=== PATIENT | male | born 1940 | race Caucasian/White ===

== ENCOUNTER → 2016-09-18 | Outpatient (REF) | payer MEDICARE, OTHER ==
[~2016-09-18] MED LIST: ALFU10TA2 PO; CRAN125T PO; DOXE25CA PO; FINA5TAB2 PO; LOSA100T PO; METF500T4 PO; MULT1TAB10 PO
== END ==
LOC: M LABDRAWP 15:41 → M LABDRAW1 15:41
PROVIDERS: ATTEND Urology
DX: Z08 Encounter for follow-up examination after completed treatment for malignant neoplasm (principal); Z85.46 Personal history of malignant neoplasm of prostate

== ENCOUNTER → 2016-09-22 | Outpatient (CLI) | payer MEDICARE, BC, OTHER ==
[~2016-09-22] VITALS: Ht 180.3 cm; Wt 103.4 kg
[~2016-09-22] MED LIST changes: +LIDOCAINE 2% INJ 100 MG/5 ML SDV (FOR ANES.) As Ordered ONE; +NS 1,000 ML IV SCH; +PROPOFOL 500 MG/50 ML VIAL As Ordered ONE
--- NOTE | 2016-09-22 08:02 | ROOR ---
Patient Name: Braulio Son Procedure Date: 09/22/2016 7:32 AM Date of : 1940 Age: 75 Room: [facility] Gender: Male Note Status: Finalized Procedure: Colonoscopy to Cecum + Biopsy Polypectomy + APC Indications: Screening for colorectal malignant neoplasm, Last colonoscopy: 2005 Providers: Uday Lawson MD Referring MD: Sergey Braun MD Requesting Provider: Medicines: Monitored Anesthesia Care Complications: No immediate complications. Procedure: Pre-Anesthesia Assessment: - The heart rate, respiratory rate, oxygen saturations, blood pressure, adequacy of pulmonary ventilation, and response to care were monitored throughout the procedure. The Colonoscope was introduced through the anus and advanced to the cecum, identified by appendiceal orifice and ileocecal valve. The colonoscopy was performed without difficulty. The patient tolerated the procedure well. The quality of the bowel preparation was excellent. Findings: The perianal and digital rectal examinations were normal. Non-bleeding internal hemorrhoids were found during retroflexion. The hemorrhoids were small and Grade I (internal hemorrhoids that do not prolapse). Scattered small-mouthed diverticula were found in the recto-sigmoid colon, sigmoid colon and descending colon. Localized moderate inflammation characterized by adherent blood, altered vascularity, erythema and friability was found in the rectum. Coagulation for hemostasis using argon plasma at 0.8 liters/minute and 30 burk was successful. A small polyp was found in the hepatic flexure. The polyp was sessile. The polyp was removed with a jumbo cold forceps. Resection and retrieval were complete. A small polyp was found in the splenic flexure. The polyp was sessile. The polyp was removed with a jumbo cold forceps. Resection and retrieval were complete. A small polyp was found at 30 cm proximal to the anus. The polyp was sessile. The polyp was removed with a jumbo cold forceps. Resection and retrieval were complete. The exam was otherwise without abnormality on direct and retroflexion views. Impression: - Non-bleeding internal hemorrhoids. - Diverticulosis in the recto-sigmoid colon, in the sigmoid colon and in the descending colon. 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 Treated with argon plasma coagulation (APC). - One small polyp at the hepatic flexure, removed with a jumbo cold forceps. Resected and retrieved. - One small polyp at the splenic flexure, removed with a jumbo cold forceps. Resected and retrieved. - One small polyp at 30 cm proximal to the anus, removed with a jumbo cold forceps. Resected and retrieved. - The examination was otherwise normal on direct and retroflexion views. - The exam was otherwise normal to the cecum. Recommendation: - Patient has a contact number available for emergencies. The signs and symptoms of potential delayed complications were discussed with the patient. Return to normal activities tomorrow. Written discharge instructions were provided to the patient. - High fiber diet. - Discharge patient to home. - Continue present medications. - Await pathology results. - Telephone GI clinic for pathology results in 1 week. - Repeat colonoscopy for surveillance based on pathology results. - Return to referring physician. - Check Portal Online for Path Results.([email or web address]) Uday Lawson MD Uday Lawson MD 09/22/2016 8:02:21 AM This report has been signed electronically. Number of Addenda: 0 Note Initiated On: 09/22/2016 7:32 AM Estimated Blood Loss: Estimated blood loss: none.
[2016-09-22 08:15] VITALS: BP 139/72
== END ==
LOC: M OPP 06:47
PROVIDERS: ATTEND Internal Medicine Gastroenterology
DX: Z12.11 Encounter for screening for malignant neoplasm of colon (principal); D12.3 Benign neoplasm of transverse colon; K62.7 Radiation proctitis; K64.0 First degree hemorrhoids; K57.30 Diverticulosis of large intestine without perforation or abscess without bleeding; Z85.46 Personal history of malignant neoplasm of prostate; Z85.51 Personal history of malignant neoplasm of bladder; Z92.3 Personal history of irradiation; E11.9 Type 2 diabetes mellitus without complications; I10 Essential (primary) hypertension; Z79.84 Long term (current) use of oral hypoglycemic drugs; Z79.899 Other long term (current) drug therapy

== ENCOUNTER → 2016-10-07 | Outpatient (REF) | payer MEDICARE, OTHER ==
[~2016-10-07] MED LIST changes: -LIDOCAINE 2% INJ 100 MG/5 ML SDV (FOR ANES.) As Ordered ONE; -NS 1,000 ML IV SCH; -PROPOFOL 500 MG/50 ML VIAL As Ordered ONE
[2016-10-07 12:03] LABS: MEAN CORPUSCULAR HEMOGLOBIN 30.8 pg (27.0-33.0); MEAN CORPUSCULAR HGB CONC 34.1 g/dl (32.0-36.5); MEAN CORPUSCULAR VOLUME 90.2 fl (80.0-96.0); RED CELL DISTRIBUTION WIDTH 14.5 % (11.5-14.5); WHITE BLOOD COUNT 3.3 K/mm3 (4.0-10.0)
[2016-10-07 12:29] LABS: ALBUMIN 3.2 GM/DL (3.2-5.2); ALBUMIN/GLOBULIN RATIO 0.84 (1.00-1.93); ALKALINE PHOSPHATASE 74 U/L (45-117); ALT/SGPT 39 U/L (12-78); ANION GAP 9 MEQ/L (8-16); AST/SGOT 46 U/L (15-37); BILIRUBIN,TOTAL 0.7 MG/DL (0.2-1.0); BLOOD UREA NITROGEN 21 MG/DL (7-18); CALCIUM LEVEL 9.7 MG/DL (8.8-10.2); CARBON DIOXIDE LEVEL 25 MEQ/L (21-32); CHLORIDE LEVEL 107 MEQ/L (98-107); CREATININE FOR GFR 1.08 MG/DL (0.70-1.30); GLOMERULAR FILTRATION RATE > 60.0 (>42); GLUCOSE, FASTING 141 MG/DL (83-110); POTASSIUM SERUM 3.8 MEQ/L (3.5-5.1); SODIUM LEVEL 141 MEQ/L (136-145)
== END ==
LOC: M SFHCPLAZ 09:03
PROVIDERS: ATTEND Internal Medicine
DX: D69.6 Thrombocytopenia, unspecified (principal); I10 Essential (primary) hypertension; E11.29 Type 2 diabetes mellitus with other diabetic kidney complication

== ENCOUNTER → 2017-04-09 | Outpatient (REF) | payer MEDICARE, OTHER ==
[~2017-04-09] MED LIST changes: -LOSA100T PO; +LOSA100T8 PO
[2017-04-09 12:01] LABS: MEAN CORPUSCULAR HEMOGLOBIN 30.6 pg (27.0-33.0); MEAN CORPUSCULAR HGB CONC 34.1 g/dl (32.0-36.5); MEAN CORPUSCULAR VOLUME 89.6 fl (80.0-96.0); RED CELL DISTRIBUTION WIDTH 13.9 % (11.5-14.5); WHITE BLOOD COUNT 3.1 10^3/uL (4.0-10.0)
[2017-04-09 12:08] LABS: PLATELET COUNT, AUTOMATED 85 10^3/uL (150-450)
[2017-04-09 12:09] LABS: IMMATURE PLATELET FRACTION % 7.2 % (0.0-10.9)
[2017-04-09 12:30] LABS: ALBUMIN 3.4 GM/DL (3.2-5.2); ALBUMIN/GLOBULIN RATIO 0.94 (1.00-1.93); ALKALINE PHOSPHATASE 61 U/L (45-117); ALT/SGPT 36 U/L (12-78); ANION GAP 7 MEQ/L (8-16); AST/SGOT 33 U/L (7-37); BILIRUBIN,TOTAL 0.8 MG/DL (0.2-1.0); BLOOD UREA NITROGEN 20 MG/DL (7-18); CALCIUM LEVEL 10.1 MG/DL (8.8-10.2); CARBON DIOXIDE LEVEL 27 MEQ/L (21-32); CHLORIDE LEVEL 107 MEQ/L (98-107); CHOLESTEROL LEVEL 163 MG/DL (<200); CREATININE FOR GFR 1.03 MG/DL (0.70-1.30); GLOMERULAR FILTRATION RATE > 60.0 (>42); GLUCOSE, FASTING 140 MG/DL (83-110); MAGNESIUM LEVEL 1.8 MG/DL (1.8-2.4); POTASSIUM SERUM 3.9 MEQ/L (3.5-5.1); SODIUM LEVEL 141 MEQ/L (136-145); TRIGLYCERIDES LEVEL 103 MG/DL (<150)
== END ==
LOC: M SFHCPLAZ 08:55
PROVIDERS: ATTEND Internal Medicine
DX: D69.6 Thrombocytopenia, unspecified (principal); E11.29 Type 2 diabetes mellitus with other diabetic kidney complication; I10 Essential (primary) hypertension; E78.00 Pure hypercholesterolemia, unspecified

== ENCOUNTER → 2017-09-29 | Outpatient (REF) | payer MEDICARE, OTHER ==
[2017-09-29 12:43] LABS: HEMATOCRIT 34.2 % (42.0-52.0); HEMOGLOBIN 11.5 g/dl (13.5-17.5); MEAN CORPUSCULAR HEMOGLOBIN 29.8 pg (27.0-33.0); MEAN CORPUSCULAR HGB CONC 33.6 g/dl (32.0-36.5); MEAN CORPUSCULAR VOLUME 88.6 fl (80.0-96.0); RED BLOOD COUNT 3.86 10^6/uL (4.30-6.10); RED CELL DISTRIBUTION WIDTH 14.7 % (11.5-14.5); WHITE BLOOD COUNT 2.9 10^3/uL (4.0-10.0)
[2017-09-29 12:48] LABS: IMMATURE PLATELET FRACTION % 5.8 % (0.0-10.9); PLATELET COUNT, AUTOMATED 85 10^3/uL (150-450); PLATELET F 85
[2017-09-29 13:27] LABS: ALBUMIN 3.3 GM/DL (3.2-5.2); ALBUMIN/GLOBULIN RATIO 0.85 (1.00-1.93); ALKALINE PHOSPHATASE 64 U/L (45-117); ALT/SGPT 37 U/L (12-78); ANION GAP 5 MEQ/L (8-16); AST/SGOT 43 U/L (7-37); BILIRUBIN,TOTAL 0.6 MG/DL (0.2-1.0); BLOOD UREA NITROGEN 19 MG/DL (7-18); CALCIUM LEVEL 10.2 MG/DL (8.8-10.2); CARBON DIOXIDE LEVEL 27 MEQ/L (21-32); CHLORIDE LEVEL 112 MEQ/L (98-107); CREATININE FOR GFR 0.96 MG/DL (0.70-1.30); GLOMERULAR FILTRATION RATE > 60.0 (>42); GLUCOSE, FASTING 149 MG/DL (70-100); MAGNESIUM LEVEL 1.8 MG/DL (1.8-2.4); SODIUM LEVEL 144 MEQ/L (136-145); TOTAL PROTEIN 7.2 GM/DL (6.4-8.2)
[2017-09-29 13:49] LABS: MAU/CREAT RATIO 207.3 MCG/MG (0.0-30.0)
[2017-09-29 14:08] LABS: ESTIMATED AVERAGE GLUCOSE 160 MG/DL (60-110); HEMOGLOBIN A1c 7.2 %
== END ==
LOC: M SFHCPLAZ 09:10
DX: D69.6 Thrombocytopenia, unspecified (principal); I10 Essential (primary) hypertension; E11.29 Type 2 diabetes mellitus with other diabetic kidney complication
CPT/HCPCS: 83735

== ENCOUNTER → 2018-04-08 | Outpatient (REF) | payer MEDICARE, OTHER ==
[2018-04-08 14:04] LABS: APPEARANCE, URINE MANUAL HAZY (CLEAR); COLOR, URINE MANUAL YELLOW (YELLOW); PROTEIN, URINE MANUAL TRACE mg/dL (NEGATIVE)
[2018-04-08 14:05] LABS: BILIRUBIN, URINE MANUAL NEGATIVE (NEGATIVE); BLOOD URINE MANUAL POSITIVE (NEGATIVE); GLUCOSE, URINE (UA) MANUAL NEGATIVE (NEGATIVE); KETONE, URINE MANUAL NEGATIVE (NEGATIVE); LEUKOCYTE ESTERASE, URINE MAN TRACE (NEGATIVE); MICROSCOPIC INDICATED? MAN YES (NO); NITRITE, URINE MANUAL NEGATIVE (NEGATIVE); UROBILINOGEN, URINE MANUAL NORMAL (NORMAL)
[2018-04-08 14:12] LABS: ALBUMIN 3.4 GM/DL (3.2-5.2); ALBUMIN/GLOBULIN RATIO 0.89 (1.00-1.93); ALKALINE PHOSPHATASE 72 U/L (45-117); ALT/SGPT 50 U/L (12-78); ANION GAP 3 MEQ/L (8-16); AST/SGOT 59 U/L (7-37); BILIRUBIN,TOTAL 0.6 MG/DL (0.2-1.0); BLOOD UREA NITROGEN 20 MG/DL (7-18); CALCIUM LEVEL 10.1 MG/DL (8.8-10.2); CARBON DIOXIDE LEVEL 29 MEQ/L (21-32); CHLORIDE LEVEL 105 MEQ/L (98-107); CHOLESTEROL LEVEL 151 MG/DL (<200); CHOLESTEROL RISK RATIO 2.559 (<5); CREATININE FOR GFR 0.96 MG/DL (0.70-1.30); GLOMERULAR FILTRATION RATE > 60.0 (>42); GLUCOSE, FASTING 140 MG/DL (70-100); HDL CHOLESTEROL 59 MG/DL (>40); LDL CHOLESTEROL 74 MG/DL (<100); MAGNESIUM LEVEL 2.1 MG/DL (1.8-2.4); NON-HDL-C 92 MG/DL; SODIUM LEVEL 137 MEQ/L (136-145); TOTAL PROTEIN 7.2 GM/DL (6.4-8.2); TRIGLYCERIDES LEVEL 92 MG/DL (<150)
[2018-04-08 14:20] LABS: HEMOGLOBIN 11.6 g/dl (13.5-17.5); MEAN CORPUSCULAR HGB CONC 33.1 g/dl (32.0-36.5); MEAN CORPUSCULAR VOLUME 90.4 fl (80.0-96.0); RED BLOOD COUNT 3.87 10^6/uL (4.30-6.10); RED CELL DISTRIBUTION WIDTH 14.1 % (11.5-14.5); WHITE BLOOD COUNT 3.2 10^3/uL (4.0-10.0)
[2018-04-08 14:30] LABS: PLATELET COUNT, AUTOMATED 86 10^3/uL (150-450)
[2018-04-08 14:32] LABS: IMMATURE PLATELET FRACTION % 7.5 % (0.0-10.9)
[2018-04-08 14:34] LABS: RBC, URINE 40-50 /hpf (0-3); SQUAMOUS EPITHELIAL CELL URINE SMALL AMOUNT /hpf (SMALL AMT); WBC, URINE 0-1 /hpf (0-3)
[2018-04-08 14:35] LABS: MICROSCOPIC EXAM PERFORMED; TRIPLE PHOSPHATE CRYSTAL,URINE SMALL AMOUNT /hpf
[2018-04-08 17:08] LABS: MAU/CREAT RATIO 118.6 MCG/MG (0.0-30.0)
[2018-04-08 19:07] LABS: ESTIMATED AVERAGE GLUCOSE 143 MG/DL (60-110); HEMOGLOBIN A1c 6.6 %
[2018-04-08 19:35] LABS: BACTERIA, URINE NONE SEEN; HYALINE CAST, URINE NONE SEEN /lpf (0-1)
== END ==
LOC: M SFHCPLAZ 08:49
DX: D69.6 Thrombocytopenia, unspecified (principal); I10 Essential (primary) hypertension; E11.29 Type 2 diabetes mellitus with other diabetic kidney complication; E78.00 Pure hypercholesterolemia, unspecified
CPT/HCPCS: 83735

== ENCOUNTER → 2018-09-23 | Outpatient (REF) | payer MEDICARE, OTHER | LOC: M LABDRAWP 15:48 | PROVIDERS: ATTEND Urology | DX: Z85.46 Personal history of malignant neoplasm of prostate (principal) ==

== ENCOUNTER 2018-10-01 20:39 | Emergency (ER) | payer MEDICARE, BC, OTHER ==
[~2018-10-01] VITALS: Ht 180.3 cm; Wt 102.5 kg
[2018-10-01] MEDS ORDERED: CIPR500T3 (20:46)
[2018-10-01] MEDS ORDERED: LIDOCAINE 2% 5ML JELLY UROJET TOP ONE (21:00)
[2018-10-01 23:23] LABS: BASO % 0.8 % (0.0-1.0); EOS # 0.1 10^3/uL (0.0-0.50); EOS % 3.9 % (0.0-3.0); HEMATOCRIT 30.7 % (42.0-52.0); HEMOGLOBIN 10.5 g/dl (13.5-17.5); LYMPH # 0.3 10^3/uL (1.5-4.5); LYMPH % 8.6 % (24.0-44.0); MEAN CORPUSCULAR HEMOGLOBIN 30.2 pg (27.0-33.0); MEAN CORPUSCULAR HGB CONC 34.2 g/dl (32.0-36.5); MEAN CORPUSCULAR VOLUME 88.2 fl (80.0-96.0); MONO # 0.3 10^3/uL (0.0-0.8); MONO % 9.2 % (0.0-5.0); NEUTROPHILS # 2.8 10^3/uL (1.8-7.7); NEUTROPHILS % 77.2 % (36.0-66.0); RED BLOOD COUNT 3.48 10^6/uL (4.30-6.10); WHITE BLOOD COUNT 3.6 10^3/uL (4.0-10.0)
[2018-10-01 23:29] LABS: PLATELET COUNT, AUTOMATED 89 10^3/uL (150-450)
[2018-10-01 23:35] LABS: INR 1.24; PROTHROMBIN TIME 15.8 SECONDS (12.1-14.4)
[2018-10-01 23:36] LABS: PARTIAL THROMBOPLASTIN TIME 37.4 SECONDS (25.4-37.6)
[2018-10-01 23:49] LABS: BLOOD UREA NITROGEN 22 MG/DL (7-18); CALCIUM LEVEL 9.8 MG/DL (8.8-10.2); CARBON DIOXIDE LEVEL 24 MEQ/L (21-32); CHLORIDE LEVEL 107 MEQ/L (98-107); CREATININE FOR GFR 1.05 MG/DL (0.70-1.30); GLOMERULAR FILTRATION RATE > 60.0 (>42); GLUCOSE, FASTING 142 MG/DL (70-100); POTASSIUM SERUM 3.9 MEQ/L (3.5-5.1); SODIUM LEVEL 138 MEQ/L (136-145)
[2018-10-01] MEDS ORDERED: ISOVUE-370 76% 100ML VIAL (Q9967) As Ordered ONE (23:49)
--- NOTE | 2018-10-02 00:48 | REPVR ---
EXAM: CT Pelvis With Contrast EXAM DATE/TIME: 10/01/2018 9:59 PM CLINICAL HISTORY: 77 years old, male; Signs and symptoms; Bladder; Hematuria; Prior surgery; Surgery date: 6+ months; Additional info: Urinary retention, gross hematuria, HX bladder and prostate TECHNIQUE: Imaging protocol: Axial computed tomography images of the pelvis with intravenous contrast. Coronal and sagittal reformatted images were created and reviewed. Radiation optimization: All CT scans at this facility use at least one of these dose optimization techniques: automated exposure control; mA and/or kV adjustment per patient size (includes targeted exams where dose is matched to clinical indication); or iterative reconstruction. Contrast material: ISO; Contrast volume: 100 ml; Contrast route: AC; COMPARISON: No relevant prior studies available. FINDINGS: Stomach and bowel: Extensive diverticulosis of the visualized colon. No evidence of acute diverticulitis. Appendix: No evidence of appendicitis. Bladder: Urinary bladder is contracted around Garcia balloon catheter. Reproductive: Brachytherapy seeds in the prostate. Intraperitoneal space: Unremarkable. No free air. No significant fluid collection. Lymph nodes: Unremarkable. No enlarged lymph nodes. Bones/joints: Degenerative changes in the bilateral hips Degenerative changes in the bilateral sacroiliac joints. Multilevel degenerative disease of the hypertrophy of the lower lumbar spine. Soft tissues: Unremarkable. IMPRESSION: Urinary bladder is contracted around Garcia balloon catheter. Brachytherapy seeds in the prostate. Extensive diverticulosis of the visualized colon. No evidence of acute diverticulitis. Electronically signed by: Tyler Rubio On 10/02/2018 00:47:55 AM
[2018-10-02 01:43] VITALS: BP 113/56
== END 2018-10-02 01:45 | disposition home or self-care (01) ==
LOC: M ED 20:39
DX: N40.1 Benign prostatic hyperplasia with lower urinary tract symptoms (principal); R33.9 Retention of urine, unspecified; R31.0 Gross hematuria; C61 Malignant neoplasm of prostate; Z85.51 Personal history of malignant neoplasm of bladder; Z79.899 Other long term (current) drug therapy; Z79.84 Long term (current) use of oral hypoglycemic drugs; Z79.2 Long term (current) use of antibiotics
CPT/HCPCS: 51702; 72193; 80048; 81001; 85025; 85049; 85055; 85610; 85730; 99284; Q9967

== ENCOUNTER 2018-10-02 07:27 | Emergency (ER) | payer MEDICARE, BC, OTHER ==
[~2018-10-02] VITALS: Ht 180.3 cm; Wt 100.4 kg
[~2018-10-02 07:27] MED LIST changes: +CIPR500T3
[2018-10-02] MEDS ORDERED: MORPHINE 4 MG/ML 1ML VIAL/SYRINGE (J2270) IV ONE (08:00)
[2018-10-02] MEDS ORDERED: LIDOCAINE 2% 5ML JELLY UROJET TOP ONE (08:00)
[2018-10-02 08:20] LABS: EOS # 0.1 10^3/uL (0.0-0.50); EOS % 3.9 % (0.0-3.0); HEMATOCRIT 31.3 % (42.0-52.0); HEMOGLOBIN 10.6 g/dl (13.5-17.5); LYMPH # 0.3 10^3/uL (1.5-4.5); MEAN CORPUSCULAR HGB CONC 33.9 g/dl (32.0-36.5); MEAN CORPUSCULAR VOLUME 88.7 fl (80.0-96.0); MONO # 0.2 10^3/uL (0.0-0.8); MONO % 7.6 % (0.0-5.0); NEUTROPHILS # 2.4 10^3/uL (1.8-7.7); NEUTROPHILS % 77.7 % (36.0-66.0); RED BLOOD COUNT 3.53 10^6/uL (4.30-6.10)
[2018-10-02 08:40] LABS: BLOOD UREA NITROGEN 20 MG/DL (7-18); CALCIUM LEVEL 9.8 MG/DL (8.8-10.2); CARBON DIOXIDE LEVEL 24 MEQ/L (21-32); CHLORIDE LEVEL 107 MEQ/L (98-107); CREATININE FOR GFR 1.14 MG/DL (0.70-1.30); GLOMERULAR FILTRATION RATE > 60.0 (>42); GLUCOSE, FASTING 263 MG/DL (70-100); POTASSIUM SERUM 3.5 MEQ/L (3.5-5.1); SODIUM LEVEL 138 MEQ/L (136-145)
[2018-10-02 09:28] LABS: LYMPH % 9.5 % (24.0-44.0); PLATELET COUNT, AUTOMATED 81 10^3/uL (150-450)
[2018-10-02 13:06] VITALS: BP 127/60
--- NOTE | 2018-10-02 13:11 | REP ---
ULTRASOUND URINARY BLADDER: Real-time sonographic evaluation of the urinary bladder performed. Garcia balloon catheter is seen in the bladder lumen. Bladder measures 6.7 x 5.6 x 7.8 cm for a total volume of 155 mL. Soft tissue structure adjacent to the balloon measures 1.7 x 1.5 x 3.5 cm likely a clot. Prostate measures 2.9 x 2.9 x 3.9 cm for a total volume of 17.2 mL. Multiple metallic radiation seeds are seen in the prostate. Electronically Signed by North Perez MD 10/02/2018 03:54 P
== END 2018-10-02 14:04 | disposition home or self-care (01) ==
LOC: M ED 07:27
DX: T83.098A Other mechanical complication of other urinary catheter, initial encounter (principal); Y92.9 Unspecified place or not applicable; Y93.9 Activity, unspecified; R33.9 Retention of urine, unspecified; R31.0 Gross hematuria; E11.9 Type 2 diabetes mellitus without complications; I10 Essential (primary) hypertension; C61 Malignant neoplasm of prostate; Z92.3 Personal history of irradiation; Z79.84 Long term (current) use of oral hypoglycemic drugs; Z79.899 Other long term (current) drug therapy
CPT/HCPCS: 36415; 51703; 76857; 80048; 85025; 96374; 99284; J2270

== ENCOUNTER → 2018-10-08 | Outpatient (REF) | payer MEDICARE, BC, OTHER | LOC: M LAB REF 15:56 | PROVIDERS: ATTEND Urology | DX: R33.9 Retention of urine, unspecified (principal) ==

== ENCOUNTER → 2018-10-13 | Outpatient (REF) | payer MEDICARE, OTHER ==
[2018-10-13 11:08] LABS: APPEARANCE, URINE CLEAR (CLEAR); BACTERIA, URINE AUTO NEGATIVE (NEGATIVE); BILIRUBIN, URINE AUTO NEGATIVE (NEGATIVE); BLOOD, URINE BLOOD NEGATIVE (NEGATIVE); COLOR, URINE YELLOW (YELLOW); GLUCOSE, URINE (UA) AUTO NEGATIVE (NEGATIVE); KETONE, URINE AUTO NEGATIVE (NEGATIVE); LEUKOCYTE ESTERASE, URINE AUTO TRACE (NEGATIVE); MUCUS, URINE SMALL (NEGATIVE); NITRITE, URINE AUTO NEGATIVE (NEGATIVE); PROTEIN, URINE AUTO NEGATIVE (NEGATIVE); RBC, URINE AUTO 7 /HPF (0-3); SPECIFIC GRAVITY URINE AUTO 1.012 (1.002-1.035); SQUAMOUS EPITHELIAL CELL UR AU 0 /HPF (0-6); UROBILINOGEN, URINE AUTO 0.2 mg/dL (0.0-2.0); WBC, URINE AUTO 5 /HPF (0-3)
[2018-10-13 11:09] LABS: HEMATOCRIT 31.7 % (42.0-52.0); HEMOGLOBIN 10.5 g/dl (13.5-17.5); MEAN CORPUSCULAR HEMOGLOBIN 29.4 pg (27.0-33.0); MEAN CORPUSCULAR HGB CONC 33.1 g/dl (32.0-36.5); MEAN CORPUSCULAR VOLUME 88.8 fl (80.0-96.0); PLATELET COUNT, AUTOMATED 118 10^3/uL (150-450); RED BLOOD COUNT 3.57 10^6/uL (4.30-6.10); WHITE BLOOD COUNT 3.4 10^3/uL (4.0-10.0)
[2018-10-13 11:32] LABS: HEMOGLOBIN A1c 6.5 %
[2018-10-13 11:33] LABS: ALBUMIN 3.1 GM/DL (3.2-5.2); CALCIUM LEVEL 9.5 MG/DL (8.8-10.2); CREATININE FOR GFR 1.28 MG/DL (0.70-1.30); FOLATE 14.4 NG/ML; GLOMERULAR FILTRATION RATE 58.2 (>42); MAGNESIUM LEVEL 2.3 MG/DL (1.8-2.4); POTASSIUM SERUM 4.3 MEQ/L (3.5-5.1); TOTAL PROTEIN 7.2 GM/DL (6.4-8.2)
[2018-10-13 12:40] LABS: CREATININE, URINE 87.7 MG/DL; MALB URINE SIEMENS 70.3 MG/L; MAU/CREAT RATIO 80.1 MCG/MG (0.0-30.0)
== END ==
LOC: M SFHCPLAZ 08:58
PROVIDERS: ATTEND Internal Medicine
DX: D69.6 Thrombocytopenia, unspecified (principal); I10 Essential (primary) hypertension; E11.29 Type 2 diabetes mellitus with other diabetic kidney complication; R31.9 Hematuria, unspecified

== ENCOUNTER 2019-02-17 21:34 | Emergency (ER) | payer MEDICARE, BC, OTHER ==
[~2019-02-17] VITALS: Ht 180.3 cm; Wt 98.2 kg
[2019-02-17 21:34] VITALS: BP 167/73
[~2019-02-17 21:34] MED LIST changes: +METF-791 PO; -METF500T4 PO
[2019-02-17] MEDS ORDERED: LIDOCAINE 2% 5ML JELLY UROJET TOP ONE (23:00)
--- NOTE | 2019-02-18 09:33 | ER ---
DATE OF CONSULTATION: 02/18/2019 CONCLUSIONS: 1. Urinary retention with bladder outlet obstruction from presumed prior radiation therapy for prostate cancer. 2. History of adenocarcinoma of the prostate post brachytherapy and extraluminal radiation therapy. 3. History of transitional cell carcinoma of the bladder. 4. Recent gross hematuria undergoing cystoscopy on 02/17/2019 showing new development of bladder tumor. RECOMMENDATION: 1. I was able to pass a 16 [place] Garcia catheter after placing an filiform catheter of the [place] type with some difficulty in the bladder. Initial attempt to pass with 16-[place] Coud catheter in the bladder was not possible due to obstruction. 2. Followup with patient's routine urologist, he is instructed to the care of Garcia catheter, which is to remain in place until then. DISCUSSION: The patient is a 78-year-old male with a prior history of external beam radiation therapy and brachytherapy for prostate cancer approximately 10 years ago. He has an interval developed of what appears to be, transitional cell carcinoma of the bladder. These were managed with resection and intravesical therapy. He has had difficulty urinating for the last several days and has had gross hematuria. On 02/17/2019, he underwent cystoscopy in the office at his local urologist in [place]. Since then, he developed urinary retention and presented to the emergency room here. Attempts at placement of a Garcia catheter was not successful. I was asked to see the patient in the emergency room. PROCEDURE NOTE: Patient's penis was prepped with Betadine. An attempt was made to pass a 16-[place] Coud Garcia catheter in the bladder, which was not possible. A filiform catheter of the [place] type was advanced with some difficulty into the bladder and dilation was carried out to #18-[place] using the followers. An attempt to pass the 16-[place] Garcia catheter over the guidewire was not possible. The catheter was loaded over a catheter guide and this was introduced over the guidewire into the bladder. The balloon was then inflated after clear urine was obtained. The Garcia catheter was left in place after removal of the catheter guide and the guidewire.
== END 2019-02-18 02:09 | disposition home or self-care (01) ==
LOC: M ED 21:34
DX: R31.0 Gross hematuria (principal); R33.9 Retention of urine, unspecified; E11.9 Type 2 diabetes mellitus without complications; I10 Essential (primary) hypertension; Z79.899 Other long term (current) drug therapy

== ENCOUNTER → 2019-03-07 | Outpatient (REF) | payer MEDICARE, OTHER ==
[2019-03-07 12:54] LABS: HEMATOCRIT 31.4 % (42.0-52.0); HEMOGLOBIN 10.2 g/dl (13.5-17.5); MEAN CORPUSCULAR HEMOGLOBIN 29.6 pg (27.0-33.0); MEAN CORPUSCULAR HGB CONC 32.5 g/dl (32.0-36.5); PLATELET COUNT, AUTOMATED 107 10^3/uL (150-450); RED BLOOD COUNT 3.45 10^6/uL (4.30-6.10); WHITE BLOOD COUNT 3.7 10^3/uL (4.0-10.0)
[2019-03-07 13:00] LABS: BLOOD UREA NITROGEN 19 MG/DL (7-18); CALCIUM LEVEL 9.8 MG/DL (8.8-10.2); CARBON DIOXIDE LEVEL 29 MEQ/L (21-32); CHLORIDE LEVEL 105 MEQ/L (98-107); CREATININE FOR GFR 1.06 MG/DL (0.70-1.30); GLOMERULAR FILTRATION RATE > 60.0 (>42); GLUCOSE, FASTING 208 MG/DL (70-100); POTASSIUM SERUM 3.9 MEQ/L (3.5-5.1); SODIUM LEVEL 139 MEQ/L (136-145)
== END ==
LOC: M SFHCPLAZ 08:37
PROVIDERS: ATTEND Internal Medicine
DX: Z01.818 Encounter for other preprocedural examination (principal); Z85.51 Personal history of malignant neoplasm of bladder; I10 Essential (primary) hypertension
CPT/HCPCS: 36415; 80048; 85027; 93005; G0463

== ENCOUNTER → 2019-04-12 | Outpatient (REF) | payer MEDICARE, OTHER ==
[2019-04-12 12:16] LABS: BASO % 0.7 % (0.0-1.0); EOS # 0.2 10^3/uL (0.0-0.5); EOS % 3.9 % (0.0-3.0); HEMATOCRIT 32.9 % (42.0-52.0); HEMOGLOBIN 10.6 g/dl (13.5-17.5); LYMPH # 0.3 10^3/uL (1.5-5.0); LYMPH % 6.6 % (24.0-44.0); MEAN CORPUSCULAR HEMOGLOBIN 28.6 pg (27.0-33.0); MEAN CORPUSCULAR HGB CONC 32.2 g/dl (32.0-36.5); MEAN CORPUSCULAR VOLUME 88.9 fl (80.0-96.0); MONO # 0.4 10^3/uL (0.0-0.8); NEUTROPHILS # 3.7 10^3/uL (1.5-8.5); NEUTROPHILS % 79.6 % (36.0-66.0); PLATELET COUNT, AUTOMATED 144 10^3/uL (150-450); WHITE BLOOD COUNT 4.6 10^3/uL (4.0-10.0)
[2019-04-12 12:26] LABS: APPEARANCE, URINE TURBID (CLEAR); BACTERIA, URINE AUTO 3+ (NEGATIVE); BILIRUBIN, URINE AUTO NEGATIVE (NEGATIVE); BLOOD, URINE BLOOD 1+ (NEGATIVE); COLOR, URINE YELLOW (YELLOW); GLUCOSE, URINE (UA) AUTO NEGATIVE (NEGATIVE); KETONE, URINE AUTO NEGATIVE (NEGATIVE); LEUKOCYTE ESTERASE, URINE AUTO 3+ (NEGATIVE); NITRITE, URINE AUTO NEGATIVE (NEGATIVE); PROTEIN, URINE AUTO 2+ mg/dL (NEGATIVE); RBC, URINE AUTO 79 /HPF (0-3); SPECIFIC GRAVITY URINE AUTO 1.015 (1.002-1.035); SQUAMOUS EPITHELIAL CELL UR AU 0 /HPF (0-6); UROBILINOGEN, URINE AUTO 0.2 mg/dL (0.0-2.0); WBC, URINE AUTO TNTC /HPF (0-3)
[2019-04-12 12:40] LABS: ALBUMIN 3.1 GM/DL (3.2-5.2); ALT/SGPT 36 U/L (12-78); BILIRUBIN,TOTAL 0.7 MG/DL (0.2-1.0); BLOOD UREA NITROGEN 25 MG/DL (7-18); CALCIUM LEVEL 10.6 MG/DL (8.8-10.2); CARBON DIOXIDE LEVEL 28 MEQ/L (21-32); CHLORIDE LEVEL 108 MEQ/L (98-107); CHOLESTEROL LEVEL 150 MG/DL (<200); CHOLESTEROL RISK RATIO 2.307 (<5); CREATININE FOR GFR 1.01 MG/DL (0.70-1.30); GLOMERULAR FILTRATION RATE > 60.0 (>42); GLUCOSE, FASTING 142 MG/DL (70-100); HDL CHOLESTEROL 65 MG/DL (>40); LDL CHOLESTEROL 70 MG/DL (<100); MAGNESIUM LEVEL 1.8 MG/DL (1.8-2.4); NON-HDL-C 85 MG/DL; SODIUM LEVEL 142 MEQ/L (136-145); TOTAL PROTEIN 7.3 GM/DL (6.4-8.2); TRIGLYCERIDES LEVEL 73 MG/DL (<150)
[2019-04-12 13:07] LABS: HEMOGLOBIN A1c 6.9 %
[2019-04-12 13:13] LABS: MAU/CREAT RATIO 398.2 MCG/MG (0.0-30.0)
== END ==
LOC: M SFHCPLAZ 09:04
PROVIDERS: ATTEND Internal Medicine
DX: D69.6 Thrombocytopenia, unspecified (principal); I10 Essential (primary) hypertension; E11.29 Type 2 diabetes mellitus with other diabetic kidney complication; E78.00 Pure hypercholesterolemia, unspecified; Z85.51 Personal history of malignant neoplasm of bladder

== ENCOUNTER 2019-05-16 19:16 | Emergency (ER) | payer MEDICARE, BC, OTHER ==
[~2019-05-16] VITALS: Ht 180.3 cm; Wt 93.6 kg
[~2019-05-16 19:16] MED LIST changes: -ALFU10TA2 PO; +ALFU10TA3 PO; +KEFL500C17 PO
[2019-05-16] MEDS ORDERED: CEPH500C (19:23)
[2019-05-16] MEDS ORDERED: LIDOCAINE 2% 5ML JELLY UROJET TOP ONE (19:45)
[2019-05-16 21:30] VITALS: BP 148/70
== END 2019-05-16 21:32 | disposition home or self-care (01) ==
LOC: M ED 19:16
DX: R33.9 Retention of urine, unspecified (principal); R31.9 Hematuria, unspecified; N40.1 Benign prostatic hyperplasia with lower urinary tract symptoms; Z85.51 Personal history of malignant neoplasm of bladder; Z85.46 Personal history of malignant neoplasm of prostate; Z79.899 Other long term (current) drug therapy; Z79.2 Long term (current) use of antibiotics; Z79.84 Long term (current) use of oral hypoglycemic drugs

== ENCOUNTER 2019-05-22 02:48 | Emergency (ER) | payer MEDICARE, BC, OTHER ==
[~2019-05-22] VITALS: Ht 180.3 cm; Wt 95.4 kg
[~2019-05-22 02:48] MED LIST changes: +CEPH500C
[2019-05-22] MEDS ORDERED: IRON325T2 PO (03:37)
[2019-05-22 08:57] VITALS: BP 133/60
[2019-05-22] MEDS ORDERED: LOSARTAN 50 MG TAB PO ONE (09:15)
[2019-05-22] MEDS ORDERED: hydroCHLOROthiazide 12.5 MG CAPSULE PO ONE (09:15)
[2019-05-22 09:22] VITALS: BP 133/60
== END 2019-05-22 12:02 | disposition home or self-care (01) ==
LOC: M ED 02:48
DX: R31.9 Hematuria, unspecified (principal); E11.9 Type 2 diabetes mellitus without complications; I10 Essential (primary) hypertension; Z85.51 Personal history of malignant neoplasm of bladder; Z79.899 Other long term (current) drug therapy

== ENCOUNTER → 2019-06-13 | Outpatient (REF) | payer MEDICARE, OTHER ==
[~2019-06-13] MED LIST changes: +IRON325T2 PO
[2019-06-13 16:23] LABS: HEMATOCRIT 28.2 % (42.0-52.0); MEAN CORPUSCULAR HEMOGLOBIN 28.2 pg (27.0-33.0); MEAN CORPUSCULAR HGB CONC 31.9 g/dl (32.0-36.5); MEAN CORPUSCULAR VOLUME 88.4 fl (80.0-96.0); PLATELET COUNT, AUTOMATED 122 10^3/uL (150-450); RED BLOOD COUNT 3.19 10^6/uL (4.30-6.10); WHITE BLOOD COUNT 2.8 10^3/uL (4.0-10.0)
[2019-06-13 16:30] LABS: BLOOD UREA NITROGEN 20 MG/DL (7-18); CALCIUM LEVEL 9.7 MG/DL (8.8-10.2); CARBON DIOXIDE LEVEL 26 MEQ/L (21-32); CHLORIDE LEVEL 107 MEQ/L (98-107); CREATININE FOR GFR 0.96 MG/DL (0.70-1.30); GLOMERULAR FILTRATION RATE > 60.0 (>42); GLUCOSE, FASTING 181 MG/DL (70-100); POTASSIUM SERUM 3.8 MEQ/L (3.5-5.1); SODIUM LEVEL 140 MEQ/L (136-145)
[2019-06-13 16:38] LABS: APPEARANCE, URINE CLEAR (CLEAR); BACTERIA, URINE AUTO 2+ (NEGATIVE); BILIRUBIN, URINE AUTO NEGATIVE (NEGATIVE); BLOOD, URINE BLOOD 1+ (NEGATIVE); COLOR, URINE YELLOW (YELLOW); GLUCOSE, URINE (UA) AUTO NEGATIVE (NEGATIVE); KETONE, URINE AUTO NEGATIVE (NEGATIVE); LEUKOCYTE ESTERASE, URINE AUTO 3+ (NEGATIVE); MUCUS, URINE SMALL (NEGATIVE); NITRITE, URINE AUTO POSITIVE (NEGATIVE); PROTEIN, URINE AUTO NEGATIVE (NEGATIVE); RBC, URINE AUTO 15 /HPF (0-3); SPECIFIC GRAVITY URINE AUTO 1.011 (1.002-1.035); SQUAMOUS EPITHELIAL CELL UR AU 0 /HPF (0-6); UROBILINOGEN, URINE AUTO 0.2 mg/dL (0.0-2.0); WBC, URINE AUTO 43 /HPF (0-3)
== END ==
LOC: M SFHCPLAZ 13:49
PROVIDERS: ATTEND Internal Medicine
DX: Z01.818 Encounter for other preprocedural examination (principal); N40.1 Benign prostatic hyperplasia with lower urinary tract symptoms
CPT/HCPCS: 36415; 80048; 81001; 85027; 87088; 87186; 93005; G0463

== ENCOUNTER 2019-08-20 16:21 | Emergency (ER) | payer MEDICARE, BC, OTHER ==
[~2019-08-20] VITALS: Ht 180.3 cm; Wt 95.4 kg
[2019-08-20] MEDS ORDERED: TOVI4TAB PO (16:31)
[2019-08-20] MEDS ORDERED: CEPHALEXIN 500 MG CAP PO ONE (18:00)
[2019-08-20 18:05] VITALS: BP 149/71
[2019-08-20] MEDS ORDERED: MACR100C43 PO (18:05)
[2019-08-20] MEDS ORDERED: NITROFURANTOIN (MACROBID) 100 MG CAP PO ONE (18:15)
== END 2019-08-20 18:19 | disposition home or self-care (01) ==
LOC: M ED 16:21
DX: N39.0 Urinary tract infection, site not specified (principal); Z87.448 Personal history of other diseases of urinary system; Z85.46 Personal history of malignant neoplasm of prostate; Z85.51 Personal history of malignant neoplasm of bladder; E11.9 Type 2 diabetes mellitus without complications; I10 Essential (primary) hypertension; E78.5 Hyperlipidemia, unspecified; Z92.3 Personal history of irradiation; Z79.84 Long term (current) use of oral hypoglycemic drugs; Z79.899 Other long term (current) drug therapy

== ENCOUNTER → 2020-02-21 | Outpatient (CLI) | payer MEDICARE ==
[~2020-02-21] MED LIST changes: +MACR100C43 PO; -METF-791 PO; +METF-838 PO; +SULF1TAB93; +TOVI4TAB PO
[2020-02-21 13:58] LABS: HEMATOCRIT 34.9 % (42.0-52.0); HEMOGLOBIN 11.1 g/dl (13.5-17.5); MEAN CORPUSCULAR HEMOGLOBIN 28.3 pg (27.0-33.0); MEAN CORPUSCULAR HGB CONC 31.8 g/dl (32.0-36.5); PLATELET COUNT, AUTOMATED 117 10^3/uL (150-450); RED BLOOD COUNT 3.92 10^6/uL (4.30-6.10); WHITE BLOOD COUNT 3.4 10^3/uL (4.0-10.0)
[2020-02-21 14:01] LABS: APPEARANCE, URINE CLOUDY (CLEAR); BACTERIA, URINE AUTO 2+ (NEGATIVE); BILIRUBIN, URINE AUTO NEGATIVE (NEGATIVE); BLOOD, URINE BLOOD 2+ (NEGATIVE); COLOR, URINE YELLOW (YELLOW); GLUCOSE, URINE (UA) AUTO NEGATIVE (NEGATIVE); KETONE, URINE AUTO NEGATIVE (NEGATIVE); LEUKOCYTE ESTERASE, URINE AUTO 3+ (NEGATIVE); NITRITE, URINE AUTO NEGATIVE (NEGATIVE); PROTEIN, URINE AUTO 2+ mg/dL (NEGATIVE); RBC, URINE AUTO 48 /HPF (0-3); SPECIFIC GRAVITY URINE AUTO 1.015 (1.002-1.035); SQUAMOUS EPITHELIAL CELL UR AU 0 /HPF (0-6); UROBILINOGEN, URINE AUTO 0.2 mg/dL (0.0-2.0); WBC, URINE AUTO TNTC /HPF (0-3)
[2020-02-21 14:04] LABS: BLOOD UREA NITROGEN 21 MG/DL (7-18); CALCIUM LEVEL 10.3 MG/DL (8.8-10.2); CARBON DIOXIDE LEVEL 27 MEQ/L (21-32); CHLORIDE LEVEL 108 MEQ/L (98-107); CREATININE FOR GFR 1.08 MG/DL (0.70-1.30); GLOMERULAR FILTRATION RATE > 60.0 (>42); GLUCOSE, FASTING 206 MG/DL (70-100); POTASSIUM SERUM 3.8 MEQ/L (3.5-5.1); SODIUM LEVEL 138 MEQ/L (136-145)
== END ==
LOC: M PLALAB 08:45
PROVIDERS: ATTEND Internal Medicine
DX: Z79.899 Other long term (current) drug therapy (principal)

== ENCOUNTER 2020-03-03 11:01 | Emergency (ER) | payer MEDICARE, BC, OTHER ==
[~2020-03-03] VITALS: Ht 180.3 cm; Wt 95.6 kg
[~2020-03-03 11:01] MED LIST changes: -SULF1TAB93
[2020-03-03 13:40] VITALS: BP 139/67
== END 2020-03-03 13:50 | disposition home or self-care (01) ==
LOC: M ED 11:01
DX: R33.0 Drug induced retention of urine (principal); T48.295A Adverse effect of other drugs acting on muscles, initial encounter; R32 Unspecified urinary incontinence; N39.0 Urinary tract infection, site not specified; Z85.51 Personal history of malignant neoplasm of bladder; Z85.46 Personal history of malignant neoplasm of prostate; E11.9 Type 2 diabetes mellitus without complications; I10 Essential (primary) hypertension; Z92.3 Personal history of irradiation; Z79.899 Other long term (current) drug therapy; Z79.84 Long term (current) use of oral hypoglycemic drugs; Z79.2 Long term (current) use of antibiotics

== ENCOUNTER 2020-03-21 21:47 | Emergency (ER) | payer MEDICARE, BC, OTHER ==
[~2020-03-21] VITALS: Ht 180.3 cm; Wt 95.6 kg
[2020-03-21 21:50] VITALS: BP 168/76
[2020-03-21] MEDS ORDERED: SULF1TAB93 (22:00)
[2020-03-21] MEDS ORDERED: LIDOCAINE 2% 5ML JELLY UROJET TOP ONE (22:15)
== END 2020-03-21 23:27 | disposition home or self-care (01) ==
LOC: M ED 21:47
DX: R33.9 Retention of urine, unspecified (principal); R31.9 Hematuria, unspecified; I25.10 Atherosclerotic heart disease of native coronary artery without angina pectoris; I10 Essential (primary) hypertension; E11.9 Type 2 diabetes mellitus without complications; Z85.51 Personal history of malignant neoplasm of bladder; Z85.46 Personal history of malignant neoplasm of prostate; Z92.3 Personal history of irradiation; Z79.84 Long term (current) use of oral hypoglycemic drugs; Z79.899 Other long term (current) drug therapy

== ENCOUNTER → 2020-04-25 | Outpatient (REF) | payer MEDICARE, OTHER ==
[~2020-04-25] MED LIST changes: +SULF1TAB93
[2020-04-25 10:24] LABS: BASO % 0.9 % (0.0-1.0); EOS # 0.2 10^3/uL (0.0-0.5); EOS % 7.1 % (0.0-3.0); HEMATOCRIT 31.7 % (42.0-52.0); HEMOGLOBIN 10.1 g/dl (13.5-17.5); LYMPH # 0.5 10^3/uL (1.5-5.0); MEAN CORPUSCULAR HGB CONC 31.9 g/dl (32.0-36.5); MEAN CORPUSCULAR VOLUME 87.8 fl (80.0-96.0); MONO # 0.4 10^3/uL (0.0-0.8); MONO % 11.7 % (0.0-5.0); NEUTROPHILS # 2.1 10^3/uL (1.5-8.5); PLATELET COUNT, AUTOMATED 118 10^3/uL (150-450); RED BLOOD COUNT 3.61 10^6/uL (4.30-6.10); WHITE BLOOD COUNT 3.2 10^3/uL (4.0-10.0)
[2020-04-25 11:02] LABS: ALBUMIN 3.1 GM/DL (3.2-5.2); ALT/SGPT 32 U/L (12-78); BILIRUBIN,TOTAL 0.6 MG/DL (0.2-1.0); BLOOD UREA NITROGEN 22 MG/DL (7-18); CALCIUM LEVEL 10.2 MG/DL (8.8-10.2); CARBON DIOXIDE LEVEL 28 MEQ/L (21-32); CHLORIDE LEVEL 107 MEQ/L (98-107); CHOLESTEROL LEVEL 162 MG/DL (<200); CHOLESTEROL RISK RATIO 2.793 (<5); CREATININE FOR GFR 0.97 MG/DL (0.70-1.30); GLOMERULAR FILTRATION RATE > 60.0 (>42); GLUCOSE, FASTING 130 MG/DL (70-100); HDL CHOLESTEROL 58 MG/DL (>40); LDL CHOLESTEROL 85 MG/DL (<100); NON-HDL-C 104 MG/DL; POTASSIUM SERUM 4.4 MEQ/L (3.5-5.1); SODIUM LEVEL 140 MEQ/L (136-145); TOTAL PROTEIN 7.3 GM/DL (6.4-8.2); TRIGLYCERIDES LEVEL 93 MG/DL (<150)
[2020-04-25 11:20] LABS: HEMOGLOBIN A1c 6.5 %
== END ==
LOC: M PLALAB 07:55
PROVIDERS: ATTEND Internal Medicine
DX: D69.6 Thrombocytopenia, unspecified (principal); I10 Essential (primary) hypertension; E11.29 Type 2 diabetes mellitus with other diabetic kidney complication; E78.00 Pure hypercholesterolemia, unspecified

== ENCOUNTER → 2020-05-11 | Outpatient (REF) | payer MEDICARE, OTHER | LOC: M LAB REF 15:59 | PROVIDERS: ATTEND Dermatology | DX: D23.30 Other benign neoplasm of skin of unspecified part of face (principal) ==

== ENCOUNTER → 2020-09-11 | Outpatient (CLI) | payer MEDICARE, OTHER ==
--- NOTE | 2020-09-11 14:23 | REPPI ---
INDICATION: RIB PAIN. COMPARISON: None TECHNIQUE: Bilateral FINDINGS: Multiple views of the bilateral ribs show no fracture or osseous lesion. IMPRESSION: Negative bilateral rib series. <Electronically signed by Champ Rangel > 09/11/20 [id number]
== END ==
LOC: M PLAIMG 13:32
PROVIDERS: ATTEND Internal Medicine
DX: R07.81 Pleurodynia (principal)

== ENCOUNTER → 2020-11-07 | Outpatient (REF) | payer MEDICARE, OTHER ==
[~2020-11-07] MED LIST changes: +BACTDSTA; -SULF1TAB93
[2020-11-07 20:08] LABS: HEMOGLOBIN A1c 6.9 %
== END ==
LOC: M SFHCPLAZ 09:25
PROVIDERS: ATTEND Internal Medicine
DX: E11.29 Type 2 diabetes mellitus with other diabetic kidney complication (principal)
CPT/HCPCS: 36415; 83036; 93005; G0463

== ENCOUNTER → 2020-12-24 | Outpatient (CLI) | payer MEDICARE, BC, OTHER ==
[2020-12-24 10:39] LABS: BASO # 0.1 10^3/uL (0.0-0.2); BASO % 1.5 % (0.0-1.0); EOS # 0.2 10^3/uL (0.0-0.5); EOS % 7.3 % (0.0-3.0); HEMATOCRIT 25.3 % (42.0-52.0); LYMPH # 0.4 10^3/uL (1.5-5.0); LYMPH % 11.9 % (24.0-44.0); MEAN CORPUSCULAR HEMOGLOBIN 27.2 pg (27.0-33.0); MEAN CORPUSCULAR HGB CONC 31.6 g/dl (32.0-36.5); MEAN CORPUSCULAR VOLUME 86.1 fl (80.0-96.0); MONO # 0.4 10^3/uL (0.0-0.8); MONO % 11.3 % (2.0-8.0); NEUTROPHILS # 2.2 10^3/uL (1.5-8.5); PLATELET COUNT, AUTOMATED 167 10^3/uL (150-450); RED BLOOD COUNT 2.94 10^6/uL (4.30-6.10); WHITE BLOOD COUNT 3.3 10^3/uL (4.0-10.0)
[2020-12-24 11:23] LABS: ALBUMIN 2.5 GM/DL (3.2-5.2); ALT/SGPT 37 U/L (12-78); BILIRUBIN,TOTAL 0.6 MG/DL (0.2-1.0); BLOOD UREA NITROGEN 17 MG/DL (7-18); CALCIUM LEVEL 9.4 MG/DL (8.8-10.2); CARBON DIOXIDE LEVEL 24 MEQ/L (21-32); CHLORIDE LEVEL 110 MEQ/L (98-107); GLOMERULAR FILTRATION RATE > 60.0 (>42); GLUCOSE, FASTING 87 MG/DL (70-100); POTASSIUM SERUM 3.8 MEQ/L (3.5-5.1); SODIUM LEVEL 140 MEQ/L (136-145); TOTAL PROTEIN 6.5 GM/DL (6.4-8.2)
== END ==
LOC: M PLALAB 08:22
PROVIDERS: ATTEND Internal Medicine
DX: Z87.448 Personal history of other diseases of urinary system (principal); D64.9 Anemia, unspecified

== ENCOUNTER → 2021-01-11 | Outpatient (CLI) | payer MEDICARE, BC, OTHER ==
--- NOTE | 2021-01-11 08:50 | REP ---
INDICATION: FATTY LIVER, EVAL FOR ASCITES. COMPARISON: Abdomen/pelvis CT dated 05/17/2008. TECHNIQUE: Multiple ultrasonographic images of the abdominal right upper quadrant. FINDINGS: There is a large volume of ascites. There are gallbladder calculi. The gallbladder is incompletely distended. The gallbladder wall is diffusely thickened, nonspecific, secondary to incomplete gallbladder distention, secondary to ascites or combination. There is no intrahepatic or extrahepatic biliary duct dilatation. The common biliary duct measures 3.1 mm in diameter. The hepatic parenchyma is diffusely heterogeneous and the hepatic margin has a nodular appearance. These findings are compatible with cirrhosis. There is a 3.6 cm mass centrally in the hepatic right lobe. There is questionably a thrombus in the right portal vein. The pancreas is obscured by bowel gas. The right kidney is normal size measuring 11.1 x 5.6 x 4.7 cm. There is no right renal calculus, mass, solid mass or cystic mass. IMPRESSION: There is a large volume of ascites throughout the abdomen. Findings are compatible with hepatic cirrhosis. There is a 3.6 cm mass centrally in the hepatic right lobe. Questionable thrombus in the right portal vein. Cholelithiasis. No biliary duct dilatation. Gallbladder wall thickening which is likely secondary to either incomplete distention, ascites or combination. Pancreas is obscured by bowel gas. <Electronically signed by North Bennett > 01/11/21 [id number]
== END ==
LOC: M RAD 07:43
PROVIDERS: ATTEND Internal Medicine
DX: K76.0 Fatty (change of) liver, not elsewhere classified (principal); K80.20 Calculus of gallbladder without cholecystitis without obstruction; R18.8 Other ascites

== ENCOUNTER → 2021-02-07 | Outpatient (CLI) | payer MEDICARE, BC, OTHER ==
[~2021-02-07] MED LIST changes: +COLA100C5 PO; +HYDR-643 PO; +LIDOCAINE 1% MDV 20ML VIAL As Ordered ONE; +LOSA100T50 PO; +SODIUM BICARBONATE 8.4% INJ 50MEQ 50 ML VIAL As Ordered ONE; +SPIR-10 PO
[2021-02-07 09:23] LABS: INR 1.28; PROTHROMBIN TIME 16.4 SECONDS (12.7-14.5)
[2021-02-07 09:24] LABS: PARTIAL THROMBOPLASTIN TIME 38.7 SECONDS (25.9-37.0)
[2021-02-07 10:45] LABS: ASCITES FL COLOR YELLOW (COLORLESS); SOURCE, BODY FLUID ASCITES
[2021-02-07 10:46] LABS: APPEARANCE, BODY FLUID HAZY (CLEAR)
[2021-02-07 10:54] LABS: LDH, BODY FLUID 42 U/L (NOT ESTABLISHED); SOURCE, BODY FLUID GLUCOSE ASCITES; SOURCE, BODY FLUID LDH ASCITES; SOURCE, BODY FLUID TOT PROTEIN ASCITES; TOTAL PROTEIN, BODY FLUID 1.6 G/DL (NOT ESTABLISHED)
[2021-02-07 12:25] VITALS: BP 129/59
--- NOTE | 2021-02-07 14:30 | REP ---
INDICATION: LIVER MASS. COMPARISON: None. TECHNIQUE: The procedure was performed by EMPERATRIZ Ybarra, under the direct supervision of Dr. Galarza. The risks and benefits of the procedure were explained to the patient and an informed consent was obtained both verbally and written. Directly prior to the start of the procedure a formal time-out was completed in the procedure room. FINDINGS: Using ultrasound guidance the right lobe liver mass was localized. The skin was prepped and draped in a sterile fashion. Fifteen mL of buffered lidocaine was used as a local anesthetic. Using ultrasound guidance a 19/20 gauge coaxial needle biopsy system was inserted and advanced into the right lobe liver mass. Six core biopsy specimens were obtained and sent to pathology for further analysis. The patient tolerated the procedure well and there were no immediate complications. After the appropriate amount of monitored convalescence the patient was discharged from the department. IMPRESSION: 1. Ultrasound-guided right lobe liver mass biopsy. <Electronically signed by Rea Cornelius > 02/07/21 1324 <Electronically signed by North Perez > 02/07/21 [id number]
--- NOTE | 2021-02-07 14:30 | REP ---
INDICATION: ASCITES W/ LIVER MASS The patient has a history of ascites COMPARISON: None. TECHNIQUE: The procedure was performed by EMPERATRIZ Ybarra, under the direct supervision of Dr. Perez The risks and benefits of the procedure were explained to the patient and an informed consent was obtained both verbally and written. Directly prior to the start of the procedure a formal time-out was completed in the procedure room. The largest pocket of fluid was localized in the right flank using ultrasound guidance. The skin was prepped and draped in a sterile fashion. Eleven ML of buffered lidocaine was used as a local anesthetic. An 8-[place]vian multi side-hole catheter was inserted using trocar technique. FINDINGS: 3450 mL of yellow ascites was removed in total. 1300 mL was sent to the laboratory for further analysis, and the rest was discarded. The patient tolerated the procedure well and there were no immediate complications. After the appropriate amount of monitored convalescence, the patient was discharged from the department. IMPRESSION: Ultrasound-guided paracentesis with removal of 3400 mL of yellow ascites. <Electronically signed by Rea Cornleius > 02/07/21 1323 <Electronically signed by North Perez > 02/07/21 [id number]
== END ==
LOC: M IRPRO 08:36
PROVIDERS: ATTEND Internal Medicine
DX: C22.9 Malignant neoplasm of liver, not specified as primary or secondary (principal); R18.8 Other ascites; R16.0 Hepatomegaly, not elsewhere classified

== ENCOUNTER 2021-02-15 14:01 | Emergency (ER) | payer MEDICARE, BC, OTHER ==
[~2021-02-15] VITALS: Ht 180.3 cm; Wt 90.3 kg
[~2021-02-15 14:01] MED LIST changes: -HYDR-643 PO; -LIDOCAINE 1% MDV 20ML VIAL As Ordered ONE; -LOSA100T50 PO; -SODIUM BICARBONATE 8.4% INJ 50MEQ 50 ML VIAL As Ordered ONE; -SPIR-10 PO
[2021-02-15 16:44] LABS: BASO # 0.1 10^3/uL (0.0-0.2); EOS # 0.3 10^3/uL (0.0-0.5); EOS % 6.6 % (0.0-3.0); HEMATOCRIT 22.9 % (42.0-52.0); HEMOGLOBIN 7.1 g/dl (13.5-17.5); LYMPH # 0.4 10^3/uL (1.5-5.0); MEAN CORPUSCULAR HEMOGLOBIN 26.5 pg (27.0-33.0); MEAN CORPUSCULAR VOLUME 85.4 fl (80.0-96.0); MONO # 0.5 10^3/uL (0.0-0.8); MONO % 10.2 % (2.0-8.0); NEUTROPHILS # 3.6 10^3/uL (1.5-8.5); NEUTROPHILS % 72.8 % (36.0-66.0); PLATELET COUNT, AUTOMATED 191 10^3/uL (150-450); RED BLOOD COUNT 2.68 10^6/uL (4.30-6.10); WHITE BLOOD COUNT 4.9 10^3/uL (4.0-10.0)
[2021-02-15 17:04] LABS: ALBUMIN 2.3 GM/DL (3.2-5.2); ALT/SGPT 44 U/L (12-78); BILIRUBIN,DIRECT 0.3 MG/DL (0.0-0.2); BILIRUBIN,TOTAL 0.6 MG/DL (0.2-1.0); BLOOD UREA NITROGEN 20 MG/DL (7-18); CALCIUM LEVEL 9.6 MG/DL (8.8-10.2); CARBON DIOXIDE LEVEL 23 MEQ/L (21-32); CHLORIDE LEVEL 108 MEQ/L (98-107); CREATININE FOR GFR 0.95 MG/DL (0.70-1.30); GLOMERULAR FILTRATION RATE > 60.0 (>42); GLUCOSE, FASTING 167 MG/DL (70-100); LIPASE 280 U/L (73-393); SODIUM LEVEL 139 MEQ/L (136-145); TOTAL PROTEIN 6.8 GM/DL (6.4-8.2)
[2021-02-15] MEDS ORDERED: NS 1,000 ML IV ONE (17:05)
[2021-02-15] MEDS ORDERED: ISOVUE-370 76% 100ML VIAL As Ordered ONE (17:20)
[2021-02-15 17:52] LABS: HEMATOCRIT 21.2 % (42.0-52.0); HEMOGLOBIN 6.7 g/dl (13.5-17.5)
[2021-02-15 18:08] VITALS: BP 154/70
[2021-02-15 18:13] LABS: INR 1.31; PARTIAL THROMBOPLASTIN TIME 34.6 SECONDS (25.9-37.0); PROTHROMBIN TIME 16.7 SECONDS (12.7-14.5)
[2021-02-15 18:45] LABS: RSV AMPLIFICATION NEGATIVE (NEGATIVE)
[2021-02-15 21:27] VITALS: BP 158/72
[2021-03-13] MEDS ORDERED: SPIR-10 PO (13:36)
[2021-03-13] MEDS ORDERED: HYDR-643 PO (13:36)
[2021-03-13] MEDS ORDERED: LOSA100T45 PO (13:36)
[2021-04-13] MEDS ORDERED: LOSA50TA28 PO (17:58)
[2021-04-13] MEDS ORDERED: MONT10TA97 PO (17:58)
[2021-05-14] MEDS ORDERED: MIRA3350 PO (11:13)
[2021-05-14] MEDS ORDERED: TRAM50TA2 (11:13)
[2021-05-14] MEDS ORDERED: META28.32 PO (11:13)
[2021-05-14] MEDS ORDERED: PANT20TA6 (11:13)
[2021-05-14] MEDS ORDERED: FURO20TA2 (11:13)
[2021-05-14] MEDS ORDERED: MELA10CA6 PO (11:14)
== END 2021-02-15 21:37 | disposition short-term general hospital (02) ==
LOC: M ED 14:04
DX: N99.538 Other complication of continent stoma of urinary tract (principal); K70.31 Alcoholic cirrhosis of liver with ascites; R16.1 Splenomegaly, not elsewhere classified; R60.1 Generalized edema; K80.20 Calculus of gallbladder without cholecystitis without obstruction; N13.30 Unspecified hydronephrosis; K44.9 Diaphragmatic hernia without obstruction or gangrene; E11.9 Type 2 diabetes mellitus without complications; I10 Essential (primary) hypertension; E78.5 Hyperlipidemia, unspecified; Z85.51 Personal history of malignant neoplasm of bladder; Z85.46 Personal history of malignant neoplasm of prostate; D69.6 Thrombocytopenia, unspecified; I25.10 Atherosclerotic heart disease of native coronary artery without angina pectoris; Z79.899 Other long term (current) drug therapy
CPT/HCPCS: 36415; 36430; 74177; 80047; 80048; 80076; 83690; 85014; 85018; 85025; 85610; 85730; 86850; 86900; 86901; 86920; 87631; 93041; 99291; 99292; P9016; Q9967

== ENCOUNTER → 2021-02-22 | Outpatient (CLI) | payer MEDICARE, BC, OTHER ==
[2021-02-22 10:34] LABS: HEMATOCRIT 25.2 % (42.0-52.0); HEMOGLOBIN 8.1 g/dl (13.5-17.5); MEAN CORPUSCULAR HEMOGLOBIN 27.8 pg (27.0-33.0); MEAN CORPUSCULAR HGB CONC 32.1 g/dl (32.0-36.5); MEAN CORPUSCULAR VOLUME 86.6 fl (80.0-96.0); PLATELET COUNT, AUTOMATED 172 10^3/uL (150-450); RED BLOOD COUNT 2.91 10^6/uL (4.30-6.10); WHITE BLOOD COUNT 3.7 10^3/uL (4.0-10.0)
== END ==
LOC: M PLALAB 02-21 10:11
PROVIDERS: ATTEND Internal Medicine
DX: D62 Acute posthemorrhagic anemia (principal)

== ENCOUNTER → 2021-03-05 | Outpatient (CLI) | payer MEDICARE, BC, OTHER ==
[~2021-03-05] MED LIST changes: +HYDR-643 PO; +LOSA100T50 PO; +SPIR-10 PO
[2021-03-05 18:11] LABS: BASO # 0.1 10^3/uL (0.0-0.2); BASO % 1.1 % (0.0-1.0); EOS # 0.2 10^3/uL (0.0-0.5); EOS % 5.5 % (0.0-3.0); HEMATOCRIT 25.4 % (42.0-52.0); HEMOGLOBIN 8.1 g/dl (13.5-17.5); LYMPH # 0.4 10^3/uL (1.5-5.0); MEAN CORPUSCULAR HEMOGLOBIN 27.8 pg (27.0-33.0); MEAN CORPUSCULAR HGB CONC 31.9 g/dl (32.0-36.5); MEAN CORPUSCULAR VOLUME 87.3 fl (80.0-96.0); MONO # 0.6 10^3/uL (0.0-0.8); MONO % 13.8 % (2.0-8.0); NEUTROPHILS # 3.1 10^3/uL (1.5-8.5); NEUTROPHILS % 71.4 % (36.0-66.0); PLATELET COUNT, AUTOMATED 197 10^3/uL (150-450); RED BLOOD COUNT 2.91 10^6/uL (4.30-6.10); WHITE BLOOD COUNT 4.4 10^3/uL (4.0-10.0)
[2021-03-05 18:21] LABS: INR 1.13; PROTHROMBIN TIME 14.9 SECONDS (12.7-14.5)
[2021-03-05 20:11] LABS: BLOOD UREA NITROGEN 24 MG/DL (7-18); CALCIUM LEVEL 10.3 MG/DL (8.8-10.2); CARBON DIOXIDE LEVEL 26 MEQ/L (21-32); CHLORIDE LEVEL 106 MEQ/L (98-107); CREATININE FOR GFR 1.06 MG/DL (0.70-1.30); GLOMERULAR FILTRATION RATE > 60.0 (>42); GLUCOSE, FASTING 136 MG/DL (70-100); POTASSIUM SERUM 4.4 MEQ/L (3.5-5.1); SODIUM LEVEL 137 MEQ/L (136-145)
[2021-03-05 20:12] LABS: ALBUMIN 2.4 GM/DL (3.2-5.2); ALT/SGPT 62 U/L (12-78); BILIRUBIN,TOTAL 0.7 MG/DL (0.2-1.0); TOTAL PROTEIN 7.2 GM/DL (6.4-8.2)
== END ==
LOC: M PLALAB 14:35
PROVIDERS: ATTEND Internal Medicine
DX: C22.0 Liver cell carcinoma (principal)
CPT/HCPCS: 36415; 80053; 82105; 85025; 85610; G0463

== ENCOUNTER → 2021-03-19 | Outpatient (CLI) | payer MEDICARE, BC, OTHER ==
[~2021-03-19] MED LIST changes: +LIDOCAINE 1% MDV 20ML VIAL As Ordered ONE
[2021-03-19 14:35] VITALS: BP 117/57
--- NOTE | 2021-03-19 17:04 | REP ---
INDICATION: ASCITES. COMPARISON: 02/15/2021 CT exam. TECHNIQUE: The procedure was explained in detail to the patient by my colleague EMPERATRIZ Lind. Potential risks of the procedure were explained including pain, hemorrhage, bowel perforation and infection. Informed consent was obtained. FINDINGS: Under sterile conditions and after satisfactory min stray alcaraz of local anesthesia 1% lidocaine, a small skin myles was made. An 8 Indonesian paracentesis catheter was placed into the right subhepatic ascites fluid. Catheter was hooked up to suction. Approximately 1400 cc of yellow ascites fluid was withdrawn without difficulty. The catheter was removed and hemostasis obtained. There were no immediate complications. IMPRESSION: Successful ultrasound-guided paracentesis as discussed above. <Electronically signed by North Perez > 03/19/21 [id number]
== END ==
LOC: M IRPRO 13:08
PROVIDERS: ATTEND Internal Medicine
DX: R18.8 Other ascites (principal)

== ENCOUNTER → 2021-04-08 | Outpatient (CLI) | payer MEDICARE, BC, OTHER ==
[~2021-04-08] MED LIST changes: -LIDOCAINE 1% MDV 20ML VIAL As Ordered ONE
[2021-04-08 13:04] LABS: BASO # 0.1 10^3/uL (0.0-0.2); BASO % 1.8 % (0.0-1.0); EOS # 0.3 10^3/uL (0.0-0.5); EOS % 7.3 % (0.0-3.0); HEMATOCRIT 25.9 % (42.0-52.0); HEMOGLOBIN 8.3 g/dl (13.5-17.5); LYMPH # 0.4 10^3/uL (1.5-5.0); LYMPH % 10.4 % (24.0-44.0); MEAN CORPUSCULAR HEMOGLOBIN 27.6 pg (27.0-33.0); MONO # 0.6 10^3/uL (0.0-0.8); MONO % 14.1 % (2.0-8.0); NEUTROPHILS # 2.6 10^3/uL (1.5-8.5); NEUTROPHILS % 66.1 % (36.0-66.0); PLATELET COUNT, AUTOMATED 178 10^3/uL (150-450); RED BLOOD COUNT 3.01 10^6/uL (4.30-6.10)
[2021-04-08 14:02] LABS: CREATININE FOR GFR 1.72 MG/DL (0.70-1.30); MAGNESIUM LEVEL 2.4 MG/DL (1.8-2.4); POTASSIUM SERUM 5.2 MEQ/L (3.5-5.1)
== END ==
LOC: M PLALAB 11:28
PROVIDERS: ATTEND Internal Medicine
DX: I10 Essential (primary) hypertension (principal)

== ENCOUNTER 2021-04-13 14:36 | Observation (INO) | payer MEDICARE, BC, OTHER ==
[2021-04-13] VITALS (7 sets, daily range): BP systolic 118–142; BP diastolic 56–64
[~2021-04-13] VITALS: Ht 180.3 cm; Wt 78.7 kg
--- OUTSIDE RECORDS SUMMARY | 2021-04-13 14:44 | CCD ---
Author Author [facility] Organization [facility] Address Unknown Phone Unavailable Care Team Providers Care Glue Mixer Name Role Phone Sergey Braun Unavailable PROBLEMS Type Condition ICD9-CM Code OCD56-QG Code Onset Dates Condition S tatus W/U Status Risk SNOMED Code Notes Problem Radiation proctitis K62.7 Active confirmed [id number] He had a full evaluation of his radiation proctitis in the past. He had a colonoscopy in May 2006 and again in August 2016. Problem Type 2 diabetes mellitus with other diabetic kid nick complication E11.29 Active confirmed [id number] On metformin t herapy since 2011. Last HgbA1c is stable at 6.9% in October 2020, 6.5% in April 2020, 6.7% in September 2019, 6.9% in April 2019, 6.5% in September 2018, 6.6% in April 2018. Has had dietary counselling. His urine microalbumin has been elevated but he has a history of hematuria which may be causing false positive readings. He is on an ARB (he was switched from lisinopril in September 2012 because of a cough). Diabetes is adequately controlled on metformin alone; the dose was reduced to 500 mg daily after a transient hiatus in therapy during his October 2020 hospital stay when he had acute kidney failure. He has since decided to resume his prior therapy of 1000 mg daily. He will continue home glucose monitoring. Problem Insomnia, unspecified G47.00 Active confirmed [id number] Started doxepin at bedtime in 09/2013, but he no longer needs that and takes melatonin and Tylenol PM apparently. Problem Essential (primary) hypertension I10 Active conf irmed [id number] On losartan, spironolactone and Lasix also as of late November 2020 because of lower extremity edema; hydrochlorothiazide has been stopped in favor of spironolactone as of December 2020 and is spironolactone and Lasix doses were intensified in March 2021 due to ascites. (I switched him from lisinopril HCTZ in September 2012 because of a cough). As of early April 2021 his blood pressure is overcontrolled on losartan 100 mg daily and I have reduced that to 25 mg daily. Subsequent labs reveal a creatinine of 1.72 which is higher and I have reduced his Lasix to every other day. Problem Personal history of urinary calculi Z87.442 Acti ve confirmed [id number] He had right-sided hydroureter related t o a stone, on CT scan in 05/08. Sees Dr. Poon. Problem Thrombocytopenia, unspecified D69.6 Active confirm ed [id number] He has chronic anemia and a history of thrombocytopenia. 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 Denies significant bleeding. Vitamin B12 and Folate levels normal in 2008, and B12 level was normal in 11/2009, September 2018. The spleen was considered enlarged on an imaging study done by the urologist in the past, apparently. He has had issues with his CBC since 2007; his most recent hemoglobin was stable at 10.1 and his platelet count was essentially stable at 118,000 in April 2020, 117,000 in October 2020, and his platelet count range in the 120,000 range during his hospital stay in October 2020. Most recently in November 2020 his hemoglobin was 8 and his platelet count was 167,000. Problem Personal history of malignant neoplasm of prostate Z85.46 Active confirmed [id number] Prostate cancer, luis e gnosed on basis of elevated PSA in 2004, Laney score 5+5, treated with prostate seed implantation 08/03, external beam radiation therapy -11/03. He is regularly followed by the urologist. PSAs have been undetectable. He had a prostatectomy with his cystectomy in October 2020. Problem Personal history of malignant neoplasm of bladder Z85.51 Active confirmed [id number] History of bladder c ancer, resected 01/05, 09/2008, April 2011, following which he had surgery. In 11/07 he had recurrent tumors which were treated with 6 weekly cycles of BCG instillations, and he had a tumor fulgurated in July 2017. He has a urethral stricture which is attended to, if necessary, when he has his cystoscopies. He had gross hematuria in September 2018 and this has persisted. A recurrent bladder tumor was seen on cystoscopy in 01/2019 and he also developed urinary retention and had a Garcia until his urologic surgery in October 2020. He had another TURBT 03/09/2019, TURP in 06/2019, Botox in stillation in March 2020. He has had good results from his ileal conduit placement with bladder and prostate resection in October 2020, but the surgery was complicated by postoperative renal failure which has improved. Problem History of adenomatous polyp of colon Z86.010 Ac tive confirmed [id number] Per colonoscopy 08/2016. Problem Arthritis of knee M17.10 Active confirmed 37 [id number] He has good luck with lidocaine topically. This is far superior to any other therapy because of his chronic thrombocytopenia and leukopenia and anemia. He also has some neck discomfort and basilar arthritis of the hands. A change in pillows may help his neck and he continues lidocaine on his hands Problem Hypercholesterolemia E78.00 Active confirmed [id number] His lipids are optimal despite the lack of statin therapy. Because he is diabetic, we need to consider that, but his LDL is already less than 90 and was last evaluated in April 2020. Problem Hepatocellular carcinoma C22.0 Active confirmed [id number] Diagnosed by biopsy 01/2021. He has been seen by surgical oncology. He apparently had another CT on 03/11/2021. He is pending Y 90 treatments on April 09 and 10 to 14 days later. Problem Leg cramps R25.2 Active confirmed [id number] I continue to recommend magnesium and/or tonic water supplementation. These have been of benefit. 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 At this point he is well compensated and I see no reason for him to see a liver specialist. Problem Nonalcoholic steatohepatitis (WELLS) K75.81 Acti ve confirmed [id number] He has a history of mild liver function test abnormalities, primarily transaminase elevations, in the past, related to being overweight. His liver function tests had actually normalized as of April 2017 except for occasional minimal transaminase elevations (AST was 43 in September 2019, 39 in April 2020, 38 in October 2020, 55 in November 2020). Hepatitis B and C serologies were negative in September 2012. Problem Chronic anemia D64.9 Active confirmed [id number] He has a chronic low-grade anemia with a hemoglobin in the 10 range, and this has been present since at least 2010. Serologic evaluation has been negative. He dropped his hemoglobin into the 8 and 9 range with his hospitalization in October 2020 and he was placed on iron therapy fairly empirically. I think he needs to maintain that therapy at 3 times a week as of early December 2020, as his hemoglobin r emained in the 8 range. He required 2 unit transfusion in mid-01/2021 due to bleeding from his urostomy, and another 2 unit transfusion in late March 2021 because of recurrent bleeding from his ostomy. Problem Fatty liver K76.0 Active confirmed 7 He has a fatty liver but this has progressed to cirrhosis and he also has liver cancer. Problem Other ascites R18.8 Active confirmed [id number] He re required 2 paracenteses so far. I did increase his spironolatone to 25 mg twice a day and increase his Lasix to 40 mg daily as of 03/05/2021. This seems to be holding his ascites at bay. 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 ; Chronic anemia D64.9 and Type 2 diabetes mellitus with other diabetic kidney complication E11.29 IMMUNIZATIONS Vaccine Route Administration Date Status Influenza Pharmacy Given Unknown Mar 08, 2020 Adminis tered Influenza Pharmacy Given Unknown Feb 26, 2021 Adminis tered COVID-19 dose #1 given elsewhere Unspecified Unknown Jul 08, 2020 Administered COVID-19 dose #2 given elsewhere Unspecified Unknown Jul 29, 2020 Administered Influenza 6-35 months Unknown Mar 09, 2019 Administer ed Zoster 50mcg/0.5mL Shingrix Unknown December 09, 2017 Admi nistered Zoster 50mcg/0.5mL Shingrix Unknown Mar 16, 2018 Admi nistered TD PED 0.5mL Tetanus Unknown October 06, 2002 Administere d Pfizer #3 dose COVID-19 SARSCOV2 VAC 30MCG/0.3ML IM Unknown Mar 14, 2021 Administered Influenza (High Dose 65 & up) Unknown Mar 16, 2018 Ad ministered Influenza (High Dose 65 & up) Unknown Apr 01, 2017 Ad ministered Influenza (High Dose 65 & up) IM Intramuscular Apr 15, 2016 A dministered Influenza (High Dose 65 & up) IM Intramuscular Mar 21, 2015 A dministered Zoster 0.65mL Zostavax Unknown October 06, 2012 Administe red Pneumococcal Adult 0.5mL Pneumovax 23 Unknown October 06 09 Administered Pneumococcal Adult 0.5mL Pneumovax 23 Unknown October 06 04 Administered Pneumococcal 0.5mL Prevnar 13 IM Intramuscular Mar 21, 2015 A dministered SOCIAL HISTORY Tobacco Use: Social History Observation Description Date Details (start date - stop date) Never Smoker Sex Assigned At : Social History Observation Description Sex Assigned At Unknown Education: Question Answer Notes Level of Education: College Audit Question Answer Notes Total Score: 1 Interpretation: Alcohol Education Language: Question Answer Notes Languages spoken: Latvian Sikhism: Question Answer Notes Sikhism No lutheran beliefs that would impact health care. Domestic Violence: Question Answer Notes Status: Sexual Hx: Question Answer Notes Had sex in the last 12 months (vaginal, oral, or anal)? No Have you ever had an STD? No Drug and Alcohol Question Answer Notes Total Score: 0 Interpretation: No problems reported Alcohol Screening: Question Answer Notes Did you have a drink containing alcohol in the past year? Ye s Points 1 Interpretation Negative How often did you have six or more drinks on one occas ion in the past year? Never (0 points) How many drinks did you have on a typica l day when you were drinking in the past year? 1 or 2 (0 points) How often did you have a drink containing alcohol in t he past year? Monthly or less (1 point) BMI Care Goal Follow-Up Question Answer Notes Above Normal BMI Follow-Up Dietary management educatio n, guidance, and counseling Tobacco Use: Question Answer Notes Are you a: never smoker never smoker REASON FOR REFERRAL No Information VITAL SIGNS Weight 175.0 lbs Apr, Height 71 in Apr, BMI 24.40 kg/m2 Apr, Heart Rate 99 /min Apr, Respiratory Rate 18 /min Apr, Temperature 97.1 degrees Fahrenheit Apr, Oximetry 97% Apr, Blood pressure systolic 102 mm Hg Apr, Blood pressure diastolic 56 mm Hg Apr, MEDICATIONS Medication SIG (Take, Route, Frequency, Duration) Notes Start Da te End Date Status Colace 100 MG 1 cap Orally twice daily Active Spironolactone 25 MG 1 tablet Orally Twice a day for 90 days Dec, Active Flonase Allergy Relief 50 MCG/ACT 2 spray in each nost ril Nasally Once a day for 30 days Active metFORMIN HCl ER 500 MG 2 tablets with evening meal Orally Once a day for 90 days Active Lasix 40 MG 1 tablet Orally Every other day Nov, Active hydrOXYzine HCl 10 MG 1 tablet Orally every 4 hour s as needed for itching for 30 Days Dec, Active Losartan Potassium 50 MG 1/2 tablet Orally Once a day for 90 day s Dec, Active Lidocaine 5 % 1 application to affected kn ee Externally Three times a day as needed for pain for 30 days Acti ve Tylenol PM Extra Strength 500-25 MG 1 tablet at bedtime as n eeded Orally Daily Active Melatonin 10 MG 1 tab Orally once daily Active Abdominal Binder/Elastic 3XL - as directed Wrap abdome n nightly to keep urostomy drainage system in place nightly; Dx R18 for 100 days Mar, Active Ferrous Sulfate 325 (65 Fe) MG 1 tablet Orally Once a day on Mon/Wed/Fri for 90 days Active PROCEDURES No Information RESULTS Component Value Reference Range CBC with Differential Reviewed date:04/09/2021 07:13:18 Interpretation: Performing Lab:[facility], [facility] [address] [address] , ,[place] [address] WHITE BLOOD COUNT 4.0 4.0-10.0 RED BLOOD COUNT 3.01 4.30-6.10 HEMOGLOBIN 8.3 13.5-17.5 HEMATOCRIT 25.9 42.0-52.0 MEAN CORPUSCULAR VOLUME 86.0 80.0-96.0 MEAN CORPUSCULAR HEMOGLOBIN 27.6 27.0-33.0 MEAN CORPUSCULAR HGB CONC 32.0 32.0-36.5 RED CELL DISTRIBUTION WIDTH 15.9 11.5-14.5 PLATELET COUNT, AUTOMATED 178 150-450 NEUTROPHILS % 66.1 36.0-66.0 LYMPH % 10.4 24.0-44.0 MONO % 14.1 2.0-8.0 EOS % 7.3 0.0-3.0 BASO % 1.8 0.0-1.0 NEUTROPHILS # 2.6 1.5-8.5 LYMPH # 0.4 1.5-5.0 MONO # 0.6 0.0-0.8 EOS # 0.3 0.0-0.5 BASO # 0.1 0.0-0.2 Basic Metabolic Profile (BMP) Reviewed date:04/09/2021 08:17:48 Interpretation: Performing Lab:[facility] [address] [address] , ,[place] [address] GLUCOSE, FASTING 155 70-100 BLOOD UREA NITROGEN 45 7-18 CREATININE FOR GFR 1.72 0.70-1.30 GLOMERULAR FILTRATION RATE 41.0 >42 SODIUM LEVEL 135 136-145 POTASSIUM SERUM 5.2 3.5-5.1 CHLORIDE LEVEL 107 98-107 CARBON DIOXIDE LEVEL 20 21-32 CALCIUM LEVEL 11.0 8.8-10.2 MAGNESIUM LEVEL Reviewed date:04/09/2021 06:30:09 Interpretation: Performing Lab:[facility], [facility] [address] [address] , ,[place] [address] MAGNESIUM LEVEL 2.4 1.8-2.4 REASON FOR VISIT 1 month follow up MEDICAL (GENERAL) HISTORY Type Description Date Medical History Type 2 diabetes mellitus wit h other diabetic kidney complication Medical History Hypercholesterolemia Medical History Personal history of malignant neoplasm o f bladder Medical History Personal history of malignant neoplasm o f prostate Medical History Thrombocytopenia, unspecified Medical History Personal history of urinary calculi Medical History Nonalcoholic steatohepatitis (WELLS) Medical History Insomnia, unspecified Medical History Radiation proctitis Medical History History of adenomatous polyp of colon Medical History Leg cramps Medical History Arthritis of knee Medical History Essential (primary) hypertension Surgical History tonsillectomy Age 14 Surgical History Prostate Biopsy 06/2004 Surgical History colonoscopy 05/19/2006, 08/2016 Surgical History TURBT 12/2006 Surgical History right rotator cuff tear repair 8 Surgical History cystoscopy with TURBT 10/17/2008, 1 Surgical History urethral stricture dilation 11/04/2011 Surgical History Robotic right ureteral reimplantation Surgical History biopsy of mandibular bone Fall 2013 Surgical History Colonoscopy with polypectomy (adenomatou s) 08/2016 Surgical History Cystoscopy with fulgeration of bladder t umor 07/2017 Surgical History Cystoscopy with dilation of urethral str icture--no tumor 09/28/2017 Surgical History Cystoscopy Surgical History Cystoscopy 08/2018 Surgical History Cystoscopy; had recurrent tumor 01/2019 Surgical History TURBT 03/09/2019 Surgical History TURP-Dr. Poon 06/22/2019 Surgical History Prostatectomy-Dr. Fowler 11/13/2020 Surgical History Paracentesis Hospitalization History [facility]- prostatectomy surgery 11/13- 11/22/2020 Goals Section No Information Health Concerns No Information MEDICAL EQUIPMENT No Information MENTAL STATUS No Information FUNCTIONAL STATUS No Information ASSESSMENTS Encounter Date Diagnosis Assessment Notes Treatment Notes Treatm ent Clinical Notes Apr, Essential (primary) hypertension (ICD-10 - I10) On losartan, spironolactone and Lasix also as of late November 2020 because of lower extremity edema; hydrochlorothiazide has been stopped in favor of spironolactone as of December 2020 and is spironolactone and Lasix doses were intensified in March 2021 due to ascites. (I switched him from lisinopril HCTZ in September 2012 because of a cough). As of early April 2021 his blood pressure is overcontrolled on losartan 100 mg daily and I have reduced that to 25 mg daily. Subsequent labs reveal a creatinine of 1.72 which is higher and I have reduced his Lasix to every other day. Apr, Hepatocellular carcinoma (ICD-10 - C22.0 ) Diagnosed by biopsy 01/2021. He has been seen by surgical oncology. He apparently had another CT on 03/11/2021. He is pending Y 90 treatments on April 09 and 10 to 14 days later. Apr, Other ascites (ICD-10 - R18.8) He re req uired 2 paracenteses so far. I did increase his spironolatone to 25 mg twice a day and increase his Lasix to 40 mg daily as of 03/05/2021. This seems to be holding his ascites at bay. Apr, Secondary biliary cirrhosis (ICD-10 - K7 4.4) See biopsy report 12/2020. At this point he is well compensated and I see no reason for him to see a liver specialist. Apr, Chronic anemia (ICD-10 - D64.9) He has a chronic low-grade anemia with a hemoglobin in the 10 range, and this has been present since at least 2010. Serologic evaluation has been negative. He dropped his hemoglobin into the 8 and 9 range with his hospitalization in October 2020 and he was placed on iron therapy fairly empirically. I think he needs to maintain that therapy at 3 times a week as of early December 2020, as his hemoglobin remained in the 8 range. He required 2 unit transfusion in mid-01/2021 due to bleeding from his urostomy, and another 2 unit transfusion in late March 2021 because of recurrent bleeding from his ostomy. Apr, Type 2 diabetes mellitus wit h other diabetic kidney complication (ICD-10 - E11.29) On metformin therapy since 2011. Last Hg bA1c is stable at 6.9% in October 2020, 6.5% in April 2020, 6.7% in September 2019, 6.9% in April 2019, 6.5% in September 2018, 6.6% in April 2018. Has had dietary counselling. His urine microalbumin has been elevated but he has a history of hematuria which may be causing false positive readings. He is on an ARB (he was switched from lisinopril in September 2012 because of a cough). Diabetes is adequately controlled on metformin alone; the dose was reduced to 500 mg daily after a transient hiatus in therapy during his October 2020 hospital stay when he had acute kidney failure. He has since decided to resume his prior therapy of 1000 mg daily. He will continue home glucose monitoring. PLAN OF TREATMENT Medication Medication Name Sig Start Date Stop Date Losartan Potassium 50 MG 1/2 tablet Orally Once a day for 90 day s Dec, Lasix 40 MG 1 tablet Orally Every other day Nov, Future Test Test Name Order Date CBC with Differential 20210408 Basic Metabolic Profile (BMP) 20210408 MAGNESIUM LEVEL [id number] Next Appt Details Keep 05/06 appt Reason: Provider Name:Sergey Braun, 2021-05-06 04 :00:00 PM, [address] [place] [address], , [place], [address], Provider Name:Sergey Braun, 2021-07-02 03 :30:00 PM, [address] [place] [address], , [place], [address], Insurance Providers Payer Name Payer Address Payer Phone Insured Name Patient Relati onship to Insured Coverage Start Date Coverage End Date MEDICARE Part A and B [address] [facility] [address] SARINA LINARES [facility] [address] [facility] [id number] SARINA LINARES
--- OUTSIDE RECORDS SUMMARY | 2021-04-13 14:45 | CCD | Continuity of Care Document ---
Author Sarina Rosa M.D. Organization Unknown Address [address] [place] [id number] Phone [phone] Care Team Providers Care Nuclear Spectroscopist Name Role Phone Sergey Braun M.D. AUTM [phone] Problems Active Problems Provider Date Sergey hematuria Harry Oviedo MD Onset: 07/2008 Retention of urine Harry Oviedo MD Onset: 07/2008 Hydronephrosis Thierry Poon MD Onset: 09/22/2011 Glycosuria Thierry Poon MD Onset: 09/22/2011 Incomplete emptying of bladder Thierry Poon MD Onset: 03/22/2012 Urinary tract infectious disease Thierry Poon MD Onse t: 02/28/2014 Urethral stricture KRISTA Fowler MD Onset: 08/18/2011 Stricture of ureter KRISTA Fowler MD Onset: 08/18/2011 History of malignant neoplasm of bladder Thierry Poon MD Onset: 08/18/2011 Malignant tumor of prostate Estefania Graves D.O. Onset: 08/18/2011 Impotence of organic origin Thierry Poon MD Onset: History of malignant neoplasm of prostate Thierry Poon MD Onset: 05/15/2015 Other urethral bulbous stricture, male Amee Bryan Onset: 03/22/2018 Malignant neoplasm of lateral wall of urinary bladder Thierry Poon MD Onset: 02/17/2019 Nocturia Thierry Poon MD Onset: 02/17/2019 Malignant tumor of bladder neck Thierry Poon MD Onset : 03/22/2019 Mixed urinary incontinence Thierry Poon MD Onset: 10/2019 Stress incontinence (female) (male) Thierry Poon MD O nset: 08/11/2019 Overactive bladder Thierry Poon MD Onset: 03/22/2020 Bladder neck obstruction PO Ramin Fowler MD Onset: 04/20/20 Adenocarcinoma of prostate Onset: Cirrhosis of liver Onset: Acute renal failure Onset: Sepsis due to Gram negative bacteria Ons et: Anemia due to blood loss Onset: Thrombocytopenic disorder Onset: Benign essential hypertension Onset: Diabetes mellitus Onset: Alteration in tissue perfusion Onset: At risk for falls Onset: Ascites Onset: Anemia Onset: Gastrointestinal hemorrhage RKISTA Fowler MD Onset: 03/20 Primary malignant neoplasm of liver KRISTA Fowler MD Onse t: 03/20/2021 Social History Type Date Description Comments Sex Unknown Tobacco Use Reviewed: 03/20/21 Never Smoked Cigarettes Smoking Status Reviewed: 03/20/21 Never Smoked Cigarettes ETOH Use Social Alcohol Use Allergies and adverse reactions Active Allergies Criticality Reaction | Severity Comments Date Casodex Unable to assess criticality PALPITATIONS 09/01/2005 Medications Active Medications SIG Qnty Indications Ordering Provide r Date Losartan Potassium 100mg Tablets cystoprostatectomy with ileal conduit on 11/13/2020 Sergey Braun M.D. Metformin HCL ER 500mg Tablets ER 24HR cystoprostatectomy with ileal conduit on 11/13/2020 Sergey Braun M.D. Iron (Ferrous Sulfate) 325(65Fe) mg Tablets 1 by mouth once every other day Unknown Stool Softener 100mg Capsules 1 by mouth twice a day 60caps Unknown Lidocaine 5% Ointment Apply To Affected Knee Three Times A Day as Needed For Pain Unknow n Spironolactone 25mg Tablets Take One Tablet By Mouth Twice A Day Unknown Hydroxyzine HCL 10mg Tablets Take One Tablet By Mouth Every 4 Hours as Needed For Itching Unknown Furosemide 40mg Tablets Take One Tablet By Mouth Every Day Unknown History Medications Oxycodone HCL 5mg Capsules take one capsule by mouth before bed as needed for severe pain 7caps PO Ramin Fowler MD 12/07/2020 - 03/19/2021 Medications Administered in Office Medication SIG Qnty Indications Ordering Provider Date BCG, [place] Strain - new code eff. 11/29/18 50MG Injection Harry Oviedo MD 05/17/2019 BCG, [place] Strain - new code eff. 11/29/18 50MG Injection WSC2,Nursing Schedule/Proced ure Room 05/17/2019 BCG, [place] Strain - new code eff. 11/29/18 50MG Injection Charbel Yoo MD 9 BCG, [place] Strain - new code eff. 11/29/18 50MG Injection WSC2,Nursing Schedule/Proced ure Room 04/12/2019 BCG, [place] Strain DO Not Use After 9 Dos Injection Ryan Perez P.A. 09/2008 BCG, [place] Strain DO Not Use After 9 Dos Injection Ryan Perez P.A. BCG, [place] Strain DO Not Use After 9 Dos Injection Ryan Perez P.A. BCG, [place] Strain DO Not Use After 9 Dos Injection Sai Barrera.A. BCG, [place] Strain DO Not Use After 9 Dos Injection Ryan Perez P.A. 12/2008 BCG, [place] Strain DO Not Use After 9 Dos Injection Charity Mcneill R.N., M. S., N.P. 12/15/2007 BCG, [place] Strain DO Not Use After 9 Dos Injection Charity Mcneill R.N., M. S., N.P. 12/08/2007 BCG, [place] Strain DO Not Use After 9 Dos Injection Charity Mcneill R.N., M. S., N.P. 12/02/2007 BCG, [place] Strain DO Not Use After 9 Dos Injection Renée Barrera BCG, [place] Strain DO Not Use After 9 Dos Injection Renée Barrera BCG, [place] Strain DO Not Use After 9 Dos Injection Renée Barrera Immunizations Description No Information Available Vital Signs Date Vital Result Comment 03/20/2021 9:43am Height 71 inches 5'11" Weight 175.00 lb Weight 79.380 kg BMI (Body Mass Index) 24.4 kg/m2 BP Systolic 125 mmHg BP Diastolic 60 mmHg Heart Rate 97 /min 02/18/2021 6:03am Respiratory Rate 18 /min Results Test Acquired Date Facility Test Result H/L Range Note 230 Ua Routine 03/20/2021 [facility] REF TO DR ADDRESS ON ORDER FOR (315)- - Ua Glucose Negative 1 Ua Protein Negative Ua Nitrite Negative Ua Leuko Negative Ua Blood Trace-intact Ua Color Not Entered Ua Ketones Negative Ua Clarity Not Entered Ua Specific Hardy 1.010 1.003-1.030 Ua PH 7.0 5.0-7.5 Ua Bilirubin Negative Ua Urobilinogen 0.2 E.U./dL 0.0-1.0 230 Ua Routine 02/14/2021 [facility] REF TO DR ADDRESS ON ORDER FOR (315)- - Ua Glucose Negative Ua Protein 100 mg/dL Ua Nitrite Negative Ua Leuko Trace Ua Blood Large Ua Color Not Entered Ua Ketones Negative Ua Clarity Not Entered Ua Specific Hardy 1.025 1.003-1.030 Ua PH 7.0 5.0-7.5 Ua Bilirubin Negative Ua Urobilinogen 1.0 E.U./dL 0.0-1.0 Urine Cytology 12/05/2020 [facility] [address] [place], [place] [id number] [phone] Clinical History Z85.46 Normal Specimen Adequacy Ileal conduit/ne <SEE NOTE> Normal 2 BodySite Voided - Clean C <SEE NOTE> Normal 3 Gross Description Received in a sp <SEE NOTE> Normal 4 Microscopic Description Moderate numbers <SEE NOTE> Normal 5 Final Diagnosis NEGATIVE FOR HIG <SEE NOTE> Normal 6 CPTCode 42210 Normal PDF Report SEE IMAGE 230 Ua Routine 12/05/2020 [facility] REF TO DR ADDRESS ON ORDER FOR (315)- - Ua Glucose Negative Ua Protein 30 mg/dL Ua Nitrite Negative Ua Leuko Moderate Ua Blood Large Ua Color Not Entered Ua Ketones Negative Ua Clarity Not Entered Ua Specific Hardy 1.010 1.003-1.030 Ua PH 6.5 5.0-7.5 Ua Bilirubin Negative Ua Urobilinogen 0.2 E.U./dL 0.0-1.0 Laboratory test finding 11/13/2020 [facility] [address] [place] [address] [phone] Surgical Pathology [facility] <SEE NOTE> 7 Laboratory test finding 11/06/2020 [facility] [address] [facility] [address] [place] [address] [phone] Urine Culture SPECIMEN DESCRIP <SEE NOTE> 8 230 Ua Routine 11/06/2020 [facility] REF TO DR ADDRESS ON ORDER FOR (315)- - Ua Glucose Negative Ua Protein 30 mg/dL Ua Nitrite Negative Ua Leuko Large Ua Blood Moderate Ua Color Not Entered Ua Ketones Negative Ua Clarity Not Entered Ua Specific Hardy 1.015 1.003-1.030 Ua PH 7.0 5.0-7.5 Ua Bilirubin Negative Ua Urobilinogen 0.2 E.U./dL 0.0-1.0 1 ostomy bag 2 Ileal conduit/neobladder. 3 Voided - Clean Catch 4 Received in a specimen conta iner, labeled with the patients name and , is Cloudy Yellow fluid consistent with urine, measuring approximately 15 ml. 5 Moderate numbers of neutroph ils present. 6 NEGATIVE FOR HIGH-GRADE UROT HELIAL CARCINOMA. 7 [facility] [address] [place] [address] SURGICAL PATHOLOGY REPORT Patient Name:SARINA LINARES :1940 Received:11/14/2020 Specimen(s) Received: A: Bladder, prostate and appendix B: Left proximal ureter C: Right proximal ureter Clinical Diagnosis and History: Bladder neck contracture. DIAGNOSIS: A) BLADDER, PROSTATE AND APPENDIX, CYSTOPROSTATECTOMY AND APPENDECTOMY BENIGN BLADDER WITH FOCAL ULCERATION, MODERATE CHRONIC CYSTITIS, AND GRANULATION TISSUE FORMATION; PROSTATE WITH ATROPHY AND RADIATION CHANGES; NEGATIVE FOR MALIGNANCY; APPENDIX WITH FIBROUS OBLITERATION OF THE APPENDICEAL TIP. B) LEFT PROXIMAL URETER BENIGN URETER. C) RIGHT PROXIMAL URETER BENIGN URETER. GROSS DESCRIPTION: Specimen A received in formalin labeled "bladder, prostate and appendix" is a bladder with attached portion of prostate gland measuring 10.0 cm from superior to inferior, 8.7 cm from right to left, and up to 5.7 cm from anterior to posterior. The anterior surface of the bladder is opened to one surface. The appendix is loosely attached by adhesions to the left lateral aspect of the bladder. It measures 8.5 cm in length and varies in diameter from 0.7 cm proximally to 0.3 cm distally. Extending from the dome of the bladder is a flap of glistening yellow-west adipose tissue measuring 9.5 x 6.5 x 0.2 cm in greatest dimension. The anterior margin of the specimen reveals granular exposed muscle. At the base of the bladder only a small portion of prostatic tissue is present. It measures 2.4 cm from superior to inferior and up to 3.0 cm from right to left. Within the prostatic tissue multiple cylindrical silver metal rods are identified which measure up to 0.5 cm in length and up to 0.1 cm in diameter. The seminal vesicles are present prominent and are encased in fibrous tissue. Vas deferens are also identified bilaterally. The cut surface of the prostate is solid, rubbery and montero-west. The right aspect of the gland is marked with black ink and the left with blue ink. Definitive ureter is not identified on the left. The attached portion of right ureter measures 4.0 cm in length and 0.3 cm in diameter. The urethral margin obstructed. The wall of the bladder varies from 0.7 to 2.0 cm in thickness. The bladder mucosa is markedly edematous, west-pink, lobulated and glistening. With the exception of the polypoid edematous mucosa, no focal lesions are identified. On the cut surface no invasive tumor of the bladder is identified. No lymph nodes are identified in the surrounding perivesicular fat. Sections are submitted for microscopic examination as follows: sections from the appendix AP; a shave section through the apical margin of the prostate tissue and urethra U; sections from the attached right ureter RU; sections from the attached portion of the possible left ureter CARLOS; the entire prostate gland sectioned from apex to base designated 1-5 respectively and additionally designated R and L (seminal vesicles posterior); right and left trigone regions RT/LT; anterior wall of bladder A; posterior wall of bladder P; dome of bladder D; right lateral wall RL; left lateral wall LL. (21 blocks) Specimen B received in formalin labeled "left proximal ureter" is a 1.1 cm tubular segment of montero-west tissue with attached fat. A suture is present at one end of the specimen. The specimen is clamped with a plastic clamp. The clamp is removed and the specimen is serially sectioned and entirely submitted for microscopic examination. (1 block) Specimen C received in formalin labeled "right proximal ureter" is a 0.8 cm segment of tubular montero-west tissue. There is minimal attached fat. There is an attached suture and a white plastic clamp. The specimen measures up to 0.7 cm in diameter and is bisected and entirely submitted for microscopic examination. (1 block) jgl mls/sgb Reported: 11/22/2020 Electronically Signed Out By Anisa Mcmillan D.O. [facility] [place] [address] Technical component performed at [facility], [facility], Histopathology, [address] [place] [address], formerly [facility]. Reported at [facility], [address] [place] [address], [facility]. This report may include immunohistochemical or in-situ hybridization results. Testing was developed and the performance characteristics determined by [facility], as required by CLIA '88. The FDA has determined that approval for specific use is not necessary for clinical use. The quality of Hematoxylin and Eosin stains and as applicable, for all immunohistochemical and/or special stains, including positive and negative controls, were reviewed and considered appropriate. ICD codes: Z85.46 CPT4 codes: A: 47808P B: 24531J C: 88709Q 8 SPECIMEN DESCRIPTION URINE, COLLECTION METHOD NOT SPECIFIED CULTURE RESULTS MIXED UROGENITAL DEIRDRE; PLEASE SUBMIT A NEW SPEC IMEN IF CLINICALLY INDICATED. REPORT STATUS FINAL 11/08/2020 Procedures Date Code Description Status 03/20/2021 45797 Office/Outpatient Established Lo w MDM 20-29 Min Completed 02/14/2021 85322 Office/Outpatient Established Lo w MDM 20-29 Min Completed 01/22/2021 11021 Office/Outpatient Established Lo w MDM 20-29 Min Completed 11/13/2020 19124 Cystectomy, And Ileal Loop Compl eted 11/13/2020 08115 Appendectomy Completed 09/25/2020 71402 Insertion, Of Tempor lasha Indwelling Bladder Catheter Simple Garcia Completed 07/07/2019 89162540 Colonoscopy Completed Medical Devices Description No Information Available Encounters Type Date Location Provider Dx Diagnosis Office Visit 03/20/2021 9:40a [facility]/ [facility]rology KRISTA Fowler MD Z85.46 Personal history of malignant neoplasm o f prostate Z85.51 Personal history of malignan t neoplasm of bladder K92.2 Gastrointestinal hemorrhage, unspecified K74.60 Unspecified cirrhosis of [place] er C22.0 Liver cell carcinoma Office Visit 02/14/2021 10:00a [facility]/ A.M.P[facility] Urol prudence Poon MD Z85.46 Personal history of malignan t neoplasm of prostate Z85.51 Personal history of malignan t neoplasm of bladder R31.0 Gross hematuria Office Visit 01/22/2021 11:00a [facility]/ A.M.P[facility] Urol ARCADIO Jenkins R10.30 Lower abdominal pain, unspec ified Z85.46 Personal history of malignan t neoplasm of prostate Z85.51 Personal history of malignan t neoplasm of bladder Office Visit 12/05/2020 10:30a [facility]/ A[facility] Urology Tarah Mccormack PA-C Z85.46 Personal history of malignan t neoplasm of prostate Z85.51 Personal history of malignan t neoplasm of bladder N39.46 Mixed incontinence M54.5 Low back pain Assessments Date Code Description Provider 03/20/2021 Z85.46 Personal history of malignant ne oplasm of prostate KRISTA Fowler MD 03/20/2021 Z85.51 Personal history of malignant ne oplasm of bladder KRISTA Fowler MD 03/20/2021 K92.2 Gastrointestinal hemorrhage, uns pecified KRISTA Fowler MD 03/20/2021 K74.60 Unspecified cirrhosis of liver P O Ramin Fowler MD 03/20/2021 C22.0 Liver cell carcinoma KRISTA Fowler MD 03/11/2021 K92.2 Gastrointestinal hemorrhage, uns pecified ARCADIO Bowman 02/14/2021 Z85.46 Personal history of malignant ne oplasm of prostate Thierry Poon MD 02/14/2021 Z85.51 Personal history of malignant ne oplasm of bladder Thierry Poon MD 02/14/2021 R31.0 Gross hematuria Thierry smith MD 01/22/2021 R10.30 Lower abdominal pain, unspecifie d ARCADIO Juarez 01/22/2021 Z85.46 Personal history of malignant ne oplasm of prostate ARCADIO Juarez 01/22/2021 Z85.51 Personal history of malignant ne oplasm of bladder ARCADIO Juarez 12/05/2020 Z85.46 Personal history of malignant ne oplasm of prostate Ousmane Huang MD 12/05/2020 Z85.46 Personal history of malignant ne oplasm of prostate Tarah Mccormack PA-C 12/05/2020 Z85.51 Personal history of malignant ne oplasm of bladder Tarah Mccormack PA-C 12/05/2020 N39.46 Mixed incontinence Tarah son PA-C 12/05/2020 M54.5 Low back pain Tarah Mccormack PA-C 11/22/2020 N32.0 Bladder-neck obstruction ARCADIO Valentine 11/21/2020 N32.0 Bladder-neck obstruction ARCADIO Valentine 2020 C61 Malignant neoplasm of prostate ARCADIO Cassidy 11/19/2020 C61 Malignant neoplasm of prostate ARCADIO Cassidy 11/19/2020 N32.0 Bladder-neck obstruction ARCADIO Valentine 11/16/2020 C61 Malignant neoplasm of prostate ARCADIO Cassidy 11/16/2020 N32.0 Bladder-neck obstruction ARCADIO Valentine 11/15/2020 N32.0 Bladder-neck obstruction ARCADIO Valentine 11/15/2020 C61 Malignant neoplasm of prostate Hyacinth ARCADIO Calle 11/14/2020 N32.0 Bladder-neck obstruction ARCADIO Valentine 11/14/2020 C61 Malignant neoplasm of prostate ARCADIO Cassidy 11/13/2020 N32.0 Bladder-neck obstruction KRISTA Suresh am, MD 11/13/2020 C61 Malignant neoplasm of prostate P Roland Fowler MD 11/06/2020 Z85.46 Personal history of malignant ne oplasm of prostate KRISTA Fowler MD 11/06/2020 Z85.51 Personal history of malignant ne oplasm of bladder KRISTA Fowler MD 11/06/2020 Z85.46 Personal history of malignant ne oplasm of prostate Charbel Yoo MD 11/06/2020 Z85.51 Personal history of malignant ne oplasm of bladder Charbel Yoo MD 09/25/2020 R33.8 Other retention of urine Corey Poe MD 09/25/2020 R33.8 Other retention of urine WSC2,Nu rsing Schedule/Procedure Room Plan of Treatment Future Appointment(s):* 04/23/2021 2:30 pm - Thierry Poon MD at [facility]/ A[facility] Urology * 05/16/2021 2:10 pm - Thierry Poon MD at [facility]/ A[facility] Urology 03/20/2021 - KRISTA Fowler MD* Z85.46 Personal history of malignant neoplasm of prostate* Comments:* No evidence recurrence * Z85.51 Personal history of malignant neoplasm of bladder* Comments:* No evidence recurrence * K92.2 Gastrointestinal hemorrhage, unspecified* Comments:* The patient is being evaluated and plan for treatment for headaches hepatocellular cancer. I have also asked that he see a specialist for his hepatic problems and cirrhosis. Currently there is no active bleeding around his stoma. It is l ikely that his portal hypertension is contributing to his bleeding. 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 Created [address] [facility] [address] [place] [address] [phone] KRISTA Fowler M.D. Per Josefa Dobson @ [place] Patient is active with [employer] Patient has benefits for inpatient surgery-hospital Covered @ 100% CPT 49564, 54505, 71118, 03422 (69652, 54232, 25046, 65580)-no prior authorization required Ref# [id number] Per Ayad Goodson @ [place] ([facility] side-auth department) CPT 51066, 35441, 49024, 98181 (68108, 49993, 93097, 32586)-No prior authorization required Ref# [id number] [facility]Patient is active Per Medicare guidelines-Never needs prior authorization *Based on medical necessity* 10/23/20 MW Created [facility] [address] [place] [address] [phone]
--- OUTSIDE RECORDS SUMMARY | 2021-04-13 14:45 | CCD | Continuity of Care Document ---
Author Author Sarina MARIE NE Organization Unknown Address [address] [place] [address] [address] [place] [address] Phone [phone] Care Team Providers Care Air Traffic Control Supervisor Name Role Phone Sergey Braun M.D. AUTM [phone] Problems Active Problems Provider Date Sergey hematuria [...] Onset: Ascites Onset: Anemia Onset: Gastrointestinal hemorrhage KRISTA Fowler MD Onset: 03/20 Primary malignant neoplasm [...] SIG Qnty Indications Ordering Provider Date BCG, [place] Strain - new code eff. 11/29/18 50MG Injection Harry Oviedo MD 05/17/2019 [facility], [place] Strain - new code eff. 11/29/18 50MG Injection WSC2,Nursing Schedule/Proced ure Room 05/17/2019 BCG, [place] Strain - new code eff. 11/29/18 50MG Injection Charbel Yoo MD 9 BCG, [place] Strain - new code eff. 11/29/18 50MG Injection WSC2,Nursing Schedule/Proced ure Room 04/12/2019 [facility], [place] Strain DO Not Use After 9 Dos Injection Ryan Perez P.A. 09/2008 [facility], [place] Strain DO Not Use After 9 Dos Injection Ryan Perez P.A. BCG, [place] Strain DO Not Use After 9 Dos Injection Ryan Perez P.A. BCG, [place] Strain DO Not Use After 9 Dos Injection Sai Barrera.A. BCG, [place] Strain DO Not Use After 9 Dos Injection Ryan Perez P.A. 12/2008 BCG, [place] Strain DO Not Use After 9 Dos Injection Charity Mcneill R.N., M. S., N.P. 12/15/2007 BCG, [place] Strain DO Not Use After 9 Dos Injection Charity Mcneill R.N., M. S., N.P. 12/08/2007 BCG, [place] Strain DO Not Use After 9 Dos Injection Charity Mcneill R.N., M. S., N.P. 12/02/2007 BCG, [place] Strain DO Not Use After 9 Dos Injection Renée Barrera BCG, [place] Strain DO Not Use After 9 Dos Injection Renée Barrera BCG, [place] Strain DO Not Use After 9 Dos [...] Negative Ua Clarity Not Entered Ua Specific [place] 1.010 1.003-1.030 Ua PH 7.0 5.0-7.5 Ua Bilirubin Negative Ua Urobilinogen 0.2 E.U./dL 0.0-1.0 230 Ua Routine 02/14/2021 [facility] REF TO DR ADDRESS ON ORDER FOR (315)- - Ua Glucose Negative Ua Protein 100 mg/dL Ua Nitrite Negative Ua Leuko Trace Ua Blood Large Ua Color Not Entered Ua Ketones Negative Ua Clarity Not Entered Ua Specific [place] 1.025 1.003-1.030 Ua PH 7.0 5.0-7.5 Ua Bilirubin Negative Ua Urobilinogen 1.0 E.U./dL 0.0-1.0 Urine Cytology 12/05/2020 [facility] [address] [place], [place] [id number] [phone] Clinical History Z85.46 Normal Specimen Adequacy Ileal conduit/ne <SEE NOTE> Normal 2 BodySite Voided - Clean C <SEE NOTE> Normal 3 Gross Description Received in a sp <SEE NOTE> Normal 4 Microscopic Description Moderate numbers <SEE NOTE> Normal 5 Final Diagnosis NEGATIVE FOR HIG <SEE NOTE> Normal 6 CPTCode 46087 Normal PDF Report SEE IMAGE 230 Ua Routine 12/05/2020 [facility] REF TO DR ADDRESS ON ORDER FOR (315)- - Ua Glucose Negative Ua Protein 30 mg/dL Ua Nitrite Negative Ua Leuko Moderate Ua Blood Large Ua Color Not Entered Ua Ketones Negative Ua Clarity Not Entered Ua Specific [place] 1.010 1.003-1.030 Ua PH 6.5 5.0-7.5 Ua Bilirubin Negative Ua Urobilinogen 0.2 E.U./dL 0.0-1.0 Laboratory test finding 11/13/[address] [facility] [address] [place] [address] [phone] Surgical Pathology LABORATORY ALL[facility] <SEE NOTE> 7 Laboratory test finding 11/06/2020 [facility] [address] [facility] [address] [place] [address] [phone] Urine Culture SPECIMEN DESCRIP <SEE NOTE> 8 230 Ua Routine 11/06/2020 [facility] REF TO DR ADDRESS ON ORDER FOR (315)- - Ua Glucose Negative Ua Protein 30 mg/dL Ua Nitrite Negative Ua Leuko Large Ua Blood Moderate Ua Color Not Entered Ua Ketones Negative Ua Clarity Not Entered Ua Specific [place] 1.015 1.003-1.030 Ua PH 7.0 5.0-7.5 Ua [...] HIGH-GRADE UROT HELIAL CARCINOMA. 7 LABORATORY [facility] [address] [place] [address] SURGICAL PATHOLOGY REPORT Patient Name:SARINA LINARES :1940 [...] Electronically Signed Out By Anisa Mcmillan D.O. [facility] [place] [address] Technical component performed at [facility], [facility], Histopathology, [address] [place] [address], [facility]. Reported at [facility], [address] [place] [address], [facility]. This report may include immunohistochemical or in-situ hybridization results. Testing was developed and the performance characteristics determined by [email or web address], as required by CLIA '88. The FDA has determined that approval for specific use is not necessary for clinical use. The quality of Hematoxylin and Eosin stains and as applicable, for all immunohistochemical and/or special stains, including positive and negative controls, were reviewed and considered appropriate. ICD codes: Z85.46 CPT4 codes: A: 59347G B: 07542A C: 87315X 8 SPECIMEN DESCRIPTION URINE, COLLECTION METHOD NOT SPECIFIED CULTURE RESULTS MIXED UROGENITAL DEIRDRE; PLEASE SUBMIT A NEW SPEC IMEN IF CLINICALLY INDICATED. REPORT STATUS FINAL 11/08/2020 Procedures Date Code Description Status 03/20/2021 38846 Office/Outpatient Established Lo w MDM 20-29 Min Completed 03/12/2021 80866 Hospital Discharge Services; Mor e Than 30 Minutes Completed 03/11/2021 59331 Subsequent Hospital Care; Per Day, For The Evaluation And Managem Completed 02/14/2021 93692 Office/Outpatient Established Lo w MDM 20-29 Min Completed 01/22/2021 17390 Office/Outpatient Established Lo w MDM 20-29 Min Completed 11/13/2020 13937 Cystectomy, And Ileal Loop Compl eted 11/13/2020 91891 Appendectomy Completed 09/25/2020 41522 Insertion, Of Tempor lasha Indwelling Bladder Catheter Simple Garcia Completed 07/07/2019 76991377 Colonoscopy Completed Medical Devices Description No Information Available Encounters Type Date Location Provider Dx Diagnosis Office Visit 03/20/2021 9:40a [facility]/ A.M.P[facility] Urology PO Ramin Fowler MD Z85.46 Personal history of malignant neoplasm o f prostate Z85.51 Personal history of malignan t neoplasm of bladder K92.2 Gastrointestinal hemorrhage, unspecified K74.60 Unspecified cirrhosis of [place] C22.0 Liver cell carcinoma Office Visit 03/12/2021 4:58p [facility]/ A.M.P. Urol ARCADIO Leos K92.2 Gastrointestinal hemorrhage, unspecified Office Visit 03/11/2021 8:24a [facility]/ A.M.P. Urol ARCADIO Leos K92.2 Gastrointestinal hemorrhage, unspecified Office Visit 02/14/2021 10:00a [facility]/ A.M.P. Urol prudence Poon MD Z85.46 Personal history of malignan t neoplasm of prostate Z85.51 Personal history of malignan t neoplasm of bladder R31.0 Gross hematuria Office Visit 01/22/2021 11:00a [facility]/ A.M.P. Urol ARCADIO Jenkins R10.30 Lower abdominal pain, unspec ified Z85.46 Personal history of malignan t neoplasm of prostate Z85.51 Personal history of malignan t neoplasm of bladder Office Visit 12/05/2020 10:30a [facility] [address]/ A.M.P. 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 Jennife r Cynthia, PA 11/21/2020 N32.0 Bladder-neck obstruction Jennife r Cynthia, PA 2020 C61 Malignant neoplasm of prostate J ennifer Cynthia, PA 11/19/2020 C61 Malignant neoplasm of prostate J ennifer Cynthia, PA 11/19/2020 N32.0 Bladder-neck obstruction Jennife r Cynthia, PA 11/16/2020 C61 Malignant neoplasm of prostate J ennifer Cynthia, PA 11/16/2020 N32.0 Bladder-neck obstruction Jennife r Cynthia, PA 11/15/2020 N32.0 Bladder-neck obstruction Jennife r Cynthia, PA 11/15/2020 C61 Malignant neoplasm of prostate J ennifer Cynthia, PA 11/14/2020 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 Urology * 05/16/2021 2:10 pm - Thierry Poon MD at [facility]/ A.M.P. 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 Created [address] [facility] [address] [place] [address] [phone] KRISTA Fowler M.D. Per Josefa Dobson @ [place] Patient is active with [employer] Patient has benefits for inpatient surgery-hospital Covered @ 100% CPT 67986, 13547, 89966, 93355 (79479, 86603, 13748, 54027)-no prior authorization required Ref# [id number] Per Ayad Goodson @ [place] ([facility] side-auth department) CPT 46677, 05018, 38435, 71043 (17350, 13003, 60944, 95348)-No prior authorization required Ref# [id number] Per [facility] Medicare echeck-Patient is active Per Medicare guidelines-Never needs prior authorization *Based on medical necessity* 10/23/20 MW Created [facility] Urology [address] [place] [address] [phone]
--- OUTSIDE RECORDS SUMMARY | 2021-04-13 14:45 | CCD | Continuity of Care Document ---
Author Sarina Rosa M.D. Organization Unknown Address [address] [place] [address] Phone [phone] Care Team Providers Care Woodworker Helper Name Role Phone Sergey Braun M.D. AUTM [phone] Problems Active Problems Provider Date Sergey hematuria [...] Onset: 02/17/2019 Malignant tumor of bladder neck Thieryr Poon MD Onset : 03/22/2019 Mixed urinary [...] SIG Qnty Indications Ordering Provider Date BCG, [place] Strain - new code eff. 11/29/18 50MG Injection Harry Oviedo MD 05/17/2019 BCG, [place] Strain - new code eff. 11/29/18 50MG Injection WSC2,Nursing Schedule/Proced ure Room 05/17/2019 BCG, [place] Strain - new code eff. 11/29/18 50MG Injection Charbel Yoo MD 9 BCG, [place] Strain - new code eff. 11/29/18 50MG Injection WSC2,Nursing Schedule/Proced ure Room 04/12/2019 BCG, [place] Strain DO Not Use After 9 Dos Injection Ryan Perez P.A. 09/2008 BCG, [place] Strain DO Not Use After 9 Dos Injection Ryan Perez P.A. [facility], [place] Strain DO Not Use After 9 Dos Injection Ryan Perez P.A. BCG, [place] Strain DO Not Use After 9 Dos Injection Sai Barrera.A. BCG, [place] Strain DO Not Use After 9 Dos Injection Ryan Perez P.A. 12/2008 BCG, [place] Strain DO Not Use After 9 Dos [...] After 9 Dos Injection Renée Barrera BCG, [place] Strain DO Not Use After 9 Dos [...] Negative Ua Clarity Not Entered Ua Specific [place] 1.010 1.003-1.030 Ua PH 7.0 5.0-7.5 Ua Bilirubin Negative Ua Urobilinogen 0.2 E.U./dL 0.0-1.0 230 Ua Routine 02/14/2021 [facility] REF TO DR ADDRESS ON ORDER FOR (315)- - Ua Glucose Negative Ua Protein 100 mg/dL Ua Nitrite Negative Ua Leuko Trace Ua Blood Large Ua Color Not Entered Ua Ketones Negative Ua Clarity Not Entered Ua Specific [place] 1.025 1.003-1.030 Ua PH 7.0 5.0-7.5 Ua Bilirubin Negative Ua Urobilinogen 1.0 E.U./dL 0.0-1.0 Urine Cytology 12/05/2020 [facility] [address] [place], [place] [id number] [phone] Clinical History Z85.46 Normal Specimen Adequacy Ileal conduit/ne <SEE NOTE> Normal 2 BodySite Voided - Clean C <SEE NOTE> Normal 3 Gross Description Received in a sp <SEE NOTE> Normal 4 Microscopic Description Moderate numbers <SEE NOTE> Normal 5 Final Diagnosis NEGATIVE FOR HIG <SEE NOTE> Normal 6 CPTCode 24102 Normal PDF Report SEE IMAGE 230 Ua Routine 12/05/2020 [facility] REF TO DR ADDRESS ON ORDER FOR (315)- - Ua Glucose Negative Ua Protein 30 mg/dL Ua Nitrite Negative Ua Leuko Moderate Ua Blood Large Ua Color Not Entered Ua Ketones Negative Ua Clarity Not Entered Ua Specific [place] 1.010 1.003-1.030 Ua PH 6.5 5.0-7.5 Ua Bilirubin Negative Ua Urobilinogen 0.2 E.U./dL 0.0-1.0 Laboratory test finding 11/13/2020 [facility] [address] [place] [address] [phone] Surgical Pathology LABORATORY ALLIA <SEE NOTE> 7 Laboratory test finding 11/06/2020 Laboratory Allia fle - [facility] [address] [facility], [facility] [address] [place] [address] [phone] Urine Culture SPECIMEN DESCRIP <SEE NOTE> 8 230 Ua Routine 11/06/2020 [facility] REF TO DR ADDRESS ON ORDER FOR (315)- - Ua Glucose Negative Ua Protein 30 mg/dL Ua Nitrite Negative Ua Leuko Large Ua Blood Moderate Ua Color Not Entered Ua Ketones Negative Ua Clarity Not Entered Ua Specific [place] 1.015 1.003-1.030 Ua PH 7.0 5.0-7.5 Ua [...] HIGH-GRADE UROT HELIAL CARCINOMA. 7 LABORATORY [facility] [address] [place] [address] SURGICAL PATHOLOGY REPORT Patient Name:SARINA LINARES :1940 [...] Electronically Signed Out By Anisa Mcmillan D.O. [facility] [place] [address] Technical component performed at [facility], [facility], Histopathology, [address] [place] [address], [facility]. Reported at [facility], [address] [place] [address], [facility]. This report may include immunohistochemical or in-situ hybridization results. Testing was developed and the performance characteristics determined by [facility], as required by CLIA '88. The FDA has determined that approval for specific use is not necessary for clinical use. The quality of Hematoxylin and Eosin stains and as applicable, for all immunohistochemical and/or special stains, including positive and negative controls, were reviewed and considered appropriate. ICD codes: Z85.46 CPT4 codes: A: 92215O B: 33699N C: 84578H 8 SPECIMEN DESCRIPTION URINE, COLLECTION METHOD NOT SPECIFIED CULTURE RESULTS MIXED UROGENITAL DEIRDRE; PLEASE SUBMIT A NEW SPEC IMEN IF CLINICALLY INDICATED. REPORT STATUS FINAL 11/08/2020 Procedures Date Code Description Status 03/20/2021 69799 Office/Outpatient Established Lo w MDM 20-29 Min Completed 02/14/2021 78971 Office/Outpatient Established Lo w MDM 20-29 Min Completed 01/22/2021 78295 Office/Outpatient Established Lo w MDM 20-29 Min Completed 11/13/2020 41343 Cystectomy, And Ileal Loop Compl eted 11/13/2020 98398 Appendectomy Completed 09/25/2020 35337 Insertion, Of Tempor lasha Indwelling Bladder Catheter Simple Garcia Completed 07/07/2019 [id number] Colonoscopy Completed Medical Devices Description No Information Available Encounters Type Date Location Provider Dx Diagnosis Office Visit 03/20/2021 9:40a [facility]/ A.M.P. Urology KRISTA Fowler MD Z85.46 Personal history of malignant neoplasm o f prostate Z85.51 Personal history of malignan t neoplasm of bladder K92.2 Gastrointestinal hemorrhage, unspecified K74.60 Unspecified cirrhosis of [place] C22.0 Liver cell carcinoma Office Visit 02/14/2021 10:00a [facility]/ A.M.P. Urol prudence Poon MD Z85.46 Personal history of malignan t neoplasm of prostate Z85.51 Personal history of malignan t neoplasm of bladder R31.0 Gross hematuria Office Visit 01/22/2021 11:00a [facility]/ A.M.P. Urol ARCADIO Jenkins R10.30 Lower abdominal pain, unspec ified Z85.46 Personal history of malignan t neoplasm of prostate Z85.51 Personal history of malignan t neoplasm of bladder Office Visit 12/05/2020 10:30a [facility]/ A.M[facility]P. Urology Tarah Mccormack PA-C Z85.46 Personal [...] history of malignant ne oplasm of prostate ARACDIO Juarez 01/22/2021 Z85.51 Personal history of malignant [...] 2:30 pm - Thierry Poon MD at [facility]/ A.M.P. Urology * 05/16/2021 2:10 pm - Thierry Poon MD at [facility]/ A.M.P. 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 Created [address] [facility] [address] [place] [address] [phone] KRISTA Fowler M.D. Per Josefa Dobson @ [place] Patient is active with [employer] Patient has benefits for inpatient surgery-hospital Covered @ 100% CPT 36223, 90321, 28316, 69672 (87475, 86942, 19721, 71030)-no prior authorization required Ref# [id number] Per Ayad Goodson @ [place] ([facility] side-auth department) CPT 84701, 12198, 04765, 54884 (22043, 73850, 18785, 59031)-No prior authorization required Ref# [id number] Per [facility] Medicare echeck-Patient is active Per Medicare guidelines-Never needs prior authorization *Based on medical necessity* 10/23/20 MW Created [facility] [address] [place] [address] [phone]
--- OUTSIDE RECORDS SUMMARY | 2021-04-13 14:45 | CCD ---
Author Author [facility] Organization [facility] Address Unknown Phone Unavailable Care Team Providers Care Commercial Plumber Name Role Phone Sergey Branu Unavailable PROBLEMS Type Condition ICD9-CM Code HVR92-AB Code Onset Dates Condition S tatus W/U Status Risk SNOMED Code Notes Problem Radiation proctitis K62.7 Active confirmed [id number] He had a full evaluation of his radiation proctitis in the past. He had a colonoscopy in May 2006 and again in August 2016. Problem Type 2 diabetes mellitus with other diabetic kid nick complication E11.29 Active confirmed 10531036 On metformin t herapy since 2011. Last [...] monitoring. Problem Insomnia, unspecified G47.00 Active confirmed 190518522 Started doxepin at bedtime in 09/2013, but he no longer needs that and takes melatonin and Tylenol PM apparently. Problem Essential (primary) hypertension I10 Active conf irmed 47903594 On losartan hydrochlorothiazide and on Lasix also as of late November 2020 because of lower extremity edema. (I switched him from lisinopril HCTZ in September 2012 because of a cough). Blood pressure control is fairly reasonable. I stoppedhydrochlorothiazide and started him on spironolactone as of early December 2020, with further escalation of his spironolactone and Lasix in early 03/2021 due to ascites. Problem Personal history of urinary calculi Z87.442 Acti ve confirmed 655029492 He had right-sided hydroureter related t o a stone, on CT scan in 05/08. Sees Dr. Poon. Problem Thrombocytopenia, unspecified D69.6 Active confirm ed [id number] He has chronic anemia and a history [...] malignant neoplasm of prostate Z85.46 Active confirmed 527795170 Prostate cancer, luis e gnosed on basis of elevated PSA in 2004, Laney score 5+5, treated with prostate seed implantation 08/03, external beam radiation therapy -11/03. He is regularly followed by the urologist. PSAs have been undetectable. He had a prostatectomy with his cystectomy in October 2020. Problem Personal history of malignant neoplasm of bladder Z85.51 Active confirmed 685317026 History of bladder c ancer, resected 01/05, [...] polyp of colon Z86.010 Ac tive confirmed 988271796 Per colonoscopy 08/2016. 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 This is far superior to any other therapy because of his chronic thrombocytopenia and leukopenia and anemia. He also has some neck discomfort and basilar arthritis of the hands. A change in pillows may help his neck and he continues lidocaine on his hands Problem Hypercholesterolemia E78.00 Active confirmed 69935227 His lipids are optimal despite the lack of statin therapy. Because he is diabetic, we need to consider that, but his LDL is already less than 90 and was last evaluated in April 2020. Problem Hepatocellular carcinoma C22.0 Active confirmed 750219578 Diagnosed by biopsy 01/2021--referred to surgical oncology--no note available but some sort of radiation procedure is anticipated after a CT on 03/11/2021. Problem Leg cramps R25.2 Active confirmed 839393915 I continue to recommend magnesium and/or tonic water supplementation. These have been of benefit. 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 Problem Nonalcoholic steatohepatitis (WELLS) K75.81 Acti ve confirmed 555392501 He has a history of mild liver [...] 2012. Problem Chronic anemia D64.9 Active confirmed 94123 3929 He has a chronic low-grade anemia with [...] in mid-01/2021 due to bleeding from his urostomy. A repeat CBC is drawn today, 03/05/2021. Problem Fatty liver K76.0 Active confirmed 18803108 7 He has a fatty liver but this has progressed to cirrhosis and he also has liver cancer. Problem Other ascites R18.8 Active confirmed 517582 000 He requires another paracentesis. I will increase his spironolatone to 25 mg twice a day and increase his Lasix to 40 mg daily as of 03/05/2021. Problem Liver mass, right lobe R16.0 Active confirmed 042233049 ALLERGIES No Known Allergies ENCOUNTERS from 1940 to 2021-03-20 Encounter Location Date Provider Diagnosis [place] [id number] [facility] [phone] [place] [address] Mar, [facility] Vaccine Route Administration Date Status Influenza Pharmacy [...] Tetanus Unknown October 06, 2002 Administere d Influenza (High Dose 65 & up) Unknown [...] Education Language: Question Answer Notes Languages spoken: Slovak Sabianist: Question Answer Notes Sabianist No cheondoism beliefs that would impact health care. Domestic [...] REASON FOR REFERRAL No Information VITAL SIGNS No information MEDICATIONS Medication SIG (Take, Route, Frequency, Duration) Notes Start Da te End Date Status Lidocaine 5 % 1 application to affected kn ee Externally Three times a day as needed for pain for 30 days Acti ve Lasix 40 MG 1 tablet Orally Once a day for 90 days Nov, Active Losartan Potassium 100 MG 1 tablet Orally Once a day for 90 days Dec, Active metFORMIN HCl ER 500 MG 2 tablets with evening meal Orally Once a day for 90 days Active Colace 100 MG 1 cap Orally twice daily Active Abdominal Binder/Elastic 3XL - as directed Wrap abdome n nightly to keep urostomy drainage system in place nightly; Dx R18 for 100 days Mar, Active Flonase Allergy Relief 50 MCG/ACT 2 spray in each nost ril Nasally Once a day for 30 days Active Melatonin 10 MG 1 tab Orally once daily Active Tylenol PM Extra Strength 500-25 MG 1 tablet at bedtime as n eeded Orally Daily Active hydrOXYzine HCl 10 MG 1 tablet Orally every 4 hour s as needed for itching for 30 Days Dec, Active Ferrous Sulfate 325 (65 Fe) MG 1 tablet Orally Once a day on Thu/Thu/Thu for 90 days Active Spironolactone 25 MG 1 tablet Orally Twice a day for 90 days Dec, Active PROCEDURES No Information RESULTS No Results REASON FOR VISIT refill-lidocaine MEDICAL (GENERAL) HISTORY Type Description Date Medical [...] Fowler 11/13/2020 Surgical History Paracentesis Hospitalization History [place]- prostatectomy surgery 11/13- 11/22/2020 Goals Section No Information Health Concerns No Information MEDICAL EQUIPMENT No Information MENTAL STATUS No Information FUNCTIONAL STATUS No Information ASSESSMENTS No Information PLAN OF TREATMENT Medication Medication Name Sig Start Date Stop Date Lidocaine 5 % 1 application to affected kn ee Externally Three times a day as needed for pain for 30 days hydrOXYzine HCl 10 MG 1 tablet Orally every 4 hour s as needed for itching for 30 Days Dec, Abdominal Binder/Elastic 3XL - as directed Wrap abdome n nightly to keep urostomy drainage system in place nightly; Dx R18 for 100 days Mar, Ferrous Sulfate 325 (65 Fe) MG 1 tablet Orally Once a day on Thu/Thu/Thu for 90 days Lasix 40 MG 1 tablet Orally Once a day for 90 days Nov, Spironolactone 25 MG 1 tablet Orally Twice a day for 90 days Dec, Next Appt Details Provider Name:Sergey Braun, 2021-04-02 01 :00:00 PM, [address] [place] [address], , [place], [address], Provider Name:Sergey Braun 2021-05-06 04 :00:00 PM, [address] [place] [address], , [place], [address], Provider Name:Sergey Braun, 2021-07-02 03 :30:00 PM, [address] [place] [address], , [place], [address], Insurance Providers Payer Name Payer Address Payer Phone Insured Name Patient Relati onship to Insured Coverage Start Date Coverage End Date MEDICARE Part A and B [address] [facility] [id number] SARINA LINARES [facility] [address] [facility] [id number] SARINA LINARES
--- OUTSIDE RECORDS SUMMARY | 2021-04-13 14:45 | CCD | Continuity of Care Document ---
Author Sarina Rosa M.D. Organization Unknown Address [address] [place] [address] Phone [phone] Care Team Providers Care Open Winder Name Role Phone Sergey Braun M.D. AUTM [phone] Problems Active Problems Provider Date Sergey hematuria [...] SIG Qnty Indications Ordering Provider Date [facility], [place] Strain - new code eff. 11/29/18 50MG Injection Harry Oviedo MD 05/17/2019 [facility], [place] Strain - new code eff. 11/29/18 50MG Injection WSC2,Nursing Schedule/Proced ure Room 05/17/2019 [facility], [place] Strain - new code eff. 11/29/18 50MG Injection Charbel Yoo MD 9 [facility], [place] Strain - new code eff. 11/29/18 50MG Injection WSC2,Nursing Schedule/Proced ure Room 04/12/2019 [facility] [place] St[place] DO Not Use After 9 Dos Injection Ryan Perez P.A. 09/2008 [facility] [place] Strain DO Not Use After 9 Dos Injection Ryan Perez P.A. [facility] [place] St[place] DO Not Use After 9 Dos Injection Ryan Perez P.A. [facility] [place]rain DO Not Use After 9 Dos Injection Sai Barrera.A. [facility] [place] DO Not Use After 9 Dos Injection Ryan Perez P.A. 12/2008 [facility] [place] DO Not Use After 9 Dos [...] After 9 Dos Injection Renée Barrera [facility], [place] Strain DO Not Use After 9 Dos [...] Negative Ua Clarity Not Entered Ua Specific [place] 1.010 1.003-1.030 Ua PH 7.0 5.0-7.5 Ua Bilirubin Negative Ua Urobilinogen 0.2 E.U./dL 0.0-1.0 230 Ua Routine 02/14/2021 [facility] REF TO DR ADDRESS ON ORDER FOR (315)- - Ua Glucose Negative Ua Protein 100 mg/dL Ua Nitrite Negative Ua Leuko Trace Ua Blood Large Ua Color Not Entered Ua Ketones Negative Ua Clarity Not Entered Ua Specific [place] 1.025 1.003-1.030 Ua PH 7.0 5.0-7.5 Ua Bilirubin Negative Ua Urobilinogen 1.0 E.U./dL 0.0-1.0 Urine Cytology 12/05/2020 [facility] [address] [place], [place] [address] [phone] Clinical History Z85.46 Normal Specimen Adequacy Ileal conduit/ne <SEE NOTE> Normal 2 BodySite Voided - Clean C <SEE NOTE> Normal 3 Gross Description Received in a sp <SEE NOTE> Normal 4 Microscopic Description Moderate numbers <SEE NOTE> Normal 5 Final Diagnosis NEGATIVE FOR HIG <SEE NOTE> Normal 6 CPTCode 87425 Normal PDF Report SEE IMAGE 230 Ua Routine 12/05/2020 [facility] REF TO DR ADDRESS ON ORDER FOR (315)- - Ua Glucose Negative Ua Protein 30 mg/dL Ua Nitrite Negative Ua Leuko Moderate Ua Blood Large Ua Color Not Entered Ua Ketones Negative Ua Clarity Not Entered Ua Specific [place] 1.010 1.003-1.030 Ua PH 6.5 5.0-7.5 Ua Bilirubin Negative Ua Urobilinogen 0.2 E.U./dL 0.0-1.0 Laboratory test finding 11/13/2020 [facility] [address] [place] [address] [phone] Surgical Pathology LAB[facility] <SEE NOTE> 7 Laboratory test finding 11/06/2020 Laboratory Allia dee - [facility] [address] [facility] [address] [place] [address] [phone] Urine Culture SPECIMEN DESCRIP <SEE NOTE> 8 230 Ua Routine 11/06/2020 [facility] REF TO DR ADDRESS ON ORDER FOR (315)- - Ua Glucose Negative Ua Protein 30 mg/dL Ua Nitrite Negative Ua Leuko Large Ua Blood Moderate Ua Color Not Entered Ua Ketones Negative Ua Clarity Not Entered Ua Specific [place] 1.015 1.003-1.030 Ua PH 7.0 5.0-7.5 Ua [...] HIGH-GRADE UROT HELIAL CARCINOMA. 7 LAB[facility]ATORY [facility] [address] [place] [address] SURGICAL PATHOLOGY REPORT Patient Name:SARINA LINARES :1940 [...] Signed Out By Anisa Mcmillan D.O. [facility] [place] [address] Technical component performed at [facility], [facility], Histopathology, [address] [place] [address], [facility]. Reported at [facility], [address] [place] [address], [facility]. This report may include immunohistochemical or in-situ hybridization results. Testing was developed and the performance characteristics determined by [facility], as required by CLIA '88. The FDA has determined that approval for specific use is not necessary for clinical use. The quality of Hematoxylin and Eosin stains and as applicable, for all immunohistochemical and/or special stains, including positive and negative controls, were reviewed and considered appropriate. ICD codes: Z85.46 CPT4 codes: A: 20080R B: 99101O C: 52212N 8 SPECIMEN DESCRIPTION URINE, COLLECTION METHOD NOT SPECIFIED CULTURE RESULTS MIXED UROGENITAL DEIRDRE; PLEASE SUBMIT A NEW SPEC IMEN IF CLINICALLY INDICATED. REPORT STATUS FINAL 11/08/2020 Procedures Date Code Description Status 03/20/2021 05973 Office/Outpatient Established Lo w MDM 20-29 Min Completed 02/14/2021 98231 Office/Outpatient Established Lo w MDM 20-29 Min Completed 01/22/2021 36921 Office/Outpatient Established Lo w MDM 20-29 Min Completed 11/13/2020 82280 Cystectomy, And Ileal Loop Compl eted 11/13/2020 24718 Appendectomy Completed 09/25/2020 34312 Insertion, Of Tempor lasha Indwelling Bladder Catheter Simple Garcia Completed 07/07/2019 45220860 Colonoscopy Completed Medical Devices Description No Information Available Encounters Type Date Location Provider Dx Diagnosis Office Visit 03/20/2021 9:40a [facility]/ [facility] 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 Urol prudence Poon MD Z85.46 Personal history of malignan t neoplasm of prostate Z85.51 Personal history of malignan t neoplasm of bladder R31.0 Gross hematuria Office Visit 01/22/2021 11:00a [facility]/ A.M.[facility]. Urol ARCADIO Jenkins R10.30 Lower abdominal pain, unspec ified Z85.46 Personal history of malignan t neoplasm of prostate Z85.51 Personal history of malignan t neoplasm of bladder Office Visit 12/05/2020 10:30a [facility]/ [facility] Urology Tarah Mccormack PA-C Z85.46 Personal history of malignan t neoplasm of prostate Z85.51 Personal history of malignan t neoplasm of bladder N39.46 Mixed incontinence M54.5 Low back pain Assessments Date Code Description Provider 03/20/2021 Z85.46 Personal history of malignant ne oplasm of prostate KIRSTA Fowler MD 03/20/2021 Z85.51 Personal history of [...] 2:30 pm - Thierry Poon MD at [facility]/ [facility] Urology * 05/16/2021 2:10 pm - Thierry Poon MD at [facility]/ [facility] 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 Created [address] [facility] [address] [place] [address] [phone] KRISTA Fowler M.D. Per Josefa Dobson @ [place] Patient is active with [employer] [facility] Patient has benefits for inpatient surgery-hospital Covered @ 100% CPT 75538, 77719, 83852, 01598 (74202, 67272, 25597, 33243)-no prior authorization required Ref# [id number] Per Ayad Goodson @ [place] ([facility] side-auth department) CPT 09857, 73495, 45576, 68424 (78503, 75504, 79667, 58762)-No prior authorization required Ref# [id number] [facility] e[facility]-Patient is active Per Medicare guidelines-Never needs prior authorization *Based on medical necessity* 10/23/20 MW Created [facility] [address] [place] [address] [phone]
--- OUTSIDE RECORDS SUMMARY | 2021-04-13 14:45 | CCD | Continuity of Care Document ---
Author Sarina Rosa M.D. Organization Unknown Address [address] [place] [address] Phone [phone] Care Team Providers Care Hedis Nurse Name Role Phone Sergey Braun M.D. AUTM [phone] Problems Active Problems Provider Date Sergey hematuria [...] SIG Qnty Indications Ordering Provider Date [facility] [place] Strain - new code eff. 11/29/18 50MG Injection Harry Oviedo MD 05/17/2019 [facility] [place] Strain - new code eff. 11/29/18 50MG Injection WSC2,Nursing Schedule/Proced ure Room 05/17/2019 [facility] [place] Strain - new code eff. 11/29/18 50MG Injection Charbel Yoo MD 9 [facility], [place] Strain - new code eff. 11/29/18 50MG Injection WSC2,Nursing Schedule/Proced ure Room 04/12/2019 [facility] [place] Strain DO Not Use After 9 Dos Injection Ryan Perez P.A. 09/2008 [facility] [place] Strain DO Not Use After 9 Dos Injection Ryan Perez P.A. [facility] [place] Strain DO Not Use After 9 Dos Injection Ryan Perez P.A. [facility] [place] Strain DO Not Use After 9 Dos Injection Sai Barrera.A. [facility] [place] Strain DO Not Use After 9 Dos Injection Ryan Perez P.A. 12/2008 [facility] [place] Strain DO Not Use After 9 Dos [...] After 9 Dos Injection Renée Barrera [facility] [place] Strain DO Not Use After 9 Dos [...] Negative Ua Clarity Not Entered Ua Specific [place] 1.010 1.003-1.030 Ua PH 7.0 5.0-7.5 Ua Bilirubin Negative Ua Urobilinogen 0.2 E.U./dL 0.0-1.0 230 Ua Routine 02/14/2021 [facility] REF TO DR ADDRESS ON ORDER FOR (315)- - Ua Glucose Negative Ua Protein 100 mg/dL Ua Nitrite Negative Ua Leuko Trace Ua Blood Large Ua Color Not Entered Ua Ketones Negative Ua Clarity Not Entered Ua Specific [place] 1.025 1.003-1.030 Ua PH 7.0 5.0-7.5 Ua Bilirubin Negative Ua Urobilinogen 1.0 E.U./dL 0.0-1.0 Urine Cytology 12/05/2020 [facility] [address] [place], [place] [address] [phone] Clinical History Z85.46 Normal Specimen Adequacy Ileal conduit/ne <SEE NOTE> Normal 2 BodySite Voided - Clean C <SEE NOTE> Normal 3 Gross Description Received in a sp <SEE NOTE> Normal 4 Microscopic Description Moderate numbers <SEE NOTE> Normal 5 Final Diagnosis NEGATIVE FOR HIG <SEE NOTE> Normal 6 CPTCode 31691 Normal PDF Report SEE IMAGE 230 Ua Routine 12/05/2020 [facility] REF TO DR ADDRESS ON ORDER FOR (315)- - Ua Glucose Negative Ua Protein 30 mg/dL Ua Nitrite Negative Ua Leuko Moderate Ua Blood Large Ua Color Not Entered Ua Ketones Negative Ua Clarity Not Entered Ua Specific [place] 1.010 1.003-1.030 Ua PH 6.5 5.0-7.5 Ua Bilirubin Negative Ua Urobilinogen 0.2 E.U./dL 0.0-1.0 Laboratory test finding 11/13/2020 [facility] [address] [place] [address] [phone] Surgical Pathology LABORATORY [facility] <SEE NOTE> 7 Laboratory test finding 11/06/2020 Laboratory [facility]ia aze - [facility] [address] [facility] [address] [place] [address] [phone] Urine Culture SPECIMEN DESCRIP <SEE NOTE> 8 230 Ua Routine 11/06/2020 [facility] REF TO DR ADDRESS ON ORDER FOR (315)- - Ua Glucose Negative Ua Protein 30 mg/dL Ua Nitrite Negative Ua Leuko Large Ua Blood Moderate Ua Color Not Entered Ua Ketones Negative Ua Clarity Not Entered Ua Specific [place] 1.015 1.003-1.030 Ua PH 7.0 5.0-7.5 Ua [...] HIGH-GRADE UROT HELIAL CARCINOMA. 7 LAB[facility]ATORY [facility] [address] [place] [address] SURGICAL PATHOLOGY REPORT Patient Name:SARINA LINARES :1940 [...] Electronically Signed Out By Anisa Mcmillan D.O. [facility] [place] [address] Technical component performed at [facility], [facility], Histopathology, [address] [place] [address], [facility]. Reported at [facility], [address] [place] [address], [facility]. This report may include immunohistochemical or in-situ hybridization results. Testing was developed and the performance characteristics determined by [facility], as required by CLIA '88. The FDA has determined that approval for specific use is not necessary for clinical use. The quality of Hematoxylin and Eosin stains and as applicable, for all immunohistochemical and/or special stains, including positive and negative controls, were reviewed and considered appropriate. ICD codes: Z85.46 CPT4 codes: A: 59555A B: 61335J C: 21812J 8 SPECIMEN DESCRIPTION URINE, COLLECTION METHOD NOT SPECIFIED CULTURE RESULTS MIXED UROGENITAL DEIRDRE; PLEASE SUBMIT A NEW SPEC IMEN IF CLINICALLY INDICATED. REPORT STATUS FINAL 11/08/2020 Procedures Date Code Description Status 03/20/2021 35621 Office/Outpatient Established Lo w MDM 20-29 Min Completed 02/14/2021 32089 Office/Outpatient Established Lo w MDM 20-29 Min Completed 01/22/2021 13926 Office/Outpatient Established Lo w MDM 20-29 Min Completed 11/13/2020 15267 Cystectomy, And Ileal Loop Compl eted 11/13/2020 86445 Appendectomy Completed 09/25/2020 80477 Insertion, Of Tempor lasha Indwelling Bladder Catheter Simple Garcia Completed 07/07/2019 98974326 Colonoscopy Completed Medical Devices Description No Information Available Encounters Type Date Location Provider Dx Diagnosis Office Visit 03/20/2021 9:40a [facility]/ [facility] 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 Urol ARCADIO Jenkins R10.30 Lower abdominal pain, unspec ified Z85.46 Personal history of malignan t neoplasm of prostate Z85.51 Personal history of malignan t neoplasm of bladder Office Visit 12/05/2020 10:30a [facility]/ [facility] Urology Tarah Mccormack PA-C Z85.46 [...] 2:30 pm - Thierry Poon MD at [facility]/ [facility] Urology * 05/16/2021 2:10 pm - Thierry Poon MD at [facility]/ [facility] 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 Created [address] [facility] [address] [place] [address] [phone] KRISTA Fowler M.D. Per Josefa Dobson @ [place] Patient is active with [employer] Patient has benefits for inpatient surgery-hospital Covered @ 100% CPT 53088, 16729, 78617, 87363 (99791, 75916, 96754, 58198)-no prior authorization required Ref# [id number] Per Ayad Goodson @ [place] ([facility] side-auth department) CPT 94491, 08084, 32784, 74133 (89360, 78556, 59744, 27721)-No prior authorization required Ref# [id number] [facility]-Patient is active Per Medicare guidelines-Never needs prior authorization *Based on medical necessity* 10/23/20 MW Created [facility] [address] [place] [address] [phone]
--- OUTSIDE RECORDS SUMMARY | 2021-04-13 14:45 | CCD | Continuity of Care Document ---
Author Sarina Rosa M.D. Organization Unknown Address [address] [place] [address] Phone [phone] Care Team Providers Care Telegraph Printer Mechanic Name Role Phone Sergey Braun M.D. AUTM [phone] Problems Active Problems Provider Date Sergey hematuria [...] SIG Qnty Indications Ordering Provider Date BCG, [place] Strain - new code eff. 11/29/18 50MG Injection Harry Oviedo MD 05/17/2019 BCG, [place] Strain - new code eff. 11/29/18 50MG Injection WSC2,Nursing Schedule/Proced ure Room 05/17/2019 BCG, [place] Strain - new code eff. 11/29/18 50MG Injection Charbel Yoo MD 9 BCG, [place] Strain - new code eff. 11/29/18 50MG Injection WSC2,Nursing Schedule/Proced ure Room 04/12/2019 BCG, [place] Strain DO Not Use After 9 Dos Injection Ryan Perez P.A. 09/2008 BCG, [place] Strain DO Not Use After 9 Dos Injection Ryan Perez P.A. BCG, [place] Strain DO Not Use After 9 Dos Injection Ryan Perez P.A. BCG, [place] Strain DO Not Use After 9 Dos Injection Sai Barrera.A. BCG, [place] Strain DO Not Use After 9 Dos Injection Ryan Perez P.A. 12/2008 BCG, [place] Strain DO Not Use After 9 Dos [...] After 9 Dos Injection Renée Barrera BCG, [place] Strain DO Not Use After 9 Dos [...] Negative Ua Clarity Not Entered Ua Specific [place] 1.010 1.003-1.030 Ua PH 7.0 5.0-7.5 Ua Bilirubin Negative Ua Urobilinogen 0.2 E.U./dL 0.0-1.0 230 Ua Routine 02/14/2021 [facility] REF TO DR ADDRESS ON ORDER FOR (315)- - Ua Glucose Negative Ua Protein 100 mg/dL Ua Nitrite Negative Ua Leuko Trace Ua Blood Large Ua Color Not Entered Ua Ketones Negative Ua Clarity Not Entered Ua Specific [place] 1.025 1.003-1.030 Ua PH 7.0 5.0-7.5 Ua Bilirubin Negative Ua Urobilinogen 1.0 E.U./dL 0.0-1.0 Urine Cytology 12/05/2020 [facility] [address] [place], [place] [address] [phone] Clinical History Z85.46 Normal Specimen Adequacy Ileal conduit/ne <SEE NOTE> Normal 2 BodySite Voided - Clean C <SEE NOTE> Normal 3 Gross Description Received in a sp <SEE NOTE> Normal 4 Microscopic Description Moderate numbers <SEE NOTE> Normal 5 Final Diagnosis NEGATIVE FOR HIG <SEE NOTE> Normal 6 CPTCode 81811 Normal PDF Report SEE IMAGE 230 Ua Routine 12/05/2020 [facility] REF TO DR ADDRESS ON ORDER FOR (315)- - Ua Glucose Negative Ua Protein 30 mg/dL Ua Nitrite Negative Ua Leuko Moderate Ua Blood Large Ua Color Not Entered Ua Ketones Negative Ua Clarity Not Entered Ua Specific [place] 1.010 1.003-1.030 Ua PH 6.5 5.0-7.5 Ua Bilirubin Negative Ua Urobilinogen 0.2 E.U./dL 0.0-1.0 Laboratory test finding 11/13/2020 [facility] [address] [place] [address] [phone] Surgical Pathology LABORATORY ALLIA <SEE NOTE> 7 Laboratory test finding 11/06/2020 Laboratory Allia ale - [facility] [address] [facility], [facility] [address] [place] [address] [phone] Urine Culture SPECIMEN DESCRIP <SEE NOTE> 8 230 Ua Routine 11/06/2020 [facility] REF TO DR ADDRESS ON ORDER FOR (315)- - Ua Glucose Negative Ua Protein 30 mg/dL Ua Nitrite Negative Ua Leuko Large Ua Blood Moderate Ua Color Not Entered Ua Ketones Negative Ua Clarity Not Entered Ua Specific [place] 1.015 1.003-1.030 Ua PH 7.0 5.0-7.5 Ua [...] HIGH-GRADE UROT HELIAL CARCINOMA. 7 [facility]ATORY [facility] [address] [place] [address] SURGICAL PATHOLOGY REPORT Patient Name:SARINA LINARES :1940 [...] Electronically Signed Out By Anisa Mcmillan D.O. [facility] [place] [address] Technical component performed at [facility], [facility], Histopathology, [address] [place] [address], [facility]. Reported at [facility], [address] [place] [address], [facility]. This report may include immunohistochemical or in-situ hybridization results. Testing was developed and the performance characteristics determined by [facility] [employer] [facility], as required by CLIA '88. The FDA has determined that approval for specific use is not necessary for clinical use. The quality of Hematoxylin and Eosin stains and as applicable, for all immunohistochemical and/or special stains, including positive and negative controls, were reviewed and considered appropriate. ICD codes: Z85.46 CPT4 codes: A: 01272M B: 87432G C: 50137L 8 SPECIMEN DESCRIPTION URINE, COLLECTION METHOD NOT SPECIFIED CULTURE RESULTS MIXED UROGENITAL DEIRDRE; PLEASE SUBMIT A NEW SPEC IMEN IF CLINICALLY INDICATED. REPORT STATUS FINAL 11/08/2020 Procedures Date Code Description Status 03/20/2021 55443 Office/Outpatient Established Lo w MDM 20-29 Min Completed 02/14/2021 18116 Office/Outpatient Established Lo w MDM 20-29 Min Completed 01/22/2021 13229 Office/Outpatient Established Lo w MDM 20-29 Min Completed 11/13/2020 27847 Cystectomy, And Ileal Loop Compl eted 11/13/2020 07937 Appendectomy Completed 09/25/2020 51430 Insertion, Of Tempor lasha Indwelling Bladder Catheter Simple Garcia Completed 07/07/2019 [id number] Colonoscopy Completed Medical Devices Description No Information Available Encounters Type Date Location Provider Dx Diagnosis Office Visit 03/20/2021 9:40a [facility]/ A.M.P. Urology KRISTA Fowler MD Z85.46 Personal history of malignant neoplasm o f prostate Z85.51 Personal history of malignan t neoplasm of bladder K92.2 Gastrointestinal hemorrhage, unspecified K74.60 Unspecified cirrhosis of [place] er C22.0 Liver cell carcinoma Office Visit 02/14/2021 10:00a [facility]/ A.M.P. 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 Urol ARCADIO Jenkins R10.30 Lower abdominal pain, unspec ified Z85.46 Personal history of malignan t neoplasm of prostate Z85.51 Personal history of malignan t neoplasm of bladder Office Visit 12/05/2020 10:30a [facility]/ A.M.P. Urology Tarah Mccormack PA-C Z85.46 Personal [...] 2:30 pm - Thierry Poon MD at [facility]/ A.M.P. Urology * 05/16/2021 2:10 pm - Thierry Poon MD at [facility]/ A.M.P. 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 Created [address] [facility] [address] [place] [address] [phone] KRISTA Fowler M.D. Per Josefa Dobson @ [place] Patient is active with [employer] [facility] Patient has benefits for inpatient surgery-hospital Covered @ 100% CPT 18770, 97783, 92603, 47090 (14698, 25817, 43385, 54173)-no prior authorization required Ref# [id number] Per Ayad Goodson @ [place] ([facility] side-auth department) CPT 30076, 88601, 22212, 83740 (26622, 47918, 55614, 00261)-No prior authorization required Ref# [id number] [facility]-Patient is active Per Medicare guidelines-Never needs prior authorization *Based on medical necessity* 10/23/20 MW Created [facility] [address] [place] [address] [phone]
--- OUTSIDE RECORDS SUMMARY | 2021-04-13 14:45 | CCD | Continuity of Care Document ---
Author Sarina Rosa M.D. Organization Unknown Address [address] [place] [address] Phone [phone] Care Team Providers Care Senior It Security Analyst Name Role Phone Sergey Braun M.D. AUTM [phone] Problems Active Problems Provider Date Sergey hematuria [...] MD Onset: 03/22/2020 Bladder neck obstruction PO aRmin Fowler MD Onset: 04/20/20 Adenocarcinoma of prostate [...] SIG Qnty Indications Ordering Provider Date BCG, [place] Strain - new code eff. 11/29/18 50MG Injection Harry Oviedo MD 05/17/2019 BCG, [place] Strain - new code eff. 11/29/18 50MG Injection WSC2,Nursing Schedule/Proced ure Room 05/17/2019 BCG, [place] Strain - new code eff. 11/29/18 50MG Injection Charbel Yoo MD 9 BCG, [place] Strain - new code eff. 11/29/18 50MG Injection WSC2,Nursing Schedule/Proced ure Room 04/12/2019 BCG, [place] Strain DO Not Use After 9 Dos Injection Ryan Perez P.A. 09/2008 BCG, [place] Strain DO Not Use After 9 Dos Injection Ryan Perez P.A. BCG, [place] Strain DO Not Use After 9 Dos Injection Ryan Perez P.A. BCG, [place] Strain DO Not Use After 9 Dos Injection Sai Barrera.A. BCG, [place] Strain DO Not Use After 9 Dos Injection yRan Perez P.A. 12/2008 BCG, [place] Strain DO Not Use After 9 Dos Injection Charity Mcneill R.N., M. S., N.P. 12/15/2007 BCG, [place] Strain DO Not Use After 9 Dos Injection Charity Mcneill R.N., M. S., N.P. 12/08/2007 BCG, [place] Strain DO Not Use After 9 Dos Injection Charity Mcneill R.N., M. S., N.P. 12/02/2007 BCG, [place] Strain DO Not Use After 9 Dos Injection Renée Barrera BCG, [place] Strain DO Not Use After 9 Dos Injection Renée Barrera BCG, [place] Strain DO Not Use After 9 Dos [...] Negative Ua Clarity Not Entered Ua Specific [place] 1.010 1.003-1.030 Ua PH 7.0 5.0-7.5 Ua Bilirubin Negative Ua Urobilinogen 0.2 E.U./dL 0.0-1.0 230 Ua Routine 02/14/2021 [facility] REF TO DR ADDRESS ON ORDER FOR (315)- - Ua Glucose Negative Ua Protein 100 mg/dL Ua Nitrite Negative Ua Leuko Trace Ua Blood Large Ua Color Not Entered Ua Ketones Negative Ua Clarity Not Entered Ua Specific [place] 1.025 1.003-1.030 Ua PH 7.0 5.0-7.5 Ua Bilirubin Negative Ua Urobilinogen 1.0 E.U./dL 0.0-1.0 Urine Cytology 12/05/2020 [facility] [address] [place], [place] [address] [phone] Clinical History Z85.46 Normal Specimen Adequacy Ileal conduit/ne <SEE NOTE> Normal 2 BodySite Voided - Clean C <SEE NOTE> Normal 3 Gross Description Received in a sp <SEE NOTE> Normal 4 Microscopic Description Moderate numbers <SEE NOTE> Normal 5 Final Diagnosis NEGATIVE FOR HIG <SEE NOTE> Normal 6 CPTCode 31851 Normal PDF Report SEE IMAGE 230 Ua Routine 12/05/2020 [facility] REF TO DR ADDRESS ON ORDER FOR (315)- - Ua Glucose Negative Ua Protein 30 mg/dL Ua Nitrite Negative Ua Leuko Moderate Ua Blood Large Ua Color Not Entered Ua Ketones Negative Ua Clarity Not Entered Ua Specific [place] 1.010 1.003-1.030 Ua PH 6.5 5.0-7.5 Ua Bilirubin Negative Ua Urobilinogen 0.2 E.U./dL 0.0-1.0 Laboratory test finding 11/13/2020 [facility] [address] [place] [address] [phone] Surgical Pathology LABORATORY ALLIA <SEE NOTE> 7 Laboratory test finding 11/06/2020 Laboratory Allia mde - [facility] [address] [facility], [facility] [address] [place] [address] [phone] Urine Culture SPECIMEN DESCRIP <SEE NOTE> 8 230 Ua Routine 11/06/2020 [facility] REF TO DR ADDRESS ON ORDER FOR (315)- - Ua Glucose Negative Ua Protein 30 mg/dL Ua Nitrite Negative Ua Leuko Large Ua Blood Moderate Ua Color Not Entered Ua Ketones Negative Ua Clarity Not Entered Ua Specific [place] 1.015 1.003-1.030 Ua PH 7.0 5.0-7.5 Ua [...] HIGH-GRADE UROT HELIAL CARCINOMA. 7 LAB[facility]ATORY [facility] [address] [place] [address] SURGICAL PATHOLOGY REPORT Patient Name:SARINA LINARES :1940 [...] Electronically Signed Out By Anisa Mcmillan D.O. [facility] [place] [address] Technical component performed at [facility], [facility], Histopathology, [address] [place] [address], [facility]. Reported at [facility], [address] [place] [address], [facility]. This report may include immunohistochemical or in-situ hybridization results. Testing was developed and the performance characteristics determined by [facility], as required by CLIA '88. The FDA has determined that approval for specific use is not necessary for clinical use. The quality of Hematoxylin and Eosin stains and as applicable, for all immunohistochemical and/or special stains, including positive and negative controls, were reviewed and considered appropriate. ICD codes: Z85.46 CPT4 codes: A: 24946Z B: 51827V C: 89855D 8 SPECIMEN DESCRIPTION URINE, COLLECTION METHOD NOT SPECIFIED CULTURE RESULTS MIXED UROGENITAL DEIRDRE; PLEASE SUBMIT A NEW SPEC IMEN IF CLINICALLY INDICATED. REPORT STATUS FINAL 11/08/2020 Procedures Date Code Description Status 03/20/2021 09605 Office/Outpatient Established Lo w MDM 20-29 Min Completed 02/14/2021 15967 Office/Outpatient Established Lo w MDM 20-29 Min Completed 01/22/2021 15613 Office/Outpatient Established Lo w MDM 20-29 Min Completed 11/13/2020 81846 Cystectomy, And Ileal Loop Compl eted 11/13/2020 42269 Appendectomy Completed 09/25/2020 00388 Insertion, Of Tempor lasha Indwelling Bladder Catheter Simple Garcia Completed 07/07/2019 [id number] Colonoscopy Completed Medical Devices Description No Information Available Encounters Type Date Location Provider Dx Diagnosis Office Visit 03/20/2021 9:40a [facility]/ A.M.P. 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 Urol prudence Poon MD Z85.46 Personal history of malignan t neoplasm of prostate Z85.51 Personal history of malignan t neoplasm of bladder R31.0 Gross hematuria Office Visit 01/22/2021 11:00a [facility]/ A.M.P. Urol ARCADIO Jenkins R10.30 Lower abdominal pain, unspec ified Z85.46 Personal history of malignan t neoplasm of prostate Z85.51 Personal history of malignan t neoplasm of bladder Office Visit 12/05/2020 10:30a [facility]/ A.M.P. Urology Tarah Mccormack PA-C [...] 2:30 pm - Thierry Poon MD at [facility]/ A.M.P. Urology * 05/16/2021 2:10 pm - Thierry Poon MD at [facility]/ A.M.P. 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 Created [address] [facility] [address] [place] [address] [phone] KRISTA Fowler M.D. Per Josefa Dobson @ [place] Patient is active with [employer] [facility] Patient has benefits for inpatient surgery-hospital Covered @ 100% CPT 95666, 44058, 74596, 09404 (78988, 37546, 99338, 10614)-no prior authorization required Ref# [id number] Per Ayad Goodson @ [place] ([facility] side-auth department) CPT 26289, 94338, 57600, 22801 (66509, 29105, 84492, 76137)-No prior authorization required Ref# [id number] Per [facility] e[facility]-Patient is active Per Medicare guidelines-Never needs prior authorization *Based on medical necessity* 10/23/20 MW Created [facility] [address] [place] [address] [phone]
--- OUTSIDE RECORDS SUMMARY | 2021-04-13 14:45 | CCD | Continuity of Care Document ---
Author Sarina Rosa M.D. Organization Unknown Address [address] [place] [address] Phone [phone] Care Team Providers Care Food And Beverage Checker Name Role Phone Sergey Braun M.D. AUTM [phone] Problems Active Problems Provider Date Sergey hematuria [...] SIG Qnty Indications Ordering Provider Date BCG, [place] Strain - new code eff. 11/29/18 50MG Injection Harry Oviedo MD 05/17/2019 BCG, [place] Strain - new code eff. 11/29/18 50MG Injection WSC2,Nursing Schedule/Proced ure Room 05/17/2019 BCG, [place] Strain - new code eff. 11/29/18 50MG Injection Charbel Yoo MD 9 BCG, [place] Strain - new code eff. 11/29/18 50MG Injection WSC2,Nursing Schedule/Proced ure Room 04/12/2019 BCG, [place] Strain DO Not Use After 9 Dos Injection Ryan Perez P.A. 09/2008 BCG, [place] Strain DO Not Use After 9 Dos Injection Ryan ePrez P.A. BCG, [place] Strain DO Not Use After 9 Dos Injection Ryan Perez P.A. BCG, [place] Strain DO Not Use After 9 Dos Injection Sai Barrera.A. BCG, [place] Strain DO Not Use After 9 Dos Injection Ryan Perez P.A. 12/2008 BCG, [place] Strain DO Not Use After 9 Dos [...] After 9 Dos Injection Renée Barrera BCG, [place] Strain DO Not Use After 9 Dos [...] Negative Ua Clarity Not Entered Ua Specific [place] 1.010 1.003-1.030 Ua PH 7.0 5.0-7.5 Ua Bilirubin Negative Ua Urobilinogen 0.2 E.U./dL 0.0-1.0 230 Ua Routine 02/14/2021 [facility] REF TO DR ADDRESS ON ORDER FOR (315)- - Ua Glucose Negative Ua Protein 100 mg/dL Ua Nitrite Negative Ua Leuko Trace Ua Blood Large Ua Color Not Entered Ua Ketones Negative Ua Clarity Not Entered Ua Specific [place] 1.025 1.003-1.030 Ua PH 7.0 5.0-7.5 Ua Bilirubin Negative Ua Urobilinogen 1.0 E.U./dL 0.0-1.0 Urine Cytology 12/05/2020 [facility] [address] [place], [place] [id number] [phone] Clinical History Z85.46 Normal Specimen Adequacy Ileal conduit/ne <SEE NOTE> Normal 2 BodySite Voided - Clean C <SEE NOTE> Normal 3 Gross Description Received in a sp <SEE NOTE> Normal 4 Microscopic Description Moderate numbers <SEE NOTE> Normal 5 Final Diagnosis NEGATIVE FOR HIG <SEE NOTE> Normal 6 CPTCode 32451 Normal PDF Report SEE IMAGE 230 Ua Routine 12/05/2020 [facility] REF TO DR ADDRESS ON ORDER FOR (315)- - Ua Glucose Negative Ua Protein 30 mg/dL Ua Nitrite Negative Ua Leuko Moderate Ua Blood Large Ua Color Not Entered Ua Ketones Negative Ua Clarity Not Entered Ua Specific [place] 1.010 1.003-1.030 Ua PH 6.5 5.0-7.5 Ua Bilirubin Negative Ua Urobilinogen 0.2 E.U./dL 0.0-1.0 Laboratory test finding 11/13/2020 [facility] [address] [place] [address] [phone] Surgical Pathology LABORATORY ALLIA <SEE NOTE> 7 Laboratory test finding 11/06/2020 Laboratory Allia tne - [facility] [address] [facility] [address] [place] [address] [phone] Urine Culture SPECIMEN DESCRIP <SEE NOTE> 8 230 Ua Routine 11/06/2020 [facility] REF TO DR ADDRESS ON ORDER FOR (315)- - Ua Glucose Negative Ua Protein 30 mg/dL Ua Nitrite Negative Ua Leuko Large Ua Blood Moderate Ua Color Not Entered Ua Ketones Negative Ua Clarity Not Entered Ua Specific [place] 1.015 1.003-1.030 Ua PH 7.0 5.0-7.5 Ua [...] HIGH-GRADE UROT HELIAL CARCINOMA. 7 LABORATORY [facility] [address] [place] [address] SURGICAL PATHOLOGY REPORT Patient Name:SARINA LINARES :1940 [...] Electronically Signed Out By Anisa Mcmillan D.O. [facility] [place] [address] Technical component performed at [facility], [facility], Histopathology, [address] [place] [address], [facility]. Reported at [facility], [address] [place] [address], [facility]. This report may include immunohistochemical or in-situ hybridization results. Testing was developed and the performance characteristics determined by [facility], as required by CLIA '88. The FDA has determined that approval for specific use is not necessary for clinical use. The quality of Hematoxylin and Eosin stains and as applicable, for all immunohistochemical and/or special stains, including positive and negative controls, were reviewed and considered appropriate. ICD codes: Z85.46 CPT4 codes: A: 82355D B: 17700H C: 93954R 8 SPECIMEN DESCRIPTION URINE, COLLECTION METHOD NOT SPECIFIED CULTURE RESULTS MIXED UROGENITAL DEIRDRE; PLEASE SUBMIT A NEW SPEC IMEN IF CLINICALLY INDICATED. REPORT STATUS FINAL 11/08/2020 Procedures Date Code Description Status 03/20/2021 96248 Office/Outpatient Established Lo w MDM 20-29 Min Completed 02/14/2021 86782 Office/Outpatient Established Lo w MDM 20-29 Min Completed 01/22/2021 83711 Office/Outpatient Established Lo w MDM 20-29 Min Completed 11/13/2020 59719 Cystectomy, And Ileal Loop Compl eted 11/13/2020 40299 Appendectomy Completed 09/25/2020 63487 Insertion, Of Tempor lasha Indwelling Bladder Catheter Simple Garcia Completed 07/07/2019 [id number] Colonoscopy Completed Medical Devices Description No Information Available Encounters Type Date Location Provider Dx Diagnosis Office Visit 03/20/2021 9:40a [facility]/ A.M.P. Urology KRISTA Fowler MD Z85.46 Personal history of malignant neoplasm o f prostate Z85.51 Personal history of malignan t neoplasm of bladder K92.2 Gastrointestinal hemorrhage, unspecified K74.60 Unspecified cirrhosis of [place] er C22.0 Liver cell carcinoma Office Visit 02/14/2021 10:00a [facility]/ A.M.P. Urol prudence Poon MD Z85.46 Personal history of malignan t neoplasm of prostate Z85.51 Personal history of malignan t neoplasm of bladder R31.0 Gross hematuria Office Visit 01/22/2021 11:00a [facility]/ A.M.P. Urol ARCADIO Jenkins R10.30 Lower abdominal pain, unspec ified Z85.46 Personal history of malignan t neoplasm of prostate Z85.51 Personal history of malignan t neoplasm of bladder Office Visit 12/05/2020 10:30a [facility]/ A.M.P. Urology Tarah Mccormack PA-C Z85.46 [...] 2:30 pm - Thierry Poon MD at [facility]/ A.M.P. Urology * 05/16/2021 2:10 pm - Thierry Poon MD at [facility]/ A.M.P. 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 Created [address] [facility] [address] [place] [address] [phone] KRISTA Fowler M.D. Per Josefa Dobson @ [place] Patient is active with [employer] Patient has benefits for inpatient surgery-hospital Covered @ 100% CPT 46537, 34069, 26524, 39623 (49458, 91732, 33703, 05753)-no prior authorization required Ref# [id number] Per Ayad Goodson @ [place] ([facility] side-auth department) CPT 37029, 69652, 39085, 41189 (06683, 55947, 89242, 04186)-No prior authorization required Ref# [id number] Per [facility] e[facility]-Patient is active Per Medicare guidelines-Never needs prior authorization *Based on medical necessity* 10/23/20 MW Created [facility] [address] [place] [address] [phone]
--- OUTSIDE RECORDS SUMMARY | 2021-04-13 14:45 | CCD | Continuity of Care Document ---
Author Sarina Rosa M.D. Organization Unknown Address [address] [place] [address] Phone [phone] Care Team Providers Care Stabilizer Operator Name Role Phone Sergey Braun M.D. AUTM [phone] Problems Active Problems Provider Date Sergey hematuria [...] SIG Qnty Indications Ordering Provider Date BCG, [place] Strain - new code eff. 11/29/18 50MG Injection Harry Oviedo MD 05/17/2019 [facility], [place] Strain - new code eff. 11/29/18 50MG Injection WSC2,Nursing Schedule/Proced ure Room 05/17/2019 BCG, [place] Strain - new code eff. 11/29/18 50MG Injection Charbel Yoo MD 9 [facility], [place] Strain - new code eff. 11/29/18 50MG Injection WSC2,Nursing Schedule/Proced ure Room 04/12/2019 [facility], [place] Strain DO Not Use After 9 Dos Injection Ryan Perez P.A. 09/2008 [facility], [place] Strain DO Not Use After 9 Dos Injection Ryan Perez P.A. BCG, [place] Strain DO Not Use After 9 Dos Injection Ryan Perez P.A. BCG, [place] Strain DO Not Use After 9 Dos Injection Sai Barrera.A. BCG, [place] Strain DO Not Use After 9 Dos Injection Ryan Perez P.A. 12/2008 BCG, [place] Strain DO Not Use After 9 Dos [...] After 9 Dos Injection Renée Barrera BCG, [place] Strain DO Not Use After 9 Dos [...] Negative Ua Clarity Not Entered Ua Specific [place] 1.010 1.003-1.030 Ua PH 7.0 5.0-7.5 Ua Bilirubin Negative Ua Urobilinogen 0.2 E.U./dL 0.0-1.0 230 Ua Routine 02/14/2021 [facility] REF TO DR ADDRESS ON ORDER FOR (315)- - Ua Glucose Negative Ua Protein 100 mg/dL Ua Nitrite Negative Ua Leuko Trace Ua Blood Large Ua Color Not Entered Ua Ketones Negative Ua Clarity Not Entered Ua Specific [place] 1.025 1.003-1.030 Ua PH 7.0 5.0-7.5 Ua Bilirubin Negative Ua Urobilinogen 1.0 E.U./dL 0.0-1.0 Urine Cytology 12/05/2020 [facility] [address] [place], [place] [address] [phone] Clinical History Z85.46 Normal Specimen Adequacy Ileal conduit/ne <SEE NOTE> Normal 2 BodySite Voided - Clean C <SEE NOTE> Normal 3 Gross Description Received in a sp <SEE NOTE> Normal 4 Microscopic Description Moderate numbers <SEE NOTE> Normal 5 Final Diagnosis NEGATIVE FOR HIG <SEE NOTE> Normal 6 CPTCode 74046 Normal PDF Report SEE IMAGE 230 Ua Routine 12/05/2020 [facility] REF TO DR ADDRESS ON ORDER FOR (315)- - Ua Glucose Negative Ua Protein 30 mg/dL Ua Nitrite Negative Ua Leuko Moderate Ua Blood Large Ua Color Not Entered Ua Ketones Negative Ua Clarity Not Entered Ua Specific [place] 1.010 1.003-1.030 Ua PH 6.5 5.0-7.5 Ua Bilirubin Negative Ua Urobilinogen 0.2 E.U./dL 0.0-1.0 Laboratory test finding 11/13/2020 [facility] [address] [place] [address] [phone] Surgical Pathology LABORATORY [facility] <SEE NOTE> 7 Laboratory test finding 11/06/2020 [facility] [address] [facility] [address] [place] [address] [phone] Urine Culture SPECIMEN DESCRIP <SEE NOTE> 8 230 Ua Routine 11/06/2020 [facility] REF TO DR ADDRESS ON ORDER FOR (315)- - Ua Glucose Negative Ua Protein 30 mg/dL Ua Nitrite Negative Ua Leuko Large Ua Blood Moderate Ua Color Not Entered Ua Ketones Negative Ua Clarity Not Entered Ua Specific [place] 1.015 1.003-1.030 Ua PH 7.0 5.0-7.5 Ua [...] HIGH-GRADE UROT HELIAL CARCINOMA. 7 LABORATORY [facility] [address] [place] [address] SURGICAL PATHOLOGY REPORT Patient Name:SARINA LINARES :1940 [...] Electronically Signed Out By Anisa Mcmillan D.O. [facility] [place] [address] Technical component performed at [facility], [facility], Histopathology, [address] [place] [address], [facility]. Reported at [facility], [address] [place] [address], [facility]. This report may include immunohistochemical or in-situ hybridization results. Testing was developed and the performance characteristics determined by [facility], as required by CLIA '88. The FDA has determined that approval for specific use is not necessary for clinical use. The quality of Hematoxylin and Eosin stains and as applicable, for all immunohistochemical and/or special stains, including positive and negative controls, were reviewed and considered appropriate. ICD codes: Z85.46 CPT4 codes: A: 18961T B: 20636B C: 39921E 8 SPECIMEN DESCRIPTION URINE, COLLECTION METHOD NOT SPECIFIED CULTURE RESULTS MIXED UROGENITAL DEIRDRE; PLEASE SUBMIT A NEW SPEC IMEN IF CLINICALLY INDICATED. REPORT STATUS FINAL 11/08/2020 Procedures Date Code Description Status 03/20/2021 65851 Office/Outpatient Established Lo w MDM 20-29 Min Completed 02/14/2021 91855 Office/Outpatient Established Lo w MDM 20-29 Min Completed 01/22/2021 09710 Office/Outpatient Established Lo w MDM 20-29 Min Completed 11/13/2020 48355 Cystectomy, And Ileal Loop Compl eted 11/13/2020 64203 Appendectomy Completed 09/25/2020 51553 Insertion, Of Tempor lasha Indwelling Bladder Catheter Simple Garcia Completed 07/07/2019 46465045 Colonoscopy Completed Medical Devices Description No Information Available Encounters Type Date Location Provider Dx Diagnosis Office Visit 03/20/2021 9:40a [facility]/ [facility] Urology KRISTA Fowler MD Z85.46 Personal history of malignant neoplasm o f prostate Z85.51 Personal history of malignan t neoplasm of bladder K92.2 Gastrointestinal hemorrhage, unspecified K74.60 Unspecified cirrhosis of [place] C22.0 Liver cell carcinoma Office Visit 02/14/2021 10:00a [facility]/ A.M.P[facility] Urol prudence Poon MD Z85.46 Personal history of malignan t neoplasm of prostate Z85.51 Personal history of malignan t neoplasm of bladder R31.0 Gross hematuria Office Visit 01/22/2021 11:00a [facility]/ A.M.P. Urol ARCADIO Jenkins R10.30 Lower abdominal pain, unspec ified Z85.46 Personal history of malignan t neoplasm of prostate Z85.51 Personal history of malignan t neoplasm of bladder Office Visit 12/05/2020 10:30a [facility]/ [facility] Urology Tarah Mccormack PA-C Z85.46 [...] of malignant ne oplasm of bladder Tarah Mcocrmack PA-C 12/05/2020 N39.46 Mixed incontinence Tarah son PA-C 12/05/2020 M54.5 Low back pain Tarah Mccormack PA-C 11/22/2020 N32.0 Bladder-neck obstruction ARCADIO Valentine 11/21/2020 N32.0 Bladder-neck obstruction ARCADIO Valentine 2020 C61 Malignant neoplasm of prostate ARCADIO Cassidy 11/19/2020 C61 Malignant neoplasm of prostate ARCADIO Cassidy 11/19/2020 N32.0 Bladder-neck obstruction ARCADIO Valenitne 11/16/2020 C61 Malignant neoplasm of prostate ARCADIO [...] 2:30 pm - Thierry Poon MD at [facility]/ A[facility]M.P[facility] Urology * 05/16/2021 2:10 pm - Thierry Poon MD at [facility]/ A[facility] 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 Created [address] [place] [address] [phone] KRISTA Fowler M.D. Per Josefa Dobson @ [facility] Patient is active with [employer] [facility] Patient has benefits for inpatient surgery-hospital Covered @ 100% CPT 68739, 89726, 88887, 22436 (85190, 56342, 98024, 13312)-no prior authorization required Ref# [id number] Per Ayad Goodson @ [facility] ([facility] [facility] side-auth department) CPT 90317, 46419, 45945, 05581 (78440, 59059, 51037, 87835)-No prior authorization required Ref# [id number] Per [facility] Medicare echeck-Patient is active Per Medicare guidelines-Never needs prior authorization *Based on medical necessity* 10/23/20 MW Created [facility] [address] [place] [address] [phone]
--- OUTSIDE RECORDS SUMMARY | 2021-04-13 14:45 | CCD | Continuity of Care Document ---
Author Sarina Rosa M.D. Organization Unknown Address [address] [place] [address] Phone [phone] Care Team Providers Care Base Filler Name Role Phone Sergey Braun M.D. AUTM [phone] Problems Active Problems Provider Date Sergey hematuria [...] as needed for severe pain 7caps PO Raimn Fowler MD 12/07/2020 - 03/19/2021 Medications Administered in Office Medication SIG Qnty Indications Ordering Provider Date BCG, [place] Strain - new code eff. 11/29/18 50MG Injection Harry Oviedo MD 05/17/2019 [facility], [place] Strain - new code eff. 11/29/18 50MG Injection WSC2,Nursing Schedule/Proced ure Room 05/17/2019 BCG, [place] Strain - new code eff. 11/29/18 50MG Injection Charbel Yoo MD 9 [facility], [place] Strain - new code eff. 11/29/18 50MG Injection WSC2,Nursing Schedule/Proced ure Room 04/12/2019 [facility], [place] Strain DO Not Use After 9 Dos Injection Ryan Perez P.A. 09/2008 [facility], [place] Strain DO Not Use After 9 Dos Injection Ryan Perez P.A. [facility], [place] Strain DO Not Use After 9 Dos Injection Ryan Perez P.A. BCG, [place] Strain DO Not Use After 9 Dos Injection Sai Barrera.A. BCG, [place] Strain DO Not Use After 9 Dos Injection Ryan Perez P.A. 12/2008 [facility], [place] Strain DO Not Use After 9 Dos [...] After 9 Dos Injection Renée Barrera BCG, [place] Strain DO Not Use After 9 Dos [...] Negative Ua Clarity Not Entered Ua Specific [place] 1.010 1.003-1.030 Ua PH 7.0 5.0-7.5 Ua Bilirubin Negative Ua Urobilinogen 0.2 E.U./dL 0.0-1.0 230 Ua Routine 02/14/2021 [facility] REF TO DR ADDRESS ON ORDER FOR (315)- - Ua Glucose Negative Ua Protein 100 mg/dL Ua Nitrite Negative Ua Leuko Trace Ua Blood Large Ua Color Not Entered Ua Ketones Negative Ua Clarity Not Entered Ua Specific [place] 1.025 1.003-1.030 Ua PH 7.0 5.0-7.5 Ua Bilirubin Negative Ua Urobilinogen 1.0 E.U./dL 0.0-1.0 Urine Cytology 12/05/2020 [facility] [address] [place], [place] [address] [phone] Clinical History Z85.46 Normal Specimen Adequacy Ileal conduit/ne <SEE NOTE> Normal 2 BodySite Voided - Clean C <SEE NOTE> Normal 3 Gross Description Received in a sp <SEE NOTE> Normal 4 Microscopic Description Moderate numbers <SEE NOTE> Normal 5 Final Diagnosis NEGATIVE FOR HIG <SEE NOTE> Normal 6 CPTCode 75000 Normal PDF Report SEE IMAGE 230 Ua Routine 12/05/2020 [facility] REF TO DR ADDRESS ON ORDER FOR (315)- - Ua Glucose Negative Ua Protein 30 mg/dL Ua Nitrite Negative Ua Leuko Moderate Ua Blood Large Ua Color Not Entered Ua Ketones Negative Ua Clarity Not Entered Ua Specific [place] 1.010 1.003-1.030 Ua PH 6.5 5.0-7.5 Ua Bilirubin Negative Ua Urobilinogen 0.2 E.U./dL 0.0-1.0 Laboratory test finding 11/13/2020 [facility] [address] [place] [address] [phone] Surgical Pathology LABORATORY [facility] <SEE NOTE> 7 Laboratory test finding 11/06/2020 [facility] [address] [facility] [address] [place] [address] [phone] Urine Culture SPECIMEN DESCRIP <SEE NOTE> 8 230 Ua Routine 11/06/2020 [facility] REF TO DR ADDRESS ON ORDER FOR (315)- - Ua Glucose Negative Ua Protein 30 mg/dL Ua Nitrite Negative Ua Leuko Large Ua Blood Moderate Ua Color Not Entered Ua Ketones Negative Ua Clarity Not Entered Ua Specific [place] 1.015 1.003-1.030 Ua PH 7.0 5.0-7.5 Ua [...] HIGH-GRADE UROT HELIAL CARCINOMA. 7 LABORATORY [facility] [address] [place] [address] SURGICAL PATHOLOGY REPORT Patient Name:SARINA LINARES :1940 [...] Electronically Signed Out By Anisa Mcmillan D.O. [facility] [place] [address] Technical component performed at [facility], [facility], Histopathology, [address] [place] [address], [facility]. Reported at [facility], [address] [place] [address], [facility]. This report may include immunohistochemical or in-situ hybridization results. Testing was developed and the performance characteristics determined by [facility], as required by CLIA '88. The FDA has determined that approval for specific use is not necessary for clinical use. The quality of Hematoxylin and Eosin stains and as applicable, for all immunohistochemical and/or special stains, including positive and negative controls, were reviewed and considered appropriate. ICD codes: Z85.46 CPT4 codes: A: 57341K B: 60596Q C: 72405G 8 SPECIMEN DESCRIPTION URINE, COLLECTION METHOD NOT SPECIFIED CULTURE RESULTS MIXED UROGENITAL DEIRDRE; PLEASE SUBMIT A NEW SPEC IMEN IF CLINICALLY INDICATED. REPORT STATUS FINAL 11/08/2020 Procedures Date Code Description Status 03/20/2021 72971 Office/Outpatient Established Lo w MDM 20-29 Min Completed 02/14/2021 97973 Office/Outpatient Established Lo w MDM 20-29 Min Completed 01/22/2021 79643 Office/Outpatient Established Lo w MDM 20-29 Min Completed 11/13/2020 95976 Cystectomy, And Ileal Loop Compl eted 11/13/2020 26070 Appendectomy Completed 09/25/2020 37933 Insertion, Of Tempor lasha Indwelling Bladder Catheter Simple Garcia Completed 07/07/2019 91843657 Colonoscopy Completed Medical Devices Description No Information Available Encounters Type Date Location Provider Dx Diagnosis Office Visit 03/20/2021 9:40a [facility]/ [facility] Urology KRISTA Fowler MD Z85.46 Personal history of malignant neoplasm o f prostate Z85.51 Personal history of malignan t neoplasm of bladder K92.2 Gastrointestinal hemorrhage, unspecified K74.60 Unspecified cirrhosis of [place] C22.0 Liver cell carcinoma Office Visit 02/14/2021 10:00a [facility] [...] neoplasm of bladder Office Visit 12/05/2020 10:30a [facility]/ [facility] Urology Tarah Mccormack PA-C Z85.46 Personal [...] loss from ileal conduit. Created [address] [facility] [address] [place] [address] [phone] KRISTA Fowler M.D. Per Josefa Dobson @ [facility] Patient is active with [employer] [facility] Patient has benefits for inpatient surgery-hospital Covered @ 100% CPT 66791, 07110, 67908, 11782 (90468, 61517, 18673, 59885)-no prior authorization required Ref# [id number] Per Ayad Goodson @ [facility] ([facility] side-auth department) CPT 85499, 74289, 01784, 90129 (25725, 94266, 36903, 74564)-No prior authorization required Ref# [id number] [facility] e[facility]-Patient is active Per Medicare guidelines-Never needs prior authorization *Based on medical necessity* 10/23/20 MW Created [facility] [address] [place] [address] [phone]
--- OUTSIDE RECORDS SUMMARY | 2021-04-13 14:45 | CCD ---
Author Author [facility] Organization [facility] Address Unknown Phone Unavailable Care Team Providers Care Motorcycle Engine Assembler Name Role Phone Sergey Braun Unavailable PROBLEMS Type Condition ICD9-CM Code COK40-CZ Code Onset Dates Condition S tatus W/U Status Risk SNOMED Code Notes Problem Radiation proctitis K62.7 Active confirmed 382220581 He had a full evaluation of his radiation proctitis in the past. He had a colonoscopy in May 2006 and again in August 2016. Problem Type 2 diabetes mellitus with other diabetic kid nick complication E11.29 Active confirmed 34422151 On metformin t herapy since 2011. Last [...] monitoring. Problem Insomnia, unspecified G47.00 Active confirmed 557163561 Started doxepin at bedtime in 09/2013, but he no longer needs that and takes melatonin and Tylenol PM apparently. Problem Essential (primary) hypertension I10 Active conf irmed 36639656 On losartan hydrochlorothiazide and on Lasix also [...] of urinary calculi Z87.442 Acti ve confirmed 161204558 He had right-sided hydroureter related t o a stone, on CT scan in 05/08. Sees Dr. Poon. Problem Thrombocytopenia, unspecified D69.6 Active confirm ed 167509983 He has chronic anemia and a history [...] malignant neoplasm of prostate Z85.46 Active confirmed 489365481 Prostate cancer, luis e gnosed on basis of elevated PSA in 2004, Laney score 5+5, treated with prostate seed implantation 08/03, external beam radiation therapy -11/03. He is regularly followed by the urologist. PSAs have been undetectable. He had a prostatectomy with his cystectomy in October 2020. Problem Personal history of malignant neoplasm of bladder Z85.51 Active confirmed 498614257 History of bladder c ancer, resected 01/05, [...] polyp of colon Z86.010 Ac tive confirmed 126218029 Per colonoscopy 08/2016. Problem Arthritis of knee M17.10 Active confirmed 37 1218803 He has good luck with lidocaine topically. This is far superior to any other therapy because of his chronic thrombocytopenia and leukopenia and anemia. He also has some neck discomfort and basilar arthritis of the hands. A change in pillows may help his neck and he continues lidocaine on his hands Problem Hypercholesterolemia E78.00 Active confirmed 89720919 His lipids are optimal despite the lack of statin therapy. Because he is diabetic, we need to consider that, but his LDL is already less than 90 and was last evaluated in April 2020. Problem Hepatocellular carcinoma C22.0 Active confirmed 152909333 Diagnosed by biopsy 01/2021--referred to surgical oncology--no note available but some sort of radiation procedure is anticipated after a CT on 03/11/2021. Problem Leg cramps R25.2 Active confirmed 732893655 I continue to recommend magnesium and/or tonic water supplementation. These have been of benefit. 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 Problem Nonalcoholic steatohepatitis (WELLS) K75.81 Acti ve confirmed 129983350 He has a history of mild liver [...] 2012. Problem Chronic anemia D64.9 Active confirmed 18866 6992 He has a chronic low-grade anemia with [...] 03/05/2021. Problem Fatty liver K76.0 Active confirmed 34625883 7 He has a fatty liver but this has progressed to cirrhosis and he also has liver cancer. Problem Other ascites R18.8 Active confirmed 938706 000 He requires another paracentesis. I will increase his spironolatone to 25 mg twice a day and increase his Lasix to 40 mg daily as of 03/05/2021. Problem Liver mass, right lobe R16.0 Active confirmed 009656208 ALLERGIES No Known Allergies ENCOUNTERS from 1940 to 2021-03-21 Encounter Location Date Provider Diagnosis [place] [address] [facility] [phone] [place] [address] 06 Mar, 2021 [facility] Vaccine Route Administration Date Status [...] Education Language: Question Answer Notes Languages spoken: Slovenian Restoration: Question Answer Notes Restoration No shinto beliefs that would impact health care. Domestic [...] Information RESULTS No Results REASON FOR VISIT PA lidocaine 5% oint MEDICAL (GENERAL) HISTORY Type Description Date Medical [...] Fowler 11/13/2020 Surgical History Paracentesis Hospitalization History [facility]- prostatectomy surgery 11/13- 11/22/2020 Goals Section No [...] Provider Name:Sergey Braun, 2021-04-02 01 :00:00 PM, [address] [place] [address], , [place], [address], Provider Name:Sergey Braun 2021-05-06 04 :00:00 PM, [address] [place] [address], , [place], [address], Provider Name:Sergey Braun, 2021-07-02 03 :30:00 PM, [address] [place] [address], , [place], [address], Insurance Providers Payer Name Payer Address Payer Phone Insured Name Patient Relati onship to Insured Coverage Start Date Coverage End Date MEDICARE Part A and B [address] [facility] [address] SARINA LINARES [facility] [address] [facility] [id number] SARINA LINARES
--- OUTSIDE RECORDS SUMMARY | 2021-04-13 14:46 | CCD ---
Author Author [facility] Organization [facility] Address Unknown Phone Unavailable Care Team Providers Care Onsite Case Manager Name Role Phone Stephanie Oh Unavailable PROBLEMS Type Condition ICD9-CM Code OIO70-XG Code Onset Dates Condition S tatus W/U Status Risk SNOMED Code Notes Problem Radiation proctitis K62.7 Active confirmed [id number] He had a full evaluation of his radiation proctitis in the past. He had a colonoscopy in May 2006 and again in August 2016. Problem Type 2 diabetes mellitus with other diabetic kid nick complication E11.29 Active confirmed 81191351 On metformin t herapy since 2011. Last [...] monitoring. Problem Insomnia, unspecified G47.00 Active confirmed 828085809 Started doxepin at bedtime in 09/2013, but he no longer needs that and takes melatonin and Tylenol PM apparently. Problem Essential (primary) hypertension I10 Active conf irmed 35302896 On losartan hydrochlorothiazide and on Lasix also [...] of urinary calculi Z87.442 Acti ve confirmed 640105998 He had right-sided hydroureter related t o a stone, on CT scan in 05/08. Sees Dr. Poon. Problem Thrombocytopenia, unspecified D69.6 Active confirm ed 480309216 He has chronic anemia and a history [...] malignant neoplasm of prostate Z85.46 Active confirmed 306897805 Prostate cancer, luis e gnosed on basis of elevated PSA in 2004, Laney score 5+5, treated with prostate seed implantation 08/03, external beam radiation therapy -11/03. He is regularly followed by the urologist. PSAs have been undetectable. He had a prostatectomy with his cystectomy in October 2020. Problem Personal history of malignant neoplasm of bladder Z85.51 Active confirmed 341849236 History of bladder c ancer, resected 01/05, [...] polyp of colon Z86.010 Ac tive confirmed 389716313 Per colonoscopy 08/2016. Problem Arthritis of knee M17.10 Active confirmed 37 3323218 He has good luck with lidocaine topically. This is far superior to any other therapy because of his chronic thrombocytopenia and leukopenia and anemia. He also has some neck discomfort and basilar arthritis of the hands. A change in pillows may help his neck and he continues lidocaine on his hands Problem Hypercholesterolemia E78.00 Active confirmed 03508145 His lipids are optimal despite the lack of statin therapy. Because he is diabetic, we need to consider that, but his LDL is already less than 90 and was last evaluated in April 2020. Problem Hepatocellular carcinoma C22.0 Active confirmed 900299549 Diagnosed by biopsy 01/2021--referred to surgical oncology--no note available but some sort of radiation procedure is anticipated after a CT on 03/11/2021. Problem Leg cramps R25.2 Active confirmed 201306403 I continue to recommend magnesium and/or tonic water supplementation. These have been of benefit. 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 Problem Nonalcoholic steatohepatitis (WELLS) K75.81 Acti ve confirmed 458069134 He has a history of mild liver [...] 2012. Problem Chronic anemia D64.9 Active confirmed 24814 3572 He has a chronic low-grade anemia with [...] 03/05/2021. Problem Fatty liver K76.0 Active confirmed 45554204 7 He has a fatty liver but this has progressed to cirrhosis and he also has liver cancer. Problem Other ascites R18.8 Active confirmed 730701 000 He requires another paracentesis. I will increase his spironolatone to 25 mg twice a day and increase his Lasix to 40 mg daily as of 03/05/2021. Problem Liver mass, right lobe R16.0 Active confirmed 838456486 ALLERGIES No Known Allergies ENCOUNTERS from 1940 to 2021-03-06 Encounter Location Date Provider Diagnosis [place] [id number] [facility] [phone] [place] [address] Mar, Stephanie Servage Other ascites R18.8 IMMUNIZATIONS Vaccine Route Administration Date Status Influenza Pharmacy Given Unknown Mar 08, 2020 Adminis tered Influenza Pharmacy Given Unknown Feb 26, 2021 Adminis tered COVID-19 dose #1 given elsewhere Unspecified Unknown Jul 08, 2020 Administered COVID-19 dose #2 given elsewhere Unspecified Unknown Jul 29, 2020 Administered Zoster 0.65mL Zostavax Unknown October 06, 2012 Administe red Influenza (High Dose 65 & up) IM Intramuscular Mar 21, 2015 A dministered Influenza (High Dose 65 & up) IM Intramuscular Apr 15, 2016 A dministered TD PED 0.5mL Tetanus Unknown October 06, 2002 Administere d Zoster 50mcg/0.5mL Shingrix Unknown Mar 16, 2018 Admi nistered Zoster 50mcg/0.5mL Shingrix Unknown December 09, 2017 Admi nistered Influenza 6-35 months Unknown Mar 09, 2019 Administer ed Influenza (High Dose 65 & up) Unknown Mar 16, 2018 Ad ministered Influenza (High Dose 65 & up) Unknown Apr 01, 2017 Ad ministered Pneumococcal Adult 0.5mL Pneumovax 23 Unknown October [...] Education Language: Question Answer Notes Languages spoken: Eritrean Confucianist: Question Answer Notes Confucianist No mandaen beliefs that would impact health care. Domestic [...] Notes Start Da te End Date Status Melatonin 10 MG 1 tab Orally once daily Active Lasix 40 MG 1 tablet Orally Once [...] Once a day for 30 days Active Lidocaine 5 % 1 application to [...] Information RESULTS No Results REASON FOR VISIT Abdominal binder MEDICAL (GENERAL) HISTORY Type Description Date Medical [...] Notes Treatment Notes Treatm ent Clinical Notes Mar, Other ascites (ICD-10 - R18.8) PLAN OF TREATMENT Medication Medication Name Sig [...] Provider Name:Sergey Braun, 2021-04-02 01 :00:00 PM, [address] [place] [address], , [place], [address], Provider Name:Sergey Braun, 2021-05-06 04 :00:00 PM, [address] [place] [address] , [place], [address], Provider Name:Sergey Braun, 2021-07-02 03 :30:00 PM, [address] [place] [address], , [place], [address], Insurance Providers Payer Name Payer Address Payer Phone Insured Name Patient Relati onship to Insured Coverage Start Date Coverage End Date MEDICARE Part A and B [address] [facility] [phone] SARINA LINARES Formerly [facility] [address] [facility] [id number] SARINA LINARES
--- OUTSIDE RECORDS SUMMARY | 2021-04-13 14:46 | CCD | Continuity of Care Document ---
Author Organization Unknown Address Unknown Phone Unavailable Care Team Providers Care Timing Inspector Name Role Phone Sergey Braun M.D. [facility] [phone] Problems Active Problems Provider Date Sergey hematuria [...] to blood loss Onset: Thrombocytopenic disorder Onset: 000 Benign essential hypertension Onset: Diabetes mellitus Onset: Alteration in tissue perfusion Onset: At risk for falls Onset: Ascites Onset: Anemia Onset: Social History Type Date Description Comments Sex Unknown Tobacco Use Reviewed: 12/05/20 Never Smoked Cigarettes Smoking Status Reviewed: 02/14/21 Never Smoked Cigarettes ETOH Use Social Alcohol Use Allergies and adverse reactions Active Allergies Criticality Reaction | Severity Comments Date Casodex Unable to assess criticality PALPITATIONS 09/01/2005 Medications Active Medications SIG Qnty Indications Ordering Provide r Date Oxycodone HCL 5mg Capsules take one capsule by mouth before bed as needed for severe pain 7caps PO Ramin Fowler MD 12/07/2020 Hydrochlorothiazide 12.5mg Tablets Take One Tablet By Mouth Every Day Unknown Losartan Potassium 100mg Tablets cystoprostatectomy with ileal [...] Day as Needed For Pain Unknow n Ferosul 325(65Fe) mg Tablets Take One Tablet By Mouth Every Thursday/Thursday/Thursday Un known Medications Administered in Office Medication SIG Qnty Indications Ordering Provider Date [facility], [place] Strain - new code eff. 11/29/18 50MG Injection Harry Oviedo MD 05/17/2019 [facility], [place] Strain - new code eff. 11/29/18 50MG Injection WSC2,Nursing Schedule/Proced ure Room 05/17/2019 BCG, [place] Strain - new code eff. 11/29/18 50MG Injection Charbel Yoo MD 9 [facility], [place] Strain - new code eff. 11/29/18 50MG Injection WSC2,Nursing Schedule/Proced ure Room 04/12/2019 [facility], [place] Strain DO Not Use After 9 Dos Injection Ryan Perez P.A. 09/2008 [facility], [place] Strain DO Not Use After 9 Dos Injection Sai Barrera.A. [facility], [place] Strain DO Not Use After 9 Dos Injection Ryan Perez P.A. [facility], [place] Strain DO Not Use After 9 Dos Injection Ryan Perez P.A. [facility], [place] Strain DO Not Use After 9 Dos Injection Ryan Perez P.A. 12/2008 [facility], [place] Strain DO Not Use After 9 Dos Injection Charity Mcneill R.N., M. S., N.P. 12/15/2007 [facility], [place] Strain DO Not Use After 9 Dos Injection Charity Mcneill R.N., M. S., N.P. 12/08/2007 [facility], [place] Strain DO Not Use After 9 Dos Injection Charity Mcneill R.N., M. S., N.P. 12/02/2007 [facility], [place] Strain DO Not Use After 9 Dos Injection Sai Barrera.A. [facility], [place] Strain DO Not Use After 9 Dos Injection Rose Marie BarreraA. [facility], [place] Strain DO Not Use After 9 Dos Injection Renée Barrera Immunizations Description No Information Available Vital Signs Date Vital Result Comment 02/18/2021 6:03am Respiratory Rate 18 /min 02/18/2021 7:41am O2 % BldC Oximetry 95 % Results Test Acquired Date Facility Test Result H/L Range Note 230 Ua Routine 02/14/2021 [facility] REF TO DR ADDRESS ON ORDER FOR (315)- - Ua Glucose Negative Ua Protein 100 mg/dL Ua Nitrite Negative Ua Leuko Trace Ua Blood Large Ua Color Not Entered Ua Ketones Negative Ua Clarity Not Entered Ua Specific Eld[place] 1.025 1.003-1.030 Ua PH 7.0 5.0-7.5 Ua Bilirubin Negative Ua Urobilinogen 1.0 E.U./dL 0.0-1.0 Urine Cytology 12/05/2020 [facility] [address] [place] [address] [phone] Clinical History Z85.46 Normal Specimen Adequacy Ileal conduit/ne <SEE NOTE> Normal 1 BodySite Voided - Clean C <SEE NOTE> Normal 2 Gross Description Received in a sp <SEE NOTE> Normal 3 Microscopic Description Moderate numbers <SEE NOTE> Normal 4 Final Diagnosis NEGATIVE FOR HIG <SEE NOTE> Normal 5 CPTCode 03216 Normal PDF Report SEE IMAGE 230 Ua Routine 12/05/2020 [facility] REF TO DR ADDRESS ON ORDER FOR (315)- - Ua Glucose Negative Ua Protein 30 mg/dL Ua Nitrite Negative Ua Leuko Moderate Ua Blood Large Ua Color Not Entered Ua Ketones Negative Ua Clarity Not Entered Ua Specific Eldena 1.010 1.003-1.030 Ua PH 6.5 5.0-7.5 Ua Bilirubin Negative Ua Urobilinogen 0.2 E.U./dL 0.0-1.0 Laboratory test finding 11/13/2020 [facility] [address] [place], [place] [id number] [phone] Surgical Pathology [facility] <SEE NOTE> 6 Laboratory test finding 11/06/2020 [facility] [place] [address] [facility] [address] [place], [place] [address] [phone] Urine Culture SPECIMEN DESCRIP <SEE NOTE> 7 230 Ua Routine 11/06/2020 [facility] REF TO ADDRESS ON ORDER FOR (595)- - Ua Glucose Negative Ua Protein 30 mg/dL Ua Nitrite Negative Ua Leuko Large Ua Blood Moderate Ua Color Not Entered Ua Ketones Negative Ua Clarity Not Entered Ua Specific Eldena 1.015 1.003-1.030 Ua PH 7.0 5.0-7.5 Ua Bilirubin Negative Ua Urobilinogen 0.2 E.U./dL 0.0-1.0 1 Ileal conduit/neobladder. 2 Voided - Clean Catch 3 Received in a specimen conta iner, labeled with the patients name and , is Cloudy Yellow fluid consistent with urine, measuring approximately 15 ml. 4 Moderate numbers of neutroph ils present. 5 NEGATIVE FOR HIGH-GRADE UROT HELIAL CARCINOMA. 6 [facility] [place] [address] SURGICAL PATHOLOGY REPORT Patient Name:SARINA LINARES :1940 [...] Electronically Signed Out By Anisa Mcmillan [facility] [place] [address] [address] Technical component performed at [facility], Histopathology, [address] [place] [address], [address]. Reported at [facility], [address] [place] [address], [address]. This report may include immunohistochemical or in-situ hybridization results. Testing was developed and the performance characteristics [facility], as required by CLIA '88. The FDA has determined that approval for specific use is not necessary for clinical use. The quality of Hematoxylin and Eosin stains and as applicable, for all immunohistochemical and/or special stains, including positive and negative controls, were reviewed and considered appropriate. ICD codes: Z85.46 CPT4 codes: A: 80592G B: 00078Q C: 04521N 7 SPECIMEN DESCRIPTION URINE, COLLECTION METHOD NOT SPECIFIED CULTURE RESULTS MIXED UROGENITAL DEIRDRE; PLEASE SUBMIT A NEW SPEC IMEN IF CLINICALLY INDICATED. REPORT STATUS FINAL 11/08/2020 Procedures Date Code Description Status 02/14/2021 90627 Office/Outpatient Established Lo w MDM 20-29 Min Completed 01/22/2021 64192 Office/Outpatient Established Lo w MDM 20-29 Min Completed 11/13/2020 49773 Cystectomy, And Ileal Loop Compl eted 11/13/2020 85458 Appendectomy Completed 09/25/2020 93962 Insertion, Of Tempor lasha Indwelling Bladder Catheter Simple Garcia Completed 09/10/2020 23179 Office/Outpatient Established Hi gh MDM 40-54 Min Completed 07/07/2019 43522361 Colonoscopy Completed Medical Devices Description No Information Available Encounters Type Date Location Provider Dx Diagnosis Office Visit 02/14/2021 10:00a [facility]/ [facility] Urol prudence Poon MD Z85.46 Personal history of malignan t neoplasm of prostate Z85.51 Personal history of malignan t neoplasm of bladder R31.0 Gross hematuria Office Visit 01/22/2021 11:00a [facility]/ [facility] Urol ogy ARCADIO Juarez R10.30 Lower abdominal pain, unspec ified Z85.46 Personal history of malignan t neoplasm of prostate Z85.51 Personal history of malignan t neoplasm of bladder Office Visit 12/05/2020 10:30a [facility]/ A[facility] Urology Tarah Mccormack PA-C Z85.46 Personal history of malignan t neoplasm of prostate Z85.51 Personal history of malignan t neoplasm of bladder N39.46 Mixed incontinence M54.5 Low back pain Office Visit 09/10/2020 4:00p [place]/ A[facility] Urology KRISTA Fowler MD Z85.46 Personal history of malignant neoplasm of prostate Z85.51 Personal history of malignan t neoplasm of bladder N39.46 Mixed incontinence N32.0 Bladder-neck obstruction Assessments Date Code Description Provider 02/14/2021 Z85.46 Personal history of malignant ne [...] obstruction ARCADIO Valentine 11/21/2020 N32.0 Bladder-neck obstruction Katherinfe r Cynthia, PA 2020 C61 Malignant neoplasm of prostate J ennifer Cynthia, PA 11/19/2020 C61 Malignant neoplasm of prostate J ennifer Cynthia, PA 11/19/2020 N32.0 Bladder-neck obstruction Jennife r Cynthia, PA 11/16/2020 C61 Malignant neoplasm of prostate J sidneyniburak Cynthia, PA 11/16/2020 N32.0 Bladder-neck obstruction Jennife r Cynthia, PA 11/15/2020 N32.0 Bladder-neck obstruction Jennife r Cynthia, PA 11/15/2020 C61 Malignant neoplasm of prostate J sidneynifer Cynthia, PA 11/14/2020 N32.0 Bladder-neck obstruction Jennife r Cynthia, PA 11/14/2020 C61 Malignant neoplasm of prostate J sidneyniburak Cynthia, PA 11/13/2020 N32.0 Bladder-neck obstruction KRISTA [...] retention of urine WSC2,Nu rsing Schedule/Procedure Room 09/10/2020 Z85.46 Personal history of malignant ne oplasm of prostate KRISTA Fowler MD 09/10/2020 Z85.51 Personal history of malignant ne oplasm of bladder KRISTA Fowler MD 09/10/2020 N39.46 Mixed incontinence KRISTA Fowler MD 09/10/2020 N32.0 Bladder-neck obstruction KRISTA Suresh am, MD Plan of Treatment Future Appointment(s):* 03/20/2021 9:40 am - KRISTA Fowler MD at [facility]/ A[facility] Urology * 05/16/2021 2:10 pm - Thierry Poon MD at [facility]/ A[facility] Urology 02/14/2021 - Thierry Poon MD* Z85.46 Personal history of malignant neoplasm of prostate * Z85.51 Personal history of malignant neoplasm of bladder * R31.0 Gross hematuria * All * Follow up:* 3 months Functional Status Description No Information Available Mental Status Description No Information Available Referrals Refer to Reason for Referral Status Appt Date KRISTA Fowler M.D. Per Josefa Dobson @ [facility] Patient is active with [facility] Patient has benefits for inpatient surgery-hospital Covered @ 100% CPT 19175, 80269, 98053, 08018 (41401, 69554, 41528, 03505)-no prior authorization required Ref# [id number] Per Ayad Goodson @ [facility] ([facility] side-auth department) CPT 60401, 61184, 98293, 60806 (18810, 08282, 18844, 82572)-No prior authorization required Ref# [id number] Per [employer] Medicare echeck-Patient is active Per Medicare guidelines-Never needs prior authorization *Based on medical necessity* 10/23/[address] [facility] [address] [place] [address] [phone]
--- OUTSIDE RECORDS SUMMARY | 2021-04-13 14:46 | CCD | Continuity of Care Document ---
Author Author Braulio STONE MD Organization Unknown Address [address] [place] [address] Phone [phone] Care Team Providers Care Slurry Control Tender Name Role Phone KRISTA Fowler M.D. [facility] [phone] Sergey Braun MD [facility] [phone] Problems Description No Information Available Social History Type Date Description Comments Sex Unknown Allergies, Adverse Reactions, Alerts Description No Information Available Medications Description No Information Available Immunizations CPT Code Status Date Vaccine Lot # [id number] Given 07/29/2020 Pfizer Covid-19 Sars-Cov-2, mRNA, LNP-S, PF, 30 mcg/ 0.3 mL 79150 Given 07/08/2020 Pfizer Covid-19 Sars-Cov-2, mRNA, LNP-S, PF, 30 mcg/ 0.3 mL Vital Signs Description No Information Available Results Description No Information Available Procedures Date Code Description Status 02/15/2021 00404 Electrocardiogram Interpretation & Report Only Completed 11/18/2020 22685 Electrocardiogram Interpretation & Report Only Completed Medical Devices Description No Information Available Encounters Description No Information Available Assessments Date Code Description Provider 02/15/2021 D62 Acute posthemorrhagic anemia Sushant Stone MD 02/15/2021 N99.520 Hemorrhage of incontinent assistant passenger locomotive 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 al stoma of urinary tract Red Stone MD 02/15/2021 C22.8 Malignant neoplasm of liver, chaparro amber, unspecified to type Red Stone MD 02/15/2021 I10 Essential (primary) hypertension Red Stone MD 02/15/2021 E11.9 Type 2 diabetes mellitus without complications Red Stone MD 02/15/2021 R31.9 Hematuria, unspecified Red rojo MD 11/18/2020 C61 Malignant neoplasm of prostate J oscony Macias MD 11/18/2020 N17.0 Acute kidney failure with tubula r necrosis Gareth Macias MD 11/18/2020 N17.9 Acute kidney failure, unspecifie d Gareth Macias MD 11/18/2020 N13.30 Unspecified hydronephrosis Angel elías Macias MD 11/18/2020 R78.81 Bacteremia Gareth cancino MD 11/18/2020 I95.9 Hypotension, unspecified Gareth Macias MD 11/18/2020 B96.5 Pseudomonas (mallei) causing dis eases classd elswhr Gareth Macias MD Plan of Treatment No Information Available Functional Status Description No Information Available Mental Status Description No Information Available Referrals Description No Information Available
--- OUTSIDE RECORDS SUMMARY | 2021-04-13 14:46 | CCD | Continuity of Care Document ---
Author Author Braulio CARLIN MD Organization Unknown Address [address] [place] [address], [address] [place] [address] Phone [phone] Care Team Providers Care Mount Loader Name Role Phone KRISTA Fowler M.D. [facility] [phone] Sergey Braun MD [facility] [phone] Problems Description No Information Available Social History Type Date Description Comments Sex Unknown Allergies and adverse reactions Description No Information Available Medications Description No Information Available Immunizations CPT Code Status Date Vaccine Lot # [id number] Given 07/29/2020 Pfizer Covid-19 Sars-Cov-2, mRNA, LNP-S, PF, 30 mcg/ 0.3 mL 47990 Given 07/08/2020 Pfizer Covid-19 Sars-Cov-2, mRNA, LNP-S, PF, 30 mcg/ 0.3 mL Vital Signs Description No Information Available Results Description No Information Available Procedures Date Code Description Status 02/18/2021 60917 Hospital Subsequent Care Level 1 Completed 02/17/2021 69679 Hospital Subsequent Care Level 2 Completed 02/15/2021 47650 Electrocardiogram Interpretation & Report Only Completed 11/18/2020 03204 Electrocardiogram Interpretation & Report Only Completed Medical Devices Description No Information Available Encounters Type Date Location Provider Dx Diagnosis Office Visit 02/17/2021 1:59a [facility] Erick pena MD K94.11 Enterostomy hemorrhage Assessments Date Code Description Provider 02/18/2021 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.11 Enterostomy hemorrhage Erick dubose MD 02/17/2021 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.11 Enterostomy hemorrhage Erick dubose MD 02/15/2021 D62 Acute posthemorrhagic anemia Sushant Rucker MD 02/15/2021 N99.520 Hemorrhage of incontinent immigration services officer al stoma of urinary tract Red Rucker MD 02/15/2021 C22.8 Malignant neoplasm of liver, chaparro clark, unspecified to type Red Rucker MD 02/15/2021 I10 Essential (primary) hypertension Red Rucker MD 02/15/2021 E11.9 Type 2 diabetes mellitus without complications Red Rucker MD 02/15/2021 R31.9 Hematuria, unspecified Red rojo MD 11/18/2020 C61 Malignant neoplasm of prostate J osepelías Macias MD 11/18/2020 N17.0 Acute kidney failure [...]
--- OUTSIDE RECORDS SUMMARY | 2021-04-13 14:46 | CCD ---
Author Author Located Within [facility] Organization Located Within [facility] Address Unknown Phone Unavailable Care Team Providers Care Operations Supervisor Chemical Cleaning Name Role Phone Sergey Braun Unavailable PROBLEMS Type Condition ICD9-CM Code [id number] Code Onset Dates Condition S tatus W/U Status Risk SNOMED Code Notes Problem Radiation proctitis K62.7 Active confirmed [id number] He had a full evaluation of his radiation proctitis in the past. He had a colonoscopy in May 2006 and again in August 2016. Problem Type 2 diabetes mellitus with other diabetic kid nick complication E11.29 Active confirmed 50222776 On metformin t herapy since 2011. Last [...] monitoring. Problem Insomnia, unspecified G47.00 Active confirmed 876325453 Started doxepin at bedtime in 09/2013, but he no longer needs that and takes melatonin and Tylenol PM apparently. Problem Essential (primary) hypertension I10 Active conf irmed 80604929 On losartan hydrochlorothiazide and on Lasix also [...] of urinary calculi Z87.442 Acti ve confirmed 904910748 He had right-sided hydroureter related t o a stone, on CT scan in 05/08. Sees Dr. Poon. Problem Thrombocytopenia, unspecified D69.6 Active confirm ed 740008698 He has chronic anemia and a history [...] malignant neoplasm of prostate Z85.46 Active confirmed 291972469 Prostate cancer, luis e gnosed on basis of elevated PSA in 2004, Laney score 5+5, treated with prostate seed implantation 08/03, external beam radiation therapy -11/03. He is regularly followed by the urologist. PSAs have been undetectable. He had a prostatectomy with his cystectomy in October 2020. Problem Personal history of malignant neoplasm of bladder Z85.51 Active confirmed 665128367 History of bladder c ancer, resected 01/05, [...] polyp of colon Z86.010 Ac tive confirmed 953834788 Per colonoscopy 08/2016. 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 This is far superior to any other therapy because of his chronic thrombocytopenia and leukopenia and anemia. He also has some neck discomfort and basilar arthritis of the hands. A change in pillows may help his neck and he continues lidocaine on his hands Problem Hypercholesterolemia E78.00 Active confirmed 63799787 His lipids are optimal despite the lack of statin therapy. Because he is diabetic, we need to consider that, but his LDL is already less than 90 and was last evaluated in April 2020. Problem Hepatocellular carcinoma C22.0 Active confirmed 537859427 Diagnosed by biopsy 01/2021--referred to surgical oncology--no note available but some sort of radiation procedure is anticipated after a CT on 03/11/2021. Problem Leg cramps R25.2 Active confirmed 202512909 I continue to recommend magnesium and/or tonic water supplementation. These have been of benefit. 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 Problem Nonalcoholic steatohepatitis (WELLS) K75.81 Acti ve confirmed 586415553 He has a history of mild liver [...] 2012. Problem Chronic anemia D64.9 Active confirmed 06953 3282 He has a chronic low-grade anemia with [...] 03/05/2021. Problem Fatty liver K76.0 Active confirmed 05482966 7 He has a fatty liver but this has progressed to cirrhosis and he also has liver cancer. Problem Other ascites R18.8 Active confirmed 840652 000 He requires another paracentesis. I will increase his spironolatone to 25 mg twice a day and increase his Lasix to 40 mg daily as of 03/05/2021. Problem Liver mass, right lobe R16.0 Active confirmed 446118006 ALLERGIES No Known Allergies ENCOUNTERS from 1940 to 2021-03-06 Encounter Location Date Provider Diagnosis [place] [id number] [facility] [phone] [place] [address] 05 Mar, 2021 Sergey Kade Hepatocellular carcinoma C22 .0 ; Other ascites R18.8 ; Essential (primary) hypertension I10 ; Chronic anemia D64.9 ; Fatty liver K76.0 and Secondary biliary cirrhosis K74.4 IMMUNIZATIONS Vaccine Route Administration Date Status Influenza [...] Education Language: Question Answer Notes Languages spoken: Indonesian Lutheran: Question Answer Notes Lutheran No uatsdin beliefs that would impact health care. Domestic [...] FOR REFERRAL No Information VITAL SIGNS Weight 199.4 lbs Mar, Height 71 in Mar, BMI 27.81 kg/m2 Mar, Heart Rate 105 /min Mar, Respiratory Rate 18 /min Mar, Temperature 97.8 degrees Fahrenheit Mar, Oximetry 99% Mar, Blood pressure systolic 124 mm Hg Mar, Blood pressure diastolic 58 mm Hg Mar, MEDICATIONS Medication SIG (Take, Route, Frequency, Duration) [...] Information RESULTS No Results REASON FOR VISIT 2 month follow up with CBC to review MEDICAL (GENERAL) HISTORY Type Description Date Medical [...] Fowler 11/13/2020 Surgical History Paracentesis Hospitalization History Irene- prostatectomy surgery 11/13- 11/22/2020 Goals Section No Information Health Concerns No Information MEDICAL EQUIPMENT No Information MENTAL STATUS No Information FUNCTIONAL STATUS No Information ASSESSMENTS Encounter Date Diagnosis Assessment Notes Treatment Notes Treatm ent Clinical Notes Mar, Hepatocellular carcinoma (ICD-10 - C22.0 ) Diagnosed by biopsy 01/2021--referred to surgical oncology--no note available but some sort of radiation procedure is anticipated after a CT on 03/11/2021. Mar, Other ascites (ICD-10 - R18.8) He requir es another paracentesis. I will increase his spironolatone to 25 mg twice a day and increase his Lasix to 40 mg daily as of 03/05/2021. Mar, Essential (primary) hypertension (ICD-10 - I10) On losartan hydrochlorothiazide and on Lasix also as of late November 2020 because of lower extremity edema. (I switched him from lisinopril HCTZ in September 2012 because of a cough). Blood pressure control is fairly reasonable. I stoppedhydrochlorothiazide and started him on spironolactone as of early December 2020, with further escalation of his spironolactone and Lasix in early 03/2021 due to ascites. Mar, Chronic anemia (ICD-10 - D64.9) He has [...] A repeat CBC is drawn today, 03/05/2021. Mar, Fatty liver (ICD-10 - K76.0) He has a fa tty liver but this has progressed to cirrhosis and he also has liver cancer. Mar, Secondary biliary cirrhosis (ICD-10 - K7 4.4) See biopsy report 12/2020. PLAN OF TREATMENT Medication Medication Name Sig [...] Twice a day for 90 days Dec, Treatment Notes Test Name Order Date Comprehensive Metabolic Profile (CMP) 2021-03-05 CBC with Differential 2021-03-05 ALPHA FETOPROTEIN TUMOR QUANT 2021-03-05 PT-INR 2021-03-05 [facility] 2021-03-05 Next Appt Details 04/02 as scheduled Reason: Provider Name:Sergey Braun, 2021-04-02 01 :00:00 PM, [address] [place], [place] [address], [place], [address], Provider Name:Sergey Braun, 2021-05-06 04 :00:00 PM, [address] [place], [place] [id number], [place], [address], Provider Name:Sergey Braun 2021-07-02 03 :30:00 PM, [address] [place], [place] [address], [place], [address], Insurance Providers Payer Name Payer Address Payer Phone Insured Name Patient Relati onship to Insured Coverage Start Date Coverage End Date MEDICARE Part A and B [address] [facility] [address] SARINA LINARES [facility] [address] [facility] [id number] SARINA LINARES
--- OUTSIDE RECORDS SUMMARY | 2021-04-13 14:46 | CCD | Continuity of Care Document ---
Author Organization Unknown Address Unknown Phone Unavailable Care Team Providers Care Management Assistant Name Role Phone Sergey Braun M.D. [facility] [phone] Problems Active Problems Provider Date Sergey hematuria [...] Injection WSC2,Nursing Schedule/Proced ure Room 05/17/2019 BCG, [place] Strain - new code eff. 11/29/18 50MG [...] 9 Dos Injection Ryan Perez P.A. BCG, [place] Strain DO Not Use After 9 Dos Injection Ryan Perez P.A. BCG, [place] Strain DO Not Use After 9 Dos Injection Ryan Perez P.A. 12/2008 BCG, [place] Strain DO Not Use After 9 Dos Injection Charity Mcneill R.N., M. S., N.P. 12/15/2007 BCG, [place] Strain DO Not Use After 9 Dos Injection Charity Mcneill R.N., M. S., N.P. 12/08/2007 BCG, [place] Strain DO Not Use After 9 Dos Injection Charity Mcneill R.N., M. S., N.P. 12/02/2007 BCG, [place] Strain DO Not Use After 9 Dos Injection Sai Barrera.A. BCG, [place] Strain DO Not Use After 9 Dos [...] Negative Ua Clarity Not Entered Ua Specific [place] 1.025 1.003-1.030 Ua PH 7.0 5.0-7.5 Ua Bilirubin Negative Ua Urobilinogen 1.0 E.U./dL 0.0-1.0 Urine Cytology 12/05/2020 [facility] [address] [place] [address] [phone] Clinical History Z85.46 Normal Specimen Adequacy Ileal conduit/ne <SEE NOTE> Normal 1 BodySite Voided - Clean C <SEE NOTE> Normal 2 Gross Description Received in a sp <SEE NOTE> Normal 3 Microscopic Description Moderate numbers <SEE NOTE> Normal 4 Final Diagnosis NEGATIVE FOR HIG <SEE NOTE> Normal 5 CPTCode 43414 Normal PDF Report SEE IMAGE 230 Ua Routine 12/05/2020 [facility] REF TO DR ADDRESS ON ORDER FOR (315)- - Ua Glucose Negative Ua Protein 30 mg/dL Ua Nitrite Negative Ua Leuko Moderate Ua Blood Large Ua Color Not Entered Ua Ketones Negative Ua Clarity Not Entered Ua Specific [place] 1.010 1.003-1.030 Ua PH 6.5 5.0-7.5 Ua Bilirubin Negative Ua Urobilinogen 0.2 E.U./dL 0.0-1.0 Laboratory test finding 11/13/2020 [facility] [address] [place], [place] [address] [phone] Surgical Pathology [facility] <SEE NOTE> 6 Laboratory test finding 11/06/2020 [facility] n[facility] - [place] [address] [facility] [address] [place], [place] [address] [phone] Urine Culture SPECIMEN DESCRIP <SEE NOTE> 7 230 Ua Routine 11/06/2020 [facility] REF TO ADDRESS ON ORDER FOR (295)- - Ua Glucose Negative Ua Protein 30 mg/dL Ua Nitrite Negative Ua Leuko Large Ua Blood Moderate Ua Color Not Entered Ua Ketones Negative Ua Clarity Not Entered Ua Specific [place] 1.015 1.003-1.030 Ua PH 7.0 5.0-7.5 Ua [...] HIGH-GRADE UROT HELIAL CARCINOMA. 6 [place] [address] SURGICAL PATHOLOGY REPORT Patient Name:SARINA LINARES :1940 [...] Electronically Signed Out By Anisa Mcmillan D.O. [facility]. [address] [place] [address] Technical component performed at [facility], Histopathology, [address] [place] [address], [address]. Reported at [facility], [address] [place] [address], [address]. This report may include immunohistochemical or in-situ hybridization results. Testing was developed and the performance characteristics determined by [facility], as required by CLIA '88. The FDA has determined that approval for specific use is not necessary for clinical use. The quality of Hematoxylin and Eosin stains and as applicable, for all immunohistochemical and/or special stains, including positive and negative controls, were reviewed and considered appropriate. ICD codes: Z85.46 CPT4 codes: A: 97603E B: 62059Q C: 21928R 7 SPECIMEN DESCRIPTION URINE, COLLECTION METHOD NOT SPECIFIED CULTURE RESULTS MIXED UROGENITAL DEIRDRE; PLEASE SUBMIT A NEW SPEC IMEN IF CLINICALLY INDICATED. REPORT STATUS FINAL 11/08/2020 Procedures Date Code Description Status 02/14/2021 55368 Office/Outpatient Established Lo w MDM 20-29 Min Completed 01/22/2021 91850 Office/Outpatient Established Lo w MDM 20-29 Min Completed 11/13/2020 11684 Cystectomy, And Ileal Loop Compl eted 11/13/2020 24762 Appendectomy Completed 09/25/2020 89128 Insertion, Of Tempor lasha Indwelling Bladder Catheter Simple Garcia Completed 07/07/2019 18819080 Colonoscopy Completed Medical Devices Description No Information Available Encounters Type Date Location Provider Dx Diagnosis Office Visit 02/14/2021 10:00a 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 Created [address] [facility] [address] [place] [id number] [phone] KRISTA Fowler M.D. Per Joesfa Dobson @ [place] Patient is active with [facility] Patient has benefits for inpatient surgery-hospital Covered @ 100% CPT 88220, 69750, 48032, 88938 (05894, 60082, 61464, 82232)-no prior authorization required Ref# [id number] Per Ayad Goodson @ [place] ([facility] side-auth department) CPT 68597, 13718, 63159, 38708 (61301, 32386, 13464, 69077)-No prior authorization required Ref# [id number] [facility]-Patient is active Per Medicare guidelines-Never needs prior authorization *Based on medical necessity* 10/23/20 MW Created [facility] Urology [address] [place] [address] [phone]
--- OUTSIDE RECORDS SUMMARY | 2021-04-13 14:46 | CCD | Continuity of Care Document ---
Author Sarina Rosa M.D. Organization Unknown Address [address] [place] [address] Phone [phone] Care Team Providers Care Supervisor Gas Meter Repair Name Role Phone Sergey Braun M.D. AUTM [phone] Problems Active Problems Provider Date Sergey hematuria [...] SIG Qnty Indications Ordering Provider Date BCG, [place] Strain - new code eff. 11/29/18 50MG Injection Harry Oviedo MD 05/17/2019 BCG, [place] Strain - new code eff. 11/29/18 50MG Injection WSC2,Nursing Schedule/Proced ure Room 05/17/2019 BCG, [place] Strain - new code eff. 11/29/18 50MG Injection Charbel Yoo MD 9 BCG, [place] Strain - new code eff. 11/29/18 50MG Injection WSC2,Nursing Schedule/Proced ure Room 04/12/2019 BCG, [place] Strain DO Not Use After 9 Dos Injection Ryan Perez P.A. 09/2008 BCG, [place] Strain DO Not Use After 9 Dos Injection Ryan Perez P.A. BCG, [place] Strain DO Not Use After 9 Dos Injection Ryan Perez P.A. BCG, [place] Strain DO Not Use After 9 Dos Injection Sai Barrera.A. BCG, [place] Strain DO Not Use After 9 Dos Injection Ryan Perez P.A. 12/2008 BCG, [place] Strain DO Not Use After 9 Dos [...] After 9 Dos Injection Renée Barrera BCG, [place] Strain DO Not Use After 9 Dos [...] Negative Ua Clarity Not Entered Ua Specific [place] 1.010 1.003-1.030 Ua PH 7.0 5.0-7.5 Ua Bilirubin Negative Ua Urobilinogen 0.2 E.U./dL 0.0-1.0 230 Ua Routine 02/14/2021 [facility] REF TO DR ADDRESS ON ORDER FOR (315)- - Ua Glucose Negative Ua Protein 100 mg/dL Ua Nitrite Negative Ua Leuko Trace Ua Blood Large Ua Color Not Entered Ua Ketones Negative Ua Clarity Not Entered Ua Specific [place] 1.025 1.003-1.030 Ua PH 7.0 5.0-7.5 Ua Bilirubin Negative Ua Urobilinogen 1.0 E.U./dL 0.0-1.0 Urine Cytology 12/05/2020 [facility] [address] [place], [place] [address] [phone] Clinical History Z85.46 Normal Specimen Adequacy Ileal conduit/ne <SEE NOTE> Normal 2 BodySite Voided - Clean C <SEE NOTE> Normal 3 Gross Description Received in a sp <SEE NOTE> Normal 4 Microscopic Description Moderate numbers <SEE NOTE> Normal 5 Final Diagnosis NEGATIVE FOR HIG <SEE NOTE> Normal 6 CPTCode 82970 Normal PDF Report SEE IMAGE 230 Ua Routine 12/05/2020 [facility] REF TO DR ADDRESS ON ORDER FOR (315)- - Ua Glucose Negative Ua Protein 30 mg/dL Ua Nitrite Negative Ua Leuko Moderate Ua Blood Large Ua Color Not Entered Ua Ketones Negative Ua Clarity Not Entered Ua Specific [place] 1.010 1.003-1.030 Ua PH 6.5 5.0-7.5 Ua Bilirubin Negative Ua Urobilinogen 0.2 E.U./dL 0.0-1.0 Laboratory test finding 11/13/2020 [facility] [address] [place] [address] [phone] Surgical Pathology LABORATORY [facility] <SEE NOTE> 7 Laboratory test finding 11/06/2020 [facility] - [facility] [address] [facility] [address] [place] [address] [phone] Urine Culture SPECIMEN DESCRIP <SEE NOTE> 8 230 Ua Routine 11/06/2020 [facility] REF TO DR ADDRESS ON ORDER FOR (315)- - Ua Glucose Negative Ua Protein 30 mg/dL Ua Nitrite Negative Ua Leuko Large Ua Blood Moderate Ua Color Not Entered Ua Ketones Negative Ua Clarity Not Entered Ua Specific [place] 1.015 1.003-1.030 Ua PH 7.0 5.0-7.5 [...] HIGH-GRADE UROT HELIAL CARCINOMA. 7 [facility] [address] [place] [address] SURGICAL PATHOLOGY REPORT Patient Name:SARINA LINARES :1940 [...] Electronically Signed Out By Anisa Mcmillan D.O. [facility] [place] [address] Technical component performed at [facility], [facility], Histopathology, [address] [place] [address], [facility]. Reported at [facility], [address] [place] [address], [facility]. This report may include immunohistochemical or in-situ hybridization results. Testing was developed and the performance characteristics determined by [facility], as required by CLIA '88. The FDA has determined that approval for specific use is not necessary for clinical use. The quality of Hematoxylin and Eosin stains and as applicable, for all immunohistochemical and/or special stains, including positive and negative controls, were reviewed and considered appropriate. ICD codes: Z85.46 CPT4 codes: A: 15966S B: 10137F C: 45422K 8 SPECIMEN DESCRIPTION URINE, COLLECTION METHOD NOT SPECIFIED CULTURE RESULTS MIXED UROGENITAL DEIRDRE; PLEASE SUBMIT A NEW SPEC IMEN IF CLINICALLY INDICATED. REPORT STATUS FINAL 11/08/2020 Procedures Date Code Description Status 03/20/2021 53375 Office/Outpatient Established Lo w MDM 20-29 Min Completed 02/14/2021 44905 Office/Outpatient Established Lo w MDM 20-29 Min Completed 01/22/2021 77763 Office/Outpatient Established Lo w MDM 20-29 Min Completed 11/13/2020 49941 Cystectomy, And Ileal Loop Compl eted 11/13/2020 97216 Appendectomy Completed 09/25/2020 71847 Insertion, Of Tempor lasha Indwelling Bladder Catheter Simple Garcia Completed 07/07/2019 23404096 Colonoscopy Completed Medical Devices Description No Information Available Encounters Type Date Location Provider Dx Diagnosis Office Visit 03/20/2021 9:40a [facility]/ [facility] 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 Urology Tarah Mccormack PA-C Z85.46 [...] ARCADIO Cassidy 11/16/2020 N32.0 Bladder-neck obstruction ARCADIO Vaelntine 11/15/2020 N32.0 Bladder-neck obstruction ARCADIO Valentine 11/15/2020 [...] 2:30 pm - Thierry Poon MD at [facility]/ [facility] Urology * 05/16/2021 2:10 pm - Thierry Poon MD at [facility]/ [facility] 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 Created [address] [facility] [address] [place] [address] [phone] KRISTA Fowler M.D. Per Josefa Dobson @ [place] Patient is active with [employer] [facility] Patient has benefits for inpatient surgery-hospital Covered @ 100% CPT 26144, 66238, 24559, 75638 (39952, 80451, 55759, 04827)-no prior authorization required Ref# [id number] Per Ayad Goodson @ [place] ([facility] side-auth department) CPT 66760, 32245, 43364, 91033 (32977, 94842, 61599, 56675)-No prior authorization required Ref# [id number] [facility] e[facility]-Patient is active Per Medicare guidelines-Never needs prior authorization *Based on medical necessity* 10/23/20 MW Created [facility] [address] [place] [address] [phone]
--- OUTSIDE RECORDS SUMMARY | 2021-04-13 14:46 | CCD | Continuity of Care Document ---
Author Author Braulio CARLIN MD Organization Unknown Address [address] [place] [address], [address] [place] [address] Phone [phone] Care Team Providers Care Aircraft Inspection Record Clerk Name Role Phone KRISTA Fowler M.D. [facility] [phone] Sergey Braun MD [facility] [phone] Problems Description No Information Available Social History Type Date Description Comments Sex Unknown Allergies and adverse reactions Description No Information Available Medications Description No Information Available Immunizations CPT Code Status Date Vaccine Lot # [id number] Given 07/29/2020 Pfizer Covid-19 Sars-Cov-2, mRNA, LNP-S, PF, 30 mcg/ 0.3 mL 81072 Given 07/08/2020 Pfizer Covid-19 Sars-Cov-2, mRNA, LNP-S, PF, 30 mcg/ 0.3 mL Vital Signs Description No Information Available Results Description No Information Available Procedures Date Code Description Status 02/18/2021 47419 Hospital Subsequent Care Level 1 Completed 02/17/2021 79631 Hospital Subsequent Care Level 2 Completed 02/15/2021 30960 Electrocardiogram Interpretation & Report Only Completed 11/18/2020 04044 Electrocardiogram Interpretation & Report Only Completed Medical Devices Description No Information Available Encounters Type Date Location Provider Dx Diagnosis Office Visit 02/18/2021 2:13a [facility] Erick pena MD 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
--- OUTSIDE RECORDS SUMMARY | 2021-04-13 14:46 | CCD | Continuity of Care Document ---
Author Sarina Rosa M.D. Organization Unknown Address [address] [place] [address] Phone [phone] Care Team Providers Care Receiving Associate Store Name Role Phone Sergey Braun M.D. AUTM [phone] Problems Active Problems Provider Date Sergey hematuria [...] SIG Qnty Indications Ordering Provider Date [facility], [place] Strain - new code eff. 11/29/18 50MG Injection Harry Oviedo MD 05/17/2019 [facility], [place] Strain - new code eff. 11/29/18 50MG Injection WSC2,Nursing Schedule/Proced ure Room 05/17/2019 [facility], [place] St[facility] - new code eff. 11/29/18 50MG Injection Charbel Yoo MD 9 [facility], [place] Strain - new code eff. 11/29/18 50MG Injection WSC2,Nursing Schedule/Proced ure Room 04/12/2019 [facility], [place] [facility] DO Not Use After 9 Dos Injection Ryan Perez P.A. 09/2008 [facility], [place] [facility] DO Not Use After 9 Dos Injection Ryan Perez P.A. [facility], [place] St[facility] DO Not Use After 9 Dos Injection Ryan Perez P.A. [facility], [place] Strain DO Not Use After 9 Dos Injection Sai Barrera.A. [facility], [place] DO Not Use After 9 Dos Injection Ryan Perez P.A. 12/2008 [facility], [place] DO Not Use After 9 Dos [...] After 9 Dos Injection Renée Barrera [facility], [place] Strain DO Not Use After 9 Dos [...] Negative Ua Clarity Not Entered Ua Specific Badger 1.010 1.003-1.030 Ua PH 7.0 5.0-7.5 Ua Bilirubin Negative Ua Urobilinogen 0.2 E.U./dL 0.0-1.0 230 Ua Routine 02/14/2021 [facility] REF TO DR ADDRESS ON ORDER FOR (315)- - Ua Glucose Negative Ua Protein 100 mg/dL Ua Nitrite Negative Ua Leuko Trace Ua Blood Large Ua Color Not Entered Ua Ketones Negative Ua Clarity Not Entered Ua Specific Badger 1.025 1.003-1.030 Ua PH 7.0 5.0-7.5 Ua Bilirubin Negative Ua Urobilinogen 1.0 E.U./dL 0.0-1.0 Urine Cytology 12/05/2020 [facility] [address] [place], [place] [address] [phone] Clinical History Z85.46 Normal Specimen Adequacy Ileal conduit/ne <SEE NOTE> Normal 2 BodySite Voided - Clean C <SEE NOTE> Normal 3 Gross Description Received in a sp <SEE NOTE> Normal 4 Microscopic Description Moderate numbers <SEE NOTE> Normal 5 Final Diagnosis NEGATIVE FOR HIG <SEE NOTE> Normal 6 CPTCode 39606 Normal PDF Report SEE IMAGE 230 Ua Routine 12/05/2020 [facility] REF TO DR ADDRESS ON ORDER FOR (315)- - Ua Glucose Negative Ua Protein 30 mg/dL Ua Nitrite Negative Ua Leuko Moderate Ua Blood Large Ua Color Not Entered Ua Ketones Negative Ua Clarity Not Entered Ua Specific Badger 1.010 1.003-1.030 Ua PH 6.5 5.0-7.5 Ua Bilirubin Negative Ua Urobilinogen 0.2 E.U./dL 0.0-1.0 Laboratory test finding 11/13/2020 [facility] [address] [place] [address] [phone] Surgical Pathology LABORATORY ALLIA <SEE NOTE> 7 Laboratory test finding 11/06/2020 [facility] [address] [facility] [address] [place] [address] [phone] Urine Culture SPECIMEN DESCRIP <SEE NOTE> 8 230 Ua Routine 11/06/2020 [facility] REF TO DR ADDRESS ON ORDER FOR (315)- - Ua Glucose Negative Ua Protein 30 mg/dL Ua Nitrite Negative Ua Leuko Large Ua Blood Moderate Ua Color Not Entered Ua Ketones Negative Ua Clarity Not Entered Ua Specific Badger 1.015 1.003-1.030 Ua PH 7.0 5.0-7.5 Ua [...] HIGH-GRADE UROT HELIAL CARCINOMA. 7 LABORATORY [facility] [address] [place] [address] SURGICAL PATHOLOGY REPORT Patient Name:SARINA LINARES :1940 [...] Electronically Signed Out By Anisa Mcmillan D.O. [facility] [place] [address] Technical component performed at [facility], [facility], Histopathology, [address] [place] [address], Critical access hospital. Reported at [facility], [address] [place] [address], [facility]. This report may include immunohistochemical or in-situ hybridization results. Testing was developed and the performance characteristics determined by [facility] [employer] [facility], as required by CLIA '88. The FDA has determined that approval for specific use is not necessary for clinical use. The quality of Hematoxylin and Eosin stains and as applicable, for all immunohistochemical and/or special stains, including positive and negative controls, were reviewed and considered appropriate. ICD codes: Z85.46 CPT4 codes: A: 96047H B: 88787V C: 81627T 8 SPECIMEN DESCRIPTION URINE, COLLECTION METHOD NOT SPECIFIED CULTURE RESULTS MIXED UROGENITAL DEIRDRE; PLEASE SUBMIT A NEW SPEC IMEN IF CLINICALLY INDICATED. REPORT STATUS FINAL 11/08/2020 Procedures Date Code Description Status 03/20/2021 42808 Office/Outpatient Established Lo w MDM 20-29 Min Completed 02/14/2021 05422 Office/Outpatient Established Lo w MDM 20-29 Min Completed 01/22/2021 24575 Office/Outpatient Established Lo w MDM 20-29 Min Completed 11/13/2020 57288 Cystectomy, And Ileal Loop Compl eted 11/13/2020 47689 Appendectomy Completed 09/25/2020 00570 Insertion, Of Tempor lasha Indwelling Bladder Catheter Simple Garcia Completed 07/07/2019 [id number] Colonoscopy Completed Medical Devices Description No Information Available Encounters Type Date Location Provider Dx Diagnosis Office Visit 03/20/2021 9:40a [facility]/ [facility] KRISTA Fowler MD Z85.46 Personal history of malignant neoplasm o f prostate Z85.51 Personal history of malignan t neoplasm of bladder K92.2 Gastrointestinal hemorrhage, unspecified K74.60 Unspecified cirrhosis of irland[place] er C22.0 Liver cell carcinoma Office Visit 02/14/2021 10:00a [facility]/ [facility] 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 Urology Tarah Mccormack PA-C [...] 2:30 pm - Thierry Poon MD at [facility]/ [facility] Urology * 05/16/2021 2:10 pm - Thierry Poon MD at [facility]/ [facility] 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 Created [address] [facility] [address] [place] [address] [phone] KRISTA Fowler M.D. Per Josefa Dobson @ [facility] Patient is active with [employer] [facility] Patient has benefits for inpatient surgery-hospital Covered @ 100% CPT 91515, 48234, 19376, 70151 (79397, 98557, 69782, 36394)-no prior authorization required Ref# [id number] Per Ayad Goodson @ [facility] ([facility] side-auth department) CPT 79601, 59134, 69272, 95889 (86957, 93700, 58943, 09519)-No prior authorization required Ref# [id number] [facility]-Patient is active Per Medicare guidelines-Never needs prior authorization *Based on medical necessity* 10/23/20 MW Created [facility] [address] [place] [address] [phone]
--- OUTSIDE RECORDS SUMMARY | 2021-04-13 14:46 | CCD ---
Author Author [facility] Organization [facility] Address Unknown Phone Unavailable Care Team Providers Care Drier And Pulverizer Tender Name Role Phone Sergey Braun Unavailable PROBLEMS Type Condition ICD9-CM Code LQI30-YV Code Onset Dates Condition S tatus W/U Status Risk SNOMED Code Notes Problem Radiation proctitis K62.7 Active confirmed 091492015 He had a full evaluation of his radiation proctitis in the past. He had a colonoscopy in May 2006 and again in August 2016. Problem Type 2 diabetes mellitus with other diabetic kid nick complication E11.29 Active confirmed 85945204 On metformin t herapy since 2011. Last [...] monitoring. Problem Insomnia, unspecified G47.00 Active confirmed 238993114 Started doxepin at bedtime in 09/2013, but he no longer needs that and takes melatonin and Tylenol PM apparently. Problem Essential (primary) hypertension I10 Active conf irmed 30825045 On losartan hydrochlorothiazide and on Lasix also [...] of urinary calculi Z87.442 Acti ve confirmed 737057094 He had right-sided hydroureter related t o a stone, on CT scan in 05/08. Sees Dr. Poon. Problem Thrombocytopenia, unspecified D69.6 Active confirm ed 824249391 He has chronic anemia and a history [...] malignant neoplasm of prostate Z85.46 Active confirmed 196220641 Prostate cancer, luis e gnosed on basis of elevated PSA in 2004, Laney score 5+5, treated with prostate seed implantation 08/03, external beam radiation therapy -11/03. He is regularly followed by the urologist. PSAs have been undetectable. He had a prostatectomy with his cystectomy in October 2020. Problem Personal history of malignant neoplasm of bladder Z85.51 Active confirmed 030239685 History of bladder c ancer, resected 01/05, [...] polyp of colon Z86.010 Ac tive confirmed 440958321 Per colonoscopy 08/2016. Problem Arthritis of knee M17.10 Active confirmed 37 0107621 He has good luck with lidocaine topically. This is far superior to any other therapy because of his chronic thrombocytopenia and leukopenia and anemia. He also has some neck discomfort and basilar arthritis of the hands. A change in pillows may help his neck and he continues lidocaine on his hands Problem Hypercholesterolemia E78.00 Active confirmed 27440769 His lipids are optimal despite the lack of statin therapy. Because he is diabetic, we need to consider that, but his LDL is already less than 90 and was last evaluated in April 2020. Problem Hepatocellular carcinoma C22.0 Active confirmed 437855371 Diagnosed by biopsy 01/2021--referred to surgical oncology--no note available but some sort of radiation procedure is anticipated after a CT on 03/11/2021. Problem Leg cramps R25.2 Active confirmed 139466518 I continue to recommend magnesium and/or tonic water supplementation. These have been of benefit. 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 Problem Nonalcoholic steatohepatitis (WELLS) K75.81 Acti ve confirmed 745105660 He has a history of mild liver [...] 2012. Problem Chronic anemia D64.9 Active confirmed 17261 5941 He has a chronic low-grade anemia with [...] 03/05/2021. Problem Fatty liver K76.0 Active confirmed 71085042 7 He has a fatty liver but this has progressed to cirrhosis and he also has liver cancer. Problem Other ascites R18.8 Active confirmed 393799 000 He requires another paracentesis. I will increase his spironolatone to 25 mg twice a day and increase his Lasix to 40 mg daily as of 03/05/2021. Problem Liver mass, right lobe R16.0 Active confirmed 019916888 ALLERGIES No Known Allergies ENCOUNTERS from 1940 to 2021-03-05 Encounter Location Date Provider Diagnosis [place] [address] [facility] [phone] [place] [address] 17 Jan, 2021 [facility] Hepatocellular carcinoma C22 .0 IMMUNIZATIONS Vaccine Route Administration Date Status Influenza [...] Education Language: Question Answer Notes Languages spoken: Polish Yazdanism: Question Answer Notes Yazdanism No restorationist beliefs that would impact health care. Domestic [...] never smoker never smoker REASON FOR REFERRAL from 1940 to 2021-03-05 Reason Please see WILLIAM--recently di agnosed hepatocellular cancer, ??resectable. [facility] Diagnosis 1 Hepatocellular carcinoma (C2 2.0) Referral Organization [facility] Referring Provider First Name Sergey Referring Provider Last Name Kade Referring Provider Specialty Family Medicine Referred Provider Jermaine Freeman Referral Priority Urgent Referral Appointment Date 2021-02-22 General Notes Stephanie Oh ANP 021 12:47:01 PM > state patient has appointment at [facility] 02/28/2021 at 9:30 AM VITAL SIGNS No information MEDICATIONS Medication SIG [...] Information RESULTS No Results REASON FOR VISIT Referral to surgical oncology MEDICAL (GENERAL) HISTORY Type Description Date Medical [...] Fowler 11/13/2020 Surgical History Paracentesis Hospitalization History [place]- prostatectomy surgery 11/13- 11/22/2020 Goals Section No Information Health Concerns No Information MEDICAL EQUIPMENT No Information MENTAL STATUS No Information FUNCTIONAL STATUS No Information ASSESSMENTS Encounter Date Diagnosis Assessment Notes Treatment Notes Treatm ent Clinical Notes Jan, Hepatocellular carcinoma (ICD-10 - C22.0 ) Diagnosed by biopsy 01/2021--referred to surgical oncology--??resectable. PLAN OF TREATMENT Medication Medication Name Sig [...] 1 tablet Orally Once a day on Thu/Thu/Fri for 90 days Lasix 40 MG 1 tablet Orally Once a day for 90 days Nov, Spironolactone 25 MG 1 tablet Orally Twice a day for 90 days Dec, Referrals Referral Date Details 2021-02-22 2021-02-22, Please see WILLIAM- -recently diagnosed hepatocellular cancer, ??resectable. Biopsy read at [facility] Appt Details Provider Name:Sergey Braun, 2021-04-02 01 :00:00 PM, [address] [place] [address] , [place], [address], Provider Name:Sergey Braun 2021-05-06 04 :00:00 PM, [address] [place] [address] , [place], [address], Provider Name:Sergey Braun 2021-07-02 03 :30:00 PM, [address] [place] [address] , [place], [address], Insurance Providers Payer Name Payer Address Payer Phone Insured Name Patient Relati onship to Insured Coverage Start Date Coverage End Date [facility] [address] [facility] [id number] SARINA LINARES self MEDICARE Part A and B [address] [facility] [phone] SARINA LINARES self
--- OUTSIDE RECORDS SUMMARY | 2021-04-13 14:46 | CCD ---
Author Author [employer] Organization [employer] [employer] [facility] Address Unknown Phone Unavailable Care Team Providers Care Packing And Stamping Machine Operator Name Role Phone Stephanie Oh Unavailable PROBLEMS Type Condition ICD9-CM Code VLP27-IA Code Onset Dates Condition S tatus W/U Status Risk SNOMED Code Notes Problem Type 2 diabetes mellitus with other diabetic kid nick complication E11.29 Active confirmed 73720232 On metformin t herapy since 2011. Last [...] He will continue home glucose monitoring. Problem Radiation proctitis K62.7 Active confirmed 247336699 He had a full evaluation of his radiation proctitis in the past. He had a colonoscopy in May 2006 and again in August 2016. Problem Nonalcoholic steatohepatitis (WELLS) K75.81 Acti ve confirmed 701011632 He has a history of mild liver [...] serologies were negative in September 2012. Problem Insomnia, unspecified G47.00 Active confirmed 292490376 Started doxepin at bedtime in 09/2013, but he no longer needs that and takes melatonin and Tylenol PM apparently. Problem Essential (primary) hypertension I10 Active conf irmed 80209091 On losartan hydrochlorothiazide and on Lasix also as of late November 2020 because of lower extremity edema. (I switched him from lisinopril HCTZ in September 2012 because of a cough). Blood pressure control is fairly reasonable. I will stop hydrochlorothiazide and start him on spironolactone as of early December 2020, as his edema is still fairly profound. Problem Personal history of malignant neoplasm of bladder Z85.51 Active confirmed 772413073 History of bladder c hi, resected 01/05, 09/2008, April 2011, following which [...] postoperative renal failure which has improved. Problem Personal history of urinary calculi Z87.442 Acti ve confirmed 459583583 He had right-sided hydroureter related t o a stone, on CT scan in 05/08. Sees Dr. Poon. Problem Leg cramps R25.2 Active confirmed 648917743 I continue to recommend magnesium and/or tonic water supplementation. These have been of benefit. Problem History of adenomatous polyp of colon Z86.010 Ac tive confirmed 645035464 Per colonoscopy 08/2016. Problem Arthritis of knee M17.10 Active confirmed 37 8279543 He has good luck with lidocaine topically. This is far superior to any other therapy because of his chronic thrombocytopenia and leukopenia and anemia. He also has some neck discomfort and basilar arthritis of the hands. A change in pillows may help his neck and he continues lidocaine on his hands Problem Liver mass, right lobe R16.0 Active confirmed 906339843 Problem Thrombocytopenia, unspecified D69.6 Active confirm ed 122305650 He has chronic anemia and a history [...] and his platelet count was 167,000. Problem Hepatocellular carcinoma C22.0 Active confirmed 715013519 Diagnosed by biopsy 01/2021--referred to surgical oncology--??resectable. Problem Personal history of malignant neoplasm of prostate Z85.46 Active confirmed 409209909 Prostate cancer, luis e gnosed on basis of elevated PSA in 2004, Mamou score 5+5, treated with prostate seed implantation 08/03, external beam radiation therapy -11/03. He is regularly followed by the urologist. PSAs have been undetectable. He had a prostatectomy with his cystectomy in October 2020. Problem Hypercholesterolemia E78.00 Active confirmed 54570930 His lipids are optimal despite the lack of statin therapy. Because he is diabetic, we need to consider that, but his LDL is already less than 90 and was last evaluated in April 2020. Problem Chronic anemia D64.9 Active confirmed 13786 8006 He has a chronic low-grade anemia [...] of early December 2020, as his hemoglobin remains in the 8 range. Problem Fatty liver K76.0 Active confirmed 7 He has a fatty liver but there is some question of ascites on his exam in December 2020. Ultrasound is ordered. Problem Other ascites R18.8 Active confirmed 143710 000 ALLERGIES No Known Allergies ENCOUNTERS from 1940 to 2021-02-20 Encounter Location Date Provider Diagnosis [facility] [address] [facility] [phone] [place] [address] 22 Jan, 2021 Stephanie Servage Anemia due to acute blood lo ss D62 IMMUNIZATIONS Vaccine Route Administration Date Status COVID-19 dose #2 given elsewhere Unspecified Unknown Jul 29, 2020 Administered Influenza (High Dose 65 & up) IM Intramuscular Mar 21, 2015 A dministered Influenza (High Dose 65 & up) IM Intramuscular Apr 15, 2016 A dministered Zoster 50mcg/0.5mL Shingrix Unknown Mar 16, 2018 Admi nistered Influenza Pharmacy Given Unknown Mar 08, 2020 Adminis tered COVID-19 dose #1 given elsewhere Unspecified Unknown Jul 08, 2020 Administered TD Adult 0.5mL Tetanus Unknown October 06, 2002 Administe red Zoster 50mcg/0.5mL Shingrix Unknown December 09, 2017 Admi nistered Influenza 6-35 months Unknown Mar 09, 2019 Administer ed Influenza (High Dose 65 & up) Unknown Mar 16, 2018 Ad ministered Influenza (High Dose 65 & up) Unknown Apr 01, 2017 Ad ministered Zoster 0.65mL Zostavax Unknown October 06, 2012 [...] Language: Question Answer Notes Languages spoken: Slovenian Temple: Question Answer Notes Temple No mu-ism beliefs that would impact health care. Domestic [...] Active Spironolactone 25 MG 1 tablet Orally Once a day for 90 days Dec, Active Lidocaine 5 % 1 application to affected kn ee Externally Three times a day as needed for pain for 30 days Acti ve Tylenol PM Extra Strength 500-25 MG 1 tablet at bedtime as n eeded Orally Daily Active Ferrous Sulfate 325 (65 Fe) MG 1 tablet Orally Once a day on Thu/Thu/Thu for 90 days Active metFORMIN HCl ER 500 MG 2 tablets with evening meal Orally Once a day for 90 days Active Flonase Allergy Relief 50 MCG/ACT 2 spray in each nost ril Nasally Once a day for 30 days Active Losartan Potassium 100 MG 1 tablet Orally Once a day for 90 days Dec, Active hydrOXYzine HCl 10 MG 1 tablet Orally every 4 hour s as needed for itching for 30 Days Dec, Active Melatonin 10 MG 1 tab Orally once daily Active Lasix 20 MG 1 tablet Orally Once a day for 90 days Nov, Active PROCEDURES No Information RESULTS No Results REASON FOR VISIT hospital follow up questions. MEDICAL (GENERAL) HISTORY Type Description Date Medical [...] Poon 06/22/2019 Surgical History Prostatectomy-Dr. Fowler 11/13/2020 Hospitalization History [place]- prostatectomy surgery 11/13- 11/22/2020 Goals Section No Information Health Concerns No Information MEDICAL EQUIPMENT No Information MENTAL STATUS No Information FUNCTIONAL STATUS No Information ASSESSMENTS Encounter Date Diagnosis Assessment Notes Treatment Notes Treatm ent Clinical Notes Jan, Anemia due to acute blood loss (ICD-10 - D62) PLAN OF TREATMENT Medication Medication Name Sig Start Date Stop Date Losartan Potassium 100 MG 1 tablet Orally Once a day for 90 days Dec, hydrOXYzine HCl 10 MG 1 tablet Orally every 4 hour s as needed for itching for 30 Days Dec, Ferrous Sulfate 325 (65 Fe) MG 1 tablet Orally Once a day on Thu/Thu/Thu for 90 days metFORMIN HCl ER 500 MG 2 tablets with evening meal Orally Once a day for 90 days Spironolactone 25 MG 1 tablet Orally Once a day for 90 days 2020 Lasix 20 MG 1 tablet Orally Once a day for 90 days Nov, Future Test Test Name Order Date CBC - Complete Blood Count [id number] Next Appt Details Provider Name:Sergey Braun, 2021-03-05 01 :30:00 PM, [address] [facility], , [place], [address], Provider Name:Sergey Braun, 2021-04-02 01 :00:00 PM, [address] [place] [address], , [place], [address], Provider Name:Sergey Braun, 2021-05-06 04 :00:00 PM, [address] [place] [address], , [place], [address], Provider Name:Sergey Braun, 2021-07-02 03 :30:00 PM, [address] [place] [address], , [place], [address], Insurance Providers Payer Name Payer Address Payer Phone Insured Name Patient Relati onship to Insured Coverage Start Date Coverage End Date [facility] [address] [facility] [id number] SARINA LINARES self MEDICARE Part A and B [address] [facility] [address] [phone] SARINA LINARES self
--- OUTSIDE RECORDS SUMMARY | 2021-04-13 14:46 | CCD | Continuity of Care Document ---
Author Organization Unknown Address Unknown Phone Unavailable Care Team Providers Care Circuit Court Judge Name Role Phone Sergey Braun M.D. [facility] [phone] Problems Active Problems Provider Date Sergey hematuria [...] Injection WSC2,Nursing Schedule/Proced ure Room 05/17/2019 BCG, [place] Strain - new code eff. 11/29/18 50MG [...] 9 Dos Injection Ryan Perez P.A. BCG, [place] Strain DO Not Use After 9 Dos Injection Ryan Perez P.A. BCG, [place] Strain DO Not Use After 9 Dos Injection Ryan Perez P.A. 12/2008 BCG, [place] Strain DO Not Use After 9 Dos Injection Charity Mcneill R.N., M. S., N.P. 12/15/2007 BCG, [place] Strain DO Not Use After 9 Dos Injection Charity Mcneill R.N., M. S., N.P. 12/08/2007 BCG, [place] Strain DO Not Use After 9 Dos Injection Charity Mcneill R.N., M. S., N.P. 12/02/2007 BCG, [place] Strain DO Not Use After 9 Dos Injection Sai Barrera.A. BCG, [place] Strain DO Not Use After 9 Dos [...] Negative Ua Clarity Not Entered Ua Specific Nelson 1.025 1.003-1.030 Ua PH 7.0 5.0-7.5 Ua Bilirubin Negative Ua Urobilinogen 1.0 E.U./dL 0.0-1.0 Urine Cytology 12/05/2020 [facility] [address] [place] [address] [phone] Clinical History Z85.46 Normal Specimen Adequacy Ileal conduit/ne <SEE NOTE> Normal 1 BodySite Voided - Clean C <SEE NOTE> Normal 2 Gross Description Received in a sp <SEE NOTE> Normal 3 Microscopic Description Moderate numbers <SEE NOTE> Normal 4 Final Diagnosis NEGATIVE FOR HIG <SEE NOTE> Normal 5 CPTCode 39200 Normal PDF Report SEE IMAGE 230 Ua Routine 12/05/2020 [facility] REF TO DR ADDRESS ON ORDER FOR (315)- - Ua Glucose Negative Ua Protein 30 mg/dL Ua Nitrite Negative Ua Leuko Moderate Ua Blood Large Ua Color Not Entered Ua Ketones Negative Ua Clarity Not Entered Ua Specific Nelson 1.010 1.003-1.030 Ua PH 6.5 5.0-7.5 Ua Bilirubin Negative Ua Urobilinogen 0.2 E.U./dL 0.0-1.0 Laboratory test finding 11/13/2020 [facility] [address] [place], [place] [id number] [phone] Surgical Pathology [facility] <SEE NOTE> 6 Laboratory test finding 11/06/2020 [facility] [place] [address] [facility] [address] [place], [place] [address] [phone] Urine Culture SPECIMEN DESCRIP <SEE NOTE> 7 230 Ua Routine 11/06/2020 [facility] REF TO ADDRESS ON ORDER FOR (220)- - Ua Glucose Negative Ua Protein 30 mg/dL Ua Nitrite Negative Ua Leuko Large Ua Blood Moderate Ua Color Not Entered Ua Ketones Negative Ua Clarity Not Entered Ua Specific Nelson 1.015 1.003-1.030 Ua PH 7.0 5.0-7.5 Ua [...] HIGH-GRADE UROT HELIAL CARCINOMA. [address] [place] [address] SURGICAL PATHOLOGY REPORT Patient Name:SARINA LINARES :1940 [...] Electronically Signed Out By Anisa Mcmillan D.O. [facility]. [address] [place] [address] Technical component performed at [facility], Histopathology, [address] [place] [address], [address]. Reported at [facility], [address] [place] [address], [id number]. This report may include immunohistochemical or in-situ hybridization results. Testing was developed and the performance characteristics determined by [facility], as required by CLIA '88. The FDA has determined that approval for specific use is not necessary for clinical use. The quality of Hematoxylin and Eosin stains and as applicable, for all immunohistochemical and/or special stains, including positive and negative controls, were reviewed and considered appropriate. ICD codes: Z85.46 CPT4 codes: A: 22613K B: 96963S C: 50142D 7 SPECIMEN DESCRIPTION URINE, COLLECTION METHOD NOT SPECIFIED CULTURE RESULTS MIXED UROGENITAL DEIRDRE; PLEASE SUBMIT A NEW SPEC IMEN IF CLINICALLY INDICATED. REPORT STATUS FINAL 11/08/2020 Procedures Date Code Description Status 02/14/2021 45138 Office/Outpatient Established Lo w MDM 20-29 Min Completed 01/22/2021 97598 Office/Outpatient Established Lo w MDM 20-29 Min Completed 11/13/2020 04790 Cystectomy, And Ileal Loop Compl eted 11/13/2020 97849 Appendectomy Completed 09/25/2020 05586 Insertion, Of Tempor lasha Indwelling Bladder Catheter Simple Garcia Completed 07/07/2019 50560873 Colonoscopy Completed Medical Devices Description No Information Available Encounters Type Date Location Provider Dx Diagnosis Office Visit 02/14/2021 10:00a [facility] Saurabh/ [facility] prudence Poon MD Z85.46 Personal history of malignan t neoplasm of prostate Z85.51 Personal history of malignan t neoplasm of bladder R31.0 Gross hematuria Office Visit 01/22/2021 11:00a [facility]/ [facility] ARCADIO Jenkins R10.30 [...] 2:10 pm - Thierry Poon MD at [facility]/ 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 Created [address] [facility] [address] [place] [phone] KRISTA Fowler M.D. Per Josefa Dobson @ [place] Patient is active with [employer] [facility] Patient has benefits for inpatient surgery-hospital Covered @ 100% CPT 49389, 73480, 65356, 56098 (12902, 64290, 45625, 02879)-no prior authorization required Ref# [id number] Per Ayad Goodson @ [place] ([facility] side-auth department) CPT 85705, 09866, 49326, 74727 (57079, 12795, 83024, 71080)-No prior authorization required Ref# [id number] [facility] e[facility]-Patient is active Per Medicare guidelines-Never needs prior authorization *Based on medical necessity* 10/23/20 MW Created [facility] [address] [place] [phone]
--- OUTSIDE RECORDS SUMMARY | 2021-04-13 14:50 | CCD ---
Author Author [facility] Organization [facility] Address Unknown Phone Unavailable Care Team Providers Care Farm Demonstrator Name Role Phone Amee HDZ PA Unavailable Unavailable ANDREINA, M DENVER PA Unavailable Unavailable ANDREINA, M DENVER PA Unavailable Unavailable ANDREINA, M DENVER PA Unavailable Unavailable ANDREINA, M DENVER PA Unavailable Unavailable ANDREINA, M DENVER PA Unavailable Unavailable ANDREINA, M DENVER PA Unavailable Unavailable ANDREINA, M DENVER PA Unavailable Unavailable ANDREINA, M DENVER PA Unavailable Unavailable ANDREINA, M DENVER PA Unavailable Unavailable ANDREINA, M DENVER PA Unavailable Unavailable ANDREINA, M DENVER PA Unavailable Unavailable ANDREINA, M DENVER PA Unavailable Unavailable ANDREINA, M DENVER PA Unavailable Unavailable ANDREINA, M DENVER PA Unavailable Unavailable ANDREINA, M DENVER PA Unavailable Unavailable ANDREINA, M DENVER PA Unavailable Unavailable ANDREINA, M DENVER PA Unavailable Unavailable ANDREINA, M DENVER PA Unavailable Unavailable ANDREINA, M DENVER PA Unavailable Unavailable ANDREINA, M DENVER PA Unavailable Unavailable ANDREINA M DENVER PA Unavailable Unavailable ANDREINA M DENVER PA Unavailable Unavailable ANDREINA, M DENVER PA Unavailable Unavailable ISIDORO WARD Unavailable Unavailable Eulalia Muñiz MD Unavailable Unavailable Eulalia Muñiz MD Unavailable Unavailable Eulalia Muñiz MD Unavailable Unavailable Eulalia Muñiz MD Unavailable Unavailable Eulalia Muñiz MD Unavailable Unavailable Eulalia Muñiz MD Unavailable Unavailable Eulalia Muñiz MD Unavailable Unavailable Eulalia Muñiz MD Unavailable Unavailable Eulalia Muñiz MD Unavailable Unavailable Eulalia Muñiz MD Unavailable Unavailable Eulalia Muñiz MD Unavailable Unavailable Eulalia Muñiz MD Unavailable Unavailable Eulalia Muñiz MD Unavailable Unavailable Eulalia Muñiz MD Unavailable Unavailable Eulalia Muñiz MD Unavailable Unavailable Eulalia Muñiz MD Unavailable Unavailable Eulalia Muñiz MD Unavailable Unavailable Eulalia Muñiz MD Unavailable Unavailable Eulalia Muñiz MD Unavailable Unavailable Eulalia Muñiz MD Unavailable Unavailable Eulalia Muñiz MD Unavailable Unavailable Eulalia Muñiz MD Unavailable Unavailable Eulalia Muñiz MD Unavailable Unavailable Eulalia Muñiz MD Unavailable Unavailable Eulalia Muñiz MD Unavailable Unavailable LAURELKSICELIZABETH MD Unavailable Unavailable LAURELKSIC ILIJUAN A MANN Unavailable Unavailable LAURELKSICELIZABETH MD Unavailable Unavailable ALEKSIC ILIJUAN A MANN Unavailable Unavailable ALEKSICELIZABETH MD Unavailable Unavailable ALEKSIC ILIJUAN A MANN Unavailable Unavailable ALEKSIC ILIJUAN A MANN Unavailable Unavailable ALEKSIC ILIJUAN A MANN Unavailable Unavailable ALEKSIC ILIJUAN A MANN Unavailable Unavailable ALEKSIC ILIJUAN A MANN Unavailable Unavailable ALEKSIC ILIJUAN A MD Unavailable Unavailable ALEKSIC ILIJUAN A MD Unavailable Unavailable ALEKSIC ILIJUAN A MD Unavailable Unavailable ALEKSIC ILIJUAN A MD Unavailable Unavailable ALEKSIC ILIJUAN A MD Unavailable Unavailable ALEKSIC ILIJUAN A MD Unavailable Unavailable ALEKSIC ILIJUAN A MD Unavailable Unavailable ALEKSIC ILIJUAN A MD Unavailable Unavailable ALEKSIC ILIJUAN A MD Unavailable Unavailable ALEKSIC ILIJUAN A MD Unavailable Unavailable ALEKSIC ILIJUAN A MD Unavailable Unavailable ALEKSIC, ILIJA MD Unavailable Unavailable ALEKSIC ILIJUAN A MD Unavailable Unavailable ALEKSIC, ILIJUAN A MD Unavailable Unavailable ALEKSIC ILIJUAN A MD Unavailable Unavailable ALEKSIC ILIJUAN A MD Unavailable Unavailable ALEKSIC, ILIJA MD Unavailable Unavailable ALEKSIC, ILIJA MD Unavailable Unavailable ELIZABETH WATERS MD Unavailable Unavailable LAURELKSELIZABETH REDD MD Unavailable Unavailable LAURELKSELIZABETH REDD MD Unavailable Unavailable LAURELKSELIZABETH REDD MD Unavailable Unavailable LAURELKSICELIZABETH MD Unavailable Unavailable LAURELKSICELIZABETH MD Unavailable Unavailable ALEKSICELIZABETH MD Unavailable Unavailable Pete, Jermaine DO Unavailable Unavailable Pete, Jermaine DO Unavailable Unavailable Pete, Jermaine DO Unavailable Unavailable Pete, Jermaine DO Unavailable Unavailable Pete, Jermaine DO Unavailable Unavailable Pete, Jermaine DO Unavailable Unavailable Pete, Jermaine DO Unavailable Unavailable Pete, Jermaine DO Unavailable Unavailable Pete, Jermaine DO Unavailable Unavailable Pete, Jermaine DO Unavailable Unavailable Pete, Jermaine DO Unavailable Unavailable Pete, Jermaine DO Unavailable Unavailable Pete, Jermaine DO Unavailable Unavailable Pete, Jermaine DO Unavailable Unavailable Pete, Jermaine DO Unavailable Unavailable Pete, Jermaine DO Unavailable Unavailable Pete, Jermaine DO Unavailable Unavailable Pete, Jermaine DO Unavailable Unavailable Pete, Jermaine DO Unavailable Unavailable Pete, Jermaine DO Unavailable Unavailable Pete, Jermaine DO Unavailable Unavailable Pete, Jermaine DO Unavailable Unavailable Pete, Jermaine DO Unavailable Unavailable Pete, Jermaine DO Unavailable Unavailable Pete, Jermaine DO Unavailable Unavailable Pete, Jermaine DO Unavailable Unavailable Pete, Jermaine DO Unavailable Unavailable Pete, Jermaine DO Unavailable Unavailable Pete, Jermaine DO Unavailable Unavailable Pete, Jermaine DO Unavailable Unavailable Pete, Jermaine DO Unavailable Unavailable Pete, Jermaine DO Unavailable Unavailable Pete, Jermaine DO Unavailable Unavailable Pete, Jermaine DO Unavailable Unavailable Pete, Jermaine DO Unavailable Unavailable Pete, Jermaine DO Unavailable Unavailable Pete, Jermaine DO Unavailable Unavailable Pete, Jermaine DO Unavailable Unavailable Pete, Jermaine DO Unavailable Unavailable Pete, Jermaine DO Unavailable Unavailable Pete, Jermaine DO Unavailable Unavailable Pete, Jermaine DO Unavailable Unavailable Pete, Jermaine DO Unavailable Unavailable Ptee, Jermaine DO Unavailable Unavailable Pete, Jermaine DO Unavailable Unavailable Pete, Jermaine DO Unavailable Unavailable Pete, Jermaine DO Unavailable Unavailable Pete, Jermaine DO Unavailable Unavailable Pete, Jermaine DO Unavailable Unavailable Pete, Jermaine DO Unavailable Unavailable Pete, Jermaine DO Unavailable Unavailable Pete, Jermaine DO Unavailable Unavailable Pete, Jermaine DO Unavailable Unavailable Pete, Jermaine DO Unavailable Unavailable Pete, Jermaine DO Unavailable Unavailable Pete, Jermaine DO Unavailable Unavailable Pete, Jermaine DO Unavailable Unavailable Pete, Jermaine DO Unavailable Unavailable Pete, Jermaine DO Unavailable Unavailable Pete, Jermaine DO Unavailable Unavailable Pete, Jermaine DO Unavailable Unavailable Pete, Jermaine DO Unavailable Unavailable Pete, Jermaine DO Unavailable Unavailable Pete, Jermaine DO Unavailable Unavailable Pete, Jermaine DO Unavailable Unavailable Pete, Jermaine DO Unavailable Unavailable Pete, Jermaine DO Unavailable Unavailable Pete, Jermaine DO Unavailable Unavailable Pete, Jermaine DO Unavailable Unavailable Pete, Jermaine DO Unavailable Unavailable Pete, Jermaine DO Unavailable Unavailable Pete, Jermaine DO Unavailable Unavailable Pete, Jermaine DO Unavailable Unavailable Pete, Jermaine DO Unavailable Unavailable Pete, Jermaine DO Unavailable Unavailable GARETH MONTANA MD Unavailable Unavailable GARETH MONTANA MD Unavailable Unavailable GARETH MONTANA MD Unavailable Unavailable GARETH MONTANA MD Unavailable Unavailable GARETH MONTANA MD Unavailable Unavailable GARETH MONTANA MD Unavailable Unavailable GARETH MONTANA MD Unavailable Unavailable Saxena, S Kalia RPA Unavailable Unavailable Saxena, S Kalia RPA Unavailable Unavailable Saxena, S Kalia RPA Unavailable Unavailable Saxena, S Kalia RPA Unavailable Unavailable Saxena, S Kalia RPA Unavailable Unavailable Saxena, S Kalia RPA Unavailable Unavailable Saxena, S Kalia RPA Unavailable Unavailable Saxena, S Kalia RPA Unavailable Unavailable Saxena, S Kalia RPA Unavailable Unavailable Saxena, S Kalia RPA Unavailable Unavailable Saxena, S Kalia RPA Unavailable Unavailable Saxena, S Kalia RPA Unavailable Unavailable Saxena, S Kalia RPA Unavailable Unavailable Saxena, S Kalia RPA Unavailable Unavailable Saxena, S Kalia RPA Unavailable Unavailable Saxena, S Kalia RPA Unavailable Unavailable Saxena, S Kalia RPA Unavailable Unavailable Saxena, S Kalia RPA Unavailable Unavailable Saxena, S Kalia RPA Unavailable Unavailable Saxena, S Kalia RPA Unavailable Unavailable Saxena, S Kalia RPA Unavailable Unavailable Saxena, S Kalia RPA Unavailable Unavailable Saxena, S Kalia RPA Unavailable Unavailable Saxena, S Kalia RPA Unavailable Unavailable Saxena, S Kalia RPA Unavailable Unavailable Saxena, S Kalia RPA Unavailable Unavailable Saxena, S Kalia RPA Unavailable Unavailable Saxena, S Kalia RPA Unavailable Unavailable Saxena, S Kalia RPA Unavailable Unavailable Saxena, S Kalia RPA Unavailable Unavailable Saxena, S Kalia RPA Unavailable Unavailable Saxena, S Kalia RPA Unavailable Unavailable Saxena, S Kalia RPA Unavailable Unavailable Saxena, S Kalia RPA Unavailable Unavailable Saxena, S Kalia RPA Unavailable Unavailable Saxena, S Kalia RPA Unavailable Unavailable Saxena, S Kalia RPA Unavailable Unavailable Saxena, S Kalia RPA Unavailable Unavailable Saxena, S Kalia RPA Unavailable Unavailable Saxena, S Kalia RPA Unavailable Unavailable Saxena, S Kalia RPA Unavailable Unavailable Saxena, S Kalia RPA Unavailable Unavailable Saxena, S Kalia RPA Unavailable Unavailable Saxena, S Kalia RPA Unavailable Unavailable Saxena, S Kalia RPA Unavailable Unavailable Saxena, S Kalia RPA Unavailable Unavailable Saxena, S Kalia RPA Unavailable Unavailable Saxena, S Kalia RPA Unavailable Unavailable Saxena, S Kalia RPA Unavailable Unavailable Saxena, S Kalia RPA Unavailable Unavailable Saxena, S Kalia RPA Unavailable Unavailable Saxena, S Kalia RPA Unavailable Unavailable Saxena, S Kalia RPA Unavailable Unavailable Saxena, S Kalia RPA Unavailable Unavailable Saxena, S Kalia RPA Unavailable Unavailable Saxena, S Kalia RPA Unavailable Unavailable Saxena, S Kalia RPA Unavailable Unavailable Saxena, S Kalia RPA Unavailable Unavailable Saxena, S Kalia RPA Unavailable Unavailable Saxena, S Kalia RPA Unavailable Unavailable Saxena, S Kaila RPA Unavailable Unavailable Saxena, S Kalia RPA Unavailable Unavailable Saxena, S Kalia RPA Unavailable Unavailable Saxena, S Kalia RPA Unavailable Unavailable Amee CASTANEDA MD Unavailable Unavailable Amee CASTANEDA MD Unavailable Unavailable Amee CASTANEDA MD Unavailable Unavailable Amee CASTANEDA MD Unavailable Unavailable Amee CASTANEDA MD Unavailable Unavailable Amee CASTANEDA MD Unavailable Unavailable Amee CASTANEDA MD Unavailable Unavailable Amee CASTANEDA MD Unavailable Unavailable Amee CASTANEDA MD Unavailable Unavailable Amee CASTANEDA MD Unavailable Unavailable Amee CASTANEDA MD Unavailable Unavailable Amee CASTANEDA MD Unavailable Unavailable Amee CASTANEDA MD Unavailable Unavailable Amee CASTANEDA MD Unavailable Unavailable Amee CASTANEDA MD Unavailable Unavailable Amee CASTANEDA MD Unavailable Unavailable Amee CASTANEDA MD Unavailable Unavailable Amee CASTANEDA MD Unavailable Unavailable MADISSOOAmee MD Unavailable Unavailable MADISSOOAmee MD Unavailable Unavailable MADISSOOAmee MD Unavailable Unavailable MADISSOOAmee MD Unavailable Unavailable MADISSOOAmee MD Unavailable Unavailable MADISSOO, Amee MANUEL MD Unavailable Unavailable MADISSOOAmee MD Unavailable Unavailable MADISSOOAmee MD Unavailable Unavailable MADISSOOAmee MD Unavailable Unavailable MADISSOO, Amee MANUEL MD Unavailable Unavailable MADISSOO, Amee MANUEL MD Unavailable Unavailable MADISSOO, Amee MANUEL MD Unavailable Unavailable MADISSOO, Amee MANUEL MD Unavailable Unavailable MADISSOO, Amee MANUEL MD Unavailable Unavailable MADISSOO, Amee MANUEL MD Unavailable Unavailable MADISSOO, Amee MANUEL MD Unavailable Unavailable MADISSOO, Amee MANUEL MD Unavailable Unavailable MADISSOO, Amee MANUEL MD Unavailable Unavailable MADISSOO, Amee MANUEL MD Unavailable Unavailable MADISSOO, Amee MANUEL MD Unavailable Unavailable MADISSOOAmee MD Unavailable Unavailable MADISSOOAmee MD Unavailable Unavailable MADISSOOAmee MD Unavailable Unavailable MADISSOOAmee MD Unavailable Unavailable MADISSOOAmee MD Unavailable Unavailable MADISSOOAmee MD Unavailable Unavailable MADISSOOAmee MD Unavailable Unavailable MADISSOOAmee MD Unavailable Unavailable MADISSOOAmee MD Unavailable Unavailable MADISSOOAmee MD Unavailable Unavailable MADARIELAOOAmee MD Unavailable Unavailable MADARIELAOOAmee MD Unavailable Unavailable DENISEOOAmee MD Unavailable Unavailable MADARIELAOOAmee MD Unavailable Unavailable DENISEOOAmee MD Unavailable Unavailable MADARIELAOOAmee MD Unavailable Unavailable MADARIELAOOAmee MD Unavailable Unavailable MADARIELAOOAmee MD Unavailable Unavailable MADARIELAOOAmee MD Unavailable Unavailable MADARIELAOOAmee MD Unavailable Unavailable MADARIELAOOAmee MD Unavailable Unavailable MADARIELAOOAmee MD Unavailable Unavailable MADARIELAOOAmee MD Unavailable Unavailable MADARIELAOO, Amee MANUEL MD Unavailable Unavailable MADARIELAOOAmee MD Unavailable Unavailable MADARIELAOOAmee MD Unavailable Unavailable MADARIELAOOAmee MD Unavailable Unavailable MADISSOOAmee MD Unavailable Unavailable MADISSOO, Amee MANUEL MD Unavailable Unavailable MADISSOO, Amee MANUEL MD Unavailable Unavailable MADISSOO, M MAR MD Unavailable Unavailable Amee CASTANEDA MD Unavailable Unavailable Amee CASTANEDA MD Unavailable Unavailable Amee CASTANEDA MD Unavailable Unavailable Amee CASATNEDA MD Unavailable Unavailable Amee CASTANEDA MD Unavailable Unavailable Amee CASTANEDA MD Unavailable Unavailable Amee CASTANEDA MD Unavailable Unavailable Amee CASTANEDA MD Unavailable Unavailable Amee CASTANEDA MD Unavailable Unavailable Amee CASTANEDA MD Unavailable Unavailable Amee CASTANEDA MD Unavailable Unavailable Amee CASTANEDA MD Unavailable Unavailable Amee CASTANEDA MD Unavailable Unavailable Amee CASTANEDA MD Unavailable Unavailable Amee CASTANEDA MD Unavailable Unavailable Amee CASTANEDA MD Unavailable Unavailable Amee PEREZ MD Unavailable Unavailable Amee PEREZ MD Unavailable Unavailable Amee PEREZ MD Unavailable Unavailable Amee PEREZ MD Unavailable Unavailable Amee PEREZ MD Unavailable Unavailable Amee PEREZ MD Unavailable Unavailable Amee PEREZ MD Unavailable Unavailable Amee PEREZ MD Unavailable Unavailable Amee PEREZ MD Unavailable Unavailable Amee PEREZ MD Unavailable Unavailable Amee PEREZ MD Unavailable Unavailable Amee PEREZ MD Unavailable Unavailable Amee PEREZ MD Unavailable Unavailable Amee PEREZ MD Unavailable Unavailable Amee PEREZ MD Unavailable Unavailable Amee PEREZ MD Unavailable Unavailable Amee PEREZ MD Unavailable Unavailable Amee PEREZ MD Unavailable Unavailable Amee PEREZ MD Unavailable Unavailable Amee PEREZ MD Unavailable Unavailable Amee PEREZ MD Unavailable Unavailable Amee PEREZ MD Unavailable Unavailable Amee PEREZ MD Unavailable Unavailable Amee PEREZ MD Unavailable Unavailable Amee PEREZ MD Unavailable Unavailable Amee PEREZ MD Unavailable Unavailable Amee PEREZ MD Unavailable Unavailable Amee PEREZ MD Unavailable Unavailable Amee PEREZ MD Unavailable Unavailable Amee PEREZ MD Unavailable Unavailable Amee PEREZ MD Unavailable Unavailable Amee PEREZ MD Unavailable Unavailable Amee PEREZ MD Unavailable Unavailable Amee PEREZ MD Unavailable Unavailable Amee PEREZ MD Unavailable Unavailable Amee PEREZ MD Unavailable Unavailable Amee PEREZ MD Unavailable Unavailable Amee PEREZ MD Unavailable Unavailable Amee PEREZ MD Unavailable Unavailable Amee PEREZ MD Unavailable Unavailable Amee PEREZ MD Unavailable Unavailable Amee PEREZ MD Unavailable Unavailable Amee PEREZ MD Unavailable Unavailable Amee PEREZ MD Unavailable Unavailable Amee PEREZ MD Unavailable Unavailable Amee PEREZ MD Unavailable Unavailable Amee PEREZ MD Unavailable Unavailable Amee PEREZ MD Unavailable Unavailable Amee PEREZ MD Unavailable Unavailable Amee PEREZ MD Unavailable Unavailable Amee PEREZ MD Unavailable Unavailable Amee PEREZ MD Unavailable Unavailable Amee PEREZ MD Unavailable Unavailable Amee PEREZ MD Unavailable Unavailable Amee PEREZ MD Unavailable Unavailable Amee PERZE MD Unavailable Unavailable Amee PEREZ MD Unavailable Unavailable Amee PEREZ MD Unavailable Unavailable Amee PEREZ MD Unavailable Unavailable Amee PEREZ MD Unavailable Unavailable Amee PEREZ MD Unavailable Unavailable Amee PEREZ MD Unavailable Unavailable Amee PEREZ MD Unavailable Unavailable Amee PEREZ MD Unavailable Unavailable Amee PEREZ MD Unavailable Unavailable Amee PEREZ MD Unavailable Unavailable Amee PEREZ MD Unavailable Unavailable Amee PEREZ MD Unavailable Unavailable Amee PEREZ MD Unavailable Unavailable Amee PEREZ MD Unavailable Unavailable Amee PEREZ MD Unavailable Unavailable Amee PEREZ MD Unavailable Unavailable Amee PEREZ MD Unavailable Unavailable Amee PEREZ MD Unavailable Unavailable Amee PEREZ MD Unavailable Unavailable Amee PEREZ MD Unavailable Unavailable Amee PEREZ MD Unavailable Unavailable Amee PEREZ MD Unavailable Unavailable Amee PEREZ MD Unavailable Unavailable Amee PEREZ MD Unavailable Unavailable Amee PEREZ MD Unavailable Unavailable Amee PEREZ MD Unavailable Unavailable Amee PEREZ MD Unavailable Unavailable Amee PEREZ MD Unavailable Unavailable Amee PEREZ MD Unavailable Unavailable Amee PEREZ MD Unavailable Unavailable mAee PEREZ MD Unavailable Unavailable Amee PEREZ MD Unavailable Unavailable Amee PEREZ MD Unavailable Unavailable Amee PEREZ MD Unavailable Unavailable Amee PEREZ MD Unavailable Unavailable Amee PEREZ MD Unavailable Unavailable Kitchen, N Po MD Unavailable Unavailable Kitchen, N Po MD Unavailable Unavailable Kitchen, N Po MD Unavailable Unavailable Kitchen, N Po MD Unavailable Unavailable Kitchen, N Po MD Unavailable Unavailable Kitchen, N Po MD Unavailable Unavailable Kitchen, N Po MD Unavailable Unavailable Kitchen, N Po MD Unavailable Unavailable Kitchen, N Po MD Unavailable Unavailable Kitchen, N Po MD Unavailable Unavailable Kitchen, N Po MD Unavailable Unavailable Kitchen, N Po MD Unavailable Unavailable Kitchen, N Po MD Unavailable Unavailable Kitchen, N Po MD Unavailable Unavailable Kitchen, N Po MD Unavailable Unavailable Kitchen, N Po MD Unavailable Unavailable Kitchen, N Po MD Unavailable Unavailable Kitchen, N Po MD Unavailable Unavailable Kitchen, N Po MD Unavailable Unavailable Kitchen, N Po MD Unavailable Unavailable Kitchen, N Po MD Unavailable Unavailable Kitchen, N Po MD Unavailable Unavailable Kitchen, N Po MD Unavailable Unavailable Kitchen, N Po MD Unavailable Unavailable Kitchen, N Po MD Unavailable Unavailable Kitchen, N Po MD Unavailable Unavailable Kitchen, N Po MD Unavailable Unavailable Kitchen, N Po MD Unavailable Unavailable Kitchen, N Po MD Unavailable Unavailable Kitchen, N Po MD Unavailable Unavailable Kitchen, N Po MD Unavailable Unavailable Kitchen, N Po MD Unavailable Unavailable Kitchen, N Po MD Unavailable Unavailable Kitchen, N Po MD Unavailable Unavailable Kitchen, N Po MD Unavailable Unavailable Kitchen, N Po MD Unavailable Unavailable Kitchen, N Po MD Unavailable Unavailable Kitchen, N Po MD Unavailable Unavailable Kitchen, N Po MD Unavailable Unavailable Kitchen, N Po MD Unavailable Unavailable Kitchen, N Po MD Unavailable Unavailable Kitchen, N Po MD Unavailable Unavailable Kitchen, N Po MD Unavailable Unavailable Kitchen, N Po MD Unavailable Unavailable Kitchen, N Po MD Unavailable Unavailable Kitchen, N Po MD Unavailable Unavailable Kitchen, N Po MD Unavailable Unavailable Kitchen, N Po MD Unavailable Unavailable Kitchen, N Po MD Unavailable Unavailable Kitchen, N Po MD Unavailable Unavailable Kitchen, N Po MD Unavailable Unavailable Kitchen, N Po MD Unavailable Unavailable Kitchen, N Po MD Unavailable Unavailable Kitchen, N Po MD Unavailable Unavailable Kitchen, N Po MD Unavailable Unavailable Kitchen, N Po MD Unavailable Unavailable Kitchen, N Po MD Unavailable Unavailable Kitchen, N Po MD Unavailable Unavailable Kitchen, N Po MD Unavailable Unavailable Kitchen, N Po MD Unavailable Unavailable Kitchen, N Po MD Unavailable Unavailable Kitchen, N Po MD Unavailable Unavailable Kitchen, N Po MD Unavailable Unavailable Kitchen, N Po MD Unavailable Unavailable Kitchen, N Po MD Unavailable Unavailable Kitchen, N Po MD Unavailable Unavailable Kitchen, N Po MD Unavailable Unavailable Kitchen, N Po MD Unavailable Unavailable Kitchen, N Po MD Unavailable Unavailable Kitchen, N Po MD Unavailable Unavailable Kitchen, N Po MD Unavailable Unavailable Kitchen, N Po MD Unavailable Unavailable Kitchen, N Po MD Unavailable Unavailable Kitchen, N Po MD Unavailable Unavailable Kitchen, N Po MD Unavailable Unavailable Kitchen, N Po MD Unavailable Unavailable Kitchen, N Po MD Unavailable Unavailable Kitchen, N Po MD Unavailable Unavailable Kitchen, N Po MD Unavailable Unavailable Kitchen, N Po MD Unavailable Unavailable Kitchen, N Po MD Unavailable Unavailable Kitchen, N Po MD Unavailable Unavailable Kitchen, N Po MD Unavailable Unavailable Kitchen, N Po MD Unavailable Unavailable Kitchen, N Po MD Unavailable Unavailable Kitchen, N Po MD Unavailable Unavailable Kitchen, N Po MD Unavailable Unavailable Kitchen, N Po MD Unavailable Unavailable Kitchen, N Po MD Unavailable Unavailable Kitchen, N Po MD Unavailable Unavailable Kitchen, N Po MD Unavailable Unavailable Kitchen, N Po MD Unavailable Unavailable Kitchen, N Po MD Unavailable Unavailable Kitchen, N Po MD Unavailable Unavailable Kitchen, N Po MD Unavailable Unavailable Kitchen, N Po MD Unavailable Unavailable Kitchen, N Po MD Unavailable Unavailable Kitchen, N Po MD Unavailable Unavailable Kitchen, N Po MD Unavailable Unavailable Kitchen, N Po MD Unavailable Unavailable Kitchen, N Po MD Unavailable Unavailable RENATASai MORALES MD Unavailable Unavailable RENATASai MORALES MD Unavailable Unavailable RENATASai RAMIREZ MD Unavailable Unavailable RENATA, Sai CULVER MD Unavailable Unavailable RENATA, Sai CULVER MD Unavailable Unavailable RENATA, Sai CULVER MD Unavailable Unavailable RENATA, Sai CULVER MD Unavailable Unavailable RENATA, Sai CULVER MD Unavailable Unavailable RENATA, Sai CULVER MD Unavailable Unavailable RENATA, Sai CULVER MD Unavailable Unavailable RENATA, Sai CULVER MD Unavailable Unavailable RENATA, Sai CULVER MD Unavailable Unavailable RENATA, Sai CULVER MD Unavailable Unavailable RENATASai MD Unavailable Unavailable RENATA, Sai CULVER MD Unavailable Unavailable RENATA, Sai CULVER MD Unavailable Unavailable RENATA, Sai CULVER MD Unavailable Unavailable RENATA, Sai CULVER MD Unavailable Unavailable RENATA, Sai CULVER MD Unavailable Unavailable Sai YANEZ MD Unavailable Unavailable Bessie CARLIN MD Unavailable Unavailable Bessie CARLIN MD Unavailable Unavailable HARTBessie NORIEGA MD Unavailable Unavailable Bessie CARLIN MD Unavailable Unavailable Bessie CARLIN MD Unavailable Unavailable Bessie CARLIN MD Unavailable Unavailable Bessie CARLIN MD Unavailable Unavailable Bessie CARLIN MD Unavailable Unavailable Bessie CARLIN MD Unavailable Unavailable Bessie CARLIN MD Unavailable Unavailable Bessie CARLIN MD Unavailable Unavailable Bessie CARLIN MD Unavailable Unavailable Bessie CARLIN MD Unavailable Unavailable Bessie CARLIN MD Unavailable Unavailable Bessie CARLIN MD Unavailable Unavailable Bessie CARLIN MD Unavailable Unavailable HARTBessie NORIEGA MD Unavailable Unavailable Bessie CARLIN MD Unavailable Unavailable Bessie CARLIN MD Unavailable Unavailable Bessie CARLIN MD Unavailable Unavailable Bessie CARLIN MD Unavailable Unavailable Bessie CARLIN MD Unavailable Unavailable Bessie CARLIN MD Unavailable Unavailable Bessie CARLIN MD Unavailable Unavailable Bessie CARLIN MD Unavailable Unavailable Bessie CARLIN MD Unavailable Unavailable Bessie CARLIN MD Unavailable Unavailable Bessie CARLIN MD Unavailable Unavailable Bessie CARLIN MD Unavailable Unavailable Bessie CARLIN MD Unavailable Unavailable Bessie CARLIN MD Unavailable Unavailable Bessie CARLIN MD Unavailable Unavailable Bessie CARLIN MD Unavailable Unavailable Bessie CARLIN MD Unavailable Unavailable Bessie CARLIN MD Unavailable Unavailable HARTBessie NORIEGA MD Unavailable Unavailable HARTBessie NORIEGA MD Unavailable Unavailable HARTBessie NORIEGA MD Unavailable Unavailable HARTBessie NORIEGA MD Unavailable Unavailable Bessie CARLIN MD Unavailable Unavailable Bessie CARLIN MD Unavailable Unavailable Bessie CARLIN MD Unavailable Unavailable Bessie CARLIN MD Unavailable Unavailable Bessie CARLIN MD Unavailable Unavailable Bessie CARLIN MD Unavailable Unavailable Bessie CARLIN MD Unavailable Unavailable Besise CARLIN MD Unavailable Unavailable Bessie CARLIN MD Unavailable Unavailable Bessie CARLIN MD Unavailable Unavailable Bessie CARLIN MD Unavailable Unavailable Bessie CARLIN MD Unavailable Unavailable Bessie CARLIN MD Unavailable Unavailable Bessie CARLIN MD Unavailable Unavailable Bessie CARLIN MD Unavailable Unavailable Bessie CARLIN MD Unavailable Unavailable Bessie CARLIN MD Unavailable Unavailable Bessie CARLIN MD Unavailable Unavailable Bessie CARLIN MD Unavailable Unavailable Bessie CARLIN MD Unavailable Unavailable Bessie CARLIN MD Unavailable Unavailable Bessie CARLIN MD Unavailable Unavailable Bessie CARLIN MD Unavailable Unavailable Bessie CARLIN MD Unavailable Unavailable Bessie CARLIN MD Unavailable Unavailable Bessie CARLIN MD Unavailable Unavailable Bessie CARLIN MD Unavailable Unavailable ELIZABETH WATERS MD Unavailable Unavailable ELIZABETH WATERS MD Unavailable Unavailable ELIZABETH WATERS MD Unavailable Unavailable ELIZABETH WATERS MD Unavailable Unavailable ELIZABETH WATERS MD Unavailable Unavailable ELIZABETH WATERS MD Unavailable Unavailable ELIZABETH WATERS MD Unavailable Unavailable ELIZABETH WATERS MD Unavailable Unavailable ELIZABETH WATERS MD Unavailable Unavailable ELIZABETH WATERS MD Unavailable Unavailable ELIZABETH WATERS MD Unavailable Unavailable ELIZABETH WATERS MD Unavailable Unavailable ELIZABETH WATERS MD Unavailable Unavailable ELIZABETH WATERS MD Unavailable Unavailable ELIZABETH WATERS MD Unavailable Unavailable ELIZABETH WATERS MD Unavailable Unavailable ELIZABETH WATERS MD Unavailable Unavailable ELIZABETH WATERS MD Unavailable Unavailable ELIZABETH WATERS MD Unavailable Unavailable ELIZABETH WATERS MD Unavailable Unavailable ELIZABETH WATERS MD Unavailable Unavailable ELIZABETH WATERS MD Unavailable Unavailable ALEKSIC, ILIJA MD Unavailable Unavailable ALEKSIC, ILIJA MD Unavailable Unavailable ALEKSIC, ILIJA MD Unavailable Unavailable ALEKSIC, ILIJA MD Unavailable Unavailable ALEKSIC, ILIJA MD Unavailable Unavailable ALEKSIC, ILIJA MD Unavailable Unavailable ALEKSIC, ILIJA MD Unavailable Unavailable ALEKSIC, ILIJA MD Unavailable Unavailable ALEKSIC, ILIJA MD Unavailable Unavailable ALEKSIC, ILIJA MD Unavailable Unavailable ALEKSIC, ILIJA MD Unavailable Unavailable ALEKSIC, ILIJA MD Unavailable Unavailable ALEKSIC, ILIJA MD Unavailable Unavailable ED, TEST DEFAULT Unavailable Unavailable RENATA, P ABIOLA MD Unavailable Unavailable RENATA, P ABIOLA MD Unavailable Unavailable RENATA, P ABIOLA MD Unavailable Unavailable RENATA, P ABIOLA MD Unavailable Unavailable RENATA, P ABIOLA MD Unavailable Unavailable RENATA, P ABIOLA MD Unavailable Unavailable RENATA, P ABIOLA MD Unavailable Unavailable RENATA, P ABIOLA MD Unavailable Unavailable RENATA, P ABIOLA MD Unavailable Unavailable RENATA, P ABIOLA MD Unavailable Unavailable RENATA, P ABIOLA MD Unavailable Unavailable RENATA, P ABIOLA MD Unavailable Unavailable RENATA, P ABIOLA MD Unavailable Unavailable RENATA, P ABIOLA MD Unavailable Unavailable RENATA, P ABIOLA MD Unavailable Unavailable RENATA, P ABIOLA MD Unavailable Unavailable RENATA, P ABIOLA MD Unavailable Unavailable RENATA, P ABIOLA MD Unavailable Unavailable RENATA, P ABIOLA MD Unavailable Unavailable RENATA, P ABIOLA MD Unavailable Unavailable Soddy Daisy, F Tarah PA Unavailable Unavailable Easton, F Tarah PA Unavailable Unavailable Easton, F Tarah PA Unavailable Unavailable Soddy Daisy, F Tarah PA Unavailable Unavailable Easton, F Tarah PA Unavailable Unavailable Soddy Daisy, F Tarah PA Unavailable Unavailable Easton, F Tarah PA Unavailable Unavailable Soddy Daisy, F Tarah PA Unavailable Unavailable Soddy Daisy, F Tarah PA Unavailable Unavailable Easton, F Tarah PA Unavailable Unavailable Easton, F Tarah PA Unavailable Unavailable Easton, F Tarah PA Unavailable Unavailable Easton, F Tarah PA Unavailable Unavailable Easton, F Tarah PA Unavailable Unavailable Easton, F Tarah PA Unavailable Unavailable Soddy Daisy, F Tarah PA Unavailable Unavailable Soddy Daisy, F Tarah PA Unavailable Unavailable Soddy Daisy, F Tarah PA Unavailable Unavailable Soddy Daisy, F Tarah PA Unavailable Unavailable Easton, F Tarah PA Unavailable Unavailable Easton, F Tarah PA Unavailable Unavailable Soddy Daisy, F Tarah PA Unavailable Unavailable Soddy Daisy, F Tarah PA Unavailable Unavailable Soddy Daisy, F Tarah PA Unavailable Unavailable Soddy Daisy, F Tarah PA Unavailable Unavailable Soddy Daisy, F Tarah PA Unavailable Unavailable Soddy Daisy, F Tarah PA Unavailable Unavailable Soddy Daisy, F Tarah PA Unavailable Unavailable Soddy Daisy, F Tarah PA Unavailable Unavailable Easton, F Tarah PA Unavailable Unavailable Easton, F Tarah PA Unavailable Unavailable Easton, F Tarah PA Unavailable Unavailable Easton, F Tarah PA Unavailable Unavailable Easton, F Tarah PA Unavailable Unavailable Eastno, F Tarah PA Unavailable Unavailable Easton, F Tarah PA Unavailable Unavailable Easton, F Tarah PA Unavailable Unavailable Easton, F Tarah PA Unavailable Unavailable Cloonan, L Cyn PA Unavailable Unavailable Cloonan, L Cyn PA Unavailable Unavailable Cloonan, L Cyn PA Unavailable Unavailable Cloonan, L Cyn PA Unavailable Unavailable Cloonan, L Cyn PA Unavailable Unavailable Cloonan, L Cyn PA Unavailable Unavailable Cloonan, L Cyn PA Unavailable Unavailable Cloonan, L Cyn PA Unavailable Unavailable Cloonan, L Cyn PA Unavailable Unavailable Cloonan, L Cyn PA Unavailable Unavailable Cloonan, L Cyn PA Unavailable Unavailable Cloonan, L Cyn PA Unavailable Unavailable Cloonan, L Cyn PA Unavailable Unavailable Cloonan, L Cyn PA Unavailable Unavailable Cloonan, L Cyn PA Unavailable Unavailable Cloonan, L Cyn PA Unavailable Unavailable Cloonan, L Cyn PA Unavailable Unavailable Cloonan, L Cyn PA Unavailable Unavailable Cloonan, L Cyn PA Unavailable Unavailable Cloonan, L Cyn PA Unavailable Unavailable Cloonan, L Cyn PA Unavailable Unavailable Cloonan, L Cyn PA Unavailable Unavailable Cloonan, L Cyn PA Unavailable Unavailable Cloonan, L Cyn PA Unavailable Unavailable Cloonan, L Cyn PA Unavailable Unavailable Cloonan, L Cyn PA Unavailable Unavailable Cloonan, L Cyn PA Unavailable Unavailable Cloonan, L Cyn PA Unavailable Unavailable Cloonan, L Cyn PA Unavailable Unavailable Cloonan, L Cyn PA Unavailable Unavailable Cloonan, L Cyn PA Unavailable Unavailable Cloonan, L Cyn PA Unavailable Unavailable Cloonan, L Cyn PA Unavailable Unavailable Cloonan, L Cyn PA Unavailable Unavailable Cloonan, L Cyn PA Unavailable Unavailable Melyssa RANKIN MD Unavailable Unavailable Melyssa RANKIN MD Unavailable Unavailable Melyssa RANKIN MD Unavailable Unavailable Melyssa RANKIN MD Unavailable Unavailable Melyssa RANKIN MD Unavailable Unavailable Melyssa RANKIN MD Unavailable Unavailable Melyssa RANKIN MD Unavailable Unavailable Melyssa RANKIN MD Unavailable Unavailable Melyssa RANKIN MD Unavailable Unavailable Melyssa RANKIN MD Unavailable Unavailable Melyssa RANKIN MD Unavailable Unavailable Melyssa RANKIN MD Unavailable Unavailable Melyssa RANKIN MD Unavailable Unavailable Melyssa RANKIN MD Unavailable Unavailable Melyssa RANKIN MD Unavailable Unavailable Melyssa RANKIN MD Unavailable Unavailable Melyssa RANKIN MD Unavailable Unavailable Amee PEREZ MD Unavailable Unavailable Amee PEREZ MD Unavailable Unavailable Amee PEREZ MD Unavailable Unavailable Amee PEREZ MD Unavailable Unavailable Amee PEREZ MD Unavailable Unavailable Amee PEREZ MD Unavailable Unavailable Amee PEREZ MD Unavailable Unavailable Amee PEREZ MD Unavailable Unavailable Amee PEREZ MD Unavailable Unavailable Amee PEREZ MD Unavailable Unavailable Amee PEREZ MD Unavailable Unavailable Amee PEREZ MD Unavailable Unavailable Amee PEREZ MD Unavailable Unavailable Amee PEREZ MD Unavailable Unavailable Amee PEREZ MD Unavailable Unavailable Amee PEREZ MD Unavailable Unavailable Amee PERZE MD Unavailable Unavailable Amee PEREZ MD Unavailable Unavailable Amee PEREZ MD Unavailable Unavailable Amee PEREZ MD Unavailable Unavailable Amee PEREZ MD Unavailable Unavailable Amee PEREZ MD Unavailable Unavailable Amee PEREZ MD Unavailable Unavailable Amee PEREZ MD Unavailable Unavailable Amee PEREZ MD Unavailable Unavailable Amee PEREZ MD Unavailable Unavailable Amee PEREZ MD Unavailable Unavailable Amee PEREZ MD Unavailable Unavailable Amee PEREZ MD Unavailable Unavailable Amee PEREZ MD Unavailable Unavailable Amee PEREZ MD Unavailable Unavailable Amee PEREZ MD Unavailable Unavailable Amee PEREZ MD Unavailable Unavailable Amee PEREZ MD Unavailable Unavailable Amee PEREZ MD Unavailable Unavailable Amee PEREZ MD Unavailable Unavailable Amee PEREZ MD Unavailable Unavailable Amee PEREZ MD Unavailable Unavailable Amee PEREZ MD Unavailable Unavailable Amee PEREZ MD Unavailable Unavailable Amee PEREZ MD Unavailable Unavailable Amee PEREZ MD Unavailable Unavailable Amee PEREZ MD Unavailable Unavailable Amee PEREZ MD Unavailable Unavailable Amee PEREZ MD Unavailable Unavailable Amee PEREZ MD Unavailable Unavailable Amee PEREZ MD Unavailable Unavailable Amee PEREZ MD Unavailable Unavailable Amee PEREZ MD Unavailable Unavailable Amee PEREZ MD Unavailable Unavailable Amee PEREZ MD Unavailable Unavailable Amee PEREZ MD Unavailable Unavailable Amee PEREZ MD Unavailable Unavailable Amee PEREZ MD Unavailable Unavailable Amee PEREZ MD Unavailable Unavailable Amee PEREZ MD Unavailable Unavailable Amee PEREZ MD Unavailable Unavailable Amee PEREZ MD Unavailable Unavailable Amee PEREZ MD Unavailable Unavailable Amee PEREZ MD Unavailable Unavailable Amee PEREZ MD Unavailable Unavailable Amee PEREZ MD Unavailable Unavailable Amee PEREZ MD Unavailable Unavailable Amee PEREZ MD Unavailable Unavailable Amee PEREZ MD Unavailable Unavailable Amee PEREZ MD Unavailable Unavailable Amee PEREZ MD Unavailable Unavailable Amee PEREZ MD Unavailable Unavailable Amee PEREZ MD Unavailable Unavailable Amee PEREZ MD Unavailable Unavailable Amee PEREZ MD Unavailable Unavailable Amee PEREZ MD Unavailable Unavailable Amee PEREZ MD Unavailable Unavailable Amee PEREZ MD Unavailable Unavailable Amee PEREZ MD Unavailable Unavailable Amee PEREZ MD Unavailable Unavailable Amee PEREZ MD Unavailable Unavailable Amee PEREZ MD Unavailable Unavailable Amee PEREZ MD Unavailable Unavailable Amee PEREZ MD Unavailable Unavailable Amee PEREZ MD Unavailable Unavailable Amee PEREZ MD Unavailable Unavailable Amee PEREZ MD Unavailable Unavailable Amee PEREZ MD Unavailable Unavailable Amee PEREZ MD Unavailable Unavailable Amee PEREZ MD Unavailable Unavailable Amee PEREZ MD Unavailable Unavailable Amee PEREZ MD Unavailable Unavailable Amee PEREZ MD Unavailable Unavailable Amee PEREZ MD Unavailable Unavailable Amee PEREZ MD Unavailable Unavailable Amee PEREZ MD Unavailable Unavailable GARETH MONTANA MD Unavailable Unavailable GARETH MONTANA MD Unavailable Unavailable GARETH MONTANA MD Unavailable Unavailable GARETH MONTANA MD Unavailable Unavailable GARETH MONTANA MD Unavailable Unavailable GARETH MONTANA MD Unavailable Unavailable GARETH MONTANA MD Unavailable Unavailable Amee CASTANEDA MD Unavailable Unavailable Amee CASTANEDA MD Unavailable Unavailable Amee CASTANEDA MD Unavailable Unavailable Amee CASTANEDA MD Unavailable Unavailable Amee CASTANEDA MD Unavailable Unavailable Amee CASTANEDA MD Unavailable Unavailable Amee CASTANEDA MD Unavailable Unavailable Amee CASTANEDA MD Unavailable Unavailable Amee CASTANEDA MD Unavailable Unavailable Amee CASTANEDA MD Unavailable Unavailable MADISSOOAmee MD Unavailable Unavailable MADISSOOAmee MD Unavailable Unavailable MADISSOOAmee MD Unavailable Unavailable MADISSOOAmee MD Unavailable Unavailable MADISSOOAmee MD Unavailable Unavailable MADISSOO, Amee MANUEL MD Unavailable Unavailable MADISSOOAmee MD Unavailable Unavailable MADISSOOAmee MD Unavailable Unavailable MADISSOOAmee MD Unavailable Unavailable MADISSOO, Amee MANUEL MD Unavailable Unavailable MADISSOO, Amee MANUEL MD Unavailable Unavailable MADISSOO, Amee MANUEL MD Unavailable Unavailable MADISSOO, Amee MANUEL MD Unavailable Unavailable MADISSOO, Amee MANUEL MD Unavailable Unavailable MADISSOO, Amee MANUEL MD Unavailable Unavailable MADISSOO, Amee MANUEL MD Unavailable Unavailable MADISSOO, Amee MANUEL MD Unavailable Unavailable MADISSOO, Amee MANUEL MD Unavailable Unavailable MADISSOO, Amee MANUEL MD Unavailable Unavailable MADISSOO, Amee MANUEL MD Unavailable Unavailable MADISSOOAmee MD Unavailable Unavailable MADISSOOAmee MD Unavailable Unavailable MADISSOOAmee MD Unavailable Unavailable MADISSOOAmee MD Unavailable Unavailable MADISSOOAmee MD Unavailable Unavailable MADISSOOAmee MD Unavailable Unavailable MADISSOOAmee MD Unavailable Unavailable MADISSOOAmee MD Unavailable Unavailable MADISSOOAmee MD Unavailable Unavailable MADISSOOAmee MD Unavailable Unavailable MADARIELAOOAmee MD Unavailable Unavailable MADARIELAOOAmee MD Unavailable Unavailable DENISEOOAmee MD Unavailable Unavailable MADARIELAOOAmee MD Unavailable Unavailable DENISEOOAmee MD Unavailable Unavailable MADARIELAOOAmee MD Unavailable Unavailable MADARIELAOOAmee MD Unavailable Unavailable MADARIELAOOAmee MD Unavailable Unavailable MADARIELAOOAmee MD Unavailable Unavailable MADARIELAOOAmee MD Unavailable Unavailable MADARIELAOOAmee MD Unavailable Unavailable MADARIELAOOAmee MD Unavailable Unavailable MADARIELAOOAmee MD Unavailable Unavailable MADARIELAOO, Amee MANUEL MD Unavailable Unavailable MADARIELAOOAmee MD Unavailable Unavailable MADARIELAOOAmee MD Unavailable Unavailable MADARIELAOOAmee MD Unavailable Unavailable MADISSOOAmee MD Unavailable Unavailable MADISSOO, Amee MANUEL MD Unavailable Unavailable MADISSOO, Amee MANUEL MD Unavailable Unavailable MADISSOO, M MAR MD Unavailable Unavailable MADARIELAOOAmee MD Unavailable Unavailable DENISEOOAmee MD Unavailable Unavailable DENISEOOAmee MD Unavailable Unavailable DENISEOOAmee MD Unavailable Unavailable Amee CASTANEDA MD Unavailable Unavailable Amee CASTANEDA MD Unavailable Unavailable Amee CASTANEDA MD Unavailable Unavailable Amee CASTANEDA MD Unavailable Unavailable Amee CASTANEDA MD Unavailable Unavailable DENISEOOAmee MD Unavailable Unavailable DENISEOOAmee MD Unavailable Unavailable Amee CASTANEDA MD Unavailable Unavailable Amee CASTANEDA MD Unavailable Unavailable DENISEOOAmee MD Unavailable Unavailable DENISEOOAmee MD Unavailable Unavailable DENISEOOAmee MD Unavailable Unavailable Amee CASTANEDA MD Unavailable Unavailable DENISEOOAmee MD Unavailable Unavailable Amee CASTANEDA MD Unavailable Unavailable Amee CASTANEDA MD Unavailable Unavailable Amee CASTANEDA MD Unavailable Unavailable Amee CASTANEDA MD Unavailable Unavailable Amee CASTANEDA MD Unavailable Unavailable Amee CASTANEDA MD Unavailable Unavailable Clyde BURCH Unavailable Unavailable PHYSICIAN, PHYSICIAN ER Unavailable Unavailable Melyssa RANKIN MD Unavailable Unavailable Melyssa RANKIN MD Unavailable Unavailable Melyssa RANKIN MD Unavailable Unavailable Melyssa RANKIN MD Unavailable Unavailable Melyssa RANKIN MD Unavailable Unavailable Melyssa RANKIN MD Unavailable Unavailable Melyssa RANKIN MD Unavailable Unavailable Melyssa RANKIN MD Unavailable Unavailable Melyssa RANKIN MD Unavailable Unavailable Melyssa RANKIN MD Unavailable Unavailable Melyssa RANKIN MD Unavailable Unavailable Melyssa RANKIN MD Unavailable Unavailable Melyssa RANKIN MD Unavailable Unavailable Melyssa RANKIN MD Unavailable Unavailable Melyssa RANKIN MD Unavailable Unavailable Melyssa RANKIN MD Unavailable Unavailable Melyssa RANKIN MD Unavailable Unavailable Анна Braun MD Unavailable Unavailable Анна Braun MD Unavailable Unavailable Анна Braun MD Unavailable Unavailable Анна Braun MD Unavailable Unavailable Анна Braun MD Unavailable Unavailable Анна Braun MD Unavailable Unavailable Анна Braun MD Unavailable Unavailable Анна Braun MD Unavailable Unavailable Анна Braun MD Unavailable Unavailable Анна Braun MD Unavailable Unavailable Анна Braun MD Unavailable Unavailable Анна Braun MD Unavailable Unavailable Анна Braun MD Unavailable Unavailable Анна Braun MD Unavailable Unavailable Анна Braun MD Unavailable Unavailable Анна Braun MD Unavailable Unavailable Анна Braun MD Unavailable Unavailable Анна Braun MD Unavailable Unavailable Анна Braun MD Unavailable Unavailable Анна Braun MD Unavailable Unavailable Анна Braun MD Unavailable Unavailable Анна Braun MD Unavailable Unavailable Анна Braun MD Unavailable Unavailable Анна Braun MD Unavailable Unavailable Анна Braun MD Unavailable Unavailable Анна Braun MD Unavailable Unavailable Анна Braun MD Unavailable Unavailable Анна Braun MD Unavailable Unavailable Анна Braun MD Unavailable Unavailable Анна Braun MD Unavailable Unavailable Анна Braun MD Unavailable Unavailable Анна Braun MD Unavailable Unavailable Анна Braun MD Unavailable Unavailable Анна Braun MD Unavailable Unavailable Анна Braun MD Unavailable Unavailable Анна Braun MD Unavailable Unavailable Анна Braun MD Unavailable Unavailable Анна Braun MD Unavailable Unavailable Анна Braun MD Unavailable Unavailable Анна Braun MD Unavailable Unavailable Анна Braun MD Unavailable Unavailable Анна Braun MD Unavailable Unavailable Анна Braun MD Unavailable Unavailable Анна Braun MD Unavailable Unavailable Анна Braun MD Unavailable Unavailable Анна Braun MD Unavailable Unavailable Анна Braun MD Unavailable Unavailable Анна Braun MD Unavailable Unavailable Анна Braun MD Unavailable Unavailable Анна Braun MD Unavailable Unavailable Анна Braun MD Unavailable Unavailable Анна Braun MD Unavailable Unavailable Анна Braun MD Unavailable Unavailable Анна Braun MD Unavailable Unavailable Анна Braun MD Unavailable Unavailable Анна Braun MD Unavailable Unavailable Анна Braun MD Unavailable Unavailable Анна Braun MD Unavailable Unavailable Анна Braun MD Unavailable Unavailable Анна Braun MD Unavailable Unavailable Анна Braun MD Unavailable Unavailable Анна Braun MD Unavailable Unavailable Анна Braun MD Unavailable Unavailable Анна Braun MD Unavailable Unavailable Анна Braun MD Unavailable Unavailable Анна Braun MD Unavailable Unavailable Анна Braun MD Unavailable Unavailable Анна Braun MD Unavailable Unavailable Анна Braun MD Unavailable Unavailable Анна Braun MD Unavailable Unavailable Анна Braun MD Unavailable Unavailable Анна Braun MD Unavailable Unavailable Анна Braun MD Unavailable Unavailable Анна Braun MD Unavailable Unavailable Анна Braun MD Unavailable Unavailable Анна Braun MD Unavailable Unavailable Анна Braun MD Unavailable Unavailable Анна Braun MD Unavailable Unavailable Анна Braun MD Unavailable Unavailable PHYSICIAN, ER Unavailable Unavailable LORENA RITTER MD Unavailable Unavailable RITTER LORENALIVIER MANN Unavailable Unavailable RITTER LORENA MD Unavailable Unavailable RITTER, LORENA MD Unavailable Unavailable RITTER LORENALIVIER MANN Unavailable Unavailable RITTER LORENALIVIER MANN Unavailable Unavailable RITTER LORENA MD Unavailable Unavailable RITTER LORENA MD Unavailable Unavailable RITTER LORENA MD Unavailable Unavailable RITTER LORENA MD Unavailable Unavailable RITTER LORENA MD Unavailable Unavailable RITTER, LORENA MD Unavailable Unavailable RITTER LORENA MD Unavailable Unavailable RITTER, LORENA MD Unavailable Unavailable RITTER, LORENA MD Unavailable Unavailable RITETR LORENA MD Unavailable Unavailable RITTER, LORENA MD Unavailable Unavailable RITTER LORENA MD Unavailable Unavailable RITTER, LORENA MD Unavailable Unavailable RITTER, LORENA MD Unavailable Unavailable RITTER LORENALIVIER MANN Unavailable Unavailable RITTER LORENA MD Unavailable Unavailable RITTER LORENA MD Unavailable Unavailable RITTER LORENA MD Unavailable Unavailable RITTER LORENA MD Unavailable Unavailable RITTER LORENA MD Unavailable Unavailable RITTER LORENA MD Unavailable Unavailable RITTER LORENA MD Unavailable Unavailable RITTER LORENA MD Unavailable Unavailable RITTER LORENA MD Unavailable Unavailable RITTER LORENA MD Unavailable Unavailable RITTER, LORENA MD Unavailable Unavailable RITTER LORENA MD Unavailable Unavailable RITTER LORENA MD Unavailable Unavailable RITTER LORENA MD Unavailable Unavailable RITTER LORENALIVIER MANN Unavailable Unavailable RITTER LORENALIVIER MANN Unavailable Unavailable RITTER LORENALIVIER MANN Unavailable Unavailable RITTER LORENALIVIER MANN Unavailable Unavailable RITTER LORENALIVIER MANN Unavailable Unavailable RITTER LORENALIVIER MANN Unavailable Unavailable RITTER LORENALIVIER MANN Unavailable Unavailable RITTER LORENALIVIER MANN Unavailable Unavailable RITTER LORENALIVIER MANN Unavailable Unavailable RITTER LORENALIVIER MANN Unavailable Unavailable RITTER LORENALIVIER MANN Unavailable Unavailable RITTER LORENALIVIER MANN Unavailable Unavailable RITTER LORENALIVIER MANN Unavailable Unavailable RITTER LORENALIVIER MANN Unavailable Unavailable RITTER LORENALIVIER MANN Unavailable Unavailable RITTER LORENALIVIER MANN Unavailable Unavailable RITTER LORENALIVIER MANN Unavailable Unavailable RITTER LORENALIVIER MANN Unavailable Unavailable RITTER LORENALIVIER MANN Unavailable Unavailable RITTER LORENALIVIER MANN Unavailable Unavailable RITTER LORENALIVIER MANN Unavailable Unavailable RITTER LORENALIVIER MANN Unavailable Unavailable RITTER LORENALIVIER MANN Unavailable Unavailable RITTER LORENALIVIER MANN Unavailable Unavailable RITTER LORENALIVIER MANN Unavailable Unavailable RITTERLORENA MAHMOOD MD Unavailable Unavailable RITTER LORENALIVIER MANN Unavailable Unavailable RITTERLORENA MD Unavailable Unavailable Re-disclosure Warning The records that you are about to access may contain information from federally-assisted alcohol or drug abuse programs. If such information is present, then the following federally mandated warning applies: This information has been disclosed to you from records protected by federal confidentiality rules (42 CFR part 2). The federal rules prohibit you from making any further disclosure of this information unless further disclosure is expressly permitted by the written consent of the person to whom it pertains or as otherwise permitted by 42 CFR part 2. A general authorization for the release of medical or other information is NOT sufficient for this purpose. The Federal rules restrict any use of the information to criminally investigate or prosecute any alcohol or drug abuse patient.The records that you are about to access may contain highly sensitive health information, the redisclosure of which is protected by Article 27-F of the [facility] Public Health law. If you continue you may have access to information: Regarding HIV / AIDS; Provided by facilities licensed or operated by the [facility] Office of Mental Health; or Provided by the [facility] Office for People With Developmental Disabilities. If such information is present, then the following [facility] mandated warning applies: This information has been disclosed to you from confidential records which are protected by state law. State law prohibits you from making any further disclosure of this information without the specific written consent of the person to whom it pertains, or as otherwise permitted by law. Any unauthorized further disclosure in violation of state law may result in a fine or residential sentence or both. A general authorization for the release of medical or other information is NOT sufficient authorization for further disc losure. Allergies and Adverse Reactions Type Description Substance Reaction Status Data Source(s ) Propensity to adverse reactions NO KNOWN ALLERGIES NO KNOWN ALLERGIES [facility] Propensity to adverse reactions BICALUTAMIDE BICALUTAMIDE Palpitation s [facility] Casodex Casodex Casodex active [facility] ([facility]) Family History Family Member Name Family Member Gender Family Member Status Date o f Status Description Data Source(s) Unknown Unknown Problem [facility] ([facility]) Unknown Unknown Problem [facility] ([facility] [place] Encounters Encounter Providers Location Date Indications Data Source(s ) Outpatient Attender: Cyn ERVIN 06/27/2021 12:00:[address] [facility] Outpatient Attender: Jermaine Freeman DO 06/27/2021 12:00:[address] [facility] Outpatient Attender: Jermaine Freeman DO 04/23/2021 12:00:[address] [facility] Outpatient Attender: Eulalia Galvan i MDAdmitter: Eulalia Muñiz MDReferrer: Eulalia Muñiz MD [id number] 04/09/2021 12:00:00 AM EST - 04/09/2021 02:53:00 PM [facility] Liver cell carcinoma [facility] Liver cell carcinoma Patient admitted. Outpatient Referrer: Eulalia Muñiz MD 04/09/2021 12: 00:[address] [facility] Outpatient Referrer: Eulalia Muñiz MD 04/09/2021 12: 00:[address] [facility] Outpatient Attender: MARC EDAttender : PRIYA BURCHReferrer: Eulalia Muñiz MD [id number] 04/05/2021 12:00:00 AM EDT - 04/06/2021 12:00:00 AM EDT [facility] Outpatient [address] [address] 04/02/2021 12:00:00 AM EDT [facility] ([facility]) [place] ( in Healthcare facility) Attender: INNA YANEZ MDAdmitter: ABIOLA YANEZ MDConsultant: ISIDORO WARD 03/30/2021 01:33:00 AM EDT [facility] Emergency Attender: ABIOLA BLOUNT I MDAttender: GARETH MONTANA MDAttender: ER PHYSICIAN 03/29/2021 10:43:15 PM EDT [facility] Outpatient Attender: ABIOLA BLOUNT I MDAttender: GARETH MONTANA MDAttender: ER PHYSICIANAdmitter: ABIOLA YANEZ MD 09:05:00 PM EDT - 03/31/2021 02:19:00 PM EDT RECURRENT OSTOMY BLEED, HX OF BLADDER CA, LIVER CA [facility] RECURRENT OSTOMY BLEED, HX OF BLADDER CA , LIVER CA Patient discharged. Outpatient Attender: Jermaine Freeman DO [id number] 03/28/20 12:00:00 AM EDT - 03/28/2021 03:07:13 PM EDT [facility] Outpatient Referrer: Jermaine Freeman DO 03/22/2021 12:00: 00 AM EDT Liver cell carcinoma [facility] Liver cell carcinoma Outpatient Attender: Krista Meneses/ Asha.M.P. Urology 03/20 09:40:00 AM EDT [facility] ([facility] Unknown [address] [address] 03/19/2021 12:00:00 AM EDT eCW1 ([facility]) Outpatient Attender: Eulalia Muñiz MD [id number] 03/15/2021 03:57:13 PM EDT [facility] Office Visit Attender: DENVER Meneses/ A.M.P. Urol ogy 03/12/2021 04:58:00 PM EDT [facility] ([facility]) Outpatient Attender: DENVER Meneses/ A.M.P. Urol ogy 03/11/2021 08:24:00 AM EDT [facility] ([facility]) Inpatient Attender: ELIZABETH WATERS MDAttender: ER PHYSICIAN 03/10/2021 02:21:00 PM EDT [facility] Inpatient Attender: ELIZABETH WATERS MDAttender: ER PHYSICIAN 03/10/2021 01:33:49 PM EDT [facility] Inpatient Attender: ELIZABETH Andre tender: ER PHYSICIANAdmitter: ELIZABETH WATERS MD 03/10/2021 12:23:00 PM EDT - 03/12/2021 03:09:00 PM EDT BLEEDING STOMA [facility] BLEEDING STOMA Patient discharged. [place] [address] [address] 03/06/2021 12:00:00 AM EDT eCW1 ([facility]) Unknown [address] [address] 03/05/2021 12:00:00 AM EDT eCW1 ([facility]) Outpatient [address] [address] 03/05/2021 12:00:00 AM EDT eCW1 ([facility]) Outpatient Attender: Eulalia Muñiz MD [id number] 03/04/2021 12:00:00 AM EDT - 03/04/2021 12:42:30 PM EDT [facility] Outpatient 03/04/2021 12:00:00 AM EDT [facility] new pt Outpatient Attender: Jermaine Freeman DO [id number] 02/29/20 12:00:00 AM EDT - 02/28/2021 12:20:04 PM EDT [facility] Unknown [address] [address] 02/20/2021 12:00:00 AM EDT eCW1 ([facility]) Outpatient Attender: IESHA CARLIN MD [facility] [place] 02/18/2021 02:13:00 AM EDT [facility] ([facility] Outpatient Attender: IESHA CARLIN MD CMP [facility] 02/17/2021 01:59:00 AM EDT [facility] ([facility]) Outpatient Attender: ER PHYSICIAN 02/16/2021 01:10:00 AM E DT [facility] Inpatient Attender: NIRALI Stroud donis: GARETH MONTANA MDAttender: ER PHYSICIANAdmitter: GARETH MONTANA MD 02/16/2021 12:28:09 AM EDT [facility] Inpatient Attender: NIRALI Stroud donis: GARETH MONTANA MDAttender: ER PHYSICIANAdmitter: NIRALI RANKIN MD 02/15/2021 10:55:00 P M EDT - 02/18/2021 10:51:00 AM EDT ACUTE BLOOD LOSS ANEMIA [facility] ACUTE BLOOD LOSS ANEMIA Patient discharged. [place] [address] [address] 02/15/2021 12:00:00 AM EDT [facility] Outpatient Attender: MAR Meneses/ Leonardo Urol ogy 02/14/2021 10:00:00 AM EDT [facility] ([facility]) Outpatient Admitter: Анна Braun MDReferrer: Анна Braun MD 02/12/2021 12:00:00 AM EDT Liver cell carcinoma [facility] Liver cell carcinoma Unknown [address] [place] [address] 02/05/2021 12:00:00 AM EDT eCW1 ([facility]) Inpatient Attender: ER PHYSICIAN 01/31/2021 12:56:00 AM E [facility] Inpatient Attender: ARNAUD PEREZ MDAttender: ER Sai HYSIRAFA 01/31/2021 12:29:40 AM EDT [facility] Inpatient Attender: ARNAUD HAAS MDAttender: ER PHYSICIANAdmitter: ARNAUD PEREZ MD 01/30/2021 10:55:00 PM EDT - 01/31/2021 11:15:00 AM EDT HEMATURIA [facility] HEMATURIA Patient discharged. Outpatient Attender: Kalia Meneses/ Leonardo Urolo gy 01/22/2021 11:00:00 AM EDT [facility] ([facility] [place] [address] [address] 01/22/2021 12:00:00 AM EDT [facility]CW1 [facility] [place] [address] [address] 01/22/2021 12:00:00 AM EDT eCW1 ([facility]) Unknown [address] [address] 01/17/2021 12:00:00 AM EDT eCW1 ([facility]) Unknown [address] [address] 01/16/2021 12:00:00 AM EDT [facility]CW1 [facility] Unknown [address] [address] 01/09/2021 12:00:00 AM EDT eCW1 ([facility]) Unknown [address] [address] 01/08/2021 12:00:00 AM EDT eCW1 ([facility]) Outpatient [address] [address] 01/01/2021 12:00:00 AM EDT eCW1 ([facility]) Unknown [address] [address] 12/25/2020 12:00:00 AM EDT eCW1 ([facility]) Unknown [address] [address] 12/24/2020 12:00:00 AM EDT eCW1 ([facility]) Office Visit Attender: Tarah Meneses/ Leonardo sullivan 12/05/2020 10:30:00 AM EDT [facility] ([facility]) Unknown [address] [address] 11/29/2020 12:00:00 AM EDT eCW1 ([facility]) Outpatient [address] [place] [address] 11/28/2020 12:00:00 AM EDT eCW1 ([facility]) 11/24/2020 01:00:00 AM EDT - 021 11:47:23 PM EDT [facility] ([facility]) Inpatient Attender: LORENA RITTER MD 11/13/2020 12:03:14 PM EDT [facility] Inpatient Attender: Krista Kitchen MDAdmitter: Krista Kitchen MD 11/13/2020 10:43:00 AM EDT - 11/22/2020 02:37:00 PM EDT 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 ( in Healthcare facility) Attender: Krista Sesay MDAdmitter: Krista Kitchen MDConsultant: ISIDORO WARD 11/13/2020 10:43:00 AM EDT [facility] Inpatient Attender: Krista Kitchen MD 11/13/2020 10:43:00 AM EDT [facility] Unknown [address] [place] [address] 11/09/2020 12:00:00 AM EDT eCW1 ([facility]) Unknown [address] [address] 11/08/2020 12:00:00 AM EDT eCW1 ([facility]) Outpatient [address] [place] [address] 11/07/2020 12:00:00 AM EDT eCW1 ([facility]) Outpatient Attender: LORENA RITTER MD 11/06/2020 01:09:23 PM EDT [facility] Outpatient Attender: Krista Kitchen MD 11/06/2020 11:56:00 A M EDT ROBOTIC XI ASSISTED LAPAROSCOPIC CYSTOPROSTATECTOMY ILEOCOND [facility] ROBOTIC XI ASSISTED LAPAROSCOPIC CYSTOPR OSTATECTOMY ILEOCOND Unknown [address] [address] 09/11/2020 12:00:00 AM EDT eCW1 ([facility]) Outpatient Attender: Krista Meneses/ A.M.P. Urology 09/10 04:00:00 PM EDT [facility] ([facility]) Outpatient Attender: MAR Meneses/ A.M.P. Urol ogy 08/03/2020 01:30:00 PM EST [facility] ([facility]) Outpatient Attender: Kalia Saxena RPA [place]/ A.M.P. Urolo gy 07/20/2020 01:15:00 PM EST [facility] ([facility]) Outpatient Attender: Kalia Youngida/ A.M.P. Urolo gy 05/30/2020 01:00:00 PM EST [facility] ([facility] Outpatient [address] [address] 05/18/2020 12:00:00 AM EST eCW1 ([facility]) Outpatient [address] [address] 05/11/2020 12:00:00 AM EST eCW1 ([facility]) Outpatient [address] [address] 05/08/2020 12:00:00 AM EST eCW1 ([facility]) Outpatient Attender: Krista Meneses/ A.M.P. Urology 04/20 07:30:00 AM EST [facility] ([facility] [place] [address] [address] 03/27/2020 12:00:00 AM EDT eCW1 ([facility]) Outpatient Attender: MAR Meneses/ Asha.MGwenP. Urol ogy 03/22/2020 11:00:00 AM EDT [facility] ([facility]) Outpatient Attender: Kalia Saxena RPA [place]/ A.M.P. Urolo gy 03/20/2020 03:00:00 PM EDT [facility] ([facility]) Outpatient Attender: Kalia Youngida/ A.M.P. Urolo gy 03/16/2020 02:45:00 PM EDT [facility] ([facility]) Outpatient Referrer: MAR CASTANEDA MD MOB-MOB.PAT 11:08:19 AM EDT - 02/26/2020 11:08:37 [facility] CASTAN[facility]A MD Admitter: MAR CASTANEDA MDReferrer: MAR CASTANEDA MD [facility] 01/19/2020 10:10:55 AM EDT - 03/02/2020 01:04:00 PM EDT [facility] Patient discharged. Immunizations Vaccine Date Status Description Data Source(s) Pfizer #3 dose COVID-19 SARSCOV2 VAC 30MCG/0.3ML IM 03/14/20 06:15:00 AM EDT completed eCW1 ([facility]) COVID-19 VACC, MRNA(PFIZER)/PF 03/14/2021 12:00:00 AM EDT completed [facility] COVID-19 VACCINE Pfizer 03/14/2021 12:00:00 AM EDT completed [facility] Vaccine Series Complete: YESThis Data wa s Submitted to [facility] Via [employer]. IIV3. This is one of two codes replacing CVX 15, which is being retired. 02/26/2021 06:37:00 AM EDT completed eCW1 ([facility]) IIV3. This is one of two codes replacing CVX 15, which is being retired. 02/26/2021 06:37:00 AM EDT completed eCW1 ([facility]) IIV3. This is one of two codes replacing CVX 15, which is being retired. 02/26/2021 06:37:00 AM EDT completed eCW1 ([facility]) IIV3. This is one of two codes replacing CVX 15, which is being retired. 02/26/2021 06:37:00 AM EDT completed eCW1 ([facility]) IIV3. This is one of two codes replacing CVX 15, which is being retired. 02/26/2021 06:37:00 AM EDT completed eCW1 ([facility]) IIV3. This is one of two codes replacing CVX 15, which is being retired. 02/26/2021 06:37:00 AM EDT completed eCW1 ([facility]) COVID-19 dose #2 given elsewhere Unspecified 07/29/2020 06:0 7:00 AM EST completed eCW1 ([facility]) COVID-19 dose #2 given elsewhere Unspecified 07/29/2020 06:0 7:00 AM EST completed eCW1 ([facility]) COVID-19 dose #2 given elsewhere Unspecified 07/29/2020 06:0 7:00 AM EST completed eCW1 ([facility]) COVID-19 dose #2 given elsewhere Unspecified 07/29/2020 06:0 7:00 AM EST completed eCW1 ([facility]) COVID-19 dose #2 given elsewhere Unspecified 07/29/2020 06:0 7:00 AM EST completed eCW1 ([facility]) COVID-19 dose #2 given elsewhere Unspecified 07/29/2020 06:0 7:00 AM EST completed eCW1 ([facility]) COVID-19 dose #2 given elsewhere Unspecified 07/29/2020 06:0 7:00 AM EST completed eCW1 ([facility]) COVID-19 dose #2 given elsewhere Unspecified 07/29/2020 06:0 7:00 AM EST completed eCW1 ([facility]) COVID-19 dose #2 given elsewhere Unspecified 07/29/2020 06:0 7:00 AM EST completed eCW1 ([facility]) COVID-19 dose #2 given elsewhere Unspecified 07/29/2020 06:0 7:00 AM EST completed eCW1 ([facility]) COVID-19 dose #2 given elsewhere Unspecified 07/29/2020 06:0 7:00 AM EST completed eCW1 ([facility]) COVID-19 dose #2 given elsewhere Unspecified 07/29/2020 06:0 7:00 AM EST completed eCW1 ([facility]) COVID-19 dose #2 given elsewhere Unspecified 07/29/2020 06:0 7:00 AM EST completed eCW1 ([facility]) COVID-19 dose #2 given elsewhere Unspecified 07/29/2020 06:0 7:00 AM EST completed eCW1 ([facility]) COVID-19 dose #2 given elsewhere Unspecified 07/29/2020 06:0 7:00 AM EST completed eCW1 ([facility]) COVID-19 dose #2 given elsewhere Unspecified 07/29/2020 06:0 7:00 AM EST completed eCW1 ([facility]) COVID-19 dose #2 given elsewhere Unspecified 07/29/2020 06:0 7:00 AM EST completed eCW1 ([facility]) COVID-19 dose #2 given elsewhere Unspecified 07/29/2020 06:0 7:00 AM EST completed eCW1 ([facility]) COVID-19 dose #2 given elsewhere Unspecified 07/29/2020 06:0 7:00 AM EST completed eCW1 ([facility]) COVID-19 dose #2 given elsewhere Unspecified 07/29/2020 06:0 7:00 AM EST completed eCW1 ([facility]) COVID-19 dose #2 given elsewhere Unspecified 07/29/2020 06:0 7:00 AM EST completed eCW1 ([facility]) COVID-19 dose #2 given elsewhere Unspecified 07/29/2020 06:0 7:00 AM EST completed eCW1 ([facility]) COVID-19 (Pfizer), mRNA, LNP-S, PF, 30 mcg/0.3 mL dose 07/29/2020 12:00:00 AM EST completed [facility] COVID-19 VACCINE Pfizer 07/29/2020 12:00:00 AM EST completed [facility] Vaccine Series Complete: YESThis Data wa s Submitted to [facility] Via [employer]. Pfizer Covid-19 Sars-Cov-2, mRNA, LNP-S, PF, 30 mcg/ 0 .3 mL 07/28/2020 11:00:00 PM EST completed [facility] ([facility]) COVID-19 dose #1 given elsewhere Unspecified 07/08/2020 06:0 7:00 AM EST completed eCW1 ([facility]) COVID-19 dose #1 given elsewhere Unspecified 07/08/2020 06:0 7:00 AM EST completed eCW1 ([facility]) COVID-19 dose #1 given elsewhere Unspecified 07/08/2020 06:0 7:00 AM EST completed eCW1 ([facility]) COVID-19 dose #1 given elsewhere Unspecified 07/08/2020 06:0 7:00 AM EST completed eCW1 ([facility]) COVID-19 dose #1 given elsewhere Unspecified 07/08/2020 06:0 7:00 AM EST completed eCW1 ([facility]) COVID-19 dose #1 given elsewhere Unspecified 07/08/2020 06:0 7:00 AM EST completed eCW1 ([facility]) COVID-19 dose #1 given elsewhere Unspecified 07/08/2020 06:0 7:00 AM EST completed eCW1 ([facility]) COVID-19 dose #1 given elsewhere Unspecified 07/08/2020 06:0 7:00 AM EST completed eCW1 ([facility]) COVID-19 dose #1 given elsewhere Unspecified 07/08/2020 06:0 7:00 AM EST completed eCW1 ([facility]) COVID-19 dose #1 given elsewhere Unspecified 07/08/2020 06:0 7:00 AM EST completed eCW1 ([facility]) COVID-19 dose #1 given elsewhere Unspecified 07/08/2020 06:0 7:00 AM EST completed eCW1 ([facility]) COVID-19 dose #1 given elsewhere Unspecified 07/08/2020 06:0 7:00 AM EST completed eCW1 ([facility]) COVID-19 dose #1 given elsewhere Unspecified 07/08/2020 06:0 7:00 AM EST completed eCW1 ([facility]) COVID-19 dose #1 given elsewhere Unspecified 07/08/2020 06:0 7:00 AM EST completed eCW1 ([facility]) COVID-19 dose #1 given elsewhere Unspecified 07/08/2020 06:0 7:00 AM EST completed eCW1 ([facility]) COVID-19 dose #1 given elsewhere Unspecified 07/08/2020 06:0 7:00 AM EST completed eCW1 ([facility]) COVID-19 dose #1 given elsewhere Unspecified 07/08/2020 06:0 7:00 AM EST completed eCW1 ([facility]) COVID-19 dose #1 given elsewhere Unspecified 07/08/2020 06:0 7:00 AM EST completed eCW1 ([facility]) COVID-19 dose #1 given elsewhere Unspecified 07/08/2020 06:0 7:00 AM EST completed eCW1 ([facility]) COVID-19 dose #1 given elsewhere Unspecified 07/08/2020 06:0 7:00 AM EST completed eCW1 ([facility]) COVID-19 dose #1 given elsewhere Unspecified 07/08/2020 06:0 7:00 AM EST completed eCW1 ([facility]) COVID-19 dose #1 given elsewhere Unspecified 07/08/2020 06:0 7:00 AM EST completed eCW1 ([facility]) COVID-19 (Pfizer), mRNA, LNP-S, PF, 30 mcg/0.3 mL dose 07/08/2020 12:00:00 AM EST completed [facility] COVID-19 VACCINE Pfizer 07/08/2020 12:00:00 AM EST completed [facility] Vaccine Series Complete: NOThis Data was Submitted to [facility] Via [employer]. Pfizer Covid-19 Sars-Cov-2, mRNA, LNP-S, PF, 30 mcg/ 0 .3 mL 07/07/2020 11:00:00 PM EST completed [facility] ([facility]) IIV3. This is one of two codes replacing CVX 15, which is being retired. 03/08/2020 06:06:00 AM EDT completed eCW1 ([facility]) IIV3. This is one of two codes replacing CVX 15, which is being retired. 03/08/2020 06:06:00 AM EDT completed eCW1 ([facility]) IIV3. This is one of two codes replacing CVX 15, which is being retired. 03/08/2020 06:06:00 AM EDT completed eCW1 ([facility]) IIV3. This is one of two codes replacing CVX 15, which is being retired. 03/08/2020 06:06:00 AM EDT completed eCW1 ([facility]) IIV3. This is one of two codes replacing CVX 15, which is being retired. 03/08/2020 06:06:00 AM EDT completed eCW1 ([facility]) IIV3. This is one of two codes replacing CVX 15, which is being retired. 03/08/2020 06:06:00 AM EDT completed eCW1 ([facility]) IIV3. This is one of two codes replacing CVX 15, which is being retired. 03/08/2020 06:06:00 AM EDT completed eCW1 ([facility]) IIV3. This is one of two codes replacing CVX 15, which is being retired. 03/08/2020 06:06:00 AM EDT completed eCW1 ([facility]) IIV3. This is one of two codes replacing CVX 15, which is being retired. 03/08/2020 06:06:00 AM EDT completed eCW1 ([facility]) IIV3. This is one of two codes replacing CVX 15, which is being retired. 03/08/2020 06:06:00 AM EDT completed eCW1 ([facility]) IIV3. This is one of two codes replacing CVX 15, which is being retired. 03/08/2020 06:06:00 AM EDT completed eCW1 ([facility]) IIV3. This is one of two codes replacing CVX 15, which is being retired. 03/08/2020 06:06:00 AM EDT completed eCW1 ([facility]) IIV3. This is one of two codes replacing CVX 15, which is being retired. 03/08/2020 06:06:00 AM EDT completed eCW1 ([facility]) IIV3. This is one of two codes replacing CVX 15, which is being retired. 03/08/2020 06:06:00 AM EDT completed eCW1 ([facility]) IIV3. This is one of two codes replacing CVX 15, which is being retired. 03/08/2020 06:06:00 AM EDT completed eCW1 ([facility]) IIV3. This is one of two codes replacing CVX 15, which is being retired. 03/08/2020 06:06:00 AM EDT completed eCW1 ([facility]) IIV3. This is one of two codes replacing CVX 15, which is being retired. 03/08/2020 06:06:00 AM EDT completed eCW1 ([facility]) IIV3. This is one of two codes replacing CVX 15, which is being retired. 03/08/2020 06:06:00 AM EDT completed eCW1 ([facility]) IIV3. This is one of two codes replacing CVX 15, which is being retired. 03/08/2020 06:06:00 AM EDT completed eCW1 ([facility]) IIV3. This is one of two codes replacing CVX 15, which is being retired. 03/08/2020 06:06:00 AM EDT completed eCW1 ([facility]) IIV3. This is one of two codes replacing CVX 15, which is being retired. 03/08/2020 06:06:00 AM EDT completed eCW1 ([facility]) IIV3. This is one of two codes replacing CVX 15, which is being retired. 03/08/2020 06:06:00 AM EDT completed eCW1 ([facility]) INFLUENZA VIRUS VACCINE QUADRIVAL SPLIT 2019-(65 YR UP)/PF 03/08/2020 12:00:00 AM EDT completed [facility] Medication Brand Name Start Date Product Form Dose Route Admi nistrative Instructions Pharmacy Instructions Status Indications Reaction Description Data Source(s) 50 mg 04/03/2021 12:00:00 AM EDT tablet 45 TAKE 1/2 TABLET BY MOUTH ONCE A DAY TAKE 1/2 TABLET BY MOUTH ONCE A DAY SOLD: 04/07/2021 [facility] 40 mg 03/06/2021 12:00:00 AM EDT tablet 90 TAKE ONE TABLET BY MOUTH EVERY DAY TAKE ONE TABLET BY MOUTH EVERY DAY SOLD: 03/07/2021 [facility] 10 mg 03/06/2021 12:00:00 AM EDT tablet 120 TAKE ONE TABLET BY MOUTH EVERY 4 HOURS NEEDED FOR ITCHING TAKE ONE TABLET BY MOUTH EVERY 4 HOURS A S NEEDED FOR ITCHING SOLD: 04/02/2021 [facility] 10 mg 03/06/2021 12:00:00 AM EDT tablet 120 TAKE ONE TABLET BY MOUTH EVERY 4 HOURS NEEDED FOR ITCHING TAKE ONE TABLET BY MOUTH EVERY 4 HOURS A S NEEDED FOR ITCHING SOLD: 03/07/2021 [facility] 25 mg 03/06/2021 12:00:00 AM EDT tablet 180 TAKE ONE TABLET BY MOUTH TWICE A DAY TAKE ONE TABLET BY MOUTH TWICE A DAY SOLD: 03/07/2021 [facility] Abdominal Binder/Elastic 3XL - Abdominal Binder/Elastic 3XL - 03/05/2021 12:00:00 AM EDT active Abdomina l Binder/Elastic 3XL - eCW1 ([facility]) Abdominal Binder/Elastic 3XL - Abdominal Binder/Elastic 3XL - 03/05/2021 12:00:00 AM EDT active Abdomina l Binder/Elastic 3XL - eCW1 ([facility]) Abdominal Binder/Elastic 3XL - Abdominal Binder/Elastic 3XL - 03/05/2021 12:00:00 AM EDT active Abdomina l Binder/Elastic 3XL - eCW1 ([facility]) Abdominal Binder/Elastic 3XL - Abdominal Binder/Elastic 3XL - 03/05/2021 12:00:00 AM EDT active Abdomina l Binder/Elastic 3XL - eCW1 ([facility]) Abdominal Binder/Elastic 3XL - Abdominal Binder/Elastic 3XL - 03/05/2021 12:00:00 AM EDT active Abdomina l Binder/Elastic 3XL - eCW1 ([facility]) Abdominal Binder/Elastic 3XL - Abdominal Binder/Elastic 3XL - 03/05/2021 12:00:00 AM EDT active Abdomina l Binder/Elastic 3XL - eCW1 ([facility]) 4 mg 02/28/2021 12:00:00 AM EDT tablets,dose pack 21 FOLLOW PACKAGE DIRECTIONS FOLLOW PACKAGE DIRECTIONS SOLD: 02/28/2021 [facility] 240 mcg/0.7 mL 02/26/2021 12:00:00 AM EDT syringe 0 INJECT DIRECTED INJECT DIRECTED SOLD: 02/26/2021 [facility] 3 gram 01/31/2021 12:00:00 AM EDT packet 2 TAKE 1 PACKET BY MOUTH EVERY 72 HOURS TAKE 1 PACKET BY MOUTH EVERY 72 HOURS SOLD: 01/31/2021 [facility] 500 mg 01/20/2021 12:00:00 AM EDT tablet extended release 24 hr 180 TAKE TWO TABLETS BY MOUTH EVERY DAY WITH EVENING MEAL TAKE TWO TABLETS BY MOUTH EVERY DAY WITH EVENING MEAL SOLD: 01/22/2021 [facility] 10 mg 01/09/2021 12:00:00 AM EDT tablet 60 TAKE ONE TABLET BY MOUTH EVERY 4 HOURS NEEDED FOR ITCHING TAKE ONE TABLET BY MOUTH EVERY 4 HOURS A S NEEDED FOR ITCHING SOLD: 01/09/2021 [facility] 10 mg 01/09/2021 12:00:00 AM EDT tablet 60 TAKE ONE TABLET BY MOUTH EVERY 4 HOURS NEEDED FOR ITCHING TAKE ONE TABLET BY MOUTH EVERY 4 HOURS A S NEEDED FOR ITCHING SOLD: 01/29/2021 [facility] 10 mg 01/09/2021 12:00:00 AM EDT tablet 60 TAKE ONE TABLET BY MOUTH EVERY 4 HOURS NEEDED FOR ITCHING TAKE ONE TABLET BY MOUTH EVERY 4 HOURS A S NEEDED FOR ITCHING SOLD: 02/13/2021 [facility] HydrOXYzine HCl 10 MG HydrOXYzine HCl 01/08/2021 01:00:00 AM EDT completed NETSMART ([facility]) Hydroxyzine Hydrochloride 10 MG Oral Tablet hydrOXYzin e HCl 10 MG hydrOXYzine HCl 10 MG 01/08/2021 12:00:00 AM EDT 1.0 {tablet} ac tive hydrOXYzine HCl 10 MG eCW1 ([facility]) Hydroxyzine Hydrochloride 10 MG Oral Tablet hydrOXYzin e HCl 10 MG hydrOXYzine HCl 10 MG 01/08/2021 12:00:00 AM EDT 1.0 {tablet} ac tive hydrOXYzine HCl 10 MG eCW1 ([facility]) Hydroxyzine Hydrochloride 10 MG Oral Tablet hydrOXYzin e HCl 10 MG hydrOXYzine HCl 10 MG 01/08/2021 12:00:00 AM EDT 1.0 {tablet} ac tive hydrOXYzine HCl 10 MG eCW1 ([facility]) Hydroxyzine Hydrochloride 10 MG Oral Tablet hydrOXYzin e HCl 10 MG hydrOXYzine HCl 10 MG 01/08/2021 12:00:00 AM EDT 1.0 {tablet} ac tive hydrOXYzine HCl 10 MG eCW1 ([facility]) Hydroxyzine Hydrochloride 10 MG Oral Tablet hydrOXYzin e HCl 10 MG hydrOXYzine HCl 10 MG 01/08/2021 12:00:00 AM EDT 1.0 {tablet} ac tive hydrOXYzine HCl 10 MG eCW1 ([facility]) Hydroxyzine Hydrochloride 10 MG Oral Tablet hydrOXYzin e HCl 10 MG hydrOXYzine HCl 10 MG 01/08/2021 12:00:00 AM EDT 1.0 {tablet} ac tive hydrOXYzine HCl 10 MG eCW1 ([facility]) Hydroxyzine Hydrochloride 10 MG Oral Tablet hydrOXYzin e HCl 10 MG hydrOXYzine HCl 10 MG 01/08/2021 12:00:00 AM EDT 1.0 {tablet} ac tive hydrOXYzine HCl 10 MG eCW1 ([facility]) Hydroxyzine Hydrochloride 10 MG Oral Tablet hydrOXYzin e HCl 10 MG hydrOXYzine HCl 10 MG 01/08/2021 12:00:00 AM EDT 1.0 {tablet} ac tive hydrOXYzine HCl 10 MG eCW1 ([facility]) Hydroxyzine Hydrochloride 10 MG Oral Tablet hydrOXYzin e HCl 10 MG hydrOXYzine HCl 10 MG 01/08/2021 12:00:00 AM EDT 1.0 {tablet} ac tive hydrOXYzine HCl 10 MG eCW1 ([facility]) Hydroxyzine Hydrochloride 10 MG Oral Tablet hydrOXYzin e HCl 10 MG hydrOXYzine HCl 10 MG 01/08/2021 12:00:00 AM EDT 1.0 {tablet} ac tive hydrOXYzine HCl 10 MG eCW1 ([facility]) Hydroxyzine Hydrochloride 10 MG Oral Tablet hydrOXYzin e HCl 10 MG hydrOXYzine HCl 10 MG 01/08/2021 12:00:00 AM EDT 1.0 {tablet} ac tive hydrOXYzine HCl 10 MG eCW1 ([facility]) Hydroxyzine Hydrochloride 10 MG Oral Tablet hydrOXYzin e HCl 10 MG hydrOXYzine HCl 10 MG 01/08/2021 12:00:00 AM EDT 1.0 {tablet} ac tive hydrOXYzine HCl 10 MG eCW1 ([facility]) Hydroxyzine Hydrochloride 10 MG Oral Tablet hydrOXYzin e HCl 10 MG hydrOXYzine HCl 10 MG 01/08/2021 12:00:00 AM EDT 1.0 {tablet} ac tive hydrOXYzine HCl 10 MG eCW1 ([facility]) Hydroxyzine Hydrochloride 10 MG Oral Tablet hydrOXYzin e HCl 10 MG hydrOXYzine HCl 10 MG 01/08/2021 12:00:00 AM EDT 1.0 {tablet} ac tive hydrOXYzine HCl 10 MG eCW1 ([facility]) Hydroxyzine Hydrochloride 10 MG Oral Tablet hydrOXYzin e HCl 10 MG hydrOXYzine HCl 10 MG 01/08/2021 12:00:00 AM EDT 1.0 {tablet} ac tive hydrOXYzine HCl 10 MG eCW1 ([facility]) Losartan Potassium 100 MG Losartan Potassium 01/07/2021 01:00:00 AM EDT completed NETSMART ([facility]) Spironolactone 25 MG Spironolactone 01/07/2021 01:00:00 AM EDT completed NETSMART ([facility]) 20 mg 01/02/2021 12:00:00 AM EDT tablet 90 TAKE ONE TABLET BY MOUTH EVERY DAY TAKE ONE TABLET BY MOUTH EVERY DAY SOLD: 01/02/2021 [facility] 325 mg (65 mg iron) 01/02/2021 12:00:00 AM EDT tablet 40 TAKE ONE TABLET BY MOUTH EVERY THURSDAY/THURSDAY/THURSDAY TAKE ONE TABLET BY MOUTH EVERY THURSDAY/THURSDAY SOLD: 01/02/2021 [facility] 25 mg 01/02/2021 12:00:00 AM EDT tablet 90 TAKE ONE TABLET BY MOUTH EVERY DAY TAKE ONE TABLET BY MOUTH EVERY DAY SOLD: 01/02/2021 [facility] 100 mg 01/02/2021 12:00:00 AM EDT tablet 90 TAKE ONE TABLET BY MOUTH EVERY DAY TAKE ONE TABLET BY MOUTH EVERY DAY SOLD: 01/02/2021 [facility] Spironolactone 25 MG Oral Tablet Spironolactone 25 MG 2020 12:00:00 AM EDT 1.0 {tablet} active Spironolact one 25 MG eCW1 ([facility]) Spironolactone 25 MG Oral Tablet Spironolactone 25 MG 2020 12:00:00 AM EDT 1.0 {tablet} active Spironolact one 25 MG eCW1 ([facility]) Losartan Potassium 50 MG Oral Tablet Losartan Potassium 50 M G 01/01/2021 12:00:00 AM EDT active Losartan Potassium 50 MG eCW1 ([facility]) Spironolactone 25 MG Oral Tablet Spironolactone 25 MG 2020 12:00:00 AM EDT 1.0 {tablet} active Spironolact one 25 MG eCW1 ([facility]) Spironolactone 25 MG Oral Tablet Spironolactone 25 MG 2020 12:00:00 AM EDT 1.0 {tablet} active Spironolact one 25 MG eCW1 ([facility]) Losartan Potassium 100 MG Oral Tablet Losartan Potassium 100 MG 01/01/2021 12:00:00 AM EDT 1.0 {tablet} active Lo sartan Potassium 100 MG eCW1 ([facility]) Losartan Potassium 100 MG Oral Tablet Losartan Potassium 100 MG 01/01/2021 12:00:00 AM EDT 1.0 {tablet} active Lo sartan Potassium 100 MG eCW1 ([facility]) Spironolactone 25 MG Oral Tablet Spironolactone 25 MG 2020 12:00:00 AM EDT 1.0 {tablet} active Spironolact one 25 MG eCW1 ([facility]) Spironolactone 25 MG Oral Tablet Spironolactone 25 MG 2020 12:00:00 AM EDT 1.0 {tablet} active Spironolact one 25 MG eCW1 ([facility]) Spironolactone 25 MG Oral Tablet Spironolactone 25 MG 2020 12:00:00 AM EDT 1.0 {tablet} active Spironolact one 25 MG eCW1 ([facility]) Losartan Potassium 100 MG Oral Tablet Losartan Potassium 100 MG 01/01/2021 12:00:00 AM EDT 1.0 {tablet} active Lo sartan Potassium 100 MG eCW1 ([facility]) Losartan Potassium 100 MG Oral Tablet Losartan Potassium 100 MG 01/01/2021 12:00:00 AM EDT 1.0 {tablet} active Lo sartan Potassium 100 MG eCW1 ([facility]) Losartan Potassium 100 MG Oral Tablet Losartan Potassium 100 MG 01/01/2021 12:00:00 AM EDT 1.0 {tablet} active Lo sartan Potassium 100 MG eCW1 ([facility]) Losartan Potassium 100 MG Oral Tablet Losartan Potassium 100 MG 01/01/2021 12:00:00 AM EDT 1.0 {tablet} active Lo sartan Potassium 100 MG eCW1 ([facility]) Losartan Potassium 100 MG Oral Tablet Losartan Potassium 100 MG 01/01/2021 12:00:00 AM EDT 1.0 {tablet} active Lo sartan Potassium 100 MG eCW1 ([facility]) Losartan Potassium 100 MG Oral Tablet Losartan Potassium 100 MG 01/01/2021 12:00:00 AM EDT 1.0 {tablet} active Lo sartan Potassium 100 MG eCW1 ([facility]) Spironolactone 25 MG Oral Tablet Spironolactone 25 MG 2020 12:00:00 AM EDT 1.0 {tablet} active Spironolact one 25 MG eCW1 ([facility]) Losartan Potassium 100 MG Oral Tablet Losartan Potassium 100 MG 01/01/2021 12:00:00 AM EDT 1.0 {tablet} active Lo sartan Potassium 100 MG eCW1 ([facility]) Losartan Potassium 100 MG Oral Tablet Losartan Potassium 100 MG 01/01/2021 12:00:00 AM EDT 1.0 {tablet} active Lo sartan Potassium 100 MG eCW1 ([facility]) Spironolactone 25 MG Oral Tablet Spironolactone 25 MG 2020 12:00:00 AM EDT 1.0 {tablet} active Spironolact one 25 MG eCW1 ([facility]) Spironolactone 25 MG Oral Tablet Spironolactone 25 MG 2020 12:00:00 AM EDT 1.0 {tablet} active Spironolact one 25 MG eCW1 ([facility]) Losartan Potassium 100 MG Oral Tablet Losartan Potassium 100 MG 01/01/2021 12:00:00 AM EDT 1.0 {tablet} active Lo sartan Potassium 100 MG eCW1 ([facility]) Losartan Potassium 100 MG Oral Tablet Losartan Potassium 100 MG 01/01/2021 12:00:00 AM EDT 1.0 {tablet} active Lo sartan Potassium 100 MG eCW1 ([facility]) Losartan Potassium 100 MG Oral Tablet Losartan Potassium 100 MG 01/01/2021 12:00:00 AM EDT 1.0 {tablet} active Lo sartan Potassium 100 MG eCW1 ([facility]) Spironolactone 25 MG Oral Tablet Spironolactone 25 MG 2020 12:00:00 AM EDT 1.0 {tablet} active Spironolact one 25 MG eCW1 ([facility]) Losartan Potassium 100 MG Oral Tablet Losartan Potassium 100 MG 01/01/2021 12:00:00 AM EDT 1.0 {tablet} active Lo sartan Potassium 100 MG eCW1 ([facility]) Spironolactone 25 MG Oral Tablet Spironolactone 25 MG 2020 12:00:00 AM EDT 1.0 {tablet} active Spironolact one 25 MG eCW1 ([facility]) Spironolactone 25 MG Oral Tablet Spironolactone 25 MG 2020 12:00:00 AM EDT 1.0 {tablet} active Spironolact one 25 MG eCW1 ([facility]) Spironolactone 25 MG Oral Tablet Spironolactone 25 MG 2020 12:00:00 AM EDT 1.0 {tablet} active Spironolact one 25 MG eCW1 ([facility]) Spironolactone 25 MG Oral Tablet Spironolactone 25 MG 2020 12:00:00 AM EDT 1.0 {tablet} active Spironolact one 25 MG eCW1 ([facility]) Colace 100 MG Colace 12/31/2020 01:00:00 AM EDT co mpleted NETSMART ([facility]) Potassium Chloride Potassium Chloride 12/31/2020 01:00:00 AM EDT 15.0 {mEq} completed NETSMART ([facility]) 15 mEq 12/25/2020 12:00:00 AM EDT tablet,ER particles/cry stals 10 TAKE ONE TABLET BY MOUTH EVERY DAY DIRECTED TAKE ONE TABLET BY MOUTH EVERY DAY DIRECTED SOLD: 12/25/2020 [facility] Lasix 20 MG Lasix 12/24/2020 01:00:00 AM EDT compl eted NETSMART ([facility]) Furosemide 20 MG Oral Tablet [Lasix] Lasix 20 MG Lasix 20 MG 12/24/2020 12:00:00 AM EDT 1.0 {tablet} active Lasix 20 M G eCW1 ([facility]) Furosemide 40 MG Oral Tablet [Lasix] Lasix 40 MG Lasix 40 MG 12/24/2020 12:00:00 AM EDT 1.0 {tablet} active Lasix 40 M G eCW1 ([facility]) Furosemide 40 MG Oral Tablet [Lasix] Lasix 40 MG Lasix 40 MG 12/24/2020 12:00:00 AM EDT 1.0 {tablet} active Lasix 40 M G eCW1 ([facility]) Furosemide 20 MG Oral Tablet [Lasix] Lasix 20 MG Lasix 20 MG 12/24/2020 12:00:00 AM EDT 1.0 {tablet} active Lasix 20 M G eCW1 ([facility]) Furosemide 20 MG Oral Tablet [Lasix] Lasix 20 MG Lasix 20 MG 12/24/2020 12:00:00 AM EDT 1.0 {tablet} active Lasix 20 M G eCW1 ([facility]) Furosemide 20 MG Oral Tablet [Lasix] Lasix 20 MG Lasix 20 MG 12/24/2020 12:00:00 AM EDT 1.0 {tablet} active Lasix 20 M G eCW1 ([facility]) Furosemide 20 MG Oral Tablet [Lasix] Lasix 20 MG Lasix 20 MG 12/24/2020 12:00:00 AM EDT 1.0 {tablet} active Lasix 20 M G eCW1 ([facility]) Furosemide 40 MG Oral Tablet [Lasix] Lasix 40 MG Lasix 40 MG 12/24/2020 12:00:00 AM EDT 1.0 {tablet} active Lasix 40 M G eCW1 ([facility]) Furosemide 20 MG Oral Tablet [Lasix] Lasix 20 MG Lasix 20 MG 12/24/2020 12:00:00 AM EDT 1.0 {tablet} active Lasix 20 M G eCW1 ([facility]) Furosemide 20 MG Oral Tablet [Lasix] Lasix 20 MG Lasix 20 MG 12/24/2020 12:00:00 AM EDT 1.0 {tablet} active Lasix 20 M G eCW1 ([facility]) Furosemide 40 MG Oral Tablet [Lasix] Lasix 40 MG Lasix 40 MG 12/24/2020 12:00:00 AM EDT 1.0 {tablet} active Lasix 40 M G eCW1 ([facility]) Furosemide 20 MG Oral Tablet [Lasix] Lasix 20 MG Lasix 20 MG 12/24/2020 12:00:00 AM EDT 1.0 {tablet} active Lasix 20 M G eCW1 ([facility]) Potassium Chloride CR 15 MEQ UNK 12/24/2020 12:00:00 AM EDT active Potassium Chloride CR 15 MEQ eCW1 ([facility]) Furosemide 40 MG Oral Tablet [Lasix] Lasix 40 MG Lasix 40 MG 12/24/2020 12:00:00 AM EDT 1.0 {tablet} active Lasix 40 M G eCW1 ([facility]) Potassium Chloride CR 15 MEQ UNK 12/24/2020 12:00:00 AM EDT active Potassium Chloride CR 15 MEQ eCW1 ([facility]) Furosemide 20 MG Oral Tablet [Lasix] Lasix 20 MG Lasix 20 MG 12/24/2020 12:00:00 AM EDT 1.0 {tablet} active Lasix 20 M G eCW1 ([facility]) Furosemide 20 MG Oral Tablet [Lasix] Lasix 20 MG Lasix 20 MG 12/24/2020 12:00:00 AM EDT 1.0 {tablet} active Lasix 20 M G eCW1 ([facility]) Furosemide 20 MG Oral Tablet [Lasix] Lasix 20 MG Lasix 20 MG 12/24/2020 12:00:00 AM EDT 1.0 {tablet} active Lasix 20 M G eCW1 ([facility]) Furosemide 40 MG Oral Tablet [Lasix] Lasix 40 MG Lasix 40 MG 12/24/2020 12:00:00 AM EDT 1.0 {tablet} active Lasix 40 M G eCW1 ([facility]) 20 mg 12/24/2020 12:00:00 AM EDT tablet 10 TAKE ONE TABLET BY MOUTH EVERY DAY TAKE ONE TABLET BY MOUTH EVERY DAY SOLD: 12/24/2020 [facility] 5 mg 12/07/2020 12:00:00 AM EDT tablet 7 TAKE ONE TABLET BY MOUTH AT BEDTIME NEEDED FOR SEVER PAIN, MAXIMUM DAILY DOSE = 1 TAKE ONE TABLET BY MOUTH AT BEDTIME NEEDED FOR SEVER PAIN, MAXIMUM DAILY DOSE = 1 SOLD: 12/09/2020 [facility] Oxycodone Hydrochloride 5 MG Oral Capsule Oxycodone HCL 12/07/2020 12:00:00 AM EDT ORAL completed MEDENT ([facility]) Melatonin 10 MG Melatonin 11/30/2020 01:00:00 AM EDT completed NETSMART ([facility]) Ferrous Sulfate 325 (65 Fe) MG Ferrous Sulfate 11/30/2020 01:00:00 AM EDT completed NETSMART ([facility]) Lidocaine Pain Relieving 4 % Lidocaine Pain Relieving 2020 01:00:00 AM EDT completed NETSMAR T ([facility]) MetFORMIN HCl ER (MOD) 500 MG MetFORMIN HCl ER (MOD) 11/30/2020 01:00:00 AM EDT 2.0 {tablet} completed N ETSMART ([facility]) Lidocaine 0.05 MG/MG Topical Ointment LIDOCAINE 11/29/2020 12:00:00 AM EDT ointment 35 APPLY TO AFFECTED KNEE THREE TRELL ES A DAY NEEDED FOR PAIN APPLY TO AFFECTED KNEE THREE TIMES A DAY NEEDED FOR PAIN SOLD: 01/08/2021 [facility] Lidocaine 0.05 MG/MG Topical Ointment LIDOCAINE 11/29/2020 12:00:00 AM EDT ointment 35 APPLY TO AFFECTED KNEE THREE TRELL ES A DAY NEEDED FOR PAIN APPLY TO AFFECTED KNEE THREE TIMES A DAY NEEDED FOR PAIN SOLD: 11/29/2020 [facility] 50 mcg/actuation 11/29/2020 12:00:00 AM EDT spray,suspension 16 SPRAY 2 SPRAYS IN EACH NOSTRIL ONCE DAILY SPRAY 2 SPRAYS IN EACH NOSTRIL ONCE DAILY SOLD: 12/01/2020 [facility] Ciprofloxacin HCl 750 MG Ciprofloxacin HCl 11/24/2020 01:00:00 AM E DT 1.0 {tablet} completed NETSMART ([facility]) Ferrous Sulfate 324 MG Ferrous Sulfate 11/24/2020 01:00:00 AM EDT 1.0 {tablet} completed NETSMART ([facility]) FreeStyle [place] Lite w/Device FreeStyle [place] Lite 11/24 01:00:00 AM EDT completed NETSMAR T ([facility]) Lancets 28 G Lancets 28 G 11/24/2020 01:00:00 AM EDT completed NETSMART ([facility]) Losartan Potassium-HCTZ 100-12.5 MG Losartan Potassium-HCTZ 11/24/2020 01:00:00 AM EDT 1.0 {tablet} completed N ETSMART ([facility]) Colace 100 MG Colace 11/24/2020 01:00:00 AM EDT 1.0 {tablet} completed NETSMART ([facility]) MetFORMIN HCl 500 MG MetFORMIN HCl 11/24/2020 01:00:00 AM EDT 1.0 {tablet} completed NETSMART ([facility]) Tylenol Extra Strength 500 MG Tylenol Extra Strength 11/24/2020 01:00:00 AM EDT 0 {tablet} completed NET SMART ([facility]) Tylenol PM Tylenol PM 11/24/2020 01:00:00 AM EDT 1.0 {tablet} completed NETSMART ([facility]) Ciprofloxacin 750 MG Oral Tablet Ciprofloxacin HCl 750 MG Ciprofloxacin HCl 750 MG 11/22/2020 12:00:00 AM EDT 1.0 {tablet} activ e Ciprofloxacin HCl 750 MG eCW1 ([facility]) 750 mg 11/22/2020 12:00:00 AM EDT tablet 20 TAKE ONE TABLET BY MOUTH EVERY 12 HOURS TAKE ONE TABLET BY MOUTH EVERY 12 HOURS SOLD: 11/22/2020 [facility] BLOOD-GLUCOSE METER 2020 12:00:00 AM EDT kit 1 USE TO MONITOR BLOOD GLUCOSE 2 TIMES A DAY AND NEEDED USE TO MONITOR BLOOD GLUCOSE 2 TIMES A D AY AND NEEDED SOLD: 11/22/2020 [facility] BLOOD SUGAR DIAGNOSTIC 11/19/2020 12:00:00 AM EDT strip 100 USE TO CHECK FASTING BS TWO TIMES A DAY NEEDED MAXIMUM DAILY DOSE = 4 USE TO CHECK FASTING BS TWO TIMES A DAY NEEDED MAXIMUM DAILY DOSE = 4 SOLD: 2020 [facility] 28 gauge 11/19/2020 12:00:00 AM EDT misc 100 USE WITH METER TWO TIMES A DAY NEEDED USE WITH METER TWO TIMES A DAY NEEDED SOLD: 2020 [facility] WATER FOR IRRIGATION,STERILE 08/30/2020 12:00:00 AM EDT solu tion 2000 IRRIGATE CATHETER WHITH 60ML OF STERILE TWO TIMES A DAY IRRIGATE CATHETER WHITH 60ML OF STERILE TWO TIMES A DAY SOLD: 09/01/2020 [facility] WATER FOR IRRIGATION,STERILE 08/14/2020 12:00:00 AM EDT solu tion 2000 IRRIGATE CATHETER WITH 60CCS OF STERILE WATER TWICE A DAY IRRIGATE CATHETER WITH 60CCS OF STERILE WATER TWICE A DAY SOLD: 08/16/2020 [facility] WATER FOR IRRIGATION,STERILE 07/21/2020 12:00:00 AM EST lawrenceu tion 2000 IRRIGATE CATHETER WITH 60CCS OR STERILE WATER TWICE A DAY IRRIGATE CATHETER WITH 60CCS OR STERILE WATER TWICE A DAY SOLD: 07/24/2020 [facility] Water 1000 MG/ML Irrigation Solution Sterile Water Irrigatio n Plastic Bottle 07/20/2020 12:00:00 AM EST completed MEDENT ([facility]) 250 mg 06/04/2020 12:00:00 AM EST tablet 14 TAKE ONE TABLET BY MOUTH TWICE A DAY FOR 7 DAYS TAKE ONE TABLET BY MOUTH TWICE A DAY FOR 7 DAYS SOLD: 06/04/2020 [facility] Ciprofloxacin 250 MG Oral Tablet [Cipro] Cipro 06/04/2020 12:00: 00 AM EST ORAL completed MEDENT ([facility]) 24 HR Metformin hydrochloride 500 MG Extended Release Oral T ablet METFORMIN HCL 05/19/2020 12:00:00 AM EST tablet extended release 24 hr 180 TAKE 2 TABLETS BY MOUTH ONCE A DAY WITH EVENING MEAL TAKE 2 TABLETS BY MOUTH ONCE A DAY WITH EVENING MEAL SOLD: 11/16/2020 [facility] 500 mg 05/19/2020 12:00:00 AM EST tablet extended release 24 hr 180 TAKE 2 TABLETS BY MOUTH ONCE A DAY WITH EVENING MEAL TAKE 2 TABLETS BY MOUTH ONCE A DAY WITH EVENING MEAL SOLD: 05/21/2020 [facility] 500 mg 05/19/2020 12:00:00 AM EST tablet extended release 24 hr 180 TAKE 2 TABLETS BY MOUTH ONCE A DAY WITH EVENING MEAL TAKE 2 TABLETS BY MOUTH ONCE A DAY WITH EVENING MEAL SOLD: 08/19/2020 [facility] Hydrochlorothiazide 12.5 MG / Losartan Potassium 100 M G Oral Tablet 100-12.5 mg LOSARTAN/HYDROCHLOROTHIAZIDE 05/12/2020 12:00:00 AM EST tablet 90 TAKE ONE TABLET BY MOUTH EVERY DAY TAKE ONE TABLET BY MOUTH EVERY DAY SOLD: 11/16/2020 [facility] Hydrochlorothiazide 12.5 MG / Losartan Potassium 100 M G Oral Tablet 100-12.5 mg LOSARTAN POTASSIUM/HYDROCHLOROTHIAZIDE 05/12/2020 12:00:00 AM EST tablet 9 0 TAKE ONE TABLET BY MOUTH EVERY DAY TAKE ONE TABLET BY MOUTH EVERY DAY SOLD: 08/19/2020 [facility] Hydrochlorothiazide 12.5 MG / Losartan Potassium 100 M G Oral Tablet 100-12.5 mg LOSARTAN/HYDROCHLOROTHIAZIDE 05/12/2020 12:00:00 AM EST tablet 90 TAKE ONE TABLET BY MOUTH EVERY DAY TAKE ONE TABLET BY MOUTH EVERY DAY SOLD: 02/13/2021 [facility] Hydrochlorothiazide 12.5 MG / Losartan Potassium 100 M G Oral Tablet 100-12.5 mg LOSARTAN POTASSIUM/HYDROCHLOROTHIAZIDE 05/12/2020 12:00:00 AM EST tablet 9 0 TAKE ONE TABLET BY MOUTH EVERY DAY TAKE ONE TABLET BY MOUTH EVERY DAY SOLD: 05/21/2020 [facility] Sulfamethoxazole 800 MG / Trimethoprim 160 MG Oral Tab let 800-160 mg SULFAMETHOXAZOLE/TRIMETHOPRIM 03/20/2020 12:00:00 AM EDT tablet 14 TAKE ONE TABLET BY MOUTH TWICE A DAY FOR 7 DAYS TAKE ONE TABLET BY MOUTH TWICE A DAY FOR 7 DAYS SOLD: 03/20/2020 [facility] Sulfamethoxazole 800 MG / Trimethoprim 160 MG Oral Tablet [B actrim] Bactrim DS 03/20/2020 12:00:00 AM EDT ORAL completed MED[facility] ([facility]) 250 mg 02/24/2020 12:00:00 AM EDT tablet 10 TAKE ONE TABLET BY MOUTH TWICE A DAY FOR 5 DAYS START 3 DAYS PRIOR TO PROCEDURE TAKE ONE TABLET BY MOUTH TWICE A DAY FOR 5 DAYS START 3 DAYS PRIOR TO PROCEDURE SOLD: 02/26/2020 [facility] Ciprofloxacin 250 MG Oral Tablet Ciprofloxacin HCL 02/24/2020 12:00 :00 AM EDT ORAL completed [facility] ([facility]) NITROFURANTOIN, MACROCRYSTALS 25 MG / Ni trofurantoin, Monohydrate 75 MG Oral Capsule Nitrofurantoin Monohyd Macro 02/23/2020 12:00:00 AM EDT ORAL completed [facility] ([facility]) 100 mg 02/23/2020 12:00:00 AM EDT capsule 14 TAKE ONE CAPSULE BY MOUTH TWICE A DAY FOR 7 DAYS TAKE ONE CAPSULE BY MOUTH TWICE A DAY FOR 7 DAYS SOLD: 02/23/2020 [facility] 100 mg 06/24/2019 12:00:00 AM EST tablet 90 TAKE ONE TABLET BY MOUTH EVERY DAY WITH HCTZ TAKE ONE TABLET BY MOUTH EVERY DAY WITH HCTZ SOLD: 03/14/2020 [facility] 500 mg 06/24/2019 12:00:00 AM EST tablet extended release 24 hr 180 TAKE TWO TABLETS ONCE DAILY WITH EVENING MEAL TAKE TWO TABLETS ONCE DAILY WITH EVENING MEAL SOLD: 03/14/2020 [facility] Hydrochlorothiazide 12.5 MG Oral Tablet HYDROCHLOROTHIAZIDE 06/24/2019 12:00:00 AM EST tablet 90 TAKE ONE TABLET BY MOUTH STAS RY DAY TAKE ONE TABLET BY MOUTH EVERY DAY SOLD: 03/14/2020 [facility] Insurance Providers Payer name Policy type / Coverage type Policy ID Covered green party ID Covered green party's relationship to rae Policy Rae Plan Information Medicare Medicare Primary [id number] Self [id number] Medicare Medicare Primary [id number] Self [id number] Medicare Medicare Primary [id number] Self [id number] Medicare Medicare Primary [id number] Self [id number] Medicare Medicare Primary [id number] Self [id number] Medicare Medicare Primary [id number] Self MEDICARE A [id number] Self [id number] [id number] Medicare Medicare Primary [id number] Self [id number] MEDICARE [id number] Janna [id number] [id number] Medicare Medicare Primary [id number] Self [id number] Medicare Medicare Primary [id number] Self [id number] MEDICARE [id number] xxxxxxxxxxx [id number] [facility] [id number] BCBS EMPIRE ARASH DIV [id number] SP [id number] [employer] [id number] xxxxxxxxxxxx [id number] [employer] [id number] Janna YLS [id number] INSURANCE COVID-19 [id number] [id number] INSURANCE COVID-19 COVID Janna C OVID EMPIRE PLAN [facility] U [id number] Self [id number] ANSI-Commercial [id number] ANSI-Commercial [id number] ANSI-Medicare Part B [id number] [place] Plan [facility] Medigap Part B [id number] Self [id number] [facility] [place] Medigap Part B [id number] Self Medicare [place] Medicare Primary [id number] Self [place] Plan [employer] Medigap Part B [id number] Self EMPIRE BLUE CROSS BLUE SHIELD -O/P [id number] 18 [id number] MEDICARE -O/P [id number] 18 [id number] E[employer] BLUE CROSS BLUE SHIELD -O/P [id number] 18 [id number] MEDICARE -O/P [id number] 18 [id number] [facility] [id number] SP [id number] [employer]BS EMPIRE ARASH DIV [id number] SP [id number] MEDICARE [id number] SP [id number] EXCELLUS BLUE CROSS BLUE SHIELD HEA [id number] S [id number] MEDICARE MCA [id number] S [id number] GU75 MEDICARE MCA [id number] S [id number] GU75 [facility] [id number] SP [id number] BCBS [place] AR[place] DIV [id number] [place] Plan Medigap Part B [id number] [facility] [id number] ANSI-Commercial [id number] ANSI-Medicare Part B [id number] ANSI-Medicare Part B [id number] ANSI-Commercial [id number] ANSI-Commercial [id number] ANSI-Medicare Part B [id number] MEDICARE [id number] SP [id number] A ANSI-Medicare Part B [id number] ANSI-Commercial [id number] ANS-Medicare Part B [id number] Problems, Conditions, and Diagnoses Code Display Name Description Problem Type Effective Dates Data Source(s) C22.0 Liver cell carcinoma Liver cell carcinoma Diagnosis 04/09/2021 12:00:[address] [facility] new pt new pt Diagnosis 03/04/2021 12:00:00 AM ED [facility] N21.0 Calculus in bladder Calculus in bladder Diagnosis 1 08:25:00 AM EDT [facility] N32.81 Overactive bladder Overactive bladder Diagnosis 07/2019 08:25:00 AM EDT [facility] J98.8 Other specified respiratory disorders Ot her specified respiratory disorders Diagnosis 02/26/2020 11:08:19 AM EDT [facility] U07.1 COVID-19 COVID-19 Diagnosis 02/26/2020 11:08:19 AM ED T [facility] C22.0 Primary malignant neoplasm of liver Primary valeri gnant neoplasm of liver Problem 03/20/2021 12:00:00 AM EDT [facility] ([facility]) K92.2 Gastrointestinal hemorrhage Gastrointestinal hemorrhag e Problem 03/20/2021 12:00:00 AM EDT [facility] ([facility]) 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 Problem 03/05/20 12:00:00 AM EDT eCW1 ([facility]) C22.0 [id number] Hepatocellular carcinoma Problem 02/15/2021 12:00:00 AM EDT eCW1 ([facility]) R16.0 [id number] Liver mass, right lobe Problem 01/17/2021 12 :00:00 AM EDT eCW1 ([facility]) R18.8 [id number] Other ascites Problem 01/17/2021 12:00:00 AM EDT eCW1 ([facility]) K76.0 [id number] Fatty liver Problem 01/01/2021 12:00:00 AM E DT eCW1 ([facility]) D64.9 [id number] Chronic anemia Problem 11/28/2020 12:00:00 A M EDT eCW1 ([facility]) C61 Malignant neoplasm of prostate Malignant neoplasm of p rostate Problem 11/24/2020 01:00:00 AM EDT [facility] ([facility] ) 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 Malignant neoplasm of ur ethra Problem 11/24/2020 01:00:00 AM EDT [facility] ([facility] ) E11.9 Type 2 diabetes mellitus without complic ations Type 2 diabetes mellitus without complications Problem 11/24/2020 01:00:00 AM EDT [facility] ([facility]) I10 Essential (primary) hypertension Essential (primary) h ypertension Problem 11/24/2020 01:00:00 AM EDT [facility] ([facility] ) R78.81 Bacteremia Bacteremia Problem 11/24/2020 01:00:00 AM ED T [facility] ([facility]) 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 Pseudomonas (aeruginosa) (mallei) (pseud omallei) as the cause of diseases classified elsewhere Problem 11/24/2020 01:00:00 A M EDT [facility] ([facility]) K74.60 Unspecified cirrhosis of liver Unspecified cirrhosis o f liver Problem 11/24/2020 01:00:00 AM EDT [facility] ([facility] ) D69.6 Thrombocytopenia, unspecified Thrombocytopenia, unspec ified Problem 11/24/2020 01:00:00 AM EDT [facility] ([facility] ) Z46.6 Encounter for fitting and adjustment of urinary device Encounter for fitting and adjustment of urinary device Problem 11/24/2020 01:00:00 AM EDT [facility] ([facility]) Z43.6 Encounter for attention to other artific ial openings of urinary tract Encounter for attention to other artificial openings of urinary tract Problem 11/24/2020 01:00:00 AM EDT [facility] ([facility] ) Z79.84 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 Problem 11/24/2020 01:00:00 AM EDT NE TSMART ([facility]) Z90.89 Acquired absence of other organs Acquired absenc e of other organs Problem 11/24/2020 01:00:00 AM EDT [facility] ([facility]) Z90.79 Acquired absence of other genital organ( s) Acquired absence of other genital organ(s) Problem 11/24/2020 01:00:00 AM EDT [facility] ([facility]) Z90.6 Acquired absence of other parts of urina ry tract Acquired absence of other parts of urinary tract Problem 11/24/2020 01:00:00 AM EDT [facility] ([facility]) 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 Problem 11/24/2020 01:00:00 AM EDT [facility] ([facility]) 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 Prob donita 04/20/2020 12:00:00 AM EST [facility] ([facility]) N32.81 Overactive bladder Overactive bladder Problem 0 12:00:00 AM EDT [facility] ([facility]) Surgeries/Procedures Procedure Description Date Indications Data Source(s) OFFICE OUTPATIENT VISIT 15 MINUTES 03/20/2021 12:00:00 AM EDT [facility] ([facility]) HOSPITAL DISCHARGE DAY MANAGEMENT > 30 MIN 03/12/2021 12:00:00 AM EDT [facility] ([facility]) [facility] HOSPITAL CARE/DAY 35 MINUTES 03/11/2021 12:00:00 AM EDT [facility] ([facility]) [facility] HOSPITAL CARE/DAY 15 MINUTES 02/18/2021 12:00:00 AM EDT [facility] ([facility]) [facility] HOSPITAL CARE/DAY 25 MINUTES 02/17/2021 12:00:00 AM EDT [facility] ([facility]) Electrocardiogram Interpretation & Report Only 021 12:00:00 AM EDT [facility] ([facility]) OFFICE OUTPATIENT VISIT 15 MINUTES 02/14/2021 12:00:00 AM EDT [facility] ([facility]) OFFICE OUTPATIENT VISIT 15 MINUTES 01/22/2021 12:00:00 AM EDT [facility] ([facility]) Electrocardiogram Interpretation & Report Only 021 12:00:00 AM EDT [facility] ([facility]) APPENDECTOMY 11/13/2020 12:00:00 AM EDT M [facility] ([facility]) Cystectomy, And Ileal Loop 11/13/2020 12:00:00 AM EDT [facility] ([facility]) ECG ROUTINE ECG W/LEAST 12 LDS W/I&R 11/07/2020 12:00: 00 AM EDT eCW1 ([facility]) INSJ TEMP NDWELLG BLADDER CATHETER SIMPLE 09/25/2020 1 2:00:00 AM EDT [facility] ([facility]) OFFICE OUTPATIENT VISIT 40 MINUTES 09/10/2020 12:00:00 AM EDT [facility] ([facility]) INSJ TEMP NDWELLG BLADDER CATHETER SIMPLE 08/22/2020 1 2:00:00 AM EDT [facility] ([facility]) CYSTOURETHROSCOPY 08/03/2020 12:00:00 AM EST [facility] ([facility]) OFFICE OUTPATIENT VISIT 10 MINUTES 08/03/2020 12:00:00 AM EST [facility] ([facility]) Sars-Cov-2 (Covid-19) vaccine,Pfizer, LNP-S, PF, 30 mcg/ 0.3 mL 07/29/2020 12:00:00 AM EST [facility] ([facility]) OFFICE OUTPATIENT VISIT 25 MINUTES 07/20/2020 12:00:00 AM EST [facility] ([facility]) Sars-Cov-2 (Covid-19) vaccine,Pfizer, LNP-S, PF, 30 mcg/ 0.3 mL 07/08/2020 12:00:00 AM EST [facility] ([facility]) INSJ TEMP NDWELLG BLADDER CATHETER SIMPLE 06/21/2020 1 2:00:00 AM EST [facility] ([facility]) US RETROPERITONEAL REAL TIME W/IMAGE LIMITED 0 12:00:00 AM EST [facility] ([facility]) US RETROPERITONEAL REAL TIME W/IMAGE LIMITED 0 12:00:00 AM EST [facility] ([facility]) OFFICE OUTPATIENT VISIT 25 MINUTES 05/30/2020 12:00:00 AM EST [facility] ([facility]) INSJ TEMP NDWELLG BLADDER CATHETER SIMPLE 05/22/2020 1 2:00:00 AM EST [facility] ([facility]) INSJ TEMP NDWELLG BLADDER CATHETER SIMPLE 04/20/2020 1 2:00:00 AM EST [facility] ([facility]) INSJ TEMP NDWELLG BLADDER CATHETER SIMPLE 03/22/2020 1 2:00:00 AM EDT [facility] ([facility]) CARLENE POST-VOIDING RESIDUAL URINE&/BLDR CAP 03/22/2020 12:00:00 AM EDT [facility] ([facility]) CARLENE POST-VOIDING RESIDUAL URINE&/BLDR CAP 03/20/2020 12:00:00 AM EDT [facility] ([facility]) CARLENE POST-VOIDING RESIDUAL URINE&/BLDR CAP 03/16/2020 12:00:00 AM EDT [facility] ([facility]) Cystourethroscopy,/W Injects For Chemodenervation Of The Geoff dder 03/02/2020 12:00:00 AM EDT [facility] ([facility]) History & Physical 02/24/2020 12:00:00 AM EDT [facility] ([facility]) Results ID Date Data Source [id number] 04/09/2021 08:41:20 AM [facility] Name Value Range Interpretation Code Description Data Ema rce(s) Supporting Document(s) History and Physical [facility] [id number]/CXMklEVDno5GnMWlkOVh9VUhvGVAwJ0ZuTRT3eS6xLOD2CEzZQcUbCbDuJDZ3 lbm [file] ekRxP2N5J6J/track worker+W//9gd0lt4MvHPKSCwVTASljNu [file] ID Date Data Source [id number] 04/09/2021 08:22:57 AM [facility] Name Value Range Interpretation Code Description Data Ema rce(s) Supporting Document(s) Leukocytes [#/volume] in Blood by Automated count 3.9 10*3/uL 4-10 L [facility] Erythrocytes [#/volume] in Blood by Automated count 2.94 10*6/uL 4.6- 6.1 L [facility] Hemoglobin [Mass/volume] in Blood 8.3 g/dL 13.5-18 L [facility] Hematocrit [Volume Fraction] of Blood by Automated count 24.7 % 4 1-53 L [facility] Erythrocyte mean corpuscular volume [Entitic volume] by Auto mated count 84.2 fL 80-96 [facility] Erythrocyte mean corpuscular hemoglobin [Entitic mass] by Automated count 28.1 pg 27-33 [facility] Erythrocyte mean corpuscular hemoglobin concentration [Mass/volume] by Automated count 33.4 g/dL 32.0-[facility].0 [facility] distribution width [Ratio] by Automated count 16.4 % 11.5-14.5 H [facility] Platelets [#/volume] in Blood by Automated count 133 10*3/uL 150-400 L [facility] Differential cell count method - Blood [facility] Neutrophils/100 leukocytes in Blood by Automated count 75 % [facility] Lymphocytes/100 leukocytes in Blood by Automated count 7 % [facility] Monocytes/100 leukocytes in Blood by Automated count 10 % [facility] Eosinophils/100 leukocytes in Blood by Automated count 6 % [facility] Basophils/100 leukocytes in Blood by Automated count 2 % [facility] Neutrophils [#/volume] in Blood by Automated count 3.00 10*3/uL 1.8-7 .0 [facility] Lymphocytes [#/volume] in Blood by Automated count 0.26 10*3/uL 1.2-4 .0 L [facility] Monocytes [#/volume] in Blood by Automated count 0.39 10*3/uL 0-0.8 [facility] Eosinophils [#/volume] in Blood by Automated count 0.24 10*3/uL 0-0.5 [facility] Basophils [#/volume] in Blood by Automated count 0.06 10*3/uL 0-0.2 [facility] Nucleated erythrocytes/100 leukocytes [Ratio] in Blood by Automated count 0 /100{WBCs} 0-0 [facility] ID Date Data Source [id number] 04/09/2021 08:38:37 AM [facility] Name Value Range Interpretation Code Description Data Ema rce(s) Supporting Document(s) Prothrombin time (PT) 14.9 s 11.6-14.0 H [facility] INR in Platelet poor plasma by Coagulation assay 1.21 [facility] Routine intensity oral anticoagulation I NR is typically 2.0-3.0. Target INR must be clinically individualized. ID Date Data Source [id number] 04/09/2021 08:43:53 AM [facility] Name Value Range Interpretation Code Description Data Ema rce(s) Supporting Document(s) Albumin [Mass/volume] in Serum or Plasma by Bromocresol green (BCG) dye binding method 3.0 g/dL 3.5-5.2 L [facility] Bilirubin.total [Mass/volume] in Serum or Plasma 0.5 mg/dL <1.2 [facility] Calcium [Mass/volume] in Serum or Plasma 10.7 mg/dL 8.8-10.2 H [facility] Chloride [Moles/volume] in Serum or Plasma 102 mmol/L 98-107 [facility] Creatinine [Mass/volume] in Serum or Plasma 1.50 mg/dL 0.70-1.20 H [facility] Glucose [Mass/volume] in Serum or Plasma 114 mg/dL 70-140 [facility] Alkaline phosphatase [Enzymatic activity/volume] in Serum or Plasma 181 U/L 40-129 H [facility] Potassium [Moles/volume] in Serum or Plasma 4.9 mmol/L 3.4-5.1 [facility] Protein [Mass/volume] in Serum or Plasma 7.4 g/dL 6.4-8.3 [facility] Sodium [Moles/volume] in Serum or Plasma 130 mmol/L 136-145 L [facility] Aspartate aminotransferase [Enzymatic activity/volume] in Serum or Plasma 90 U/L <40 H [facility] Urea nitrogen [Mass/volume] in Serum or Plasma 55 mg/dL 8-23 H [facility] Osmolality of Serum or Plasma by calculation 286 mosm/kg 275-300 [facility] Creatinine/Urea nitrogen [Mass Ratio] in Serum or Plasma 37 [facility] Bicarbonate [Moles/volume] in Serum 15 mmol/L 22-29 L [facility] Alanine aminotransferase [Enzymatic activity/volume] in Seru m or Plasma 66 U/L <41 H [facility] Anion gap 3 in Serum or Plasma 13 mmol/L 8-15 [facility] Glomerular filtration rate/1.73 sq M pre dicted among non-blacks [Volume Rate/Area] in Serum or Plasma by Creatinine-based formula (MDRD) 43 mL/min/1.73m2 >60 L [facility] Glomerular filtration rate/1.73 sq M pre dicted among blacks [Volume Rate/Area] in Serum or Plasma by Creatinine-based formula (MDRD) 49 mL/min/1.73m2 >60 L [facility] ID Date Data Source [id number] 04/09/2021 07:41:57 AM [facility] Name Value Range Interpretation Code Description Data Ema rce(s) Supporting Document(s) Glucose [Mass/volume] in Capillary blood by Glucometer 106 mg/dL 70- 140 [facility] ID Date Data Source [id number] LEVEL 04/08/2021 12:00:00 AM EST eCW1 ([facility]) Name Value Range Interpretation Code Description Data Ema rce(s) Supporting Document(s) 2.4 1.8-2.4 MAGNESIUM LEVEL eCW1 ([facility]) ID Date Data Source Basic Metabolic Profile (BMP) 04/08/2021 12:00:00 AM EST eCW 1 ([facility]) Name Value Range Interpretation Code Description Data Ema rce(s) Supporting Document(s) 155 70-100 GLUCOSE, FASTING eCW1 ([facility]) 45 7-18 BLOOD UREA NITROGEN eCW1 ([facility]) 135 136-145 SODIUM LEVEL eCW1 ([facility]) 41.0 >42 GLOMERULAR FILTRATION RATE eCW 1 ([facility]) 1.72 0.70-1.30 CREATININE FOR GFR eCW1 ([facility]) 5.2 3.5-5.1 POTASSIUM SERUM eCW1 ([facility]) 20 21-32 CARBON DIOXIDE LEVEL eCW1 ([facility]) 11.0 8.8-10.2 CALCIUM LEVEL eCW1 ([facility]) 107 98-107 CHLORIDE LEVEL eCW1 ([facility]) ID Date Data Source CBC with Differential 04/08/2021 12:00:00 AM EST eCW1 ([facility]) Name Value Range Interpretation Code Description Data Ema rce(s) Supporting Document(s) 3.01 4.30-6.10 RED BLOOD COUNT eCW1 ([facility]) 4.0 4.0-10.0 WHITE BLOOD COUNT eCW1 ([facility]) 8.3 13.5-17.5 HEMOGLOBIN eCW1 ([facility]) 86.0 80.0-96.0 MEAN CORPUSCULAR VOLUME e CW1 ([facility]) 25.9 42.0-52.0 HEMATOCRIT eCW1 ([facility]) 178 150-450 PLATELET COUNT, AUTOMATED eCW1 ([facility]) 27.6 27.0-33.0 MEAN CORPUSCULAR HEMOGLOB IN W1 ([facility]) 15.9 11.5-14.5 RED CELL DISTRIBUTION WID TH eCW1 ([facility]) 32.0 32.0-36.5 MEAN CORPUSCULAR HGB CONC W1 ([facility]) 66.1 36.0-66.0 NEUTROPHILS % eCW1 ([facility]) 10.4 24.0-44.0 LYMPH % eCW1 ([facility]) 14.1 2.0-8.0 MONO % eCW1 ([facility]) 7.3 0.0-3.0 EOS % eCW1 ([facility]) 1.8 0.0-1.0 BASO % eCW1 ([facility]) 2.6 1.5-8.5 NEUTROPHILS # eCW1 ([facility]) 0.4 1.5-5.0 LYMPH # eCW1 ([facility]) 0.3 0.0-0.5 EOS # eCW1 ([facility]) 0.6 0.0-0.8 MONO # eCW1 ([facility]) 0.1 0.0-0.2 BASO # eCW1 ([facility]) ID Date Data Source [id number] 04/05/2021 12:51:04 PM EDT [facility] Name Value Range Interpretation Code Description Data Ema rce(s) Supporting Document(s) Progress Note [facility] ZPZPJj3xAvKRHiCb55/CXIeqMQZud4EgJJkuQEn7DHhdCWInK8DiQHO9uB9fLZB6RUlSJsDaZqInJKM4 lbm WhBlbTPfIlYYTaTcmBQbSoIMpmPopygNEcDS8RgPK1JESvM93rSIOtSVSiR8CaMGS1NLo+Sb5HASIfvK YjJJ6YGprT3RjvBepCBJ0zoe7sbAgOIwT7o2inf5xVYYmZURvcG0Ir9WhKh86m6+faJin/nheb3yYnFv jWVFUTRfBkd+lHxD7ywC8EOKKjp7D+8FsZT3F/628D d0D3JJq/apdfgdJuOr3CQeJS6XUUQMdYn6Xa/dZ2msW553jOqoyQ29BPZH9F1IfBH/3By+OmKf2JQR63 FZmtRRGeYeiEUTTQ9FNO0Midvyx1kiUQgK6YUwsRYWsOmjc3BQFVKWmtffKDUG5+fbflHbn9PLNQukUc ME40VCBUBk2gXLfGQpy//3wpet07gDQSAHv08QuBik UNUMlDb1TTh+YZrcTV4GPmrdNMiW8ReoT3WffZP77E6TosCux6UKRoA0/+IhZDu/HM8jmpCFTnEBulKa Vezh56JCtLM1m+QKsiflbjeLYSx/E0GS2i+l83lytoZ7OVgShK8eacQ93pxBvYFeI+7igtOyhDAM5mXk jSuRgG4y7FCf0JUyhe5pS5Ai6NO8Paq0MSFfQ102w/ rteVzNpKp5EeUoBNLxvrQ1h/DGvnHZ+3pMbYZew0yw3SsoIEguQst0w6Gn75GpDGNE6Be1L7nTjmWoVt u3DmveBbtV4gst143D4nOCNCXBv6HBLuZ1carKKQeZAmDB3v1diIo9VZhG7VOrnQMnsRTmCSK5Yxe/RR vmdYqxKINQmaVpL6BYDJW2vgzMnIZl36VJR8GyfYbM 93EqBWuHpDONxOW9DfMZfjR89I07V6K0DxwiIFNXNwpHmdqhSQuqRmIRjgFOpnQX0nWZJGETJEnhFLl9 LVMbgFczMaUsMof66G744609kbPn9ro9eOcAINC9X/gB9n8epXRkGafS5cXCqVBSpacT3+R/WvDDxfJF /Ef9amceIglVeBb+vHcAFBFMYyn4JLO9Od3ZY+3/HINOJOSA [file] FrPXLhSwtzJgOeWE3ENa5HVuE9ZIN2dOQgMr3NSUj0QXQCUhVgGZ4NGEa= ID Date Data Source [id number] 04/05/2021 12:51:00 PM EDT [facility] Name Value Range Interpretation Code Description Data Ema rce(s) Supporting Document(s) SARS-CoV-2 RNA 2019 nCoV Real-Time RT-PCR: NOT DETECTED [facility] This lab was ordered by [facility] and reported by [facility]. 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 [facility] Patient has symptoms related to [facility] When did you start to experience these symptoms [Date and time] [Phen X] [facility] Patient was hospitalized because of this condition [facility] patient was admitted to ICU for [facility] Patient resides in a congregate care setting [facility] status [facility] ID Date Data Source [id number] 03/31/2021 05:03:49 PM EDT [facility] Name Value Range Interpretation Code Description Data Ema rce(s) Supporting Document(s) Progress Note [facility] AULYYj6tJqMJYoXu39/DJLazZTZoy1NfZSyrUUf1UZoyJWCxZ3OiLAL4hR5dHIT9NFiBNyMsJoBtILLo lbm [file] ICAgICAgICAgICAgICAgICAgICAgICAgICAgICAgIC AgICAgICAgICAgICAgICAgICAgICAgICAgICAgICAgICAgICAgICAgICAgICAgICAgICAgDQogICAgIC AgICAgICAgICAgICAgICAgICAgICAgICAgICAgICAgICAgICAgICAgICAgICAgICAgICAgICAgICAgIC AgICAgICAgICAgICAgICAgICAgICAgICAgICAgICAg ICAgDQogICAgICAgICAgICAgICAgICAgICAgICAgICAgICAgICAgICAgICAgICAgICAgICAgICAgICAg ICAgICAgICAgICAgICAgICAgICAgICAgICAgICAgICAgICAgICAgICAgICAgDQogICAgICAgICAgICAg ICAgICAgICAgICAgICAgICAgICAgICAgICAgICAgIC AgICAgICAgICAgICAgICAgICAgICAgICAgICAgICAgICAgICAgICAgICAgICAgICAgICAgICAgDQogIC AgICAgICAgICAgICAgICAgICAgICAgICAgICAgICAgICAgICAgICAgICAgICAgICAgICAgICAgICAgIC AgICAgICAgICAgICAgICAgICAgICAgICAgICAgICAg ICAgICAgDQogICAgICAgICAgICAgICAgICAgICAgICAgICAgICAgICAgICAgICAgICAgICAgICAgICAg ICAgICAgICAgICAgICAgICAgICAgICAgICAgICAgICAgICAgICAgICAgICAgICAgDQogICAgICAgICAg ICAgICAgICAgICAgICAgICAgICAgICAgICAgICAgIC AgICAgICAgICAgICAgICAgICAgICAgICAgICAgICAgICAgICAgICAgICAgICAgICAgICAgICAgICAgDQ ogICAgICAgICAgICAgICAgICAgICAgICAgICAgICAgICAgICAgICAgICAgICAgICAgICAgICAgICAgIC AgICAgICAgICAgICAgICAgICAgICAgICAgICAgICAg ICAgICAgICAgDQogICAgICAgICAgICAgICAgICAgICAgICAgICAgICAgICAgICAgICAgICAgICAgICAg ICAgICAgICAgICAgICAgICAgICAgICAgICAgICAgICAgICAgICAgICAgICAgICAgICAgDQogICAgICAg ICAgICAgICAgICAgICAgICAgICAgICAgICAgICAgIC AgICAgICAgICAgICAgICAgICAgICAgICAgICAgICAgICAgICAgICAgICAgICAgICAgICAgICAgICAgIC SeQBb2Z9xvVBFoMIWsTS8nVAm3Ru9+DKfZDyOzUZP8iyFabI5GFX5rx2EqJEdeKGOhh5QvPKi1YW1AHH NsDYzaRS7TLSqcgn5FJPUfAUChzGAQj5tzZvRaYER6 WJPhDbytMS9SVQLrV2sdwdGwMYKyYSGAOW7CLaCnL4FrnB94ULHMAz6+MRjxpyLhUfiPRoI0ISKlk4Sx WOz9GO6LOJCvVuosu0HlMtInZWZSIYlqSD5OSUE4YMXwXGTrUy1WQDBqY220meGeKJ6AEn3YVeJoND6u ae2YOiBiDWKvTtmJHjb6KEfwJM9HoQUgRHgHlf4vzx XdojIWv9BfgvWlmDYKMSt5yTDYKMYxLJVCYySexFXmBN3gWO5cXUUjYRZiPcX5FYDAOK9PMFSvXLIpcW ByIMUtLGKJPW7TQAgoXKS9XDEbfjNfcJShDIlwSJ2QLTZmkbPdICsaKIUEHDy+Iq2GJT7ds8DbPYqpXC NsXM2apx4TNTkOGqAfQ3W2xUBaY1B1BGexJo4UAWZl HYZxOJnoTMUIQEmoTS4YJH6aokR2ZC7NdUUkAMDsVNLrnEXtDKw0A87bgTYrGJlhBX4GEQF+Earl+Pg0K KBSxJSIjSVQbYcPwHKSTYsCiJ8YrX6KAg0YnA4RlYP36iDzgsuKrIIomKL4QGY2dQAEuVDVVPO0UgZIv iB9iuxClIWRnXGERRyOlF96faNZrRHGgIMS4GLMcKq 3ZJXGeA1RyffVhxGodupQcYGNhKNXCSD1GXDmostUodEHjzQhmIJ74oFbzFP3DTk6RClQkSM7zxj5TcD XjEs5USBZwMs5JWBAtWHUnUAFiMEA7VFBrEeToHLukIFNiDETeWVX6MNErAGFuCZ9KRnTgQGEaYOefAg VwYXTxQTHyfd3OMNXnHQHsTMd7YGTaFTRiTGYpUJme CBIzHMHfYDZ0VQZlHKXvYN6OGjXyNWWjBKD1HNksJQQeGKFocu0CBMVqULXzYmT4SyTaCDLaFUMtRZev FGPjYNCkJVOaANKpEWCtDB1VHeNbASHjBENfKXkzGDJpQPJlsi2SWWUdQBVzDyW9VcAsTDPbFVHaMFpf TBQrSNM0DmX8QNKzFABgOS4ENrOdTEDsOSP6IVhbJZ GiWYUvqe3MJWMwECLnVXntOTNyTOVhMYWkINfoMCKeDYQ6PEu5RGFqEMKjJO3REqTcFRDgYJH2WBSxXR EzNLYnzm9ANKUnSKRkAvWtMWFuKKKdCVWiKLzpWZNjNUT8HGG6EBUtIRRfXN5BGqZwXMLlERwfEINbOM MfOCXnce9NDJTfLVAdVsCkILGjMSYiOKAhIXazBMIk MMG2UQV9EDZoFTHiXR6XKwDeWUYbAIt0KNhfZGPvRVTlik1HMXZwEPFdHNT4SLCfHBIfRTJjGJh2dbHk wYBnNRj0FH5LL7GgvwKjAzMIJf7Ji311IHUcUCHzFl2PW0yzJg6xODTfNVBJMx4TDAp5HBJ1KVQ3D2Fy WPQoJIKcZsQ6WYAwBXAcOLH5GqS3TNO+VUz8BFazBT z0RyBxHXYlOgLtSbPoRFU6SGE9BmyxPfayJB2zICYKVn7+JQqvfLHjgElbSVWNVwX0Mwl7XGbzVKUOSb 0K ID Date Data Source [id number] 03/31/2021 05:03:44 PM EDT [facility] Name Value Range Interpretation Code Description Data Ema rce(s) Supporting Document(s) Progress Note [facility] RFLXZx6gJwKMBdCr06/LSHlcLEUol9OnHGcdYJj5TDneXAXaF7XoJOC0oH9qWDU5CGcXJnZjBkKmGVEh lbm [file] ICAgICAgICAgICAgICAgICAgICAgICAgICAgICAgIC FnZCBhJNKmNRVqLUExUY7JNBBiWMObITVcFDUtYGUuZROeBJAwMFVkPHBiZGZbUPKeYIShVLYtLCElIZ DcKZWfMAZkAQPrEIQiBJNcUQLoWZIpWKVpKJDpIDApPFSfCJUbOPOeHNNaUBQvSDVyMQSgEDUmMQ5EBB AgICAgICAgICAgICAgICAgICAgICAgICAgICAgICAg ICAgICAgICAgICAgICAgICAgICAgICAgICAgICAgICAgICAgICAgICAgICAgICAgICAgICAgICAgICAg AHCgTIKbAG5BYXToTYMyRIXyTYViMPPyQHXhZIZnNZYsCMXqJYSrEZAhDVQeOLHqVZSlLYSpRCXeIGHs ICAgICAgICAgICAgICAgICAgICAgICAgICAgICAgIC VkCENwZYMuZORdJSUxNUPkOQ2BMGGkKJTlPSQmOGFeNOJgOJRzLDXcTTNxOGBpUITwFXMuRKLcUIKeGY AgICAgICAgICAgICAgICAgICAgICAgICAgICAgICAgICAgICAgICAgICAgICAgICAgICAgICAgICAgIA 0KICAgICAgICAgICAgICAgICAgICAgICAgICAgICAg ICAgICAgICAgICAgICAgICAgICAgICAgICAgICAgICAgICAgICAgICAgICAgICAgICAgICAgICAgICAg DLYgWYGqJCMsET2SCTZdAHHlUBKaVVSmPMQeWMSnFJYuPDPzLUPqCIVqKCQqMBUiHMBxPIJfXSEpSCKu ICAgICAgICAgICAgICAgICAgICAgICAgICAgICAgIC IzTPKtPLXeNENjYJXgXSDvXRPnQE0YOPXtYTYaQRTdAZBnWDGaPARuSJKgXFUwNAAfUODfCYHqXMSjDD AgICAgICAgICAgICAgICAgICAgICAgICAgICAgICAgICAgICAgICAgICAgICAgICAgICAgICAgICAgIC OfNZ7GOURuFFAfEFDgUEFbJFKbDHBsECLqWXDeASGv ICAgICAgICAgICAgICAgICAgICAgICAgICAgICAgICAgICAgICAgICAgICAgICAgICAgICAgICAgICAg QLMtAQElGDDwFMEiTA0UNKXhOIDjXFAnWDEjCVEsTZQvKGCeSYTiMWIfBRHbWCSgVQPiLRKpHZZwXDPk ICAgICAgICAgICAgICAgICAgICAgICAgICAgICAgIC RqCIRcSDRtTDNoVPKfJRSpVTLlQIQhTR4NAU87fKAej7E2QWDyJX0abwr/Qz0JYOyzntWveKUpJN6UOf JvMJ2hgd3QEtGzGB4aul2KUEmWTfNaD8Q0cBPeLLVxXDHRKlKeX45mMEyzSc81JPfmJLNxNrQwDKt5Ig 7ORaYtC3vfHFYvCwM9KDQvZjG8HOHqMxE8KIOxFgCz ERLuWFAqYHEeIXWPHT8JMnOwK9PtoF95UYYDDs6+WLfpzqHgQybQMtC8DZQlw8JyYDt1WG3NYPMlZkbf a7JjYktpXJTFIWizAU3ZNAI7KVR4PUQuGs5TMSUeB327mkObFM9EIb8LRuShXA7vfp1KZfqwQRDrRthE Xin0ANguAZ0TdGInZReSqk8agwPejzHOf3XrujIdwH HNhwtyeKhnYEqwEeTcq1FwTPAULRMcfSZqGK4lDL9sVITnFSMoNlH6NKYQJZ7WFRFbAEArkJDrISPwQF YJJU8WBMdbNCK3VUShhzDhjUJzHFtdHZ3QKOBvgqTlZtoiXIGKZVr+Bo8ZPT3yu9LdAVgfSWLqTZ7rhs 3CJXtMVzLiQ0D8yXCcF7S6YXelJd4DBSRyQUEoVwNp FGGMSLveTW2ABG1wmaF0DZ4DaJQaPTTaFYMmvFYyHBi6N06xpWYeEXsfGB5CZTI+Earl+Ug9NKBXqVSQp BAMkZoJfWLJGXvHkF0KjU1GKm7YhV8ObJE45gOsnooXwELcuGY6AXW1uLAImEASZAM7UzHRghG3wczPo InLhVDUUCcWlT23qjHKjFXTvBUR6LSMwGx5SVDXlE9 AyngTusNvqveYhXRYpFVOLMH2YFDcypnCpuLTagIibDI26uMtoUR0QTk5ENlXcLN6nfg5FxGOqXc4VBB JhLQ8PTAKtMKOcVTMyWYN5MOXfDxMvHFlcXDKlSHDeFNW2UQFyDKIzKE3LQfYzHWErIdJnGGSeWIElFT Yuxt1LAVIqGANcAaSxEIOmKIYgOJHjSBkpNLQyGQWi PKH6LBWyQORxYJ3TKcMvZJSfYTX6JEJgOAFwBFWqrb7BLWBjHWCkKSJ7RKKuPLWgBSGcRTzuOUWsNZE7 RvB2FUHqAHYhRM8RWxLeDULrWJs3QlHiEQZbJLTyun9NKVDfHIQfTOFjFJKyFNCwMYCxACjiYYRwMNTy QGQ9ARCnWHOeEB3GUlEyILJbTJX1PCAyCNPkAVMsmi 5RBFXqRSYkAhp1EnOqVQYaNEYkMUpaPGMcVIS1OVF9ZQFbPQVvGA9WBmSrQKYkFMQrGQYiRLTjWNYxie 0MOKZfYZPlDeStMWAnFAZgHNKhOCrjHYOyDZR0HIYiVHYkKFGjHP3OSjElXVYsETB9BKNcJLJpTVRemv 5TOVZpMDApXvK3JzQeARJhIJYgVZgfIUTaQXU1ShK3 BOBlUXDvBK8AIaOgKFPwZEu1KlMgFNRkBGRqfg2ETSJwOIDkDMQ8XhNoZTSvAOBnQKzbMSWfFYK6Urw0 QJLhTPVhUC7GIzJsJNVbPlg7MAcmCYJuZTLudc3TOYHwYHKpUYD9GsYwQLQzKSKvNIkzWBDkUOQwQvkq KGWgWHHuZQ5NVmNgCDAvZmH8JDUdXNYmLPAwqf5JQT AgBWGvDyY5ZLRhTWXrRAJlFLssABWcVOOfXbQ4QAHbMBKxDZ9QYaGbXTRvTnYsZQMoSFAaVRCzns5DeX CweCcfzn2WDPbMYe1UuXtnYJZmNKxtNe7nsUTnPQKqHEVTOv8HbuElZZCwOVOPQQnrRBOyCEZaYyQhEO J5IGDrNPMcPCBdOhmlYMT1Qso2NqYkOVGnQjU8OKUg OGL9Yyk2RfToNZObEZJqCUMnMUulOnnpHJFqZMP+MC3zNGv+Mu8Zp9WnbkF9hpYwMGylLnSdII8DXDRH T0YNCg== ID Date Data Source [id number] 03/31/2021 11:27:34 AM EDT [facility] Name Value Range Interpretation Code Description Data Ema rce(s) Supporting Document(s) POC GLUCOSE 206 mg/dL (70-99) H [facility] NOTIFIED PROVIDERNOTIFIED NURSEPERFORMED BY CLINICAL STAFF ID Date Data Source [id number] 03/31/2021 09:33:13 AM EDT [facility] Name Value Range Interpretation Code Description Data Ema rce(s) Supporting Document(s) WBC 4.7 10*3/uL (4.1-11.0) [facility] [place] RBC 3.05 10*6/uL (4.60-6.10) L [facility] HGB 8.5 g/dL (13.5-18.0) L [facility] PATIENT TRANSFUSED HCT 25.8 % (41.0-53.0) L [facility] PERFORMED AT [address] [place] [address] MCV 84.6 fL (80.0-95.0) [facility] MCH 28.0 pg (27.0-32.0) [facility] MCHC 33.0 g/dL (32.0-36.0) [facility] RDW 16.2 % (10.5-14.5) H [facility] PLT 167 10*3/uL (150-450) [facility] MPV 8.8 fL (7.1-10.7) [facility] ID Date Data Source [id number] 03/31/2021 08:41:39 AM EDT [facility] Name Value Range Interpretation Code Description Data Ema rce(s) Supporting Document(s) POC GLUCOSE 122 mg/dL (70-99) H [facility] PERFORMED BY CLINICAL STAFF ID Date Data Source [id number] 03/30/2021 04:54:35 PM EDT [facility] Name Value Range Interpretation Code Description Data Ema rce(s) Supporting Document(s) POC GLUCOSE 174 mg/dL (70-99) H [facility] PERFORMED BY CLINICAL STAFF ID Date Data Source [id number] 03/30/2021 12:43:48 PM EDT [facility] Name Value Range Interpretation Code Description Data Ema rce(s) Supporting Document(s) POC GLUCOSE 167 mg/dL (70-99) H [facility] NOTIFIED NURSEPERFORMED BY CLINICAL S TAFF ID Date Data Source [id number] 03/30/2021 12:39:34 PM EDT [facility] Name Value Range Interpretation Code Description Data Ema rce(s) Supporting Document(s) WBC 3.2 10*3/uL (4.1-11.0) L [facility] [place] RBC 2.36 10*6/uL (4.60-6.10) L [facility] HGB 6.6 g/dL (13.5-18.0) L [facility] RESULT(S) CALLED TO AND READ BACK [facility] EXTENDED STAYS ICA 4S AT 1237 [place] 03/30/[place] [address] HCT 19.9 % (41.0-53.0) L [facility] PERFORMED AT [address] [place] [id number](S) CALLED TO AND READ BACK [facility] EXTENDED STAYSICA 4S AT 1237 ON 03/30/[place] [address] MCV 84.3 fL (80.0-95.0) [facility] MCH 27.9 pg (27.0-32.0) [facility] MCHC 33.1 g/dL (32.0-36.0) [facility] RDW 16.8 % (10.5-14.5) H [facility] PLT 141 10*3/uL (150-450) L [facility] MPV 9.3 fL (7.1-10.7) [facility] ID Date Data Source [id number] 03/30/2021 08:35:32 AM EDT [facility] Name Value Range Interpretation Code Description Data Ema rce(s) Supporting Document(s) POC GLUCOSE 119 mg/dL (70-99) H [facility] NOTIFIED NURSEPERFORMED BY CLINICAL S TAFF ID Date Data Source [id number] 03/30/2021 05:31:19 AM EDT [facility] Name Value Range Interpretation Code Description Data Ema rce(s) Supporting Document(s) URINE WBC (0-5) [facility] URINE RBC (0-2) [facility] BACTERIA 2+ [HPF] [facility] ID Date Data Source [id number] 03/30/2021 05:05:22 AM EDT [facility] Name Value Range Interpretation Code Description Data Ema rce(s) Supporting Document(s) COLOR [facility] PERFORMED AT [address] [facility] [address] APPEARANCE [facility] SPEC GRAV URINE 1.011 (1.003-1.030) [facility] PH URINE 6.0 (5.0-7.5) [facility] LEUK ESTERASE (NEG) [facility] CRITERIA FOR CULTURE NOT MET.CULTURE CAN BE ADDED WITHIN 36 HOURS OFCOLLECTION. NITRITE URINE (NEG) [facility] PROTEIN URINE (NEG) [facility] GLUCOSE URINE (NEG) [facility] KETONE URINE (NEG) [facility] [place] UROBILINOGEN 0.2 mg/dL (0-1.0) [facility] [place] BILIRUBIN URINE (NEG) [facility] BLOOD/HGB URINE (NEG) A [facility] ID Date Data Source [id number] 03/31/2021 12:30:00 AM EDT [facility] [place] [id number] PATIENT NAME: EL LINARES OF : 2REPORT: ADMISSION NOTEPATIENT NUMBER: [id number] STATUS: SDMEDICAL RECORD NUMBER: [id number] OF ADMISSION: 1ROOM: 02 PRIMARY CARE PROVIDER: Анна Braun MD UROLOGIST: Dr. Walker. The patient also follows up with [facility]. CHIEF COMPLAINTS: Recurrent bleeding from the ostomy. HISTORY OF PRESENT ILLNESS: 80-year-old unfortunate male with history of prior bladder cancer requiring a radical cystoprostatectomy with ileal conduit and recently diagnosed hepatocellular carcinoma and scheduled to receive radiation therapy at [facility] presented to the ED with reports of recurrent bleeding from ostomy since Thursday morning. The patient has had multiple episodes of this and was discharged from [facility] in 03/12/2021 with the similar episode requiring application of the pressure with improvement. reports he had bright red blood in the ostomy bag with some clots that has been continuous throughout the day, tried to apply some pressure that did not help and decided to send him in for further evaluation. Upon arrival, he was noted to be slightly hypotensive, systolic blood pressure in the 80s, requiring a bolus of normal saline with improvement in blood pressure. The ostomy bag was changed and further pressure applied with resolution of bleeding and now noted with clear urine in the bag. Lab work showed slightly increased creatinine and decreased hemoglobin around 7,essentially similar to that about three weeks ago whilst here. Denies anyabdominal pains, hematemesis or any rectal bleeding. Denies any chest pains, shortness of breath, cough, fevers or chills. He was seen by Urology and will be evaluated and monitored for any recurrent bleeding. PAST MEDICAL HISTORY: 1. Hypertension.2. Diabetes.3. Bladder cancer, requiring ileal conduit.4. Hepatocellular carcinoma.5. Liver cirrhosis with portal vein thrombosis, pending radiation therapy at [facility].6. Chronic ascites, on diuretics.7. Recurrent bleeding from the ileal conduit. PAST SURGICAL HISTORY:1. Radical cystoprostatectomy with ileal conduit placement with appendectomy in 11/13/2020.2. Liver biopsy.3. TURP. ALLERGIES: Include Casodex. MEDICATIONS: Home Medicationsdocusate sodium (Stool Softener) 100 mg Capsule 1 capsule oral twice a dayPRNPRN Reason: constipationMedication Status: activeferrous sulfate (FeroSul) 325 mg (65 mg iron) Tablet 1 tablet oral everyThursday, Thursday, ThursdayMedication Status: activeLast Taken Date/Time: 03/29/21furosemide 40 mg Tablet 1 tablet oral daily every morningMedication Status: activeLast Taken Date/Time: 03/29/21hydroxyzine HCl 10 mg Tablet 1 tablet oral every four hours PRNPRN Reason: itchingMedication Status: activeibuprofen 200 mg Tablet 1 tablet oral Every 3 hours PRNPRN Reason: painExtended Instructions: stated at maximum 6 tablets/dayMedication Status: activelosartan 100 mg Tablet 1 tablet oral daily every morningMedication Status: activeLast Taken Date/Time: 03/29/21metformin 500 mg Tablet Extended Release 24hr 2 tablet oral daily everyeveningMedication Status: activeLast Taken Date/Time: 03/29/21psyllium husk (Metamucil) 0.52 gram Capsule 1 capsule oral daily everyeveningMedication Status: activeLast Taken Date/Time: 03/29/21spironolactone 25 mg Tablet 1 tablet oral twice a dayMedication Status: activeLast Taken Date/Time: 03/29/21lidocaine 5 % Ointment 1 application topical three times a day PRNPRN Reason: painMedication Status: active FAMILY HISTORY: Not relevant at this time. REVIEW OF SYSTEMS: All 14 systems were reviewed and were negative with theexception of as per HPI. PHYSICAL EXAMINATION:Vitals on Admission: Temperature of 36.3, pulse of 84, respiratory rate of18, blood pressure was 80/42, currently 100 systolic, saturating around 99percent on room air. Denies any pain.General: Elderly frail-looking male of stated age, lying in bed, slightlyjaundiced, otherwise alert and oriented x3.HEENT: Normocephalic, atraumatic. Pupils are equal, round, reactive tolight. Extraocular muscles are intact. Anicteric.Neck: Supple.Cardiovascular: Normal S1, S2. No murmurs, rubs or gallops noted.Lungs: Clear to auscultation bilaterally. No wheezing, rhonchi, orcrackles.Abdomen: Soft, slightly distended. No tenderness to palpation. Nopalpable masses noted. There is an ileal conduit noted with clean urine inplace. No bleeding currently.Extremities: No clubbing, no cyanosis. Trace edema noted bilaterally.Skin: Dry and intact. No rashes noted.Psych: Affect is normal. Cooperative with history and exam. LABORATORIES AND IMAGING: Chemistry with creatinine of 1.5, serum glucoseof 160, rest were normal. LFTs with alkaline phosphatase of 177, AST/ALTof 85/70 with normal bilirubin. Troponin is negative. PT, INR normal.WBC of 4, H and H of 7/22 with platelets of 173. ASSESSMENT AND PLAN: 80-year-old unfortunate male with history of bladder cancer requiring ileal conduit, recently diagnosed hepatocellular carcinoma with liver cirrhosis with ascites and recurrent bleeding from the ostomy, discharged from [facility] about three weeks ago and required pressure application, presented from home with the with recurrent bleeding throughout the day with some clots that required application of pressure once again in the ED with improvement with H and H slightly decreased but at baseline and slightly decreased blood pressurewith improvement with hydration. 1. Recurrent ostomy bleed. Currently resolved with application of pressure.Continue to monitor for any recurrent bleeding in that case, he will require IR for possible embolization. Continue to monitor for improvement in vitals and follow up CBC for any decreased in H and H and transfuse as needed.2. Hepatocellular carcinoma. Reports he is scheduled for radiation therapy next week and he will follow up on that.3. Liver cirrhosis with ascites. Continue diuretics.4. Hypertension. Continue Avapro as BP allows.5. Diabetes. Continue Humalog coverage.6. DVT prophylaxis will be early ambulation due to low risk for DVT. Per my assessment, the patient will likely need less than two midnights'stay. I will admit the patient to observation. DICTATED BY: Gareth Montana MD Dictated: 03/30/2021 3:44DT: 03/30/2021 3:51Job #: [id number]: Анна Braun MD NOTE: [facility] computer generated reports are not confirmed orauthenticated unless they are signed by the providerElectronically Authenticated and Edited by:GARETH MONTANA MD on 03/31/2021 12:30 AM EDT Name Value Range Interpretation Code Description Data Ema rce(s) Supporting Document(s) ID Date Data Source [id number] 03/30/2021 01:21:00 AM EDT [facility] Name Value Range Interpretation Code Description Data Ema rce(s) Supporting Document(s) SARS coronavirus 2 RNA [Presence] in Res piratory specimen by JUSTEN with probe detection NOT DETECTED [facility] This lab was reported by [facility]. ID Date Data Source [id number] 03/30/2021 09:28:37 AM EDT Lab [facility] Name Value Range Interpretation Code Description Data Ema rce(s) Supporting Document(s) SPECIMEN DESCRIPTION [facility] COVID19 RESULT (NDET) Lab [facility] THIS ASSAY AMPLIFIES AND DETECTSTHE TARG ET RNA USING REAL-TIME PCR.TESTING PERFORMED ON THE [employer] COMMENT [facility] UNDER AN EMERGENCY USE AUTHORIZATION(EUA ) FOR THE DETECTION AND/OR DIAGNOSISOF THE VIRUS THAT CAUSES COVID-19.NEGATIVE 2019_NCOV RT-PCR RESULTS DONOT PRECLUDE 2019_NCOV INFECTION ANDSHOULD NOT BE USED THE SOLE BASISFOR PATIENT MANAGEMENT DECISIONS. FIRST TEST [facility] EMPLOYED IN THC[employer] [facility] SYMPTOMATIC [facility] DATE OF SYMPT ONSET [facility] HOSPITALIZED [facility] [place] [facility] CONGREGATE CARE SET [facility] ID Date Data Source [id number] 03/29/2021 11:53:30 PM EDT [facility] SPEC EXP DATE 1PATI ENT ABO/Rh A POSITIVEANTIBODY SCREEN NEGATIVETESTING SITE PERFORMED AT [address] [place], [place] [address]OOD BANK COMMENT BLOOD TYPE CONFIRMED. Name Value Range Interpretation Code Description Data Ema rce(s) Supporting Document(s) TYPE AND SCREEN [facility] PATIENT ABO/Rh A POSITIVE ID Date Data Source [id number] 03/29/2021 11:10:22 PM EDT [facility] Name Value Range Interpretation Code Description Data Ema rce(s) Supporting Document(s) TOTAL PROTEIN 7.0 g/dL (6.4-8.2) [facility] ALBUMIN 2.2 g/dL (3.2-4.5) L [facility] GLOBULIN 4.8 g/dL (2.7-4.3) H [facility] ALB/GLOB RATIO 0.5 RATIO [facility] BILIRUBIN,TOTAL 0.4 mg/dL (0.0-1.0) [facility] PLEASE NOTE:Total bilirubin results may be falselyelevated in patients taking Eltrombopag. BILIRUBIN,CONJUGATED 0.2 mg/dL (0.0-0.3) [facility] BILIRUBIN,UNCONJ. 0.2 mg/dL (0.0-0.7) [facility] ALKALINE PHOSPHATASE 177 U/L (45-117) H [facility] AST (SGOT) 85 U/L (11-39) H [facility] ALT (SGPT) 69 U/L (12-78) [facility] ID Date Data Source [id number] 03/29/2021 11:10:22 PM EDT [facility] Name Value Range Interpretation Code Description Data Ema rce(s) Supporting Document(s) TROPONIN I <0.05 ng/mL (<0.05) [facility] [place] Less than 0.05: Myocardial injury unlike lyGreater than or equal to 0.05: Highly suggestive of myocardial injuryCorrelation with rise and/or fall ofserial troponins, clinical symptomsand ECG changes is necessary. ID Date Data Source [id number] 03/29/2021 11:10:22 PM EDT [facility] Name Value Range Interpretation Code Description Data Ema rce(s) Supporting Document(s) SODIUM 137 mmol/L (136-145) [facility] POTASSIUM 4.7 mmol/L (3.6-5.2) [facility] CHLORIDE 105 mmol/L (100-108) [facility] CO2 22 mmol/L (22-31) [facility] ANION GAP 10 mmol/L (7-16) [facility] UREA NITROGEN 39 mg/dL (7-24) H [facility] CREATININE 1.51 mg/dL (0.80-1.30) H [facility] BUN/CREAT RATIO 25.8 RATIO (10.0-20.0) H [facility] GLUCOSE 163 mg/dL (70-99) H [facility] CALCIUM 10.0 mg/dL (8.4-10.2) [facility] GFR 45 ml/min/1.73m2 (>59) L [facility] GFR ( AMER) 54 ml/min/1.73m2 (>59) L [facility] GFR INTERPRETATION [facility] --NORMAL KIDNEY FUNCTION OR MILD DISEASE - GFR >OR= 60CHRONIC KIDNEY DISEASE - GFR 15 - 59RENAL FAILURE - GFR <15 Est. GFR calculation based on the MDRDstudy equation, which assumes a steadystate for creatinine. Est. GFR should notbe used for medication dosing. ID Date Data Source [id number] 03/29/2021 10:52:36 PM EDT [facility] Name Value Range Interpretation Code Description Data Ema rce(s) Supporting Document(s) PT 11.6 s (9.2-11.9) [facility] PERFORMED AT [address] [place] [address] INR 1.11 [facility] SUGGESTED THERAPEUTIC RANGES USING INR F ORSTABILIZED ANTICOAGULATED PATIENTS:STANDARD DOSE THERAPY INR 2.0-3.0 DVT, PE, PREVENT DVT OR EMBOLISMHIGH DOSE THERAPY INR 2.5-3.5 PREVENT EMBOLISM FROM MECHANICAL HEART VALVE ID Date Data Source [id number] 03/29/2021 10:43:14 PM EDT [facility] Name Value Range Interpretation Code Description Data Ema rce(s) Supporting Document(s) WBC 3.5 10*3/uL (4.1-11.0) L [facility] [place] RBC 2.67 10*6/uL (4.60-6.10) L [facility] HGB 7.3 g/dL (13.5-18.0) L [facility] HCT 22.4 % (41.0-53.0) L [facility] MCV 83.9 fL (80.0-95.0) [facility] MCH 27.4 pg (27.0-32.0) [facility] MCHC 32.7 g/dL (32.0-36.0) [facility] RDW 16.6 % (10.5-14.5) H [facility] PLT 173 10*3/uL (150-450) [facility] MPV 9.1 fL (7.1-10.7) [facility] NEUT % 71.2 % (35.0-75.0) [facility] LYMPH % 8.1 % (16.0-52.0) L [facility] MONO % 12.1 % (0.0-8.0) H [facility] EOS % 6.5 % (0.0-5.0) H [facility] BASO % 2.1 % (0.0-4.0) [facility] NEUT # 2.5 10*3/uL (1.8-7.7) [facility] LYMPH # 0.3 10*3/uL (1.2-4.8) L [facility] MONO # 0.4 10*3/uL (0.0-0.8) [facility] Eosinophils [#/volume] in Blood by Automated count 0.2 10*3/uL (0.0-0 .5) [facility] BASO # 0.1 10*3/uL (0.0-0.2) [facility] ID Date Data Source [id number] 03/27/2021 01:51:59 PM EDT [facility] CT THORAX WITH CONTRAST [id number] RESUL TInterpreted by:Hilario Bautista, MDCT thorax.INDICATION: Hepatocellular carcinoma.TECHNIQUE: A CT of the thorax was performed. 1 mm axial images were made after the intravenous administration of 50 MLO of Omnipaque 300. There are no prior examinations for comparison. This study is technically limited by motion artifact. Automated dose reduction techniques and/or adjustment according to patient size were used.FINDINGS: Airway patency is demonstrated through the segmental level.There is an ill- defined less than 5 mm in diameter roughly nodular opacity in the left upper lobe on image #51. A small less than 5 mm pleural-based opacity is seen in the left upper lobe on image #105. There is no evidence of a left-sided pleural effusion.Scarring or subsegmental atelectasis is present in the right upper lobe. There is no evidence of a right-sided pleural effusion.There are degenerative changes in the thoracic spine.The thyroid gland is grossly unremarkable.Scattered small mediastinal lymph nodes are identified. There is no evidence of intrathoracic lymphadenopathy.The thoracic esophagus is grossly unremarkable. There is a small to moderate amount of free fluid in the upper abdomen the adrenal glands are unremarkable. Multiple small stones or sludge is present in the gallbladder. The liver appears cirrhotic. The spleen is not seen in its entirety but does appear to be enlarged.Atherosclerotic changes are identified in the thoracic aorta and branch vessels. No filling defects are identified in the opacified large central pulmonary artery segments.IMPRESSION: Ill-defined roughly nodular 5 mm in diameter opacity left upper lobe of indeterminate significance. Small less than 5 mm in diameter opacity in the left upper lobe as well also of uncertain significance. Possibility of early metastases cannot be excluded. There is no evidence of pleural effusion. There is no evidence of intrathoracic lymphadenopathy.The liver is cirrhotic. Free fluid is present in the upper abdomen. There is probable splenomegaly.This document has been electronically signed by Hilario Bautista MD on 03/27/2021 1:49 PM Name Value Range Interpretation Code Description Data Ema rce(s) Supporting Document(s) ID Date Data Source [id number] 03/20/2021 09:37:00 AM EDT [facility] ([facility] Name Value Range Interpretation Code Description Data Ema rce(s) Supporting Document(s) Glucose [Presence] in Urine Laboratory test result [facility] ([facility] [place]) ostomy bag Protein [Presence] in Urine by Test strip Laboratory test result [facility] ([facility]) ostomy bag Ua Leuko Laboratory test result [facility] ([facility]) ostomy bag Ua Nitrite Laboratory test result [facility] [place] ostomy bag Blood [Presence] in Urine by Visual Laboratory test result [facility] ([facility]) ostomy bag Ketones [Presence] in Urine by Test strip Laboratory test result [facility] ([facility]) ostomy bag Color of Urine Laboratory test result [facility] ([facility]) ostomy bag Clarity of Urine Laboratory test result [facility] ([facility] [place]) ostomy bag Ua Specific [place] 1.010 1.003-1.030 MEDE NT ([facility] [place]) ostomy bag pH of Urine by Test strip 7.0 5.0-7.5 [facility] ([facility]) ostomy bag Bilirubin.total [Presence] in Urine by Test strip Laboratory test res ult [facility] ([facility]) ostomy bag Urobilinogen [Mass/volume] in Urine by Test strip 0.2 E.U./dL 0.0-1.0 [facility] ([facility]) ostomy bag ID Date Data Source [id number] 03/15/2021 03:57:13 PM EDT [facility] Name Value Range Interpretation Code Description Data Ema rce(s) Supporting Document(s) Progress Note [facility] [id number]/YKMvnSNOel9UlPHedKOr2QDzsVYFqN4VdJNR6tE7qHOK8LStIGmHbEeHyARK9 lbm [file] AgICAgICAgICAgICAgICAgICAgICAgICAgICAgICAgICAgICAgICAgICAgICAgICAgICAgICAgDQogIC AgICAgICAgICAgICAgICAgICAgICAgICAgICAgICAg ICAgICAgICAgICAgICAgICAgICAgICAgICAgICAgICAgICAgICAgICAgICAgICAgICAgICAgICAgICAg ICAgICAgDQogICAgICAgICAgICAgICAgICAgICAgICAgICAgICAgICAgICAgICAgICAgICAgICAgICAg ICAgICAgICAgICAgICAgICAgICAgICAgICAgICAgIC AgICAgICAgICAgICAgICAgDQogICAgICAgICAgICAgICAgICAgICAgICAgICAgICAgICAgICAgICAgIC AgICAgICAgICAgICAgICAgICAgICAgICAgICAgICAgICAgICAgICAgICAgICAgICAgICAgICAgICAgDQ ogICAgICAgICAgICAgICAgICAgICAgICAgICAgICAg ICAgICAgICAgICAgICAgICAgICAgICAgICAgICAgICAgICAgICAgICAgICAgICAgICAgICAgICAgICAg ICAgICAgICAgDQogICAgICAgICAgICAgICAgICAgICAgICAgICAgICAgICAgICAgICAgICAgICAgICAg ICAgICAgICAgICAgICAgICAgICAgICAgICAgICAgIC AgICAgICAgICAgICAgICAgICAgDQogICAgICAgICAgICAgICAgICAgICAgICAgICAgICAgICAgICAgIC AgICAgICAgICAgICAgICAgICAgICAgICAgICAgICAgICAgICAgICAgICAgICAgICAgICAgICAgICAgIC AgDQogICAgICAgICAgICAgICAgICAgICAgICAgICAg ICAgICAgICAgICAgICAgICAgICAgICAgICAgICAgICAgICAgICAgICAgICAgICAgICAgICAgICAgICAg ICAgICAgICAgICAgDQogICAgICAgICAgICAgICAgICAgICAgICAgICAgICAgICAgICAgICAgICAgICAg ICAgICAgICAgICAgICAgICAgICAgICAgICAgICAgIC AgICAgICAgICAgICAgICAgICAgICAgDQogICAgICAgICAgICAgICAgICAgICAgICAgICAgICAgICAgIC AgICAgICAgICAgICAgICAgICAgICAgICAgICAgICAgICAgICAgICAgICAgICAgICAgICAgICAgICAgIC BqQGNvJZx1W9ckAZOmHGZpBZ5mOYd6Xg7+DQoNCmVu BOP7atVbxC0FGZ7sx8GuHQwmPKJni6IuLDl9OG9AIHEtGZpeMG0HRBrrtv4BDASxCATfrBLDn4mmYfBm MYX4BFRmGjoeVB3QQQFlZ7whmiOcAZAxYDFTAH2PInYuX8MrvE17OZOBFf7+ADdbikPvPmrPTdB2XKNi f7DuNHl7DQ1CCJPjDqgch5SeRxIiPUYXKTutIO4TEB C0UNHbIBRdPh3ZKWOzR147ydDsJV5EEo9QIjOpKZ1mok8NMeOzJCTeCcsNXqo8GEjqEQ3JbHIwESrRvr 2vpgOzqmYNn6AmruMikQFZRTVkjVbxce7uF69tKBxka6kcLUABYIMcnBCiMW7gCE0yQWDtHJBrNcE9HN VGOU6SGRBvDPUxdHPhQZXyXQYPYH4TVThkAUZ2IOSp khWsoECgQFeuAR9FUCIcbtIsTGgmNBNYYVm+Ky5BRV8dq6UkHJucZYTzET8rux4DCAwCCyZmD1P8vTKn G3D2MFssAh6GXDTnGMKtYLbjXRERQKdxBN4LEL3bjpI8KK1GtGRkJCUpEUYqyFNnRZj6H14jiNTgQLul MJ7OBLR+Earl+Pt0ITKXzQCMhSZCpSoOuJXTEGaVdZ4 QuX2SZv4FrZ4NiUA73yWlrxiQjIAloAT2HDQ8pDURoVPWSTU3GgSKvnD7byvOiEHOzGGTJDkWsG99hsE TeRGKnWRJ8FUDjWo6BAFGkJ3YtvsXnmRvmmmCrFVDoVLTNYS9GPFilxmYhbKOnyEsoWK41zQblZK6FFg 9KNjJxXT7hkt7CkHWcBi6JRGMzGh0LEEXrTQFmZAPz YRF5WNOaAjPmASdbNMYhEJAsAYY2EMHhMNVdAF3TExZuHHWbMAvyFVznTGEsZYUjte3UREVfIIOwDMAs UqBjXNLkUAOoKDacSYKgBGAhUJE8RCNkTKQsDI1FEbNqDBHeEHDsLVPgOIGaAWFiko4BPLOcECTpTqVm LYHqNVXjGKNpPPgtLGKuKKCvOuu8HEQnNAWyXA2VJo FaJZQhDRX7XyHsOBIdOHUitj4OTUTmLSXpLde6TdSuEAFiJLGrYSutEDPcWTU1BiPaVSYmEUGoBD9YCz YpGZZaDCS0ANJjZMFtIETspe0UEKMqMRLeHHZzIKFxQZSnUXYoSBojERGgEDJ8STI7XCWbYBPyBA5QUi MuSBXiXKM2XsIsJBFdWWKfed5BFVCzXLIzMtx3IAUj JDIfFWHwFLvmPTDhGTK3XpFqBEWwXWElXV1VQsOvHQPoHUdfJjEfKCEhAFAwsj5MRFFuSOVaRme4VuHe NDCmXULtDSzpFIOjSFR1JnH9UPRbGITtYP1VFcHfAIGzDVllPdQbQHZmDLFwgx1BQCUnQIGwCAJyRRFj VNRaYJXaBYz0jjNpxRSeHLw0TB8RY4LlpnVtWvDLPp 8Qv154JNTwUKBoZv5HF6ooJe1xZJRlXEQGRx7BRVt3JQcyTUPzAGKxIIVeP2EbKQIeY6SeMfBfWKT5QS E2NDc+ZHthXDT0ILHvSMXwEEVvHXL9IZU7DQE0GVI3IFA9HBS7Bl0vKUOXIc8+DQpzdGFydHhyZWYNCj K2Kux9QHhzQGVAAs9B ID Date Data Source [id number] 03/12/2021 12:24:23 PM EDT [facility] Name Value Range Interpretation Code Description Data Ema rce(s) Supporting Document(s) POC GLUCOSE 76 mg/dL (70-99) [facility] NOTIFIED NURSEPERFORMED BY CLINICAL S TAFF ID Date Data Source [id number] 03/12/2021 12:18:21 PM EDT [facility] Name Value Range Interpretation Code Description Data Ema rce(s) Supporting Document(s) POC GLUCOSE 76 mg/dL (70-99) [facility] PERFORMED BY CLINICAL STAFF ID Date Data Source [id number] 03/12/2021 08:29:05 AM EDT [facility] Name Value Range Interpretation Code Description Data Ema rce(s) Supporting Document(s) SODIUM 142 mmol/L (136-145) [facility] POTASSIUM 3.9 mmol/L (3.6-5.2) [facility] CHLORIDE 112 mmol/L (100-108) H [facility] CO2 24 mmol/L (22-31) [facility] ANION GAP 6 mmol/L (7-16) L [facility] UREA NITROGEN 20 mg/dL (7-24) [facility] CREATININE 1.06 mg/dL (0.80-1.30) [facility] BUN/CREAT RATIO 18.9 RATIO (10.0-20.0) [facility] GLUCOSE 74 mg/dL (70-99) [facility] CALCIUM 9.2 mg/dL (8.4-10.2) [facility] GFR >60 ml/min/1.73m2 (>59) [facility] GFR ( AMER) >60 ml/min/1.73m2 (>59) [facility] GFR INTERPRETATION [facility] --NORMAL KIDNEY FUNCTION OR MILD DISEASE - GFR >OR= 60CHRONIC KIDNEY DISEASE - GFR 15 - 59RENAL FAILURE - GFR <15 Est. GFR calculation based on the MDRDstudy equation, which assumes a steadystate for creatinine. Est. GFR should notbe used for medication dosing. ID Date Data Source [id number] 03/12/2021 07:46:51 AM EDT [facility] Name Value Range Interpretation Code Description Data Ema rce(s) Supporting Document(s) WBC 3.4 10*3/uL (4.1-11.0) L [facility] [place] RBC 2.76 10*6/uL (4.60-6.10) L [facility] HGB 7.8 g/dL (13.5-18.0) L [facility] HCT 23.4 % (41.0-53.0) L [facility] MCV 84.9 fL (80.0-95.0) [facility] MCH 28.1 pg (27.0-32.0) [facility] MCHC 33.1 g/dL (32.0-36.0) [facility] RDW 16.0 % (10.5-14.5) H [facility] PLT 152 10*3/uL (150-450) [facility] MPV 8.2 fL (7.1-10.7) [facility] NEUT % 73.0 % (35.0-75.0) [facility] LYMPH % 6.1 % (16.0-52.0) L [facility] MONO % 13.2 % (0.0-8.0) H [facility] EOS % 5.8 % (0.0-5.0) H [facility] BASO % 1.9 % (0.0-4.0) [facility] NEUT # 2.5 10*3/uL (1.8-7.7) [facility] LYMPH # 0.2 10*3/uL (1.2-4.8) L [facility] MONO # 0.4 10*3/uL (0.0-0.8) [facility] Eosinophils [#/volume] in Blood by Automated count 0.2 10*3/uL (0.0-0 .5) [facility] BASO # 0.1 10*3/uL (0.0-0.2) [facility] ID Date Data Source [id number] 03/12/2021 05:39:53 AM EDT [facility] Name Value Range Interpretation Code Description Data Ema rce(s) Supporting Document(s) POC GLUCOSE 78 mg/dL (70-99) [facility] NOTIFIED NURSEPERFORMED BY CLINICAL S TAFF ID Date Data Source [id number] 03/11/2021 11:38:09 PM EDT [facility] Name Value Range Interpretation Code Description Data Ema rce(s) Supporting Document(s) POC GLUCOSE 84 mg/dL (70-99) [facility] NOTIFIED NURSEPERFORMED BY CLINICAL S TAFF ID Date Data Source [id number] 03/12/2021 10:21:00 AM EDT [facility] DATE [facility]: [facility] WITH [facility] WITHOUT IV CONTRAST CLINICAL HISTORY: PORTAL VEIN THROMBOSIS COMPARISON: 03/10/2021 CT urogram TECHNIQUE: Multisequence, multiplanar MRI images were obtained of the abdomen with and without contrast. This examination was performed with 18 mL ProHance IV contrast from a 20 mL bottle. FINDINGS: Suboptimal evaluation due to difficulty breath holding. Lung bases: Small fluid containing hiatal hernia. Liver: Atrophic. Cirrhosis. Evaluation is limited due to motion artifact. There is ill-defined signal abnormality in the right hepatic lobe with diffuse mild T2 hyperintense and T1 hypointense signal. No definite areas of hyperenhancement, but there are areas of washout, some with a branching appearance in segment 8, consistent with thrombosed vessels. Other discrete lesions with washout include a 1.2 cm lesion in segment 8, 1 cm lesion in segment 6/7 and a 2.8 cm lesion in segment 6/6. 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 There is definitively bland thrombus in the main portal vein adjacent to the portal splenic confluence, which does not show enhancement. However, the more central and right portal vein thrombus shows enhancement, raising concern for tumor thrombus. Bile Ducts: No intrahepatic or extrahepatic bile duct dilation is noted. Gallbladder: Cholelithiasis. Nonspecific wall edema in the setting of cirrhosis and ascites. Pancreas and Pancreatic Duct: Normal. No pancreatic duct dilation. Spleen: Enlarged at 17.1 cm craniocaudal. Adrenal Glands: Normal. Kidneys: Mild bilateral hydronephrosis and ureteronephrosis, left more than right. Simple bilateral cysts measuring up to 0.8 cm. No follow-up imaging is recommended per consensus guidelines based on imaging criteria. Peritoneum/Mesentery/Omentum: There is a moderate amount of ascites.. Lymph Nodes: No abdominal lymphadenopathy is seen. Bowel: Grossly normal. Vessels: Hepatic vasculature as above. Right lower quadrant mesenteric collaterals, which extend along the ileal conduit. Bones: Unremarkable. Other Findings: Right lower quadrant ileal conduit. IMPRESSION: 1. Cirrhosis. Enhancement within the right portal vein thrombus, which raises concern for tumor thrombus. There is ill-defined signal in the right hepatic lobe with several areas of washout. Findings are concerning for hepatocellular carcinoma. Correlate with AFP. Additional bland thrombus in the main portal vein adjacent to the portal splenic confluence.2. Evidence of portal hypertension with splenomegaly, moderate ascites and right lower quadrant mesenteric collaterals which extend along the ileal conduit.3. Mild bilateral hydronephrosis, left greater than right. Professional interpretation performed at [facility] .End of diagnostic report for accession: [id number] Interpreted: Shahnaz Ramos MDTranscribed: 03/12/2021 10:01 AMSigned: 03/12/2021 10:21 AM Shahnaz Ramos MD [facility] # [id number] [facility] # [id number] Name Value Range Interpretation Code Description Data Mea rce(s) Supporting Document(s) ID Date Data Source [id number] 03/11/2021 06:13:30 PM EDT [facility] Name Value Range Interpretation Code Description Data Ema rce(s) Supporting Document(s) POC GLUCOSE 96 mg/dL (70-99) [facility] PERFORMED BY CLINICAL STAFF ID Date Data Source [id number] 03/12/2021 03:16:01 PM EDT [facility] Name Value Range Interpretation Code Description Data Ema rce(s) Supporting Document(s) AFP-TUMOR MARKER @ 31.7 ng/mL (<6.0) H [facility] ASSAY BY IMMUNOCHEMILUMINOMETRIC ASSAYON THE SIEMENS IMMULITE 2000 XPi. VALUESOBTAINED WITH DIFFERENT METHODS OR KITSCANNOT BE USED INTERCHANGEABLY FOR PATIENTMONITORING. RESULTS CANNOT BE INTERPRETEDAS ABSOLUTE EVIDENCE OF THE PRESENCE ORABSENCE OF MALIGNANCY. THE TEST IS NOTINTERPRETABLE IN . AFP CAN BE INCREASED IN A VARIETY OFBENIGN DISEASES. SPECIFICITY FOR THE DETECTION OF MALIGNANCY INCREASES WITHINCREASING LEVELS. ID Date Data Source [id number] 03/11/2021 03:39:07 PM EDT [facility] Name Value Range Interpretation Code Description Data Ema rce(s) Supporting Document(s) APTT 29.6 s (22.0-34.3) [facility] ID Date Data Source [id number] 03/11/2021 03:39:07 PM EDT [facility] Name Value Range Interpretation Code Description Data Ema rce(s) Supporting Document(s) PT 12.2 s (9.2-11.9) H [facility] INR 1.17 [facility] SUGGESTED THERAPEUTIC RANGES USING INR F ORSTABILIZED ANTICOAGULATED PATIENTS:STANDARD DOSE THERAPY INR 2.0-3.0 DVT, PE, PREVENT DVT OR EMBOLISMHIGH DOSE THERAPY INR 2.5-3.5 PREVENT EMBOLISM FROM MECHANICAL HEART VALVE ID Date Data Source [id number] 03/11/2021 03:32:09 PM EDT [facility] [place] Name Value Range Interpretation Code Description Data Ema rce(s) Supporting Document(s) WBC 4.1 10*3/uL (4.1-11.0) [facility] [place] RBC 2.98 10*6/uL (4.60-6.10) L [facility] HGB 8.4 g/dL (13.5-18.0) L [facility] HCT 25.6 % (41.0-53.0) L [facility] PATIENT TRANSFUSED MCV 85.7 fL (80.0-95.0) [facility] MCH 28.2 pg (27.0-32.0) [facility] MCHC 32.9 g/dL (32.0-36.0) [facility] RDW 15.9 % (10.5-14.5) H [facility] PLT 177 10*3/uL (150-450) [facility] MPV 8.4 fL (7.1-10.7) [facility] ID Date Data Source [id number] 03/11/2021 12:40:27 PM EDT [facility] [place] Name Value Range Interpretation Code Description Data Ema rce(s) Supporting Document(s) POC GLUCOSE 99 mg/dL (70-99) [facility] PERFORMED BY CLINICAL STAFF ID Date Data Source [id number] 03/11/2021 07:56:19 AM EDT [facility] [place] Name Value Range Interpretation Code Description Data Ema rce(s) Supporting Document(s) SODIUM 140 mmol/L (136-145) [facility] POTASSIUM 4.0 mmol/L (3.6-5.2) [facility] CHLORIDE 110 mmol/L (100-108) H [facility] CO2 25 mmol/L (22-31) [facility] ANION GAP 5 mmol/L (7-16) L [facility] UREA NITROGEN 17 mg/dL (7-24) [facility] CREATININE 0.98 mg/dL (0.80-1.30) [facility] BUN/CREAT RATIO 17.3 RATIO (10.0-20.0) [facility] GLUCOSE 80 mg/dL (70-99) [facility] CALCIUM 9.5 mg/dL (8.4-10.2) [facility] GFR >60 ml/min/1.73m2 (>59) [facility] GFR ( AMER) >60 ml/min/1.73m2 (>59) [facility] GFR INTERPRETATION [facility] --NORMAL KIDNEY FUNCTION OR MILD DISEASE - GFR >OR= 60CHRONIC KIDNEY DISEASE - GFR 15 - 59RENAL FAILURE - GFR <15 Est. GFR calculation based on the MDRDstudy equation, which assumes a steadystate for creatinine. Est. GFR should notbe used for medication dosing. ID Date Data Source [id number] 03/11/2021 07:38:12 AM EDT [facility] Name Value Range Interpretation Code Description Data Ema rce(s) Supporting Document(s) WBC 3.1 10*3/uL (4.1-11.0) L [facility] [place] RBC 2.46 10*6/uL (4.60-6.10) L [facility] HGB 6.9 g/dL (13.5-18.0) L [facility] RESULT(S) CALLED TO AND READ BACK MEGAN [place] ON 5SIR AT 0736 ON 03/11/21 [place] [id number] HCT 20.7 % (41.0-53.0) L [facility] MCV 84.4 fL (80.0-95.0) [facility] MCH 27.9 pg (27.0-32.0) [facility] [place] [facility] MCHC 33.0 g/dL (32.0-36.0) [facility] [place] [facility] RDW 16.0 % (10.5-14.5) H [facility] [place] PLT 154 10*3/uL (150-450) [facility] [place] MPV 8.6 fL (7.1-10.7) [facility] [place] ID Date Data Source [id number] 03/11/2021 05:49:03 AM EDT [facility] [place] Name Value Range Interpretation Code Description Data Ema rce(s) Supporting Document(s) POC GLUCOSE 89 mg/dL (70-99) [facility] [place] NOTIFIED NURSEPERFORMED BY CLINICAL S TAF ID Date Data Source [id number] 03/11/2021 12:23:19 AM EDT [facility] [place] Name Value Range Interpretation Code Description Data Ema rce(s) Supporting Document(s) POC GLUCOSE 105 mg/dL (70-99) H [facility] [place] NOTIFIED NURSEPERFORMED BY CLINICAL S TAFF ID Date Data Source [id number] 03/10/2021 04:00:00 PM EDT [facility] Name Value Range Interpretation Code Description Data Ema rce(s) Supporting Document(s) SARS coronavirus 2 RNA [Presence] in Res piratory specimen by JUSTEN with probe detection NOT DETECTED [facility] This lab was reported by [facility]. ID Date Data Source [id number] 03/11/2021 01:47:06 PM EDT [facility] [place] Name Value Range Interpretation Code Description Data Ema rce(s) Supporting Document(s) SPECIMEN DESCRIPTION [facility] [place] COVID 19 RESULT (NDET) [facility] [place] NEGATIVE COVID-19 RESULTS DONOT PRECLUDE COVID-2019 INFECTION ANDSHOULD NOT BE USED THE SOLE BASISFOR PATIENT MANAGEMENT DECISIONS. COMMENT [facility] THE [place] FDA HAS MADE THIS TEST AVAILABL EUNDER AN EMERGENCY USE AUTHORIZATION(EUA) FOR THE DETECTION AND/OR DIAGNOSISOF THE VIRUS THAT CAUSES COVID-19.THIS ASSAY AMPLIFIES AND DETECTS [employer] USING CREDIT COLLECTION ASSOCIATE- MEDIATEDAMPLIFICATIONTESTING PERFORMED ON [employer] FIRST TEST [facility] SYMPTOMATIC [facility] [place] DATE OF SYMPT ONSET [facility] HOSPITALIZED [facility] [place] [facility] [place] CONGREGATE CARE SET [facility] [place] [facility] [place] ID Date Data Source [id number] 03/12/2021 12:38:20 AM EDT [facility] [place] PATIENT ABO/Rh A POSITIVEANT IBODY SCREEN NEGATIVESPEC EXP DATE 03/13/2021TESTING SITE PERFORMED AT [address] [place], [place] [id number] BANK COMMENT BLOOD TYPE CONFIRMED.UNIT NUMBER [id number] COMPONENT TYPE LEUKOPOOR RED CELLSUNIT DIVISION 00STATUS OF UNIT TRANSFUSEDUNIT TAG COMMENT EMERGENCY RELEASETRANSFUSION STATUS OK TO TRANSFUSECROSSMATCH RESULT COMPATIBLEUNIT NUMBER [id number] COMPONENT TYPE LEUKOPOOR RED CELLSUNIT DIVISION 00STATUS OF UNIT TRANSFUSEDTRANSFUSION STATUS OK TO TRANSFUSECROSSMATCH RESULT COMPATIBLE Name Value Range Interpretation Code Description Data Ema rce(s) Supporting Document(s) ID Date Data Source [id number] 03/10/2021 04:51:00 PM EDT [facility] DATE OF EXAM: 03/10/2021XAM: CT ABDOMEN AND PELVIS WITHOUT AND WITH IV CONTRAST. INDICATION: BLEEDING FROM ILEAL CONDUIT COMPARISON: Outside 02/15/2021 CT (report not available). 01/31/2021 CT urogram. TECHNIQUE: Axial CT scanning of the abdomen and pelvis was performed without and with intravenous contrast in the nephrographic and delayed renal excretory phases. Coronal and sagittal reformatted images were obtained. One or more of the following dose reduction techniques were utilized in effectively lowering the radiation dose for this examination: Automated Exposure Control, Adjustment of the mA and/or kV according to patient size, or Iterative reconstruction. CONTRAST: 100 mL Omnipaque 300 FINDINGS: Lung Bases: Small hiatal hernia. Liver: Cirrhosis. 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 It is nearly occlusive in the main portal vein. The right portal vein is completely occluded and shows density gre ater than that of the more bland appearing thrombus in the main portal vein. There is also extension into the left portal vein, new from 01/31/2021. Mild heterogeneous enhancement.Bile Ducts: Normal caliber.Gallbladder: Cholelithiasis. Pancreas: Unremarkable.Spleen: Enlarged.Adrenals: Unremarkable. Kidneys: The kidneys are symmetric in size. No renal calculi. There is symmetric enhancement. No focal mass. Mild bilateral hydronephrosis. Symmetric contrast excretion. No filling defect seen within either central renal collecting system. Ureters: Status post ileal conduit. Suboptimal opacification of the ureters, particularly on the right. No filling defect seen within the well opacified portions.Bladder: Status post cystectomy with right lower quadrant ileal conduit. There is a parastomal hernia containing multiple prominent mesenteric collateral vessels, which course near the conduit wall. No significant contrast excretion on delayed phase images within the conduit. Stomach and Bowel: Colonic diverticulosis. Large colonic stool burden. Small bowel anastomosis in the right abdomen. No bowel dilation. Appendectomy. Peritoneum/Retroperitoneum: Small to moderate ascites. Reproductive Organs: Prostatectomy. Lymph Nodes: No adenopathy.Vessels: Portal vein thrombus, as above. The superior mesenteric and splenic veins are patent. Atherosclerotic changes. Mesenteric collaterals which extend into the parastomal hernia, as above. Soft Tissues: Anasarca.Bones: Degenerative changes of the spine. IMPRESSION: 1. Right lower quadrant ileal conduit. Multiple prominent mesenteric collaterals, which are likely related to portal hypertension. These extend into a peristomal hernia and course along the wall of the ileal conduit. These could potentially cause of bleeding. 2. No renal calculi. Suboptimal contrast excretion on the delayed phase images. No filling defects in the opacified portions of the renal collecting systems. Mild bilateral hydronephrosis, left greater than right. 3. Cirrhosis with evidence of portal hypertension, including splenomegaly and small to moderate ascites. 4. 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 Portions of the thrombus appear do not appear bland, raising concern for tumor thrombus. Correlate with AFP. Recommend contrast-enhanced MRI of the abdomen to exclude hepatocellular carcinoma. Professional interpretation performed at [facility] .End of diagnostic report for accession: [id number] Interpreted: Shahnaz Ramos MDTranscribed: 03/10/2021 04:36 PMSigned: 03/10/2021 04:51 PM Shahnaz Ramos MD [facility] # [id number] BILL # [id number] Name Value Range Interpretation Code Description Data Ema rce(s) Supporting Document(s) ID Date Data Source [id number] 03/10/2021 02:00:09 PM EDT [facility] Name Value Range Interpretation Code Description Data Ema rce(s) Supporting Document(s) SODIUM 137 mmol/L (136-145) [facility] POTASSIUM 4.2 mmol/L (3.6-5.2) [facility] CHLORIDE 107 mmol/L (100-108) [facility] CO2 23 mmol/L (22-31) [facility] ANION GAP 7 mmol/L (7-16) [facility] UREA NITROGEN 20 mg/dL (7-24) [facility] CREATININE 1.15 mg/dL (0.80-1.30) [facility] BUN/CREAT RATIO 17.4 RATIO (10.0-20.0) [facility] GLUCOSE 198 mg/dL (70-99) H [facility] CALCIUM 9.7 mg/dL (8.4-10.2) [facility] GFR >60 ml/min/1.73m2 (>59) [facility] GFR ( AMER) >60 ml/min/1.73m2 (>59) [facility] GFR INTERPRETATION [facility] --NORMAL KIDNEY FUNCTION OR MILD DISEASE - GFR >OR= 60CHRONIC KIDNEY DISEASE - GFR 15 - 59RENAL FAILURE - GFR <15 Est. GFR calculation based on the MDRDstudy equation, which assumes a steadystate for creatinine. Est. GFR should notbe used for medication dosing. ID Date Data Source [id number] 03/10/2021 02:00:09 PM EDT [facility] [place] Name Value Range Interpretation Code Description Data Ema rce(s) Supporting Document(s) TOTAL PROTEIN 6.4 g/dL (6.4-8.2) [facility] ALBUMIN 2.1 g/dL (3.2-4.5) L [facility] GLOBULIN 4.3 g/dL (2.7-4.3) [facility] ALB/GLOB RATIO 0.5 RATIO [facility] BILIRUBIN,TOTAL 0.6 mg/dL (0.0-1.0) [facility] PLEASE NOTE:Total bilirubin results may be falselyelevated in patients taking Eltrombopag. BILIRUBIN,CONJUGATED 0.3 mg/dL (0.0-0.3) [facility] BILIRUBIN,UNCONJ. 0.3 mg/dL (0.0-0.7) [facility] ALKALINE PHOSPHATASE 150 U/L (45-117) H [facility] AST (SGOT) 67 U/L (11-39) H [facility] ALT (SGPT) 59 U/L (12-78) [facility] ID Date Data Source [id number] 03/10/2021 01:44:30 PM EDT [facility] [place] Name Value Range Interpretation Code Description Data Ema rce(s) Supporting Document(s) PT 12.2 s (9.2-11.9) H [facility] [place] INR 1.17 [facility] [place] SUGGESTED THERAPEUTIC RANGES USING INR F ORSTABILIZED ANTICOAGULATED PATIENTS:STANDARD DOSE THERAPY INR 2.0-3.0 DVT, PE, PREVENT DVT OR EMBOLISMHIGH DOSE THERAPY INR 2.5-3.5 PREVENT EMBOLISM FROM MECHANICAL HEART VALVE ID Date Data Source [id number] 03/10/2021 01:33:49 PM EDT [facility] [place] Name Value Range Interpretation Code Description Data Ema rce(s) Supporting Document(s) WBC 4.1 10*3/uL (4.1-11.0) [facility] [place] RBC 2.70 10*6/uL (4.60-6.10) L [facility] HGB 7.3 g/dL (13.5-18.0) L [facility] HCT 23.1 % (41.0-53.0) [facility] MCV 85.4 fL (80.0-95.0) [facility] MCH 27.1 pg (27.0-32.0) [facility] MCHC 31.8 g/dL (32.0-36.0) L [facility] RDW 16.6 % (10.5-14.5) H [facility] PLT 164 10*3/uL (150-450) [facility] MPV 8.7 fL (7.1-10.7) [facility] NEUT % 73.6 % (35.0-75.0) [facility] LYMPH % 7.3 % (16.0-52.0) L [facility] MONO % 13.3 % (0.0-8.0) [facility] EOS % 4.7 % (0.0-5.0) [facility] BASO % 1.1 % (0.0-4.0) [facility] NEUT # 3.0 10*3/uL (1.8-7.7) [facility] LYMPH # 0.3 10*3/uL (1.2-4.8) L [facility] MONO # 0.5 10*3/uL (0.0-0.8) [facility] Eosinophils [#/volume] in Blood by Automated count 0.2 10*3/uL (0.0-0 .5) [facility] BASO # 0.0 10*3/uL (0.0-0.2) [facility] ID Date Data Source [id number] 03/04/2021 08:31:14 PM EDT [facility] Name Value Range Interpretation Code Description Data Ema rce(s) Supporting Document(s) Progress Note [facility] KDWQFp3nDfORVvPn61/GVLrdSWWml3FwNRsaYAl4TNdgXVThV5TtWZR5tU6lQBR0KOcFYrIdPbYcCYM4 lbm [file] ICAgICAgICAgICAgICAgICAgICAgICAgICAgICAgIC GeXRUrEFPdDGAqYALaUEQjBMRqDPPrXLWiOUHjZAVzZCPaPFYuNEWdJMMxYKJrCXCbNUFrZG2JYQUvQM AgICAgICAgICAgICAgICAgICAgICAgICAgICAgICAgICAgICAgICAgICAgICAgICAgICAgICAgICAgIC AgICAgICAgICAgICAgICAgICAgICAgICAgICAgICAg FVKbBO7IDEMqTUWiELQdCIPyXJKnFDGdQEVpQKSuPJYdHIMjIZXdNSTpXCJbRVOzDFBeJCOfCLOmCTKl HYGsNURbYFZqFVFaJKItUTKhDMUoANUyBGPnYEYrCZHdJITbERSwFOVyEBJnZI7LOOWkAHXlQLApSJWr ICAgICAgICAgICAgICAgICAgICAgICAgICAgICAgIC UrXJUxJFDqJTLcXYAcYWSyEHBoUKTkMCMkEFRdHQGrMXSoYDVxZWAkZLCxEHBcXZSiRWQyTDAmIG2DQE AgICAgICAgICAgICAgICAgICAgICAgICAgICAgICAgICAgICAgICAgICAgICAgICAgICAgICAgICAgIC AgICAgICAgICAgICAgICAgICAgICAgICAgICAgICAg DUZtBBZrAJ9KJQBfGCQpRLImRZBxUGIyHTBiWUIiRBFaJYCuEAWbELKgNNKhMAYqMEObKJYeKAQpIVGj IFIyYQBaWCRmMSJoUGSgQVLmZKBxSJIhAHKzLCOaHMQqFBOpCNEeTVUbZVXzPPTxDK7HZXKzSKQpKCUs ICAgICAgICAgICAgICAgICAgICAgICAgICAgICAgIC AgICAgICAgICAgICAgICAgICAgICAgICAgICAgICAgICAgICAgICAgICAgICAgICAgICAgICAgICAgIA 0KICAgICAgICAgICAgICAgICAgICAgICAgICAgICAgICAgICAgICAgICAgICAgICAgICAgICAgICAgIC AgICAgICAgICAgICAgICAgICAgICAgICAgICAgICAg IMFaPERtMSOmTO4LHRMqFQIwFPKyRRTsUPZzIWBlCDSgNAWoYSQjBMSiYYPgMBYcWXWwZRZqPLXgVPTh KBNeJNFnYAPpLGKaDQRqGEBnZOZvVXGnPNWjNAOuJJEpPRNyRAWcAXSbVGBgOVIvJIMlVP8ZFA65wDGt t3E6DHQvBF8cqec/Lj0FWQbajjRvuFUwDG7QYdXaNG 1jnl5FQqNcNW7qrj1TVFpZWdElI5I7gFDdDFDlZGNEPlSvU82sPKtuLs03DPdpSVBaCeYhYZl9Lq3VJf HqF6stVSOvNgV8QZNzPjPhBIohAC3Ef4XpvSPxAOw+Zy8QZN5ec0GvQKfyIDJdNA6odf1HUTgPHaWtI0 PdurW4KZPgPZTjWe0BXMAcIXNjmUJxJLSbGGKSRmQv U9SziL76UVAQXn7+GSwxirFtCxqZAhHsNCFtc7EyQLx6UF8CHSAiTOk3vXUmMSIyL6Hpw2TpTy54UQYj SifxMkLgwEhqQ3S1oSuoLQ4wLCAqBB6wSL4vAPHdFIIoCoXlDNYPLQ8UWANbTSGedCTyRYKfCBATHM1H UGxhHVO7BKJlrpJlbQAbOPkkBT3HDSEbtdAoTPcqNQ BSDQo+Hi9QQP8ft9SsOIuhPRFuAK9vpc0NXHfYLqQfR3Q1dYDoK0M1XQpyWf9PZJRvFCZcTPstPOTGEA btHR6LLZ2wktE6DP4ZeBTqJBYmSLPiqBJiYZx5F59zpYEyBMxyMF6UQVW+Earl+Gh4WZRFbWSJzUNYuXg ZhBKKQXhDyL3DxL8PSr8YkB6XbGR06dOkrsxLnYEfp ZU1PZK3aRYMbBTJAGT2LiOEwnS4fbtQmZWUvLAJBGmPwY84scIZxXYUbQSU2NHLbGy9QJJJlG0MdgwNd mNeracElNNOtDMUNXF1GEKpiscOnvVOfmJmjFI33yUmoSM3XXq6LPdCnHH1szi8RjFLhIk9GPZXuJh8S BDMqNLXhHEDiLJE0STMlKaVtQDhgBBXzBGLuSMT2GS YlVSMfFR9BCsHvJEEeBYB4UzFcIMAyMMZqft0YNBPbPDPsLDWuUZPuCNLxWECbGIwqUSHmJSEsYNY4BI OmIDPdLB3TJrLyMDCyABR4AIlcPTVnZEGlor5EWYVeKLLgCWv9IBFlPDXiKNMrJUlmRDOgYJNtIVKyZP TqTYAmMV1QQhDiDERnCGLvXRXuQFVeVSGnfn0KSHIq NBAzEgB5AaXgFBJjGWAfJJoaXIJaOZK9JxC3MRViOQWsBA1LNoKqGDFrFXM2KQUcJHIcSGMjpj1XLUPl HEEaJWCpTlJpGKFcUCRzSXrbPZGtMHE0MEl1VOZqQGRcKO6YDzAgYQNsYXDuMUZoDYElQELshn3FYAUj KCUbOcZsXgNvCQAyBPVgMCsgGZSoIZN2KiArAZDrHA NyGY3CZdWbTTEhEWT4PQwfFIIbKVLoky3UGHVdVJKmBvF8VITmDVKfJIKsDQbmLVSdLYV6NdX3BZNmWR XlNX1NArDvMARdORj4QPtgAXLtSPZqig2QGATpLFRoKVg2IiUdYDEpUFUuZHa9msIyqQVrBRh2XI8CU7 LcpoGeRoBVKf6Hu060OTUzDQNpPz1TV2yuVc0hZQWa MWYLAt4HIQs9AqOqWLY5T2G0TzSaJDMiKCXrSdIeKrVlKNNmDZSoCYT+IDwyZWUwZDQzZThiNTIwNjA5 XLJlYlPpFOQfFsFfWZK8ZC8qSJCNOs7+FXjceHYhsKvjBVMFZqH1ELa1DRtdPZISAd9M ID Date Data Source [id number] 03/04/2021 03:34:49 PM EDT [facility] Name Value Range Interpretation Code Description Data Ema rce(s) Supporting Document(s) Progress Note [facility] HKUZKm4cFgVDMyJg79/EYEihRWOip0McNIfbSEu6QTdfYXBsH3GnDUQ5nK0oJSK6NBjNJlTaEiXuEOM3 lbm [file] ICAgICAgICAgICAgICAgICAgICAgICAgICAgICAgIC AgICAgICAgICAgICAgICAgDQogICAgICAgICAgICAgICAgICAgICAgICAgICAgICAgICAgICAgICAgIC AgICAgICAgICAgICAgICAgICAgICAgICAgICAgICAgICAgICAgICAgICAgICAgICAgICAgICAgICAgDQ ogICAgICAgICAgICAgICAgICAgICAgICAgICAgICAg ICAgICAgICAgICAgICAgICAgICAgICAgICAgICAgICAgICAgICAgICAgICAgICAgICAgICAgICAgICAg ICAgICAgICAgDQogICAgICAgICAgICAgICAgICAgICAgICAgICAgICAgICAgICAgICAgICAgICAgICAg ICAgICAgICAgICAgICAgICAgICAgICAgICAgICAgIC AgICAgICAgICAgICAgICAgICAgDQogICAgICAgICAgICAgICAgICAgICAgICAgICAgICAgICAgICAgIC AgICAgICAgICAgICAgICAgICAgICAgICAgICAgICAgICAgICAgICAgICAgICAgICAgICAgICAgICAgIC AgDQogICAgICAgICAgICAgICAgICAgICAgICAgICAg ICAgICAgICAgICAgICAgICAgICAgICAgICAgICAgICAgICAgICAgICAgICAgICAgICAgICAgICAgICAg ICAgICAgICAgICAgDQogICAgICAgICAgICAgICAgICAgICAgICAgICAgICAgICAgICAgICAgICAgICAg ICAgICAgICAgICAgICAgICAgICAgICAgICAgICAgIC AgICAgICAgICAgICAgICAgICAgICAgDQogICAgICAgICAgICAgICAgICAgICAgICAgICAgICAgICAgIC AgICAgICAgICAgICAgICAgICAgICAgICAgICAgICAgICAgICAgICAgICAgICAgICAgICAgICAgICAgIC AgICAgDQogICAgICAgICAgICAgICAgICAgICAgICAg ICAgICAgICAgICAgICAgICAgICAgICAgICAgICAgICAgICAgICAgICAgICAgICAgICAgICAgICAgICAg ICAgICAgICAgICAgICAgDQogICAgICAgICAgICAgICAgICAgICAgICAgICAgICAgICAgICAgICAgICAg ICAgICAgICAgICAgICAgICAgICAgICAgICAgICAgIC JwVHZjLXQwFYDpKISpYLFjJEZlHLWzZWYhUNd2O2iyZGOqYZHkQR5vMSo0Dj2+ISoELbTdYZD5eeMpdV 7AGH6nq4EcAMmfOJSbs4IwSVi4YC2QJHKyUZntIM3CKRxlbn3UFXRuYCTnjLDAx9erRdGrPTK8SZNxOt szCU5CCTXgF5jenwBfPZZkDANHGHkiNOGWDScwAIQS DSBhBFSmOjPbDImnOO5Fv1CyaGK0AGl+Xi1OKL3rb5XdEMspXARhVO8ewl4NCJhURtCvS5EvzuD3AZC8 AOQeWf9BDRNbTXYecDPkEUTzVPGUTvNrG6RkiY05IVHCHk6+KAljwdLgYhrUZwT1JFDoq0BqBUw6HB7L TXOwNVw9fXKnXDJbT5Gyp1NlKc66ERPeHjdjY7A4n9 QqeBUgVEchMhJ9THMgrBfrVMKiZRZzBBPrPG9hLEUlPMQfBvDfYGXOOW1DLJGxJRRuzBByWPXlWVYMFR 3RIVpjSQD1ERLudfQoqFSfXAvoOH6EPXGdxxFrZkuiPPGMSYc+Bg3QKU2dm2EzIDrxBXFzBT3fex4NIE xHRfNsH4F8xWFyP2J7TIceKh0XTRRoOEPmKwJvVHQQ IZsfQB7GUT5zwwV1RM6OzODkFAHcIHEgnNBlTFz6N28cpNCvLEbnMH5HFVS+Earl+Lf6OCXYwTLIzRAQu VnYrXHEAMdIyG6JwM2SIh6MvC6WpYZ21xPlitiHyWGdaOW8CVD8kDTRbOGLUUZ9QlLLttC4mlzRdRTPy MFFLPhIbQ09qcQAcWQUsZUP4KCVnMr9LSSWuM4Ebyv XppZgkimKhUHQvVAQFVJ6RSAzohcQtsAOfgDbsCO75jVgjHO7ZBx5IOyAkMY4oqg3GiATgDz5GXHOjLM 5HJDLvVWGpJXXlZTT3IULxHcZxLFfgFGGhKJRnRVG9EUEyFEAaRD6JNvXsFFXpEixkYOmqRHCpJEEesy 5DGEVoIRJeJWnkEKQlRRBbFOQxBMdgUKInWVWoWQJ3 AVZpNPLsKL9ZXnEzFZIcXFT7VWkiHLRjMXBfvz7VLOEiWFXuGZUaTAShICAuGUZqGTdvZPEeGCF1WFC7 YGBzJHFoWL6RBjBoYHCgPMA4NpDwGVHrLVRbwd5BCKYnDCTeFXk3YKKyTWOrZGLbLSvvGEIgFQPfYBE6 DIWqBREuOV5BNxDkGATfXDM4PUOnDRAsYNPfwv1CRY OcRFFrEjwzYNTyATDqTJQwBBguGISuPUHmYyB7WKLkZQOiTF2LVoBdPNRiMIG5WeOoPLUaUVSbyu9XBT HiUAHdVVC0VJZkSGJtUUUvYYhpDBWgPAZ1WCZ8ODZsWONyJT8LMwCbGQIlRCUlAGvuFMSnXIXmoy4UHG WuGOZpANQ2PtEvLUCoMVAnDSjpEGXpRQV6QJP7OFHz FGZtTR6ZXpPnPLFsUfirHLHqACAyTZOrgp8WCKUjXETgMoS7KWUqZZQsHTFrXPpsPLZjYBT0YrSiCWLn BYLjFO6AOrGzHTKwHef9AJypSVAoLSMtnm4XBDXuTYGvMAucJBWnVYQuRQQhNPgwDEUvNRT0BHd2LDSh BGJtBT3BGfMtOCDtYeywEmxpHZChZJQayu5WQPXzZW ZyVVN0VNRhIDBcTHXbEHpgJNLvLWSvHERgRVIsQWKiYY2ALlDaOUTzMpRaRHDqDNWpEUHfut0LKKXlOV GbZEF0DaTgUMKiMSVzIGw0nqJxaLLeGRe7IH0AW2GmwrSvXiMMPp9Uo473APZhOXVbUw1FS4mxWw4hKQ TxNIXMIw4JKNc2NNPkCDViPdktRPBrZZW1QWO2UvV5 TdFnWCdqGhh7DaD+XPccXsCtOQEfY9S5TmTaGnonGPU6FkA8TmD5WAWvEcusBJ2rNWGDYt9+DQpzdGFy wFgyKQVQHbTmOPCoNRtbOBUMFh7P ID Date Data Source [id number] 02/28/2021 12:47:10 PM EDT [facility] Name Value Range Interpretation Code Description Data Ema rce(s) Supporting Document(s) Progress Note [facility] UQGCEs5qBqPTSnJf84/NMNyjHYQyp7GvFGqePHu1CIczEFAjX4ArEYZ0aR8sLZP3KDoVGcRdJwHjARKw lbm [file] CiAgICAgICAgICAgICAgICAgICAgICAgICAgICAgICAgICAgICAgICAgICAgICAgICAgICAgICAgICAg ICAgICAgICAgICAgICAgICAgICAgICAgICAgICAgIC AgICAgICAgICANCiAgICAgICAgICAgICAgICAgICAgICAgICAgICAgICAgICAgICAgICAgICAgICAgIC AgICAgICAgICAgICAgICAgICAgICAgICAgICAgICAgICAgICAgICAgICAgICAgICAgICANCiAgICAgIC AgICAgICAgICAgICAgICAgICAgICAgICAgICAgICAg ICAgICAgICAgICAgICAgICAgICAgICAgICAgICAgICAgICAgICAgICAgICAgICAgICAgICAgICAgICAg ICANCiAgICAgICAgICAgICAgICAgICAgICAgICAgICAgICAgICAgICAgICAgICAgICAgICAgICAgICAg ICAgICAgICAgICAgICAgICAgICAgICAgICAgICAgIC AgICAgICAgICAgICANCiAgICAgICAgICAgICAgICAgICAgICAgICAgICAgICAgICAgICAgICAgICAgIC AgICAgICAgICAgICAgICAgICAgICAgICAgICAgICAgICAgICAgICAgICAgICAgICAgICAgICANCiAgIC AgICAgICAgICAgICAgICAgICAgICAgICAgICAgICAg ICAgICAgICAgICAgICAgICAgICAgICAgICAgICAgICAgICAgICAgICAgICAgICAgICAgICAgICAgICAg ICAgICANCiAgICAgICAgICAgICAgICAgICAgICAgICAgICAgICAgICAgICAgICAgICAgICAgICAgICAg ICAgICAgICAgICAgICAgICAgICAgICAgICAgICAgIC AgICAgICAgICAgICAgICANCiAgICAgICAgICAgICAgICAgICAgICAgICAgICAgICAgICAgICAgICAgIC AgICAgICAgICAgICAgICAgICAgICAgICAgICAgICAgICAgICAgICAgICAgICAgICAgICAgICAgICANCi AgICAgICAgICAgICAgICAgICAgICAgICAgICAgICAg ICAgICAgICAgICAgICAgICAgICAgICAgICAgICAgICAgICAgICAgICAgICAgICAgICAgICAgICAgICAg ICAgICAgICANCiAgICAgICAgICAgICAgICAgICAgICAgICAgICAgICAgICAgICAgICAgICAgICAgICAg ICAgICAgICAgICAgICAgICAgICAgICAgICAgICAgIC AgICAgICAgICAgICAgICAgICANCjw/kHTrC9haoKOtwgI5H4plOo4SSi4UVG6ta6QwCQEzRRctvnCgWt hNVxIhIMLfNiaTGbj8QVvgUG1LeINuA5KpO8BiVKocSI5CIIZwBSIoxOYpLRPnMDYiWzL4IEDlZPmvCX 9LaWRzIFsgNSAwIFIgNyAwIFIgOSAwIFIgMTEgMCBS JNAbZMRyIoBdZMguHL0Ct7IvsBV3IGu+My7RXW2rx2QxVEkxMuPwRF0hcw6HLJqXSwQpP4KtufT4HFH3 RWDoWk5ROULlSGDprBStFEEvVONNOqXsW8KyvM62HLHINs4+UOsofiKyQxhFWxG6FKMjk6CsRWd6JT5N IFDlFKj3qEMlWPGnI5Oqm0XeWn74DJBfMdqiKkaeuQ TVYLhkADbwvlppKC3eVIMjZW6rBH7kFQFtEDPiYzJiNQNHHA5RQBMzYGWqzZTwRUUmRSNFJP7LXUnlSX Y4MGVactYucLDlBPfoVK1FZMLtbzXoQyseBGZIRQy+Bz7QQL6nc9ZvCZpaHLKjMY3pso8BHKjJOhTxB2 H3jFNrZ3U8MZfbFx9JUZEcHKXkKaZsCMIGDIraGC1Y BZ4ubvC7KS9PgVVgRRMhZKXwpDRjTHo0X95idAGgNTjkSV2GQAF+Earl+Cb3QVRFfUPQkUMNqNhQbROPX GeKlP9OtQ8HBp3EyA6FbYQ85hDyxgqKpZFyzDV6FEC6kPXYgGYUXKS5BlMQycG9rdrRyThGjHKIYMzOk Z30kkNInEQYrUPR6CFEbEa7SMXNcO8WcczZywVbgxg VzKDBnRLBPPW3XKNngjhCpfIUtlNfkJR75xTkzJV1LNr1MXoPoEV3kut9RdADyHu5FRHRlWZ3ERYAhDV NmDKSuLJH5NUXuNbWcGNilFYKePYEpVOA3XJUwHISzAJ9MBpDmYAQiYgdwCYnvZKJxMQCeym3FYPSfBI MfJEnwTrNfOCZxSKTdCVckBTEnJKLlBJE9WWZfJZCv IF8IOxKfTOBgJMT8OxYbTCKiFARvls2DBLSmMYKuRGGpAjQxJOEsXNEkQVhrBHVcCNL8HKJbICUcILIi XJ4QQlYzCYBnQCxwYrTkOIWlFHQtwp1QUSOxEWTdAAm5LnDsSTJkAIJaSQrbCTNrPBVtHOT9RGDyIJRd OX1OJlIbMPAgCSU9OfzaHJKbKAYber0EGLAeLNFkQs k4ZAVmYIWtMCGxONsuHQUlJWGgMEVfSBTmAIMsMV3KWsKkUZNwEECoRnzbZNDpDPRqpx5WEALfFPFlCC b2TcYgFZOwPFDxJKhsJTEsEDX4IFz9SYHlUZDfAS8HHaOxPUTjNIKdCdybSQObTFHsun3FVWGeLWNcJx HeKuHgRGZmFQPsQZkzDRZgTFS1LFR4ATDoMJFfJF0A GpTsWRSuMGD0VBUyJVEdTDPzxo9WMXMeXEDjKIC6ZlNlCIHqNARdMMnuBQKqSKL5HDkrGQSdPLPvCW2I XvSkLMPzIus2NAFaMKAjXQJlnm2JBMAiHKIcVVgsXOUoDVQsJTPmQByxRJWqGDP9CSz3KDLuDQXaYL9I UtCfLCBzZqp1XzawGSAoRVKeep8DASPqNNYqUKq9PI WhKAXlSQIcJFmpBTAcSHGgOVZdAIXvQSRhHR3VNeMuQMXfQpAjBmQpFYKqPDHmhb1OkWPspOgjah3RPR hTDv9CxZoyHVFtAUytCx9yuZJjCGGvFJWSEo2UibLgUOEaDPCIHSffEKOsPEAgZUW9WlRsXVS8AQB9TB f8U6F8QTZyJSL6PYt1U0DtIsB8QWQ9VOBvLENuGCy2 GYSsTfdzWpQrADW3IopnHJp5IjD+PC0lJVz+[id number]== ID Date Data Source [id number] 02/28/2021 01:25:31 PM [facility] Name Value Range Interpretation Code Description Data Ema rce(s) Supporting Document(s) Hepatitis A virus IgM Ab [Presence] in Serum or Plasma by [facility] Non Reactive [facility] No acute infection, susceptible to infec tion. Hepatitis B virus core IgM Ab [Presence] in Serum or Plasma by Immunoassay Non Reactive [facility] IgM antibodies to HBc were not detected, does not exclude the possibility of exposure to HBV. Hepatitis C virus Ab [Presence] in Serum or Plasma by Immuno assay Non Reactive [facility] No serological evidence of active infect ion. If recent exposure is suspected, test for HCV RNA. Hepatitis B virus surface Ag [Presence] in Serum or Plasma b y Immunoassay Non Reactive [facility] No active or previous infection. Suscept ible to infection. ID Date Data Source [id number] 02/28/2021 12:39:41 PM EDT [facility] Name Value Range Interpretation Code Description Data Ema rce(s) Supporting Document(s) Leukocytes [#/volume] in Blood by Automated count 4.0 10*3/uL 4-10 [facility] Erythrocytes [#/volume] in Blood by Automated count 2.97 10*6/uL 4.6- 6.1 L [facility] Hemoglobin [Mass/volume] in Blood 8.4 g/dL 13.5-18 L [facility] Hematocrit [Volume Fraction] of Blood by Automated count 25.4 % 4 1-53 L [facility] Erythrocyte mean corpuscular volume [Entitic volume] by Auto mated count 85.4 fL 80-96 [facility] Erythrocyte mean corpuscular hemoglobin [Entitic mass] by Automated count 28.3 pg 27-33 [facility] Erythrocyte mean corpuscular hemoglobin concentration [Mass/volume] by Automated count 33.1 g/dL [facility].0-[facility] distribution width [Ratio] by Automated count 16.7 % 11.5-14.5 H [facility] Platelets [#/volume] in Blood by Automated count 190 10*3/uL 150-400 [facility] Differential cell count method - Blood [facility] Neutrophils/100 leukocytes in Blood by Automated count 74 % [facility] Lymphocytes/100 leukocytes in Blood by Automated count 6 % [facility] Monocytes/100 leukocytes in Blood by Automated count 12 % [facility] Eosinophils/100 leukocytes in Blood by Automated count 6 % [facility] Basophils/100 leukocytes in Blood by Automated count 2 % [facility] Neutrophils [#/volume] in Blood by Automated count 3.00 10*3/uL 1.8-7 .0 [facility] Lymphocytes [#/volume] in Blood by Automated count 0.25 10*3/uL 1.2-4 .0 L [facility] Monocytes [#/volume] in Blood by Automated count 0.46 10*3/uL 0-0.8 [facility] Eosinophils [#/volume] in Blood by Automated count 0.26 10*3/uL 0-0.5 [facility] Basophils [#/volume] in Blood by Automated count 0.06 10*3/uL 0-0.2 [facility] Nucleated erythrocytes/100 leukocytes [Ratio] in Blood by Automated count 0 /100{WBCs} 0-0 [facility] ID Date Data Source [id number] 02/28/2021 12:59:20 PM [facility] Value Range Interpretation Code Description Data Ema rce(s) Supporting Document(s) Prothrombin time (PT) 14.6 s 11.6-14.0 H [facility] INR in Platelet poor plasma by Coagulation assay 1.18 [facility] Routine intensity oral anticoagulation I NR is typically 2.0-3.0. Target INR must be clinically individualized. ID Date Data Source [id number] 02/28/2021 12:59:20 PM [facility] Value Range Interpretation Code Description Data Ema rce(s) Supporting Document(s) aPTT in Platelet poor plasma by Coagulation assay 33.5 s 24.0-33. 0 H [facility] ID Date Data Source [id number] 02/28/2021 01:24:10 PM [facility] Value Range Interpretation Code Description Data Ema rce(s) Supporting Document(s) [id number] [Mass/volume] in Serum or Plasma 45 ng/mL <9 H [facility] ID Date Data Source [id number] 02/28/2021 01:24:10 PM [facility] Value Range Interpretation Code Description Data Ema rce(s) Supporting Document(s) Albumin [Mass/volume] in Serum or Plasma by Bromocresol green (BCG) dye binding method 3.4 g/dL 3.5-5.2 [facility] Bilirubin.total [Mass/volume] in Serum or Plasma 0.7 mg/dL <1.2 [facility] Calcium [Mass/volume] in Serum or Plasma 10.6 mg/dL 8.8-10.2 H [facility] Chloride [Moles/volume] in Serum or Plasma 97 mmol/L 98-107 L [facility] Creatinine [Mass/volume] in Serum or Plasma 0.94 mg/dL 0.70-1.20 [facility] Glucose [Mass/volume] in Serum or Plasma 138 mg/dL 70-140 [facility] Alkaline phosphatase [Enzymatic activity/volume] in Serum or Plasma 168 U/L 40-129 H [facility] Potassium [Moles/volume] in Serum or Plasma 4.1 mmol/L 3.4-5.1 [facility] Protein [Mass/volume] in Serum or Plasma 7.1 g/dL 6.4-8.3 [facility] Sodium [Moles/volume] in Serum or Plasma 130 mmol/L 136-145 L [facility] Aspartate aminotransferase [Enzymatic activity/volume] in Serum or Plasma 60 U/L <40 H [facility] Urea nitrogen [Mass/volume] in Serum or Plasma 17 mg/dL 8-23 [facility] Osmolality of Serum or Plasma by calculation 274 mosm/kg 275-300 L [facility] Creatinine/Urea nitrogen [Mass Ratio] in Serum or Plasma 18 [facility] Bicarbonate [Moles/volume] in Serum 22 mmol/L 22-29 [facility] Alanine aminotransferase [Enzymatic activity/volume] in Seru m or Plasma 36 U/L <41 [facility] Anion gap 3 in Serum or Plasma 11 mmol/L 8-15 [facility] Glomerular filtration rate/1.73 sq M pre dicted among non-blacks [Volume Rate/Area] in Serum or Plasma by Creatinine-based formula (MDRD) 77 mL/min/1.73m2 >60 [facility] Glomerular filtration rate/1.73 sq M pre dicted among blacks [Volume Rate/Area] in Serum or Plasma by Creatinine-based formula (MDRD) 90 mL/min/1.73m2 >60 [facility] ID Date Data Source [id number] 02/18/2021 08:24:57 AM EDT [facility] Name Value Range Interpretation Code Description Data Ema rce(s) Supporting Document(s) POC GLUCOSE 124 mg/dL (70-99) H [facility] PERFORMED BY CLINICAL STAFF ID Date Data Source [id number] 02/18/2021 07:04:16 AM EDT [facility] Name Value Range Interpretation Code Description Data Ema rce(s) Supporting Document(s) SODIUM 141 mmol/L (136-145) [facility] POTASSIUM 3.8 mmol/L (3.6-5.2) [facility] CHLORIDE 111 mmol/L (100-108) H [facility] CO2 25 mmol/L (22-31) [facility] ANION GAP 5 mmol/L (7-16) L [facility] UREA NITROGEN 13 mg/dL (7-24) [facility] CREATININE 0.75 mg/dL (0.80-1.30) L [facility] BUN/CREAT RATIO 17.3 RATIO (10.0-20.0) [facility] GLUCOSE 137 mg/dL (70-99) H [facility] CALCIUM 9.0 mg/dL (8.4-10.2) [facility] TOTAL PROTEIN 5.5 g/dL (6.4-8.2) L [facility] ALBUMIN 1.8 g/dL (3.2-4.5) L [facility] GLOBULIN 3.7 g/dL (2.7-4.3) [facility] ALB/GLOB RATIO 0.5 RATIO [facility] ALKALINE PHOSPHATASE 139 U/L (45-117) H [facility] BILIRUBIN,TOTAL 0.8 mg/dL (0.0-1.0) [facility] PLEASE NOTE:Total bilirubin results may be falselyelevated in patients taking Eltrombopag. AST (SGOT) 63 U/L (11-39) H [facility] ALT (SGPT) 39 U/L (12-78) [facility] GFR >60 ml/min/1.73m2 (>59) [facility] GFR ( AMER) >60 ml/min/1.73m2 (>59) [facility] GFR INTERPRETATION [facility] --NORMAL KIDNEY FUNCTION OR MILD DISEASE - GFR >OR= 60CHRONIC KIDNEY DISEASE - GFR 15 - 59RENAL FAILURE - GFR <15 Est. GFR calculation based on the MDRDstudy equation, which assumes a steadystate for creatinine. Est. GFR should notbe used for medication dosing. ID Date Data Source [id number] 02/18/2021 06:27:58 AM EDT [facility] Name Value Range Interpretation Code Description Data Ema rce(s) Supporting Document(s) WBC 3.0 10*3/uL (4.1-11.0) L [facility] [place] RBC 2.62 10*6/uL (4.60-6.10) L [facility] HGB 7.4 g/dL (13.5-18.0) L [facility] HCT 22.4 % (41.0-53.0) L [facility] MCV 85.4 fL (80.0-95.0) [facility] MCH 28.3 pg (27.0-32.0) [facility] MCHC 33.1 g/dL (32.0-36.0) [facility] RDW 16.2 % (10.5-14.5) H [facility] PLT 125 10*3/uL (150-450) L [facility] MPV 8.6 fL (7.1-10.7) [facility] ID Date Data Source [id number] 02/18/2021 02:59:19 AM EDT [facility] Name Value Range Interpretation Code Description Data Ema rce(s) Supporting Document(s) POC GLUCOSE 126 mg/dL (70-99) H [facility] NOTIFIED NURSEPERFORMED BY CLINICAL S TAFF ID Date Data Source [id number] 02/17/2021 08:44:14 PM EDT [facility] Name Value Range Interpretation Code Description Data Ema rce(s) Supporting Document(s) POC GLUCOSE 183 mg/dL (70-99) H [facility] NOTIFIED NURSEPERFORMED BY CLINICAL S TAFF ID Date Data Source [id number] 02/17/2021 08:20:47 PM EDT [facility] Name Value Range Interpretation Code Description Data Ema rce(s) Supporting Document(s) WBC 3.8 10*3/uL (4.1-11.0) L [facility] RBC 3.01 10*6/uL (4.60-6.10) L [facility] HGB 8.3 g/dL (13.5-18.0) L [facility] HCT 25.6 % (41.0-53.0) L [facility] MCV 85.3 fL (80.0-95.0) [facility] MCH 27.5 pg (27.0-32.0) [facility] MCHC 32.2 g/dL (32.0-36.0) [facility] RDW 16.4 % (10.5-14.5) H [facility] PLT 157 10*3/uL (150-450) [facility] MPV 7.9 fL (7.1-10.7) [facility] ID Date Data Source [id number] 02/17/2021 05:44:15 PM EDT [facility] Name Value Range Interpretation Code Description Data Ema rce(s) Supporting Document(s) POC GLUCOSE 141 mg/dL (70-99) H [facility] NOTIFIED NURSEPERFORMED BY CLINICAL S TAFF ID Date Data Source [id number] 02/17/2021 02:11:35 PM EDT [facility] Name Value Range Interpretation Code Description Data Ema rce(s) Supporting Document(s) WBC 3.3 10*3/uL (4.1-11.0) L [facility] RBC 2.86 10*6/uL (4.60-6.10) L [facility] HGB 7.9 g/dL (13.5-18.0) L [facility] HCT 24.5 % (41.0-53.0) L [facility] MCV 85.6 fL (80.0-95.0) [facility] MCH 27.7 pg (27.0-32.0) [facility] MCHC 32.3 g/dL (32.0-36.0) [facility] RDW 16.2 % (10.5-14.5) H [facility] PLT 136 10*3/uL (150-450) L [facility] MPV 8.9 fL (7.1-10.7) [facility] ID Date Data Source [id number] 02/17/2021 12:45:18 PM EDT [facility] Name Value Range Interpretation Code Description Data Ema rce(s) Supporting Document(s) POC GLUCOSE 151 mg/dL (70-99) H [facility] PERFORMED BY CLINICAL STAFF ID Date Data Source [id number] 02/17/2021 09:02:18 AM EDT [facility] Name Value Range Interpretation Code Description Data Ema rce(s) Supporting Document(s) POC GLUCOSE 120 mg/dL (70-99) H [facility] PERFORMED BY CLINICAL STAFF ID Date Data Source [id number] 02/17/2021 08:36:01 AM EDT [facility] Name Value Range Interpretation Code Description Data Ema rce(s) Supporting Document(s) SODIUM 143 mmol/L (136-145) [facility] POTASSIUM 3.6 mmol/L (3.6-5.2) [facility] CHLORIDE 113 mmol/L (100-108) H [facility] CO2 25 mmol/L (22-31) [facility] ANION GAP 5 mmol/L (7-16) L [facility] UREA NITROGEN 16 mg/dL (7-24) [facility] CREATININE 0.80 mg/dL (0.80-1.30) [facility] BUN/CREAT RATIO 20.0 RATIO (10.0-20.0) [facility] GLUCOSE 126 mg/dL (70-99) H [facility] CALCIUM 8.6 mg/dL (8.4-10.2) [facility] TOTAL PROTEIN 5.7 g/dL (6.4-8.2) L [facility] ALBUMIN 1.9 g/dL (3.2-4.5) L [facility] GLOBULIN 3.8 g/dL (2.7-4.3) [facility] ALB/GLOB RATIO 0.5 RATIO [facility] ALKALINE PHOSPHATASE 141 U/L (45-117) H [facility] BILIRUBIN,TOTAL 1.2 mg/dL (0.0-1.0) H [facility] PLEASE NOTE:Total bilirubin results may be falselyelevated in patients taking Eltrombopag. AST (SGOT) 56 U/L (11-39) H [facility] ALT (SGPT) 37 U/L (12-78) [facility] GFR >60 ml/min/1.73m2 (>59) [facility] GFR ( AMER) >60 ml/min/1.73m2 (>59) [facility] GFR INTERPRETATION [facility] --NORMAL KIDNEY FUNCTION OR MILD DISEASE - GFR >OR= 60CHRONIC KIDNEY DISEASE - GFR 15 - 59RENAL FAILURE - GFR <15 Est. GFR calculation based on the MDRDstudy equation, which assumes a steadystate for creatinine. Est. GFR should notbe used for medication dosing. ID Date Data Source [id number] 02/17/2021 08:02:19 AM EDT [facility] Name Value Range Interpretation Code Description Data Ema rce(s) Supporting Document(s) WBC 3.0 10*3/uL (4.1-11.0) L [facility] RBC 2.69 10*6/uL (4.60-6.10) L [facility] HGB 7.4 g/dL (13.5-18.0) L [facility] HCT 22.8 % (41.0-53.0) L [facility] [address] [facility] [facility] [id number] MCV 84.6 fL (80.0-95.0) [facility] MCH 27.6 pg (27.0-32.0) [facility] MCHC 32.6 g/dL (32.0-36.0) [facility] RDW 16.5 % (10.5-14.5) H [facility] PLT 129 10*3/uL (150-450) L [facility] MPV 8.7 fL (7.1-10.7) [facility] ID Date Data Source [id number] 02/17/2021 04:40:08 AM EDT [facility] Name Value Range Interpretation Code Description Data Ema rce(s) Supporting Document(s) POC GLUCOSE 125 mg/dL (70-99) H [facility] PERFORMED BY CLINICAL STAFF ID Date Data Source [id number] 02/16/2021 10:37:35 PM EDT [facility] Name Value Range Interpretation Code Description Data Ema rce(s) Supporting Document(s) POC GLUCOSE 169 mg/dL (70-99) H [facility] NOTIFIED NURSEPERFORMED BY CLINICAL S TAFF ID Date Data Source [id number] 02/16/2021 08:37:46 PM EDT [facility] Name Value Range Interpretation Code Description Data Ema rce(s) Supporting Document(s) WBC 4.2 10*3/uL (4.1-11.0) [facility] RBC 3.03 10*6/uL (4.60-6.10) L [facility] HGB 8.4 g/dL (13.5-18.0) L [facility] HCT 25.9 % (41.0-53.0) L Lab [facility] PER[facility] AT [address] [facility] [address] MCV 85.3 fL (80.0-95.0) [facility] MCH 27.5 pg (27.0-32.0) [facility] MCHC 32.3 g/dL (32.0-36.0) [facility] RDW 16.0 % (10.5-14.5) H [facility] PLT 147 10*3/uL (150-450) L [facility] MPV 8.5 fL (7.1-10.7) [facility] ID Date Data Source [id number] 02/16/2021 05:27:15 PM EDT [facility] Name Value Range Interpretation Code Description Data Ema rce(s) Supporting Document(s) POC GLUCOSE 159 mg/dL (70-99) H [facility] PERFORMED BY CLINICAL STAFF ID Date Data Source [id number] 02/16/2021 02:11:39 PM EDT [facility] Name Value Range Interpretation Code Description Data Ema rce(s) Supporting Document(s) SODIUM 141 mmol/L (136-145) [facility] POTASSIUM 3.7 mmol/L (3.6-5.2) [facility] CHLORIDE 111 mmol/L (100-108) H [facility] CO2 24 mmol/L (22-31) [facility] ANION GAP 6 mmol/L (7-16) L [facility] UREA NITROGEN 17 mg/dL (7-24) [facility] CREATININE 0.84 mg/dL (0.80-1.30) [facility] BUN/CREAT RATIO 20.2 RATIO (10.0-20.0) H [facility] GLUCOSE 157 mg/dL (70-99) H [facility] CALCIUM 9.5 mg/dL (8.4-10.2) [facility] GFR >60 ml/min/1.73m2 (>59) [facility] GFR ( AMER) >60 ml/min/1.73m2 (>59) [facility] GFR INTERPRETATION [facility] --NORMAL KIDNEY FUNCTION OR MILD DISEASE - GFR >OR= 60CHRONIC KIDNEY DISEASE - GFR 15 - 59RENAL FAILURE - GFR <15 Est. GFR calculation based on the MDRDstudy equation, which assumes a steadystate for creatinine. Est. GFR should notbe used for medication dosing. ID Date Data Source [id number] 02/16/2021 01:45:41 PM EDT [facility] Name Value Range Interpretation Code Description Data Ema rce(s) Supporting Document(s) WBC 3.5 10*3/uL (4.1-11.0) L [facility] [place] RBC 2.55 10*6/uL (4.60-6.10) L [facility] HGB 7.0 g/dL (13.5-18.0) L [facility] HCT 21.6 % (41.0-53.0) L [facility] PER[facility] AT [address] [place] [address] MCV 84.4 fL (80.0-95.0) [facility] MCH 27.4 pg (27.0-32.0) [facility] MCHC 32.5 g/dL (32.0-36.0) [facility] RDW 16.4 % (10.5-14.5) H [facility] PLT 147 10*3/uL (150-450) L [facility] MPV 8.8 fL (7.1-10.7) [facility] ID Date Data Source [id number] 02/16/2021 12:12:49 PM EDT [facility] Name Value Range Interpretation Code Description Data Ema rce(s) Supporting Document(s) POC GLUCOSE 182 mg/dL (70-99) H [facility] NOTIFIED NURSEPERFORMED BY CLINICAL S TAFF ID Date Data Source [id number] 02/16/2021 08:47:28 AM EDT [facility] Name Value Range Interpretation Code Description Data Ema rce(s) Supporting Document(s) POC GLUCOSE 141 mg/dL (70-99) H [facility] PERFORMED BY CLINICAL STAFF ID Date Data Source [id number] 02/16/2021 03:13:38 AM EDT [facility] Name Value Range Interpretation Code Description Data Ema rce(s) Supporting Document(s) POC GLUCOSE 126 mg/dL (70-99) H [facility] PERFORMED BY CLINICAL STAFF ID Date Data Source [id number] 02/16/2021 07:25:00 AM EDT [facility] DATE OF EXAM: 02/16/2021HEST, SINGLE PO RTABLE VIEW. INDICATION: Chest pain COMPARISON: 11/18/2020 TECHNIQUE: A portable radiograph of the chest was obtained. FINDINGS: No focal consolidation, pleural effusions or pulmonary edema is seen. The cardiomediastinal silhouette is mildly prominent. Visualized osseous structures are within normal limits. IMPRESSION: No acute abnormality is seen. Professional interpretation performed at [facility] .End of diagnostic report for accession: [id number] Interpreted: David Bueno MDTranscribed: 02/16/2021 07:25 AMSigned: 0 02/16/2021 07:25 AM David Bueno MD [facility] # [id number] BILL # [id number] Name Value Range Interpretation Code Description Data Ema rce(s) Supporting Document(s) ID Date Data Source [id number] 02/17/2021 12:48:06 AM EDT [facility] SPEC EXP DATE 02/19/2021ATI ENT ABO/Rh A POSITIVEANTIBODY SCREEN NEGATIVETESTING SITE PERFORMED AT [address] [place], [place] [address]BLOOD BANK COMMENT BLOOD TYPE CONFIRMED.UNIT NUMBER [id number] COMPONENT TYPE LEUKOPOOR RED CELLSUNIT DIVISION 00STATUS OF UNIT TRANSFUSEDTRANSFUSION STATUS OK TO TRANSFUSECROSSMATCH RESULT COMPATIBLE Name Value Range Interpretation Code Description Data Ema rce(s) Supporting Document(s) TYPE AND SCREEN [facility] PATIENT ABO/Rh A POSITIVE ID Date Data Source [id number] 02/16/2021 12:54:29 AM EDT [facility] Name Value Range Interpretation Code Description Data Ema rce(s) Supporting Document(s) PT 12.1 s (9.2-11.9) H [facility] PERFORMED AT [address] [place] [address] INR 1.16 [facility] SUGGESTED THERAPEUTIC RANGES USING INR F ORSTABILIZED ANTICOAGULATED PATIENTS:STANDARD DOSE THERAPY INR 2.0-3.0 DVT, PE, PREVENT DVT OR EMBOLISMHIGH DOSE THERAPY INR 2.5-3.5 PREVENT EMBOLISM FROM MECHANICAL HEART VALVE ID Date Data Source [id number] 02/16/2021 12:44:12 AM EDT [facility] Name Value Range Interpretation Code Description Data Ema rce(s) Supporting Document(s) TOTAL PROTEIN 6.7 g/dL (6.4-8.2) [facility] ALBUMIN 2.2 g/dL (3.2-4.5) L [facility] GLOBULIN 4.5 g/dL (2.7-4.3) H [facility] ALB/GLOB RATIO 0.5 RATIO [facility] BILIRUBIN,TOTAL 1.3 mg/dL (0.0-1.0) H [facility] PLEASE NOTE:Total bilirubin results may be falselyelevated in patients taking Eltrombopag. BILIRUBIN,CONJUGATED 0.4 mg/dL (0.0-0.3) H [facility] BILIRUBIN,UNCONJ. 0.9 mg/dL (0.0-0.7) H [facility] ALKALINE PHOSPHATASE 155 U/L (45-117) H [facility] AST (SGOT) 63 U/L (11-39) H [facility] ALT (SGPT) 44 U/L (12-78) [facility] ID Date Data Source [id number] 02/16/2021 12:44:12 AM EDT [facility] Name Value Range Interpretation Code Description Data Ema rce(s) Supporting Document(s) TROPONIN I <0.05 ng/mL (<0.05) [facility] [place] Less than 0.05: Myocardial injury unlike lyGreater than or equal to 0.05: Highly suggestive of myocardial injuryCorrelation with rise and/or fall ofserial troponins, clinical symptomsand ECG changes is necessary. ID Date Data Source [id number] 02/16/2021 12:44:12 AM EDT [facility] Name Value Range Interpretation Code Description Data Ema rce(s) Supporting Document(s) SODIUM 140 mmol/L (136-145) [facility] POTASSIUM 4.0 mmol/L (3.6-5.2) [facility] CHLORIDE 112 mmol/L (100-108) H [facility] CO2 22 mmol/L (22-31) [facility] ANION GAP 6 mmol/L (7-16) L [facility] UREA NITROGEN 18 mg/dL (7-24) [facility] CREATININE 0.83 mg/dL (0.80-1.30) [facility] BUN/CREAT RATIO 21.7 RATIO (10.0-20.0) H [facility] GLUCOSE 131 mg/dL (70-99) H [facility] CALCIUM 9.7 mg/dL (8.4-10.2) [facility] GFR >60 ml/min/1.73m2 (>59) [facility] GFR ( AMER) >60 ml/min/1.73m2 (>59) [facility] GFR INTERPRETATION [facility] --NORMAL KIDNEY FUNCTION OR MILD DISEASE - GFR >OR= 60CHRONIC KIDNEY DISEASE - GFR 15 - 59RENAL FAILURE - GFR <15 Est. GFR calculation based on the MDRDstudy equation, which assumes a steadystate for creatinine. Est. GFR should notbe used for medication dosing. ID Date Data Source [id number] 02/16/2021 12:28:08 AM EDT [facility] Name Value Range Interpretation Code Description Data Ema rce(s) Supporting Document(s) WBC 4.4 10*3/uL (4.1-11.0) [facility] [place] RBC 3.03 10*6/uL (4.60-6.10) L [facility] HGB 8.2 g/dL (13.5-18.0) L [facility] HCT 25.3 % (41.0-53.0) L [facility] MCV 83.7 fL (80.0-95.0) [facility] MCH 27.0 pg (27.0-32.0) [facility] MCHC 32.2 g/dL (32.0-36.0) [facility] RDW 16.2 % (10.5-14.5) H [facility] PLT 164 10*3/uL (150-450) [facility] MPV 9.2 fL (7.1-10.7) [facility] NEUT % 72.8 % (35.0-75.0) [facility] LYMPH % 8.6 % (16.0-52.0) L [facility] MONO % 10.8 % (0.0-8.0) H [facility] EOS % 7.3 % (0.0-5.0) H [facility] BASO % 0.5 % (0.0-4.0) [facility] NEUT # 3.2 10*3/uL (1.8-7.7) [facility] LYMPH # 0.4 10*3/uL (1.2-4.8) L [facility] MONO # 0.5 10*3/uL (0.0-0.8) [facility] Eosinophils [#/volume] in Blood by Automated count 0.3 10*3/uL (0.0-0 .5) [facility] BASO # 0.0 10*3/uL (0.0-0.2) [facility] ID Date Data Source [id number] 02/17/2021 07:11:40 AM EDT [facility] SPECIMEN DESCRIPTION URINE, COLLE CTION METHOD NOT SPECIFIEDCULTURE RESULTS NO GROWTHREPORT STATUS FINAL 02/17/2021 Name Value Range Interpretation Code Description Data Ema rce(s) Supporting Document(s) ID Date Data Source [id number] 02/16/2021 01:00:13 AM EDT [facility] Name Value Range Interpretation Code Description Data Ema rce(s) Supporting Document(s) URINE WBC (0-5) [facility] URINE RBC (0-2) [facility] BACTERIA 1+ [HPF] [facility] MUCUS 1+ [HPF] [facility] ID Date Data Source [id number] 02/16/2021 12:42:47 AM EDT [facility] Name Value Range Interpretation Code Description Data Ema rce(s) Supporting Document(s) COLOR [facility] PERFORMED AT [address] [facility] [address] APPEARANCE [facility] SPEC GRAV URINE 1.031 (1.003-1.030) H [facility] PH URINE 6.5 (5.0-7.5) [facility] LEUK ESTERASE (NEG) A [facility] NITRITE URINE (NEG) [facility] PROTEIN URINE (NEG) [facility] GLUCOSE URINE (NEG) [facility] KETONE URINE (NEG) [facility] [place] UROBILINOGEN 0.2 mg/dL (0-1.0) [facility] [place] BILIRUBIN URINE (NEG) [facility] BLOOD/HGB URINE 2+ (NEG) A [facility] ID Date Data Source [id number] 02/15/2021 05:36:00 PM EDT [facility] Name Value Range Interpretation Code Description Data Ema rce(s) Supporting Document(s) SARS coronavirus 2 RNA [Presence] in Res piratory specimen by JUSTEN with probe detection NEGATIVE [facility] This lab was ordered by [facility] a nd reported by [facility]. ID Date Data Source [id number] 02/14/2021 10:27:00 AM EDT [facility] [place] Name Value Range Interpretation Code Description Data Ema rce(s) Supporting Document(s) Glucose [Presence] in Urine Laboratory test result [facility] ([facility]) Protein [Presence] in Urine by Test strip 100 mg/dL [facility] ([facility]) Ua Nitrite Laboratory test result [facility] ([facility]) Blood [Presence] in Urine by Visual Laboratory test result [facility] ([facility] Ua Leuko Laboratory test result [facility] ([facility]) Color of Urine Laboratory test result [facility] ([facility]) Ketones [Presence] in Urine by Test strip Laboratory test result [facility] ([facility]) Clarity of Urine Laboratory test result [facility] ([facility]) Ua Specific [place] 1.025 1.003-1.030 [facility] NT ([facility]) pH of Urine by Test strip 7.0 5.0-7.5 [facility] ([facility]) Bilirubin.total [Presence] in Urine by Test strip Laboratory test res ult [facility] ([facility]) Urobilinogen [Mass/volume] in Urine by Test strip 1.0 E.U./dL 0.0-1.0 [facility] ([facility]) ID Date Data Source [id number] 02/13/2021 05:53:00 PM [facility] Surgical Pathology ReportName: Clyde LINARES OBERTMRN: [id number] Number: [id number] Date: 02/12/2021 00:00Received Date: 02/12/2021 14:16Physician(s): АННА BRAUN MD ADJAPONG, OPOKU, MDSpecimen(s) ReceivedA: Material received for consultation, [facility], [id number] HistoryLiver bx ([id number]). Right lobe liver mass. Confirm HCC. Consultation.DiagnosisLIVER, NEEDLE BIOPSY ([id number], 02/07/21): HEPATOCELLULAR CARCINOMA,MODERATELY DIFFERENTIATED. CIRRHOSIS. (See microscopic description).Electronically Signed By Donnie West M.D., Attending Pathologist02/13/2021 17:53:35 Gross DescriptionReceived from [facility] in [place], [place], is 1 H and Estained slide and 6 specially stained slides, 1 paraffin block, [id number], with the corresponding pathology report. Microscopic DescriptionI completely agree with your diagnosis of moderately differentiatedhepatocellular carcinoma. Sections show multiple cores of hepaticparenchyma with marked fibrosis and focal clusters and sheets of carcinomawith a trabecular growth pattern, lining by endothelial cells andmorphological features resembling hepatocytes. The nonneoplasticparenchyma shows marked fibrosis associated with nodular regenerationconsistent with cirrhosis and this is highlighted by your trichrome stain.Your mucicarmine stain is negative. Your CK7 and CK20 stains are negative.Arginine-1 and HepPar1 stains performed in our laboratory are bothstrongly and diffusely positive and this further supports the diagnosis ofhepatocellular carcinoma. Thank you for letting me see this case inconsultation.This report may include one or more immunohistochemical stain results thatuse analyte specific reagents. All positive and negative controls havebeen reviewed by the attending pathologist and are satisfactory. The testswere developed and their performance characteristics determined by [facility]. They have not been cleared or approved by the USFood and Drug Administration. The FDA has determined that such clearanceor approval is not necessary. Name Value Range Interpretation Code Description Data Ema rce(s) Supporting Document(s) ID Date Data Source [id number] 01/31/2021 06:21:13 AM EDT [facility] Name Value Range Interpretation Code Description [facility] Supporting Document(s) SODIUM 139 mmol/L (136-145) [facility] POTASSIUM 3.7 mmol/L (3.6-5.2) [facility] CHLORIDE 106 mmol/L (100-108) [facility] CO2 24 mmol/L (22-31) [facility] ANION GAP 9 mmol/L (7-16) [facility] UREA NITROGEN 17 mg/dL (7-24) [facility] CREATININE 0.95 mg/dL (0.80-1.30) [facility] BUN/CREAT RATIO 17.9 RATIO (10.0-20.0) [facility] GLUCOSE 119 mg/dL (70-99) H [facility] CALCIUM 9.4 mg/dL (8.4-10.2) [facility] GFR >60 ml/min/1.73m2 (>59) [facility] GFR ( AMER) >60 ml/min/1.73m2 (>59) [facility] GFR INTERPRETATION [facility] --NORMAL KIDNEY FUNCTION OR MILD DISEASE - GFR >OR= 60CHRONIC KIDNEY DISEASE - GFR 15 - 59RENAL FAILURE - GFR <15 Est. GFR calculation based on the MDRDstudy equation, which assumes a steadystate for creatinine. Est. GFR should notbe used for medication dosing. ID Date Data Source [id number] 01/31/2021 05:49:23 AM EDT [facility] Name Value Range Interpretation Code Description Data Ema rce(s) Supporting Document(s) WBC 3.6 10*3/uL (4.1-11.0) L [facility] [place] RBC 2.70 10*6/uL (4.60-6.10) L [facility] HGB 7.3 g/dL (13.5-18.0) L [facility] HCT 22.2 % (41.0-53.0) L [facility] MCV 82.2 fL (80.0-95.0) [facility] MCH 27.2 pg (27.0-32.0) [facility] MCHC 33.1 g/dL (32.0-36.0) [facility] RDW 16.2 % (10.5-14.5) H [facility] PLT 178 10*3/uL (150-450) [facility] MPV 8.2 fL (7.1-10.7) [facility] ID Date Data Source [id number] 01/31/2021 02:58:00 AM EDT [facility] Name Value Range Interpretation Code Description Data Ema rce(s) Supporting Document(s) SARS coronavirus 2 RNA [Presence] in Res piratory specimen by JUSTEN with probe detection NOT DETECTED [facility] This lab was reported by [facility]. ID Date Data Source [id number] 01/31/2021 03:56:47 AM EDT [facility] Name Value Range Interpretation Code Description Data Ema rce(s) Supporting Document(s) SPECIMEN DESCRIPTION [facility] INFLUENZA A (NEG) [facility] INFLUENZA B (NEG) [facility] RSV (NEG) [facility] COMMENT [facility] [place] FDA HAS MADE THIS TEST AVAILABL EUNDER AN EMERGENCY USE AUTHORIZATION(EUA) FOR THE DETECTION AND/OR DIAGNOSISOF THE VIRUS THAT CAUSES COVID-19.PERFORMED AT [address] [facility] [address] COVID19 RESULT (NDET) [facility] [place] THIS ASSAY AMPLIFIES AND DETECTSTHE TARG ET RNA USING REAL-TIME PCR.TESTING PERFORMED ON [employer] GENEXPERTNEGATIVE 2019_NCOV RT-PCR RESULTS DONOT PRECLUDE 2019_NCOV INFECTION ANDSHOULD NOT BE USED THE SOLE BASISFOR PATIENT MANAGEMENT DECISIONS. FIRST TEST [facility] [place] [facility] SYMPTOMATIC [facility] [place] DATE OF SYMPT ONSET [facility]OSPITALIZED [facility] [place] [facility] CONGREGATE CARE SET [facility] [place] ID Date Data Source [id number] 01/31/2021 08:36:00 AM EDT [facility] DATE OF EXAM: 01/31/2021XAM: CT ABDOMEN AND PELVIS WITHOUT AND WITH IV CONTRAST. INDICATION: АННА BLOOD IN ILEOCONDUIT COMPARISON: 11/16/2020. TECHNIQUE: Axial CT scanning of the abdomen and pelvis was performed without and with intravenous contrast in the nephrographic and delayed renal excretory phases. Coronal and sagittal reformatted images were obtained. One or more of the following dose reduction techniques were utilized in effectively lowering the radiation dose for this examination: Automated Exposure Control, Adjustment of the mA and/or kV according to patient size, or Iterative reconstruction. CONTRAST: 100 mL Omnipaque 300 FINDINGS: Lung Bases: Small hiatal hernia. Liver: Cirrhosis. Indeterminate 1.1 cm hypoenhancing lesion in segment 8 and one subcentimeter lesion in segment 6. Vague area of hypoenhancement in segment 5.Bile Ducts: Normal caliber.Gallbladder: Stones present, no inflammatory changes. Pancreas: Unremarkable.Spleen: Enlarged at 16.7 cm craniocaudal.Adrenals: Unremarkable. Kidneys: The kidneys are symmetric in size. No renal calculi. There is symmetric enhancement. Several bilateral subcentimeter hypoattenuating lesions, which are too small to characterize, but likely benign. Mild left hydronephrosis. Symmetric contrast excretion, but with only partial filling of the collecting systems on delayed phase images. This limits evaluation for urothelial lesions. No filling defect seen within the well opacified portions.Ureters: No ureteral stone. Circumferential diffuse urothelial thickening of both distal ureters, right more than left. 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 The conduit has an unremarkable appearance. A catheter is present within. Stomach and Bowel: Colonic diverticulosis. No dilation. Appendectomy. Peritoneum/Retroperitoneum: Moderate ascites. Reproductive Organs: Prostatectomy. Lymph Nodes: No adenopathy.Vessels: Mild atherosclerotic change. 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 Nonocclusive thrombus extends into the main portal vein. The main and left portal veins remain patent. Esophageal varices. Small recanalized paraumbilical vein. Soft Tissues: Anasarca.Bones: Degenerative changes of the lumbar spine. IMPRESSION: 1. 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 No definitive cause for hematuria is identified noting that there is only partial filling of the renal collecting systems on delayed phase images. There is mild left hydronephrosis. Circumferential thickening of both distal ureters, right greater than left, nonspecific, but possibly infectious or inflammatory. Correlate with urinalysis. 2. Cirrhosis with two indeterminate liver lesions m easuring up to 1.1 cm. Recommend contrast-enhanced MRI of the abdomen for definitive characterization and to exclude hepatocellular carcinoma. 3. Portal vein thrombus including complete occlusion of the right portal vein. Nonocclusive thrombus extends into the main portal vein, which remains patent. 4. Evidence of portal hypertension with moderate ascites, splenomegaly and portosystemic collaterals. 5. Cholelithiasis. 6. Remainder findings as above. A contemporaneous report was provided by [facility] at the time of this examination, reporting similar findings. Professional interpretation performed at [facility] .End of diagnostic report for accession: [id number] Interpreted: Shahnaz Ramos MDTranscribed: 01/31/2021 08:23 AMSigned: 01/31/2021 08:36 AM Shahnaz Ramos MD [facility] # [id number] BILL # [id number] Name Value Range Interpretation Code Description Data Ema rce(s) Supporting Document(s) ID Date Data Source [id number] 02/01/2021 09:19:09 AM EDT [facility] SPECIMEN DESCRIPTION URINE, COLLE CTION METHOD NOT SPECIFIEDCULTURE RESULTS MIXED UROGENITAL DEIRDRE; PLEASE SUBMIT A NEW SPEC IMEN IF CLINICALLY INDICATED.REPORT STATUS FINAL 02/01/2021 Name Value Range Interpretation Code Description Data Ema rce(s) Supporting Document(s) ID Date Data Source [id number] 01/31/2021 12:50:39 AM EDT [facility] Name Value Range Interpretation Code Description Data Ema rce(s) Supporting Document(s) URINE WBC (0-5) [facility] URINE RBC (0-2) [facility] ID Date Data Source [id number] 01/31/2021 12:39:03 AM EDT [facility] Name Value Range Interpretation Code Description Data Ema rce(s) Supporting Document(s) COLOR [facility] TESTING PERFORMED ON CENTRIFUGED SAMPLE APPEARANCE [facility] SPEC GRAV URINE 1.012 (1.003-1.030) [facility] PH URINE 6.5 (5.0-7.5) [facility] LEUK ESTERASE 2+ (NEG) A [facility] NITRITE URINE (NEG) [facility] PROTEIN URINE 2+ (NEG) A [facility] GLUCOSE URINE (NEG) [facility] KETONE URINE (NEG) [facility] [place] UROBILINOGEN 0.2 mg/dL (0-1.0) [facility] [place] BILIRUBIN URINE (NEG) [facility] BLOOD/HGB URINE 3+ (NEG) A [facility] ID Date Data Source [id number] 01/31/2021 12:42:08 AM EDT [facility] Name Value Range Interpretation Code Description Data Ema rce(s) Supporting Document(s) SODIUM 137 mmol/L (136-145) [facility] POTASSIUM 3.7 mmol/L (3.6-5.2) [facility] CHLORIDE 105 mmol/L (100-108) [facility] CO2 23 mmol/L (22-31) [facility] ANION GAP 9 mmol/L (7-16) [facility] UREA NITROGEN 17 mg/dL (7-24) [facility] CREATININE 1.02 mg/dL (0.80-1.30) [facility] BUN/CREAT RATIO 16.7 RATIO (10.0-20.0) [facility] GLUCOSE 147 mg/dL (70-99) H [facility] CALCIUM 9.6 mg/dL (8.4-10.2) [facility] GFR >60 ml/min/1.73m2 (>59) [facility] GFR ( AMER) >60 ml/min/1.73m2 (>59) [facility] GFR INTERPRETATION [facility] --NORMAL KIDNEY FUNCTION OR MILD DISEASE - GFR >OR= 60CHRONIC KIDNEY DISEASE - GFR 15 - 59RENAL FAILURE - GFR <15 Est. GFR calculation based on the MDRDstudy equation, which assumes a steadystate for creatinine. Est. GFR should notbe used for medication dosing. ID Date Data Source [id number] 01/31/2021 12:29:39 AM EDT [facility] Name Value Range Interpretation Code Description Data Ema rce(s) Supporting Document(s) WBC 4.0 10*3/uL (4.1-11.0) L [facility] [place] RBC 2.83 10*6/uL (4.60-6.10) L [facility] HGB 7.6 g/dL (13.5-18.0) L [facility] HCT 23.2 % (41.0-53.0) L [facility] MCV 82.1 fL (80.0-95.0) [facility] MCH 26.9 pg (27.0-32.0) L [facility] MCHC 32.8 g/dL (32.0-36.0) [facility] RDW 16.3 % (10.5-14.5) [facility] PLT 187 10*3/uL (150-450) [facility] MPV 8.3 fL (7.1-10.7) [facility] NEUT % 78.0 % (35.0-75.0) [facility] LYMPH % 6.7 % (16.0-52.0) [facility] MONO % 9.3 % (0.0-8.0) [facility] EOS % 4.4 % (0.0-5.0) Lab [facility] BASO % 1.6 % (0.0-4.0) [facility] NEUT # 3.2 10*3/uL (1.8-7.7) [facility] LYMPH # 0.3 10*3/uL (1.2-4.8) L [facility] MONO # 0.4 10*3/uL (0.0-0.8) [facility] Eosinophils [#/volume] in Blood by Automated count 0.2 10*3/uL (0.0-0 .5) [facility] BASO # 0.1 10*3/uL (0.0-0.2) [facility] ID Date Data Source PLZ LIVER 01/11/2021 12:00:00 AM EDT [email or web address] ([facility]) Name Value Range Interpretation Code Description Data Ema rce(s) Supporting Document(s) PLZ LIVER [facility] ([facility]) ID Date Data Source [id number] 12/05/2020 12:19:00 PM EDT [facility] ([facility] Name Value Range Interpretation Code Description Data Ema rce(s) Supporting Document(s) Specimen Adequacy Laboratory test result [facility] ([facility]) Ileal conduit/neobladder. Clinical History Laboratory test result [facility] ([facility]) BodySite Laboratory test result [facility] ([facility]) Voided - Clean Catch Gross Description Laboratory test result [facility] ([facility]) Received in a specimen container, labele d with the patients name and , is Cloudy Yellow fluid consistent with urine, measuring approximately 15 ml. Microscopic Description Laboratory test result [facility] ([facility]) Moderate numbers of neutrophils present. CPTCode 63027 [facility] ([facility]) Final Diagnosis Laboratory test result [facility] ([facility]) NEGATIVE FOR HIGH-GRADE UROTHELIAL CARCI NOMA. PDF Report Laboratory test result [facility] ([facility]) ID Date Data Source [id number] 12/05/2020 12:19:00 PM EDT [facility] ([facility]) Name Value Range Interpretation Code Description Data Ema rce(s) Supporting Document(s) Cytology report of Urine Cyto stain Laboratory test result [facility] ([facility]) ID Date Data Source [id number] 12/05/2020 11:34:00 AM EDT [facility] ([facility]) Name Value Range Interpretation Code Description Data Ema rce(s) Supporting Document(s) Glucose [Presence] in Urine Laboratory test result [facility] ([facility]) Protein [Presence] in Urine by Test strip 30 mg/dL [facility] ([facility]) Ua Nitrite Laboratory test result [facility] ([facility]) Blood [Presence] in Urine by Visual Laboratory test result [facility] ([facility]) Ua Leuko Laboratory test result [facility] ([facility]) Color of Urine Laboratory test result [facility] ([facility]) Ketones [Presence] in Urine by Test strip Laboratory test result [facility] ([facility]) Clarity of Urine Laboratory test result [facility] ([facility]) Ua Specific [place] 1.010 1.003-1.030 MEDE NT ([facility]) Bilirubin.total [Presence] in Urine by Test strip Laboratory test res ult [facility] ([facility]) pH of Urine by Test strip 6.5 5.0-7.5 [facility] ([facility]) Urobilinogen [Mass/volume] in Urine by Test strip 0.2 E.U./dL 0.0-1.0 [facility] ([facility]) ID Date Data Source [id number] 11/22/2020 12:44:37 PM EDT [facility] Name Value Range Interpretation Code Description Data Ema rce(s) Supporting Document(s) POC GLUCOSE 184 mg/dL (70-99) H [facility] NOTIFIED NURSEPERFORMED BY CLINICAL S TAFF ID Date Data Source [id number] 11/22/2020 07:40:49 AM EDT [facility] Name Value Range Interpretation Code Description Data Ema rce(s) Supporting Document(s) POC GLUCOSE 124 mg/dL (70-99) H [facility] NOTIFIED NURSEPERFORMED BY CLINICAL S TAFF ID Date Data Source [id number] 11/22/2020 07:35:48 AM EDT [facility] Name Value Range Interpretation Code Description Data Ema rce(s) Supporting Document(s) SODIUM 139 mmol/L (136-145) [facility] POTASSIUM 4.2 mmol/L (3.6-5.2) [facility] CHLORIDE 113 mmol/L (100-108) H [facility] CO2 18 mmol/L (22-31) L [facility] ANION GAP 8 mmol/L (7-16) [facility] UREA NITROGEN 27 mg/dL (7-24) H [facility] CREATININE 0.95 mg/dL (0.80-1.30) [facility] BUN/CREAT RATIO 28.4 RATIO (10.0-20.0) H [facility] GLUCOSE 115 mg/dL (70-99) H [facility] CALCIUM 8.2 mg/dL (8.4-10.2) L [facility] GFR >60 ml/min/1.73m2 (>59) [facility] GFR ( AMER) >60 ml/min/1.73m2 (>59) [facility] GFR INTERPRETATION [facility] --NORMAL KIDNEY FUNCTION OR MILD DISEASE - GFR >OR= 60CHRONIC KIDNEY DISEASE - GFR 15 - 59RENAL FAILURE - GFR <15 Est. GFR calculation based on the MDRDstudy equation, which assumes a steadystate for creatinine. Est. GFR should notbe used for medication dosing. ID Date Data Source [id number] 11/22/2020 06:58:27 AM EDT [facility] Name Value Range Interpretation Code Description Data Ema rce(s) Supporting Document(s) WBC 5.1 10*3/uL (4.1-11.0) [facility] RBC 2.90 10*6/uL (4.60-6.10) L [facility] HGB 8.1 g/dL (13.5-18.0) L [facility] HCT 24.4 % (41.0-53.0) L [facility] MCV 84.1 fL (80.0-95.0) [facility] MCH 27.9 pg (27.0-32.0) [facility] MCHC 33.2 g/dL (32.0-36.0) [facility] RDW 16.5 % (10.5-14.5) H [facility] PLT 125 10*3/uL (150-450) L [facility] MPV 9.3 fL (7.1-10.7) [facility] NEUT % 63.0 % (35.0-75.0) [facility] LYMPH % 11.0 % (16.0-52.0) L [facility] MONO % 15.8 % (0.0-8.0) H [facility] EOS % 8.3 % (0.0-5.0) H [facility] BASO % 1.9 % (0.0-4.0) [facility] NEUT # 3.2 10*3/uL (1.8-7.7) [facility] LYMPH # 0.6 10*3/uL (1.2-4.8) L [facility] MONO # 0.8 10*3/uL (0.0-0.8) [facility] Eosinophils [#/volume] in Blood by Automated count 0.4 10*3/uL (0.0-0 .5) [facility] BASO # 0.1 10*3/uL (0.0-0.2) [facility] ID Date Data Source [id number] 11/21/2020 09:42:27 PM EDT [facility] Name Value Range Interpretation Code Description Data Ema rce(s) Supporting Document(s) POC GLUCOSE 183 mg/dL (70-99) H [facility] NOTIFIED NURSEPERFORMED BY CLINICAL S TAFF ID Date Data Source [id number] 11/21/2020 06:01:55 PM EDT [facility] Name Value Range Interpretation Code Description Data Ema rce(s) Supporting Document(s) POC GLUCOSE 156 mg/dL (70-99) H [facility] NOTIFIED NURSEPERFORMED BY CLINICAL S TAFF ID Date Data Source [id number] 11/21/2020 01:53:27 PM EDT [facility] Name Value Range Interpretation Code Description Data Ema rce(s) Supporting Document(s) POC GLUCOSE 137 mg/dL (70-99) H [facility] NOTIFIED NURSEPERFORMED BY CLINICAL S TAFF ID Date Data Source [id number] 11/21/2020 08:51:25 AM EDT [facility] Name Value Range Interpretation Code Description Data Ema rce(s) Supporting Document(s) POC GLUCOSE 106 mg/dL (70-99) H [facility] PERFORMED BY CLINICAL STAFF ID Date Data Source [id number] 11/21/2020 08:20:09 AM EDT [facility] Name Value Range Interpretation Code Description Data Ema rce(s) Supporting Document(s) POC GLUCOSE 107 mg/dL (70-99) H [facility] NOTIFIED NURSEPERFORMED BY CLINICAL S TAFF ID Date Data Source [id number] 11/21/2020 08:40:54 AM EDT [facility] Name Value Range Interpretation Code Description Data Ema rce(s) Supporting Document(s) SODIUM 138 mmol/L (136-145) [facility] POTASSIUM 4.1 mmol/L (3.6-5.2) [facility] CHLORIDE 111 mmol/L (100-108) H [facility] CO2 18 mmol/L (22-31) L [facility] ANION GAP 9 mmol/L (7-16) [facility] UREA NITROGEN 39 mg/dL (7-24) H [facility] CREATININE 1.87 mg/dL (0.80-1.30) H [facility] BUN/CREAT RATIO 20.9 RATIO (10.0-20.0) H [facility] GLUCOSE 104 mg/dL (70-99) H [facility] CALCIUM 8.4 mg/dL (8.4-10.2) [facility] GFR 35 ml/min/1.73m2 (>59) L [facility] GFR ( AMER) 42 ml/min/1.73m2 (>59) L [facility] GFR INTERPRETATION [facility] --NORMAL KIDNEY FUNCTION OR MILD DISEASE - GFR >OR= 60CHRONIC KIDNEY DISEASE - GFR 15 - 59RENAL FAILURE - GFR <15 Est. GFR calculation based on the MDRDstudy equation, which assumes a steadystate for creatinine. Est. GFR should notbe used for medication dosing. ID Date Data Source [id number] 11/21/2020 08:19:58 AM EDT [facility] Name Value Range Interpretation Code Description Data Ema rce(s) Supporting Document(s) WBC 5.9 10*3/uL (4.1-11.0) [facility] RBC 2.94 10*6/uL (4.60-6.10) L [facility] HGB 8.3 g/dL (13.5-18.0) L [facility] HCT 24.9 % (41.0-53.0) L [facility] MCV 84.6 fL (80.0-95.0) [facility] MCH 28.1 pg (27.0-32.0) [facility] MCHC 33.2 g/dL (32.0-36.0) [facility] RDW 16.5 % (10.5-14.5) H [facility] PLT 123 10*3/uL (150-450) L [facility] MPV 9.1 fL (7.1-10.7) [facility] NEUT % 70.3 % (35.0-75.0) [facility] LYMPH % 6.6 % (16.0-52.0) L [facility] MONO % 14.9 % (0.0-8.0) H [facility] EOS % 7.2 % (0.0-5.0) H [facility] BASO % 1.0 % (0.0-4.0) [facility] NEUT # 4.2 10*3/uL (1.8-7.7) [facility] LYMPH # 0.4 10*3/uL (1.2-4.8) L [facility] MONO # 0.9 10*3/uL (0.0-0.8) H [facility] Eosinophils [#/volume] in Blood by Automated count 0.4 10*3/uL (0.0-0 .5) [facility] BASO # 0.1 10*3/uL (0.0-0.2) [facility] ID Date Data Source [id number] 2020 09:31:54 PM EDT [facility] Name Value Range Interpretation Code Description Data Ema rce(s) Supporting Document(s) POC GLUCOSE 146 mg/dL (70-99) H [facility] NOTIFIED NURSEPERFORMED BY CLINICAL S TAFF ID Date Data Source [id number] 2020 05:20:16 PM EDT [facility] Name Value Range Interpretation Code Description Data Ema rce(s) Supporting Document(s) POC GLUCOSE 131 mg/dL (70-99) H [facility] NOTIFIED NURSEPERFORMED BY CLINICAL S TAFF ID Date Data Source [id number] 2020 11:56:19 AM EDT [facility] Name Value Range Interpretation Code Description Data Ema rce(s) Supporting Document(s) POC GLUCOSE 194 mg/dL (70-99) H [facility] NOTIFIED NURSEPERFORMED BY CLINICAL S TAFF ID Date Data Source [id number] 2020 09:15:41 AM EDT [facility] Name Value Range Interpretation Code Description Data Ema rce(s) Supporting Document(s) POC GLUCOSE 107 mg/dL (70-99) H [facility] PERFORMED BY CLINICAL STAFF ID Date Data Source [id number] 2020 03:33:54 PM EDT [facility] Name Value Range Interpretation Code Description Data Ema rce(s) Supporting Document(s) IRON,TOTAL @ 15 ug/dL (35-150) L [facility] UIBC @ 184 ug/dL (130-375) [facility] TIBC @ 199 ug/dL (250-450) L [facility] % SATURATION 8 % (12-50) L [facility] ID Date Data Source [id number] 2020 03:33:54 PM EDT [facility] Name Value Range Interpretation Code Description Data Ema rce(s) Supporting Document(s) FERRITIN @ 66 ng/mL (26-388) [facility] ID Date Data Source [id number] 2020 09:16:02 AM EDT [facility] Name Value Range Interpretation Code Description Data Ema rce(s) Supporting Document(s) MAGNESIUM 2.3 mg/dL (1.7-2.4) [facility] ID Date Data Source [id number] 2020 09:16:02 AM EDT [facility] Name Value Range Interpretation Code Description Data Ema rce(s) Supporting Document(s) SODIUM 138 mmol/L (136-145) [facility] POTASSIUM 3.9 mmol/L (3.6-5.2) [facility] CHLORIDE 109 mmol/L (100-108) H [facility] CO2 21 mmol/L (22-31) L [facility] ANION GAP 8 mmol/L (7-16) [facility] UREA NITROGEN 47 mg/dL (7-24) H [facility] CREATININE 2.38 mg/dL (0.80-1.30) H [facility] BUN/CREAT RATIO 19.7 RATIO (10.0-20.0) [facility] GLUCOSE 97 mg/dL (70-99) [facility] CALCIUM 8.3 mg/dL (8.4-10.2) L [facility] GFR 27 ml/min/1.73m2 (>59) L [facility] GFR ( AMER) 32 ml/min/1.73m2 (>59) L [facility] GFR INTERPRETATION [facility] --NORMAL KIDNEY FUNCTION OR MILD DISEASE - GFR >OR= 60CHRONIC KIDNEY DISEASE - GFR 15 - 59RENAL FAILURE - GFR <15 Est. GFR calculation based on the MDRDstudy equation, which assumes a steadystate for creatinine. Est. GFR should notbe used for medication dosing. ID Date Data Source [id number] 2020 08:35:06 AM EDT [facility] Name Value Range Interpretation Code Description Data Ema rce(s) Supporting Document(s) WBC 7.3 10*3/uL (4.1-11.0) [facility] RBC 3.01 10*6/uL (4.60-6.10) L [facility] HGB 8.5 g/dL (13.5-18.0) L [facility] HCT 25.3 % (41.0-53.0) L [facility] MCV 84.2 fL (80.0-95.0) [facility] MCH 28.3 pg (27.0-32.0) [facility] MCHC 33.6 g/dL (32.0-36.0) [facility] RDW 16.0 % (10.5-14.5) H [facility] PLT 119 10*3/uL (150-450) L [facility] MPV 9.5 fL (7.1-10.7) [facility] NEUT % 76.4 % (35.0-75.0) H [facility] LYMPH % 5.5 % (16.0-52.0) L [facility] MONO % 11.3 % (0.0-8.0) H [facility] EOS % 6.0 % (0.0-5.0) H [facility] BASO % 0.8 % (0.0-4.0) [facility] NEUT # 5.6 10*3/uL (1.8-7.7) [facility] LYMPH # 0.4 10*3/uL (1.2-4.8) L [facility] MONO # 0.8 10*3/uL (0.0-0.8) [facility] Eosinophils [#/volume] in Blood by Automated count 0.4 10*3/uL (0.0-0 .5) [facility] BASO # 0.1 10*3/uL (0.0-0.2) [facility] ID Date Data Source [id number] 2020 06:43:31 AM EDT [facility] Name Value Range Interpretation Code Description Data Ema rce(s) Supporting Document(s) POC GLUCOSE 96 mg/dL (70-99) [facility] PERFORMED BY CLINICAL STAFF ID Date Data Source [id number] 2020 12:23:25 AM EDT [facility] Name Value Range Interpretation Code Description Data Ema rce(s) Supporting Document(s) POC GLUCOSE 108 mg/dL (70-99) H [facility] PERFORMED BY CLINICAL STAFF ID Date Data Source [id number] 11/19/2020 06:15:18 PM EDT [facility] Name Value Range Interpretation Code Description Data Ema rce(s) Supporting Document(s) POC GLUCOSE 153 mg/dL (70-99) H [facility] NOTIFIED NURSEPERFORMED BY CLINICAL S TAFF ID Date Data Source [id number] 2020 07:14:05 AM EDT [facility] Name Value Range Interpretation Code Description Data Ema rce(s) Supporting Document(s) POC GLUCOSE 120 mg/dL (70-99) H [facility] NOTIFIED NURSEPERFORMED BY CLINICAL S TAFF ID Date Data Source [id number] 11/19/2020 02:25:25 PM EDT [facility] Name Value Range Interpretation Code Description Data Ema rce(s) Supporting Document(s) TOTAL PROTEIN 5.1 g/dL (6.4-8.2) L [facility] ALBUMIN 1.9 g/dL (3.2-4.5) L [facility] GLOBULIN 3.2 g/dL (2.7-4.3) [facility] ALB/GLOB RATIO 0.6 RATIO [facility] BILIRUBIN,TOTAL 0.7 mg/dL (0.0-1.0) [facility] PLEASE NOTE:Total bilirubin results may be falselyelevated in patients taking Eltrombopag. BILIRUBIN,CONJUGATED 0.3 mg/dL (0.0-0.3) [facility] BILIRUBIN,UNCONJ. 0.4 mg/dL (0.0-0.7) [facility] ALKALINE PHOSPHATASE 63 U/L (45-117) [facility] AST (SGOT) 43 U/L (11-39) H [facility] ALT (SGPT) 21 U/L (12-78) [facility] ID Date Data Source [id number] 11/19/2020 08:23:57 AM EDT [facility] Name Value Range Interpretation Code Description Data Ema rce(s) Supporting Document(s) VANCOMYCIN RANDOM 13.1 ug/mL [facility] THERAPEUTIC RANGE IS ONLY AVAILABLE FOR PEAK AND TROUGH SPECIMENS. RANDOM LEVEL RESULTS MUST BE INTERPRETED BY THE PHYSICIAN. ID Date Data Source [id number] 11/19/2020 08:23:57 AM EDT [facility] Name Value Range Interpretation Code Description Data Ema rce(s) Supporting Document(s) SODIUM 136 mmol/L (136-145) [facility] POTASSIUM 3.7 mmol/L (3.6-5.2) [facility] CHLORIDE 105 mmol/L (100-108) [facility] CO2 19 mmol/L (22-31) L [facility] ANION GAP 12 mmol/L (7-16) [facility] UREA NITROGEN 50 mg/dL (7-24) H [facility] CREATININE 2.59 mg/dL (0.80-1.30) H [facility] BUN/CREAT RATIO 19.3 RATIO (10.0-20.0) [facility] GLUCOSE 89 mg/dL (70-99) [facility] CALCIUM 8.2 mg/dL (8.4-10.2) L [facility] GFR 24 ml/min/1.73m2 (>59) L [facility] GFR ( AMER) 29 ml/min/1.73m2 (>59) L [facility] GFR INTERPRETATION [facility] --NORMAL KIDNEY FUNCTION OR MILD DISEASE - GFR >OR= 60CHRONIC KIDNEY DISEASE - GFR 15 - 59RENAL FAILURE - GFR <15 Est. GFR calculation based on the MDRDstudy equation, which assumes a steadystate for creatinine. Est. GFR should notbe used for medication dosing. ID Date Data Source [id number] 11/19/2020 08:02:08 AM EDT [facility] Name Value Range Interpretation Code Description Data Ema rce(s) Supporting Document(s) WBC 10.1 10*3/uL (4.1-11.0) [facility] RBC 2.79 10*6/uL (4.60-6.10) L [facility] HGB 7.9 g/dL (13.5-18.0) L [facility] HCT 23.6 % (41.0-53.0) L [facility] MCV 84.5 fL (80.0-95.0) [facility] MCH 28.2 pg (27.0-32.0) [facility] MCHC 33.4 g/dL (32.0-36.0) [facility] RDW 16.1 % (10.5-14.5) H [facility] PLT 104 10*3/uL (150-450) L [facility] MPV 9.2 fL (7.1-10.7) [facility] ID Date Data Source [id number] 11/19/2020 06:17:02 AM EDT [facility] Name Value Range Interpretation Code Description Data Ema rce(s) Supporting Document(s) POC GLUCOSE 108 mg/dL (70-99) H [facility] PERFORMED BY CLINICAL STAFF ID Date Data Source [id number] 11/19/2020 12:16:43 AM EDT [facility] Name Value Range Interpretation Code Description Data Ema rce(s) Supporting Document(s) POC GLUCOSE 148 mg/dL (70-99) H [facility] PERFORMED BY CLINICAL STAFF ID Date Data Source [id number] 2020 07:20:38 AM EDT [facility] SPECIMEN DESCRIPTION URINE, COLLE CTION METHOD NOT SPECIFIEDCULTURE RESULTS NO GROWTHREPORT STATUS FINAL 2020 Name Value Range Interpretation Code Description Data Ema rce(s) Supporting Document(s) ID Date Data Source [id number] 11/18/2020 05:46:48 PM EDT [facility] Name Value Range Interpretation Code Description Data Ema rce(s) Supporting Document(s) POC GLUCOSE 180 mg/dL (70-99) H [facility] NOTIFIED NURSEPERFORMED BY CLINICAL S TAFF ID Date Data Source [id number] 11/18/2020 01:55:22 PM EDT [facility] Name Value Range Interpretation Code Description Data Ema rce(s) Supporting Document(s) POC GLUCOSE 156 mg/dL (70-99) H [facility] PERFORMED BY CLINICAL STAFF ID Date Data Source [id number] 11/18/2020 01:26:32 PM EDT [facility] Name Value Range Interpretation Code Description Data Ema rce(s) Supporting Document(s) URINE WBC (0-5) [facility] URINE RBC (0-2) [facility] EPITHELIAL CELLS 1+ [HPF] [facility] BACTERIA 1+ [HPF] [facility] WBC CLUMPING 1+ [facility] [place] ID Date Data Source [id number] 11/18/2020 01:14:40 PM EDT [facility] Name Value Range Interpretation Code Description Data Ema rce(s) Supporting Document(s) COLOR [facility] APPEARANCE [facility] SPEC GRAV URINE 1.016 (1.003-1.030) [facility] PH URINE 5.5 (5.0-7.5) [facility] LEUK ESTERASE 3+ (NEG) A [facility] NITRITE URINE (NEG) [facility] PROTEIN URINE 1+ (NEG) A [facility] GLUCOSE URINE (NEG) [facility] KETONE URINE (NEG) [facility] UROBILINOGEN 0.2 mg/dL (0-1.0) [facility] BILIRUBIN URINE (NEG) [facility] BLOOD/HGB URINE 3+ (NEG) A [facility] ID Date Data Source [id number] 11/21/2020 10:04:31 AM EDT [facility] SPECIMEN DESCRIPTION PERIPHERALSP ECIAL REQUESTS NONEGRAM STAIN GRAM NEGATIVE RODSALERTED CRITICAL RESULT TO DOREEN LIPSCOMB 5SIR @ 0940 11/19/2020 [place] [id number] CULTURE RESULTS PSEUDOMONAS AERUGINOSA PSEUDOMONAS AERUGINOSA BY MOLECULAR METHOD. BLAIR NUMBERS CAN NOT BE DIRECTLY COMPARED ACROSS DIFFERENT ANTIBIOTICS. BLAIR VALUES ARE OCCASIONALLY USEFUL. SUSCEPTIBLE OR RESISTANT INTERPRETATIONS ALONE ARE SUFFICIENT FOR ANTIBIOTIC SELECTION IN THE GREAT MAJORITY OF INFECTIONS.MOLECULAR TESTING IS BEING PERFORMED WITH POSSIBLE PRELIMINARYIDENTIFICATION TO FOLLOWALL MOLECULAR TEST RESULTS WILL BE CONFIRMED USING CONVENTIONALLABORATORY METHODS.THIS MOLECULAR TEST SCREENS FOR THE FOLLOWING GRAM NEGATIVE BACTERIA:ACINETOBACTER SPP, CITROBACTER SPP, ENTEROBACTE R SPP, PROTEUS SPP,ESCHERICHIA COLI, KLEBSIELLA PNEUMONIAE, KLEBSIELLA OXYTOCA,PSEUDOMONAS AERUGINOSA. THIS MOLECULAR TEST SCREENS FOR THE FOLLOWINGRESISTANCE GENES: EXTENDED SPECTRUM BETA LACTAMASE (ESBL) ANDCARBAPENEMASE (CRE). REPORT STATUS FINAL 06/23/2021ORGANISM PSEUDOMONAS AERUGINOSAMETHOD MICAMIKACIN <=2 SUSCEPTIBLECEFTAZIDIME <=1 SUSCEPTIBLECIPROFLOXACIN <=0.25 SUSCEPTIBLEGENTAMICIN <=1 SUSCEPTIBLELEVOFLOXACIN 0.5 SUSCEPTIB LEMEROPENEM <=0.25 SUSCEPTIBLEPIPERACILLIN/TAZOBACTAM <=4 SUSCEPTIBLETOBRAMYCIN <=1 SUSCEPTIBLE Name Value Range Interpretation Code Description Data Ema rce(s) Supporting Document(s) ID Date Data Source [id number] 11/23/2020 11:15:10 AM EDT [facility] SPECIMEN DESCRIPTION PERIPHERALSP ECIAL REQUESTS NONECULTURE RESULTS NO GROWTH 5 DAYSREPORT STATUS FINAL 11/23/2020 Name Value Range Interpretation Code Description Data Ema rce(s) Supporting Document(s) ID Date Data Source [id number] 11/18/2020 09:33:00 AM EDT [facility] DATE OF EXAM: 11/18/2020XAM: Ultrasound vascular: Bilateral lower extremity venous. CLINICAL HISTORY: SOB S/P SURGERY TECHNIQUE: Duplex imaging with color-flow Doppler and spectral analysis was used to study the deep venous system from the common femoral to the calf. A combination of compressibility and flow augmentation was utilized to assess patency. Flow is identified in the common femoral, femoral, popliteal, posterior tibial, anterior tibial and peroneal veins. There is no evidence of deep venous thrombosis. A fluid collection is seen in the left popliteal fossa measuring 2.3 x 1.8 x 1.2 cm which is likely a Stevens's cyst. IMPRESSION: No evidence of deep venous thrombosis. 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 Professional interpretation performed at [facility] .End of diagnostic report for accession: [id number] Interpreted: Charbel Vizcaino MDTranscribed: 11/18/2020 09:32 AMSigned: 11/18/2020 09:33 AM Charbel Vizcaino MD [facility] # [id number] BILL # [id number] Name Value Range Interpretation Code Description Data Ema rce(s) Supporting Document(s) ID Date Data Source [id number] 11/18/2020 07:03:40 AM EDT [facility] Name Value Range Interpretation Code Description Data Ema rce(s) Supporting Document(s) POC GLUCOSE 117 mg/dL (70-99) H [facility] PERFORMED BY CLINICAL STAFF ID Date Data Source [id number] 11/18/2020 07:24:24 AM EDT [facility] Name Value Range Interpretation Code Description Data Ema rce(s) Supporting Document(s) MAGNESIUM 2.2 mg/dL (1.7-2.4) [facility] ID Date Data Source [id number] 11/18/2020 07:24:24 AM EDT [facility] Name Value Range Interpretation Code Description Data Ema rce(s) Supporting Document(s) NT PRO BNP 223 pg/mL (0-450) [facility] ID Date Data Source [id number] 11/18/2020 07:24:24 AM EDT [facility] Name Value Range Interpretation Code Description Data Ema rce(s) Supporting Document(s) TROPONIN I <0.05 ng/mL (<0.05) [facility] Less than 0.05: Myocardial injury unlike lyGreater than or equal to 0.05: Highly suggestive of myocardial injuryCorrelation with rise and/or fall ofserial troponins, clinical symptomsand ECG changes is necessary. ID Date Data Source [id number] 11/18/2020 07:24:24 AM EDT [facility] Name Value Range Interpretation Code Description Data Ema rce(s) Supporting Document(s) SODIUM 137 mmol/L (136-145) [facility] POTASSIUM 4.1 mmol/L (3.6-5.2) [facility] CHLORIDE 105 mmol/L (100-108) [facility] CO2 25 mmol/L (22-31) [facility] ANION GAP 7 mmol/L (7-16) [facility] UREA NITROGEN 50 mg/dL (7-24) H [facility] CREATININE 2.22 mg/dL (0.80-1.30) H [facility] BUN/CREAT RATIO 22.5 RATIO (10.0-20.0) H [facility] GLUCOSE 127 mg/dL (70-99) H [facility] CALCIUM 9.3 mg/dL (8.4-10.2) [facility] GFR 29 ml/min/1.73m2 (>59) L [facility] GFR ( AMER) 35 ml/min/1.73m2 (>59) L [facility] GFR INTERPRETATION [facility] --NORMAL KIDNEY FUNCTION OR MILD DISEASE - GFR >OR= 60CHRONIC KIDNEY DISEASE - GFR 15 - 59RENAL FAILURE - GFR <15 Est. GFR calculation based on the MDRDstudy equation, which assumes a steadystate for creatinine. Est. GFR should notbe used for medication dosing. ID Date Data Source [id number] 11/18/2020 06:53:47 AM EDT [facility] Name Value Range Interpretation Code Description Data Ema rce(s) Supporting Document(s) WBC 3.7 10*3/uL (4.1-11.0) L [facility] RBC 3.44 10*6/uL (4.60-6.10) L [facility] HGB 9.6 g/dL (13.5-18.0) L [facility] HCT 29.1 % (41.0-53.0) L [facility] MCV 84.5 fL (80.0-95.0) [facility] MCH 27.9 pg (27.0-32.0) [facility] MCHC 33.1 g/dL (32.0-36.0) [facility] RDW 16.2 % (10.5-14.5) H [facility] PLT 116 10*3/uL (150-450) L [facility] MPV 8.9 fL (7.1-10.7) [facility] NEUT % 92.1 % (35.0-75.0) H [facility] LYMPH % 3.1 % (16.0-52.0) L [facility] MONO % 2.5 % (0.0-8.0) [facility] EOS % 2.1 % (0.0-5.0) [facility] BASO % 0.2 % (0.0-4.0) [facility] NEUT # 3.4 10*3/uL (1.8-7.7) [facility] LYMPH # 0.1 10*3/uL (1.2-4.8) L [facility] MONO # 0.1 10*3/uL (0.0-0.8) [facility] Eosinophils [#/volume] in Blood by Automated count 0.1 10*3/uL (0.0-0 .5) [facility] BASO # 0.0 10*3/uL (0.0-0.2) [facility] ID Date Data Source [id number] 11/18/2020 07:02:00 AM EDT [facility] Name Value Range Interpretation Code Description Data Ema rce(s) Supporting Document(s) LACTIC ACID 1.9 mmol/L (0.4-2.0) [facility] ID Date Data Source [id number] 11/18/2020 08:13:00 AM EDT [facility] DATE OF EXAM: 11/18/2020XAM: Portable c hest INDICATION: DYSPNEA COMPARISON: 02/18/2011 TECHNIQUE: AP upright. There is a limited degree of inspiration with mild accentuation of the pulmonary vascular markings. No focal area of pneumonia or atelectasis is seen. The mediastinum, heart, and pulmonary vascularity are within normal limits. IMPRESSION: No acute disease. Professional interpretation performed at [facility] .End of diagnostic report for accession: [id number] Interpreted: Charbel Vizcaino MDTranscribed: 11/18/2020 08:12 AMSigned: 11/18/2020 08:13 AM Charbel Vizcaino MD [facility] # [id number] [facility] # [id number] Name Value Range Interpretation Code Description Data Ema rce(s) Supporting Document(s) ID Date Data Source [id number] 11/18/2020 12:01:07 AM EDT [facility] Name Value Range Interpretation Code Description Data Ema rce(s) Supporting Document(s) POC GLUCOSE 156 mg/dL (70-99) H [facility] PERFORMED BY CLINICAL STAFF ID Date Data Source [id number] 11/17/2020 05:55:37 PM EDT [facility] Name Value Range Interpretation Code Description Data Ema rce(s) Supporting Document(s) POC GLUCOSE 137 mg/dL (70-99) H [facility] NOTIFIED NURSEPERFORMED BY CLINICAL S TAFF ID Date Data Source [id number] 11/17/2020 12:25:31 PM EDT [facility] Name Value Range Interpretation Code Description Data Ema rce(s) Supporting Document(s) POC GLUCOSE 131 mg/dL (70-99) H [facility] NOTIFIED NURSEPERFORMED BY CLINICAL S TAFF ID Date Data Source [id number] 11/17/2020 08:55:54 AM EDT [facility] Name Value Range Interpretation Code Description Data Ema rce(s) Supporting Document(s) SODIUM 141 mmol/L (136-145) [facility] POTASSIUM 4.1 mmol/L (3.6-5.2) [facility] CHLORIDE 109 mmol/L (100-108) H [facility] CO2 23 mmol/L (22-31) [facility] ANION GAP 9 mmol/L (7-16) [facility] UREA NITROGEN 51 mg/dL (7-24) H [facility] CREATININE 2.05 mg/dL (0.80-1.30) H [facility] BUN/CREAT RATIO 24.9 RATIO (10.0-20.0) H [facility] GLUCOSE 107 mg/dL (70-99) H [facility] CALCIUM 9.2 mg/dL (8.4-10.2) [facility] GFR 32 ml/min/1.73m2 (>59) L [facility] GFR ( AMER) 38 ml/min/1.73m2 (>59) L [facility] GFR INTERPRETATION [facility] --NORMAL KIDNEY FUNCTION OR MILD DISEASE - GFR >OR= 60CHRONIC KIDNEY DISEASE - GFR 15 - 59RENAL FAILURE - GFR <15 Est. GFR calculation based on the MDRDstudy equation, which assumes a steadystate for creatinine. Est. GFR should notbe used for medication dosing. ID Date Data Source [id number] 11/17/2020 08:35:35 AM EDT [facility] Name Value Range Interpretation Code Description Data Ema rce(s) Supporting Document(s) WBC 4.5 10*3/uL (4.1-11.0) [facility] [place] RBC 3.11 10*6/uL (4.60-6.10) L [facility] HGB 8.5 g/dL (13.5-18.0) L [facility] HCT 26.5 % (41.0-53.0) L [facility] MCV 85.3 fL (80.0-95.0) [facility] MCH 27.4 pg (27.0-32.0) [facility] MCHC 32.1 g/dL (32.0-36.0) [facility] RDW 16.2 % (10.5-14.5) H [facility] PLT 102 10*3/uL (150-450) L [facility] MPV 9.4 fL (7.1-10.7) [facility] NEUT % 77.2 % (35.0-75.0) H [facility] LYMPH % 7.2 % (16.0-52.0) L [facility] MONO % 10.8 % (0.0-8.0) H [facility] EOS % 4.3 % (0.0-5.0) [facility] BASO % 0.5 % (0.0-4.0) [facility] NEUT # 3.5 10*3/uL (1.8-7.7) [facility] LYMPH # 0.3 10*3/uL (1.2-4.8) L [facility] MONO # 0.5 10*3/uL (0.0-0.8) [facility] Eosinophils [#/volume] in Blood by Automated count 0.2 10*3/uL (0.0-0 .5) [facility] BASO # 0.0 10*3/uL (0.0-0.2) [facility] ID Date Data Source [id number] 11/17/2020 05:32:32 AM EDT [facility] Name Value Range Interpretation Code Description Data Ema rce(s) Supporting Document(s) POC GLUCOSE 112 mg/dL (70-99) H [facility] NOTIFIED NURSEPERFORMED BY CLINICAL S TAFF ID Date Data Source [id number] 11/17/2020 03:04:02 AM EDT [facility] Name Value Range Interpretation Code Description Data Ema rce(s) Supporting Document(s) STOOL OCCULT BLOOD (NEG) [facility] ID Date Data Source [id number] 11/17/2020 12:19:03 AM EDT [facility] Name Value Range Interpretation Code Description Data Ema rce(s) Supporting Document(s) POC GLUCOSE 134 mg/dL (70-99) H [facility] NOTIFIED NURSEPERFORMED BY CLINICAL S TAFF ID Date Data Source [id number] 11/16/2020 06:51:12 PM EDT [facility] Name Value Range Interpretation Code Description Data Ema rce(s) Supporting Document(s) POC GLUCOSE 120 mg/dL (70-99) H [facility] PERFORMED BY CLINICAL STAFF ID Date Data Source [id number] 11/16/2020 06:47:00 PM EDT [facility] Naranjo al DATE OF EXAM: 1CT ABDOMEN AND P SHAWN WITHOUT IV CONTRAST INDICATION:WORSENING KIDNEY FUNCTION TECHNIQUE: Unenhanced study. One or more of the following dose reduction techniques were utilized in effectively lowering the radiation dose for this examination: Automated Exposure Control, Adjustment of the mA and/or kV according to patient size, or Iterative Reconstruction. COMPARISON:Preoperative 04/20/2018 FINDINGS: Bilateral double-J stents are noted in place. Patient has bladder resection and ileal conduit. Mild bilateral hydronephrosis is seen. No renal calculi bilaterally. No renal parenchymal mass visualized. A brachytherapy seeds overlie the prostate bed. Surgical drain is seen in the pelvis. Proximal aspect of the right stent is seen in the right upper pole calyx. The proximal aspect of the left ureteral stent is in the renal pelvis. Perinephric stranding noted bilaterally, nonspecific. Asymmetric left-sided retroperitoneal edema is seen, possibly related to cirrhosis and ascites. Pulmonary: No pleural or pericardial effusion. No pulmonary consolidation. Hepatobiliary: Hepatic morphology compatible with cirrhosis. The spleen is enlarged. Perihepatic and perisplenic trace ascites noted. Multiple small layering gallstones seen in the gallbladder lumen. Endocrine: Normal pancreas and adrenal glands. Lymphatic:No periaortic, iliac, or inguinal adenopathy. Gastrointestinal: Normal stomach and duodenum. Normal small bowel and terminal ileum. Normal appendix No colitis or obstructing masses. Peritoneum: No ascites, mesenteric mass, or adenopathy. No free air. C ardiovascular: Normal caliber aorta. Musculoskeletal: No focal lytic or blastic lesion of bone. IMPRESSION:Mild bilateral hydronephrosis extending to the ileal conduit. Double-J ureteral stents appear in appropriate position. X7End of diagnostic report for accession: [id number] Interpreted: Charbel Kilpatrick MDTranscribed: 11/16/2020 06:41 PMSigned: 11/16/2020 06:47 PM Charbel Kilpatrick MD ------- [facility] # [id number] [facility] # [id number] Name Value Range Interpretation Code Description Data Ema rce(s) Supporting Document(s) ID Date Data Source [id number] 11/16/2020 01:15:02 PM EDT [facility] Name Value Range Interpretation Code Description Data Ema rce(s) Supporting Document(s) FLUID CREATININE 1.75 mg/dL [facility] ID Date Data Source [id number] 11/16/2020 12:52:45 PM EDT [facility] Name Value Range Interpretation Code Description Data Ema rce(s) Supporting Document(s) FLUID SOURCE [facility] [place] ID Date Data Source [id number] 11/16/2020 12:25:11 PM EDT [facility] Name Value Range Interpretation Code Description Data Ema rce(s) Supporting Document(s) POC GLUCOSE 149 mg/dL (70-99) H [facility] PERFORMED BY CLINICAL STAFF ID Date Data Source [id number] 11/16/2020 01:18:38 PM EDT [facility] Name Value Range Interpretation Code Description Data Ema rce(s) Supporting Document(s) SODIUM 142 mmol/L (136-145) [facility] POTASSIUM 3.9 mmol/L (3.6-5.2) [facility] CHLORIDE 109 mmol/L (100-108) H [facility] CO2 27 mmol/L (22-31) [facility] ANION GAP 6 mmol/L (7-16) L [facility] UREA NITROGEN 48 mg/dL (7-24) H [facility] CREATININE 1.97 mg/dL (0.80-1.30) H [facility] BUN/CREAT RATIO 24.4 RATIO (10.0-20.0) H [facility] GLUCOSE 149 mg/dL (70-99) H [facility] CALCIUM 9.4 mg/dL (8.4-10.2) [facility] TOTAL PROTEIN 6.5 g/dL (6.4-8.2) [facility] ALBUMIN 2.5 g/dL (3.2-4.5) L [facility] GLOBULIN 4.0 g/dL (2.7-4.3) [facility] ALB/GLOB RATIO 0.6 RATIO [facility] ALKALINE PHOSPHATASE 72 U/L (45-117) [facility] BILIRUBIN,TOTAL 0.7 mg/dL (0.0-1.0) [facility] PLEASE NOTE:Total bilirubin results may be falselyelevated in patients taking Eltrombopag. AST (SGOT) 33 U/L (11-39) [facility] ALT (SGPT) 13 U/L (12-78) [facility] GFR 33 ml/min/1.73m2 (>59) L [facility] GFR ( AMER) 40 ml/min/1.73m2 (>59) L [facility] GFR INTERPRETATION [facility] --NORMAL KIDNEY FUNCTION OR MILD DISEASE - GFR >OR= 60CHRONIC KIDNEY DISEASE - GFR 15 - 59RENAL FAILURE - GFR <15 Est. GFR calculation based on the MDRDstudy equation, which assumes a steadystate for creatinine. Est. GFR should notbe used for medication dosing. ID Date Data Source [id number] 11/16/2020 12:50:19 PM EDT [facility] Name Value Range Interpretation Code Description Data Ema rce(s) Supporting Document(s) WBC 6.5 10*3/uL (4.1-11.0) [facility] [place] RBC 3.22 10*6/uL (4.60-6.10) L [facility] HGB 8.9 g/dL (13.5-18.0) L [facility] HCT 27.3 % (41.0-53.0) L [facility] MCV 84.7 fL (80.0-95.0) [facility] MCH 27.6 pg (27.0-32.0) [facility] MCHC 32.6 g/dL (32.0-36.0) [facility] RDW 16.3 % (10.5-14.5) H [facility] PLT 102 10*3/uL (150-450) L [facility] MPV 8.9 fL (7.1-10.7) [facility] NEUT % 84.9 % (35.0-75.0) H [facility] LYMPH % 3.8 % (16.0-52.0) L [facility] MONO % 9.5 % (0.0-8.0) H [facility] EOS % 1.7 % (0.0-5.0) [facility] BASO % 0.1 % (0.0-4.0) [facility] NEUT # 5.5 10*3/uL (1.8-7.7) [facility] LYMPH # 0.2 10*3/uL (1.2-4.8) L [facility] MONO # 0.6 10*3/uL (0.0-0.8) [facility] Eosinophils [#/volume] in Blood by Automated count 0.1 10*3/uL (0.0-0 .5) [facility] BASO # 0.0 10*3/uL (0.0-0.2) [facility] ID Date Data Source [id number] 11/16/2020 07:25:10 AM EDT [facility] Name Value Range Interpretation Code Description Data Ema rce(s) Supporting Document(s) SODIUM 142 mmol/L (136-145) [facility] POTASSIUM 4.4 mmol/L (3.6-5.2) [facility] CHLORIDE 111 mmol/L (100-108) H [facility] CO2 25 mmol/L (22-31) [facility] ANION GAP 6 mmol/L (7-16) L [facility] UREA NITROGEN 48 mg/dL (7-24) H [facility] CREATININE 1.86 mg/dL (0.80-1.30) H [facility] BUN/CREAT RATIO 25.8 RATIO (10.0-20.0) H [facility] GLUCOSE 142 mg/dL (70-99) H [facility] CALCIUM 9.5 mg/dL (8.4-10.2) [facility] GFR 35 ml/min/1.73m2 (>59) L [facility] GFR ( AMER) 43 ml/min/1.73m2 (>59) L [facility] GFR INTERPRETATION [facility] --NORMAL KIDNEY FUNCTION OR MILD DISEASE - GFR >OR= 60CHRONIC KIDNEY DISEASE - GFR 15 - 59RENAL FAILURE - GFR <15 Est. GFR calculation based on the MDRDstudy equation, which assumes a steadystate for creatinine. Est. GFR should notbe used for medication dosing. ID Date Data Source [id number] 11/16/2020 06:44:48 AM EDT [facility] Name Value Range Interpretation Code Description Data Ema rce(s) Supporting Document(s) WBC 6.0 10*3/uL (4.1-11.0) [facility] [place] RBC 3.20 10*6/uL (4.60-6.10) L [facility] HGB 9.2 g/dL (13.5-18.0) L [facility] HCT 27.4 % (41.0-53.0) L [facility] MCV 85.5 fL (80.0-95.0) [facility] MCH 28.6 pg (27.0-32.0) [facility] MCHC 33.4 g/dL (32.0-36.0) [facility] RDW 16.3 % (10.5-14.5) H [facility] PLT 92 10*3/uL (150-450) L [facility] MPV 9.2 fL (7.1-10.7) [facility] NEUT % 82.5 % (35.0-75.0) H [facility] LYMPH % 3.8 % (16.0-52.0) L [facility] MONO % 11.3 % (0.0-8.0) H [facility] EOS % 2.2 % (0.0-5.0) [facility] BASO % 0.2 % (0.0-4.0) [facility] NEUT # 5.0 10*3/uL (1.8-7.7) [facility] LYMPH # 0.2 10*3/uL (1.2-4.8) L [facility] MONO # 0.7 10*3/uL (0.0-0.8) [facility] Eosinophils [#/volume] in Blood by Automated count 0.1 10*3/uL (0.0-0 .5) [facility] BASO # 0.0 10*3/uL (0.0-0.2) [facility] ID Date Data Source [id number] 11/16/2020 06:06:03 AM EDT [facility] Name Value Range Interpretation Code Description Data Ema rce(s) Supporting Document(s) POC GLUCOSE 141 mg/dL (70-99) H [facility] NOTIFIED NURSEPERFORMED BY CLINICAL S TAFF ID Date Data Source [id number] 11/16/2020 12:07:42 AM EDT [facility] Name Value Range Interpretation Code Description Data Ema rce(s) Supporting Document(s) POC GLUCOSE 134 mg/dL (70-99) H [facility] NOTIFIED NURSEPERFORMED BY CLINICAL S TAFF ID Date Data Source [id number] 11/15/2020 06:20:11 PM EDT [facility] Name Value Range Interpretation Code Description Data Ema rce(s) Supporting Document(s) POC GLUCOSE 155 mg/dL (70-99) H [facility] NOTIFIED NURSEPERFORMED BY CLINICAL S TAFF ID Date Data Source [id number] 11/15/2020 12:38:28 PM EDT [facility] Name Value Range Interpretation Code Description Data Ema rce(s) Supporting Document(s) POC GLUCOSE 160 mg/dL (70-99) H [facility] NOTIFIED NURSEPERFORMED BY CLINICAL S TAFF ID Date Data Source [id number] 11/15/2020 12:50:54 PM EDT [facility] Name Value Range Interpretation Code Description Data Ema rce(s) Supporting Document(s) SODIUM 141 mmol/L (136-145) [facility] POTASSIUM 4.1 mmol/L (3.6-5.2) [facility] CHLORIDE 108 mmol/L (100-108) [facility] CO2 26 mmol/L (22-31) [facility] ANION GAP 7 mmol/L (7-16) [facility] UREA NITROGEN 36 mg/dL (7-24) H [facility] CREATININE 1.68 mg/dL (0.80-1.30) H [facility] BUN/CREAT RATIO 21.4 RATIO (10.0-20.0) H [facility] GLUCOSE 152 mg/dL (70-99) H [facility] CALCIUM 9.7 mg/dL (8.4-10.2) [facility] TOTAL PROTEIN 6.5 g/dL (6.4-8.2) [facility] ALBUMIN 2.7 g/dL (3.2-4.5) L [facility] GLOBULIN 3.8 g/dL (2.7-4.3) [facility] ALB/GLOB RATIO 0.7 RATIO [facility] ALKALINE PHOSPHATASE 72 U/L (45-117) [facility] BILIRUBIN,TOTAL 0.7 mg/dL (0.0-1.0) [facility] PLEASE NOTE:Total bilirubin results may be falselyelevated in patients taking Eltrombopag. AST (SGOT) 31 U/L (11-39) [facility] ALT (SGPT) 18 U/L (12-78) [facility] GFR 40 ml/min/1.73m2 (>59) L [facility] GFR ( AMER) 48 ml/min/1.73m2 (>59) L [facility] GFR INTERPRETATION [facility] --NORMAL KIDNEY FUNCTION OR MILD DISEASE - GFR >OR= 60CHRONIC KIDNEY DISEASE - GFR 15 - 59RENAL FAILURE - GFR <15 Est. GFR calculation based on the MDRDstudy equation, which assumes a steadystate for creatinine. Est. GFR should notbe used for medication dosing. ID Date Data Source [id number] 11/15/2020 12:11:25 PM EDT [facility] Name Value Range Interpretation Code Description Data Ema rce(s) Supporting Document(s) WBC 7.9 10*3/uL (4.1-11.0) [facility] [place] RBC 3.22 10*6/uL (4.60-6.10) L [facility] HGB 9.0 g/dL (13.5-18.0) L [facility] HCT 27.3 % (41.0-53.0) L [facility] MCV 84.8 fL (80.0-95.0) [facility] MCH 28.1 pg (27.0-32.0) [facility] MCHC 33.1 g/dL (32.0-36.0) [facility] RDW 16.1 % (10.5-14.5) H [facility] PLT 112 10*3/uL (150-450) L [facility] MPV 9.3 fL (7.1-10.7) [facility] ID Date Data Source [id number] 11/15/2020 05:46:43 AM EDT [facility] [place] Name Value Range Interpretation Code Description Data Ema rce(s) Supporting Document(s) POC GLUCOSE 156 mg/dL (70-99) H [facility] [facility] NOTIFIED NURSEPERFORMED BY CLINICAL S TAFF ID Date Data Source [id number] 11/15/2020 12:06:03 AM EDT [facility] Name Value Range Interpretation Code Description Data Ema rce(s) Supporting Document(s) POC GLUCOSE 153 mg/dL (70-99) H [facility] NOTIFIED NURSEPERFORMED BY CLINICAL S TAFF ID Date Data Source [id number] 11/14/2020 08:19:00 PM EDT [facility] DATE OF EXAM: 11/14/2020XAM: ABDOMINAL X-RAY. HISTORY: STENT TECHNIQUE: Single supine view the abdomen is obtained. Portions of the upper abdomen are excluded from the image [id number]. COMPARISON: Abdominal x-ray dated 02/18/2011. CT abdomen and pelvis dated 04/20/2018. FINDINGS/IMPRESSION: Bilateral ureteral stents are present with the proximal portions projecting over the renal shadows and the distal portions projecting over the ileoconduit in the left lower quadrant. There is surgical drain projecting over the pelvis. Fiducials project over the region of the prostate. Bowel gas pattern is nonobstructive. Mild bilateral hip osteoarthritis. Professional interpretation performed at [facility] .End of diagnostic report for accession: [id number] Interpreted: Marielena Simmons MDTranscribed: 11/14/2020 08:17 PMSigned: 11/14/2020 08:19 PM Marielena Simmons MD [facility] # [id number] BILL # [id number] Name Value Range Interpretation Code Description Data Ema rce(s) Supporting Document(s) ID Date Data Source [id number] 11/14/2020 06:01:30 PM EDT [facility] Name Value Range Interpretation Code Description Data Ema rce(s) Supporting Document(s) POC GLUCOSE 147 mg/dL (70-99) H [facility] PERFORMED BY CLINICAL STAFF ID Date Data Source [id number] 11/14/2020 11:20:05 AM EDT [facility] Name Value Range Interpretation Code Description Data Ema rce(s) Supporting Document(s) POC GLUCOSE 182 mg/dL (70-99) H [facility] NOTIFIED NURSEPERFORMED BY CLINICAL S TAFF ID Date Data Source [id number] 11/14/2020 08:29:58 AM EDT [facility] Name Value Range Interpretation Code Description Data Ema rce(s) Supporting Document(s) SODIUM 143 mmol/L (136-145) [facility] POTASSIUM 4.7 mmol/L (3.6-5.2) [facility] CHLORIDE 112 mmol/L (100-108) H [facility] CO2 24 mmol/L (22-31) [facility] ANION GAP 7 mmol/L (7-16) [facility] UREA NITROGEN 22 mg/dL (7-24) [facility] CREATININE 1.09 mg/dL (0.80-1.30) [facility] BUN/CREAT RATIO 20.2 RATIO (10.0-20.0) H [facility] GLUCOSE 201 mg/dL (70-99) H [facility] CALCIUM 9.9 mg/dL (8.4-10.2) [facility] GFR >60 ml/min/1.73m2 (>59) [facility] GFR ( AMER) >60 ml/min/1.73m2 (>59) [facility] GFR INTERPRETATION [facility] --NORMAL KIDNEY FUNCTION OR MILD DISEASE - GFR >OR= 60CHRONIC KIDNEY DISEASE - GFR 15 - 59RENAL FAILURE - GFR <15 Est. GFR calculation based on the MDRDstudy equation, which assumes a steadystate for creatinine. Est. GFR should notbe used for medication dosing. ID Date Data Source [id number] 11/14/2020 08:10:07 AM EDT [facility] Name Value Range Interpretation Code Description Data Ema rce(s) Supporting Document(s) WBC 7.7 10*3/uL (4.1-11.0) [facility] RBC 3.25 10*6/uL (4.60-6.10) L [facility] HGB 9.3 g/dL (13.5-18.0) L [facility] HCT 28.2 % (41.0-53.0) L [facility] MCV 86.7 fL (80.0-95.0) [facility] MCH 28.5 pg (27.0-32.0) [facility] MCHC 32.9 g/dL (32.0-36.0) [facility] RDW 16.6 % (10.5-14.5) H [facility] PLT 113 10*3/uL (150-450) L [facility] MPV 9.4 fL (7.1-10.7) [facility] ID Date Data Source [id number] 11/14/2020 06:02:40 AM EDT [facility] Name Value Range Interpretation Code Description Data Ema rce(s) Supporting Document(s) POC GLUCOSE 199 mg/dL (70-99) H [facility] PERFORMED BY CLINICAL STAFF ID Date Data Source [id number] 11/13/2020 09:40:55 PM EDT [facility] Name Value Range Interpretation Code Description Data Ema rce(s) Supporting Document(s) POC GLUCOSE 171 mg/dL (70-99) H [facility] PERFORMED BY CLINICAL STAFF ID Date Data Source [id number] 11/13/2020 08:27:01 PM EDT [facility] Name Value Range Interpretation Code Description Data Ema rce(s) Supporting Document(s) HEMOGLOBIN A1C @ 6.6 % (4.0-6.0) H [facility] Performed using [employer] y.Care must be taken when interpreting KeV1tcdnsfgt in patients with a hemoglobin variantor decreased erythrocyte lifespan. Values 5.7 - 6.4% suggest prediabetes.Values >=6.5% are diagnostic for diabetes.REFERENCE: DIABETES CARE 2018: 41(S13-S27).PERFORMED AT [address] [facility] [place] [address] [place] GLUCOSE 143 mg/dL [facility] [place] ID Date Data Source [id number] 11/13/2020 07:05:42 PM EDT [facility] [place] Name Value Range Interpretation Code Description Data Ema rce(s) Supporting Document(s) POC GLUCOSE 193 mg/dL (70-99) H [facility] PERFORMED BY CLINICAL STAFF ID Date Data Source [id number] 2020 11:32:00 AM EDT [facility] CENTERD[place], [place] [address]GPHSMUX NAME: SARINA LINARESDATE OF : 1940EPORT: OPERATIONPATIENT NUMBER: [id number] STATUS: IPMEDICAL RECORD NUMBER: [id number] OF ADMISSION: 11/13/2020ATE OF DISCHARGE:ROOM: 04DATE OF PROCEDURE: 11/13/2020ATIENT OF: LEVI BhaktaREOPERATIVE DIAGNOSES: Bladder neck contracture, prostate cancer withneurogenic bladder, urinary incontinence, and urothelial cell carcinoma ofthe bladder.POSTOPERATIVE DIAGNOSES: Bladder neck contracture, prostate cancer withneurogenic bladder, urinary incontinence, and urothelial cell carcinoma ofthe bladder.SURGEON: Krista Kitchen MDANESTHESIA: General anesthesia.ESTIMATED BLOOD LOSS: Approximately 300 cc.IV FLUIDS: Approximately 2000 cc of crystalloid.COMPLICATIONS: None.DRAINS: A 10-mm GEOFF drain and 7-Beninese single J stent bilaterally.SPECIMENS: Bladder, prostate, and lymph nodes as well as the appendix.PROCEDURES: Robotic radical cystoprostatectomy with formation ofileoconduit and robotic appendectomy.INDICATIONS FOR PROCEDURE: Mr. Linares is a 79-year-old gentleman who has ahistory of prostate cancer status post combination therapy with externalbeam radiation and brachytherapy who has developed bladder neck contracturewith urinary incontinence, neurogenic bladder with infection, and necroticbladder neck. In addition, the patient has a history of urothelial cellcarcinoma. He has been counseled on treatment option and opted forsurgical intervention with radical cystoprostatectomy with an ileoconduitas a urinary diversion.OPERATIVE REPORT: The patient was identified. Informed consent wasobtained. He was taken to the OR suite, placed in the supine position,underwent general anesthesia. After adequate anesthesia, he was thenrepositioned in dorsal lithotomy. His arms were then tucked to his side. He was adequately padded, secured to the bed, after which his abdomen andpelvis were shaved and then prepped and draped in a sterile surgicalmanner. Initially a 1 cm incision was made supraumbilically at the midlinethrough which a Veress needle was introduced and pneumoperitoneum was thenobtained at 15 mmHg of CO2. This to be noted that the Garcia was left inplace due to the fact the patient has a difficult catheterization, a Foleycatheter was then attached to the Garcia bag for drainage.Once we obtained pneumoperitoneum, I switched out the Veress needle for an8 mm robotic trocar, then under direct visualization additional trocarswere placed with three 8 mm robotic trocars and one 12 mm trocar.The patient was then repositioned in steep Trendelenburg. The robotsurgical cart system was undocked. The appropriate robotic instrumentswere then placed.Initial incision was made in the posterior peritoneum, but prior to doingthat there were large amount of adhesions of the sigmoid colon to thebladder, this was likely due to previous radiation, thus lysis of adhesionwas performed for approximately 30 minutes lysing and freeing up thesigmoid colon off of the bladder and surrounding tissue around the pelvis.Once this was performed, we were able to make an incision in the posteriorperitoneum on the left side entering through the retroperitoneal spaceallowing us to identify the ureter on the left, the ureter was thenmobilized as distal possibly and as cephalad as possible.At the distal portion of the ureter, I then clipped with 10 mm Xor-j-aiqDqfv clip and then transected and I continued going down to thevesicorectal recess where the posterior peritoneum to the side and therectum was then freed off the prostate as much as possible. There was alarge amount of reactive tissue due to previous radiation.We then mobilized the sigmoid off of the bladder on the right side andthere was some reactive tissue seen that was very close to the distalportion of the ureter on the right side. The ureter was carefullymobilized as cephalad as possible and distally as it *------* to thebladder and then clipped with 10 mm Hem-o-urban Weck clip and thentransected. Following the hypogastric vessels on the lateral aspect of thebladder, the perivesical fat as well as lymph nodes were carefullydissected off the hypogastric vessels allowing us to get down to theendopelvic fascia where there was a large amount of reactive tissue fromthe previous surgery as well as some necrotic tissue especially around theprostate urethra.Once this was all dissected out carefully all the way down to the posterioraspect of the dissection which was the obturator fossa where the obturatornerve was seen bilaterally left uninjured and preserved bilaterally.At this point, we can see the pedicle of the bladder and the prostate as wedissected down and starting at the obliterated umbilical artery, we used a60-mm vascular stapler on the right side to staple and transect the tissueand the pedicle of the bladder and then using a second 60 mm vascularstaple and the staple was closed to the pedicle of the prostate, however,because of the reactive tissue this had to be performed in a sharpdissection as well as using monopolar cautery and Hem-o-urban Weck clips. After this, we then focused our attention on the left side carefullydissecting off the emerald packages and the perivesical fat around the pelvison the left side and allowing us to have visualization of the pedicle ofthe vesicle with radical pedicles of the prostatic pedicle. This tissuewas then stapled and transected using 60 mm vascular stapler x2 and thenusing sharp dissection as well as monopolar cautery, we were able todissect all the way down to the pedicle and neurovascular bundles of theprostate clipping it as well as cauterizing it with monopolar cautery andbipolar cautery.After which, we made an incision lateral to medial umbilical ligament onthe right side extended to the left side entering the space of Retzius anddropping the bladder. There was a large amount of reactive tissue aroundthe pelvis and the bony pelvis and sharp dissection and also monopolarcautery was then used to free up the prostate from the pelvic wall and thepelvic bone. There can be seen radioactive seeds that were depositedaround the apex of the prostate and the urethra. Once we transectedthrough the dorsal venous complex, there was a large pocket of purulenceand necrotic tissue from previous bladder neck procedures as well as mostlikely radiation effect. Efforts were then made to carefully dissect t hisout and cut it out and remove it and careful dissection was then performedjust posterior to the urethra as to not injure the rectum. The prostaticurethra was carefully dissected off of the rectum. Once it was dissectedoff, we attempted to make sure there was no rectal injuries and no activebleeding.The urethral stump was closed using a 2-0 V-Loc suture as best as we can.Pedicles of the prostate were identified, had been cauterized andtransected and a non nerve-sparing procedure had been performed.We then focused our attention to the ureters. The both ureters were thenidentified and marked with a 2-0 and 3-0 Vicryl on the left and right siderespectively. The cecum and the appendix was seen. The mesoappendix andthe appendix was then stapled and transected using a 45-mm vascular staple.The appendix was attached to the bladder to make sure that it does not getlost and needs to be removed at the same time with the specimen.Measuring approximately 15 cm away from the cecum, at this portion theterminal ileum was then marked off with a 3-0 silk suture to be designatedas the distal portion on the ileoconduit and another 10 to 15 cm away wasmarked with a 3-0 silk roughly a shorter length to designate this to be theproximal portion of the ileoconduit.Robot instruments were then carefully removed, the robot surgical cartsystem was undocked. The midline incision was extended periumbilically. An Neftali retractor was then placed. Specimen was delivered through thisarea and final inspection of the pelvis showed no active bleeding.A 10-mm GEOFF drain was placed in the pelvis and brought through the mostlateral left trocar incision and secured to the skin using 2-0 nylonsuture.The portion of the ileum to be used for the ileoconduit was then deliveredthrough the incision and measurements were confirmed. The two ureters werealso mobilized and identified and made sure there was adequate length forspatulation and reanastomosis.The patient was then taken as steep Trendelenburg.The ileoconduit was well formed using two 60 mm vascular stapler to stapleoff the portion of the ileum to be used for the ileoconduit. The mesenteryof which was then stapled and transected using a 45 mm vascular staple.The two portions of the ileum were then reanastomosed on the antimesentericside using two 60 mm vascular staple. The staple lines were then closedand buried using 3-0 silk interrupted sutures. The mesentery defect wasthen closed using 3-0 silk interrupted sutures to prevent internalherniation.The distal portion of the ileoconduit was then opened and irrigated andproximal portion of the ileoconduit was then identified and then thespatulation of the left ureter was then performed and anastomosed to theanterior portion of the ileoconduit on the proximal side using two 4- 0Monocryl running sutures, prior to closing the anastomosis a 7-Frenchsingle J stent was advanced up into the left ureter and brought through theileoconduit, secured to the ileoconduit using 3-0 chromic interruptedsuture. Anastomosis was then completed and using a 4-0 Monocryl runningsutures one on each side and the anastomotic site was tested by puttingapproximately 50 to 60 cc in the bulb tip syringe to fill up theileoconduit which demonstrated no anosmatic leak.A second incision was made in the proximal portion of the ileoconduit andspatulation of the right ureter was then performed. Two 4-0 Monocrylrunning sutures were then used to perform the anastomosis of the ureter tothe ileoconduit. Prior to closing the anastomosis, a 7-Beninese single Jstent was advanced up from the right ureter, brought through theileoconduit, secured to the conduit using a 3-0 chromic interrupted suture.Anastomosis was completed and a second testing of the anastomotic site wasperformed using a bulb-tip syringe with normal saline which demonstrated noanastomotic leak.An Neftali retractor was removed. The marking for the stoma had beenidentified earlier by the stoma nurse prior to surgery, this was located inthe right mid quadrant just below the rib cages.Circumferential incision was then made around this marking about a quartersize and carried down to the subcutaneous tissue removing the fat down andexposing the fascia. Fascia was cruciated and each of the corners of thiscruciate was then marked with a 0 Vicryl suture. A muscle-sparingprocedure was then performed which we made an incision in the fascia aswell as the peritoneum allowing adequate space for the ileoconduit to bepulled through and delivered and anchored to the 4-0 Vicryl interruptedsutures.Maturation of the stoma was then performed using 3-0 Vicryl interruptedsutures.The midline incision fascia was then closed using number 1 Vicryl runningsuture. Once this was closed, subcutaneous tissue was then reapproximatedusing 3-0 Vicryl subcutaneous buried interrupted suture. Marcaine wasinstilled in each of the incision for local anesthesia and the subcutaneoustissue was then reapproximated using 3-0 Vicryl interrupted sutures. Skinwas then closed using Dermabond. Mastisol was placed around the applianceof the stoma and the appliance was then placed. The patient was thenawakened from anesthesia, tolerated the procedure well, sent to recoveryroom in good condition extubated.DICTATED BY: Krista Kitchen, MDDictated: 11/13/2020 17:08DT: 11/13/2020 17:16Job #: [id number]: [facility] computer generated reports are not confirmed orauthenticated unless they are signed by the providerElectronically Authenticated by:KRISTA KITCHEN MD On 2020 11:32 AM EDT Name Value Range Interpretation Code Description Data Ema rce(s) Supporting Document(s) ID Date Data Source [id number] 11/13/2020 04:57:08 PM EDT [facility] Name Value Range Interpretation Code Description Data Ema rce(s) Supporting Document(s) POC GLUCOSE 166 mg/dL (70-99) H [facility] NOTIFIED PROVIDERNOTIFIED NURSEPERFORMED BY CLINICAL STAFF ID Date Data Source [id number] 11/13/2020 12:03:13 PM EDT [facility] Name Value Range Interpretation Code Description Data Ema rce(s) Supporting Document(s) POC GLUCOSE 134 mg/dL (70-99) H [facility] PERFORMED BY CLINICAL STAFF ID Date Data Source [id number] 11/13/2020 08:24:00 AM EDT [facility] ([facility] Name Value Range Interpretation Code Description Data Ema rce(s) Supporting Document(s) Surgical pathology study Laboratory test result [facility] ([facility]) LAB[facility]ATORY [facility] [address] [place] [address] SURGICAL PATHOLOGY REPORT Patient Name:SARINA LINARES :1940 [...] Electronically Signed Out By Anisa Mcmillan D.O. [facility], PGwenC. [address] [place] [id number] Technical component performed at [facility], [facility], Histopathology, [address] [place] [address], [id number]. Reported at [facility], [address] [place] [address], [id number]. This report may include immunohistochemical or in-situ hybridization results. Testing was developed and the performance characteristics determined by [facility], [facility], as required by CLIA '88. The FDA has determined that approval for specific use is not necessary for clinical use. The quality of Hematoxylin and Eosin stains and as applicable, for all immunohistochemical and/or special stains, including positive and negative controls, were reviewed and considered appropriate. ICD codes: Z85.46 CPT4 codes: A: 51891R B: 61264R C: 37407R ID Date Data Source [id number] 11/22/2020 12:14:35 AM EDT Lab [facility] LABORATORY [address] [address]Ejd# SURGICAL PATHOLOGY REPORTPatient Name:SARINA LINARES:2Received:11/14/2020ccession #:[id number](s) Received: A: Bladder, prostate and appendixB: Left proximal ureterC: Right proximal ureterClinical Diagnosis and History: Bladder neck contracture. DIAGNOSIS:A) BLADDER, PROSTATE AND APPENDIX, CYSTOPROSTATECTOMY AND APPENDECTOMY BENIGN BLADDER WITH FOCAL ULCERATION, MODERATE CHRONIC CYSTITIS, AND GRANULATION TISSUE FORMATION; PROSTATE WITH ATROPHY AND RADIATION CHANGES; NEGATIVE FOR MALIGNANCY; APPENDIX WITH FIBROUS OBLITERATION OF THE APPENDICEAL TIP. B) LEFT PROXIMAL URETER BENIGN URETER.C) RIGHT PROXIMAL URETER BENIGN URETER. GROSS DESCRIPTION: Specimen A received in formalin labeled "bladder, prostate and appendix"is a bladder with attached portion of prostate gland measuring 10.0 cmfrom superior to inferior, 8.7 cm from right to left, and up to 5.7 cmfrom anterior to posterior. The anterior surface of the bladder is openedto one surface. The appendix is loosely attached by adhesions to the leftlateral aspect of the bladder. It measures 8.5 cm in length and varies indiameter from 0.7 cm proximally to 0.3 cm distally. Extending from thedome of the bladder is a flap of glistening yellow-west adipose tissuemeasuring 9.5 x 6.5 x 0.2 cm in greatest dimension. The anterior marginof the specimen reveals granular exposed muscle. At the base of thebladder only a small portion of prostatic tissue is present. It measures2.4 cm from superior to inferior and up to 3.0 cm from right to left. Within the prostatic tissue multiple cylindrical silver metal rods areidentified which measure up to 0.5 cm in length and up to 0.1 cm indiameter. The seminal vesicles are present prominent and are encased infibrous tissue. Vas deferens are also identified bilaterally. The cutsurface of the prostate is solid, rubbery and montero-west. The right aspectof the gland is marked with black ink and the left with blue ink. Definitive ureter is not identified on the left. The attached portion ofright ureter measures 4.0 cm in length and 0.3 cm in diameter. Theurethral margin obstructed. The wall of the bladder varies from 0.7 to2.0 cm in thickness. The bladder mucosa is markedly edematous, west- pink,lobulated and glistening. With the exception of the polypoid edematousmucosa, no focal lesions are identified. On the cut surface no invasivetumor of the bladder is identified. No lymph nodes are identified in thesurrounding perivesicular fat. Sections are submitted for microscopicexamination as follows: sections from the appendix AP; a shave sectionthrough the apical margin of the prostate tissue and urethra U; sections from the attached right ureter RU; sections from the attached portion ofthe possible left ureter CARLOS; the entire prostate gland sectioned fromapex to base designated 1-5 respectively and additionally designated R andL (seminal vesicles posterior); right and left trigone regions RT/LT;anterior wall of bladder A; posterior wall of bladder P; dome of bladder D; right lateral wall RL; left lateral wall LL. (21 blocks) Specimen B received in formalin labeled "left proximal ureter" is a 1.1 cmtubular segment of montero-west tissue with attached fat. A suture is presentat one end of the specimen. The specimen is clamped with a plastic clamp. The clamp is removed and the specimen is serially sectioned and entirelysubmitted for microscopic examination. (1 block) Specimen C received in formalin labeled "right proximal ureter" is a 0.8cm segment of tubular montero-west tissue. There is minimal attached fat. There is an attached suture and a white plastic clamp. The specimenmeasures up to 0.7 cm in diameter and is bisected and entirely submittedfor microscopic examination. (1 block) [id number]: 11/22/2020Electronically Signed Out By Anisa Mcmillan D.O. vlcPath[facility] of AuroraRose MarieGwen[address] [place] [id number] component performed at [facility]visor[facility], [facility], [address] [place] [address], [id number].Reported at [facility], [address] [place] [address], [id number].This report may include immunohistochemical or in-situ hybridizationresults. Testing was developed and the performance characteristicsdetermined by [facility], as required byCLIA '88. The FDA has determined that approval for specific use is notnecessary for clinical use. The quality of Hematoxylin and Eosin stainsand as applicable, for all immunohistochemical and/or special stains,including positive and negative controls, were reviewed and consideredappropriate.ICD codes: Z85.46CPT4 codes: A: 34552RX: 00835EN: 53106L Name Value Range Interpretation Code Description Data Ema rce(s) Supporting Document(s) ID Date Data Source [id number] 11/06/2020 02:53:00 PM EDT [facility] ([facility] Name Value Range Interpretation Code Description Data Ema rce(s) Supporting Document(s) Protein [Presence] in Urine by Test strip 30 mg/dL [facility] ([facility]) Glucose [Presence] in Urine Laboratory test result [facility] ([facility]) Ua Nitrite Laboratory test result [facility] ([facility]) Blood [Presence] in Urine by Visual Laboratory test result [facility] ([facility]) Ua Leuko Laboratory test result [facility] ([facility]) Ketones [Presence] in Urine by Test strip Laboratory test result [facility] ([facility]) Color of Urine Laboratory test result [facility] ([facility]) Ua Specific [place] 1.015 1.003-1.030 [facility] NT ([facility]) Clarity of Urine Laboratory test result [facility] ([facility]) pH of Urine by Test strip 7.0 5.0-7.5 [facility] ([facility]) Bilirubin.total [Presence] in Urine by Test strip Laboratory test res ult [facility] ([facility]) Urobilinogen [Mass/volume] in Urine by Test strip 0.2 E.U./dL 0.0-1.0 [facility] ([facility]) ID Date Data Source [id number] 11/06/2020 02:51:00 PM EDT [facility] ([facility]) Name Value Range Interpretation Code Description Data Ema rce(s) Supporting Document(s) Bacteria identified in Urine by Culture Laboratory test result [facility] ([facility]) SPECIMEN DESCRIPTION URINE, COLLE CTION METHOD NOT SPECIFIED CULTURE RESULTS MIXED UROGENITAL DEIRDRE; PLEASE SUBMIT A NEW SPEC IMEN IF CLINICALLY INDICATED. REPORT STATUS FINAL 11/08/2020 ID Date Data Source [id number] 11/08/2020 07:41:09 AM EDT [facility] - CORE SPECIMEN DESCRIPTION URINE, COLLE CTION METHOD NOT SPECIFIEDCULTURE RESULTS MIXED UROGENITAL DEIRDRE; PLEASE SUBMIT A NEW SPEC IMEN IF CLINICALLY INDICATED.REPORT STATUS FINAL 11/08/2020 Name Value Range Interpretation Code Description Data Ema rce(s) Supporting Document(s) ID Date Data Source [id number] 11/06/2020 02:00:50 PM EDT [facility] SPEC EXP DATE 1PATI ENT ABO/Rh A POSITIVEANTIBODY SCREEN NEGATIVETESTING SITE PERFORMED AT [address] [place] [address] BANK COMMENT BLOOD TYPE CONFIRMED. Name Value Range Interpretation Code Description Data Ema rce(s) Supporting Document(s) ID Date Data Source [id number] 11/06/2020 01:36:41 PM EDT [facility] Name Value Range Interpretation Code Description Data Ema rce(s) Supporting Document(s) SODIUM 140 mmol/L (136-145) [facility] POTASSIUM 3.9 mmol/L (3.6-5.2) [facility] CHLORIDE 110 mmol/L (100-108) H [facility] CO2 27 mmol/L (22-31) [facility] ANION GAP 3 mmol/L (7-16) L [facility] UREA NITROGEN 16 mg/dL (7-24) [facility] CREATININE 0.77 mg/dL (0.80-1.30) L [facility] BUN/CREAT RATIO 20.8 RATIO (10.0-20.0) H [facility] GLUCOSE 116 mg/dL (70-99) H [facility] CALCIUM 10.1 mg/dL (8.4-10.2) [facility] TOTAL PROTEIN 7.1 g/dL (6.4-8.2) [facility] ALBUMIN 3.1 g/dL (3.2-4.5) L [facility] GLOBULIN 4.0 g/dL (2.7-4.3) [facility] ALB/GLOB RATIO 0.8 RATIO [facility] ALKALINE PHOSPHATASE 94 U/L (45-117) [facility] BILIRUBIN,TOTAL 0.6 mg/dL (0.0-1.0) [facility] PLEASE NOTE:Total bilirubin results may be falselyelevated in patients taking Eltrombopag. AST (SGOT) 38 U/L (11-39) [facility] ALT (SGPT) 31 U/L (12-78) [facility] GFR >60 ml/min/1.73m2 (>59) [facility] GFR ( AMER) >60 ml/min/1.73m2 (>59) [facility] GFR INTERPRETATION [facility] --NORMAL KIDNEY FUNCTION OR MILD DISEASE - GFR >OR= 60CHRONIC KIDNEY DISEASE - GFR 15 - 59RENAL FAILURE - GFR <15 Est. GFR calculation based on the MDRDstudy equation, which assumes a steadystate for creatinine. Est. GFR should notbe used for medication dosing. ID Date Data Source [id number] 11/06/2020 01:25:50 PM EDT [facility] Name Value Range Interpretation Code Description Data Ema rce(s) Supporting Document(s) HEMOGLOBIN A1C @ 6.7 % (4.0-6.0) H [facility] Performed using Siemens [place] immunoassa y.Care must be taken when interpreting [id number] in patients with a hemoglobin variantor decreased erythrocyte lifespan. Values 5.7 - 6.4% suggest prediabetes.Values >=6.5% are diagnostic for diabetes.REFERENCE: DIABETES CARE 2018: 41(S13-S27).PERFORMED AT [address] [place] [address] EST AVERAGE GLUCOSE 146 mg/dL [facility] ID Date Data Source [id number] 11/06/2020 01:09:23 PM EDT [facility] Name Value Range Interpretation Code Description Data Ema rce(s) Supporting Document(s) WBC 3.2 10*3/uL (4.1-11.0) L [facility] [place] RBC 3.44 10*6/uL (4.60-6.10) L [facility] HGB 9.6 g/dL (13.5-18.0) L [facility] HCT 28.9 % (41.0-53.0) L [facility] PERFORMED AT [address] [place] [address] MCV 84.2 fL (80.0-95.0) [facility] MCH 27.9 pg (27.0-32.0) [facility] MCHC 33.2 g/dL (32.0-36.0) [facility] RDW 15.8 % (10.5-14.5) H [facility] PLT 117 10*3/uL (150-450) L [facility] MPV 8.8 fL (7.1-10.7) [facility] NEUT % 69.0 % (35.0-75.0) [facility] LYMPH % 10.3 % (16.0-52.0) L [facility] MONO % 11.9 % (0.0-8.0) H [facility] EOS % 6.5 % (0.0-5.0) H [facility] BASO % 2.3 % (0.0-4.0) [facility] NEUT # 2.2 10*3/uL (1.8-7.7) [facility] LYMPH # 0.3 10*3/uL (1.2-4.8) L [facility] MONO # 0.4 10*3/uL (0.0-0.8) [facility] Eosinophils [#/volume] in Blood by Automated count 0.2 10*3/uL (0.0-0 .5) [facility] BASO # 0.1 10*3/uL (0.0-0.2) [facility] ID Date Data Source [id number] 07/20/2020 03:20:00 PM EST [facility] ([facility]) Name Value Range Interpretation Code Description Data Ema rce(s) Supporting Document(s) Bacteria identified in Urine by Culture Laboratory test result [facility] ([facility]) SPECIMEN DESCRIPTION CATHETER,IND WELLING CULTURE RESULTS MIXED UROGENITAL DEIRDRE; PLEASE SUBMIT A NEW SPEC IMEN IF CLINICALLY INDICATED. REPORT STATUS FINAL 07/22/2020 ID Date Data Source [id number] 07/22/2020 09:37:50 AM EST [facility] - CORE SPECIMEN DESCRIPTION CATHETER,IND WELLINGCULTURE RESULTS MIXED UROGENITAL DEIRDRE; PLEASE SUBMIT A NEW SPEC IMEN IF CLINICALLY INDICATED.REPORT STATUS FINAL 07/22/2020 Name Value Range Interpretation Code Description Data Ema rce(s) Supporting Document(s) ID Date Data Source [id number] 07/20/2020 01:20:00 PM EST [facility] ([facility]) Name Value Range Interpretation Code Description Data Ema rce(s) Supporting Document(s) Glucose [Presence] in Urine Laboratory test result [facility] ([facility]) Protein [Presence] in Urine by Test strip 30 mg/dL [facility] ([facility]) Ua Nitrite Laboratory test result [facility] ([facility]) Ua Leuko Laboratory test result [facility] ([facility]) Color of Urine Laboratory test result [facility] ([facility]) Blood [Presence] in Urine by Visual Laboratory test result [facility] ([facility]) Ketones [Presence] in Urine by Test strip Laboratory test result [facility] ([facility]) Clarity of Urine Laboratory test result [facility] ([facility]) Ua Specific [place] 1.015 1.003-1.030 [facility] NT ([facility]) pH of Urine by Test strip 7.0 5.0-7.5 [facility] ([facility]) Bilirubin.total [Presence] in Urine by Test strip Laboratory test res ult [facility] ([facility]) Urobilinogen [Mass/volume] in Urine by Test strip 0.2 E.U./dL 0.0-1.0 [facility] ([facility]) ID Date Data Source [id number] 05/30/2020 02:17:00 PM EST [facility] ([facility]) Name Value Range Interpretation Code Description Data Ema rce(s) Supporting Document(s) Bacteria identified in Urine by Culture Laboratory test result [facility] ([facility]) <content>SPECIMEN DESCRIPTION CATHETER,INDWELLING</content>
<content>CULTURE RESULTS >100,000 CFU/ML PSEUDOMONAS ALCALIGENES</content>
<content> >100,000 CFU/ML STAPHYLOCOCCUS AUREUS</content>
<content>REPORT STATUS FINAL 06/03/2020</content>
<content>ORGANISM PSEUDOMONAS ALCALIGENES</content>
<content>METHOD BLAIR</content>
<content>AMIKACIN <=2 SUSCEPTIBLE</content>
<content>CEFEPIME 4 SUSCEPTIBLE</content>
<content>CEFTAZIDIME 16 INTERMEDIATE</content>
<content>CIPROFLOXACIN 1 SUSCEPTIBLE</content>
<content>GENTAMICIN <=1 SUSCEPTIBLE</content>
<content>PIPERACILLIN/TAZOBACTAM 32 INTERMEDIATE</content>
<content>TOBRAMYCIN <=1 SUSCEPTIBLE</content>
<content>ORGANISM STAPHYLOCOCCUS AUREUS</content>
<content>METHOD BLAIR</content>
<content>NITROFURANTOIN <=16 SUSCEPTIBLE</content>
<content>LEVOFLOXACIN <=0.12 SUSCEPTIBLE</content>
<content>LINEZOLID 2 SUSCEPTIBLE</content>
<content>OXACILLIN <=0.25 SUSCEPTIBLE</content>
<content> OXACILLIN PREDICTS RESULTS FOR</content>
<content> PENICILLINASE RESISTANT PENICILLINS,</content>
<content> BETA LACTAM/BETALACTAMASE INHIBITOR</content>
<content> COMBINATIONS,CEPHALOSPORINS (WITH THE</content>
<content> EXCEPTION OF CEPHALOSPORINS WITH</content>
<content> ANTI MRSA ACTIVITY), AND</content>
<content> CARBAPENEMS PER CLSI STANDARDS.</content>
<content>TETRACYCLINE <=1 SUSCEPTIB LE</content>
<content> ISOLATES SUSCEPTIBLE TO TETRACYCLINE ARE</content>
<content> ALSO SUSCEPTIBLE TO DOXYCYCLINE AND</content>
<content> MINOCYCLINE.</content>
<content>VANCOMYCIN 1 SUSCEPTIBLE</content>
<content>TRIMETH/SULFA <=.5/9.5 SUSCEPTIBLE</content>
<content>CIPROFLOXACIN <=0.5 SUSCEPTIBLE</content>
<content>DAPTOMYCIN 0.5 SUSCEPTIBLE</content>
<content>CEFTAROLINE 0.25 SUSCEPTIBLE</content> ID Date Data Source [id number] 06/03/2020 07:48:59 AM EST [facility] - CORE SPECIMEN DESCRIPTION CATHETER,IND WELLINGCULTURE RESULTS >100,000 CFU/ML PSEUDOMONAS ALCALIGENES >100,000 CFU/ML STAPHYLOCOCCUS AUREUSREPORT STATUS FINAL 06/03/2020ORGANISM PSEUDOMONAS ALCALIGENESMETHOD MICAMIKACIN <=2 SUSCEPTIBLECEFEPIME 4 SUSCEPTIBLECEFTAZIDIME 16 INTERMEDIATECIPROFLOXACIN 1 SUSCEPTIBLEGENTAMICIN <=1 SUSCEPTIBLEPIPERACILLIN/TAZOBACTAM 32 INTERMEDIATETOBRAMYCIN <=1 SUSCEPTIBLEORGANISM STAPHYLOCOCCUS AUREUSMETHOD MICNITROFURANTOIN <=16 SUSCEPTIBLELEVOFLOXACIN <=0.12 SUSCEPTIBLELINEZOLID 2 SUSCEPTIBLEOXACILLIN <=0.25 SUSCEPTIBLE OXACILLIN PREDICTS RESULTS FOR PENICILLINASE RESISTANT PENICILLINS, BETA LACTAM/BETALACTAMASE INHIBITOR COMBINATIONS,CEPHALOSPORINS (WITH THE EXCEPTION OF CEPHALOSPORINS WITH ANTI MRSA ACTIVITY), AND CARBAPENEMS PER CLSI STANDARDS.TETRACYCLINE <=1 SUSCEPTIBLE ISOLATES SUSCEPTIBLE TO TETRACYCLINE ARE ALSO SUSCEPTIBLE TO DOXYCYCLINE AND MINOCYCLINE.VANCOMYCIN 1 SUSCEPTIBLETRIMETH/SULFA <=.5/9.5 SUSCEPTIBLECIPROFLOXACIN <=0.5 SUSCEPTIBLEDAPTOMYCIN 0.5 SUSCEPTIBLECEFTAROLINE 0.25 SUSCEPTIBLE Name Value Range Interpretation Code Description Data Ema rce(s) Supporting Document(s) ID Date Data Source [id number] 05/30/2020 02:11:00 PM EST [facility] ([facility]) Name Value Range Interpretation Code Description Data Ema rce(s) Supporting Document(s) Glucose [Presence] in Urine Laboratory test result [facility] ([facility]) Ua Nitrite Laboratory test result [facility] ([facility]) Protein [Presence] in Urine by Test strip 100 mg/dL [facility] ([facility]) Blood [Presence] in Urine by Visual Laboratory test result [facility] ([facility]) Ua Leuko Laboratory test result [facility] ([facility]) Color of Urine Laboratory test result [facility] ([facility]) Clarity of Urine Laboratory test result [facility] ([facility]) Ketones [Presence] in Urine by Test strip Laboratory test result [facility] ([facility]) Bilirubin.total [Presence] in Urine by Test strip Laboratory test res ult [facility] ([facility]) Ua Specific [place] 1.020 1.003-1.030 [facility] ([facility]) pH of Urine by Test strip 6.0 5.0-7.5 [facility] ([facility]) Urobilinogen [Mass/volume] in Urine by Test strip 1.0 E.U./dL 0.0-1.0 [facility] ([facility]) ID Date Data Source [id number] 03/22/2020 11:21:00 AM EDT [facility] ([facility]) Name Value Range Interpretation Code Description Data Ema rce(s) Supporting Document(s) Glucose [Presence] in Urine Laboratory test result [facility] ([facility]) Protein [Presence] in Urine by Test strip Laboratory test result [facility] ([facility]) Ua Nitrite Laboratory test result [facility] ([facility] [place]) Ua Leuko Laboratory test result [facility] ([facility]) Blood [Presence] in Urine by Visual Laboratory test result [facility] ([facility]) Color of Urine Laboratory test result [facility] ([facility]) Clarity of Urine Laboratory test result [facility]) Ketones [Presence] in Urine by Test strip Laboratory test result [facility] ([facility]) Ua Specific [place] Laboratory test result 1.003-1.030 [facility] ([facility]) Bilirubin.total [Presence] in Urine by Test strip Laboratory test res ult [facility] ([facility]) pH of Urine by Test strip 5.5 5.0-7.5 [facility] ([facility]) Urobilinogen [Mass/volume] in Urine by Test strip 0.2 E.U./dL 0.0-1.0 [facility] ([facility]) ID Date Data Source [id number] 03/20/2020 03:15:00 PM EDT [facility] ([facility]) Name Value Range Interpretation Code Description Data Ema rce(s) Supporting Document(s) Bacteria identified in Urine by Culture Laboratory test result [facility] ([facility]) SPECIMEN DESCRIPTION URINE, COLLE CTION METHOD NOT SPECIFIED CULTURE RESULTS >100,000 CFU/ML AEROCOCCUS URINAE NOTE: THERE ARE NO CLSI APPROVED CRITERIA FOR TESTING THE SUSCEPTIBILITY OF THIS ORGANISM TO ANTIBIOTICS. CONSULTATION WITH AN INFECTIOUS DISEASE PHYSICIAN OR PHARMACIST MAY BE WARRANTED IF THIS ORGANISM IS CLINICALLY SIGNIFICANT. REPORT STATUS FINAL 03/22/2020 ID Date Data Source [id number] 03/22/2020 09:29:42 AM EDT [facility] - CORE SPECIMEN DESCRIPTION URINE, COLLE CTION METHOD NOT SPECIFIEDCULTURE RESULTS >100,000 CFU/ML AEROCOCCUS URINAENOTE: THERE ARE NO CLSI APPROVED CRITERIA FOR TESTING THESUSCEPTIBILITY OF THIS ORGANISM TO ANTIBIOTICS. CONSULTATION WITH ANINFECTIOUS DISEASE PHYSICIAN OR PHARMACIST MAY BE WARRANTED IF THISORGANISM IS CLINICALLY SIGNIFICANT. REPORT STATUS FINAL 03/22/2020 Name Value Range Interpretation Code Description Data Ema rce(s) Supporting Document(s) ID Date Data Source [id number] 03/20/2020 02:44:00 PM EDT [facility] ([facility]) Name Value Range Interpretation Code Description Data Ema rce(s) Supporting Document(s) Glucose [Presence] in Urine 100 mg/dL [facility] ([facility]) Ua Leuko Laboratory test result [facility] ([facility]) Protein [Presence] in Urine by Test strip Laboratory test result [facility] ([facility]) Ua Nitrite Laboratory test result [facility] ([facility]) Color of Urine Laboratory test result [facility] ([facility]) Blood [Presence] in Urine by Visual Laboratory test result [facility] ([facility]) Ketones [Presence] in Urine by Test strip Laboratory test result [facility] ([facility]) Clarity of Urine Laboratory test result [facility] ([facility]) Ua Specific [place] 1.015 1.003-1.030 [facility] ([facility]) pH of Urine by Test strip 7.0 5.0-7.5 [facility] ([facility]) Bilirubin.total [Presence] in Urine by Test strip Laboratory test res ult [facility] ([facility]) Urobilinogen [Mass/volume] in Urine by Test strip 1.0 E.U./dL 0.0-1.0 [facility] ([facility]) ID Date Data Source [id number] 03/16/2020 02:59:00 PM EDT [facility] ([facility]) Name Value Range Interpretation Code Description Data Ema rce(s) Supporting Document(s) Bacteria identified in Urine by Culture Laboratory test result [facility] ([facility]) <content>SPECIMEN DESCRIPTION URI NE, COLLECTION METHOD NOT SPECIFIED</content>
<content>CULTURE RESULTS <10,000 CFU/ML REPRESENTING URETHRAL DEIRDRE</content>
<content>REPORT STATUS FINAL 03/18/2020</content> ID Date Data Source [id number] 03/18/2020 07:58:46 AM EDT [facility] - CORE SPECIMEN DESCRIPTION URINE, COLLE CTION METHOD NOT SPECIFIEDCULTURE RESULTS <10,000 CFU/ML REPRESENTING URETHRAL [place] STATUS FINAL 03/18/2020 Name Value Range Interpretation Code Description Data Ema rce(s) Supporting Document(s) ID Date Data Source [id number] 03/16/2020 02:50:00 PM EDT [facility] ([facility]) Name Value Range Interpretation Code Description Data Ema rce(s) Supporting Document(s) Glucose [Presence] in Urine Laboratory test result [facility] ([facility]) Protein [Presence] in Urine by Test strip Laboratory test result [facility] ([facility]) Ua Nitrite Laboratory test result [facility] ([facility]) Ua Leuko Laboratory test result [facility] ([facility]) Ketones [Presence] in Urine by Test strip Laboratory test result [facility] ([facility]) Blood [Presence] in Urine by Visual Laboratory test result [facility] ([facility]) Color of Urine Laboratory test result [facility] ([facility]) Clarity of Urine Laboratory test result [facility] ([facility]) Ua Specific [place] 1.015 1.003-1.030 [facility] ([facility]) Bilirubin.total [Presence] in Urine by Test strip Laboratory test res ult [facility] ([facility]) pH of Urine by Test strip 7.0 5.0-7.5 [facility] ([facility]) Urobilinogen [Mass/volume] in Urine by Test strip 0.2 E.U./dL 0.0-1.0 [facility] ([facility]) ID Date Data Source [id number] 03/14/2020 10:54:17 [address] [facility]PAT[facility] NT INFORMATIONPatient MRN Name Date of Age Gend*PT [id number] Sarina Linares 1940 79 years M SDCPT Location Admission Date/Time Visit ID Attending ProviderASNE AMBULATO* 03/02/20 0825 --- --- EPI ID CSN Admitting Provider [id number] Mar Castaneda MD([id number]) [place] [address] OPERATIVE REPORT OPNAME: SARINA LINARES#: [id number] #: [id number] ADMISSION DATE: 03/02/2020DOB: 1940 SEX: M PT TYPE: H SURACCT #: [id number] CARE PHYSICIAN:REFERRING PHYSICIAN: MAR ALICEAATE OF OPERATION: 03/02/2020PREOPERATIVE DIAGNOSIS:Overactive bladder.POSTOPERATIVE DIAGNOSES:1. Overactive bladder.2. A 1 cm bladder calculus .PROCEDURE:Cystoscopy with extraction of bladder calculus and intravesical injectionof Botox 100 units.SURGEON:Mar Castaneda MD.ANESTHESIA:MAC.ESTIMATED BLOOD LOSS:Minimal.IV FLUIDS:200 mL of crystal loid.DRAINS:None.COMPLICATIONS:None.SPECIMENS:Bladder calculus for chemical analysis.BRIEF HISTORY:The patient is a 79-year-old white male with a history of multiple urologicissues with history of overactive bladder symptomatology, not improved onmedical therapies. We reviewed various options and planned now forcystoscopy and intravesical injection of Botox 100 units. I fully reviewedthe risks including but not limited to bleeding, infection, injury to thebladder or surrounding tissues, recurrence of disease, need for furthertherapy, risk of general anesthesia, PE, CVA, RI, systemic effect of them edication and paralysis of the bladder. All questions were answered.Informed consent was obtained.DESCRIPTION OF PROCEDURE:The patient was prepped and draped in normal sterile fashion with the areaof interest being the genitalia exposed in the dorsal lithotomy positionafter induction of adequate MAC anesthetic. The patient did receivepreoperative IV antibiotics as well as pneumatic compression stockingsprior to induction of anesthesia.A 19-Beninese rigid cystoscope was advanced through the urethra whichappeared normal. There was a tight bladder neck from prior radiationtherapy, although we were able to pass the scope without difficulty. Oncein the bladder, there was no evidence of any bladder tumors, diverticula orsignificant trabeculation. He had a patulous right ureteral orifice thatwas apparent and did have what appeared to be a 1 cm free- floating stone inthe dependent portion of the bladder. The scope was able to break up a fewcorners of the stone, and then, we were able to irrigate the rest of itout. Sampling of the stone was sent for chemical analysis. Laborieinjection needle was advanced into the cystoscope and adjusted to 3 mmdepth. A total of 100 units of Botox was sequentially injected above thetrigone without any difficulties with a total of 0.5 mL per injection sitewith 10 mL injected. Final inspection revealed no active bleeding orinjury to the bladder. Bladder was drained of a small amount of clearefflux. The patient was awoken from anesthetic having tolerated theprocedure well.PLAN:To be discharged home later today. He already has antibiotics at home.Recommendation for [id number] pain medications for any discomfort.He should remain well hydrated.RECOMMENDATIONS:No heavy lifting, straining, exercise. No driving on pain medication. Hewill follow up in the office in 2 weeks as scheduled. Findings werereviewed with the patient's over the phone postoperatively.TIMOTEO DAVIDSON/ARCADIO Job #: [id number] DOC #: [id number] Name Value Range Interpretation Code Description Data Ema rce(s) Supporting Document(s) ID Date Data Source [id number] 03/02/2020 11:53:00 AM EDT [facility] ([facility]) Name Value Range Interpretation Code Description Data Ema rce(s) Supporting Document(s) Composition in Stone Laboratory test result [facility] ([facility]) Calculi composed primarily of: 50% magnesium ammonium phosphate (struvi te), and 50% calcium phosphate (hydroxy- and carb telma- apatite). INTERPRETIVE INFORMATION: Calculi (Stone) analysis Calculi are the products of physiological processes that yield crystalline compounds in a matrix of biological compounds and blood. Matrix components are not reported. The clinically significant crystalline components identified in calculi specimens are reported. Gross description may not be consistent with composition determined by FTIR analysis. Performed By: [employer] [address] [place] [id number] Shopper: Flor Rosales MD Weight of Unspecified specimen 76 mg [facility] ([facility]) Number of Stones 2 [facility] ([facility]) Size [Entitic volume] of Stone Laboratory test result [facility] ([facility]) Unit: mm Appearance of Stone Laboratory test result [facility] ([facility]) Specimen consists of two, various sized (1 mm to 9 mm), montero, irregular calculi fragments. ID Date Data Source [id number] 03/07/2020 07:23:28 PM EDT [facility] Name Value Range Interpretation Code Description Data Ema rce(s) Supporting Document(s) COMPOSITION [facility] See Note Calculi composed primarily of: 50% magnesium ammonium phosphate (struvite), and 50% calcium phosphate (hydroxy- and carbonate- apatite). INTERPRETIVE INFORMATION: Calculi (Stone) analysis Calculi are the products of physiological processes that yield crystalline compounds in a matrix of biological compounds and blood. Matrix components are not reported. The clinically significant crystalline components identified in calculi specimens are reported. Gross description may not be consistent with composition determined by FTIR analysis. Performed By: [employer] [address] [place] [id number] Shopper: Flor Rosales MD MASS 76 mg [facility] CALCULI NUMBER 2 [facility] CALCULI SIZE [facility] VariousUnit: mm CALCULI DESCRIPTION [facility] See Note Specimen consists of two, vario us sized (1 mm to 9 mm), montero, irregular calculi fragments. ID Date Data Source [id number] 03/02/2020 10:50:03 AM EDT [facility] CenterPATIE NT INFORMATIONPatient MRN Name Date of Age Gend*PT [id number] Sarina Linares 1940 79 years M SDCPT Location Admission Date/Time Visit ID Attending ProviderASNE AMBULATO* 03/02/20 0825 --- Mar Castaneda MD([id number]) EPI ID CSN Admitting Provider [id number] Mar Castaneda MD([id number])H&P reviewed. The patient was examined and there are no changes to the H&P.The H&P that is being updated is available for review and was brought in Nba Castaneda MD10:50 AM Name Value Range Interpretation Code Description Data Ema rce(s) Supporting Document(s) ID Date Data Source [id number] 02/26/2020 09:30:00 AM EDT [facility] Name Value Range Interpretation Code Description Data Ema rce(s) Supporting Document(s) SARS coronavirus 2 RNA [facility] This lab was ordered by [facility] and reported by [facility]. ID Date Data Source [id number] 02/27/2020 12:07:19 PM EDT [facility] Name Value Range Interpretation Code Description Data Ema rce(s) Supporting Document(s) SARS-COV-2 JUSTEN [facility] Paulette Not DetectedReference range: Not Detecte d This nucleic acid amplification test was developed and its performance characteristics determined by [employer]. Nucleic acid amplification tests include PCR and TMA. This test has not been FDA cleared or approved. This test has been authorized by FDA under an Emergency Use Authorization (EUA). This test is only authorized for the duration of time the declaration that circumstances exist justifying the authorization of the emergency use of in vitro diagnostic tests for detection of SARS-CoV-2 virus and/or diagnosis of COVID-19 infection under section 564(b)(1) of the Act, 21 U.S.C. 360bbb-3(b) (1), unless the authorization is terminated or revoked sooner. When diagnostic testing is negative, the possibility of a false negative result should be considered in the context of a patient's recent exposures and the presence of clinical signs and symptoms consistent with COVID- 19. An individual without symptoms of COVID- 19 and who is not shedding SARS -CoV-2 virus would expect to have a negative (not detected) result in this assay. Performed At: [address] [id number] Osvaldo Dobson MD Ph:[phone] ID Date Data Source [id number] 02/24/2020 03:03:00 PM EDT [facility] ([facility] Name Value Range Interpretation Code Description Data Ema rce(s) Supporting Document(s) Bacteria identified in Urine by Culture Laboratory test result [facility] ([facility]) <content>SPECIMEN DESCRIPTION URI NE, COLLECTION METHOD NOT SPECIFIED</content>
<content>CULTURE RESULTS >10,000 TO <100,000 CFU/ML AEROCOCCUS URINAE</content>
<content>NOTE: THERE ARE NO CLSI APPROVED CRITERIA FOR TESTING THE</content>
<content>SUSCEPTIBILITY OF THIS ORGANISM TO ANTIBIOTICS. CONSULTATION WITH AN</content>
<content>INFECTIOUS DISEASE PHYSICIAN OR PHARMACIST MAY BE WARRANTED IF THIS</content>
<content>ORGANISM IS CLINICALLY SIGNIFICANT.</content>
<content> </content>
<content>REPORT STATUS FINAL 02/26/2020</content> ID Date Data Source [id number] 02/26/2020 12:44:43 PM EDT [facility] [place] [facility] - CORE SPECIMEN DESCRIPTION URINE, COLLE CTION METHOD NOT SPECIFIEDCULTURE RESULTS >10,000 TO <100,000 CFU/ML AEROCOCCUS URINAENOTE: THERE ARE NO CLSI APPROVED CRITERIA FOR TESTING THESUSCEPTIBILITY OF THIS ORGANISM TO ANTIBIOTICS. CONSULTATION WITH ANINFECTIOUS DISEASE PHYSICIAN OR PHARMACIST MAY BE WARRANTED IF THISORGANISM IS CLINICALLY SIGNIFICANT. REPORT STATUS FINAL 02/26/2020 Name Value Range Interpretation Code Description Data Eam rce(s) Supporting Document(s) ID Date Data Source [id number] 02/24/2020 02:48:00 PM EDT [facility] ([facility]) Name Value Range Interpretation Code Description Data Ema rce(s) Supporting Document(s) Protein [Presence] in Urine by Test strip Laboratory test result [facility] ([facility] [place]) Glucose [Presence] in Urine 100 mg/dL [facility] ([facility]) Ua Nitrite Laboratory test result ME DENT ([facility]) Ua Leuko Laboratory test result ME DENT ([facility]) Color of Urine Laboratory test result [facility] ([facility]) Blood [Presence] in Urine by Visual Laboratory test result [facility] ([facility]) Ua Specific [place] 1.020 1.003-1.030 MEDE NT ([facility]) Ketones [Presence] in Urine by Test strip Laboratory test result [facility] ([facility]) Clarity of Urine Laboratory test result [facility] ([facility]) Bilirubin.total [Presence] in Urine by Test strip Laboratory test res ult [facility]ENT ([facility]) pH of Urine by Test strip 6.0 5.0-7.5 [facility] ([facility]) Urobilinogen [Mass/volume] in Urine by Test strip 0.2 E.U./dL 0.0-1.0 [facility] ([facility]) ID Date Data Source [id number] 02/21/2020 10:48:00 AM EDT [facility] ([facility]) Name Value Range Interpretation Code Description Data Ema rce(s) Supporting Document(s) Bacteria identified in Urine by Culture Laboratory test result DAMI ([facility]) Procedure Social History Code Duration Value Status Description Data Source(s ) Smoking 04/02/2021 12:00:00 AM EDT Never Smoker completed Never S moker eCW1 ([facility]) Smoking 03/20/2021 12:00:00 AM EDT Never Smoked Cigarettes com pleted Never Smoked Cigarettes [facility] ([facility]) Smoking 03/05/2021 12:00:00 AM EDT Never Smoker completed Never S moker eCW1 ([facility]) Smoking 03/05/2021 12:00:00 AM EDT Never Smoker completed Never S moker eCW1 ([facility]) Smoking 03/05/2021 12:00:00 AM EDT Never Smoker completed Never S moker eCW1 ([facility]) Smoking 03/05/2021 12:00:00 AM EDT Never Smoker completed Never S moker eCW1 ([facility]) Smoking 03/05/2021 12:00:00 AM EDT Never Smoker completed Never S moker eCW1 ([facility]) Smoking 02/20/2021 12:00:00 AM EDT Never Smoker completed Never S moker eCW1 ([facility]) Smoking 01/31/2021 12:58:00 AM EDT Denies Ever Smoked complete d Denies Ever Smoked [facility] Smoking 01/01/2021 12:00:00 AM EDT Never Smoker completed Never S moker eCW1 ([facility]) Smoking 01/01/2021 12:00:00 AM EDT Never Smoker completed Never S moker eCW1 ([facility]) Smoking 01/01/2021 12:00:00 AM EDT Never Smoker completed Never S moker eCW1 ([facility]) Smoking 01/01/2021 12:00:00 AM EDT Never Smoker completed Never S moker eCW1 ([facility]) Smoking 01/01/2021 12:00:00 AM EDT Never Smoker completed Never S moker eCW1 ([facility]) Smoking 01/01/2021 12:00:00 AM EDT Never Smoker completed Never S moker eCW1 ([facility]) Smoking 01/01/2021 12:00:00 AM EDT Never Smoker completed Never S moker eCW1 ([facility]) Smoking 01/01/2021 12:00:00 AM EDT Never Smoker completed Never S moker eCW1 ([facility]) Smoking 11/28/2020 12:00:00 AM EDT Never Smoker completed Never S moker eCW1 ([facility]) Smoking 11/28/2020 12:00:00 AM EDT Never Smoker completed Never S moker eCW1 ([facility]) Smoking 11/28/2020 12:00:00 AM EDT Never Smoker completed Never S moker eCW1 ([facility]) Smoking 11/28/2020 12:00:00 AM EDT Never Smoker completed Never S moker eCW1 ([facility]) Smoking 11/21/2020 04:02:00 PM EDT Denies Ever Smoked complete d Denies Ever Smoked [facility] Smoking 11/11/2020 12:00:00 AM EDT Never Smoker completed Never S moker eCW1 ([facility]) Smoking 11/11/2020 12:00:00 AM EDT Never Smoker completed Never S moker eCW1 ([facility]) Smoking 11/07/2020 12:00:00 AM EDT Never Smoker completed Never S moker eCW1 ([facility]) Smoking 05/11/2020 12:00:00 AM EST Never Smoker completed Never S moker eCW1 ([facility]) Smoking 05/11/2020 12:00:00 AM EST Never Smoker completed Never S moker eCW1 ([facility]) Smoking 05/11/2020 12:00:00 AM EST Never Smoker completed Never S moker eCW1 ([facility]) Smoking 05/11/2020 12:00:00 AM EST Never Smoker completed Never S moker eCW1 ([facility]) Vital Signs ID Date Data Source UNK Name Value Range Interpretation Code Description Data Source(s) Diastolic blood pressure 56 mm[Hg] 56 mm[Hg] eCW1 ([facility]) Body weight 175.0 [lb_av] 175.0 [lb_av] eCW1 [facility] Body height 71 [in_i] 71 [in_i] eCW1 ([facility]) Body mass index (BMI) [Ratio] 24.40 kg/m2 24.40 kg/m2 eCW1 ([facility]) Heart rate 99 /min 99 /min eCW1 ([facility]) Respiratory rate 18 /min 18 /min eCW1 ([facility]) Body temperature 97.1 [degF] 97.1 [degF] eCW1 ( [facility]) Systolic blood pressure 102 mm[Hg] 102 mm[Hg] e CW1 ([facility]) Body weight 79.380 kg 79.380 kg [facility] ([facility]) Body mass index (BMI) [Ratio] 24.4 kg/m2 24.4 k g/m2 [facility] ([facility]) Systolic blood pressure 125 mm[Hg] 125 mm[Hg] M EDENT ([facility]) Diastolic blood pressure 60 mm[Hg] 60 mm[Hg] [facility] ([facility]) Heart rate 97 /min 97 /min [facility] ([facility] [place] Body height 71 [in_i] 71 [in_i] [facility] ([facility]) 5'11" Body weight 175.00 [lb_av] 175.00 [lb_av] MEDEN T ([facility]) Body mass index (BMI) [Ratio] 27.48 kg/m2 No rmal (applies to non-numeric results) 27.48 kg/m2 [facility] Body height 179.2224 cm Normal (applies to non-numeric res ults) 179.2224 cm [facility] Body weight Measured 89.358 kg Normal (applies to n on-numeric results) 89.358 kg [facility] Diastolic blood pressure 54 mm[Hg] Normal (applies to non-numeric results) 54 mm[Hg] [facility] Systolic blood pressure 117 mm[Hg] Normal (applies t o non-numeric results) 117 mm[Hg] [facility] Body temperature 36.5 ifeanyi Normal (applies to non-numeric results) 36.5 ifeanyi [facility] Deprecated Oxygen saturation in Capillary blood by Oximetry 96 % Normal (applies to non-numeric results) 96 % [facility] Heart rate 83 min Normal (applies to non-numeric resul ts) 83 min [facility] Respiratory rate 18 min Normal (applies to non-numeric results) 18 min [facility] Body weight 199.4 [lb_av] 199.4 [lb_av] eCW1 ([facility]) Body temperature 97.8 [degF] 97.8 [degF] eCW1 ( [facility]) Systolic blood pressure 124 mm[Hg] 124 mm[Hg] e CW1 ([facility]) Diastolic blood pressure 58 mm[Hg] 58 mm[Hg] eCW1 ([facility]) Body height 71 [in_i] 71 [in_i] eCW1 ([facility]) Body mass index (BMI) [Ratio] 27.81 kg/m2 27.81 kg/m2 eCW1 ([facility]) Heart rate 105 /min 105 /min eCW1 ([facility]) Respiratory rate 18 /min 18 /min eCW1 ([facility]) Oxygen saturation in Arterial blood by Pulse oximetry 95 % 95 % [facility] ([facility]) Respiratory rate 18 /min 18 /min [facility] ( [facility]) Body height 71 [in_i] 71 [in_i] [facility] ([facility] [place] 5'11" Body weight 198.00 [lb_av] 198.00 [lb_av] MEDEN T ([facility]) Body weight 89.813 kg 89.813 kg [facility] ([facility]) Body mass index (BMI) [Ratio] 27.6 kg/m2 27.6 k g/m2 [facility] ([facility]) Systolic blood pressure 142 mm[Hg] 142 mm[Hg] M EDENT ([facility]) Diastolic blood pressure 66 mm[Hg] 66 mm[Hg] [facility] ([facility]) Heart rate 105 /min 105 /min [facility] ([facility] [place] Body temperature 97.7 [degF] 97.7 [degF] [facility] ([facility]) Systolic blood pressure 136 mm[Hg] Normal (applies t o non-numeric results) 136 mm[Hg] [facility] Diastolic blood pressure 70 mm[Hg] Normal (applies to non-numeric results) 70 mm[Hg] [facility] Heart rate 90 min Normal (applies to non-numeric resul ts) 90 min [facility] Deprecated Oxygen saturation in Capillary blood by Oximetry 98 % Normal (applies to non-numeric results) 98 % [facility] Respiratory rate 16 min Normal (applies to non-numeric results) 16 min [facility] Systolic blood pressure 136 mm[Hg] 136 mm[Hg] M EDENT ([facility]) Diastolic blood pressure 70 mm[Hg] 70 mm[Hg] [facility] ([facility] [place]) Heart rate 90 /min 90 /min [facility] ([facility]) Respiratory rate 16 /min 16 /min [facility] ( [facility] [place]) Oxygen saturation in Arterial blood by Pulse oximetry 98 % 98 % [facility] ([facility]) Body mass index (BMI) [Ratio] 28.0 kg/m2 No rmal (applies to non-numeric results) 28.0 kg/m2 [facility] Body height 179.2224 cm Normal (applies to non-numeric res ults) 179.2224 cm [facility] Body temperature 36.4 ifeanyi Normal (applies to non-numeric results) 36.4 ifeanyi [facility] Body weight Measured 201 [lb_av] Normal (applies to n on-numeric results) 201 [lb_av] [facility] Body height 71 [in_i] 71 [in_i] [facility] ([facility] [place] 5'11" Body mass index (BMI) [Ratio] 29.3 kg/m2 29.3 k g/m2 [facility] ([facility]) Systolic blood pressure 128 mm[Hg] 128 mm[Hg] M EDENT ([facility]) Diastolic blood pressure 70 mm[Hg] 70 mm[Hg] [facility] ([facility]) Heart rate 109 /min 109 /min [facility] ([facility]) Body weight 95.256 kg 95.256 kg [facility] ([facility] [place] Body weight 210.00 [lb_av] 210.00 [lb_av] MEDEN T ([facility]) Body weight 223.2 [lb_av] 223.2 [lb_av] eCW1 ([facility] Body height 71 [in_i] 71 [in_i] eCW1 ([facility]) Body mass index (BMI) [Ratio] 31.13 kg/m2 31.13 kg/m2 eCW1 ([facility]) Heart rate 116 /min 116 /min eCW1 ([facility]) Respiratory rate 18 /min 18 /min eCW1 ([facility]) Body temperature 97.8 [degF] 97.8 [degF] eCW1 ( [facility]) Systolic blood pressure 104 mm[Hg] 104 mm[Hg] e CW1 ([facility]) Diastolic blood pressure 54 mm[Hg] 54 mm[Hg] eCW1 ([facility]) Body height 71 [in_i] 71 [in_i] [facility] ([facility] 5'11" Heart rate 110 /min 110 /min [facility] ([facility] [place] Body weight 216.00 [lb_av] 216.00 [lb_av] MEDEN T ([facility]) Body weight 97.978 kg 97.978 kg [facility] ([facility]) Body mass index (BMI) [Ratio] 30.1 kg/m2 30.1 k g/m2 [facility] ([facility]) Systolic blood pressure 133 mm[Hg] 133 mm[Hg] M EDENT ([facility]) Diastolic blood pressure 64 mm[Hg] 64 mm[Hg] [facility] ([facility]) Body weight 216.0 [lb_av] 216.0 [lb_av] eCW1 ([facility]) Body height 71 [in_i] 71 [in_i] eCW1 ([facility]) Body mass index (BMI) [Ratio] 30.12 kg/m2 30.12 kg/m2 eCW1 ([facility]) Heart rate 97 /min 97 /min eCW1 ([facility]) Respiratory rate 18 /min 18 /min eCW1 ([facility]) Body temperature 97.4 [degF] 97.4 [degF] eCW1 ( [facility]) Systolic blood pressure 104 mm[Hg] 104 mm[Hg] e CW1 ([facility]) Diastolic blood pressure 52 mm[Hg] 52 mm[Hg] eCW1 ([facility]) Respiratory rate 18 min Normal (applies to non-numeric results) 18 min [facility] Systolic blood pressure 160 mm[Hg] Normal (applies t o non-numeric results) 160 mm[Hg] [facility] Diastolic blood pressure 69 mm[Hg] Normal (applies to non-numeric results) 69 mm[Hg] [facility] Heart rate 83 min Normal (applies to non-numeric resul ts) 83 min [facility] Body temperature 36.5 ifeanyi Normal (applies to non-numeric results) 36.5 ifeanyi [facility] Systolic blood pressure 160 mm[Hg] 160 mm[Hg] M EDENT ([facility]) Diastolic blood pressure 69 mm[Hg] 69 mm[Hg] [facility] ([facility]) Heart rate 83 /min 83 /min [facility] ([facility] [place] Respiratory rate 18 /min 18 /min [facility] ( [facility]) Body temperature 36.5 [degF] 36.5 [degF] [facility] ([facility]) Deprecated Oxygen saturation in Capillary blood by Oximetry 99 % Normal (applies to non-numeric results) 99 % [facility] Oxygen saturation in Arterial blood by Pulse oximetry 99 % 99 % [facility] ([facility]) Body height 179.2224 cm Normal (applies to non-numeric res ults) 179.2224 cm [facility] Body weight Measured 89.9 kg Normal (applies to non-num gayatri results) 89.9 kg [facility] Body mass index (BMI) [Ratio] 27.64 kg/m2 No rmal (applies to non-numeric results) 27.64 kg/m2 [facility] Body weight 209.2 [lb_av] 209.2 [lb_av] eCW1 ([facility]) Body height 71 [in_i] 71 [in_i] eCW1 ([facility]) Body mass index (BMI) [Ratio] 29.17 kg/m2 29.17 kg/m2 eCW1 ([facility]) Heart rate 94 /min 94 /min eCW1 ([facility]) Respiratory rate 18 /min 18 /min eCW1 ([facility]) Body temperature 97.7 [degF] 97.7 [degF] eCW1 ( [facility]) Systolic blood pressure 124 mm[Hg] 124 mm[Hg] e CW1 ([facility]) Diastolic blood pressure 64 mm[Hg] 64 mm[Hg] eCW1 ([facility]) Body weight 92.081 kg 92.081 kg [facility] ([facility] [place] Body mass index (BMI) [Ratio] 28.3 kg/m2 28.3 k g/m2 [facility] ([facility]) Systolic blood pressure 149 mm[Hg] 149 mm[Hg] M EDENT ([facility]) Diastolic blood pressure 75 mm[Hg] 75 mm[Hg] [facility] ([facility]) Heart rate 86 /min 86 /min [facility] ([facility] [place] Body height 71 [in_i] 71 [in_i] [facility] ([facility] [place] 5'11" Body weight 203.00 [lb_av] 203.00 [lb_av] MEDEN T ([facility]) Body weight 240.00 [lb_av] 240.00 [lb_av] MEDEN T ([facility]) Body height 71 [in_i] 71 [in_i] [facility] ([facility] [place] 5'11" Body weight 108.864 kg 108.864 kg [facility] ([facility] [place] Body mass index (BMI) [Ratio] 33.5 kg/m2 33.5 k g/m2 [facility] ([facility]) Body temperature 97.6 [degF] 97.6 [degF] [facility] ([facility] [place]) Body weight 211 [lb_av] 211 [lb_av] eCW1 ([facility]) Body height 71 [in_i] 71 [in_i] eCW1 ([facility]) Body mass index (BMI) [Ratio] 29.43 kg/m2 29.43 kg/m2 eCW1 ([facility]) Systolic blood pressure 146 mm[Hg] 146 mm[Hg] e CW1 ([facility]) Diastolic blood pressure 82 mm[Hg] 82 mm[Hg] eCW1 ([facility]) Body height 71 [in_i] 71 [in_i] eCW1 ([facility]) Body mass index (BMI) [Ratio] 29.43 kg/m2 29.43 kg/m2 eCW1 ([facility]) Heart rate 92 /min 92 /min eCW1 ([facility]) Respiratory rate 18 /min 18 /min eCW1 ([facility]) Body temperature 97.3 [degF] 97.3 [degF] eCW1 ( [facility]) Systolic blood pressure 142 mm[Hg] 142 mm[Hg] e CW1 ([facility]) Diastolic blood pressure 78 mm[Hg] 78 mm[Hg] eCW1 ([facility]) Body weight 211 [lb_av] 211 [lb_av] eCW1 ([facility]) Body weight 240.00 [lb_av] 240.00 [lb_av] JULIETA T ([facility]) Body height 71 [in_i] 71 [in_i] [facility] ([facility] [place] 5'11" Body weight 108.864 kg 108.864 kg [facility] ([facility] [place] Body mass index (BMI) [Ratio] 33.5 kg/m2 33.5 k g/m2 [facility] ([facility]) Systolic blood pressure 155 mm[Hg] 155 mm[Hg] M EDENT ([facility]) Diastolic blood pressure 67 mm[Hg] 67 mm[Hg] [facility] ([facility]) Heart rate 101 /min 101 /min [facility] ([facility] [place] Heart rate 90 /min 90 /min [facility] ([facility] [place] Body height 71 [in_i] 71 [in_i] [facility] ([facility] [place] 5'11" Body weight 240.00 [lb_av] 240.00 [lb_av] MEDEN T ([facility]) Body weight 108.864 kg 108.864 kg [facility] ([facility]) Body mass index (BMI) [Ratio] 33.5 kg/m2 33.5 k g/m2 [facility] ([facility] [place]) Systolic blood pressure 159 mm[Hg] 159 mm[Hg] M EDENT ([facility]) Diastolic blood pressure 70 mm[Hg] 70 mm[Hg] [facility] ([facility] [place]) Body temperature 97.9 [degF] 97.9 [degF] [facility] ([facility] [place]) Body weight 108.864 kg 108.864 kg [facility] ([facility]) Body mass index (BMI) [Ratio] 33.5 kg/m2 33.5 k g/m2 [facility] ([facility]) Heart rate 100 /min 100 /min [facility] ([facility] [place] Systolic blood pressure 146 mm[Hg] 146 mm[Hg] M EDENT ([facility]) Diastolic blood pressure 72 mm[Hg] 72 mm[Hg] [facility] ([facility]) Body height 71 [in_i] 71 [in_i] [facility] ([facility]) 5'11" Body weight 240.00 [lb_av] 240.00 [lb_av] MEDEN T ([facility]) ID Date Data Source [id number] 04/09/2021 08:44:03 AM [facility] Name Value Range Interpretation Code Description Data Source(s) WEIGHT RECORDED 175 lb 175 lb [facility] Patient Treatment Plan of Care Planned Activity Planned Date Details Description Data Source (s) Abdominal Binder/Elastic 3XL - 03/05/2021 12:00:00 AM EDT eCW1 ([facility]) Abdominal Binder/Elastic 3XL - 03/05/2021 12:00:00 AM EDT eCW1 ([facility]) Abdominal Binder/Elastic 3XL - 03/05/2021 12:00:00 AM EDT eCW1 ([facility]) Abdominal Binder/Elastic 3XL - 03/05/2021 12:00:00 AM EDT eCW1 ([facility]) Abdominal Binder/Elastic 3XL - 03/05/2021 12:00:00 AM EDT eCW1 ([facility]) HydrOXYzine HCl 10 MG 01/08/2021 01:00:00 AM EDT NETSMART ([facility]) Hydroxyzine Hydrochloride 10 MG Oral Tablet 01/08/2021 12:00:00 AM EDT eCW1 ([facility]) Hydroxyzine Hydrochloride 10 MG Oral Tablet 01/08/2021 12:00:00 AM EDT eCW1 ([facility]) Hydroxyzine Hydrochloride 10 MG Oral Tablet 01/08/2021 12:00:00 AM EDT eCW1 ([facility]) Hydroxyzine Hydrochloride 10 MG Oral Tablet 01/08/2021 12:00:00 AM EDT eCW1 ([facility]) Hydroxyzine Hydrochloride 10 MG Oral Tablet 01/08/2021 12:00:00 AM EDT eCW1 ([facility]) Hydroxyzine Hydrochloride 10 MG Oral Tablet 01/08/2021 12:00:00 AM EDT eCW1 ([facility]) Hydroxyzine Hydrochloride 10 MG Oral Tablet 01/08/2021 12:00:00 AM EDT eCW1 ([facility]) Hydroxyzine Hydrochloride 10 MG Oral Tablet 01/08/2021 12:00:00 AM EDT eCW1 ([facility]) Hydroxyzine Hydrochloride 10 MG Oral Tablet 01/08/2021 12:00:00 AM EDT eCW1 ([facility]) Hydroxyzine Hydrochloride 10 MG Oral Tablet 01/08/2021 12:00:00 AM EDT eCW1 ([facility]) Hydroxyzine Hydrochloride 10 MG Oral Tablet 01/08/2021 12:00:00 AM EDT eCW1 ([facility]) Hydroxyzine Hydrochloride 10 MG Oral Tablet 01/08/2021 12:00:00 AM EDT eCW1 ([facility]) Hydroxyzine Hydrochloride 10 MG Oral Tablet 01/08/2021 12:00:00 AM EDT eCW1 ([facility]) Hydroxyzine Hydrochloride 10 MG Oral Tablet 01/08/2021 12:00:00 AM EDT eCW1 ([facility]) Losartan Potassium 100 MG 01/07/2021 01:00:00 AM EDT NETSMART ([facility]) Spironolactone 25 MG 01/07/2021 01:00:00 [facility] Losartan Potassium 50 MG Oral Tablet 01/01/2021 12:00:00 AM EDT eCW1 ([facility]) Spironolactone 25 MG Oral Tablet 01/01/2021 12:00:00 AM EDT eCW1 ([facility]) Spironolactone 25 MG Oral Tablet 01/01/2021 12:00:00 AM EDT eCW1 ([facility]) Spironolactone 25 MG Oral Tablet 01/01/2021 12:00:00 AM EDT eCW1 ([facility]) Spironolactone 25 MG Oral Tablet 01/01/2021 12:00:00 AM EDT eCW1 ([facility]) Losartan Potassium 100 MG Oral Tablet 01/01/2021 12:00:00 AM EDT eCW1 ([facility]) Spironolactone 25 MG Oral Tablet 01/01/2021 12:00:00 AM EDT eCW1 ([facility]) Losartan Potassium 100 MG Oral Tablet 01/01/2021 12:00:00 AM EDT eCW1 ([facility]) Spironolactone 25 MG Oral Tablet 01/01/2021 12:00:00 AM EDT eCW1 ([facility]) Losartan Potassium 100 MG Oral Tablet 01/01/2021 12:00:00 AM EDT eCW1 ([facility]) Spironolactone 25 MG Oral Tablet 01/01/2021 12:00:00 AM EDT eCW1 ([facility]) Spironolactone 25 MG Oral Tablet 01/01/2021 12:00:00 AM EDT eCW1 ([facility]) Losartan Potassium 100 MG Oral Tablet 01/01/2021 12:00:00 AM EDT eCW1 ([facility]) Spironolactone 25 MG Oral Tablet 01/01/2021 12:00:00 AM EDT eCW1 ([facility]) Losartan Potassium 100 MG Oral Tablet 01/01/2021 12:00:00 AM EDT eCW1 ([facility]) Spironolactone 25 MG Oral Tablet 01/01/2021 12:00:00 AM EDT eCW1 ([facility]) Losartan Potassium 100 MG Oral Tablet 01/01/2021 12:00:00 AM EDT eCW1 ([facility]) Spironolactone 25 MG Oral Tablet 01/01/2021 12:00:00 AM EDT eCW1 ([facility]) Losartan Potassium 100 MG Oral Tablet 01/01/2021 12:00:00 AM EDT eCW1 ([facility]) Spironolactone 25 MG Oral Tablet 01/01/2021 12:00:00 AM EDT eCW1 [facility] [facility]) Losartan Potassium 100 MG Oral Tablet 01/01/2021 12:00:00 AM EDT eCW1 ([facility]) Spironolactone 25 MG Oral Tablet 01/01/2021 12:00:00 AM EDT eCW1 ([facility]) Spironolactone 25 MG Oral Tablet 01/01/2021 12:00:00 AM EDT eCW1 ([facility]) Losartan Potassium 100 MG Oral Tablet 01/01/2021 12:00:00 AM EDT eCW1 ([facility]) Potassium Chloride 12/31/2020 01:00:00 AM EDT NETSMART ([facility]) Colace 100 MG 12/31/2020 01:00:00 AM EDT NETSMART ([facility]) Lasix 20 MG 12/24/2020 01:00:00 AM EDT N ETSM[facility] ([facility]) Furosemide 40 MG Oral Tablet [Lasix] 12/24/2020 12:00:00 AM EDT eCW1 ([facility]) Furosemide 40 MG Oral Tablet [Lasix] 12/24/2020 12:00:00 AM EDT eCW1 ([facility]) Furosemide 40 MG Oral Tablet [Lasix] 12/24/2020 12:00:00 AM EDT eCW1 ([facility]) Furosemide 40 MG Oral Tablet [Lasix] 12/24/2020 12:00:00 AM EDT eCW1 ([facility]) Furosemide 40 MG Oral Tablet [Lasix] 12/24/2020 12:00:00 AM EDT eCW1 ([facility]) Furosemide 20 MG Oral Tablet [Lasix] 12/24/2020 12:00:00 AM EDT eCW1 ([facility]) Furosemide 20 MG Oral Tablet [Lasix] 12/24/2020 12:00:00 AM EDT eCW1 ([facility]) Furosemide 20 MG Oral Tablet [Lasix] 12/24/2020 12:00:00 AM EDT eCW1 ([facility]) Furosemide 20 MG Oral Tablet [Lasix] 12/24/2020 12:00:00 AM EDT eCW1 ([facility]) Furosemide 40 MG Oral Tablet [Lasix] 12/24/2020 12:00:00 AM EDT eCW1 ([facility]) Furosemide 20 MG Oral Tablet [Lasix] 12/24/2020 12:00:00 AM EDT eCW1 ([facility]) Furosemide 20 MG Oral Tablet [Lasix] 12/24/2020 12:00:00 AM EDT eCW1 ([facility]) Furosemide 20 MG Oral Tablet [Lasix] 12/24/2020 12:00:00 AM EDT eCW1 ([facility]) Furosemide 20 MG Oral Tablet [Lasix] 12/24/2020 12:00:00 AM EDT eCW1 ([facility]) Furosemide 20 MG Oral Tablet [Lasix] 12/24/2020 12:00:00 AM EDT eCW1 ([facility]) Furosemide 20 MG Oral Tablet [Lasix] 12/24/2020 12:00:00 AM EDT eCW1 ([facility]) Potassium Chloride CR 15 MEQ 12/24/2020 12:00:00 AM EDT eCW1 ([facility]) Furosemide 20 MG Oral Tablet [Lasix] 12/24/2020 12:00:00 AM EDT eCW1 ([facility]) Potassium Chloride CR 15 MEQ 12/24/2020 12:00:00 AM EDT eCW1 ([facility]) Ferrous Sulfate 325 (65 Fe) MG 11/30/2020 01:00:00 AM EDT NETSMART ([facility]) Melatonin 10 MG 11/30/2020 01:00:00 AM EDT NETSMART ([facility]) MetFORMIN HCl ER (MOD) 500 MG 11/30/2020 01:00:00 AM EDT NETSMART ([facility]) Lidocaine Pain Relieving 4 % 11/30/2020 01:00:00 AM EDT NETSMART ([facility]) Losartan Potassium-HCTZ 100-12.5 MG 11/24/2020 01:00:00 AM EDT NETSMART ([facility]) MetFORMIN HCl 500 MG 11/24/2020 01:00:00 AM EDT NETSMART ([facility]) Colace 100 MG 11/24/2020 01:00:00 AM EDT NETSMART ([facility]) Ferrous Sulfate 324 MG 11/24/2020 01:00:00 AM EDT NETSMART ([facility]) Ciprofloxacin HCl 750 MG 11/24/2020 01:00:00 AM EDT NETSMART ([facility]) Lancets 28 G 11/24/2020 01:00:00 AM EDT N [facility] ([facility]) FreeStyle [place] Lite w/Device 11/24/2020 01:00:00 AM EDT NETSMART ([facility]) Tylenol Extra Strength 500 MG 11/24/2020 01:00:00 AM EDT [place] ([facility]) Tylenol PM 11/24/2020 01:00:00 AM EDT [place] ([facility])
[2021-04-13 16:01] LABS: BASO # 0.1 10^3/uL (0.0-0.2); BASO % 1.5 % (0.0-1.0); EOS # 0.4 10^3/uL (0.0-0.5); EOS % 9.6 % (0.0-3.0); HEMOGLOBIN 7.2 g/dl (13.5-17.5); LYMPH # 0.2 10^3/uL (1.5-5.0); LYMPH % 6.1 % (24.0-44.0); MEAN CORPUSCULAR HEMOGLOBIN 27.8 pg (27.0-33.0); MEAN CORPUSCULAR HGB CONC 32.7 g/dl (32.0-36.5); MEAN CORPUSCULAR VOLUME 84.9 fl (80.0-96.0); MONO # 0.4 10^3/uL (0.0-0.8); MONO % 10.9 % (2.0-8.0); NEUTROPHILS # 2.8 10^3/uL (1.5-8.5); NEUTROPHILS % 71.6 % (36.0-66.0); PLATELET COUNT, AUTOMATED 154 10^3/uL (150-450); RED BLOOD COUNT 2.59 10^6/uL (4.30-6.10)
[2021-04-13 16:11] LABS: INR 1.07; PROTHROMBIN TIME 14.3 SECONDS (12.7-14.5)
[2021-04-13 16:12] LABS: PARTIAL THROMBOPLASTIN TIME 34.2 SECONDS (25.9-37.0)
--- OUTSIDE RECORDS SUMMARY | 2021-04-13 16:18 | CCD ---
Author Author [facility] Organization [facility] Address Unknown Phone Unavailable Care Team Providers Care Windows Security Analyst Name Role Phone Amee HDZ PA Unavailable [...] Unavailable ANDREINA, M DENVER PA Unavailable Unavailable ANRDEINA, M DENVER PA Unavailable Unavailable ANDREINA, M [...] Unavailable RENATA, P ABIOLA MD Unavailable Unavailable Morris, F Tarah PA Unavailable Unavailable Easton, F Tarah PA Unavailable Unavailable Easton, F Tarah PA Unavailable Unavailable Morris, F Tarah PA Unavailable Unavailable Easton, F Tarah PA Unavailable Unavailable Morris, F Tarah PA Unavailable Unavailable Easton, F Tarah PA Unavailable Unavailable Morris, F Tarah PA Unavailable Unavailable Morris, F Tarah PA Unavailable Unavailable Easton, F Tarah PA Unavailable Unavailable Easton, F Tarah PA Unavailable Unavailable Easton, F Tarah PA Unavailable Unavailable Easton, F Tarah PA Unavailable Unavailable Easton, F Tarah PA Unavailable Unavailable Easton, F Tarah PA Unavailable Unavailable Morris, F Tarah PA Unavailable Unavailable Morris, F Tarah PA Unavailable Unavailable Morris, F Tarah PA Unavailable Unavailable Morris, F Tarah PA Unavailable Unavailable Easton, F Tarah PA Unavailable Unavailable Easton, F Tarah PA Unavailable Unavailable Morris, F Tarah PA Unavailable Unavailable Morris, F Tarah PA Unavailable Unavailable Morris, F Tarah PA Unavailable Unavailable Morris, F Tarah PA Unavailable Unavailable Morris, F Tarah PA Unavailable Unavailable Morris, F Tarah PA Unavailable Unavailable Morris, F Tarah PA Unavailable Unavailable Morris, F Tarah PA Unavailable Unavailable Easton, F [...] Unavailable Amee PEREZ MD Unavailable Unavailable Amee EPREZ MD Unavailable Unavailable Amee PEREZ MD Unavailable [...] Unavailable Melyssa RANKIN MD Unavailable Unavailable Melyssa RANIKN MD Unavailable Unavailable Melyssa RANKIN MD Unavailable [...] Unavailable Анна Braun MD Unavailable Unavailable Анна Bruan MD Unavailable Unavailable Анна Braun MD Unavailable [...] Unavailable Unavailable RITTER LORENA MD Unavailable Unavailable IRTTER LORENA MD Unavailable Unavailable RITTER LORENA MD [...] is protected by Article 27-F of the [facility] Public Health law. If you continue you may have access to information: Regarding HIV / AIDS; Provided by facilities licensed or operated by the [facility] Office of Mental Health; or Provided by the [facility] Office for People With Developmental Disabilities. If such information is present, then the following [facility] mandated warning applies: This information has [...] law may result in a fine or chcf sentence or both. A general authorization for the release of medical or other information is NOT sufficient authorization for further disc losure. Allergies and Adverse Reactions Type Description Substance Reaction Status Data Source(s ) Propensity to adverse reactions NO KNOWN ALLERGIES NO KNOWN ALLERGIES [facility] Propensity to adverse reactions BICALUTAMIDE BICALUTAMIDE Palpitation s [facility] Casodex Casodex Casodex active NETSMART ([facility]) Family History Family Member Name Family Member Gender Family Member Status Date o f Status Description Data Source(s) Unknown Unknown Problem [facility]ENT ([facility]) Unknown Unknown Problem [facility] ([facility] Encounters Encounter Providers Location Date Indications Data Source(s ) Outpatient Attender: Cyn ERVIN 06/27/2021 12:00:0 0 AM [facility] Outpatient Attender: Jermaine Freeman DO 06/27/2021 12:00:00 AM [facility] Outpatient Attender: Jermaine Freeman DO 04/23/2021 12:00:00 AM [facility] Outpatient Attender: Eulalia Galvan i MDAdmitter: Eulalia Muñiz MDReferrer: Eulalia Muñiz MD [id number] 04/09/2021 12:00:00 AM EST - 04/09/2021 02:53:00 PM [facility] Liver cell carcinoma [facility] Liver cell carcinoma Patient admitted. Outpatient Referrer: Eulalia Muñiz MD 04/09/2021 12: 00:00 AM [facility] Outpatient Referrer: Eulalia Muñiz MD 04/09/2021 12: 00:00 AM [facility] Outpatient Attender: MARC EDAttender : PRIYA BURCHReferrer: Eulalia Muñiz MD [id number] 04/05/2021 12:00:00 AM EDT - 04/06/2021 12:00:00 AM EDT [facility] Outpatient [address] [address] 04/02/2021 12:00:00 AM EDT [facility] ([facility]) [place] ( in Healthcare facility) Attender: INNA YANEZ MDAdmitter: ABIOLA YANEZ MDConsultant: ISIDORO WARD 03/30/2021 01:33:00 AM EDT [facility] Emergency Attender: ABIOLA BLOUNT I MDAttender: GARETH MONTANA MDAttender: ER PHYSICIAN 03/29/2021 10:43:15 PM EDT [facility] Outpatient Attender: ABIOLA BLOUNT I MDAttender: GARETH MONTANA MDAttender: ER PHYSICIANAdmitter: ABIOLA YANEZ MD 09:05:00 PM EDT - 03/31/2021 02:19:00 PM EDT RECURRENT OSTOMY BLEED, HX OF BLADDER CA, LIVER CA [facility] RECURRENT OSTOMY BLEED, HX OF BLADDER CA , LIVER CA Patient discharged. Outpatient Attender: Jermaine Freeman DO [id number] 03/28/20 12:00:00 AM EDT - 03/28/2021 03:07:13 PM EDT [facility] Outpatient Referrer: Jermaine Freeman DO 03/22/2021 12:00: 00 AM EDT Liver cell carcinoma [facility] Liver cell carcinoma Outpatient Attender: Krista Meneses/ Asha.M.P. Urology 03/20 09:40:00 AM EDT [facility] ([facility] [place] [address] [address] 03/19/2021 12:00:00 AM EDT eCW1 ([facility]) Outpatient Attender: Eulalia Muñiz MD [id number] 03/15/2021 03:57:13 PM EDT [facility] Office Visit Attender: DENVER Meneses/ A.M.P. Urol ogy 03/12/2021 04:58:00 PM EDT MED[facility] ([facility]) Outpatient Attender: DENVER Meneses/ A.M.P. Urol ogy 03/11/2021 08:24:00 AM EDT [facility] ([facility]) Inpatient Attender: ELIZABETH WATERS MDAttender: ER PHYSICIAN 03/10/2021 02:21:00 PM EDT [facility] Inpatient Attender: ELIZABETH WATERS MDAttender: ER PHYSICIAN 03/10/2021 01:33:49 PM EDT [facility] [place] Inpatient Attender: ELIZABETH Andre tender: ER PHYSICIANAdmitter: ELIZABETH WATERS MD 03/10/2021 12:23:00 PM EDT - 03/12/2021 03:09:00 PM EDT BLEEDING STOMA [facility] BLEEDING STOMA Patient discharged. [place] [address] [address] 03/06/2021 12:00:00 AM EDT eCW1 ([facility]) [place] [address] [address] 03/05/2021 12:00:00 AM EDT eCW1 ([facility]) [place]patient [address] [address] 03/05/2021 12:00:00 AM EDT eCW1 ([facility]) Outpatient Attender: Eulalia Muñiz MD [id number] 03/04/2021 12:00:00 AM EDT - 03/04/2021 12:42:30 PM EDT [facility] Outpatient 03/04/2021 12:00:00 AM EDT [facility] new pt Outpatient Attender: Jermaine Freeman DO [id number] 02/29/20 12:00:00 AM EDT - 02/28/2021 12:20:04 PM EDT [facility] Unknown [address] [address] 02/20/2021 12:00:00 AM EDT eCW1 ([facility]) Outpatient Attender: IESHA CARLIN MD [facility] 02/18/2021 02:13:00 AM EDT [facility] ([facility]) Outpatient Attender: IESHA CARLIN MD [facility] 02/17/2021 01:59:00 AM EDT [facility] ([facility]) Outpatient Attender: ER PHYSICIAN 02/16/2021 01:10:00 AM E DT [facility] Inpatient Attender: NIRALI Stroud donis: GARETH MONTANA MDAttender: ER PHYSICIANAdmitter: GARETH MONTANA MD 02/16/2021 12:28:09 AM EDT [facility] Inpatient Attender: NIRALI Stroud donis: GARETH MONTANA MDAttender: ER PHYSICIANAdmitter: NIRALI RANKIN MD 02/15/2021 10:55:00 P M EDT - 02/18/2021 10:51:00 AM EDT ACUTE BLOOD LOSS ANEMIA [facility] ACUTE BLOOD LOSS ANEMIA Patient discharged. [place] [address] [address] 02/15/2021 12:00:00 AM EDT [facility] Outpatient Attender: MAR Meneses/ Leonardo Urol ogy 02/14/2021 10:00:00 AM EDT [facility] ([facility]) Outpatient Admitter: Анна Braun MDReferrer: Анна Braun MD 02/12/2021 12:00:00 AM EDT Liver cell carcinoma [facility] Liver cell carcinoma Unknown [address] [address] 02/05/2021 12:00:00 AM EDT eCW1 ([facility]) Inpatient Attender: ER PHYSICIAN 01/31/2021 12:56:00 AM E [facility] Inpatient Attender: ARNAUD PEREZ MDAttender: ER Sai HYSIRAFA 01/31/2021 12:29:40 AM EDT [facility] Inpatient Attender: ARNAUD HAAS MDAttender: ER PHYSICIANAdmitter: ARNAUD PEREZ MD 01/30/2021 10:55:00 PM EDT - 01/31/2021 11:15:00 AM EDT HEMATURIA [facility] HEMATURIA Patient discharged. Outpatient Attender: Kalia Meneses/ Leonardo Urolo gy 01/22/2021 11:00:00 AM EDT [facility] ([facility] [place] [address] [address] 01/22/2021 12:00:00 AM EDT eCW1 [facility]) [place] [address] [address] 01/22/2021 12:00:00 AM EDT eCW1 ([facility]) [place] [address] [address] 01/17/2021 12:00:00 AM EDT eCW1 ([facility]) [place] [address] [address] 01/16/2021 12:00:00 AM EDT [facility]CW[facility]) [place] [address] [address] 01/09/2021 12:00:00 AM EDT eCW1 ([facility]) [place] [address] [address] 01/08/2021 12:00:00 AM EDT eCW1 ([facility]) Outpatient [address] [address] 01/01/2021 12:00:00 AM EDT eCW1 ([facility]) [place] [address] [address] 12/25/2020 12:00:00 AM EDT eCW1 ([facility]) [place] [address] [address] 12/24/2020 12:00:00 AM EDT eCW1 ([facility]) Office Visit Attender: Tarah Meneses/ Leonardo sullivan 12/05/2020 10:30:00 AM EDT [facility] ([facility]) Unknown [address] [address] 11/29/2020 12:00:00 AM EDT eCW1 ([facility]) Outpatient [address] [address] 11/28/2020 12:00:00 AM EDT eCW1 ([facility]) 11/24/2020 01:00:00 AM EDT - 021 11:47:23 PM EDT NETSMART ([facility]) Inpatient Attender: LORENA RITTER MD 11/13/2020 12:03:14 PM EDT [facility] Inpatient Attender: Krista Kitchen MDAdmitter: Krista Kitchen MD 11/13/2020 10:43:00 AM EDT - 11/22/2020 02:37:00 PM EDT 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 ( in Healthcare facility) Attender: Krista Sesay MDAdmitter: Krista Kitchen MDConsultant: ISDIORO WARD 11/13/2020 10:43:00 AM EDT [facility] Inpatient Attender: Krista Kitchen MD 11/13/2020 10:43:00 AM EDT [facility] Unknown [address] [address] 11/09/2020 12:00:00 AM EDT eCW1 ([facility]) Unknown [address] [address] 11/08/2020 12:00:00 AM EDT eCW1 ([facility]) Outpatient [address] [address] 11/07/2020 12:00:00 AM EDT eCW1 ([facility]) Outpatient Attender: LORENA RITTER MD 11/06/2020 01:09:23 PM EDT [facility] Outpatient Attender: Krista Kitchen MD 11/06/2020 11:56:00 A M EDT ROBOTIC XI ASSISTED LAPAROSCOPIC CYSTOPROSTATECTOMY ILEOCOND [facility] ROBOTIC XI ASSISTED LAPAROSCOPIC CYSTOPR OSTATECTOMY ILEOCOND Unknown [address] [address] 09/11/2020 12:00:00 AM EDT eCW1 ([facility]) Outpatient Attender: Krista Meneses/ A.M.P. Urology 09/10 04:00:00 PM EDT [facility] ([facility] Outpatient Attender: MAR Meneses/ A.M.P. Urol ogy 08/03/2020 01:30:00 PM EST [facility] ([facility]) Outpatient Attender: Kalia Saxena RPA [place]/ A.M.P. Urolo gy 07/20/2020 01:15:00 PM EST [facility] ([facility] Outpatient Attender: Kalia Youngida/ A.M.P. Urolo gy 05/30/2020 01:00:00 PM EST [facility] ([facility] [place] [address] [address] 05/18/2020 12:00:00 AM EST eCW1 ([facility]) [place] [address] [address] 05/11/2020 12:00:00 AM EST eCW1 ([facility]) [place] [address] [address] 05/08/2020 12:00:00 AM EST eCW1 ([facility]) Outpatient Attender: Krista Meneses/ A.M.P. Urology 04/20 07:30:00 AM EST [facility] ([facility] [place] [address] [address] 03/27/2020 12:00:00 AM EDT eCW1 ([facility]) Outpatient Attender: MAR Meneses/ Asha.MGwenP. Urol ogy 03/22/2020 11:00:00 AM EDT [facility] ([facility] Outpatient Attender: Kalia Saxena RPA [place]/ A.M.P. Urolo gy 03/20/2020 03:00:00 PM EDT [facility] ([facility]) Outpatient Attender: Kalia Youngida/ A.M.P. Urolo gy 03/16/2020 02:45:00 PM EDT MED[facility] ([facility]) Outpatient Referrer: MAR CASTANEDA MD MOB-MOB.PAT 11:08:19 AM EDT - 02/26/2020 11:08:37 AM [facility]T [facility]: MAR CASTANEDA MD Admitter: MAR CASTANEDA MDReferrer: MAR CASTANEDA MD [facility] 01/19/2020 10:10:55 AM EDT - 03/02/2020 01:04:00 PM EDT [facility] Patient discharged. Immunizations Vaccine Date Status Description Data Source(s) Pfizer #3 dose COVID-19 SARSCOV2 VAC 30MCG/0.3ML IM 03/14/20 06:15:00 AM EDT completed eCW1 ([facility]) COVID-19 VACC, MRNA(PFIZER)/PF 03/14/2021 12:00:00 AM EDT completed [facility] COVID-19 VACCINE Pfizer 03/14/2021 12:00:00 AM EDT completed [facility] Vaccine Series Complete: YESThis Data wa s Submitted to [facility] Via [employer]Caliber. IIV3. This is one of two codes replacing CVX 15, which is being retired. 02/26/2021 06:37:00 AM EDT completed eCW1 ([facility]) IIV3. This is one of two codes replacing CVX 15, which is being retired. 02/26/2021 06:37:00 AM EDT completed eCW1 ([facility]) IIV3. This is one of two codes replacing CVX 15, which is being retired. 02/26/2021 06:37:00 AM EDT completed eCW1 ([facility]) IIV3. This is one of two codes replacing CVX 15, which is being retired. 02/26/2021 06:37:00 AM EDT completed eCW1 ([facility]) IIV3. This is one of two codes replacing CVX 15, which is being retired. 02/26/2021 06:37:00 AM EDT completed eCW1 ([facility]) IIV3. This is one of two codes replacing CVX 15, which is being retired. 02/26/2021 06:37:00 AM EDT completed eCW1 ([facility]) COVID-19 dose #2 given elsewhere Unspecified 07/29/2020 [...] mL dose 07/29/2020 12:00:00 AM EST completed [facility] COVID-19 VACCINE Pfizer 07/29/2020 12:00:00 AM EST completed [facility] Vaccine Series Complete: YESThis Data wa s Submitted to [facility] Via [employer]. Pfizer Covid-19 Sars-Cov-2, mRNA, [...] mL dose 07/08/2020 12:00:00 AM EST completed [facility] COVID-19 VACCINE Pfizer 07/08/2020 12:00:00 AM EST completed [facility] Vaccine Series Complete: NOThis Data was Submitted to [facility] Via [employer]. Pfizer Covid-19 Sars-Cov-2, mRNA, LNP-S, PF, 30 mcg/ 0 .3 mL 07/07/2020 11:00:00 PM EST completed [facility] ([facility]) IIV3. This is one of two codes replacing CVX 15, which is being retired. 03/08/2020 06:06:00 AM EDT completed eCW1 ([facility]) IIV3. This is one of two codes replacing CVX 15, which is being retired. 03/08/2020 06:06:00 AM EDT completed eCW1 ([facility]) IIV3. This is one of two codes replacing CVX 15, which is being retired. 03/08/2020 06:06:00 AM EDT completed eCW1 ([facility]) IIV3. This is one of two codes replacing CVX 15, which is being retired. 03/08/2020 06:06:00 AM EDT completed eCW1 ([facility]) IIV3. This is one of two codes replacing CVX 15, which is being retired. 03/08/2020 06:06:00 AM EDT completed eCW1 ([facility]) IIV3. This is one of two codes replacing CVX 15, which is being retired. 03/08/2020 06:06:00 AM EDT completed eCW1 ([facility]) IIV3. This is one of two codes replacing CVX 15, which is being retired. 03/08/2020 06:06:00 AM EDT completed eCW1 ([facility]) IIV3. This is one of two codes replacing CVX 15, which is being retired. 03/08/2020 06:06:00 AM EDT completed eCW1 ([facility]) IIV3. This is one of two codes replacing CVX 15, which is being retired. 03/08/2020 06:06:00 AM EDT completed eCW1 ([facility]) IIV3. This is one of two codes replacing CVX 15, which is being retired. 03/08/2020 06:06:00 AM EDT completed eCW1 ([facility]) IIV3. This is one of two codes replacing CVX 15, which is being retired. 03/08/2020 06:06:00 AM EDT completed eCW1 ([facility]) IIV3. This is one of two codes replacing CVX 15, which is being retired. 03/08/2020 06:06:00 AM EDT completed eCW1 ([facility]) IIV3. This is one of two codes replacing CVX 15, which is being retired. 03/08/2020 06:06:00 AM EDT completed eCW1 ([facility]) IIV3. This is one of two codes replacing CVX 15, which is being retired. 03/08/2020 06:06:00 AM EDT completed eCW1 ([facility]) IIV3. This is one of two codes replacing CVX 15, which is being retired. 03/08/2020 06:06:00 AM EDT completed eCW1 ([facility]) IIV3. This is one of two codes replacing CVX 15, which is being retired. 03/08/2020 06:06:00 AM EDT completed eCW1 ([facility]) IIV3. This is one of two codes replacing CVX 15, which is being retired. 03/08/2020 06:06:00 AM EDT completed eCW1 ([facility]) IIV3. This is one of two codes replacing CVX 15, which is being retired. 03/08/2020 06:06:00 AM EDT completed eCW1 ([facility]) IIV3. This is one of two codes replacing CVX 15, which is being retired. 03/08/2020 06:06:00 AM EDT completed eCW1 ([facility]) IIV3. This is one of two codes replacing CVX 15, which is being retired. 03/08/2020 06:06:00 AM EDT completed eCW1 ([facility]) IIV3. This is one of two codes replacing CVX 15, which is being retired. 03/08/2020 06:06:00 AM EDT completed eCW1 ([facility]) IIV3. This is one of two codes replacing CVX 15, which is being retired. 03/08/2020 06:06:00 AM EDT completed eCW1 ([facility]) INFLUENZA VIRUS VACCINE QUADRIVAL SPLIT 2019-(65 YR [...] active Abdomina l Binder/Elastic 3XL - eCW1 ([facility]) Abdominal Binder/Elastic 3XL - Abdominal Binder/Elastic 3XL - 03/05/2021 12:00:00 AM EDT active Abdomina l Binder/Elastic 3XL - eCW1 ([facility]) Abdominal Binder/Elastic 3XL - Abdominal Binder/Elastic 3XL - 03/05/2021 12:00:00 AM EDT active Abdomina l Binder/Elastic 3XL - eCW1 ([facility]) Abdominal Binder/Elastic 3XL - Abdominal Binder/Elastic 3XL - 03/05/2021 12:00:00 AM EDT active Abdomina l Binder/Elastic 3XL - eCW1 ([facility]) Abdominal Binder/Elastic 3XL - Abdominal Binder/Elastic 3XL - 03/05/2021 12:00:00 AM EDT active Abdomina l Binder/Elastic 3XL - eCW1 ([facility]) Abdominal Binder/Elastic 3XL - Abdominal Binder/Elastic 3XL - 03/05/2021 12:00:00 AM EDT active Abdomina l Binder/Elastic 3XL - eCW1 ([facility]) 4 mg 02/28/2021 12:00:00 AM EDT tablets,dose [...] HCl 01/08/2021 01:00:00 AM EDT completed NETSMART ([facility]) Hydroxyzine Hydrochloride 10 MG Oral Tablet hydrOXYzin e HCl 10 MG hydrOXYzine HCl 10 MG 01/08/2021 12:00:00 AM EDT 1.0 {tablet} ac tive hydrOXYzine HCl 10 MG eCW1 ([facility]) Hydroxyzine Hydrochloride 10 MG Oral Tablet hydrOXYzin e HCl 10 MG hydrOXYzine HCl 10 MG 01/08/2021 12:00:00 AM EDT 1.0 {tablet} ac tive hydrOXYzine HCl 10 MG eCW1 ([facility]) Hydroxyzine Hydrochloride 10 MG Oral Tablet hydrOXYzin e HCl 10 MG hydrOXYzine HCl 10 MG 01/08/2021 12:00:00 AM EDT 1.0 {tablet} ac tive hydrOXYzine HCl 10 MG eCW1 ([facility]) Hydroxyzine Hydrochloride 10 MG Oral Tablet hydrOXYzin e HCl 10 MG hydrOXYzine HCl 10 MG 01/08/2021 12:00:00 AM EDT 1.0 {tablet} ac tive hydrOXYzine HCl 10 MG eCW1 ([facility]) Hydroxyzine Hydrochloride 10 MG Oral Tablet hydrOXYzin e HCl 10 MG hydrOXYzine HCl 10 MG 01/08/2021 12:00:00 AM EDT 1.0 {tablet} ac tive hydrOXYzine HCl 10 MG eCW1 ([facility]) Hydroxyzine Hydrochloride 10 MG Oral Tablet hydrOXYzin e HCl 10 MG hydrOXYzine HCl 10 MG 01/08/2021 12:00:00 AM EDT 1.0 {tablet} ac tive hydrOXYzine HCl 10 MG eCW1 ([facility]) Hydroxyzine Hydrochloride 10 MG Oral Tablet hydrOXYzin e HCl 10 MG hydrOXYzine HCl 10 MG 01/08/2021 12:00:00 AM EDT 1.0 {tablet} ac tive hydrOXYzine HCl 10 MG eCW1 ([facility]) Hydroxyzine Hydrochloride 10 MG Oral Tablet hydrOXYzin e HCl 10 MG hydrOXYzine HCl 10 MG 01/08/2021 12:00:00 AM EDT 1.0 {tablet} ac tive hydrOXYzine HCl 10 MG eCW1 ([facility]) Hydroxyzine Hydrochloride 10 MG Oral Tablet hydrOXYzin e HCl 10 MG hydrOXYzine HCl 10 MG 01/08/2021 12:00:00 AM EDT 1.0 {tablet} ac tive hydrOXYzine HCl 10 MG eCW1 ([facility]) Hydroxyzine Hydrochloride 10 MG Oral Tablet hydrOXYzin e HCl 10 MG hydrOXYzine HCl 10 MG 01/08/2021 12:00:00 AM EDT 1.0 {tablet} ac tive hydrOXYzine HCl 10 MG eCW1 ([facility]) Hydroxyzine Hydrochloride 10 MG Oral Tablet hydrOXYzin e HCl 10 MG hydrOXYzine HCl 10 MG 01/08/2021 12:00:00 AM EDT 1.0 {tablet} ac tive hydrOXYzine HCl 10 MG eCW1 ([facility]) Hydroxyzine Hydrochloride 10 MG Oral Tablet hydrOXYzin e HCl 10 MG hydrOXYzine HCl 10 MG 01/08/2021 12:00:00 AM EDT 1.0 {tablet} ac tive hydrOXYzine HCl 10 MG eCW1 ([facility]) Hydroxyzine Hydrochloride 10 MG Oral Tablet hydrOXYzin e HCl 10 MG hydrOXYzine HCl 10 MG 01/08/2021 12:00:00 AM EDT 1.0 {tablet} ac tive hydrOXYzine HCl 10 MG eCW1 ([facility]) Hydroxyzine Hydrochloride 10 MG Oral Tablet hydrOXYzin e HCl 10 MG hydrOXYzine HCl 10 MG 01/08/2021 12:00:00 AM EDT 1.0 {tablet} ac tive hydrOXYzine HCl 10 MG eCW1 ([facility]) Hydroxyzine Hydrochloride 10 MG Oral Tablet hydrOXYzin e HCl 10 MG hydrOXYzine HCl 10 MG 01/08/2021 12:00:00 AM EDT 1.0 {tablet} ac tive hydrOXYzine HCl 10 MG eCW1 ([facility]) Losartan Potassium 100 MG Losartan Potassium 01/07/2021 01:00:00 AM EDT completed NETSMART ([facility]) Spironolactone 25 MG Spironolactone 01/07/2021 01:00:00 AM EDT completed NETSMART ([facility]) 20 mg 01/02/2021 12:00:00 AM EDT tablet [...] {tablet} active Spironolact one 25 MG eCW1 ([facility]) Spironolactone 25 MG Oral Tablet Spironolactone 25 MG 2020 12:00:00 AM EDT 1.0 {tablet} active Spironolact one 25 MG eCW1 ([facility]) Losartan Potassium 50 MG Oral Tablet Losartan Potassium 50 M G 01/01/2021 12:00:00 AM EDT active Losartan Potassium 50 MG eCW1 ([facility]) Spironolactone 25 MG Oral Tablet Spironolactone 25 MG 2020 12:00:00 AM EDT 1.0 {tablet} active Spironolact one 25 MG eCW1 ([facility]) Spironolactone 25 MG Oral Tablet Spironolactone 25 MG 2020 12:00:00 AM EDT 1.0 {tablet} active Spironolact one 25 MG eCW1 ([facility]) Losartan Potassium 100 MG Oral Tablet Losartan Potassium 100 MG 01/01/2021 12:00:00 AM EDT 1.0 {tablet} active Lo sartan Potassium 100 MG eCW1 ([facility]) Losartan Potassium 100 MG Oral Tablet Losartan Potassium 100 MG 01/01/2021 12:00:00 AM EDT 1.0 {tablet} active Lo sartan Potassium 100 MG eCW1 ([facility]) Spironolactone 25 MG Oral Tablet Spironolactone 25 MG 2020 12:00:00 AM EDT 1.0 {tablet} active Spironolact one 25 MG eCW1 ([facility]) Spironolactone 25 MG Oral Tablet Spironolactone 25 MG 2020 12:00:00 AM EDT 1.0 {tablet} active Spironolact one 25 MG eCW1 ([facility]) Spironolactone 25 MG Oral Tablet Spironolactone 25 MG 2020 12:00:00 AM EDT 1.0 {tablet} active Spironolact one 25 MG eCW1 ([facility]) Losartan Potassium 100 MG Oral Tablet Losartan Potassium 100 MG 01/01/2021 12:00:00 AM EDT 1.0 {tablet} active Lo sartan Potassium 100 MG eCW1 ([facility]) Losartan Potassium 100 MG Oral Tablet Losartan Potassium 100 MG 01/01/2021 12:00:00 AM EDT 1.0 {tablet} active Lo sartan Potassium 100 MG eCW1 ([facility]) Losartan Potassium 100 MG Oral Tablet Losartan Potassium 100 MG 01/01/2021 12:00:00 AM EDT 1.0 {tablet} active Lo sartan Potassium 100 MG eCW1 ([facility]) Losartan Potassium 100 MG Oral Tablet Losartan Potassium 100 MG 01/01/2021 12:00:00 AM EDT 1.0 {tablet} active Lo sartan Potassium 100 MG eCW1 ([facility]) Losartan Potassium 100 MG Oral Tablet Losartan Potassium 100 MG 01/01/2021 12:00:00 AM EDT 1.0 {tablet} active Lo sartan Potassium 100 MG eCW1 ([facility]) Losartan Potassium 100 MG Oral Tablet Losartan Potassium 100 MG 01/01/2021 12:00:00 AM EDT 1.0 {tablet} active Lo sartan Potassium 100 MG eCW1 ([facility]) Spironolactone 25 MG Oral Tablet Spironolactone 25 MG 2020 12:00:00 AM EDT 1.0 {tablet} active Spironolact one 25 MG eCW1 ([facility]) Losartan Potassium 100 MG Oral Tablet Losartan Potassium 100 MG 01/01/2021 12:00:00 AM EDT 1.0 {tablet} active Lo sartan Potassium 100 MG eCW1 ([facility]) Losartan Potassium 100 MG Oral Tablet Losartan Potassium 100 MG 01/01/2021 12:00:00 AM EDT 1.0 {tablet} active Lo sartan Potassium 100 MG eCW1 ([facility]) Spironolactone 25 MG Oral Tablet Spironolactone 25 MG 2020 12:00:00 AM EDT 1.0 {tablet} active Spironolact one 25 MG eCW1 ([facility]) Spironolactone 25 MG Oral Tablet Spironolactone 25 MG 2020 12:00:00 AM EDT 1.0 {tablet} active Spironolact one 25 MG eCW1 ([facility]) Losartan Potassium 100 MG Oral Tablet Losartan Potassium 100 MG 01/01/2021 12:00:00 AM EDT 1.0 {tablet} active Lo sartan Potassium 100 MG eCW1 ([facility]) Losartan Potassium 100 MG Oral Tablet Losartan Potassium 100 MG 01/01/2021 12:00:00 AM EDT 1.0 {tablet} active Lo sartan Potassium 100 MG eCW1 ([facility]) Losartan Potassium 100 MG Oral Tablet Losartan Potassium 100 MG 01/01/2021 12:00:00 AM EDT 1.0 {tablet} active Lo sartan Potassium 100 MG eCW1 ([facility]) Spironolactone 25 MG Oral Tablet Spironolactone 25 MG 2020 12:00:00 AM EDT 1.0 {tablet} active Spironolact one 25 MG eCW1 ([facility]) Losartan Potassium 100 MG Oral Tablet Losartan Potassium 100 MG 01/01/2021 12:00:00 AM EDT 1.0 {tablet} active Lo sartan Potassium 100 MG eCW1 ([facility]) Spironolactone 25 MG Oral Tablet Spironolactone 25 MG 2020 12:00:00 AM EDT 1.0 {tablet} active Spironolact one 25 MG eCW1 ([facility]) Spironolactone 25 MG Oral Tablet Spironolactone 25 MG 2020 12:00:00 AM EDT 1.0 {tablet} active Spironolact one 25 MG eCW1 ([facility]) Spironolactone 25 MG Oral Tablet Spironolactone 25 MG 2020 12:00:00 AM EDT 1.0 {tablet} active Spironolact one 25 MG eCW1 ([facility]) Spironolactone 25 MG Oral Tablet Spironolactone 25 MG 2020 12:00:00 AM EDT 1.0 {tablet} active Spironolact one 25 MG eCW1 ([facility]) Colace 100 MG Colace 12/31/2020 01:00:00 AM EDT co mpleted NETSMART ([facility]) Potassium Chloride Potassium Chloride 12/31/2020 01:00:00 AM EDT 15.0 {mEq} completed NETSMART ([facility]) 15 mEq 12/25/2020 12:00:00 AM EDT tablet,ER particles/cry stals 10 TAKE ONE TABLET BY MOUTH EVERY DAY DIRECTED TAKE ONE TABLET BY MOUTH EVERY DAY DIRECTED SOLD: 12/25/2020 [facility] Lasix 20 MG Lasix 12/24/2020 01:00:00 AM EDT compl eted NETSMART ([facility]) Furosemide 20 MG Oral Tablet [Lasix] Lasix 20 MG Lasix 20 MG 12/24/2020 12:00:00 AM EDT 1.0 {tablet} active Lasix 20 M G eCW1 ([facility]) Furosemide 40 MG Oral Tablet [Lasix] Lasix 40 MG Lasix 40 MG 12/24/2020 12:00:00 AM EDT 1.0 {tablet} active Lasix 40 M G eCW1 ([facility]) Furosemide 40 MG Oral Tablet [Lasix] Lasix 40 MG Lasix 40 MG 12/24/2020 12:00:00 AM EDT 1.0 {tablet} active Lasix 40 M G eCW1 ([facility]) Furosemide 20 MG Oral Tablet [Lasix] Lasix 20 MG Lasix 20 MG 12/24/2020 12:00:00 AM EDT 1.0 {tablet} active Lasix 20 M G eCW1 ([facility]) Furosemide 20 MG Oral Tablet [Lasix] Lasix 20 MG Lasix 20 MG 12/24/2020 12:00:00 AM EDT 1.0 {tablet} active Lasix 20 M G eCW1 ([facility]) Furosemide 20 MG Oral Tablet [Lasix] Lasix 20 MG Lasix 20 MG 12/24/2020 12:00:00 AM EDT 1.0 {tablet} active Lasix 20 M G eCW1 ([facility]) Furosemide 20 MG Oral Tablet [Lasix] Lasix 20 MG Lasix 20 MG 12/24/2020 12:00:00 AM EDT 1.0 {tablet} active Lasix 20 M G eCW1 ([facility]) Furosemide 40 MG Oral Tablet [Lasix] Lasix 40 MG Lasix 40 MG 12/24/2020 12:00:00 AM EDT 1.0 {tablet} active Lasix 40 M G eCW1 ([facility]) Furosemide 20 MG Oral Tablet [Lasix] Lasix 20 MG Lasix 20 MG 12/24/2020 12:00:00 AM EDT 1.0 {tablet} active Lasix 20 M G eCW1 ([facility]) Furosemide 20 MG Oral Tablet [Lasix] Lasix 20 MG Lasix 20 MG 12/24/2020 12:00:00 AM EDT 1.0 {tablet} active Lasix 20 M G eCW1 ([facility]) Furosemide 40 MG Oral Tablet [Lasix] Lasix 40 MG Lasix 40 MG 12/24/2020 12:00:00 AM EDT 1.0 {tablet} active Lasix 40 M G eCW1 ([facility]) Furosemide 20 MG Oral Tablet [Lasix] Lasix 20 MG Lasix 20 MG 12/24/2020 12:00:00 AM EDT 1.0 {tablet} active Lasix 20 M G eCW1 ([facility]) Potassium Chloride CR 15 MEQ UNK 12/24/2020 12:00:00 AM EDT active Potassium Chloride CR 15 MEQ eCW1 ([facility]) Furosemide 40 MG Oral Tablet [Lasix] Lasix 40 MG Lasix 40 MG 12/24/2020 12:00:00 AM EDT 1.0 {tablet} active Lasix 40 M G eCW1 ([facility]) Potassium Chloride CR 15 MEQ UNK 12/24/2020 12:00:00 AM EDT active Potassium Chloride CR 15 MEQ eCW1 ([facility]) Furosemide 20 MG Oral Tablet [Lasix] Lasix 20 MG Lasix 20 MG 12/24/2020 12:00:00 AM EDT 1.0 {tablet} active Lasix 20 M G eCW1 ([facility]) Furosemide 20 MG Oral Tablet [Lasix] Lasix 20 MG Lasix 20 MG 12/24/2020 12:00:00 AM EDT 1.0 {tablet} active Lasix 20 M G eCW1 ([facility]) Furosemide 20 MG Oral Tablet [Lasix] Lasix 20 MG Lasix 20 MG 12/24/2020 12:00:00 AM EDT 1.0 {tablet} active Lasix 20 M G eCW1 ([facility]) Furosemide 40 MG Oral Tablet [Lasix] Lasix 40 MG Lasix 40 MG 12/24/2020 12:00:00 AM EDT 1.0 {tablet} active Lasix 40 M G eCW1 ([facility]) 20 mg 12/24/2020 12:00:00 AM EDT tablet [...] 12:00:00 AM EDT ORAL completed MEDENT ([facility]) Melatonin 10 MG Melatonin 11/30/2020 01:00:00 AM EDT completed NETSMART ([facility]) Ferrous Sulfate 325 (65 Fe) MG Ferrous Sulfate 11/30/2020 01:00:00 AM EDT completed NETSMART ([facility]) Lidocaine Pain Relieving 4 % Lidocaine Pain Relieving 2020 01:00:00 AM EDT completed NETSMAR T ([facility]) MetFORMIN HCl ER (MOD) 500 MG MetFORMIN HCl ER (MOD) 11/30/2020 01:00:00 AM EDT 2.0 {tablet} completed N ETSMART ([facility]) Lidocaine 0.05 MG/MG Topical Ointment LIDOCAINE [...] AM E DT 1.0 {tablet} completed NETSMART ([facility]) Ferrous Sulfate 324 MG Ferrous Sulfate 11/24/2020 01:00:00 AM EDT 1.0 {tablet} completed NETSMART ([facility]) FreeStyle Weld Lite w/Device FreeStyle Weld Lite 11/24 01:00:00 AM EDT completed NETSMAR T ([facility]) Lancets 28 G Lancets 28 G 11/24/2020 01:00:00 AM EDT completed NETSMART ([facility]) Losartan Potassium-HCTZ 100-12.5 MG Losartan Potassium-HCTZ 11/24/2020 01:00:00 AM EDT 1.0 {tablet} completed N ETSMART ([facility]) Colace 100 MG Colace 11/24/2020 01:00:00 AM EDT 1.0 {tablet} completed NETSMART ([facility]) MetFORMIN HCl 500 MG MetFORMIN HCl 11/24/2020 01:00:00 AM EDT 1.0 {tablet} completed NETSMART ([facility]) Tylenol Extra Strength 500 MG Tylenol Extra Strength 11/24/2020 01:00:00 AM EDT 0 {tablet} completed NET SMART ([facility]) Tylenol PM Tylenol PM 11/24/2020 01:00:00 AM EDT 1.0 {tablet} completed NETSMART ([facility]) Ciprofloxacin 750 MG Oral Tablet Ciprofloxacin HCl 750 MG Ciprofloxacin HCl 750 MG 11/22/2020 12:00:00 AM EDT 1.0 {tablet} activ e Ciprofloxacin HCl 750 MG eCW1 ([facility]) 750 mg 11/22/2020 12:00:00 AM EDT tablet 20 TAKE ONE TABLET BY MOUTH EVERY 12 HOURS TAKE ONE TABLET BY MOUTH EVERY 12 HOURS SOLD: 11/22/2020 [facility] BLOOD-GLUCOSE METER 2020 12:00:00 AM EDT kit [...] 07/20/2020 12:00:00 AM EST completed [facility] ([facility]) 250 mg 06/04/2020 12:00:00 AM EST tablet 14 TAKE ONE TABLET BY MOUTH TWICE A DAY FOR 7 DAYS TAKE ONE TABLET BY MOUTH TWICE A DAY FOR 7 DAYS SOLD: 06/04/2020 [facility] Ciprofloxacin 250 MG Oral Tablet [Cipro] Cipro 06/04/2020 12:00: 00 AM EST ORAL completed [facility] ([facility]) 24 HR Metformin hydrochloride 500 MG Extended [...] 12:00:00 AM EDT ORAL completed [facility] ([facility]) 250 mg 02/24/2020 12:00:00 AM EDT tablet 10 TAKE ONE TABLET BY MOUTH TWICE A DAY FOR 5 DAYS START 3 DAYS PRIOR TO PROCEDURE TAKE ONE TABLET BY MOUTH TWICE A DAY FOR 5 DAYS START 3 DAYS PRIOR TO PROCEDURE SOLD: 02/26/2020 [facility] Ciprofloxacin 250 MG Oral Tablet Ciprofloxacin HCL 02/24/2020 12:00 :00 AM EDT ORAL completed [facility] ([facility]) NITROFURANTOIN, MACROCRYSTALS 25 MG / Ni trofurantoin, Monohydrate 75 MG Oral Capsule Nitrofurantoin Monohyd Macro 02/23/2020 12:00:00 AM EDT ORAL completed [facility] ([facility]) 100 mg 02/23/2020 12:00:00 [...] Policy Rae Plan Information Medicare Medicare Primary [id number] Self [id number] Medicare Medicare Primary [id number] Self [id number] Medicare Medicare Primary [id number] Self [id number] Medicare Medicare Primary [id number] Self [id number] Medicare Medicare Primary [id number] Self [id number] Medicare Medicare Primary [id number] Self MEDICARE A [id number] Self [id number] Medicare Medicare Primary [id number] Self [id number] MEDICARE [id number] Janna [id number] U75 Medicare Medicare Primary [id number] Self [id number] A Medicare Medicare Primary [id number] Self [id number] MEDICARE [id number] xxxxxxxxxxx [id number] [facility] [id number] 89 [id number] BCBS EMPIRE ARASH DIV [id number] SP [id number] EXCELLUS BCBS [id number] xxxxxxxxxxxx [id number] EXCELLUS BCBS [id number] Janna YLS [id number] INSURANCE COVID-19 [id number] [id number] INSURANCE COVID-19 COVID Janna C OVID EMPIRE PLAN [facility] U [id number] Self [id number] ANSI-Commercial [id number] ANSI-Commercial [id number] ANSI-Medicare Part B [id number] [place] Plan [facility] Medigap Part B [id number] Self [id number] [facility] [place] Medigap Part B [id number] Self Medicare [place] Primary [id number] Self [place] Plan [employer] Medigap Part B [id number] Self EMPIRE BLUE CROSS BLUE SHIELD -O/P [id number] 18 [id number] MEDICARE -O/P [id number] 18 [id number] EMPIRE BLUE CROSS BLUE SHIELD -O/P [id number] 18 [id number] MEDICARE -O/P [id number] 18 [id number] [facility] [id number] SP [id number] BCBS EMPIRE ARASH DIV [id number] SP [id number] MEDICARE [id number] SP [id number] EXCELLUS BLUE CROSS BLUE SHIELD HEA [id number] S [id number] MEDICARE MCA [id number] S [id number] MEDICARE MCA [id number] S [id number] [id number] [facility] [id number] SP [id number] BCBS EMPIRE ARASH DIV [id number] [place] Plan Medigap Part B [id number] [facility] [id number] ANSI-Commercial [id number] ANSI-Medicare Part B [id number] ANSI-Medicare Part B [id number] ANSI-Commercial [id number] ANSI-Commercial [id number] ANSI-Medicare Part B [id number] MEDICARE [id number] SP [id number] A ANSI-Medicare Part B [id number] ANSI-Commercial [id number] ANS-Medicare Part B [id number] Problems, Conditions, and Diagnoses Code Display Name Description Problem Type Effective Dates Data Source(s) C22.0 Liver cell carcinoma Liver cell carcinoma Diagnosis 04/09/2021 12:00:00 AM [facility] new pt new pt Diagnosis 03/04/2021 12:00:00 AM ED [facility] N21.0 Calculus in bladder Calculus in bladder Diagnosis 1 08:25:00 AM EDT [facility] N32.81 Overactive bladder Overactive bladder Diagnosis 07/2019 08:25:00 AM EDT [facility] J98.8 Other specified respiratory disorders Ot her specified respiratory disorders Diagnosis 02/26/2020 11:08:19 AM EDT [facility] U07.1 COVID-19 COVID-19 Diagnosis 02/26/2020 11:08:19 AM ED T [facility] C22.0 Primary malignant neoplasm of liver Primary valeri gnant neoplasm of liver Problem 03/20/2021 12:00:00 AM EDT [facility] ([facility]) K92.2 Gastrointestinal hemorrhage Gastrointestinal hemorrhag e Problem 03/20/2021 12:00:00 AM EDT [facility] ([facility]) 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 Problem 03/05/20 12:00:00 AM EDT eCW1 ([facility]) C22.0 [id number] Hepatocellular carcinoma Problem 02/15/2021 12:00:00 AM EDT eCW1 ([facility]) R16.0 [id number] Liver mass, right lobe Problem 01/17/2021 12 :00:00 AM EDT eCW1 ([facility]) R18.8 [id number] Other ascites Problem 01/17/2021 12:00:00 AM EDT eCW1 ([facility]) K76.0 [id number] Fatty liver Problem 01/01/2021 12:00:00 AM E DT eCW1 ([facility]) D64.9 [id number] Chronic anemia Problem 11/28/2020 12:00:00 A M EDT eCW1 ([facility]) C61 Malignant neoplasm of prostate Malignant neoplasm of p rostate Problem 11/24/2020 01:00:00 AM EDT NETSMART ([facility] ) 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 Malignant neoplasm of ur ethra Problem 11/24/2020 01:00:00 AM EDT NETSMART ([facility] ) E11.9 Type 2 diabetes mellitus without complic ations Type 2 diabetes mellitus without complications Problem 11/24/2020 01:00:00 AM EDT NETSMART ([facility]) I10 Essential (primary) hypertension Essential (primary) h ypertension Problem 11/24/2020 01:00:00 AM EDT NETSMART ([facility] ) R78.81 Bacteremia Bacteremia Problem 11/24/2020 01:00:00 AM ED T NETSMART ([facility]) 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 Pseudomonas (aeruginosa) (mallei) (pseud omallei) as the cause of diseases classified elsewhere Problem 11/24/2020 01:00:00 A M EDT NETSMART ([facility]) K74.60 Unspecified cirrhosis of liver Unspecified cirrhosis o f liver Problem 11/24/2020 01:00:00 AM EDT NETSMART ([facility] ) D69.6 Thrombocytopenia, unspecified Thrombocytopenia, unspec ified Problem 11/24/2020 01:00:00 AM EDT NETSMART ([facility] ) Z46.6 Encounter for fitting and adjustment of urinary device Encounter for fitting and adjustment of urinary device Problem 11/24/2020 01:00:00 AM EDT NETSMART ([facility]) Z43.6 Encounter for attention to other artific ial openings of urinary tract Encounter for attention to other artificial openings of urinary tract Problem 11/24/2020 01:00:00 AM EDT NETSMART ([facility] ) 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 Problem 11/24/2020 01:00:00 AM EDT NE TSMART ([facility]) Z90.89 Acquired absence of other organs Acquired absenc e of other organs Problem 11/24/2020 01:00:00 AM EDT NETSMART ([facility]) Z90.79 Acquired absence of other genital organ( s) Acquired absence of other genital organ(s) Problem 11/24/2020 01:00:00 AM EDT NETSMART ([facility]) Z90.6 Acquired absence of other parts of urina ry tract Acquired absence of other parts of urinary tract Problem 11/24/2020 01:00:00 AM EDT NETSMART ([facility]) 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 Problem 11/24/2020 01:00:00 AM EDT NETSMART ([facility]) 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 Prob donita 04/20/2020 12:00:00 AM EST [facility] ([facility]) N32.81 Overactive bladder Overactive bladder Problem 0 12:00:00 AM EDT [facility] ([facility]) Surgeries/Procedures Procedure Description Date Indications Data Source(s) OFFICE OUTPATIENT VISIT 15 MINUTES 03/20/2021 12:00:00 AM EDT [facility] ([facility]) HOSPITAL DISCHARGE DAY MANAGEMENT > 30 MIN 03/12/2021 12:00:00 AM EDT [facility] ([facility]) [facility] CARE/DAY 35 MINUTES 03/11/2021 12:00:00 AM EDT [facility] ([facility]) [facility] CARE/DAY 15 MINUTES 02/18/2021 12:00:00 AM EDT [facility] ([facility]) [facility] C[facility]/DAY 25 MINUTES 02/17/2021 12:00:00 AM EDT MED[facility] ([facility]) Electrocardiogram Interpretation & Report Only 021 12:00:00 AM EDT [facility] ([facility]) OFFICE OUTPATIENT VISIT 15 MINUTES 02/14/2021 12:00:00 AM EDT [facility] ([facility]) OFFICE OUTPATIENT VISIT 15 MINUTES 01/22/2021 12:00:00 AM EDT [facility] ([facility]) Electrocardiogram Interpretation & Report Only 021 12:00:00 AM EDT [facility] ([facility]) APPENDECTOMY 11/13/2020 12:00:00 AM EDT M EDENT ([facility]) Cystectomy, And Ileal Loop 11/13/2020 12:00:00 AM EDT [facility] ([facility]) ECG ROUTINE ECG W/LEAST 12 LDS W/I&R 11/07/2020 12:00: 00 AM EDT eCW1 ([facility]) INSJ TEMP NDWELLG BLADDER CATHETER SIMPLE 09/25/2020 1 2:00:00 AM EDT [facility] ([facility]) OFFICE OUTPATIENT VISIT 40 MINUTES 09/10/2020 12:00:00 AM EDT [facility] ([facility]) INSJ TEMP NDWELLG BLADDER CATHETER SIMPLE 08/22/2020 1 2:00:00 AM EDT [facility] ([facility]) CYSTOURETHROSCOPY 08/03/2020 12:00:00 AM EST [facility] ([facility]) OFFICE OUTPATIENT VISIT 10 MINUTES 08/03/2020 12:00:00 AM EST [facility] ([facility]) Sars-Cov-2 (Covid-19) vaccine,Pfizer, LNP-S, PF, 30 mcg/ 0.3 mL 07/29/2020 12:00:00 AM EST [facility] ([facility]) OFFICE OUTPATIENT VISIT 25 MINUTES 07/20/2020 12:00:00 AM EST [facility] ([facility]) Sars-Cov-2 (Covid-19) vaccine,Pfizer, LNP-S, PF, 30 mcg/ 0.3 mL 07/08/2020 12:00:00 AM EST [facility] ([facility]) INSJ TEMP NDWELLG BLADDER CATHETER SIMPLE 06/21/2020 1 2:00:00 AM EST [facility] ([facility]) US RETROPERITONEAL REAL TIME W/IMAGE LIMITED 0 12:00:00 AM EST [facility] ([facility]) US RETROPERITONEAL REAL TIME W/IMAGE LIMITED 0 12:00:00 AM EST [facility] ([facility]) OFFICE OUTPATIENT VISIT 25 MINUTES 05/30/2020 12:00:00 AM EST [facility] ([facility]) INSJ TEMP NDWELLG BLADDER CATHETER SIMPLE 05/22/2020 1 2:00:00 AM EST [facility] ([facility]) INSJ TEMP NDWELLG BLADDER CATHETER SIMPLE 04/20/2020 1 2:00:00 AM EST [facility] ([facility]) INSJ TEMP NDWELLG BLADDER CATHETER SIMPLE 03/22/2020 1 2:00:00 AM EDT [facility] ([facility]) CARLENE POST-VOIDING RESIDUAL URINE&/BLDR CAP 03/22/2020 12:00:00 AM EDT [facility] ([facility]) CARLENE POST-VOIDING RESIDUAL URINE&/BLDR CAP 03/20/2020 12:00:00 AM EDT [facility] ([facility]) CARLENE POST-VOIDING RESIDUAL URINE&/BLDR CAP 03/16/2020 12:00:00 AM EDT [facility] ([facility]) Cystourethroscopy,/W Injects For [place] Of The Geoff dder 03/02/2020 12:00:00 AM EDT [facility] ([facility]) History & Physical 02/24/2020 12:00:00 AM EDT [facility] ([facility]) Results ID Date Data Source [id number] 04/09/2021 08:41:20 AM [facility] Name Value Range Interpretation Code Description Data Ema rce(s) Supporting Document(s) History and Physical [facility] [id number] [id number] [file] [id number]/photographic colorist+[id number] [file] ID Date Data Source [id number] 04/09/2021 08:22:57 AM [facility] Name Value Range Interpretation Code Description Data Ema rce(s) Supporting Document(s) Leukocytes [#/volume] in Blood by Automated count 3.9 10*3/uL 4-10 L [facility] Erythrocytes [#/volume] in Blood by Automated count 2.94 10*6/uL 4.6- 6.1 L [facility] Hemoglobin [Mass/volume] in Blood 8.3 g/dL 13.5-18 L [facility] Hematocrit [Volume Fraction] of Blood by Automated count 24.7 % 4 1-53 L [facility] Erythrocyte mean corpuscular volume [Entitic volume] by Auto mated count 84.2 fL 80-96 [facility] Erythrocyte mean corpuscular hemoglobin [Entitic mass] by Automated count 28.1 pg 27-33 [facility] Erythrocyte mean corpuscular hemoglobin concentration [Mass/volume] by Automated count 33.4 g/dL 32.0-[facility] distribution width [Ratio] by Automated count 16.4 % 11.5-14.5 H [facility] Platelets [#/volume] in Blood by Automated count 133 10*3/uL 150-400 L [facility] Differential cell count method - Blood [facility] Neutrophils/100 leukocytes in Blood by Automated count 75 % [facility] Lymphocytes/100 leukocytes in Blood by Automated count 7 % [facility] Monocytes/100 leukocytes in Blood by Automated count 10 % [facility] Eosinophils/100 leukocytes in Blood by Automated count 6 % [facility] Basophils/100 leukocytes in Blood by Automated count 2 % [facility] Neutrophils [#/volume] in Blood by Automated count 3.00 10*3/uL 1.8-7 .0 [facility] Lymphocytes [#/volume] in Blood by Automated count 0.26 10*3/uL 1.2-4 .0 L [facility] Monocytes [#/volume] in Blood by Automated count 0.39 10*3/uL 0-0.8 [facility] Eosinophils [#/volume] in Blood by Automated count 0.24 10*3/uL 0-0.5 [facility] Basophils [#/volume] in Blood by Automated count 0.06 10*3/uL 0-0.2 [facility] Nucleated erythrocytes/100 leukocytes [Ratio] in Blood by Automated count 0 /100{WBCs} 0-0 [facility] ID Date Data Source [id number] 04/09/2021 08:38:37 AM [facility] Name Value Range Interpretation Code Description Data Ema rce(s) Supporting Document(s) Prothrombin time (PT) 14.9 s 11.6-14.0 H [facility] INR in Platelet poor plasma by Coagulation assay 1.21 [facility] Routine intensity oral anticoagulation I NR is typically 2.0-3.0. Target INR must be clinically individualized. ID Date Data Source [id number] 04/09/2021 08:43:53 AM [facility] Name Value Range Interpretation Code Description Data Ema rce(s) Supporting Document(s) Albumin [Mass/volume] in Serum or Plasma by Bromocresol green (BCG) dye binding method 3.0 g/dL 3.5-5.2 [facility] Bilirubin.total [Mass/volume] in Serum or Plasma 0.5 mg/dL <1.2 [facility] Calcium [Mass/volume] in Serum or Plasma 10.7 mg/dL 8.8-10.2 H [facility] Chloride [Moles/volume] in Serum or Plasma 102 mmol/L 98-107 [facility] Creatinine [Mass/volume] in Serum or Plasma 1.50 mg/dL 0.70-1.20 H [facility] Glucose [Mass/volume] in Serum or Plasma 114 mg/dL 70-140 [facility] Alkaline phosphatase [Enzymatic activity/volume] in Serum or Plasma 181 U/L 40-129 H [facility] Potassium [Moles/volume] in Serum or Plasma 4.9 mmol/L 3.4-5.1 [facility] Protein [Mass/volume] in Serum or Plasma 7.4 g/dL 6.4-8.3 [facility] Sodium [Moles/volume] in Serum or Plasma 130 mmol/L 136-145 L [facility] Aspartate aminotransferase [Enzymatic activity/volume] in Serum or Plasma 90 U/L <40 H [facility] Urea nitrogen [Mass/volume] in Serum or Plasma 55 mg/dL 8-23 H [facility] Osmolality of Serum or Plasma by calculation 286 mosm/kg 275-300 [facility] Creatinine/Urea nitrogen [Mass Ratio] in Serum or Plasma 37 [facility] Bicarbonate [Moles/volume] in Serum 15 mmol/L 22-29 L [facility] Alanine aminotransferase [Enzymatic activity/volume] in Seru m or Plasma 66 U/L <41 H [facility] Anion gap 3 in Serum or Plasma 13 mmol/L 8-15 [facility] Glomerular filtration rate/1.73 sq M pre dicted among non-blacks [Volume Rate/Area] in Serum or Plasma by Creatinine-based formula (MDRD) 43 mL/min/1.73m2 >60 L [facility] Glomerular filtration rate/1.73 sq M pre dicted among blacks [Volume Rate/Area] in Serum or Plasma by Creatinine-based formula (MDRD) 49 mL/min/1.73m2 >60 L [facility] ID Date Data Source [id number] 04/09/2021 07:41:57 AM [facility] Name Value Range Interpretation Code Description Data Ema rce(s) Supporting Document(s) Glucose [Mass/volume] in Capillary blood by Glucometer 106 mg/dL 70- 140 [facility] ID Date Data Source MAGNESIUM LEVEL 04/08/2021 12:00:00 AM EST eCW1 ([facility]) Name Value Range Interpretation Code Description Data Ema rce(s) Supporting Document(s) 2.4 1.8-2.4 MAGNESIUM LEVEL eCW1 (Counts include 234 beds at the [facility]) ID Date Data Source Basic Metabolic Profile (BMP) 04/08/2021 12:00:00 AM EST eCW 1 ([facility]) Name Value Range Interpretation Code Description Data Ema rce(s) Supporting Document(s) 155 70-100 GLUCOSE, FASTING eCW1 ([facility]) 45 7-18 BLOOD UREA NITROGEN eCW1 ([facility]) 135 136-145 SODIUM LEVEL eCW1 ([facility]) 41.0 >42 GLOMERULAR FILTRATION RATE eCW 1 ([facility]) 1.72 0.70-1.30 CREATININE FOR GFR eCW1 ([facility]) 5.2 3.5-5.1 POTASSIUM SERUM eCW1 (Counts include 234 beds at the [facility]) 20 21-32 CARBON DIOXIDE LEVEL eCW1 ([facility]) 11.0 8.8-10.2 CALCIUM LEVEL eCW1 ([facility]) 107 98-107 CHLORIDE LEVEL eCW1 ([facility]) ID Date Data Source CBC with Differential 04/08/2021 12:00:00 AM EST eCW1 ([facility]) Name Value Range Interpretation Code Description Data Ema rce(s) Supporting Document(s) 3.01 4.30-6.10 RED BLOOD COUNT eCW1 (Counts include 234 beds at the [facility]) 4.0 4.0-10.0 WHITE BLOOD COUNT eCW1 ([facility]) 8.3 13.5-17.5 HEMOGLOBIN eCW1 ([facility]) 86.0 80.0-96.0 MEAN CORPUSCULAR VOLUME e CW1 ([facility]) 25.9 42.0-52.0 HEMATOCRIT eCW1 ([facility]) 178 150-450 PLATELET COUNT, AUTOMATED eCW1 ([facility]) 27.6 27.0-33.0 MEAN CORPUSCULAR HEMOGLOB IN W1 ([facility]) 15.9 11.5-14.5 RED CELL DISTRIBUTION WID TH eCW1 ([facility]) 32.0 32.0-36.5 MEAN CORPUSCULAR HGB CONC W1 ([facility]) 66.1 36.0-66.0 NEUTROPHILS % eCW1 ([facility]) 10.4 24.0-44.0 LYMPH % eCW1 ([facility]) 14.1 2.0-8.0 MONO % eCW1 ([facility]) 7.3 0.0-3.0 EOS % eCW1 ([facility]) 1.8 0.0-1.0 BASO % eCW1 ([facility]) 2.6 1.5-8.5 NEUTROPHILS # eCW1 ([facility]) 0.4 1.5-5.0 LYMPH # eCW1 ([facility]) 0.3 0.0-0.5 EOS # eCW1 ([facility]) 0.6 0.0-0.8 MONO # eCW1 ([facility]) 0.1 0.0-0.2 BASO # eCW1 ([facility]) ID Date Data Source [id number] 04/05/2021 12:51:04 PM EDT [facility] Name Value Range Interpretation Code Description Data Ema rce(s) Supporting Document(s) Progress Note [facility] MTYKGv2vMlHLMzGo15/DXGqqIPAph8MgYKhdRQb0RSrvEXUfH6ScTFE6nN5sVJO3IHaPPlCjDpXhHND5 lbm NbEebGDjNaNJExRxvFIbDlTBqpNzrjzXZuNC9NxIS7JFPfA13eOMLkWNKmE9RoSGC0NDr+Tq7LAWOmeQ AiUS6FSduS9QncUtpUCI7eck9igZbXBsW1e7qtc6iQXQzXZHqeN5Eh6YvHc48f1+faJin/cjgp8xFzSz jWVFUTRfBkd+mOsY0zlA8FLZBer2E+2PqOG0W/628D z1V4MLh/ihgmjlQxRf9EBsST7BSZLAnGp3Sm/jH6wxJ699sRtkzB63WJVQ5A3EqXN/3By+FuBd4PGH30 INolUAIxRilEFJWM2PBV4Tiifwq0sfUSiK8DWofEFEyTqjj4BBLNANjnnwTEBZ0+xarlIvq3TEYGxkPh PC73NPATIk4jGNnXZeg//1evtc51hBTTJDt66MyKrn PRTZqLn2VRj+AVuwOE0SOrfhFLwR4RtbI5IydFZ83H6AbbMqh3DMAsE7/+IhZDu/OT3yzxHOUvNTtxPd Otms44VEgPQ3t+QKsiflbjeLYSx/E0GS2i+y09fvuqR9DFwWmK1iayE75ebRrSZlV+7efjLjcVJX0fRk cVzQjK3l2ZDt9GIfuy9gE2Ef8YG8Cvc1WEUsH028r/ eytWwZyDn1QlLbDLHsnnU2r/DGvnHZ+0wYlICiz9ik4UhfYJodUeu5c1Mj86SnXZFA1My7Z1wDlhUtNh x2KaryBpbE2llh155P1lIKRTDWc3LBObJ9iehILYjBRlIK2d3lzXo6QCkW8UMcjQMliJUuZGA3Ork/RR klmDhcPDTHbhLmM0TSJYB4tieLgQBk14YZG1JrhEmW 72JvQOkFgSZQiVE0TiKYebK69Y31G4K8XcuyIIRLRfpAzqnlAOwaWdYHivANvkDW3xPWHGINPPbpWNs2 BVFarIchQpDcAnf29J819809cdSn9eq3zJwYCRY2S/gX2p2gcPVpUqpM5vFImBVXksbZ1+R/WvDDxfJF /Jp4bdtaFstArQo+kSyMIEGXEsd5ASC6Ny3GY+3/HINOJOSA [file] LeKKMjYoulYyVoGH8ZFh2QAfW9UEM5jBLpEc3VIKa4NYPYJwPqIR2ZHMx= ID Date Data Source [id number] 04/05/2021 12:51:00 PM EDT [facility] Name Value Range Interpretation Code Description Data Ema rce(s) Supporting Document(s) SARS-CoV-2 RNA 2019 nCoV Real-Time RT-PCR: NOT DETECTED [facility] This lab was ordered by [facility] and reported by [facility]. 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 [facility] Patient has symptoms related to [facility] When did you start to experience these symptoms [Date and time] [Phen X] [facility] Patient was hospitalized because of this condition [facility] patient was admitted to ICU for [facility] Patient resides in a congregate care setting [facility] status [facility] ID Date Data Source [id number] 03/31/2021 05:03:49 PM EDT [facility] Name Value Range Interpretation Code Description Data Ema rce(s) Supporting Document(s) Progress Note [facility] WQEAIw4lJqIMWyEh03/ERThwPGZsn6HxBIzwKRh6GQseDGCbK5EcWLB4oD5qVPV5HJiFUaEuOnNeACXv lbm [file] ICAgICAgICAgICAgICAgICAgICAgICAgICAgICAgIC AgICAgICAgICAgICAgICAgICAgICAgICAgICAgICAgICAgICAgICAgICAgICAgICAgICAgDQogICAgIC AgICAgICAgICAgICAgICAgICAgICAgICAgICAgICAgICAgICAgICAgICAgICAgICAgICAgICAgICAgIC AgICAgICAgICAgICAgICAgICAgICAgICAgICAgICAg ICAgDQogICAgICAgICAgICAgICAgICAgICAgICAgICAgICAgICAgICAgICAgICAgICAgICAgICAgICAg ICAgICAgICAgICAgICAgICAgICAgICAgICAgICAgICAgICAgICAgICAgICAgDQogICAgICAgICAgICAg ICAgICAgICAgICAgICAgICAgICAgICAgICAgICAgIC AgICAgICAgICAgICAgICAgICAgICAgICAgICAgICAgICAgICAgICAgICAgICAgICAgICAgICAgDQogIC AgICAgICAgICAgICAgICAgICAgICAgICAgICAgICAgICAgICAgICAgICAgICAgICAgICAgICAgICAgIC AgICAgICAgICAgICAgICAgICAgICAgICAgICAgICAg ICAgICAgDQogICAgICAgICAgICAgICAgICAgICAgICAgICAgICAgICAgICAgICAgICAgICAgICAgICAg ICAgICAgICAgICAgICAgICAgICAgICAgICAgICAgICAgICAgICAgICAgICAgICAgDQogICAgICAgICAg ICAgICAgICAgICAgICAgICAgICAgICAgICAgICAgIC AgICAgICAgICAgICAgICAgICAgICAgICAgICAgICAgICAgICAgICAgICAgICAgICAgICAgICAgICAgDQ ogICAgICAgICAgICAgICAgICAgICAgICAgICAgICAgICAgICAgICAgICAgICAgICAgICAgICAgICAgIC AgICAgICAgICAgICAgICAgICAgICAgICAgICAgICAg ICAgICAgICAgDQogICAgICAgICAgICAgICAgICAgICAgICAgICAgICAgICAgICAgICAgICAgICAgICAg ICAgICAgICAgICAgICAgICAgICAgICAgICAgICAgICAgICAgICAgICAgICAgICAgICAgDQogICAgICAg ICAgICAgICAgICAgICAgICAgICAgICAgICAgICAgIC AgICAgICAgICAgICAgICAgICAgICAgICAgICAgICAgICAgICAgICAgICAgICAgICAgICAgICAgICAgIC HsITa0J2atAUBaLBPbVN9dFDg0Qi9+OLgPCaNxLNJ5yfYylS0RGQ9vl1AsBPubZCShf1ExIMu0HN8LHN RsEPknCU4INTpncd5LROCpAEZvpMFCn1rhVkWoWCA1 VLGcSmcfRE1MYIKhR3nvgxDnXRDxSTYPHJ4TRmFhZ0RyqR77MPIGLl9+RGcetzJoXxyCKlN4MSPau3Pk KOo3DE5LVJReJnipb7UlMlApGDRCGNtjMS4AKXJ6XKMaISTvKp6HOSTeG077kdEoCP2EXj1QKdUrFP5a xe4KTzDvVPSaUutCLhp7QZolXN0UdCJhNOtYuu1apt XvbeNWg8AborHaeUOXMOw7xTCOLNEzEDYXOdZvmWYnJM2aLR6lPEQbUTQqIhT1ZMZMAH8XLUUiMQTolW GlUDXaKXZCIQ3DPPolHCI6CRVmcsVbpUNtMWlcOB8OWZZxhgGtIRwjVNDJYSv+Xr9ALS3pu1FhVMlhYS AzBV8txx4PAKgZRbJoT6I2rFPoW6K5QXcuPz4KMEKr DDBeRNotRWWXCAnaIS5ONL9jerU7HT5ZpWMtAWKuZDRkwYXkBYt6F65exYLpODwfHF1DUVY+Earl+Pg0K YKVcHYOaTKHqVdFmKAAVPaKtZ2RoA2RRl8DfI8AxRL79uOygpdNuFPdgZT7EIB0pQPQaWPPCRX3DfOSx eK0gogQdGKCgIUNPUqKrF88ccOLcUPRxYIC0JLIwJq 4SKEIrH3CxpkWzxPlkxoTqYUQjHRNQNO3DJMlutyDlkWQqiFvmSU73vVhyYU2SEk2EVaZqDX3kwv0KgH TpVp2AWGQtOe6BPFCqAIEjGEIyKOI2SNKwTePdBRqlDNWuQJGhJFV1CTOkUSDdMP7CNtVyVPTjONsjBl RcOORoRKFclh5DHORkRSBwCNw4WJJmYHHzQTYnGUoc KHAqEBQhGRS9YLCbYGVuNW0RVnOoAZQoSPW3KGlaTGEtKYPyvo7KLRDbDEFzGtL8ZoCrQTAbCBQiFJxn CORfNNHcIVBnWZMjFMUxBE0DKjGlTYBhPGLfRCiiVGGsZTTyzi1HKJRwKQMhHqL5UyRxOTAyOOChYXlh AGNdYHZ6SsJ0UFQtCYSpPR5PAmRpDXCiANZ4GBxbBA XrLYGkvw7NBWKxPKUrOWcmNRNpFDEmUABbSEmzELTfIFY6PAp8RQBxCXBqHL2JEbPqFMXwQPL6TWOxBH HzQUDhhq9FPBLtJJSrEnDjDCAkKPTyQUJtLVeoBGCrYLO4ZXB0FXNwSYGxEV5TGnXoPIJtKRcaBZWlWB WxGKSihi7SREKqRXBjAcFbDIGyAARqUWRzPBsgODGc BBS1RNT9YBZhAUGtQD6ZQlEnAJQhYOc2NXioODEpNOMjaq1UUVAuVBXgNED1SCBsPIJcQXExEUm7cdIm oBBxMBi1ZM0FL2PrwnQyWxKMEa7Mf599OIJyQHSnZr8KN4ygEw2fSRWtNCUCAr7XQUm1LFC4ZMR2Q2Xx IHYvCSIrVwD7DQDlVEGoEHA4AdJ8ABG+PMi4WLtnTV z5XoDqPQObMgEiNuUdFYE4QIO4YwwbGbyyJO5bKYAENd2+YZynlAYcvWorFDLHRrE6Nqz9WUmqRKROAt 0K ID Date Data Source [id number] 03/31/2021 05:03:44 PM EDT [facility] Name Value Range Interpretation Code Description Data Ema rce(s) Supporting Document(s) Progress Note [facility] YWOPWw1qNuZVOhYe30/ZJKmhOICez0FeTPvnPGa1UQdbENMiW5XzLPY6lW1gDTF8YMuPVzUoKiCeIMSw lbm [file] ICAgICAgICAgICAgICAgICAgICAgICAgICAgICAgIC RiAEFyKQRuUMQfITHxLZ7CLOCyGKGqTDFdNAYkGWKiFGNuPKKpJZDnMZQbCQHvQQYyJBBiGNKqODDzCK DzNMZmQPUdTJGbPBSqUBRoSXZsWOLtUGBgCZXzCQIaHKVqDYTwAUHaPJPoVQOqEIFfVZCiXFKeGE9HTP AgICAgICAgICAgICAgICAgICAgICAgICAgICAgICAg ICAgICAgICAgICAgICAgICAgICAgICAgICAgICAgICAgICAgICAgICAgICAgICAgICAgICAgICAgICAg FRNhFKIgHL8XFGVmZDTyOXOrTMRfHABxMMNyHIKkRZXuGNDePMTqGUVqCBSfOXNmSVCcAZBuSGUzMWHl ICAgICAgICAgICAgICAgICAgICAgICAgICAgICAgIC HjXFPaVAAhNTMwYESaUTHlXK5JEKRfMFUxCZSyHEEbFLOzHRRcCTOdYMNwQWOpXAKgXAFyADAtYDVeQZ AgICAgICAgICAgICAgICAgICAgICAgICAgICAgICAgICAgICAgICAgICAgICAgICAgICAgICAgICAgIA 0KICAgICAgICAgICAgICAgICAgICAgICAgICAgICAg ICAgICAgICAgICAgICAgICAgICAgICAgICAgICAgICAgICAgICAgICAgICAgICAgICAgICAgICAgICAg ZMGfNOMqMOMwEU7YBKEgFBTeVEJwJJWkPHGgAOQyBBKcQJByKNVoJHKoCLIoOGLeWEEqPUMyYTOpYADg ICAgICAgICAgICAgICAgICAgICAgICAgICAgICAgIC LmTREuBUHlEGCtNSDpTWOdCAVxOE1KUXIwEXFcVRJmZWTyOZZsXHYzTRUfGEFgIMLqHDMfPOWwROAkRU AgICAgICAgICAgICAgICAgICAgICAgICAgICAgICAgICAgICAgICAgICAgICAgICAgICAgICAgICAgIC QmRM8FFJJtATRmUZCbGWKyPIWvEDSxHJMmRJYjMZDx ICAgICAgICAgICAgICAgICAgICAgICAgICAgICAgICAgICAgICAgICAgICAgICAgICAgICAgICAgICAg IBNmHNZmUDKrAQEfJL3LMCQhBGBaGTOpGLPnEJGiDLXzRAAwXVTrCAWjKRYtPBBgERVpEZOaRYDmZGQo ICAgICAgICAgICAgICAgICAgICAgICAgICAgICAgIC FgPDSkTGXrFLKaFQPjFPSbEQTaXQGnJU3GPJ52pAOeo3W6TXOsUJ2ypfi/Wv3OJDxsrfVstGKpKF6YAg BbXW3eah4FBjJyWL1evm5DFYfUGnMfH4K3hOEgLEZhBUPLRtQgZ35kTQwyKj04XUgpQKAhPfMyKLt8Nj 8OWqRqS2wcOHAgIlE7TNSyMxH5XCSiGnW8LTSgGeEf KEVnCGHtWYNoPIHJBN9COcWjQ8DptR21KEIIGz7+VOanivUjRudFHxC8MDTmm0DvUCk5OL1YHCYyIooa z8PwXgjcFSNMCVaqFK0VFPA3VYT5JDBbZz1IKEZnK381lmKsLN7GFg9OFsZzLE2nmo7JZqybCGEmQekU Xmh8AJbdFT3HvDBxUOdNug2lxrDubaGFw5NvzmRfmE OPipzrdCvnSHgfJsHtu6CwKONVMEExtLKbJP4yZY8jMKWhZVXpCtZ7DXIHUD1AECAiXNYdbZCoZIBfOD ZSKI8QMVkxIMN2YYXchiWdnERwEFfxFO3TUCQyigTxRuhzWALKDQs+Yd6UOZ2dt5DlLIngMSQjTW5ind 7LYIcKXaZjL4S1eAXyK3Q7ZEysYg6KANMdBMTdPlJu EIOCVKmxFM8ZLG8kfuJ2QP2UqEDyDAElADTqwGZwSZt9L63ieYPhMHduII4FAQK+Earl+Wr6SEDBxGNYs CJCtRzGlHYMSYpJyO3MdL4KXw4KvL4LlMG57kLvvmbPxRYuwXW5EWP6gTBWqTHNCHA3IbIMyaX9cmrWh JhUuSSMVBuPiP11scLAkKYWcKCO5CJUoGo9CKANgA4 EmnhYovAtygpWuACUwLPHTIL7RYWamguTvxGFkeUagJJ13mZalXM6XEd9TXzBfVC1bvs6YcDMnSr6XXY XoDK8RMORbMAYuUDSaQGA0KLGpFmRuKQfoAVTjNEXgHNV1TNWsGYDlEM9PXyOnFNSbBhLpWDGfKQSlUJ Frhi0LDUJvPNVaXlQzUDLjARGoKBMcYIoeVJJyLBVv ARI8OUKbKCWaLB6UZhLwGMVaTJU1LMJsFLWsIRZmcl3TDPYpTIQzBBK3BIWzTRGnXZDwPAbnHZXpXIK7 TnQ6PSTdHXHlVN6HNkCxCUChQDo7SfOjHJXvNMSqzs2FNOYaZHQvSSEfIWPmRQHfMDIfNOpeDBVlZHYb HSL8FPInLVUuZE2GHmMdTOCzOSE6ETFsLOXdECRpli 1LYTTvXFJmLkh8CsVlIUZuWHGlQBqqNKChQKE2ZPQ9IFMwYCJeBW7DNrJmBADvXLDvNERdAICgATZgez 3VXJZlCTZvRiWcLNGiVPOxKHMyUObuLVIqTPS6EKVkADHwMHXrCO4SVeCpSYNuVWC5XUBiRBYjPSDxse 3UCYGdEOAkSrG4XvFyXULwDPDkYSykJZWvSSN9JwK9 CLGrLTRaBR8SFvXnZOWbQYu0HgRdTOOyKPWexv3UMSFuOGNlCEK2DyIeVXYdKBRxYHzrTWJvCTN8Wkt2 FBErPZSbXI3FPvVzDLNxNdf5MEwuXQJiKCPdjn1FREVkIPNoRHB5UhPxUVZqRVKaSQytWBTlISDbFwdx HUVxWVJpGD9EZuSyVLKzChW2TTHuSUKdIHTthk3ERQ ErSWCnKpL0KXWyVUPzWDOtSBzvPOEiMZAySjP7ATWvABBaIR6LXbBbMIGqScHeGEDpYWWtIFLrfk9QlQ CmwAtbga6CSJbCBg8IyWvqLUZvKWrfXg3ehZZaRFHyZXNFId1UqnJyUDDiCAQPXRfwFIRwHFQpUsPtJS P2PQIhFMDdKKAnNmcdFBN4Khz1RhKlTMBlVpZ7SNMe WOZ9Hpi0CoNjVFPiBCOpZZUuGFnfAzieCLOsCUU+LO2oFJn+Ui6Fu4JjsqZ3smFzTVggEjAcRE6FYQGB T0YNCg== ID Date Data Source [id number] 03/31/2021 11:27:34 AM EDT [facility] Name Value Range Interpretation Code Description Data Ema rce(s) Supporting Document(s) POC GLUCOSE 206 mg/dL (70-99) H [facility] NOTIFIED PROVIDERNOTIFIED NURSEPERFORMED BY CLINICAL STAFF ID Date Data Source [id number] 03/31/2021 09:33:13 AM EDT [facility] Name Value Range Interpretation Code Description Data Ema rce(s) Supporting Document(s) WBC 4.7 10*3/uL (4.1-11.0) [facility] [place] RBC 3.05 10*6/uL (4.60-6.10) L [facility] HGB 8.5 g/dL (13.5-18.0) L [facility] PATIENT TRANSFUSED HCT 25.8 % (41.0-53.0) L [facility] PERFORMED AT [address] [place] [address] MCV 84.6 fL (80.0-95.0) [facility] MCH 28.0 pg (27.0-32.0) [facility] MCHC 33.0 g/dL (32.0-36.0) [facility] RDW 16.2 % (10.5-14.5) H [facility] PLT 167 10*3/uL (150-450) [facility] MPV 8.8 fL (7.1-10.7) [facility] ID Date Data Source [id number] 03/31/2021 08:41:39 AM EDT [facility] Name Value Range Interpretation Code Description Data Ema rce(s) Supporting Document(s) POC GLUCOSE 122 mg/dL (70-99) H [facility] PERFORMED BY CLINICAL STAFF ID Date Data Source [id number] 03/30/2021 04:54:35 PM EDT [facility] Name Value Range Interpretation Code Description Data Ema rce(s) Supporting Document(s) POC GLUCOSE 174 mg/dL (70-99) H [facility] PERFORMED BY CLINICAL STAFF ID Date Data Source [id number] 03/30/2021 12:43:48 PM EDT [facility] Name Value Range Interpretation Code Description Data Ema rce(s) Supporting Document(s) POC GLUCOSE 167 mg/dL (70-99) H [facility] NOTIFIED NURSEPERFORMED BY CLINICAL S TAFF ID Date Data Source [id number] 03/30/2021 12:39:34 PM EDT [facility] Name Value Range Interpretation Code Description Data Ema rce(s) Supporting Document(s) WBC 3.2 10*3/uL (4.1-11.0) L [facility] [place] RBC 2.36 10*6/uL (4.60-6.10) L [facility] HGB 6.6 g/dL (13.5-18.0) L [facility] RESULT(S) CALLED TO AND READ BACK BYInhale Digital ICA 4S AT 1237 ON 03/30/21 [place] [id number] HCT 19.9 % (41.0-53.0) L [facility] PERFORMED AT [address] [place] [address]BOCQJD(S) CALLED TO AND READ BACK BYInhale DigitalICA 4S AT 1237 ON 03/30/[place] [id number] MCV 84.3 fL (80.0-95.0) [facility] MCH 27.9 pg (27.0-32.0) [facility] MCHC 33.1 g/dL (32.0-36.0) [facility] RDW 16.8 % (10.5-14.5) H [facility] PLT 141 10*3/uL (150-450) L [facility] MPV 9.3 fL (7.1-10.7) [facility] ID Date Data Source [id number] 03/30/2021 08:35:32 AM EDT [facility] Name Value Range Interpretation Code Description Data Ema rce(s) Supporting Document(s) POC GLUCOSE 119 mg/dL (70-99) H [facility] NOTIFIED NURSEPERFORMED BY CLINICAL S TAFF ID Date Data Source [id number] 03/30/2021 05:31:19 AM EDT [facility] Name Value Range Interpretation Code Description Data Ema rce(s) Supporting Document(s) URINE WBC (0-5) [facility] URINE RBC (0-2) [facility] BACTERIA 2+ [HPF] [facility] ID Date Data Source [id number] 03/30/2021 05:05:22 AM EDT [facility] Name Value Range Interpretation Code Description Data Ema rce(s) Supporting Document(s) COLOR [facility] PERFORMED AT [address] [facility] [address] APPEARANCE [facility] SPEC GRAV URINE 1.011 (1.003-1.030) [facility] PH URINE 6.0 (5.0-7.5) [facility] LEUK ESTERASE (NEG) [facility] CRITERIA FOR CULTURE NOT MET.CULTURE CAN BE ADDED WITHIN 36 HOURS OFCOLLECTION. NITRITE URINE (NEG) [facility] PROTEIN URINE (NEG) [facility] GLUCOSE URINE (NEG) [facility] KETONE URINE (NEG) [facility] UROBILINOGEN 0.2 mg/dL (0-1.0) [facility] BILIRUBIN URINE (NEG) [facility] BLOOD/HGB URINE (NEG) A [facility] ID Date Data Source [id number] 03/31/2021 12:30:00 AM EDT [facility] [place] [id number] PATIENT NAME: EL LINARES OF : 2REPORT: ADMISSION NOTEPATIENT NUMBER: [id number] STATUS: SDMEDICAL RECORD NUMBER: [id number] OF ADMISSION: 1ROOM: 02 PRIMARY CARE PROVIDER: Анна Braun MD UROLOGIST: Dr. Walker. The patient also follows up with [facility]. CHIEF COMPLAINTS: Recurrent bleeding from the ostomy. HISTORY OF PRESENT ILLNESS: 80-year-old unfortunate male with history of prior bladder cancer requiring a radical cystoprostatectomy with ileal conduit and recently diagnosed hepatocellular carcinoma and scheduled to receive radiation therapy at [facility] presented to the ED with reports of recurrent bleeding from ostomy since Thursday morning. The patient has had multiple episodes of this and was discharged from [facility] in 03/12/2021 with the similar episode requiring [...] portal vein thrombosis, pending radiation therapy at [facility].6. Chronic ascites, on diuretics.7. Recurrent bleeding from [...] recurrent bleeding from the ostomy, discharged from [facility] about three weeks ago and required pressure [...] MD Dictated: 03/30/2021 3:44DT: 03/30/2021 3:51Job #: [id number]: Анна Braun MD NOTE: [facility] computer generated reports are not confirmed orauthenticated unless they are signed by the providerElectronically Authenticated and Edited by:GARETH MONTANA MD on 03/31/2021 12:30 AM EDT Name Value Range Interpretation Code Description Data Ema rce(s) Supporting Document(s) ID Date Data Source [id number] 03/30/2021 01:21:00 AM EDT [facility] Name Value Range Interpretation Code Description Data Ema rce(s) Supporting Document(s) SARS coronavirus 2 RNA [Presence] in Res piratory specimen by JUSTEN with probe detection NOT DETECTED [facility] This lab was reported by [facility]. ID Date Data Source [id number] 03/30/2021 09:28:37 AM EDT [facility] Name Value Range Interpretation Code Description Data Ema rce(s) Supporting Document(s) SPECIMEN DESCRIPTION [facility] COVID19 RESULT (NDET) [facility] THIS ASSAY AMPLIFIES AND DETECTSTHE TARG ET RNA USING REAL-TIME PCR.TESTING PERFORMED ON THE D[place] COMMENT [facility] UNDER AN EMERGENCY USE AUTHORIZATION(EUA ) FOR THE DETECTION AND/OR DIAGNOSISOF THE VIRUS THAT CAUSES COVID-19.NEGATIVE 2019_NCOV RT-PCR RESULTS DONOT PRECLUDE 2019_NCOV INFECTION ANDSHOULD NOT BE USED THE SOLE BASISFOR PATIENT MANAGEMENT DECISIONS. FIRST TEST [facility] EMPLOYED IN THCARE [facility] SYMPTOMATIC [facility] DATE OF SYMPT ONSET [facility] H[facility]ED [facility] [place] [facility] CONGREGATE CARE SET [facility] ID Date Data Source [id number] 03/29/2021 11:53:30 PM EDT [facility] [place] SPEC EXP DATE 1PATI ENT ABO/Rh A POSITIVEANTIBODY SCREEN NEGATIVETESTING SITE PERFORMED AT [address] [place], [place] [address]OOD BANK COMMENT BLOOD TYPE CONFIRMED. Name Value Range Interpretation Code Description Data Ema rce(s) Supporting Document(s) TYPE AND SCREEN [facility] PATIENT ABO/Rh A POSITIVE ID Date Data Source [id number] 03/29/2021 11:10:22 PM EDT [facility] Name Value Range Interpretation Code Description Data Ema rce(s) Supporting Document(s) TOTAL PROTEIN 7.0 g/dL (6.4-8.2) [facility] ALBUMIN 2.2 g/dL (3.2-4.5) L [facility] GLOBULIN 4.8 g/dL (2.7-4.3) H [facility] ALB/GLOB RATIO 0.5 RATIO [facility] BILIRUBIN,TOTAL 0.4 mg/dL (0.0-1.0) [facility] PLEASE NOTE:Total bilirubin results may be falselyelevated in patients taking Eltrombopag. BILIRUBIN,CONJUGATED 0.2 mg/dL (0.0-0.3) [facility] BILIRUBIN,UNCONJ. 0.2 mg/dL (0.0-0.7) [facility] ALKALINE PHOSPHATASE 177 U/L (45-117) H [facility] AST (SGOT) 85 U/L (11-39) H [facility] ALT (SGPT) 69 U/L (12-78) [facility] ID Date Data Source [id number] 03/29/2021 11:10:22 PM EDT [facility] Name Value Range Interpretation Code Description Data Ema rce(s) Supporting Document(s) TROPONIN I <0.05 ng/mL (<0.05) [facility] Less than 0.05: Myocardial injury unlike lyGreater than or equal to 0.05: Highly suggestive of myocardial injuryCorrelation with rise and/or fall ofserial troponins, clinical symptomsand ECG changes is necessary. ID Date Data Source [id number] 03/29/2021 11:10:22 PM EDT [facility] Name Value Range Interpretation Code Description Data Ema rce(s) Supporting Document(s) SODIUM 137 mmol/L (136-145) [facility] POTASSIUM 4.7 mmol/L (3.6-5.2) [facility] CHLORIDE 105 mmol/L (100-108) [facility] CO2 22 mmol/L (22-31) [facility] ANION GAP 10 mmol/L (7-16) [facility] UREA NITROGEN 39 mg/dL (7-24) H [facility] CREATININE 1.51 mg/dL (0.80-1.30) H [facility] BUN/CREAT RATIO 25.8 RATIO (10.0-20.0) H [facility] GLUCOSE 163 mg/dL (70-99) H [facility] CALCIUM 10.0 mg/dL (8.4-10.2) [facility] GFR 45 ml/min/1.73m2 (>59) L [facility] GFR ( AMER) 54 ml/min/1.73m2 (>59) L [facility] GFR INTERPRETATION [facility] --NORMAL KIDNEY FUNCTION OR MILD DISEASE - GFR >OR= 60CHRONIC KIDNEY DISEASE - GFR 15 - 59RENAL FAILURE - GFR <15 Est. GFR calculation based on the MDRDstudy equation, which assumes a steadystate for creatinine. Est. GFR should notbe used for medication dosing. ID Date Data Source [id number] 03/29/2021 10:52:36 PM EDT [facility] Name Value Range Interpretation Code Description Data Ema rce(s) Supporting Document(s) PT 11.6 s (9.2-11.9) [facility] PERFORMED AT [address] [place] [address] INR 1.11 [facility] SUGGESTED THERAPEUTIC RANGES USING INR F ORSTABILIZED ANTICOAGULATED PATIENTS:STANDARD DOSE THERAPY INR 2.0-3.0 DVT, PE, PREVENT DVT OR EMBOLISMHIGH DOSE THERAPY INR 2.5-3.5 PREVENT EMBOLISM FROM MECHANICAL HEART VALVE ID Date Data Source [id number] 03/29/2021 10:43:14 PM EDT [facility] Name Value Range Interpretation Code Description Data Ema rce(s) Supporting Document(s) WBC 3.5 10*3/uL (4.1-11.0) L [facility] [place] RBC 2.67 10*6/uL (4.60-6.10) L [facility] HGB 7.3 g/dL (13.5-18.0) L [facility] HCT 22.4 % (41.0-53.0) L [facility] MCV 83.9 fL (80.0-95.0) [facility] MCH 27.4 pg (27.0-32.0) [facility] MCHC 32.7 g/dL (32.0-36.0) [facility] RDW 16.6 % (10.5-14.5) H [facility] PLT 173 10*3/uL (150-450) [facility] MPV 9.1 fL (7.1-10.7) [facility] NEUT % 71.2 % (35.0-75.0) [facility] LYMPH % 8.1 % (16.0-52.0) L [facility] MONO % 12.1 % (0.0-8.0) H [facility] EOS % 6.5 % (0.0-5.0) H [facility] BASO % 2.1 % (0.0-4.0) [facility] NEUT # 2.5 10*3/uL (1.8-7.7) [facility] LYMPH # 0.3 10*3/uL (1.2-4.8) L [facility] MONO # 0.4 10*3/uL (0.0-0.8) [facility] Eosinophils [#/volume] in Blood by Automated count 0.2 10*3/uL (0.0-0 .5) [facility] BASO # 0.1 10*3/uL (0.0-0.2) [facility] ID Date Data Source [id number] 03/27/2021 01:51:59 PM EDT [facility] CT THORAX WITH CONTRAST [id number] RESUL TInterpreted by:Hilario Bautista, MDCT thorax.INDICATION: Hepatocellular [...] rce(s) Supporting Document(s) ID Date Data Source [id number] 03/20/2021 09:37:00 AM EDT [facility] ([facility]) Name Value Range Interpretation Code Description Data Ema rce(s) Supporting Document(s) Glucose [Presence] in Urine Laboratory test result [facility] ([facility]) ostomy bag Protein [Presence] in Urine by Test strip Laboratory test result [facility] ([facility]) ostomy bag Ua Leuko Laboratory test result [facility] ([facility]) ostomy bag Ua Nitrite Laboratory test result [facility] ([facility] ostomy bag Blood [Presence] in Urine by Visual Laboratory test result [facility] ([facility]) ostomy bag Ketones [Presence] in Urine by Test strip Laboratory test result [facility] ([facility]) ostomy bag Color of Urine Laboratory test result [facility] ([facility]) ostomy bag Clarity of Urine Laboratory test result [facility] ([facility]) ostomy bag Ua Specific [place] 1.010 1.003-1.030 [facility] NT ([facility]) ostomy bag pH of Urine by Test strip 7.0 5.0-7.5 [facility] ([facility]) ostomy bag Bilirubin.total [Presence] in Urine by Test strip Laboratory test res ult [facility] ([facility]) ostomy bag Urobilinogen [Mass/volume] in Urine by Test strip 0.2 E.U./dL 0.0-1.0 [facility] ([facility]) ostomy bag ID Date Data Source [id number] 03/15/2021 03:57:13 PM EDT [facility] Name Value Range Interpretation Code Description Data Ema rce(s) Supporting Document(s) Progress Note [facility] ZGARBb2wVeWGEiVp25/OOSodOYPvv8SaJQawQMx5WGglDKUcK9FkQRL2lI6tZCR9XSdQQeTuUlCaPWK3 lbm [file] AgICAgICAgICAgICAgICAgICAgICAgICAgICAgICAgICAgICAgICAgICAgICAgICAgICAgICAgDQogIC AgICAgICAgICAgICAgICAgICAgICAgICAgICAgICAg ICAgICAgICAgICAgICAgICAgICAgICAgICAgICAgICAgICAgICAgICAgICAgICAgICAgICAgICAgICAg ICAgICAgDQogICAgICAgICAgICAgICAgICAgICAgICAgICAgICAgICAgICAgICAgICAgICAgICAgICAg ICAgICAgICAgICAgICAgICAgICAgICAgICAgICAgIC AgICAgICAgICAgICAgICAgDQogICAgICAgICAgICAgICAgICAgICAgICAgICAgICAgICAgICAgICAgIC AgICAgICAgICAgICAgICAgICAgICAgICAgICAgICAgICAgICAgICAgICAgICAgICAgICAgICAgICAgDQ ogICAgICAgICAgICAgICAgICAgICAgICAgICAgICAg ICAgICAgICAgICAgICAgICAgICAgICAgICAgICAgICAgICAgICAgICAgICAgICAgICAgICAgICAgICAg ICAgICAgICAgDQogICAgICAgICAgICAgICAgICAgICAgICAgICAgICAgICAgICAgICAgICAgICAgICAg ICAgICAgICAgICAgICAgICAgICAgICAgICAgICAgIC AgICAgICAgICAgICAgICAgICAgDQogICAgICAgICAgICAgICAgICAgICAgICAgICAgICAgICAgICAgIC AgICAgICAgICAgICAgICAgICAgICAgICAgICAgICAgICAgICAgICAgICAgICAgICAgICAgICAgICAgIC AgDQogICAgICAgICAgICAgICAgICAgICAgICAgICAg ICAgICAgICAgICAgICAgICAgICAgICAgICAgICAgICAgICAgICAgICAgICAgICAgICAgICAgICAgICAg ICAgICAgICAgICAgDQogICAgICAgICAgICAgICAgICAgICAgICAgICAgICAgICAgICAgICAgICAgICAg ICAgICAgICAgICAgICAgICAgICAgICAgICAgICAgIC AgICAgICAgICAgICAgICAgICAgICAgDQogICAgICAgICAgICAgICAgICAgICAgICAgICAgICAgICAgIC AgICAgICAgICAgICAgICAgICAgICAgICAgICAgICAgICAgICAgICAgICAgICAgICAgICAgICAgICAgIC AzRJFnUCh5L4msOGGuNRYuHJ9pXXe5Eq0+DQoNCmVu SPI9ftQecZ7LCA1ni1DhBMwsXVOuk6MzYPz0BZ7WONKhCLvnVD7JUHpsbu1HDIKbCAShyNFBz4tsApYp HDM0UNHjKqgpOD3SHWMyH8clsrSyXJHnYDUHBC7WZfGrQ3SoqR92YBESUm0+RQyhdoTyKfdWShO0QXWx e3ZpBKn2QD9EBTRhNgnqp1EtKgYqEQKVWZqnUC5QAA J1RYSnNVFzQc5RSHLgR466rgEiOV6VCk8RMfVtKE2hqp4QKyMrYDWfSwoQOby9BGagBG0ZmYMiKQnJxk 9uveBkctQGi5MvwyJdjZJSTLFakMsznb7tA24dWFjgz2kkBBDHOXIrlKMsTK5wPW7eMDWiRGLqIgI0DG WCMA1TLBYzNGDdwIUoNRUkNDPPBB1ITWkhWII9WIAh nuMhaUZpZUywZY0QGYXpzyGfKLvsXVURWGe+Jd3BSC9cc7TeMOlqJGAvFQ8gwu5GVPvFKrFcV0D2mFLj K9Y5THwkBt9JLNXeDTOuOCqsXMUPSVnqHO4IST7ywxV3OE9PwLPnDVKuBUXwlGLnKHc2Z51ulKJpWLit VM8SKTH+Earl+Am6HJHZhZUWqNTVpTiPlRPFIFdJhV7 QcR4AHl3VzE0XeXH87uPsmvfDyIHjpJL7RNH1hDZXzIAMHGZ5UmWCwjR4kcnVnABFuFOSMYzNzU41hpC AdTUSwEJM5DLSlWn4MGTRjI0TtcrRafWjbznTdFOHfWXWSWD9ENHpkeoNrpTGusQgpXS42dWdfSA2BSy 0FZaTaKD2uvg4FxKRgNx2RIQGyUj8PEFVbNAVeNQTw TSH2XQIiCoJbHCmmPDXaSCPjEHU4CLQzOEEeXF1XWbXkKNEqKSnrYEugXSJjLKFrfq4UTQEpBZOkMMVb BrIfWSHkEKAcOFfjMGBmHKEyMDY3LAGtANLgRT5VRrTkCWJmXAKuZUEkGFXnTRBlca9MWWRcFKKpIjXv KOIiEFWnBBWwMIkvMIBdTZBrBvr8TNHpUDBxJD8YJd UhSLIqOQK8KaKePMPvUOUcqw4ZHEPjODOvXhk5HyQyHXAgEGJuPDsiANVfDVP2MxRvKJMrONSuJV8DCm PbYHJjOLO3QYCqQIYiIFItjw0AMPFfLFPpTNLgMQAaEXRdNFVvYKxwVAJjPHA4YVL9UENtKHYfIW5XNi RsKGTiUNU0CoWvBHWdVEKtgg1UGZEyEFZiHxk3LBPa EJRdAHWyBFmtFXIbSUP5RsWcLRLwGDYaQV0OGuPhSSEfAZeoSuNgRQCyRTJnhd2DNADyWKEnTxf6IbDs USEcBQPqEPdaXCNbOYU2CvQ8OYFmQKSdDB8LLzTqNQNoIUfyBsCeHYZwTYUchc2JOVXpBHCkTXAdNQJt DMAqYROxCOj6khSqwOTxJHp7OL8LK0ZulxXiKuKJGp 5Kn465QUBbSCTjCi3LR1cbRr8kSOTtYCOGJh1AGAu8UOwjKSIjEJFoHOVjG5CwTCBkW0XaElAbYPR9RB E2NDc+TXblZWC6WIHzCADjKNUgQLS0YAU5WRU5CYT4VHC8ESF0Sb3rXNSTZg5+DQpzdGFydHhyZWYNCj G4Tzf1DOheCCVJVi6C ID Date Data Source [id number] 03/12/2021 12:24:23 PM EDT [facility] Name Value Range Interpretation Code Description Data Ema rce(s) Supporting Document(s) POC GLUCOSE 76 mg/dL (70-99) [facility] NOTIFIED NURSEPERFORMED BY CLINICAL S TAFF ID Date Data Source [id number] 03/12/2021 12:18:21 PM EDT [facility] Name Value Range Interpretation Code Description Data Ema rce(s) Supporting Document(s) POC GLUCOSE 76 mg/dL (70-99) [facility] PERFORMED BY CLINICAL STAFF ID Date Data Source [id number] 03/12/2021 08:29:05 AM EDT [facility] Name Value Range Interpretation Code Description Data Ema rce(s) Supporting Document(s) SODIUM 142 mmol/L (136-145) [facility] POTASSIUM 3.9 mmol/L (3.6-5.2) [facility] CHLORIDE 112 mmol/L (100-108) H [facility] CO2 24 mmol/L (22-31) [facility] ANION GAP 6 mmol/L (7-16) L [facility] UREA NITROGEN 20 mg/dL (7-24) [facility] CREATININE 1.06 mg/dL (0.80-1.30) [facility] BUN/CREAT RATIO 18.9 RATIO (10.0-20.0) [facility] GLUCOSE 74 mg/dL (70-99) [facility] CALCIUM 9.2 mg/dL (8.4-10.2) [facility] GFR >60 ml/min/1.73m2 (>59) [facility] GFR ( AMER) >60 ml/min/1.73m2 (>59) [facility] GFR INTERPRETATION [facility] --NORMAL KIDNEY FUNCTION OR MILD DISEASE - GFR >OR= 60CHRONIC KIDNEY DISEASE - GFR 15 - 59RENAL FAILURE - GFR <15 Est. GFR calculation based on the MDRDstudy equation, which assumes a steadystate for creatinine. Est. GFR should notbe used for medication dosing. ID Date Data Source [id number] 03/12/2021 07:46:51 AM EDT [facility] Name Value Range Interpretation Code Description Data Ema rce(s) Supporting Document(s) WBC 3.4 10*3/uL (4.1-11.0) L [facility] [place] RBC 2.76 10*6/uL (4.60-6.10) L [facility] HGB 7.8 g/dL (13.5-18.0) L [facility] HCT 23.4 % (41.0-53.0) L [facility] MCV 84.9 fL (80.0-95.0) [facility] MCH 28.1 pg (27.0-32.0) [facility] MCHC 33.1 g/dL (32.0-36.0) [facility] RDW 16.0 % (10.5-14.5) H [facility] PLT 152 10*3/uL (150-450) [facility] MPV 8.2 fL (7.1-10.7) [facility] NEUT % 73.0 % (35.0-75.0) [facility] LYMPH % 6.1 % (16.0-52.0) L [facility] MONO % 13.2 % (0.0-8.0) H [facility] EOS % 5.8 % (0.0-5.0) H [facility] BASO % 1.9 % (0.0-4.0) [facility] NEUT # 2.5 10*3/uL (1.8-7.7) [facility] LYMPH # 0.2 10*3/uL (1.2-4.8) L [facility] MONO # 0.4 10*3/uL (0.0-0.8) [facility] Eosinophils [#/volume] in Blood by Automated count 0.2 10*3/uL (0.0-0 .5) [facility] BASO # 0.1 10*3/uL (0.0-0.2) [facility] ID Date Data Source [id number] 03/12/2021 05:39:53 AM EDT [facility] Name Value Range Interpretation Code Description Data Ema rce(s) Supporting Document(s) POC GLUCOSE 78 mg/dL (70-99) [facility] NOTIFIED NURSEPERFORMED BY CLINICAL S TAFF ID Date Data Source [id number] 03/11/2021 11:38:09 PM EDT [facility] Name Value Range Interpretation Code Description Data Ema rce(s) Supporting Document(s) POC GLUCOSE 84 mg/dL (70-99) [facility] NOTIFIED NURSEPERFORMED BY CLINICAL S TAFF ID Date Data Source [id number] 03/12/2021 10:21:00 AM EDT [facility] DATE OF EXAM: 03/11/2021[facility] MRI ABDOMEN WITH AND WITHOUT IV CONTRAST [...] greater than right. Professional interpretation performed at [facility] .End of diagnostic report for accession: [id number] Interpreted: Shahnaz Ramos MDTranscribed: 03/12/2021 10:01 AMSigned: 03/12/2021 10:21 AM Shahnaz Ramos MD [facility] # [id number] [facility] # [id number] Name Value Range Interpretation Code Description Data Ema rce(s) Supporting Document(s) ID Date Data Source [id number] 03/11/2021 06:13:30 PM EDT [facility] Name Value Range Interpretation Code Description Data Ema rce(s) Supporting Document(s) POC GLUCOSE 96 mg/dL (70-99) [facility] PERFORMED BY CLINICAL STAFF ID Date Data Source [id number] 03/12/2021 03:16:01 PM EDT [facility] Name Value Range Interpretation Code [...] INCREASES WITHINCREASING LEVELS. ID Date Data Source [id number] 03/11/2021 03:39:07 PM EDT [facility] Name Value Range Interpretation Code Description Data Ema rce(s) Supporting Document(s) APTT 29.6 s (22.0-34.3) [facility] ID Date Data Source [id number] 03/11/2021 03:39:07 PM EDT [facility] Name Value Range Interpretation Code Description Data Ema rce(s) Supporting Document(s) PT 12.2 s (9.2-11.9) H [facility] INR 1.17 [facility] SUGGESTED THERAPEUTIC RANGES USING INR F ORSTABILIZED ANTICOAGULATED PATIENTS:STANDARD DOSE THERAPY INR 2.0-3.0 DVT, PE, PREVENT DVT OR EMBOLISMHIGH DOSE THERAPY INR 2.5-3.5 PREVENT EMBOLISM FROM MECHANICAL HEART VALVE ID Date Data Source [id number] 03/11/2021 03:32:09 PM EDT [facility] [place] Name Value Range Interpretation Code Description Data Ema rce(s) Supporting Document(s) WBC 4.1 10*3/uL (4.1-11.0) [facility] [place] RBC 2.98 10*6/uL (4.60-6.10) L [facility] HGB 8.4 g/dL (13.5-18.0) L [facility] HCT 25.6 % (41.0-53.0) L [facility] PATIENT TRANSFUSED MCV 85.7 fL (80.0-95.0) [facility] MCH 28.2 pg (27.0-32.0) [facility] MCHC 32.9 g/dL (32.0-36.0) [facility] RDW 15.9 % (10.5-14.5) H [facility] PLT 177 10*3/uL (150-450) [facility] MPV 8.4 fL (7.1-10.7) [facility] ID Date Data Source [id number] 03/11/2021 12:40:27 PM EDT [facility] [place] Name Value Range Interpretation Code Description Data Ema rce(s) Supporting Document(s) POC GLUCOSE 99 mg/dL (70-99) [facility] PERFORMED BY CLINICAL STAFF ID Date Data Source [id number] 03/11/2021 07:56:19 AM EDT [facility] Name Value Range Interpretation Code Description Data Ema rce(s) Supporting Document(s) SODIUM 140 mmol/L (136-145) [facility] POTASSIUM 4.0 mmol/L (3.6-5.2) [facility] CHLORIDE 110 mmol/L (100-108) H [facility] CO2 25 mmol/L (22-31) [facility] ANION GAP 5 mmol/L (7-16) L [facility] UREA NITROGEN 17 mg/dL (7-24) [facility] CREATININE 0.98 mg/dL (0.80-1.30) [facility] BUN/CREAT RATIO 17.3 RATIO (10.0-20.0) [facility] GLUCOSE 80 mg/dL (70-99) [facility] CALCIUM 9.5 mg/dL (8.4-10.2) [facility] GFR >60 ml/min/1.73m2 (>59) [facility] GFR ( AMER) >60 ml/min/1.73m2 (>59) [facility] GFR INTERPRETATION [facility] --NORMAL KIDNEY FUNCTION OR MILD DISEASE - GFR >OR= 60CHRONIC KIDNEY DISEASE - GFR 15 - 59RENAL FAILURE - GFR <15 Est. GFR calculation based on the MDRDstudy equation, which assumes a steadystate for creatinine. Est. GFR should notbe used for medication dosing. ID Date Data Source [id number] 03/11/2021 07:38:12 AM EDT [facility] Name Value Range Interpretation Code Description Data Ema rce(s) Supporting Document(s) WBC 3.1 10*3/uL (4.1-11.0) L [facility] [place] RBC 2.46 10*6/uL (4.60-6.10) L [facility] HGB 6.9 g/dL (13.5-18.0) L [facility] RESULT(S) CALLED TO AND READ BACK MEGAN [place] ON 5SIR AT 0736 ON 03/11/21 BY [id number] HCT 20.7 % (41.0-53.0) L [facility] MCV 84.4 fL (80.0-95.0) [facility] MCH 27.9 pg (27.0-32.0) [facility] [place] [facility] MCHC 33.0 g/dL (32.0-36.0) [facility] [place] [facility] RDW 16.0 % (10.5-14.5) H [facility] [place] PLT 154 10*3/uL (150-450) [facility] [place] MPV 8.6 fL (7.1-10.7) [facility] ID Date Data Source [id number] 03/11/2021 05:49:03 AM EDT [facility] Name Value Range Interpretation Code Description Data Ema rce(s) Supporting Document(s) POC GLUCOSE 89 mg/dL (70-99) [facility] [place] NOTIFIED NURSEPERFORMED BY CLINICAL S TAF ID Date Data Source [id number] 03/11/2021 12:23:19 AM EDT [facility] [place] Name Value Range Interpretation Code Description Data Ema rce(s) Supporting Document(s) POC GLUCOSE 105 mg/dL (70-99) H [facility] [place] NOTIFIED NURSEPERFORMED BY CLINICAL S TAFF ID Date Data Source [id number] 03/10/2021 04:00:00 PM [facility]T [facility] Name Value Range Interpretation Code Description Data Ema rce(s) Supporting Document(s) SARS coronavirus 2 RNA [Presence] in Res piratory specimen by JUSTEN with probe detection NOT DETECTED [facility] This lab was reported by [facility]. ID Date Data Source [id number] 03/11/2021 01:47:06 PM EDT [facility] [place] Name Value Range Interpretation Code Description Data Ema rce(s) Supporting Document(s) SPECIMEN DESCRIPTION [facility] COVID 19 RESULT (NDET) [facility] [place] NEGATIVE COVID-19 RESULTS DONOT PRECLUDE COVID-2019 INFECTION ANDSHOULD NOT BE USED THE SOLE BASISFOR PATIENT MANAGEMENT DECISIONS. COMMENT [facility] [place] THE [place] FDA HAS MADE THIS TEST AVAILABL EUNDER AN EMERGENCY USE AUTHORIZATION(EUA) FOR THE DETECTION AND/OR DIAGNOSISOF THE VIRUS THAT CAUSES COVID-19.THIS ASSAY AMPLIFIES AND DETECTS [employer] USING LENS MAKER- MEDIATEDAMPLIFICATIONTESTING PERFORMED ON [employer] FIRST TEST [facility] SYMPTOMATIC [facility] [place] DATE OF SYMPT ONSET [facility] HOSPITALIZED [facility] [place] ICU [facility] CONGREGATE CARE SET [facility] ID Date Data Source [id number] 03/12/2021 12:38:20 AM EDT [facility] PATIENT ABO/Rh A POSITIVEANT IBODY SCREEN NEGATIVESPEC EXP DATE 03/13/2021TESTING SITE PERFORMED AT [address] [place], [place] [address]BLOOD BANK COMMENT BLOOD TYPE CONFIRMED.UNIT NUMBER [id number] COMPONENT TYPE LEUKOPOOR RED CELLSUNIT DIVISION 00STATUS OF UNIT TRANSFUSEDUNIT TAG COMMENT EMERGENCY RELEASETRANSFUSION STATUS OK TO TRANSFUSECROSSMATCH RESULT COMPATIBLEUNIT NUMBER [id number] COMPONENT TYPE LEUKOPOOR RED CELLSUNIT DIVISION 00STATUS OF UNIT TRANSFUSEDTRANSFUSION STATUS OK TO TRANSFUSECROSSMATCH RESULT COMPATIBLE Name Value Range Interpretation Code Description Data Ema rce(s) Supporting Document(s) ID Date Data Source [id number] 03/10/2021 04:51:00 PM EDT [facility] [...] exclude hepatocellular carcinoma. Professional interpretation performed at [facility] .End of diagnostic report for accession: [id number] Interpreted: Shahnaz Ramos MDTranscribed: 03/10/2021 04:36 PMSigned: 03/10/2021 04:51 PM Shahnaz Ramos MD [facility] # [id number] BILL # [id number] Name Value Range Interpretation Code Description Data Ema rce(s) Supporting Document(s) ID Date Data Source [id number] 03/10/2021 02:00:09 PM EDT [facility] Name Value Range Interpretation Code Description Data Ema rce(s) Supporting Document(s) SODIUM 137 mmol/L (136-145) [facility] POTASSIUM 4.2 mmol/L (3.6-5.2) [facility] CHLORIDE 107 mmol/L (100-108) [facility] CO2 23 mmol/L (22-31) [facility] ANION GAP 7 mmol/L (7-16) [facility] UREA NITROGEN 20 mg/dL (7-24) [facility] CREATININE 1.15 mg/dL (0.80-1.30) [facility] BUN/CREAT RATIO 17.4 RATIO (10.0-20.0) [facility] GLUCOSE 198 mg/dL (70-99) H [facility] CALCIUM 9.7 mg/dL (8.4-10.2) [facility] GFR >60 ml/min/1.73m2 (>59) [facility] GFR ( AMER) >60 ml/min/1.73m2 (>59) [facility] GFR INTERPRETATION [facility] --NORMAL KIDNEY FUNCTION OR MILD DISEASE - GFR >OR= 60CHRONIC KIDNEY DISEASE - GFR 15 - 59RENAL FAILURE - GFR <15 Est. GFR calculation based on the MDRDstudy equation, which assumes a steadystate for creatinine. Est. GFR should notbe used for medication dosing. ID Date Data Source [id number] 03/10/2021 02:00:09 PM EDT [facility] Name Value Range Interpretation Code Description Data Ema rce(s) Supporting Document(s) TOTAL PROTEIN 6.4 g/dL (6.4-8.2) [facility] ALBUMIN 2.1 g/dL (3.2-4.5) L [facility] GLOBULIN 4.3 g/dL (2.7-4.3) [facility] ALB/GLOB RATIO 0.5 RATIO [facility] BILIRUBIN,TOTAL 0.6 mg/dL (0.0-1.0) [facility] PLEASE NOTE:Total bilirubin results may be falselyelevated in patients taking Eltrombopag. BILIRUBIN,CONJUGATED 0.3 mg/dL (0.0-0.3) [facility] BILIRUBIN,UNCONJ. 0.3 mg/dL (0.0-0.7) [facility] ALKALINE PHOSPHATASE 150 U/L (45-117) H [facility] AST (SGOT) 67 U/L (11-39) H [facility] ALT (SGPT) 59 U/L (12-78) [facility] ID Date Data Source [id number] 03/10/2021 01:44:30 PM EDT [facility] Name Value Range Interpretation Code Description Data Ema rce(s) Supporting Document(s) PT 12.2 s (9.2-11.9) H [facility] [place] INR 1.17 [facility] [place] SUGGESTED THERAPEUTIC RANGES USING INR F ORSTABILIZED ANTICOAGULATED PATIENTS:STANDARD DOSE THERAPY INR 2.0-3.0 DVT, PE, PREVENT DVT OR EMBOLISMHIGH DOSE THERAPY INR 2.5-3.5 PREVENT EMBOLISM FROM MECHANICAL HEART VALVE ID Date Data Source [id number] 03/10/2021 01:33:49 PM EDT [facility] Name Value Range Interpretation Code Description Data Ema rce(s) Supporting Document(s) WBC 4.1 10*3/uL (4.1-11.0) [facility] RBC 2.70 10*6/uL (4.60-6.10) L [facility] HGB 7.3 g/dL (13.5-18.0) L [facility] HCT 23.1 % (41.0-53.0) L [facility] MCV 85.4 fL (80.0-95.0) [facility] MCH 27.1 pg (27.0-32.0) [facility] MCHC 31.8 g/dL (32.0-36.0) L [facility] RDW 16.6 % (10.5-14.5) [facility] PLT 164 10*3/uL (150-450) [facility] MPV 8.7 fL (7.1-10.7) [facility] NEUT % 73.6 % (35.0-75.0) [facility] LYMPH % 7.3 % (16.0-52.0) L [facility] MONO % 13.3 % (0.0-8.0) [facility] EOS % 4.7 % (0.0-5.0) [facility] BASO % 1.1 % (0.0-4.0) [facility] NEUT # 3.0 10*3/uL (1.8-7.7) [facility] LYMPH # 0.3 10*3/uL (1.2-4.8) L [facility] MONO # 0.5 10*3/uL (0.0-0.8) [facility] Eosinophils [#/volume] in Blood by Automated count 0.2 10*3/uL (0.0-0 .5) [facility] BASO # 0.0 10*3/uL (0.0-0.2) [facility] ID Date Data Source [id number] 03/04/2021 08:31:14 PM EDT [facility] Name Value Range Interpretation Code Description Data Ema rce(s) Supporting Document(s) Progress Note [facility] OTVFDq6cWgVDYjUp73/NNDluBMYil7AkSLpbQZc4HBcfRNMlO4LlMRB1bB2gIPF3NKeNYcWxIeVwYOS1 lbm [file] ICAgICAgICAgICAgICAgICAgICAgICAgICAgICAgIC LtBKZlANMmYTChMKRsPJSaYFLuTBOzPUEsDQKmVRWuTHGuMYVmMMKeYEXrATElMBEcJWQsMU3BPNQxPU AgICAgICAgICAgICAgICAgICAgICAgICAgICAgICAgICAgICAgICAgICAgICAgICAgICAgICAgICAgIC AgICAgICAgICAgICAgICAgICAgICAgICAgICAgICAg ZGVjZY1YFIVyTSCcOFJtVPCmEEBwIJPpLGDmPXRuIQFoMIWtNLVnVMSbQPAkQUEoXGQkZNMoVYTtIDIk AOSwKOXkUJBmOGQiEPReONPoPDSiIASlBKCaFPFvIVSrWFBoUOJmQZJvSPYdSC5GNCSsNZXhAIRtTTRe ICAgICAgICAgICAgICAgICAgICAgICAgICAgICAgIC ApDXEcYTBiDFFtIJObVFZwGXAjLOZzPCJjZXKbHIGrYSQuJZGfRIHcGFEkKCOmGTItBFIbCYPrSX2BTS AgICAgICAgICAgICAgICAgICAgICAgICAgICAgICAgICAgICAgICAgICAgICAgICAgICAgICAgICAgIC AgICAgICAgICAgICAgICAgICAgICAgICAgICAgICAg FDUoLPEhNA9QHRHeSHWaVQSdCBKlXTXjMITqSMSvMZMlMIEzPRDuSYMjHHVrNBLwZAMaVLZtKKEtRFXz GHHqVEGjVUWcTRQbULCcQTUeFGHjJEJeXGNwXMAoKWFpKAXhSJTtKAOaECGhKUFcLY3YXWPpQJWzVXFs ICAgICAgICAgICAgICAgICAgICAgICAgICAgICAgIC AgICAgICAgICAgICAgICAgICAgICAgICAgICAgICAgICAgICAgICAgICAgICAgICAgICAgICAgICAgIA 0KICAgICAgICAgICAgICAgICAgICAgICAgICAgICAgICAgICAgICAgICAgICAgICAgICAgICAgICAgIC AgICAgICAgICAgICAgICAgICAgICAgICAgICAgICAg SCOnWTYnRMQlBF2GFAXkRXQiNWSmZAOeGSSgMPCnXOFnBLOiJFRgATDpVWInBYYdBSRjHYRvWSNyFUJf XWKnVPRlJCZrRHHmKSAnGHPuADHkHPGwARWgQSZcTREjSKKgWNWkEFIrTOJfSZIwWBGlFG4TLF88fONq i6H7DPOoUI9yxbm/Fh4VXRubuzEmsOEdPC4QObPfXJ 1etc8ROxBrGN9jcn4YOFbEGjPqE9J1jHKoPHBkNOXMExRlG17eQZmrEt63TLsiKOFbEgTkZWk7Cu7JJk EkO3hlSGKeBcU3DMBiGjKdYUzdBO8Hq2GjaFIfBKd+Pw7PLR2cn0RpDCphTTSgHS9yfl3XCCmQGzKxF7 YevbA9FEOvDXDzTk5VLGWdAKRcqQSjUGKxVCXGTaTy T0AflW51FQOCLx3+AUqsmeIkBppXKcLsNTRpq4VfTXr6RZ3PIRBoHKu5dTGrYPQzP5Rpj0UaQb80URCl OwxuEaLynPhaA8N8eXmmGQ0kDWFyRV3yRL5nRACdLDHgOjIpRMZQIX8CIECsAGAizEHuHKToJDZYQE2E NAqoQZQ8LDApzoLymGUfRPygRU2VDNYsquYcEGkhYB BSDQo+Ws3OMW8mw5QgRZeiEYLcVL2abd8DXGnTHzDxT4P1sMWxU8B6FYhhAm2GGGUkXRCkKTduEPKAOV dlDG3NOL8hviC1NX0YvQXrGTYhHRVapBRoZZy2L28uwMJpTNbkEQ7LHBN+Earl+Hu5OZWTwNEWuNGZgHp EhBOKNWgBeW0FaO9SLc3PhP0SdKM58oZhifwSuPAfl WD9BIP2jGHVzWFUSDD7NaLKzjZ0xjjAeIAEqRZYMDyVwE87tdTYjIMOuKRG8MREsNz6AVSAiO8DkfrZq wDxwahShVYPwXEKCIF1EBXxovuUtqJEepUhsQF55fTimAU3XNz0ETuBnGO4psm3PrYOkIr2WCXCbGp4O BDHuFHEoNUEcEAQ0CNHjTqKrJCxpYIWrIRInODZ3XJ YiZNMhBE5FDqEePCGpXPQ0JlShMPUtCFAexi0MUJNyUPQtWLBlWFIlYJDbBLPpDPlnIONhSAJtVXW0SD TzRKHxEK7BYnBeVTYqHIQ0FFhnNZTuGUSwai4FRFRkHKRbQTr9EGHnITSrKURzHWzcGGKbDRHoLXJyJB FiQIIhBF6ODaDsOKLkMZAhLDEeFNMtELFsnc1DRRSj PMRiGoA6BvCqZITwWTUjPGjwJCAeBDB6VqU0YGWhZTYaJE2RFsIvPGBlXZT5WLEqKTLvGDSpcc0GRWHo XLQqXVEhYmTmJGYaMJOjJCnjLUAcHBO6CWh8XEAnGHCuMB8GZnWrAXNiJTPvECLjFRPvQGTnka4XAFIu XMWsTnYfVgSbHOTlTCGsTXasNMNcGOK9TgCuSPApJC WvBX9JCpZhZNYzLKQ5QKwjUMTxFXRalk5OCOLmSOXbLeT7WPNeTISjQLAcDYupNSRyCKI8BeW9JPNyBE UhDG4AUgSlKDBbUAk2XDalNHXhIICxcy3IPSOvJAPwOJj4SzPmEEQcUAVdQQx2umIriSZqYId9RL3UN8 XdnmCjJeDKUl6Ns627IRKdLDIqEl0BI8gqJo8kFTVh TGRSBn9ACQl4QdChFRE4A8O9LgLsRZDfIGRuMzFqWnTtEYAmIEItZGZ+IDwyZWUwZDQzZThiNTIwNjA5 BIQtIyVuLSBiCuCeVBV8HL7pTIWSPu3+FZfkiELfuApqDEYLCkP2QCo0QCysVTQJKm3W ID Date Data Source [id number] 03/04/2021 03:34:49 PM EDT [facility] Name Value Range Interpretation Code Description Data Ema rce(s) Supporting Document(s) Progress Note [facility] BNPLFh4tEhOHQdHs34/FGKmxAIItv8LuHHpfBHa1CBkdTFDxX3NhLOE5iD9bWJH1ZTpJXuIsMpEfZTA4 lbm [file] ICAgICAgICAgICAgICAgICAgICAgICAgICAgICAgIC AgICAgICAgICAgICAgICAgDQogICAgICAgICAgICAgICAgICAgICAgICAgICAgICAgICAgICAgICAgIC AgICAgICAgICAgICAgICAgICAgICAgICAgICAgICAgICAgICAgICAgICAgICAgICAgICAgICAgICAgDQ ogICAgICAgICAgICAgICAgICAgICAgICAgICAgICAg ICAgICAgICAgICAgICAgICAgICAgICAgICAgICAgICAgICAgICAgICAgICAgICAgICAgICAgICAgICAg ICAgICAgICAgDQogICAgICAgICAgICAgICAgICAgICAgICAgICAgICAgICAgICAgICAgICAgICAgICAg ICAgICAgICAgICAgICAgICAgICAgICAgICAgICAgIC AgICAgICAgICAgICAgICAgICAgDQogICAgICAgICAgICAgICAgICAgICAgICAgICAgICAgICAgICAgIC AgICAgICAgICAgICAgICAgICAgICAgICAgICAgICAgICAgICAgICAgICAgICAgICAgICAgICAgICAgIC AgDQogICAgICAgICAgICAgICAgICAgICAgICAgICAg ICAgICAgICAgICAgICAgICAgICAgICAgICAgICAgICAgICAgICAgICAgICAgICAgICAgICAgICAgICAg ICAgICAgICAgICAgDQogICAgICAgICAgICAgICAgICAgICAgICAgICAgICAgICAgICAgICAgICAgICAg ICAgICAgICAgICAgICAgICAgICAgICAgICAgICAgIC AgICAgICAgICAgICAgICAgICAgICAgDQogICAgICAgICAgICAgICAgICAgICAgICAgICAgICAgICAgIC AgICAgICAgICAgICAgICAgICAgICAgICAgICAgICAgICAgICAgICAgICAgICAgICAgICAgICAgICAgIC AgICAgDQogICAgICAgICAgICAgICAgICAgICAgICAg ICAgICAgICAgICAgICAgICAgICAgICAgICAgICAgICAgICAgICAgICAgICAgICAgICAgICAgICAgICAg ICAgICAgICAgICAgICAgDQogICAgICAgICAgICAgICAgICAgICAgICAgICAgICAgICAgICAgICAgICAg ICAgICAgICAgICAgICAgICAgICAgICAgICAgICAgIC LaBGXvMLMtJMTiTUMjXJBhTQKhZVXgMLGqNTw9C9ntLAMxRRTmUB4tDQm2As9+IGmYWbGfZMI0dsNvfC 8BFP5dj5SvHBdnIJWjr3IdZTk5ZN5GCVNeOSpqLY0ZUTkcrx5XYJYmBYYlnQVMj2poAzKjLLB9ITHkRv yoCE9JDXDyS9lpnnUsUTXhLUWKHQbwWZXHUEntEEZF OLGnXMNdYpVdZIixOR7Jz2ZalCH1MAs+Ry8YHX9qn8JnSImiTIWfBV7qhw4MOYvWRcHlO4VeocQ5AQY5 AMSwZs0WAZOnUADpcPCmKHKbXPKUAbAxI1OxsO74TOTPXv4+DErxufQfNoqLRkR8LKSdc8UmMKl1RJ5V OIYdEYo0uBEwAZHtU6Qmi6AbJg99UZBmYlnhA5Y2x7 HaxDIaVFbmXvB8JZLmqBlbRZBzAPTlSVKtSK5xONStNOJxKgHeSLOLMQ6GMCWkIWYcqQOrOOMbONEXXK 8ZFFmjYAG0LCQprpStpTEcJRguQD9CNPHghgMgRcexBYONYOh+Ox9WXA3ob2PwGQeqARCwBZ4ndu2UDG zDEcKiJ7D4kMRtT7V7SWjnVa0HNDAqUQLnDnZdBKCQ CBwkLE6JKD4tcxI2VO1RtRPyDDYlRREogOKhXGy6Q82hcJYyPRvyCX7ADRD+Earl+Kz5JFPDcIYWbDQIh AvHrSMJCEnWbK4GcN9OQz8SgY3VuXW01fIkivbHeXDauGS1SNH2iYKEnOTXMXP0KrFGrjE3gamAxGGCi EWODHzWzW24gyGDxVBNpREZ3KECxAd2BTKBiY0Mvuz PkiQeqbxOaYMRkPCAFML6NFEnbfjOfwGVitIgmYP42oNvdUW7VCw7MSxLyNH1ltz0RfVKpKq2WAPIiME 1EHWAtHRXcPPWpJFE9OLRkVjUuYBcaLCHuDSRhNBF8RZGiVKIuPU1DFiNdSGKvAxgnCQzsOGGyAKXqvo 0JXOFtBYQbINbmQLYzHPErITHdGXadNEUmNHVbNAX3 JSXdNWYiJX4EAiNoDEEmGLA4VDzeMEYoBZUfdn8KAZSfSXOjGUHyZMPhYXRtAPVcAAneOCBiICG2SJT5 IMPxRUTlEM5YEaHhJRSlRFX2WdIiEDNzYDCqve1AJKChFDRpCKz1NXXcIBFaXWRoKXblUDEuPZOoATO1 FSXoBIJbQM6QAxDrMBAdDOI1HVGzSSWcOQMkxs3OGO KgMAVqCawaMXBdVZHiZZOrCFrjZTSgHWEaTxY9BXHaZZTaVG1TOnJuTLSnAHI0IxVjCQUzKKHpxl1DQI XlCMZaAOD7TGKwZWPdJGIkBHaiIPOgWJB2RJV8FZVtYJZvGP0QKtKpMYInYOCbZTktYAGvHHIzjd9FSQ FzBDInKNV8VnTbTQHrYAGzDZgvDFOdTSW6FHS4DLCi LJZpPR6HMkZtVSFtUgqzBYRrOOAlEDPkfi4IIXYtOTXjWzZ5MVGvLXQzAZQiFExcUUXkHJN1KiIhDUNd YSEwPR6HFjQmHYFlZsh1GMbzXADeZIAuqg8TGTCiPHVuBImuGFWoZDNzXDDwUJawHBJpKMO7HCu3EZRl BYOjTM3DKpQsZDPyOhypTfdoFXZzGAPvty4UJPLbYI LaBHJ6JHLaMONxZVQgDOneLQQkCJFxLYVfTTMjJTKqBC1YGyYtUSVbDtLpSOMfOJQoCDXnpe9WROAyDU SkWRQ7SlWcWVQpFZReYNa4zjYipUMeTZn4RX9SZ2BzmuWzIyVIPj7Up250KPTcZIWpOs5FI8mqAz5mJF BwJNQYVz6OMGa3DQVuMQOwYlcqGFHjHVF0OVQ0EyH8 NaOiBCrjSpm3ExV+RIksRfJlCXIwS4R2LgNgItijFDW2DdO7BgF2FYDzRsbpGP7jLJUVXj0+DQpzdGFy sGyiZDDINaAmVKFwKPdbBBGKOc9T ID Date Data Source [id number] 02/28/2021 12:47:10 PM EDT [facility] Name Value Range Interpretation Code Description Data Ema rce(s) Supporting Document(s) Progress Note [facility] FGKQRz9qLhNCByQs44/ZHBlkKUUpa9QyUEmeGUe1BBgoBNSaG5VqDYT9aV4zHTC5LTiLJfIwJiQeWZEl lbm [file] CiAgICAgICAgICAgICAgICAgICAgICAgICAgICAgICAgICAgICAgICAgICAgICAgICAgICAgICAgICAg ICAgICAgICAgICAgICAgICAgICAgICAgICAgICAgIC AgICAgICAgICANCiAgICAgICAgICAgICAgICAgICAgICAgICAgICAgICAgICAgICAgICAgICAgICAgIC AgICAgICAgICAgICAgICAgICAgICAgICAgICAgICAgICAgICAgICAgICAgICAgICAgICANCiAgICAgIC AgICAgICAgICAgICAgICAgICAgICAgICAgICAgICAg ICAgICAgICAgICAgICAgICAgICAgICAgICAgICAgICAgICAgICAgICAgICAgICAgICAgICAgICAgICAg ICANCiAgICAgICAgICAgICAgICAgICAgICAgICAgICAgICAgICAgICAgICAgICAgICAgICAgICAgICAg ICAgICAgICAgICAgICAgICAgICAgICAgICAgICAgIC AgICAgICAgICAgICANCiAgICAgICAgICAgICAgICAgICAgICAgICAgICAgICAgICAgICAgICAgICAgIC AgICAgICAgICAgICAgICAgICAgICAgICAgICAgICAgICAgICAgICAgICAgICAgICAgICAgICANCiAgIC AgICAgICAgICAgICAgICAgICAgICAgICAgICAgICAg ICAgICAgICAgICAgICAgICAgICAgICAgICAgICAgICAgICAgICAgICAgICAgICAgICAgICAgICAgICAg ICAgICANCiAgICAgICAgICAgICAgICAgICAgICAgICAgICAgICAgICAgICAgICAgICAgICAgICAgICAg ICAgICAgICAgICAgICAgICAgICAgICAgICAgICAgIC AgICAgICAgICAgICAgICANCiAgICAgICAgICAgICAgICAgICAgICAgICAgICAgICAgICAgICAgICAgIC AgICAgICAgICAgICAgICAgICAgICAgICAgICAgICAgICAgICAgICAgICAgICAgICAgICAgICAgICANCi AgICAgICAgICAgICAgICAgICAgICAgICAgICAgICAg ICAgICAgICAgICAgICAgICAgICAgICAgICAgICAgICAgICAgICAgICAgICAgICAgICAgICAgICAgICAg ICAgICAgICANCiAgICAgICAgICAgICAgICAgICAgICAgICAgICAgICAgICAgICAgICAgICAgICAgICAg ICAgICAgICAgICAgICAgICAgICAgICAgICAgICAgIC AgICAgICAgICAgICAgICAgICANCjw/tBLcX4fqgFByzvT5K9hqEh8HQv9EVB7la1HeHRIxNOkjmeRaDt sTUbVkCVVfIyyBYfg4CJpwXT3UmBYwV7LsG6PcYSkwVX6KIUCvFUZprVZiRNDaXQRpEmH4HAGqMYckLC 9LaWRzIFsgNSAwIFIgNyAwIFIgOSAwIFIgMTEgMCBS RADhENAfQxWxPMuvMZ6Ve9GxdJG2HIe+Rw9VLU4rt7GtVHuvZdAzEC8oez1UQTrWSqVsR4YbpnH4GFK6 QGMzFj8MQMVtASNzyDPrVVKxKLVQMdCaW2EraI27AFXUZu9+QVvrknBoJxgXFoP8XVUoo0CwNDr1ZZ0E YJZfFJs0hYIkXQGbC5Dtc0CfDw73NMUaExrpQbefvN ZWPLccWHxeukusWS1oCVTvJR0zJJ3bDHFbRJKoXqOhNQFOWQ4BKCCsOIConUHoNSFdQMBIER0MUIqjRL X4FIYeweBlkHTzWKubGL3FIUUochXbKeqoLHPSSYk+Ps3MGB4iw3TxEHhfFPPnKJ6ljv2QJBrRXfLeC1 U9cKYqA3B5EXyqHr1FDBUwHYCaLpWuQVJQSGxfNU1J DI2ahjU4HY5FtVGpWUXnBYOrmUCcSJg2D82vgRSiNRncVY1QYEN+Earl+Mu9TQDDqYHFxOZWrOaWeOQHS XwJkA1ZyE8YLo1QfS1YzPX15xVubbtVuHKbiLH1CXC2vNVFzGBVOQB7YfPIjrI7toxSdGmRpHVYJRqSz O59tbEMgCQFbELR8VJVsNv3VGXOpQ9CcuzSafIpgbl EcKIMfWQNMWG9PVZqaslSvnBYbuOpfEE99tFclER9JKj4TBeDnTY8lgo2HeWQbPi0MXMZnJO0TVLXtPK JiJUFiKCN3TDUxYxYmWJwcZWNmOMCfOKF8LBBrWAKgQW4KLdAtHJIuVnjiUXufKEZrHJJgwm5DHNXhSA ZlURboAuOtEXTwEKEfXYnySFSmKFRwLGI5LNOsFMHc LQ7ESuQjHYXcSHT7KpBcZQWxRIQtrz9FVDTpGBJsVQJbCsBoKGMtHWFbYWscPGWoGIQ6POFqKXHuLOZo TS4TKqFdLHNuNLitTsLzGIRkUWHfkj6JFNImBBDdGXt2IuByUDMtNOIzODaeZBKfTLTbAEJ7DGVoGJHw PL1HHfZvKNTxIQB8KibkWYPqYNSpgf5DRABkAULoJb s3MKQlCULpNDYsPLiaCGQmFPOeAGBaDUOgHAWjYF6XXzGcIYVzHCEzOcyrENShBYFeuc9IUVWzZKIaXW b9MpMbVPOgCPQoJMuhTCMvAAB6UPu1GWKhQVAqON5NPsGqATAyYUMjCdhwJTLoMGGhmr6XYMIyGIPvOd LzCiMkQDWxSDSmDIojIJQiOSO0WTJ8FFBzWVMpPD6C UgFoPUTsZAC7GUAjVGTyXQHgmt4ITQJpEDYmGXD8UwNhPBTmJSYkJRmmCKMdPLK9AQqlUQLwEUGrRN2O YmEwWVFwAbt4QNZnUPFpCVWdkv6EUYTjXCUlFBojYJQqWRNaUQTjMAoeRBQxVJL8ZUp5LACcLDBkIL1Q MkRcPVQjOsi2VjpaMWJnIQUewd2RWENnRBEvLCt9DU HjKCJxQRLpLIsrXRJzJKLpZQNfDDXgQHBbXP9THqViWYCmFeYtDaGjCHLzYDRseh4BbSJzfSetft8VFH vEUw4XkJkrXESdIQtnTq3zwLZlFUFvKTZJCf2JdjVdKNFpLZPPLOxaBKBsHLTvQAR7KsXoSHH5MTJ9GJ a7Z0U7QGTkRLM9MKn1X5GkXmV9OMN8ZGDgBRImNGk5 BWUsOjjfFqYwETL2NegfJWo3BoV+EN8bKMc+Xe7Bn1FyedS9krHsWXmiASLeOO5MEXFUL6UMMt== ID Date Data Source [id number] 02/28/2021 01:25:31 PM [facility] Name Value Range Interpretation Code Description Data Ema rce(s) Supporting Document(s) Hepatitis A virus IgM Ab [Presence[facility] No acute infection, susceptible to infec tion. Hepatitis B virus core IgM Ab [Presence] in Serum or Plasma by Immunoassay Non Reactive [facility] IgM antibodies to HBc were not detected, does not exclude the possibility of exposure to HBV. Hepatitis C virus Ab [Presence] in Serum or Plasma by Immuno assay Non Reactive [facility] No serological evidence of active infect ion. If recent exposure is suspected, test for HCV RNA. Hepatitis B virus surface Ag [Presence] in Serum or Plasma b y Immunoassay Non Reactive [facility] No active or previous infection. Suscept ible to infection. ID Date Data Source [id number] 02/28/2021 12:39:41 PM EDT [facility] Name Value Range Interpretation Code Description Data Ema rce(s) Supporting Document(s) Leukocytes [#/volume] in Blood by Automated count 4.0 10*3/uL 4-10 [facility] Erythrocytes [#/volume] in Blood by Automated count 2.97 10*6/uL 4.6- 6.1 L [facility] Hemoglobin [Mass/volume] in Blood 8.4 g/dL 13.5-18 L [facility] Hematocrit [Volume Fraction] of Blood by Automated count 25.4 % 4 1-53 L [facility] Erythrocyte mean corpuscular volume [Entitic volume] by Auto mated count 85.4 fL 80-96 [facility] Erythrocyte mean corpuscular hemoglobin [Entitic mass] by Automated count 28.3 pg 27-33 [facility] Erythrocyte mean corpuscular hemoglobin concentration [Mass/volume] by Automated count 33.1 g/dL 32.0-36.0 [facility] distribution width [Ratio] by Automated count 16.7 % 11.5-14.5 H [facility] Platelets [#/volume] in Blood by Automated count 190 10*3/uL 150-400 [facility] Differential cell count method - Blood [facility] Neutrophils/100 leukocytes in Blood by Automated count 74 % [facility] Lymphocytes/100 leukocytes in Blood by Automated count 6 % [facility] Monocytes/100 leukocytes in Blood by Automated count 12 % [facility] Eosinophils/100 leukocytes in Blood by Automated count 6 % [facility] Basophils/100 leukocytes in Blood by Automated count 2 % [facility] Neutrophils [#/volume] in Blood by Automated count 3.00 10*3/uL 1.8-7 .0 [facility] Lymphocytes [#/volume] in Blood by Automated count 0.25 10*3/uL 1.2-4 .0 L [facility] Monocytes [#/volume] in Blood by Automated count 0.46 10*3/uL 0-0.8 [facility] Eosinophils [#/volume] in Blood by Automated count 0.26 10*3/uL 0-0.5 [facility] Basophils [#/volume] in Blood by Automated count 0.06 10*3/uL 0-0.2 [facility] Nucleated erythrocytes/100 leukocytes [Ratio] in Blood by Automated count 0 /100{WBCs} 0-0 [facility] ID Date Data Source [id number] 02/28/2021 12:59:20 PM [facility] Value Range Interpretation Code Description Data Ema rce(s) Supporting Document(s) Prothrombin time (PT) 14.6 s 11.6-14.0 H [facility] INR in Platelet poor plasma by Coagulation assay 1.18 [facility] Routine intensity oral anticoagulation I NR is typically 2.0-3.0. Target INR must be clinically individualized. ID Date Data Source [id number] 02/28/2021 12:59:20 PM [facility] Value Range Interpretation Code Description Data Ema rce(s) Supporting Document(s) aPTT in Platelet poor plasma by Coagulation assay 33.5 s 24.0-33. 0 H [facility] ID Date Data Source [id number] 02/28/2021 01:24:10 PM [facility] Value Range Interpretation Code Description Data Ema rce(s) Supporting Document(s) Nwyib-1-Icxwvxttotm [Mass/volume] in Serum or Plasma 45 ng/mL <9 H [facility] ID Date Data Source [id number] 02/28/2021 01:24:10 PM [facility] Value Range Interpretation Code Description Data Ema rce(s) Supporting Document(s) Albumin [Mass/volume] in Serum or Plasma by Bromocresol green (BCG) dye binding method 3.4 g/dL 3.5-5.2 [facility] Bilirubin.total [Mass/volume] in Serum or Plasma 0.7 mg/dL <1.2 [facility] Calcium [Mass/volume] in Serum or Plasma 10.6 mg/dL 8.8-10.2 H [facility] Chloride [Moles/volume] in Serum or Plasma 97 mmol/L 98-107 L [facility] Creatinine [Mass/volume] in Serum or Plasma 0.94 mg/dL 0.70-1.20 [facility] Glucose [Mass/volume] in Serum or Plasma 138 mg/dL 70-140 [facility] Alkaline phosphatase [Enzymatic activity/volume] in Serum or Plasma 168 U/L 40-129 H [facility] Potassium [Moles/volume] in Serum or Plasma 4.1 mmol/L 3.4-5.1 [facility] Protein [Mass/volume] in Serum or Plasma 7.1 g/dL 6.4-8.3 [facility] Sodium [Moles/volume] in Serum or Plasma 130 mmol/L 136-145 L [facility] Aspartate aminotransferase [Enzymatic activity/volume] in Serum or Plasma 60 U/L <40 H [facility] Urea nitrogen [Mass/volume] in Serum or Plasma 17 mg/dL 8-23 [facility] Osmolality of Serum or Plasma by calculation 274 mosm/kg 275-300 L [facility] Creatinine/Urea nitrogen [Mass Ratio] in Serum or Plasma 18 [facility] Bicarbonate [Moles/volume] in Serum 22 mmol/L 22-29 [facility] Alanine aminotransferase [Enzymatic activity/volume] in Seru m or Plasma 36 U/L <41 [facility] Anion gap 3 in Serum or Plasma 11 mmol/L 8-15 [facility] Glomerular filtration rate/1.73 sq M pre dicted among non-blacks [Volume Rate/Area] in Serum or Plasma by Creatinine-based formula (MDRD) 77 mL/min/1.73m2 >60 [facility] Glomerular filtration rate/1.73 sq M pre dicted among blacks [Volume Rate/Area] in Serum or Plasma by Creatinine-based formula (MDRD) 90 mL/min/1.73m2 >60 [facility] ID Date Data Source [id number] 02/18/2021 08:24:57 AM EDT [facility] Name Value Range Interpretation Code Description Data Ema rce(s) Supporting Document(s) POC GLUCOSE 124 mg/dL (70-99) H [facility] PERFORMED BY CLINICAL STAFF ID Date Data Source [id number] 02/18/2021 07:04:16 AM EDT [facility] Name Value Range Interpretation Code Description Data Ema rce(s) Supporting Document(s) SODIUM 141 mmol/L (136-145) [facility] POTASSIUM 3.8 mmol/L (3.6-5.2) [facility] CHLORIDE 111 mmol/L (100-108) H [facility] CO2 25 mmol/L (22-31) [facility] ANION GAP 5 mmol/L (7-16) L [facility] UREA NITROGEN 13 mg/dL (7-24) [facility] CREATININE 0.75 mg/dL (0.80-1.30) L [facility] BUN/CREAT RATIO 17.3 RATIO (10.0-20.0) [facility] GLUCOSE 137 mg/dL (70-99) H [facility] CALCIUM 9.0 mg/dL (8.4-10.2) [facility] TOTAL PROTEIN 5.5 g/dL (6.4-8.2) L [facility] ALBUMIN 1.8 g/dL (3.2-4.5) L [facility] GLOBULIN 3.7 g/dL (2.7-4.3) [facility] ALB/GLOB RATIO 0.5 RATIO [facility] ALKALINE PHOSPHATASE 139 U/L (45-117) H [facility] BILIRUBIN,TOTAL 0.8 mg/dL (0.0-1.0) [facility] PLEASE NOTE:Total bilirubin results may be falselyelevated in patients taking Eltrombopag. AST (SGOT) 63 U/L (11-39) H [facility] ALT (SGPT) 39 U/L (12-78) [facility] GFR >60 ml/min/1.73m2 (>59) [facility] GFR ( AMER) >60 ml/min/1.73m2 (>59) [facility] GFR INTERPRETATION [facility] --NORMAL KIDNEY FUNCTION OR MILD DISEASE - GFR >OR= 60CHRONIC KIDNEY DISEASE - GFR 15 - 59RENAL FAILURE - GFR <15 Est. GFR calculation based on the MDRDstudy equation, which assumes a steadystate for creatinine. Est. GFR should notbe used for medication dosing. ID Date Data Source [id number] 02/18/2021 06:27:58 AM EDT [facility] Name Value Range Interpretation Code Description Data Ema rce(s) Supporting Document(s) WBC 3.0 10*3/uL (4.1-11.0) L [facility] RBC 2.62 10*6/uL (4.60-6.10) L [facility] HGB 7.4 g/dL (13.5-18.0) L [facility] HCT 22.4 % (41.0-53.0) L [facility] MCV 85.4 fL (80.0-95.0) [facility] MCH 28.3 pg (27.0-32.0) [facility] MCHC 33.1 g/dL (32.0-36.0) [facility] RDW 16.2 % (10.5-14.5) H [facility] PLT 125 10*3/uL (150-450) L [facility] MPV 8.6 fL (7.1-10.7) [facility] ID Date Data Source [id number] 02/18/2021 02:59:19 AM EDT [facility] Name Value Range Interpretation Code Description Data Ema rce(s) Supporting Document(s) POC GLUCOSE 126 mg/dL (70-99) H [facility] NOTIFIED NURSEPERFORMED BY CLINICAL S TAFF ID Date Data Source [id number] 02/17/2021 08:44:14 PM EDT [facility] Name Value Range Interpretation Code Description Data Ema rce(s) Supporting Document(s) POC GLUCOSE 183 mg/dL (70-99) H [facility] NOTIFIED NURSEPERFORMED BY CLINICAL S TAFF ID Date Data Source [id number] 02/17/2021 08:20:47 PM EDT [facility] Name Value Range Interpretation Code Description Data Ema rce(s) Supporting Document(s) WBC 3.8 10*3/uL (4.1-11.0) L [facility] RBC 3.01 10*6/uL (4.60-6.10) L [facility] HGB 8.3 g/dL (13.5-18.0) L [facility] HCT 25.6 % (41.0-53.0) L [facility] MCV 85.3 fL (80.0-95.0) [facility] MCH 27.5 pg (27.0-32.0) [facility] MCHC 32.2 g/dL (32.0-36.0) [facility] RDW 16.4 % (10.5-14.5) [facility] PLT 157 10*3/uL (150-450) [facility] MPV 7.9 fL (7.1-10.7) [facility] ID Date Data Source [id number] 02/17/2021 05:44:15 PM EDT [facility] Name Value Range Interpretation Code Description Data Ema rce(s) Supporting Document(s) POC GLUCOSE 141 mg/dL (70-99) [facility] NOTIFIED NURSEPERFORMED BY CLINICAL S TAFF ID Date Data Source [id number] 02/17/2021 02:11:35 PM EDT [facility] Name Value Range Interpretation Code Description Data Ema rce(s) Supporting Document(s) WBC 3.3 10*3/uL (4.1-11.0) [facility] [place] RBC 2.86 10*6/uL (4.60-6.10) [facility] HGB 7.9 g/dL (13.5-18.0) [facility] HCT 24.5 % (41.0-53.0) [facility] MCV 85.6 fL (80.0-95.0) [facility] MCH 27.7 pg (27.0-32.0) [facility] MCHC 32.3 g/dL (32.0-36.0) [facility] RDW 16.2 % (10.5-14.5) [facility] PLT 136 10*3/uL (150-450) [facility] MPV 8.9 fL (7.1-10.7) [facility] ID Date Data Source [id number] 02/17/2021 12:45:18 PM EDT [facility] Name Value Range Interpretation Code Description Data Ema rce(s) Supporting Document(s) POC GLUCOSE 151 mg/dL (70-99) [facility] PERFORMED BY CLINICAL STAFF ID Date Data Source [id number] 02/17/2021 09:02:18 AM EDT [facility] Name Value Range Interpretation Code Description Data Ema rce(s) Supporting Document(s) POC GLUCOSE 120 mg/dL (70-99) [facility] PERFORMED BY CLINICAL STAFF ID Date Data Source [id number] 02/17/2021 08:36:01 AM EDT [facility] Name Value Range Interpretation Code Description Data Ema rce(s) Supporting Document(s) SODIUM 143 mmol/L (136-145) [facility] POTASSIUM 3.6 mmol/L (3.6-5.2) [facility] CHLORIDE 113 mmol/L (100-108) [facility] CO2 25 mmol/L (22-31) [facility] ANION GAP 5 mmol/L (7-16) [facility] UREA NITROGEN 16 mg/dL (7-24) [facility] CREATININE 0.80 mg/dL (0.80-1.30) [facility] BUN/CREAT RATIO 20.0 RATIO (10.0-20.0) [facility] GLUCOSE 126 mg/dL (70-99) [facility] CALCIUM 8.6 mg/dL (8.4-10.2) [facility] TOTAL PROTEIN 5.7 g/dL (6.4-8.2) [facility] ALBUMIN 1.9 g/dL (3.2-4.5) [facility] GLOBULIN 3.8 g/dL (2.7-4.3) [facility] ALB/GLOB RATIO 0.5 RATIO [facility] ALKALINE PHOSPHATASE 141 U/L (45-117) [facility] BILIRUBIN,TOTAL 1.2 mg/dL (0.0-1.0) [facility] PLEASE NOTE:Total bilirubin results may be falselyelevated in patients taking Eltrombopag. AST (SGOT) 56 U/L (11-39) [facility] ALT (SGPT) 37 U/L (12-78) [facility] GFR >60 ml/min/1.73m2 (>59) [facility] GFR ( AMER) >60 ml/min/1.73m2 (>59) [facility] GFR INTERPRETATION [facility] --NORMAL KIDNEY FUNCTION OR MILD DISEASE - GFR >OR= 60CHRONIC KIDNEY DISEASE - GFR 15 - 59RENAL FAILURE - GFR <15 Est. GFR calculation based on the MDRDstudy equation, which assumes a steadystate for creatinine. Est. GFR should notbe used for medication dosing. ID Date Data Source [id number] 02/17/2021 08:02:19 AM EDT [facility] [place] Name Value Range Interpretation Code Description Data Ema rce(s) Supporting Document(s) WBC 3.0 10*3/uL (4.1-11.0) [facility] [place] RBC 2.69 10*6/uL (4.60-6.10) [facility] HGB 7.4 g/dL (13.5-18.0) [facility] HCT 22.8 % (41.0-53.0) [facility] [address] [facility] [id number] MCV 84.6 fL (80.0-95.0) [facility] MCH 27.6 pg (27.0-32.0) [facility] MCHC 32.6 g/dL (32.0-36.0) [facility] RDW 16.5 % (10.5-14.5) [facility] PLT 129 10*3/uL (150-450) [facility] MPV 8.7 fL (7.1-10.7) [facility] ID Date Data Source [id number] 02/17/2021 04:40:08 AM EDT [facility] Name Value Range Interpretation Code Description Data Ema rce(s) Supporting Document(s) POC GLUCOSE 125 mg/dL (70-99) [facility] PERFORMED BY CLINICAL STAFF ID Date Data Source [id number] 02/16/2021 10:37:35 PM EDT [facility] Name Value Range Interpretation Code Description Data Ema rce(s) Supporting Document(s) POC GLUCOSE 169 mg/dL (70-99) [facility] NOTIFIED NURSEPERFORMED BY CLINICAL S TAFF ID Date Data Source [id number] 02/16/2021 08:37:46 PM EDT [facility] Name Value Range Interpretation Code Description Data Ema rce(s) Supporting Document(s) WBC 4.2 10*3/uL (4.1-11.0) [facility] [place] RBC 3.03 10*6/uL (4.60-6.10) [facility] HGB 8.4 g/dL (13.5-18.0) [facility] HCT 25.9 % (41.0-53.0) [facility] PER[facility] AT [address] [facility] [id number] MCV 85.3 fL (80.0-95.0) [facility] MCH 27.5 pg (27.0-32.0) [facility] MCHC 32.3 g/dL (32.0-36.0) [facility] RDW 16.0 % (10.5-14.5) [facility] PLT 147 10*3/uL (150-450) [facility] MPV 8.5 fL (7.1-10.7) [facility] ID Date Data Source [id number] 02/16/2021 05:27:15 PM EDT [facility] Name Value Range Interpretation Code Description Data Ema rce(s) Supporting Document(s) POC GLUCOSE 159 mg/dL (70-99) [facility] PERFORMED BY CLINICAL STAFF ID Date Data Source [id number] 02/16/2021 02:11:39 PM EDT [facility] Name Value Range Interpretation Code Description Data Ema rce(s) Supporting Document(s) SODIUM 141 mmol/L (136-145) [facility] POTASSIUM 3.7 mmol/L (3.6-5.2) [facility] CHLORIDE 111 mmol/L (100-108) H [facility] CO2 24 mmol/L (22-31) [facility] ANION GAP 6 mmol/L (7-16) L [facility] UREA NITROGEN 17 mg/dL (7-24) [facility] CREATININE 0.84 mg/dL (0.80-1.30) [facility] BUN/CREAT RATIO 20.2 RATIO (10.0-20.0) H [facility] GLUCOSE 157 mg/dL (70-99) H [facility] CALCIUM 9.5 mg/dL (8.4-10.2) [facility] GFR >60 ml/min/1.73m2 (>59) [facility] GFR ( AMER) >60 ml/min/1.73m2 (>59) [facility] GFR INTERPRETATION [facility] --NORMAL KIDNEY FUNCTION OR MILD DISEASE - GFR >OR= 60CHRONIC KIDNEY DISEASE - GFR 15 - 59RENAL FAILURE - GFR <15 Est. GFR calculation based on the MDRDstudy equation, which assumes a steadystate for creatinine. Est. GFR should notbe used for medication dosing. ID Date Data Source [id number] 02/16/2021 01:45:41 PM EDT [facility] Name Value Range Interpretation Code Description Data Ema rce(s) Supporting Document(s) WBC 3.5 10*3/uL (4.1-11.0) L [facility] [place] RBC 2.55 10*6/uL (4.60-6.10) L [facility] HGB 7.0 g/dL (13.5-18.0) L [facility] HCT 21.6 % (41.0-53.0) L [facility] PERFORMED AT [address] [place] [address] MCV 84.4 fL (80.0-95.0) [facility] MCH 27.4 pg (27.0-32.0) [facility] MCHC 32.5 g/dL (32.0-36.0) [facility] RDW 16.4 % (10.5-14.5) H [facility] PLT 147 10*3/uL (150-450) L [facility] MPV 8.8 fL (7.1-10.7) [facility] ID Date Data Source [id number] 02/16/2021 12:12:49 PM EDT [facility] Name Value Range Interpretation Code Description Data Ema rce(s) Supporting Document(s) POC GLUCOSE 182 mg/dL (70-99) H [facility] NOTIFIED NURSEPERFORMED BY CLINICAL S TAFF ID Date Data Source [id number] 02/16/2021 08:47:28 AM EDT [facility] Name Value Range Interpretation Code Description Data Ema rce(s) Supporting Document(s) POC GLUCOSE 141 mg/dL (70-99) H [facility] PERFORMED BY CLINICAL STAFF ID Date Data Source [id number] 02/16/2021 03:13:38 AM EDT [facility] Name Value Range Interpretation Code Description Data Ema rce(s) Supporting Document(s) POC GLUCOSE 126 mg/dL (70-99) H [facility] PERFORMED BY CLINICAL STAFF ID Date Data Source [id number] 02/16/2021 07:25:00 AM EDT [facility] DATE OF EXAM: 02/16/2021HEST, SINGLE PO RTABLE VIEW. INDICATION: Chest pain COMPARISON: 11/18/2020 TECHNIQUE: A portable radiograph of the chest was obtained. FINDINGS: No focal consolidation, pleural effusions or pulmonary edema is seen. The cardiomediastinal silhouette is mildly prominent. Visualized osseous structures are within normal limits. IMPRESSION: No acute abnormality is seen. Professional interpretation performed at [facility] .End of diagnostic report for accession: [id number] Interpreted: David Bueno MDTranscribed: 02/16/2021 07:25 AMSigned: 0 02/16/2021 07:25 AM David Bueno MD [facility] # [id number] BILL # [id number] Name Value Range Interpretation Code Description Data Ema rce(s) Supporting Document(s) ID Date Data Source [id number] 02/17/2021 12:48:06 AM EDT [facility] SPEC EXP DATE 02/19/2021ATI ENT ABO/Rh A POSITIVEANTIBODY SCREEN NEGATIVETESTING SITE PERFORMED AT [address] [place], [place] [address]BLOOD BANK COMMENT BLOOD TYPE CONFIRMED.UNIT NUMBER [id number] COMPONENT TYPE LEUKOPOOR RED CELLSUNIT DIVISION 00STATUS OF UNIT TRANSFUSEDTRANSFUSION STATUS OK TO TRANSFUSECROSSMATCH RESULT COMPATIBLE Name Value Range Interpretation Code Description Data Ema rce(s) Supporting Document(s) TYPE AND SCREEN [facility] [place] PATIENT ABO/Rh A POSITIVE ID Date Data Source [id number] 02/16/2021 12:54:29 AM EDT [facility] Name Value Range Interpretation Code Description Data Ema rce(s) Supporting Document(s) PT 12.1 s (9.2-11.9) H [facility] PERFORMED AT [address] [place] [address] INR 1.16 [facility] SUGGESTED THERAPEUTIC RANGES USING INR F ORSTABILIZED ANTICOAGULATED PATIENTS:STANDARD DOSE THERAPY INR 2.0-3.0 DVT, PE, PREVENT DVT OR EMBOLISMHIGH DOSE THERAPY INR 2.5-3.5 PREVENT EMBOLISM FROM MECHANICAL HEART VALVE ID Date Data Source [id number] 02/16/2021 12:44:12 AM EDT [facility] Name Value Range Interpretation Code Description Data Ema rce(s) Supporting Document(s) TOTAL PROTEIN 6.7 g/dL (6.4-8.2) [facility] ALBUMIN 2.2 g/dL (3.2-4.5) L [facility] GLOBULIN 4.5 g/dL (2.7-4.3) H [facility] ALB/GLOB RATIO 0.5 RATIO [facility] BILIRUBIN,TOTAL 1.3 mg/dL (0.0-1.0) H [facility] PLEASE NOTE:Total bilirubin results may be falselyelevated in patients taking Eltrombopag. BILIRUBIN,CONJUGATED 0.4 mg/dL (0.0-0.3) H [facility] BILIRUBIN,UNCONJ. 0.9 mg/dL (0.0-0.7) H [facility] ALKALINE PHOSPHATASE 155 U/L (45-117) H [facility] AST (SGOT) 63 U/L (11-39) H [facility] ALT (SGPT) 44 U/L (12-78) [facility] ID Date Data Source [id number] 02/16/2021 12:44:12 AM EDT [facility] Name Value Range Interpretation Code Description Data Ema rce(s) Supporting Document(s) TROPONIN I <0.05 ng/mL (<0.05) [facility] [place] Less than 0.05: Myocardial injury unlike lyGreater than or equal to 0.05: Highly suggestive of myocardial injuryCorrelation with rise and/or fall ofserial troponins, clinical symptomsand ECG changes is necessary. ID Date Data Source [id number] 02/16/2021 12:44:12 AM EDT [facility] Name Value Range Interpretation Code Description Data Ema rce(s) Supporting Document(s) SODIUM 140 mmol/L (136-145) [facility] [place] POTASSIUM 4.0 mmol/L (3.6-5.2) [facility] CHLORIDE 112 mmol/L (100-108) H [facility] CO2 22 mmol/L (22-31) [facility] ANION GAP 6 mmol/L (7-16) L [facility] UREA NITROGEN 18 mg/dL (7-24) [facility] CREATININE 0.83 mg/dL (0.80-1.30) [facility] BUN/CREAT RATIO 21.7 RATIO (10.0-20.0) H [facility] GLUCOSE 131 mg/dL (70-99) H [facility] CALCIUM 9.7 mg/dL (8.4-10.2) [facility] GFR >60 ml/min/1.73m2 (>59) [facility] GFR ( AMER) >60 ml/min/1.73m2 (>59) [facility] GFR INTERPRETATION [facility] --NORMAL KIDNEY FUNCTION OR MILD DISEASE - GFR >OR= 60CHRONIC KIDNEY DISEASE - GFR 15 - 59RENAL FAILURE - GFR <15 Est. GFR calculation based on the MDRDstudy equation, which assumes a steadystate for creatinine. Est. GFR should notbe used for medication dosing. ID Date Data Source [id number] 02/16/2021 12:28:08 AM EDT [facility] Name Value Range Interpretation Code Description Data Ema rce(s) Supporting Document(s) WBC 4.4 10*3/uL (4.1-11.0) [facility] [place] RBC 3.03 10*6/uL (4.60-6.10) L [facility] HGB 8.2 g/dL (13.5-18.0) L [facility] HCT 25.3 % (41.0-53.0) L [facility] MCV 83.7 fL (80.0-95.0) [facility] MCH 27.0 pg (27.0-32.0) [facility] MCHC 32.2 g/dL (32.0-36.0) [facility] RDW 16.2 % (10.5-14.5) H [facility] PLT 164 10*3/uL (150-450) [facility] MPV 9.2 fL (7.1-10.7) [facility] NEUT % 72.8 % (35.0-75.0) [facility] LYMPH % 8.6 % (16.0-52.0) L [facility] MONO % 10.8 % (0.0-8.0) H [facility] EOS % 7.3 % (0.0-5.0) H [facility] BASO % 0.5 % (0.0-4.0) [facility] NEUT # 3.2 10*3/uL (1.8-7.7) [facility] LYMPH # 0.4 10*3/uL (1.2-4.8) L [facility] MONO # 0.5 10*3/uL (0.0-0.8) [facility] Eosinophils [#/volume] in Blood by Automated count 0.3 10*3/uL (0.0-0 .5) [facility] BASO # 0.0 10*3/uL (0.0-0.2) [facility] ID Date Data Source [id number] 02/17/2021 07:11:40 AM EDT [facility] SPECIMEN DESCRIPTION URINE, COLLE CTION METHOD NOT SPECIFIEDCULTURE RESULTS NO GROWTHREPORT STATUS FINAL 02/17/2021 Name Value Range Interpretation Code Description Data Ema rce(s) Supporting Document(s) ID Date Data Source [id number] 02/16/2021 01:00:13 AM EDT [facility] Name Value Range Interpretation Code Description Data Ema rce(s) Supporting Document(s) URINE WBC (0-5) [facility] URINE RBC (0-2) [facility] BACTERIA 1+ [HPF] [facility] MUCUS 1+ [HPF] [facility] ID Date Data Source [id number] 02/16/2021 12:42:47 AM EDT [facility] Name Value Range Interpretation Code Description Data Ema rce(s) Supporting Document(s) COLOR [facility] PERFORMED AT [address] [facility] [address] APPEARANCE [facility] SPEC GRAV URINE 1.031 (1.003-1.030) H [facility] PH URINE 6.5 (5.0-7.5) [facility] LEUK ESTERASE (NEG) A [facility] NITRITE URINE (NEG) [facility] PROTEIN URINE (NEG) [facility] GLUCOSE URINE (NEG) [facility] KETONE URINE (NEG) [facility] [place] UROBILINOGEN 0.2 mg/dL (0-1.0) [facility] [place] BILIRUBIN URINE (NEG) [facility] BLOOD/HGB URINE 2+ (NEG) A [facility] ID Date Data Source [id number] 02/15/2021 05:36:00 PM [facility] Name Value Range Interpretation Code Description Data Ema rce(s) Supporting Document(s) SARS coronavirus 2 RNA [Presence] in Res piratory specimen by JUSTEN with probe detection NEGATIVE [facility] This lab was ordered by [facility] a nd reported by [facility]. ID Date Data Source [id number] 02/14/2021 10:27:00 AM EDT [facility] Name Value Range Interpretation Code Description Data Ema rce(s) Supporting Document(s) Glucose [Presence] in Urine Laboratory test result [facility] ([facility]) Protein [Presence] in Urine by Test strip 100 mg/dL [facility] ([facility]) Ua Nitrite Laboratory test result [facility] ([facility]) Blood [Presence] in Urine by Visual Laboratory test result [facility] ([facility]) Ua Leuko Laboratory test result [facility] ([facility]) Color of Urine Laboratory test result [facility] ([facility]) Ketones [Presence] in Urine by Test strip Laboratory test result [facility] ([facility]) Clarity of Urine Laboratory test result [facility] ([facility]) Ua Specific [place] 1.025 1.003-1.030 [facility] NT ([facility]) pH of Urine by Test strip 7.0 5.0-7.5 [facility] ([facility]) Bilirubin.total [Presence] in Urine by Test strip Laboratory test res ult [facility] ([facility]) Urobilinogen [Mass/volume] in Urine by Test strip 1.0 E.U./dL 0.0-1.0 [facility] ([facility]) ID Date Data Source [id number] 02/13/2021 05:53:00 PM [facility] Surgical Pathology ReportName: Clyde LINARES OBERTMRN: [id number] Number: [id number] Date: 02/12/2021 00:00Received Date: 02/12/2021 14:16Physician(s): АННА BRAUN MD ADJAPONG, OPOKU, MDSpecimen(s) ReceivedA: Material received for consultation, [facility], [id number] HistoryLiver bx ([id number]). Right lobe liver mass. Confirm HCC. Consultation.DiagnosisLIVER, NEEDLE BIOPSY ([id number], 02/07/21): HEPATOCELLULAR CARCINOMA,MODERATELY DIFFERENTIATED. CIRRHOSIS. (See microscopic description).Electronically Signed By Donnie West M.D., Attending Pathologist02/13/2021 17:53:35 Gross DescriptionReceived from [facility] in [place], [place], is 1 H and Estained slide and 6 specially stained slides, 1 paraffin block, [id number], with the corresponding pathology report. Microscopic [...] developed and their performance characteristics determined by [facility] Pathology department. They have not been cleared or approved by the USFood and Drug Administration. The FDA has determined that such clearanceor approval is not necessary. Name Value Range Interpretation Code Description Data Ema rce(s) Supporting Document(s) ID Date Data Source [id number] 01/31/2021 06:21:13 AM EDT [facility] Name Value Range Interpretation Code Description [facility] Supporting Document(s) SODIUM 139 mmol/L (136-145) [facility] POTASSIUM 3.7 mmol/L (3.6-5.2) [facility] CHLORIDE 106 mmol/L (100-108) [facility] CO2 24 mmol/L (22-31) [facility] ANION GAP 9 mmol/L (7-16) [facility] UREA NITROGEN 17 mg/dL (7-24) [facility] CREATININE 0.95 mg/dL (0.80-1.30) [facility] BUN/CREAT RATIO 17.9 RATIO (10.0-20.0) [facility] GLUCOSE 119 mg/dL (70-99) H [facility] CALCIUM 9.4 mg/dL (8.4-10.2) [facility] GFR >60 ml/min/1.73m2 (>59) [facility] GFR ( AMER) >60 ml/min/1.73m2 (>59) [facility] GFR INTERPRETATION [facility] --NORMAL KIDNEY FUNCTION OR MILD DISEASE - GFR >OR= 60CHRONIC KIDNEY DISEASE - GFR 15 - 59RENAL FAILURE - GFR <15 Est. GFR calculation based on the MDRDstudy equation, which assumes a steadystate for creatinine. Est. GFR should notbe used for medication dosing. ID Date Data Source [id number] 01/31/2021 05:49:23 AM EDT [facility] Name Value Range Interpretation Code Description Data Ema rce(s) Supporting Document(s) WBC 3.6 10*3/uL (4.1-11.0) L [facility] [place] RBC 2.70 10*6/uL (4.60-6.10) L [facility] HGB 7.3 g/dL (13.5-18.0) L [facility] HCT 22.2 % (41.0-53.0) L [facility] MCV 82.2 fL (80.0-95.0) [facility] MCH 27.2 pg (27.0-32.0) [facility] MCHC 33.1 g/dL (32.0-36.0) [facility] RDW 16.2 % (10.5-14.5) H [facility] PLT 178 10*3/uL (150-450) [facility] MPV 8.2 fL (7.1-10.7) [facility] [place] ID Date Data Source [id number] 01/31/2021 02:58:00 AM EDT [facility] Name Value Range Interpretation Code Description Data Ema rce(s) Supporting Document(s) SARS coronavirus 2 RNA [Presence] in Res piratory specimen by JUSTEN with probe detection NOT DETECTED [facility] This lab was [facility] by [facility]. ID Date Data Source [id number] 01/31/2021 03:56:47 AM EDT [facility] Name Value Range Interpretation Code Description Data Ema rce(s) Supporting Document(s) SPECIMEN DESCRIPTION [facility] INFLUENZA A (NEG) [facility] INFLUENZA B (NEG) [facility] RSV (NEG) [facility] COMMENT [facility] THE [place] FDA HAS MADE THIS TEST AVAILABL EUNDER AN EMERGENCY USE AUTHORIZATION(EUA) FOR THE DETECTION AND/OR DIAGNOSISOF THE VIRUS THAT CAUSES COVID-19.PERFORMED AT [address] [facility] [address] COVID19 RESULT (NDET) [facility] [facility] [place] THIS ASSAY AMPLIFIES AND DETECTSTHE TARG ET RNA USING REAL-TIME PCR.TESTING PERFORMED ON [facility] GENEXPERTNEGATIVE 2019_NCOV RT-PCR RESULTS DONOT PRECLUDE 2019_NCOV INFECTION ANDSHOULD NOT BE USED THE SOLE BASISFOR PATIENT MANAGEMENT DECISIONS. FIRST TEST [facility] [place] [employer]ED IN [facility] SYMPTOMATIC [facility] [place] DATE OF SYMPT ONSET [facility] [place] [facility] CON[facility]REGATE CARE SET [facility] [place] ID Date Data Source [id number] 01/31/2021 08:36:00 AM EDT [facility] DATE OF EXAM: 01/31/2021XAM: CT [...] above. A contemporaneous report was provided by [facility] at the time of this examination, reporting similar findings. Professional interpretation performed at [facility] .End of diagnostic report for accession: [id number] Interpreted: Shahnaz Ramos MDTranscribed: 01/31/2021 08:23 AMSigned: 01/31/2021 08:36 AM Shahnaz Ramos MD [facility] # [id number] BILL # [id number] Name Value Range Interpretation Code Description Data Ema rce(s) Supporting Document(s) ID Date Data Source [id number] 02/01/2021 09:19:09 AM EDT [facility] SPECIMEN DESCRIPTION URINE, COLLE CTION METHOD NOT SPECIFIEDCULTURE RESULTS MIXED UROGENITAL DEIRDRE; PLEASE SUBMIT A NEW SPEC IMEN IF CLINICALLY INDICATED.REPORT STATUS FINAL 02/01/2021 Name Value Range Interpretation Code Description Data Ema rce(s) Supporting Document(s) ID Date Data Source [id number] 01/31/2021 12:50:39 AM EDT [facility] Name Value Range Interpretation Code Description Data Ema rce(s) Supporting Document(s) URINE WBC (0-5) [facility] URINE RBC (0-2) [facility] ID Date Data Source [id number] 01/31/2021 12:39:03 AM EDT [facility] Name Value Range Interpretation Code Description Data Ema rce(s) Supporting Document(s) COLOR [facility] TESTING PERFORMED ON CENTRIFUGED SAMPLE APPEARANCE [facility] SPEC GRAV URINE 1.012 (1.003-1.030) [facility] PH URINE 6.5 (5.0-7.5) [facility] LEUK ESTERASE 2+ (NEG) A [facility] NITRITE URINE (NEG) [facility] PROTEIN URINE 2+ (NEG) A [facility] GLUCOSE URINE (NEG) [facility] KETONE URINE (NEG) [facility] [place] UROBILINOGEN 0.2 mg/dL (0-1.0) [facility] [place] BILIRUBIN URINE (NEG) [facility] BLOOD/HGB URINE 3+ (NEG) A [facility] ID Date Data Source [id number] 01/31/2021 12:42:08 AM EDT [facility] Name Value Range Interpretation Code Description Data Ema rce(s) Supporting Document(s) SODIUM 137 mmol/L (136-145) [facility] POTASSIUM 3.7 mmol/L (3.6-5.2) [facility] CHLORIDE 105 mmol/L (100-108) [facility] CO2 23 mmol/L (22-31) [facility] ANION GAP 9 mmol/L (7-16) [facility] UREA NITROGEN 17 mg/dL (7-24) [facility] CREATININE 1.02 mg/dL (0.80-1.30) [facility] BUN/CREAT RATIO 16.7 RATIO (10.0-20.0) [facility] GLUCOSE 147 mg/dL (70-99) H [facility] CALCIUM 9.6 mg/dL (8.4-10.2) [facility] GFR >60 ml/min/1.73m2 (>59) [facility] GFR ( AMER) >60 ml/min/1.73m2 (>59) [facility] GFR INTERPRETATION [facility] --NORMAL KIDNEY FUNCTION OR MILD DISEASE - GFR >OR= 60CHRONIC KIDNEY DISEASE - GFR 15 - 59RENAL FAILURE - GFR <15 Est. GFR calculation based on the MDRDstudy equation, which assumes a steadystate for creatinine. Est. GFR should notbe used for medication dosing. ID Date Data Source [id number] 01/31/2021 12:29:39 AM EDT [facility] Name Value Range Interpretation Code Description Data Ema rce(s) Supporting Document(s) WBC 4.0 10*3/uL (4.1-11.0) L [facility] [place] RBC 2.83 10*6/uL (4.60-6.10) L [facility] HGB 7.6 g/dL (13.5-18.0) L [facility] HCT 23.2 % (41.0-53.0) L [facility] MCV 82.1 fL (80.0-95.0) [facility] MCH 26.9 pg (27.0-32.0) L [facility] MCHC 32.8 g/dL (32.0-36.0) [facility] RDW 16.3 % (10.5-14.5) H [facility] PLT 187 10*3/uL (150-450) [facility] MPV 8.3 fL (7.1-10.7) [facility] NEUT % 78.0 % (35.0-75.0) H [facility] LYMPH % 6.7 % (16.0-52.0) L [facility] MONO % 9.3 % (0.0-8.0) H [facility] EOS % 4.4 % (0.0-5.0) [facility] BASO % 1.6 % (0.0-4.0) [facility] NEUT # 3.2 10*3/uL (1.8-7.7) [facility] LYMPH # 0.3 10*3/uL (1.2-4.8) L [facility] MONO # 0.4 10*3/uL (0.0-0.8) [facility] Eosinophils [#/volume] in Blood by Automated count 0.2 10*3/uL (0.0-0 .5) [facility] BASO # 0.1 10*3/uL (0.0-0.2) [facility] ID Date Data Source [id number] [id number] 01/11/2021 12:00:00 AM EDT [facility] ([facility]) Name Value Range Interpretation Code Description Data Ema rce(s) Supporting Document(s) PLZ LIVER [facility] ([facility]) ID Date Data Source [id number] 12/05/2020 12:19:00 PM EDT [facility] Name Value Range Interpretation Code Description Data Ema rce(s) Supporting Document(s) Specimen Adequacy Laboratory test result [facility] ([facility]) Ileal conduit/neobladder. Clinical History Laboratory test result [facility] ([facility]) BodySite Laboratory test result [facility] ([facility]) Voided - Clean Catch Gross Description Laboratory test result [facility] ([facility]) Received in a specimen container, labele d with the patients name and , is Cloudy Yellow fluid consistent with urine, measuring approximately 15 ml. Microscopic Description Laboratory test result [facility] ([facility]) Moderate numbers of neutrophils present. CPTCode 99221 [facility] Final Diagnosis Laboratory test result [facility] ([facility]) NEGATIVE FOR HIGH-GRADE UROTHELIAL CARCI NOMA. PDF Report Laboratory test result [facility] ([facility]) ID Date Data Source [id number] 12/05/2020 12:19:00 PM EDT [facility] Name Value Range Interpretation Code Description Data Mea rce(s) Supporting Document(s) Cytology report of Urine Cyto stain Laboratory test result [facility] ([facility]) ID Date Data Source [id number] 12/05/2020 11:34:00 AM EDT [facility] Name Value Range Interpretation Code Description Data Ema rce(s) Supporting Document(s) Glucose [Presence] in Urine Laboratory test result [facility] ([facility]) Protein [Presence] in Urine by Test strip 30 mg/dL [facility] ([facility]) Ua Nitrite Laboratory test result [facility] ([facility]) Blood [Presence] in Urine by Visual Laboratory test result [facility] ([facility]) Ua Leuko Laboratory test result [facility] ([facility]) Color of Urine Laboratory test result [facility] ([facility]) Ketones [Presence] in Urine by Test strip Laboratory test result [facility] ([facility]) Clarity of Urine Laboratory test result [facility] ([facility]) Ua Specific [place] 1.010 1.003-1.030 [facility] NT ([facility]) Bilirubin.total [Presence] in Urine by Test strip Laboratory test res ult [facility] ([facility]) pH of Urine by Test strip 6.5 5.0-7.5 [facility] ([facility]) Urobilinogen [Mass/volume] in Urine by Test strip 0.2 E.U./dL 0.0-1.0 [facility] ([facility]) ID Date Data Source [id number] 11/22/2020 12:44:37 PM EDT [facility] Name Value Range Interpretation Code Description Data Ema rce(s) Supporting Document(s) POC GLUCOSE 184 mg/dL (70-99) H [facility] NOTIFIED NURSEPERFORMED BY CLINICAL S TAFF ID Date Data Source [id number] 11/22/2020 07:40:49 AM EDT [facility] Name Value Range Interpretation Code Description Data Ema rce(s) Supporting Document(s) POC GLUCOSE 124 mg/dL (70-99) H [facility] NOTIFIED NURSEPERFORMED BY CLINICAL S TAFF ID Date Data Source [id number] 11/22/2020 07:35:48 AM EDT [facility] Name Value Range Interpretation Code Description Data Ema rce(s) Supporting Document(s) SODIUM 139 mmol/L (136-145) [facility] POTASSIUM 4.2 mmol/L (3.6-5.2) [facility] CHLORIDE 113 mmol/L (100-108) H [facility] CO2 18 mmol/L (22-31) L [facility] ANION GAP 8 mmol/L (7-16) [facility] UREA NITROGEN 27 mg/dL (7-24) [facility] CREATININE 0.95 mg/dL (0.80-1.30) [facility] BUN/CREAT RATIO 28.4 RATIO (10.0-20.0) [facility] GLUCOSE 115 mg/dL (70-99) [facility] CALCIUM 8.2 mg/dL (8.4-10.2) [facility] GFR >60 ml/min/1.73m2 (>59) [facility] GFR ( AMER) >60 ml/min/1.73m2 (>59) [facility] GFR INTERPRETATION [facility] --NORMAL KIDNEY FUNCTION OR MILD DISEASE - GFR >OR= 60CHRONIC KIDNEY DISEASE - GFR 15 - 59RENAL FAILURE - GFR <15 Est. GFR calculation based on the MDRDstudy equation, which assumes a steadystate for creatinine. Est. GFR should notbe used for medication dosing. ID Date Data Source [id number] 11/22/2020 06:58:27 AM EDT [facility] Name Value Range Interpretation Code Description Data Ema rce(s) Supporting Document(s) WBC 5.1 10*3/uL (4.1-11.0) [facility] [place] RBC 2.90 10*6/uL (4.60-6.10) L [facility] HGB 8.1 g/dL (13.5-18.0) L [facility] HCT 24.4 % (41.0-53.0) L [facility] MCV 84.1 fL (80.0-95.0) [facility] MCH 27.9 pg (27.0-32.0) [facility] MCHC 33.2 g/dL (32.0-36.0) [facility] RDW 16.5 % (10.5-14.5) H [facility] PLT 125 10*3/uL (150-450) L [facility] MPV 9.3 fL (7.1-10.7) [facility] NEUT % 63.0 % (35.0-75.0) [facility] LYMPH % 11.0 % (16.0-52.0) L [facility] MONO % 15.8 % (0.0-8.0) H [facility] EOS % 8.3 % (0.0-5.0) H [facility] BASO % 1.9 % (0.0-4.0) [facility] NEUT # 3.2 10*3/uL (1.8-7.7) [facility] LYMPH # 0.6 10*3/uL (1.2-4.8) L [facility] MONO # 0.8 10*3/uL (0.0-0.8) [facility] Eosinophils [#/volume] in Blood by Automated count 0.4 10*3/uL (0.0-0 .5) [facility] BASO # 0.1 10*3/uL (0.0-0.2) [facility] ID Date Data Source [id number] 11/21/2020 09:42:27 PM EDT [facility] Name Value Range Interpretation Code Description Data Ema rce(s) Supporting Document(s) POC GLUCOSE 183 mg/dL (70-99) H [facility] NOTIFIED NURSEPERFORMED BY CLINICAL S TAFF ID Date Data Source [id number] 11/21/2020 06:01:55 PM EDT [facility] Name Value Range Interpretation Code Description Data Ema rce(s) Supporting Document(s) POC GLUCOSE 156 mg/dL (70-99) H [facility] NOTIFIED NURSEPERFORMED BY CLINICAL S TAFF ID Date Data Source [id number] 11/21/2020 01:53:27 PM EDT [facility] Name Value Range Interpretation Code Description Data Ema rce(s) Supporting Document(s) POC GLUCOSE 137 mg/dL (70-99) H [facility] NOTIFIED NURSEPERFORMED BY CLINICAL S TAFF ID Date Data Source [id number] 11/21/2020 08:51:25 AM EDT [facility] Name Value Range Interpretation Code Description Data Ema rce(s) Supporting Document(s) POC GLUCOSE 106 mg/dL (70-99) H [facility] PERFORMED BY CLINICAL STAFF ID Date Data Source [id number] 11/21/2020 08:20:09 AM EDT [facility] Name Value Range Interpretation Code Description Data Ema rce(s) Supporting Document(s) POC GLUCOSE 107 mg/dL (70-99) H [facility] NOTIFIED NURSEPERFORMED BY CLINICAL S TAFF ID Date Data Source [id number] 11/21/2020 08:40:54 AM EDT [facility] Name Value Range Interpretation Code Description Data Ema rce(s) Supporting Document(s) SODIUM 138 mmol/L (136-145) [facility] POTASSIUM 4.1 mmol/L (3.6-5.2) [facility] CHLORIDE 111 mmol/L (100-108) H [facility] CO2 18 mmol/L (22-31) L [facility] ANION GAP 9 mmol/L (7-16) [facility] UREA NITROGEN 39 mg/dL (7-24) H [facility] CREATININE 1.87 mg/dL (0.80-1.30) H [facility] BUN/CREAT RATIO 20.9 RATIO (10.0-20.0) H [facility] GLUCOSE 104 mg/dL (70-99) H [facility] CALCIUM 8.4 mg/dL (8.4-10.2) [facility] GFR 35 ml/min/1.73m2 (>59) L [facility] GFR ( AMER) 42 ml/min/1.73m2 (>59) L [facility] GFR INTERPRETATION [facility] --NORMAL KIDNEY FUNCTION OR MILD DISEASE - GFR >OR= 60CHRONIC KIDNEY DISEASE - GFR 15 - 59RENAL FAILURE - GFR <15 Est. GFR calculation based on the MDRDstudy equation, which assumes a steadystate for creatinine. Est. GFR should notbe used for medication dosing. ID Date Data Source [id number] 11/21/2020 08:19:58 AM EDT [facility] Name Value Range Interpretation Code Description Data Ema rce(s) Supporting Document(s) WBC 5.9 10*3/uL (4.1-11.0) [facility] [place] RBC 2.94 10*6/uL (4.60-6.10) L [facility] HGB 8.3 g/dL (13.5-18.0) L [facility] HCT 24.9 % (41.0-53.0) L [facility] MCV 84.6 fL (80.0-95.0) [facility] MCH 28.1 pg (27.0-32.0) [facility] MCHC 33.2 g/dL (32.0-36.0) [facility] RDW 16.5 % (10.5-14.5) H [facility] PLT 123 10*3/uL (150-450) L [facility] MPV 9.1 fL (7.1-10.7) [facility] NEUT % 70.3 % (35.0-75.0) [facility] LYMPH % 6.6 % (16.0-52.0) L [facility] MONO % 14.9 % (0.0-8.0) H [facility] EOS % 7.2 % (0.0-5.0) H [facility] BASO % 1.0 % (0.0-4.0) [facility] NEUT # 4.2 10*3/uL (1.8-7.7) [facility] LYMPH # 0.4 10*3/uL (1.2-4.8) L [facility] MONO # 0.9 10*3/uL (0.0-0.8) H [facility] Eosinophils [#/volume] in Blood by Automated count 0.4 10*3/uL (0.0-0 .5) [facility] BASO # 0.1 10*3/uL (0.0-0.2) [facility] ID Date Data Source [id number] 2020 09:31:54 PM EDT [facility] Name Value Range Interpretation Code Description Data Ema rce(s) Supporting Document(s) POC GLUCOSE 146 mg/dL (70-99) H [facility] NOTIFIED NURSEPERFORMED BY CLINICAL S TAFF ID Date Data Source [id number] 2020 05:20:16 PM EDT [facility] Name Value Range Interpretation Code Description Data Ema rce(s) Supporting Document(s) POC GLUCOSE 131 mg/dL (70-99) H [facility] NOTIFIED NURSEPERFORMED BY CLINICAL S TAFF ID Date Data Source [id number] 2020 11:56:19 AM EDT [facility] Name Value Range Interpretation Code Description Data Ema rce(s) Supporting Document(s) POC GLUCOSE 194 mg/dL (70-99) H [facility] NOTIFIED NURSEPERFORMED BY CLINICAL S TAFF ID Date Data Source [id number] 2020 09:15:41 AM EDT [facility] Name Value Range Interpretation Code Description Data Ema rce(s) Supporting Document(s) POC GLUCOSE 107 mg/dL (70-99) H [facility] PERFORMED BY CLINICAL STAFF ID Date Data Source [id number] 2020 03:33:54 PM EDT [facility] Name Value Range Interpretation Code Description Data Ema rce(s) Supporting Document(s) IRON,TOTAL @ 15 ug/dL (35-150) L [facility] UIBC @ 184 ug/dL (130-375) [facility] TIBC @ 199 ug/dL (250-450) L [facility] % SATURATION 8 % (12-50) L [facility] ID Date Data Source [id number] 2020 03:33:54 PM EDT [facility] Name Value Range Interpretation Code Description Data Ema rce(s) Supporting Document(s) FERRITIN @ 66 ng/mL (26-388) [facility] ID Date Data Source [id number] 2020 09:16:02 AM EDT [facility] Name Value Range Interpretation Code Description Data Ema rce(s) Supporting Document(s) MAGNESIUM 2.3 mg/dL (1.7-2.4) [facility] ID Date Data Source [id number] 2020 09:16:02 AM EDT [facility] Name Value Range Interpretation Code Description Data Ema rce(s) Supporting Document(s) SODIUM 138 mmol/L (136-145) [facility] POTASSIUM 3.9 mmol/L (3.6-5.2) [facility] CHLORIDE 109 mmol/L (100-108) H [facility] CO2 21 mmol/L (22-31) L [facility] ANION GAP 8 mmol/L (7-16) [facility] UREA NITROGEN 47 mg/dL (7-24) H [facility] CREATININE 2.38 mg/dL (0.80-1.30) H [facility] BUN/CREAT RATIO 19.7 RATIO (10.0-20.0) [facility] GLUCOSE 97 mg/dL (70-99) [facility] CALCIUM 8.3 mg/dL (8.4-10.2) L [facility] GFR 27 ml/min/1.73m2 (>59) L [facility] GFR ( AMER) 32 ml/min/1.73m2 (>59) L [facility] GFR INTERPRETATION [facility] --NORMAL KIDNEY FUNCTION OR MILD DISEASE - GFR >OR= 60CHRONIC KIDNEY DISEASE - GFR 15 - 59RENAL FAILURE - GFR <15 Est. GFR calculation based on the MDRDstudy equation, which assumes a steadystate for creatinine. Est. GFR should notbe used for medication dosing. ID Date Data Source [id number] 2020 08:35:06 AM EDT [facility] Name Value Range Interpretation Code Description Data Ema rce(s) Supporting Document(s) WBC 7.3 10*3/uL (4.1-11.0) [facility] [place] RBC 3.01 10*6/uL (4.60-6.10) L [facility] HGB 8.5 g/dL (13.5-18.0) L [facility] HCT 25.3 % (41.0-53.0) L [facility] MCV 84.2 fL (80.0-95.0) [facility] MCH 28.3 pg (27.0-32.0) [facility] MCHC 33.6 g/dL (32.0-36.0) [facility] RDW 16.0 % (10.5-14.5) H [facility] PLT 119 10*3/uL (150-450) L [facility] MPV 9.5 fL (7.1-10.7) [facility] NEUT % 76.4 % (35.0-75.0) H [facility] LYMPH % 5.5 % (16.0-52.0) L [facility] MONO % 11.3 % (0.0-8.0) H [facility] EOS % 6.0 % (0.0-5.0) H [facility] BASO % 0.8 % (0.0-4.0) [facility] NEUT # 5.6 10*3/uL (1.8-7.7) [facility] LYMPH # 0.4 10*3/uL (1.2-4.8) L [facility] MONO # 0.8 10*3/uL (0.0-0.8) [facility] Eosinophils [#/volume] in Blood by Automated count 0.4 10*3/uL (0.0-0 .5) [facility] BASO # 0.1 10*3/uL (0.0-0.2) [facility] ID Date Data Source [id number] 2020 06:43:31 AM EDT [facility] Name Value Range Interpretation Code Description Data Ema rce(s) Supporting Document(s) POC GLUCOSE 96 mg/dL (70-99) [facility] PERFORMED BY CLINICAL STAFF ID Date Data Source [id number] 2020 12:23:25 AM EDT [facility] Name Value Range Interpretation Code Description Data Ema rce(s) Supporting Document(s) POC GLUCOSE 108 mg/dL (70-99) H [facility] PERFORMED BY CLINICAL STAFF ID Date Data Source [id number] 11/19/2020 06:15:18 PM EDT [facility] Name Value Range Interpretation Code Description Data Ema rce(s) Supporting Document(s) POC GLUCOSE 153 mg/dL (70-99) H [facility] NOTIFIED NURSEPERFORMED BY CLINICAL S TAFF ID Date Data Source [id number] 2020 07:14:05 AM EDT [facility] Name Value Range Interpretation Code Description Data Ema rce(s) Supporting Document(s) POC GLUCOSE 120 mg/dL (70-99) H [facility] NOTIFIED NURSEPERFORMED BY CLINICAL S TAFF ID Date Data Source [id number] 11/19/2020 02:25:25 PM EDT [facility] Name Value Range Interpretation Code Description Data Ema rce(s) Supporting Document(s) TOTAL PROTEIN 5.1 g/dL (6.4-8.2) L [facility] ALBUMIN 1.9 g/dL (3.2-4.5) L [facility] GLOBULIN 3.2 g/dL (2.7-4.3) [facility] ALB/GLOB RATIO 0.6 RATIO [facility] BILIRUBIN,TOTAL 0.7 mg/dL (0.0-1.0) [facility] PLEASE NOTE:Total bilirubin results may be falselyelevated in patients taking Eltrombopag. BILIRUBIN,CONJUGATED 0.3 mg/dL (0.0-0.3) [facility] BILIRUBIN,UNCONJ. 0.4 mg/dL (0.0-0.7) [facility] ALKALINE PHOSPHATASE 63 U/L (45-117) [facility] AST (SGOT) 43 U/L (11-39) H [facility] ALT (SGPT) 21 U/L (12-78) [facility] ID Date Data Source [id number] 11/19/2020 08:23:57 AM EDT [facility] Name Value Range Interpretation Code Description Data Ema rce(s) Supporting Document(s) VANCOMYCIN RANDOM 13.1 ug/mL [facility] THERAPEUTIC RANGE IS ONLY AVAILABLE FOR PEAK AND TROUGH SPECIMENS. RANDOM LEVEL RESULTS MUST BE INTERPRETED BY THE PHYSICIAN. ID Date Data Source [id number] 11/19/2020 08:23:57 AM EDT [facility] Name Value Range Interpretation Code Description Data Ema rce(s) Supporting Document(s) SODIUM 136 mmol/L (136-145) [facility] POTASSIUM 3.7 mmol/L (3.6-5.2) [facility] CHLORIDE 105 mmol/L (100-108) [facility] CO2 19 mmol/L (22-31) L [facility] ANION GAP 12 mmol/L (7-16) [facility] UREA NITROGEN 50 mg/dL (7-24) H [facility] CREATININE 2.59 mg/dL (0.80-1.30) H [facility] BUN/CREAT RATIO 19.3 RATIO (10.0-20.0) [facility] GLUCOSE 89 mg/dL (70-99) [facility] CALCIUM 8.2 mg/dL (8.4-10.2) L [facility] GFR 24 ml/min/1.73m2 (>59) L [facility] GFR ( AMER) 29 ml/min/1.73m2 (>59) L [facility] GFR INTERPRETATION [facility] --NORMAL KIDNEY FUNCTION OR MILD DISEASE - GFR >OR= 60CHRONIC KIDNEY DISEASE - GFR 15 - 59RENAL FAILURE - GFR <15 Est. GFR calculation based on the MDRDstudy equation, which assumes a steadystate for creatinine. Est. GFR should notbe used for medication dosing. ID Date Data Source [id number] 11/19/2020 08:02:08 AM EDT [facility] Name Value Range Interpretation Code Description Data Ema rce(s) Supporting Document(s) WBC 10.1 10*3/uL (4.1-11.0) [facility] RBC 2.79 10*6/uL (4.60-6.10) L [facility] HGB 7.9 g/dL (13.5-18.0) L [facility] HCT 23.6 % (41.0-53.0) L [facility] MCV 84.5 fL (80.0-95.0) [facility] MCH 28.2 pg (27.0-32.0) [facility] MCHC 33.4 g/dL (32.0-36.0) [facility] RDW 16.1 % (10.5-14.5) H [facility] PLT 104 10*3/uL (150-450) L [facility] MPV 9.2 fL (7.1-10.7) [facility] ID Date Data Source [id number] 11/19/2020 06:17:02 AM EDT [facility] Name Value Range Interpretation Code Description Data Ema rce(s) Supporting Document(s) POC GLUCOSE 108 mg/dL (70-99) H [facility] PERFORMED BY CLINICAL STAFF ID Date Data Source [id number] 11/19/2020 12:16:43 AM EDT [facility] Name Value Range Interpretation Code Description Data Ema rce(s) Supporting Document(s) POC GLUCOSE 148 mg/dL (70-99) H [facility] PERFORMED BY CLINICAL STAFF ID Date Data Source [id number] 2020 07:20:38 AM EDT [facility] SPECIMEN DESCRIPTION URINE, COLLE CTION METHOD NOT SPECIFIEDCULTURE RESULTS NO GROWTHREPORT STATUS FINAL 2020 Name Value Range Interpretation Code Description Data Ema rce(s) Supporting Document(s) ID Date Data Source [id number] 11/18/2020 05:46:48 PM EDT [facility] Name Value Range Interpretation Code Description Data Ema rce(s) Supporting Document(s) POC GLUCOSE 180 mg/dL (70-99) H [facility] NOTIFIED NURSEPERFORMED BY CLINICAL S TAFF ID Date Data Source [id number] 11/18/2020 01:55:22 PM EDT [facility] Name Value Range Interpretation Code Description Data Ema rce(s) Supporting Document(s) POC GLUCOSE 156 mg/dL (70-99) H [facility] PERFORMED BY CLINICAL STAFF ID Date Data Source [id number] 11/18/2020 01:26:32 PM EDT [facility] Name Value Range Interpretation Code Description Data Ema rce(s) Supporting Document(s) URINE WBC (0-5) [facility] URINE RBC (0-2) [facility] EPITHELIAL CELLS 1+ [HPF] [facility] BACTERIA 1+ [HPF] [facility] WBC CLUMPING 1+ [facility] [place] ID Date Data Source [id number] 11/18/2020 01:14:40 PM EDT [facility] Name Value Range Interpretation Code Description Data Ema rce(s) Supporting Document(s) COLOR [facility] APPEARANCE [facility] SPEC GRAV URINE 1.016 (1.003-1.030) [facility] PH URINE 5.5 (5.0-7.5) [facility] LEUK ESTERASE 3+ (NEG) A [facility] NITRITE URINE (NEG) [facility] PROTEIN URINE 1+ (NEG) A [facility] GLUCOSE URINE (NEG) [facility] KETONE URINE (NEG) [facility] UROBILINOGEN 0.2 mg/dL (0-1.0) [facility] BILIRUBIN URINE (NEG) [facility] BLOOD/HGB URINE 3+ (NEG) A [facility] ID Date Data Source [id number] 11/21/2020 10:04:31 AM EDT [facility] [place] SPECIMEN DESCRIPTION PERIPHERALSP ECIAL REQUESTS NONEGRAM STAIN GRAM NEGATIVE RODSALERTED CRITICAL RESULT TO DOREEN LIPSCOMB 5SIR @ 0940 11/19/2020 BY [id number] CULTURE RESULTS PSEUDOMONAS AERUGINOSA PSEUDOMONAS AERUGINOSA BY [...] rce(s) Supporting Document(s) ID Date Data Source [id number] 11/23/2020 11:15:10 AM EDT [facility] SPECIMEN DESCRIPTION PERIPHERALSP ECIAL REQUESTS NONECULTURE RESULTS NO GROWTH 5 DAYSREPORT STATUS FINAL 11/23/2020 Name Value Range Interpretation Code Description Data Ema rce(s) Supporting Document(s) ID Date Data Source [id number] 11/18/2020 09:33:00 AM EDT [facility] DATE OF EXAM: 11/18/2020XAM: Ultrasound vascular: [...] left Stevens's cyst. Professional interpretation performed at [facility] .End of diagnostic report for accession: [id number] Interpreted: Charbel Vizcaino MDTranscribed: 11/18/2020 09:32 AMSigned: 11/18/2020 09:33 AM Charbel Vizcaino MD [facility] # [id number] BILL # [id number] Name Value Range Interpretation Code Description Data Ema rce(s) Supporting Document(s) ID Date Data Source [id number] 11/18/2020 07:03:40 AM EDT [facility] Name Value Range Interpretation Code Description Data Ema rce(s) Supporting Document(s) POC GLUCOSE 117 mg/dL (70-99) H [facility] PERFORMED BY CLINICAL STAFF ID Date Data Source [id number] 11/18/2020 07:24:24 AM EDT [facility] Name Value Range Interpretation Code Description Data Ema rce(s) Supporting Document(s) MAGNESIUM 2.2 mg/dL (1.7-2.4) [facility] ID Date Data Source [id number] 11/18/2020 07:24:24 AM EDT [facility] Name Value Range Interpretation Code Description Data Ema rce(s) Supporting Document(s) NT PRO BNP 223 pg/mL (0-450) [facility] ID Date Data Source [id number] 11/18/2020 07:24:24 AM EDT [facility] Name Value Range Interpretation Code Description Data Ema rce(s) Supporting Document(s) TROPONIN I <0.05 ng/mL (<0.05) [facility] [place] Less than 0.05: Myocardial injury unlike lyGreater than or equal to 0.05: Highly suggestive of myocardial injuryCorrelation with rise and/or fall ofserial troponins, clinical symptomsand ECG changes is necessary. ID Date Data Source [id number] 11/18/2020 07:24:24 AM EDT [facility] Name Value Range Interpretation Code Description Data Ema rce(s) Supporting Document(s) SODIUM 137 mmol/L (136-145) [facility] POTASSIUM 4.1 mmol/L (3.6-5.2) [facility] CHLORIDE 105 mmol/L (100-108) [facility] CO2 25 mmol/L (22-31) [facility] ANION GAP 7 mmol/L (7-16) [facility] UREA NITROGEN 50 mg/dL (7-24) H [facility] CREATININE 2.22 mg/dL (0.80-1.30) H [facility] BUN/CREAT RATIO 22.5 RATIO (10.0-20.0) H [facility] GLUCOSE 127 mg/dL (70-99) H [facility] CALCIUM 9.3 mg/dL (8.4-10.2) [facility] GFR 29 ml/min/1.73m2 (>59) L [facility] GFR ( AMER) 35 ml/min/1.73m2 (>59) L [facility] GFR INTERPRETATION [facility] --NORMAL KIDNEY FUNCTION OR MILD DISEASE - GFR >OR= 60CHRONIC KIDNEY DISEASE - GFR 15 - 59RENAL FAILURE - GFR <15 Est. GFR calculation based on the MDRDstudy equation, which assumes a steadystate for creatinine. Est. GFR should notbe used for medication dosing. ID Date Data Source [id number] 11/18/2020 06:53:47 AM EDT [facility] Name Value Range Interpretation Code Description Data Ema rce(s) Supporting Document(s) WBC 3.7 10*3/uL (4.1-11.0) L [facility] [place] RBC 3.44 10*6/uL (4.60-6.10) L [facility] HGB 9.6 g/dL (13.5-18.0) L [facility] HCT 29.1 % (41.0-53.0) L [facility] MCV 84.5 fL (80.0-95.0) [facility] MCH 27.9 pg (27.0-32.0) [facility] MCHC 33.1 g/dL (32.0-36.0) [facility] RDW 16.2 % (10.5-14.5) H [facility] PLT 116 10*3/uL (150-450) L [facility] MPV 8.9 fL (7.1-10.7) [facility] NEUT % 92.1 % (35.0-75.0) H [facility] LYMPH % 3.1 % (16.0-52.0) L [facility] MONO % 2.5 % (0.0-8.0) [facility] EOS % 2.1 % (0.0-5.0) [facility] BASO % 0.2 % (0.0-4.0) [facility] NEUT # 3.4 10*3/uL (1.8-7.7) [facility] LYMPH # 0.1 10*3/uL (1.2-4.8) L [facility] MONO # 0.1 10*3/uL (0.0-0.8) [facility] Eosinophils [#/volume] in Blood by Automated count 0.1 10*3/uL (0.0-0 .5) [facility] BASO # 0.0 10*3/uL (0.0-0.2) [facility] ID Date Data Source [id number] 11/18/2020 07:02:00 AM EDT [facility] Name Value Range Interpretation Code Description Data Ema rce(s) Supporting Document(s) LACTIC ACID 1.9 mmol/L (0.4-2.0) [facility] [place] ID Date Data Source [id number] 11/18/2020 08:13:00 AM EDT [facility] DATE OF EXAM: 11/18/2020XAM: Portable c hest INDICATION: DYSPNEA COMPARISON: 02/18/2011 TECHNIQUE: AP upright. There is a limited degree of inspiration with mild accentuation of the pulmonary vascular markings. No focal area of pneumonia or atelectasis is seen. The mediastinum, heart, and pulmonary vascularity are within normal limits. IMPRESSION: No acute disease. Professional interpretation performed at [facility] .End of diagnostic report for accession: [id number] Interpreted: Charbel Vizcaino MDTranscribed: 11/18/2020 08:12 AMSigned: 11/18/2020 08:13 AM Charbel Vizcaino MD [facility] # [id number] [facility] # [id number] Name Value Range Interpretation Code Description Data Ema rce(s) Supporting Document(s) ID Date Data Source [id number] 11/18/2020 12:01:07 AM EDT [facility] Name Value Range Interpretation Code Description Data Ema rce(s) Supporting Document(s) POC GLUCOSE 156 mg/dL (70-99) H [facility] PERFORMED BY CLINICAL STAFF ID Date Data Source [id number] 11/17/2020 05:55:37 PM EDT [facility] Name Value Range Interpretation Code Description Data Ema rce(s) Supporting Document(s) POC GLUCOSE 137 mg/dL (70-99) H [facility] NOTIFIED NURSEPERFORMED BY CLINICAL S TAFF ID Date Data Source [id number] 11/17/2020 12:25:31 PM EDT [facility] Name Value Range Interpretation Code Description Data Ema rce(s) Supporting Document(s) POC GLUCOSE 131 mg/dL (70-99) H [facility] NOTIFIED NURSEPERFORMED BY CLINICAL S TAFF ID Date Data Source [id number] 11/17/2020 08:55:54 AM EDT [facility] Name Value Range Interpretation Code Description Data Ema rce(s) Supporting Document(s) SODIUM 141 mmol/L (136-145) [facility] POTASSIUM 4.1 mmol/L (3.6-5.2) [facility] CHLORIDE 109 mmol/L (100-108) [facility] CO2 23 mmol/L (22-31) [facility] ANION GAP 9 mmol/L (7-16) [facility] UREA NITROGEN 51 mg/dL (7-24) [facility] CREATININE 2.05 mg/dL (0.80-1.30) [facility] BUN/CREAT RATIO 24.9 RATIO (10.0-20.0) [facility] GLUCOSE 107 mg/dL (70-99) [facility] CALCIUM 9.2 mg/dL (8.4-10.2) [facility] GFR 32 ml/min/1.73m2 (>59) [facility] GFR ( AMER) 38 ml/min/1.73m2 (>59) [facility] GFR INTERPRETATION [facility] --NORMAL KIDNEY FUNCTION OR MILD DISEASE - GFR >OR= 60CHRONIC KIDNEY DISEASE - GFR 15 - 59RENAL FAILURE - GFR <15 Est. GFR calculation based on the MDRDstudy equation, which assumes a steadystate for creatinine. Est. GFR should notbe used for medication dosing. ID Date Data Source [id number] 11/17/2020 08:35:35 AM EDT [facility] Name Value Range Interpretation Code Description Data Ema rce(s) Supporting Document(s) WBC 4.5 10*3/uL (4.1-11.0) [facility] RBC 3.11 10*6/uL (4.60-6.10) [facility] HGB 8.5 g/dL (13.5-18.0) [facility] HCT 26.5 % (41.0-53.0) [facility] MCV 85.3 fL (80.0-95.0) [facility] MCH 27.4 pg (27.0-32.0) [facility] MCHC 32.1 g/dL (32.0-36.0) [facility] RDW 16.2 % (10.5-14.5) [facility] PLT 102 10*3/uL (150-450) [facility] MPV 9.4 fL (7.1-10.7) [facility] NEUT % 77.2 % (35.0-75.0) [facility] LYMPH % 7.2 % (16.0-52.0) [facility] MONO % 10.8 % (0.0-8.0) [facility] EOS % 4.3 % (0.0-5.0) [facility] BASO % 0.5 % (0.0-4.0) [facility] NEUT # 3.5 10*3/uL (1.8-7.7) [facility] LYMPH # 0.3 10*3/uL (1.2-4.8) L [facility] MONO # 0.5 10*3/uL (0.0-0.8) [facility] Eosinophils [#/volume] in Blood by Automated count 0.2 10*3/uL (0.0-0 .5) [facility] BASO # 0.0 10*3/uL (0.0-0.2) [facility] ID Date Data Source [id number] 11/17/2020 05:32:32 AM EDT [facility] Name Value Range Interpretation Code Description Data Ema rce(s) Supporting Document(s) POC GLUCOSE 112 mg/dL (70-99) H [facility] NOTIFIED NURSEPERFORMED BY CLINICAL S TAFF ID Date Data Source [id number] 11/17/2020 03:04:02 AM EDT [facility] Name Value Range Interpretation Code Description Data Ema rce(s) Supporting Document(s) STOOL OCCULT BLOOD (NEG) [facility] ID Date Data Source [id number] 11/17/2020 12:19:03 AM EDT [facility] Name Value Range Interpretation Code Description Data Ema rce(s) Supporting Document(s) POC GLUCOSE 134 mg/dL (70-99) [facility] NOTIFIED NURSEPERFORMED BY CLINICAL S TAFF ID Date Data Source [id number] 11/16/2020 06:51:12 PM EDT [facility] Name Value Range Interpretation Code Description Data Ema rce(s) Supporting Document(s) POC GLUCOSE 120 mg/dL (70-99) [facility] PERFORMED BY CLINICAL STAFF ID Date Data Source [id number] 11/16/2020 06:47:00 PM EDT Israel Naranjo al [...] position. X7End of diagnostic report for accession: [id number] Interpreted: Charbel Kilpatrick MDTranscribed: 11/16/2020 06:41 PMSigned: 11/16/2020 06:47 PM Charbel Kilpatrick MD ------- [facility] # [id number] [facility] # [id number] Name Value Range Interpretation Code Description Data Ema rce(s) Supporting Document(s) ID Date Data Source [id number] 11/16/2020 01:15:02 PM EDT [facility] Name Value Range Interpretation Code Description Data Ema rce(s) Supporting Document(s) FLUID CREATININE 1.75 mg/dL [facility] ID Date Data Source [id number] 11/16/2020 12:52:45 PM EDT [facility] Name Value Range Interpretation Code Description Data Ema rce(s) Supporting Document(s) FLUID SOURCE [facility] [place] ID Date Data Source [id number] 11/16/2020 12:25:11 PM EDT [facility] Name Value Range Interpretation Code Description Data Ema rce(s) Supporting Document(s) POC GLUCOSE 149 mg/dL (70-99) H [facility] PERFORMED BY CLINICAL STAFF ID Date Data Source [id number] 11/16/2020 01:18:38 PM EDT [facility] Name Value Range Interpretation Code Description Data Ema rce(s) Supporting Document(s) SODIUM 142 mmol/L (136-145) [facility] POTASSIUM 3.9 mmol/L (3.6-5.2) [facility] CHLORIDE 109 mmol/L (100-108) H [facility] CO2 27 mmol/L (22-31) [facility] ANION GAP 6 mmol/L (7-16) L [facility] UREA NITROGEN 48 mg/dL (7-24) [facility] CREATININE 1.97 mg/dL (0.80-1.30) H [facility] BUN/CREAT RATIO 24.4 RATIO (10.0-20.0) [facility] GLUCOSE 149 mg/dL (70-99) H [facility] CALCIUM 9.4 mg/dL (8.4-10.2) [facility] TOTAL PROTEIN 6.5 g/dL (6.4-8.2) [facility] ALBUMIN 2.5 g/dL (3.2-4.5) L [facility] GLOBULIN 4.0 g/dL (2.7-4.3) [facility] ALB/GLOB RATIO 0.6 RATIO [facility] ALKALINE PHOSPHATASE 72 U/L (45-117) [facility] BILIRUBIN,TOTAL 0.7 mg/dL (0.0-1.0) [facility] PLEASE NOTE:Total bilirubin results may be falselyelevated in patients taking Eltrombopag. AST (SGOT) 33 U/L (11-39) [facility] ALT (SGPT) 13 U/L (12-78) [facility] GFR 33 ml/min/1.73m2 (>59) L [facility] GFR ( AMER) 40 ml/min/1.73m2 (>59) L [facility] GFR INTERPRETATION [facility] --NORMAL KIDNEY FUNCTION OR MILD DISEASE - GFR >OR= 60CHRONIC KIDNEY DISEASE - GFR 15 - 59RENAL FAILURE - GFR <15 Est. GFR calculation based on the MDRDstudy equation, which assumes a steadystate for creatinine. Est. GFR should notbe used for medication dosing. ID Date Data Source [id number] 11/16/2020 12:50:19 PM EDT [facility] Name Value Range Interpretation Code Description Data Ema rce(s) Supporting Document(s) WBC 6.5 10*3/uL (4.1-11.0) [facility] [place] RBC 3.22 10*6/uL (4.60-6.10) L [facility] HGB 8.9 g/dL (13.5-18.0) L [facility] HCT 27.3 % (41.0-53.0) [facility] MCV 84.7 fL (80.0-95.0) [facility] MCH 27.6 pg (27.0-32.0) [facility] MCHC 32.6 g/dL (32.0-36.0) [facility] RDW 16.3 % (10.5-14.5) [facility] PLT 102 10*3/uL (150-450) [facility] MPV 8.9 fL (7.1-10.7) [facility] NEUT % 84.9 % (35.0-75.0) [facility] LYMPH % 3.8 % (16.0-52.0) [facility] MONO % 9.5 % (0.0-8.0) [facility] EOS % 1.7 % (0.0-5.0) [facility] BASO % 0.1 % (0.0-4.0) [facility] NEUT # 5.5 10*3/uL (1.8-7.7) [facility] LYMPH # 0.2 10*3/uL (1.2-4.8) L [facility] MONO # 0.6 10*3/uL (0.0-0.8) [facility] Eosinophils [#/volume] in Blood by Automated count 0.1 10*3/uL (0.0-0 .5) [facility] BASO # 0.0 10*3/uL (0.0-0.2) [facility] ID Date Data Source [id number] 11/16/2020 07:25:10 AM EDT [facility] Name Value Range Interpretation Code Description Data Ema rce(s) Supporting Document(s) SODIUM 142 mmol/L (136-145) [facility] POTASSIUM 4.4 mmol/L (3.6-5.2) [facility] CHLORIDE 111 mmol/L (100-108) H [facility] CO2 25 mmol/L (22-31) [facility] ANION GAP 6 mmol/L (7-16) L [facility] UREA NITROGEN 48 mg/dL (7-24) H [facility] CREATININE 1.86 mg/dL (0.80-1.30) H [facility] BUN/CREAT RATIO 25.8 RATIO (10.0-20.0) H [facility] GLUCOSE 142 mg/dL (70-99) H [facility] CALCIUM 9.5 mg/dL (8.4-10.2) [facility] GFR 35 ml/min/1.73m2 (>59) L [facility] GFR ( AMER) 43 ml/min/1.73m2 (>59) L [facility] GFR INTERPRETATION [facility] --NORMAL KIDNEY FUNCTION OR MILD DISEASE - GFR >OR= 60CHRONIC KIDNEY DISEASE - GFR 15 - 59RENAL FAILURE - GFR <15 Est. GFR calculation based on the MDRDstudy equation, which assumes a steadystate for creatinine. Est. GFR should notbe used for medication dosing. ID Date Data Source [id number] 11/16/2020 06:44:48 AM EDT [facility] Name Value Range Interpretation Code Description Data Ema rce(s) Supporting Document(s) WBC 6.0 10*3/uL (4.1-11.0) [facility] [place] RBC 3.20 10*6/uL (4.60-6.10) L [facility] HGB 9.2 g/dL (13.5-18.0) L [facility] HCT 27.4 % (41.0-53.0) [facility] MCV 85.5 fL (80.0-95.0) [facility] MCH 28.6 pg (27.0-32.0) [facility] MCHC 33.4 g/dL (32.0-36.0) [facility] RDW 16.3 % (10.5-14.5) [facility] PLT 92 10*3/uL (150-450) L [facility] MPV 9.2 fL (7.1-10.7) [facility] NEUT % 82.5 % (35.0-75.0) [facility] LYMPH % 3.8 % (16.0-52.0) [facility] MONO % 11.3 % (0.0-8.0) [facility] EOS % 2.2 % (0.0-5.0) [facility] BASO % 0.2 % (0.0-4.0) [facility] NEUT # 5.0 10*3/uL (1.8-7.7) [facility] LYMPH # 0.2 10*3/uL (1.2-4.8) L [facility] MONO # 0.7 10*3/uL (0.0-0.8) [facility] Eosinophils [#/volume] in Blood by Automated count 0.1 10*3/uL (0.0-0 .5) [facility] BASO # 0.0 10*3/uL (0.0-0.2) [facility] ID Date Data Source [id number] 11/16/2020 06:06:03 AM EDT [facility] Name Value Range Interpretation Code Description Data Ema rce(s) Supporting Document(s) POC GLUCOSE 141 mg/dL (70-99) H [facility] NOTIFIED NURSEPERFORMED BY CLINICAL S TAFF ID Date Data Source [id number] 11/16/2020 12:07:42 AM EDT [facility] Name Value Range Interpretation Code Description Data Ema rce(s) Supporting Document(s) POC GLUCOSE 134 mg/dL (70-99) [facility] NOTIFIED NURSEPERFORMED BY CLINICAL S TAFF ID Date Data Source [id number] 11/15/2020 06:20:11 PM EDT [facility] Name Value Range Interpretation Code Description Data Ema rce(s) Supporting Document(s) POC GLUCOSE 155 mg/dL (70-99) H [facility] NOTIFIED NURSEPERFORMED BY CLINICAL S TAFF ID Date Data Source [id number] 11/15/2020 12:38:28 PM EDT [facility] Name Value Range Interpretation Code Description Data Ema rce(s) Supporting Document(s) POC GLUCOSE 160 mg/dL (70-99) H [facility] NOTIFIED NURSEPERFORMED BY CLINICAL S TAFF ID Date Data Source [id number] 11/15/2020 12:50:54 PM EDT [facility] Name Value Range Interpretation Code Description Data Ema rce(s) Supporting Document(s) SODIUM 141 mmol/L (136-145) [facility] POTASSIUM 4.1 mmol/L (3.6-5.2) [facility] CHLORIDE 108 mmol/L (100-108) [facility] CO2 26 mmol/L (22-31) [facility] ANION GAP 7 mmol/L (7-16) [facility] UREA NITROGEN 36 mg/dL (7-24) H [facility] CREATININE 1.68 mg/dL (0.80-1.30) H [facility] BUN/CREAT RATIO 21.4 RATIO (10.0-20.0) [facility] GLUCOSE 152 mg/dL (70-99) H [facility] CALCIUM 9.7 mg/dL (8.4-10.2) [facility] TOTAL PROTEIN 6.5 g/dL (6.4-8.2) [facility] ALBUMIN 2.7 g/dL (3.2-4.5) L [facility] GLOBULIN 3.8 g/dL (2.7-4.3) [facility] ALB/GLOB RATIO 0.7 RATIO [facility] ALKALINE PHOSPHATASE 72 U/L (45-117) [facility] BILIRUBIN,TOTAL 0.7 mg/dL (0.0-1.0) [facility] PLEASE NOTE:Total bilirubin results may be falselyelevated in patients taking Eltrombopag. AST (SGOT) 31 U/L (11-39) [facility] ALT (SGPT) 18 U/L (12-78) [facility] GFR 40 ml/min/1.73m2 (>59) L [facility] GFR ( AMER) 48 ml/min/1.73m2 (>59) L [facility] GFR INTERPRETATION [facility] --NORMAL KIDNEY FUNCTION OR MILD DISEASE - GFR >OR= 60CHRONIC KIDNEY DISEASE - GFR 15 - 59RENAL FAILURE - GFR <15 Est. GFR calculation based on the MDRDstudy equation, which assumes a steadystate for creatinine. Est. GFR should notbe used for medication dosing. ID Date Data Source [id number] 11/15/2020 12:11:25 PM EDT [facility] Name Value Range Interpretation Code Description Data Ema rce(s) Supporting Document(s) WBC 7.9 10*3/uL (4.1-11.0) [facility] [place] RBC 3.22 10*6/uL (4.60-6.10) L [facility] HGB 9.0 g/dL (13.5-18.0) L [facility] HCT 27.3 % (41.0-53.0) L [facility] MCV 84.8 fL (80.0-95.0) [facility] MCH 28.1 pg (27.0-32.0) [facility] MCHC 33.1 g/dL (32.0-36.0) [facility] RDW 16.1 % (10.5-14.5) [facility] PLT 112 10*3/uL (150-450) L [facility] MPV 9.3 fL (7.1-10.7) [facility] ID Date Data Source [id number] 11/15/2020 05:46:43 AM EDT [facility] Name Value Range Interpretation Code Description Data Ema rce(s) Supporting Document(s) POC GLUCOSE 156 mg/dL (70-99) [facility] NOTIFIED NURSEPERFORMED BY CLINICAL S TAFF ID Date Data Source [id number] 11/15/2020 12:06:03 AM EDT [facility] Name Value Range Interpretation Code Description Data Ema rce(s) Supporting Document(s) POC GLUCOSE 153 mg/dL (70-99) H [facility] NOTIFIED NURSEPERFORMED BY CLINICAL S TAFF ID Date Data Source [id number] 11/14/2020 08:19:00 PM EDT [facility] DATE OF EXAM: 11/14/2020XAM: ABDOMINAL X-RAY. HISTORY: STENT TECHNIQUE: Single supine view the abdomen is obtained. Portions of the upper abdomen are excluded from the image [id number]. COMPARISON: Abdominal x-ray dated 02/18/2011. CT abdomen [...] bilateral hip osteoarthritis. Professional interpretation performed at [facility] .End of diagnostic report for accession: [id number] Interpreted: Marielena Simmons MDTranscribed: 11/14/2020 08:17 PMSigned: 11/14/2020 08:19 PM Marielena Simmons MD [facility] # [id number] BILL # [id number] Name Value Range Interpretation Code Description Data Ema rce(s) Supporting Document(s) ID Date Data Source [id number] 11/14/2020 06:01:30 PM EDT [facility] Name Value Range Interpretation Code Description Data Ema rce(s) Supporting Document(s) POC GLUCOSE 147 mg/dL (70-99) H [facility] PERFORMED BY CLINICAL STAFF ID Date Data Source [id number] 11/14/2020 11:20:05 AM EDT [facility] Name Value Range Interpretation Code Description Data Ema rce(s) Supporting Document(s) POC GLUCOSE 182 mg/dL (70-99) H [facility] NOTIFIED NURSEPERFORMED BY CLINICAL S TAFF ID Date Data Source [id number] 11/14/2020 08:29:58 AM EDT [facility] Name Value Range Interpretation Code Description Data Ema rce(s) Supporting Document(s) SODIUM 143 mmol/L (136-145) [facility] POTASSIUM 4.7 mmol/L (3.6-5.2) [facility] CHLORIDE 112 mmol/L (100-108) H [facility] CO2 24 mmol/L (22-31) [facility] ANION GAP 7 mmol/L (7-16) [facility] UREA NITROGEN 22 mg/dL (7-24) [facility] CREATININE 1.09 mg/dL (0.80-1.30) [facility] BUN/CREAT RATIO 20.2 RATIO (10.0-20.0) [facility] GLUCOSE 201 mg/dL (70-99) H [facility] CALCIUM 9.9 mg/dL (8.4-10.2) [facility] GFR >60 ml/min/1.73m2 (>59) [facility] GFR ( AMER) >60 ml/min/1.73m2 (>59) [facility] GFR INTERPRETATION [facility] --NORMAL KIDNEY FUNCTION OR MILD DISEASE - GFR >OR= 60CHRONIC KIDNEY DISEASE - GFR 15 - 59RENAL FAILURE - GFR <15 Est. GFR calculation based on the MDRDstudy equation, which assumes a steadystate for creatinine. Est. GFR should notbe used for medication dosing. ID Date Data Source [id number] 11/14/2020 08:10:07 AM EDT [facility] Name Value Range Interpretation Code Description Data Ema rce(s) Supporting Document(s) WBC 7.7 10*3/uL (4.1-11.0) [facility] [place] RBC 3.25 10*6/uL (4.60-6.10) L [facility] HGB 9.3 g/dL (13.5-18.0) L [facility] HCT 28.2 % (41.0-53.0) [facility] MCV 86.7 fL (80.0-95.0) [facility] MCH 28.5 pg (27.0-32.0) [facility] MCHC 32.9 g/dL (32.0-36.0) [facility] RDW 16.6 % (10.5-14.5) H [facility] PLT 113 10*3/uL (150-450) L [facility] MPV 9.4 fL (7.1-10.7) [facility] ID Date Data Source [id number] 11/14/2020 06:02:40 AM EDT [facility] Name Value Range Interpretation Code Description Data Ema rce(s) Supporting Document(s) POC GLUCOSE 199 mg/dL (70-99) H [facility] PERFORMED BY CLINICAL STAFF ID Date Data Source [id number] 11/13/2020 09:40:55 PM EDT [facility] Name Value Range Interpretation Code Description Data Ema rce(s) Supporting Document(s) POC GLUCOSE 171 mg/dL (70-99) H [facility] PERFORMED BY CLINICAL STAFF ID Date Data Source [id number] 11/13/2020 08:27:01 PM EDT [facility] Name Value Range Interpretation Code Description Data Ema rce(s) Supporting Document(s) HEMOGLOBIN A1C @ 6.6 % (4.0-6.0) H [facility] Performed using [employer] immunoassa y.Care must be taken when interpreting QkP2curipknp in patients with a hemoglobin variantor decreased erythrocyte lifespan. Values 5.7 - 6.4% suggest prediabetes.Values >=6.5% are diagnostic for diabetes.REFERENCE: DIABETES CARE 2018: 41(S13-S27).PERFORMED AT [address] [facility] [place] [address] [place] GLUCOSE 143 mg/dL [facility] [place] ID Date Data Source [id number] 11/13/2020 07:05:42 PM EDT [facility] [place] Name Value Range Interpretation Code Description Data Ema rce(s) Supporting Document(s) POC GLUCOSE 193 mg/dL (70-99) H [facility] PERFORMED BY CLINICAL STAFF ID Date Data Source [id number] 2020 11:32:00 AM EDT [facility] [facility], [place] [address]CVPWAAY NAME: SARINA LINARESDATE OF : 1940EPORT: OPERATIONPATIENT NUMBER: [id number] STATUS: IPMEDICAL RECORD NUMBER: [id number] OF ADMISSION: 11/13/2020ATE OF DISCHARGE:ROOM: 04DATE OF [...] crystalloid.COMPLICATIONS: None.DRAINS: A 10-mm GEOFF drain and 7-Micronesian single J stent bilaterally.SPECIMENS: Bladder, prostate, and [...] ureter, I then clipped with 10 mm [id number] clip and then transected and I continued [...] ileoconduit. Prior to closing the anastomosis, a 7-Micronesian single Jstent was advanced up from the [...] Kitchen, MDDictated: 11/13/2020 17:08DT: 11/13/2020 17:16Job #: [id number]: [facility] computer generated reports are not confirmed orauthenticated unless they are signed by the providerElectronically Authenticated by:KRISTA KITCHEN MD On 2020 11:32 AM EDT Name Value Range Interpretation Code Description Data Ema rce(s) Supporting Document(s) ID Date Data Source [id number] 11/13/2020 04:57:08 PM EDT [facility] Name Value Range Interpretation Code Description Data Ema rce(s) Supporting Document(s) POC GLUCOSE 166 mg/dL (70-99) H [facility] NOTIFIED PROVIDERNOTIFIED NURSEPERFORMED BY CLINICAL STAFF ID Date Data Source [id number] 11/13/2020 12:03:13 PM EDT [facility] Name Value Range Interpretation Code Description Data Ema rce(s) Supporting Document(s) POC GLUCOSE 134 mg/dL (70-99) H [facility] PERFORMED BY CLINICAL STAFF ID Date Data Source [id number] 11/13/2020 08:24:00 AM EDT [facility] Name Value Range Interpretation Code Description Data Ema rce(s) Supporting Document(s) Surgical pathology study Laboratory test result [facility]) LABORATORY [facility] [address] [place] [address] SURGICAL PATHOLOGY REPORT Patient Name:SARINA LINARES :1940 [...] Electronically Signed Out By Anisa Mcmillan D.O. [facility], PGwenC. [address] [place] [id number] Technical component performed at [facility], [facility], Histopathology, [address] [place] [address], [phone]. Reported at [facility], [address] [place] [address], [id number]. This report may include immunohistochemical or in-situ hybridization results. Testing was developed and the performance characteristics determined by [facility], [facility], as required by CLIA '88. The FDA has determined that approval for specific use is not necessary for clinical use. The quality of Hematoxylin and Eosin stains and as applicable, for all immunohistochemical and/or special stains, including positive and negative controls, were reviewed and considered appropriate. ICD codes: Z85.46 CPT4 codes: A: 34661J B: 80378H C: 12693Z ID Date Data Source [id number] 11/22/2020 12:14:35 AM EDT [facility] LABORATORY [address] [address]Idf# SURGICAL PATHOLOGY REPORTPatient Name:SARINA LINARES:2Received:11/14/2020ccession #:[id number](s) [...] By Anisa Mcmillan D.O. vlcPathology Associates of MeridianRose MarieGwen[address] [place] [id number] component performed [facility], [facility], [address] [place] [address], [phone].Reported at [facility], [address] [place] [address], [phone].This report may include immunohistochemical or in-situ hybridizationresults. Testing was developed and the performance characteristicsdetermined by [facility], as required byCLIA '88. The FDA has determined that approval for specific use is notnecessary for clinical use. The quality of Hematoxylin and Eosin stainsand as applicable, for all immunohistochemical and/or special stains,including positive and negative controls, were reviewed and consideredappropriate.ICD codes: Z85.46CPT4 codes: A: 66696QV: 81367JF: 24541R Name Value Range Interpretation Code Description Data Ema rce(s) Supporting Document(s) ID Date Data Source [id number] 11/06/2020 02:53:00 PM EDT [facility] Name Value Range Interpretation Code Description Data Ema rce(s) Supporting Document(s) Protein [Presence] in Urine by Test strip 30 mg/dL [facility] ([facility]) Glucose [Presence] in Urine Laboratory test result [facility] ([facility]) Ua Nitrite Laboratory test result [facility] ([facility]) Blood [Presence] in Urine by Visual Laboratory test result [facility] ([facility]) Ua Leuko Laboratory test result [facility] ([facility]) Ketones [Presence] in Urine by Test strip Laboratory test result [facility] ([facility]) Color of Urine Laboratory test result [facility] ([facility]) Ua Specific [place] 1.015 1.003-1.030 [facility] NT ([facility]) Clarity of Urine Laboratory test result [facility] ([facility]) pH of Urine by Test strip 7.0 5.0-7.5 [facility] ([facility]) Bilirubin.total [Presence] in Urine by Test strip Laboratory test res ult [facility] ([facility]) Urobilinogen [Mass/volume] in Urine by Test strip 0.2 E.U./dL 0.0-1.0 [facility] ([facility]) ID Date Data Source [id number] 11/06/2020 02:51:00 PM EDT [facility]) Name Value Range Interpretation Code Description Data Ema rce(s) Supporting Document(s) Bacteria identified in Urine by Culture Laboratory test result [facility] ([facility]) SPECIMEN DESCRIPTION URINE, COLLE CTION METHOD NOT SPECIFIED CULTURE RESULTS MIXED UROGENITAL DEIRDRE; PLEASE SUBMIT A NEW SPEC IMEN IF CLINICALLY INDICATED. REPORT STATUS FINAL 11/08/2020 ID Date Data Source [id number] 11/08/2020 07:41:09 AM EDT [facility] - CORE SPECIMEN DESCRIPTION URINE, COLLE CTION METHOD NOT SPECIFIEDCULTURE RESULTS MIXED UROGENITAL DEIRDRE; PLEASE SUBMIT A NEW SPEC IMEN IF CLINICALLY INDICATED.REPORT STATUS FINAL 11/08/2020 Name Value Range Interpretation Code Description Data Ema rce(s) Supporting Document(s) ID Date Data Source [id number] 11/06/2020 02:00:50 PM EDT [facility] SPEC EXP DATE 1PATI ENT ABO/Rh A POSITIVEANTIBODY SCREEN NEGATIVETESTING SITE PERFORMED AT [address] [place] [address] BANK COMMENT BLOOD TYPE CONFIRMED. Name Value Range Interpretation Code Description Data Ema rce(s) Supporting Document(s) ID Date Data Source [id number] 11/06/2020 01:36:41 PM EDT [facility] Name Value Range Interpretation Code Description Data Ema rce(s) Supporting Document(s) SODIUM 140 mmol/L (136-145) [facility] POTASSIUM 3.9 mmol/L (3.6-5.2) [facility] CHLORIDE 110 mmol/L (100-108) H [facility] CO2 27 mmol/L (22-31) [facility] ANION GAP 3 mmol/L (7-16) L [facility] UREA NITROGEN 16 mg/dL (7-24) [facility] CREATININE 0.77 mg/dL (0.80-1.30) L [facility] BUN/CREAT RATIO 20.8 RATIO (10.0-20.0) H [facility] GLUCOSE 116 mg/dL (70-99) H [facility] CALCIUM 10.1 mg/dL (8.4-10.2) [facility] TOTAL PROTEIN 7.1 g/dL (6.4-8.2) [facility] ALBUMIN 3.1 g/dL (3.2-4.5) L [facility] GLOBULIN 4.0 g/dL (2.7-4.3) [facility] ALB/GLOB RATIO 0.8 RATIO [facility] ALKALINE PHOSPHATASE 94 U/L (45-117) [facility] BILIRUBIN,TOTAL 0.6 mg/dL (0.0-1.0) [facility] PLEASE NOTE:Total bilirubin results may be falselyelevated in patients taking Eltrombopag. AST (SGOT) 38 U/L (11-39) [facility] ALT (SGPT) 31 U/L (12-78) [facility] GFR >60 ml/min/1.73m2 (>59) [facility] GFR ( AMER) >60 ml/min/1.73m2 (>59) [facility] GFR INTERPRETATION [facility] --NORMAL KIDNEY FUNCTION OR MILD DISEASE - GFR >OR= 60CHRONIC KIDNEY DISEASE - GFR 15 - 59RENAL FAILURE - GFR <15 Est. GFR calculation based on the MDRDstudy equation, which assumes a steadystate for creatinine. Est. GFR should notbe used for medication dosing. ID Date Data Source [id number] 11/06/2020 01:25:50 PM EDT [facility] Name Value Range Interpretation Code Description Data Ema rce(s) Supporting Document(s) HEMOGLOBIN A1C @ 6.7 % (4.0-6.0) H [facility] Performed using Siemens [place] immunoassa y.Care must be taken when interpreting [id number] in patients with a hemoglobin variantor decreased erythrocyte lifespan. Values 5.7 - 6.4% suggest prediabetes.Values >=6.5% are diagnostic for diabetes.REFERENCE: DIABETES CARE 2018: 41(S13-S27).PERFORMED AT [address] [place] [address] EST AVERAGE GLUCOSE 146 mg/dL [facility] ID Date Data Source [id number] 11/06/2020 01:09:23 PM EDT [facility] Name Value Range Interpretation Code Description Data Ema rce(s) Supporting Document(s) WBC 3.2 10*3/uL (4.1-11.0) L [facility] [place] RBC 3.44 10*6/uL (4.60-6.10) L [facility] HGB 9.6 g/dL (13.5-18.0) L [facility] HCT 28.9 % (41.0-53.0) L [facility] PERFORMED AT [address] [place] [address] MCV 84.2 fL (80.0-95.0) [facility] MCH 27.9 pg (27.0-32.0) [facility] MCHC 33.2 g/dL (32.0-36.0) [facility] RDW 15.8 % (10.5-14.5) H [facility] PLT 117 10*3/uL (150-450) L [facility] MPV 8.8 fL (7.1-10.7) [facility] NEUT % 69.0 % (35.0-75.0) [facility] LYMPH % 10.3 % (16.0-52.0) L [facility] MONO % 11.9 % (0.0-8.0) H [facility] EOS % 6.5 % (0.0-5.0) H [facility] BASO % 2.3 % (0.0-4.0) [facility] NEUT # 2.2 10*3/uL (1.8-7.7) [facility] LYMPH # 0.3 10*3/uL (1.2-4.8) L [facility] MONO # 0.4 10*3/uL (0.0-0.8) [facility] Eosinophils [#/volume] in Blood by Automated count 0.2 10*3/uL (0.0-0 .5) [facility] BASO # 0.1 10*3/uL (0.0-0.2) [facility] ID Date Data Source [id number] 07/20/2020 03:20:00 PM EST [facility] ([facility]) Name Value Range Interpretation Code Description Data Ema rce(s) Supporting Document(s) Bacteria identified in Urine by Culture Laboratory test result [facility] ([facility]) SPECIMEN DESCRIPTION CATHETER,IND WELLING CULTURE RESULTS MIXED UROGENITAL DEIRDRE; PLEASE SUBMIT A NEW SPEC IMEN IF CLINICALLY INDICATED. REPORT STATUS FINAL 07/22/2020 ID Date Data Source [id number] 07/22/2020 09:37:50 AM EST [facility] - CORE SPECIMEN DESCRIPTION CATHETER,IND WELLINGCULTURE RESULTS MIXED UROGENITAL DEIRDRE; PLEASE SUBMIT A NEW SPEC IMEN IF CLINICALLY INDICATED.REPORT STATUS FINAL 07/22/2020 Name Value Range Interpretation Code Description Data Ema rce(s) Supporting Document(s) ID Date Data Source [id number] 07/20/2020 01:20:00 PM EST [facility] ([facility]) Name Value Range Interpretation Code Description Data Ema rce(s) Supporting Document(s) Glucose [Presence] in Urine Laboratory test result [facility] ([facility]) Protein [Presence] in Urine by Test strip 30 mg/dL [facility] ([facility]) Ua Nitrite Laboratory test result [facility] ([facility]) Ua Leuko Laboratory test result [facility] ([facility]) Color of Urine Laboratory test result [facility] ([facility]) Blood [Presence] in Urine by Visual Laboratory test result [facility] ([facility]) Ketones [Presence] in Urine by Test strip Laboratory test result [facility] ([facility]) Clarity of Urine Laboratory test result [facility] ([facility]) Ua Specific [place] 1.015 1.003-1.030 [facility] NT ([facility]) pH of Urine by Test strip 7.0 5.0-7.5 [facility] ([facility]) Bilirubin.total [Presence] in Urine by Test strip Laboratory test res ult [facility] ([facility]) Urobilinogen [Mass/volume] in Urine by Test strip 0.2 E.U./dL 0.0-1.0 [facility] ([facility]) ID Date Data Source [id number] 05/30/2020 02:17:00 PM EST [facility] ([facility]) Name Value Range Interpretation Code Description Data Ema rce(s) Supporting Document(s) Bacteria identified in Urine by Culture Laboratory test result [facility] ([facility]) <content>SPECIMEN DESCRIPTION CATHETER,INDWELLING</content>
<content>CULTURE [...]
<content>CEFTAROLINE 0.25 SUSCEPTIBLE</content> ID Date Data Source [id number] 06/03/2020 07:48:59 AM EST Laboratory [facility] [...] rce(s) Supporting Document(s) ID Date Data Source [id number] 05/30/2020 02:11:00 PM EST [facility]) Name Value Range Interpretation Code Description Data Ema rce(s) Supporting Document(s) Glucose [Presence] in Urine Laboratory test result [facility] ([facility]) Ua Nitrite Laboratory test result [facility] ([facility]) Protein [Presence] in Urine by Test strip 100 mg/dL [facility] ([facility]) Blood [Presence] in Urine by Visual Laboratory test result [facility] ([facility]) Ua Leuko Laboratory test result [facility] ([facility]) Color of Urine Laboratory test result [facility] ([facility]) Clarity of Urine Laboratory test result [facility] ([facility]) Ketones [Presence] in Urine by Test strip Laboratory test result [facility] ([facility]) Bilirubin.total [Presence] in Urine by Test strip Laboratory test res ult [facility] ([facility]) Ua Specific [place] 1.020 1.003-1.030 [facility] NT ([facility]) pH of Urine by Test strip 6.0 5.0-7.5 [facility] ([facility]) Urobilinogen [Mass/volume] in Urine by Test strip 1.0 E.U./dL 0.0-1.0 [facility] ([facility]) ID Date Data Source [id number] 03/22/2020 11:21:00 AM EDT [facility] ([facility]) Name Value Range Interpretation Code Description Data Ema rce(s) Supporting Document(s) Glucose [Presence] in Urine Laboratory test result [facility] ([facility]) Protein [Presence] in Urine by Test strip Laboratory test result [facility] ([facility]) Ua Nitrite Laboratory test result [facility] ([facility]) Ua Leuko Laboratory test result [facility] ([facility]) Blood [Presence] in Urine by Visual Laboratory test result [facility] ([facility]) Color of Urine Laboratory test result [facility] ([facility]) Clarity of Urine Laboratory test result [facility] ([facility]) Ketones [Presence] in Urine by Test strip Laboratory test result [facility] ([facility]) Ua Specific [place] Laboratory test result 1.003-1.030 [facility] ([facility]) Bilirubin.total [Presence] in Urine by Test strip Laboratory test res ult [facility] ([facility]) pH of Urine by Test strip 5.5 5.0-7.5 [facility] ([facility]) Urobilinogen [Mass/volume] in Urine by Test strip 0.2 E.U./dL 0.0-1.0 [facility] ([facility]) ID Date Data Source [id number] 03/20/2020 03:15:00 PM EDT [facility] ([facility]) Name Value Range Interpretation Code Description Data Ema rce(s) Supporting Document(s) Bacteria identified in Urine by Culture Laboratory test result [facility] ([facility]) SPECIMEN DESCRIPTION URINE, COLLE CTION METHOD NOT SPECIFIED CULTURE RESULTS >100,000 CFU/ML AEROCOCCUS URINAE NOTE: THERE ARE NO CLSI APPROVED CRITERIA FOR TESTING THE SUSCEPTIBILITY OF THIS ORGANISM TO ANTIBIOTICS. CONSULTATION WITH AN INFECTIOUS DISEASE PHYSICIAN OR PHARMACIST MAY BE WARRANTED IF THIS ORGANISM IS CLINICALLY SIGNIFICANT. REPORT STATUS FINAL 03/22/2020 ID Date Data Source [id number] 03/22/2020 09:29:42 AM EDT [facility] - CORE SPECIMEN DESCRIPTION URINE, COLLE [...] rce(s) Supporting Document(s) ID Date Data Source [id number] 03/20/2020 02:44:00 PM EDT [facility] ([facility]) Name Value Range Interpretation Code Description Data Ema rce(s) Supporting Document(s) Glucose [Presence] in Urine 100 mg/dL [facility] ([facility]) Ua Leuko Laboratory test result [facility] ([facility]) Protein [Presence] in Urine by Test strip Laboratory test result [facility] ([facility]) Ua Nitrite Laboratory test result [facility] ([facility]) Color of Urine Laboratory test result [facility] ([facility]) Blood [Presence] in Urine by Visual Laboratory test result [facility] ([facility]) Ketones [Presence] in Urine by Test strip Laboratory test result [facility] ([facility]) Clarity of Urine Laboratory test result [facility] ([facility]) Ua Specific [place] 1.015 1.003-1.030 [facility] NT ([facility]) pH of Urine by Test strip 7.0 5.0-7.5 [facility] ([facility]) Bilirubin.total [Presence] in Urine by Test strip Laboratory test res ult [facility] ([facility]) Urobilinogen [Mass/volume] in Urine by Test strip 1.0 E.U./dL 0.0-1.0 [facility] ([facility]) ID Date Data Source [id number] 03/16/2020 02:59:00 PM EDT [facility] ([facility]) Name Value Range Interpretation Code Description Data Ema rce(s) Supporting Document(s) Bacteria identified in Urine by Culture Laboratory test result [facility] ([facility]) <content>SPECIMEN DESCRIPTION URI NE, COLLECTION METHOD NOT SPECIFIED</content>
<content>CULTURE RESULTS <10,000 CFU/ML REPRESENTING URETHRAL DEIRDRE</content>
<content>REPORT STATUS FINAL 03/18/2020</content> ID Date Data Source [id number] 03/18/2020 07:58:46 AM EDT [facility] - CORE SPECIMEN DESCRIPTION URINE, COLLE CTION METHOD NOT SPECIFIEDCULTURE RESULTS <10,000 CFU/ML REPRESENTING URETHRAL [place] STATUS FINAL 03/18/2020 Name Value Range Interpretation Code Description Data Ema rce(s) Supporting Document(s) ID Date Data Source [id number] 03/16/2020 02:50:00 PM EDT [facility] ([facility]) Name Value Range Interpretation Code Description Data Ema rce(s) Supporting Document(s) Glucose [Presence] in Urine Laboratory test result [facility] ([facility]) Protein [Presence] in Urine by Test strip Laboratory test result [facility] ([facility]) Ua Nitrite Laboratory test result [facility] ([facility]) Ua Leuko Laboratory test result [facility] ([facility]) Ketones [Presence] in Urine by Test strip Laboratory test result [facility] ([facility]) Blood [Presence] in Urine by Visual Laboratory test result [facility] ([facility]) Color of Urine Laboratory test result [facility] ([facility]) Clarity of Urine Laboratory test result [facility] ([facility]) Ua Specific [place] 1.015 1.003-1.030 [facility] NT ([facility]) Bilirubin.total [Presence] in Urine by Test strip Laboratory test res ult [facility] ([facility]) pH of Urine by Test strip 7.0 5.0-7.5 [facility] ([facility]) Urobilinogen [Mass/volume] in Urine by Test strip 0.2 E.U./dL 0.0-1.0 [facility] ([facility]) ID Date Data Source [id number] 03/14/2020 10:54:17 AM EDT [facility]FORMATION[facility] Name Date of Age Gend*PT [id number] Sarina Linares 1940 79 years M SDCPT Location Admission Date/Time Visit ID Attending ProviderASNE AMBULATO* 03/02/20 0825 --- --- EPI ID CSN Admitting Provider [id number] Mar Castaneda MD([id number]) [place] [address] OPERATIVE REPORT OPNAME: SARINA LINARES#: [id number] #: [id number] ADMISSION DATE: 03/02/2020DOB: 1940 SEX: M PT TYPE: H SURACCT #: [id number] CARE PHYSICIAN:REFERRING PHYSICIAN: MAR ALICEAATE OF OPERATION: [...] furthertherapy, risk of general anesthesia, PE, CVA, AL, systemic effect of them edication and paralysis of the bladder. All questions were answered.Informed consent was obtained.DESCRIPTION OF PROCEDURE:The patient was prepped and draped in normal sterile fashion with the areaof interest being the genitalia exposed in the dorsal lithotomy positionafter induction of adequate MAC anesthetic. The patient did receivepreoperative IV antibiotics as well as pneumatic compression stockingsprior to induction of anesthesia.A 19-Micronesian rigid cystoscope was advanced through the urethra [...] He already has antibiotics at home.Recommendation for [id number] pain medications for any discomfort.He should remain well hydrated.RECOMMENDATIONS:No heavy lifting, straining, exercise. No driving on pain medication. Hewill follow up in the office in 2 weeks as scheduled. Findings werereviewed with the patient's over the phone postoperatively.TIMOTEO DAVIDSON/ARCADIO Job #: [id number] DOC #: [id number] Name Value Range Interpretation Code Description Data Ema rce(s) Supporting Document(s) ID Date Data Source [id number] 03/02/2020 11:53:00 AM EDT [facility] ([facility]) Name Value Range Interpretation Code Description Data Ema rce(s) Supporting Document(s) Composition in Stone Laboratory test result [facility] ([facility]) Calculi composed primarily of: [...] composition determined by FTIR analysis. Performed By: [facility] [address] [place] [id number] Carbonation Tester: Flor Rosales MD Weight of Unspecified specimen 76 mg [facility] ([facility]) Number of Stones 2 [facility] ([facility]) Size [Entitic volume] of Stone Laboratory test result [facility] ([facility]) Unit: mm Appearance of Stone Laboratory test result [facility] ([facility]) Specimen consists of two, various sized (1 mm to 9 mm), montero, irregular calculi fragments. ID Date Data Source [id number] 03/07/2020 07:23:28 PM EDT [facility] Name Value Range Interpretation Code Description Data Ema rce(s) Supporting Document(s) COMPOSITION [facility] See Note Calculi composed primarily of: [...] composition determined by FTIR analysis. Performed By: [facility] [address] [place] [id number] Carbonation Tester: Flor Rosales MD MASS 76 mg [facility] CALCULI NUMBER 2 [facility] CALCULI SIZE [facility] VariousUnit: mm CALCULI DESCRIPTION [facility] See Note Specimen consists of two, vario us sized (1 mm to 9 mm), montero, irregular calculi fragments. ID Date Data Source [id number] 03/02/2020 10:50:03 AM EDT [facility] INFORMATIONPatient MRN Name Date of Age Gend*PT [id number] Sarina Linares 1940 79 years M SDCPT Location Admission Date/Time Visit ID Attending ProviderASNE AMBULATO* 03/02/20 0825 --- Mar Castaneda MD([id number]) EPI ID CSN Admitting Provider [id number] Mar Castaneda MD([id number])H&P reviewed. The patient was examined and there are no changes to the H&P.The H&P that is being updated is available for review and was brought in Nba Castaneda MD10:50 AM Name Value Range Interpretation Code Description Data Ema rce(s) Supporting Document(s) ID Date Data Source [id number] 02/26/2020 09:30:00 AM EDT [facility] Name Value Range Interpretation Code Description Data Ema rce(s) Supporting Document(s) SARS coronavirus 2 RNA [facility] This lab was ordered by [facility] and reported by [facility]. ID Date Data Source [id number] 02/27/2020 12:07:19 PM EDT [facility] [place] Name Value Range Interpretation Code Description Data Ema rce(s) Supporting Document(s) SARS-COV-2 [facility] Paulette Not DetectedReference range: Not Detecte d This nucleic acid amplification test was developed and its performance characteristics determined by [employer]. Nucleic acid amplification tests include PCR and [...] detected) result in this assay. Performed At: [address] [id number] Osvaldo Dobson MD Ph:[phone] ID Date Data Source [id number] 02/24/2020 03:03:00 PM EDT [facility] ([facility] Name Value Range Interpretation Code Description Data Ema rce(s) Supporting Document(s) Bacteria identified in Urine by Culture Laboratory test result [facility] ([facility]) <content>SPECIMEN DESCRIPTION URI NE, COLLECTION METHOD NOT SPECIFIED</content>
<content>CULTURE RESULTS >10,000 TO <100,000 CFU/ML AEROCOCCUS URINAE</content>
<content>NOTE: THERE ARE NO CLSI APPROVED CRITERIA FOR TESTING THE</content>
<content>SUSCEPTIBILITY OF THIS ORGANISM TO ANTIBIOTICS. CONSULTATION WITH AN</content>
<content>INFECTIOUS DISEASE PHYSICIAN OR PHARMACIST MAY BE WARRANTED IF THIS</content>
<content>ORGANISM IS CLINICALLY SIGNIFICANT.</content>
<content> </content>
<content>REPORT STATUS FINAL 02/26/2020</content> ID Date Data Source [id number] 02/26/2020 12:44:43 PM EDT [facility] - CORE SPECIMEN DESCRIPTION URINE, COLLE [...] rce(s) Supporting Document(s) ID Date Data Source [id number] 02/24/2020 02:48:00 PM EDT [facility] ([facility]) Name Value Range Interpretation Code Description Data Ema rce(s) Supporting Document(s) Protein [Presence] in Urine by Test strip Laboratory test result [facility] ([facility]) Glucose [Presence] in Urine 100 mg/dL [facility] ([facility]) Ua Nitrite Laboratory test result [facility] ([facility]) Ua Leuko Laboratory test result [facility] ([facility]) Color of Urine Laboratory test result [facility] ([facility]) Blood [Presence] in Urine by Visual Laboratory test result [facility] ([facility]) Ua Specific [place] 1.020 1.003-1.030 [facility] NT ([facility]) Ketones [Presence] in Urine by Test strip Laboratory test result [facility] ([facility]) Clarity of Urine Laboratory test result [facility] ([facility]) Bilirubin.total [Presence] in Urine by Test strip Laboratory test res ult [facility] ([facility]) pH of Urine by Test strip 6.0 5.0-7.5 [facility] ([facility]) Urobilinogen [Mass/volume] in Urine by Test strip 0.2 E.U./dL 0.0-1.0 [facility] ([facility]) ID Date Data Source [id number] 02/21/2020 10:48:00 AM EDT [facility] ([facility]) Name Value Range Interpretation Code Description Data Ema rce(s) Supporting Document(s) Bacteria identified in Urine by Culture Laboratory test result [facility] ([facility]) Procedure Social History Code Duration Value Status Description Data Source(s ) Smoking 04/02/2021 12:00:00 AM EDT Never Smoker completed Never S moker eCW1 ([facility]) Smoking 03/20/2021 12:00:00 AM EDT Never Smoked Cigarettes com pleted Never Smoked Cigarettes [facility] ([facility]) Smoking 03/05/2021 12:00:00 AM EDT Never Smoker completed Never S moker eCW1 ([facility]) Smoking 03/05/2021 12:00:00 AM EDT Never Smoker completed Never S moker eCW1 ([facility]) Smoking 03/05/2021 12:00:00 AM EDT Never Smoker completed Never S moker eCW1 ([facility]) Smoking 03/05/2021 12:00:00 AM EDT Never Smoker completed Never S moker eCW1 ([facility]) Smoking 03/05/2021 12:00:00 AM EDT Never Smoker completed Never S moker eCW1 ([facility]) Smoking 02/20/2021 12:00:00 AM EDT Never Smoker completed Never S moker eCW1 ([facility]) Smoking 01/31/2021 12:58:00 AM EDT Denies Ever Smoked complete d Denies Ever Smoked [facility] Smoking 01/01/2021 12:00:00 AM EDT Never Smoker completed Never S moker eCW1 ([facility]) Smoking 01/01/2021 12:00:00 AM EDT Never Smoker completed Never S moker eCW1 ([facility]) Smoking 01/01/2021 12:00:00 AM EDT Never Smoker completed Never S moker eCW1 ([facility]) Smoking 01/01/2021 12:00:00 AM EDT Never Smoker completed Never S moker eCW1 ([facility]) Smoking 01/01/2021 12:00:00 AM EDT Never Smoker completed Never S moker eCW1 ([facility]) Smoking 01/01/2021 12:00:00 AM EDT Never Smoker completed Never S moker eCW1 ([facility]) Smoking 01/01/2021 12:00:00 AM EDT Never Smoker completed Never S moker eCW1 ([facility]) Smoking 01/01/2021 12:00:00 AM EDT Never Smoker completed Never S moker eCW1 ([facility]) Smoking 11/28/2020 12:00:00 AM EDT Never Smoker completed Never S moker eCW1 ([facility]) Smoking 11/28/2020 12:00:00 AM EDT Never Smoker completed Never S moker eCW1 ([facility]) Smoking 11/28/2020 12:00:00 AM EDT Never Smoker completed Never S moker eCW1 ([facility]) Smoking 11/28/2020 12:00:00 AM EDT Never Smoker completed Never S moker eCW1 ([facility]) Smoking 11/21/2020 04:02:00 PM EDT Denies Ever Smoked complete d Denies Ever Smoked [facility] Smoking 11/11/2020 12:00:00 AM EDT Never Smoker completed Never S moker eCW1 ([facility]) Smoking 11/11/2020 12:00:00 AM EDT Never Smoker completed Never S moker eCW1 ([facility]) Smoking 11/07/2020 12:00:00 AM EDT Never Smoker completed Never S moker eCW1 ([facility]) Smoking 05/11/2020 12:00:00 AM EST Never Smoker completed Never S moker eCW1 ([facility]) Smoking 05/11/2020 12:00:00 AM EST Never Smoker completed Never S moker eCW1 ([facility]) Smoking 05/11/2020 12:00:00 AM EST Never Smoker completed Never S moker eCW1 ([facility]) Smoking 05/11/2020 12:00:00 AM EST Never Smoker completed Never S moker eCW1 ([facility]) Vital Signs ID Date Data Source UNK Name Value Range Interpretation Code Description Data Source(s) Body weight 175.0 [lb_av] 175.0 [lb_av] eCW1 ([facility]) Diastolic blood pressure 56 mm[Hg] 56 mm[Hg] eCW1 ([facility]) Body height 71 [in_i] 71 [in_i] eCW1 ([facility]) Body mass index (BMI) [Ratio] 24.40 kg/m2 24.40 kg/m2 eCW1 ([facility]) Heart rate 99 /min 99 /min eCW1 (Counts include 234 beds at the [facility]) Respiratory rate 18 /min 18 /min eCW1 ([facility]) Body temperature 97.1 [degF] 97.1 [degF] eCW1 ( [facility]) Systolic blood pressure 102 mm[Hg] 102 mm[Hg] e CW1 ([facility]) Body weight 79.380 kg 79.380 kg [facility] ([facility] Body mass index (BMI) [Ratio] 24.4 kg/m2 24.4 k g/m2 [facility] ([facility]) Systolic blood pressure 125 mm[Hg] 125 mm[Hg] M EDENT ([facility]) Diastolic blood pressure 60 mm[Hg] 60 mm[Hg] [facility] ([facility]) Heart rate 97 /min 97 /min [facility] ([facility] Body height 71 [in_i] 71 [in_i] [facility] ([facility]) 5'11" Body weight 175.00 [lb_av] 175.00 [lb_av] MEDEN T ([facility]) Body mass index (BMI) [Ratio] 27.48 kg/m2 No rmal (applies to non-numeric results) 27.48 kg/m2 [facility] Body height 179.2224 cm Normal (applies to non-numeric res ults) 179.2224 cm [facility] Body weight Measured 89.358 kg Normal (applies to n on-numeric results) 89.358 kg [facility] Systolic blood pressure 117 mm[Hg] Normal (applies t o non-numeric results) 117 mm[Hg] [facility] Body temperature 36.5 ifeanyi Normal (applies to non-numeric results) 36.5 ifeanyi [facility] Diastolic blood pressure 54 mm[Hg] Normal (applies to non-numeric results) 54 mm[Hg] [facility] Deprecated Oxygen saturation in Capillary blood by Oximetry 96 % Normal (applies to non-numeric results) 96 % [facility] Heart rate 83 min Normal (applies to non-numeric resul ts) 83 min [facility] Respiratory rate 18 min Normal (applies to non-numeric results) 18 min [facility] Body weight 199.4 [lb_av] 199.4 [lb_av] eCW1 ([facility]) Body height 71 [in_i] 71 [in_i] eCW1 ([facility]) Body mass index (BMI) [Ratio] 27.81 kg/m2 27.81 kg/m2 W1 ([facility]) Heart rate 105 /min 105 /min eCW1 (Counts include 234 beds at the [facility]) Respiratory rate 18 /min 18 /min eCW1 ([facility]) Body temperature 97.8 [degF] 97.8 [degF] eCW1 ( [facility]) Systolic blood pressure 124 mm[Hg] 124 mm[Hg] e CW1 ([facility]) Diastolic blood pressure 58 mm[Hg] 58 mm[Hg] eCW1 ([facility]) Oxygen saturation in Arterial blood by Pulse oximetry 95 % 95 % [facility] ([facility]) Respiratory rate 18 /min 18 /min [facility] ( [facility]) Body height 71 [in_i] 71 [in_i] [facility] ([facility] 5'11" Body weight 198.00 [lb_av] 198.00 [lb_av] MEDEN T ([facility]) Body weight 89.813 kg 89.813 kg [facility] ([facility] Body mass index (BMI) [Ratio] 27.6 kg/m2 27.6 k g/m2 [facility] ([facility]) Systolic blood pressure 142 mm[Hg] 142 mm[Hg] M EDENT ([facility]) Diastolic blood pressure 66 mm[Hg] 66 mm[Hg] [facility] ([facility]) Heart rate 105 /min 105 /min [facility] ([facility] Body temperature 97.7 [degF] 97.7 [degF] [facility] ([facility]) Systolic blood pressure 136 mm[Hg] Normal (applies t o non-numeric results) 136 mm[Hg] [facility] Diastolic blood pressure 70 mm[Hg] Normal (applies to non-numeric results) 70 mm[Hg] [facility] Heart rate 90 min Normal (applies to non-numeric resul ts) 90 min [facility] Deprecated Oxygen saturation in Capillary blood by Oximetry 98 % Normal (applies to non-numeric results) 98 % [facility] Respiratory rate 16 min Normal (applies to non-numeric results) 16 min [facility] Systolic blood pressure 136 mm[Hg] 136 mm[Hg] M EDENT ([facility]) Diastolic blood pressure 70 mm[Hg] 70 mm[Hg] [facility] ([facility]) Heart rate 90 /min 90 /min [facility] ([facility]) Respiratory rate 16 /min 16 /min [facility] ( [facility]) Oxygen saturation in Arterial blood by Pulse oximetry 98 % 98 % [facility] ([facility]) Body mass index (BMI) [Ratio] 28.0 kg/m2 No rmal (applies to non-numeric results) 28.0 kg/m2 [facility] Body height 179.2224 cm Normal (applies to non-numeric res ults) 179.2224 cm [facility] Body temperature 36.4 ifeanyi Normal (applies to non-numeric results) 36.4 ifeanyi [facility] Body weight Measured 201 [lb_av] Normal (applies to n on-numeric results) 201 [lb_av] [facility] Body height 71 [in_i] 71 [in_i] [facility] ([facility] 5'11" Body weight 95.256 kg 95.256 kg [facility] ([facility] Body weight 210.00 [lb_av] 210.00 [lb_av] MEDEN T ([facility]) Body mass index (BMI) [Ratio] 29.3 kg/m2 29.3 k g/m2 [facility] ([facility]) Systolic blood pressure 128 mm[Hg] 128 mm[Hg] M EDENT ([facility]) Heart rate 109 /min 109 /min [facility] ([facility] Diastolic blood pressure 70 mm[Hg] 70 mm[Hg] [facility] ([facility]) Body weight 223.2 [lb_av] 223.2 [lb_av] eCW1 ([facility]) Body height 71 [in_i] 71 [in_i] eCW1 ([facility]) Body mass index (BMI) [Ratio] 31.13 kg/m2 31.13 kg/m2 eCW1 ([facility]) Heart rate 116 /min 116 /min eCW1 (Counts include 234 beds at the [facility]) Respiratory rate 18 /min 18 /min eCW1 ([facility]) Body temperature 97.8 [degF] 97.8 [degF] eCW1 ( [facility]) Systolic blood pressure 104 mm[Hg] 104 mm[Hg] e CW1 ([facility]) Diastolic blood pressure 54 mm[Hg] 54 mm[Hg] eCW1 ([facility]) Body height 71 [in_i] 71 [in_i] [facility] ([facility] 5'11" Heart rate 110 /min 110 /min [facility] ([facility] Body weight 216.00 [lb_av] 216.00 [lb_av] MEDEN T ([facility]) Body weight 97.978 kg 97.978 kg [facility] ([facility] Body mass index (BMI) [Ratio] 30.1 kg/m2 30.1 k g/m2 [facility] ([facility]) Systolic blood pressure 133 mm[Hg] 133 mm[Hg] M EDENT ([facility]) Diastolic blood pressure 64 mm[Hg] 64 mm[Hg] [facility] ([facility]) Body weight 216.0 [lb_av] 216.0 [lb_av] eCW1 ([facility]) Body height 71 [in_i] 71 [in_i] eCW1 ([facility]) Body mass index (BMI) [Ratio] 30.12 kg/m2 30.12 kg/m2 eCW1 ([facility]) Heart rate 97 /min 97 /min eCW1 (Counts include 234 beds at the [facility]) Respiratory rate 18 /min 18 /min eCW1 ([facility]) Body temperature 97.4 [degF] 97.4 [degF] eCW1 ( [facility]) Systolic blood pressure 104 mm[Hg] 104 mm[Hg] e CW1 ([facility]) Diastolic blood pressure 52 mm[Hg] 52 mm[Hg] eCW1 ([facility]) Systolic blood pressure 160 mm[Hg] Normal (applies t o non-numeric results) 160 mm[Hg] [facility] Diastolic blood pressure 69 mm[Hg] Normal (applies to non-numeric results) 69 mm[Hg] [facility] Heart rate 83 min Normal (applies to non-numeric resul ts) 83 min [facility] Respiratory rate 18 min Normal (applies to non-numeric results) 18 min [facility] Body temperature 36.5 ifeanyi Normal (applies to non-numeric results) 36.5 ifeanyi [facility] Systolic blood pressure 160 mm[Hg] 160 mm[Hg] M EDENT ([facility]) Diastolic blood pressure 69 mm[Hg] 69 mm[Hg] [facility] ([facility]) Heart rate 83 /min 83 /min [facility] ([facility] Respiratory rate 18 /min 18 /min [facility] ( [facility]) Body temperature 36.5 [degF] 36.5 [degF] [facility] ([facility]) Deprecated Oxygen saturation in Capillary blood by Oximetry 99 % Normal (applies to non-numeric results) 99 % [facility] Oxygen saturation in Arterial blood by Pulse oximetry 99 % 99 % [facility] ([facility]) Body height 179.2224 cm Normal (applies to non-numeric res ults) 179.2224 cm [facility] Body weight Measured 89.9 kg Normal (applies to non-num gayatri results) 89.9 kg [facility] Body mass index (BMI) [Ratio] 27.64 kg/m2 No rmal (applies to non-numeric results) 27.64 kg/m2 [facility] Body weight 209.2 [lb_av] 209.2 [lb_av] eCW1 ([facility]) Body height 71 [in_i] 71 [in_i] eCW1 ([facility]) Body mass index (BMI) [Ratio] 29.17 kg/m2 29.17 kg/m2 eCW1 ([facility]) Heart rate 94 /min 94 /min eCW1 (Counts include 234 beds at the [facility]) Respiratory rate 18 /min 18 /min eCW1 ([facility]) Body temperature 97.7 [degF] 97.7 [degF] eCW1 ( [facility]) Systolic blood pressure 124 mm[Hg] 124 mm[Hg] e CW1 ([facility]) Diastolic blood pressure 64 mm[Hg] 64 mm[Hg] eCW1 ([facility]) Body weight 92.081 kg 92.081 kg [facility] ([facility] Body mass index (BMI) [Ratio] 28.3 kg/m2 28.3 k g/m2 [facility] ([facility]) Systolic blood pressure 149 mm[Hg] 149 mm[Hg] M EDENT ([facility]) Diastolic blood pressure 75 mm[Hg] 75 mm[Hg] [facility] ([facility]) Heart rate 86 /min 86 /min [facility] ([facility] Body height 71 [in_i] 71 [in_i] [facility] ([facility] 5'11" Body weight 203.00 [lb_av] 203.00 [lb_av] MEDEN T ([facility]) Body height 71 [in_i] 71 [in_i] [facility] ([facility] 5'11" Body weight 240.00 [lb_av] 240.00 [lb_av] MED[facility] T ([facility]) Body weight 108.864 kg 108.864 kg [facility] ([facility] Body mass index (BMI) [Ratio] 33.5 kg/m2 33.5 k g/m2 [facility] ([facility]) Body temperature 97.6 [degF] 97.6 [degF] [facility] ([facility]) Body weight 211 [lb_av] 211 [lb_av] eCW1 ([facility]) Body height 71 [in_i] 71 [in_i] eCW1 ([facility]) Body mass index (BMI) [Ratio] 29.43 kg/m2 29.43 kg/m2 eCW1 ([facility]) Systolic blood pressure 146 mm[Hg] 146 mm[Hg] e CW1 ([facility]) Diastolic blood pressure 82 mm[Hg] 82 mm[Hg] eCW1 ([facility]) Body weight 211 [lb_av] 211 [lb_av] eCW1 ([facility]) Body mass index (BMI) [Ratio] 29.43 kg/m2 29.43 kg/m2 eCW1 ([facility]) Heart rate 92 /min 92 /min eCW1 (Counts include 234 beds at the [facility]) Respiratory rate 18 /min 18 /min eCW1 ([facility]) Body temperature 97.3 [degF] 97.3 [degF] eCW1 ( [facility]) Body height 71 [in_i] 71 [in_i] eCW1 ([facility]) Diastolic blood pressure 78 mm[Hg] 78 mm[Hg] eCW1 ([facility]) Systolic blood pressure 142 mm[Hg] 142 mm[Hg] e CW1 ([facility]) Body height 71 [in_i] 71 [in_i] [facility] ([facility] 5'11" Body weight 240.00 [lb_av] 240.00 [lb_av] MEDEN T ([facility]) Body weight 108.864 kg 108.864 kg [facility] ([facility]) Body mass index (BMI) [Ratio] 33.5 kg/m2 33.5 k g/m2 [facility] ([facility]) Systolic blood pressure 155 mm[Hg] 155 mm[Hg] M EDENT ([facility]) Diastolic blood pressure 67 mm[Hg] 67 mm[Hg] [facility] ([facility]) Heart rate 101 /min 101 /min [facility] ([facility] Heart rate 90 /min 90 /min [facility] ([facility] Body height 71 [in_i] 71 [in_i] [facility] ([facility] 5'11" Body weight 240.00 [lb_av] 240.00 [lb_av] MEDEN T ([facility]) Body weight 108.864 kg 108.864 kg [facility] ([facility]) Body mass index (BMI) [Ratio] 33.5 kg/m2 33.5 k g/m2 [facility] ([facility]) Systolic blood pressure 159 mm[Hg] 159 mm[Hg] M EDENT ([facility]) Diastolic blood pressure 70 mm[Hg] 70 mm[Hg] [facility] ([facility]) Body weight 108.864 kg 108.864 kg [facility] ([facility]) Body mass index (BMI) [Ratio] 33.5 kg/m2 33.5 k g/m2 [facility] ([facility]) Body temperature 97.9 [degF] 97.9 [degF] [facility] ([facility]) Heart rate 100 /min 100 /min [facility] ([facility]) Systolic blood pressure 146 mm[Hg] 146 mm[Hg] M EDENT ([facility]) Diastolic blood pressure 72 mm[Hg] 72 mm[Hg] [facility] ([facility]) Body height 71 [in_i] 71 [in_i] [facility] ([facility] [employer]) 5'11" Body weight 240.00 [lb_av] 240.00 [lb_av] MED[facility] T ([facility]) ID Date Data Source [id number] 04/09/2021 08:44:03 AM [facility] Name Value Range Interpretation Code Description Data Source(s) WEIGHT RECORDED [address] [facility] Body height Measured 71 [facility] 71 [facility] Patient Treatment Plan of Care Planned Activity Planned Date Details Description Data Source (s) Abdominal Binder/Elastic 3XL - 03/05/2021 12:00:00 AM EDT eCW1 ([facility]) Abdominal Binder/Elastic 3XL - 03/05/2021 12:00:00 AM EDT eCW1 ([facility]) Abdominal Binder/Elastic 3XL - 03/05/2021 12:00:00 AM EDT eCW1 ([facility]) Abdominal Binder/Elastic 3XL - 03/05/2021 12:00:00 AM EDT eCW1 ([facility]) Abdominal Binder/Elastic 3XL - 03/05/2021 12:00:00 AM EDT eCW1 ([facility]) HydrOXYzine HCl 10 MG 01/08/2021 01:00:00 AM EDT NETSMART ([facility]) Hydroxyzine Hydrochloride 10 MG Oral Tablet 01/08/2021 12:00:00 AM EDT eCW1 ([facility]) Hydroxyzine Hydrochloride 10 MG Oral Tablet 01/08/2021 12:00:00 AM EDT eCW1 ([facility]) Hydroxyzine Hydrochloride 10 MG Oral Tablet 01/08/2021 12:00:00 AM EDT eCW1 ([facility]) Hydroxyzine Hydrochloride 10 MG Oral Tablet 01/08/2021 12:00:00 AM EDT eCW1 ([facility]) Hydroxyzine Hydrochloride 10 MG Oral Tablet 01/08/2021 12:00:00 AM EDT eCW1 ([facility]) Hydroxyzine Hydrochloride 10 MG Oral Tablet 01/08/2021 12:00:00 AM EDT eCW1 ([facility]) Hydroxyzine Hydrochloride 10 MG Oral Tablet 01/08/2021 12:00:00 AM EDT eCW1 ([facility]) Hydroxyzine Hydrochloride 10 MG Oral Tablet 01/08/2021 12:00:00 AM EDT eCW1 ([facility]) Hydroxyzine Hydrochloride 10 MG Oral Tablet 01/08/2021 12:00:00 AM EDT eCW1 ([facility]) Hydroxyzine Hydrochloride 10 MG Oral Tablet 01/08/2021 12:00:00 AM EDT eCW1 ([facility]) Hydroxyzine Hydrochloride 10 MG Oral Tablet 01/08/2021 12:00:00 AM EDT eCW1 ([facility]) Hydroxyzine Hydrochloride 10 MG Oral Tablet 01/08/2021 12:00:00 AM EDT eCW1 ([facility]) Hydroxyzine Hydrochloride 10 MG Oral Tablet 01/08/2021 12:00:00 AM EDT eCW1 ([facility]) Hydroxyzine Hydrochloride 10 MG Oral Tablet 01/08/2021 12:00:00 AM EDT eCW1 ([facility]) Losartan Potassium 100 MG 01/07/2021 01:00:00 AM EDT NETSMART ([facility]) Spironolactone 25 MG 01/07/2021 01:00:00 [facility] Losartan Potassium 50 MG Oral Tablet 01/01/2021 12:00:00 AM EDT eCW1 ([facility]) Spironolactone 25 MG Oral Tablet 01/01/2021 12:00:00 AM EDT eCW1 ([facility]) Spironolactone 25 MG Oral Tablet 01/01/2021 12:00:00 AM EDT eCW1 ([facility]) Spironolactone 25 MG Oral Tablet 01/01/2021 12:00:00 AM EDT eCW1 ([facility]) Spironolactone 25 MG Oral Tablet 01/01/2021 12:00:00 AM EDT eCW1 ([facility]) Losartan Potassium 100 MG Oral Tablet 01/01/2021 12:00:00 AM EDT eCW1 ([facility]) Spironolactone 25 MG Oral Tablet 01/01/2021 12:00:00 AM EDT eCW1 ([facility]) Losartan Potassium 100 MG Oral Tablet 01/01/2021 12:00:00 AM EDT eCW1 ([facility]) Spironolactone 25 MG Oral Tablet 01/01/2021 12:00:00 AM EDT eCW1 ([facility]) Losartan Potassium 100 MG Oral Tablet 01/01/2021 12:00:00 AM EDT eCW1 ([facility]) Spironolactone 25 MG Oral Tablet 01/01/2021 12:00:00 AM EDT eCW1 ([facility]) Spironolactone 25 MG Oral Tablet 01/01/2021 12:00:00 AM EDT eCW1 ([facility]) Losartan Potassium 100 MG Oral Tablet 01/01/2021 12:00:00 AM EDT eCW1 ([facility]) Spironolactone 25 MG Oral Tablet 01/01/2021 12:00:00 AM EDT eCW1 ([facility]) Losartan Potassium 100 MG Oral Tablet 01/01/2021 12:00:00 AM EDT eCW1 ([facility]) Spironolactone 25 MG Oral Tablet 01/01/2021 12:00:00 AM EDT eCW1 ([facility]) Losartan Potassium 100 MG Oral Tablet 01/01/2021 12:00:00 AM EDT eCW1 ([facility]) Spironolactone 25 MG Oral Tablet 01/01/2021 12:00:00 AM EDT eCW1 ([facility]) Losartan Potassium 100 MG Oral Tablet 01/01/2021 12:00:00 AM EDT eCW1 ([facility]) Spironolactone 25 MG Oral Tablet 01/01/2021 12:00:00 AM EDT eCW1 ([facility]) Losartan Potassium 100 MG Oral Tablet 01/01/2021 12:00:00 AM EDT eCW1 ([facility]) Spironolactone 25 MG Oral Tablet 01/01/2021 12:00:00 AM EDT eCW1 ([facility]) Spironolactone 25 MG Oral Tablet 01/01/2021 12:00:00 AM EDT eCW1 ([facility]) Losartan Potassium 100 MG Oral Tablet 01/01/2021 12:00:00 AM EDT eCW1 ([facility]) Potassium Chloride 12/31/2020 01:00:00 AM EDT NETSMART ([facility]) Colace 100 MG 12/31/2020 01:00:00 AM EDT NETSMART ([facility]) Lasix 20 MG 12/24/2020 01:00:00 AM EDT N ETSMART ([facility]) Furosemide 40 MG Oral Tablet [Lasix] 12/24/2020 12:00:00 AM EDT eCW1 ([facility]) Furosemide 40 MG Oral Tablet [Lasix] 12/24/2020 12:00:00 AM EDT eCW1 ([facility]) Furosemide 40 MG Oral Tablet [Lasix] 12/24/2020 12:00:00 AM EDT eCW1 ([facility]) Furosemide 40 MG Oral Tablet [Lasix] 12/24/2020 12:00:00 AM EDT eCW1 ([facility]) Furosemide 40 MG Oral Tablet [Lasix] 12/24/2020 12:00:00 AM EDT eCW1 ([facility]) Furosemide 20 MG Oral Tablet [Lasix] 12/24/2020 12:00:00 AM EDT eCW1 ([facility]) Furosemide 20 MG Oral Tablet [Lasix] 12/24/2020 12:00:00 AM EDT eCW1 ([facility]) Furosemide 20 MG Oral Tablet [Lasix] 12/24/2020 12:00:00 AM EDT eCW1 ([facility]) Furosemide 20 MG Oral Tablet [Lasix] 12/24/2020 12:00:00 AM EDT eCW1 ([facility]) Furosemide 40 MG Oral Tablet [Lasix] 12/24/2020 12:00:00 AM EDT eCW1 ([facility]) Furosemide 20 MG Oral Tablet [Lasix] 12/24/2020 12:00:00 AM EDT eCW1 ([facility]) Furosemide 20 MG Oral Tablet [Lasix] 12/24/2020 12:00:00 AM EDT eCW1 ([facility]) Furosemide 20 MG Oral Tablet [Lasix] 12/24/2020 12:00:00 AM EDT eCW1 ([facility]) Furosemide 20 MG Oral Tablet [Lasix] 12/24/2020 12:00:00 AM EDT eCW1 ([facility]) Furosemide 20 MG Oral Tablet [Lasix] 12/24/2020 12:00:00 AM EDT eCW1 ([facility]) Furosemide 20 MG Oral Tablet [Lasix] 12/24/2020 12:00:00 AM EDT eCW1 ([facility]) Potassium Chloride CR 15 MEQ 12/24/2020 12:00:00 AM EDT eCW1 ([facility]) Furosemide 20 MG Oral Tablet [Lasix] 12/24/2020 12:00:00 AM EDT eCW1 ([facility]) Potassium Chloride CR 15 MEQ 12/24/2020 12:00:00 AM EDT eCW1 ([facility]) Ferrous Sulfate 325 (65 Fe) MG 11/30/2020 01:00:00 AM EDT NETSMART ([facility]) Melatonin 10 MG 11/30/2020 01:00:00 AM EDT NETSMART ([facility]) MetFORMIN HCl ER (MOD) 500 MG 11/30/2020 01:00:00 AM EDT NETSMART ([facility]) Lidocaine Pain Relieving 4 % 11/30/2020 01:00:00 AM EDT NETSMART ([facility]) Losartan Potassium-HCTZ 100-12.5 MG 11/24/2020 01:00:00 AM EDT NETSMART ([facility]) MetFORMIN HCl 500 MG 11/24/2020 01:00:00 AM EDT NETSMART ([facility]) Colace 100 MG 11/24/2020 01:00:00 AM EDT NETSMART ([facility]) Ferrous Sulfate 324 MG 11/24/2020 01:00:00 AM EDT NETSMART ([facility]) Ciprofloxacin HCl 750 MG 11/24/2020 01:00:00 AM EDT NETSMART ([facility]) Lancets 28 G 11/24/2020 01:00:00 AM EDT N ETSMART ([facility]) FreeStyle Weld Lite w/Device 11/24/2020 01:00:00 AM EDT NETSMART ([facility]) Tylenol Extra Strength 500 MG 11/24/2020 01:00:00 AM EDT HANNA ([facility]) Tylenol PM 11/24/2020 01:00:00 AM EDT [place] ([facility])
[2021-04-13 16:27] LABS: ALBUMIN 2.3 GM/DL (3.2-5.2); ALT/SGPT 87 U/L (12-78); BILIRUBIN,DIRECT 0.2 MG/DL (0.0-0.2); BILIRUBIN,TOTAL 0.4 MG/DL (0.2-1.0); CK-MB VALUE MASS 1.4 NG/ML (<3.6); CPK CREATINE PHOSPHOKINASE 36 U/L (39-308); LIPASE 648 U/L (73-393); MB/CK RELATIVE INDEX 3.89 (< OR =4); TOTAL PROTEIN 7.1 GM/DL (6.4-8.2); TROPONIN I < 0.02 NG/ML (< 0.10)
[2021-04-13 16:36] LABS: RSV AMPLIFICATION NEGATIVE (NEGATIVE)
--- NOTE | 2021-04-13 17:16 | REP ---
INDICATION: weakness. COMPARISON: March 27, 2011. TECHNIQUE: Sitting portable AP chest radiograph. FINDINGS: EKG monitoring electrodes are seen. The lungs are symmetrically aerated and no infiltrate is seen. Pleural angles are sharp. Heart size is normal. No acute bony abnormality. IMPRESSION: No active disease. <Electronically signed by Francisco Javier Galarza > 04/13/21 [id number]
[2021-04-13] MEDS ORDERED: LOSA50TA88 PO (17:58)
[2021-04-13] MEDS ORDERED: FURO40TA2 PO (17:58)
[2021-04-13] MEDS ORDERED: MONT10TA10 PO (17:58)
[2021-04-13] MEDS ORDERED: ACETAMINOPHEN TAB 650MG DOSE (2X325MG) PO PRN (18:05)
[2021-04-13] MEDS ORDERED: POLY1POW38 PO (18:09)
[2021-04-13] MEDS ORDERED: GLUCOSE 4GM CHEW TABLET PO PRN (18:10)
[2021-04-13] MEDS ORDERED: HOME MED LIST COMPLETE! XX SCH (18:10)
[2021-04-13] MEDS ORDERED: GLUCAGON INJ 1MG VIAL SC PRN (18:10)
[2021-04-13] MEDS ORDERED: DEXTROSE 50% 50 ML SYRINGE IV PRN (18:10)
--- NOTE | 2021-04-13 18:20 | HPEPDOC ---
General Date of Admission 04/13/21 Date of Service: Apr 13, 2021 Chief Complaint The patient is a 80-year-old male admitted with a reason for visit of Blood Around Stoma. Source: Patient History of Present Illness Patient is 80 years old male with past medical history of bladder cancer, liver cancer, cirrhosis, prostate cancer, type 2 diabetes presented to hospital with generalized weakness and shortness of breath. Patient stated that he noticed bleeding from his ileocecal stoma. Patient stated that after removal of bladder cancer ileocecal stoma was placed and patient has been having intermittent bleeding. Of note, patient has recently diagnosed with liver cancer and last week he had mapping procedure in [facility]. In ER patient was found to have no leukocytosis, hemoglobin 7.2, AST92, ALT 87. Lipase of 648. Chest x-ray negative for acute pulmonary disease Home Medications Scheduled Ferrous Sulfate (Iron) 325 Mg Tablet, 325 MG PO 3XW, (Reported) MON, WED, FRI Furosemide (Furosemide) 40 Mg Tablet, 40 MG PO DAILY, (Reported) Losartan Potassium (Losartan Potassium) 50 Mg Tablet, 25 MG PO DAILY, (Reported) Metformin HCl (Metformin HCl ER) 500 Mg Tab, 1,000 MG PO QPM, (Reported) Montelukast Sodium (Montelukast Sodium) 10 Mg Tablet, 10 MG PO QHS, (Reported) Polyethylene Glycol 3350 (Polyethylene Glycol 3350) 17 Gm Powd.pack, 17 GM PO DAILY, (Reported) @NOON Spironolactone (Spironolactone) 25 Mg Tablet, 25 MG PO BID, (Reported) Scheduled PRN Docusate Sodium (Colace) 100 Mg Capsule, 100 MG PO BID PRN for CONSTIPATION, (Reported) Hydroxyzine HCl (Hydroxyzine HCl) 10 Mg Tablet, 10 MG PO Q4H PRN for ITCHING, (Reported) Allergies Coded Allergies: No Known Allergies (Unverified , 08/20/19) Past Medical History Medical History TYPE 2 DIABETES MELLITUS WITH OTHER DIABETIC KIDNEY COMPLICATION HYPERCHOLESTEROLEMIA PERSONAL HISTORY OF MALIGNANT NEOPLASM OF BLADDER PERSONAL HISTORY OF MALIGNANT NEOPLASM OF PROSTATE THROMBOCYTOPENIA, UNSPECIFIED PERSONAL HISTORY OF URINARY CALCULI NONALCOHOLIC STEATOHEPATITIS (WELLS) INSOMNIA, UNSPECIFIED 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 ARTHRITIS OF KNEE ESSENTIAL (PRIMARY) HYPERTENSION Surgical History TONSILLECTOMY AGE 14 PROSTATE BIOPSY 06/2004 COLONOSCOPY 05/19/2006, 08/2016 TURBT 12/2006 RIGHT ROTATOR CUFF TEAR REPAIR 05/23/2008 CYSTOSCOPY WITH TURBT 10/17/2008, 10/2010 URETHRAL STRICTURE DILATION 11/04/2011 ROBOTIC RIGHT URETERAL REIMPLANTATION 02/28/2011 BIOPSY OF MANDIBULAR BONE FALL 2013 COLONOSCOPY WITH POLYPECTOMY (ADENOMATOUS) 08/2016 CYSTOSCOPY WITH FULGERATION OF BLADDER TUMOR 07/2017 CYSTOSCOPY WITH DILATION OF URETHRAL STRICTURE--NO TUMOR 09/28/2017 CYSTOSCOPY CYSTOSCOPY 08/2018 CYSTOSCOPY; HAD RECURRENT TUMOR 01/2019 TURBT 03/09/2019 TURP-DR. CASTANEDA 06/22/2019 PROSTATECTOMY-DR. KITCHEN 11/13/2020 Family History I personally reviewed family history and found not pertinent Social History * Smoker: Denies Alcohol: Denies Drugs: denies A-FIB/CHADSVASC A-FIB History Current/History of A-Fib/PAF?: No Current PO Anticoag Therapy: No Review of Systems Constitutional: Reports: Weakness; Denies: Chills Eyes: Denies: Pain ENT: Denies: Head Aches Skin: Denies: Rash Pulmonary: Reports: Dyspnea Cardiovascular: Denies: Chest Pain Gastrointestinal: Denies: Nausea Genitourinary: Reports: Hematuria Hematologic: Denies: Bruising Endocrine: Denies: Polydipsia Musculoskeletal: Denies: Neck Pain Neurological: Denies: Weakness Psych: Reports: Mood Normal Physical Examination General Exam: Positive: Alert, Cooperative Eye Exam: Positive: PERRLA ENT Exam: Positive: Atraumatic Neck Exam: Positive: Supple; Negative: JVD Chest Exam: Positive: Clear to auscultation Heart Exam: Positive: Tachycardic; Negative: Rate Normal Telemetry: Positive: Sinus; Negative: No significant arrhythmia Abdomen Exam: Positive: Normal bowel sounds Extremity Exam: Negative: Clubbing Skin Exam: Negative: Pruritus Neuro Exam: Positive: Cranial Nerves 3-12 NL Psych Exam: Positive: Oriented x 3 Vital Signs Vital Signs Date Time Temp Pulse Resp B/P (MAP) Pulse Ox O2 Delivery O2 Flow Rate FiO2 04/13/21 18:03 97.2 96 18 122/59 97 Room Air Laboratory Data Labs 24H Laboratory Tests 2 04/13/21 15:33: Immature Granulocyte % (Auto) 0.3, Neutrophils (%) (Auto) 71.6H, Lymphocytes (%) (Auto) 6.1L, Monocytes (%) (Auto) 10.9H, Eosinophils (%) (Auto) 9.6H, Basophils (%) (Auto) 1.5H, Neutrophils # (Auto) 2.8, Lymphocytes # (Auto) 0.2L, Monocytes # (Auto) 0.4, Eosinophils # (Auto) 0.4, Basophils # (Auto) 0.1, Nucleated Red Blood Cells % (auto) 0.0, Prothrombin Time 14.3H, Prothromb Time International Ratio 1.07, Activated Partial Thromboplast Time 34.2, Total Bilirubin 0.4, Direct Bilirubin 0.2, Aspartate Amino Transf (AST/SGOT) 92H, Alanine Aminotransferase (ALT/SGPT) 87H, Alkaline Phosphatase 185H, Total Creatine Kinase 36L, Creatine Kinase MB 1.4, Creatine Kinase MB Relative Index 3.89, Troponin I < 0.02, Total Protein 7.1, Albumin 2.3L, Albumin/Globulin Ratio 0.5, Lipase 648H, Coronavirus (COVID-19)(PCR) NEGATIVE, Influenza Type A (RT-PCR) NEGATIVE, Influenza Type B (RT-PCR) NEGATIVE, Respiratory Syncytial Virus (PCR) NEGATIVE 04/13/21 15:52: POC Glucose (Misc Panel) 210H, POC Sodium (Misc Panel) 135L, POC Potassium (Misc Panel) 4.8, POC Chloride (Misc Panel) 105, POC Total CO2 (Misc Panel) 19.0L, POC Blood Urea Nitrogen (Misc Panel 33H, POC Ionized Calcium (Misc Panel) 5.8H, POC Creatinine (Misc Panel) 1.2, POC Hematocrit (Misc Panel) 22.0L CBC/BMP Laboratory Tests 04/13/21 15:33 Assessment/Plan Patient is 80 years old male with past medical history of bladder cancer, liver cancer, cirrhosis, prostate cancer, type 2 diabetes presented to hospital with generalized weakness and shortness of breath. Patient stated that he noticed bleeding from his ileocecal stoma. Patient stated that after removal of bladder cancer ileocecal stoma was placed and patient has been having intermittent bleeding. Of note, patient has recently diagnosed with liver cancer and last week he had mapping procedure in [facility]. In ER patient was found to have no leukocytosis, hemoglobin 7.2, AST92, ALT 87. Lipase of 648. Chest x-ray negative for acute pulmonary disease Problems (1) Acute on chronic blood loss anemia Status: Acute Problem Text: Secondary to stop bleeding H&H every 6 hours Appreciate/agree with surgical consult We will give 2 units of blood (2) Cirrhosis Status: Chronic Problem Text: Follow-up with GI team (3) Bladder tumor Status: Chronic Problem Text: Follow-up with oncologist/GI team (4) Stoma bleed Status: Chronic Problem Text: Appreciate/agree with surgical consult (5) Diabetes mellitus Status: Chronic Problem Text: Insulin sliding scale Diabetes diet Plan / VTE VTE Prophylaxis Ordered?: No VTE Exclusion Pharmacological: Active Bleeding LUCILA GARCIA DO Apr 13, 2021 18:20
[2021-04-13] MEDS ORDERED: DOCUSATE SODIUM 100MG CAPSULE PO PRN (18:30)
--- NOTE | 2021-04-13 18:40 | ECGEPIP ---
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
--- OUTSIDE RECORDS SUMMARY | 2021-04-13 18:41 | CCD ---
Author Author [facility] Organization [facility] Address Unknown Phone Unavailable Care Team Providers Care Product Mgmt Dev Manager Name Role Phone Amee HDZ PA Unavailable [...] Unavailable Kitchen, N Po MD Unavailable Unavailable Kitcehn, N Po MD Unavailable Unavailable Kitchen, N [...] Unavailable RENATA, Sai CULVER MD Unavailable Unavailable REANTA, Sai CULVER MD Unavailable Unavailable RENATA, Sai CULVER MD Unavailable Unavailable RENATA, Sai CULVER MD Unavailable Unavailable RENATA, Sai CULVER MD Unavailable Unavailable RENATA, Sai CULVER MD Unavailable Unavailable RENATA, Sai CULVER MD Unavailable Unavailable RENATA, Sai CULVER MD Unavailable Unavailable RENATASia MD Unavailable Unavailable RENATA, Sai CULVER MD [...] Unavailable HARTBessie NORIEGA MD Unavailable Unavailable Bessie CARLNI MD Unavailable Unavailable Bessie CARLIN MD Unavailable [...] Unavailable RENATA, P ABIOLA MD Unavailable Unavailable Bivins, F Tarah PA Unavailable Unavailable Easton, F Tarah PA Unavailable Unavailable Easton, F Tarah PA Unavailable Unavailable Bivins, F Tarah PA Unavailable Unavailable Easton, F Tarah PA Unavailable Unavailable Bivins, F Tarah PA Unavailable Unavailable Easton, F Tarah PA Unavailable Unavailable Bivins, F Tarah PA Unavailable Unavailable Bivins, F Tarah PA Unavailable Unavailable Easton, F Tarah PA Unavailable Unavailable Easton, F Tarah PA Unavailable Unavailable Easton, F Tarah PA Unavailable Unavailable Easton, F Tarah PA Unavailable Unavailable Easton, F Tarah PA Unavailable Unavailable Easton, F Tarah PA Unavailable Unavailable Bivins, F Tarah PA Unavailable Unavailable Bivins, F Tarah PA Unavailable Unavailable Bivins, F Tarah PA Unavailable Unavailable Bivins, F Tarah PA Unavailable Unavailable Easton, F Tarah PA Unavailable Unavailable Easton, F Tarah PA Unavailable Unavailable Bivins, F Tarah PA Unavailable Unavailable Bivins, F Tarah PA Unavailable Unavailable Bivins, F Tarah PA Unavailable Unavailable Bivins, F Tarah PA Unavailable Unavailable Bivins, F Tarah PA Unavailable Unavailable Bivins, F Tarah PA Unavailable Unavailable Bivins, F Tarah PA Unavailable Unavailable Bivins, F Tarah PA Unavailable Unavailable Easton, F [...] Unavailable Melyssa RANKIN MD Unavailable Unavailable Melyssa RAKNIN MD Unavailable Unavailable Melyssa RANKIN MD Unavailable [...] MD Unavailable Unavailable DENISEOOAmee MD Unavailable Unavailable EDNISEOOAmee MD Unavailable Unavailable Amee CASTANEDA MD Unavailable [...] Unavailable Melyssa RANKIN MD Unavailable Unavailable Melyssa ARNKIN MD Unavailable Unavailable Melyssa RANKIN MD Unavailable [...] is protected by Article 27-F of the [facility] Public Health law. If you continue you may have access to information: Regarding HIV / AIDS; Provided by facilities licensed or operated by the [facility] Office of Mental Health; or Provided by the [facility] Office for People With Developmental Disabilities. If such information is present, then the following [facility] mandated warning applies: This information has [...] law may result in a fine or intermediate sentence or both. A general authorization for the release of medical or other information is NOT sufficient authorization for further disc losure. Allergies and Adverse Reactions Type Description Substance Reaction Status Data Source(s ) Propensity to adverse reactions NO KNOWN ALLERGIES NO KNOWN ALLERGIES [facility] Propensity to adverse reactions BICALUTAMIDE BICALUTAMIDE Palpitation s [facility] Casodex Casodex Casodex active NETSMART ([facility]) Family History Family Member Name Family Member Gender Family Member Status Date o f Status Description Data Source(s) Unknown Unknown Problem [facility] ([facility]) Unknown Unknown Problem [facility] ([facility] [place]) Encounters Encounter Providers Location Date Indications Data Source(s ) Outpatient Attender: Cyn ERVIN 06/27/2021 12:00:0 0 AM [facility] Outpatient Attender: Jermaine Freeman DO 06/27/2021 12:00:00 AM [facility] Outpatient Attender: Jermaine Freeman DO 04/23/2021 12:00:00 AM [facility] Outpatient Attender: Eulalia Galvan i MDAdmitter: Eulalia Muñiz MDReferrer: Eulalia Muñiz MD [id number] 04/09/2021 12:00:00 AM EST - 04/09/2021 02:53:00 PM [facility] Liver cell carcinoma [facility] Liver cell carcinoma Patient admitted. Outpatient Referrer: Eulalia Muñiz MD 04/09/2021 12: 00:00 AM [facility] Outpatient Referrer: Eulalia Muñiz MD 04/09/2021 12: 00:00 AM [facility] Outpatient Attender: MARC EDAttender : PRIYA BURCHReferrer: Eulalia Muñiz MD [id number] 04/05/2021 12:00:00 AM EDT - 04/06/2021 12:00:00 AM EDT [facility] Outpatient [address] [address] 04/02/2021 12:00:00 AM EDT [facility] ([facility]) [place] ( in Healthcare facility) Attender: INNA YANEZ MDAdmitter: ABIOLA YANEZ MDConsultant: ISIDORO WARD 03/30/2021 01:33:00 AM EDT [facility] Emergency Attender: ABIOLA BLOUNT I MDAttender: GARETH MONTANA MDAttender: ER PHYSICIAN 03/29/2021 10:43:15 PM EDT [facility] Outpatient Attender: ABIOLA BLOUNT I MDAttender: GARETH MONTANA MDAttender: ER PHYSICIANAdmitter: ABIOLA YANEZ MD 09:05:00 PM EDT - 03/31/2021 02:19:00 PM EDT RECURRENT OSTOMY BLEED, HX OF BLADDER CA, LIVER CA [facility] RECURRENT OSTOMY BLEED, HX OF BLADDER CA , LIVER CA Patient discharged. Outpatient Attender: Jermaine Freeman DO [id number] 03/28/20 12:00:00 AM EDT - 03/28/2021 03:07:13 PM EDT [facility] Outpatient Referrer: Jermaine Freeman DO 03/22/2021 12:00: 00 AM EDT Liver cell carcinoma [facility] Liver cell carcinoma Outpatient Attender: Krista Meneses/ Asha.M.P. Urology 03/20 09:40:00 AM EDT [facility] ([facility] [place] [address] [address] 03/19/2021 12:00:00 AM EDT eCW1 ([facility]) Outpatient Attender: Eulalia Muñiz MD [id number] 03/15/2021 03:57:13 PM EDT [facility] Office Visit Attender: DENVER Meneses/ A.M.P. Urol ogy 03/12/2021 04:58:00 PM EDT [facility] ([facility]) Outpatient Attender: DENVER Meneses/ A.M.P. Urol ogy 03/11/2021 08:24:00 AM EDT [facility] ([facility]) Inpatient Attender: ELIZABETH WATERS MDAttender: ER PHYSICIAN 03/10/2021 02:21:00 PM EDT [facility] Inpatient Attender: ELIZABETH WATERS MDAttender: ER PHYSICIAN 03/10/2021 01:33:49 PM EDT [facility] [place] [facility] Inpatient Attender: ELIZABETH Andre tender: ER PHYSICIANAdmitter: ELIZABETH WATERS MD 03/10/2021 12:23:00 PM EDT - 03/12/2021 03:09:00 PM EDT BLEEDING STOMA [facility] BLEEDING STOMA Patient discharged. [place] [address] [address] 03/06/2021 12:00:00 AM EDT eCW1 ([facility]) [place] [address] [address] 03/05/2021 12:00:00 AM EDT eCW1 ([facility]) [place] [address] [address] 03/05/2021 12:00:00 AM EDT eCW1 ([facility]) Outpatient Attender: Eulalia Muñiz MD [id number] 03/04/2021 12:00:00 AM EDT - 03/04/2021 12:42:30 PM EDT [facility] Outpatient 03/04/2021 12:00:00 AM EDT [facility] new pt Outpatient Attender: Jermaine Freeman DO [id number] 02/29/20 12:00:00 AM EDT - 02/28/2021 12:20:04 PM EDT [facility] Unknown [address] [address] 02/20/2021 12:00:00 AM EDT eCW1 ([facility]) Outpatient Attender: IESHA CARLIN MD CMP Internal Med a t [place] 02/18/2021 02:13:00 AM EDT [facility]) Outpatient Attender: IESHA CARLIN MD CMP Internal Med a t [place] 02/17/2021 01:59:00 AM EDT [facility] ([facility]) Outpatient Attender: ER PHYSICIAN 02/16/2021 01:10:00 AM E DT [facility] Inpatient Attender: NIRALI Stroud donis: GARETH MONTANA MDAttender: ER PHYSICIANAdmitter: GARETH MONTANA MD 02/16/2021 12:28:09 AM EDT [facility] Inpatient Attender: NIRALI Stroud donis: GARETH MONTANA MDAttender: ER PHYSICIANAdmitter: NIRALI RANKIN MD 02/15/2021 10:55:00 P M EDT - 02/18/2021 10:51:00 AM EDT ACUTE BLOOD LOSS ANEMIA [facility] ACUTE BLOOD LOSS ANEMIA Patient discharged. [place] [address] [address] 02/15/2021 12:00:00 AM EDT [facility]CW1 [facility] Outpatient Attender: MAR Meneses/ Leonardo Urol ogy 02/14/2021 10:00:00 AM EDT [facility] ([facility]) Outpatient Admitter: Анна Braun MDReferrer: Анна Braun MD 02/12/2021 12:00:00 AM EDT Liver cell carcinoma [facility] Liver cell carcinoma Unknown [address] [address] 02/05/2021 12:00:00 AM EDT eCW1 ([facility]) Inpatient Attender: ER PHYSICIAN 01/31/2021 12:56:00 AM E [facility] Inpatient Attender: ARNAUD PEREZ MDAttender: ER Sai HYSIRAFA 01/31/2021 12:29:40 AM EDT [facility] [place] [facility] Inpatient Attender: ARNAUD HAAS MDAttender: ER PHYSICIANAdmitter: ARNAUD PEREZ MD 01/30/2021 10:55:00 PM EDT - 01/31/2021 11:15:00 AM EDT HEMATURIA [facility] HEMATURIA Patient discharged. Outpatient Attender: Kalia Meneses/ Leonardo Urolo gy 01/22/2021 11:00:00 AM EDT [facility] [place] [address] [address] 01/22/2021 12:00:00 AM EDT eCW1 [facility] [place] [address] [address] 01/22/2021 12:00:00 AM EDT eCW1 ([facility]) [place] [address] [address] 01/17/2021 12:00:00 AM EDT eCW1 ([facility]) Unknown [address] [address] 01/16/2021 12:00:00 AM EDT eCW1 [facility] [place] [address] [address] 01/09/2021 12:00:00 AM EDT eCW1 ([facility]) [place] [address] [address] 01/08/2021 12:00:00 AM EDT eCW1 ([facility]) Outpatient [address] [address] 01/01/2021 12:00:00 AM EDT eCW1 ([facility]) [place] [address] [address] 12/25/2020 12:00:00 AM EDT eCW1 ([facility]) [place] [address] [address] 12/24/2020 12:00:00 AM EDT eCW1 ([facility]) Office Visit Attender: Tarah Meneses/ Leonardo sullivan 12/05/2020 10:30:00 AM EDT [facility] ([facility]) Unknown [address] [address] 11/29/2020 12:00:00 AM EDT eCW1 ([facility]) Outpatient [address] [address] 11/28/2020 12:00:00 AM EDT eCW1 ([facility]) 11/24/2020 01:00:00 AM EDT - 021 11:47:23 PM EDT NETSMART ([facility]) Inpatient Attender: LORENA RITTER MD 11/13/2020 12:03:14 PM EDT [facility] [place] [facility] Inpatient Attender: Krista Kitchen MDAdmitter: Krista Kitchen MD 11/13/2020 10:43:00 AM EDT - 11/22/2020 02:37:00 PM EDT 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 ( in Healthcare facility) Attender: Krista Sesay MDAdmitter: Krista Kitchen MDConsultant: ISIDORO WARD 11/13/2020 10:43:00 AM EDT [facility] Inpatient Attender: Krista Kitchen MD 11/13/2020 10:43:00 AM EDT [facility] Unknown [address] [address] 11/09/2020 12:00:00 AM EDT eCW1 ([facility]) [place] [address] [address] 11/08/2020 12:00:00 AM EDT eCW1 ([facility]) Outpatient [address] [address] 11/07/2020 12:00:00 AM EDT eCW1 ([facility]) Outpatient Attender: LORENA RITTER MD 11/06/2020 01:09:23 PM EDT [facility] [place] [facility] Outpatient Attender: Krista Kitchen MD 11/06/2020 11:56:00 A M EDT ROBOTIC XI ASSISTED LAPAROSCOPIC CYSTOPROSTATECTOMY ILEOCOND [facility] ROBOTIC XI ASSISTED LAPAROSCOPIC CYSTOPR OSTATECTOMY ILEOCOND [place] [address] [address] 09/11/2020 12:00:00 AM EDT eCW1 ([facility]) Outpatient Attender: Krista Meneses/ A.M.P. Urology 09/10 04:00:00 PM EDT [facility] ([facility] [place]) Outpatient Attender: MAR Meneses/ A.M.P. Urol ogy 08/03/2020 01:30:00 PM EST [facility] ([facility]) Outpatient Attender: Kalia Saxena RPA [place]/ A.M.P. Urolo gy 07/20/2020 01:15:00 PM EST [facility] ([facility]) Outpatient Attender: Kalia Youngida/ A.M.P. Urolo gy 05/30/2020 01:00:00 PM EST [facility] ([facility] Out[place] [address] [address] 05/18/2020 12:00:00 AM EST eCW1 ([facility]) Out[place] [address] [address] 05/11/2020 12:00:00 AM EST eCW1 ([facility]) Out[place] [address] [address] 05/08/2020 12:00:00 AM EST eCW1 ([facility]) Outpatient Attender: Krista Meneses/ A.M.P. Urology 04/20 07:30:00 AM EST [facility] ([facility] [place] [address] [address] 03/27/2020 12:00:00 AM EDT eCW1 ([facility]) Outpatient Attender: MAR Meneses/ Asha.MGwenP. Urol ogy 03/22/2020 11:00:00 AM EDT [facility] ([facility]) Outpatient Attender: Kalia Saxena RPA [place]/ A.M.P. Urolo gy 03/20/2020 03:00:00 PM EDT [facility] ([facility]) Outpatient Attender: Kalia Youngida/ A.M.P. Urolo gy 03/16/2020 02:45:00 PM EDT [facility] ([facility]) Outpatient Referrer: MAR CASTANEDA MD MOB-MOB.PAT 11:08:19 AM EDT - 02/26/2020 11:08:37 AM [facility]: MAR CASTANEDA MD Admitter: MAR CASTANEDA MDReferrer: MAR CASTANEDA MD [facility] 01/19/2020 10:10:55 AM EDT - 03/02/2020 01:04:00 PM EDT [facility] Patient discharged. Immunizations Vaccine Date Status Description Data Source(s) Pfizer #3 dose COVID-19 SARSCOV2 VAC 30MCG/0.3ML IM 03/14/20 06:15:00 AM EDT completed eCW1 ([facility]) COVID-19 VACC, MRNA(PFIZER)/PF 03/14/2021 12:00:00 AM EDT completed [facility] COVID-19 VACCINE Pfizer 03/14/2021 12:00:00 AM EDT completed [facility] Vaccine Series Complete: YESThis Data wa s Submitted to [facility] [employer]. IIV3. This is one of two codes replacing CVX 15, which is being retired. 02/26/2021 06:37:00 AM EDT completed eCW1 ([facility]) IIV3. This is one of two codes replacing CVX 15, which is being retired. 02/26/2021 06:37:00 AM EDT completed eCW1 ([facility]) IIV3. This is one of two codes replacing CVX 15, which is being retired. 02/26/2021 06:37:00 AM EDT completed eCW1 ([facility]) IIV3. This is one of two codes replacing CVX 15, which is being retired. 02/26/2021 06:37:00 AM EDT completed eCW1 ([facility]) IIV3. This is one of two codes replacing CVX 15, which is being retired. 02/26/2021 06:37:00 AM EDT completed eCW1 ([facility]) IIV3. This is one of two codes replacing CVX 15, which is being retired. 02/26/2021 06:37:00 AM EDT completed eCW1 ([facility]) COVID-19 dose #2 given elsewhere Unspecified 07/29/2020 06:0 7:00 AM EST completed eCW1 ([facility]) COVID-19 dose #2 given elsewhere Unspecified 07/29/2020 06:0 7:00 AM EST completed eCW1 ([facility]) COVID-19 dose #2 given elsewhere Unspecified 07/29/2020 06:0 7:00 AM EST completed eCW1 ([facility]) COVID-19 dose #2 given elsewhere Unspecified 07/29/2020 06:0 7:00 AM EST completed eCW1 ([facility]) COVID-19 dose #2 given elsewhere Unspecified 07/29/2020 06:0 7:00 AM EST completed eCW1 ([facility]) COVID-19 dose #2 given elsewhere Unspecified 07/29/2020 06:0 7:00 AM EST completed eCW1 ([facility]) COVID-19 dose #2 given elsewhere Unspecified 07/29/2020 06:0 7:00 AM EST completed eCW1 ([facility]) COVID-19 dose #2 given elsewhere Unspecified 07/29/2020 06:0 7:00 AM EST completed eCW1 ([facility]) COVID-19 dose #2 given elsewhere Unspecified 07/29/2020 06:0 7:00 AM EST completed eCW1 ([facility]) COVID-19 dose #2 given elsewhere Unspecified 07/29/2020 06:0 7:00 AM EST completed eCW1 ([facility]) COVID-19 dose #2 given elsewhere Unspecified 07/29/2020 06:0 7:00 AM EST completed eCW1 ([facility]) COVID-19 dose #2 given elsewhere Unspecified 07/29/2020 06:0 7:00 AM EST completed eCW1 ([facility]) COVID-19 dose #2 given elsewhere Unspecified 07/29/2020 06:0 7:00 AM EST completed eCW1 ([facility]) COVID-19 dose #2 given elsewhere Unspecified 07/29/2020 06:0 7:00 AM EST completed eCW1 ([facility]) COVID-19 dose #2 given elsewhere Unspecified 07/29/2020 06:0 7:00 AM EST completed eCW1 ([facility]) COVID-19 dose #2 given elsewhere Unspecified 07/29/2020 06:0 7:00 AM EST completed eCW1 ([facility]) COVID-19 dose #2 given elsewhere Unspecified 07/29/2020 06:0 7:00 AM EST completed eCW1 ([facility]) COVID-19 dose #2 given elsewhere Unspecified 07/29/2020 06:0 7:00 AM EST completed eCW1 ([facility]) COVID-19 dose #2 given elsewhere Unspecified 07/29/2020 06:0 7:00 AM EST completed eCW1 ([facility]) COVID-19 dose #2 given elsewhere Unspecified 07/29/2020 06:0 7:00 AM EST completed eCW1 ([facility]) COVID-19 dose #2 given elsewhere Unspecified 07/29/2020 06:0 7:00 AM EST completed eCW1 ([facility]) COVID-19 dose #2 given elsewhere Unspecified 07/29/2020 06:0 7:00 AM EST completed eCW1 ([facility]) COVID-19 (Pfizer), mRNA, LNP-S, PF, 30 mcg/0.3 mL dose 07/29/2020 12:00:00 AM EST completed [facility] COVID-19 VACCINE Pfizer 07/29/2020 12:00:00 AM EST completed [facility] Vaccine Series Complete: YESThis Data wa s Submitted to [facility] [employer]. Pfizer Covid-19 Sars-Cov-2, mRNA, LNP-S, PF, 30 mcg/ 0 .3 mL 07/28/2020 11:00:00 PM EST completed [facility] ([facility]) COVID-19 dose #1 given elsewhere Unspecified 07/08/2020 06:0 7:00 AM EST completed eCW1 ([facility]) COVID-19 dose #1 given elsewhere Unspecified 07/08/2020 06:0 7:00 AM EST completed eCW1 ([facility]) COVID-19 dose #1 given elsewhere Unspecified 07/08/2020 06:0 7:00 AM EST completed eCW1 ([facility]) COVID-19 dose #1 given elsewhere Unspecified 07/08/2020 06:0 7:00 AM EST completed eCW1 ([facility]) COVID-19 dose #1 given elsewhere Unspecified 07/08/2020 06:0 7:00 AM EST completed eCW1 ([facility]) COVID-19 dose #1 given elsewhere Unspecified 07/08/2020 06:0 7:00 AM EST completed eCW1 ([facility]) COVID-19 dose #1 given elsewhere Unspecified 07/08/2020 06:0 7:00 AM EST completed eCW1 ([facility]) COVID-19 dose #1 given elsewhere Unspecified 07/08/2020 06:0 7:00 AM EST completed eCW1 ([facility]) COVID-19 dose #1 given elsewhere Unspecified 07/08/2020 06:0 7:00 AM EST completed eCW1 ([facility]) COVID-19 dose #1 given elsewhere Unspecified 07/08/2020 06:0 7:00 AM EST completed eCW1 ([facility]) COVID-19 dose #1 given elsewhere Unspecified 07/08/2020 06:0 7:00 AM EST completed eCW1 ([facility]) COVID-19 dose #1 given elsewhere Unspecified 07/08/2020 06:0 7:00 AM EST completed eCW1 ([facility]) COVID-19 dose #1 given elsewhere Unspecified 07/08/2020 06:0 7:00 AM EST completed eCW1 ([facility]) COVID-19 dose #1 given elsewhere Unspecified 07/08/2020 06:0 7:00 AM EST completed eCW1 ([facility]) COVID-19 dose #1 given elsewhere Unspecified 07/08/2020 06:0 7:00 AM EST completed eCW1 ([facility]) COVID-19 dose #1 given elsewhere Unspecified 07/08/2020 06:0 7:00 AM EST completed eCW1 ([facility]) COVID-19 dose #1 given elsewhere Unspecified 07/08/2020 06:0 7:00 AM EST completed eCW1 ([facility]) COVID-19 dose #1 given elsewhere Unspecified 07/08/2020 06:0 7:00 AM EST completed eCW1 ([facility]) COVID-19 dose #1 given elsewhere Unspecified 07/08/2020 06:0 7:00 AM EST completed eCW1 ([facility]) COVID-19 dose #1 given elsewhere Unspecified 07/08/2020 06:0 7:00 AM EST completed eCW1 ([facility]) COVID-19 dose #1 given elsewhere Unspecified 07/08/2020 06:0 7:00 AM EST completed eCW1 ([facility]) COVID-19 dose #1 given elsewhere Unspecified 07/08/2020 06:0 7:00 AM EST completed eCW1 ([facility]) COVID-19 (Pfizer), mRNA, LNP-S, PF, 30 mcg/0.3 mL dose 07/08/2020 12:00:00 AM EST completed [facility] COVID-19 VACCINE Pfizer 07/08/2020 12:00:00 AM EST completed [facility] Vaccine Series Complete: NOThis Data was Submitted to [facility] Via [employer]. Pfizer Covid-19 Sars-Cov-2, mRNA, LNP-S, PF, 30 mcg/ 0 .3 mL 07/07/2020 11:00:00 PM EST completed [facility] ([facility]) IIV3. This is one of two codes replacing CVX 15, which is being retired. 03/08/2020 06:06:00 AM EDT completed eCW1 ([facility]) IIV3. This is one of two codes replacing CVX 15, which is being retired. 03/08/2020 06:06:00 AM EDT completed eCW1 ([facility]) IIV3. This is one of two codes replacing CVX 15, which is being retired. 03/08/2020 06:06:00 AM EDT completed eCW1 ([facility]) IIV3. This is one of two codes replacing CVX 15, which is being retired. 03/08/2020 06:06:00 AM EDT completed eCW1 ([facility]) IIV3. This is one of two codes replacing CVX 15, which is being retired. 03/08/2020 06:06:00 AM EDT completed eCW1 ([facility]) IIV3. This is one of two codes replacing CVX 15, which is being retired. 03/08/2020 06:06:00 AM EDT completed eCW1 ([facility]) IIV3. This is one of two codes replacing CVX 15, which is being retired. 03/08/2020 06:06:00 AM EDT completed eCW1 ([facility]) IIV3. This is one of two codes replacing CVX 15, which is being retired. 03/08/2020 06:06:00 AM EDT completed eCW1 ([facility]) IIV3. This is one of two codes replacing CVX 15, which is being retired. 03/08/2020 06:06:00 AM EDT completed eCW1 ([facility]) IIV3. This is one of two codes replacing CVX 15, which is being retired. 03/08/2020 06:06:00 AM EDT completed eCW1 ([facility]) IIV3. This is one of two codes replacing CVX 15, which is being retired. 03/08/2020 06:06:00 AM EDT completed eCW1 ([facility]) IIV3. This is one of two codes replacing CVX 15, which is being retired. 03/08/2020 06:06:00 AM EDT completed eCW1 (Formerly [facility]) IIV3. This is one of two codes replacing CVX 15, which is being retired. 03/08/2020 06:06:00 AM EDT completed eCW1 (Formerly [facility]) IIV3. This is one of two codes replacing CVX 15, which is being retired. 03/08/2020 06:06:00 AM EDT completed eCW1 (Formerly [facility]) IIV3. This is one of two codes replacing CVX 15, which is being retired. 03/08/2020 06:06:00 AM EDT completed eCW1 ([facility]ly [facility]) IIV3. This is one of two codes replacing CVX 15, which is being retired. 03/08/2020 06:06:00 AM EDT completed eCW1 ([facility]) IIV3. This is one of two codes replacing CVX 15, which is being retired. 03/08/2020 06:06:00 AM EDT completed eCW1 ([facility]) IIV3. This is one of two codes replacing CVX 15, which is being retired. 03/08/2020 06:06:00 AM EDT completed eCW1 ([facility]) IIV3. This is one of two codes replacing CVX 15, which is being retired. 03/08/2020 06:06:00 AM EDT completed eCW1 ([facility]) IIV3. This is one of two codes replacing CVX 15, which is being retired. 03/08/2020 06:06:00 AM EDT completed eCW1 ([facility]) IIV3. This is one of two codes replacing CVX 15, which is being retired. 03/08/2020 06:06:00 AM EDT completed eCW1 ([facility]) IIV3. This is one of two codes replacing CVX 15, which is being retired. 03/08/2020 06:06:00 AM EDT completed eCW1 (Formerly [facility]) INFLUENZA VIRUS VACCINE QUADRIVAL SPLIT 2019-(66 [...] active Abdomina l Binder/Elastic 3XL - eCW1 ([facility]) Abdominal Binder/Elastic 3XL - Abdominal Binder/Elastic 3XL - 03/05/2021 12:00:00 AM EDT active Abdomina l Binder/Elastic 3XL - eCW1 ([facility]) Abdominal Binder/Elastic 3XL - Abdominal Binder/Elastic 3XL - 03/05/2021 12:00:00 AM EDT active Abdomina l Binder/Elastic 3XL - eCW1 ([facility]) Abdominal Binder/Elastic 3XL - Abdominal Binder/Elastic 3XL - 03/05/2021 12:00:00 AM EDT active Abdomina l Binder/Elastic 3XL - eCW1 ([facility]) Abdominal Binder/Elastic 3XL - Abdominal Binder/Elastic 3XL - 03/05/2021 12:00:00 AM EDT active Abdomina l Binder/Elastic 3XL - eCW1 ([facility]) Abdominal Binder/Elastic 3XL - Abdominal Binder/Elastic 3XL - 03/05/2021 12:00:00 AM EDT active Abdomina l Binder/Elastic 3XL - eCW1 ([facility]) 4 mg 02/28/2021 12:00:00 AM EDT tablets,dose [...] HCl 01/08/2021 01:00:00 AM EDT completed NETSMART ([facility]) Hydroxyzine Hydrochloride 10 MG Oral Tablet hydrOXYzin e HCl 10 MG hydrOXYzine HCl 10 MG 01/08/2021 12:00:00 AM EDT 1.0 {tablet} ac tive hydrOXYzine HCl 10 MG eCW1 ([facility]) Hydroxyzine Hydrochloride 10 MG Oral Tablet hydrOXYzin e HCl 10 MG hydrOXYzine HCl 10 MG 01/08/2021 12:00:00 AM EDT 1.0 {tablet} ac tive hydrOXYzine HCl 10 MG eCW1 ([facility]) Hydroxyzine Hydrochloride 10 MG Oral Tablet hydrOXYzin e HCl 10 MG hydrOXYzine HCl 10 MG 01/08/2021 12:00:00 AM EDT 1.0 {tablet} ac tive hydrOXYzine HCl 10 MG eCW1 ([facility]) Hydroxyzine Hydrochloride 10 MG Oral Tablet hydrOXYzin e HCl 10 MG hydrOXYzine HCl 10 MG 01/08/2021 12:00:00 AM EDT 1.0 {tablet} ac tive hydrOXYzine HCl 10 MG eCW1 ([facility]) Hydroxyzine Hydrochloride 10 MG Oral Tablet hydrOXYzin e HCl 10 MG hydrOXYzine HCl 10 MG 01/08/2021 12:00:00 AM EDT 1.0 {tablet} ac tive hydrOXYzine HCl 10 MG eCW1 ([facility]) Hydroxyzine Hydrochloride 10 MG Oral Tablet hydrOXYzin e HCl 10 MG hydrOXYzine HCl 10 MG 01/08/2021 12:00:00 AM EDT 1.0 {tablet} ac tive hydrOXYzine HCl 10 MG eCW1 ([facility]) Hydroxyzine Hydrochloride 10 MG Oral Tablet hydrOXYzin e HCl 10 MG hydrOXYzine HCl 10 MG 01/08/2021 12:00:00 AM EDT 1.0 {tablet} ac tive hydrOXYzine HCl 10 MG eCW1 ([facility]) Hydroxyzine Hydrochloride 10 MG Oral Tablet hydrOXYzin e HCl 10 MG hydrOXYzine HCl 10 MG 01/08/2021 12:00:00 AM EDT 1.0 {tablet} ac tive hydrOXYzine HCl 10 MG eCW1 ([facility]) Hydroxyzine Hydrochloride 10 MG Oral Tablet hydrOXYzin e HCl 10 MG hydrOXYzine HCl 10 MG 01/08/2021 12:00:00 AM EDT 1.0 {tablet} ac tive hydrOXYzine HCl 10 MG eCW1 ([facility]) Hydroxyzine Hydrochloride 10 MG Oral Tablet hydrOXYzin e HCl 10 MG hydrOXYzine HCl 10 MG 01/08/2021 12:00:00 AM EDT 1.0 {tablet} ac tive hydrOXYzine HCl 10 MG eCW1 ([facility]) Hydroxyzine Hydrochloride 10 MG Oral Tablet hydrOXYzin e HCl 10 MG hydrOXYzine HCl 10 MG 01/08/2021 12:00:00 AM EDT 1.0 {tablet} ac tive hydrOXYzine HCl 10 MG eCW1 ([facility]) Hydroxyzine Hydrochloride 10 MG Oral Tablet hydrOXYzin e HCl 10 MG hydrOXYzine HCl 10 MG 01/08/2021 12:00:00 AM EDT 1.0 {tablet} ac tive hydrOXYzine HCl 10 MG eCW1 ([facility]) Hydroxyzine Hydrochloride 10 MG Oral Tablet hydrOXYzin e HCl 10 MG hydrOXYzine HCl 10 MG 01/08/2021 12:00:00 AM EDT 1.0 {tablet} ac tive hydrOXYzine HCl 10 MG eCW1 ([facility]) Hydroxyzine Hydrochloride 10 MG Oral Tablet hydrOXYzin e HCl 10 MG hydrOXYzine HCl 10 MG 01/08/2021 12:00:00 AM EDT 1.0 {tablet} ac tive hydrOXYzine HCl 10 MG eCW1 ([facility]) Hydroxyzine Hydrochloride 10 MG Oral Tablet hydrOXYzin e HCl 10 MG hydrOXYzine HCl 10 MG 01/08/2021 12:00:00 AM EDT 1.0 {tablet} ac tive hydrOXYzine HCl 10 MG eCW1 ([facility]) Losartan Potassium 100 MG Losartan Potassium 01/07/2021 01:00:00 AM EDT completed NETSMART ([facility]) Spironolactone 25 MG Spironolactone 01/07/2021 01:00:00 AM EDT completed NETSMART ([facility]) 20 mg 01/02/2021 12:00:00 AM EDT tablet [...] {tablet} active Spironolact one 25 MG eCW1 ([facility]) Spironolactone 25 MG Oral Tablet Spironolactone 25 MG 2020 12:00:00 AM EDT 1.0 {tablet} active Spironolact one 25 MG eCW1 ([facility]) Losartan Potassium 50 MG Oral Tablet Losartan Potassium 50 M G 01/01/2021 12:00:00 AM EDT active Losartan Potassium 50 MG eCW1 ([facility]) Spironolactone 25 MG Oral Tablet Spironolactone 25 MG 2020 12:00:00 AM EDT 1.0 {tablet} active Spironolact one 25 MG eCW1 ([facility]) Spironolactone 25 MG Oral Tablet Spironolactone 25 MG 2020 12:00:00 AM EDT 1.0 {tablet} active Spironolact one 25 MG eCW1 ([facility]) Losartan Potassium 100 MG Oral Tablet Losartan Potassium 100 MG 01/01/2021 12:00:00 AM EDT 1.0 {tablet} active Lo sartan Potassium 100 MG eCW1 ([facility]) Losartan Potassium 100 MG Oral Tablet Losartan Potassium 100 MG 01/01/2021 12:00:00 AM EDT 1.0 {tablet} active Lo sartan Potassium 100 MG eCW1 ([facility]) Spironolactone 25 MG Oral Tablet Spironolactone 25 MG 2020 12:00:00 AM EDT 1.0 {tablet} active Spironolact one 25 MG eCW1 ([facility]) Spironolactone 25 MG Oral Tablet Spironolactone 25 MG 2020 12:00:00 AM EDT 1.0 {tablet} active Spironolact one 25 MG eCW1 ([facility]) Spironolactone 25 MG Oral Tablet Spironolactone 25 MG 2020 12:00:00 AM EDT 1.0 {tablet} active Spironolact one 25 MG eCW1 ([facility]) Losartan Potassium 100 MG Oral Tablet Losartan Potassium 100 MG 01/01/2021 12:00:00 AM EDT 1.0 {tablet} active Lo sartan Potassium 100 MG eCW1 ([facility]) Losartan Potassium 100 MG Oral Tablet Losartan Potassium 100 MG 01/01/2021 12:00:00 AM EDT 1.0 {tablet} active Lo sartan Potassium 100 MG eCW1 ([facility]) Losartan Potassium 100 MG Oral Tablet Losartan Potassium 100 MG 01/01/2021 12:00:00 AM EDT 1.0 {tablet} active Lo sartan Potassium 100 MG eCW1 ([facility]) Losartan Potassium 100 MG Oral Tablet Losartan Potassium 100 MG 01/01/2021 12:00:00 AM EDT 1.0 {tablet} active Lo sartan Potassium 100 MG eCW1 ([facility]) Losartan Potassium 100 MG Oral Tablet Losartan Potassium 100 MG 01/01/2021 12:00:00 AM EDT 1.0 {tablet} active Lo sartan Potassium 100 MG eCW1 ([facility]) Losartan Potassium 100 MG Oral Tablet Losartan Potassium 100 MG 01/01/2021 12:00:00 AM EDT 1.0 {tablet} active Lo sartan Potassium 100 MG eCW1 ([facility]) Spironolactone 25 MG Oral Tablet Spironolactone 25 MG 2020 12:00:00 AM EDT 1.0 {tablet} active Spironolact one 25 MG eCW1 ([facility]) Losartan Potassium 100 MG Oral Tablet Losartan Potassium 100 MG 01/01/2021 12:00:00 AM EDT 1.0 {tablet} active Lo sartan Potassium 100 MG eCW1 ([facility]) Losartan Potassium 100 MG Oral Tablet Losartan Potassium 100 MG 01/01/2021 12:00:00 AM EDT 1.0 {tablet} active Lo sartan Potassium 100 MG eCW1 ([facility]) Spironolactone 25 MG Oral Tablet Spironolactone 25 MG 2020 12:00:00 AM EDT 1.0 {tablet} active Spironolact one 25 MG eCW1 ([facility]) Spironolactone 25 MG Oral Tablet Spironolactone 25 MG 2020 12:00:00 AM EDT 1.0 {tablet} active Spironolact one 25 MG eCW1 ([facility]) Losartan Potassium 100 MG Oral Tablet Losartan Potassium 100 MG 01/01/2021 12:00:00 AM EDT 1.0 {tablet} active Lo sartan Potassium 100 MG eCW1 ([facility]) Losartan Potassium 100 MG Oral Tablet Losartan Potassium 100 MG 01/01/2021 12:00:00 AM EDT 1.0 {tablet} active Lo sartan Potassium 100 MG eCW1 ([facility]) Losartan Potassium 100 MG Oral Tablet Losartan Potassium 100 MG 01/01/2021 12:00:00 AM EDT 1.0 {tablet} active Lo sartan Potassium 100 MG eCW1 ([facility]) Spironolactone 25 MG Oral Tablet Spironolactone 25 MG 2020 12:00:00 AM EDT 1.0 {tablet} active Spironolact one 25 MG eCW1 ([facility]) Losartan Potassium 100 MG Oral Tablet Losartan Potassium 100 MG 01/01/2021 12:00:00 AM EDT 1.0 {tablet} active Lo sartan Potassium 100 MG eCW1 ([facility]) Spironolactone 25 MG Oral Tablet Spironolactone 25 MG 2020 12:00:00 AM EDT 1.0 {tablet} active Spironolact one 25 MG eCW1 ([facility]) Spironolactone 25 MG Oral Tablet Spironolactone 25 MG 2020 12:00:00 AM EDT 1.0 {tablet} active Spironolact one 25 MG eCW1 ([facility]) Spironolactone 25 MG Oral Tablet Spironolactone 25 MG 2020 12:00:00 AM EDT 1.0 {tablet} active Spironolact one 25 MG eCW1 ([facility]) Spironolactone 25 MG Oral Tablet Spironolactone 25 MG 2020 12:00:00 AM EDT 1.0 {tablet} active Spironolact one 25 MG eCW1 ([facility]) Colace 100 MG Colace 12/31/2020 01:00:00 AM EDT co mpleted NETSMART ([facility]) Potassium Chloride Potassium Chloride 12/31/2020 01:00:00 AM EDT 15.0 {mEq} completed NETSMART ([facility]) 15 mEq 12/25/2020 12:00:00 AM EDT tablet,ER particles/cry stals 10 TAKE ONE TABLET BY MOUTH EVERY DAY DIRECTED TAKE ONE TABLET BY MOUTH EVERY DAY DIRECTED SOLD: 12/25/2020 [facility] Lasix 20 MG Lasix 12/24/2020 01:00:00 AM EDT compl eted NETSMART ([facility]) Furosemide 20 MG Oral Tablet [Lasix] Lasix 20 MG Lasix 20 MG 12/24/2020 12:00:00 AM EDT 1.0 {tablet} active Lasix 20 M G eCW1 ([facility]) Furosemide 40 MG Oral Tablet [Lasix] Lasix 40 MG Lasix 40 MG 12/24/2020 12:00:00 AM EDT 1.0 {tablet} active Lasix 40 M G eCW1 ([facility]) Furosemide 40 MG Oral Tablet [Lasix] Lasix 40 MG Lasix 40 MG 12/24/2020 12:00:00 AM EDT 1.0 {tablet} active Lasix 40 M G eCW1 ([facility]) Furosemide 20 MG Oral Tablet [Lasix] Lasix 20 MG Lasix 20 MG 12/24/2020 12:00:00 AM EDT 1.0 {tablet} active Lasix 20 M G eCW1 ([facility]) Furosemide 20 MG Oral Tablet [Lasix] Lasix 20 MG Lasix 20 MG 12/24/2020 12:00:00 AM EDT 1.0 {tablet} active Lasix 20 M G eCW1 ([facility]) Furosemide 20 MG Oral Tablet [Lasix] Lasix 20 MG Lasix 20 MG 12/24/2020 12:00:00 AM EDT 1.0 {tablet} active Lasix 20 M G eCW1 ([facility]) Furosemide 20 MG Oral Tablet [Lasix] Lasix 20 MG Lasix 20 MG 12/24/2020 12:00:00 AM EDT 1.0 {tablet} active Lasix 20 M G eCW1 ([facility]) Furosemide 40 MG Oral Tablet [Lasix] Lasix 40 MG Lasix 40 MG 12/24/2020 12:00:00 AM EDT 1.0 {tablet} active Lasix 40 M G eCW1 ([facility]) Furosemide 20 MG Oral Tablet [Lasix] Lasix 20 MG Lasix 20 MG 12/24/2020 12:00:00 AM EDT 1.0 {tablet} active Lasix 20 M G eCW1 ([facility]) Furosemide 20 MG Oral Tablet [Lasix] Lasix 20 MG Lasix 20 MG 12/24/2020 12:00:00 AM EDT 1.0 {tablet} active Lasix 20 M G eCW1 ([facility]) Furosemide 40 MG Oral Tablet [Lasix] Lasix 40 MG Lasix 40 MG 12/24/2020 12:00:00 AM EDT 1.0 {tablet} active Lasix 40 M G eCW1 ([facility]) Furosemide 20 MG Oral Tablet [Lasix] Lasix 20 MG Lasix 20 MG 12/24/2020 12:00:00 AM EDT 1.0 {tablet} active Lasix 20 M G eCW1 ([facility]) Potassium Chloride CR 15 MEQ UNK 12/24/2020 12:00:00 AM EDT active Potassium Chloride CR 15 MEQ eCW1 ([facility]) Furosemide 40 MG Oral Tablet [Lasix] Lasix 40 MG Lasix 40 MG 12/24/2020 12:00:00 AM EDT 1.0 {tablet} active Lasix 40 M G eCW1 ([facility]) Potassium Chloride CR 15 MEQ UNK 12/24/2020 12:00:00 AM EDT active Potassium Chloride CR 15 MEQ eCW1 ([facility]) Furosemide 20 MG Oral Tablet [Lasix] Lasix 20 MG Lasix 20 MG 12/24/2020 12:00:00 AM EDT 1.0 {tablet} active Lasix 20 M G eCW1 ([facility]) Furosemide 20 MG Oral Tablet [Lasix] Lasix 20 MG Lasix 20 MG 12/24/2020 12:00:00 AM EDT 1.0 {tablet} active Lasix 20 M G eCW1 ([facility]) Furosemide 20 MG Oral Tablet [Lasix] Lasix 20 MG Lasix 20 MG 12/24/2020 12:00:00 AM EDT 1.0 {tablet} active Lasix 20 M G eCW1 ([facility]) Furosemide 40 MG Oral Tablet [Lasix] Lasix 40 MG Lasix 40 MG 12/24/2020 12:00:00 AM EDT 1.0 {tablet} active Lasix 40 M G eCW1 ([facility]) 20 mg 12/24/2020 12:00:00 AM EDT tablet [...] 12:00:00 AM EDT ORAL completed MEDENT ([facility]) Melatonin 10 MG Melatonin 11/30/2020 01:00:00 AM EDT completed NETSMART ([facility]) Ferrous Sulfate 325 (65 Fe) MG Ferrous Sulfate 11/30/2020 01:00:00 AM EDT completed NETSMART ([facility]) Lidocaine Pain Relieving 4 % Lidocaine Pain Relieving 2020 01:00:00 AM EDT completed NETSMAR T ([facility]) MetFORMIN HCl ER (MOD) 500 MG MetFORMIN HCl ER (MOD) 11/30/2020 01:00:00 AM EDT 2.0 {tablet} completed N ETSMART ([facility]) Lidocaine 0.05 MG/MG Topical Ointment LIDOCAINE [...] AM E DT 1.0 {tablet} completed NETSMART ([facility]) Ferrous Sulfate 324 MG Ferrous Sulfate 11/24/2020 01:00:00 AM EDT 1.0 {tablet} completed NETSMART ([facility]) FreeStyle [place] Lite w/Device FreeStyle [place] Lite 11/24 01:00:00 AM EDT completed NETSMAR T ([facility]) Lancets 28 G Lancets 28 G 11/24/2020 01:00:00 AM EDT completed NETSMART ([facility]) Losartan Potassium-HCTZ 100-12.5 MG Losartan Potassium-HCTZ 11/24/2020 01:00:00 AM EDT 1.0 {tablet} completed N ETSMART ([facility]) Colace 100 MG Colace 11/24/2020 01:00:00 AM EDT 1.0 {tablet} completed NETSMART ([facility]) MetFORMIN HCl 500 MG MetFORMIN HCl 11/24/2020 01:00:00 AM EDT 1.0 {tablet} completed NETSMART ([facility]) Tylenol Extra Strength 500 MG Tylenol Extra Strength 11/24/2020 01:00:00 AM EDT 0 {tablet} completed NET SMART ([facility]) Tylenol PM Tylenol PM 11/24/2020 01:00:00 AM EDT 1.0 {tablet} completed NETSMART ([facility]) Ciprofloxacin 750 MG Oral Tablet Ciprofloxacin HCl 750 MG Ciprofloxacin HCl 750 MG 11/22/2020 12:00:00 AM EDT 1.0 {tablet} activ e Ciprofloxacin HCl 750 MG eCW1 ([facility]) 750 mg 11/22/2020 12:00:00 AM EDT tablet 20 TAKE ONE TABLET BY MOUTH EVERY 12 HOURS TAKE ONE TABLET BY MOUTH EVERY 12 HOURS SOLD: 11/22/2020 [employer] BLOOD-GLUCOSE METER 2020 12:00:00 AM EDT kit [...] 07/20/2020 12:00:00 AM EST completed MEDENT ([facility]) 250 mg 06/04/2020 12:00:00 AM EST tablet 14 TAKE ONE TABLET BY MOUTH TWICE A DAY FOR 7 DAYS TAKE ONE TABLET BY MOUTH TWICE A DAY FOR 7 DAYS SOLD: 06/04/2020 [facility] Ciprofloxacin 250 MG Oral Tablet [Cipro] Cipro 06/04/2020 12:00: 00 AM EST ORAL completed MEDENT ([facility] 24 HR Metformin hydrochloride 500 MG Extended [...] 12:00:00 AM EDT ORAL completed MEDENT ([facility]) 250 mg 02/24/2020 12:00:00 AM EDT tablet 10 TAKE ONE TABLET BY MOUTH TWICE A DAY FOR 5 DAYS START 3 DAYS PRIOR TO PROCEDURE TAKE ONE TABLET BY MOUTH TWICE A DAY FOR 5 DAYS START 3 DAYS PRIOR TO PROCEDURE SOLD: 02/26/2020 [facility] Ciprofloxacin 250 MG Oral Tablet Ciprofloxacin HCL 02/24/2020 12:00 :00 AM EDT ORAL completed MEDENT ([facility]) NITROFURANTOIN, MACROCRYSTALS 25 MG / Ni trofurantoin, Monohydrate 75 MG Oral Capsule Nitrofurantoin Monohyd Macro 02/23/2020 12:00:00 AM EDT ORAL completed MEDENT ([facility]) 100 mg 02/23/2020 12:00:00 AM EDT [...] type / Coverage type Policy ID Covered constitution party ID Covered constitution party's relationship to rae Policy Rae Plan Information Medicare Medicare Primary [id number] Self [id number] Medicare Medicare Primary [id number] Self [id number] Medicare Medicare Primary [id number] Self [id number] Medicare Medicare Primary [id number] Self [id number] Medicare Medicare Primary [id number] Self [id number] Medicare Medicare Primary [id number] Self MEDICARE A [id number] Self [id number] Medicare Medicare Primary [id number] Self [id number] MEDICARE [id number] Janna [id number] Medicare Medicare Primary [id number] Self [id number] A Medicare Medicare Primary [id number] Self [id number] MEDICARE [id number] xxxxxxxxxxx [id number] [facility] [id number] 89 [id number] BCBS EMPIRE ARASH DIV [id number] SP [id number] EXCELLUS BCBS [id number] xxxxxxxxxxxx [id number] EXCELLUS BCBS [id number] Janna YLS [id number] INSURANCE COVID-19 [id number] [id number] INSURANCE COVID-19 COVID Janna C OVID EMPIRE PLAN [facility] U [id number] Self [id number] ANSI-Commercial [id number] ANSI-Commercial [id number] ANSI-Medicare Part B [id number] [place] Plan [facility] Medigap Part B [id number] Self [id number] [facility] [place] Medigap Part B [id number] Self Medicare [place] Medicare Primary [id number] Self [place] Plan [employer] Medigap Part B [id number] Self EMPIRE BLUE CROSS BLUE SHIELD -O/P [id number] 18 [id number] MEDICARE -O/P [id number] 18 [id number] EMPIRE BLUE CROSS BLUE SHIELD -O/P [id number] 18 [id number] MEDICARE -O/P [id number] 18 [id number] [facility] [id number] SP [id number] BCBS EMPIRE ARASH DIV [id number] SP [id number] MEDICARE [id number] SP [id number] EXCELLUS BLUE CROSS BLUE SHIELD HEA [id number] S [id number] MEDICARE MCA [id number] S [id number] MEDICARE MCA [id number] S [id number] [facility] [id number] SP [id number] BCBS EMPIRE ARASH DIV [id number] [place] Plan Medigap Part B [id number] [facility] [id number] ANSI-Commercial [id number] ANSI-Medicare Part B [id number] ANSI-Medicare Part B [id number] ANSI-Commercial [id number] ANSI-Commercial [id number] ANSI-Medicare Part B [id number] MEDICARE [id number] SP [id number] A ANSI-Medicare Part B [id number] ANSI-Commercial [id number] ANS-Medicare Part B [id number] Problems, Conditions, and Diagnoses Code Display Name Description Problem Type Effective Dates Data Source(s) C22.0 Liver cell carcinoma Liver cell carcinoma Diagnosis 04/09/2021 12:00:00 AM [facility] new pt new pt Diagnosis 03/04/2021 12:00:00 AM ED [facility] N21.0 Calculus in bladder Calculus in bladder Diagnosis 1 08:25:00 AM EDT [facility] N32.81 Overactive bladder Overactive bladder Diagnosis 07/2019 08:25:00 AM EDT [facility] J98.8 Other specified respiratory disorders Ot her specified respiratory disorders Diagnosis 02/26/2020 11:08:19 AM EDT [facility] U07.1 COVID-19 COVID-19 Diagnosis 02/26/2020 11:08:19 AM ED T [facility] C22.0 Primary malignant neoplasm of liver Primary valeri gnant neoplasm of liver Problem 03/20/2021 12:00:00 AM EDT [facility] ([facility]) K92.2 Gastrointestinal hemorrhage Gastrointestinal hemorrhag e Problem 03/20/2021 12:00:00 AM EDT [facility] ([facility]) 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 Problem 03/05/20 12:00:00 AM EDT eCW1 ([facility]) C22.0 [id number] Hepatocellular carcinoma Problem 02/15/2021 12:00:00 AM EDT eCW1 ([facility]) R16.0 [id number] Liver mass, right lobe Problem 01/17/2021 12 :00:00 AM EDT eCW1 ([facility]) R18.8 [id number] Other ascites Problem 01/17/2021 12:00:00 AM EDT eCW1 ([facility]) K76.0 [id number] Fatty liver Problem 01/01/2021 12:00:00 AM E DT eCW1 ([facility]) D64.9 [id number] Chronic anemia Problem 11/28/2020 12:00:00 A M EDT eCW1 ([facility]) C61 Malignant neoplasm of prostate Malignant neoplasm of p rostate Problem 11/24/2020 01:00:00 AM EDT NETSMART ([facility] ) 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 Malignant neoplasm of ur ethra Problem 11/24/2020 01:00:00 AM EDT NETSMART ([facility] ) E11.9 Type 2 diabetes mellitus without complic ations Type 2 diabetes mellitus without complications Problem 11/24/2020 01:00:00 AM EDT NETSMART ([facility]) I10 Essential (primary) hypertension Essential (primary) h ypertension Problem 11/24/2020 01:00:00 AM EDT NETSMART ([facility] ) R78.81 Bacteremia Bacteremia Problem 11/24/2020 01:00:00 AM ED T NETSMART ([facility]) 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 Pseudomonas (aeruginosa) (mallei) (pseud omallei) as the cause of diseases classified elsewhere Problem 11/24/2020 01:00:00 A M EDT NETSMART ([facility]) K74.60 Unspecified cirrhosis of liver Unspecified cirrhosis o f liver Problem 11/24/2020 01:00:00 AM EDT NETSMART ([facility] ) D69.6 Thrombocytopenia, unspecified Thrombocytopenia, unspec ified Problem 11/24/2020 01:00:00 AM EDT NETSMART ([facility] ) Z46.6 Encounter for fitting and adjustment of urinary device Encounter for fitting and adjustment of urinary device Problem 11/24/2020 01:00:00 AM EDT NETSMART ([facility]) Z43.6 Encounter for attention to other artific ial openings of urinary tract Encounter for attention to other artificial openings of urinary tract Problem 11/24/2020 01:00:00 AM EDT NETSMART ([facility] ) Z79.84 group home (current) use of oral hypoglyc emic drugs [employer] (current) use of oral hypoglycemic drugs Problem 11/24/2020 01:00:00 AM EDT NE TSMART ([facility]) Z90.89 Acquired absence of other organs Acquired absenc e of other organs Problem 11/24/2020 01:00:00 AM EDT NETSMART ([facility]) Z90.79 Acquired absence of other genital organ( s) Acquired absence of other genital organ(s) Problem 11/24/2020 01:00:00 AM EDT NETSMART ([facility]) Z90.6 Acquired absence of other parts of urina ry tract Acquired absence of other parts of urinary tract Problem 11/24/2020 01:00:00 AM EDT NETSMART ([facility]) 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 Problem 11/24/2020 01:00:00 AM EDT [facility]SMART ([facility]) 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/DAY 35 MINUTES 03/11/2021 12:00:00 AM EDT [facility] ([facility]/DAY 15 MINUTES 02/18/2021 12:00:00 AM EDT [facility] ([facility]) [facility]/DAY 25 MINUTES 02/17/2021 12:00:00 AM EDT MED[facility] ([facility]) Electrocardiogram Interpretation & Report Only 021 12:00:00 AM EDT MEDENT ([facility]) OFFICE OUTPATIENT VISIT 15 MINUTES 02/14/2021 12:00:00 AM EDT [facility] ([facility]) OFFICE OUTPATIENT VISIT 15 MINUTES 01/22/2021 12:00:00 AM EDT [facility] ([facility]) Electrocardiogram Interpretation & Report Only 021 12:00:00 AM EDT MED[facility] ([facility]) APPENDECTOMY 11/13/2020 12:00:00 AM EDT M EDENT ([facility]) Cystectomy, And Ileal Loop 11/13/2020 12:00:00 AM EDT [facility] ([facility]) ECG ROUTINE ECG W/LEAST 12 LDS W/I&R 11/07/2020 12:00: 00 AM EDT eCW1 ([facility]) INSJ TEMP NDWELLG BLADDER CATHETER SIMPLE 09/25/2020 1 2:00:00 AM EDT [facility] ([facility]) OFFICE OUTPATIENT VISIT 40 MINUTES 09/10/2020 12:00:00 AM EDT [facility] ([facility]) INSJ TEMP NDWELLG BLADDER CATHETER SIMPLE 08/22/2020 1 2:00:00 AM EDT [facility] ([facility]) CYSTOURETHROSCOPY 08/03/2020 12:00:00 AM EST [facility] ([facility]) OFFICE OUTPATIENT VISIT 10 MINUTES 08/03/2020 12:00:00 AM EST [facility] ([facility]) Sars-Cov-2 (Covid-19) vaccine,Pfizer, LNP-S, PF, 30 mcg/ 0.3 mL 07/29/2020 12:00:00 AM EST [facility] ([facility]) OFFICE OUTPATIENT VISIT 25 MINUTES 07/20/2020 12:00:00 AM EST [facility] ([facility]) Sars-Cov-2 (Covid-19) vaccine,Pfizer, LNP-S, PF, 30 mcg/ 0.3 mL 07/08/2020 12:00:00 AM EST [facility] ([facility]) INSJ TEMP NDWELLG BLADDER CATHETER SIMPLE 06/21/2020 1 2:00:00 AM EST [facility] ([facility]) US RETROPERITONEAL REAL TIME W/IMAGE LIMITED 0 12:00:00 AM EST [facility] ([facility]) US RETROPERITONEAL REAL TIME W/IMAGE LIMITED 0 12:00:00 AM EST [facility] ([facility]) OFFICE OUTPATIENT VISIT 25 MINUTES 05/30/2020 12:00:00 AM EST [facility] ([facility]) INSJ TEMP NDWELLG BLADDER CATHETER SIMPLE 05/22/2020 1 2:00:00 AM EST [facility] ([facility]) INSJ TEMP NDWELLG BLADDER CATHETER SIMPLE 04/20/2020 1 2:00:00 AM EST [facility] ([facility]) INSJ TEMP NDWELLG BLADDER CATHETER SIMPLE 03/22/2020 1 2:00:00 AM EDT [facility] ([facility]) CARLENE POST-VOIDING RESIDUAL URINE&/BLDR CAP 03/22/2020 12:00:00 AM EDT [facility] ([facility]) CARLENE POST-VOIDING RESIDUAL URINE&/BLDR CAP 03/20/2020 12:00:00 AM EDT [facility] ([facility]) CARLENE POST-VOIDING RESIDUAL URINE&/BLDR CAP 03/16/2020 12:00:00 AM EDT [facility] ([facility]) Cystourethroscopy,/W Injects For Chemodenervation Of The Geoff dder 03/02/2020 12:00:00 AM EDT [facility] ([facility]) History & Physical 02/24/2020 12:00:00 AM EDT [facility] ([facility]) Results ID Date Data Source [id number] 04/09/2021 08:41:[address] [facility] Name Value Range Interpretation Code Description Data Ema rce(s) Supporting Document(s) History and Physical [facility] SZRJAl9dRzUVVmDr28/PEYvwHMRgn3FxTOwpKLx5JDzwSAAmU9SlVMJ8mE3rMNL0SGwKWxSoHvRaQGG3 lbm [file] [id number]/customer operations associate+W//[id number] [file] ID Date Data Source [id number] 04/09/2021 08:22:[address] [facility] Name Value Range Interpretation Code Description Data Ema rce(s) Supporting Document(s) Leukocytes [#/volume] in Blood by Automated count 3.9 10*3/uL 4-10 [facility] Erythrocytes [#/volume] in Blood by Automated count 2.94 10*6/uL 4.6- 6.1 [facility] Hemoglobin [Mass/volume] in Blood 8.3 g/dL 13.5-18 L [facility] Hematocrit [Volume Fraction] of Blood by Automated count 24.7 % 4 1-53 [facility] Erythrocyte mean corpuscular volume [Entitic volume] by Auto mated count 84.2 fL 80-96 [facility] Erythrocyte mean corpuscular hemoglobin [Entitic mass] by Automated count 28.1 pg 27-33 [facility] Erythrocyte mean corpuscular hemoglobin concentration [Mass/volume] by [facility] 33.4 g/[facility].0[facility] width [Ratio] by Automated count 16.4 % 11.5-14.5 [facility] Platelets [#/volume] in Blood by Automated count 133 10*3/uL 150-400 [facility] Differential cell count method - Blood [facility] Neutrophils/100 leukocytes in Blood by Automated count 75 % [facility] Lymphocytes/100 leukocytes in Blood by Automated count 7 % [facility] Monocytes/100 leukocytes in Blood by Automated count 10 % [facility] Eosinophils/100 leukocytes in Blood by Automated count 6 % [facility] Basophils/100 leukocytes in Blood by Automated count 2 % [facility] Neutrophils [#/volume] in Blood by Automated count 3.00 10*3/uL 1.8-7 .0 [facility] Lymphocytes [#/volume] in Blood by Automated count 0.26 10*3/uL 1.2-4 .0 L [facility] Monocytes [#/volume] in Blood by Automated count 0.39 10*3/uL 0-0.8 [facility] Eosinophils [#/volume] in Blood by Automated count 0.24 10*3/uL 0-0.5 [facility] Basophils [#/volume] in Blood by Automated count 0.06 10*3/uL 0-0.2 [facility] Nucleated erythrocytes/100 leukocytes [Ratio] in Blood by Automated count 0 /100{WBCs} 0-0 [facility] ID Date Data Source [id number] 04/09/2021 08:38:[address] [facility] Name Value Range Interpretation Code Description Data Ema rce(s) Supporting Document(s) Prothrombin time (PT) 14.9 s 11.6-14.0 [facility] INR in Platelet poor plasma by Coagulation assay 1.21 [facility] Routine intensity oral anticoagulation I NR is typically 2.0-3.0. Target INR must be clinically individualized. ID Date Data Source [id number] 04/09/2021 08:43:[address] [facility] Name Value Range Interpretation Code Description Data Ema rce(s) Supporting Document(s) Albumin [Mass/volume] in Serum or Plasma by Bromocresol green (BCG) dye binding method 3.0 g/dL 3.5-5.2 [facility] Bilirubin.total [Mass/volume] in Serum or Plasma 0.5 mg/dL <1.2 [facility] Calcium [Mass/volume] in Serum or Plasma 10.7 mg/dL 8.8-10.2 [facility] Chloride [Moles/volume] in Serum or Plasma 102 mmol/L 98-107 [facility] Creatinine [Mass/volume] in Serum or Plasma 1.50 mg/dL 0.70-1.20 [facility] Glucose [Mass/volume] in Serum or Plasma 114 mg/dL 70-140 [facility] Alkaline phosphatase [Enzymatic activity/volume] in Serum or Plasma 181 U/L 40-129 [facility] Potassium [Moles/volume] in Serum or Plasma 4.9 mmol/L 3.4-5.1 [facility] Protein [Mass/volume] in Serum or Plasma 7.4 g/dL 6.4-8.3 [facility] Sodium [Moles/volume] in Serum or Plasma 130 mmol/L 136-145 [facility] Aspartate aminotransferase [Enzymatic activity/volume] in Serum or Plasma 90 U/L <40 [facility] Urea nitrogen [Mass/volume] in Serum or Plasma 55 mg/dL 8-23 [facility] Osmolality of Serum or Plasma by calculation 286 mosm/kg 275-300 [facility] Creatinine/Urea nitrogen [Mass Ratio] in Serum or Plasma 37 [facility] Bicarbonate [Moles/volume] in Serum 15 mmol/L 22-29 [facility] Alanine aminotransferase [Enzymatic activity/volume] in Seru m or Plasma 66 U/L <41 [facility] Anion gap 3 in Serum or Plasma 13 mmol/L 8-15 [facility] Glomerular filtration rate/1.73 sq M pre dicted among non-blacks [Volume Rate/Area] in Serum or Plasma by Creatinine-based formula (MDRD) 43 mL/min/1.73m2 >60 [facility] Glomerular filtration rate/1.73 sq M pre dicted among blacks [Volume Rate/Area] in Serum or Plasma by Creatinine-based formula (MDRD) 49 mL/min/1.73m2 >60 [facility] ID Date Data Source [id number] 04/09/2021 07:41:[address] [facility] Name Value Range Interpretation Code Description Data Ema rce(s) Supporting Document(s) Glucose [Mass/volume] in Capillary blood by Glucometer 106 mg/dL 70- 140 [facility] ID Date Data Source MAGNESIUM LEVEL 04/08/2021 12:00:00 AM EST eCW1 ([facility]) Name Value Range Interpretation Code Description Data Ema rce(s) Supporting Document(s) 2.4 1.8-2.4 MAGNESIUM LEVEL eCW1 ([facility]) ID Date Data Source Basic Metabolic Profile (BMP) 04/08/2021 12:00:00 AM EST eCW 1 ([facility]) Name Value Range Interpretation Code Description Data Ema rce(s) Supporting Document(s) 155 70-100 GLUCOSE, FASTING eCW1 ([facility]) 45 7-18 BLOOD UREA NITROGEN eCW1 ([facility]) 135 136-145 SODIUM LEVEL eCW1 ([facility]) 41.0 >42 GLOMERULAR FILTRATION RATE eCW 1 ([facility]) 1.72 0.70-1.30 CREATININE FOR GFR eCW1 ([facility]) 5.2 3.5-5.1 POTASSIUM SERUM eCW1 ([facility]) 20 21-32 CARBON DIOXIDE LEVEL eCW1 ([facility]) 11.0 8.8-10.2 CALCIUM LEVEL eCW1 ([facility]) 107 98-107 CHLORIDE LEVEL eCW1 ([facility]) ID Date Data Source CBC with Differential 04/08/2021 12:00:00 AM EST eCW1 ([facility]) Name Value Range Interpretation Code Description Data Ema rce(s) Supporting Document(s) 3.01 4.30-6.10 RED BLOOD COUNT eCW1 ([facility]) 4.0 4.0-10.0 WHITE BLOOD COUNT eCW1 ([facility]) 8.3 13.5-17.5 HEMOGLOBIN eCW1 ([facility]) 86.0 80.0-96.0 MEAN CORPUSCULAR VOLUME e CW1 ([facility]) 25.9 42.0-52.0 HEMATOCRIT eCW1 ([facility]) 178 150-450 PLATELET COUNT, AUTOMATED eCW1 ([facility]) 27.6 27.0-33.0 MEAN CORPUSCULAR HEMOGLOB IN W1 ([facility]) 15.9 11.5-14.5 RED CELL DISTRIBUTION WID TH eCW1 ([facility]) 32.0 32.0-36.5 MEAN CORPUSCULAR HGB CONC W1 ([facility]) 66.1 36.0-66.0 NEUTROPHILS % eCW1 ([facility]) 10.4 24.0-44.0 LYMPH % eCW1 ([facility]) 14.1 2.0-8.0 MONO % eCW1 ([facility]) 7.3 0.0-3.0 EOS % eCW1 ([facility]) 1.8 0.0-1.0 BASO % eCW1 ([facility]) 2.6 1.5-8.5 NEUTROPHILS # eCW1 ([facility]) 0.4 1.5-5.0 LYMPH # eCW1 ([facility]) 0.3 0.0-0.5 EOS # eCW1 ([facility]) 0.6 0.0-0.8 MONO # eCW1 ([facility]) 0.1 0.0-0.2 BASO # eCW1 ([facility]) ID Date Data Source [id number] 04/05/2021 12:51:04 PM EDT [facility] Name Value Range Interpretation Code Description Data Ema rce(s) Supporting Document(s) Progress Note [facility] MIWXEc0cGgUBVjFx88/VYOobDABzy2CsVEohZRc5CFuxIEPuA3EdLLO7cH0qAOR0WErTNlPwYgEnRIG7 lbm YsZmrNTuErFNFzNqfRWxPlIXnoSuuwtLQmXA8AbYZ1KAKdT91bXQGnEUIuB1TaXEH1LSa+Zr7ZNURwkR XbDQ8ZXfjJ8WeiJwfVKE9ofl8svJqPEhL1h4vji3dRMIrRZBvuA5Fd8WfQx48y8+faJin/toic3aUaDo jWVFUTRfBkd+dQcS4tlA1YMRWww6T+1DyIZ8W/628D u3X4XGs/asbogyTeVy6CZiDD2ZZHZMuQz6Jd/mH9ruK033pPcizA01XFBC2M5YzJV/3By+SbRf0QIP72 KIswYGYbBexHPROR1HEB1Cimgje7ynSRpE2QKtdGVDhBbrv3VHIKSVpioaTTDL3+gymyOnx1LRPVylWk PF79CQDMRl5aALbGDgl//1qpca98hWFHUOo61WkXlk ELQSzYu0ZIc+DRpyYO3ELrduJEuR9HvrG2SalUY02E6LxsFrd4DIEnG0/+IhZDu/OW5cvnJDQsDWlwWj Bslt79CRpQM9o+QKsiflbjeLYSx/E0GS2i+k63fpydZ9TIiPnN3btyE69fbBpBZlQ+4cugMutINS5bVq lCpGsR8l3TEv4KPszn7dC0Rw1NI9Afb4PJBfO394d/ jnnJuNzJj0LyHjKBBsspL9i/DGvnHZ+0wHjGEhf1pc5LswHJeoAgj3m5Kv58XdQCQU8So1Z0uDzqQuHg u9AahuGxoD7dyn666U4bHUMOWWn8ZSVoV1oanTYQhZHhVV7b4htJz6GSpM2IOblFEliNHfIOS5Zjf/RR rmwEtxXMHUgjHsU3YBNJM2gyuVeSLf66JHN4NuwTvC 25AkWJxMbFGZcEL8PmXFceP39R39K0L3NbdrULUARyhHdxuwVFfiPfVPkzCZgeAU6aBSJZTAVDkfEGe2 QSIldQlbMtGzInh17D982732ubZv4wy5wYuBKSM0B/uN7x6upPFdXstY1kUSoQVSquzY9+R/WvDDxfJF /Kg4uapnAajBcCq+pPgSIQXEExe9SGG3Ou6AI+3/HINOJOSA [file] TgOHDuCekaHvTwXI2JKs7PTeI6ICC3hFMiHh1CCTm0HXHGMpDkYG2UXLh= ID Date Data Source [id number] 04/05/2021 12:51:00 PM EDT [facility] Name Value Range Interpretation Code Description Data Ema rce(s) Supporting Document(s) SARS-CoV-2 RNA 2019 nCoV Real-Time RT-PCR: NOT DETECTED [facility] This lab was ordered by [facility] and reported by [facility]. 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 [facility] Patient has symptoms related to [facility] When did you start to experience these symptoms [Date and time] [Phen X] [facility] Patient was hospitalized because of this condition [facility] patient was admitted to ICU for [facility] Patient resides in a congregate care setting [facility] status [facility] ID Date Data Source [id number] 03/31/2021 05:03:49 PM EDT [facility] Name Value Range Interpretation Code Description Data Ema rce(s) Supporting Document(s) Progress Note [facility] KNRQGt2iErRBSeFf92/SCMvxUJCnm8PwADdpCCb4BUmxGFIbK6KvLQS6rC8qGLT6ISzLJiNyQpXwRRBh lbm [file] ICAgICAgICAgICAgICAgICAgICAgICAgICAgICAgIC AgICAgICAgICAgICAgICAgICAgICAgICAgICAgICAgICAgICAgICAgICAgICAgICAgICAgDQogICAgIC AgICAgICAgICAgICAgICAgICAgICAgICAgICAgICAgICAgICAgICAgICAgICAgICAgICAgICAgICAgIC AgICAgICAgICAgICAgICAgICAgICAgICAgICAgICAg ICAgDQogICAgICAgICAgICAgICAgICAgICAgICAgICAgICAgICAgICAgICAgICAgICAgICAgICAgICAg ICAgICAgICAgICAgICAgICAgICAgICAgICAgICAgICAgICAgICAgICAgICAgDQogICAgICAgICAgICAg ICAgICAgICAgICAgICAgICAgICAgICAgICAgICAgIC AgICAgICAgICAgICAgICAgICAgICAgICAgICAgICAgICAgICAgICAgICAgICAgICAgICAgICAgDQogIC AgICAgICAgICAgICAgICAgICAgICAgICAgICAgICAgICAgICAgICAgICAgICAgICAgICAgICAgICAgIC AgICAgICAgICAgICAgICAgICAgICAgICAgICAgICAg ICAgICAgDQogICAgICAgICAgICAgICAgICAgICAgICAgICAgICAgICAgICAgICAgICAgICAgICAgICAg ICAgICAgICAgICAgICAgICAgICAgICAgICAgICAgICAgICAgICAgICAgICAgICAgDQogICAgICAgICAg ICAgICAgICAgICAgICAgICAgICAgICAgICAgICAgIC AgICAgICAgICAgICAgICAgICAgICAgICAgICAgICAgICAgICAgICAgICAgICAgICAgICAgICAgICAgDQ ogICAgICAgICAgICAgICAgICAgICAgICAgICAgICAgICAgICAgICAgICAgICAgICAgICAgICAgICAgIC AgICAgICAgICAgICAgICAgICAgICAgICAgICAgICAg ICAgICAgICAgDQogICAgICAgICAgICAgICAgICAgICAgICAgICAgICAgICAgICAgICAgICAgICAgICAg ICAgICAgICAgICAgICAgICAgICAgICAgICAgICAgICAgICAgICAgICAgICAgICAgICAgDQogICAgICAg ICAgICAgICAgICAgICAgICAgICAgICAgICAgICAgIC AgICAgICAgICAgICAgICAgICAgICAgICAgICAgICAgICAgICAgICAgICAgICAgICAgICAgICAgICAgIC DdXGv3G3jeGRAuBYQqRR8oYPd5Dm5+ZLtDOyDjYWS4oeQttR2DHQ3ek0UeZJtxIZAug3KeUXi7TD7CUI ZaMMjuSA8PFFkytu8IRYIvATFuqFNBv6pwLdUcDEB1 SKSfSzgnLT9BHDNsD0jopsYwANBpHOMMEG5NBcMyQ7MisT66PXKDIt2+ZRmtodPjJcmMRgG7UIZqm5To TLz7GG4QOFNmOzljr5ZdLkJdLYXOWZbdTF0CBNT7LTGzUWFePm8DUGUjF523ldXyBS5RPf6MWgBuUI3w ku8IFpMaXEFmHixGWlv1YFbsGU9EkFSkIZgXfi2wqw OslfKDe8DsqjBjsULOQEo2cKIRVPWwQUYLZxVolOPsDC5oBA2yDFEwCMVgGbS9GJFQCN4JJKDmEPRhlN UxJYLrILAOLG6SLWfyNAR0FVVzadDeqZVsYEfsAI1DZYIkalNkJPjlDFLSNNl+Sj7EVF9gt3TpTNayAX AtPZ8czy5WMYqUFnXrC3V6sOTwH2U1MOmiCd2UXNIt JQEmYJufPJPTAQtjKF1QZM6ibcN2FQ1LrAAlEYKaQNSbnNZbQIv8Q46pmRDaOLlvLK0NMMD+Earl+Pg0K TFRgHRVkQTJlSnReYIOPTpWcE8QlV5QXa7KgE1RiVJ54jYtnfiDjQAcrOK6RKN2kCYBlTJPCTZ3WbYHq xR9spoXiWWFsLXDMSoJqK49svOAnFAMcYHP4SNVzHq 1XQJXzM4SoylOtpNojxySnSITaGEIBQB0OEIckxxHdtFQzvFdfRJ36cQpoAA1RLw6XDfMtKK4hag7JmH PoHf8XYYLnAr5DHVYlMIRoBHRsLAE3DLEmEoFyYCniBVBnLRArXCM4COVoXJVmNZ7QEyBiLUJiGItmRg JsBIPzSPOhzn0YKGUnSLAcUBc6WDViKWBxTXHiNWpr RUTcKBSfWSZ4ZSMrYPUcVE3YErZvPWGmQAQ2IIqhEEVaVQKner9WBLFzDBUqDyB3WgFuTMPhPQCoHCno OJWlRIWdQTVnZEZkAMBmGU7MIoUrNITcNHGlFLceTTTyBNJicb2RORJnVEYwGqJ1TfFjKDDjIBObEWku OUWzVFL9JrF7NAGdCGXbBC9TZzErZCKcQFI2FRyeTU WsUFDbmt3VYDNiKRInJUbsFEWdUQNdDOUhHZwvYBZpYHK5KWf9CRMlIIRmYJ8EQhPeKIUjLPA6AYLsKM QiKJDjnb0OWLXnIJPjTcPvRUClCFBvFNQvOKgwQEXxGEO2BMM4PXWbGAFzYY1TRpBaVLVeGQarYOYuBO BzSBHwjf9FZWOiDNCcLcRhESVsEXHfSHAxAMhjCETg VYL6ANU2ZFXhCFSyYV3XWrFoEBUpMJa5RGjwWYAcWTPdwd5BWFYtUCLiWFR5FALdOASzYOQeFMs0jlHf dWMjGPu2MK4ET1ZcefLaDuTTVj9Ls653NBYhNXSrRm6DY5rjNv6sFBEoZDWUTm4FMYo9EIR6NFT9J6Th XGLeAVBzGtL6DNMaEBFmIEE5OqU7MFK+ONx7PQkfYO p9JhVyCCXwRrBiVqAvPOG5SZV0QlsvHrmrDN1nTLTLYv8+FCupoSAexBkmBYDMJsJ4Jhs8PLdtAZIDQn 0K ID Date Data Source [id number] 03/31/2021 05:03:44 PM EDT [facility] Name Value Range Interpretation Code Description Data Ema rce(s) Supporting Document(s) Progress Note [facility] IJVCTe4oNiDSFdMw98/MQMylUISxj9NnXMqkCNv0JLdcLBVpH9VuXMH1xT3gJEF6KPhNFvPuZeUyXSZc lbm [file] ICAgICAgICAgICAgICAgICAgICAgICAgICAgICAgIC VyDRPpEMTtNWQhKIUjIB7FXRCjWTEtVKTmZNMqREWbPPEvYHYeQEYeXPFnLBNpOWOoMLMnJLQnYYNySG HwWTDgJIZbGODfLQYaEXPkVSLlLFNqVDDgWYErDJJlCYHyNQXqIYKbEOEsFQWmIFXwRICjRUSwKX1WZS AgICAgICAgICAgICAgICAgICAgICAgICAgICAgICAg ICAgICAgICAgICAgICAgICAgICAgICAgICAgICAgICAgICAgICAgICAgICAgICAgICAgICAgICAgICAg QJJuTHEgYA9BROMrRSQhGZFdIMPmBDNfFUQvWMFlFZZoHMLbUWEnCINqUGWzTJZbQHYlUUThHSBmRIMe ICAgICAgICAgICAgICAgICAgICAgICAgICAgICAgIC ExMENsHGRyXVPqHYWsJHXiHD7EAHNiABGsNEDeXXOtADUlLYOkKYGfVYThSDSmOXNxOQLcVDNyIADaXG AgICAgICAgICAgICAgICAgICAgICAgICAgICAgICAgICAgICAgICAgICAgICAgICAgICAgICAgICAgIA 0KICAgICAgICAgICAgICAgICAgICAgICAgICAgICAg ICAgICAgICAgICAgICAgICAgICAgICAgICAgICAgICAgICAgICAgICAgICAgICAgICAgICAgICAgICAg MRWaHAFsOCDkSF1FMTFgLWWhVYMhXZDqIUTpAIAtLMKzXGNfLSOpMEBlBSNdHFLxLWYfKEJqIFOkRCXl ICAgICAgICAgICAgICAgICAgICAgICAgICAgICAgIC WcOCQbUETrOWDjWVCeACRlWERjWL7KJGAhRDOyZWSuZIDsKRLqDPLnBLFyWANuRZHqVMOvGGNwTOTfGT AgICAgICAgICAgICAgICAgICAgICAgICAgICAgICAgICAgICAgICAgICAgICAgICAgICAgICAgICAgIC HkEV3OZKPfBOPcLRPrBLDlERAxCAUuLMAqVNRaWQWh ICAgICAgICAgICAgICAgICAgICAgICAgICAgICAgICAgICAgICAgICAgICAgICAgICAgICAgICAgICAg ZDDxZMEuYXCcLVIzKG3FBJFlKQPcEELlPMDxRVGgWIVhCWEyAHFgVUIfKNXzYYTuFTRaVORkHHCuKBQg ICAgICAgICAgICAgICAgICAgICAgICAgICAgICAgIC KhIJYcQOElWWRcQMTsWCQkQSWmWXRvLK7MLN69kDPme3L2TWRcQI2esea/Tc7KRUwfnwPmoLJgJQ9ISc InPX2zcm4REmJdLL3zfp9GDGlYNdRvB6T6rQGuUUGiQALNTbQpH24sZSwvZk04PGfnDHWqLdAzHKm9Cf 0OStHnP7oyIHOsZaB0UDPbOmS0BWCmEoO7VDYlLrCe CDMqZPGlYNJrMWRLYF9WJbBrK1UmdU14RGNUGl0+LZofcyNaSvpJHhX2BLBdd3QuIDq5UQ8NRVFoZwyz q8RtFtryRARFVGdhRB0THWK7MZL4SUEcVb7ZHMRoO876rnMtGS2PBj1ZPpYfEZ3psj0FYqdyFYVpMhwV Afy6NQvyPZ4UrIZpAWgThm1nzfQdhvDYk6EpxzSkcF KOedxziKpnMDivWmFql3NhILPJFUZbmXNuJK0dTU4cQNEgJXJoInN6XYLDAZ3YNLStMQPdyZZjCNObMP GMRZ4BXNncMRJ5LTHubmVgmCEjWGrmBJ5UOOGaabQeAjuaDTUDPXs+Jy9HHI3lv4QoAYtuBYQcDO9hhe 6LIGoNZyVaF6R4rYByW2G4DQsoJz6HXIOuFEPoOsLd PNKOPLmlVS0ADQ8sisD5MK9VfXXiTRLaADLawUGsUXo4G72bsBVyLRtjYR5ENZR+Earl+Wa6UXMXdQUBr WPCuIrMyZRCQCiCkU3ZzC6FJt8HiC9DwTC92hEmvoqIbJOsxYT2ADS5kVKLdIWBCLJ3PrJYgmG4kmhKv AsQrJHIWOmSzU58baTAkAQWxNZY9CYUqMu5QIFBzY0 PrcvFlvPvezsHoLJGgNPTWRL7UCNokcyNdtVExpCtwTN19fTkaZY8YCa4XJdSlMJ9mht8RlTAvBn2LDC NnIL0NHEKqRRNsHUEaKRB6OZCzNvSbFUifPDXtYFEoNST1TFRtDCSaYK6IOnUzKFQrGdDgQQQgLDYsUV Zxxu0TJLIfTZLcNeCcFSYnXEKdVLRlNHfqLCXqTEZk VMG0JCLiNYQxPL1GEhSuMQDfVOW0IYIsJTEdSPOdrb6PQOScECOxSED3WWDcBHOhJYFzVUumLFYkWFO8 AkJ1JLIdXOMxWV3RUkOpBNXgFUy9HrKqWLBsMCSrfj0VCRUlFBTeJDJqFXUxWZDrONLzYPwxTJWlGFPs BUG9SJImIJPdOD2BCnBlHXJzWDH0FFBeCVRhRTRgec 5YAUSuIKJlLjc1DwWvYTAxRZHtKPvnROCyZZP0DWK2URVwYPUfKX6KBfGwITWgIUKgUWFcAGNxRKMfri 9QBOVwHTAnAyRwFSHbLKSyIOHaLUncAOUyLYT1RSLoMVEyKNDlSM9POzUqFHLyBJY4NINtXYApDHAwwo 6SYBIvIKYrHpC2HvNzFPZhTMDuLNbwZRTbKWC4UqE3 PKAtXVZdGC1UIpUfNMSgAOx9OgFtSZYwKSDvoe5HCMZnONLiQFB6RxVeUFUhOWWkSHgtDVFiAFS3Emc1 ZJZeKKPoYI6DJfMoSWZxJox3TGdgXGOkKZJryj8VOVJnBVGoVCY8CwSdLLBmCLSgVVktDAHiIUFpMapj LBNlLZMeXS2WQbNhJYXuWwT4FBEiHPCeAXRijv2NCZ EkZSIwLmI9WRBuSZYwSVIuXQpqIDKhCCDlBnX6OPYmMNHdQI2SOoPiDTYnMzUnJTRgSZPyFLNmjf2TwT WzyIalun1XUCyCYg1NhVfvFPHrAHhpHs9sqKNzVWMkLOAPWq2IwwRoPQPfXFCQZAjxQGMqYYUtMaUiLD P8JOCgFOHtMSTkPyeuYWH0Zly6VeYcHXCnZeB1NQYe ACV5Ycd0FnVkDXTuKMGyFVWiILvfCmmgHQFwLQZ+AZ8xEMe+Ti1Es6UcerS9otEdYOqlXuKfFC4VVFYS T0YNCg== ID Date Data Source [id number] 03/31/2021 11:27:34 AM EDT [facility] Name Value Range Interpretation Code Description Data Ema rce(s) Supporting Document(s) POC GLUCOSE 206 mg/dL (70-99) H [facility] [place] NOTIFIED PROVIDERNOTIFIED NURSEPERFORMED BY CLINICAL STAFF ID Date Data Source [id number] 03/31/2021 09:33:13 AM EDT [facility] Name Value Range Interpretation Code Description Data Ema rce(s) Supporting Document(s) WBC 4.7 10*3/uL (4.1-11.0) [facility] [place] [place] RBC 3.05 10*6/uL (4.60-6.10) L [facility] HGB 8.5 g/dL (13.5-18.0) L [facility] [place] PATIENT TRANSFUSED HCT 25.8 % (41.0-53.0) L [facility] PERFOR[facility] AT [address] [place] [address] MCV 84.6 fL (80.0-95.0) [facility] MCH 28.0 pg (27.0-32.0) [facility] MCHC 33.0 g/dL (32.0-36.0) [facility] RDW 16.2 % (10.5-14.5) [facility] PLT 167 10*3/uL (150-450) [facility] MPV 8.8 fL (7.1-10.7) [facility] ID Date Data Source [id number] 03/31/2021 08:41:39 AM EDT [facility] Name Value Range Interpretation Code Description Data Ema rce(s) Supporting Document(s) POC GLUCOSE 122 mg/dL (70-99) H [facility] PERFORMED BY CLINICAL STAFF ID Date Data Source [id number] 03/30/2021 04:54:35 PM EDT [facility] Name Value Range Interpretation Code Description Data Ema rce(s) Supporting Document(s) POC GLUCOSE 174 mg/dL (70-99) H [facility] PERFORMED BY CLINICAL STAFF ID Date Data Source [id number] 03/30/2021 12:43:48 PM EDT [facility] Name Value Range Interpretation Code Description Data Ema rce(s) Supporting Document(s) POC GLUCOSE 167 mg/dL (70-99) H [facility] NOTIFIED NURSEPERFORMED BY CLINICAL S TAFF ID Date Data Source [id number] 03/30/2021 12:39:34 PM EDT [facility] Name Value Range Interpretation Code Description Data Ema rce(s) Supporting Document(s) WBC 3.2 10*3/uL (4.1-11.0) L [facility] [place] [facility] [place] RBC 2.36 10*6/uL (4.60-6.10) L [facility] HGB 6.6 g/dL (13.5-18.0) L [facility] RESULT(S) CALLED TO AND READ BACK BYGreats ICA 4S AT 1237 ON 03/30/21 [place] [id number] HCT 19.9 % (41.0-53.0) L [facility] [place] [facility] PERFORMED AT [address] [place] [address]YQRORJ(S) CALLED TO AND READ BACK BYGreatsICA 4S AT 1237 [place] 03/30/[place] [id number] MCV 84.3 fL (80.0-95.0) [facility] MCH 27.9 pg (27.0-32.0) [facility] MCHC 33.1 g/dL (32.0-36.0) [facility] RDW 16.8 % (10.5-14.5) H [facility] PLT 141 10*3/uL (150-450) L [facility] MPV 9.3 fL (7.1-10.7) [facility] ID Date Data Source [id number] 03/30/2021 08:35:32 AM EDT [facility] Name Value Range Interpretation Code Description Data Ema rce(s) Supporting Document(s) POC GLUCOSE 119 mg/dL (70-99) H [facility] NOTIFIED NURSEPERFORMED BY CLINICAL S TAFF ID Date Data Source [id number] 03/30/2021 05:31:19 AM EDT [facility] Name Value Range Interpretation Code Description Data Ema rce(s) Supporting Document(s) URINE WBC (0-5) [facility] URINE RBC (0-2) [facility] BACTERIA 2+ [HPF] [facility] ID Date Data Source [id number] 03/30/2021 05:05:22 AM EDT [facility] Name Value Range Interpretation Code Description Data Ema rce(s) Supporting Document(s) COLOR [facility] PERFORMED AT [address] [facility] [address] APPEARANCE [facility] SPEC GRAV URINE 1.011 (1.003-1.030) [facility] PH URINE 6.0 (5.0-7.5) [facility] LEUK ESTERASE (NEG) [facility] CRITERIA FOR CULTURE NOT MET.CULTURE CAN BE ADDED WITHIN 36 HOURS OFCOLLECTION. NITRITE URINE (NEG) [facility] PROTEIN URINE (NEG) [facility] GLUCOSE URINE (NEG) [facility] KETONE URINE (NEG) [facility] [place] [facility] [place] UROBILINOGEN 0.2 mg/dL (0-1.0) [facility] [place] [facility] [place] BILIRUBIN URINE (NEG) [facility] [place] [facility] BLOOD/HGB URINE (NEG) A [facility] [place] [facility] ID Date Data Source [id number] 03/31/2021 12:30:00 AM EDT [facility] [place] [id number] PATIENT NAME: EL LINARES OF : 2REPORT: ADMISSION NOTEPATIENT NUMBER: [id number] STATUS: SDMEDICAL RECORD NUMBER: [id number] OF ADMISSION: 1ROOM: 02 PRIMARY CARE PROVIDER: Анна Braun MD UROLOGIST: Dr. Walker. The patient also follows up with [facility]. CHIEF COMPLAINTS: Recurrent bleeding from the ostomy. HISTORY OF PRESENT ILLNESS: 80-year-old unfortunate male with history of prior bladder cancer requiring a radical cystoprostatectomy with ileal conduit and recently diagnosed hepatocellular carcinoma and scheduled to receive radiation therapy at [facility] presented to the ED with reports of recurrent bleeding from ostomy since Thursday morning. The patient has had multiple episodes of this and was discharged from [facility] in 03/12/2021 with the similar episode requiring [...] portal vein thrombosis, pending radiation therapy at [facility].6. Chronic ascites, on diuretics.7. Recurrent bleeding from [...] recurrent bleeding from the ostomy, discharged from [facility] about three weeks ago and required pressure [...] MD Dictated: 03/30/2021 3:44DT: 03/30/2021 3:51Job #: [id number]: Анна Braun MD NOTE: [facility] computer generated reports are not confirmed orauthenticated unless they are signed by the providerElectronically Authenticated and Edited by:GARETH MONTANA MD on 03/31/2021 12:30 AM EDT Name Value Range Interpretation Code Description Data Ema rce(s) Supporting Document(s) ID Date Data Source [id number] 03/30/2021 01:21:00 AM EDT [facility] Name Value Range Interpretation Code Description Data Ema rce(s) Supporting Document(s) SARS coronavirus 2 RNA [Presence] in Res piratory specimen by JUSTEN with probe detection NOT DETECTED [facility] This lab was reported by [facility] [place] [facility]. ID Date Data Source [id number] 03/30/2021 09:28:37 AM EDT [facility] Name Value Range Interpretation Code Description Data Ema rce(s) Supporting Document(s) SPECIMEN DESCRIPTION [facility] COVID19 RESULT (NDET) [facility] THIS ASSAY AMPLIFIES AND DETECTSTHE TARG ET RNA USING REAL-TIME PCR.TESTING PERFORMED ON THE LookFlow COMMENT [facility] [place] [facility] UNDER AN EMERGENCY USE AUTHORIZATION(EUA ) FOR THE DETECTION AND/OR DIAGNOSISOF THE VIRUS THAT CAUSES COVID-19.NEGATIVE 2019_NCOV RT-PCR RESULTS DONOT PRECLUDE 2019_NCOV INFECTION ANDSHOULD NOT BE USED THE SOLE BASISFOR PATIENT MANAGEMENT DECISIONS. FIRST TEST [facility] [place] [facility] EMPLOYED IN THCARE [facility] SY[facility]TOMATIC [facility] [place] [facility] DATE OF SYMPT ONSET [facility] HOSPITALIZED [facility] [place] [facility] [place] [facility] [place] [facility] CONGREGATE CARE SET [facility] [place] [facility] ID Date Data Source [id number] 03/29/2021 11:53:30 PM EDT [facility] [place] [facility] [place] SPEC EXP DATE 1PATI ENT ABO/Rh A POSITIVEANTIBODY SCREEN NEGATIVETESTING SITE PERFORMED AT [address] [place], [place] [address]OOD BANK COMMENT BLOOD TYPE CONFIRMED. Name Value Range Interpretation Code Description Data Ema rce(s) Supporting Document(s) TYPE AND SCREEN [facility] [place] [facility] PATIENT ABO/Rh A POSITIVE ID Date Data Source [id number] 03/29/2021 11:10:22 PM EDT [facility] [place] [facility] [place] Name Value Range Interpretation Code Description Data Ema rce(s) Supporting Document(s) TOTAL PROTEIN 7.0 g/dL (6.4-8.2) [facility] [place] [facility] ALBUMIN 2.2 g/dL (3.2-4.5) L [facility] [place] [facility] GLOBULIN 4.8 g/dL (2.7-4.3) H [facility] [place] [facility] ALB/GLOB RATIO 0.5 RATIO [facility] [place] [facility] BILIRUBIN,TOTAL 0.4 mg/dL (0.0-1.0) [facility] [place] [facility] PLEASE NOTE:Total bilirubin results may be falselyelevated in patients taking Eltrombopag. BILIRUBIN,CONJUGATED 0.2 mg/dL (0.0-0.3) [facility] BILIRUBIN,UNCONJ. 0.2 mg/dL (0.0-0.7) [facility] [place] [facility] ALKALINE PHOSPHATASE 177 U/L (45-117) H [facility] AST (SGOT) 85 U/L (11-39) H [facility] [place] [facility] ALT (SGPT) 69 U/L (12-78) [facility] [facility] ID Date Data Source [id number] 03/29/2021 11:10:22 PM EDT [facility] [facility] Name Value Range Interpretation Code Description Data Ema rce(s) Supporting Document(s) TROPONIN I <0.05 ng/mL (<0.05) [facility] [place] [facility] [place] Less than 0.05: Myocardial injury unlike lyGreater than or equal to 0.05: Highly suggestive of myocardial injuryCorrelation with rise and/or fall ofserial troponins, clinical symptomsand ECG changes is necessary. ID Date Data Source [id number] 03/29/2021 11:10:22 PM EDT [facility] [place] [facility] Name Value Range Interpretation Code Description Data Ema rce(s) Supporting Document(s) SODIUM 137 mmol/L (136-145) [facility] [place] [facility] POTASSIUM 4.7 mmol/L (3.6-5.2) [facility] [place] [facility] CHLORIDE 105 mmol/L (100-108) [facility] [place] [facility] CO2 22 mmol/L (22-31) [facility] [place] [facility] ANION GAP 10 mmol/L (7-16) [facility] [place] [facility] UREA NITROGEN 39 mg/dL (7-24) H [facility] [place] [facility] CREATININE 1.51 mg/dL (0.80-1.30) H [facility] [place] [facility] BUN/CREAT RATIO 25.8 RATIO (10.0-20.0) H [facility] GLUCOSE 163 mg/dL (70-99) H [facility] [place] [facility] CALCIUM 10.0 mg/dL (8.4-10.2) [facility] [place] [facility] GFR 45 ml/min/1.73m2 (>59) L [facility] [place] [facility] GFR ( AMER) 54 ml/min/1.73m2 (>59) L [facility] [place] [facility] GFR INTERPRETATION [facility] --NORMAL KIDNEY FUNCTION OR MILD DISEASE - GFR >OR= 60CHRONIC KIDNEY DISEASE - GFR 15 - 59RENAL FAILURE - GFR <15 Est. GFR calculation based on the MDRDstudy equation, which assumes a steadystate for creatinine. Est. GFR should notbe used for medication dosing. ID Date Data Source [id number] 03/29/2021 10:52:36 PM EDT [facility] [place] [facility] Name Value Range Interpretation Code Description Data Ema rce(s) Supporting Document(s) PT 11.6 s (9.2-11.9) [facility] [place] [facility] PERFORMED AT [address] [place] [address] INR 1.11 [facility] [place] [facility] SUGGESTED THERAPEUTIC RANGES USING INR F ORSTABILIZED ANTICOAGULATED PATIENTS:STANDARD DOSE THERAPY INR 2.0-3.0 DVT, PE, PREVENT DVT OR EMBOLISMHIGH DOSE THERAPY INR 2.5-3.5 PREVENT EMBOLISM FROM MECHANICAL HEART VALVE ID Date Data Source [id number] 03/29/2021 10:43:14 PM EDT [facility] [place] [facility] Name Value Range Interpretation Code Description Data Ema rce(s) Supporting Document(s) WBC 3.5 10*3/uL (4.1-11.0) L [facility] [place] [facility] [place] RBC 2.67 10*6/uL (4.60-6.10) L [facility] [place] [facility] HGB 7.3 g/dL (13.5-18.0) L [facility] [place] [facility] HCT 22.4 % (41.0-53.0) L [facility] [place] [facility] MCV 83.9 fL (80.0-95.0) [facility] [place] [facility] MCH 27.4 pg (27.0-32.0) [facility] [place] [facility] MCHC 32.7 g/dL (32.0-36.0) [facility] [place] [facility] RDW 16.6 % (10.5-14.5) H [facility] [place] [facility] PLT 173 10*3/uL (150-450) [facility] [place] [facility] MPV 9.1 fL (7.1-10.7) [facility] [place] [facility] NEUT % 71.2 % (35.0-75.0) [facility] [place] [facility] LYMPH % 8.1 % (16.0-52.0) L [facility] [place] [facility] MONO % 12.1 % (0.0-8.0) H [facility] [place] [facility] EOS % 6.5 % (0.0-5.0) H [facility] [place] [facility] BASO % 2.1 % (0.0-4.0) [facility] [place] [facility] NEUT # 2.5 10*3/uL (1.8-7.7) [facility] [place] [facility] LYMPH # 0.3 10*3/uL (1.2-4.8) L [facility] [place] [facility] MONO # 0.4 10*3/uL (0.0-0.8) [facility] [place] [facility] Eosinophils [#/volume] in Blood by Automated count 0.2 10*3/uL (0.0-0 .5) [facility] [place] [facility] BASO # 0.1 10*3/uL (0.0-0.2) [facility] [place] [facility] ID Date Data Source [id number] 03/27/2021 01:51:59 PM EDT [facility] CT THORAX WITH CONTRAST [id number] RESUL TInterpreted by:Hilario Bautista, MDCT thorax.INDICATION: Hepatocellular [...] rce(s) Supporting Document(s) ID Date Data Source [id number] 03/20/2021 09:37:00 AM EDT [facility]) Name Value Range Interpretation Code Description Data Ema rce(s) Supporting Document(s) Glucose [Presence] in Urine Laboratory test result [facility] ([facility] [place]) ostomy bag Protein [Presence] in Urine by Test strip Laboratory test result [facility] ([facility]) ostomy bag Ua Leuko Laboratory test result [facility] ([facility]) ostomy bag Ua Nitrite Laboratory test result [facility] [place] ostomy bag Blood [Presence] in Urine by Visual Laboratory test result [facility] ([facility]) ostomy bag Ketones [Presence] in Urine by Test strip Laboratory test result [facility] ([facility]) ostomy bag Color of Urine Laboratory test result [facility] ([facility]) ostomy bag Clarity of Urine Laboratory test result [facility] ([facility] [place]) ostomy bag Ua Specific [place] 1.010 1.003-1.030 [facility] NT ([facility] [place]) ostomy bag pH of Urine by Test strip 7.0 5.0-7.5 [facility] ([facility]) ostomy bag Bilirubin.total [Presence] in Urine by Test strip Laboratory test res ult [facility] ([facility]) ostomy bag Urobilinogen [Mass/volume] in Urine by Test strip 0.2 E.U./dL 0.0-1.0 [facility] ([facility]) ostomy bag ID Date Data Source [id number] 03/15/2021 03:57:13 PM EDT [facility] Name Value Range Interpretation Code Description Data Ema rce(s) Supporting Document(s) Progress Note [facility] MXNDVw9eSsPJAqYa67/ONNayOEQen7RdOInyZVf8YQxuFAKpP8TxIMG1iH6bQJI6WErVEkYhKvNuYMY5 lbm [file] AgICAgICAgICAgICAgICAgICAgICAgICAgICAgICAgICAgICAgICAgICAgICAgICAgICAgICAgDQogIC AgICAgICAgICAgICAgICAgICAgICAgICAgICAgICAg ICAgICAgICAgICAgICAgICAgICAgICAgICAgICAgICAgICAgICAgICAgICAgICAgICAgICAgICAgICAg ICAgICAgDQogICAgICAgICAgICAgICAgICAgICAgICAgICAgICAgICAgICAgICAgICAgICAgICAgICAg ICAgICAgICAgICAgICAgICAgICAgICAgICAgICAgIC AgICAgICAgICAgICAgICAgDQogICAgICAgICAgICAgICAgICAgICAgICAgICAgICAgICAgICAgICAgIC AgICAgICAgICAgICAgICAgICAgICAgICAgICAgICAgICAgICAgICAgICAgICAgICAgICAgICAgICAgDQ ogICAgICAgICAgICAgICAgICAgICAgICAgICAgICAg ICAgICAgICAgICAgICAgICAgICAgICAgICAgICAgICAgICAgICAgICAgICAgICAgICAgICAgICAgICAg ICAgICAgICAgDQogICAgICAgICAgICAgICAgICAgICAgICAgICAgICAgICAgICAgICAgICAgICAgICAg ICAgICAgICAgICAgICAgICAgICAgICAgICAgICAgIC AgICAgICAgICAgICAgICAgICAgDQogICAgICAgICAgICAgICAgICAgICAgICAgICAgICAgICAgICAgIC AgICAgICAgICAgICAgICAgICAgICAgICAgICAgICAgICAgICAgICAgICAgICAgICAgICAgICAgICAgIC AgDQogICAgICAgICAgICAgICAgICAgICAgICAgICAg ICAgICAgICAgICAgICAgICAgICAgICAgICAgICAgICAgICAgICAgICAgICAgICAgICAgICAgICAgICAg ICAgICAgICAgICAgDQogICAgICAgICAgICAgICAgICAgICAgICAgICAgICAgICAgICAgICAgICAgICAg ICAgICAgICAgICAgICAgICAgICAgICAgICAgICAgIC AgICAgICAgICAgICAgICAgICAgICAgDQogICAgICAgICAgICAgICAgICAgICAgICAgICAgICAgICAgIC AgICAgICAgICAgICAgICAgICAgICAgICAgICAgICAgICAgICAgICAgICAgICAgICAgICAgICAgICAgIC TbLXJoLFt5H2nvOISaZQZtSQ9kCZp3Nk8+DQoNCmVu UKR9tdClpQ1WRS8ej6SzZLpyACDdu7YmCTf0JU3WNMUzPFdmOX8WVItczf2JSLVeIAJccPKYg7awOmPj HEP9PEUwXjxyGM3RQXUhG3yjbcRyFJVyCBPSGW3QRtVvF9XtnM98MUUNRb6+QAftdqKeBblTEwQ2DRVf m3QyAWw4ME0KKTSvXugkf8ElNrTdOBATSSpmNN6CWQ H1CIRgGZMxVe7ZERIuI438kyIaWO9VOl8BRgNsGC4nkt2CPkWaHJHoFkxAAzq0ZGjhMC4NtQObSYoEts 2sodEvjuVCo3PdyqPzeWOWXVOrwQwjxh9iQ23tEFlan6svIPSCUHLnyBJaBS6xZY7sLNTnNZEmTnI6XH TBYK3HEOTcLKVotMThCNRySWLQLP2ZKYsaLZQ5UJNh gdGjpLTjDFwmCO1XOJGnasJmSJjyJZGDXZv+Uf4DGB4jd8NcHJcoKPAzTC4iof9QFHdNGePrR8R2vMNw I5P6IOxlHq6IQMUoRBBhWJzpVKKVGFvsGP7SGA6vnfG2ET6IpVYpOMZlRELvcUOvHUo3N79woSKkMLgs PF2GPQJ+Earl+Tf3HMGXyCHFvXIZxFtQgRTYAUoDjY8 VvD2CFt9SiW3TnEF87aEtovzExFKglBJ1NFN7rYRGdUPMXOF2HzIUvmJ7yoiBwTLFaSGBJYaLuB25njS DrQNOgGDU6BPDxYx7SIFEmX9MysdToeFqhegTiGIQuIAKGRL9YSAototBhxPWccXegII15cSknXO0RZb 8ZCuVdNH1msh5HbDQjGv7BLYAmTb3FATCzHKBjAZKz CUA4YNHpWaEoMFhdIOTmQLXxWLF2HHHvCBXtCL5YViMnSVPeVYnrFNgiEZNaRNWdte0WLKVmDWMsIIPa EbTkPELvPKEgGBykDYRpMLVwMSY3MWBfJXCkBN9WLaAgZLNeXHKyCSDmHLGcLAEvne1MEYDiFPQmGxPz HFAzSYEcHZNuFMraPBVyGAFaTpn2FHCrVDNkFK8SKu TgHUJwNEU1BoXaIMEnOVDkum7WEYImBGNqNkl7JiQjHSTsHGTqOPzcDQGgAKM0WnXgXIFsEAMuNO2KWp InFDDdCTK3PSDpBKDvFQEaou0QZCPiBSArPDBkYYZzUZKhJUPlDPpyBHKtUJY5OHY7CJMoUMGqCI6XFj IeRQTkQWU4VnIbNMGjRMUrjt9MVPXlCBEcBoa8AFAp XGXwXVBfUNdtGRPsVRC7WfJzUZZgROVpVT7KEbHhNYWgHDcoBgDcFBHwZNGqdn4YQUGpCAJpYrm6WzOg QUFaXKQhXLlwZFLyRCT2IfO6OGWfTPMiUQ4KRxExVGArFQgpAnYoBVHiPBRacz2IZTIdGZGgITJlCJJd FDFbYQFvLEg2waEnqHYiMYl2RY0JF5HbwjUlQxOSPd 1Vy287AELsLENkAf7ZC4rqUh8zVHSlBOBHCq3NGHc1YNmwLCQrSVRaQBOtY9JeKATlM1QzWvOaVAE0ID E2NDc+TWilBVJ5FSTaTICqBADnCIQ5AIT0EAD9CIC4EPT5VSB6Ka6oHFXLLj3+DQpzdGFydHhyZWYNCj J4Ros9JDdoFUQLFy5L ID Date Data Source [id number] 03/12/2021 12:24:23 PM EDT [facility] [place] [facility] Name Value Range Interpretation Code Description Data Ema rce(s) Supporting Document(s) POC GLUCOSE 76 mg/dL (70-99) [facility] [place] [facility] NOTIFIED NURSEPERFORMED BY CLINICAL S TAFF ID Date Data Source [id number] 03/12/2021 12:18:21 PM EDT [facility] [place] [facility] Name Value Range Interpretation Code Description Data Ema rce(s) Supporting Document(s) POC GLUCOSE 76 mg/dL (70-99) [facility] [place] [facility] PERFORMED BY CLINICAL STAFF ID Date Data Source [id number] 03/12/2021 08:29:05 AM EDT [facility] [place] [facility] Name Value Range Interpretation Code Description Data Ema rce(s) Supporting Document(s) SODIUM 142 mmol/L (136-145) [facility] [place] [facility] POTASSIUM 3.9 mmol/L (3.6-5.2) [facility] [place] [facility] CHLORIDE 112 mmol/L (100-108) H [facility] [place] [facility] CO2 24 mmol/L (22-31) [facility] [place] [facility] ANION GAP 6 mmol/L (7-16) L [facility] [place] [facility] UREA NITROGEN 20 mg/dL (7-24) [facility] [place] [facility] CREATININE 1.06 mg/dL (0.80-1.30) [facility] [place] [facility] BUN/CREAT RATIO 18.9 RATIO (10.0-20.0) [facility] GLUCOSE 74 mg/dL (70-99) [facility] [place] [facility] CALCIUM 9.2 mg/dL (8.4-10.2) [facility] [place] [facility] GFR >60 ml/min/1.73m2 (>59) [facility] [place] [facility] GFR ( AMER) >60 ml/min/1.73m2 (>59) [facility] [place] [facility] GFR INTERPRETATION [facility] --NORMAL KIDNEY FUNCTION OR MILD DISEASE - GFR >OR= 60CHRONIC KIDNEY DISEASE - GFR 15 - 59RENAL FAILURE - GFR <15 Est. GFR calculation based on the MDRDstudy equation, which assumes a steadystate for creatinine. Est. GFR should notbe used for medication dosing. ID Date Data Source [id number] 03/12/2021 07:46:51 AM EDT [facility] [place] [facility] Name Value Range Interpretation Code Description Data Ema rce(s) Supporting Document(s) WBC 3.4 10*3/uL (4.1-11.0) L [facility] [place] [facility] [place] RBC 2.76 10*6/uL (4.60-6.10) L [facility] [place] [facility] HGB 7.8 g/dL (13.5-18.0) L [facility] [place] [facility] HCT 23.4 % (41.0-53.0) L [facility] [place] [facility] MCV 84.9 fL (80.0-95.0) [facility] [place] [facility] MCH 28.1 pg (27.0-32.0) [facility] [place] [facility] MCHC 33.1 g/dL (32.0-36.0) [facility] [place] [facility] RDW 16.0 % (10.5-14.5) H [facility] [place] [facility] PLT 152 10*3/uL (150-450) [facility] [place] [facility] MPV 8.2 fL (7.1-10.7) [facility] [place] [facility] NEUT % 73.0 % (35.0-75.0) [facility] [place] [facility] LYMPH % 6.1 % (16.0-52.0) L [facility] [place] [facility] MONO % 13.2 % (0.0-8.0) H [facility] [place] [facility] EOS % 5.8 % (0.0-5.0) H [facility] [place] [facility] BASO % 1.9 % (0.0-4.0) [facility] [place] [facility] NEUT # 2.5 10*3/uL (1.8-7.7) [facility] [place] [facility] LYMPH # 0.2 10*3/uL (1.2-4.8) L [facility] [place] [facility] MONO # 0.4 10*3/uL (0.0-0.8) [facility] [place] [facility] Eosinophils [#/volume] in Blood by Automated count 0.2 10*3/uL (0.0-0 .5) [facility] [place] [facility] BASO # 0.1 10*3/uL (0.0-0.2) [facility] [place] [facility] ID Date Data Source [id number] 03/12/2021 05:39:53 AM EDT [facility] [place] [facility] Name Value Range Interpretation Code Description Data Ema rce(s) Supporting Document(s) POC GLUCOSE 78 mg/dL (70-99) [facility] [place] [facility] NOTIFIED NURSEPERFORMED BY CLINICAL S TAFF ID Date Data Source [id number] 03/11/2021 11:38:09 PM EDT [facility] [place] [facility] Name Value Range Interpretation Code Description Data Ema rce(s) Supporting Document(s) POC GLUCOSE 84 mg/dL (70-99) [facility] [place] [facility] NOTIFIED NURSEPERFORMED BY CLINICAL S TAFF ID Date Data Source [id number] 03/12/2021 10:21:00 AM EDT [facility] DATE OF EXAM: 03/11/[facility]21[facility] ABDOMEN WITH AND WITHOUT IV [...] greater than right. Professional interpretation performed at [facility] .End of diagnostic report for accession: [id number] Interpreted: Shahnaz Ramos MDTranscribed: 03/12/2021 10:01 AMSigned: 03/12/2021 10:21 AM Shahnaz Ramos MD [facility] # [id number] [facility] # [id number] Name Value Range Interpretation Code Description Data Ema rce(s) Supporting Document(s) ID Date Data Source [id number] 03/11/2021 06:13:30 PM EDT [facility] [place] [facility] Name Value Range Interpretation Code Description Data Ema rce(s) Supporting Document(s) POC GLUCOSE 96 mg/dL (70-99) [facility] [place] [facility] PERFORMED BY CLINICAL STAFF ID Date Data Source [id number] 03/12/2021 03:16:01 PM EDT [facility] [place] [facility] Name Value Range Interpretation Code [...] INCREASES WITHINCREASING LEVELS. ID Date Data Source [id number] 03/11/2021 03:39:07 PM EDT [facility] [place] [facility] Name Value Range Interpretation Code Description Data Ema rce(s) Supporting Document(s) APTT 29.6 s (22.0-34.3) [facility] [place] [facility] ID Date Data Source [id number] 03/11/2021 03:39:07 PM EDT [facility] [place] [facility] Name Value Range Interpretation Code Description Data Ema rce(s) Supporting Document(s) PT 12.2 s (9.2-11.9) H [facility] [place] [facility] INR 1.17 [facility] [place] [facility] SUGGESTED THERAPEUTIC RANGES USING INR F ORSTABILIZED ANTICOAGULATED PATIENTS:STANDARD DOSE THERAPY INR 2.0-3.0 DVT, PE, PREVENT DVT OR EMBOLISMHIGH DOSE THERAPY INR 2.5-3.5 PREVENT EMBOLISM FROM MECHANICAL HEART VALVE ID Date Data Source [id number] 03/11/2021 03:32:09 PM EDT [facility] [place] [facility] [place] Name Value Range Interpretation Code Description Data Ema rce(s) Supporting Document(s) WBC 4.1 10*3/uL (4.1-11.0) [facility] [place] [facility] [place] RBC 2.98 10*6/uL (4.60-6.10) L [facility] [place] [facility] HGB 8.4 g/dL (13.5-18.0) L [facility] [place] [facility] HCT 25.6 % (41.0-53.0) L [facility] [place] [facility] PATIENT TRANSFUSED MCV 85.7 fL (80.0-95.0) [facility] [place] [facility] MCH 28.2 pg (27.0-32.0) [facility] [place] [facility] MCHC 32.9 g/dL (32.0-36.0) [facility] [place] [facility] RDW 15.9 % (10.5-14.5) H [facility] [place] [facility] PLT 177 10*3/uL (150-450) [facility] [place] [facility] MPV 8.4 fL (7.1-10.7) [facility] [place] [facility] ID Date Data Source [id number] 03/11/2021 12:40:27 PM EDT [facility] [place] [facility] [place] Name Value Range Interpretation Code Description Data Ema rce(s) Supporting Document(s) POC GLUCOSE 99 mg/dL (70-99) [facility] [place] [facility] PERFORMED BY CLINICAL STAFF ID Date Data Source [id number] 03/11/2021 07:56:19 AM EDT [facility] [place] [facility] [place] Name Value Range Interpretation Code Description Data Ema rce(s) Supporting Document(s) SODIUM 140 mmol/L (136-145) [facility] [place] [facility] POTASSIUM 4.0 mmol/L (3.6-5.2) [facility] [place] [facility] CHLORIDE 110 mmol/L (100-108) H [facility] [place] [facility] CO2 25 mmol/L (22-31) [facility] [place] [facility] ANION GAP 5 mmol/L (7-16) L [facility] [place] [facility] UREA NITROGEN 17 mg/dL (7-24) [facility] [place] [facility] CREATININE 0.98 mg/dL (0.80-1.30) [facility] [place] [facility] BUN/CREAT RATIO 17.3 RATIO (10.0-20.0) [facility] GLUCOSE 80 mg/dL (70-99) [facility] CALCIUM 9.5 mg/dL (8.4-10.2) [facility] GFR >60 ml/min/1.73m2 (>59) [facility] GFR ( AMER) >60 ml/min/1.73m2 (>59) [facility] [place] GFR INTERPRETATION [facility] [place] --NORMAL KIDNEY FUNCTION OR MILD DISEASE - GFR >OR= 60CHRONIC KIDNEY DISEASE - GFR 15 - 59RENAL FAILURE - GFR <15 Est. GFR calculation based on the MDRDstudy equation, which assumes a steadystate for creatinine. Est. GFR should notbe used for medication dosing. ID Date Data Source [id number] 03/11/2021 07:38:12 AM EDT [facility] Name Value Range Interpretation Code Description Data Ema rce(s) Supporting Document(s) WBC 3.1 10*3/uL (4.1-11.0) L [facility] [place] [facility] [place] RBC 2.46 10*6/uL (4.60-6.10) L [facility] [place] HGB 6.9 g/dL (13.5-18.0) L [facility] [place] [facility] RESULT(S) CALLED TO AND READ BACK MEGAN [place] ON 5SIR AT 0736 ON 03/11/21 BY [id number] HCT 20.7 % (41.0-53.0) L [facility] [place] [facility] MCV 84.4 fL (80.0-95.0) [facility] [place] [facility] MCH 27.9 pg (27.0-32.0) [facility] [place] [facility] [place] MCHC 33.0 g/dL (32.0-36.0) [facility] [place] [facility] [place] RDW 16.0 % (10.5-14.5) H [facility] [place] [facility] [place] PLT 154 10*3/uL (150-450) [facility] [place] [facility] [place] MPV 8.6 fL (7.1-10.7) [facility] [place] [facility] [place] ID Date Data Source [id number] 03/11/2021 05:49:03 AM EDT [facility] [place] [facility] [place] Name Value Range Interpretation Code Description Data Ema rce(s) Supporting Document(s) POC GLUCOSE 89 mg/dL (70-99) [facility] [place] [facility] [place] NOTIFIED NURSEPERFORMED BY CLINICAL S TAF ID Date Data Source [id number] 03/11/2021 12:23:19 AM EDT [facility] [place] [facility] [place] Name Value Range Interpretation Code Description Data Ema rce(s) Supporting Document(s) POC GLUCOSE 105 mg/dL (70-99) H [facility] [place] [facility] [place] NOTIFIED NURSEPERFORMED BY CLINICAL S TAFF ID Date Data Source [id number] 03/10/2021 04:00:00 PM EDT [facility] Name Value Range Interpretation Code Description Data Ema rce(s) Supporting Document(s) SARS coronavirus 2 RNA [Presence] in Res piratory specimen by JUSTEN with probe detection NOT DETECTED [facility] This lab was reported by [facility] [place]. ID Date Data Source [id number] 03/11/2021 01:47:06 PM EDT [facility] [place] [facility] [place] Name Value Range Interpretation Code Description Data Ema rce(s) Supporting Document(s) SPECIMEN DESCRIPTION [facility] [place] COVID 19 RESULT (NDET) [facility] [place] [facility] [place] NEGATIVE COVID-19 RESULTS DONOT PRECLUDE COVID-2019 INFECTION ANDSHOULD NOT BE USED THE SOLE BASISFOR PATIENT MANAGEMENT DECISIONS. COMMENT [facility] [place] [facility] [place] FDA HAS MADE THIS TEST AVAILABL EUNDER AN EMERGENCY USE AUTHORIZATION(EUA) FOR THE DETECTION AND/OR DIAGNOSISOF THE VIRUS THAT CAUSES COVID-19.THIS ASSAY AMPLIFIES AND DETECTS [employer] USING WEB SITE ADMINISTRATOR- MEDIATEDAMPLIFICATIONTESTING PERFORMED ON [employer] FIRST TEST [facility] [place] [facility] [facility] SY[facility]TOMATIC [facility] [place] [facility] [place] DATE OF SYMPT ONSET [facility] HOSPITALIZED [facility] [place] [facility] [place] [facility] [place] [facility] [place] CONGREGATE CARE SET [facility] [place] [place] [facility] [place] ID Date Data Source [id number] 03/12/2021 12:38:20 AM EDT [facility] [place] [facility] [place] PATIENT ABO/Rh A POSITIVEANT IBODY SCREEN NEGATIVESPEC EXP DATE 03/13/2021TESTING SITE PERFORMED AT [address] [place], [place] [address]BLOOD BANK COMMENT BLOOD TYPE CONFIRMED.UNIT NUMBER [id number] COMPONENT TYPE LEUKOPOOR RED CELLSUNIT DIVISION 00STATUS OF UNIT TRANSFUSEDUNIT TAG COMMENT EMERGENCY RELEASETRANSFUSION STATUS OK TO TRANSFUSECROSSMATCH RESULT COMPATIBLEUNIT NUMBER [id number] COMPONENT TYPE LEUKOPOOR RED CELLSUNIT DIVISION 00STATUS OF UNIT TRANSFUSEDTRANSFUSION STATUS OK TO TRANSFUSECROSSMATCH RESULT COMPATIBLE Name Value Range Interpretation Code Description Data Ema rce(s) Supporting Document(s) ID Date Data Source [id number] 03/10/2021 04:51:00 PM EDT [facility] exclude hepatocellular carcinoma. Professional interpretation performed at [facility] .End of diagnostic report for accession: [id number] Interpreted: Shahnaz Ramos MDTranscribed: 03/10/2021 04:36 PMSigned: 03/10/2021 04:51 PM Shahnaz Ramos MD [facility] # [id number] BILL # [id number] Name Value Range Interpretation Code Description Data Ema rce(s) Supporting Document(s) ID Date Data Source [id number] 03/10/2021 02:00:09 PM EDT [facility] [place] [facility] [place] Name Value Range Interpretation Code Description Data Ema rce(s) Supporting Document(s) SODIUM 137 mmol/L (136-145) [facility] [place] [facility] POTASSIUM 4.2 mmol/L (3.6-5.2) [facility] [place] [facility] CHLORIDE 107 mmol/L (100-108) [facility] [place] [facility] CO2 23 mmol/L (22-31) [facility] [place] [facility] ANION GAP 7 mmol/L (7-16) [facility] [place] [facility] UREA NITROGEN 20 mg/dL (7-24) [facility] [place] [facility] CREATININE 1.15 mg/dL (0.80-1.30) [facility] [place] [facility] BUN/CREAT RATIO 17.4 RATIO (10.0-20.0) [facility] GLUCOSE 198 mg/dL (70-99) H [facility] [place] [facility] [place] CALCIUM 9.7 mg/dL (8.4-10.2) [facility] [place] [facility] GFR >60 ml/min/1.73m2 (>59) [facility] [place] [facility] GFR ( AMER) >60 ml/min/1.73m2 (>59) [facility] [place] [facility] GFR INTERPRETATION [facility] --NORMAL KIDNEY FUNCTION OR MILD DISEASE - GFR >OR= 60CHRONIC KIDNEY DISEASE - GFR 15 - 59RENAL FAILURE - GFR <15 Est. GFR calculation based on the MDRDstudy equation, which assumes a steadystate for creatinine. Est. GFR should notbe used for medication dosing. ID Date Data Source [id number] 03/10/2021 02:00:09 PM EDT [facility] [place] [facility] [place] Name Value Range Interpretation Code Description Data Ema rce(s) Supporting Document(s) TOTAL PROTEIN 6.4 g/dL (6.4-8.2) [facility] [place] [facility] ALBUMIN 2.1 g/dL (3.2-4.5) L [facility] [place] [facility] GLOBULIN 4.3 g/dL (2.7-4.3) [facility] [place] [facility] ALB/GLOB RATIO 0.5 RATIO [facility] [place] [facility] BILIRUBIN,TOTAL 0.6 mg/dL (0.0-1.0) [facility] [place] [facility] [place] PLEASE NOTE:Total bilirubin results may be falselyelevated in patients taking Eltrombopag. BILIRUBIN,CONJUGATED 0.3 mg/dL (0.0-0.3) [facility] BILIRUBIN,UNCONJ. 0.3 mg/dL (0.0-0.7) [facility] [place] [facility] ALKALINE PHOSPHATASE 150 U/L (45-117) H [facility] AST (SGOT) 67 U/L (11-39) H [facility] [place] [facility] ALT (SGPT) 59 U/L (12-78) [facility] [place] [facility] ID Date Data Source [id number] 03/10/2021 01:44:30 PM EDT [facility] [place] [facility] [place] Name Value Range Interpretation Code Description Data Ema rce(s) Supporting Document(s) PT 12.2 s (9.2-11.9) H [facility] [place] [facility] [place] INR 1.17 [facility] [place] [facility] [place] SUGGESTED THERAPEUTIC RANGES USING INR F ORSTABILIZED ANTICOAGULATED PATIENTS:STANDARD DOSE THERAPY INR 2.0-3.0 DVT, PE, PREVENT DVT OR EMBOLISMHIGH DOSE THERAPY INR 2.5-3.5 PREVENT EMBOLISM FROM MECHANICAL HEART VALVE ID Date Data Source [id number] 03/10/2021 01:33:49 PM EDT [facility] [place] [facility] [place] Name Value Range Interpretation Code Description Data Ema rce(s) Supporting Document(s) WBC 4.1 10*3/uL (4.1-11.0) [facility] [place] [facility] [place] RBC 2.70 10*6/uL (4.60-6.10) L [facility] [place] [facility] HGB 7.3 g/dL (13.5-18.0) L [facility] [place] [facility] [place] HCT 23.1 % (41.0-53.0) L [facility] [place] [facility] [place] MCV 85.4 fL (80.0-95.0) [facility] [place] [facility] MCH 27.1 pg (27.0-32.0) [facility] [place] [facility] [place] MCHC 31.8 g/dL (32.0-36.0) L [facility] [place] [facility] [place] RDW 16.6 % (10.5-14.5) H [facility] [place] [facility] [place] PLT 164 10*3/uL (150-450) [facility] [place] [facility] MPV 8.7 fL (7.1-10.7) [facility] [place] [facility] NEUT % 73.6 % (35.0-75.0) [facility] [place] [facility] [place] LYMPH % 7.3 % (16.0-52.0) L [facility] [place] [facility] [place] MONO % 13.3 % (0.0-8.0) H [facility] [place] [facility] [place] EOS % 4.7 % (0.0-5.0) [facility] [place] [facility] BASO % 1.1 % (0.0-4.0) [facility] [place] [facility] NEUT # 3.0 10*3/uL (1.8-7.7) [facility] [place] [facility] [place] LYMPH # 0.3 10*3/uL (1.2-4.8) L [facility] [place] [facility] [place] MONO # 0.5 10*3/uL (0.0-0.8) [facility] [place] [facility] [place] Eosinophils [#/volume] in Blood by Automated count 0.2 10*3/uL (0.0-0 .5) [facility] [place] [facility] BASO # 0.0 10*3/uL (0.0-0.2) [facility] [place] [facility] [place] ID Date Data Source [id number] 03/04/2021 08:31:14 PM EDT [facility] Name Value Range Interpretation Code Description Data Ema rce(s) Supporting Document(s) Progress Note [facility] HSDJBo3qSzQSBhZp71/TFPdhKCFms7IoSZneTZn4BLzfQOIgV2GlDMC6dO9xTKT9TBgHFsVaDqHuHTD7 lbm [file] ICAgICAgICAgICAgICAgICAgICAgICAgICAgICAgIC IgGWTrVWRyFBUjQSUnOWVnRQJhGWKhXQRzWIMnHQQfIPEoGTGsSBZiFYUtFWAkUWZwCMMoPE9BHHBsMX AgICAgICAgICAgICAgICAgICAgICAgICAgICAgICAgICAgICAgICAgICAgICAgICAgICAgICAgICAgIC AgICAgICAgICAgICAgICAgICAgICAgICAgICAgICAg PCLuNC0MVALjKHGnYSUfWBMnWFYxODLkDCDiGUAiBAKpRLCjVSSqPWUdHGHtYVJyKAExLOJbGVTfKGAb EHQmQAXbXGExVBJdGMDgIZAkQFOlJNRvGDSzEKYwHQAsHKYoSLNzUGXyKVBlWS3OMMQhWPVaYBSqGPDv ICAgICAgICAgICAgICAgICAgICAgICAgICAgICAgIC DzBWFdSFUnVCCbSJQrJDGjWHYfUJHgBQUgJNZqYSAkCJJkOUEhUUVnSEXxHOUcOKFhRQDfEVNbNS9VTU AgICAgICAgICAgICAgICAgICAgICAgICAgICAgICAgICAgICAgICAgICAgICAgICAgICAgICAgICAgIC AgICAgICAgICAgICAgICAgICAgICAgICAgICAgICAg MIQfNGHoFR4XXWWwYYEqXOUiEFWmFYXwJNYyFKYyBMYpJAQjDBRcVVBeUMQeTTRqHIQeWPPaVZUmBPHf KKJyWRKmRPIdGGDrRLPpOOAkQKUfFVHzBMCxPYNuQTOuFVLiYYLkEKBuZPPrISRzNX3HGJLnMJGxHSLx ICAgICAgICAgICAgICAgICAgICAgICAgICAgICAgIC AgICAgICAgICAgICAgICAgICAgICAgICAgICAgICAgICAgICAgICAgICAgICAgICAgICAgICAgICAgIA 0KICAgICAgICAgICAgICAgICAgICAgICAgICAgICAgICAgICAgICAgICAgICAgICAgICAgICAgICAgIC AgICAgICAgICAgICAgICAgICAgICAgICAgICAgICAg GXQiMKCaTWDmWO0QGAExWFOkSWKiFOAkTXWiDTAtJNKdQLWsZYWtEDSqKHKcFFItPIWdSTPtHYEjALIy GZXwLGYbMTUpXGDeLQHcNFHtXROhCXByZHCmTUTgITNySRGxCEXmTYYlJWIyELElXUNxWN6UPW43pEKy z7A3HWDjPM0jisx/Ng8KOSufxoQroXCzID0OLyDfPQ 0hmj9NVvDwTR5qfu4DPQtHDpAoI9V2gTXiZNTzJFOWYwKwE08tCEqkZy42HJkwSYMwElGoJQo1Xd8GJk QbE8htCMYkXsH3LJSoHrRnYSesHC9Rg3CvzTAyMDl+Hv6YXK7zq9XdALjpQZTnVK4lmx8UNHoPCoWcI7 DbakM5WEZlGGYcDm8THFXwWNQgdQGzULTtADIDUmQe B0EzhE15DWENGl6+OMwrypCtVwlXOaReGKFng3TlLSr9MZ5UXSMaHXu8fLAfJBPwN5Zem4MkNy01NWNk RbfiIvMtfWqhU0Z7pHovFG9vFMGjOJ9dMJ3hCHUpPBBuTeHyGXSNPE5RILFvIPDwvVJlISYwCAANDL7B GLxxEEO8JFOyiuHvwCOxMWxnFZ8SCEOftgPwSJlxYT BSDQo+Go5WMJ7wb3OkXAdjPDNtXI6qvb6LTNoKSzAlG6Y6pOUxK8J8VNfmEi6UMETcAPNwMBatDJHYBL afIT1BZQ0jbsC6JJ3ZnKKvEXUkYPEusNWcONb1B75okPAjISqvMY1ZUHW+Earl+Gv8OZXNlOZIqUFZrHa VhZOWQGqApN4XjK4RRo2JuO4AcXC02fNppurQtBDzt NC4RRG6eDQNkFBOWCF4LcRDxwM9uusKfQAVmHDBWCrXgJ74rvOXyXFFnKKV8KZJzOb1ZBWEsV5CoebVq kCacbwRcNNPiGPTATX0HFXyjkqZzrBMvdPiwHY28wEufPH4UEf8JUgXfDC8fqq6WlZKzQl3UDJBcJj8D RQIfJEXwQMWrJFU4IELlVnUhZVdcCJEsJZTeBEI6IM MqCHGfWV0SVsLvXGMyXNU1ZaFzLPGaDUEcir1EXCPxXSVwPNScNDGoBMAoTUZwUVrpKAVaMCVfTUC4IZ TlTEUzLB2JXoQgIEXmYIO7XHfxTPLnMXXjkm1SSOTcUFWbYBu6NPAaSESyVNPlUNhjQODkDNEhMEEiTI CkNZKyNH5WLhMuAIAuVRBaKCJtYUYyVGKnbu5SFXJu KHTyTdQ7BfZaUZRfJECfSUtxPMZxLIB9GpV9UEHtHQAyEU3YUaDbGUUaHYK5KJZnRQHdFXDpqy6KGKIk CJRiZXIhNjVoYLXoZVArYBbzCMLgVME4ELy1LUVbQSCyXH5NGxOzJYQkKJLyWTRbPEMlCOSobg0TATHs GDCnIbMeMrBbOJHcDISeOXzdMVGvWTH8SuRyTEDkPF JeEC9NMvMpKWHdNER9QXkoMCJwKHEtkh1JRFHnDMWkXuR5GMSrLQUwMTEiRUvnGQQsJPY1OlH7SQNlPJ AvEJ7ZKeVzJNRcQSf0BPfcRZVsFYOafs2ATIAvBZGbOYq3UoTiUJNrPLKnDTg1ciOeuKGyZXi7UF0CW2 DoljNnKyRYYy0Zw634ENFuXQXvPz3UF2bxLv3hSRGt GEUBWd2QZLk1TzFmRXJ3R2B9JmZrBETdIFJcIxKiKlFpYEUkTRXdDEQ+IDwyZWUwZDQzZThiNTIwNjA5 CPQxKvVxRAToDyQpBEA6ET7gDWPLVd1+GNmuoEHxtImbAMFWIpF6BHv4XMkxAYJNDv1P ID Date Data Source [id number] 03/04/2021 03:34:49 PM EDT [facility] Name Value Range Interpretation Code Description Data Ema rce(s) Supporting Document(s) Progress Note [facility] FVMXDb5dYtAFXrJt75/SCOzoWUXbb2EpLWzhPKh2NXqyMVOhT6JiXZB2dT0oOQP8BGyYAvJwDnTiFFV2 lbm [file] ICAgICAgICAgICAgICAgICAgICAgICAgICAgICAgIC AgICAgICAgICAgICAgICAgDQogICAgICAgICAgICAgICAgICAgICAgICAgICAgICAgICAgICAgICAgIC AgICAgICAgICAgICAgICAgICAgICAgICAgICAgICAgICAgICAgICAgICAgICAgICAgICAgICAgICAgDQ ogICAgICAgICAgICAgICAgICAgICAgICAgICAgICAg ICAgICAgICAgICAgICAgICAgICAgICAgICAgICAgICAgICAgICAgICAgICAgICAgICAgICAgICAgICAg ICAgICAgICAgDQogICAgICAgICAgICAgICAgICAgICAgICAgICAgICAgICAgICAgICAgICAgICAgICAg ICAgICAgICAgICAgICAgICAgICAgICAgICAgICAgIC AgICAgICAgICAgICAgICAgICAgDQogICAgICAgICAgICAgICAgICAgICAgICAgICAgICAgICAgICAgIC AgICAgICAgICAgICAgICAgICAgICAgICAgICAgICAgICAgICAgICAgICAgICAgICAgICAgICAgICAgIC AgDQogICAgICAgICAgICAgICAgICAgICAgICAgICAg ICAgICAgICAgICAgICAgICAgICAgICAgICAgICAgICAgICAgICAgICAgICAgICAgICAgICAgICAgICAg ICAgICAgICAgICAgDQogICAgICAgICAgICAgICAgICAgICAgICAgICAgICAgICAgICAgICAgICAgICAg ICAgICAgICAgICAgICAgICAgICAgICAgICAgICAgIC AgICAgICAgICAgICAgICAgICAgICAgDQogICAgICAgICAgICAgICAgICAgICAgICAgICAgICAgICAgIC AgICAgICAgICAgICAgICAgICAgICAgICAgICAgICAgICAgICAgICAgICAgICAgICAgICAgICAgICAgIC AgICAgDQogICAgICAgICAgICAgICAgICAgICAgICAg ICAgICAgICAgICAgICAgICAgICAgICAgICAgICAgICAgICAgICAgICAgICAgICAgICAgICAgICAgICAg ICAgICAgICAgICAgICAgDQogICAgICAgICAgICAgICAgICAgICAgICAgICAgICAgICAgICAgICAgICAg ICAgICAgICAgICAgICAgICAgICAgICAgICAgICAgIC GxEFFePAJfAAEjEBVrXMOmUCMqCXHgGHFoSEj2V6qpDAUgZHRdWE4jSNp0Th8+PQhJVmRrDMM6ndZejW 9LCF0nu6LuVRhyLYHyx0PiDSa3BG5HCNOhQQgbVW3XAAklui3VIIBeRCIanSGBy8ypBbKcNWT7HMXwDd mqAV4OCBMhY2sappKxEYFdZUTAJRejFAESADmxRCGP BJNpZAMePjLuMDycHD7Eo2EtcOK1YVr+Vn6NGJ5rd3MgCSglFRGmEA7cgr3ABSdXEyZqC4FgjoF1SCX4 AIFiKt0DDFDbDYRhwRVoKHLgHHUOYqFjQ7HoaX35ALSJXd7+WOxfkiHeTbePTuU4ISShr0NfZFm9YJ6R VNOwREs0rSToTFRyP4Gpk8DkWd82WPVlPxyeG9C7g1 YxqQNsHSooApD3NITcbGzmMGKxPSHrFDQeMJ6bXQTjXPIsNpPaQWKDZD0MKHWaVOKzxZJpXRDeOEBTDZ 8PFXqvVNU1NTIzllJnzDBqSLwdKQ3TBQDnxtCxFlzuQKWBVMu+Qb2NFG2gj1ZeDLwbZLUcRT6xrz3GGB sKWeKpN1R6nSQcK5Q2OVhyIy0ASHSwBHVnFeRiUYVN XGvyZX8RXF6pdjF9JO4DfBKtAITvTUHlvSGaIDo0U24dqDJgZVpoIA4KLVY+Earl+Pf6GCSOeYXIvREUb HgVrYLHLNuNoB4StM7KKw2PcS8HaZN24gMkbdaBgCUgqOB8XND0dVCSeWYTDQO4KlDExzP8masYvVPXa INHKRbOoA33yxICxLYOwJWV4HVDhDj6SRBXsW1Gzea LuhBsbcnQzNZOqAMZPPF6OGNbfutRctVMzpRqmAI63vWehLO4LNs0XEgBuDY0fiz7McHOlCd6YMNLiFE 9DZWPgWSEuMWGjDGT0YRFoJbMxPQbjIMMpPDYhDWT0FNDcVIAoUD1TAmJqKZAjNeohZLphKPTtTRIovi 6XYAVxHMRqRThdDEYgZWKfZUSbGWvjRASrFWZbIWD2 LCVlZFYmZO9IErOgIMGjMPT1TKukPVHlZJYenr7ZJXEuRMYgEXXzGMCkUXXgKHEsIOgbSPXvMBI2XNR6 ETFtPEYtNS0TMyRgEJNkTHF3TxPpANMgPTChaj0JRKYuUZXjOKd0NFLkHEXsYFZiIWohCKZwHBRoMME7 ILQqPNJuXQ8HBrSdDVXcUVE7UUGfFAZzVXKrrb6ZPS EoDYVrVpitHXKjCNOnKNUkPBxtDXYlOVApQqD2ABGeKZGfPM3FBfArMOZqURZ6StKjHFFnMZWeqj5GLT VkYYGqDTB3IWKyZXZmMLZiMOusCEEbNLE7BCM7DCLzQNZdNB2XDcTeXNDgOBPlKEghCYCcZTYdgz4XGW CaEEMlMKB4ToRxRCVrZUEfUEyuEMNkRYZ9BVW8VUMf JDNvCK0WOuQtFUIrFfeeHHGuHIKqQYDvms4GXAAwROJeGoA4QAZyJZJpFUSvXPfzWRBvADW9GyQkFQNq FJMyMN6TUqNdZLRkZmt4QRhsNDXqZEAtow8OSCQcJAZvGTeuFOHaSJVcJMWjXJlyXOXjARU7DBc4FHQn KWQzYU1RHmViYHGqXoslSlxpRJVkFOOzrq7BGJWoFE BcOWT9LSFgYOEwLTViYLecHMZiCUViWOBuQBJxHXUxKA0NVlIdQQLvCtJkHMLcUKEfLCQlkb5JURPvBU RvADG5OzTfWKUcPIUxXKh0inSkyUMvBEg7GX3CQ9UmpbYtHlZWSm6Mn140JFHyLHErKq2EJ3xqUn3pNA OrYYOHWz9RUOv4IURuADDtKqqdDHGvHDY2HYB5OuE7 VvQsAVqdOsr8ZmE+GRciDpFpCHUuP4Y5BuKmSgbyCTY0IlK4NiS1DDNhZxaoRT5sYEOPGq3+DQpzdGFy xFhaODKQQrGiJTQmKAsqCJUENa1D ID Date Data Source [id number] 02/28/2021 12:47:10 PM EDT [facility] Name Value Range Interpretation Code Description Data Ema rce(s) Supporting Document(s) Progress Note [facility] AMNVQf1rXxUEGdEk55/BQWszQQBfi2AaKPkcJWi5QRkgEHXsW2DpKLF8lF2pLVQ3QRuOOePiDbRfWWPr lbm [file] CiAgICAgICAgICAgICAgICAgICAgICAgICAgICAgICAgICAgICAgICAgICAgICAgICAgICAgICAgICAg ICAgICAgICAgICAgICAgICAgICAgICAgICAgICAgIC AgICAgICAgICANCiAgICAgICAgICAgICAgICAgICAgICAgICAgICAgICAgICAgICAgICAgICAgICAgIC AgICAgICAgICAgICAgICAgICAgICAgICAgICAgICAgICAgICAgICAgICAgICAgICAgICANCiAgICAgIC AgICAgICAgICAgICAgICAgICAgICAgICAgICAgICAg ICAgICAgICAgICAgICAgICAgICAgICAgICAgICAgICAgICAgICAgICAgICAgICAgICAgICAgICAgICAg ICANCiAgICAgICAgICAgICAgICAgICAgICAgICAgICAgICAgICAgICAgICAgICAgICAgICAgICAgICAg ICAgICAgICAgICAgICAgICAgICAgICAgICAgICAgIC AgICAgICAgICAgICANCiAgICAgICAgICAgICAgICAgICAgICAgICAgICAgICAgICAgICAgICAgICAgIC AgICAgICAgICAgICAgICAgICAgICAgICAgICAgICAgICAgICAgICAgICAgICAgICAgICAgICANCiAgIC AgICAgICAgICAgICAgICAgICAgICAgICAgICAgICAg ICAgICAgICAgICAgICAgICAgICAgICAgICAgICAgICAgICAgICAgICAgICAgICAgICAgICAgICAgICAg ICAgICANCiAgICAgICAgICAgICAgICAgICAgICAgICAgICAgICAgICAgICAgICAgICAgICAgICAgICAg ICAgICAgICAgICAgICAgICAgICAgICAgICAgICAgIC AgICAgICAgICAgICAgICANCiAgICAgICAgICAgICAgICAgICAgICAgICAgICAgICAgICAgICAgICAgIC AgICAgICAgICAgICAgICAgICAgICAgICAgICAgICAgICAgICAgICAgICAgICAgICAgICAgICAgICANCi AgICAgICAgICAgICAgICAgICAgICAgICAgICAgICAg ICAgICAgICAgICAgICAgICAgICAgICAgICAgICAgICAgICAgICAgICAgICAgICAgICAgICAgICAgICAg ICAgICAgICANCiAgICAgICAgICAgICAgICAgICAgICAgICAgICAgICAgICAgICAgICAgICAgICAgICAg ICAgICAgICAgICAgICAgICAgICAgICAgICAgICAgIC AgICAgICAgICAgICAgICAgICANCjw/aHBxZ8inmMTqvfE8M2mnIh0WOx8XTX0ns7BoTMKcOAtydzIsDg qFMzJiXJBvMhbJJjy1VPevPU5FaPFjB1SxW8OlLOgxSS1NYRDtOEMntVIePZMiAQXqMaO8DOMaWUnbED 9LaWRzIFsgNSAwIFIgNyAwIFIgOSAwIFIgMTEgMCBS CIGaJNIaNgGvNFptFT6Sy0JyaNC4RFx+Pi8WII3nv8HhCQytBwGkIO1jeg1WHLkBCdDaN0QqpaV6RKN4 WELaLm1RLLNxLFOcpBJvBPUjEIEXOmRmB9UauO26HYTMMi3+ZDhvwjBtXpmLXyB2VBPyz5GrIJc2WM8O HOXxKSx8sGTaTDWrO0Ywl2CsRo45YHQvHmzyLigrqY XKJIxhBLtysbedYZ7dVLYaEC9fEZ7oXPEjHUYqVcAtHVPQWV6VSUVwXVPalKQkBNCaNHLQYW6UAVdpYT B0ZIYkfwAocFAdZDviTK5DBUUdntQxGiojVYNZSWc+My0LXL9yr3NkMWmeCQQbVT2mov5YRLhKIuFrF9 K6oHMfF2T5TRjeWv9WDNHpDRJlYcQsKKQFULhnHV4E MI1rjeY4WE7LpUTdQRCbOKCngNJkMGn9P03mmYXhCKncRQ7ZZAU+Earl+Tn0KZLPvXYPhRTHyMvCyCOBC DxRzT6LbQ2GTm8YpF5IbAE50rZljeoDzPQvtUQ6ZZW5xOADhUFCCMQ6GnHQanC6jrnNpVcGoQHIIXdNl D54fsTRrQZBuCUU4BKEqYp0WXTHcP6BiupEbsNbneb YeLYYkRTFZRM8MIQgzatWosSHazZsnMU77gLphZS7NZg4DMyJhEH3txb9UbLNdHs2FHAPmAJ3RVIIpYQ ZoCAHlFWD6WRClZhJiGLmyMRAiAHOsTNS1TRPsMRChIN9OYoLuRDCxIrbmZUizYRHwKCXmen6YLEHsQJ QlIRthSnUdNRNlMRCuJBtoSYYcUUUdXRX4OOUyFOJo OE7XCeNoOZAeXNF7WkJvLACdZAFlam4CCWCuWDFfKHEiOwRdJKCkTLHzTMpoVCZrMKY4CWWaJJKtCNQi WR3QQfJhHVSgFPgaHbVxRECyJHXvss1JZYBwNVJcYNx8CvDfNYUbHDSvARipRGNlRPRjQWL7RJWiGNLs LM7DHuZoEQNkCFQ8NwhgFJOtXCSqwp6QCNHpBJAvAj e3UNOfTAXzVASyKUoxCIApZSCdDNVoFGGwIRXmBD8WXnKnASZkVSKiZymaFRMuHTYglk1TVLOePLNbAU j1NjSlIHCnJEJpQTytTBZpIXG2PJl1SAVqDGFgKE6HJmJoKZLkRPGfIopvJWQeHGDinn3XKDCoTOVtLo DrEhBgRJQwCRVbZYzjHLLxIRG3UGR0NKVnLNLvDI7R VaOhMVBoXEK0MVQnCDYmGDEjqk0HVVQjCRAzTYN9DeGxANYvYHNhUTkqFWHjPCE7WOgjSWNqUJHbJX7N LzExPNBeQev7LRIgQODwOEBbbq5INJMhZEGqDWjcMFXiNATmJXLyUIseCVNtUMW7FTb1VEEeBLLxEV9H GwTdUPVpDij1XybgYKMhEKSojm6DFWHxBYWhPKv0VB WrMGVwGVGhXVqwJJBbHPRsTMDqYVPzXAQtXU1OIhMuEIGpPtWbXdYfUNFvLDGbpu7IyPEurKxnfx4UFV bJNh4YkJbhMXCyZMfxTe3vxBHxTXAnMCSGSw6AzsYwFZQlMAVRQXqeZEAuALZaOSL9EzKfQYG8NWN4QC g6T4S0CLFaCDS2UDa0K7WyQiX5FNF4BAZoCLZjNIl4 XZEwCumqFfQlBSU8SqrlKPa0VpY+WI6gPRw+Ys9Ga9FwzqB9efNrYEpjIQFmWD0WYJACM0RSAi== ID Date Data Source [id number] 02/28/2021 01:25:31 PM [facility] Name Value Range Interpretation Code Description Data Ema rce(s) Supporting Document(s) Hepatitis A virus IgM Ab [Presence] in [facility] or [facility] No acute infection, susceptible to infec tion. Hepatitis B virus core IgM Ab [Presence] in Serum or Plasma by Immunoassay Non Reactive [facility] IgM antibodies to HBc were not detected, does not exclude the possibility of exposure to HBV. Hepatitis C virus Ab [Presence] in Serum or Plasma by Immuno assay Non Reactive [facility] No serological evidence of active infect ion. If recent exposure is suspected, test for HCV RNA. Hepatitis B virus surface Ag [Presence] in Serum or Plasma b y Immunoassay Non Reactive [facility] No active or previous infection. Suscept ible to infection. ID Date Data Source [id number] 02/28/2021 12:39:41 PM EDT [facility] Name Value Range Interpretation Code Description Data Ema rce(s) Supporting Document(s) Leukocytes [#/volume] in Blood by Automated count 4.0 10*3/uL 4-10 [facility] Erythrocytes [#/volume] in Blood by Automated count 2.97 10*6/uL 4.6- 6.1 L [facility] Hemoglobin [Mass/volume] in Blood 8.4 g/dL 13.5-18 L [facility] Hematocrit [Volume Fraction] of Blood by Automated count 25.4 % 4 1-53 L [facility] Erythrocyte mean corpuscular volume [Entitic volume] by Auto mated count 85.4 fL 80-96 [facility] Erythrocyte mean corpuscular hemoglobin [Entitic mass] by Automated count 28.3 pg 27-33 [facility] Erythrocyte mean corpuscular hemoglobin concentration [Mass/volume] by Autom[facility] 33.1 g/dL [facility].0[facility] distribution width [Ratio] by Automated count 16.7 % 11.5-14.5 H [facility] Platelets [#/volume] in Blood by Automated count 190 10*3/uL 150-400 [facility] Differential cell count method - Blood [facility] Neutrophils/100 leukocytes in Blood by Automated count 74 % [facility] Lymphocytes/100 leukocytes in Blood by Automated count 6 % [facility] Monocytes/100 leukocytes in Blood by Automated count 12 % [facility] Eosinophils/100 leukocytes in Blood by Automated count 6 % [facility] Basophils/100 leukocytes in Blood by Automated count 2 % [facility] Neutrophils [#/volume] in Blood by Automated count 3.00 10*3/uL 1.8-7 .0 [facility] Lymphocytes [#/volume] in Blood by Automated count 0.25 10*3/uL 1.2-4 .0 L [facility] Monocytes [#/volume] in Blood by Automated count 0.46 10*3/uL 0-0.8 [facility] Eosinophils [#/volume] in Blood by Automated count 0.26 10*3/uL 0-0.5 [facility] Basophils [#/volume] in Blood by Automated count 0.06 10*3/uL 0-0.2 [facility] Nucleated erythrocytes/100 leukocytes [Ratio] in Blood by Automated count 0 /100{WBCs} 0-0 [facility] ID Date Data Source [id number] 02/28/2021 12:59:20 PM [facility] Value Range Interpretation Code Description Data Ema rce(s) Supporting Document(s) Prothrombin time (PT) 14.6 s 11.6-14.0 H [facility] INR in Platelet poor plasma by Coagulation assay 1.18 [facility] Routine intensity oral anticoagulation I NR is typically 2.0-3.0. Target INR must be clinically individualized. ID Date Data Source [id number] 02/28/2021 12:59:20 PM [facility] Value Range Interpretation Code Description Data Ema rce(s) Supporting Document(s) aPTT in Platelet poor plasma by Coagulation assay 33.5 s 24.0-33. 0 [facility] ID Date Data Source [id number] 02/28/2021 01:24:10 PM [facility] Value Range Interpretation Code Description Data Ema rce(s) Supporting Document(s) [id number] [Mass/volume] in Serum or Plasma 45 ng/mL <9 H [facility] ID Date Data Source [id number] 02/28/2021 01:24:10 PM [facility] Value Range Interpretation Code Description Data Ema rce(s) Supporting Document(s) Albumin [Mass/volume] in Serum or Plasma by Bromocresol green (BCG) dye binding method 3.4 g/dL 3.5-5.2 [facility] Bilirubin.total [Mass/volume] in Serum or Plasma 0.7 mg/dL <1.2 [facility] Calcium [Mass/volume] in Serum or Plasma 10.6 mg/dL 8.8-10.2 [facility] Chloride [Moles/volume] in Serum or Plasma 97 mmol/L 98-107 L [facility] Creatinine [Mass/volume] in Serum or Plasma 0.94 mg/dL 0.70-1.20 [facility] Glucose [Mass/volume] in Serum or Plasma 138 mg/dL 70-140 [facility] Alkaline phosphatase [Enzymatic activity/volume] in Serum or Plasma 168 U/L 40-129 [facility] Potassium [Moles/volume] in Serum or Plasma 4.1 mmol/L 3.4-5.1 [facility] Protein [Mass/volume] in Serum or Plasma 7.1 g/dL 6.4-8.3 [facility] Sodium [Moles/volume] in Serum or Plasma 130 mmol/L 136-145 L [facility] Aspartate aminotransferase [Enzymatic activity/volume] in Serum or Plasma 60 U/L <40 [facility] Urea nitrogen [Mass/volume] in Serum or Plasma 17 mg/dL 8-23 [facility] Osmolality of Serum or Plasma by calculation 274 mosm/kg 275-300 L [facility] Creatinine/Urea nitrogen [Mass Ratio] in Serum or Plasma 18 [facility] Bicarbonate [Moles/volume] in Serum 22 mmol/L 22-29 [facility] Alanine aminotransferase [Enzymatic activity/volume] in Seru m or Plasma 36 U/L <41 [facility] Anion gap 3 in Serum or Plasma 11 mmol/L 8-15 [facility] Glomerular filtration rate/1.73 sq M pre dicted among non-blacks [Volume Rate/Area] in Serum or Plasma by Creatinine-based formula (MDRD) 77 mL/min/1.73m2 >60 [facility] Glomerular filtration rate/1.73 sq M pre dicted among blacks [Volume Rate/Area] in Serum or Plasma by Creatinine-based formula (MDRD) 90 mL/min/1.73m2 >60 [facility] ID Date Data Source [id number] 02/18/2021 08:24:57 AM EDT [facility] Name Value Range Interpretation Code Description Data Ema rce(s) Supporting Document(s) POC GLUCOSE 124 mg/dL (70-99) H [facility] PERFORMED BY CLINICAL STAFF ID Date Data Source [id number] 02/18/2021 07:04:16 AM EDT [facility] Name Value Range Interpretation Code Description Data Ema rce(s) Supporting Document(s) SODIUM 141 mmol/L (136-145) [facility] POTASSIUM 3.8 mmol/L (3.6-5.2) [facility] CHLORIDE 111 mmol/L (100-108) H [facility] CO2 25 mmol/L (22-31) [facility] ANION GAP 5 mmol/L (7-16) L [facility] UREA NITROGEN 13 mg/dL (7-24) [facility] CREATININE 0.75 mg/dL (0.80-1.30) L [facility] BUN/CREAT RATIO 17.3 RATIO (10.0-20.0) [facility] GLUCOSE 137 mg/dL (70-99) H [facility] CALCIUM 9.0 mg/dL (8.4-10.2) [facility] TOTAL PROTEIN 5.5 g/dL (6.4-8.2) L [facility] ALBUMIN 1.8 g/dL (3.2-4.5) L [facility] GLOBULIN 3.7 g/dL (2.7-4.3) [facility] ALB/GLOB RATIO 0.5 RATIO [facility] ALKALINE PHOSPHATASE 139 U/L (45-117) H [facility] BILIRUBIN,TOTAL 0.8 mg/dL (0.0-1.0) [facility] [facility] PLEASE NOTE:Total bilirubin results may be falselyelevated in patients taking Eltrombopag. AST (SGOT) 63 U/L (11-39) H [facility] ALT (SGPT) 39 U/L (12-78) [facility] GFR >60 ml/min/1.73m2 (>59) [facility] GFR ( AMER) >60 ml/min/1.73m2 (>59) [facility] GFR INTERPRETATION [facility] --NORMAL KIDNEY FUNCTION OR MILD DISEASE - GFR >OR= 60CHRONIC KIDNEY DISEASE - GFR 15 - 59RENAL FAILURE - GFR <15 Est. GFR calculation based on the MDRDstudy equation, which assumes a steadystate for creatinine. Est. GFR should notbe used for medication dosing. ID Date Data Source [id number] 02/18/2021 06:27:58 AM EDT [facility] Name Value Range Interpretation Code Description Data Ema rce(s) Supporting Document(s) WBC 3.0 10*3/uL (4.1-11.0) L [facility] [place] [facility] [place] RBC 2.62 10*6/uL (4.60-6.10) L [facility] HGB 7.4 g/dL (13.5-18.0) L [facility] HCT 22.4 % (41.0-53.0) L [facility] MCV 85.4 fL (80.0-95.0) [facility] MCH 28.3 pg (27.0-32.0) [facility] MCHC 33.1 g/dL (32.0-36.0) [facility] [facility] RDW 16.2 % (10.5-14.5) [facility] [place] [facility] PLT 125 10*3/uL (150-450) [facility] [place] [facility] MPV 8.6 fL (7.1-10.7) [facility] [place] [facility] ID Date Data Source [id number] 02/18/2021 02:59:19 AM EDT [facility] [place] [facility] Name Value Range Interpretation Code Description Data Ema rce(s) Supporting Document(s) POC GLUCOSE 126 mg/dL (70-99) [facility] [place] [facility] NOTIFIED NURSEPERFORMED BY CLINICAL S TAFF ID Date Data Source [id number] 02/17/2021 08:44:14 PM EDT [facility] [place] [facility] Name Value Range Interpretation Code Description Data Ema rce(s) Supporting Document(s) POC GLUCOSE 183 mg/dL (70-99) [facility] [place] [facility] NOTIFIED NURSEPERFORMED BY CLINICAL S TAFF ID Date Data Source [id number] 02/17/2021 08:20:47 PM EDT [facility] [place] [facility] Name Value Range Interpretation Code Description Data Ema rce(s) Supporting Document(s) WBC 3.8 10*3/uL (4.1-11.0) [facility] [place] [facility] [place] RBC 3.01 10*6/uL (4.60-6.10) L [facility] [place] [facility] HGB 8.3 g/dL (13.5-18.0) L [facility] [place] [facility] HCT 25.6 % (41.0-53.0) [facility] [place] [facility] MCV 85.3 fL (80.0-95.0) [facility] [place] [facility] MCH 27.5 pg (27.0-32.0) [facility] [place] [facility] MCHC 32.2 g/dL (32.0-36.0) [facility] [place] [facility] RDW 16.4 % (10.5-14.5) [facility] [place] [facility] PLT 157 10*3/uL (150-450) [facility] [place] [facility] MPV 7.9 fL (7.1-10.7) [facility] [place] [facility] ID Date Data Source [id number] 02/17/2021 05:44:15 PM EDT [facility] [place] [facility] Name Value Range Interpretation Code Description Data Ema rce(s) Supporting Document(s) POC GLUCOSE 141 mg/dL (70-99) [facility] [place] [facility] NOTIFIED NURSEPERFORMED BY CLINICAL S TAFF ID Date Data Source [id number] 02/17/2021 02:11:35 PM EDT [facility] [place] [facility] Name Value Range Interpretation Code Description Data Ema rce(s) Supporting Document(s) WBC 3.3 10*3/uL (4.1-11.0) [facility] [place] [facility] [place] RBC 2.86 10*6/uL (4.60-6.10) L [facility] [place] [facility] HGB 7.9 g/dL (13.5-18.0) L [facility] [place] [facility] HCT 24.5 % (41.0-53.0) L [facility] [place] [facility] MCV 85.6 fL (80.0-95.0) [facility] [place] [facility] MCH 27.7 pg (27.0-32.0) [facility] [place] [facility] MCHC 32.3 g/dL (32.0-36.0) [facility] [place] [facility] RDW 16.2 % (10.5-14.5) [facility] [place] [facility] PLT 136 10*3/uL (150-450) L [facility] [place] [facility] MPV 8.9 fL (7.1-10.7) [facility] [place] [facility] ID Date Data Source [id number] 02/17/2021 12:45:18 PM EDT [facility] [place] [facility] Name Value Range Interpretation Code Description Data Ema rce(s) Supporting Document(s) POC GLUCOSE 151 mg/dL (70-99) H [facility] [place] [facility] PERFORMED BY CLINICAL STAFF ID Date Data Source [id number] 02/17/2021 09:02:18 AM EDT [facility] [place] [facility] Name Value Range Interpretation Code Description Data Ema rce(s) Supporting Document(s) POC GLUCOSE 120 mg/dL (70-99) [facility] [place] [facility] PERFORMED BY CLINICAL STAFF ID Date Data Source [id number] 02/17/2021 08:36:01 AM EDT [facility] [place] [facility] Name Value Range Interpretation Code Description Data Ema rce(s) Supporting Document(s) SODIUM 143 mmol/L (136-145) [facility] [place] [facility] POTASSIUM 3.6 mmol/L (3.6-5.2) [facility] [place] [facility] CHLORIDE 113 mmol/L (100-108) [facility] [place] [facility] CO2 25 mmol/L (22-31) [facility] [place] [facility] ANION GAP 5 mmol/L (7-16) L [facility] [place] [facility] UREA NITROGEN 16 mg/dL (7-24) [facility] [place] [facility] CREATININE 0.80 mg/dL (0.80-1.30) [facility] [place] [facility] BUN/CREAT RATIO 20.0 RATIO (10.0-20.0) [facility] GLUCOSE 126 mg/dL (70-99) H [facility] [place] [facility] CALCIUM 8.6 mg/dL (8.4-10.2) [facility] [place] [facility] TOTAL PROTEIN 5.7 g/dL (6.4-8.2) L [facility] [place] [facility] ALBUMIN 1.9 g/dL (3.2-4.5) L [facility] [place] [facility] GLOBULIN 3.8 g/dL (2.7-4.3) [facility] [place] [facility] ALB/GLOB RATIO 0.5 RATIO [facility] [place] [facility] ALKALINE PHOSPHATASE 141 U/L (45-117) [facility] BILIRUBIN,TOTAL 1.2 mg/dL (0.0-1.0) H [facility] [place] [facility] PLEASE NOTE:Total bilirubin results may be falselyelevated in patients taking Eltrombopag. AST (SGOT) 56 U/L (11-39) [facility] [place] [facility] ALT (SGPT) 37 U/L (12-78) [facility] [place] [facility] GFR >60 ml/min/1.73m2 (>59) [facility] [place] [facility] GFR ( AMER) >60 ml/min/1.73m2 (>59) [facility] [place] [facility] GFR INTERPRETATION [facility] --NORMAL KIDNEY FUNCTION OR MILD DISEASE - GFR >OR= 60CHRONIC KIDNEY DISEASE - GFR 15 - 59RENAL FAILURE - GFR <15 Est. GFR calculation based on the MDRDstudy equation, which assumes a steadystate for creatinine. Est. GFR should notbe used for medication dosing. ID Date Data Source [id number] 02/17/2021 08:02:19 AM EDT [facility] [place] [facility] [place] Name Value Range Interpretation Code Description Data Ema rce(s) Supporting Document(s) WBC 3.0 10*3/uL (4.1-11.0) [facility] [place] [facility] [place] RBC 2.69 10*6/uL (4.60-6.10) L [facility] [place] [facility] HGB 7.4 g/dL (13.5-18.0) L [facility] [place] [facility] HCT 22.8 % (41.0-53.0) L [facility] [place] [facility] [address] [facility] [address] MCV 84.6 fL (80.0-95.0) [facility] [place] [facility] MCH 27.6 pg (27.0-32.0) [facility] [place] [facility] MCHC 32.6 g/dL (32.0-36.0) [facility] [place] [facility] RDW 16.5 % (10.5-14.5) [facility] [place] [facility] PLT 129 10*3/uL (150-450) L [facility] [place] [facility] MPV 8.7 fL (7.1-10.7) [facility] [place] [facility] ID Date Data Source [id number] 02/17/2021 04:40:08 AM EDT [facility] [place] [facility] Name Value Range Interpretation Code Description Data Ema rce(s) Supporting Document(s) POC GLUCOSE 125 mg/dL (70-99) H [facility] [place] [facility] PERFORMED BY CLINICAL STAFF ID Date Data Source [id number] 02/16/2021 10:37:35 PM EDT [facility] [place] [facility] Name Value Range Interpretation Code Description Data Ema rce(s) Supporting Document(s) POC GLUCOSE 169 mg/dL (70-99) H [facility] [place] [facility] NOTIFIED NURSEPERFORMED BY CLINICAL S TAFF ID Date Data Source [id number] 02/16/2021 08:37:46 PM EDT [facility] [place] [facility] Name Value Range Interpretation Code Description Data Ema rce(s) Supporting Document(s) WBC 4.2 10*3/uL (4.1-11.0) [facility] [place] [facility] [place] RBC 3.03 10*6/uL (4.60-6.10) L [facility] [place] [facility] HGB 8.4 g/dL (13.5-18.0) L [facility] [place] [facility] HCT 25.9 % (41.0-53.0) L [facility] [place] [facility] PERFORMED AT [address] [facility] [address] MCV 85.3 fL (80.0-95.0) [facility] [place] [facility] MCH 27.5 pg (27.0-32.0) [facility] [place] [facility] MCHC 32.3 g/dL (32.0-36.0) [facility] [place] [facility] RDW 16.0 % (10.5-14.5) H [facility] [place] [facility] PLT 147 10*3/uL (150-450) L [facility] [place] [facility] MPV 8.5 fL (7.1-10.7) [facility] [place] [facility] ID Date Data Source [id number] 02/16/2021 05:27:15 PM EDT [facility] [place] [facility] Name Value Range Interpretation Code Description Data Ema rce(s) Supporting Document(s) POC GLUCOSE 159 mg/dL (70-99) H [facility] [place] [facility] PERFORMED BY CLINICAL STAFF ID Date Data Source [id number] 02/16/2021 02:11:39 PM EDT [facility] [place] [facility] Name Value Range Interpretation Code Description Data Ema rce(s) Supporting Document(s) SODIUM 141 mmol/L (136-145) [facility] [place] [facility] POTASSIUM 3.7 mmol/L (3.6-5.2) [facility] [place] [facility] CHLORIDE 111 mmol/L (100-108) H [facility] [place] [facility] CO2 24 mmol/L (22-31) [facility] [place] [facility] ANION GAP 6 mmol/L (7-16) L [facility] [place] [facility] UREA NITROGEN 17 mg/dL (7-24) [facility] [place] [facility] CREATININE 0.84 mg/dL (0.80-1.30) [facility] [place] [facility] BUN/CREAT RATIO 20.2 RATIO (10.0-20.0) [facility] GLUCOSE 157 mg/dL (70-99) H [facility] [place] [facility] CALCIUM 9.5 mg/dL (8.4-10.2) [facility] [place] [facility] GFR >60 ml/min/1.73m2 (>59) [facility] [place] [facility] GFR ( AMER) >60 ml/min/1.73m2 (>59) [facility] [place] [facility] GFR INTERPRETATION [facility] --NORMAL KIDNEY FUNCTION OR MILD DISEASE - GFR >OR= 60CHRONIC KIDNEY DISEASE - GFR 15 - 59RENAL FAILURE - GFR <15 Est. GFR calculation based on the MDRDstudy equation, which assumes a steadystate for creatinine. Est. GFR should notbe used for medication dosing. ID Date Data Source [id number] 02/16/2021 01:45:41 PM EDT [facility] [place] [facility] Name Value Range Interpretation Code Description Data Ema rce(s) Supporting Document(s) WBC 3.5 10*3/uL (4.1-11.0) L [facility] [place] [facility] [place] RBC 2.55 10*6/uL (4.60-6.10) L [facility] [place] [facility] HGB 7.0 g/dL (13.5-18.0) L [facility] [place] [facility] HCT 21.6 % (41.0-53.0) L [facility] [place] [facility] [address] [facility] [place] [address] MCV 84.4 fL (80.0-95.0) [facility] [place] [facility] MCH 27.4 pg (27.0-32.0) [facility] [place] [facility] MCHC 32.5 g/dL (32.0-36.0) [facility] [place] [facility] RDW 16.4 % (10.5-14.5) H [facility] [place] [facility] PLT 147 10*3/uL (150-450) L [facility] [place] [facility] MPV 8.8 fL (7.1-10.7) [facility] [place] [facility] ID Date Data Source [id number] 02/16/2021 12:12:49 PM EDT [facility] [place] [facility] Name Value Range Interpretation Code Description Data Ema rce(s) Supporting Document(s) POC GLUCOSE 182 mg/dL (70-99) H [facility] [place] [facility] NOTIFIED NURSEPERFORMED BY CLINICAL S TAFF ID Date Data Source [id number] 02/16/2021 08:47:28 AM EDT [facility] [place] [facility] Name Value Range Interpretation Code Description Data Ema rce(s) Supporting Document(s) POC GLUCOSE 141 mg/dL (70-99) H [facility] [place] [facility] PERFORMED BY CLINICAL STAFF ID Date Data Source [id number] 02/16/2021 03:13:38 AM EDT [facility] [place] [facility] Name Value Range Interpretation Code Description Data Ema rce(s) Supporting Document(s) POC GLUCOSE 126 mg/dL (70-99) H [facility] [place] [facility] PERFORMED BY CLINICAL STAFF ID Date Data Source [id number] 02/16/2021 07:25:00 AM EDT [facility] DATE OF EXAM: 02/16/2021HEST, SINGLE PO RTABLE VIEW. INDICATION: Chest pain COMPARISON: 11/18/2020 TECHNIQUE: A portable radiograph of the chest was obtained. FINDINGS: No focal consolidation, pleural effusions or pulmonary edema is seen. The cardiomediastinal silhouette is mildly prominent. Visualized osseous structures are within normal limits. IMPRESSION: No acute abnormality is seen. Professional interpretation performed at [facility] .End of diagnostic report for accession: [id number] Interpreted: David Bueno MDTranscribed: 02/16/2021 07:25 AMSigned: 0 02/16/2021 07:25 AM David Bueno MD [facility] # [id number] BILL # [id number] Name Value Range Interpretation Code Description Data Ema rce(s) Supporting Document(s) ID Date Data Source [id number] 02/17/2021 12:48:06 AM EDT [facility] [place] [facility] [place] SPEC EXP DATE 02/19/2021ATI ENT ABO/Rh A POSITIVEANTIBODY SCREEN NEGATIVETESTING SITE PERFORMED AT [address] [place], [place] [address]BLOOD BANK COMMENT BLOOD TYPE CONFIRMED.UNIT NUMBER [id number] COMPONENT TYPE LEUKOPOOR RED CELLSUNIT DIVISION 00STATUS OF UNIT TRANSFUSEDTRANSFUSION STATUS OK TO TRANSFUSECROSSMATCH RESULT COMPATIBLE Name Value Range Interpretation Code Description Data Ema rce(s) Supporting Document(s) TYPE AND SCREEN [facility] [place] [facility] [place] PATIENT ABO/Rh A POSITIVE ID Date Data Source [id number] 02/16/2021 12:54:29 AM EDT [facility] [place] [facility] [place] Name Value Range Interpretation Code Description Data Ema rce(s) Supporting Document(s) PT 12.1 s (9.2-11.9) H [facility] [place] [facility] [place] PERFORMED AT [address] [place] [address] INR 1.16 [facility] [place] [facility] [place] SUGGESTED THERAPEUTIC RANGES USING INR F ORSTABILIZED ANTICOAGULATED PATIENTS:STANDARD DOSE THERAPY INR 2.0-3.0 DVT, PE, PREVENT DVT OR EMBOLISMHIGH DOSE THERAPY INR 2.5-3.5 PREVENT EMBOLISM FROM MECHANICAL HEART VALVE ID Date Data Source [id number] 02/16/2021 12:44:12 AM EDT [facility] [place] [facility] [place] Name Value Range Interpretation Code Description Data Ema rce(s) Supporting Document(s) TOTAL PROTEIN 6.7 g/dL (6.4-8.2) [facility] [place] [facility] ALBUMIN 2.2 g/dL (3.2-4.5) L [facility] [place] [facility] GLOBULIN 4.5 g/dL (2.7-4.3) H [facility] [place] [facility] ALB/GLOB RATIO 0.5 RATIO [facility] [place] [facility] BILIRUBIN,TOTAL 1.3 mg/dL (0.0-1.0) H [facility] [place] [facility] PLEASE NOTE:Total bilirubin results may be falselyelevated in patients taking Eltrombopag. BILIRUBIN,CONJUGATED 0.4 mg/dL (0.0-0.3) H [facility] BILIRUBIN,UNCONJ. 0.9 mg/dL (0.0-0.7) H [facility] [place] [facility] ALKALINE PHOSPHATASE 155 U/L (45-117) [facility] AST (SGOT) 63 U/L (11-39) H [facility] [place] [facility] ALT (SGPT) 44 U/L (12-78) [facility] [place] [facility] ID Date Data Source [id number] 02/16/2021 12:44:12 AM EDT [facility] [place] [facility] [place] Name Value Range Interpretation Code Description Data Ema rce(s) Supporting Document(s) TROPONIN I <0.05 ng/mL (<0.05) [facility] [place] [facility] [place] Less than 0.05: Myocardial injury unlike lyGreater than or equal to 0.05: Highly suggestive of myocardial injuryCorrelation with rise and/or fall ofserial troponins, clinical symptomsand ECG changes is necessary. ID Date Data Source [id number] 02/16/2021 12:44:12 AM EDT [facility] [place] [facility] [place] Name Value Range Interpretation Code Description Data Ema rce(s) Supporting Document(s) SODIUM 140 mmol/L (136-145) [facility] [place] [facility] [place] POTASSIUM 4.0 mmol/L (3.6-5.2) [facility] [place] [facility] CHLORIDE 112 mmol/L (100-108) H [facility] [place] [facility] CO2 22 mmol/L (22-31) [facility] [place] [facility] ANION GAP 6 mmol/L (7-16) L [facility] [place] [facility] UREA NITROGEN 18 mg/dL (7-24) [facility] [place] [facility] CREATININE 0.83 mg/dL (0.80-1.30) [facility] [place] [facility] BUN/CREAT RATIO 21.7 RATIO (10.0-20.0) H [facility] GLUCOSE 131 mg/dL (70-99) H [facility] [place] [facility] CALCIUM 9.7 mg/dL (8.4-10.2) [facility] [place] [facility] GFR >60 ml/min/1.73m2 (>59) [facility] [place] [facility] GFR ( AMER) >60 ml/min/1.73m2 (>59) [facility] [place] [facility] GFR INTERPRETATION [facility] --NORMAL KIDNEY FUNCTION OR MILD DISEASE - GFR >OR= 60CHRONIC KIDNEY DISEASE - GFR 15 - 59RENAL FAILURE - GFR <15 Est. GFR calculation based on the MDRDstudy equation, which assumes a steadystate for creatinine. Est. GFR should notbe used for medication dosing. ID Date Data Source [id number] 02/16/2021 12:28:08 AM EDT [facility] [place] [facility] Name Value Range Interpretation Code Description Data Ema rce(s) Supporting Document(s) WBC 4.4 10*3/uL (4.1-11.0) [facility] [place] [facility] [place] RBC 3.03 10*6/uL (4.60-6.10) L [facility] [place] [facility] HGB 8.2 g/dL (13.5-18.0) L [facility] [place] [facility] HCT 25.3 % (41.0-53.0) L [facility] [place] [facility] MCV 83.7 fL (80.0-95.0) [facility] [place] [facility] MCH 27.0 pg (27.0-32.0) [facility] [place] [facility] MCHC 32.2 g/dL (32.0-36.0) [facility] [place] [facility] RDW 16.2 % (10.5-14.5) H [facility] [place] [facility] PLT 164 10*3/uL (150-450) [facility] [place] [facility] MPV 9.2 fL (7.1-10.7) [facility] [place] [facility] NEUT % 72.8 % (35.0-75.0) [facility] [place] [facility] LYMPH % 8.6 % (16.0-52.0) L [facility] [place] [facility] MONO % 10.8 % (0.0-8.0) H [facility] [place] [facility] [place] EOS % 7.3 % (0.0-5.0) H [facility] [place] [facility] BASO % 0.5 % (0.0-4.0) [facility] [place] [facility] NEUT # 3.2 10*3/uL (1.8-7.7) [facility] [place] [facility] LYMPH # 0.4 10*3/uL (1.2-4.8) L [facility] [place] [facility] [place] MONO # 0.5 10*3/uL (0.0-0.8) [facility] [place] [facility] Eosinophils [#/volume] in Blood by Automated count 0.3 10*3/uL (0.0-0 .5) [facility] [place] [facility] BASO # 0.0 10*3/uL (0.0-0.2) [facility] [place] [facility] ID Date Data Source [id number] 02/17/2021 07:11:40 AM EDT [facility] [place] [facility] SPECIMEN DESCRIPTION URINE, COLLE CTION METHOD NOT SPECIFIEDCULTURE RESULTS NO GROWTHREPORT STATUS FINAL 02/17/2021 Name Value Range Interpretation Code Description Data Ema rce(s) Supporting Document(s) ID Date Data Source [id number] 02/16/2021 01:00:13 AM EDT [facility] [place] [facility] Name Value Range Interpretation Code Description Data Ema rce(s) Supporting Document(s) URINE WBC (0-5) [facility] [place] [facility] URINE RBC (0-2) [facility] [place] [facility] BACTERIA 1+ [HPF] [facility] [place] [facility] MUCUS 1+ [HPF] [facility] [place] [facility] ID Date Data Source [id number] 02/16/2021 12:42:47 AM EDT [facility] [place] [facility] Name Value Range Interpretation Code Description Data Ema rce(s) Supporting Document(s) COLOR [facility] [place] [facility] PERFORMED AT [address] [facility] [address] APPEARANCE [facility] [place] [facility] SPEC GRAV URINE 1.031 (1.003-1.030) H [facility] PH URINE 6.5 (5.0-7.5) [facility] [place] [facility] LEUK ESTERASE (NEG) A [facility] [place] [facility] NITRITE URINE (NEG) [facility] [place] [facility] PROTEIN URINE (NEG) [facility] [place] [facility] GLUCOSE URINE (NEG) [facility] [place] [facility] KETONE URINE (NEG) [facility] [place] [facility] [place] UROBILINOGEN 0.2 mg/dL (0-1.0) [facility] [place] [facility] [place] BILIRUBIN URINE (NEG) [facility] [place] [facility] BLOOD/HGB URINE 2+ (NEG) A [facility] [place] [facility] ID Date Data Source [id number] 02/15/2021 05:36:00 PM EDT [facility] Name Value Range Interpretation Code Description Data Ema rce(s) Supporting Document(s) SARS coronavirus 2 RNA [Presence] in Res piratory specimen by JUSTEN with probe detection NEGATIVE [facility] This lab was ordered by [facility] a nd reported by [facility]. ID Date Data Source [id number] 02/14/2021 10:27:00 AM EDT [facility] [place] Name Value Range Interpretation Code Description Data Ema rce(s) Supporting Document(s) Glucose [Presence] in Urine Laboratory test result [facility] ([facility]) Protein [Presence] in Urine by Test strip 100 mg/dL [facility] ([facility]) Ua Nitrite Laboratory test result [facility] ([facility]) Blood [Presence] in Urine by Visual Laboratory test result [facility] ([facility]) Ua Leuko Laboratory test result [facility] ([facility]) Color of Urine Laboratory test result [facility] ([facility]) Ketones [Presence] in Urine by Test strip Laboratory test result [facility] ([facility]) Clarity of Urine Laboratory test result [facility] ([facility]) Ua Specific [place] 1.025 1.003-1.030 [facility] NT ([facility]) pH of Urine by Test strip 7.0 5.0-7.5 [facility] ([facility]) Bilirubin.total [Presence] in Urine by Test strip Laboratory test res ult [facility] ([facility]) Urobilinogen [Mass/volume] in Urine by Test strip 1.0 E.U./dL 0.0-1.0 [facility] ([facility]) ID Date Data Source [id number] 02/13/2021 05:53:00 PM [facility] ReportName: Clyde LINARES OBERTMRN: [id number] Number: [id number] Date: 02/12/2021 00:00Received Date: 02/12/2021 14:16Physician(s): АННА BRAUN MD ADJAPONG, OPOKU, MDSpecimen(s) ReceivedA: Material received for consultation, [facility], [id number] HistoryLiver bx ([id number]). Right lobe liver mass. Confirm HCC. Consultation.DiagnosisLIVER, NEEDLE BIOPSY ([id number], 02/07/21): HEPATOCELLULAR CARCINOMA,MODERATELY DIFFERENTIATED. CIRRHOSIS. (See microscopic description).Electronically Signed By Donnie West M.D., Attending Pathologist02/13/2021 17:53:35 Gross DescriptionReceived from [facility] in [place], [place], is 1 H and Estained slide and 6 specially stained slides, 1 paraffin block, [id number], with the corresponding pathology report. Microscopic [...] developed and their performance characteristics determined by [facility] Pathology department. They have not been cleared or approved by the USFood and Drug Administration. The FDA has determined that such clearanceor approval is not necessary. Name Value Range Interpretation Code Description Data Ema rce(s) Supporting Document(s) ID Date Data Source [id number] 01/31/2021 06:21:13 AM EDT [facility] [place] [facility] Name Value Range Interpretation Code Description [facility] Supporting Document(s) SODIUM 139 mmol/L (136-145) [facility] [place] [facility] POTASSIUM 3.7 mmol/L (3.6-5.2) [facility] [place] [facility] CHLORIDE 106 mmol/L (100-108) [facility] [place] [facility] CO2 24 mmol/L (22-31) [facility] [place] [facility] ANION GAP 9 mmol/L (7-16) [facility] [place] [facility] UREA NITROGEN 17 mg/dL (7-24) [facility] [place] [facility] CREATININE 0.95 mg/dL (0.80-1.30) [facility] [place] [facility] BUN/CREAT RATIO 17.9 RATIO (10.0-20.0) [facility] GLUCOSE 119 mg/dL (70-99) H [facility] [place] [facility] CALCIUM 9.4 mg/dL (8.4-10.2) [facility] [place] [facility] GFR >60 ml/min/1.73m2 (>59) [facility] [place] [facility] GFR ( AMER) >60 ml/min/1.73m2 (>59) [facility] [place] [facility] GFR INTERPRETATION [facility] --NORMAL KIDNEY FUNCTION OR MILD DISEASE - GFR >OR= 60CHRONIC KIDNEY DISEASE - GFR 15 - 59RENAL FAILURE - GFR <15 Est. GFR calculation based on the MDRDstudy equation, which assumes a steadystate for creatinine. Est. GFR should notbe used for medication dosing. ID Date Data Source [id number] 01/31/2021 05:49:23 AM EDT [facility] [place] [facility] [place] Name Value Range Interpretation Code Description Data Ema rce(s) Supporting Document(s) WBC 3.6 10*3/uL (4.1-11.0) L [facility] [place] [facility] [place] RBC 2.70 10*6/uL (4.60-6.10) L [facility] [place] [facility] HGB 7.3 g/dL (13.5-18.0) L [facility] [place] [facility] HCT 22.2 % (41.0-53.0) L [facility] [place] [facility] MCV 82.2 fL (80.0-95.0) [facility] [place] [facility] MCH 27.2 pg (27.0-32.0) [facility] [place] [facility] MCHC 33.1 g/dL (32.0-36.0) [facility] [place] [facility] RDW 16.2 % (10.5-14.5) H [facility] [place] [facility] PLT 178 10*3/uL (150-450) [facility] [place] [facility] MPV 8.2 fL (7.1-10.7) [facility] [place] [facility] [place] ID Date Data Source [id number] 01/31/2021 02:58:00 AM EDT [facility] Name Value Range Interpretation Code Description Data Ema rce(s) Supporting Document(s) SARS coronavirus 2 RNA [Presence] in Res piratory specimen by JUSTEN with probe detection NOT DETECTED [facility] This lab was reported by [facility] [place] [facility]. ID Date Data Source [id number] 01/31/2021 03:56:47 AM EDT [facility] [place] [facility] [place] Name Value Range Interpretation Code Description Data Ema rce(s) Supporting Document(s) SPECIMEN DESCRIPTION [facility] INFLUENZA A (NEG) [facility] [place] [facility] INFLUENZA B (NEG) [facility] [place] [facility] RSV (NEG) [facility] [place] [facility] COMMENT [facility] [place] [facility] THE [place] FDA HAS MADE THIS TEST AVAILABL EUNDER AN EMERGENCY USE AUTHORIZATION(EUA) FOR THE DETECTION AND/OR DIAGNOSISOF THE VIRUS THAT CAUSES COVID-19.[facility]FORMED [facility] [address] [facility] [id number] COVID19 RESULT (NDET) [facility] [place] [facility] [place] THIS ASSAY AMPLIFIES AND DETECTSTHE TARG ET RNA USING REAL-TIME PCR.TESTING PERFORMED ON RV ID GENEXPERTNEGATIVE 2019_NCOV RT-PCR RESULTS DONOT PRECLUDE 2019_NCOV INFECTION ANDSHOULD NOT BE USED THE SOLE BASISFOR PATIENT MANAGEMENT DECISIONS. FIRST TEST [facility] [place] [facility] SYMPTOMATIC [facility] [place] [facility] [place] DATE OF SYMPT ONSET [facility] [place] [facility] [place] [facility] [place] [facility] [place] CONGREGATE CARE SET [facility] [place] [facility] [place] ID Date Data Source [id number] 01/31/2021 08:36:00 AM EDT [facility] DATE OF EXAM: 01/31/2021XAM: CT [...] above. A contemporaneous report was provided by [facility] at the time of this examination, reporting similar findings. Professional interpretation performed at [facility] .End of diagnostic report for accession: [id number] Interpreted: Shahnaz Ramos MDTranscribed: 01/31/2021 08:23 AMSigned: 01/31/2021 08:36 AM Shahnaz Ramos MD [facility] # [id number] BILL # [id number] Name Value Range Interpretation Code Description Data Ema rce(s) Supporting Document(s) ID Date Data Source [id number] 02/01/2021 09:19:09 AM EDT [facility] [place] [facility] SPECIMEN DESCRIPTION URINE, COLLE CTION METHOD NOT SPECIFIEDCULTURE RESULTS MIXED UROGENITAL DEIRDRE; PLEASE SUBMIT A NEW SPEC IMEN IF CLINICALLY INDICATED.REPORT STATUS FINAL 02/01/2021 Name Value Range Interpretation Code Description Data Ema rce(s) Supporting Document(s) ID Date Data Source [id number] 01/31/2021 12:50:39 AM EDT [facility] [place] [facility] Name Value Range Interpretation Code Description Data Ema rce(s) Supporting Document(s) URINE WBC (0-5) [facility] [place] [facility] URINE RBC (0-2) [facility] [place] [facility] ID Date Data Source [id number] 01/31/2021 12:39:03 AM EDT [facility] [place] [facility] Name Value Range Interpretation Code Description Data Ema rce(s) Supporting Document(s) COLOR [facility] [place] [facility] TESTING PERFORMED ON CENTRIFUGED SAMPLE APPEARANCE [facility] [place] [facility] SPEC GRAV URINE 1.012 (1.003-1.030) [facility] PH URINE 6.5 (5.0-7.5) [facility] [place] [facility] LEUK ESTERASE 2+ (NEG) A [facility] [place] [facility] NITRITE URINE (NEG) [facility] [place] [facility] PROTEIN URINE 2+ (NEG) [facility] GLUCOSE URINE (NEG) [facility] KETONE URINE (NEG) [facility] UROBILINOGEN 0.2 mg/dL (0-1.0) [facility] BILIRUBIN URINE (NEG) [facility] BLOOD/HGB URINE 3+ (NEG) [facility] ID Date Data Source [id number] 01/31/2021 12:42:08 AM EDT [facility] Name Value Range Interpretation Code Description Data Ema rce(s) Supporting Document(s) SODIUM 137 mmol/L (136-145) [facility] POTASSIUM 3.7 mmol/L (3.6-5.2) [facility] CHLORIDE 105 mmol/L (100-108) [facility] CO2 23 mmol/L (22-31) [facility] ANION GAP 9 mmol/L (7-16) [facility] UREA NITROGEN 17 mg/dL (7-24) [facility] CREATININE 1.02 mg/dL (0.80-1.30) [facility] BUN/CREAT RATIO 16.7 RATIO (10.0-20.0) [facility] GLUCOSE 147 mg/dL (70-99) H [facility] CALCIUM 9.6 mg/dL (8.4-10.2) [facility] GFR >60 ml/min/1.73m2 (>59) [facility] GFR ( AMER) >60 ml/min/1.73m2 (>59) [facility] GFR INTERPRETATION [facility] --NORMAL KIDNEY FUNCTION OR MILD DISEASE - GFR >OR= 60CHRONIC KIDNEY DISEASE - GFR 15 - 59RENAL FAILURE - GFR <15 Est. GFR calculation based on the MDRDstudy equation, which assumes a steadystate for creatinine. Est. GFR should notbe used for medication dosing. ID Date Data Source [id number] 01/31/2021 12:29:39 AM EDT [facility] Name Value Range Interpretation Code Description Data Ema rce(s) Supporting Document(s) WBC 4.0 10*3/uL (4.1-11.0) [facility] RBC 2.83 10*6/uL (4.60-6.10) [facility] HGB 7.6 g/dL (13.5-18.0) [facility] HCT 23.2 % (41.0-53.0) [facility] MCV 82.1 fL (80.0-95.0) [facility] MCH 26.9 pg (27.0-32.0) [facility] MCHC 32.8 g/dL (32.0-36.0) [facility] RDW 16.3 % (10.5-14.5) [facility] PLT 187 10*3/uL (150-450) [facility] MPV 8.3 fL (7.1-10.7) [facility] NEUT % 78.0 % (35.0-75.0) [facility] LYMPH % 6.7 % (16.0-52.0) [facility] MONO % 9.3 % (0.0-8.0) [facility] EOS % 4.4 % (0.0-5.0) [facility] BASO % 1.6 % (0.0-4.0) [facility] NEUT # 3.2 10*3/uL (1.8-7.7) [facility] LYMPH # 0.3 10*3/uL (1.2-4.8) [facility] MONO # 0.4 10*3/uL (0.0-0.8) [facility] Eosinophils [#/volume] in Blood by Automated count 0.2 10*3/uL (0.0-0 .5) [facility] BASO # 0.1 10*3/uL (0.0-0.2) [facility] ID Date Data Source [id number] [id number] 01/11/2021 12:00:00 AM EDT [email or web address] (Formerly [facility]) Name Value Range Interpretation Code Description Data Ema rce(s) Supporting Document(s) PLZ LIVER [facility] ([facility]) ID Date Data Source [id number] 12/05/2020 12:19:00 PM EDT [facility] ([facility] Name Value Range Interpretation Code Description Data Ema rce(s) Supporting Document(s) Specimen Adequacy Laboratory test result [facility] ([facility]) Ileal conduit/neobladder. Clinical History Laboratory test result [facility] ([facility]) BodySite Laboratory test result [facility] ([facility]) Voided - Clean Catch Gross Description Laboratory test result [facility] ([facility]) Received in a specimen container, labele d with the patients name and , is Cloudy Yellow fluid consistent with urine, measuring approximately 15 ml. Microscopic Description Laboratory test result [facility] ([facility]) Moderate numbers of neutrophils present. CPTCode 47827 [facility] ([facility]) Final Diagnosis Laboratory test result [facility] ([facility]) NEGATIVE FOR HIGH-GRADE UROTHELIAL CARCI NOMA. PDF Report Laboratory test result [facility] ([facility]) ID Date Data Source [id number] 12/05/2020 12:19:00 PM EDT [facility] ([facility]) Name Value Range Interpretation Code Description Data Ema rce(s) Supporting Document(s) Cytology report of Urine Cyto stain Laboratory test result [facility] ([facility]) ID Date Data Source [id number] 12/05/2020 11:34:00 AM EDT [facility] ([facility] Name Value Range Interpretation Code Description Data Ema rce(s) Supporting Document(s) Glucose [Presence] in Urine Laboratory test result [facility] ([facility]) Protein [Presence] in Urine by Test strip 30 mg/dL [facility] ([facility]) Ua Nitrite Laboratory test result [facility] ([facility]) Blood [Presence] in Urine by Visual Laboratory test result [facility] ([facility]) Ua Leuko Laboratory test result [facility] ([facility]) Color of Urine Laboratory test result [facility] ([facility]) Ketones [Presence] in Urine by Test strip Laboratory test result [facility] ([facility]) Clarity of Urine Laboratory test result [facility] ([facility]) Ua Specific [place] 1.010 1.003-1.030 [facility] NT ([facility]) Bilirubin.total [Presence] in Urine by Test strip Laboratory test res ult [facility] ([facility]) pH of Urine by Test strip 6.5 5.0-7.5 [facility] ([facility]) Urobilinogen [Mass/volume] in Urine by Test strip 0.2 E.U./dL 0.0-1.0 [facility] ([facility]) ID Date Data Source [id number] 11/22/2020 12:44:37 PM EDT [facility] Name Value Range Interpretation Code Description Data Ema rce(s) Supporting Document(s) POC GLUCOSE 184 mg/dL (70-99) [facility] NOTIFIED NURSEPERFORMED BY CLINICAL S TAFF ID Date Data Source [id number] 11/22/2020 07:40:49 AM EDT [facility] Name Value Range Interpretation Code Description Data Ema rce(s) Supporting Document(s) POC GLUCOSE 124 mg/dL (70-99) [facility] NOTIFIED NURSEPERFORMED BY CLINICAL S TAFF ID Date Data Source [id number] 11/22/2020 07:35:48 AM EDT [facility] Name Value Range Interpretation Code Description Data Ema rce(s) Supporting Document(s) SODIUM 139 mmol/L (136-145) [facility] POTASSIUM 4.2 mmol/L (3.6-5.2) [facility] CHLORIDE 113 mmol/L (100-108) [facility] CO2 18 mmol/L (22-31) L [facility] ANION GAP 8 mmol/L (7-16) [facility] UREA NITROGEN 27 mg/dL (7-24) [facility] CREATININE 0.95 mg/dL (0.80-1.30) [facility] BUN/CREAT RATIO 28.4 RATIO (10.0-20.0) [facility] GLUCOSE 115 mg/dL (70-99) [facility] CALCIUM 8.2 mg/dL (8.4-10.2) [facility] GFR >60 ml/min/1.73m2 (>59) [facility] GFR ( AMER) >60 ml/min/1.73m2 (>59) [facility] GFR INTERPRETATION [facility] --NORMAL KIDNEY FUNCTION OR MILD DISEASE - GFR >OR= 60CHRONIC KIDNEY DISEASE - GFR 15 - 59RENAL FAILURE - GFR <15 Est. GFR calculation based on the MDRDstudy equation, which assumes a steadystate for creatinine. Est. GFR should notbe used for medication dosing. ID Date Data Source [id number] 11/22/2020 06:58:27 AM EDT [facility] Name Value Range Interpretation Code Description Data Ema rce(s) Supporting Document(s) WBC 5.1 10*3/uL (4.1-11.0) [facility] RBC 2.90 10*6/uL (4.60-6.10) L [facility] HGB 8.1 g/dL (13.5-18.0) [facility] HCT 24.4 % (41.0-53.0) [facility] MCV 84.1 fL (80.0-95.0) [facility] MCH 27.9 pg (27.0-32.0) [facility] MCHC 33.2 g/dL (32.0-36.0) [facility] RDW 16.5 % (10.5-14.5) [facility] PLT 125 10*3/uL (150-450) [facility] MPV 9.3 fL (7.1-10.7) [facility] NEUT % 63.0 % (35.0-75.0) [facility] LYMPH % 11.0 % (16.0-52.0) [facility] MONO % 15.8 % (0.0-8.0) [facility] EOS % 8.3 % (0.0-5.0) [facility] BASO % 1.9 % (0.0-4.0) [facility] NEUT # 3.2 10*3/uL (1.8-7.7) [facility] LYMPH # 0.6 10*3/uL (1.2-4.8) [facility] MONO # 0.8 10*3/uL (0.0-0.8) [facility] Eosinophils [#/volume] in Blood by Automated count 0.4 10*3/uL (0.0-0 .5) [facility] BASO # 0.1 10*3/uL (0.0-0.2) [facility] ID Date Data Source [id number] 11/21/2020 09:42:27 PM EDT [facility] Name Value Range Interpretation Code Description Data Ema rce(s) Supporting Document(s) POC GLUCOSE 183 mg/dL (70-99) [facility] NOTIFIED NURSEPERFORMED BY CLINICAL S TAFF ID Date Data Source [id number] 11/21/2020 06:01:55 PM EDT [facility] Name Value Range Interpretation Code Description Data Ema rce(s) Supporting Document(s) POC GLUCOSE 156 mg/dL (70-99) [facility] NOTIFIED NURSEPERFORMED BY CLINICAL S TAFF ID Date Data Source [id number] 11/21/2020 01:53:27 PM EDT [facility] Name Value Range Interpretation Code Description Data Ema rce(s) Supporting Document(s) POC GLUCOSE 137 mg/dL (70-99) [facility] NOTIFIED NURSEPERFORMED BY CLINICAL S TAFF ID Date Data Source [id number] 11/21/2020 08:51:25 AM EDT [facility] Name Value Range Interpretation Code Description Data Ema rce(s) Supporting Document(s) POC GLUCOSE 106 mg/dL (70-99) [facility] PERFORMED BY CLINICAL STAFF ID Date Data Source [id number] 11/21/2020 08:20:09 AM EDT [facility] Name Value Range Interpretation Code Description Data Ema rce(s) Supporting Document(s) POC GLUCOSE 107 mg/dL (70-99) [facility] NOTIFIED NURSEPERFORMED BY CLINICAL S TAFF ID Date Data Source [id number] 11/21/2020 08:40:54 AM EDT [facility] Name Value Range Interpretation Code Description Data Ema rce(s) Supporting Document(s) SODIUM 138 mmol/L (136-145) [facility] POTASSIUM 4.1 mmol/L (3.6-5.2) [facility] CHLORIDE 111 mmol/L (100-108) [facility] CO2 18 mmol/L (22-31) L [facility] ANION GAP 9 mmol/L (7-16) [facility] UREA NITROGEN 39 mg/dL (7-24) [facility] CREATININE 1.87 mg/dL (0.80-1.30) H [facility] BUN/CREAT RATIO 20.9 RATIO (10.0-20.0) [facility] GLUCOSE 104 mg/dL (70-99) H [facility] CALCIUM 8.4 mg/dL (8.4-10.2) [facility] GFR 35 ml/min/1.73m2 (>59) L [facility] GFR ( AMER) 42 ml/min/1.73m2 (>59) L [facility] GFR INTERPRETATION [facility] --NORMAL KIDNEY FUNCTION OR MILD DISEASE - GFR >OR= 60CHRONIC KIDNEY DISEASE - GFR 15 - 59RENAL FAILURE - GFR <15 Est. GFR calculation based on the MDRDstudy equation, which assumes a steadystate for creatinine. Est. GFR should notbe used for medication dosing. ID Date Data Source [id number] 11/21/2020 08:19:58 AM EDT [facility] Name Value Range Interpretation Code Description Data Ema rce(s) Supporting Document(s) WBC 5.9 10*3/uL (4.1-11.0) [facility] RBC 2.94 10*6/uL (4.60-6.10) L [facility] HGB 8.3 g/dL (13.5-18.0) L [facility] HCT 24.9 % (41.0-53.0) [facility] MCV 84.6 fL (80.0-95.0) [facility] MCH 28.1 pg (27.0-32.0) [facility] MCHC 33.2 g/dL (32.0-36.0) [facility] RDW 16.5 % (10.5-14.5) [facility] PLT 123 10*3/uL (150-450) L [facility] MPV 9.1 fL (7.1-10.7) [facility] NEUT % 70.3 % (35.0-75.0) [facility] LYMPH % 6.6 % (16.0-52.0) [facility] MONO % 14.9 % (0.0-8.0) [facility] EOS % 7.2 % (0.0-5.0) [facility] BASO % 1.0 % (0.0-4.0) [facility] NEUT # 4.2 10*3/uL (1.8-7.7) [facility] LYMPH # 0.4 10*3/uL (1.2-4.8) L [facility] MONO # 0.9 10*3/uL (0.0-0.8) [facility] Eosinophils [#/volume] in Blood by Automated count 0.4 10*3/uL (0.0-0 .5) [facility] BASO # 0.1 10*3/uL (0.0-0.2) [facility] ID Date Data Source [id number] 2020 09:31:54 PM EDT [facility] Name Value Range Interpretation Code Description Data Ema rce(s) Supporting Document(s) POC GLUCOSE 146 mg/dL (70-99) H [facility] NOTIFIED NURSEPERFORMED BY CLINICAL S TAFF ID Date Data Source [id number] 2020 05:20:16 PM EDT [facility] Name Value Range Interpretation Code Description Data Ema rce(s) Supporting Document(s) POC GLUCOSE 131 mg/dL (70-99) [facility] NOTIFIED NURSEPERFORMED BY CLINICAL S TAFF ID Date Data Source [id number] 2020 11:56:19 AM EDT [facility] Name Value Range Interpretation Code Description Data Ema rce(s) Supporting Document(s) POC GLUCOSE 194 mg/dL (70-99) H [facility] NOTIFIED NURSEPERFORMED BY CLINICAL S TAFF ID Date Data Source [id number] 2020 09:15:41 AM EDT [facility] Name Value Range Interpretation Code Description Data Ema rce(s) Supporting Document(s) POC GLUCOSE 107 mg/dL (70-99) [facility] PERFORMED BY CLINICAL STAFF ID Date Data Source [id number] 2020 03:33:54 PM EDT [facility] Name Value Range Interpretation Code Description Data Ema rce(s) Supporting Document(s) IRON,TOTAL @ 15 ug/dL (35-150) [facility] UIBC @ 184 ug/dL (130-375) [facility] TIBC @ 199 ug/dL (250-450) L [facility] % SATURATION 8 % (12-50) [facility] ID Date Data Source [id number] 2020 03:33:54 PM EDT [facility] Name Value Range Interpretation Code Description Data Ema rce(s) Supporting Document(s) FERRITIN @ 66 ng/mL (26-388) [facility] ID Date Data Source [id number] 2020 09:16:02 AM EDT [facility] Name Value Range Interpretation Code Description Data Ema rce(s) Supporting Document(s) MAGNESIUM 2.3 mg/dL (1.7-2.4) [facility] ID Date Data Source [id number] 2020 09:16:02 AM EDT [facility] Name Value Range Interpretation Code Description Data Ema rce(s) Supporting Document(s) SODIUM 138 mmol/L (136-145) [facility] POTASSIUM 3.9 mmol/L (3.6-5.2) [facility] CHLORIDE 109 mmol/L (100-108) [facility] CO2 21 mmol/L (22-31) [facility] ANION GAP 8 mmol/L (7-16) [facility] UREA NITROGEN 47 mg/dL (7-24) [facility] CREATININE 2.38 mg/dL (0.80-1.30) H [facility] BUN/CREAT RATIO 19.7 RATIO (10.0-20.0) [facility] GLUCOSE 97 mg/dL (70-99) [facility] CALCIUM 8.3 mg/dL (8.4-10.2) L [facility] GFR 27 ml/min/1.73m2 (>59) L [facility] GFR ( AMER) 32 ml/min/1.73m2 (>59) L [facility] GFR INTERPRETATION [facility] --NORMAL KIDNEY FUNCTION OR MILD DISEASE - GFR >OR= 60CHRONIC KIDNEY DISEASE - GFR 15 - 59RENAL FAILURE - GFR <15 Est. GFR calculation based on the MDRDstudy equation, which assumes a steadystate for creatinine. Est. GFR should notbe used for medication dosing. ID Date Data Source [id number] 2020 08:35:06 AM EDT [facility] Name Value Range Interpretation Code Description Data Ema rce(s) Supporting Document(s) WBC 7.3 10*3/uL (4.1-11.0) [facility] RBC 3.01 10*6/uL (4.60-6.10) L [facility] HGB 8.5 g/dL (13.5-18.0) [facility] HCT 25.3 % (41.0-53.0) [facility] MCV 84.2 fL (80.0-95.0) [facility] MCH 28.3 pg (27.0-32.0) [facility] MCHC 33.6 g/dL (32.0-36.0) [facility] RDW 16.0 % (10.5-14.5) [facility] PLT 119 10*3/uL (150-450) [facility] MPV 9.5 fL (7.1-10.7) [facility] NEUT % 76.4 % (35.0-75.0) [facility] LYMPH % 5.5 % (16.0-52.0) [facility] MONO % 11.3 % (0.0-8.0) [facility] EOS % 6.0 % (0.0-5.0) [facility] BASO % 0.8 % (0.0-4.0) [facility] NEUT # 5.6 10*3/uL (1.8-7.7) [facility] LYMPH # 0.4 10*3/uL (1.2-4.8) [facility] MONO # 0.8 10*3/uL (0.0-0.8) [facility] Eosinophils [#/volume] in Blood by Automated count 0.4 10*3/uL (0.0-0 .5) [facility] BASO # 0.1 10*3/uL (0.0-0.2) [facility] ID Date Data Source [id number] 2020 06:43:31 AM EDT [facility] Name Value Range Interpretation Code Description Data Ema rce(s) Supporting Document(s) POC GLUCOSE 96 mg/dL (70-99) [facility] PERFORMED BY CLINICAL STAFF ID Date Data Source [id number] 2020 12:23:25 AM EDT [facility] Name Value Range Interpretation Code Description Data Ema rce(s) Supporting Document(s) POC GLUCOSE 108 mg/dL (70-99) H [facility] PERFORMED BY CLINICAL STAFF ID Date Data Source [id number] 11/19/2020 06:15:18 PM EDT [facility] Name Value Range Interpretation Code Description Data Ema rce(s) Supporting Document(s) POC GLUCOSE 153 mg/dL (70-99) [facility] NOTIFIED NURSEPERFORMED BY CLINICAL S TAFF ID Date Data Source [id number] 2020 07:14:05 AM EDT [facility] Name Value Range Interpretation Code Description Data Ema rce(s) Supporting Document(s) POC GLUCOSE 120 mg/dL (70-99) [facility] NOTIFIED NURSEPERFORMED BY CLINICAL S TAFF ID Date Data Source [id number] 11/19/2020 02:25:25 PM EDT [facility] Name Value Range Interpretation Code Description Data Ema rce(s) Supporting Document(s) TOTAL PROTEIN 5.1 g/dL (6.4-8.2) L [facility] ALBUMIN 1.9 g/dL (3.2-4.5) L [facility] GLOBULIN 3.2 g/dL (2.7-4.3) [facility] ALB/GLOB RATIO 0.6 RATIO [facility] BILIRUBIN,TOTAL 0.7 mg/dL (0.0-1.0) [facility] PLEASE NOTE:Total bilirubin results may be falselyelevated in patients taking Eltrombopag. BILIRUBIN,CONJUGATED 0.3 mg/dL (0.0-0.3) [facility] BILIRUBIN,UNCONJ. 0.4 mg/dL (0.0-0.7) [facility] ALKALINE PHOSPHATASE 63 U/L (45-117) [facility] AST (SGOT) 43 U/L (11-39) [facility] ALT (SGPT) 21 U/L (12-78) [facility] ID Date Data Source [id number] 11/19/2020 08:23:57 AM EDT [facility] Name Value Range Interpretation Code Description Data Ema rce(s) Supporting Document(s) VANCOMYCIN RANDOM 13.1 ug/mL [facility] THERAPEUTIC RANGE IS ONLY AVAILABLE FOR PEAK AND TROUGH SPECIMENS. RANDOM LEVEL RESULTS MUST BE INTERPRETED BY THE PHYSICIAN. ID Date Data Source [id number] 11/19/2020 08:23:57 AM EDT [facility] Name Value Range Interpretation Code Description Data Ema rce(s) Supporting Document(s) SODIUM 136 mmol/L (136-145) [facility] POTASSIUM 3.7 mmol/L (3.6-5.2) [facility] CHLORIDE 105 mmol/L (100-108) [facility] CO2 19 mmol/L (22-31) L [facility] ANION GAP 12 mmol/L (7-16) [facility] UREA NITROGEN 50 mg/dL (7-24) H [facility] CREATININE 2.59 mg/dL (0.80-1.30) [facility] BUN/CREAT RATIO 19.3 RATIO (10.0-20.0) [facility] GLUCOSE 89 mg/dL (70-99) [facility] CALCIUM 8.2 mg/dL (8.4-10.2) L [facility] GFR 24 ml/min/1.73m2 (>59) L [facility] GFR ( AMER) 29 ml/min/1.73m2 (>59) L [facility] GFR INTERPRETATION [facility] --NORMAL KIDNEY FUNCTION OR MILD DISEASE - GFR >OR= 60CHRONIC KIDNEY DISEASE - GFR 15 - 59RENAL FAILURE - GFR <15 Est. GFR calculation based on the MDRDstudy equation, which assumes a steadystate for creatinine. Est. GFR should notbe used for medication dosing. ID Date Data Source [id number] 11/19/2020 08:02:08 AM EDT [facility] Name Value Range Interpretation Code Description Data Ema rce(s) Supporting Document(s) WBC 10.1 10*3/uL (4.1-11.0) [facility] RBC 2.79 10*6/uL (4.60-6.10) L [facility] HGB 7.9 g/dL (13.5-18.0) [facility] HCT 23.6 % (41.0-53.0) [facility] MCV 84.5 fL (80.0-95.0) [facility] MCH 28.2 pg (27.0-32.0) [facility] MCHC 33.4 g/dL (32.0-36.0) [facility] RDW 16.1 % (10.5-14.5) [facility] PLT 104 10*3/uL (150-450) L [facility] MPV 9.2 fL (7.1-10.7) [facility] ID Date Data Source [id number] 11/19/2020 06:17:02 AM EDT [facility] Name Value Range Interpretation Code Description Data Ema rce(s) Supporting Document(s) POC GLUCOSE 108 mg/dL (70-99) [facility] PERFORMED BY CLINICAL STAFF ID Date Data Source [id number] 11/19/2020 12:16:43 AM EDT [facility] Name Value Range Interpretation Code Description Data Ema rce(s) Supporting Document(s) POC GLUCOSE 148 mg/dL (70-99) [facility] PERFORMED BY CLINICAL STAFF ID Date Data Source [id number] 2020 07:20:38 AM EDT [facility] SPECIMEN DESCRIPTION URINE, COLLE CTION METHOD NOT SPECIFIEDCULTURE RESULTS NO GROWTHREPORT STATUS FINAL 2020 Name Value Range Interpretation Code Description Data Ema rce(s) Supporting Document(s) ID Date Data Source [id number] 11/18/2020 05:46:48 PM EDT [facility] Name Value Range Interpretation Code Description Data Ema rce(s) Supporting Document(s) POC GLUCOSE 180 mg/dL (70-99) [facility] NOTIFIED NURSEPERFORMED BY CLINICAL S TAFF ID Date Data Source [id number] 11/18/2020 01:55:22 PM EDT [facility] Name Value Range Interpretation Code Description Data Ema rce(s) Supporting Document(s) POC GLUCOSE 156 mg/dL (70-99) [facility] PERFORMED BY CLINICAL STAFF ID Date Data Source [id number] 11/18/2020 01:26:32 PM EDT [facility] Name Value Range Interpretation Code Description Data Ema rce(s) Supporting Document(s) URINE WBC (0-5) [facility] URINE RBC (0-2) [facility] EPITHELIAL CELLS 1+ [HPF] [facility] BACTERIA 1+ [HPF] [facility] WBC CLUMPING 1+ [facility] ID Date Data Source [id number] 11/18/2020 01:14:40 PM EDT [facility] Name Value Range Interpretation Code Description Data Ema rce(s) Supporting Document(s) COLOR [facility] APPEARANCE [facility] SPEC GRAV URINE 1.016 (1.003-1.030) [facility] PH URINE 5.5 (5.0-7.5) [facility] LEUK ESTERASE 3+ (NEG) [facility] NITRITE URINE (NEG) [facility] PROTEIN URINE 1+ (NEG) [facility] GLUCOSE URINE (NEG) [facility] KETONE URINE (NEG) [facility] UROBILINOGEN 0.2 mg/dL (0-1.0) [facility] BILIRUBIN URINE (NEG) [facility] BLOOD/HGB URINE 3+ (NEG) [facility] [place] [facility] ID Date Data Source [id number] 11/21/2020 10:04:31 AM EDT [facility] [place] SPECIMEN DESCRIPTION PERIPHERALSP ECIAL REQUESTS NONEGRAM STAIN GRAM NEGATIVE RODSALERTED CRITICAL RESULT TO DOREEN LIPSCOMB 5SIR @ 0940 11/19/2020 [place] [id number] CULTURE RESULTS PSEUDOMONAS AERUGINOSA PSEUDOMONAS AERUGINOSA BY [...] rce(s) Supporting Document(s) ID Date Data Source [id number] 11/23/2020 11:15:10 AM EDT [facility] [place] [facility] SPECIMEN DESCRIPTION PERIPHERALSP ECIAL REQUESTS NONECULTURE RESULTS NO GROWTH 5 DAYSREPORT STATUS FINAL 11/23/2020 Name Value Range Interpretation Code Description Data Ema rce(s) Supporting Document(s) ID Date Data Source [id number] 11/18/2020 09:33:00 AM EDT [facility] DATE OF EXAM: 11/18/2020XAM: Ultrasound vascular: Bilateral [...] left Stevens's cyst. Professional interpretation performed at [facility] .End of diagnostic report for accession: [id number] Interpreted: Charbel Vizcaino MDTranscribed: 11/18/2020 09:32 AMSigned: 11/18/2020 09:33 AM Charbel Vizcaino MD [facility] # [id number] BILL # [id number] Name Value Range Interpretation Code Description Data Ema rce(s) Supporting Document(s) ID Date Data Source [id number] 11/18/2020 07:03:40 AM EDT [facility] [facility] Name Value Range Interpretation Code Description Data Ema rce(s) Supporting Document(s) POC GLUCOSE 117 mg/dL (70-99) [facility] [place] [facility] PERFORMED BY CLINICAL STAFF ID Date Data Source [id number] 11/18/2020 07:24:24 AM EDT [facility] Name Value Range Interpretation Code Description Data Ema rce(s) Supporting Document(s) MAGNESIUM 2.2 mg/dL (1.7-2.4) [facility] ID Date Data Source [id number] 11/18/2020 07:24:24 AM EDT [facility] Name Value Range Interpretation Code Description Data Ema rce(s) Supporting Document(s) NT PRO BNP 223 pg/mL (0-450) [facility] ID Date Data Source [id number] 11/18/2020 07:24:24 AM EDT [facility] Name Value Range Interpretation Code Description Data Ema rce(s) Supporting Document(s) TROPONIN I <0.05 ng/mL (<0.05) [facility] [place] Less than 0.05: Myocardial injury unlike lyGreater than or equal to 0.05: Highly suggestive of myocardial injuryCorrelation with rise and/or fall ofserial troponins, clinical symptomsand ECG changes is necessary. ID Date Data Source [id number] 11/18/2020 07:24:24 AM EDT [facility] Name Value Range Interpretation Code Description Data Ema rce(s) Supporting Document(s) SODIUM 137 mmol/L (136-145) [facility] POTASSIUM 4.1 mmol/L (3.6-5.2) [facility] CHLORIDE 105 mmol/L (100-108) [facility] CO2 25 mmol/L (22-31) [facility] ANION GAP 7 mmol/L (7-16) [facility] UREA NITROGEN 50 mg/dL (7-24) H [facility] CREATININE 2.22 mg/dL (0.80-1.30) H [facility] BUN/CREAT RATIO 22.5 RATIO (10.0-20.0) H [facility] GLUCOSE 127 mg/dL (70-99) H [facility] CALCIUM 9.3 mg/dL (8.4-10.2) [facility] GFR 29 ml/min/1.73m2 (>59) L [facility] GFR ( AMER) 35 ml/min/1.73m2 (>59) L [facility] GFR INTERPRETATION [facility] --NORMAL KIDNEY FUNCTION OR MILD DISEASE - GFR >OR= 60CHRONIC KIDNEY DISEASE - GFR 15 - 59RENAL FAILURE - GFR <15 Est. GFR calculation based on the MDRDstudy equation, which assumes a steadystate for creatinine. Est. GFR should notbe used for medication dosing. ID Date Data Source [id number] 11/18/2020 06:53:47 AM EDT [facility] Name Value Range Interpretation Code Description Data Ema rce(s) Supporting Document(s) WBC 3.7 10*3/uL (4.1-11.0) L [facility] [place] RBC 3.44 10*6/uL (4.60-6.10) L [facility] HGB 9.6 g/dL (13.5-18.0) L [facility] HCT 29.1 % (41.0-53.0) L [facility] MCV 84.5 fL (80.0-95.0) [facility] MCH 27.9 pg (27.0-32.0) [facility] MCHC 33.1 g/dL (32.0-36.0) [facility] RDW 16.2 % (10.5-14.5) H [facility] PLT 116 10*3/uL (150-450) L [facility] MPV 8.9 fL (7.1-10.7) [facility] NEUT % 92.1 % (35.0-75.0) H [facility] LYMPH % 3.1 % (16.0-52.0) L [facility] MONO % 2.5 % (0.0-8.0) [facility] EOS % 2.1 % (0.0-5.0) [facility] BASO % 0.2 % (0.0-4.0) [facility] NEUT # 3.4 10*3/uL (1.8-7.7) [facility] LYMPH # 0.1 10*3/uL (1.2-4.8) L [facility] MONO # 0.1 10*3/uL (0.0-0.8) [facility] Eosinophils [#/volume] in Blood by Automated count 0.1 10*3/uL (0.0-0 .5) [facility] BASO # 0.0 10*3/uL (0.0-0.2) [facility] ID Date Data Source [id number] 11/18/2020 07:02:00 AM EDT [facility] Name Value Range Interpretation Code Description Data Ema rce(s) Supporting Document(s) LACTIC ACID 1.9 mmol/L (0.4-2.0) [facility] [place] ID Date Data Source [id number] 11/18/2020 08:13:00 AM EDT [facility] DATE OF EXAM: 11/18/2020XAM: Portable c hest INDICATION: DYSPNEA COMPARISON: 02/18/2011 TECHNIQUE: AP upright. There is a limited degree of inspiration with mild accentuation of the pulmonary vascular markings. No focal area of pneumonia or atelectasis is seen. The mediastinum, heart, and pulmonary vascularity are within normal limits. IMPRESSION: No acute disease. Professional interpretation performed at [facility] .End of diagnostic report for accession: [id number] Interpreted: Charbel Vizcaino MDTranscribed: 11/18/2020 08:12 AMSigned: 11/18/2020 08:13 AM Charbel Vizcaino MD [facility] # [id number] [facility] # [id number] Name Value Range Interpretation Code Description Data Ema rce(s) Supporting Document(s) ID Date Data Source [id number] 11/18/2020 12:01:07 AM EDT [facility] Name Value Range Interpretation Code Description Data Ema rce(s) Supporting Document(s) POC GLUCOSE 156 mg/dL (70-99) H [facility] PERFORMED BY CLINICAL STAFF ID Date Data Source [id number] 11/17/2020 05:55:37 PM EDT [facility] Name Value Range Interpretation Code Description Data Ema rce(s) Supporting Document(s) POC GLUCOSE 137 mg/dL (70-99) H [facility] NOTIFIED NURSEPERFORMED BY CLINICAL S TAFF ID Date Data Source [id number] 11/17/2020 12:25:31 PM EDT [facility] Name Value Range Interpretation Code Description Data Ema rce(s) Supporting Document(s) POC GLUCOSE 131 mg/dL (70-99) H [facility] NOTIFIED NURSEPERFORMED BY CLINICAL S TAFF ID Date Data Source [id number] 11/17/2020 08:55:54 AM EDT [facility] Name Value Range Interpretation Code Description Data Ema rce(s) Supporting Document(s) SODIUM 141 mmol/L (136-145) [facility] POTASSIUM 4.1 mmol/L (3.6-5.2) [facility] CHLORIDE 109 mmol/L (100-108) H [facility] CO2 23 mmol/L (22-31) [facility] ANION GAP 9 mmol/L (7-16) [facility] UREA NITROGEN 51 mg/dL (7-24) H [facility] CREATININE 2.05 mg/dL (0.80-1.30) H [facility] BUN/CREAT RATIO 24.9 RATIO (10.0-20.0) H [facility] GLUCOSE 107 mg/dL (70-99) H [facility] CALCIUM 9.2 mg/dL (8.4-10.2) [facility] GFR 32 ml/min/1.73m2 (>59) L [facility] GFR ( AMER) 38 ml/min/1.73m2 (>59) L [facility] GFR INTERPRETATION [facility] --NORMAL KIDNEY FUNCTION OR MILD DISEASE - GFR >OR= 60CHRONIC KIDNEY DISEASE - GFR 15 - 59RENAL FAILURE - GFR <15 Est. GFR calculation based on the MDRDstudy equation, which assumes a steadystate for creatinine. Est. GFR should notbe used for medication dosing. ID Date Data Source [id number] 11/17/2020 08:35:35 AM EDT [facility] Name Value Range Interpretation Code Description Data Ema rce(s) Supporting Document(s) WBC 4.5 10*3/uL (4.1-11.0) [facility] [place] RBC 3.11 10*6/uL (4.60-6.10) L [facility] HGB 8.5 g/dL (13.5-18.0) L [facility] HCT 26.5 % (41.0-53.0) L [facility] MCV 85.3 fL (80.0-95.0) [facility] MCH 27.4 pg (27.0-32.0) [facility] MCHC 32.1 g/dL (32.0-36.0) [facility] RDW 16.2 % (10.5-14.5) H [facility] PLT 102 10*3/uL (150-450) L [facility] MPV 9.4 fL (7.1-10.7) [facility] NEUT % 77.2 % (35.0-75.0) H [facility] LYMPH % 7.2 % (16.0-52.0) L [facility] MONO % 10.8 % (0.0-8.0) H [facility] EOS % 4.3 % (0.0-5.0) [facility] BASO % 0.5 % (0.0-4.0) [facility] NEUT # 3.5 10*3/uL (1.8-7.7) [facility] LYMPH # 0.3 10*3/uL (1.2-4.8) L [facility] MONO # 0.5 10*3/uL (0.0-0.8) [facility] Eosinophils [#/volume] in Blood by Automated count 0.2 10*3/uL (0.0-0 .5) [facility] BASO # 0.0 10*3/uL (0.0-0.2) [facility] ID Date Data Source [id number] 11/17/2020 05:32:32 AM EDT [facility] Name Value Range Interpretation Code Description Data Ema rce(s) Supporting Document(s) POC GLUCOSE 112 mg/dL (70-99) H [facility] NOTIFIED NURSEPERFORMED BY CLINICAL S TAFF ID Date Data Source [id number] 11/17/2020 03:04:02 AM EDT [facility] Name Value Range Interpretation Code Description Data Ema rce(s) Supporting Document(s) STOOL OCCULT BLOOD (NEG) [facility] ID Date Data Source [id number] 11/17/2020 12:19:03 AM EDT [facility] Name Value Range Interpretation Code Description Data Ema rce(s) Supporting Document(s) POC GLUCOSE 134 mg/dL (70-99) H [facility] NOTIFIED NURSEPERFORMED BY CLINICAL S TAFF ID Date Data Source [id number] 11/16/2020 06:51:12 PM EDT [facility] Name Value Range Interpretation Code Description Data Ema rce(s) Supporting Document(s) POC GLUCOSE 120 mg/dL (70-99) H [facility] PERFORMED BY CLINICAL STAFF ID Date Data Source [id number] 11/16/2020 06:47:00 PM EDT Israel Naranjo al [...] position. X7End of diagnostic report for accession: [id number] Interpreted: Charbel Kilpatrick MDTranscribed: 11/16/2020 06:41 PMSigned: 11/16/2020 06:47 PM Charbel Kilpatrick MD ------- [facility] # [id number] [facility] # [id number] Name Value Range Interpretation Code Description Data Ema rce(s) Supporting Document(s) ID Date Data Source [id number] 11/16/2020 01:15:02 PM EDT [facility] Name Value Range Interpretation Code Description Data Ema rce(s) Supporting Document(s) FLUID CREATININE 1.75 mg/dL [facility] ID Date Data Source [id number] 11/16/2020 12:52:45 PM EDT [facility] Name Value Range Interpretation Code Description Data Ema rce(s) Supporting Document(s) FLUID SOURCE [facility] [place] ID Date Data Source [id number] 11/16/2020 12:25:11 PM EDT [facility] Name Value Range Interpretation Code Description Data Ema rce(s) Supporting Document(s) POC GLUCOSE 149 mg/dL (70-99) H [facility] PERFORMED BY CLINICAL STAFF ID Date Data Source [id number] 11/16/2020 01:18:38 PM EDT [facility] Name Value Range Interpretation Code Description Data Ema rce(s) Supporting Document(s) SODIUM 142 mmol/L (136-145) [facility] POTASSIUM 3.9 mmol/L (3.6-5.2) [facility] CHLORIDE 109 mmol/L (100-108) H [facility] CO2 27 mmol/L (22-31) [facility] ANION GAP 6 mmol/L (7-16) L [facility] UREA NITROGEN 48 mg/dL (7-24) H [facility] CREATININE 1.97 mg/dL (0.80-1.30) H [facility] BUN/CREAT RATIO 24.4 RATIO (10.0-20.0) H [facility] GLUCOSE 149 mg/dL (70-99) H [facility] CALCIUM 9.4 mg/dL (8.4-10.2) [facility] TOTAL PROTEIN 6.5 g/dL (6.4-8.2) [facility] ALBUMIN 2.5 g/dL (3.2-4.5) L [facility] GLOBULIN 4.0 g/dL (2.7-4.3) [facility] ALB/GLOB RATIO 0.6 RATIO [facility] ALKALINE PHOSPHATASE 72 U/L (45-117) [facility] BILIRUBIN,TOTAL 0.7 mg/dL (0.0-1.0) [facility] PLEASE NOTE:Total bilirubin results may be falselyelevated in patients taking Eltrombopag. AST (SGOT) 33 U/L (11-39) [facility] ALT (SGPT) 13 U/L (12-78) [facility] GFR 33 ml/min/1.73m2 (>59) L [facility] GFR ( AMER) 40 ml/min/1.73m2 (>59) L [facility] GFR INTERPRETATION [facility] --NORMAL KIDNEY FUNCTION OR MILD DISEASE - GFR >OR= 60CHRONIC KIDNEY DISEASE - GFR 15 - 59RENAL FAILURE - GFR <15 Est. GFR calculation based on the MDRDstudy equation, which assumes a steadystate for creatinine. Est. GFR should notbe used for medication dosing. ID Date Data Source [id number] 11/16/2020 12:50:19 PM EDT [facility] Name Value Range Interpretation Code Description Data Ema rce(s) Supporting Document(s) WBC 6.5 10*3/uL (4.1-11.0) [facility] [place] RBC 3.22 10*6/uL (4.60-6.10) L [facility] HGB 8.9 g/dL (13.5-18.0) L [facility] HCT 27.3 % (41.0-53.0) L [facility] MCV 84.7 fL (80.0-95.0) [facility] MCH 27.6 pg (27.0-32.0) [facility] MCHC 32.6 g/dL (32.0-36.0) [facility] RDW 16.3 % (10.5-14.5) H [facility] PLT 102 10*3/uL (150-450) L [facility] MPV 8.9 fL (7.1-10.7) [facility] NEUT % 84.9 % (35.0-75.0) H [facility] LYMPH % 3.8 % (16.0-52.0) L [facility] MONO % 9.5 % (0.0-8.0) H [facility] EOS % 1.7 % (0.0-5.0) [facility] BASO % 0.1 % (0.0-4.0) [facility] NEUT # 5.5 10*3/uL (1.8-7.7) [facility] LYMPH # 0.2 10*3/uL (1.2-4.8) L [facility] MONO # 0.6 10*3/uL (0.0-0.8) [facility] Eosinophils [#/volume] in Blood by Automated count 0.1 10*3/uL (0.0-0 .5) [facility] BASO # 0.0 10*3/uL (0.0-0.2) [facility] ID Date Data Source [id number] 11/16/2020 07:25:10 AM EDT [facility] Name Value Range Interpretation Code Description Data Ema rce(s) Supporting Document(s) SODIUM 142 mmol/L (136-145) [facility] POTASSIUM 4.4 mmol/L (3.6-5.2) [facility] CHLORIDE 111 mmol/L (100-108) H [facility] CO2 25 mmol/L (22-31) [facility] ANION GAP 6 mmol/L (7-16) L [facility] UREA NITROGEN 48 mg/dL (7-24) H [facility] CREATININE 1.86 mg/dL (0.80-1.30) H [facility] BUN/CREAT RATIO 25.8 RATIO (10.0-20.0) H [facility] GLUCOSE 142 mg/dL (70-99) H [facility] CALCIUM 9.5 mg/dL (8.4-10.2) [facility] GFR 35 ml/min/1.73m2 (>59) L [facility] GFR ( AMER) 43 ml/min/1.73m2 (>59) L [facility] GFR INTERPRETATION [facility] --NORMAL KIDNEY FUNCTION OR MILD DISEASE - GFR >OR= 60CHRONIC KIDNEY DISEASE - GFR 15 - 59RENAL FAILURE - GFR <15 Est. GFR calculation based on the MDRDstudy equation, which assumes a steadystate for creatinine. Est. GFR should notbe used for medication dosing. ID Date Data Source [id number] 11/16/2020 06:44:48 AM EDT [facility] [place] Name Value Range Interpretation Code Description Data Ema rce(s) Supporting Document(s) WBC 6.0 10*3/uL (4.1-11.0) [facility] [place] RBC 3.20 10*6/uL (4.60-6.10) L [facility] HGB 9.2 g/dL (13.5-18.0) L [facility] HCT 27.4 % (41.0-53.0) L [facility] MCV 85.5 fL (80.0-95.0) [facility] MCH 28.6 pg (27.0-32.0) [facility] MCHC 33.4 g/dL (32.0-36.0) [facility] RDW 16.3 % (10.5-14.5) H [facility] PLT 92 10*3/uL (150-450) L [facility] MPV 9.2 fL (7.1-10.7) [facility] NEUT % 82.5 % (35.0-75.0) H [facility] LYMPH % 3.8 % (16.0-52.0) L [facility] MONO % 11.3 % (0.0-8.0) H [facility] EOS % 2.2 % (0.0-5.0) [facility] BASO % 0.2 % (0.0-4.0) [facility] NEUT # 5.0 10*3/uL (1.8-7.7) [facility] LYMPH # 0.2 10*3/uL (1.2-4.8) L [facility] MONO # 0.7 10*3/uL (0.0-0.8) [facility] Eosinophils [#/volume] in Blood by Automated count 0.1 10*3/uL (0.0-0 .5) [facility] BASO # 0.0 10*3/uL (0.0-0.2) [facility] ID Date Data Source [id number] 11/16/2020 06:06:03 AM EDT [facility] Name Value Range Interpretation Code Description Data Ema rce(s) Supporting Document(s) POC GLUCOSE 141 mg/dL (70-99) H [facility] NOTIFIED NURSEPERFORMED BY CLINICAL S TAFF ID Date Data Source [id number] 11/16/2020 12:07:42 AM EDT [facility] Name Value Range Interpretation Code Description Data Ema rce(s) Supporting Document(s) POC GLUCOSE 134 mg/dL (70-99) H [facility] NOTIFIED NURSEPERFORMED BY CLINICAL S TAFF ID Date Data Source [id number] 11/15/2020 06:20:11 PM EDT [facility] Name Value Range Interpretation Code Description Data Ema rce(s) Supporting Document(s) POC GLUCOSE 155 mg/dL (70-99) H [facility] NOTIFIED NURSEPERFORMED BY CLINICAL S TAFF ID Date Data Source [id number] 11/15/2020 12:38:28 PM EDT [facility] Name Value Range Interpretation Code Description Data Ema rce(s) Supporting Document(s) POC GLUCOSE 160 mg/dL (70-99) H [facility] NOTIFIED NURSEPERFORMED BY CLINICAL S TAFF ID Date Data Source [id number] 11/15/2020 12:50:54 PM EDT [facility] Name Value Range Interpretation Code Description Data Ema rce(s) Supporting Document(s) SODIUM 141 mmol/L (136-145) [facility] POTASSIUM 4.1 mmol/L (3.6-5.2) [facility] CHLORIDE 108 mmol/L (100-108) [facility] CO2 26 mmol/L (22-31) [facility] ANION GAP 7 mmol/L (7-16) [facility] UREA NITROGEN 36 mg/dL (7-24) H [facility] CREATININE 1.68 mg/dL (0.80-1.30) H [facility] BUN/CREAT RATIO 21.4 RATIO (10.0-20.0) H [facility] GLUCOSE 152 mg/dL (70-99) H [facility] CALCIUM 9.7 mg/dL (8.4-10.2) [facility] TOTAL PROTEIN 6.5 g/dL (6.4-8.2) [facility] ALBUMIN 2.7 g/dL (3.2-4.5) L [facility] GLOBULIN 3.8 g/dL (2.7-4.3) [facility] ALB/GLOB RATIO 0.7 RATIO [facility] ALKALINE PHOSPHATASE 72 U/L (45-117) [facility] BILIRUBIN,TOTAL 0.7 mg/dL (0.0-1.0) [facility] [facility] PLEASE NOTE:Total bilirubin results may be falselyelevated in patients taking Eltrombopag. AST (SGOT) 31 U/L (11-39) [facility] ALT (SGPT) 18 U/L (12-78) [facility] GFR 40 ml/min/1.73m2 (>59) L [facility] GFR ( AMER) 48 ml/min/1.73m2 (>59) L [facility] GFR INTERPRETATION [facility] --NORMAL KIDNEY FUNCTION OR MILD DISEASE - GFR >OR= 60CHRONIC KIDNEY DISEASE - GFR 15 - 59RENAL FAILURE - GFR <15 Est. GFR calculation based on the MDRDstudy equation, which assumes a steadystate for creatinine. Est. GFR should notbe used for medication dosing. ID Date Data Source [id number] 11/15/2020 12:11:25 PM EDT [facility] Name Value Range Interpretation Code Description Data Ema rce(s) Supporting Document(s) WBC 7.9 10*3/uL (4.1-11.0) [facility] [facility] [place] RBC 3.22 10*6/uL (4.60-6.10) L [facility] HGB 9.0 g/dL (13.5-18.0) L [facility] HCT 27.3 % (41.0-53.0) L [facility] MCV 84.8 fL (80.0-95.0) [facility] MCH 28.1 pg (27.0-32.0) [facility] MCHC 33.1 g/dL (32.0-36.0) [facility] RDW 16.1 % (10.5-14.5) H [facility] PLT 112 10*3/uL (150-450) L [facility] MPV 9.3 fL (7.1-10.7) [facility] ID Date Data Source [id number] 11/15/2020 05:46:43 AM EDT [facility] [place] Name Value Range Interpretation Code Description Data Ema rce(s) Supporting Document(s) POC GLUCOSE 156 mg/dL (70-99) H [facility] [place] [facility] [place] [facility] NOTIFIED NURSEPERFORMED BY CLINICAL S TAFF ID Date Data Source [id number] 11/15/2020 12:06:03 AM EDT [facility] Name Value Range Interpretation Code Description Data Ema rce(s) Supporting Document(s) POC GLUCOSE 153 mg/dL (70-99) H [facility] NOTIFIED NURSEPERFORMED BY CLINICAL S TAFF ID Date Data Source [id number] 11/14/2020 08:19:00 PM EDT [facility] DATE OF EXAM: 11/14/2020XAM: ABDOMINAL X-RAY. HISTORY: STENT TECHNIQUE: Single supine view the abdomen is obtained. Portions of the upper abdomen are excluded from the image [id number]. COMPARISON: Abdominal x-ray dated 02/18/2011. CT abdomen [...] bilateral hip osteoarthritis. Professional interpretation performed at [facility] .End of diagnostic report for accession: [id number] Interpreted: Marielena Simmons MDTranscribed: 11/14/2020 08:17 PMSigned: 11/14/2020 08:19 PM Marielena Simmons MD [facility] # [id number] BILL # [id number] Name Value Range Interpretation Code Description Data Ema rce(s) Supporting Document(s) ID Date Data Source [id number] 11/14/2020 06:01:30 PM EDT [facility] Name Value Range Interpretation Code Description Data Ema rce(s) Supporting Document(s) POC GLUCOSE 147 mg/dL (70-99) H [facility] [place] [facility] PERFORMED BY CLINICAL STAFF ID Date Data Source [id number] 11/14/2020 11:20:05 AM EDT [facility] Name Value Range Interpretation Code Description Data Ema rce(s) Supporting Document(s) POC GLUCOSE 182 mg/dL (70-99) H [facility] [facility] NOTIFIED NURSEPERFORMED BY CLINICAL S TAFF ID Date Data Source [id number] 11/14/2020 08:29:58 AM EDT [facility] Name Value Range Interpretation Code Description Data Ema rce(s) Supporting Document(s) SODIUM 143 mmol/L (136-145) [facility] POTASSIUM 4.7 mmol/L (3.6-5.2) [facility] CHLORIDE 112 mmol/L (100-108) H [facility] CO2 24 mmol/L (22-31) [facility] ANION GAP 7 mmol/L (7-16) [facility] UREA NITROGEN 22 mg/dL (7-24) [facility] CREATININE 1.09 mg/dL (0.80-1.30) [facility] BUN/CREAT RATIO 20.2 RATIO (10.0-20.0) H [facility] GLUCOSE 201 mg/dL (70-99) H [facility] CALCIUM 9.9 mg/dL (8.4-10.2) [facility] GFR >60 ml/min/1.73m2 (>59) [facility] GFR ( AMER) >60 ml/min/1.73m2 (>59) [facility] GFR INTERPRETATION [facility] --NORMAL KIDNEY FUNCTION OR MILD DISEASE - GFR >OR= 60CHRONIC KIDNEY DISEASE - GFR 15 - 59RENAL FAILURE - GFR <15 Est. GFR calculation based on the MDRDstudy equation, which assumes a steadystate for creatinine. Est. GFR should notbe used for medication dosing. ID Date Data Source [id number] 11/14/2020 08:10:07 AM EDT [facility] [place] Name Value Range Interpretation Code Description Data Ema rce(s) Supporting Document(s) WBC 7.7 10*3/uL (4.1-11.0) [facility] [place] RBC 3.25 10*6/uL (4.60-6.10) L [facility] HGB 9.3 g/dL (13.5-18.0) L [facility] HCT 28.2 % (41.0-53.0) L [facility] MCV 86.7 fL (80.0-95.0) [facility] MCH 28.5 pg (27.0-32.0) [facility] [place] [facility] MCHC 32.9 g/dL (32.0-36.0) [facility] [place] [facility] RDW 16.6 % (10.5-14.5) [facility] [place] [facility] PLT 113 10*3/uL (150-450) L [facility] [place] [facility] MPV 9.4 fL (7.1-10.7) [facility] [place] [facility] ID Date Data Source [id number] 11/14/2020 06:02:40 AM EDT [facility] [place] [facility] Name Value Range Interpretation Code Description Data Ema rce(s) Supporting Document(s) POC GLUCOSE 199 mg/dL (70-99) H [facility] [place] [facility] PERFORMED BY CLINICAL STAFF ID Date Data Source [id number] 11/13/2020 09:40:55 PM EDT [facility] [place] [facility] Name Value Range Interpretation Code Description Data Ema rce(s) Supporting Document(s) POC GLUCOSE 171 mg/dL (70-99) H [facility] [place] [facility] PERFORMED BY CLINICAL STAFF ID Date Data Source [id number] 11/13/2020 08:27:01 PM EDT [facility] [place] [facility] Name Value Range Interpretation Code Description Data Ema rce(s) Supporting Document(s) HEMOGLOBIN A1C @ 6.6 % (4.0-6.0) H [facility] [place] [facility] [place] Performed using [employer] immuno[facility] y.Care must be taken when interpreting [id number] in patients with a hemoglobin variantor decreased erythrocyte lifespan. Values 5.7 - 6.4% suggest prediabetes.Values >=6.5% are diagnostic for diabetes.REFERENCE: DIABETES CARE 2018: 41(S13-S27).PERFORMED AT [address] [facility] [place] [address] EST [place] GLUCOSE 143 mg/dL [facility] [place] ID Date Data Source [id number] 11/13/2020 07:05:42 PM EDT [facility] [place] [facility] [place] Name Value Range Interpretation Code Description Data Ema rce(s) Supporting Document(s) POC GLUCOSE 193 mg/dL (70-99) H [facility] PERFORMED BY CLINICAL STAFF ID Date Data Source [id number] 2020 11:32:00 AM EDT [facility] [facility], [place] [address]RNTYPUR NAME: SARINA LINARESDATE OF : 1940EPORT: OPERATIONPATIENT NUMBER: [id number] STATUS: IPMEDICAL RECORD NUMBER: [id number] OF ADMISSION: 11/13/2020ATE OF DISCHARGE:ROOM: 04DATE OF [...] crystalloid.COMPLICATIONS: None.DRAINS: A 10-mm GEOFF drain and 7-Swiss single J stent bilaterally.SPECIMENS: Bladder, prostate, and [...] ureter, I then clipped with 10 mm Hrk-w-[id number] clip and then transected and I continued [...] ileoconduit. Prior to closing the anastomosis, a 7-Swiss single Jstent was advanced up from the [...] Kitchen, MDDictated: 11/13/2020 17:08DT: 11/13/2020 17:16Job #: [id number]: [facility] computer generated reports are not confirmed orauthenticated unless they are signed by the providerElectronically Authenticated by:KRISTA KITCHEN MD On 2020 11:32 AM EDT Name Value Range Interpretation Code Description Data Ema rce(s) Supporting Document(s) ID Date Data Source [id number] 11/13/2020 04:57:08 PM EDT [facility] [place] [facility] Name Value Range Interpretation Code Description Data Ema rce(s) Supporting Document(s) POC GLUCOSE 166 mg/dL (70-99) H [facility] [place] [facility] [place] NOTIFIED PROVIDERNOTIFIED NURSEPERFORMED BY CLINICAL STAFF ID Date Data Source [id number] 11/13/2020 12:03:13 PM EDT [facility] [place] [facility] Name Value Range Interpretation Code Description Data Ema rce(s) Supporting Document(s) POC GLUCOSE 134 mg/dL (70-99) H [facility] [place] [facility] [place] [facility] PERFORMED BY CLINICAL STAFF ID Date Data Source [id number] 11/13/2020 08:24:00 AM EDT [facility] ([facility]) Name Value Range Interpretation Code Description Data Ema rce(s) Supporting Document(s) Surgical pathology study Laboratory test result [facility] ([facility]) [facility] [address] [place] [address] SURGICAL PATHOLOGY REPORT Patient Name:SARINA LINARES :1940 [...] Electronically Signed Out By Anisa Mcmillan D.O. [facility] [place], PGwenC. [address] [place] [id number] Technical component performed at [facility], [facility], Histopathology, [address] [place] [address], [phone]. Reported at [facility], [address] [place] [address], [phone]. This report may include immunohistochemical or in-situ hybridization results. Testing was developed and the performance characteristics determined by [facility] [place] [facility], [facility], as required by CLIA '88. The FDA has determined that approval for specific use is not necessary for clinical use. The quality of Hematoxylin and Eosin stains and as applicable, for all immunohistochemical and/or special stains, including positive and negative controls, were reviewed and considered appropriate. ICD codes: Z85.46 CPT4 codes: A: 49018N B: 29128G C: 81896L ID Date Data Source [id number] 11/22/2020 12:14:35 AM EDT Lab [facility] LABORATORY [address] [address]Axv# SURGICAL PATHOLOGY REPORTPatient Name:SARINA LINARES:2Received:11/14/2020ccession #:[id number](s) [...] By Anisa Mcmillan D.O. vlcPath[facility] [place] CityRose MarieGwen[address] [place] [id number] component performed at [facility], [facility], [address] [place] [address], [phone].Reported at [facility], [address] [place] [address], [phone].This report may include immunohistochemical or in-situ hybridizationresults. Testing was developed and the performance characteristicsdetermined by [facility], as required byCLIA '88. The FDA has determined that approval for specific use is notnecessary for clinical use. The quality of Hematoxylin and Eosin stainsand as applicable, for all immunohistochemical and/or special stains,including positive and negative controls, were reviewed and consideredappropriate.ICD codes: Z85.46CPT4 codes: A: 74137VI: 52753JD: 75733D Name Value Range Interpretation Code Description Data Ema rce(s) Supporting Document(s) ID Date Data Source [id number] 11/06/2020 02:53:00 PM EDT [facility] ([facility]) Name Value Range Interpretation Code Description Data Ema rce(s) Supporting Document(s) Protein [Presence] in Urine by Test strip 30 mg/dL [facility] ([facility]) Glucose [Presence] in Urine Laboratory test result [facility] ([facility]) Ua Nitrite Laboratory test result ME DENT ([facility]) Blood [Presence] in Urine by Visual Laboratory test result [facility] ([facility]) Ua Leuko Laboratory test result ME D[facility] ([facility]) Ketones [Presence] in Urine by Test strip Laboratory test result [facility] ([facility]) Color of Urine Laboratory test result [facility] ([facility]) Ua Specific Sondheimer 1.015 1.003-1.030 MEDE NT ([facility]) Clarity of Urine Laboratory test result [facility] ([facility]) pH of Urine by Test strip 7.0 5.0-7.5 [facility] ([facility]) Bilirubin.total [Presence] in Urine by Test strip Laboratory test res ult [facility] ([facility]) Urobilinogen [Mass/volume] in Urine by Test strip 0.2 E.U./dL 0.0-1.0 [facility] ([facility]) ID Date Data Source [id number] 11/06/2020 02:51:00 PM EDT [facility] ([facility]) Name Value Range Interpretation Code Description Data Ema rce(s) Supporting Document(s) Bacteria identified in Urine by Culture Laboratory test result [facility] ([facility]) SPECIMEN DESCRIPTION URINE, COLLE CTION METHOD NOT SPECIFIED CULTURE RESULTS MIXED UROGENITAL DEIRDRE; PLEASE SUBMIT A NEW SPEC IMEN IF CLINICALLY INDICATED. REPORT STATUS FINAL 11/08/2020 ID Date Data Source [id number] 11/08/2020 07:41:09 AM EDT [facility] - CORE SPECIMEN DESCRIPTION URINE, COLLE CTION METHOD NOT SPECIFIEDCULTURE RESULTS MIXED UROGENITAL DEIRDRE; PLEASE SUBMIT A NEW SPEC IMEN IF CLINICALLY INDICATED.REPORT STATUS FINAL 11/08/2020 Name Value Range Interpretation Code Description Data Ema rce(s) Supporting Document(s) ID Date Data Source [id number] 11/06/2020 02:00:50 PM EDT [facility] [place] [facility] SPEC EXP DATE 1PATI ENT ABO/Rh A POSITIVEANTIBODY SCREEN NEGATIVETESTING SITE PERFORMED AT [address] [place] [address] BANK COMMENT BLOOD TYPE CONFIRMED. Name Value Range Interpretation Code Description Data Ema rce(s) Supporting Document(s) ID Date Data Source [id number] 11/06/2020 01:36:41 PM EDT [facility] [place] [facility] Name Value Range Interpretation Code Description Data Ema rce(s) Supporting Document(s) SODIUM 140 mmol/L (136-145) [facility] [place] [facility] POTASSIUM 3.9 mmol/L (3.6-5.2) [facility] [place] [facility] CHLORIDE 110 mmol/L (100-108) H [facility] [place] [facility] CO2 27 mmol/L (22-31) [facility] [place] [facility] ANION GAP 3 mmol/L (7-16) L [facility] [place] [facility] UREA NITROGEN 16 mg/dL (7-24) [facility] [place] [facility] CREATININE 0.77 mg/dL (0.80-1.30) L [facility] [place] [facility] BUN/CREAT RATIO 20.8 RATIO (10.0-20.0) [facility] GLUCOSE 116 mg/dL (70-99) [facility] [place] [facility] CALCIUM 10.1 mg/dL (8.4-10.2) [facility] [place] [facility] TOTAL PROTEIN 7.1 g/dL (6.4-8.2) [facility] [place] [facility] ALBUMIN 3.1 g/dL (3.2-4.5) L [facility] [place] [facility] GLOBULIN 4.0 g/dL (2.7-4.3) [facility] [place] [facility] ALB/GLOB RATIO 0.8 RATIO [facility] [place] [facility] ALKALINE PHOSPHATASE 94 U/L (45-117) [facility] BILIRUBIN,TOTAL 0.6 mg/dL (0.0-1.0) [facility] [place] [facility] PLEASE NOTE:Total bilirubin results may be falselyelevated in patients taking Eltrombopag. AST (SGOT) 38 U/L (11-39) [facility] [place] [facility] ALT (SGPT) 31 U/L (12-78) [facility] [place] [facility] GFR >60 ml/min/1.73m2 (>59) [facility] [place] [facility] GFR ( AMER) >60 ml/min/1.73m2 (>59) [facility] [place] [facility] GFR INTERPRETATION [facility] --NORMAL KIDNEY FUNCTION OR MILD DISEASE - GFR >OR= 60CHRONIC KIDNEY DISEASE - GFR 15 - 59RENAL FAILURE - GFR <15 Est. GFR calculation based on the MDRDstudy equation, which assumes a steadystate for creatinine. Est. GFR should notbe used for medication dosing. ID Date Data Source [id number] 11/06/2020 01:25:50 PM EDT [facility] [place] [facility] [place] Name Value Range Interpretation Code Description Data Ema rce(s) Supporting Document(s) HEMOGLOBIN A1C @ 6.7 % (4.0-6.0) H [facility] [place] [facility] Performed using Siemens [place] immunoassa y.Care must be taken when interpreting [id number] in patients with a hemoglobin variantor decreased erythrocyte lifespan. Values 5.7 - 6.4% suggest prediabetes.Values >=6.5% are diagnostic for diabetes.REFERENCE: DIABETES CARE 2018: 41(S13-S27).PERFORMED AT [address] [place] [address] EST AVERAGE GLUCOSE 146 mg/dL [facility] ID Date Data Source [id number] 11/06/2020 01:09:23 PM EDT [facility] [place] [facility] Name Value Range Interpretation Code Description Data Ema rce(s) Supporting Document(s) WBC 3.2 10*3/uL (4.1-11.0) L [facility] [place] [facility] [place] RBC 3.44 10*6/uL (4.60-6.10) L [facility] [place] [facility] HGB 9.6 g/dL (13.5-18.0) [facility] [place] [facility] HCT 28.9 % (41.0-53.0) L [facility] [place] [facility] PERFORMED AT [address] [place] [address] MCV 84.2 fL (80.0-95.0) [facility] [place] [facility] MCH 27.9 pg (27.0-32.0) [facility] [place] [facility] MCHC 33.2 g/dL (32.0-36.0) [facility] [place] [facility] RDW 15.8 % (10.5-14.5) [facility] [place] [facility] PLT 117 10*3/uL (150-450) L [facility] [place] [facility] MPV 8.8 fL (7.1-10.7) [facility] [place] [facility] NEUT % 69.0 % (35.0-75.0) [facility] [place] [facility] LYMPH % 10.3 % (16.0-52.0) L [facility] [place] [facility] [place] [facility] MONO % 11.9 % (0.0-8.0) H [facility] [place] [facility] EOS % 6.5 % (0.0-5.0) H [facility] [place] [facility] BASO % 2.3 % (0.0-4.0) [facility] [place] [facility] NEUT # 2.2 10*3/uL (1.8-7.7) [facility] [place] [facility] LYMPH # 0.3 10*3/uL (1.2-4.8) L [facility] [place] [facility] [place] MONO # 0.4 10*3/uL (0.0-0.8) [facility] [place] [facility] Eosinophils [#/volume] in Blood by Automated count 0.2 10*3/uL (0.0-0 .5) [facility] [place] [facility] BASO # 0.1 10*3/uL (0.0-0.2) [facility] [place] [facility] ID Date Data Source [id number] 07/20/2020 03:20:00 PM EST [facility] ([facility]) Name Value Range Interpretation Code Description Data Ema rce(s) Supporting Document(s) Bacteria identified in Urine by Culture Laboratory test result [facility] ([facility]) SPECIMEN DESCRIPTION CATHETER,IND WELLING CULTURE RESULTS MIXED UROGENITAL DEIRDRE; PLEASE SUBMIT A NEW SPEC IMEN IF CLINICALLY INDICATED. REPORT STATUS FINAL 07/22/2020 ID Date Data Source [id number] 07/22/2020 09:37:50 AM EST [facility] - CORE SPECIMEN DESCRIPTION CATHETER,IND WELLINGCULTURE RESULTS MIXED UROGENITAL DEIRDRE; PLEASE SUBMIT A NEW SPEC IMEN IF CLINICALLY INDICATED.REPORT STATUS FINAL 07/22/2020 Name Value Range Interpretation Code Description Data Ema rce(s) Supporting Document(s) ID Date Data Source [id number] 07/20/2020 01:20:00 PM EST [facility] ([facility]) Name Value Range Interpretation Code Description Data Ema rce(s) Supporting Document(s) Glucose [Presence] in Urine Laboratory test result [facility] ([facility]) Protein [Presence] in Urine by Test strip 30 mg/dL [facility] ([facility]) Ua Nitrite Laboratory test result [facility] ([facility]) Ua Leuko Laboratory test result [facility] ([facility]) Color of Urine Laboratory test result [facility] ([facility]) Blood [Presence] in Urine by Visual Laboratory test result [facility] ([facility]) Ketones [Presence] in Urine by Test strip Laboratory test result [facility] ([facility]) Clarity of Urine Laboratory test result [facility] ([facility]) Ua Specific Sondheimer 1.015 1.003-1.030 MEDE NT ([facility]) pH of Urine by Test strip 7.0 5.0-7.5 [facility] ([facility]) Bilirubin.total [Presence] in Urine by Test strip Laboratory test res ult [facility] ([facility]) Urobilinogen [Mass/volume] in Urine by Test strip 0.2 E.U./dL 0.0-1.0 [facility] ([facility]) ID Date Data Source [id number] 05/30/2020 02:17:00 PM EST [facility] ([facility]) Name Value Range Interpretation Code Description Data Ema rce(s) Supporting Document(s) Bacteria identified in Urine by Culture Laboratory test result [facility] ([facility]) <content>SPECIMEN DESCRIPTION CATHETER,INDWELLING</content>
<content>CULTURE RESULTS >100,000 [...]
<content>CEFTAROLINE 0.25 SUSCEPTIBLE</content> ID Date Data Source [id number] 06/03/2020 07:48:59 AM EST Laboratory [facility] [...] rce(s) Supporting Document(s) ID Date Data Source [id number] 05/30/2020 02:11:00 PM EST [facility] ([facility]) Name Value Range Interpretation Code Description Data Ema rce(s) Supporting Document(s) Glucose [Presence] in Urine Laboratory test result [facility] ([facility]) Ua Nitrite Laboratory test result [facility] ([facility]) Protein [Presence] in Urine by Test strip 100 mg/dL [facility] ([facility]) Blood [Presence] in Urine by Visual Laboratory test result [facility] ([facility]) Ua Leuko Laboratory test result [facility] ([facility]) Color of Urine Laboratory test result [facility] ([facility]) Clarity of Urine Laboratory test result [facility] ([facility]) Ketones [Presence] in Urine by Test strip Laboratory test result [facility] ([facility]) Bilirubin.total [Presence] in Urine by Test strip Laboratory test res ult [facility] ([facility]) Ua Specific Sondheimer 1.020 1.003-1.030 MEDE NT ([facility]) pH of Urine by Test strip 6.0 5.0-7.5 [facility] ([facility]) Urobilinogen [Mass/volume] in Urine by Test strip 1.0 E.U./dL 0.0-1.0 [facility] ([facility]) ID Date Data Source [id number] 03/22/2020 11:21:00 AM EDT [facility] ([facility]) Name Value Range Interpretation Code Description Data Ema rce(s) Supporting Document(s) Glucose [Presence] in Urine Laboratory test result [facility] ([facility]) Protein [Presence] in Urine by Test strip Laboratory test result [facility] ([facility]) Ua Nitrite Laboratory test result [facility] ([facility]) Ua Leuko Laboratory test result [facility] ([facility]) Blood [Presence] in Urine by Visual Laboratory test result [facility] ([facility]) Color of Urine Laboratory test result [facility] ([facility]) Clarity of Urine Laboratory test result [facility] ([facility]) Ketones [Presence] in Urine by Test strip Laboratory test result [facility] ([facility]) Ua Specific Sondheimer Laboratory test result 1.003-1.030 [facility] ([facility]) Bilirubin.total [Presence] in Urine by Test strip Laboratory test res ult [facility] ([facility]) pH of Urine by Test strip 5.5 5.0-7.5 [facility] ([facility]) Urobilinogen [Mass/volume] in Urine by Test strip 0.2 E.U./dL 0.0-1.0 [facility] ([facility]) ID Date Data Source [id number] 03/20/2020 03:15:00 PM EDT [facility] ([facility]) Name Value Range Interpretation Code Description Data Ema rce(s) Supporting Document(s) Bacteria identified in Urine by Culture Laboratory test result [facility] ([facility]) SPECIMEN DESCRIPTION URINE, COLLE CTION METHOD NOT SPECIFIED CULTURE RESULTS >100,000 CFU/ML AEROCOCCUS URINAE NOTE: THERE ARE NO CLSI APPROVED CRITERIA FOR TESTING THE SUSCEPTIBILITY OF THIS ORGANISM TO ANTIBIOTICS. CONSULTATION WITH AN INFECTIOUS DISEASE PHYSICIAN OR PHARMACIST MAY BE WARRANTED IF THIS ORGANISM IS CLINICALLY SIGNIFICANT. REPORT STATUS FINAL 03/22/2020 ID Date Data Source [id number] 03/22/2020 09:29:42 AM EDT [facility] - CORE SPECIMEN DESCRIPTION URINE, COLLE CTION METHOD NOT SPECIFIEDCULTURE RESULTS >100,000 CFU/ML AEROCOCCUS URINAENOTE: THERE ARE NO CLSI APPROVED CRITERIA FOR TESTING THESUSCEPTIBILITY OF THIS ORGANISM TO ANTIBIOTICS. CONSULTATION WITH ANINFECTIOUS DISEASE PHYSICIAN OR PHARMACIST MAY BE WARRANTED IF THISORGANISM IS CLINICALLY SIGNIFICANT. REPORT STATUS FINAL 03/22/2020 Name Value Range Interpretation Code Description Data Ema rce(s) Supporting Document(s) ID Date Data Source [id number] 03/20/2020 02:44:00 PM EDT [facility] ([facility]) Name Value Range Interpretation Code Description Data Ema rce(s) Supporting Document(s) Glucose [Presence] in Urine 100 mg/dL [facility] ([facility]) Ua Leuko Laboratory test result [facility] ([facility]) Protein [Presence] in Urine by Test strip Laboratory test result [facility] ([facility]) Ua Nitrite Laboratory test result [facility] ([facility]) Color of Urine Laboratory test result [facility] ([facility]) Blood [Presence] in Urine by Visual Laboratory test result [facility] ([facility]) Ketones [Presence] in Urine by Test strip Laboratory test result [facility] ([facility]) Clarity of Urine Laboratory test result [facility] ([facility]) Ua Specific Sondheimer 1.015 1.003-1.030 MEDE NT ([facility]) pH of Urine by Test strip 7.0 5.0-7.5 [facility] ([facility]) Bilirubin.total [Presence] in Urine by Test strip Laboratory test res ult [facility] ([facility]) Urobilinogen [Mass/volume] in Urine by Test strip 1.0 E.U./dL 0.0-1.0 [facility] ([facility]) ID Date Data Source [id number] 03/16/2020 02:59:00 PM EDT [facility] ([facility]) Name Value Range Interpretation Code Description Data Ema rce(s) Supporting Document(s) Bacteria identified in Urine by Culture Laboratory test result [facility] ([facility]) <content>SPECIMEN DESCRIPTION URI NE, COLLECTION METHOD NOT SPECIFIED</content>
<content>CULTURE RESULTS <10,000 CFU/ML REPRESENTING URETHRAL DEIRDRE</content>
<content>REPORT STATUS FINAL 03/18/2020</content> ID Date Data Source [id number] 03/18/2020 07:58:46 AM EDT [facility] - CORE SPECIMEN DESCRIPTION URINE, COLLE CTION METHOD NOT SPECIFIEDCULTURE RESULTS <10,000 CFU/ML REPRESENTING URETHRAL [place] STATUS FINAL 03/18/2020 Name Value Range Interpretation Code Description Data Ema rce(s) Supporting Document(s) ID Date Data Source [id number] 03/16/2020 02:50:00 PM EDT [facility] ([facility]) Name Value Range Interpretation Code Description Data Ema rce(s) Supporting Document(s) Glucose [Presence] in Urine Laboratory test result [facility] ([facility]) Protein [Presence] in Urine by Test strip Laboratory test result [facility] ([facility]) Ua Nitrite Laboratory test result [facility] ([facility]) Ua Leuko Laboratory test result [facility] ([facility]) Ketones [Presence] in Urine by Test strip Laboratory test result [facility] ([facility]) Blood [Presence] in Urine by Visual Laboratory test result [facility] ([facility]) Color of Urine Laboratory test result [facility] ([facility]) Clarity of Urine Laboratory test result [facility] ([facility] [place]) Ua Specific Sondheimer 1.015 1.003-1.030 MEDE NT ([facility]) Bilirubin.total [Presence] in Urine by Test strip Laboratory test res ult [facility] ([facility]) pH of Urine by Test strip 7.0 5.0-7.5 [facility] ([facility]) Urobilinogen [Mass/volume] in Urine by Test strip 0.2 E.U./dL 0.0-1.0 [facility] ([facility]) ID Date Data Source [id number] 03/14/2020 10:54:17 AM EDT [facility] INFORMATIONPatient MRN Name Date of Age Gend*PT [id number] Sarina Linares 1940 79 years M SDCPT Location Admission Date/Time Visit ID Attending ProviderASNE AMBULATO* 03/02/20 0825 --- --- EPI ID CSN Admitting Provider [id number] Mar Castaneda MD([id number]) [place] [address] OPERATIVE REPORT OPNAME: SARINA LINARES#: [id number] #: NESURL ADMISSION DATE: 03/02/2020DOB: 1940 SEX: M PT TYPE: H SURACCT #: [id number] CARE PHYSICIAN:REFERRING PHYSICIAN: MAR ALICEAATE OF OPERATION: [...] furthertherapy, risk of general anesthesia, PE, CVA, AR, systemic effect of them edication and paralysis of the bladder. All questions were answered.Informed consent was obtained.DESCRIPTION OF PROCEDURE:The patient was prepped and draped in normal sterile fashion with the areaof interest being the genitalia exposed in the dorsal lithotomy positionafter induction of adequate MAC anesthetic. The patient did receivepreoperative IV antibiotics as well as pneumatic compression stockingsprior to induction of anesthesia.A 19-Swiss rigid cystoscope was advanced through the urethra [...] He already has antibiotics at home.Recommendation for zuar-[id number]-meoqoyq pain medications for any discomfort.He should remain well hydrated.RECOMMENDATIONS:No heavy lifting, straining, exercise. No driving on pain medication. Hewill follow up in the office in 2 weeks as scheduled. Findings werereviewed with the patient's over the phone postoperatively.TIMOTEO DAVIDSON/ARCADIO Job #: [id number] DOC #: [id number] Name Value Range Interpretation Code Description Data Ema rce(s) Supporting Document(s) ID Date Data Source [id number] 03/02/2020 11:53:00 AM EDT [facility] ([facility]) Name Value Range Interpretation Code Description Data Ema rce(s) Supporting Document(s) Composition in Stone Laboratory test result [facility] ([facility]) Calculi composed primarily of: 50% magnesium [...] composition determined by FTIR analysis. Performed By: [employer] [address] [place] [id number] [place] Man: Flor Rosales MD Weight of Unspecified specimen 76 mg [facility] ([facility]) Number of Stones 2 [facility] ([facility]) Size [Entitic volume] of Stone Laboratory test result [facility] ([facility]) Unit: mm Appearance of Stone Laboratory test result [facility] ([facility] Technician [facility]) Specimen consists of two, various sized (1 mm to 9 mm), montero, irregular calculi fragments. ID Date Data Source [id number] 03/07/2020 07:23:28 PM EDT [facility] [place] [facility] Name Value Range Interpretation Code Description Data Ema rce(s) Supporting Document(s) COMPOSITION [facility] [place] [facility] See Note Calculi composed primarily of: [...] composition determined by FTIR analysis. Performed By: [employer] [address] [place] [id number] [place] Man: Flor Rosales MD MASS 76 mg [facility] [place] [facility] CALCULI NUMBER 2 [facility] [place] [facility] CALCULI SIZE [facility] [place] [facility] VariousUnit: mm CALCULI DESCRIPTION Lab [facility] See Note Specimen consists of two, vario us sized (1 mm to 9 mm), montero, irregular calculi fragments. ID Date Data Source [id number] 03/02/2020 10:50:03 AM [facility] INFORMATIONPatient MRN Name Date of Age Gend*PT [id number] Sarina Linares 1940 79 years M SDCPT Location Admission Date/Time Visit ID Attending ProviderASNE AMBULATO* 03/02/20 0825 --- Mar Castaneda MD([id number]) EPI ID CSN Admitting Provider [id number] Mar Castaneda MD([id number])H&P reviewed. The patient was examined and there are no changes to the H&P.The H&P that is being updated is available for review and was brought in Nba Castaneda MD10:50 AM Name Value Range Interpretation Code Description Data Ema rce(s) Supporting Document(s) ID Date Data Source [id number] 02/26/2020 09:30:00 AM EDT [facility] Name Value Range Interpretation Code Description Data Ema rce(s) Supporting Document(s) SARS coronavirus 2 RNA [facility] This lab was ordered by [facility] [place] [facility] and reported by [facility]. ID Date Data Source [id number] 02/27/2020 12:07:19 PM EDT [facility] [place] [facility] Name Value Range Interpretation Code Description Data Ema rce(s) Supporting Document(s) SARS-COV-2 JUST[facility] Paulette Not DetectedReference range: Not Detecte d This nucleic acid amplification test was developed and its performance characteristics determined by [employer]. Nucleic acid amplification tests include PCR and [...] detected) result in this assay. Performed At: [address] [id number] Osvaldo Dobson MD Ph:[phone] ID Date Data Source [id number] 02/24/2020 03:03:00 PM EDT [facility] ([facility] Name Value Range Interpretation Code Description Data Ema rce(s) Supporting Document(s) Bacteria identified in Urine by Culture Laboratory test result [facility] ([facility]) <content>SPECIMEN DESCRIPTION URI NE, COLLECTION METHOD NOT SPECIFIED</content>
<content>CULTURE RESULTS >10,000 TO <100,000 CFU/ML AEROCOCCUS URINAE</content>
<content>NOTE: THERE ARE NO CLSI APPROVED CRITERIA FOR TESTING THE</content>
<content>SUSCEPTIBILITY OF THIS ORGANISM TO ANTIBIOTICS. CONSULTATION WITH AN</content>
<content>INFECTIOUS DISEASE PHYSICIAN OR PHARMACIST MAY BE WARRANTED IF THIS</content>
<content>ORGANISM IS CLINICALLY SIGNIFICANT.</content>
<content> </content>
<content>REPORT STATUS FINAL 02/26/2020</content> ID Date Data Source [id number] 02/26/2020 12:44:43 PM EDT [facility] [place] [facility] [facility] - CORE SPECIMEN DESCRIPTION URINE, COLLE CTION [...] rce(s) Supporting Document(s) ID Date Data Source [id number] 02/24/2020 02:48:00 PM EDT [facility] ([facility]) Name Value Range Interpretation Code Description Data Ema rce(s) Supporting Document(s) Protein [Presence] in Urine by Test strip Laboratory test result [facility] ([facility]) Glucose [Presence] in Urine 100 mg/dL [facility] ([facility]) Ua Nitrite Laboratory test result ME DENT ([facility]) Ua Leuko Laboratory test result [facility] ([facility]) Color of Urine Laboratory test result [facility] ([facility]) Blood [Presence] in Urine by Visual Laboratory test result [facility] ([facility]) Ua Specific [place]heimer 1.020 1.003-1.030 MEDE NT ([facility]) Ketones [Presence] in Urine by Test strip Laboratory test result [facility] ([facility]) Clarity of Urine Laboratory test result [facility] ([facility]) Bilirubin.total [Presence] in Urine by Test strip Laboratory test res ult [facility] ([facility]) pH of Urine by Test strip 6.0 5.0-7.5 [facility] ([facility]) Urobilinogen [Mass/volume] in Urine by Test strip 0.2 E.U./dL 0.0-1.0 [facility] ([facility]) ID Date Data Source [id number] 02/21/2020 10:48:00 AM EDT [facility] ([facility]) Name Value Range Interpretation Code Description Data Ema rce(s) Supporting Document(s) Bacteria identified in Urine by Culture Laboratory test result [facility] ([facility]) Procedure Social History Code Duration Value Status Description Data Source(s ) Smoking 04/02/2021 12:00:00 AM EDT Never Smoker completed Never S moker eCW1 ([facility]) Smoking 03/20/2021 12:00:00 AM EDT Never Smoked Cigarettes com pleted Never Smoked Cigarettes [facility] ([facility]) Smoking 03/05/2021 12:00:00 AM EDT Never Smoker completed Never S moker eCW1 ([facility]) Smoking 03/05/2021 12:00:00 AM EDT Never Smoker completed Never S moker eCW1 ([facility]) Smoking 03/05/2021 12:00:00 AM EDT Never Smoker completed Never S moker eCW1 ([facility]) Smoking 03/05/2021 12:00:00 AM EDT Never Smoker completed Never S moker eCW1 ([facility]) Smoking 03/05/2021 12:00:00 AM EDT Never Smoker completed Never S moker eCW1 ([facility]) Smoking 02/20/2021 12:00:00 AM EDT Never Smoker completed Never S moker eCW1 ([facility]) Smoking 01/31/2021 12:58:00 AM EDT Denies Ever Smoked complete d Denies Ever Smoked [facility] Smoking 01/01/2021 12:00:00 AM EDT Never Smoker completed Never S moker eCW1 ([facility]) Smoking 01/01/2021 12:00:00 AM EDT Never Smoker completed Never S moker eCW1 ([facility]) Smoking 01/01/2021 12:00:00 AM EDT Never Smoker completed Never S moker eCW1 ([facility]) Smoking 01/01/2021 12:00:00 AM EDT Never Smoker completed Never S moker eCW1 ([facility]) Smoking 01/01/2021 12:00:00 AM EDT Never Smoker completed Never S moker eCW1 ([facility]) Smoking 01/01/2021 12:00:00 AM EDT Never Smoker completed Never S moker eCW1 ([facility]) Smoking 01/01/2021 12:00:00 AM EDT Never Smoker completed Never S moker eCW1 ([facility]) Smoking 01/01/2021 12:00:00 AM EDT Never Smoker completed Never S moker eCW1 ([facility]) Smoking 11/28/2020 12:00:00 AM EDT Never Smoker completed Never S moker eCW1 ([facility]) Smoking 11/28/2020 12:00:00 AM EDT Never Smoker completed Never S moker eCW1 ([facility]) Smoking 11/28/2020 12:00:00 AM EDT Never Smoker completed Never S moker eCW1 ([facility]) Smoking 11/28/2020 12:00:00 AM EDT Never Smoker completed Never S moker eCW1 ([facility]) Smoking 11/21/2020 04:02:00 PM EDT Denies Ever Smoked complete d Denies Ever Smoked [facility] Smoking 11/11/2020 12:00:00 AM EDT Never Smoker completed Never S moker eCW1 ([facility]) Smoking 11/11/2020 12:00:00 AM EDT Never Smoker completed Never S moker eCW1 ([facility]) Smoking 11/07/2020 12:00:00 AM EDT Never Smoker completed Never S moker eCW1 ([facility]) Smoking 05/11/2020 12:00:00 AM EST Never Smoker completed Never S moker eCW1 ([facility]) Smoking 05/11/2020 12:00:00 AM EST Never Smoker completed Never S moker eCW1 ([facility]) Smoking 05/11/2020 12:00:00 AM EST Never Smoker completed Never S moker eCW1 ([facility]) Smoking 05/11/2020 12:00:00 AM EST Never Smoker completed Never S moker eCW1 ([facility]) Vital Signs ID Date Data Source UNK Name Value Range Interpretation Code Description Data Source(s) Body weight 175.0 [lb_av] 175.0 [lb_av] eCW1 ([facility]) Diastolic blood pressure 56 mm[Hg] 56 mm[Hg] eCW1 ([facility]) Body height 71 [in_i] 71 [in_i] eCW1 ([facility]) Body mass index (BMI) [Ratio] 24.40 kg/m2 24.40 kg/m2 eCW1 ([facility]) Heart rate 99 /min 99 /min eCW1 ([facility]) Respiratory rate 18 /min 18 /min eCW1 ([facility]) Body temperature 97.1 [degF] 97.1 [degF] eCW1 ( [facility]) Systolic blood pressure 102 mm[Hg] 102 mm[Hg] e CW1 ([facility]) Body weight 79.380 kg 79.380 kg [facility] ([facility] Body mass index (BMI) [Ratio] 24.4 kg/m2 24.4 k g/m2 [facility] ([facility]) Systolic blood pressure 125 mm[Hg] 125 mm[Hg] M [facility]ENT ([facility]) Diastolic blood pressure 60 mm[Hg] 60 mm[Hg] [facility] ([facility]) Heart rate 97 /min 97 /min [facility] ([facility] Body height 71 [in_i] 71 [in_i] [facility] ([facility]) 5'11" Body weight 175.00 [lb_av] 175.00 [lb_av] [facility] T ([facility]) Body mass index (BMI) [Ratio] 27.48 kg/m2 No rmal (applies to non-numeric results) 27.48 kg/m2 [facility] Body height 179.2224 cm Normal (applies to non-numeric res ults) 179.2224 cm [facility] Body weight Measured 89.358 kg Normal (applies to n on-numeric results) 89.358 kg [facility] Body temperature 36.5 ifeanyi Normal (applies to non-numeric results) 36.5 ifeanyi [facility] Diastolic blood pressure 54 mm[Hg] Normal (applies to non-numeric results) 54 mm[Hg] [facility] Systolic blood pressure 117 mm[Hg] Normal (applies t o non-numeric results) 117 mm[Hg] [facility] Deprecated Oxygen saturation in Capillary blood by Oximetry 96 % Normal (applies to non-numeric results) 96 % [facility] Heart rate 83 min Normal (applies to non-numeric resul ts) 83 min [facility] Respiratory rate 18 min Normal (applies to non-numeric results) 18 min [facility] Body temperature 97.8 [degF] 97.8 [degF] eCW1 ( [facility]) Body weight 199.4 [lb_av] 199.4 [lb_av] eCW1 ([facility]) Body height 71 [in_i] 71 [in_i] eCW1 ([facility]) Body mass index (BMI) [Ratio] 27.81 kg/m2 27.81 kg/m2 eCW1 ([facility]) Heart rate 105 /min 105 /min eCW1 ([facility]) Respiratory rate 18 /min 18 /min eCW1 ([facility]) Systolic blood pressure 124 mm[Hg] 124 mm[Hg] e CW1 ([facility]) Diastolic blood pressure 58 mm[Hg] 58 mm[Hg] eCW1 ([facility]) Oxygen saturation in Arterial blood by Pulse oximetry 95 % 95 % [facility] ([facility] Respiratory rate 18 /min 18 /min [facility] ( [facility]) Body height 71 [in_i] 71 [in_i] [facility] ([facility] 5'11" Body weight 198.00 [lb_av] 198.00 [lb_av] [facility] T ([facility]) Body weight 89.813 kg 89.813 kg [facility] ([facility]) Body mass index (BMI) [Ratio] 27.6 kg/m2 27.6 k g/m2 [facility] ([facility]) Systolic blood pressure 142 mm[Hg] 142 mm[Hg] [facility] ([facility]) Diastolic blood pressure 66 mm[Hg] 66 mm[Hg] [facility] ([facility]) Heart rate 105 /min 105 /min [facility] ([facility]) Body temperature 97.7 [degF] 97.7 [degF] [facility] ([facility]) Systolic blood pressure 136 mm[Hg] Normal (applies t o non-numeric results) 136 mm[Hg] [facility] Diastolic blood pressure 70 mm[Hg] Normal (applies to non-numeric results) 70 mm[Hg] [facility] Heart rate 90 min Normal (applies to non-numeric resul ts) 90 min [facility] Deprecated Oxygen saturation in Capillary blood by Oximetry 98 % Normal (applies to non-numeric results) 98 % [facility] Respiratory rate 16 min Normal (applies to non-numeric results) 16 min [facility] Systolic blood pressure 136 mm[Hg] 136 mm[Hg] [facility] ([facility]) Diastolic blood pressure 70 mm[Hg] 70 mm[Hg] [facility] ([facility]) Heart rate 90 /min 90 /min [facility] ([facility]) Respiratory rate 16 /min 16 /min [facility] ( [facility]) Oxygen saturation in Arterial blood by Pulse oximetry 98 % 98 % [facility] ([facility]) Body mass index (BMI) [Ratio] 28.0 kg/m2 No rmal (applies to non-numeric results) 28.0 kg/m2 [facility] Body height 179.2224 cm Normal (applies to non-numeric res ults) 179.2224 cm [facility] Body temperature 36.4 ifeanyi Normal (applies to non-numeric results) 36.4 ifeanyi [facility] Body weight Measured 201 [lb_av] Normal (applies to n on-numeric results) 201 [lb_av] [facility] Body height 71 [in_i] 71 [in_i] [facility] ([facility]) 5'11" Body weight 210.00 [lb_av] 210.00 [lb_av] [facility] T ([facility]) Body mass index (BMI) [Ratio] 29.3 kg/m2 29.3 k g/m2 [facility] ([facility]) Body weight 95.256 kg 95.256 kg [facility] ([facility]) Heart rate 109 /min 109 /min [facility] ([facility] Systolic blood pressure 128 mm[Hg] 128 mm[Hg] M [facility] ([facility]) Diastolic blood pressure 70 mm[Hg] 70 mm[Hg] [facility] ([facility]) Body weight 223.2 [lb_av] 223.2 [lb_av] eCW1 ([facility]) Body height 71 [in_i] 71 [in_i] eCW1 ([facility]) Body mass index (BMI) [Ratio] 31.13 kg/m2 31.13 kg/m2 eCW1 ([facility]) Heart rate 116 /min 116 /min eCW1 ([facility]) Respiratory rate 18 /min 18 /min eCW1 ([facility]) Body temperature 97.8 [degF] 97.8 [degF] eCW1 ( [facility]) Systolic blood pressure 104 mm[Hg] 104 mm[Hg] e CW1 ([facility]) Diastolic blood pressure 54 mm[Hg] 54 mm[Hg] eCW1 ([facility]) Body height 71 [in_i] 71 [in_i] [facility] 5'11" Heart rate 110 /min 110 /min [facility] ([facility] Body weight 216.00 [lb_av] 216.00 [lb_av] [facility] T ([facility]) Body weight 97.978 kg 97.978 kg [facility] ([facility] Body mass index (BMI) [Ratio] 30.1 kg/m2 30.1 k g/m2 [facility] ([facility]) Systolic blood pressure 133 mm[Hg] 133 mm[Hg] M [facility] ([facility]) Diastolic blood pressure 64 mm[Hg] 64 mm[Hg] [facility] ([facility]) Body weight 216.0 [lb_av] 216.0 [lb_av] eCW1 ([facility]) Body height 71 [in_i] 71 [in_i] eCW1 ([facility]) Body mass index (BMI) [Ratio] 30.12 kg/m2 30.12 kg/m2 eCW1 ([facility]) Heart rate 97 /min 97 /min eCW1 ([facility]) Respiratory rate 18 /min 18 /min eCW1 ([facility]) Body temperature 97.4 [degF] 97.4 [degF] eCW1 ( [facility]) Systolic blood pressure 104 mm[Hg] 104 mm[Hg] e CW1 ([facility]) Diastolic blood pressure 52 mm[Hg] 52 mm[Hg] eCW1 ([facility]) Systolic blood pressure 160 mm[Hg] Normal (applies t o non-numeric results) 160 mm[Hg] [facility] Respiratory rate 18 min Normal (applies to non-numeric results) 18 min [facility] Body temperature 36.5 ifeanyi Normal (applies to non-numeric results) 36.5 ifeanyi [facility] Diastolic blood pressure 69 mm[Hg] Normal (applies to non-numeric results) 69 mm[Hg] [facility] Heart rate 83 min Normal (applies to non-numeric resul ts) 83 min [facility] Systolic blood pressure 160 mm[Hg] 160 mm[Hg] [facility] ([facility]) Diastolic blood pressure 69 mm[Hg] 69 mm[Hg] [facility] ([facility]) Heart rate 83 /min 83 /min [facility] ([facility] Respiratory rate 18 /min 18 /min [facility] ( [facility]) Body temperature 36.5 [degF] 36.5 [degF] [facility] ([facility]) Deprecated Oxygen saturation in Capillary blood by Oximetry 99 % Normal (applies to non-numeric results) 99 % [facility] Oxygen saturation in Arterial blood by Pulse oximetry 99 % 99 % [facility] ([facility] Body height 179.2224 cm Normal (applies to non-numeric res ults) 179.2224 cm [facility] Body weight Measured 89.9 kg Normal (applies to non-num gayatri results) 89.9 kg [facility] Body mass index (BMI) [Ratio] 27.64 kg/m2 No rmal (applies to non-numeric results) 27.64 kg/m2 [facility] Body weight 209.2 [lb_av] 209.2 [lb_av] eCW1 ([facility]) Body height 71 [in_i] 71 [in_i] eCW1 ([facility]) Body mass index (BMI) [Ratio] 29.17 kg/m2 29.17 kg/m2 eCW1 ([facility]) Heart rate 94 /min 94 /min eCW1 ([facility]) Respiratory rate 18 /min 18 /min eCW1 ([facility]) Body temperature 97.7 [degF] 97.7 [degF] eCW1 ( [facility]) Systolic blood pressure 124 mm[Hg] 124 mm[Hg] e CW1 ([facility]) Diastolic blood pressure 64 mm[Hg] 64 mm[Hg] eCW1 ([facility]) Body weight 92.081 kg 92.081 kg [facility] ([facility] Body mass index (BMI) [Ratio] 28.3 kg/m2 28.3 k g/m2 [facility] ([facility]) Systolic blood pressure 149 mm[Hg] 149 mm[Hg] M [facility] ([facility]) Diastolic blood pressure 75 mm[Hg] 75 mm[Hg] [facility] ([facility]) Heart rate 86 /min 86 /min [facility] ([facility] Body height 71 [in_i] 71 [in_i] [facility] ([facility] 5'11" Body weight 203.00 [lb_av] 203.00 [lb_av] [facility] T ([facility] Body height 71 [in_i] 71 [in_i] [facility] ([facility] 5'11" Body weight 240.00 [lb_av] 240.00 [lb_av] [facility] T ([facility] Body weight 108.864 kg 108.864 kg [facility] ([facility] Body mass index (BMI) [Ratio] 33.5 kg/m2 33.5 k g/m2 [facility] ([facility]) Body temperature 97.6 [degF] 97.6 [degF] [facility] ([facility] Body weight 211 [lb_av] 211 [lb_av] eCW1 ([facility]) Body height 71 [in_i] 71 [in_i] eCW1 ([facility]) Body mass index (BMI) [Ratio] 29.43 kg/m2 29.43 kg/m2 eCW1 ([facility]) Systolic blood pressure 146 mm[Hg] 146 mm[Hg] e CW1 ([facility]) Diastolic blood pressure 82 mm[Hg] 82 mm[Hg] eCW1 ([facility]) Body weight 211 [lb_av] 211 [lb_av] eCW1 ([facility]) Body height 71 [in_i] 71 [in_i] eCW1 ([facility]) Heart rate 92 /min 92 /min eCW1 ([facility]) Body mass index (BMI) [Ratio] 29.43 kg/m2 29.43 kg/m2 eCW1 ([facility]) Body temperature 97.3 [degF] 97.3 [degF] eCW1 ( [facility]) Systolic blood pressure 142 mm[Hg] 142 mm[Hg] e CW1 ([facility]) Diastolic blood pressure 78 mm[Hg] 78 mm[Hg] eCW1 ([facility]) Respiratory rate 18 /min 18 /min eCW1 ([facility]) Body height 71 [in_i] 71 [in_i] [facility] 5'11" Body weight 240.00 [lb_av] 240.00 [lb_av] [facility] T ([facility] Body weight 108.864 kg 108.864 kg [facility] ([facility] Body mass index (BMI) [Ratio] 33.5 kg/m2 33.5 k g/m2 [facility] ([facility]) Systolic blood pressure 155 mm[Hg] 155 mm[Hg] M [facility] ([facility]) Diastolic blood pressure 67 mm[Hg] 67 mm[Hg] [facility] ([facility] Heart rate 101 /min 101 /min [facility] ([facility]) Heart rate 90 /min 90 /min [facility] ([facility] Body height 71 [in_i] 71 [in_i] [facility] ([facility] 5'11" Body weight 240.00 [lb_av] 240.00 [lb_av] [facility] T ([facility] Body weight 108.864 kg 108.864 kg [facility] ([facility]) Body mass index (BMI) [Ratio] 33.5 kg/m2 33.5 k g/m2 [facility] ([facility] Systolic blood pressure 159 mm[Hg] 159 mm[Hg] [facility] ([facility]) Diastolic blood pressure 70 mm[Hg] 70 mm[Hg] [facility] ([facility] Body weight 108.864 kg 108.864 kg [facility] ([facility]) Body mass index (BMI) [Ratio] 33.5 kg/m2 33.5 k g/m2 [facility] ([facility] Body temperature 97.9 [degF] 97.9 [degF] [facility] ([facility]) Heart rate 100 /min 100 /min [facility] ([facility] Systolic blood pressure 146 mm[Hg] 146 mm[Hg] M [facility] ([facility]) Diastolic blood pressure 72 mm[Hg] 72 mm[Hg] [facility] ([facility] Body height 71 [in_i] 71 [in_i] [facility] ([facility]) 5'11" Body weight 240.00 [lb_av] 240.00 [lb_av] [facility] T ([facility] ID Date Data Source [id number] 04/09/2021 08:44:[address] [facility] Name Value Range Interpretation Code Description Data Source(s) WEIGHT RECORDED 175 lb 175 lb [facility] Body height Measured 71 in 71 in [facility] Patient Treatment Plan of Care Planned Activity Planned Date Details Description Data Source (s) Abdominal Binder/Elastic 3XL - 03/05/2021 12:00:00 AM EDT eCW1 ([facility]) Abdominal Binder/Elastic 3XL - 03/05/2021 12:00:00 AM EDT eCW1 ([facility]) Abdominal Binder/Elastic 3XL - 03/05/2021 12:00:00 AM EDT eCW1 ([facility]) Abdominal Binder/Elastic 3XL - 03/05/2021 12:00:00 AM EDT eCW1 ([facility]) Abdominal Binder/Elastic 3XL - 03/05/2021 12:00:00 AM EDT eCW1 ([facility]) HydrOXYzine HCl 10 MG 01/08/2021 01:00:00 AM EDT NETSMART ([facility]) Hydroxyzine Hydrochloride 10 MG Oral Tablet 01/08/2021 12:00:00 AM EDT eCW1 ([facility]) Hydroxyzine Hydrochloride 10 MG Oral Tablet 01/08/2021 12:00:00 AM EDT eCW1 ([facility]) Hydroxyzine Hydrochloride 10 MG Oral Tablet 01/08/2021 12:00:00 AM EDT eCW1 ([facility]) Hydroxyzine Hydrochloride 10 MG Oral Tablet 01/08/2021 12:00:00 AM EDT eCW1 ([facility]) Hydroxyzine Hydrochloride 10 MG Oral Tablet 01/08/2021 12:00:00 AM EDT eCW1 ([facility]) Hydroxyzine Hydrochloride 10 MG Oral Tablet 01/08/2021 12:00:00 AM EDT eCW1 ([facility]) Hydroxyzine Hydrochloride 10 MG Oral Tablet 01/08/2021 12:00:00 AM EDT eCW1 ([facility]) Hydroxyzine Hydrochloride 10 MG Oral Tablet 01/08/2021 12:00:00 AM EDT eCW1 ([facility]) Hydroxyzine Hydrochloride 10 MG Oral Tablet 01/08/2021 12:00:00 AM EDT eCW1 ([facility]) Hydroxyzine Hydrochloride 10 MG Oral Tablet 01/08/2021 12:00:00 AM EDT eCW1 ([facility]) Hydroxyzine Hydrochloride 10 MG Oral Tablet 01/08/2021 12:00:00 AM EDT eCW1 ([facility]) Hydroxyzine Hydrochloride 10 MG Oral Tablet 01/08/2021 12:00:00 AM EDT eCW1 ([facility]) Hydroxyzine Hydrochloride 10 MG Oral Tablet 01/08/2021 12:00:00 AM EDT eCW1 ([facility]) Hydroxyzine Hydrochloride 10 MG Oral Tablet 01/08/2021 12:00:00 AM EDT eCW1 ([facility]) Losartan Potassium 100 MG 01/07/2021 01:00:00 AM EDT NETSMART ([facility]) Spironolactone 25 MG 01/07/2021 01:00:00 [facility] Losartan Potassium 50 MG Oral Tablet 01/01/2021 12:00:00 AM EDT eCW1 ([facility]) Spironolactone 25 MG Oral Tablet 01/01/2021 12:00:00 AM EDT eCW1 ([facility]) Spironolactone 25 MG Oral Tablet 01/01/2021 12:00:00 AM EDT eCW1 ([facility]) Spironolactone 25 MG Oral Tablet 01/01/2021 12:00:00 AM EDT eCW1 ([facility]) Spironolactone 25 MG Oral Tablet 01/01/2021 12:00:00 AM EDT eCW1 ([facility]) Losartan Potassium 100 MG Oral Tablet 01/01/2021 12:00:00 AM EDT eCW1 ([facility]) Spironolactone 25 MG Oral Tablet 01/01/2021 12:00:00 AM EDT eCW1 ([facility]) Losartan Potassium 100 MG Oral Tablet 01/01/2021 12:00:00 AM EDT eCW1 ([facility]) Spironolactone 25 MG Oral Tablet 01/01/2021 12:00:00 AM EDT eCW1 ([facility]) Losartan Potassium 100 MG Oral Tablet 01/01/2021 12:00:00 AM EDT eCW1 ([facility]) Spironolactone 25 MG Oral Tablet 01/01/2021 12:00:00 AM EDT eCW1 ([facility]) Spironolactone 25 MG Oral Tablet 01/01/2021 12:00:00 AM EDT eCW1 ([facility]) Losartan Potassium 100 MG Oral Tablet 01/01/2021 12:00:00 AM EDT eCW1 ([facility]) Spironolactone 25 MG Oral Tablet 01/01/2021 12:00:00 AM EDT eCW1 ([facility]) Losartan Potassium 100 MG Oral Tablet 01/01/2021 12:00:00 AM EDT eCW1 ([facility]) Spironolactone 25 MG Oral Tablet 01/01/2021 12:00:00 AM EDT eCW1 ([facility]) Losartan Potassium 100 MG Oral Tablet 01/01/2021 12:00:00 AM EDT eCW1 ([facility]) Spironolactone 25 MG Oral Tablet 01/01/2021 12:00:00 AM EDT eCW1 ([facility]) Losartan Potassium 100 MG Oral Tablet 01/01/2021 12:00:00 AM EDT eCW1 ([facility]) Spironolactone 25 MG Oral Tablet 01/01/2021 12:00:00 AM EDT eCW1 ([facility]) Losartan Potassium 100 MG Oral Tablet 01/01/2021 12:00:00 AM EDT eCW1 ([facility]) Spironolactone 25 MG Oral Tablet 01/01/2021 12:00:00 AM EDT eCW1 ([facility]) Spironolactone 25 MG Oral Tablet 01/01/2021 12:00:00 AM EDT eCW1 ([facility]) Losartan Potassium 100 MG Oral Tablet 01/01/2021 12:00:00 AM EDT eCW1 ([facility]) Potassium Chloride 12/31/2020 01:00:00 AM EDT NETSMART ([facility]) Colace 100 MG 12/31/2020 01:00:00 AM EDT NETSMART ([facility]) Lasix 20 MG 12/24/2020 01:00:00 AM EDT N ETSMART ([facility]) Furosemide 40 MG Oral Tablet [Lasix] 12/24/2020 12:00:00 AM EDT eCW1 ([facility]) Furosemide 40 MG Oral Tablet [Lasix] 12/24/2020 12:00:00 AM EDT eCW1 ([facility]) Furosemide 40 MG Oral Tablet [Lasix] 12/24/2020 12:00:00 AM EDT eCW1 ([facility]) Furosemide 40 MG Oral Tablet [Lasix] 12/24/2020 12:00:00 AM EDT eCW1 ([facility]) Furosemide 40 MG Oral Tablet [Lasix] 12/24/2020 12:00:00 AM EDT eCW1 ([facility]) Furosemide 20 MG Oral Tablet [Lasix] 12/24/2020 12:00:00 AM EDT eCW1 ([facility]) Furosemide 20 MG Oral Tablet [Lasix] 12/24/2020 12:00:00 AM EDT eCW1 ([facility]) Furosemide 20 MG Oral Tablet [Lasix] 12/24/2020 12:00:00 AM EDT eCW1 ([facility]) Furosemide 20 MG Oral Tablet [Lasix] 12/24/2020 12:00:00 AM EDT eCW1 ([facility]) Furosemide 40 MG Oral Tablet [Lasix] 12/24/2020 12:00:00 AM EDT eCW1 ([facility]) Furosemide 20 MG Oral Tablet [Lasix] 12/24/2020 12:00:00 AM EDT eCW1 ([facility]) Furosemide 20 MG Oral Tablet [Lasix] 12/24/2020 12:00:00 AM EDT eCW1 ([facility]) Furosemide 20 MG Oral Tablet [Lasix] 12/24/2020 12:00:00 AM EDT eCW1 ([facility]) Furosemide 20 MG Oral Tablet [Lasix] 12/24/2020 12:00:00 AM EDT eCW1 ([facility]) Furosemide 20 MG Oral Tablet [Lasix] 12/24/2020 12:00:00 AM EDT eCW1 ([facility]) Furosemide 20 MG Oral Tablet [Lasix] 12/24/2020 12:00:00 AM EDT eCW1 ([facility]) Potassium Chloride CR 15 MEQ 12/24/2020 12:00:00 AM EDT eCW1 ([facility]) Furosemide 20 MG Oral Tablet [Lasix] 12/24/2020 12:00:00 AM EDT eCW1 ([facility]) Potassium Chloride CR 15 MEQ 12/24/2020 12:00:00 AM EDT eCW1 ([facility]) Ferrous Sulfate 325 (65 Fe) MG 11/30/2020 01:00:00 AM EDT NETSMART ([facility]) Melatonin 10 MG 11/30/2020 01:00:00 AM EDT NETSMART ([facility]) MetFORMIN HCl ER (MOD) 500 MG 11/30/2020 01:00:00 AM EDT NETSMART ([facility]) Lidocaine Pain Relieving 4 % 11/30/2020 01:00:00 AM EDT NETSMART ([facility]) Losartan Potassium-HCTZ 100-12.5 MG 11/24/2020 01:00:00 AM EDT NETSMART ([facility]) MetFORMIN HCl 500 MG 11/24/2020 01:00:00 AM EDT NETSMART ([facility]) Colace 100 MG 11/24/2020 01:00:00 AM EDT NETSMART ([facility]) Ferrous Sulfate 324 MG 11/24/2020 01:00:00 AM EDT NETSMART ([facility]) Ciprofloxacin HCl 750 MG 11/24/2020 01:00:00 AM EDT NETSMART ([facility]) Lancets 28 G 11/24/2020 01:00:00 AM EDT N ETSMART ([facility]) FreeStyle [place] Lite w/Device 11/24/2020 01:00:00 AM EDT NETSMART ([facility]) Tylenol Extra Strength 500 MG 11/24/2020 01:00:00 AM EDT [place] ([facility]) Tylenol PM 11/24/2020 01:00:00 AM EDT [place] ([facility])
[2021-04-13] MEDS: SPIRONOLACTONE 25 MG TAB PO SCH (20:49)
[2021-04-13] MEDS ORDERED: MONTELUKAST 10 MG TAB PO SCH (21:00)
[2021-04-13] MEDS ORDERED: HumaLOG INSULIN (NovoLOG) PER UNIT SC SCH (21:00)
[2021-04-13] MEDS: hydrOXYzine 10 MG TAB PO PRN (21:11)
[2021-04-14 00:26] VITALS: BP 130/63
[2021-04-14 01:16] VITALS: BP 133/63
[2021-04-14] MEDS: hydrOXYzine 10 MG TAB PO PRN ×2 (01:23→06:21)
[2021-04-14 02:18] VITALS: BP 125/60
[2021-04-14 06:00] VITALS: BP 115/58
[2021-04-14 06:21] LABS: HEMATOCRIT 24.8 % (42.0-52.0); HEMOGLOBIN 8.3 g/dl (13.5-17.5); MEAN CORPUSCULAR HEMOGLOBIN 27.6 pg (27.0-33.0); MEAN CORPUSCULAR HGB CONC 33.5 g/dl (32.0-36.5); MEAN CORPUSCULAR VOLUME 82.4 fl (80.0-96.0); PLATELET COUNT, AUTOMATED 149 10^3/uL (150-450); RED BLOOD COUNT 3.01 10^6/uL (4.30-6.10); WHITE BLOOD COUNT 5.3 10^3/uL (4.0-10.0)
[2021-04-14 06:40] LABS: ALBUMIN 2.1 GM/DL (3.2-5.2); ALT/SGPT 82 U/L (12-78); BILIRUBIN,TOTAL 0.8 MG/DL (0.2-1.0); BLOOD UREA NITROGEN 28 MG/DL (7-18); CALCIUM LEVEL 9.5 MG/DL (8.8-10.2); CARBON DIOXIDE LEVEL 21 MEQ/L (21-32); CHLORIDE LEVEL 110 MEQ/L (98-107); CREATININE FOR GFR 1.11 MG/DL (0.70-1.30); GLOMERULAR FILTRATION RATE > 60.0 (>42); GLUCOSE, FASTING 126 MG/DL (70-100); POTASSIUM SERUM 4.8 MEQ/L (3.5-5.1); SODIUM LEVEL 136 MEQ/L (136-145); TOTAL PROTEIN 6.4 GM/DL (6.4-8.2)
[2021-04-14] MEDS: HumaLOG INSULIN (NovoLOG) PER UNIT SC SCH ×2 (07:30→10:29)
--- NOTE | 2021-04-14 07:49 | CR ---
CONSULTATION DATE: 04/13/2021 REASON FOR CONSULTATION: Bleeding urostomy stoma. HISTORY OF PRESENT ILLNESS: The patient is a pleasant, 80-year-old man with multiple medical issues. 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 He has cirrhosis with some ascites and has recently been diagnosed with hepatocellular carcinoma. He has had several episodes of significant bleeding from his stoma. A CT scan from January of this year showed large vessels at the stoma with clearcut evidence for a portosystemic shunt through vessels leading to the stoma. He has on prior occasions had several sutures placed in the stoma or had cautery with silver nitrate. He presented today to the emergency department with significant bleeding into his stoma bag. In the emergency department, he was found to have a hemoglobin and hematocrit of 7 and 22. He was therefore admitted by Dr. Hernandes for transfusion and I was asked to see him regarding his bleeding. ALLERGIES: None. MEDICATIONS: Noted in the medical record. PAST MEDICAL HISTORY: Significant for his history of cirrhosis and hepatocellular carcinoma. He has had bladder and prostate cancer, type 2 diabetes. PAST SURGICAL HISTORY: Tonsils, prostate biopsy, several colonoscopies, various cystoscopies, and ultimately what sounds like a cystoprostatectomy with creation of an ileal conduit. REVIEW OF SYSTEMS: As noted by the hospitalist's physical exam reveals a somewhat pale appearing elderly gentleman lying quietly in the hospital bed. He is alert and oriented. Abdomen is soft. There is a urostomy in the right lower quadrant with appliance in place. The patient reports that the nurse had just emptied some blood and currently just has some very lightly pink urine within the bag. However, I observed that as he coughed, there was some bleeding noted from the superior edge approximately of the stoma. IMPRESSION: Bleeding from his urostomy stoma associated with known abnormal portosystemic vessels. PLAN: Patient was counseled for inspection and possible suture of abnormal vessels at the edge of the stoma. He consented for this procedure. His stoma appliance was removed. He was asked to cough and there was immediate blood expressed from the edge along the top of the stoma at about the 10:30 or 11 o'clock position. Some 1% Xylocaine was infiltrated in the skin around the top edge of the stoma. Inspection suggested the presence of some abnormal vessels in the skin and subcutaneous tissues. I placed three [id number] sutures of 3-0 Vicryl along the edge of the stoma catching the edge of the mucosa and the skin at the area of the previously noted bleeding and where the abnormal prominence of the vessels appeared greatest. These covered the area from approximately 10 o'clock to 1 o'clock to 2 o'clock along the top edge of the stoma. There was no further bleeding noted. The patient was asked to cough and again there was no significant bleeding resulting. He continued to put out urine from the stoma. A new appliance was placed. The patient tolerated the procedure well. Hopefully this will control the bleeding for some time though given the large vessels noted on his CT scan, I think this is likely to recur in the future.
[2021-04-14 08:00] VITALS: BP 123/58
[2021-04-14] MEDS: SPIRONOLACTONE 25 MG TAB PO SCH (08:17)
[2021-04-14] MEDS ORDERED: LOSARTAN 25 MG TAB PO SCH (09:00)
[2021-04-14] MEDS ORDERED: FUROSEMIDE 40 MG TAB PO SCH (09:00)
[2021-04-14] MEDS ORDERED: MIRALAX *UNIT DOSE* 17GM PACKET PO SCH (12:00)
[2021-04-14 12:48] LABS: HEMATOCRIT 26.2 % (42.0-52.0); HEMOGLOBIN 8.6 g/dl (13.5-17.5)
[2021-04-14 14:00] VITALS: BP 131/61
--- NOTE | 2021-04-14 15:53 | IPN ---
PROGRESS NOTE DATE: 04/14/2021 HISTORY: Patient was admitted by the hospitalist yesterday with bleeding from his urostomy stoma. He has been noted previously to have abnormal blood vessels associated with an abnormal portosystemic shunt at the site of his stoma. I placed several Vicryl sutures in the area of bleeding last evening. Today, the patient has some very lightly pink urine in his bag and, according to nursing, has not had any significant blood since the sutures were placed. He did receive 2 units of packed cells yesterday. Vital signs show that he has been afebrile over the past 24 hours, with a pulse in the 80s to 100 and a good blood pressure. Room air oxygenation is good. Intake and output show that yesterday he had 860 recorded in with a good urine output. He has had excellent urine output today as well. PHYSICAL EXAMINATION: GENERAL: Shows that the patient is alert and oriented. He denies any lightheadedness or abdominal pain. Examination shows that his stoma appears healthy. It is making good urine and he has some very lightly pink-tinged urine that is clear in his bag. LABORATORY STUDIES: This morning showed a hemoglobin of 8, hematocrit 25 with a platelet count of 149,000. This is slightly improved from 7 and 22 yesterday, prior to his transfusions. His chemistries today show sodium 136, potassium 4.8, chloride 119, CO2 of 21, BUN of 28, creatinine 1.1 and a glucose of 126. IMPRESSION: Patient appears to be doing well, with cessation of any bleeding from his stoma. He tolerated his blood transfusion and his hemoglobin and hematocrit both increased slightly. RECOMMENDATIONS: I believe the patient can be discharged whenever the hospitalist feels that he is adequately transfused. His Vicryl sutures will break down over the next few weeks to a month and we will then see if he has any evidence for recurrence of bleeding. Unfortunately, I think he is likely to have a recurrence of bleeding, given the abnormal vessels in this area.
--- NOTE | 2021-04-14 16:10 | DS.PDOC ---
Discharge Summary General Date of Admission Apr 13, 2021 at 14:37 Date of Discharge 04/14/21 Discharge Summary PROCEDURES PERFORMED DURING STAY: [None]. ADMITTING DIAGNOSES: Acute on chronic blood loss anemia Cirrhosis Bladder tumor Stoma bleed Diabetes mellitus DISCHARGE DIAGNOSES: Acute on chronic blood loss anemia Cirrhosis Bladder tumor Stoma bleed Diabetes mellitus COMPLICATIONS/CHIEF COMPLAINT: Acute On Chronic Blood Loss Anemia. HISTORY OF PRESENT ILLNESS: Patient is 80 years old male with past medical history of bladder cancer, liver cancer, cirrhosis, prostate cancer, type 2 diabetes presented to hospital with generalized weakness and shortness of breath. Patient stated that he noticed bleeding from his ileocecal stoma. Blair clark stated that after removal of bladder cancer ileocecal stoma was placed and patient has been having intermittent bleeding. Of note, patient has recently diagnosed with liver cancer and last week he had mapping procedure in [facility]. In ER patient was found to have no leukocytosis, hemoglobin 7.2, AST92, ALT 87. Lipase of 648. Chest x-ray negative for acute pulmonary disease HOSPITAL COURSE: During the hospital stay the following issue addressed (1) Acute on chronic blood loss anemia Secondary to acute bleeding from stoma. Dr. Carpenter evaluated patient and he placed stitches. Bleeding was stopped. Patient received 2 units of blood. Hemoglobin stable (2) Cirrhosis Follow-up with GI team (3) Bladder tumor Follow-up with oncologist/GI team (4) Stoma bleed Appreciate/agree with surgical consult (5) Diabetes mellitus Insulin sliding scale Diabetes diet DISCHARGE MEDICATIONS: Please see below. ALLERGIES: Please see below. PHYSICAL EXAMINATION ON DISCHARGE: Objective: GENERAL APPEARANCE: NAD HEENT: no scleral icterus, no JVD, EOMI CARDIOVASCULAR: S1S2 LUNGS: Diminished lung sounds bilaterally ABDOMEN: soft & not tender w palpation, urostomy in place MUSCULOSKELETAL: no cyanosis, no swelling INTEGUMENT: no generalized pallor NEUROLOGICAL: cranial nerve function from 2-12 intact, follows commands, speech not dysarthric LABORATORY DATA: Please see below. PROGNOSIS: Fair ACTIVITY: [As tolerated]. DIET: Cardiac DISCHARGE PLAN: Home ITEMS TO FOLLOWUP ON ON OUTPATIENT: Follow-up with GI team, oncologist and PCP DISCHARGE CONDITION: [Stable]. TIME SPENT ON DISCHARGE: 40minutes. Vital Signs/I&Os Vital Signs Date Time Temp Pulse Resp B/P (MAP) Pulse Ox O2 Delivery O2 Flow Rate FiO2 11/14/21 14:00 97.7 86 20 131/61 (84) 97 Room Air I&O- Last 24 Hours up to 6 AM 04/14/21 06:00 Intake Total 2021 ml Output Total 1325 ml Balance 696 ml Laboratory Data Labs 24H Laboratory Tests 2 04/13/21 20:12: Bedside Glucose (Misc Panel) 200H 04/14/21 05:33: Nucleated Red Blood Cells % (auto) 0.0, Anion Gap 5L, Glomerular Filtration Rate > 60.0, Calcium Level 9.5, Magnesium Level 2.0, Total Bilirubin 0.8#, Aspartate Amino Transf (AST/SGOT) 88H, Alanine Aminotransferase (ALT/SGPT) 82H, Alkaline Phosphatase 164H, Total Protein 6.4, Albumin 2.1L, Albumin/Globulin Ratio 0.5 CBC/BMP Laboratory Tests 04/14/21 05:33 04/14/21 12:35 FSBS Laboratory Tests Test 04/13/21 20:12 Range/Units Bedside Glucose (Misc Panel) 200 83-110 MG/DL Discharge Medications Scheduled Ferrous Sulfate (Iron) 325 Mg Tablet, 325 MG PO 3XW, (Reported) MON, WED, FRI Furosemide (Furosemide) 40 Mg Tablet, 40 MG PO DAILY, (Reported) Losartan Potassium (Losartan Potassium) 50 Mg Tablet, 25 MG PO DAILY, (Reported) Metformin HCl (Metformin HCl ER) 500 Mg Tab, 1,000 MG PO QPM, (Reported) Montelukast Sodium (Montelukast Sodium) 10 Mg Tablet, 10 MG PO QHS, (Reported) Polyethylene Glycol 3350 (Polyethylene Glycol 3350) 17 Gm Powd.pack, 17 GM PO DAILY, (Reported) @NOON Spironolactone (Spironolactone) 25 Mg Tablet, 25 MG PO BID, (Reported) Scheduled PRN Docusate Sodium (Colace) 100 Mg Capsule, 100 MG PO BID PRN for CONSTIPATION, (Reported) Hydroxyzine HCl (Hydroxyzine HCl) 10 Mg Tablet, 10 MG PO Q4H PRN for ITCHING, (Reported) Allergies Coded Allergies: No Known Allergies (Unverified , 08/20/19) LUCILA GARCIA DO Apr 14, 2021 16:10
[2021-04-15] MEDS ORDERED: FERROUS SULFATE 325MG TAB PO SCH (09:00)
== END 2021-04-14 16:30 | disposition home or self-care (01) ==
LOC: M ED 14:36 → M ED INP 14:37 → M MSPAV 20:00
PROVIDERS: ADMIT Internal Medicine; ATTEND Internal Medicine
DX: D62 Acute posthemorrhagic anemia (principal); D50.0 Iron deficiency anemia secondary to blood loss (chronic); N99.530 Hemorrhage of continent stoma of urinary tract; K74.60 Unspecified cirrhosis of liver; D41.4 Neoplasm of uncertain behavior of bladder; E11.9 Type 2 diabetes mellitus without complications; D69.6 Thrombocytopenia, unspecified; G47.00 Insomnia, unspecified; M17.10 Unilateral primary osteoarthritis, unspecified knee; I10 Essential (primary) hypertension; K75.81 Nonalcoholic steatohepatitis (NASH); K62.7 Radiation proctitis; Z85.05 Personal history of malignant neoplasm of liver; Z85.46 Personal history of malignant neoplasm of prostate; R53.1 Weakness; R06.02 Shortness of breath; Z79.899 Other long term (current) drug therapy; Z79.84 Long term (current) use of oral hypoglycemic drugs
CPT/HCPCS: 12001; 36415; 36430; 71045; 80047; 80053; 80076; 82550; 82553; 83690; 83735; 84484; 85014; 85018; 85025; 85027; 85610; 85730; 86850; 86900; 86901; 86920; 87631; 93005; 93041; 97116; 97161; 99285; G0378; P9016

== ENCOUNTER 2021-04-19 14:51 | Observation (INO) | payer MEDICARE, BC, OTHER ==
[2021-04-19] VITALS (8 sets, daily range): BP systolic 120–156; BP diastolic 58–67
[~2021-04-19] VITALS: Ht 180.3 cm; Wt 78.5 kg
[~2021-04-19 14:51] MED LIST changes: +FURO40TA2 PO; +LOSA50TA88 PO; +MONT10TA10 PO; +POLY1POW38 PO
[2021-04-19] MEDS ORDERED: NS 1,000 ML IV ONE (15:20)
[2021-04-19 15:45] LABS: BASO # 0.1 10^3/uL (0.0-0.2); BASO % 1.8 % (0.0-1.0); EOS # 0.5 10^3/uL (0.0-0.5); EOS % 10.5 % (0.0-3.0); HEMATOCRIT 23.6 % (42.0-52.0); HEMOGLOBIN 7.6 g/dl (13.5-17.5); LYMPH # 0.3 10^3/uL (1.5-5.0); LYMPH % 6.4 % (24.0-44.0); MEAN CORPUSCULAR HEMOGLOBIN 27.2 pg (27.0-33.0); MEAN CORPUSCULAR HGB CONC 32.2 g/dl (32.0-36.5); MEAN CORPUSCULAR VOLUME 84.6 fl (80.0-96.0); MONO # 0.6 10^3/uL (0.0-0.8); MONO % 11.9 % (2.0-8.0); NEUTROPHILS # 3.5 10^3/uL (1.5-8.5); PLATELET COUNT, AUTOMATED 188 10^3/uL (150-450); RED BLOOD COUNT 2.79 10^6/uL (4.30-6.10)
[2021-04-19 16:06] LABS: CALCIUM LEVEL 10.2 MG/DL (8.8-10.2); CREATININE FOR GFR 1.58 MG/DL (0.70-1.30); GLOMERULAR FILTRATION RATE 45.3 (>42); POTASSIUM SERUM 5.1 MEQ/L (3.5-5.1)
[2021-04-19 16:17] LABS: INR 1.14
[2021-04-19 16:18] LABS: PARTIAL THROMBOPLASTIN TIME 37.4 SECONDS (25.9-37.0)
--- OUTSIDE RECORDS SUMMARY | 2021-04-19 16:25 | CCD ---
Author Author [facility] Organization [facility] Address Unknown Phone Unavailable Care Team Providers Care Director Sanitation Bureau Name Role Phone Bhutta, Damion Unavailable Bhutta, Damion Unavailable Bhutta, Damion Unavailable Bhutta, Damion Unavailable Bhutta, Damion Unavailable Bhutta, Damion Unavailable Bhutta, Damion Unavailable Bhutta, Damion Unavailable Amee PEREZ MD Unavailable Unavailable Amee [...] Unavailable Unavailable Amee PEREZ MD Unavailable Unavailable Bessie VARGAS Unavailable Unavailable Amee HDZ Unavailable Unavailable Amee HDZ Unavailable Unavailable Amee HDZ Unavailable Unavailable Amee HDZ Unavailable Unavailable ANDREINA, M DENVER PA Unavailable [...] Unavailable ANDREINA, M DENVER PA Unavailable Unavailable KADE WARD Unavailable Unavailable Eulalia Muñiz MD Unavailable [...] Unavailable Unavailable Eulalia Muñiz MD Unavailable Unavailable ALEKSIC, ILIJA MD Unavailable [...] Unavailable Unavailable ALEKSIC, ILIJA MD Unavailable Unavailable Pete, Jermaine DO Unavailable [...] Unavailable Pete, Jermaine DO Unavailable Unavailable Pete, Jermiane DO Unavailable Unavailable Pete, Jermaine DO Unavailable [...] Unavailable Unavailable Pete, Jermaine DO Unavailable Unavailable Peet, Jermaine DO Unavailable Unavailable Pete, Jermaine DO [...] Unavailable Unavailable Amee CASTANEDA MD Unavailable Unavailable TABATHAISSOOAmee MD Unavailable Unavailable TABATHAISSOOAmee MD Unavailable Unavailable MADISSOOAmee MD Unavailable Unavailable DENISEOOAmee MD Unavailable Unavailable DENISEOOAmee MD Unavailable Unavailable TABATHAISSOOAmee MD Unavailable Unavailable MADISSOOAmee MD Unavailable Unavailable DENISEOOAmee MD Unavailable Unavailable DENISEOOAmee MD Unavailable Unavailable Amee CASTANEDA MD Unavailable Unavailable Amee CASTANEDA MD Unavailable Unavailable TABATHAISSAmee SOSA MD Unavailable Unavailable TABATHAISSOOAmee MD Unavailable Unavailable TABATHAISSAmee SOSA MD Unavailable Unavailable Amee CASTANEDA MD Unavailable [...] Unavailable Amee CASTANEDA MD Unavailable Unavailable Amee CASTNAEDA MD Unavailable Unavailable Amee CASTANEDA MD Unavailable Unavailable Amee CASTANEDA MD Unavailable Unavailable Amee CASTANEDA MD Unavailable Unavailable DENISEOOAmee MD Unavailable Unavailable MADISSAmee SOSA MD Unavailable Unavailable Amee CASTANEDA MD Unavailable Unavailable MADISSOOAmee MD Unavailable Unavailable MADARIELAOOAmee MD Unavailable Unavailable MADISSOOAmee MD Unavailable Unavailable MADARIELAOOAmee MD Unavailable Unavailable MADARIELAOOAmee MD Unavailable Unavailable MADARIELAOOAmee MD Unavailable Unavailable DENISEOOAmee MD Unavailable Unavailable MADARIELAOOAmee MD Unavailable Unavailable DENISEOOAmee MD Unavailable Unavailable MADISSOOAmee MD Unavailable Unavailable MADISSOOAmee MD Unavailable Unavailable MADISSOOAmee MD Unavailable Unavailable MADARIELAOOAmee MD Unavailable Unavailable MADISSOOAmee MD Unavailable Unavailable MADISSOOAmee MD Unavailable Unavailable MADISSOOAmee MD Unavailable Unavailable MADISSOOAmee MD Unavailable Unavailable MADARIELAOOAmee MD Unavailable Unavailable MADARIELAOOAmee MD Unavailable Unavailable DENISEOOAmee MD Unavailable Unavailable TABATHAISSOOAmee MD Unavailable Unavailable MADISSOOAmee MD Unavailable Unavailable MADISSOOAmee MD Unavailable Unavailable DENISEOOAmee MD Unavailable Unavailable [...] Unavailable Kitchen, N Po MD Unavailable Unavailable Ktichen, N Po MD Unavailable Unavailable Kitchen, N [...] Unavailable Kitchen, N Po MD Unavailable Unavailable Sai YANEZ MD Unavailable Unavailable Sai YANEZ MD Unavailable Unavailable Sai YANEZ MD Unavailable Unavailable Sai YANEZ MD Unavailable Unavailable Sai YANEZ MD Unavailable Unavailable Sai YANEZ MD Unavailable Unavailable Sai YANEZ MD Unavailable Unavailable Sai YANEZ MD Unavailable Unavailable Sai YANEZ MD Unavailable Unavailable Sai YANEZ MD Unavailable Unavailable Sai YANEZ MD Unavailable Unavailable Sai YANEZ MD Unavailable Unavailable Sai YANEZ MD Unavailable Unavailable Sai YANEZ MD Unavailable Unavailable Sai YANEZ MD Unavailable Unavailable Sai YANEZ MD Unavailable Unavailable Sai YANEZ MD Unavailable Unavailable Sai YANEZ MD Unavailable Unavailable Sai YANEZ MD Unavailable Unavailable Sai YANEZ MD Unavailable Unavailable Bessie CARLIN MD Unavailable Unavailable Bessie CARLIN MD Unavailable Unavailable Bessie CARLIN MD Unavailable Unavailable Bessie CARLIN MD Unavailable Unavailable Bessie CARLIN MD Unavailable Unavailable Bessie CARLIN MD Unavailable Unavailable HARTZHEIM, Bessie JULIAN MD Unavailable Unavailable HARTZHEIM, Bessie JULIAN MD Unavailable Unavailable HARTZHEIM, Bessie JULIAN MD Unavailable Unavailable HARTZHEIM, Bessie JULIAN MD Unavailable Unavailable HARTZHEIM, Bessie JULIAN MD Unavailable Unavailable HARTZHEIM, Bessie JULIAN MD Unavailable Unavailable HARTZHEIM, Bessie JULIAN MD Unavailable Unavailable HARTZHEIM, Bessie JULIAN MD Unavailable Unavailable HARTZHEIM, Bessie JULIAN MD Unavailable Unavailable HARTZHEIM, Bessie JULIAN MD Unavailable Unavailable HARTZHEIM, Bessie JULIAN MD Unavailable Unavailable HARTZHEIM, Bessie JULIAN MD Unavailable Unavailable HARTZHEIM, Bessie JULIAN MD Unavailable Unavailable HARTZHEIM, Bessie JULIAN MD Unavailable Unavailable HARTZHEIM, Bessie JULIAN MD Unavailable Unavailable HARTZHEIM, Bessie JULIAN MD Unavailable Unavailable HARTZHEIM, Bessie JULIAN MD Unavailable Unavailable HARTZHEIM, Bessie JULIAN MD Unavailable Unavailable HARTZHEIM, Bessie JULIAN MD Unavailable Unavailable HARTZHEIM, Bessie JULIAN MD Unavailable Unavailable HARTZHEIM, Bessie JULIAN MD Unavailable Unavailable HARTZFORTINO, Bessie JULIAN MD Unavailable Unavailable HARTZHEIM, Bessie JULIAN MD Unavailable Unavailable HARTZHEIM, Bessie JULIAN MD Unavailable Unavailable HARTZHEIM, Bessie JULIAN MD Unavailable Unavailable HARTZHEIM, Bessie JULIAN MD Unavailable Unavailable HARTZHEIM, Bessie JULIAN MD Unavailable Unavailable HARTZHEIM, Bessie JULIAN MD Unavailable Unavailable HARTZFORTINO, Bessie JULIAN MD Unavailable Unavailable HARTZFORTINO, Bessie JULIAN MD Unavailable Unavailable HARTZHEIM, Bessie JULIAN MD Unavailable Unavailable HARTZHEIM, Bessie JULIAN MD Unavailable Unavailable HARTZHEIM, Bessie JULIAN MD Unavailable Unavailable HARTZHEIM, Bessie JULIAN MD Unavailable Unavailable HARTZHEIM, Bessie JULIAN MD Unavailable Unavailable HARTZFORTINO, Bessie JULIAN MD Unavailable Unavailable HARTZHEIM, Bessie JULIAN MD Unavailable Unavailable HARTZHEIM, Bessie JULIAN MD Unavailable Unavailable HARTZHEIM, Bessie JULIAN MD Unavailable Unavailable HARTZHEIM, Bessie JULIAN MD Unavailable Unavailable HARTZHEIM, Bessie JULIAN MD Unavailable Unavailable HARTZHEIM, Bessie JULIAN MD Unavailable Unavailable HARTZHEIM, Bessie JULIAN MD Unavailable Unavailable HARTZHEIM, Bessie JULIAN MD Unavailable Unavailable HARTZHEIM, Bessie JULIAN MD Unavailable Unavailable HARTZHEIM, Bessie JULIAN MD Unavailable Unavailable HARTZHEIM, Bessie JULIAN MD Unavailable Unavailable HARTZHEIM, Bessie JULIAN MD Unavailable Unavailable HARTZHEIMBessie MD Unavailable Unavailable HARTZHEIMBessie MD Unavailable Unavailable HARTZBessie FREITAS MD Unavailable Unavailable HARTZBessie FREITAS MD Unavailable Unavailable HARTZHEIMBessie MD Unavailable Unavailable HARTZHEIM, Bessie JULIAN MD Unavailable Unavailable HARTZHEIM, Bessie JULIAN MD Unavailable Unavailable HARTZFORTINO, Bessie JULIAN MD Unavailable Unavailable Bessie CARLIN MD Unavailable Unavailable Bessie CARLIN MD Unavailable Unavailable Bessie CARLIN MD Unavailable Unavailable Bessie CARLIN MD Unavailable Unavailable SIVAUTDAMION BOYD Unavailable Unavailable ALEKSIC ILIJUAN A MD Unavailable [...] Unavailable ALEKSIC, ILIJA MD Unavailable Unavailable ALEKSIC ILIJA MD Unavailable Unavailable ALEKSIC, ILIJA MD Unavailable Unavailable ALEKSIC, ILIJA MD Unavailable Unavailable ED, TEST DEFAULT Unavailable Unavailable Sai YANEZ MD Unavailable Unavailable Sai YANEZ MD Unavailable Unavailable Sai YANEZ MD Unavailable Unavailable Sai YANEZ MD Unavailable Unavailable Sai YANEZ MD Unavailable Unavailable Sai YANEZ MD Unavailable Unavailable Sai YANEZ MD Unavailable Unavailable Sai YANEZ MD Unavailable Unavailable Sai YANEZ MD Unavailable Unavailable Sai YANEZ MD Unavailable Unavailable Sai YANEZ MD Unavailable Unavailable Sai YANEZ MD Unavailable Unavailable RENATA, P ABIOLA MANN Unavailable Unavailable RENATA, P ABIOLA MANN Unavailable Unavailable RENATA, P ABIOLA MANN Unavailable Unavailable RENATA, P ABIOLA MANN Unavailable Unavailable RENATA, P ABIOLA MANN Unavailable Unavailable RENATA, P ABIOLA MANN Unavailable Unavailable RENATA, P ABIOLA MANN Unavailable Unavailable RENATA, P ABIOLA MANN Unavailable Unavailable [place], F Tarah PA Unavailable Unavailable [place], F Tarah PA Unavailable Unavailable [place], F Tarah PA Unavailable Unavailable [place], F Tarah PA Unavailable Unavailable [place], F Tarah PA Unavailable Unavailable [place], F Tarah PA Unavailable Unavailable [place], F Tarah PA Unavailable Unavailable [place], F Tarah PA Unavailable Unavailable [place], F Tarah PA Unavailable Unavailable [place], F Tarah PA Unavailable Unavailable [place], F Tarah PA Unavailable Unavailable [place], F Tarah PA Unavailable Unavailable [place], F Tarah PA Unavailable Unavailable [place], F Tarah PA Unavailable Unavailable [place], F Tarah PA Unavailable Unavailable [place], F Tarah PA Unavailable Unavailable [place], F Tarah PA Unavailable Unavailable [place], F Tarah PA Unavailable Unavailable [place], F Tarah PA Unavailable Unavailable [place], F Tarah PA Unavailable Unavailable [place], F Tarah PA Unavailable Unavailable [place], F Tarah PA Unavailable Unavailable [place], F Tarah PA Unavailable Unavailable [place], F Tarah PA Unavailable Unavailable [place], F Tarah PA Unavailable Unavailable [place], F Tarah PA Unavailable Unavailable [place], F Tarah PA Unavailable Unavailable [place], F Tarah PA Unavailable Unavailable [place], F Tarah PA Unavailable Unavailable [place], F Tarah PA Unavailable Unavailable [place], F Tarah PA Unavailable Unavailable [place], F Tarah PA Unavailable Unavailable [place], F Tarah PA Unavailable Unavailable [place], F Tarah PA Unavailable Unavailable [place], F Tarah PA Unavailable Unavailable [place], F Tarah PA Unavailable Unavailable [place], F Tarah PA Unavailable Unavailable [place], F Tarah PA Unavailable Unavailable [place], L [...] Unavailable Unavailable Melyssa RANKIN MD Unavailable Unavailable Moni Florez Unavailable Badrinath, Moni Unavailable Badrinath, Moni Unavailable BADRINATH, MONI . Unavailable Unavailable GARETH MONTANA MD Unavailable Unavailable GARETH MONTANA MD Unavailable Unavailable GARETH MONTANA MD Unavailable Unavailable GARETH MONTANA MD Unavailable Unavailable GARETH MONTANA MD Unavailable Unavailable GARETH MONTANA MD Unavailable Unavailable GARETH MONTANA MD Unavailable Unavailable MADISSOOAmee MD Unavailable Unavailable MADISSOOAmee MD Unavailable Unavailable MADISSOOAmee MD Unavailable Unavailable MADISSOOAmee MD Unavailable Unavailable MADISSOOAmee MD Unavailable Unavailable MADISSOOAmee MD Unavailable Unavailable MADISSOOAmee MD Unavailable Unavailable MADARIELAOOAmee MD Unavailable Unavailable DENISEOOAmee MD Unavailable Unavailable MADISSOOAmee MD Unavailable Unavailable MADISSOOAmee MD Unavailable Unavailable MADISSOOAmee MD Unavailable Unavailable MADISSOOAmee MD Unavailable Unavailable MADARIELAOOAmee MD Unavailable Unavailable Amee CASTANEDA MD Unavailable Unavailable Amee CASTANEDA MD Unavailable Unavailable DENISEOOAmee MD Unavailable Unavailable MADISSOOAmee MD Unavailable Unavailable MADARIELAOOAmee MD Unavailable Unavailable Amee CASTANEDA MD Unavailable [...] MD Unavailable Unavailable MADARIELAOOAmee MD Unavailable Unavailable Amee CASTANEDA MD Unavailable Unavailable Amee CASTANEDA MD Unavailable Unavailable Amee CASTANEDA MD Unavailable Unavailable Amee CASTANEDA MD Unavailable Unavailable MADARIELAOOAmee MD Unavailable Unavailable [...] MD Unavailable Unavailable MADISSOOAmee MD Unavailable Unavailable DENISEOOAmee MD Unavailable Unavailable DENISEOOAmee MD Unavailable Unavailable TABATHAISSOOAmee MD Unavailable Unavailable MADISSOOAmee MD Unavailable Unavailable MADISSOOAmee MD Unavailable Unavailable DENISEOOAmee MD Unavailable Unavailable [...] MD Unavailable Unavailable DENISEOOAmee MD Unavailable Unavailable Clyde BURCH Unavailable Unavailable PHYSICIAN, PHYSICIAN ER Unavailable Unavailable Melyssa RANKIN MD Unavailable Unavailable Melyssa RANKIN MD Unavailable Unavailable Melysas RANKIN MD Unavailable Unavailable Melyssa RANKIN MD [...] Unavailable Unavailable Анна Braun MD Unavailable Unavailable KadeАнна napoles MD Unavailable Unavailable KadeАнна napoles MD Unavailable Unavailable KadeАнна napoles MD Unavailable Unavailable KadeАнна napoles MD Unavailable Unavailable KadeАнна napoles MD Unavailable Unavailable KadeАнна napoles MD Unavailable Unavailable KadeАнна napoles MD Unavailable Unavailable KadeАнна napoles MD Unavailable Unavailable KadeАнна napoles MD Unavailable Unavailable KadeАнна napoles MD Unavailable Unavailable KadeАнна MD Unavailable Unavailable KadeАнна MD Unavailable Unavailable KadeАнна napoles MD Unavailable Unavailable KadeАнна napoles MD Unavailable Unavailable KadeАнна napoles MD Unavailable Unavailable KadeАнна napoles MD Unavailable Unavailable Анна Braun MD Unavailable Unavailable KadeАнна napoles MD Unavailable Unavailable Анна Braun MD Unavailable Unavailable Анна Braun MD Unavailable Unavailable Анна Braun MD Unavailable Unavailable Анна Braun MD Unavailable Unavailable Анна Braun MD Unavailable Unavailable Анна Braun MD Unavailable Unavailable Анна Braun MD Unavailable Unavailable Анна Braun MD Unavailable Unavailable Анна Braun MD Unavailable Unavailable Анна Braun MD Unavailable Unavailable PHYSICIAN, ER Unavailable Unavailable LORENA RITTER MD Unavailable Unavailable LORENA RITTER MD Unavailable Unavailable LORENA RITTER MD Unavailable Unavailable LORENA RITTER MD Unavailable Unavailable LORENA RITTER MD Unavailable Unavailable LORENA RITTER MD Unavailable Unavailable LORENA RITTER MD Unavailable Unavailable LORENA RITTER MD Unavailable Unavailable LORENA RITTER MD Unavailable Unavailable LORENA RITTER MD Unavailable Unavailable LORENA RITTER MD Unavailable Unavailable LORENA RITTER MD Unavailable Unavailable LORENA RITTER MD Unavailable Unavailable LORENA RITTER MD Unavailable Unavailable LORENA RITTER MD Unavailable Unavailable LORENA RITTER MD Unavailable Unavailable LORENA RITTER MD Unavailable Unavailable LORENA RITTER MD Unavailable Unavailable LORENA RITTER MD Unavailable Unavailable LORENA RITTER MD Unavailable Unavailable LORENA RITTER MD Unavailable Unavailable LORENA RITTER MD Unavailable Unavailable LORENA RITTER MD Unavailable Unavailable LORENA RITTER MD Unavailable Unavailable LORENA RITTER MD Unavailable Unavailable LROENA RITTER MD Unavailable Unavailable LORENA RITTER MD Unavailable Unavailable LORENA RITTER MD Unavailable Unavailable LORENA RITTER MD Unavailable Unavailable LORENA RITTER MD Unavailable Unavailable LORENA RITTER MD Unavailable Unavailable LORENA RITTER MD Unavailable Unavailable LORENA RITTER MD Unavailable Unavailable LORENA RITTER MD Unavailable Unavailable LORENA RITTER MD Unavailable Unavailable LORENA RITTER MD Unavailable Unavailable RITTER, LORENA MD Unavailable [...] Unavailable Unavailable RITTER, LORENA MD Unavailable Unavailable Re-disclosure Warning The records [...] is protected by Article 27-F of the [facility] Public Health law. If you continue you may have access to information: Regarding HIV / AIDS; Provided by facilities licensed or operated by the [facility] Office of Mental Health; or Provided by the [facility] Office for People With Developmental Disabilities. If such information is present, then the following [facility] mandated warning applies: This information has [...] reactions NO KNOWN ALLERGIES NO KNOWN ALLERGIES [facility] Propensity to adverse reactions BICALUTAMIDE BICALUTAMIDE Palpitation s [facility] Casodex Cas[employer]x [employer] active [facility] ([facility]) Family History Family Member Name Family Member Gender Family Member Status Date o f Status Description Data Source(s) Unknown Unknown Problem [facility] Unknown Unknown Problem [facility] ([facility] [place] Encounters Encounter Providers Location Date Indications Data Source(s ) Outpatient Attender: Cyn ERVIN 06/27/2021 12:00:0 0 AM [facility] Outpatient Attender: Jermaine Freeman DO 06/27/2021 12:00:00 AM [facility] Outpatient Attender: DAMION CASHAttender: Damion Cash 05/15/2021 12:00:00 AM [facility] Outpatient Attender: Jermaine Freeman DO 05/09/2021 12:00:00 AM [facility] Outpatient Attender: Moni FlorezAttender: MONI SINCLAIR . 04/24/2021 12:00:00 AM [facility] Outpatient Referrer: Eulalia Muñiz MD 04/23/2021 12: 00:00 AM [facility] Outpatient Attender: Jermaine Freeman DO 04/23/2021 12:00:00 AM [facility] Outpatient Attender: Jermaine Freeman DO 04/18/2021 12:00:00 AM [facility] Outpatient 04/18/2021 12:00:00 AM [facility] Outpatient Attender: ELIO VARGAS [id number] 04/12/2021 12:02:55 PM [facility] Outpatient Attender: Eulalia Galvan i MDAdmitter: Eulalia Muñiz MDReferrer: Elualia Muñiz MD [id number] 04/09/2021 12:00:00 AM EST - 04/09/2021 02:53:00 PM EST Liver cell carcinoma [facility] Liver cell carcinoma Patient admitted. Outpatient Referrer: Eulalia Muñiz MD 04/09/2021 12: 00:00 AM [facility] Outpatient Referrer: Eulalia Muñiz MD 04/09/2021 12: 00:00 AM [facility] Outpatient Attender: DEFAULT EDAttender : JENNIFER BURCHReferrer: Eulalia [id number]-[id number] 04/05/2021 12:00:00 AM EDT - 04/06/2021 12:00:00 AM EDT [facility] Outpatient [address] [facility] [address] 04/02/2021 12:00:00 AM EDT [facility] ([facility]) ( in Healthcare facility) Attender: INNA YANEZ MDAdmitter: ABIOLA YANEZ MDConsultant: KADE WARD 03/30/2021 01:33:00 AM EDT [facility] Emergency Attender: ABIOLA BLOUNT I MDAttender: GARETH MONTANA MDAttender: ER PHYSICIAN 03/29/2021 10:43:15 PM EDT [facility] Outpatient Attender: ABIOLA BLOUNT I MDAttender: GARETH MONTANA MDAttender: ER PHYSICIANAdmitter: ABIOLA YANEZ MD 09:05:00 PM EDT - 03/31/2021 02:19:00 PM EDT RECURRENT OSTOMY BLEED, HX OF BLADDER CA, LIVER CA [facility] RECURRENT OSTOMY BLEED, HX OF BLADDER CA , LIVER CA Patient discharged. Outpatient Attender: Jermaine Freeman DO [id number] 03/28/20 12:00:00 AM EDT - 03/28/2021 03:07:13 PM EDT [facility] Outpatient Referrer: Jermaine Freeman DO 03/22/2021 12:00: 00 AM EDT Liver cell carcinoma [facility] Liver cell carcinoma Outpatient Attender: Krista Meneses/ Asha.M.P. Urology 03/20 09:40:00 AM EDT [facility] ([facility] Unknown [address] [facility] [address] 03/19/2021 12:00:00 AM EDT eCW1 ([facility]) Outpatient Attender: Eulalia Muñiz MD [id number] 03/15/2021 03:57:13 PM EDT [facility] Office Visit Attender: DENVER Meneses/ A.M.P. Urol ogy 03/12/2021 04:58:00 PM EDT [facility] Outpatient Attender: DENVER Meneses/ A.M.P. Urol ogy 03/11/2021 08:24:00 AM EDT [facility] ([facility]) Inpatient Attender: ELIZABETH WATERS MDAttender: ER PHYSICIAN 03/10/2021 02:21:00 PM EDT [facility] Inpatient Attender: ELIZABETH WATERS MDAttender: ER PHYSICIAN 03/10/2021 01:33:49 PM EDT [facility] Inpatient Attender: ELIZABETH Andre tender: ER PHYSICIANAdmitter: ELIZABETH WATERS MD 03/10/2021 12:23:00 PM EDT - 03/12/2021 03:09:00 PM EDT BLEEDING STOMA [facility] BLEEDING STOMA Patient discharged. [place] [address] [address] 03/06/2021 12:00:00 AM EDT eCW1 ([facility]) Unknown [address] [address] 03/05/2021 12:00:00 AM EDT eCW1 ([facility]) Outpatient [address] [facility] [address] 03/05/2021 12:00:00 AM EDT eCW1 ([facility]) Outpatient Attender: Eulalia Muñiz MD [id number] 03/04/2021 12:00:00 AM EDT - 03/04/2021 12:42:30 PM EDT [facility] 03/04/2021 12:00:00 AM EDT new pt [facility] new pt Outpatient Attender: Jermaine Freeman DO [id number] 02/29/20 12:00:00 AM EDT - 02/28/2021 12:20:04 PM EDT [facility] [place] [address] [facility] [address] 02/20/2021 12:00:00 AM EDT eCW1 ([facility]) Outpatient Attender: IESHA CARLIN MD [facility] [place] 02/18/2021 02:13:00 AM EDT [facility] Outpatient Attender: IESHA CARLIN MD [facility] Internal Med a t [place] 02/17/2021 01:59:00 AM EDT [facility] Outpatient Attender: ER PHYSICIAN 02/16/2021 01:10:00 AM E DT [facility] Inpatient Attender: NIRALI Stroud donis: GARETH MONTANA MDAttender: ER PHYSICIANAdmitter: GARETH MONTANA MD 02/16/2021 12:28:09 AM EDT [facility] [place] [facility] Inpatient Attender: NIRALI Stroud donis: GARETH MONTANA MDAttender: ER PHYSICIANAdmitter: NIRALI RANKIN MD 02/15/2021 10:55:00 P M EDT - 02/18/2021 10:51:00 AM EDT ACUTE BLOOD LOSS ANEMIA [facility] ACUTE BLOOD LOSS ANEMIA Patient discharged. [place] [address] [facility] [address] 02/15/2021 12:00:00 AM EDT eCW1 ([facility]) Outpatient Attender: MAR CASTANEDA MD [place]/ A.M.P. Urol ogy 02/14/2021 10:00:00 AM EDT [facility] ([facility]) Outpatient Admitter: Анна CHRISTIANSONeferrer: Анна Braun MD 02/12/2021 12:00:00 AM EDT Liver cell carcinoma [facility] Liver cell carcinoma Unknown [address] [facility] [address] 02/05/2021 12:00:00 AM EDT [facility] Inpatient Attender: ER PHYSICIAN 01/31/2021 12:56:00 AM E DT [facility] Inpatient Attender: ARNAUD PEREZ MDAttender: ER P HYSICIAN 01/31/2021 12:29:40 AM EDT [facility] [place] [facility] Inpatient Attender: ARNAUD HAAS MDAttender: ER PHYSICIANAdmitter: ARNAUD PEREZ MD 01/30/2021 10:55:00 PM EDT - 01/31/2021 11:15:00 AM EDT HEMATURIA [facility] HEMATURIA Patient discharged. Outpatient Attender: Kalia Saxena RPA Zaira/ A.MEnrique Patiñolo laurie 01/22/2021 11:00:00 AM EDT [facility] [place] [place] [address] [facility] [address] 01/22/2021 12:00:00 AM EDT [facility] [place] [address] [facility] [address] 01/22/2021 12:00:00 AM EDT [facility]CW1 [facility] Unknown [address] [facility] [place] [address] 01/17/2021 12:00:00 AM EDT [facility]CW[facility] Unknown [address] [facility] [address] 01/16/2021 12:00:00 AM EDT [facility]CW1 [facility] Unknown [address] [facility] [place] [address] 01/09/2021 12:00:00 AM EDT [facility]CW[facility] Unknown [address] [facility] [place] [address] 01/08/2021 12:00:00 AM EDT [facility]CW1 [facility] Outpatient [address] [facility] [facility] [address] 01/01/2021 12:00:00 AM EDT [facility]CW1 [facility] [facility] Unknown [address] [facility] [address] [address] 12/25/2020 12:00:00 AM EDT [facility] Unknown [address] [facility] [address] 12/24/2020 12:00:00 AM EDT [facility] Office Visit Attender: Tarah Meneses/ Leonardo sullivan 12/05/2020 10:30:00 AM EDT MEDENT [facility] [place] [address] [facility] [address] [address] 11/29/2020 12:00:00 AM EDT eCW1 ([facility]) Outpatient [address] [address] 11/28/2020 12:00:00 AM EDT eCW1 ([facility]) 11/24/2020 01:00:00 AM EDT - 021 11:47:23 PM EDT NETSMART ([facility]) Inpatient Attender: LORENA RITTER MD 11/13/2020 12:03:14 PM EDT [facility] [place] [facility] Inpatient Attender: Krista Kitchen MDAdmitter: Krista Kitchen MD 11/13/2020 10:43:00 AM EDT - 11/22/2020 02:37:00 PM EDT 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 ( in Healthcare facility) Attender: Krista Sesay MDAdmitter: Krista Kitchen MDConsultant: KADE WARD 11/13/2020 10:43:00 AM EDT [facility] Inpatient Attender: Krista Kitchen MD 11/13/2020 10:43:00 AM EDT [facility] Unknown [address] [facility] [address] [address] 11/09/2020 12:00:00 AM EDT eCW1 ([facility]) Unknown [address] [address] [address] 11/08/2020 12:00:00 AM EDT eCW1 ([facility]) Outpatient [address] [address] 11/07/2020 12:00:00 AM EDT eCW1 ([facility]) Outpatient Attender: LORENA RITTER MD 11/06/2020 01:09:23 PM EDT [facility] [place] [facility] Outpatient Attender: Krista Kitchen MD 11/06/2020 11:56:00 A M EDT ROBOTIC XI ASSISTED LAPAROSCOPIC CYSTOPROSTATECTOMY ILEOCOND [facility] ROBOTIC XI ASSISTED LAPAROSCOPIC CYSTOPR OSTATECTOMY ILEOCOND Unknown [address] [facility] [facility] [address] 09/11/2020 12:00:00 AM EDT eCW1 ([facility]) Outpatient Attender: Krista Meneses/ A.M.P. Urology 09/10 04:00:00 PM EDT MEDENT ([facility] Outpatient Attender: MAR Meneses/ A.M.P. Urol ogy 08/03/2020 01:30:00 PM EST MEDENT [facility]) Outpatient Attender: Kalia Youngida/ A.M.P. Urolo gy 07/20/2020 01:15:00 PM EST MEDENT [facility]) Outpatient Attender: Kalia Youngida/ A.M.P. Urolo gy 05/30/2020 01:00:00 PM EST MEDENT [facility]) Outpatient [address] [facility] [facility] [address] [address] 05/18/2020 12:00:00 AM EST eCW1 ([facility]) Outpatient [address] [address] 05/11/2020 12:00:00 AM EST eCW1 ([facility]) Outpatient [address] [address] [address] 05/08/2020 12:00:00 AM EST eCW1 ([facility]) Outpatient Attender: Krista Meneses/ A.M.P. Urology 04/20 07:30:00 AM EST [facility] ([facility] [place] [address] [facility] [address] 03/27/2020 12:00:00 AM EDT eCW1 ([facility]) Outpatient Attender: MAR Meneses/ A.M.P. Urol ogy 03/22/2020 11:00:00 AM EDT MEDENT ([facility]) Outpatient Attender: Kalia Saxena RPA [place]/ A.M.P. Urolo gy 03/20/2020 03:00:00 PM EDT MEDENT [facility]) Outpatient Attender: Kalia Saxena RPA [place]/ A.M.P. Urolo gy 03/16/2020 02:45:00 PM EDT MEDENT [facility]) Outpatient Referrer: MAR CASTANEDA MD [email or web address].PAT 11:08:19 AM EDT - 02/26/2020 11:08:37 AM EDT [facility] SDC Attender: MAR CASTANEDA MD Admitter: MAR CASTANEDA MDReferrer: MAR CASTANEDA MD [facility] 01/19/2020 10:10:55 AM EDT - 03/02/2020 01:04:00 PM EDT [facility] Patient discharged. Immunizations Vaccine Date Status Description Data Source(s) Pfizer #3 dose COVID-19 SARSCOV2 VAC 30MCG/0.3ML IM 03/14/20 06:15:00 AM EDT completed eCW1 ([facility]) COVID-19 VACC, MRNA(PFIZER)/PF 03/14/2021 12:00:00 AM EDT completed [facility] COVID-19 VACCINE Pfizer 03/14/2021 12:00:00 AM EDT completed [employer] Vaccine Series Complete: YESThis Data wa s Submitted to [facility] Via [employer]. IIV3. This is one of two codes replacing CVX 15, which is being retired. 02/26/2021 06:37:00 AM EDT completed eCW1 ([facility]) IIV3. This is one of two codes replacing CVX 15, which is being retired. 02/26/2021 06:37:00 AM EDT completed eCW1 ([facility]) IIV3. This is one of two codes replacing CVX 15, which is being retired. 02/26/2021 06:37:00 AM EDT completed eCW1 ([facility]) IIV3. This is one of two codes replacing CVX 15, which is being retired. 02/26/2021 06:37:00 AM EDT completed eCW1 ([facility]) IIV3. This is one of two codes replacing CVX 15, which is being retired. 02/26/2021 06:37:00 AM EDT completed eCW1 ([facility]) IIV3. This is one of two codes replacing CVX 15, which is being retired. 02/26/2021 06:37:00 AM EDT completed eCW1 ([facility]) COVID-19 dose #2 given elsewhere Unspecified 07/29/2020 06:0 7:00 AM EST completed eCW1 ([facility]) COVID-19 dose #2 given elsewhere Unspecified 07/29/2020 06:0 7:00 AM EST completed eCW1 ([facility]) COVID-19 dose #2 given elsewhere Unspecified 07/29/2020 06:0 7:00 AM EST completed eCW1 ([facility]) COVID-19 dose #2 given elsewhere Unspecified 07/29/2020 06:0 7:00 AM EST completed eCW1 ([facility]) COVID-19 dose #2 given elsewhere Unspecified 07/29/2020 06:0 7:00 AM EST completed eCW1 ([facility]) COVID-19 dose #2 given elsewhere Unspecified 07/29/2020 06:0 7:00 AM EST completed eCW1 ([facility]) COVID-19 dose #2 given elsewhere Unspecified 07/29/2020 06:0 7:00 AM EST completed eCW1 ([facility]) COVID-19 dose #2 given elsewhere Unspecified 07/29/2020 06:0 7:00 AM EST completed eCW1 ([facility]) COVID-19 dose #2 given elsewhere Unspecified 07/29/2020 06:0 7:00 AM EST completed eCW1 ([facility]) COVID-19 dose #2 given elsewhere Unspecified 07/29/2020 06:0 7:00 AM EST completed eCW1 ([facility]) COVID-19 dose #2 given elsewhere Unspecified 07/29/2020 06:0 7:00 AM EST completed eCW1 ([facility]) COVID-19 dose #2 given elsewhere Unspecified 07/29/2020 06:0 7:00 AM EST completed eCW1 ([facility]) COVID-19 dose #2 given elsewhere Unspecified 07/29/2020 06:0 7:00 AM EST completed eCW1 ([facility]) COVID-19 dose #2 given elsewhere Unspecified 07/29/2020 06:0 7:00 AM EST completed eCW1 ([facility]) COVID-19 dose #2 given elsewhere Unspecified 07/29/2020 06:0 7:00 AM EST completed eCW1 ([facility]) COVID-19 dose #2 given elsewhere Unspecified 07/29/2020 06:0 7:00 AM EST completed eCW1 ([facility]) COVID-19 dose #2 given elsewhere Unspecified 07/29/2020 06:0 7:00 AM EST completed eCW1 ([facility]) COVID-19 dose #2 given elsewhere Unspecified 07/29/2020 06:0 7:00 AM EST completed eCW1 ([facility]) COVID-19 dose #2 given elsewhere Unspecified 07/29/2020 06:0 7:00 AM EST completed eCW1 ([facility]) COVID-19 dose #2 given elsewhere Unspecified 07/29/2020 06:0 7:00 AM EST completed eCW1 ([facility]) COVID-19 dose #2 given elsewhere Unspecified 07/29/2020 06:0 7:00 AM EST completed eCW1 ([facility]) COVID-19 dose #2 given elsewhere Unspecified 07/29/2020 06:0 7:00 AM EST completed eCW1 ([facility]) COVID-19 (Pfizer), mRNA, LNP-S, PF, 30 mcg/0.3 mL dose 07/29/2020 12:00:00 AM EST completed [facility] COVID-19 VACCINE Pfizer 07/29/2020 12:00:00 AM EST completed [employer] Vaccine Series Complete: YESThis Data wa s Submitted to [facility] Via [employer]. Pfizer Covid-19 Sars-Cov-2, mRNA, LNP-S, PF, 30 mcg/ 0 .3 mL 07/28/2020 11:00:00 PM EST completed MEDENT ([facility]) COVID-19 dose #1 given elsewhere Unspecified 07/08/2020 06:0 7:00 AM EST completed eCW1 ([facility]) COVID-19 dose #1 given elsewhere Unspecified 07/08/2020 06:0 7:00 AM EST completed eCW1 ([facility]) COVID-19 dose #1 given elsewhere Unspecified 07/08/2020 06:0 7:00 AM EST completed eCW1 ([facility]) COVID-19 dose #1 given elsewhere Unspecified 07/08/2020 06:0 7:00 AM EST completed eCW1 ([facility]) COVID-19 dose #1 given elsewhere Unspecified 07/08/2020 06:0 7:00 AM EST completed eCW1 ([facility]) COVID-19 dose #1 given elsewhere Unspecified 07/08/2020 06:0 7:00 AM EST completed eCW1 ([facility]) COVID-19 dose #1 given elsewhere Unspecified 07/08/2020 06:0 7:00 AM EST completed eCW1 ([facility]) COVID-19 dose #1 given elsewhere Unspecified 07/08/2020 06:0 7:00 AM EST completed eCW1 ([facility]) COVID-19 dose #1 given elsewhere Unspecified 07/08/2020 06:0 7:00 AM EST completed eCW1 ([facility]) COVID-19 dose #1 given elsewhere Unspecified 07/08/2020 06:0 7:00 AM EST completed eCW1 ([facility]) COVID-19 dose #1 given elsewhere Unspecified 07/08/2020 06:0 7:00 AM EST completed eCW1 ([facility]) COVID-19 dose #1 given elsewhere Unspecified 07/08/2020 06:0 7:00 AM EST completed eCW1 ([facility]) COVID-19 dose #1 given elsewhere Unspecified 07/08/2020 06:0 7:00 AM EST completed eCW1 ([facility]) COVID-19 dose #1 given elsewhere Unspecified 07/08/2020 06:0 7:00 AM EST completed eCW1 ([facility]) COVID-19 dose #1 given elsewhere Unspecified 07/08/2020 06:0 7:00 AM EST completed eCW1 ([facility]) COVID-19 dose #1 given elsewhere Unspecified 07/08/2020 06:0 7:00 AM EST completed eCW1 ([facility]) COVID-19 dose #1 given elsewhere Unspecified 07/08/2020 06:0 7:00 AM EST completed eCW1 ([facility]) COVID-19 dose #1 given elsewhere Unspecified 07/08/2020 06:0 7:00 AM EST completed eCW1 ([facility]) COVID-19 dose #1 given elsewhere Unspecified 07/08/2020 06:0 7:00 AM EST completed eCW1 ([facility]) COVID-19 dose #1 given elsewhere Unspecified 07/08/2020 06:0 7:00 AM EST completed eCW1 ([facility]) COVID-19 dose #1 given elsewhere Unspecified 07/08/2020 06:0 7:00 AM EST completed eCW1 ([facility]) COVID-19 dose #1 given elsewhere Unspecified 07/08/2020 06:0 7:00 AM EST completed eCW1 ([facility]) COVID-19 (Pfizer), mRNA, LNP-S, PF, 30 mcg/0.3 mL dose 07/08/2020 12:00:00 AM EST completed [facility] COVID-19 VACCINE Pfizer 07/08/2020 12:00:00 AM EST completed [facility] Vaccine Series Complete: NOThis Data was Submitted to [facility] Via [employer]. Pfizer Covid-19 Sars-Cov-2, mRNA, LNP-S, PF, 30 mcg/ 0 .3 mL 07/07/2020 11:00:00 PM EST completed MEDENT ([facility]) IIV3. This is one of two codes replacing CVX 15, which is being retired. 03/08/2020 06:06:00 AM EDT completed eCW1 ([facility]) IIV3. This is one of two codes replacing CVX 15, which is being retired. 03/08/2020 06:06:00 AM EDT completed eCW1 ([facility]) IIV3. This is one of two codes replacing CVX 15, which is being retired. 03/08/2020 06:06:00 AM EDT completed eCW1 ([facility]) IIV3. This is one of two codes replacing CVX 15, which is being retired. 03/08/2020 06:06:00 AM EDT completed eCW1 ([facility]) IIV3. This is one of two codes replacing CVX 15, which is being retired. 03/08/2020 06:06:00 AM EDT completed eCW1 ([facility]) IIV3. This is one of two codes replacing CVX 15, which is being retired. 03/08/2020 06:06:00 AM EDT completed eCW1 ([facility]) IIV3. This is one of two codes replacing CVX 15, which is being retired. 03/08/2020 06:06:00 AM EDT completed eCW1 ([facility]) IIV3. This is one of two codes replacing CVX 15, which is being retired. 03/08/2020 06:06:00 AM EDT completed eCW1 ([facility]) IIV3. This is one of two codes replacing CVX 15, which is being retired. 03/08/2020 06:06:00 AM EDT completed eCW1 ([facility]) IIV3. This is one of two codes replacing CVX 15, which is being retired. 03/08/2020 06:06:00 AM EDT completed eCW1 ([facility]) IIV3. This is one of two codes replacing CVX 15, which is being retired. 03/08/2020 06:06:00 AM EDT completed eCW1 ([facility]) IIV3. This is one of two codes replacing CVX 15, which is being retired. 03/08/2020 06:06:00 AM EDT completed eCW1 ([facility]) IIV3. This is one of two codes replacing CVX 15, which is being retired. 03/08/2020 06:06:00 AM EDT completed eCW1 ([facility]) IIV3. This is one of two codes replacing CVX 15, which is being retired. 03/08/2020 06:06:00 AM EDT completed eCW1 ([facility]) IIV3. This is one of two codes replacing CVX 15, which is being retired. 03/08/2020 06:06:00 AM EDT completed eCW1 ([facility]) IIV3. This is one of two codes replacing CVX 15, which is being retired. 03/08/2020 06:06:00 AM EDT completed eCW1 ([facility]) IIV3. This is one of two codes replacing CVX 15, which is being retired. 03/08/2020 06:06:00 AM EDT completed eCW1 ([facility]) IIV3. This is one of two codes replacing CVX 15, which is being retired. 03/08/2020 06:06:00 AM EDT completed eCW1 ([facility]) IIV3. This is one of two codes replacing CVX 15, which is being retired. 03/08/2020 06:06:00 AM EDT completed eCW1 ([facility]) IIV3. This is one of two codes replacing CVX 15, which is being retired. 03/08/2020 06:06:00 AM EDT completed eCW1 ([facility]) IIV3. This is one of two codes replacing CVX 15, which is being retired. 03/08/2020 06:06:00 AM EDT completed eCW1 ([facility]) IIV3. This is one of two codes replacing CVX 15, which is being retired. 03/08/2020 06:06:00 AM EDT completed eCW1 ([facility]) INFLUENZA VIRUS VACCINE QUADRIVAL SPLIT 2020-21(65 YR UP)/PF 03/08/2020 12:00:00 AM EDT completed [facility] Medication Brand Name Start Date Product Form Dose Route Admi nistrative Instructions Pharmacy Instructions Status Indications Reaction Description Data Source(s) montelukast 10 MG Oral Tablet MONTELUKAST SODIUM 04/12/2021 12:0 0:00 AM EST tablet 30 TAKE ONE TABLET BY MOUTH EVERY E VENING TAKE ONE TABLET BY MOUTH EVERY EVENING SOLD: 04/12/2021 [facility] 50 mg 04/03/2021 12:00:00 AM EDT tablet [...] active Abdomina l Binder/Elastic 3XL - eCW1 ([facility]) Abdominal Binder/Elastic 3XL - Abdominal Binder/Elastic 3XL - 03/05/2021 12:00:00 AM EDT active Abdomina l Binder/Elastic 3XL - eCW1 ([facility]) Abdominal Binder/Elastic 3XL - Abdominal Binder/Elastic 3XL - 03/05/2021 12:00:00 AM EDT active Abdomina l Binder/Elastic 3XL - eCW1 ([facility]) Abdominal Binder/Elastic 3XL - Abdominal Binder/Elastic 3XL - 03/05/2021 12:00:00 AM EDT active Abdomina l Binder/Elastic 3XL - eCW1 ([facility]) Abdominal Binder/Elastic 3XL - Abdominal Binder/Elastic 3XL - 03/05/2021 12:00:00 AM EDT active Abdomina l Binder/Elastic 3XL - eCW1 ([facility]) Abdominal Binder/Elastic 3XL - Abdominal Binder/Elastic 3XL - 03/05/2021 12:00:00 AM EDT active Abdomina l Binder/Elastic 3XL - eCW1 ([facility]) 4 mg 02/28/2021 12:00:00 AM EDT tablets,dose pack 21 FOLLOW PACKAGE DIRECTIONS FOLLOW PACKAGE DIRECTIONS SOLD: 02/28/2021 [facility] 240 mcg/0.7 mL 02/26/2021 12:00:00 AM EDT syringe 0 INJECT DIRECTED INJECT DIRECTED SOLD: 02/26/2021 [facility] 3 gram 01/31/2021 12:00:00 AM [...] HCl 01/08/2021 01:00:00 AM EDT completed NETSMART ([facility]) Hydroxyzine Hydrochloride 10 MG Oral Tablet hydrOXYzin e HCl 10 MG hydrOXYzine HCl 10 MG 01/08/2021 12:00:00 AM EDT 1.0 {tablet} ac tive hydrOXYzine HCl 10 MG eCW1 ([facility]) Hydroxyzine Hydrochloride 10 MG Oral Tablet hydrOXYzin e HCl 10 MG hydrOXYzine HCl 10 MG 01/08/2021 12:00:00 AM EDT 1.0 {tablet} ac tive hydrOXYzine HCl 10 MG eCW1 ([facility]) Hydroxyzine Hydrochloride 10 MG Oral Tablet hydrOXYzin e HCl 10 MG hydrOXYzine HCl 10 MG 01/08/2021 12:00:00 AM EDT 1.0 {tablet} ac tive hydrOXYzine HCl 10 MG eCW1 ([facility]) Hydroxyzine Hydrochloride 10 MG Oral Tablet hydrOXYzin e HCl 10 MG hydrOXYzine HCl 10 MG 01/08/2021 12:00:00 AM EDT 1.0 {tablet} ac tive hydrOXYzine HCl 10 MG eCW1 ([facility]) Hydroxyzine Hydrochloride 10 MG Oral Tablet hydrOXYzin e HCl 10 MG hydrOXYzine HCl 10 MG 01/08/2021 12:00:00 AM EDT 1.0 {tablet} ac tive hydrOXYzine HCl 10 MG eCW1 ([facility]) Hydroxyzine Hydrochloride 10 MG Oral Tablet hydrOXYzin e HCl 10 MG hydrOXYzine HCl 10 MG 01/08/2021 12:00:00 AM EDT 1.0 {tablet} ac tive hydrOXYzine HCl 10 MG eCW1 ([facility]) Hydroxyzine Hydrochloride 10 MG Oral Tablet hydrOXYzin e HCl 10 MG hydrOXYzine HCl 10 MG 01/08/2021 12:00:00 AM EDT 1.0 {tablet} ac tive hydrOXYzine HCl 10 MG eCW1 ([facility]) Hydroxyzine Hydrochloride 10 MG Oral Tablet hydrOXYzin e HCl 10 MG hydrOXYzine HCl 10 MG 01/08/2021 12:00:00 AM EDT 1.0 {tablet} ac tive hydrOXYzine HCl 10 MG eCW1 ([facility]) Hydroxyzine Hydrochloride 10 MG Oral Tablet hydrOXYzin e HCl 10 MG hydrOXYzine HCl 10 MG 01/08/2021 12:00:00 AM EDT 1.0 {tablet} ac tive hydrOXYzine HCl 10 MG eCW1 ([facility]) Hydroxyzine Hydrochloride 10 MG Oral Tablet hydrOXYzin e HCl 10 MG hydrOXYzine HCl 10 MG 01/08/2021 12:00:00 AM EDT 1.0 {tablet} ac tive hydrOXYzine HCl 10 MG eCW1 ([facility]) Hydroxyzine Hydrochloride 10 MG Oral Tablet hydrOXYzin e HCl 10 MG hydrOXYzine HCl 10 MG 01/08/2021 12:00:00 AM EDT 1.0 {tablet} ac tive hydrOXYzine HCl 10 MG eCW1 ([facility]) Hydroxyzine Hydrochloride 10 MG Oral Tablet hydrOXYzin e HCl 10 MG hydrOXYzine HCl 10 MG 01/08/2021 12:00:00 AM EDT 1.0 {tablet} ac tive hydrOXYzine HCl 10 MG eCW1 ([facility]) Hydroxyzine Hydrochloride 10 MG Oral Tablet hydrOXYzin e HCl 10 MG hydrOXYzine HCl 10 MG 01/08/2021 12:00:00 AM EDT 1.0 {tablet} ac tive hydrOXYzine HCl 10 MG eCW1 ([facility]) Hydroxyzine Hydrochloride 10 MG Oral Tablet hydrOXYzin e HCl 10 MG hydrOXYzine HCl 10 MG 01/08/2021 12:00:00 AM EDT 1.0 {tablet} ac tive hydrOXYzine HCl 10 MG eCW1 ([facility]) Hydroxyzine Hydrochloride 10 MG Oral Tablet hydrOXYzin e HCl 10 MG hydrOXYzine HCl 10 MG 01/08/2021 12:00:00 AM EDT 1.0 {tablet} ac tive hydrOXYzine HCl 10 MG eCW1 ([facility]) Losartan Potassium 100 MG Losartan Potassium 01/07/2021 01:00:00 AM EDT completed NETSMART ([facility]) Spironolactone 25 MG Spironolactone 01/07/2021 01:00:00 AM EDT completed NETSMART ([facility]) 20 mg 01/02/2021 12:00:00 AM EDT tablet 90 TAKE ONE TABLET BY MOUTH EVERY DAY TAKE ONE TABLET BY MOUTH EVERY DAY SOLD: 01/02/2021 [facility] 325 mg (65 mg iron) 01/02/2021 12:00:00 AM EDT tablet 40 TAKE ONE TABLET BY MOUTH EVERY THURSDAY/THURSDAY/THURSDAY TAKE ONE TABLET BY MOUTH EVERY THURSDAY/THURSDAY/THURSDAY SOLD: 01/02/2021 [facility] 25 mg 01/02/2021 [...] {tablet} active Spironolact one 25 MG eCW1 ([facility]) Spironolactone 25 MG Oral Tablet Spironolactone 25 MG 2020 12:00:00 AM EDT 1.0 {tablet} active Spironolact one 25 MG eCW1 ([facility]) Losartan Potassium 50 MG Oral Tablet Losartan Potassium 50 M G 01/01/2021 12:00:00 AM EDT active Losartan Potassium 50 MG eCW1 ([facility]) Spironolactone 25 MG Oral Tablet Spironolactone 25 MG 2020 12:00:00 AM EDT 1.0 {tablet} active Spironolact one 25 MG eCW1 ([facility]) Spironolactone 25 MG Oral Tablet Spironolactone 25 MG 2020 12:00:00 AM EDT 1.0 {tablet} active Spironolact one 25 MG eCW1 ([facility]) Losartan Potassium 100 MG Oral Tablet Losartan Potassium 100 MG 01/01/2021 12:00:00 AM EDT 1.0 {tablet} active Lo sartan Potassium 100 MG eCW1 ([facility]) Losartan Potassium 100 MG Oral Tablet Losartan Potassium 100 MG 01/01/2021 12:00:00 AM EDT 1.0 {tablet} active Lo sartan Potassium 100 MG eCW1 ([facility]) Spironolactone 25 MG Oral Tablet Spironolactone 25 MG 2020 12:00:00 AM EDT 1.0 {tablet} active Spironolact one 25 MG eCW1 ([facility]) Spironolactone 25 MG Oral Tablet Spironolactone 25 MG 2020 12:00:00 AM EDT 1.0 {tablet} active Spironolact one 25 MG eCW1 ([facility]) Spironolactone 25 MG Oral Tablet Spironolactone 25 MG 2020 12:00:00 AM EDT 1.0 {tablet} active Spironolact one 25 MG eCW1 ([facility]) Losartan Potassium 100 MG Oral Tablet Losartan Potassium 100 MG 01/01/2021 12:00:00 AM EDT 1.0 {tablet} active Lo sartan Potassium 100 MG eCW1 ([facility]) Losartan Potassium 100 MG Oral Tablet Losartan Potassium 100 MG 01/01/2021 12:00:00 AM EDT 1.0 {tablet} active Lo sartan Potassium 100 MG eCW1 ([facility]) Losartan Potassium 100 MG Oral Tablet Losartan Potassium 100 MG 01/01/2021 12:00:00 AM EDT 1.0 {tablet} active Lo sartan Potassium 100 MG eCW1 ([facility]) Losartan Potassium 100 MG Oral Tablet Losartan Potassium 100 MG 01/01/2021 12:00:00 AM EDT 1.0 {tablet} active Lo sartan Potassium 100 MG eCW1 ([facility]) Losartan Potassium 100 MG Oral Tablet Losartan Potassium 100 MG 01/01/2021 12:00:00 AM EDT 1.0 {tablet} active Lo sartan Potassium 100 MG eCW1 ([facility]) Losartan Potassium 100 MG Oral Tablet Losartan Potassium 100 MG 01/01/2021 12:00:00 AM EDT 1.0 {tablet} active Lo sartan Potassium 100 MG eCW1 ([facility]) Spironolactone 25 MG Oral Tablet Spironolactone 25 MG 2020 12:00:00 AM EDT 1.0 {tablet} active Spironolact one 25 MG eCW1 ([facility]) Losartan Potassium 100 MG Oral Tablet Losartan Potassium 100 MG 01/01/2021 12:00:00 AM EDT 1.0 {tablet} active Lo sartan Potassium 100 MG eCW1 ([facility]) Losartan Potassium 100 MG Oral Tablet Losartan Potassium 100 MG 01/01/2021 12:00:00 AM EDT 1.0 {tablet} active Lo sartan Potassium 100 MG eCW1 ([facility]) Spironolactone 25 MG Oral Tablet Spironolactone 25 MG 2020 12:00:00 AM EDT 1.0 {tablet} active Spironolact one 25 MG eCW1 ([facility]) Spironolactone 25 MG Oral Tablet Spironolactone 25 MG 2020 12:00:00 AM EDT 1.0 {tablet} active Spironolact one 25 MG eCW1 ([facility]) Losartan Potassium 100 MG Oral Tablet Losartan Potassium 100 MG 01/01/2021 12:00:00 AM EDT 1.0 {tablet} active Lo sartan Potassium 100 MG eCW1 ([facility]) Losartan Potassium 100 MG Oral Tablet Losartan Potassium 100 MG 01/01/2021 12:00:00 AM EDT 1.0 {tablet} active Lo sartan Potassium 100 MG eCW1 ([facility]) Losartan Potassium 100 MG Oral Tablet Losartan Potassium 100 MG 01/01/2021 12:00:00 AM EDT 1.0 {tablet} active Lo sartan Potassium 100 MG eCW1 ([facility]) Spironolactone 25 MG Oral Tablet Spironolactone 25 MG 2020 12:00:00 AM EDT 1.0 {tablet} active Spironolact one 25 MG eCW1 ([facility]) Losartan Potassium 100 MG Oral Tablet Losartan Potassium 100 MG 01/01/2021 12:00:00 AM EDT 1.0 {tablet} active Lo sartan Potassium 100 MG eCW1 ([facility]) Spironolactone 25 MG Oral Tablet Spironolactone 25 MG 2020 12:00:00 AM EDT 1.0 {tablet} active Spironolact one 25 MG eCW1 ([facility]) Spironolactone 25 MG Oral Tablet Spironolactone 25 MG 2020 12:00:00 AM EDT 1.0 {tablet} active Spironolact one 25 MG eCW1 ([facility]) Spironolactone 25 MG Oral Tablet Spironolactone 25 MG 2020 12:00:00 AM EDT 1.0 {tablet} active Spironolact one 25 MG eCW1 ([facility]) Spironolactone 25 MG Oral Tablet Spironolactone 25 MG 2020 12:00:00 AM EDT 1.0 {tablet} active Spironolact one 25 MG eCW1 ([facility]) Colace 100 MG Colace 12/31/2020 01:00:00 AM EDT co mpleted NETSMART ([facility]) Potassium Chloride Potassium Chloride 12/31/2020 01:00:00 AM EDT 15.0 {mEq} completed NETSMART ([facility]) 15 mEq 12/25/2020 12:00:00 AM EDT tablet,ER particles/cry stals 10 TAKE ONE TABLET BY MOUTH EVERY DAY DIRECTED TAKE ONE TABLET BY MOUTH EVERY DAY DIRECTED SOLD: 12/25/2020 [facility] Lasix 20 MG Lasix 12/24/2020 01:00:00 AM EDT compl eted NETSMART ([facility]) Furosemide 20 MG Oral Tablet [Lasix] Lasix 20 MG Lasix 20 MG 12/24/2020 12:00:00 AM EDT 1.0 {tablet} active Lasix 20 M G eCW1 ([facility]) Furosemide 40 MG Oral Tablet [Lasix] Lasix 40 MG Lasix 40 MG 12/24/2020 12:00:00 AM EDT 1.0 {tablet} active Lasix 40 M G eCW1 ([facility]) Furosemide 40 MG Oral Tablet [Lasix] Lasix 40 MG Lasix 40 MG 12/24/2020 12:00:00 AM EDT 1.0 {tablet} active Lasix 40 M G eCW1 ([facility]) Furosemide 20 MG Oral Tablet [Lasix] Lasix 20 MG Lasix 20 MG 12/24/2020 12:00:00 AM EDT 1.0 {tablet} active Lasix 20 M G eCW1 ([facility]) Furosemide 20 MG Oral Tablet [Lasix] Lasix 20 MG Lasix 20 MG 12/24/2020 12:00:00 AM EDT 1.0 {tablet} active Lasix 20 M G eCW1 ([facility]) Furosemide 20 MG Oral Tablet [Lasix] Lasix 20 MG Lasix 20 MG 12/24/2020 12:00:00 AM EDT 1.0 {tablet} active Lasix 20 M G eCW1 ([facility]) Furosemide 20 MG Oral Tablet [Lasix] Lasix 20 MG Lasix 20 MG 12/24/2020 12:00:00 AM EDT 1.0 {tablet} active Lasix 20 M G eCW1 ([facility]) Furosemide 40 MG Oral Tablet [Lasix] Lasix 40 MG Lasix 40 MG 12/24/2020 12:00:00 AM EDT 1.0 {tablet} active Lasix 40 M G eCW1 ([facility]) Furosemide 20 MG Oral Tablet [Lasix] Lasix 20 MG Lasix 20 MG 12/24/2020 12:00:00 AM EDT 1.0 {tablet} active Lasix 20 M G eCW1 ([facility]) Furosemide 20 MG Oral Tablet [Lasix] Lasix 20 MG Lasix 20 MG 12/24/2020 12:00:00 AM EDT 1.0 {tablet} active Lasix 20 M G eCW1 ([facility]) Furosemide 40 MG Oral Tablet [Lasix] Lasix 40 MG Lasix 40 MG 12/24/2020 12:00:00 AM EDT 1.0 {tablet} active Lasix 40 M G eCW1 ([facility]) Furosemide 20 MG Oral Tablet [Lasix] Lasix 20 MG Lasix 20 MG 12/24/2020 12:00:00 AM EDT 1.0 {tablet} active Lasix 20 M G eCW1 ([facility]) Potassium Chloride CR 15 MEQ UNK 12/24/2020 12:00:00 AM EDT active Potassium Chloride CR 15 MEQ eCW1 ([facility]) Furosemide 40 MG Oral Tablet [Lasix] Lasix 40 MG Lasix 40 MG 12/24/2020 12:00:00 AM EDT 1.0 {tablet} active Lasix 40 M G eCW1 ([facility]) Potassium Chloride CR 15 MEQ UNK 12/24/2020 12:00:00 AM EDT active Potassium Chloride CR 15 MEQ eCW1 ([facility]) Furosemide 20 MG Oral Tablet [Lasix] Lasix 20 MG Lasix 20 MG 12/24/2020 12:00:00 AM EDT 1.0 {tablet} active Lasix 20 M G eCW1 ([facility]) Furosemide 20 MG Oral Tablet [Lasix] Lasix 20 MG Lasix 20 MG 12/24/2020 12:00:00 AM EDT 1.0 {tablet} active Lasix 20 M G eCW1 ([facility]) Furosemide 20 MG Oral Tablet [Lasix] Lasix 20 MG Lasix 20 MG 12/24/2020 12:00:00 AM EDT 1.0 {tablet} active Lasix 20 M G eCW1 ([facility]) Furosemide 40 MG Oral Tablet [Lasix] Lasix 40 MG Lasix 40 MG 12/24/2020 12:00:00 AM EDT 1.0 {tablet} active Lasix 40 M G eCW1 ([facility]) 20 mg 12/24/2020 12:00:00 AM [...] 12:00:00 AM EDT ORAL completed [facility] ([facility]) Melatonin 10 MG Melatonin 11/30/2020 01:00:00 AM EDT completed NETSMART ([facility]) Ferrous Sulfate 325 (65 Fe) MG Ferrous Sulfate 11/30/2020 01:00:00 AM EDT completed NETSMART ([facility]) Lidocaine Pain Relieving 4 % Lidocaine Pain Relieving 2020 01:00:00 AM EDT completed NETSMAR T ([facility]) MetFORMIN HCl ER (MOD) 500 MG MetFORMIN HCl ER (MOD) 11/30/2020 01:00:00 AM EDT 2.0 {tablet} completed N ETSMART ([facility]) Lidocaine 0.05 MG/MG Topical Ointment LIDOCAINE 11/29/2020 [...] EDT 1.0 {tablet} completed NETSMART ([facility]) FreeStyle Hendrix Lite w/Device FreeStyle Hendrix Lite 11/24 01:00:00 AM EDT completed NETSMAR T ([facility]) Lancets 28 G Lancets 28 G 11/24/2020 01:00:00 AM EDT completed NETSMART ([facility]) Losartan Potassium-HCTZ 100-12.5 MG Losartan Potassium-HCTZ 11/24/2020 01:00:00 AM EDT 1.0 {tablet} completed N BARBARAMART ([facility]) Colace 100 MG Colace 11/24/2020 01:00:00 AM EDT 1.0 {tablet} completed NETSMART ([facility]) MetFORMIN HCl 500 MG MetFORMIN HCl 11/24/2020 01:00:00 AM EDT 1.0 {tablet} completed NETSMART ([facility]) Tylenol Extra Strength 500 MG Tylenol Extra Strength 11/24/2020 01:00:00 AM EDT 0 {tablet} completed NET SMART ([facility]) Tylenol PM Tylenol PM 11/24/2020 01:00:00 AM EDT 1.0 {tablet} completed NETSMART ([facility]) Ciprofloxacin 750 MG Oral Tablet Ciprofloxacin HCl 750 MG Ciprofloxacin HCl 750 MG 11/22/2020 12:00:00 AM EDT 1.0 {tablet} activ e Ciprofloxacin HCl 750 MG eCW1 ([facility]) 750 mg 11/22/2020 12:00:00 AM EDT tablet 20 TAKE ONE TABLET BY MOUTH EVERY 12 HOURS TAKE ONE TABLET BY MOUTH EVERY 12 HOURS SOLD: 11/22/2020 [facility] BLOOD-GLUCOSE METER 2020 12:00:00 AM EDT kit [...] MAXIMUM DAILY DOSE = 4 SOLD: 2020 [facility] 28 gauge 11/19/2020 12:00:00 AM EDT misc 100 USE WITH METER TWO TIMES A DAY NEEDED USE WITH METER TWO TIMES A DAY NEEDED SOLD: 2020 [facility] WATER FOR IRRIGATION,STERILE 08/30/2020 12:00:00 AM [...] STERILE WATER TWICE A DAY SOLD: 08/16/2020 [facility] WATER FOR IRRIGATION,STERILE 07/21/2020 12:00:00 AM EST solu tion 2000 IRRIGATE CATHETER WITH 60CCS OR STERILE WATER TWICE A DAY IRRIGATE CATHETER WITH 60CCS OR STERILE WATER TWICE A DAY SOLD: 07/24/2020 [facility] Water 1000 MG/ML Irrigation Solution Sterile Water Irrigatio n Plastic Bottle 07/20/2020 12:00:00 AM EST completed [facility] ([facility]) 250 mg 06/04/2020 12:00:00 AM EST tablet 14 TAKE ONE TABLET BY MOUTH TWICE A DAY FOR 7 DAYS TAKE ONE TABLET BY MOUTH TWICE A DAY FOR 7 DAYS SOLD: 06/04/2020 [facility] Ciprofloxacin 250 MG Oral Tablet [Cipro] Cipro 06/04/2020 12:00: 00 AM EST ORAL completed [facility] ([facility] 24 HR Metformin hydrochloride 500 MG Extended Release Oral T ablet METFORMIN HCL 05/19/2020 12:00:00 AM EST tablet extended release 24 hr 180 TAKE 2 TABLETS BY MOUTH ONCE A DAY WITH EVENING MEAL TAKE 2 TABLETS BY MOUTH ONCE A DAY WITH EVENING MEAL SOLD: 11/16/2020 [facility] 500 mg 05/19/2020 12:00:00 AM [...] 12:00:00 AM EDT ORAL completed [facility] ([facility]) 250 mg 02/24/2020 12:00:00 AM EDT tablet 10 TAKE ONE TABLET BY MOUTH TWICE A DAY FOR 5 DAYS START 3 DAYS PRIOR TO PROCEDURE TAKE ONE TABLET BY MOUTH TWICE A DAY FOR 5 DAYS START 3 DAYS PRIOR TO PROCEDURE SOLD: 02/26/2020 [facility] Ciprofloxacin 250 MG Oral Tablet Ciprofloxacin HCL 02/24/2020 12:00 :00 AM EDT ORAL completed [facility] ([facility] NITROFURANTOIN, MACROCRYSTALS 25 MG / Ni trofurantoin, Monohydrate 75 MG Oral Capsule Nitrofurantoin Monohyd Macro 02/23/2020 12:00:00 AM EDT ORAL completed [facility] ([facility] 100 mg 02/23/2020 12:00:00 AM EDT capsule [...] 90 TAKE ONE TABLET BY MOUTH STAS DAY TAKE ONE TABLET BY MOUTH EVERY DAY SOLD: 03/14/2020 [facility] Insurance Providers Payer name Policy type / Coverage type Policy ID Covered alliance party ID Covered alliance party's relationship to chand Policy Chand Plan Information Medicare Medicare Primary [id number] Self [id number] Medicare Medicare Primary [id number] Self [id number] Medicare Medicare Primary [id number] Self [id number] Medicare Medicare Primary [id number] Self [id number] Medicare Medicare Primary [id number] [facility] MEDICARE [id number] xxxxxxxxxxx [id number] Medicare Medicare Primary [id number] Self [id number] MEDICARE A [id number] Self [id number] Medicare Medicare Primary [id number] Self [id number] MEDICARE [id number] Janna [id number] U75 [id number] Medicare Medicare Primary [id number] Self [id number] Medicare Medicare Primary [id number] Self [id number] BCBS [facility] [id number] SP [id number] [facility] [id number] SP [id number] [facility] BCBS [id number] Janna YLS [id number] EXCELLUS BCBS [id number] xxxxxxxxxxxx [phone] INSURANCE COVID-19 COVID Janna C OVID INSURANCE COVID-19 [id number] [id number] EMPIRE PLAN [facility] [id number] Self [id number] ANSI-Commercial [id number] ANSI-Medicare Part B [id number] [place] [facility] [id number] Self [id number] [facility] [place] Medigap Part B [id number] Self Medicare [place] Primary [id number] Self [place] Plan [facility] Medigap Part B [id number] Self EMPIRE BLUE CROSS BLUE SHIELD -O/P [id number] 18 [id number] MEDICARE -O/P [id number] 18 [id number] EMPIRE BLUE CROSS BLUE SHIELD -O/P [id number] 18 [id number] MEDICARE -O/P [id number] 18 [id number] [facility] [id number] SP [id number] BCBS EMPIRE ARASH DIV [id number] SP [id number] MEDICARE [id number] SP [id number] EXCELLUS BLUE CROSS BLUE SHIELD HEA [id number] S [id number] MEDICARE MCA [id number] S [id number] MEDICARE MCA [id number] S [id number] [facility] [id number] SP [id number] [facility] EMPIRE ARASH DIV [id number] [place] Plan [facility] Part B [id number] [facility] [id number] ANSI-Commercial [id number] ANSI-Medicare Part B [id number] ANSI-Medicare Part B [id number] ANSI-Commercial [id number] ANSI-Commercial [id number] ANSI-Medicare Part B [id number] MEDICARE [id number] ANSI-Medicare Part B [id number] ANSI-Commercial [id number] ANSI-Medicare Part B [id number] ANSI-Commercial [id number] Problems, Conditions, and Diagnoses Code Display Name Description Problem Type Effective Dates Data Source(s) fol fol Diagnosis 04/18/2021 12:15:[address] [facility] C22.0 Liver cell carcinoma Liver cell carcinoma Diagnosis 04/09/2021 12:00:00 AM [facility] new pt new pt Diagnosis 03/04/2021 12:00:00 AM [facility] N21.0 Calculus in bladder Calculus in bladder Diagnosis 1 08:25:00 AM EDT [facility] N32.81 Overactive bladder Overactive bladder Diagnosis 07/2019 08:25:00 AM EDT [facility] J98.8 Other specified respiratory disorders Ot her specified respiratory disorders Diagnosis 02/26/2020 11:08:19 AM EDT [facility] U07.1 COVID-19 COVID-19 Diagnosis 02/26/2020 11:08:19 AM ED [facility] C22.0 Primary malignant neoplasm of liver Primary valeri gnant neoplasm of liver Problem 03/20/2021 12:00:00 AM EDT [facility] ([facility]) K92.2 Gastrointestinal hemorrhage Gastrointestinal hemorrhag e Problem 03/20/2021 12:00:00 AM EDT [facility] ([facility]) 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 Problem 03/05/20 12:00:00 AM EDT eCW1 ([facility]) C22.0 [id number] Hepatocellular carcinoma Problem 02/15/2021 12:00:00 AM EDT eCW1 ([facility]) R16.0 [id number] Liver mass, right lobe Problem 01/17/2021 12 :00:00 AM EDT eCW1 ([facility]) R18.8 [id number] Other ascites Problem 01/17/2021 12:00:00 AM EDT eCW1 ([facility]) K76.0 [id number] Fatty liver Problem 01/01/2021 12:00:00 AM E DT eCW1 ([facility]) D64.9 [id number] Chronic anemia Problem 11/28/2020 12:00:00 A M EDT eCW1 ([facility]) C61 Malignant neoplasm of prostate Malignant neoplasm of p rostate Problem 11/24/2020 01:00:00 AM EDT NETSMART ([facility] ) 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 Malignant neoplasm of ur ethra Problem 11/24/2020 01:00:00 AM EDT NETSMART ([facility] ) E11.9 Type 2 diabetes mellitus without complic ations Type 2 diabetes mellitus without complications Problem 11/24/2020 01:00:00 AM EDT NETSMART ([facility]) I10 Essential (primary) hypertension Essential (primary) h ypertension Problem 11/24/2020 01:00:00 AM EDT NETSMART ([facility] ) R78.81 Bacteremia Bacteremia Problem 11/24/2020 01:00:00 AM ED T NETSMART ([facility]) 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 Pseudomonas (aeruginosa) (mallei) (pseud omallei) as the cause of diseases classified elsewhere Problem 11/24/2020 01:00:00 A M EDT NETSMART ([facility]) K74.60 Unspecified cirrhosis of liver Unspecified cirrhosis o f liver Problem 11/24/2020 01:00:00 AM EDT NETSMART ([facility] ) D69.6 Thrombocytopenia, unspecified Thrombocytopenia, unspec ified Problem 11/24/2020 01:00:00 AM EDT NETSMART ([facility] ) Z46.6 Encounter for fitting and adjustment of urinary device Encounter for fitting and adjustment of urinary device Problem 11/24/2020 01:00:00 AM EDT NETSMART ([facility]) Z43.6 Encounter for attention to other artific ial openings of urinary tract Encounter for attention to other artificial openings of urinary tract Problem 11/24/2020 01:00:00 AM EDT NETSMART ([facility] ) Z79.84 nursing home (current) use of oral hypoglyc emic drugs 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 (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) use of oral hypoglycemic drugs Problem 11/24/2020 01:00:00 AM EDT NE TSMART ([facility]) Z90.89 Acquired absence of other organs Acquired absenc e of other organs Problem 11/24/2020 01:00:00 AM EDT NETSMART ([facility]) Z90.79 Acquired absence of other genital organ( s) Acquired absence of other genital organ(s) Problem 11/24/2020 01:00:00 AM EDT NETSMART ([facility]) Z90.6 Acquired absence of other parts of urina ry tract Acquired absence of other parts of urinary tract Problem 11/24/2020 01:00:00 AM EDT NETSMART ([facility]) 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 Problem 11/24/2020 01:00:00 AM EDT NETSMART ([facility]) 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 Prob donita 04/20/2020 12:00:00 AM EST [facility] ([facility]) N32.81 Overactive bladder Overactive bladder Problem 0 12:00:00 AM EDT [facility] ([facility]) Surgeries/Procedures Procedure Description Date Indications Data Source(s) OFFICE OUTPATIENT VISIT 15 MINUTES 03/20/2021 12:00:00 AM EDT [facility] ([facility]) HOSPITAL DISCHARGE DAY MANAGEMENT > 30 MIN 03/12/2021 12:00:00 AM EDT [facility] ([facility]) [facility] HOSPITAL CARE/DAY 35 MINUTES 03/11/2021 12:00:00 AM EDT [facility] ([facility]) [facility] HOSPITAL CARE/DAY 15 MINUTES 02/18/2021 12:00:00 AM EDT [facility] ([facility]) [facility] HOSPITAL CARE/DAY 25 MINUTES 02/17/2021 12:00:00 AM EDT [facility] ([facility]) Electrocardiogram Interpretation & Report Only 021 12:00:00 AM EDT MED[facility] ([facility]) OFFICE OUTPATIENT VISIT 15 MINUTES 02/14/2021 12:00:00 AM EDT [facility] ([facility]) OFFICE OUTPATIENT VISIT 15 MINUTES 01/22/2021 12:00:00 AM EDT [facility] ([facility]) Electrocardiogram Interpretation & Report Only 021 12:00:00 AM EDT [facility] ([facility]) APPENDECTOMY 11/13/2020 12:00:00 AM EDT M [facility]ENT ([facility]) Cystectomy, And Ileal Loop 11/13/2020 12:00:00 AM EDT [facility] ([facility]) ECG ROUTINE ECG W/LEAST 12 LDS W/I&R 11/07/2020 12:00: 00 AM EDT eCW1 ([facility]) INSJ TEMP NDWELLG BLADDER CATHETER SIMPLE 09/25/2020 1 2:00:00 AM EDT [facility] ([facility]) OFFICE OUTPATIENT VISIT 40 MINUTES 09/10/2020 12:00:00 AM EDT [facility] ([facility]) INSJ TEMP NDWELLG BLADDER CATHETER SIMPLE 08/22/2020 1 2:00:00 AM EDT [facility] ([facility]) CYSTOURETHROSCOPY 08/03/2020 12:00:00 AM EST [facility] ([facility]) OFFICE OUTPATIENT VISIT 10 MINUTES 08/03/2020 12:00:00 AM EST [facility] ([facility]) Sars-Cov-2 (Covid-19) vaccine,Pfizer, LNP-S, PF, 30 mcg/ 0.3 mL 07/29/2020 12:00:00 AM EST [facility] OFFICE OUTPATIENT VISIT 25 MINUTES 07/20/2020 12:00:00 AM EST [facility] ([facility]) Sars-Cov-2 (Covid-19) vaccine,Pfizer, LNP-S, PF, 30 mcg/ 0.3 mL 07/08/2020 12:00:00 AM EST [facility]) INSJ TEMP NDWELLG BLADDER CATHETER SIMPLE 06/21/2020 1 2:00:00 AM EST [facility] ([facility]) US RETROPERITONEAL REAL TIME W/IMAGE LIMITED 0 12:00:00 AM EST [facility] ([facility]) US RETROPERITONEAL REAL TIME W/IMAGE LIMITED 0 12:00:00 AM EST [facility] ([facility]) OFFICE OUTPATIENT VISIT 25 MINUTES 05/30/2020 12:00:00 AM EST [facility] ([facility]) INSJ TEMP NDWELLG BLADDER CATHETER SIMPLE 05/22/2020 1 2:00:00 AM EST [facility] ([facility]) INSJ TEMP NDWELLG BLADDER CATHETER SIMPLE 04/20/2020 1 2:00:00 AM EST [facility] ([facility]) INSJ TEMP NDWELLG BLADDER CATHETER SIMPLE 03/22/2020 1 2:00:00 AM EDT [facility] ([facility]) CARLENE POST-VOIDING RESIDUAL URINE&/BLDR CAP 03/22/2020 12:00:00 AM EDT [facility] ([facility]) CARLENE POST-VOIDING RESIDUAL URINE&/BLDR CAP 03/20/2020 12:00:00 AM EDT [facility] ([facility]) CARLENE POST-VOIDING RESIDUAL URINE&/BLDR CAP 03/16/2020 12:00:00 AM EDT [facility] ([facility]) Cystourethroscopy,/W Injects For [place] Of The Geoff dder 03/02/2020 12:00:00 AM EDT [facility] ([facility]) History & Physical 02/24/2020 12:00:00 AM EDT [facility] ([facility]) Results ID Date Data Source [id number] 04/18/2021 12:14:32 PM EST [facility] Name Value Range Interpretation Code Description Data Ema rce(s) Supporting Document(s) Leukocytes [#/volume] in Blood by Automated count 4.4 10*3/uL 4-10 [facility] Erythrocytes [#/volume] in Blood by Automated count 3.04 10*6/uL 4.6- 6.1 L [facility] Hemoglobin [Mass/volume] in Blood 8.3 g/dL 13.5-18 L [facility] Hematocrit [Volume Fraction] of Blood by Automated count 25.4 % 4 1-53 L [facility] Erythrocyte mean corpuscular volume [Entitic volume] by Auto mated count 83.6 fL 80-96 [facility] Erythrocyte mean corpuscular hemoglobin [Entitic mass] by Automated count 27.3 pg 27-33 [facility] Erythrocyte mean corpuscular hemoglobin concentration [Mass/volume] by Automated count 32.6 g/dL 32.0-36.0 [facility] Erythrocyte distribution width [Ratio] by Automated count 16.4 % 11.5-14.5 H [facility] Platelets [#/volume] in Blood by Automated count 192 10*3/uL 150-400 [facility] Differential cell count method - Blood [facility] Neutrophils/100 leukocytes in Blood by Automated count 71 % [facility] Lymphocytes/100 leukocytes in Blood by Automated count 7 % [facility] Monocytes/100 leukocytes in Blood by Automated count 11 % [facility] Eosinophils/100 leukocytes in Blood by Automated count 9 % [facility] Basophils/100 leukocytes in Blood by Automated count 2 % [facility] Neutrophils [#/volume] in Blood by Automated count 3.16 10*3/uL 1.8-7 .0 [facility] Lymphocytes [#/volume] in Blood by Automated count 0.30 10*3/uL 1.2-4 .0 L [facility] Monocytes [#/volume] in Blood by Automated count 0.47 10*3/uL 0-0.8 [facility] Eosinophils [#/volume] in Blood by Automated count 0.39 10*3/uL 0-0.5 [facility] Basophils [#/volume] in Blood by Automated count 0.06 10*3/uL 0-0.2 [facility] Nucleated erythrocytes/100 leukocytes [Ratio] in Blood by Automated count 0 /100{WBCs} 0-0 [facility] ID Date Data Source [id number] 04/18/2021 12:24:00 PM [facility] Name Value Range Interpretation Code Description Data Ema rce(s) Supporting Document(s) Prothrombin time (PT) 13.8 s 11.6-14.0 [facility] INR in Platelet poor plasma by Coagulation assay 1.11 [facility] Routine intensity oral anticoagulation I NR is typically 2.0-3.0. Target INR must be clinically individualized. ID Date Data Source [id number] 04/18/2021 12:24:00 PM [facility] Name Value Range Interpretation Code Description Data Ema rce(s) Supporting Document(s) aPTT in Platelet poor plasma by Coagulation assay 31.0 s 24.0-33. 0 [facility] ID Date Data Source [id number] 04/18/2021 12:52:55 PM [facility] Name Value Range Interpretation Code Description Data Ema rce(s) Supporting Document(s) Albumin [Mass/volume] in Serum or Plasma by Bromocresol green (BCG) dye binding method 3.2 g/dL 3.5-5.2 [facility] Bil[facility].total [Mass/volume] in Serum or Plasma 0.5 mg/dL <1.2 [facility] Calcium [Mass/volume] in Serum or Plasma 10.7 mg/dL 8.8-10.2 H [facility] Chloride [Moles/volume] in Serum or Plasma 101 mmol/L 98-107 [facility] Creatinine [Mass/volume] in Serum or Plasma 1.47 mg/dL 0.70-1.20 H [facility] Glucose [Mass/volume] in Serum or Plasma 175 mg/dL 70-140 H [facility] Alkaline phosphatase [Enzymatic activity/volume] in Serum or Plasma 182 U/L 40-129 H [facility] Potassium [Moles/volume] in Serum or Plasma 4.9 mmol/L 3.4-5.1 [facility] Protein [Mass/volume] in Serum or Plasma 6.9 g/dL 6.4-8.3 [facility] Sodium [Moles/volume] in Serum or Plasma 131 mmol/L 136-145 L [facility] Aspartate aminotransferase [Enzymatic activity/volume] in Serum or Plasma 92 U/L <40 H [facility] Urea nitrogen [Mass/volume] in Serum or Plasma 37 mg/dL 8-23 H [facility] Osmolality of Serum or Plasma by calculation 285 mosm/kg 275-300 [facility] Creatinine/Urea nitrogen [Mass Ratio] in Serum or Plasma 25 [facility] Bicarbonate [Moles/volume] in Serum 20 mmol/L 22-29 L [facility] Alanine aminotransferase [Enzymatic activity/volume] in Seru m or Plasma 83 U/L <41 H [facility] Anion gap 3 in Serum or Plasma 10 mmol/L 8-15 [facility] Glomerular filtration rate/1.73 sq M pre dicted among non-blacks [Volume Rate/Area] in Serum or Plasma by Creatinine-based formula (MDRD) 44 mL/min/1.73m2 >60 L [facility] Glomerular filtration rate/1.73 sq M pre dicted among blacks [Volume Rate/Area] in Serum or Plasma by Creatinine-based formula (MDRD) 51 mL/min/1.73m2 >60 L [facility] ID Date Data Source [id number] 04/18/2021 12:52:55 PM [facility] Name Value Range Interpretation Code Description Data Ema rce(s) Supporting Document(s) Elhdm-3-Scblotyynof [Mass/volume] in Serum or Plasma 52 ng/mL <9 H [facility] ID Date Data Source [id number] 04/18/2021 02:25:11 PM [facility] Name Value Range Interpretation Code Description Data Ema rce(s) Supporting Document(s) Lactate dehydrogenase [Enzymatic activit y/volume] in Serum or Plasma by Lactate to pyruvate reaction 230 U/L 122-225 H [facility] ID Date Data Source [id number] 04/14/2021 08:37:38 AM [facility] IR VISCERAL ARTERIOGRAMFINAL RESULTInter preted by:Eulalia Muñiz MDEXAMINATION: VISCERAL ANGIOGRAPHY FOR Y 90 MAPPING AND TRANS-SPLENIC PORTOGRAPHY, 1CLINICAL INDICATIONS: 80-year-old male with 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 Of note, the patient was complaining of bleeding from the ileal conduit stoma for the past two months.Radiation Dosimetry: Fluoroscopy time: 29.7 minutes, Fluoroscopy Dose: 750 mGy.Consent: Following discussion of the risks, benefits and alternatives of the procedure, and written informed consent was obtained. Mod erate Sedation: I performed Moderate Sedation with intravenous 2 mg of Versed and 100 mcg of fentanyl for 180 minutesOperators:IR attending: Eulalia Muñiz MDFellow: Marcos Kaye, MDResident: Riana Alexander M.D. and Adela DanielsTIME OUT: Prior to the procedure a time out was performed in the presence of the patient and all personnel involved in this case. The patient identity, procedure type, procedure side/site, and allergies were verified.TECHNIQUE: Procedures performed:1. Left radial access under direct ultrasound guidance.2. Abdominal Aortogram3. Selective DSA arteriogram of the superior mesentericartery.4. Selective DSA arteriogram of the celiac artery5.Selective DSA angiogram of the splenic artery6 Subselective DSA arteriogram of the common hepatic artery.6. Splenic vein access under ultrasound guidance7. DSA splenic venography8. DSA superior mesenteric venography8. Left radial access hemostasis with a TR band. Position: The patient was transferred to the angiography suite and was positioned supine on the procedural table. The left wrist was prepped and draped using maximum sterile barrier technique. This consisted of cap, mask, hand hygiene, sterile gown and gloves, 2% Chlorhexidine solution for cutaneous antisepsis and occlusive sterile draping of the field.Procedure: The left wrist was evaluated for radial arterial access prior to the procedure. Ultrasound demonstrated a patent left radial artery that measured 28 mm and an ultrasound image of this was saved. A Barbeau test was performed. The patient showed type A waveform. The left wrist was prepped and d raped using standard sterile technique. 2% lidocaine was used for local anesthesia. Direct ultrasound guidance was used to perform single wall left radial artery puncture and an image of this was saved into PACS. A 0.018 wire was placed through the wire to secure access. After removing the needle a 5 Fr slim hydrophilic radial access vascular sheath was placed over the wire. At this point, 200 mcg of nitroglycerin and 25 mg of hydralazine were intravenously infused. A total of 3000 units of heparin was intravenously administered. Then a 0.035 Bentson wire was advanced through the left radial artery sheath. Over a 0.035 Bentson wire, a 5 Fr Jennifer catheter was advanced into the abdominal aorta and an abdominal aortogram was obtained (20 cc/sec for 30 cm). This demonstrated origins of the visceral arteries. Then the catheter was advanced to select the superior mesenteric artery artery and an angiogram was performed (5cc/sec for 25 cc). This demonstrated patent and standard superior mesenteric artery anatomy. No portal vein was visualized, suggestive of hepatofugal flow.Following this, a 5 Fr Jennifer catheter was retracted within the abdominal aorta to select the celiac artery and a selective angiogram was performed (5cc/sec for 15 cc). This demonstrated patent and standard hepatic arterial anatomy. Opacification of the portal venous system is noted, suggestive of arterial portal shunting. To visu anum the main portal vein, the catheter was advanced into the splenic artery and a splenic arteriogram obtained (5 cc/s for 15 cc). No portal vein could be visualized, suggestive of hepatofugal flow. The catheter was then introduced into the common hepatic artery and angiogram obtained (4cc/sec for 12 cc). This demonstrated faint opacification of the right portal system, suggestive of a tumor thrombus. The left portal vein was clearly visualized. Of note, a large filling defect was seen within the main portal vein, suggestive of a thrombus (tumor vs bland). Since arterial portal shunting was quite significant, a decision was made not to infuse technetium 99m MAA.To further investigate the extent of portal vein occlusion and possible stoma varices, consent for direct portography via a trans-splenic approach was obtained from the patient's family. Under ultrasound guidance access to the intraparenchymal splenic vein was obtained with a micropuncture set. An AccuStick system was used to upsize the tract. Through the AccuStick sheath, a 4 Iranian Kumpe catheter was introduced into the splenic vein and splenic venogram obtained (hand run). 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 The catheter was further advanced into the superior mesenteric vein and venogram (hand run) obtained. This demonstrated shunt varices revascularization of multiple superficial veins. Since all the inflammation the study was obtained. A decision was made to terminate the procedure.The left radial artery sheath was removed. Hemostasis was achieved utilizing a TR band insufflated to 14 cc of air and which was deflated later as per protocol. IMPRESSION:1. Visceral arteriogram demonstrated significant arterial portal shunting with visualization of the left portal vein and a large filling defect within the main portal vein (bland thrombus versus tumor thrombus). For this reason, a decision was made not to infuse technetium 99m MAA. 2. 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 Stoma varices visualized on superior mesenteric venographyThis document has been electronically signed by Eulalia Muñiz MD on 04/14/2021 8:35 AM Name Value Range Interpretation Code Description Data Ema rce(s) Supporting Document(s) ID Date Data Source [id number] 04/12/2021 12:02:55 PM [facility] Name Value Range Interpretation Code Description Data Ema rce(s) Supporting Document(s) Progress Note [facility] HNNSYe9cNxDJAlFu14/MMGopGSLtg4XtSFmyRRv2UJyvRCSpJ6OxAQH1hC9gOFB7TTdGYuLcJxDuHFHp lbm [file] [id number] ID Date Data Source [id number] 04/09/2021 08:41:20 AM [facility] Name Value Range Interpretation Code Description Data Ema e(s) Supporting Document(s) History and Physical [facility] TALFCl2oVuJPLiIz33/HQKapSIEwy7MvVYpdHMt9EFrnDVSkZ9WiZGZ2cN6jQNZ6HPnDWqVsEdEgFBH0 lbm [file] [id number]/restaurant crew+W//[id number] [file] ID Date Data Source [id number] 04/09/2021 08:22:57 AM [facility] Name Value Range Interpretation Code Description Data Ema rce(s) Supporting Document(s) Leukocytes [#/volume] in Blood by Automated count 3.9 10*3/uL 4-10 L [facility] Erythrocytes [#/volume] in Blood by Automated count 2.94 10*6/uL 4.6- 6.1 L [facility] Hemoglobin [Mass/volume] in Blood 8.3 g/dL 13.5-18 L [facility] Hematocrit [Volume Fraction] of Blood by Automated count 24.7 % 4 1-53 L [facility] Erythrocyte mean corpuscular volume [Entitic volume] by Auto mated count 84.2 fL 80-96 [facility] Erythrocyte mean corpuscular hemoglobin [Entitic mass] by Automated count 28.1 pg 27-33 [facility] Erythrocyte mean corpuscular hemoglobin concentration [Mass/volume] by Automated count 33.4 g/dL 32.0-36.0 [facility] width [Ratio] by Automated count 16.4 % 11.5-14.5 H [facility] Platelets [#/volume] in Blood by Automated count 133 10*3/uL 150-400 L [facility] Differential cell count method - Blood [facility] Neutrophils/100 leukocytes in Blood by Automated count 75 % [facility] Lymphocytes/100 leukocytes in Blood by Automated count 7 % [facility] Monocytes/100 leukocytes in Blood by Automated count 10 % [facility] Eosinophils/100 leukocytes in Blood by Automated count 6 % [facility] Basophils/100 leukocytes in Blood by Automated count 2 % [facility] Neutrophils [#/volume] in Blood by Automated count 3.00 10*3/uL 1.8-7 .0 [facility] Lymphocytes [#/volume] in Blood by Automated count 0.26 10*3/uL 1.2-4 .0 L [facility] Monocytes [#/volume] in Blood by Automated count 0.39 10*3/uL 0-0.8 [facility] Eosinophils [#/volume] in Blood by Automated count 0.24 10*3/uL 0-0.5 [facility] Basophils [#/volume] in Blood by Automated count 0.06 10*3/uL 0-0.2 [facility] Nucleated erythrocytes/100 leukocytes [Ratio] in Blood by Automated count 0 /100{WBCs} 0-0 [facility] ID Date Data Source [id number] 04/09/2021 08:38:37 AM EST [facility] Name Value Range Interpretation Code Description Data Ema rce(s) Supporting Document(s) Prothrombin time (PT) 14.9 s 11.6-14.0 H [facility] INR in Platelet poor plasma by Coagulation assay 1.21 [facility] Routine intensity oral anticoagulation I NR is typically 2.0-3.0. Target INR must be clinically individualized. ID Date Data Source [id number] 04/09/2021 08:43:53 AM [facility] Hospital Name Value Range Interpretation Code Description Data Ema rce(s) Supporting Document(s) Albumin [Mass/volume] in Serum or Plasma by Bromocresol green (BCG) dye binding method 3.0 g/dL 3.5-5.2 [facility] Bilirubin.total [Mass/volume] in Serum or Plasma 0.5 mg/dL <1.2 [facility] Calcium [Mass/volume] in Serum or Plasma 10.7 mg/dL 8.8-10.2 H [facility] Chloride [Moles/volume] in Serum or Plasma 102 mmol/L 98-107 [facility] Creatinine [Mass/volume] in Serum or Plasma 1.50 mg/dL 0.70-1.20 H [facility] Glucose [Mass/volume] in Serum or Plasma 114 mg/dL 70-140 [facility] Alkaline phosphatase [Enzymatic activity/volume] in Serum or Plasma 181 U/L 40-129 H [facility] Potassium [Moles/volume] in Serum or Plasma 4.9 mmol/L 3.4-5.1 [facility] Protein [Mass/volume] in Serum or Plasma 7.4 g/dL 6.4-8.3 [facility] Sodium [Moles/volume] in Serum or Plasma 130 mmol/L 136-145 L [facility] Aspartate aminotransferase [Enzymatic activity/volume] in Serum or Plasma 90 U/L <40 H [facility] Urea nitrogen [Mass/volume] in Serum or Plasma 55 mg/dL 8-23 H [facility] Osmolality of Serum or Plasma by calculation 286 mosm/kg 275-300 [facility] Creatinine/Urea nitrogen [Mass Ratio] in Serum or Plasma 37 [facility] Bicarbonate [Moles/volume] in Serum 15 mmol/L 22-29 L [facility] Alanine aminotransferase [Enzymatic activity/volume] in Seru m or Plasma 66 U/L <41 H [facility] Anion gap 3 in Serum or Plasma 13 mmol/L 8-15 [facility] Glomerular filtration rate/1.73 sq M pre dicted among non-blacks [Volume Rate/Area] in Serum or Plasma by Creatinine-based formula (MDRD) 43 mL/min/1.73m2 >60 L [facility] Glomerular filtration rate/1.73 sq M pre dicted among blacks [Volume Rate/Area] in Serum or Plasma by Creatinine-based formula (MDRD) 49 mL/min/1.73m2 >60 L [facility] ID Date Data Source [id number] 04/09/2021 07:41:57 AM EST [facility] Name Value Range Interpretation Code Description Data Ema rce(s) Supporting Document(s) Glucose [Mass/volume] in Capillary blood by Glucometer 106 mg/dL 70- 140 [facility] ID Date Data Source [id number] 04/08/2021 12:00:00 AM EST eCW1 ([facility]) Name Value Range Interpretation Code Description Data Ema rce(s) Supporting Document(s) 2.4 1.8-2.4 MAGNESIUM LEVEL eCW1 ([facility]) ID Date Data Source Basic Metabolic Profile (BMP) 04/08/2021 12:00:00 AM EST eCW 1 ([facility]) Name Value Range Interpretation Code Description Data Ema rce(s) Supporting Document(s) 155 70-100 GLUCOSE, FASTING eCW1 ([facility]) 45 7-18 BLOOD UREA NITROGEN eCW1 ([facility]) 135 136-145 SODIUM LEVEL eCW1 ([facility]) 41.0 >42 GLOMERULAR FILTRATION RATE eCW 1 ([facility]) 1.72 0.70-1.30 CREATININE FOR GFR eCW1 ([facility]) 5.2 3.5-5.1 POTASSIUM SERUM eCW1 ([facility]) 20 21-32 CARBON DIOXIDE LEVEL eCW1 ([facility]) 11.0 8.8-10.2 CALCIUM LEVEL eCW1 ([facility]) 107 98-107 CHLORIDE LEVEL eCW1 ([facility]) ID Date Data Source CBC with Differential 04/08/2021 12:00:00 AM EST eCW1 ([facility]) Name Value Range Interpretation Code Description Data Ema rce(s) Supporting Document(s) 3.01 4.30-6.10 RED BLOOD COUNT eCW1 ([facility]) 4.0 4.0-10.0 WHITE BLOOD COUNT eCW1 ([facility]) 8.3 13.5-17.5 HEMOGLOBIN eCW1 ([facility]) 86.0 80.0-96.0 MEAN CORPUSCULAR VOLUME e CW1 ([facility]) 25.9 42.0-52.0 HEMATOCRIT eCW1 ([facility]) 178 150-450 PLATELET COUNT, AUTOMATED eCW1 ([facility]) 27.6 27.0-33.0 MEAN CORPUSCULAR HEMOGLOB IN eCW1 ([facility]) 15.9 11.5-14.5 RED CELL DISTRIBUTION WID TH eCW1 ([facility]) 32.0 32.0-36.5 MEAN CORPUSCULAR HGB CONC eCW1 ([facility]) 66.1 36.0-66.0 NEUTROPHILS % eCW1 ([facility]) 10.4 24.0-44.0 LYMPH % eCW1 ([facility]) 14.1 2.0-8.0 MONO % eCW1 ([facility]) 7.3 0.0-3.0 EOS % eCW1 ([facility]) 1.8 0.0-1.0 BASO % eCW1 ([facility]) 2.6 1.5-8.5 NEUTROPHILS # eCW1 ([facility]) 0.4 1.5-5.0 LYMPH # eCW1 ([facility]) 0.3 0.0-0.5 EOS # eCW1 ([facility]) 0.6 0.0-0.8 MONO # eCW1 ([facility]) 0.1 0.0-0.2 BASO # eCW1 ([facility]) ID Date Data Source [id number] 04/05/2021 12:51:04 PM EDT [facility] Name Value Range Interpretation Code Description Data Ema rce(s) Supporting Document(s) Progress Note [facility] UIHYCa4mFaOCAiYh02/KMTijMGWzm3FrNSxlUOh3LJdeRPVrP2MxGPX8qV7rDEO8CItSNnFnCxGuCYD2 lbm HuQqhJMrQlDMIzXsqSAhLxDThkTqugzWJaJJ7JnDY1SFLfK02dYUDxEZCvW6CyVHW7OAc+Yn5RZVOjkC IwSO8VAlnG3ObcTaqHGT9zbh0ntEkCMfB8x4pgw0bLNFqRWHcvB8Iq1InTq26z9+faJin/rtru8eBiCx jWVFUTRfBkd+vLeR6tqH3GWIUyd2G+9BrAI7H/628D t3F8FWy/hsbczxQpFr7MTgII2ZDUFTrBv1Vi/dY2mbO175lOrcsH55CESQ8J4UnBY/3By+ZzTo9QNI45 DMgyUGLhPvyZOMFD0DEQ5Lnmctz4mbLKzK8YXngZPJzDswu5XCGLAKyhivXMNR1+kaytKcv2IZFMeiHx DD39GDCSSd4fOTdUTon//4drju30gXUNLDq74HkNdl HXLRfHd3JGd+MVdqLQ9SEkjtUQeO8LmcW6ZefOG97B4PbdDxs5IIHsU8/+IhZDu/NJ5oyqKYMlUVfaOx Dlsh45JHzUY0b+QKsiflbjeLYSx/E0GS2i+f09vkpeU3YUkBhD8yezZ57xkToTNkU+7hfoSxpXFV7kNl wQzRoU5o3KOv2SAhvd9fD5Jl5UM0Jhj2LGGgI602w/ okcCjQmSx0WvJaIAOmfyH8s/DGvnHZ+4jBrGRsv1tl1GaiAFxlHzg3y9As40NhBOIK3Dq0X3dKadRfBd f6PagvHuwL3bwv155Z4pGEHMVXa7AXMsV9eqaWJSzYSnFX7d9jxQj3QYgB2WLqcMXmxCEcXTN5Zfw/RR owsYskJYYYxeRgL9BNPKR8fheIbLCl73XWN7NhjSsG 18PaRXeViCJAqZU0OiISrmQ06N53M7D5TkfgPPLROvgGafwzLLfpHxQRvxUNmnXF8wHEYCDEQJpcREv4 MRVdbHsjQbJdSve70Z684618kbUf7yz0vRrWVYG5N/tE4a5bnVPdZghN8sLOeZPQprzM0+R/WvDDxfJF /Mb9zppvMjtBrGb+lEtAUCJNJrf7XUR5Pt3KF+3/HINOJOSA [file] CrMEYrNxzfOsAsIR1NDg1AEbJ4MHK6lLJgJl6MJUf0DESLRxFqVH7TMKy= ID Date Data Source [id number] 04/05/2021 12:51:00 PM EDT [facility] Name Value Range Interpretation Code Description Data Ema rce(s) Supporting Document(s) SARS-CoV-2 RNA 2019 nCoV Real-Time RT-PCR: NOT DETECTED [facility] lab was ordered by [facility] and reported by [facility]. 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 [facility] Patient has symptoms related to [facility] When did you start to experience these symptoms [Date and time] [Phen X] [facility] Patient was hospitalized because of this condition [facility] patient was admitted to ICU for condition [facility] Patient resides in a congregate care setting [facility] status [facility] ID Date Data Source [id number] 03/31/2021 05:03:49 PM EDT [facility] Name Value Range Interpretation Code Description Data Ema rce(s) Supporting Document(s) Progress Note [facility] UQVTGl2tNqADQyPb29/ENPtrGWMvu8WxHZysUYj9REayRBJfR7JkVVW0hD2lDXJ8TJvCOqBcHbPiJEWk lbm [file] ICAgICAgICAgICAgICAgICAgICAgICAgICAgICAgIC AgICAgICAgICAgICAgICAgICAgICAgICAgICAgICAgICAgICAgICAgICAgICAgICAgICAgDQogICAgIC AgICAgICAgICAgICAgICAgICAgICAgICAgICAgICAgICAgICAgICAgICAgICAgICAgICAgICAgICAgIC AgICAgICAgICAgICAgICAgICAgICAgICAgICAgICAg ICAgDQogICAgICAgICAgICAgICAgICAgICAgICAgICAgICAgICAgICAgICAgICAgICAgICAgICAgICAg ICAgICAgICAgICAgICAgICAgICAgICAgICAgICAgICAgICAgICAgICAgICAgDQogICAgICAgICAgICAg ICAgICAgICAgICAgICAgICAgICAgICAgICAgICAgIC AgICAgICAgICAgICAgICAgICAgICAgICAgICAgICAgICAgICAgICAgICAgICAgICAgICAgICAgDQogIC AgICAgICAgICAgICAgICAgICAgICAgICAgICAgICAgICAgICAgICAgICAgICAgICAgICAgICAgICAgIC AgICAgICAgICAgICAgICAgICAgICAgICAgICAgICAg ICAgICAgDQogICAgICAgICAgICAgICAgICAgICAgICAgICAgICAgICAgICAgICAgICAgICAgICAgICAg ICAgICAgICAgICAgICAgICAgICAgICAgICAgICAgICAgICAgICAgICAgICAgICAgDQogICAgICAgICAg ICAgICAgICAgICAgICAgICAgICAgICAgICAgICAgIC AgICAgICAgICAgICAgICAgICAgICAgICAgICAgICAgICAgICAgICAgICAgICAgICAgICAgICAgICAgDQ ogICAgICAgICAgICAgICAgICAgICAgICAgICAgICAgICAgICAgICAgICAgICAgICAgICAgICAgICAgIC AgICAgICAgICAgICAgICAgICAgICAgICAgICAgICAg ICAgICAgICAgDQogICAgICAgICAgICAgICAgICAgICAgICAgICAgICAgICAgICAgICAgICAgICAgICAg ICAgICAgICAgICAgICAgICAgICAgICAgICAgICAgICAgICAgICAgICAgICAgICAgICAgDQogICAgICAg ICAgICAgICAgICAgICAgICAgICAgICAgICAgICAgIC AgICAgICAgICAgICAgICAgICAgICAgICAgICAgICAgICAgICAgICAgICAgICAgICAgICAgICAgICAgIC HfDOr1E8qcSCPiFKHePL1uLGj4Lg6+UVeVGtOcCRD7vgMyzE9IHO4hk4ViXFyjMKSve5KeYHt0HQ5XKE BdWOcfZI1MURborc1LLYTwWUOkcDKRu8yyPiZrLWR1 YBYiWgrtXF1VFJYbL3muojAiKNAgZZMWOT0JMnApO2HurD49FVBTVd4+BHibfzHkYqpRLsE6WMMux0Pm FMc2MM2CLRNwVjcxa8RaOtTsDVGAWAinMV7WEJW2ZCFrYDHwIb8POZKqP069pnRgAF2CLe6XNmDaPD2q eh1AIsBnYWDlAygJFvd2DJkxJK1JfGYjJWjFcf1wkv LeudPTi4JecnEoxVCLMMy7cFLHMURtTQCDAlOopZMlHX4eYR5lNVXsEQGhAuL2VPNNKY3JSGNePMJwqN RkNYOdDHEEIW8TDOshJNR3ILReukDzkZJcWPheOT2YYCUngkInGUwrPAIEQVd+Kt8ODC7db5HqTRtqES GyFF6qch2QASjRKaRaM3L7rVUnA4R2DTokNy0YEJLt IOTgIKkrIBJVJKghEL4RCC2pouD1BU6IuXGrFMDsSOSnmPXiKGg9G85ygTVkPNvgUG4UIQC+Earl+Pg0K JYCeCBBnWDBwGoAaLZIAMsOuB3IsA9AYh2NrS6WeUF11yXyqbtBpAIeaRV1VVY8cNDBpQWLSJI5WfBOq gU0wojJeNWZyNUTGZxZoG00yjMJnPEToCFL5VISvJo 8MTNXeG1SyziGqjEyarjNqEQJsDRVRQA6CSBiigxZnmMLnrUlqSD88jVzyTG0HCs5BZrTvJL7yko9IzL GzGq0WLNEyXg0SNNNpBUZoSOJsWNB1XTFzTrFbVLcsCSQmIDDoTVU3ARKnGPWeYG5BMxQzHQSaZEjjKg TiKILmBTDyjy9EVBIjMFMhYEs7CEKvVZMoUYKnVXdd VIUdVTChYMN9NNGeMRYtTI0PHuIgHCXzRWP5YYidDXJlGCZqbd7ZCWDjQXWeSfL6TiYmJQQiWCVuNCod LVCaDWTdCSJhZDUcQNDbZO3XEkZwIAYoMEOeZDvuGTQyHZRyxa7WONSrKAXtNtS2FkTjRFFrGRQqBDqu NFTgBFQ2OfR8IMWsQTYvTW1KYtImHLHzWHF8GJntQG NwVEDbls1LQDHfRAIzJCbbZKUxVFXaECTcYLesBLSvKZV0HKn8XMRcHBEaEC2AInXmRPGmOBT1LAHsWR YaBCLfhq4MOBXtGQZfDcEjKNMoIMAeUUIsISesEHQkNRN6GLB5ITGlKPZwZH2ZGfPqYPSvQZhvCPYvAQ JoLNMqsu4NSBYsLWUsJuPpNTHuLMVzJHItENrfHDWv UDA5KRB9PVLdVCYeDK8NDdEfVAYeVBw0WVqcMKShHDNeio0TDPPbJESeKMU6CPQxULThKNPmJCl7riQq eRYtSLq9SZ8WZ7AikyJbFcZZIs7Ag546RUZiLOXmKz4QI7onSr8qEVKpFGQZDx6YTTt5YEE9CND7G0Fx RKPoMJWuUbS9LWLiJELvZHB3RtZ2RTQ+PZo0ERzfXW g4LjCoWWAnWiNeBcCaAUW9IGL2TaleYspcHZ1zKAQFDp8+ARpcqGXoePdbATNTZtW6Kvo2GCtmWRGYFz 0K ID Date Data Source [id number] 03/31/2021 05:03:44 PM EDT [facility] Name Value Range Interpretation Code Description Data Ema rce(s) Supporting Document(s) Progress Note [facility] KREFRd9bWwRGJdIj10/JPSpkXYOtp6LpPIgmOJw3LVtiDYUvS2NbRSU7cR3mEUF0FCbWQyCeUhNfKOYh lbm [file] ICAgICAgICAgICAgICAgICAgICAgICAgICAgICAgIC XdEHZvFBPeJUUnAHHhOR6UKMErGRVpDOSlDQVnRKFsWQHsVEPxPJXaRVAfDVEyTDRqKXLuACJwOOUmCG SjAWHtJJXvASXuVVHrWTOsCLQuDFBkBZFuAWMeKCEtHEKiRMUwQAJuYAYtDFSfGTUaWELfLQZcNV2OTY AgICAgICAgICAgICAgICAgICAgICAgICAgICAgICAg ICAgICAgICAgICAgICAgICAgICAgICAgICAgICAgICAgICAgICAgICAgICAgICAgICAgICAgICAgICAg LMGrRGCgOO9AYPCeTDMbEZZpPOXwURKgZWHmLSYjEIGlPESbDHTwGFEkONJmOCDfKFDiCWRrKELqNEMi ICAgICAgICAgICAgICAgICAgICAgICAgICAgICAgIC EbWDYuMFCnOEFaZLAoFHZpSR6WJADqLYRfTIJfDOIjOTCqWTApPMJeBUPdWULmEQAjIFDjDDAaDQUcQP AgICAgICAgICAgICAgICAgICAgICAgICAgICAgICAgICAgICAgICAgICAgICAgICAgICAgICAgICAgIA 0KICAgICAgICAgICAgICAgICAgICAgICAgICAgICAg ICAgICAgICAgICAgICAgICAgICAgICAgICAgICAgICAgICAgICAgICAgICAgICAgICAgICAgICAgICAg RPHtMUOgWSSjXJ2WRFGwDMKrOGVpCYBgRRQjUBWaYNKmVVNlESUzLSGlCGQbCIDtVLLgVPTjTTSqPMPb ICAgICAgICAgICAgICAgICAgICAgICAgICAgICAgIC NxWXEyYFLyMQSjKDSuLVAnTWMbMB2ACAQcNFWnVVHkDFVmQIEpSKAuXUOpIQLuUAYjAAMkEATlMRSoZV AgICAgICAgICAgICAgICAgICAgICAgICAgICAgICAgICAgICAgICAgICAgICAgICAgICAgICAgICAgIC QqJY0TGAMoQHXbXPSaLVYnQQEeILRqNMAnQRPmBPYd ICAgICAgICAgICAgICAgICAgICAgICAgICAgICAgICAgICAgICAgICAgICAgICAgICAgICAgICAgICAg YDMjEKQoKTFrGURfKU9TVAKyLNVgMEMmTLCxYBHjSBXhDNOlXDPvWVOrLBZcTMUlQLFbYPNjRIHuGDHf ICAgICAgICAgICAgICAgICAgICAgICAgICAgICAgIC TlRNDsNLAqRKQlSKGuSKTeJHNaOQMmZQ8LUZ85hNHxl9H3QUXdZZ2hgzf/Pl1MJUlnfeAatNQiTU0PRi HvGL7xxr6FBaWeIS0btw4REIgSHpCxY6X3rDPgYODzNTAPTuRjL56iWUnfTb82OJyxEYFfCdPaIJy3Es 8TJeMbV3qnZYCpCeE4IXIoKdX2SUJaWnM7UZYbXzWs GTSlEDFqBHXlYCJSUA6XOyRsT8HzgZ13XLBDDb0+EGhzowApRjcTIaX4ETNvj3BoTPf9HS5YVUGaVvig p8YfRobaQRLVKVwqJI8OATB7ILL9ZQGxAv4OTYQjQ864foCfZH4SZc0VBxUjAX0bra2SNyaaOVHaWflA Fqg0XDzjVD3BnPIaZZfByd8fhuWojoEUp1EzjdKgvZ GMrclwmVzlSMvvZlLor8IyFKHRCBMemNNaIU6oNS1iNBLbPKSjXhZ0AKUXMB5XGCRrANFjcOZgKURzKP PFPR3OJWxvMMM8IQUfxtQwdJBkJQzcSY4HZIKfvoUsKgehFEEKCCk+Pr0KZU8eu3DiPHywTHIiDJ6cvk 0KYNmRGiXvC5V9qFXiX3C3VXthVv0QBWByBSFyLpRq XGOIMBlrPN9ZZI0qyrH9JX5FgGIcYHHrGHGlwKDtZAh4U84tiSWvBTdiBG9THGH+Earl+Dp1WPGDeYSYs NPOtTqCkPMNWMyAjV4BxY9FSw5HrC7VyRC20iRwrqpXsYGdsUK1FUC0mNQTfVOUITB6BdRPqoM0oasGc CnBpCSGUKlDiG98vrIXaCFQcXXD2RMZlIq1DQBYqG0 VvkxWpaLwxeeOsNJVxVHVBTZ5OBKjeknCoaYNodRccOV51rZzeTE8DQm5VIqYkUD6ocl2ZgKDsAk5LAW OjPW8VBZUpIDSzHTTjLZC7IKTzZqYqKIxnWDIsTJTxJTL8WJXqVJWsZT5NCfRjFFLwQcJpHAPgARXpDG Wsoh9WLHZkOOQtSdVtQDDvFBOmAKFpMKuxORMyDYWd CJA4RZHlOIPyTH7BRgSbCTAfWBU9BSXxRNZtFJVhgf9UJAGhCKFnHPU8QIBgAXVbSFZbVVzcKOWqBNS2 SwY5YBYjFGTvBC7BHxXtWFPgSIv0DuGjLYXgBUMtds7QKATxWKRcSQPdDEIgLBBnCGSbVHimRALlSAQc FGN6WBPoNGXhIO5WLzPiKGWyWSM2BGRlGIMfXMCbpe 2TYVTqALTmZzu4TdUxSQEmOGHcOSgdQJZgBMQ2XPY9LYIxVIGoDO8IJuMeOKFaJJWnOJHgVRBcEUTvex 5RJREmNXKmYaLyDZEuWNGuBNTsIRzaMXUfHYO2TTKpWIJdHCDuFK7IGfEfCCLcRET7TJDlYGGhCGUcgl 7MRRYkISTfXoW4JpDrGIPwGFKuNBauYNPbDKI8MnV7 JIBwGIQxAM7GEmPmJYTcGFo5AsReVDBcCRIyly5SJENpGETuJZL1YtTbFPPfSIFhBTyzZTYuNIZ3Wuw8 MXFkZFEuJT6KKaUjKESoCwr5DOinIAZxIFVkky4UTEDjPJQmCOQ8GrJmFAVtGFVxDZsxXSLcHPPgHasn JLRqVVDiVA1BOcXjCDRrOgX5EUEiXWFuCYRlvr1QOT HbUSJoHeU4LSHrEVObSRAmEUgdEVAyKDKgUiU4WPMiANRxOP3RHoSjYIOmSrRgHWWzJONkJGRaax5KsH OilJhuen2SZYdWJr3KgObqFHWiDOvyHs1kqGNeMFZwMKADHg8BcpApNTIeKPWOCJgfRNIuQPPzAbQcXI L2AAQmIYXoPXKvHofxXCN3Xov8TmZhVCIuPmZ3GOTc EDD3Gnq7CeEvBQDpBSHnLABwRVmiNzpdYFEqTYM+ZK4kYYh+Qc5Xb8NpnxB4bjZrUAqzLeNpUI5GOZKQ T0YNCg== ID Date Data Source [id number] 03/31/2021 11:27:34 AM EDT [facility] Name Value Range Interpretation Code Description Data Ema rce(s) Supporting Document(s) POC GLUCOSE 206 mg/dL (70-99) H [facility] NOTIFIED PROVIDERNOTIFIED NURSEPERFORMED BY CLINICAL STAFF ID Date Data Source [id number] 03/31/2021 09:33:13 AM EDT [facility] Name Value Range Interpretation Code Description Data Ema rce(s) Supporting Document(s) WBC 4.7 10*3/uL (4.1-11.0) [facility] [place] RBC 3.05 10*6/uL (4.60-6.10) L [facility] HGB 8.5 g/dL (13.5-18.0) L [facility] PATIENT TRANSFUSED HCT 25.8 % (41.0-53.0) L [facility] PERFORMED AT [address] [facility] [address] MCV 84.6 fL (80.0-95.0) [facility] MCH 28.0 pg (27.0-32.0) [facility] MCHC 33.0 g/dL (32.0-36.0) [facility] RDW 16.2 % (10.5-14.5) H [facility] PLT 167 10*3/uL (150-450) [facility] MPV 8.8 fL (7.1-10.7) [facility] ID Date Data Source [id number] 03/31/2021 08:41:39 AM EDT [facility] Name Value Range Interpretation Code Description Data Ema rce(s) Supporting Document(s) POC GLUCOSE 122 mg/dL (70-99) H [facility] PERFORMED BY CLINICAL STAFF ID Date Data Source [id number] 03/30/2021 04:54:35 PM EDT [facility] Name Value Range Interpretation Code Description Data Ema rce(s) Supporting Document(s) POC GLUCOSE 174 mg/dL (70-99) H [facility] PERFORMED BY CLINICAL STAFF ID Date Data Source [id number] 03/30/2021 12:43:48 PM EDT [facility] Name Value Range Interpretation Code Description Data Ema rce(s) Supporting Document(s) POC GLUCOSE 167 mg/dL (70-99) H [facility] NOTIFIED NURSEPERFORMED BY CLINICAL S TAFF ID Date Data Source [id number] 03/30/2021 12:39:34 PM EDT [facility] Name Value Range Interpretation Code Description Data Ema rce(s) Supporting Document(s) WBC 3.2 10*3/uL (4.1-11.0) L [facility] [place] RBC 2.36 10*6/uL (4.60-6.10) L [facility] HGB 6.6 g/dL (13.5-18.0) L [facility] RESULT(S) CALLED TO AND READ BACK BYCarlson WirelessSS ICA 4S AT 1237 ON 03/30/[place] [address] HCT 19.9 % (41.0-53.0) L [facility] [address] [facility] [place] [id number](S) CALLED TO AND READ BACK BYJESSICA 4S AT 1237 ON 03/30/[place] [address] MCV 84.3 fL (80.0-95.0) [facility] MCH 27.9 pg (27.0-32.0) [facility] MCHC 33.1 g/dL (32.0-36.0) [facility] RDW 16.8 % (10.5-14.5) H [facility] PLT 141 10*3/uL (150-450) L [facility] MPV 9.3 fL (7.1-10.7) [facility] ID Date Data Source [id number] 03/30/2021 08:35:32 AM EDT [facility] Name Value Range Interpretation Code Description Data Ema rce(s) Supporting Document(s) POC GLUCOSE 119 mg/dL (70-99) H [facility] NOTIFIED NURSEPERFORMED BY CLINICAL S TAFF ID Date Data Source [id number] 03/30/2021 05:31:19 AM EDT [facility] Name Value Range Interpretation Code Description Data Ema rce(s) Supporting Document(s) URINE WBC (0-5) [facility] URINE RBC (0-2) [facility] BACTERIA 2+ [HPF] [facility] ID Date Data Source [id number] 03/30/2021 05:05:22 AM EDT [facility] Name Value Range Interpretation Code Description Data Ema rce(s) Supporting Document(s) COLOR [facility] PERFORMED AT [address] [facility] [address] APPEARANCE [facility] SPEC GRAV URINE 1.011 (1.003-1.030) [facility] PH URINE 6.0 (5.0-7.5) [facility] LEUK ESTERASE (NEG) [facility] CRITERIA FOR CULTURE NOT MET.CULTURE CAN BE ADDED WITHIN 36 HOURS OFCOLLECTION. NITRITE URINE (NEG) [facility] PROTEIN URINE (NEG) [facility] GLUCOSE URINE (NEG) [facility] KETONE URINE (NEG) [facility] [place] UROBILINOGEN 0.2 mg/dL (0-1.0) [facility] [place] BILIRUBIN URINE (NEG) [facility] BLOOD/HGB URINE (NEG) A [facility] ID Date Data Source [id number] 03/31/2021 12:30:00 AM EDT [facility] [place] [address] PATIENT NAME: EL LINARES OF : 2REPORT: ADMISSION NOTEPATIENT NUMBER: [id number] STATUS: SDMEDICAL RECORD NUMBER: [id number] OF ADMISSION: 03/29/2021OOM: 02 PRIMARY CARE PROVIDER: Анна Braun MD UROLOGIST: Dr. Walker. The patient also follows up with [facility]. CHIEF COMPLAINTS: Recurrent bleeding from the ostomy. HISTORY OF PRESENT ILLNESS: 80-year-old unfortunate male with history of prior bladder cancer requiring a radical cystoprostatectomy with ileal conduit and recently diagnosed hepatocellular carcinoma and scheduled to receive radiation therapy at [facility] presented to the ED with reports of recurrent bleeding from ostomy since Thursday morning. The patient has had multiple episodes of this and was discharged [facility] 03/12/[facility]21 with the similar episode requiring [...] portal vein thrombosis, pending radiation therapy at [facility].6. Chronic ascites, on diuretics.7. Recurrent bleeding [...] normal.WBC of 4, H and H of 12/20 with platelets of 173. ASSESSMENT AND PLAN: 80-year-old unfortunate male with history of bladder cancer requiring ileal conduit, recently diagnosed hepatocellular carcinoma with liver cirrhosis with ascites and recurrent bleeding from the ostomy, discharged from [facility] about three weeks ago and required pressure [...] MD Dictated: 03/30/2021 3:44DT: 03/30/2021 3:51Job #: [id number]: Анна Braun MD NOTE: [facility] computer generated reports are not confirmed orauthenticated unless they are signed by the providerElectronically Authenticated and Edited by:GARETH MONTANA MD on 03/31/2021 12:30 AM EDT Name Value Range Interpretation Code Description Data Ema rce(s) Supporting Document(s) ID Date Data Source [id number] 03/30/2021 01:21:00 AM EDT [facility] Name Value Range Interpretation Code Description Data Ema rce(s) Supporting Document(s) SARS coronavirus 2 RNA [Presence] in Res piratory specimen by JUSTEN with probe detection NOT DETECTED [facility] This lab was reported by [facility]. ID Date Data Source [id number] 03/30/2021 09:28:37 AM EDT [facility] Name Value Range Interpretation Code Description Data Ema rce(s) Supporting Document(s) SPECIMEN DESCRIPTION [facility] [place] COVID19 RESULT (NDET) [facility] [place] THIS ASSAY AMPLIFIES AND DETECTSTHE TARG ET RNA USING REAL-TIME PCR.TESTING PERFORMED ON THE [employer]ube[employer] COMMENT [facility] [place] UNDER AN EMERGENCY USE AUTHORIZATION(EUA ) FOR THE DETECTION AND/OR DIAGNOSISOF THE VIRUS THAT CAUSES COVID-19.NEGATIVE 2019_NCOV RT-PCR RESULTS DONOT PRECLUDE 2019_NCOV INFECTION ANDSHOULD NOT BE USED THE SOLE BASISFOR PATIENT MANAGEMENT DECISIONS. FIRST TEST [facility] [place] [facility] [place] SYMPTOMATIC [facility] [place] DATE OF SYMPT ONSET [facility] HOSPITALIZED [facility] [place] [facility] CONGREGATE CARE SET [facility] ID Date Data Source [id number] 03/29/2021 11:53:30 PM EDT [facility] SPEC EXP DATE 1PATI ENT ABO/Rh A POSITIVEANTIBODY SCREEN NEGATIVETESTING SITE PERFORMED AT [address] [place] [address] BANK COMMENT BLOOD TYPE CONFIRMED. Name Value Range Interpretation Code Description Data Ema rce(s) Supporting Document(s) TYPE AND SCREEN [facility] [place] PATIENT ABO/Rh A POSITIVE ID Date Data Source [id number] 03/29/2021 11:10:22 PM EDT [facility] [place] Name Value Range Interpretation Code Description Data Ema rce(s) Supporting Document(s) TOTAL PROTEIN 7.0 g/dL (6.4-8.2) [facility] ALBUMIN 2.2 g/dL (3.2-4.5) L [facility] GLOBULIN 4.8 g/dL (2.7-4.3) H [facility] ALB/GLOB RATIO 0.5 RATIO [facility] BILIRUBIN,TOTAL 0.4 mg/dL (0.0-1.0) [facility] [place] PLEASE NOTE:Total bilirubin results may be falselyelevated in patients taking Eltrombopag. BILIRUBIN,CONJUGATED 0.2 mg/dL (0.0-0.3) [facility] BILIRUBIN,UNCONJ. 0.2 mg/dL (0.0-0.7) [facility] ALKALINE PHOSPHATASE 177 U/L (45-117) H [facility] AST (SGOT) 85 U/L (11-39) H [facility] ALT (SGPT) 69 U/L (12-78) [facility] ID Date Data Source [id number] 03/29/2021 11:10:22 PM EDT [facility] Name Value Range Interpretation Code Description Data Ema rce(s) Supporting Document(s) TROPONIN I <0.05 ng/mL (<0.05) [facility] [place] Less than 0.05: Myocardial injury unlike lyGreater than or equal to 0.05: Highly suggestive of myocardial injuryCorrelation with rise and/or fall ofserial troponins, clinical symptomsand ECG changes is necessary. ID Date Data Source [id number] 03/29/2021 11:10:22 PM EDT [facility] Name Value Range Interpretation Code Description Data Ema rce(s) Supporting Document(s) SODIUM 137 mmol/L (136-145) [facility] POTASSIUM 4.7 mmol/L (3.6-5.2) [facility] CHLORIDE 105 mmol/L (100-108) [facility] CO2 22 mmol/L (22-31) [facility] ANION GAP 10 mmol/L (7-16) [facility] UREA NITROGEN 39 mg/dL (7-24) H [facility] CREATININE 1.51 mg/dL (0.80-1.30) H [facility] BUN/CREAT RATIO 25.8 RATIO (10.0-20.0) H [facility] GLUCOSE 163 mg/dL (70-99) H [facility] CALCIUM 10.0 mg/dL (8.4-10.2) [facility] GFR 45 ml/min/1.73m2 (>59) L [facility] GFR ( AMER) 54 ml/min/1.73m2 (>59) L [facility] GFR INTERPRETATION [facility] --NORMAL KIDNEY FUNCTION OR MILD DISEASE - GFR >OR= 60CHRONIC KIDNEY DISEASE - GFR 15 - 59RENAL FAILURE - GFR <15 Est. GFR calculation based on the MDRDstudy equation, which assumes a steadystate for creatinine. Est. GFR should notbe used for medication dosing. ID Date Data Source [id number] 03/29/2021 10:52:36 PM EDT [facility] Name Value Range Interpretation Code Description Data Ema rce(s) Supporting Document(s) PT 11.6 s (9.2-11.9) [facility] PERFORMED AT [address] [facility] [address] INR 1.11 [facility] SUGGESTED THERAPEUTIC RANGES USING INR F ORSTABILIZED ANTICOAGULATED PATIENTS:STANDARD DOSE THERAPY INR 2.0-3.0 DVT, PE, PREVENT DVT OR EMBOLISMHIGH DOSE THERAPY INR 2.5-3.5 PREVENT EMBOLISM FROM MECHANICAL HEART VALVE ID Date Data Source [id number] 03/29/2021 10:43:14 PM EDT [facility] Name Value Range Interpretation Code Description Data Ema rce(s) Supporting Document(s) WBC 3.5 10*3/uL (4.1-11.0) L [facility] [place] RBC 2.67 10*6/uL (4.60-6.10) L [facility] HGB 7.3 g/dL (13.5-18.0) L [facility] HCT 22.4 % (41.0-53.0) L [facility] MCV 83.9 fL (80.0-95.0) [facility] MCH 27.4 pg (27.0-32.0) [facility] MCHC 32.7 g/dL (32.0-36.0) [facility] RDW 16.6 % (10.5-14.5) H [facility] PLT 173 10*3/uL (150-450) [facility] MPV 9.1 fL (7.1-10.7) [facility] NEUT % 71.2 % (35.0-75.0) [facility] LYMPH % 8.1 % (16.0-52.0) L [facility] MONO % 12.1 % (0.0-8.0) H [facility] EOS % 6.5 % (0.0-5.0) H [facility] BASO % 2.1 % (0.0-4.0) [facility] NEUT # 2.5 10*3/uL (1.8-7.7) [facility] LYMPH # 0.3 10*3/uL (1.2-4.8) L [facility] MONO # 0.4 10*3/uL (0.0-0.8) [facility] Eosinophils [#/volume] in Blood by Automated count 0.2 10*3/uL (0.0-0 .5) [facility] BASO # 0.1 10*3/uL (0.0-0.2) [facility] ID Date Data Source [id number] 03/27/2021 01:51:59 PM EDT [facility] CT THORAX WITH CONTRAST [id number] RESUL TInterpreted by:Hilario Bautista, MDCT thorax.INDICATION: Hepatocellular [...] rce(s) Supporting Document(s) ID Date Data Source [id number] 03/20/2021 09:37:00 AM EDT [facility]) Name Value Range Interpretation Code Description Data Ema rce(s) Supporting Document(s) Glucose [Presence] in Urine Laboratory test result [facility] ([facility] [place]) ostomy bag Protein [Presence] in Urine by Test strip Laboratory test result [facility] ([facility]) ostomy bag Ua Leuko Laboratory test result ME DENT ([facility]) ostomy bag Ua Nitrite Laboratory test result [facility] ([facility]) ostomy bag Blood [Presence] in Urine by Visual Laboratory test result [facility] ([facility]) ostomy bag Ketones [Presence] in Urine by Test strip Laboratory test result [facility] ([facility]) ostomy bag Color of Urine Laboratory test result [facility] ([facility]) ostomy bag Clarity of Urine Laboratory test result [facility] ([facility]) ostomy bag Ua Specific [place] 1.010 1.003-1.030 [facility]E NT ([facility]) ostomy bag pH of Urine by Test strip 7.0 5.0-7.5 [facility] ([facility]) ostomy bag Bilirubin.total [Presence] in Urine by Test strip Laboratory test res ult [facility] ([facility] [place]) ostomy bag Urobilinogen [Mass/volume] in Urine by Test strip 0.2 E.U./dL 0.0-1.0 [facility] ([facility] [place]) ostomy bag ID Date Data Source [id number] 03/15/2021 03:57:13 PM EDT [facility] Name Value Range Interpretation Code Description Data Ema rce(s) Supporting Document(s) Progress Note [facility] FUOQBz6lGhAGYdEj41/IHGvdLEMhx9DiIKpxGSm8YCuwNIJjE3HoKVO3rB5eXML1AEuUUyOdBiDiMPF5 lbm [file] AgICAgICAgICAgICAgICAgICAgICAgICAgICAgICAgICAgICAgICAgICAgICAgICAgICAgICAgDQogIC AgICAgICAgICAgICAgICAgICAgICAgICAgICAgICAg ICAgICAgICAgICAgICAgICAgICAgICAgICAgICAgICAgICAgICAgICAgICAgICAgICAgICAgICAgICAg ICAgICAgDQogICAgICAgICAgICAgICAgICAgICAgICAgICAgICAgICAgICAgICAgICAgICAgICAgICAg ICAgICAgICAgICAgICAgICAgICAgICAgICAgICAgIC AgICAgICAgICAgICAgICAgDQogICAgICAgICAgICAgICAgICAgICAgICAgICAgICAgICAgICAgICAgIC AgICAgICAgICAgICAgICAgICAgICAgICAgICAgICAgICAgICAgICAgICAgICAgICAgICAgICAgICAgDQ ogICAgICAgICAgICAgICAgICAgICAgICAgICAgICAg ICAgICAgICAgICAgICAgICAgICAgICAgICAgICAgICAgICAgICAgICAgICAgICAgICAgICAgICAgICAg ICAgICAgICAgDQogICAgICAgICAgICAgICAgICAgICAgICAgICAgICAgICAgICAgICAgICAgICAgICAg ICAgICAgICAgICAgICAgICAgICAgICAgICAgICAgIC AgICAgICAgICAgICAgICAgICAgDQogICAgICAgICAgICAgICAgICAgICAgICAgICAgICAgICAgICAgIC AgICAgICAgICAgICAgICAgICAgICAgICAgICAgICAgICAgICAgICAgICAgICAgICAgICAgICAgICAgIC AgDQogICAgICAgICAgICAgICAgICAgICAgICAgICAg ICAgICAgICAgICAgICAgICAgICAgICAgICAgICAgICAgICAgICAgICAgICAgICAgICAgICAgICAgICAg ICAgICAgICAgICAgDQogICAgICAgICAgICAgICAgICAgICAgICAgICAgICAgICAgICAgICAgICAgICAg ICAgICAgICAgICAgICAgICAgICAgICAgICAgICAgIC AgICAgICAgICAgICAgICAgICAgICAgDQogICAgICAgICAgICAgICAgICAgICAgICAgICAgICAgICAgIC AgICAgICAgICAgICAgICAgICAgICAgICAgICAgICAgICAgICAgICAgICAgICAgICAgICAgICAgICAgIC ZsYAKtFRz6C3deSQBgQVZvJQ7xFCy9Gv5+DQoNCmVu UAT9foJhjZ8KYG6bf6UkODgbRSLqn5MuALi0QG9BMHBhKWhcEK5CSImgdo2JORDvXFZyhLYZk7tyLbYr JKU4LNEzKwbzMY2TMOCqH0sbjjQkITWuNJNLQI8VQkYkN0PjxD38NZJZCd4+KVnddrTcAiwEYhP4ROFf b9RlBMs4UL5GWWXiWwdbl1CjAcRgSCASDPgsRP2TCJ R8FBZvHDGjRd6DQMIcM408wrPwFY2GUe8YSnEqHK8cow2GPtBtPIFsZxlMJeq1VDgvJA6WxMFbNPmTve 1worHjhlVAw6BukeGdxDXRLBLzrDrtjv1iY32sNJnmn0qcVFEGXYHkqKMpWU7gOC4uLHXkYSXfNeJ9IH AKNJ1JJSZlGNQihRFnBWUkGDWKKU8LBKmyADF9GCAh mpWotTGsSFxmFN5HBLNjwzGiLFvrQRJSPWm+Qh0BED6nw2DwNMkdHMFkPB1hoe9XPXcKXcTfS3D4tVXe E6J6YYeyEe9XRAZbWRTmZNzwBYUVGLgoBQ9GQX7rudU2BX9PuFDwUZFkQGStpRPxWXq9L97nxHAmDNkn MM6IBCZ+Earl+Ow5KACJiKYDkFULhNkVzLNBABpKgM9 ZiT9MYc7KbC4BkBT16yCerpfZvNCtyJU1GPJ9yBWYlIQGVGY9UeACnuW0imoTrDURsPHZRIiHpC10vsF GhSCOmGUE9MLQnGy4IJJTgB4GzstPvcRhhamDvPPQiQZLNPP7EBOovwxZurDCmjFjvMW20eMekYZ6SSb 6KUvWfGX4oml5ToTXtZb2HNZUqDp6LDJRwFEKtIDDb TEP2EAKeExTkRYydRRRzZHReOAK5GWToHQGdZP4IQoFvTMZpASftNLvaVYBvZYEzrf7HHZGeHDCoTMLu EhNqXUAyPQRgGLxpVPClLESvWUB8TRCiKRExRV6XHjAeESUyZWIdDNGrIEFcLVKynt8ECNMpIPQxVwTi AWDmYFQdELLiAZkvEADwVLLnDlb4IGIfPLFfID9UKe IwBPBoUEY2RwIqJTUnAEYryg3DJYGuIUIkZrz5RoJyKODeQMTjLHucSYGrCMT7BwWiKIPtKHHxAW9VRj XmRWMzWSG4TBFpGUOiLNRbtl5ESTMcFTSbSNYiFPOtJCJuHVQbIRxbHWCbIYQ1QBF7PJUmAWUbCM7OKw NjLOKtJTA9ZbOrWMFoOVXgvk2VCXBkILAfUef9GGVv OTOeVMHjAGdlZMQiMSG3VoLbSSOeBGGhHK8OYaBmGMKdTUkbGmWtZFGnJBRxmb0IAMRnASNoMxa3LgCb YUCgTRLkYMoyXJNpBHL1QpI2NBDlZVSfIA2HHfGgHIInTHaxHcNxADQoFGMayi1AQULcCPAhMYCyUDKs FDUkPRZoXCx1rxJyoPZpJLm4GH7RZ0TvdvSrAlEGGt 8Sl861TPGzXQEvVz6LS9xqEg3lXMMjSCEROw0BLMb1UKpqVOHhWRBqREOsW9ZbIDPdG2NyKvCwYDY0LX E2NDc+LJsqWWC3UNTnVHQbOUHqEPR1GNV8XLB8OXR6YSP4ERJ1Uq5mYEAMKd9+DQpzdGFydHhyZWYNCj W6Whd9IBdsFLHJMx6C ID Date Data Source [id number] 03/12/2021 12:24:23 PM EDT [facility] Name Value Range Interpretation Code Description Data Ema rce(s) Supporting Document(s) POC GLUCOSE 76 mg/dL (70-99) [facility] NOTIFIED NURSEPERFORMED BY CLINICAL S TAFF ID Date Data Source [id number] 03/12/2021 12:18:21 PM EDT [facility] Name Value Range Interpretation Code Description Data Ema rce(s) Supporting Document(s) POC GLUCOSE 76 mg/dL (70-99) [facility] PERFORMED BY CLINICAL STAFF ID Date Data Source [id number] 03/12/2021 08:29:05 AM EDT [facility] Name Value Range Interpretation Code Description Data Ema rce(s) Supporting Document(s) SODIUM 142 mmol/L (136-145) [facility] POTASSIUM 3.9 mmol/L (3.6-5.2) [facility] CHLORIDE 112 mmol/L (100-108) H [facility] CO2 24 mmol/L (22-31) [facility] ANION GAP 6 mmol/L (7-16) L [facility] UREA NITROGEN 20 mg/dL (7-24) [facility] CREATININE 1.06 mg/dL (0.80-1.30) [facility] BUN/CREAT RATIO 18.9 RATIO (10.0-20.0) [facility] GLUCOSE 74 mg/dL (70-99) [facility] CALCIUM 9.2 mg/dL (8.4-10.2) [facility] GFR >60 ml/min/1.73m2 (>59) [facility] GFR ([facility]) >60 ml/min/1.73m2 (>59) [facility] GFR INTERPRETATION [facility] --NORMAL KIDNEY FUNCTION OR MILD DISEASE - GFR >OR= 60CHRONIC KIDNEY DISEASE - GFR 15 - 59RENAL FAILURE - GFR <15 Est. GFR calculation based on the MDRDstudy equation, which assumes a steadystate for creatinine. Est. GFR should notbe used for medication dosing. ID Date Data Source [id number] 03/12/2021 07:46:51 AM EDT [facility] Name Value Range Interpretation Code Description Data Ema rce(s) Supporting Document(s) WBC 3.4 10*3/uL (4.1-11.0) L [facility] RBC 2.76 10*6/uL (4.60-6.10) L [facility] HGB 7.8 g/dL (13.5-18.0) L [facility] HCT 23.4 % (41.0-53.0) L [facility] MCV 84.9 fL (80.0-95.0) [facility] MCH 28.1 pg (27.0-32.0) [facility] MCHC 33.1 g/dL (32.0-36.0) [facility] RDW 16.0 % (10.5-14.5) H [facility] PLT 152 10*3/uL (150-450) [facility] MPV 8.2 fL (7.1-10.7) [facility] NEUT % 73.0 % (35.0-75.0) [facility] LYMPH % 6.1 % (16.0-52.0) L [facility] MONO % 13.2 % (0.0-8.0) H [facility] EOS % 5.8 % (0.0-5.0) H [facility] BASO % 1.9 % (0.0-4.0) [facility] NEUT # 2.5 10*3/uL (1.8-7.7) [facility] LYMPH # 0.2 10*3/uL (1.2-4.8) L [facility] MONO # 0.4 10*3/uL (0.0-0.8) [facility] Eosinophils [#/volume] in Blood by Automated count 0.2 10*3/uL (0.0-0 .5) [facility] BASO # 0.1 10*3/uL (0.0-0.2) [facility] ID Date Data Source [id number] 03/12/2021 05:39:53 AM EDT [facility] Name Value Range Interpretation Code Description Data Ema rce(s) Supporting Document(s) POC GLUCOSE 78 mg/dL (70-99) [facility] NOTIFIED NURSEPERFORMED BY CLINICAL S TAFF ID Date Data Source [id number] 03/11/2021 11:38:09 PM EDT [facility] Name Value Range Interpretation Code Description Data Ema rce(s) Supporting Document(s) POC GLUCOSE 84 mg/dL (70-99) [facility] NOTIFIED NURSEPERFORMED BY CLINICAL S TAFF ID Date Data Source [id number] 03/12/2021 10:21:00 AM EDT [facility] DATE OF EXAM: 03/11/2021[facility] MRI ABDOMEN WITH AND WITHOUT IV [...] greater than right. Professional interpretation performed at [facility] .End of diagnostic report for accession: [id number] Interpreted: Shahnaz Ramos MDTranscribed: 03/12/2021 10:01 AMSigned: 03/12/2021 10:21 AM Shahnaz Ramos MD [facility] # [id number] BILL # [id number] Name Value Range Interpretation Code Description Data Ema rce(s) Supporting Document(s) ID Date Data Source [id number] 03/11/2021 06:13:30 PM EDT [facility] Name Value Range Interpretation Code Description Data Ema rce(s) Supporting Document(s) POC GLUCOSE 96 mg/dL (70-99) [facility] PERFORMED BY CLINICAL STAFF ID Date Data Source [id number] 03/12/2021 03:16:01 PM EDT [facility] Name Value Range [...] INCREASES WITHINCREASING LEVELS. ID Date Data Source [id number] 03/11/2021 03:39:07 PM EDT [facility] Name Value Range Interpretation Code Description Data Ema rce(s) Supporting Document(s) APTT 29.6 s (22.0-34.3) [facility] ID Date Data Source [id number] 03/11/2021 03:39:07 PM EDT [facility] [place] Name Value Range Interpretation Code Description Data Ema rce(s) Supporting Document(s) PT 12.2 s (9.2-11.9) H [facility] INR 1.17 [facility] SUGGESTED THERAPEUTIC RANGES USING INR F ORSTABILIZED ANTICOAGULATED PATIENTS:STANDARD DOSE THERAPY INR 2.0-3.0 DVT, PE, PREVENT DVT OR EMBOLISMHIGH DOSE THERAPY INR 2.5-3.5 PREVENT EMBOLISM FROM MECHANICAL HEART VALVE ID Date Data Source [id number] 03/11/2021 03:32:09 PM EDT [facility] Name Value Range Interpretation Code Description Data Ema rce(s) Supporting Document(s) WBC 4.1 10*3/uL (4.1-11.0) [facility] [place] RBC 2.98 10*6/uL (4.60-6.10) L [facility] HGB 8.4 g/dL (13.5-18.0) L [facility] HCT 25.6 % (41.0-53.0) L [facility] PATIENT TRANSFUSED MCV 85.7 fL (80.0-95.0) [facility] MCH 28.2 pg (27.0-32.0) [facility] MCHC 32.9 g/dL (32.0-36.0) [facility] RDW 15.9 % (10.5-14.5) H [facility] PLT 177 10*3/uL (150-450) [facility] MPV 8.4 fL (7.1-10.7) [facility] ID Date Data Source [id number] 03/11/2021 12:40:27 PM EDT [facility] Name Value Range Interpretation Code Description Data Ema rce(s) Supporting Document(s) POC GLUCOSE 99 mg/dL (70-99) [facility] PERFORMED BY CLINICAL STAFF ID Date Data Source [id number] 03/11/2021 07:56:19 AM EDT [facility] Name Value Range Interpretation Code Description Data Ema rce(s) Supporting Document(s) SODIUM 140 mmol/L (136-145) [facility] POTASSIUM 4.0 mmol/L (3.6-5.2) [facility] CHLORIDE 110 mmol/L (100-108) H [facility] CO2 25 mmol/L (22-31) [facility] ANION GAP 5 mmol/L (7-16) L [facility] UREA NITROGEN 17 mg/dL (7-24) [facility] CREATININE 0.98 mg/dL (0.80-1.30) [facility] BUN/CREAT RATIO 17.3 RATIO (10.0-20.0) [facility] GLUCOSE 80 mg/dL (70-99) [facility] CALCIUM 9.5 mg/dL (8.4-10.2) [facility] GFR >60 ml/min/1.73m2 (>59) [facility] GFR ( AMER) >60 ml/min/1.73m2 (>59) [facility] GFR INTERPRETATION [facility] --NORMAL KIDNEY FUNCTION OR MILD DISEASE - GFR >OR= 60CHRONIC KIDNEY DISEASE - GFR 15 - 59RENAL FAILURE - GFR <15 Est. GFR calculation based on the MDRDstudy equation, which assumes a steadystate for creatinine. Est. GFR should notbe used for medication dosing. ID Date Data Source [id number] 03/11/2021 07:38:12 AM EDT [facility] Name Value Range Interpretation Code Description Data Ema rce(s) Supporting Document(s) WBC 3.1 10*3/uL (4.1-11.0) L [facility] [place] RBC 2.46 10*6/uL (4.60-6.10) L [facility] HGB 6.9 g/dL (13.5-18.0) L [facility] RESULT(S) CALLED TO AND READ BACK BYREAGAN Napoles ON 5SIR AT 0736 ON 03/11/21 [place] [address] HCT 20.7 % (41.0-53.0) L [facility] MCV 84.4 fL (80.0-95.0) [facility] MCH 27.9 pg (27.0-32.0) [facility] MCHC 33.0 g/dL (32.0-36.0) [facility] RDW 16.0 % (10.5-14.5) H [facility] PLT 154 10*3/uL (150-450) [facility] MPV 8.6 fL (7.1-10.7) [facility] ID Date Data Source [id number] 03/11/2021 05:49:03 AM EDT [facility] [place] Name Value Range Interpretation Code Description Data Ema rce(s) Supporting Document(s) POC GLUCOSE 89 mg/dL (70-99) [facility] NOTIFIED NURSEPERFORMED BY CLINICAL S TAFF ID Date Data Source [id number] 03/11/2021 12:23:19 AM EDT [facility] Name Value Range Interpretation Code Description Data Ema rce(s) Supporting Document(s) POC GLUCOSE 105 mg/dL (70-99) H [facility] NOTIFIED NURSEPERFORMED BY CLINICAL S TAFF ID Date Data Source [id number] 03/10/2021 04:00:00 PM EDT [facility] Name Value Range Interpretation Code Description Data Ema rce(s) Supporting Document(s) SARS coronavirus 2 RNA [Presence] in Res piratory specimen by JUSTEN with probe detection NOT DETECTED [facility] This lab was reported by [facility]. ID Date Data Source [id number] 03/11/2021 01:47:06 PM EDT [facility] [place] Name Value Range Interpretation Code Description Data Ema rce(s) Supporting Document(s) SPECIMEN DESCRIPTION [facility] COVID 19 RESULT (NDET) [facility] [place] NEGATIVE COVID-19 RESULTS DONOT PRECLUDE COVID-2019 INFECTION ANDSHOULD NOT BE USED THE SOLE BASISFOR PATIENT MANAGEMENT DECISIONS. COMMENT [facility] THE [place] FDA HAS MADE THIS TEST AVAILABL EUNDER AN EMERGENCY USE AUTHORIZATION(EUA) FOR THE DETECTION AND/OR DIAGNOSISOF THE VIRUS THAT CAUSES COVID-19.THIS ASSAY AMPLIFIES AND DETECTS TARGETDNA USING MILLER HEAD ASSISTANT WET PROCESS- MEDIATEDAMPLIFICATIONTESTING PERFORMED ON Split FIRST TEST [facility] [place] SYMPTOMATIC [facility] [place] DATE OF SYMPT ONSET [facility] H[facility]ED [facility] [place] [facility] CONGREGATE CARE SET [facility] ID Date Data Source [id number] 03/12/2021 12:38:20 AM EDT [facility] PATIENT ABO/Rh A POSITIVEANT IBODY SCREEN NEGATIVESPEC EXP DATE 03/13/2021TESTING SITE PERFORMED AT [address] [place] [address] BANK COMMENT BLOOD TYPE CONFIRMED.UNIT NUMBER [id number] COMPONENT TYPE LEUKOPOOR RED CELLSUNIT DIVISION 00STATUS OF UNIT TRANSFUSEDUNIT TAG COMMENT EMERGENCY RELEASETRANSFUSION STATUS OK TO TRANSFUSECROSSMATCH RESULT COMPATIBLEUNIT NUMBER [id number] COMPONENT TYPE LEUKOPOOR RED CELLSUNIT DIVISION 00STATUS OF UNIT TRANSFUSEDTRANSFUSION STATUS OK TO TRANSFUSECROSSMATCH RESULT COMPATIBLE Name Value Range Interpretation Code Description Data Ema rce(s) Supporting Document(s) ID Date Data Source [id number] 03/10/2021 04:51:00 PM EDT [facility] [...] exclude hepatocellular carcinoma. Professional interpretation performed at [facility] .End of diagnostic report for accession: [id number] Interpreted: Shahnaz Ramos MDTranscribed: 03/10/2021 04:36 PMSigned: 03/10/2021 04:51 PM Shahnaz Ramos MD [facility] ACC # [id number] BILL # [id number] Name Value Range Interpretation Code Description Data Ema rce(s) Supporting Document(s) ID Date Data Source [id number] 03/10/2021 02:00:09 PM EDT [facility] Name Value Range Interpretation Code Description Data Ema rce(s) Supporting Document(s) SODIUM 137 mmol/L (136-145) [facility] POTASSIUM 4.2 mmol/L (3.6-5.2) [facility] CHLORIDE 107 mmol/L (100-108) [facility] CO2 23 mmol/L (22-31) [facility] ANION GAP 7 mmol/L (7-16) [facility] UREA NITROGEN 20 mg/dL (7-24) [facility] CREATININE 1.15 mg/dL (0.80-1.30) [facility] BUN/CREAT RATIO 17.4 RATIO (10.0-20.0) [facility] GLUCOSE 198 mg/dL (70-99) H [facility] CALCIUM 9.7 mg/dL (8.4-10.2) [facility] GFR >60 ml/min/1.73m2 (>59) [facility] GFR ( AMER) >60 ml/min/1.73m2 (>59) [facility] GFR INTERPRETATION [facility] --NORMAL KIDNEY FUNCTION OR MILD DISEASE - GFR >OR= 60CHRONIC KIDNEY DISEASE - GFR 15 - 59RENAL FAILURE - GFR <15 Est. GFR calculation based on the MDRDstudy equation, which assumes a steadystate for creatinine. Est. GFR should notbe used for medication dosing. ID Date Data Source [id number] 03/10/2021 02:00:09 PM EDT [facility] Name Value Range Interpretation Code Description Data Ema rce(s) Supporting Document(s) TOTAL PROTEIN 6.4 g/dL (6.4-8.2) [facility] ALBUMIN 2.1 g/dL (3.2-4.5) L [facility] GLOBULIN 4.3 g/dL (2.7-4.3) [facility] ALB/GLOB RATIO 0.5 RATIO [facility] BILIRUBIN,TOTAL 0.6 mg/dL (0.0-1.0) [facility] PLEASE NOTE:Total bilirubin results may be falselyelevated in patients taking Eltrombopag. BILIRUBIN,CONJUGATED 0.3 mg/dL (0.0-0.3) [facility] BILIRUBIN,UNCONJ. 0.3 mg/dL (0.0-0.7) [facility] ALKALINE PHOSPHATASE 150 U/L (45-117) H [facility] AST (SGOT) 67 U/L (11-39) H [facility] ALT (SGPT) 59 U/L (12-78) [facility] ID Date Data Source [id number] 03/10/2021 01:44:30 PM EDT [facility] Name Value Range Interpretation Code Description Data Ema rce(s) Supporting Document(s) PT 12.2 s (9.2-11.9) H [facility] INR 1.17 [facility] SUGGESTED THERAPEUTIC RANGES USING INR F ORSTABILIZED ANTICOAGULATED PATIENTS:STANDARD DOSE THERAPY INR 2.0-3.0 DVT, PE, PREVENT DVT OR EMBOLISMHIGH DOSE THERAPY INR 2.5-3.5 PREVENT EMBOLISM FROM MECHANICAL HEART VALVE ID Date Data Source [id number] 03/10/2021 01:33:49 PM EDT [facility] Name Value Range Interpretation Code Description Data Ema rce(s) Supporting Document(s) WBC 4.1 10*3/uL (4.1-11.0) [facility] [place] RBC 2.70 10*6/uL (4.60-6.10) L [facility] HGB 7.3 g/dL (13.5-18.0) L [facility] HCT 23.1 % (41.0-53.0) L [facility] MCV 85.4 fL (80.0-95.0) [facility] MCH 27.1 pg (27.0-32.0) [facility] MCHC 31.8 g/dL (32.0-36.0) L [facility] RDW 16.6 % (10.5-14.5) H [facility] PLT 164 10*3/uL (150-450) [facility] MPV 8.7 fL (7.1-10.7) [facility] NEUT % 73.6 % (35.0-75.0) [facility] LYMPH % 7.3 % (16.0-52.0) L [facility] MONO % 13.3 % (0.0-8.0) H [facility] EOS % 4.7 % (0.0-5.0) [facility] BASO % 1.1 % (0.0-4.0) [facility] NEUT # 3.0 10*3/uL (1.8-7.7) [facility] LYMPH # 0.3 10*3/uL (1.2-4.8) L [facility] MONO # 0.5 10*3/uL (0.0-0.8) [facility] Eosinophils [#/volume] in Blood by Automated count 0.2 10*3/uL (0.0-0 .5) [facility] BASO # 0.0 10*3/uL (0.0-0.2) [facility] ID Date Data Source [id number] 03/04/2021 08:31:14 PM EDT [facility] Name Value Range Interpretation Code Description Data Ema rce(s) Supporting Document(s) Progress Note [facility] XLQEXy5yTyLLRtJr41/YJSjwVNThf1ReZVkwANr3ZMklLXRbB1ThVGB7sB6lZIZ3NTlVJnHpAwKsYFI8 lbm [file] ICAgICAgICAgICAgICAgICAgICAgICAgICAgICAgIC JbLTCnZGDoITMtULSmHEYbYJIiJYSwOZZgFCGkQOZdVCExRCKhAQTiVCVqTXAvXJOpJTUmNR4ELGLlUD AgICAgICAgICAgICAgICAgICAgICAgICAgICAgICAgICAgICAgICAgICAgICAgICAgICAgICAgICAgIC AgICAgICAgICAgICAgICAgICAgICAgICAgICAgICAg YUYvCY5AMFAcMKKnLBPhEXJuWIGqVQAvEGJjCKQxSPZiRZUcJUOyIMFeVTWjJDQpXFZnVICoYJYsNANy MISjLPMiJAZzUKLnLQVfTIXnZCSmGVNfSUOwOPOgUXBjYJYbQSRjBWPrLSAvNF7BDPGmAFYxDNTjCEDz ICAgICAgICAgICAgICAgICAgICAgICAgICAgICAgIC SjDSZmPQAdKVDvLBTgZUKvQKEzEQZlWKObBXFkGKEoPOJnUNTsCXOrFOOwSLAmDZVcQCGbUXVhDD9IQW AgICAgICAgICAgICAgICAgICAgICAgICAgICAgICAgICAgICAgICAgICAgICAgICAgICAgICAgICAgIC AgICAgICAgICAgICAgICAgICAgICAgICAgICAgICAg JVKxFDXiXU4BMSRoAXEgXNDdKMGfQJDxOLGfTMBjRBPuSWHxBHCbWCZdPTMpRNDfGCWjTSCdQUEhQBVi DPCbSUEoGGNhQGKbFOJwRDRuYXEpHDOnLQZtJGUhACGcRPZxAHJcEHXjFUSqWXNsWG5VCGYzSOJwXIVu ICAgICAgICAgICAgICAgICAgICAgICAgICAgICAgIC AgICAgICAgICAgICAgICAgICAgICAgICAgICAgICAgICAgICAgICAgICAgICAgICAgICAgICAgICAgIA 0KICAgICAgICAgICAgICAgICAgICAgICAgICAgICAgICAgICAgICAgICAgICAgICAgICAgICAgICAgIC AgICAgICAgICAgICAgICAgICAgICAgICAgICAgICAg XMCxBUZcODMwHN4IGXWtVYWePGTaCDItLNHjAZXdKPFjBFCzDIPnKUIoTHRhZUDcFHArKKQxQXJrHJBr JSYwRTLuZGLxNTPfNVCuCMDcHVGqKVPeERLdTJIsJZQvEJIiAMGxGSIcUTCpLCHnAXTuWU8BQH72hRDr x5P6VKMjMM1yqxo/Pr7PSOibayVnfDGvRN0KWoSsSV 1pgk5BEqMbML2xbt3GXLcXEdHpV5V3nMPaNKBkBVWOFnMyE66oPKpnKg01XXniPSMgMkWuQFn9Uu3UOa TvT2xkKDKgFpK2JTOlCqUxBXziVE7Qk7NhwWAeJSj+Ji5CMP0wi0MrGUjgJHLcHC1dps4RKFyCBcRvU6 YathL4RRAzEWEkPf6JHYPlKUFnnEUpYXElUBVZVlBk R7ToaJ31CEVSIg2+BYseqhGdDpfJPqVmAFBbe7MdHQw7WZ3HQDPaOTv6aSXdNJVpE8Hax2SuKl76PKDa FzwwYbTpuCceW4R6rLlrSH6jFTCgOB2lRJ2sWGYiXDBvNsYlXGZMMG1XZLQsRHRdiAPkANEfRLKMSQ0B XCnyOSA2JJNnfgTvvZZkBWtjNO6YWOWyazTkEAyvVE BSDQo+Dt9XKR8ms5QeOZbpLAUlIJ3huv7MNXjZSfFpI0Q2jPYkW2Y3JLneDl7YJHIlJNExHZvtULIHXA amMJ1JPA1fsmK9TF4VpYEaCGSwXQVheJQdOVw5R63baOIcTUmbMN1TNDC+Earl+Ap8KOXGaHXBzRQWkHx DzIYAKRbJuM9KrT8AMg4BuX4VeSI98xKfzlxChFLjv NT1EDD3oVOOsSBUQQF1WiXZryH9nepMzTJEnJCHQGmYuI78ufUZuMNKmJOF1XBTyPu2MWSApZ5HpgsIp iWetkmQnTGJmCJTBXU1TMVatkrLmlJHslEjbOC50sRziYK4RQk7IXpKuJS5hpz4VwVBsBj8WVTWcPb6U ZJGvRQBjQOEjAAJ3NOVsWaIxJCcsMWZfRVGeCTS0OG IlCSLoZP5CChQyFNVcRRT3ZnKsJNZsFWCetf5AUISbUFGlPMBaJESqOABmMJBrEOdbHFQcQNXcRJZ2RZ ZpUBBtJT0TDtAaSKPuDUW4OChrHHXnSHUdkv7PMLBxPLTjFYk1ZFEjOCVcKXMhEWsdXNKgGZRvUCDjQF ErEYIpBA8NQoWlSNFcVPLdZKRsJMDhLGXgbc5UOYAo SCWsSdE4LmLwKKSiZKHsLOvdSKTeNTG1GvU7WEEvLPFgZX1DEfZkAOUcVAS6AOSdABRqZAIuwi6QGFRl ERIbVONvTqCdMLUbZLBtKQtoDFPhFDP4BFl8IGZkJAVuOS4JTjWtGOQrOEQiEVGnFUEqCFOuqm4QULZf XOBcJwPbSbRlAZAqLRGaUYqiUILwPHP4FvSsGXJkZN JzDZ3LSqQlEFGgBLU1HOpmRIBvLHSfox7ASHWoBYMoOeJ3ELVvBFSnIZVdJSdrVWDyUWW0CcH7KZFeFX VvRR7UHpCyTVXnNMk9PHriAFAfAYKarz6DQEJlCECtTLm8NqGxNZFvPXOkNOt1ccCmaVYhPLw0UR3OV1 VmxiJzBvHSOz5Mx451HWJyGROgRi9VE7yyAq2fSEMz ZQNHAs2NLYe3DoNlYFV3P5V3QdXtCQHsSIYuGwVhStThYHCqIKTsCOC+IDwyZWUwZDQzZThiNTIwNjA5 DVEzYoWoLCOcHkCzQMN1XT7tANELLl9+AOadpQRjvTiiREIGFoJ0QFy6HKabVREXIs5B ID Date Data Source [id number] 03/04/2021 03:34:49 PM EDT [facility] Name Value Range Interpretation Code Description Data Ema rce(s) Supporting Document(s) Progress Note [facility] BQJKKl2oWdCRVbKa49/THGvzXBIpk6XjYUihRHb1MGvjRZVjC4ArHVP9dW1lTVB1YSmOXoJbWsPuCEI9 lbm [file] ICAgICAgICAgICAgICAgICAgICAgICAgICAgICAgIC AgICAgICAgICAgICAgICAgDQogICAgICAgICAgICAgICAgICAgICAgICAgICAgICAgICAgICAgICAgIC AgICAgICAgICAgICAgICAgICAgICAgICAgICAgICAgICAgICAgICAgICAgICAgICAgICAgICAgICAgDQ ogICAgICAgICAgICAgICAgICAgICAgICAgICAgICAg ICAgICAgICAgICAgICAgICAgICAgICAgICAgICAgICAgICAgICAgICAgICAgICAgICAgICAgICAgICAg ICAgICAgICAgDQogICAgICAgICAgICAgICAgICAgICAgICAgICAgICAgICAgICAgICAgICAgICAgICAg ICAgICAgICAgICAgICAgICAgICAgICAgICAgICAgIC AgICAgICAgICAgICAgICAgICAgDQogICAgICAgICAgICAgICAgICAgICAgICAgICAgICAgICAgICAgIC AgICAgICAgICAgICAgICAgICAgICAgICAgICAgICAgICAgICAgICAgICAgICAgICAgICAgICAgICAgIC AgDQogICAgICAgICAgICAgICAgICAgICAgICAgICAg ICAgICAgICAgICAgICAgICAgICAgICAgICAgICAgICAgICAgICAgICAgICAgICAgICAgICAgICAgICAg ICAgICAgICAgICAgDQogICAgICAgICAgICAgICAgICAgICAgICAgICAgICAgICAgICAgICAgICAgICAg ICAgICAgICAgICAgICAgICAgICAgICAgICAgICAgIC AgICAgICAgICAgICAgICAgICAgICAgDQogICAgICAgICAgICAgICAgICAgICAgICAgICAgICAgICAgIC AgICAgICAgICAgICAgICAgICAgICAgICAgICAgICAgICAgICAgICAgICAgICAgICAgICAgICAgICAgIC AgICAgDQogICAgICAgICAgICAgICAgICAgICAgICAg ICAgICAgICAgICAgICAgICAgICAgICAgICAgICAgICAgICAgICAgICAgICAgICAgICAgICAgICAgICAg ICAgICAgICAgICAgICAgDQogICAgICAgICAgICAgICAgICAgICAgICAgICAgICAgICAgICAgICAgICAg ICAgICAgICAgICAgICAgICAgICAgICAgICAgICAgIC YuNGPnGGPcSAZpLAOfOLYhTFDrTGHfSPKqBJo2H5toNVAqJTBpBC5qQVe9Mv9+ZMjJTqOdVPK0qjQyfK 7MVU2zl0VpBWahSARhu7EyEJv7JO5PECRiAOxaAV6LMSweme4BOEWkOPKteFWCx4obKjDgXMC2IBJwNv wgGS9SWDUqA9pqlyEoWTJoBIFYZHzzKPRLNQqfEMMT BKSqESUxCaVyMHbiRH3Aj4DouME2IGh+Az5LIJ9xh1RpRDsvUXEmDO7kui8JLHeTRcFnB5ZipdD5THW8 MPXtZa5LYQReLYBdyDZdTXWzFWGRCjHbF0HufA65LZKTJy8+DGmjrxGgZleJScY2ORVna3EtAVo3DC2G AKRnSRk4gYQjHELsG2Qzs4RmHy28RMJtGghkR3C7o9 WyrYGdMPghSeH2HPZsmSyqMEAbTIHqJQDdLH2lZJImIDTvBbZnATGXWK1BOGVvFGPnrEClPZGjDTYJKT 8JLZlsMDY9EOVbnwAmsPMjTTemYY6VKXPbqkHgIfuqOJHLZVo+Zc8HPA6fk6KaIOcoZLCyHN6ncb3JAW iLLvGfQ5K2xZUcT8Q7BUcmZp3PSPEeXFVkPeCkCMAS ZJxrUF7UTI5dbnC6NA9YhTLjBUNeVOFseJEiBEi9V97gzPGsRAouIN7IWTI+Earl+Al7NFZZxHEZeKBIe LiHzAPUTOcKhW9IvH0MDm1VpI3GpBO53nTwcmbMyKMqnCX8FHZ7rMWFqBNWIMU3YiKDmyE4htkQpXKPa QDPHMgJiI42qbGUdQEJiFNT6ZFRpZz6XUMVtV7Fhnu ZcqChixzDtZMMqAPZQCD3EPPxeauWpaUDaeKfvZJ46vXzaDA5KCn6HVvAbYR7lgy1IdUShUt2JYODzAU 2IYEIrUNHzPMReFFQ6URKbZhYoLHqaCZHjTQJhADI5AYJbJXZzWI2RIqZgUNImCzxeETakLHLuRHCilf 8WNHBgNFSoIVuoFQCrYZDmOIRpDPliGFCePUJeJHR5 LBJqZBCyLF8KYeCiOGYbYGM8FSyyNAZsAWSxgx5TRTHyFAWrDZWjCQQhDWPhWBGwEVitYGVhBUR7XUY3 SIZlXHNdYU0XRqDaKGUyBZX1LxPhXPJmOGTcip3RYVPaFYNcPNc7JOVfDCHsXMPjOMdrVHTuDVRyDTC5 WYWfTFSjCJ4NSuTaPALuXBF0LTWnSLRuKLZqsa9RWB JdQUJuUzreQHFaDRVuOEQaFPqnYSBsCVKgZlZ1EIXiPIQfFL7ZKcXvXOYjEUI0ApIgANMqHBVxqz3SIX MzONHwUMC5CGHyDYOeQXLfRNhhPNEsLPK5SSK8HNNxHNVdHE6ZEpOpOIMeFBUjSDooORQnMPOtje2WGA AfAAUxHED6FrZhNKZvSUPvILewTNMoTPU8IZT9FFIt OCAuCE2JZqRuPHMrQplyXWHjBHUlBNFfda2KFFFcVZHnYlI2PWCcUQZnXMWhURjkCURgODA4YdLgBNRb DPXcTP0URbPePFRmJvi3YQzaYROjBROhfd4MRRUqLJPlHLthKDZiNLZpXICmWSssSHUrJSQ8DFj5TYJh INIgWN7IByCqFZNkUclpSusyWMQqOQKaqe7EGEHzNW CjQKP5ZBWqWYUiYPXkSBreAFEqJHAbBERuQYPnMGQxTC0DYgJkJKYmDgAvTQItRECpRVLeyu0IGGIwBI LnOEY5JgUnZBUtWYApJMr8qlIbcVKkGVk9LC6OV5NphmEyCjUZUw0Es803SDKhFVUwIx2LF5lfUj7uNN TcJILFKp1HFZz0ZOZrAKIeDowcIRZrHYJ7IPB5BcK4 WuQnKSheFgj5IaJ+DImgXpWqITToP3Z1PrLlEiqsCOE2ZfS0WoU8NEBqHfqdNL5tRCIEXn8+DQpzdGFy fBrdUXOREdDcIMVkAEmrUIRYPj7I ID Date Data Source [id number] 02/28/2021 12:47:10 PM EDT [facility] Name Value Range Interpretation Code Description Data Ema rce(s) Supporting Document(s) Progress Note [facility] JMMXGz9wEmASJtFn88/YLMjuWECbe8MaDDejNNe5TEwtLZQpK7VwRDM9dD7rTRW6NEvVGeNgNzFpIADg lbm [file] CiAgICAgICAgICAgICAgICAgICAgICAgICAgICAgICAgICAgICAgICAgICAgICAgICAgICAgICAgICAg ICAgICAgICAgICAgICAgICAgICAgICAgICAgICAgIC AgICAgICAgICANCiAgICAgICAgICAgICAgICAgICAgICAgICAgICAgICAgICAgICAgICAgICAgICAgIC AgICAgICAgICAgICAgICAgICAgICAgICAgICAgICAgICAgICAgICAgICAgICAgICAgICANCiAgICAgIC AgICAgICAgICAgICAgICAgICAgICAgICAgICAgICAg ICAgICAgICAgICAgICAgICAgICAgICAgICAgICAgICAgICAgICAgICAgICAgICAgICAgICAgICAgICAg ICANCiAgICAgICAgICAgICAgICAgICAgICAgICAgICAgICAgICAgICAgICAgICAgICAgICAgICAgICAg ICAgICAgICAgICAgICAgICAgICAgICAgICAgICAgIC AgICAgICAgICAgICANCiAgICAgICAgICAgICAgICAgICAgICAgICAgICAgICAgICAgICAgICAgICAgIC AgICAgICAgICAgICAgICAgICAgICAgICAgICAgICAgICAgICAgICAgICAgICAgICAgICAgICANCiAgIC AgICAgICAgICAgICAgICAgICAgICAgICAgICAgICAg ICAgICAgICAgICAgICAgICAgICAgICAgICAgICAgICAgICAgICAgICAgICAgICAgICAgICAgICAgICAg ICAgICANCiAgICAgICAgICAgICAgICAgICAgICAgICAgICAgICAgICAgICAgICAgICAgICAgICAgICAg ICAgICAgICAgICAgICAgICAgICAgICAgICAgICAgIC AgICAgICAgICAgICAgICANCiAgICAgICAgICAgICAgICAgICAgICAgICAgICAgICAgICAgICAgICAgIC AgICAgICAgICAgICAgICAgICAgICAgICAgICAgICAgICAgICAgICAgICAgICAgICAgICAgICAgICANCi AgICAgICAgICAgICAgICAgICAgICAgICAgICAgICAg ICAgICAgICAgICAgICAgICAgICAgICAgICAgICAgICAgICAgICAgICAgICAgICAgICAgICAgICAgICAg ICAgICAgICANCiAgICAgICAgICAgICAgICAgICAgICAgICAgICAgICAgICAgICAgICAgICAgICAgICAg ICAgICAgICAgICAgICAgICAgICAgICAgICAgICAgIC AgICAgICAgICAgICAgICAgICANCjw/cKEhN7hbbKVhotI6U6coKw4KNd2TGB0dg9ReRSIiHBzxbfDxAr gTOgQsWAQpFqnIIak7QZdyIS0SpFGlI5CvU3NnMWpkUQ5ZFTSfIEJfqDRpHJAsKONkJwL8PUIvDQxqNB 9LaWRzIFsgNSAwIFIgNyAwIFIgOSAwIFIgMTEgMCBS STAkXGRsOrKfVEtqGK6Qs4SreHJ4ZUs+Qa5QJD4ps1PtZIpjKyUcHJ9cfj7UYEhXMzViJ8XplfY2QKS4 XELpQm1IIODuCPNtfCPuPNYnPTHMZkOdV3JrmC68EAXJYq8+PMsvffWeUxuLUuX4VBMnn1IwGFs8CD8H TRLyDFt7yODmGCWwM8Xqj9QqLg15PLHcBlgmQprcvL XTJCsfIWbmhhduAM5qUWHoMO0yAD2nCXHgXFDlPwEsXLKWZJ1CFHReBQGdlMAkBIPsSUKNFH0YSVraKT B9AXUhfvZnvNApBLlhXN3IRRKbooDmOissSCYWZMd+Dr1SXU7fj0HlWMwrNLKzTN0kqc6PLYgSDnAdN0 D5wIDpU8I4DGtlTc7WKSXoCHReHcXbWHTSQJidGM3H RR0nlcA1ST1OjKXdJTCtWVEhiGGoQHm3F36kdIToBZxyFY2JDQF+Earl+Dw3GYHAmSOGbULMdUpIxQVYU PoCwG4BkZ9DYp4IqN1PuTI00yWernvMtEDkkSC3HKY9dPUZsWNJIJB1RlWFtrZ6wnnZuIrYhFYTVMmSb R54dqAPbQOVcDOH0FBKfSm9OIWItR7YfypIzuAbxdm DlQKIdKMTCIV6BMHnbhyJzfIKbxUveBR77tGjpJJ9BQi7SLjXeMH8vcs2JjUYrRb4GWDVgDY0HPOVuOI HoJGUoEHR2KNAdIkKwBIbxJHLtBVDtPOK2KRJxLUYhHN2DJiIeFRRmVmjdLYqmDGEeXFLfqv2YVPAyGK IpDZmhIoHkWYGbDBOvSJczLZSdXHOoNJG6IYYpVMIs GU8XToUkINUpUAW1GpVoHWMjCHMuvy5UPJClBEWnDIRbAsWyTHGiZVDhBAimWTQzIEZ3TGObXUOhGCXx LK7RTvJbYCOzUNqzSrJrZXNsYCFbww4KYNTcDFCeIPt3HlPqYZKyXYQsAXbrKRGeZXLiNTF5WWIoTXDp IE4SLrDmBDRjCLJ6TqqgGJYxPIJzkk3BCCCiTBXzBz z0XFFlQIItKKXcVExdIFJtQNYyAGRnTIHoFWZnPK3QArCaUWNmMYFoHicrRYCiGHPvze6BGABxNKUgQZ k2ZwGkCRGkNCHmEOxgBAPiNMO8HGl7QRGiTPVhWZ8FFlPvCYByYVLnZwixXZZjQUFllb6COMHwOLAhAk LpUiGsFKRqBJZcXAiwYWSuAFM5PIB4LFYmQCZgFR9Q AmBuFOXtQTV5PXJrFYRoMCNmhc6VSHHcGGHnJWL9LuVnLKJhDYTcZPsrOCIfUJW8DVwwFYJaMNNoJB1K NfXzRAOjWkz9BRDcASOcBMZyhs3LNHBnKGYkIPlcAUAwZAXgUMUhCFspJJWeMWX7YFp4ODCsNGVaOF8J ThTmZFSaHab4PtybCRGeHBItlp8CQVIxYMWkLEv1GU WrUYBaQJGvHHzuGCUoORLqOKHmPYRfKFQgZA0MAsWbQFKpRgSoVtNuKFQzMKYesy9SqTIuaDwbbd5MBU bZBp0YcTelDCYpSZuhJm2zsJTjCKVvYCTTUn3OviMpRJMkFVVMZHgoKONhHJFrSLT6HtAyPCE0LPV2SR k0M8C6PQHlMPQ5EOq5I5ZmAwJ4GML0NSAmFYLiVAv7 IUBoCjkkSuIhDTE1IblwMLk7GwY+VT7lWNt+Xp9Tp1EtjqG1hlHkRVvjFLGkOO2OBLBAC2ZYJy== ID Date Data Source [id number] 02/28/2021 01:25:[address] [facility] Name Value Range Interpretation Code Description Data Ema rce(s) Supporting Document(s) Hepatitis A virus IgM Ab [Presence] in Serum or Plasma by Im munoassay Non Reactive [facility] No acute infection, susceptible to infec tion. Hepatitis B virus core IgM Ab [Presence] in Serum or Plasma by Immunoassay [facility] Reactive [facility] IgM antibodies to HBc were not detected, does not exclude the possibility of exposure to HBV. Hepatitis C virus Ab [Presence] in Serum or Plasma by Immuno assay Non Reactive [facility] No serological evidence of active infect ion. If recent exposure is suspected, test for HCV RNA. Hepatitis B virus surface Ag [Presence] in Serum or Plasma b y Immunoassay Non Reactive [facility] No active or previous infection. Suscept ible to infection. ID Date Data Source [id number] 02/28/2021 12:39:[address] [facility] Name Value Range Interpretation Code Description Data Ema rce(s) Supporting Document(s) Leukocytes [#/volume] in Blood by Automated count 4.0 10*3/uL 4-10 [facility] Erythrocytes [#/volume] in Blood by Automated count 2.97 10*6/uL 4.6- 6.1 L [facility] Hemoglobin [Mass/volume] in Blood 8.4 g/dL 13.5-18 L [facility] Hematocrit [Volume Fraction] of Blood by Automated count 25.4 % 4 1-53 L [facility] Erythrocyte mean corpuscular volume [Entitic volume] by Auto mated count 85.4 fL 80-96 [facility] Erythrocyte mean corpuscular hemoglobin [Entitic mass] by Automated count 28.3 pg 27-33 [facility] Erythrocyte mean corpuscular hemoglobin concentration [Mass/volume] by Automated count 33.1 g/[facility] width [Ratio] by Automated count 16.7 % 11.5-14.5 H [facility] Platelets [#/volume] in Blood by Automated count 190 10*3/uL 150-400 [facility] Differential cell count method - Blood [facility] Neutrophils/100 leukocytes in Blood by Automated count 74 % [facility] Lymphocytes/100 leukocytes in Blood by Automated count 6 % [facility] Monocytes/100 leukocytes in Blood by Automated count 12 % [facility] Eosinophils/100 leukocytes in Blood by Automated count 6 % [facility] Basophils/100 leukocytes in Blood by Automated count 2 % [facility] Neutrophils [#/volume] in Blood by Automated count 3.00 10*3/uL 1.8-7 .0 [facility] Lymphocytes [#/volume] in Blood by Automated count 0.25 10*3/uL 1.2-4 .0 L [facility] Monocytes [#/volume] in Blood by Automated count 0.46 10*3/uL 0-0.8 [facility] Eosinophils [#/volume] in Blood by Automated count 0.26 10*3/uL 0-0.5 [facility] Basophils [#/volume] in Blood by Automated count 0.06 10*3/uL 0-0.2 [facility] Nucleated erythrocytes/100 leukocytes [Ratio] in Blood by Automated count 0 /100{WBCs} 0-0 [facility] ID Date Data Source [id number] 02/28/2021 12:59:20 PM [facility] Value Range Interpretation Code Description Data Ema rce(s) Supporting Document(s) Prothrombin time (PT) 14.6 s 11.6-14.0 H [facility] INR in Platelet poor plasma by Coagulation assay 1.18 [facility] Routine intensity oral anticoagulation I NR is typically 2.0-3.0. Target INR must be clinically individualized. ID Date Data Source [id number] 02/28/2021 12:59:20 PM [facility] Value Range Interpretation Code Description Data Ema rce(s) Supporting Document(s) aPTT in Platelet poor plasma by Coagulation assay 33.5 s 24.0-33. 0 H [facility] ID Date Data Source [id number] 02/28/2021 01:24:10 PM [facility] Value Range Interpretation Code Description Data Ema rce(s) Supporting Document(s) [id number] [Mass/volume] in Serum or Plasma 45 ng/mL <9 H [facility] ID Date Data Source [id number] 02/28/2021 01:24:10 PM [facility] Name Value Range Interpretation Code Description Data Ema rce(s) Supporting Document(s) Albumin [Mass/volume] in Serum or Plasma by Bromocresol green (BCG) dye binding method 3.4 g/dL 3.5-5.2 [facility] Bil[facility].total [Mass/volume] in Serum or Plasma 0.7 mg/dL <1.2 [facility] Calcium [Mass/volume] in Serum or Plasma 10.6 mg/dL 8.8-10.2 H [facility] Chloride [Moles/volume] in Serum or Plasma 97 mmol/L 98-107 L [facility] Creatinine [Mass/volume] in Serum or Plasma 0.94 mg/dL 0.70-1.20 [facility] Glucose [Mass/volume] in Serum or Plasma 138 mg/dL 70-140 [facility] Alkaline phosphatase [Enzymatic activity/volume] in Serum or Plasma 168 U/L 40-129 H [facility] Potassium [Moles/volume] in Serum or Plasma 4.1 mmol/L 3.4-5.1 [facility] Protein [Mass/volume] in Serum or Plasma 7.1 g/dL 6.4-8.3 [facility] Sodium [Moles/volume] in Serum or Plasma 130 mmol/L 136-145 L [facility] Aspartate aminotransferase [Enzymatic activity/volume] in Serum or Plasma 60 U/L <40 H [facility] Urea nitrogen [Mass/volume] in Serum or Plasma 17 mg/dL 8-23 [facility] Osmolality of Serum or Plasma by calculation 274 mosm/kg 275-300 L [facility] Creatinine/Urea nitrogen [Mass Ratio] in Serum or Plasma 18 [facility] Bicarbonate [Moles/volume] in Serum 22 mmol/L 22-29 [facility] Alanine aminotransferase [Enzymatic activity/volume] in Seru m or Plasma 36 U/L <41 [facility] Anion gap 3 in Serum or Plasma 11 mmol/L 8-15 [facility] Glomerular filtration rate/1.73 sq M pre dicted among non-blacks [Volume Rate/Area] in Serum or Plasma by Creatinine-based formula (MDRD) 77 mL/min/1.73m2 >60 [facility] Glomerular filtration rate/1.73 sq M pre dicted among blacks [Volume Rate/Area] in Serum or Plasma by Creatinine-based formula (MDRD) 90 mL/min/1.73m2 >60 [facility] ID Date Data Source [id number] 02/18/2021 08:24:57 AM EDT [facility] Name Value Range Interpretation Code Description Data Ema rce(s) Supporting Document(s) POC GLUCOSE 124 mg/dL (70-99) H [facility] PERFORMED BY CLINICAL STAFF ID Date Data Source [id number] 02/18/2021 07:04:16 AM EDT [facility] Name Value Range Interpretation Code Description Data Ema rce(s) Supporting Document(s) SODIUM 141 mmol/L (136-145) [facility] POTASSIUM 3.8 mmol/L (3.6-5.2) [facility] CHLORIDE 111 mmol/L (100-108) H [facility] CO2 25 mmol/L (22-31) [facility] ANION GAP 5 mmol/L (7-16) L [facility] UREA NITROGEN 13 mg/dL (7-24) [facility] CREATININE 0.75 mg/dL (0.80-1.30) L [facility] BUN/CREAT RATIO 17.3 RATIO (10.0-20.0) [facility] GLUCOSE 137 mg/dL (70-99) H [facility] CALCIUM 9.0 mg/dL (8.4-10.2) [facility] TOTAL PROTEIN 5.5 g/dL (6.4-8.2) L [facility] ALBUMIN 1.8 g/dL (3.2-4.5) L [facility] GLOBULIN 3.7 g/dL (2.7-4.3) [facility] ALB/GLOB RATIO 0.5 RATIO [facility] ALKALINE PHOSPHATASE 139 U/L (45-117) H [facility] BILIRUBIN,TOTAL 0.8 mg/dL (0.0-1.0) [facility] PLEASE NOTE:Total bilirubin results may be falselyelevated in patients taking Eltrombopag. AST (SGOT) 63 U/L (11-39) H [facility] ALT (SGPT) 39 U/L (12-78) [facility] GFR >60 ml/min/1.73m2 (>59) [facility] GFR ( AMER) >60 ml/min/1.73m2 (>59) [facility] GFR INTERPRETATION [facility] --NORMAL KIDNEY FUNCTION OR MILD DISEASE - GFR >OR= 60CHRONIC KIDNEY DISEASE - GFR 15 - 59RENAL FAILURE - GFR <15 Est. GFR calculation based on the MDRDstudy equation, which assumes a steadystate for creatinine. Est. GFR should notbe used for medication dosing. ID Date Data Source [id number] 02/18/2021 06:27:58 AM EDT [facility] Name Value Range Interpretation Code Description Data Ema rce(s) Supporting Document(s) WBC 3.0 10*3/uL (4.1-11.0) L [facility] RBC 2.62 10*6/uL (4.60-6.10) L [facility] HGB 7.4 g/dL (13.5-18.0) L [facility] HCT 22.4 % (41.0-53.0) L [facility] MCV 85.4 fL (80.0-95.0) [facility] MCH 28.3 pg (27.0-32.0) [facility] MCHC 33.1 g/dL (32.0-36.0) [facility] RDW 16.2 % (10.5-14.5) H [facility] PLT 125 10*3/uL (150-450) L [facility] MPV 8.6 fL (7.1-10.7) [facility] ID Date Data Source [id number] 02/18/2021 02:59:19 AM EDT [facility] Name Value Range Interpretation Code Description Data Ema rce(s) Supporting Document(s) POC GLUCOSE 126 mg/dL (70-99) H [facility] NOTIFIED NURSEPERFORMED BY CLINICAL S TAFF ID Date Data Source [id number] 02/17/2021 08:44:14 PM EDT [facility] Name Value Range Interpretation Code Description Data Ema rce(s) Supporting Document(s) POC GLUCOSE 183 mg/dL (70-99) H [facility] NOTIFIED NURSEPERFORMED BY CLINICAL S TAFF ID Date Data Source [id number] 02/17/2021 08:20:47 PM EDT [facility] Name Value Range Interpretation Code Description Data Ema rce(s) Supporting Document(s) WBC 3.8 10*3/uL (4.1-11.0) L [facility] [place] RBC 3.01 10*6/uL (4.60-6.10) L [facility] HGB 8.3 g/dL (13.5-18.0) L [facility] HCT 25.6 % (41.0-53.0) L [facility] MCV 85.3 fL (80.0-95.0) [facility] MCH 27.5 pg (27.0-32.0) [facility] MCHC 32.2 g/dL (32.0-36.0) [facility] RDW 16.4 % (10.5-14.5) H [facility] PLT 157 10*3/uL (150-450) [facility] MPV 7.9 fL (7.1-10.7) [facility] ID Date Data Source [id number] 02/17/2021 05:44:15 PM EDT [facility] Name Value Range Interpretation Code Description Data Ema rce(s) Supporting Document(s) POC GLUCOSE 141 mg/dL (70-99) H [facility] NOTIFIED NURSEPERFORMED BY CLINICAL S TAFF ID Date Data Source [id number] 02/17/2021 02:11:35 PM EDT [facility] Name Value Range Interpretation Code Description Data Ema rce(s) Supporting Document(s) WBC 3.3 10*3/uL (4.1-11.0) L [facility] [place] RBC 2.86 10*6/uL (4.60-6.10) L [facility] HGB 7.9 g/dL (13.5-18.0) L [facility] HCT 24.5 % (41.0-53.0) L [facility] MCV 85.6 fL (80.0-95.0) [facility] MCH 27.7 pg (27.0-32.0) [facility] MCHC 32.3 g/dL (32.0-36.0) [facility] RDW 16.2 % (10.5-14.5) H [facility] PLT 136 10*3/uL (150-450) L [facility] MPV 8.9 fL (7.1-10.7) [facility] ID Date Data Source [id number] 02/17/2021 12:45:18 PM EDT [facility] Name Value Range Interpretation Code Description Data Ema rce(s) Supporting Document(s) POC GLUCOSE 151 mg/dL (70-99) H [facility] PERFORMED BY CLINICAL STAFF ID Date Data Source [id number] 02/17/2021 09:02:18 AM EDT [facility] Name Value Range Interpretation Code Description Data Ema rce(s) Supporting Document(s) POC GLUCOSE 120 mg/dL (70-99) H [facility] PERFORMED BY CLINICAL STAFF ID Date Data Source [id number] 02/17/2021 08:36:01 AM EDT [facility] Name Value Range Interpretation Code Description Data Ema rce(s) Supporting Document(s) SODIUM 143 mmol/L (136-145) [facility] POTASSIUM 3.6 mmol/L (3.6-5.2) [facility] CHLORIDE 113 mmol/L (100-108) H [facility] CO2 25 mmol/L (22-31) [facility] ANION GAP 5 mmol/L (7-16) L [facility] UREA NITROGEN 16 mg/dL (7-24) [facility] CREATININE 0.80 mg/dL (0.80-1.30) [facility] BUN/CREAT RATIO 20.0 RATIO (10.0-20.0) [facility] GLUCOSE 126 mg/dL (70-99) H [facility] CALCIUM 8.6 mg/dL (8.4-10.2) [facility] TOTAL PROTEIN 5.7 g/dL (6.4-8.2) L [facility] ALBUMIN 1.9 g/dL (3.2-4.5) L [facility] GLOBULIN 3.8 g/dL (2.7-4.3) [facility] ALB/GLOB RATIO 0.5 RATIO [facility] ALKALINE PHOSPHATASE 141 U/L (45-117) H [facility] BILIRUBIN,TOTAL 1.2 mg/dL (0.0-1.0) H [facility] PLEASE NOTE:Total bilirubin results may be falselyelevated in patients taking Eltrombopag. AST (SGOT) 56 U/L (11-39) H [facility] ALT (SGPT) 37 U/L (12-78) [facility] GFR >60 ml/min/1.73m2 (>59) [facility] GFR ( AMER) >60 ml/min/1.73m2 (>59) [facility] GFR INTERPRETATION [facility] --NORMAL KIDNEY FUNCTION OR MILD DISEASE - GFR >OR= 60CHRONIC KIDNEY DISEASE - GFR 15 - 59RENAL FAILURE - GFR <15 Est. GFR calculation based on the MDRDstudy equation, which assumes a steadystate for creatinine. Est. GFR should notbe used for medication dosing. ID Date Data Source [id number] 02/17/2021 08:02:19 AM EDT [facility] Name Value Range Interpretation Code Description Data Ema rce(s) Supporting Document(s) WBC 3.0 10*3/uL (4.1-11.0) L [facility] [place] RBC 2.69 10*6/uL (4.60-6.10) L [facility] HGB 7.4 g/dL (13.5-18.0) L [facility] HCT 22.8 % (41.0-53.0) L [facility] PERFORMED AT [address] [facility] [place] [address] MCV 84.6 fL (80.0-95.0) [facility] MCH 27.6 pg (27.0-32.0) [facility] MCHC 32.6 g/dL (32.0-36.0) [facility] RDW 16.5 % (10.5-14.5) H [facility] PLT 129 10*3/uL (150-450) L [facility] MPV 8.7 fL (7.1-10.7) [facility] ID Date Data Source [id number] 02/17/2021 04:40:08 AM EDT [facility] Name Value Range Interpretation Code Description Data Ema rce(s) Supporting Document(s) POC GLUCOSE 125 mg/dL (70-99) H [facility] PERFORMED BY CLINICAL STAFF ID Date Data Source [id number] 02/16/2021 10:37:35 PM EDT [facility] Name Value Range Interpretation Code Description Data Ema rce(s) Supporting Document(s) POC GLUCOSE 169 mg/dL (70-99) H [facility] NOTIFIED NURSEPERFORMED BY CLINICAL S TAFF ID Date Data Source [id number] 02/16/2021 08:37:46 PM EDT [facility] Name Value Range Interpretation Code Description Data Ema rce(s) Supporting Document(s) WBC 4.2 10*3/uL (4.1-11.0) [facility] [place] RBC 3.03 10*6/uL (4.60-6.10) L [facility] HGB 8.4 g/dL (13.5-18.0) L [facility] HCT 25.9 % (41.0-53.0) L [facility] PERFORMED AT [address] [place] [address] MCV 85.3 fL (80.0-95.0) [facility] MCH 27.5 pg (27.0-32.0) [facility] MCHC 32.3 g/dL (32.0-36.0) [facility] RDW 16.0 % (10.5-14.5) H [facility] PLT 147 10*3/uL (150-450) L [facility] MPV 8.5 fL (7.1-10.7) [facility] ID Date Data Source [id number] 02/16/2021 05:27:15 PM EDT [facility] Name Value Range Interpretation Code Description Data Ema rce(s) Supporting Document(s) POC GLUCOSE 159 mg/dL (70-99) H [facility] PERFORMED BY CLINICAL STAFF ID Date Data Source [id number] 02/16/2021 02:11:39 PM EDT [facility] Name Value Range Interpretation Code Description Data Ema rce(s) Supporting Document(s) SODIUM 141 mmol/L (136-145) [facility] POTASSIUM 3.7 mmol/L (3.6-5.2) [facility] CHLORIDE 111 mmol/L (100-108) H [facility] CO2 24 mmol/L (22-31) [facility] ANION GAP 6 mmol/L (7-16) L [facility] UREA NITROGEN 17 mg/dL (7-24) [facility] CREATININE 0.84 mg/dL (0.80-1.30) [facility] BUN/CREAT RATIO 20.2 RATIO (10.0-20.0) H [facility] GLUCOSE 157 mg/dL (70-99) H [facility] CALCIUM 9.5 mg/dL (8.4-10.2) [facility] GFR >60 ml/min/1.73m2 (>59) [facility] GFR ( AMER) >60 ml/min/1.73m2 (>59) [facility] GFR INTERPRETATION [facility] --NORMAL KIDNEY FUNCTION OR MILD DISEASE - GFR >OR= 60CHRONIC KIDNEY DISEASE - GFR 15 - 59RENAL FAILURE - GFR <15 Est. GFR calculation based on the MDRDstudy equation, which assumes a steadystate for creatinine. Est. GFR should notbe used for medication dosing. ID Date Data Source [id number] 02/16/2021 01:45:41 PM EDT [facility] Name Value Range Interpretation Code Description Data Ema rce(s) Supporting Document(s) WBC 3.5 10*3/uL (4.1-11.0) L [facility] [place] RBC 2.55 10*6/uL (4.60-6.10) L [facility] HGB 7.0 g/dL (13.5-18.0) L [facility] HCT 21.6 % (41.0-53.0) L [facility] PERFORMED AT [address] [facility] [place] [place] [address] MCV 84.4 fL (80.0-95.0) [facility] MCH 27.4 pg (27.0-32.0) [facility] MCHC 32.5 g/dL (32.0-36.0) [facility] RDW 16.4 % (10.5-14.5) H [facility] PLT 147 10*3/uL (150-450) L [facility] MPV 8.8 fL (7.1-10.7) [facility] ID Date Data Source [id number] 02/16/2021 12:12:49 PM EDT [facility] Name Value Range Interpretation Code Description Data Ema rce(s) Supporting Document(s) POC GLUCOSE 182 mg/dL (70-99) H [facility] NOTIFIED NURSEPERFORMED BY CLINICAL S TAFF ID Date Data Source [id number] 02/16/2021 08:47:28 AM EDT [facility] Name Value Range Interpretation Code Description Data Ema rce(s) Supporting Document(s) POC GLUCOSE 141 mg/dL (70-99) H [facility] PERFORMED BY CLINICAL STAFF ID Date Data Source [id number] 02/16/2021 03:13:38 AM EDT [facility] Name Value Range Interpretation Code Description Data Ema rce(s) Supporting Document(s) POC GLUCOSE 126 mg/dL (70-99) H [facility] PERFORMED BY CLINICAL STAFF ID Date Data Source [id number] 02/16/2021 07:25:00 AM EDT [facility] DATE OF EXAM: 02/16/2021HEST, SINGLE PO RTABLE VIEW. INDICATION: Chest pain COMPARISON: 11/18/2020 TECHNIQUE: A portable radiograph of the chest was obtained. FINDINGS: No focal consolidation, pleural effusions or pulmonary edema is seen. The cardiomediastinal silhouette is mildly prominent. Visualized osseous structures are within normal limits. IMPRESSION: No acute abnormality is seen. Professional interpretation performed at [facility] .End of diagnostic report for accession: [id number] Interpreted: David Bueno MDTranscribed: 02/16/2021 07:25 AMSigned: 0 02/16/2021 07:25 AM David Bueno MD [facility] # [id number] BILL # [id number] Name Value Range Interpretation Code Description Data Ema rce(s) Supporting Document(s) ID Date Data Source [id number] 02/17/2021 12:48:06 AM EDT [facility] EXP DATE 1PATI ENT ABO/Rh A POSITIVEANTIBODY SCREEN NEGATIVETESTING SITE PERFORMED AT [address] [place] [address] BANK COMMENT BLOOD TYPE CONFIRMED.UNIT NUMBER [id number] COMPONENT TYPE LEUKOPOOR RED CELLSUNIT DIVISION 00STATUS OF UNIT TRANSFUSEDTRANSFUSION STATUS OK TO TRANSFUSECROSSMATCH RESULT COMPATIBLE Name Value Range Interpretation Code Description Data Ema rce(s) Supporting Document(s) TYPE AND SCREEN [facility] PATIENT ABO/Rh A POSITIVE ID Date Data Source [id number] 02/16/2021 12:54:29 AM EDT [facility] Name Value Range Interpretation Code Description Data Ema rce(s) Supporting Document(s) PT 12.1 s (9.2-11.9) H [facility] PERFORMED AT [address] [facility] [address] INR 1.16 [facility] SUGGESTED THERAPEUTIC RANGES USING INR F ORSTABILIZED ANTICOAGULATED PATIENTS:STANDARD DOSE THERAPY INR 2.0-3.0 DVT, PE, PREVENT DVT OR EMBOLISMHIGH DOSE THERAPY INR 2.5-3.5 PREVENT EMBOLISM FROM MECHANICAL HEART VALVE ID Date Data Source [id number] 02/16/2021 12:44:12 AM EDT [facility] Name Value Range Interpretation Code Description Data Ema rce(s) Supporting Document(s) TOTAL PROTEIN 6.7 g/dL (6.4-8.2) [facility] ALBUMIN 2.2 g/dL (3.2-4.5) L [facility] GLOBULIN 4.5 g/dL (2.7-4.3) H [facility] ALB/GLOB RATIO 0.5 RATIO [facility] BILIRUBIN,TOTAL 1.3 mg/dL (0.0-1.0) H [facility] PLEASE NOTE:Total bilirubin results may be falselyelevated in patients taking Eltrombopag. BILIRUBIN,CONJUGATED 0.4 mg/dL (0.0-0.3) H [facility] BILIRUBIN,UNCONJ. 0.9 mg/dL (0.0-0.7) H [facility] ALKALINE PHOSPHATASE 155 U/L (45-117) H [facility] AST (SGOT) 63 U/L (11-39) H [facility] ALT (SGPT) 44 U/L (12-78) [facility] ID Date Data Source [id number] 02/16/2021 12:44:12 AM EDT [facility] Name Value Range Interpretation Code Description Data Ema rce(s) Supporting Document(s) TROPONIN I <0.05 ng/mL (<0.05) [facility] Less than 0.05: Myocardial injury unlike lyGreater than or equal to 0.05: Highly suggestive of myocardial injuryCorrelation with rise and/or fall ofserial troponins, clinical symptomsand ECG changes is necessary. ID Date Data Source [id number] 02/16/2021 12:44:12 AM EDT [facility] Name Value Range Interpretation Code Description Data Ema rce(s) Supporting Document(s) SODIUM 140 mmol/L (136-145) [facility] POTASSIUM 4.0 mmol/L (3.6-5.2) [facility] CHLORIDE 112 mmol/L (100-108) H [facility] CO2 22 mmol/L (22-31) [facility] ANION GAP 6 mmol/L (7-16) L [facility] UREA NITROGEN 18 mg/dL (7-24) [facility] CREATININE 0.83 mg/dL (0.80-1.30) [facility] BUN/CREAT RATIO 21.7 RATIO (10.0-20.0) H [facility] GLUCOSE 131 mg/dL (70-99) H [facility] CALCIUM 9.7 mg/dL (8.4-10.2) [facility] GFR >60 ml/min/1.73m2 (>59) [facility] GFR ( AMER) >60 ml/min/1.73m2 (>59) [facility] GFR INTERPRETATION [facility] --NORMAL KIDNEY FUNCTION OR MILD DISEASE - GFR >OR= 60CHRONIC KIDNEY DISEASE - GFR 15 - 59RENAL FAILURE - GFR <15 Est. GFR calculation based on the MDRDstudy equation, which assumes a steadystate for creatinine. Est. GFR should notbe used for medication dosing. ID Date Data Source [id number] 02/16/2021 12:28:08 AM EDT [facility] Name Value Range Interpretation Code Description Data Ema rce(s) Supporting Document(s) WBC 4.4 10*3/uL (4.1-11.0) [facility] [place] RBC 3.03 10*6/uL (4.60-6.10) L [facility] HGB 8.2 g/dL (13.5-18.0) L [facility] HCT 25.3 % (41.0-53.0) L [facility] MCV 83.7 fL (80.0-95.0) [facility] MCH 27.0 pg (27.0-32.0) [facility] MCHC 32.2 g/dL (32.0-36.0) [facility] RDW 16.2 % (10.5-14.5) H [facility] PLT 164 10*3/uL (150-450) [facility] MPV 9.2 fL (7.1-10.7) [facility] NEUT % 72.8 % (35.0-75.0) [facility] LYMPH % 8.6 % (16.0-52.0) L [facility] MONO % 10.8 % (0.0-8.0) H [facility] EOS % 7.3 % (0.0-5.0) H [facility] BASO % 0.5 % (0.0-4.0) [facility] NEUT # 3.2 10*3/uL (1.8-7.7) [facility] LYMPH # 0.4 10*3/uL (1.2-4.8) L [facility] MONO # 0.5 10*3/uL (0.0-0.8) [facility] Eosinophils [#/volume] in Blood by Automated count 0.3 10*3/uL (0.0-0 .5) [facility] BASO # 0.0 10*3/uL (0.0-0.2) [facility] ID Date Data Source [id number] 02/17/2021 07:11:40 AM EDT [facility] SPECIMEN DESCRIPTION URINE, COLLE CTION METHOD NOT SPECIFIEDCULTURE RESULTS NO GROWTHREPORT STATUS FINAL 02/17/2021 Name Value Range Interpretation Code Description Data Ema rce(s) Supporting Document(s) ID Date Data Source [id number] 02/16/2021 01:00:13 AM EDT [facility] Name Value Range Interpretation Code Description Data Ema rce(s) Supporting Document(s) URINE WBC (0-5) [facility] URINE RBC (0-2) [facility] BACTERIA 1+ [HPF] [facility] MUCUS 1+ [HPF] [facility] ID Date Data Source [id number] 02/16/2021 12:42:47 AM EDT [facility] Name Value Range Interpretation Code Description Data Ema rce(s) Supporting Document(s) COLOR [facility] PERFORMED AT [address] [place] [address] APPEARANCE [facility] SPEC GRAV URINE 1.031 (1.003-1.030) H [facility] PH URINE 6.5 (5.0-7.5) [facility] LEUK ESTERASE (NEG) A [facility] NITRITE URINE (NEG) [facility] PROTEIN URINE (NEG) [facility] GLUCOSE URINE (NEG) [facility] KETONE URINE (NEG) [facility] UROBILINOGEN 0.2 mg/dL (0-1.0) [facility] BILIRUBIN URINE (NEG) [facility] BLOOD/HGB URINE 2+ (NEG) A [facility] ID Date Data Source [id number] 02/15/2021 05:36:00 PM EDT [facility] Name Value Range Interpretation Code Description Data Ema rce(s) Supporting Document(s) SARS coronavirus 2 RNA [Presence] in Res piratory specimen by JUSTEN with probe detection NEGATIVE [facility] This lab was ordered by [facility] a nd reported by [facility]. ID Date Data Source [id number] 02/14/2021 10:27:00 AM EDT [facility] ([facility]) Name Value Range Interpretation Code Description Data Ema rce(s) Supporting Document(s) Glucose [Presence] in Urine Laboratory test result [facility] ([facility]) Protein [Presence] in Urine by Test strip 100 mg/dL [facility] ([facility]) Ua Nitrite Laboratory test result [facility] ([facility]) Blood [Presence] in Urine by Visual Laboratory test result [facility] ([facility]) Ua Leuko Laboratory test result [facility] ([facility]) Color of Urine Laboratory test result [facility] ([facility]) Ketones [Presence] in Urine by Test strip Laboratory test result [facility] ([facility]) Clarity of Urine Laboratory test result [facility] ([facility]) Ua Specific [place] 1.025 1.003-1.030 [facility] NT ([facility]) pH of Urine by Test strip 7.0 5.0-7.5 [facility] ([facility]) Bilirubin.total [Presence] in Urine by Test strip Laboratory test res ult [facility] ([facility]) Urobilinogen [Mass/volume] in Urine by Test strip 1.0 E.U./dL 0.0-1.0 [facility] ([facility]) ID Date Data Source [id number] 02/13/2021 05:53:00 PM T [facility] Surgical Pathology ReportName: Clyde LINARES MAARLERTMRN: [id number] Number: [id number] Date: 02/12/2021 00:00Received Date: 02/12/2021 14:16Physician(s): АННА BRAUN MD ADJAPONG, OPOKU, MDSpecimen(s) ReceivedA: Material received for consultation, [facility], [id number] HistoryLiver bx ([id number]). Right lobe liver mass. Confirm HCC. Consultation.DiagnosisLIVER, NEEDLE BIOPSY ([id number], 02/07/21): HEPATOCELLULAR CARCINOMA,MODERATELY DIFFERENTIATED. CIRRHOSIS. (See microscopic description).Electronically Signed By Donnie West M.D., Attending Pathologist02/13/2021 17:53:35 [facility] [place], [place], is 1 H and Estained slide and 6 specially stained slides, 1 paraffin block, [id number], with the corresponding pathology report. Microscopic [...] developed and their performance characteristics determined by [facility] Pathology department. They have not been cleared or approved by the USFood and Drug Administration. The FDA has determined that such clearanceor approval is not necessary. Name Value Range Interpretation Code Description Data Ema rce(s) Supporting Document(s) ID Date Data Source [id number] 01/31/2021 06:21:13 AM EDT [facility] [place] Name Value Range Interpretation Code Description Data Ema rce(s) Supporting Document(s) SODIUM 139 mmol/L (136-145) [facility] POTASSIUM 3.7 mmol/L (3.6-5.2) [facility] CHLORIDE 106 mmol/L (100-108) [facility] CO2 24 mmol/L (22-31) [facility] ANION GAP 9 mmol/L (7-16) [facility] UREA NITROGEN 17 mg/dL (7-24) [facility] CREATININE 0.95 mg/dL (0.80-1.30) [facility] BUN/CREAT RATIO 17.9 RATIO (10.0-20.0) [facility] GLUCOSE 119 mg/dL (70-99) H [facility] CALCIUM 9.4 mg/dL (8.4-10.2) [facility] GFR >60 ml/min/1.73m2 (>59) [facility] GFR ( AMER) >60 ml/min/1.73m2 (>59) [facility] GFR INTERPRETATION [facility] --NORMAL KIDNEY FUNCTION OR MILD DISEASE - GFR >OR= 60CHRONIC KIDNEY DISEASE - GFR 15 - 59RENAL FAILURE - GFR <15 Est. GFR calculation based on the MDRDstudy equation, which assumes a steadystate for creatinine. Est. GFR should notbe used for medication dosing. ID Date Data Source [id number] 01/31/2021 05:49:23 AM EDT [facility] [place] Name Value Range Interpretation Code Description Data Ema rce(s) Supporting Document(s) WBC 3.6 10*3/uL (4.1-11.0) L [facility] [place] RBC 2.70 10*6/uL (4.60-6.10) L [facility] HGB 7.3 g/dL (13.5-18.0) L [facility] HCT 22.2 % (41.0-53.0) L [facility] MCV 82.2 fL (80.0-95.0) [facility] MCH 27.2 pg (27.0-32.0) [facility] MCHC 33.1 g/dL (32.0-36.0) [facility] RDW 16.2 % (10.5-14.5) H [facility] PLT 178 10*3/uL (150-450) [facility] MPV 8.2 fL (7.1-10.7) [facility] ID Date Data Source [id number] 01/31/2021 02:58:00 AM EDT [facility] Name Value Range Interpretation Code Description Data Ema rce(s) Supporting Document(s) SARS coronavirus 2 RNA [Presence] in Res piratory specimen by JUSTEN with probe detection NOT DETECTED [facility] This lab was reported by [facility]. ID Date Data Source [id number] 01/31/2021 03:56:47 AM EDT [facility] Name Value Range Interpretation Code Description Data Ema rce(s) Supporting Document(s) SPECIMEN DESCRIPTION [facility] INFLUENZA A (NEG) [facility] INFLUENZA B (NEG) [facility] RSV (NEG) [facility] COMMENT [facility] THE U.[place]. FDA HAS MADE THIS TEST AVAILABL EUNDER AN EMERGENCY USE AUTHORIZATION(EUA) FOR THE DETECTION AND/OR DIAGNOSISOF THE VIRUS THAT CAUSES COVID-19.PERFORMED AT [address] [facility] [id number] COVID19 RESULT (NDET) [facility] THIS ASSAY AMPLIFIES AND DETECTSTHE TARG ET RNA USING REAL-TIME PCR.TESTING PERFORMED ON [employer] GENEXPERTNEGATIVE 2019_NCOV RT-PCR RESULTS DONOT PRECLUDE 2019_NCOV INFECTION ANDSHOULD NOT BE USED THE SOLE BASISFOR PATIENT MANAGEMENT DECISIONS. FIRST TEST [facility] EMPLOYED IN HLTHCARE [facility] SYMPTOMATIC [facility] DATE OF SYMPT ONSET [facility] HOSPITALIZED [facility] CONGREGATE CARE SET [facility] ID Date Data Source [id number] 01/31/2021 08:36:00 AM EDT [facility] DATE OF EXAM: 1EXAM: CT ABDOMEN AND PELVIS WITHOUT AND WITH [...] above. A contemporaneous report was provided by [facility] at the time of this examination, reporting similar findings. Professional interpretation performed at [facility] .End of diagnostic report for accession: [id number] Interpreted: Shahnaz Ramos MDTranscribed: 01/31/2021 08:23 AMSigned: 01/31/2021 08:36 AM Shahnaz Ramos MD [facility] # [id number] BILL # [id number] Name Value Range Interpretation Code Description Data Ema rce(s) Supporting Document(s) ID Date Data Source [id number] 02/01/2021 09:19:09 AM EDT [facility] SPECIMEN DESCRIPTION URINE, COLLE CTION METHOD NOT SPECIFIEDCULTURE RESULTS MIXED UROGENITAL DEIRDRE; PLEASE SUBMIT A NEW SPEC IMEN IF CLINICALLY INDICATED.REPORT STATUS FINAL 02/01/2021 Name Value Range Interpretation Code Description Data Ema rce(s) Supporting Document(s) ID Date Data Source [id number] 01/31/2021 12:50:39 AM EDT [facility] Name Value Range Interpretation Code Description Data Ema rce(s) Supporting Document(s) URINE WBC (0-5) [facility] URINE RBC (0-2) [facility] ID Date Data Source [id number] 01/31/2021 12:39:03 AM EDT [facility] Name Value Range Interpretation Code Description Data Ema rce(s) Supporting Document(s) COLOR [facility] TESTING PERFORMED ON CENTRIFUGED SAMPLE APPEARANCE [facility] SPEC GRAV URINE 1.012 (1.003-1.030) [facility] PH URINE 6.5 (5.0-7.5) [facility] LEUK ESTERASE 2+ (NEG) A [facility] NITRITE URINE (NEG) [facility] PROTEIN URINE 2+ (NEG) A [facility] GLUCOSE URINE (NEG) [facility] KETONE URINE (NEG) [facility] [place] UROBILINOGEN 0.2 mg/dL (0-1.0) [facility] [place] BILIRUBIN URINE (NEG) [facility] BLOOD/HGB URINE 3+ (NEG) A [facility] ID Date Data Source [id number] 01/31/2021 12:42:08 AM EDT [facility] Name Value Range Interpretation Code Description Data Ema rce(s) Supporting Document(s) SODIUM 137 mmol/L (136-145) [facility] POTASSIUM 3.7 mmol/L (3.6-5.2) [facility] CHLORIDE 105 mmol/L (100-108) [facility] CO2 23 mmol/L (22-31) [facility] ANION GAP 9 mmol/L (7-16) [facility] UREA NITROGEN 17 mg/dL (7-24) [facility] CREATININE 1.02 mg/dL (0.80-1.30) [facility] BUN/CREAT RATIO 16.7 RATIO (10.0-20.0) [facility] GLUCOSE 147 mg/dL (70-99) H [facility] CALCIUM 9.6 mg/dL (8.4-10.2) [facility] GFR >60 ml/min/1.73m2 (>59) [facility] GFR ( AMER) >60 ml/min/1.73m2 (>59) [facility] GFR INTERPRETATION [facility] --NORMAL KIDNEY FUNCTION OR MILD DISEASE - GFR >OR= 60CHRONIC KIDNEY DISEASE - GFR 15 - 59RENAL FAILURE - GFR <15 Est. GFR calculation based on the MDRDstudy equation, which assumes a steadystate for creatinine. Est. GFR should notbe used for medication dosing. ID Date Data Source [id number] 01/31/2021 12:29:39 AM EDT [facility] Name Value Range Interpretation Code Description Data Ema rce(s) Supporting Document(s) WBC 4.0 10*3/uL (4.1-11.0) L [facility] [place] RBC 2.83 10*6/uL (4.60-6.10) L [facility] HGB 7.6 g/dL (13.5-18.0) L [facility] HCT 23.2 % (41.0-53.0) L [facility] MCV 82.1 fL (80.0-95.0) [facility] MCH 26.9 pg (27.0-32.0) L [facility] MCHC 32.8 g/dL (32.0-36.0) [facility] RDW 16.3 % (10.5-14.5) H [facility] PLT 187 10*3/uL (150-450) [facility] MPV 8.3 fL (7.1-10.7) [facility] NEUT % 78.0 % (35.0-75.0) H [facility] LYMPH % 6.7 % (16.0-52.0) L [facility] MONO % 9.3 % (0.0-8.0) H [facility] EOS % 4.4 % (0.0-5.0) [facility] BASO % 1.6 % (0.0-4.0) [facility] NEUT # 3.2 10*3/uL (1.8-7.7) [facility] LYMPH # 0.3 10*3/uL (1.2-4.8) L [facility] MONO # 0.4 10*3/uL (0.0-0.8) [facility] Eosinophils [#/volume] in Blood by Automated count 0.2 10*3/uL (0.0-0 .5) [facility] BASO # 0.1 10*3/uL (0.0-0.2) [facility] ID Date Data Source PLZ LIVER US 01/11/2021 12:00:00 AM EDT eCW1 ([facility]) Name Value Range Interpretation Code Description Data Ema rce(s) Supporting Document(s) PLZ LIVER US eCW1 ([facility]) ID Date Data Source [id number] 12/05/2020 12:19:00 PM EDT [facility] ([facility] Name Value Range Interpretation Code Description Data Ema rce(s) Supporting Document(s) Specimen Adequacy Laboratory test result [facility] ([facility]) Ileal conduit/neobladder. Clinical History Laboratory test result [facility] ([facility]) BodySite Laboratory test result [facility] ([facility]) Voided - Clean Catch Gross Description Laboratory test result [facility] ([facility]) Received in a specimen container, labele d with the patients name and , is Cloudy Yellow fluid consistent with urine, measuring approximately 15 ml. Microscopic Description Laboratory test result [facility] ([facility]) Moderate numbers of neutrophils present. CPTCode 88590 [facility] ([facility] [place]) Final Diagnosis Laboratory test result [facility] ([facility]) NEGATIVE FOR HIGH-GRADE UROTHELIAL CARCI NOMA. PDF Report Laboratory test result [facility] ([facility]) ID Date Data Source [id number] 12/05/2020 12:19:00 PM EDT [facility] ([facility]) Name Value Range Interpretation Code Description Data Ema rce(s) Supporting Document(s) Cytology report of Urine Cyto stain Laboratory test result [facility] ([facility]) ID Date Data Source [id number] 12/05/2020 11:34:00 AM EDT [facility] ([facility]) Name Value Range Interpretation Code Description Data Ema rce(s) Supporting Document(s) Glucose [Presence] in Urine Laboratory test result [facility] ([facility]) Protein [Presence] in Urine by Test strip 30 mg/dL [facility] ([facility]) Ua Nitrite Laboratory test result [facility] ([facility]) Blood [Presence] in Urine by Visual Laboratory test result [facility] ([facility]) Ua Leuko Laboratory test result [facility] ([facility]) Color of Urine Laboratory test result [facility] ([facility]) Ketones [Presence] in Urine by Test strip Laboratory test result [facility] ([facility]) Clarity of Urine Laboratory test result [facility] ([facility]) Ua Specific [place] 1.010 1.003-1.030 [facility] NT ([facility]) Bilirubin.total [Presence] in Urine by Test strip Laboratory test res ult [facility] ([facility]) pH of Urine by Test strip 6.5 5.0-7.5 [facility] ([facility]) Urobilinogen [Mass/volume] in Urine by Test strip 0.2 E.U./dL 0.0-1.0 [facility] ([facility]) ID Date Data Source [id number] 11/22/2020 12:44:37 PM EDT [facility] Name Value Range Interpretation Code Description Data Ema rce(s) Supporting Document(s) POC GLUCOSE 184 mg/dL (70-99) H [facility] NOTIFIED NURSEPERFORMED BY CLINICAL S TAFF ID Date Data Source [id number] 11/22/2020 07:40:49 AM EDT [facility] Name Value Range Interpretation Code Description Data Ema rce(s) Supporting Document(s) POC GLUCOSE 124 mg/dL (70-99) H [facility] NOTIFIED NURSEPERFORMED BY CLINICAL S TAFF ID Date Data Source [id number] 11/22/2020 07:35:48 AM EDT [facility] Name Value Range Interpretation Code Description Data Ema rce(s) Supporting Document(s) SODIUM 139 mmol/L (136-145) [facility] POTASSIUM 4.2 mmol/L (3.6-5.2) [facility] CHLORIDE 113 mmol/L (100-108) H [facility] CO2 18 mmol/L (22-31) L [facility] ANION GAP 8 mmol/L (7-16) [facility] UREA NITROGEN 27 mg/dL (7-24) H [facility] CREATININE 0.95 mg/dL (0.80-1.30) [facility] BUN/CREAT RATIO 28.4 RATIO (10.0-20.0) H [facility] GLUCOSE 115 mg/dL (70-99) H [facility] CALCIUM 8.2 mg/dL (8.4-10.2) L [facility] GFR >60 ml/min/1.73m2 (>59) [facility] GFR ( AMER) >60 ml/min/1.73m2 (>59) [facility] GFR INTERPRETATION [facility] --NORMAL KIDNEY FUNCTION OR MILD DISEASE - GFR >OR= 60CHRONIC KIDNEY DISEASE - GFR 15 - 59RENAL FAILURE - GFR <15 Est. GFR calculation based on the MDRDstudy equation, which assumes a steadystate for creatinine. Est. GFR should notbe used for medication dosing. ID Date Data Source [id number] 11/22/2020 06:58:27 AM EDT [facility] Name Value Range Interpretation Code Description Data Ema rce(s) Supporting Document(s) WBC 5.1 10*3/uL (4.1-11.0) [facility] [place] RBC 2.90 10*6/uL (4.60-6.10) L [facility] HGB 8.1 g/dL (13.5-18.0) L [facility] HCT 24.4 % (41.0-53.0) L [facility] MCV 84.1 fL (80.0-95.0) [facility] MCH 27.9 pg (27.0-32.0) [facility] MCHC 33.2 g/dL (32.0-36.0) [facility] RDW 16.5 % (10.5-14.5) H [facility] PLT 125 10*3/uL (150-450) L [facility] MPV 9.3 fL (7.1-10.7) [facility] NEUT % 63.0 % (35.0-75.0) [facility] LYMPH % 11.0 % (16.0-52.0) L [facility] MONO % 15.8 % (0.0-8.0) H [facility] EOS % 8.3 % (0.0-5.0) H [facility] BASO % 1.9 % (0.0-4.0) [facility] NEUT # 3.2 10*3/uL (1.8-7.7) [facility] LYMPH # 0.6 10*3/uL (1.2-4.8) L [facility] MONO # 0.8 10*3/uL (0.0-0.8) [facility] Eosinophils [#/volume] in Blood by Automated count 0.4 10*3/uL (0.0-0 .5) [facility] BASO # 0.1 10*3/uL (0.0-0.2) [facility] ID Date Data Source [id number] 11/21/2020 09:42:27 PM EDT [facility] Name Value Range Interpretation Code Description Data Ema rce(s) Supporting Document(s) POC GLUCOSE 183 mg/dL (70-99) H [facility] NOTIFIED NURSEPERFORMED BY CLINICAL S TAFF ID Date Data Source [id number] 11/21/2020 06:01:55 PM EDT [facility] Name Value Range Interpretation Code Description Data Ema rce(s) Supporting Document(s) POC GLUCOSE 156 mg/dL (70-99) H [facility] NOTIFIED NURSEPERFORMED BY CLINICAL S TAFF ID Date Data Source [id number] 11/21/2020 01:53:27 PM EDT [facility] Name Value Range Interpretation Code Description Data Ema rce(s) Supporting Document(s) POC GLUCOSE 137 mg/dL (70-99) H [facility] NOTIFIED NURSEPERFORMED BY CLINICAL S TAFF ID Date Data Source [id number] 11/21/2020 08:51:25 AM EDT [facility] Name Value Range Interpretation Code Description Data Ema rce(s) Supporting Document(s) POC GLUCOSE 106 mg/dL (70-99) H [facility] PERFORMED BY CLINICAL STAFF ID Date Data Source [id number] 11/21/2020 08:20:09 AM EDT [facility] Name Value Range Interpretation Code Description Data Ema rce(s) Supporting Document(s) POC GLUCOSE 107 mg/dL (70-99) H [facility] NOTIFIED NURSEPERFORMED BY CLINICAL S TAFF ID Date Data Source [id number] 11/21/2020 08:40:54 AM EDT [facility] Name Value Range Interpretation Code Description Data Ema rce(s) Supporting Document(s) SODIUM 138 mmol/L (136-145) [facility] POTASSIUM 4.1 mmol/L (3.6-5.2) [facility] CHLORIDE 111 mmol/L (100-108) H [facility] CO2 18 mmol/L (22-31) L [facility] ANION GAP 9 mmol/L (7-16) [facility] UREA NITROGEN 39 mg/dL (7-24) H [facility] CREATININE 1.87 mg/dL (0.80-1.30) H [facility] BUN/CREAT RATIO 20.9 RATIO (10.0-20.0) H [facility] GLUCOSE 104 mg/dL (70-99) H [facility] CALCIUM 8.4 mg/dL (8.4-10.2) [facility] GFR 35 ml/min/1.73m2 (>59) L [facility] GFR ( AMER) 42 ml/min/1.73m2 (>59) L [facility] GFR INTERPRETATION [facility] --NORMAL KIDNEY FUNCTION OR MILD DISEASE - GFR >OR= 60CHRONIC KIDNEY DISEASE - GFR 15 - 59RENAL FAILURE - GFR <15 Est. GFR calculation based on the MDRDstudy equation, which assumes a steadystate for creatinine. Est. GFR should notbe used for medication dosing. ID Date Data Source [id number] 11/21/2020 08:19:58 AM EDT [facility] Name Value Range Interpretation Code Description Data Ema rce(s) Supporting Document(s) WBC 5.9 10*3/uL (4.1-11.0) [facility] [place] RBC 2.94 10*6/uL (4.60-6.10) L [facility] HGB 8.3 g/dL (13.5-18.0) L [facility] HCT 24.9 % (41.0-53.0) L [facility] MCV 84.6 fL (80.0-95.0) [facility] MCH 28.1 pg (27.0-32.0) [facility] MCHC 33.2 g/dL (32.0-36.0) [facility] RDW 16.5 % (10.5-14.5) H [facility] PLT 123 10*3/uL (150-450) L [facility] MPV 9.1 fL (7.1-10.7) [facility] NEUT % 70.3 % (35.0-75.0) [facility] LYMPH % 6.6 % (16.0-52.0) L [facility] MONO % 14.9 % (0.0-8.0) H [facility] EOS % 7.2 % (0.0-5.0) H [facility] BASO % 1.0 % (0.0-4.0) [facility] NEUT # 4.2 10*3/uL (1.8-7.7) [facility] LYMPH # 0.4 10*3/uL (1.2-4.8) L [facility] MONO # 0.9 10*3/uL (0.0-0.8) H [facility] Eosinophils [#/volume] in Blood by Automated count 0.4 10*3/uL (0.0-0 .5) [facility] BASO # 0.1 10*3/uL (0.0-0.2) [facility] ID Date Data Source [id number] 2020 09:31:54 PM EDT [facility] Name Value Range Interpretation Code Description Data Ema rce(s) Supporting Document(s) POC GLUCOSE 146 mg/dL (70-99) H [facility] NOTIFIED NURSEPERFORMED BY CLINICAL S TAFF ID Date Data Source [id number] 2020 05:20:16 PM EDT [facility] Name Value Range Interpretation Code Description Data Ema rce(s) Supporting Document(s) POC GLUCOSE 131 mg/dL (70-99) H [facility] NOTIFIED NURSEPERFORMED BY CLINICAL S TAFF ID Date Data Source [id number] 2020 11:56:19 AM EDT [facility] Name Value Range Interpretation Code Description Data Ema rce(s) Supporting Document(s) POC GLUCOSE 194 mg/dL (70-99) H [facility] NOTIFIED NURSEPERFORMED BY CLINICAL S TAFF ID Date Data Source [id number] 2020 09:15:41 AM EDT [facility] Name Value Range Interpretation Code Description Data Ema rce(s) Supporting Document(s) POC GLUCOSE 107 mg/dL (70-99) H [facility] PERFORMED BY CLINICAL STAFF ID Date Data Source [id number] 2020 03:33:54 PM EDT [facility] Name Value Range Interpretation Code Description Data Ema rce(s) Supporting Document(s) IRON,TOTAL @ 15 ug/dL (35-150) L [facility] [place] UIBC @ 184 ug/dL (130-375) [facility] TIBC @ 199 ug/dL (250-450) L [facility] % SATURATION 8 % (12-50) L [facility] [place] ID Date Data Source [id number] 2020 03:33:54 PM EDT [facility] Name Value Range Interpretation Code Description Data Ema rce(s) Supporting Document(s) FERRITIN @ 66 ng/mL (26-388) [facility] ID Date Data Source [id number] 2020 09:16:02 AM EDT [facility] Name Value Range Interpretation Code Description Data Ema rce(s) Supporting Document(s) MAGNESIUM 2.3 mg/dL (1.7-2.4) [facility] ID Date Data Source [id number] 2020 09:16:02 AM EDT [facility] Name Value Range Interpretation Code Description Data Ema rce(s) Supporting Document(s) SODIUM 138 mmol/L (136-145) [facility] POTASSIUM 3.9 mmol/L (3.6-5.2) [facility] CHLORIDE 109 mmol/L (100-108) H [facility] CO2 21 mmol/L (22-31) L [facility] ANION GAP 8 mmol/L (7-16) [facility] UREA NITROGEN 47 mg/dL (7-24) H [facility] CREATININE 2.38 mg/dL (0.80-1.30) H [facility] BUN/CREAT RATIO 19.7 RATIO (10.0-20.0) [facility] GLUCOSE 97 mg/dL (70-99) [facility] CALCIUM 8.3 mg/dL (8.4-10.2) L [facility] GFR 27 ml/min/1.73m2 (>59) L [facility] GFR ( AMER) 32 ml/min/1.73m2 (>59) L [facility] GFR INTERPRETATION [facility] --NORMAL KIDNEY FUNCTION OR MILD DISEASE - GFR >OR= 60CHRONIC KIDNEY DISEASE - GFR 15 - 59RENAL FAILURE - GFR <15 Est. GFR calculation based on the MDRDstudy equation, which assumes a steadystate for creatinine. Est. GFR should notbe used for medication dosing. ID Date Data Source [id number] 2020 08:35:06 AM EDT [facility] Name Value Range Interpretation Code Description Data Ema rce(s) Supporting Document(s) WBC 7.3 10*3/uL (4.1-11.0) [facility] [place] RBC 3.01 10*6/uL (4.60-6.10) L [facility] HGB 8.5 g/dL (13.5-18.0) L [facility] HCT 25.3 % (41.0-53.0) L [facility] MCV 84.2 fL (80.0-95.0) [facility] MCH 28.3 pg (27.0-32.0) [facility] MCHC 33.6 g/dL (32.0-36.0) [facility] RDW 16.0 % (10.5-14.5) H [facility] PLT 119 10*3/uL (150-450) L [facility] MPV 9.5 fL (7.1-10.7) [facility] NEUT % 76.4 % (35.0-75.0) H [facility] LYMPH % 5.5 % (16.0-52.0) L [facility] MONO % 11.3 % (0.0-8.0) H [facility] EOS % 6.0 % (0.0-5.0) H [facility] BASO % 0.8 % (0.0-4.0) [facility] NEUT # 5.6 10*3/uL (1.8-7.7) [facility] LYMPH # 0.4 10*3/uL (1.2-4.8) L [facility] MONO # 0.8 10*3/uL (0.0-0.8) [facility] Eosinophils [#/volume] in Blood by Automated count 0.4 10*3/uL (0.0-0 .5) [facility] BASO # 0.1 10*3/uL (0.0-0.2) [facility] ID Date Data Source [id number] 2020 06:43:31 AM EDT [facility] Name Value Range Interpretation Code Description Data Ema rce(s) Supporting Document(s) POC GLUCOSE 96 mg/dL (70-99) [facility] PERFORMED BY CLINICAL STAFF ID Date Data Source [id number] 2020 12:23:25 AM EDT [facility] Name Value Range Interpretation Code Description Data Ema rce(s) Supporting Document(s) POC GLUCOSE 108 mg/dL (70-99) H [facility] PERFORMED BY CLINICAL STAFF ID Date Data Source [id number] 11/19/2020 06:15:18 PM EDT [facility] Name Value Range Interpretation Code Description Data Ema rce(s) Supporting Document(s) POC GLUCOSE 153 mg/dL (70-99) H [facility] NOTIFIED NURSEPERFORMED BY CLINICAL S TAFF ID Date Data Source [id number] 2020 07:14:05 AM EDT [facility] Name Value Range Interpretation Code Description Data Ema rce(s) Supporting Document(s) POC GLUCOSE 120 mg/dL (70-99) H [facility] NOTIFIED NURSEPERFORMED BY CLINICAL S TAFF ID Date Data Source [id number] 11/19/2020 02:25:25 PM EDT [facility] Name Value Range Interpretation Code Description Data Ema rce(s) Supporting Document(s) TOTAL PROTEIN 5.1 g/dL (6.4-8.2) L [facility] ALBUMIN 1.9 g/dL (3.2-4.5) L [facility] GLOBULIN 3.2 g/dL (2.7-4.3) [facility] ALB/GLOB RATIO 0.6 RATIO [facility] BILIRUBIN,TOTAL 0.7 mg/dL (0.0-1.0) [facility] PLEASE NOTE:Total bilirubin results may be falselyelevated in patients taking Eltrombopag. BILIRUBIN,CONJUGATED 0.3 mg/dL (0.0-0.3) [facility] BILIRUBIN,UNCONJ. 0.4 mg/dL (0.0-0.7) [facility] ALKALINE PHOSPHATASE 63 U/L (45-117) [facility] AST (SGOT) 43 U/L (11-39) H [facility] ALT (SGPT) 21 U/L (12-78) [facility] ID Date Data Source [id number] 11/19/2020 08:23:57 AM EDT [facility] Name Value Range Interpretation Code Description Data Ema rce(s) Supporting Document(s) VANCOMYCIN RANDOM 13.1 ug/mL [facility] THERAPEUTIC RANGE IS ONLY AVAILABLE FOR PEAK AND TROUGH SPECIMENS. RANDOM LEVEL RESULTS MUST BE INTERPRETED BY THE PHYSICIAN. ID Date Data Source [id number] 11/19/2020 08:23:57 AM EDT [facility] Name Value Range Interpretation Code Description Data Ema rce(s) Supporting Document(s) SODIUM 136 mmol/L (136-145) [facility] POTASSIUM 3.7 mmol/L (3.6-5.2) [facility] CHLORIDE 105 mmol/L (100-108) [facility] CO2 19 mmol/L (22-31) L [facility] ANION GAP 12 mmol/L (7-16) [facility] UREA NITROGEN 50 mg/dL (7-24) H [facility] CREATININE 2.59 mg/dL (0.80-1.30) H [facility] BUN/CREAT RATIO 19.3 RATIO (10.0-20.0) [facility] GLUCOSE 89 mg/dL (70-99) [facility] CALCIUM 8.2 mg/dL (8.4-10.2) L [facility] GFR 24 ml/min/1.73m2 (>59) L [facility] GFR ( AMER) 29 ml/min/1.73m2 (>59) L [facility] GFR INTERPRETATION [facility] --NORMAL KIDNEY FUNCTION OR MILD DISEASE - GFR >OR= 60CHRONIC KIDNEY DISEASE - GFR 15 - 59RENAL FAILURE - GFR <15 Est. GFR calculation based on the MDRDstudy equation, which assumes a steadystate for creatinine. Est. GFR should notbe used for medication dosing. ID Date Data Source [id number] 11/19/2020 08:02:08 AM EDT [facility] Name Value Range Interpretation Code Description Data Ema rce(s) Supporting Document(s) WBC 10.1 10*3/uL (4.1-11.0) [facility] RBC 2.79 10*6/uL (4.60-6.10) L [facility] HGB 7.9 g/dL (13.5-18.0) L [facility] HCT 23.6 % (41.0-53.0) L [facility] MCV 84.5 fL (80.0-95.0) [facility] MCH 28.2 pg (27.0-32.0) [facility] MCHC 33.4 g/dL (32.0-36.0) [facility] RDW 16.1 % (10.5-14.5) H [facility] PLT 104 10*3/uL (150-450) L [facility] MPV 9.2 fL (7.1-10.7) [facility] ID Date Data Source [id number] 11/19/2020 06:17:02 AM EDT [facility] Name Value Range Interpretation Code Description Data Ema rce(s) Supporting Document(s) POC GLUCOSE 108 mg/dL (70-99) H [facility] PERFORMED BY CLINICAL STAFF ID Date Data Source [id number] 11/19/2020 12:16:43 AM EDT [facility] Name Value Range Interpretation Code Description Data Ema rce(s) Supporting Document(s) POC GLUCOSE 148 mg/dL (70-99) H [facility] PERFORMED BY CLINICAL STAFF ID Date Data Source [id number] 2020 07:20:38 AM EDT [facility] SPECIMEN DESCRIPTION URINE, COLLE CTION METHOD NOT SPECIFIEDCULTURE RESULTS NO GROWTHREPORT STATUS FINAL 2020 Name Value Range Interpretation Code Description Data Ema rce(s) Supporting Document(s) ID Date Data Source [id number] 11/18/2020 05:46:48 PM EDT [facility] Name Value Range Interpretation Code Description Data Ema rce(s) Supporting Document(s) POC GLUCOSE 180 mg/dL (70-99) H [facility] NOTIFIED NURSEPERFORMED BY CLINICAL S TAFF ID Date Data Source [id number] 11/18/2020 01:55:22 PM EDT [facility] Name Value Range Interpretation Code Description Data Ema rce(s) Supporting Document(s) POC GLUCOSE 156 mg/dL (70-99) H [facility] PERFORMED BY CLINICAL STAFF ID Date Data Source [id number] 11/18/2020 01:26:32 PM EDT [facility] Name Value Range Interpretation Code Description Data Ema rce(s) Supporting Document(s) URINE WBC (0-5) [facility] URINE RBC (0-2) [facility] EPITHELIAL CELLS 1+ [HPF] [facility] BACTERIA 1+ [HPF] [facility] WBC CLUMPING 1+ [facility] [place] ID Date Data Source [id number] 11/18/2020 01:14:40 PM EDT [facility] Name Value Range Interpretation Code Description Data Ema rce(s) Supporting Document(s) COLOR [facility] APPEARANCE [facility] SPEC GRAV URINE 1.016 (1.003-1.030) [facility] PH URINE 5.5 (5.0-7.5) [facility] LEUK ESTERASE 3+ (NEG) A [facility] NITRITE URINE (NEG) [facility] PROTEIN URINE 1+ (NEG) A [facility] GLUCOSE URINE (NEG) [facility] KETONE URINE (NEG) [facility] UROBILINOGEN 0.2 mg/dL (0-1.0) [facility] BILIRUBIN URINE (NEG) [facility] BLOOD/HGB URINE 3+ (NEG) A [facility] ID Date Data Source [id number] 11/21/2020 10:04:31 AM EDT [facility] SPECIMEN DESCRIPTION PERIPHERALSP ECIAL REQUESTS NONEGRAM STAIN GRAM NEGATIVE RODSALERTED CRITICAL RESULT TO DOREEN LIPSCOMB 5SIR @ 0940 11/19/2020 [place] [id number] CULTURE RESULTS PSEUDOMONAS AERUGINOSA PSEUDOMONAS AERUGINOSA BY [...] LACTAMASE (ESBL) ANDCARBAPENEMASE (CRE). REPORT STATUS FINAL 11/21/2020ORGANISM PSEUDOMONAS AERUGINOSAMETHOD MICAMIKACIN <=2 SUSCEPTIBLECEFTAZIDIME <=1 SUSCEPTIBLECIPROFLOXACIN <=0.25 SUSCEPTIBLEGENTAMICIN <=1 SUSCEPTIBLELEVOFLOXACIN 0.5 SUSCEPTIB LEMEROPENEM <=0.25 SUSCEPTIBLEPIPERACILLIN/TAZOBACTAM <=4 SUSCEPTIBLETOBRAMYCIN <=1 SUSCEPTIBLE Name Value Range Interpretation Code Description Data Ema rce(s) Supporting Document(s) ID Date Data Source [id number] 11/23/2020 11:15:10 AM EDT [facility] SPECIMEN DESCRIPTION PERIPHERALSP ECIAL REQUESTS NONECULTURE RESULTS NO GROWTH 5 DAYSREPORT STATUS FINAL 11/23/2020 Name Value Range Interpretation Code Description Data Ema rce(s) Supporting Document(s) ID Date Data Source [id number] 11/18/2020 09:33:00 AM EDT [facility] DATE OF EXAM: 1EXAM: Ultrasound vascular: Bilateral lower extremity venous. CLINICAL [...] left Stevens's cyst. Professional interpretation performed at [facility] .End of diagnostic report for accession: [id number] Interpreted: Charbel Vizcaino MDTranscribed: 11/18/2020 09:32 AMSigned: 11/18/2020 09:33 AM Charbel Vizcaino MD [facility] # [id number] BILL # [id number] Name Value Range Interpretation Code Description Data Ema rce(s) Supporting Document(s) ID Date Data Source [id number] 11/18/2020 07:03:40 AM EDT [facility] Name Value Range Interpretation Code Description Data Ema rce(s) Supporting Document(s) POC GLUCOSE 117 mg/dL (70-99) H [facility] PERFORMED BY CLINICAL STAFF ID Date Data Source [id number] 11/18/2020 07:24:24 AM EDT [facility] Name Value Range Interpretation Code Description Data Ema rce(s) Supporting Document(s) MAGNESIUM 2.2 mg/dL (1.7-2.4) [facility] ID Date Data Source [id number] 11/18/2020 07:24:24 AM EDT [facility] Name Value Range Interpretation Code Description Data Ema rce(s) Supporting Document(s) NT PRO BNP 223 pg/mL (0-450) [facility] ID Date Data Source [id number] 11/18/2020 07:24:24 AM EDT [facility] Name Value Range Interpretation Code Description Data Ema rce(s) Supporting Document(s) TROPONIN I <0.05 ng/mL (<0.05) [facility] [place] Less than 0.05: Myocardial injury unlike lyGreater than or equal to 0.05: Highly suggestive of myocardial injuryCorrelation with rise and/or fall ofserial troponins, clinical symptomsand ECG changes is necessary. ID Date Data Source [id number] 11/18/2020 07:24:24 AM EDT [facility] [place] Name Value Range Interpretation Code Description Data Ema rce(s) Supporting Document(s) SODIUM 137 mmol/L (136-145) [facility] POTASSIUM 4.1 mmol/L (3.6-5.2) [facility] CHLORIDE 105 mmol/L (100-108) [facility] CO2 25 mmol/L (22-31) [facility] ANION GAP 7 mmol/L (7-16) [facility] UREA NITROGEN 50 mg/dL (7-24) H [facility] CREATININE 2.22 mg/dL (0.80-1.30) H [facility] BUN/CREAT RATIO 22.5 RATIO (10.0-20.0) H [facility] GLUCOSE 127 mg/dL (70-99) H [facility] CALCIUM 9.3 mg/dL (8.4-10.2) [facility] GFR 29 ml/min/1.73m2 (>59) L [facility] GFR ( AMER) 35 ml/min/1.73m2 (>59) L [facility] GFR INTERPRETATION [facility] --NORMAL KIDNEY FUNCTION OR MILD DISEASE - GFR >OR= 60CHRONIC KIDNEY DISEASE - GFR 15 - 59RENAL FAILURE - GFR <15 Est. GFR calculation based on the MDRDstudy equation, which assumes a steadystate for creatinine. Est. GFR should notbe used for medication dosing. ID Date Data Source [id number] 11/18/2020 06:53:47 AM EDT [facility] [place] Name Value Range Interpretation Code Description Data Ema rce(s) Supporting Document(s) WBC 3.7 10*3/uL (4.1-11.0) L [facility] [place] RBC 3.44 10*6/uL (4.60-6.10) L [facility] HGB 9.6 g/dL (13.5-18.0) L [facility] HCT 29.1 % (41.0-53.0) L [facility] MCV 84.5 fL (80.0-95.0) [facility] MCH 27.9 pg (27.0-32.0) [facility] MCHC 33.1 g/dL (32.0-36.0) [facility] RDW 16.2 % (10.5-14.5) H [facility] PLT 116 10*3/uL (150-450) L [facility] MPV 8.9 fL (7.1-10.7) [facility] NEUT % 92.1 % (35.0-75.0) H [facility] LYMPH % 3.1 % (16.0-52.0) L [facility] MONO % 2.5 % (0.0-8.0) [facility] EOS % 2.1 % (0.0-5.0) [facility] BASO % 0.2 % (0.0-4.0) [facility] NEUT # 3.4 10*3/uL (1.8-7.7) [facility] LYMPH # 0.1 10*3/uL (1.2-4.8) L [facility] MONO # 0.1 10*3/uL (0.0-0.8) [facility] Eosinophils [#/volume] in Blood by Automated count 0.1 10*3/uL (0.0-0 .5) [facility] BASO # 0.0 10*3/uL (0.0-0.2) [facility] ID Date Data Source [id number] 11/18/2020 07:02:00 AM EDT [facility] Name Value Range Interpretation Code Description Data Ema rce(s) Supporting Document(s) LACTIC ACID 1.9 mmol/L (0.4-2.0) [facility] [place] ID Date Data Source [id number] 11/18/2020 08:13:00 AM EDT [facility] DATE OF EXAM: 11/18/2020XAM: Portable c hest INDICATION: DYSPNEA COMPARISON: 02/18/2011 TECHNIQUE: AP upright. There is a limited degree of inspiration with mild accentuation of the pulmonary vascular markings. No focal area of pneumonia or atelectasis is seen. The mediastinum, heart, and pulmonary vascularity are within normal limits. IMPRESSION: No acute disease. Professional interpretation performed at [facility] .End of diagnostic report for accession: [id number] Interpreted: Charbel Vizcaino MDTranscribed: 11/18/2020 08:12 AMSigned: 11/18/2020 08:13 AM Charbel Vizcaino MD [facility] # [id number] BILL # [id number] Name Value Range Interpretation Code Description Data Ema rce(s) Supporting Document(s) ID Date Data Source [id number] 11/18/2020 12:01:07 AM EDT [facility] [place] Name Value Range Interpretation Code Description Data Ema rce(s) Supporting Document(s) POC GLUCOSE 156 mg/dL (70-99) H [facility] [place] PERFORMED BY CLINICAL STAFF ID Date Data Source [id number] 11/17/2020 05:55:37 PM EDT [facility] Name Value Range Interpretation Code Description Data Ema rce(s) Supporting Document(s) POC GLUCOSE 137 mg/dL (70-99) H [facility] [place] NOTIFIED NURSEPERFORMED BY CLINICAL S TAFF ID Date Data Source [id number] 11/17/2020 12:25:31 PM EDT [facility] Name Value Range Interpretation Code Description Data Ema rce(s) Supporting Document(s) POC GLUCOSE 131 mg/dL (70-99) H [facility] [place] [facility] NOTIFIED NURSEPERFORMED BY CLINICAL S KIRK ID Date Data Source [id number] 11/17/2020 08:55:54 AM EDT [facility] Name Value Range Interpretation Code Description Data Ema rce(s) Supporting Document(s) SODIUM 141 mmol/L (136-145) [facility] POTASSIUM 4.1 mmol/L (3.6-5.2) [facility] CHLORIDE 109 mmol/L (100-108) H [facility] CO2 23 mmol/L (22-31) [facility] ANION GAP 9 mmol/L (7-16) [facility] UREA NITROGEN 51 mg/dL (7-24) H [facility] CREATININE 2.05 mg/dL (0.80-1.30) H [facility] BUN/CREAT RATIO 24.9 RATIO (10.0-20.0) H [facility] GLUCOSE 107 mg/dL (70-99) H [facility] CALCIUM 9.2 mg/dL (8.4-10.2) [facility] GFR 32 ml/min/1.73m2 (>59) L [facility] GFR ( AMER) 38 ml/min/1.73m2 (>59) L [facility] GFR INTERPRETATION [facility] --NORMAL KIDNEY FUNCTION OR MILD DISEASE - GFR >OR= 60CHRONIC KIDNEY DISEASE - GFR 15 - 59RENAL FAILURE - GFR <15 Est. GFR calculation based on the MDRDstudy equation, which assumes a steadystate for creatinine. Est. GFR should notbe used for medication dosing. ID Date Data Source [id number] 11/17/2020 08:35:35 AM EDT [facility] Name Value Range Interpretation Code Description Data Ema rce(s) Supporting Document(s) WBC 4.5 10*3/uL (4.1-11.0) [facility] [place] RBC 3.11 10*6/uL (4.60-6.10) L [facility] HGB 8.5 g/dL (13.5-18.0) L [facility] HCT 26.5 % (41.0-53.0) L [facility] MCV 85.3 fL (80.0-95.0) [facility] MCH 27.4 pg (27.0-32.0) [facility] MCHC 32.1 g/dL (32.0-36.0) [facility] RDW 16.2 % (10.5-14.5) H [facility] PLT 102 10*3/uL (150-450) L [facility] MPV 9.4 fL (7.1-10.7) [facility] NEUT % 77.2 % (35.0-75.0) H [facility] LYMPH % 7.2 % (16.0-52.0) L [facility] MONO % 10.8 % (0.0-8.0) H [facility] EOS % 4.3 % (0.0-5.0) [facility] BASO % 0.5 % (0.0-4.0) [facility] NEUT # 3.5 10*3/uL (1.8-7.7) [facility] LYMPH # 0.3 10*3/uL (1.2-4.8) L [facility] MONO # 0.5 10*3/uL (0.0-0.8) [facility] Eosinophils [#/volume] in Blood by Automated count 0.2 10*3/uL (0.0-0 .5) [facility] BASO # 0.0 10*3/uL (0.0-0.2) [facility] ID Date Data Source [id number] 11/17/2020 05:32:32 AM EDT [facility] Name Value Range Interpretation Code Description Data Ema rce(s) Supporting Document(s) POC GLUCOSE 112 mg/dL (70-99) H [facility] NOTIFIED NURSEPERFORMED BY CLINICAL S TAFF ID Date Data Source [id number] 11/17/2020 03:04:02 AM EDT [facility] Name Value Range Interpretation Code Description Data Ema rce(s) Supporting Document(s) STOOL OCCULT BLOOD (NEG) [facility] ID Date Data Source [id number] 11/17/2020 12:19:03 AM EDT [facility] Name Value Range Interpretation Code Description Data Ema rce(s) Supporting Document(s) POC GLUCOSE 134 mg/dL (70-99) H [facility] NOTIFIED NURSEPERFORMED BY CLINICAL S TAFF ID Date Data Source [id number] 11/16/2020 06:51:12 PM EDT [facility] Name Value Range Interpretation Code Description Data Ema rce(s) Supporting Document(s) POC GLUCOSE 120 mg/dL (70-99) H [facility] PERFORMED BY CLINICAL STAFF ID Date Data Source [id number] 11/16/2020 06:47:00 PM EDT [facility] DATE OF EXAM: 11/16/2020T ABDOMEN AND P SHAWN WITHOUT IV CONTRAST [...] position. X7End of diagnostic report for accession: [id number] Interpreted: Charbel Kilpatrick MDTranscribed: 11/16/2020 06:41 PMSigned: 11/16/2020 06:47 PM Charbel Kilpatrick MD ------- [facility] # [id number] [facility] # [id number] Name Value Range Interpretation Code Description Data Ema rce(s) Supporting Document(s) ID Date Data Source [id number] 11/16/2020 01:15:02 PM EDT [facility] Name Value Range Interpretation Code Description Data Ema rce(s) Supporting Document(s) FLUID CREATININE 1.75 mg/dL [facility] ID Date Data Source [id number] 11/16/2020 12:52:45 PM EDT [facility] Name Value Range Interpretation Code Description Data Ema rce(s) Supporting Document(s) FLUID SOURCE [facility] [place] ID Date Data Source [id number] 11/16/2020 12:25:11 PM EDT [facility] Name Value Range Interpretation Code Description Data Ema rce(s) Supporting Document(s) POC GLUCOSE 149 mg/dL (70-99) H [facility] PERFORMED BY CLINICAL STAFF ID Date Data Source [id number] 11/16/2020 01:18:38 PM EDT [facility] Name Value Range Interpretation Code Description Data Ema rce(s) Supporting Document(s) SODIUM 142 mmol/L (136-145) [facility] POTASSIUM 3.9 mmol/L (3.6-5.2) [facility] CHLORIDE 109 mmol/L (100-108) H [facility] CO2 27 mmol/L (22-31) [facility] ANION GAP 6 mmol/L (7-16) L [facility] UREA NITROGEN 48 mg/dL (7-24) H [facility] CREATININE 1.97 mg/dL (0.80-1.30) H [facility] BUN/CREAT RATIO 24.4 RATIO (10.0-20.0) H [facility] GLUCOSE 149 mg/dL (70-99) H [facility] CALCIUM 9.4 mg/dL (8.4-10.2) [facility] TOTAL PROTEIN 6.5 g/dL (6.4-8.2) [facility] ALBUMIN 2.5 g/dL (3.2-4.5) L [facility] GLOBULIN 4.0 g/dL (2.7-4.3) [facility] ALB/GLOB RATIO 0.6 RATIO [facility] ALKALINE PHOSPHATASE 72 U/L (45-117) [facility] BILIRUBIN,TOTAL 0.7 mg/dL (0.0-1.0) [facility] PLEASE NOTE:Total bilirubin results may be falselyelevated in patients taking Eltrombopag. AST (SGOT) 33 U/L (11-39) [facility] ALT (SGPT) 13 U/L (12-78) [facility] GFR 33 ml/min/1.73m2 (>59) L [facility] GFR ( AMER) 40 ml/min/1.73m2 (>59) L [facility] GFR INTERPRETATION [facility] --NORMAL KIDNEY FUNCTION OR MILD DISEASE - GFR >OR= 60CHRONIC KIDNEY DISEASE - GFR 15 - 59RENAL FAILURE - GFR <15 Est. GFR calculation based on the MDRDstudy equation, which assumes a steadystate for creatinine. Est. GFR should notbe used for medication dosing. ID Date Data Source [id number] 11/16/2020 12:50:19 PM EDT [facility] Name Value Range Interpretation Code Description Data Ema rce(s) Supporting Document(s) WBC 6.5 10*3/uL (4.1-11.0) [facility] [place] RBC 3.22 10*6/uL (4.60-6.10) L [facility] HGB 8.9 g/dL (13.5-18.0) L [facility] HCT 27.3 % (41.0-53.0) L [facility] MCV 84.7 fL (80.0-95.0) [facility] MCH 27.6 pg (27.0-32.0) [facility] MCHC 32.6 g/dL (32.0-36.0) [facility] RDW 16.3 % (10.5-14.5) H [facility] PLT 102 10*3/uL (150-450) L [facility] MPV 8.9 fL (7.1-10.7) [facility] NEUT % 84.9 % (35.0-75.0) H [facility] LYMPH % 3.8 % (16.0-52.0) L [facility] MONO % 9.5 % (0.0-8.0) H [facility] EOS % 1.7 % (0.0-5.0) [facility] BASO % 0.1 % (0.0-4.0) [facility] NEUT # 5.5 10*3/uL (1.8-7.7) [facility] LYMPH # 0.2 10*3/uL (1.2-4.8) L [facility] MONO # 0.6 10*3/uL (0.0-0.8) [facility] Eosinophils [#/volume] in Blood by Automated count 0.1 10*3/uL (0.0-0 .5) [facility] BASO # 0.0 10*3/uL (0.0-0.2) [facility] ID Date Data Source [id number] 11/16/2020 07:25:10 AM EDT [facility] Name Value Range Interpretation Code Description Data Ema rce(s) Supporting Document(s) SODIUM 142 mmol/L (136-145) [facility] POTASSIUM 4.4 mmol/L (3.6-5.2) [facility] CHLORIDE 111 mmol/L (100-108) H [facility] CO2 25 mmol/L (22-31) [facility] ANION GAP 6 mmol/L (7-16) L [facility] UREA NITROGEN 48 mg/dL (7-24) H [facility] CREATININE 1.86 mg/dL (0.80-1.30) H [facility] BUN/CREAT RATIO 25.8 RATIO (10.0-20.0) H [facility] GLUCOSE 142 mg/dL (70-99) H [facility] CALCIUM 9.5 mg/dL (8.4-10.2) [facility] GFR 35 ml/min/1.73m2 (>59) L [facility] GFR ( AMER) 43 ml/min/1.73m2 (>59) L [facility] GFR INTERPRETATION [facility] --NORMAL KIDNEY FUNCTION OR MILD DISEASE - GFR >OR= 60CHRONIC KIDNEY DISEASE - GFR 15 - 59RENAL FAILURE - GFR <15 Est. GFR calculation based on the MDRDstudy equation, which assumes a steadystate for creatinine. Est. GFR should notbe used for medication dosing. ID Date Data Source [id number] 11/16/2020 06:44:48 AM EDT [facility] Name Value Range Interpretation Code Description Data Ema rce(s) Supporting Document(s) WBC 6.0 10*3/uL (4.1-11.0) [facility] [place] RBC 3.20 10*6/uL (4.60-6.10) L [facility] HGB 9.2 g/dL (13.5-18.0) L [facility] HCT 27.4 % (41.0-53.0) L [facility] MCV 85.5 fL (80.0-95.0) [facility] MCH 28.6 pg (27.0-32.0) [facility] MCHC 33.4 g/dL (32.0-36.0) [facility] RDW 16.3 % (10.5-14.5) H [facility] PLT 92 10*3/uL (150-450) L [facility] MPV 9.2 fL (7.1-10.7) [facility] NEUT % 82.5 % (35.0-75.0) H [facility] LYMPH % 3.8 % (16.0-52.0) L [facility] MONO % 11.3 % (0.0-8.0) H [facility] EOS % 2.2 % (0.0-5.0) [facility] BASO % 0.2 % (0.0-4.0) [facility] NEUT # 5.0 10*3/uL (1.8-7.7) [facility] LYMPH # 0.2 10*3/uL (1.2-4.8) L [facility] MONO # 0.7 10*3/uL (0.0-0.8) [facility] Eosinophils [#/volume] in Blood by Automated count 0.1 10*3/uL (0.0-0 .5) [facility] BASO # 0.0 10*3/uL (0.0-0.2) [facility] ID Date Data Source [id number] 11/16/2020 06:06:03 AM EDT [facility] Name Value Range Interpretation Code Description Data Ema rce(s) Supporting Document(s) POC GLUCOSE 141 mg/dL (70-99) H [facility] NOTIFIED NURSEPERFORMED BY CLINICAL S TAFF ID Date Data Source [id number] 11/16/2020 12:07:42 AM EDT [facility] Name Value Range Interpretation Code Description Data Ema rce(s) Supporting Document(s) POC GLUCOSE 134 mg/dL (70-99) [facility] NOTIFIED NURSEPERFORMED BY CLINICAL S TAFF ID Date Data Source [id number] 11/15/2020 06:20:11 PM EDT [facility] Name Value Range Interpretation Code Description Data Ema rce(s) Supporting Document(s) POC GLUCOSE 155 mg/dL (70-99) H [facility] NOTIFIED NURSEPERFORMED BY CLINICAL S TAFF ID Date Data Source [id number] 11/15/2020 12:38:28 PM EDT [facility] Name Value Range Interpretation Code Description Data Ema rce(s) Supporting Document(s) POC GLUCOSE 160 mg/dL (70-99) H [facility] NOTIFIED NURSEPERFORMED BY CLINICAL S TAFF ID Date Data Source [id number] 11/15/2020 12:50:54 PM EDT [facility] Name Value Range Interpretation Code Description Data Ema rce(s) Supporting Document(s) SODIUM 141 mmol/L (136-145) [facility] POTASSIUM 4.1 mmol/L (3.6-5.2) [facility] CHLORIDE 108 mmol/L (100-108) [facility] CO2 26 mmol/L (22-31) [facility] ANION GAP 7 mmol/L (7-16) [facility] UREA NITROGEN 36 mg/dL (7-24) [facility] CREATININE 1.68 mg/dL (0.80-1.30) [facility] BUN/CREAT RATIO 21.4 RATIO (10.0-20.0) [facility] GLUCOSE 152 mg/dL (70-99) [facility] CALCIUM 9.7 mg/dL (8.4-10.2) [facility] TOTAL PROTEIN 6.5 g/dL (6.4-8.2) [facility] ALBUMIN 2.7 g/dL (3.2-4.5) L [facility] GLOBULIN 3.8 g/dL (2.7-4.3) [facility] ALB/GLOB RATIO 0.7 RATIO [facility] ALKALINE PHOSPHATASE 72 U/L (45-117) [facility] BILIRUBIN,TOTAL 0.7 mg/dL (0.0-1.0) [facility] PLEASE NOTE:Total bilirubin results may be falselyelevated in patients taking Eltrombopag. AST (SGOT) 31 U/L (11-39) [facility] ALT (SGPT) 18 U/L (12-78) [facility] GFR 40 ml/min/1.73m2 (>59) L [facility] GFR ( AMER) 48 ml/min/1.73m2 (>59) [facility] GFR INTERPRETATION [facility] --NORMAL KIDNEY FUNCTION OR MILD DISEASE - GFR >OR= 60CHRONIC KIDNEY DISEASE - GFR 15 - 59RENAL FAILURE - GFR <15 Est. GFR calculation based on the MDRDstudy equation, which assumes a steadystate for creatinine. Est. GFR should notbe used for medication dosing. ID Date Data Source [id number] 11/15/2020 12:11:25 PM EDT [facility] Name Value Range Interpretation Code Description Data Ema rce(s) Supporting Document(s) WBC 7.9 10*3/uL (4.1-11.0) [facility] RBC 3.22 10*6/uL (4.60-6.10) [facility] HGB 9.0 g/dL (13.5-18.0) [facility] HCT 27.3 % (41.0-53.0) [facility] MCV 84.8 fL (80.0-95.0) [facility] MCH 28.1 pg (27.0-32.0) [facility] MCHC 33.1 g/dL (32.0-36.0) [facility] RDW 16.1 % (10.5-14.5) H [facility] PLT 112 10*3/uL (150-450) L [facility] MPV 9.3 fL (7.1-10.7) [facility] ID Date Data Source [id number] 11/15/2020 05:46:43 AM EDT [facility] Name Value Range Interpretation Code Description Data Ema rce(s) Supporting Document(s) POC GLUCOSE 156 mg/dL (70-99) H [facility] NOTIFIED NURSEPERFORMED BY CLINICAL S TAFF ID Date Data Source [id number] 11/15/2020 12:06:03 AM EDT [facility] Name Value Range Interpretation Code Description Data Ema rce(s) Supporting Document(s) POC GLUCOSE 153 mg/dL (70-99) H [facility] NOTIFIED NURSEPERFORMED BY CLINICAL S TAFF ID Date Data Source [id number] 11/14/2020 08:19:00 PM EDT [facility] DATE OF EXAM: 11/14/2020XAM: ABDOMINAL X-RAY. HISTORY: STENT TECHNIQUE: Single supine view the abdomen is obtained. Portions of the upper abdomen are excluded from the image [id number]. COMPARISON: Abdominal x-ray dated 02/18/2011. CT abdomen [...] bilateral hip osteoarthritis. Professional interpretation performed at [facility] .End of diagnostic report for accession: [id number] Interpreted: Marielena Simmons MDTranscribed: 11/14/2020 08:17 PMSigned: 11/14/2020 08:19 PM Marielena Simmons MD [facility] # [id number] BILL # [id number] Name Value Range Interpretation Code Description Data Ema rce(s) Supporting Document(s) ID Date Data Source [id number] 11/14/2020 06:01:30 PM EDT [facility] Name Value Range Interpretation Code Description Data Ema rce(s) Supporting Document(s) POC GLUCOSE 147 mg/dL (70-99) H [facility] PERFORMED BY CLINICAL STAFF ID Date Data Source [id number] 11/14/2020 11:20:05 AM EDT [facility] Name Value Range Interpretation Code Description Data Ema rce(s) Supporting Document(s) POC GLUCOSE 182 mg/dL (70-99) H [facility] NOTIFIED NURSEPERFORMED BY CLINICAL S TAFF ID Date Data Source [id number] 11/14/2020 08:29:58 AM EDT [facility] Name Value Range Interpretation Code Description Data Ema rce(s) Supporting Document(s) SODIUM 143 mmol/L (136-145) [facility] POTASSIUM 4.7 mmol/L (3.6-5.2) [facility] CHLORIDE 112 mmol/L (100-108) H [facility] CO2 24 mmol/L (22-31) [facility] ANION GAP 7 mmol/L (7-16) [facility] UREA NITROGEN 22 mg/dL (7-24) [facility] CREATININE 1.09 mg/dL (0.80-1.30) [facility] BUN/CREAT RATIO 20.2 RATIO (10.0-20.0) H [facility] GLUCOSE 201 mg/dL (70-99) H [facility] CALCIUM 9.9 mg/dL (8.4-10.2) [facility] GFR >60 ml/min/1.73m2 (>59) [facility] GFR ([facility]) >60 ml/min/1.73m2 (>59) [facility] GFR INTERPRETATION [facility] --NORMAL KIDNEY FUNCTION OR MILD DISEASE - GFR >OR= 60CHRONIC KIDNEY DISEASE - GFR 15 - 59RENAL FAILURE - GFR <15 Est. GFR calculation based on the MDRDstudy equation, which assumes a steadystate for creatinine. Est. GFR should notbe used for medication dosing. ID Date Data Source [id number] 11/14/2020 08:10:07 AM EDT [facility] Name Value Range Interpretation Code Description Data Ema rce(s) Supporting Document(s) WBC 7.7 10*3/uL (4.1-11.0) [facility] RBC 3.25 10*6/uL (4.60-6.10) L [facility] HGB 9.3 g/dL (13.5-18.0) L [facility] HCT 28.2 % (41.0-53.0) L [facility] MCV 86.7 fL (80.0-95.0) [facility] MCH 28.5 pg (27.0-32.0) [facility] MCHC 32.9 g/dL (32.0-36.0) [facility] RDW 16.6 % (10.5-14.5) H [facility] PLT 113 10*3/uL (150-450) L [facility] MPV 9.4 fL (7.1-10.7) [facility] ID Date Data Source [id number] 11/14/2020 06:02:40 AM EDT [facility] Name Value Range Interpretation Code Description Data Ema rce(s) Supporting Document(s) POC GLUCOSE 199 mg/dL (70-99) H [facility] PERFORMED BY CLINICAL STAFF ID Date Data Source [id number] 11/13/2020 09:40:55 PM EDT [facility] Name Value Range Interpretation Code Description Data Ema rce(s) Supporting Document(s) POC GLUCOSE 171 mg/dL (70-99) H [facility] PERFORMED BY CLINICAL STAFF ID Date Data Source [id number] 11/13/2020 08:27:01 PM EDT [facility] Name Value Range Interpretation Code Description Data Ema rce(s) Supporting Document(s) HEMOGLOBIN A1C @ 6.6 % (4.0-6.0) H [facility] Performed using Siemens Hayden immunoassa y.Care must be taken when interpreting [id number] in patients with a hemoglobin variantor decreased erythrocyte lifespan. Values 5.7 - 6.4% suggest prediabetes.Values >=6.5% are diagnostic for diabetes.REFERENCE: DIABETES CARE 2018: 41(S13-S27).PERFORMED AT [address] [id number] EST [place] GLUCOSE 143 mg/dL [facility] ID Date Data Source [id number] 11/13/2020 07:05:42 PM EDT [facility] Name Value Range Interpretation Code Description Data Ema rce(s) Supporting Document(s) POC GLUCOSE 193 mg/dL (70-99) H [facility] PERFORMED BY CLINICAL STAFF ID Date Data Source [id number] 2020 11:32:00 AM EDT [facility] [place], [place] [address]ILTTADF NAME: SARINA LINARESDANIKOLE OF : 2REPORT: OPERATIONPATIENT NUMBER: [id number] STATUS: IPMEDICAL RECORD NUMBER: [id number] [id number] ADMISSION: 1DATE OF DISCHARGE:ROOM: 04DATE OF PROCEDURE: 1PATIENT OF: LEVI BhaktaREOPERATIVE DIAGNOSES: Bladder neck contracture, prostate cancer withneurogenic bladder, urinary incontinence, and urothelial cell carcinoma ofthe bladder.POSTOPERATIVE DIAGNOSES: Bladder neck contracture, prostate cancer withneurogenic bladder, urinary incontinence, and urothelial cell carcinoma ofthe bladder.SURGEON: Krista Kitchen MDANESTHESIA: General anesthesia.ESTIMATED BLOOD LOSS: Approximately 300 cc.IV FLUIDS: Approximately 2000 cc of crystalloid.COMPLICATIONS: None.DRAINS: A 10-mm GEOFF drain and 7-Iranian single J stent bilaterally.SPECIMENS: Bladder, prostate, and [...] ureter, I then clipped with 10 mm [id number] clip and then transected and I continued [...] ileoconduit. Prior to closing the anastomosis, a 7-Iranian single Jstent was advanced up from the [...] Kitchen, MDDictated: 11/13/2020 17:08DT: 11/13/2020 17:16Job #: [id number]: [facility] computer generated reports are not confirmed orauthenticated unless they are signed by the providerElectronically Authenticated by:KRISTA KITCHEN MD On 2020 11:32 AM EDT Name Value Range Interpretation Code Description Data Ema rce(s) Supporting Document(s) ID Date Data Source [id number] 11/13/2020 04:57:08 PM EDT [facility] Name Value Range Interpretation Code Description Data Ema rce(s) Supporting Document(s) POC GLUCOSE 166 mg/dL (70-99) H [facility] NOTIFIED PROVIDERNOTIFIED NURSEPERFORMED BY CLINICAL STAFF ID Date Data Source [id number] 11/13/2020 12:03:13 PM EDT [facility] Name Value Range Interpretation Code Description Data Ema rce(s) Supporting Document(s) POC GLUCOSE 134 mg/dL (70-99) H [facility] PERFORMED BY CLINICAL STAFF ID Date Data Source [id number] 11/13/2020 08:24:00 AM EDT [facility] Name Value Range Interpretation Code Description Data Ema rce(s) Supporting Document(s) Surgical pathology study Laboratory test result [facility] ([facility] [place]) [place] [address] SURGICAL PATHOLOGY REPORT Patient Name:SARINA LINARES :1940 [...] Electronically Signed Out By Anisa Mcmillan D.O. [facility] [place] [address] Technical component performed at [facility], [facility], Histopathology, [address] [place] [address], [address]. Reported at [facility], [address] [place] [address], [facility]. This report may include immunohistochemical or in-situ hybridization results. Testing was developed and the performance characteristics determined by [facility], as required by CLIA '88. The FDA has determined that approval for specific use is not necessary for clinical use. The quality of Hematoxylin and Eosin stains and as applicable, for all immunohistochemical and/or special stains, including positive and negative controls, were reviewed and considered appropriate. ICD codes: Z85.46 CPT4 codes: A: 93600X B: 86155X C: 59179Y ID Date Data Source [id number] 11/22/2020 12:14:35 AM EDT [place], [place] [address]Tel# SURGICAL PATHOLOGY REPORTPatient Name:SARINA LINARESGwen:2Received:11/14/2020ccession #:[id number](s) Received: A: Bladder, prostate and [...] Out By Anisa Mcmillan D.O. vlcPathology Associates [place], [place] [address]Technical component performed at [facility], Histopathology, [address] [place] [address], [facility].Reported at [facility], [address] [place] [address], [facility].This report may include immunohistochemical or in-situ hybridizationresults. Testing was developed and the performance characteristicsdetermined by [facility], as required byCLIA '88. The FDA has determined that approval for specific use is notnecessary for clinical use. The quality of Hematoxylin and Eosin stainsand as applicable, for all immunohistochemical and/or special stains,including positive and negative controls, were reviewed and consideredappropriate.ICD codes: Z85.46CPT4 codes: A: 41051PE: 29396VR: 76949V Name Value Range Interpretation Code Description Data Ema rce(s) Supporting Document(s) ID Date Data Source [id number] 11/06/2020 02:53:00 PM EDT [facility] Name Value Range Interpretation Code Description Data Ema rce(s) Supporting Document(s) Protein [Presence] in Urine by Test strip 30 mg/dL [facility] ([facility]) Glucose [Presence] in Urine Laboratory test result [facility] ([facility]) Ua Nitrite Laboratory test result [facility] ([facility]) Blood [Presence] in Urine by Visual Laboratory test result [facility] ([facility]) Ua Leuko Laboratory test result [facility] ([facility]) Ketones [Presence] in Urine by Test strip Laboratory test result [facility] ([facility]) Color of Urine Laboratory test result [facility] ([facility]) Ua Specific [place] 1.015 1.003-1.030 [facility] ([facility]) Clarity of Urine Laboratory test result [facility] ([facility]) pH of Urine by Test strip 7.0 5.0-7.5 [facility] ([facility]) Bilirubin.total [Presence] in Urine by Test strip Laboratory test res ult [facility] ([facility]) Urobilinogen [Mass/volume] in Urine by Test strip 0.2 E.U./dL 0.0-1.0 [facility] ([facility]) ID Date Data Source [id number] 11/06/2020 02:51:00 PM EDT [facility]) Name Value Range Interpretation Code Description Data Ema rce(s) Supporting Document(s) Bacteria identified in Urine by Culture Laboratory test result [facility] ([facility]) SPECIMEN DESCRIPTION URINE, COLLE CTION METHOD NOT SPECIFIED CULTURE RESULTS MIXED UROGENITAL DEIRDRE; PLEASE SUBMIT A NEW SPEC IMEN IF CLINICALLY INDICATED. REPORT STATUS FINAL 11/08/2020 ID Date Data Source [id number] 11/08/2020 07:41:09 AM EDT [facility] - CORE SPECIMEN DESCRIPTION URINE, COLLE CTION METHOD NOT SPECIFIEDCULTURE RESULTS MIXED UROGENITAL DEIRDRE; PLEASE SUBMIT A NEW SPEC IMEN IF CLINICALLY INDICATED.REPORT STATUS FINAL 11/08/2020 Name Value Range Interpretation Code Description Data Ema rce(s) Supporting Document(s) ID Date Data Source [id number] 11/06/2020 02:00:50 PM EDT [facility] SPEC EXP DATE 11/16/2020ATI ENT ABO/Rh A POSITIVEANTIBODY SCREEN NEGATIVETESTING SITE PERFORMED AT [address] [place], [place] [id number] BANK COMMENT BLOOD TYPE CONFIRMED. Name Value Range Interpretation Code Description Data Ema rce(s) Supporting Document(s) ID Date Data Source [id number] 11/06/2020 01:36:41 PM EDT [facility] Name Value Range Interpretation Code Description Data Ema rce(s) Supporting Document(s) SODIUM 140 mmol/L (136-145) [facility] POTASSIUM 3.9 mmol/L (3.6-5.2) [facility] CHLORIDE 110 mmol/L (100-108) H [facility] CO2 27 mmol/L (22-31) [facility] ANION GAP 3 mmol/L (7-16) L [facility] UREA NITROGEN 16 mg/dL (7-24) [facility] CREATININE 0.77 mg/dL (0.80-1.30) L [facility] BUN/CREAT RATIO 20.8 RATIO (10.0-20.0) H [facility] GLUCOSE 116 mg/dL (70-99) H [facility] CALCIUM 10.1 mg/dL (8.4-10.2) [facility] TOTAL PROTEIN 7.1 g/dL (6.4-8.2) [facility] ALBUMIN 3.1 g/dL (3.2-4.5) L [facility] GLOBULIN 4.0 g/dL (2.7-4.3) [facility] ALB/GLOB RATIO 0.8 RATIO [facility] ALKALINE PHOSPHATASE 94 U/L (45-117) [facility] BILIRUBIN,TOTAL 0.6 mg/dL (0.0-1.0) [facility] PLEASE NOTE:Total bilirubin results may be falselyelevated in patients taking Eltrombopag. AST (SGOT) 38 U/L (11-39) [facility] ALT (SGPT) 31 U/L (12-78) [facility] GFR >60 ml/min/1.73m2 (>59) [facility] GFR ( [facility]) >60 ml/min/1.73m2 (>59) [facility] GFR INTERPRETATION [facility] --NORMAL KIDNEY FUNCTION OR MILD DISEASE - GFR >OR= 60CHRONIC KIDNEY DISEASE - GFR 15 - 59RENAL FAILURE - GFR <15 Est. GFR calculation based on the MDRDstudy equation, which assumes a steadystate for creatinine. Est. GFR should notbe used for medication dosing. ID Date Data Source [id number] 11/06/2020 01:25:50 PM EDT [facility] Name Value Range Interpretation Code Description Data Ema rce(s) Supporting Document(s) HEMOGLOBIN A1C @ 6.7 % (4.0-6.0) H [facility] Performed using CostPrize immunoassa y.Care must be taken when interpreting [id number] in patients with a hemoglobin variantor decreased erythrocyte lifespan. Values 5.7 - 6.4% suggest prediabetes.Values >=6.5% are diagnostic for diabetes.REFERENCE: DIABETES CARE 2018: 41(S13-S27).PERFORMED AT [address] [place] [address] [place] GLUCOSE 146 mg/dL [facility] ID Date Data Source [id number] 11/06/2020 01:09:23 PM EDT [facility] Name Value Range Interpretation Code Description Data Ema rce(s) Supporting Document(s) WBC 3.2 10*3/uL (4.1-11.0) L [facility] [place] RBC 3.44 10*6/uL (4.60-6.10) L [facility] HGB 9.6 g/dL (13.5-18.0) L [facility] HCT 28.9 % (41.0-53.0) L [facility] PERFORMED AT [address] [place] [address] MCV 84.2 fL (80.0-95.0) [facility] MCH 27.9 pg (27.0-32.0) [facility] MCHC 33.2 g/dL (32.0-36.0) [facility] RDW 15.8 % (10.5-14.5) H [facility] PLT 117 10*3/uL (150-450) L [facility] MPV 8.8 fL (7.1-10.7) [facility] NEUT % 69.0 % (35.0-75.0) [facility] LYMPH % 10.3 % (16.0-52.0) L [facility] MONO % 11.9 % (0.0-8.0) H [facility] EOS % 6.5 % (0.0-5.0) H [facility] BASO % 2.3 % (0.0-4.0) [facility] NEUT # 2.2 10*3/uL (1.8-7.7) [facility] LYMPH # 0.3 10*3/uL (1.2-4.8) L [facility] MONO # 0.4 10*3/uL (0.0-0.8) [facility] Eosinophils [#/volume] in Blood by Automated count 0.2 10*3/uL (0.0-0 .5) [facility] BASO # 0.1 10*3/uL (0.0-0.2) [facility] ID Date Data Source [id number] 07/20/2020 03:20:00 PM EST [facility] ([facility]) Name Value Range Interpretation Code Description Data Ema rce(s) Supporting Document(s) Bacteria identified in Urine by Culture Laboratory test result [facility] ([facility]) SPECIMEN DESCRIPTION CATHETER,IND WELLING CULTURE RESULTS MIXED UROGENITAL DEIRDRE; PLEASE SUBMIT A NEW SPEC IMEN IF CLINICALLY INDICATED. REPORT STATUS FINAL 07/22/2020 ID Date Data Source [id number] 07/22/2020 09:37:50 AM EST [facility] - CORE SPECIMEN DESCRIPTION CATHETER,IND WELLINGCULTURE RESULTS MIXED UROGENITAL DEIRDRE; PLEASE SUBMIT A NEW SPEC IMEN IF CLINICALLY INDICATED.REPORT STATUS FINAL 07/22/2020 Name Value Range Interpretation Code Description Data Ema rce(s) Supporting Document(s) ID Date Data Source [id number] 07/20/2020 01:20:00 PM EST [facility] ([facility]) Name Value Range Interpretation Code Description Data Ema rce(s) Supporting Document(s) Glucose [Presence] in Urine Laboratory test result [facility] ([facility]) Protein [Presence] in Urine by Test strip 30 mg/dL [facility] ([facility]) Ua Nitrite Laboratory test result [facility] ([facility]) Ua Leuko Laboratory test result [facility] ([facility]) Color of Urine Laboratory test result [facility] ([facility]) Blood [Presence] in Urine by Visual Laboratory test result [facility] ([facility]) Ketones [Presence] in Urine by Test strip Laboratory test result [facility] ([facility]) Clarity of Urine Laboratory test result [facility] ([facility]) Ua Specific [place] 1.015 1.003-1.030 [facility] NT ([facility]) pH of Urine by Test strip 7.0 5.0-7.5 [facility] ([facility]) Bilirubin.total [Presence] in Urine by Test strip Laboratory test res ult [facility] ([facility]) Urobilinogen [Mass/volume] in Urine by Test strip 0.2 E.U./dL 0.0-1.0 [facility] ([facility]) ID Date Data Source [id number] 05/30/2020 02:17:00 PM EST [facility] ([facility]) Name Value Range Interpretation Code Description Data Ema rce(s) Supporting Document(s) Bacteria identified in Urine by Culture Laboratory test result [facility] ([facility]) <content>SPECIMEN DESCRIPTION CATHETER,INDWELLING</content>
<content>CULTURE RESULTS >100,000 CFU/ML [...]
<content>CEFTAROLINE 0.25 SUSCEPTIBLE</content> ID Date Data Source [id number] 06/03/2020 07:48:59 AM EST [facility] [...] rce(s) Supporting Document(s) ID Date Data Source [id number] 05/30/2020 02:11:00 PM EST [facility] ([facility]) Name Value Range Interpretation Code Description Data Ema rce(s) Supporting Document(s) Glucose [Presence] in Urine Laboratory test result [facility] ([facility]) Ua Nitrite Laboratory test result [facility] ([facility]) Protein [Presence] in Urine by Test strip 100 mg/dL [facility] ([facility]) Blood [Presence] in Urine by Visual Laboratory test result [facility] ([facility] Ua Leuko Laboratory test result [facility] ([facility]) Color of Urine Laboratory test result [facility] ([facility]) Clarity of Urine Laboratory test result [facility] ([facility]) Ketones [Presence] in Urine by Test strip Laboratory test result [facility] ([facility]) Bilirubin.total [Presence] in Urine by Test strip Laboratory test res ult [facility] ([facility] [place]) Ua Specific [place] 1.020 1.003-1.030 [facility] ([facility]) pH of Urine by Test strip 6.0 5.0-7.5 [facility] ([facility]) Urobilinogen [Mass/volume] in Urine by Test strip 1.0 E.U./dL 0.0-1.0 [facility] ([facility]) ID Date Data Source [id number] 03/22/2020 11:21:00 AM EDT [facility] ([facility]) Name Value Range Interpretation Code Description Data Ema rce(s) Supporting Document(s) Glucose [Presence] in Urine Laboratory test result [facility] ([facility]) Protein [Presence] in Urine by Test strip Laboratory test result [facility] ([facility]) Ua Nitrite Laboratory test result [facility] ([facility]) Ua Leuko Laboratory test result [facility] ([facility]) Blood [Presence] in Urine by Visual Laboratory test result [facility] ([facility]) Color of Urine Laboratory test result [facility] ([facility]) Clarity of Urine Laboratory test result [facility] ([facility]) Ketones [Presence] in Urine by Test strip Laboratory test result [facility] ([facility]) Ua Specific [place] Laboratory test result 1.003-1.030 [facility] ([facility]) Bilirubin.total [Presence] in Urine by Test strip Laboratory test res ult [facility] ([facility]) pH of Urine by Test strip 5.5 5.0-7.5 [facility] ([facility]) Urobilinogen [Mass/volume] in Urine by Test strip 0.2 E.U./dL 0.0-1.0 [facility] ([facility]) ID Date Data Source [id number] 03/20/2020 03:15:00 PM EDT [facility] ([facility]) Name Value Range Interpretation Code Description Data Ema rce(s) Supporting Document(s) Bacteria identified in Urine by Culture Laboratory test result [facility] ([facility]) SPECIMEN DESCRIPTION URINE, COLLE CTION METHOD NOT SPECIFIED CULTURE RESULTS >100,000 CFU/ML AEROCOCCUS URINAE NOTE: THERE ARE NO [facility]SI APPROVED CRITERIA FOR TESTING THE SUSCEPTIBILITY OF THIS ORGANISM TO ANTIBIOTICS. CONSULTATION WITH AN INFECTIOUS DISEASE PHYSICIAN OR PHARMACIST MAY BE WARRANTED IF THIS ORGANISM IS CLINICALLY SIGNIFICANT. REPORT STATUS FINAL 03/22/2020 ID Date Data Source [id number] 03/22/2020 09:29:42 AM EDT [facility] - CORE SPECIMEN DESCRIPTION URINE, COLLE [...] rce(s) Supporting Document(s) ID Date Data Source [id number] 03/20/2020 02:44:00 PM EDT [facility] ([facility]) Name Value Range Interpretation Code Description Data Ema rce(s) Supporting Document(s) Glucose [Presence] in Urine 100 mg/dL MEDENT ([facility]) Ua Leuko Laboratory test result ME DENT ([facility]) Protein [Presence] in Urine by Test strip Laboratory test result MEDENT ([facility]) Ua Nitrite Laboratory test result ME DENT ([facility]) Color of Urine Laboratory test result MEDENT ([facility]) Blood [Presence] in Urine by Visual Laboratory test result MEDENT ([facility]) Ketones [Presence] in Urine by Test strip Laboratory test result MEDENT ([facility]) Clarity of Urine Laboratory test result MEDENT ([facility]) Ua Specific [place] 1.015 1.003-1.030 MEDE NT ([facility]) pH of Urine by Test strip 7.0 5.0-7.5 MEDENT ([facility]) Bilirubin.total [Presence] in Urine by Test strip Laboratory test res ult MEDENT ([facility]) Urobilinogen [Mass/volume] in Urine by Test strip 1.0 E.U./dL 0.0-1.0 MEDENT ([facility]) ID Date Data Source [id number] 03/16/2020 02:59:00 PM EDT [facility] ([facility]) Name Value Range Interpretation Code Description Data Ema rce(s) Supporting Document(s) Bacteria identified in Urine by Culture Laboratory test result [facility]ENT ([facility] [place]) <content>SPECIMEN DESCRIPTION URI NE, COLLECTION METHOD NOT SPECIFIED</content>
<content>CULTURE RESULTS <10,000 CFU/ML REPRESENTING URETHRAL DEIRDRE</content>
<content>REPORT STATUS FINAL 03/18/2020</content> ID Date Data Source [id number] 03/18/2020 07:58:46 AM EDT [facility] - CORE SPECIMEN DESCRIPTION URINE, COLLE CTION METHOD NOT SPECIFIEDCULTURE RESULTS <10,000 CFU/ML REPRESENTING URETHRAL [place] STATUS FINAL 03/18/2020 Name Value Range Interpretation Code Description Data Ema rce(s) Supporting Document(s) ID Date Data Source [id number] 03/16/2020 02:50:00 PM EDT [facility] ([facility] [place]) Name Value Range Interpretation Code Description Data Ema rce(s) Supporting Document(s) Glucose [Presence] in Urine Laboratory test result MEDENT ([facility]) Protein [Presence] in Urine by Test strip Laboratory test result MEDENT ([facility]) Ua Nitrite Laboratory test result ME DENT ([facility]) Ua Leuko Laboratory test result ME DENT ([facility] [place]) Ketones [Presence] in Urine by Test strip Laboratory test result [facility]ENT ([facility] [place]) Blood [Presence] in Urine by Visual Laboratory test result MEDENT ([facility] [place]) Color of Urine Laboratory test result MEDENT ([facility] [place] Clarity of Urine Laboratory test result MEDENT ([facility] [place]) Ua Specific [place] 1.015 1.003-1.030 MEDE NT ([facility]) Bilirubin.total [Presence] in Urine by Test strip Laboratory test res ult MEDENT ([facility]) pH of Urine by Test strip 7.0 5.0-7.5 MEDENT ([facility]) Urobilinogen [Mass/volume] in Urine by Test strip 0.2 E.U./dL 0.0-1.0 MEDENT ([facility]) ID Date Data Source [id number] 03/14/2020 10:54:17 AM EDT [facility]FORMATION[facility] MRN Name Date of Age Gend*PT [id number] Sarina Linares 1940 79 years M SDCPT Location Admission Date/Time Visit ID Attending ProviderASNE AMBULATO* 03/02/20 0825 --- --- EPI ID CSN Admitting Provider [id number] Mar Castaneda MD([id number]) [place] [address] OPERATIVE REPORT OPNAME: SARINA LINARES Hamzah Velasco#: [id number] #: [id number] ADMISSION DATE: 03/02/2020DOB: 1940 SEX: M PT TYPE: H SURACCT #: [id number] CARE PHYSICIAN:REFERRING PHYSICIAN: MAR ALICEAATE OF OPERATION: [...] furthertherapy, risk of general anesthesia, PE, CVA, ND, systemic effect of them edication and paralysis of the bladder. All questions were answered.Informed consent was obtained.DESCRIPTION OF PROCEDURE:The patient was prepped and draped in normal sterile fashion with the areaof interest being the genitalia exposed in the dorsal lithotomy positionafter induction of adequate MAC anesthetic. The patient did receivepreoperative IV antibiotics as well as pneumatic compression stockingsprior to induction of anesthesia.A 19-Iranian rigid cystoscope was advanced through the urethra [...] He already has antibiotics at home.Recommendation for evyt-oxi-vwnladw pain medications for any discomfort.He should remain well hydrated.RECOMMENDATIONS:No heavy lifting, straining, exercise. No driving on pain medication. Hewill follow up in the office in 2 weeks as scheduled. Findings werereviewed with the patient's over the phone postoperatively.TIMOTEO DAVIDSON/ARCADIO Job #: [id number] DOC #: [id number] Name Value Range Interpretation Code Description Data [facility](s) Supporting Document(s) ID Date Data Source [id number] 03/02/2020 11:53:00 AM EDT [facility] ([facility] [place]) Name Value Range Interpretation Code Description [facility] Document[facility]s) Composition in Stone Laboratory test result MEDENT ([facility] [place]) Calculi composed primarily of: 50% magnesium ammonium [...] composition determined by FTIR analysis. Performed By: [facility] [address] [place] [address] Banker Mason: Flor Rosales MD Weight of Unspecified specimen 76 mg [facility] ([facility] [place]) Number of Stones 2 [facility] ([facility] [place]) Size [Entitic volume] of Stone Laboratory test result [facility]ENT ([facility] [place]) Unit: mm Appearance of Stone Laboratory test result [facility] ([facility] [place]) Specimen consists of two, various sized (1 mm to 9 mm), montero, irregular calculi fragments. ID Date Data Source [id number] 03/07/2020 07:23:28 PM EDT [facility] [place] Name Value Range Interpretation Code Description Data Ema rce(s) Supporting Document(s) COMPOSITION [facility] See Note Calculi composed primarily of: 50% [...] composition determined by FTIR analysis. Performed By: [facility] [address] [place] [address] Banker Mason: Flor Rosales MD MASS 76 mg [facility] [place] CALCULI NUMBER 2 [facility] CALCULI SIZE [facility] VariousUnit: mm CALCULI DESCRIPTION [facility] See Note Specimen consists of two, vario us sized (1 mm to 9 mm), montero, irregular calculi fragments. ID Date Data Source [id number] 03/02/2020 10:50:03 AM EDT [facility] INFORMATIONPatient MRN Name Date of Age Gend*PT [id number] Sarina Linares 1940 79 years M SDCPT Location Admission Date/Time Visit ID Attending ProviderASNE AMBULATO* 03/02/20 0825 --- Mar Castaneda MD([id number]) EPI ID CSN Admitting Provider [id number] Mar Castaneda MD([id number])H&P reviewed. The patient was examined and there are no changes to the H&P.The H&P that is being updated is available for review and was brought in Nba Castaneda MD10:50 AM Name Value Range Interpretation Code Description Data Ema rce(s) Supporting Document(s) ID Date Data Source [id number] 02/26/2020 09:30:00 AM EDT [facility] Name Value Range Interpretation Code Description Data Ema rce(s) Supporting Document(s) SARS coronavirus 2 RNA [facility] This lab was ordered by [facility] and reported by [email or web address]. ID Date Data Source [id number] 02/27/2020 12:07:19 PM EDT [facility] Name Value Range Interpretation Code Description Data Ema rce(s) Supporting Document(s) SARS-COV-2 JUSTEN [facility] Not DetectedReference range: Not Detecte d This nucleic acid amplification test was developed and its performance characteristics determined by [facility]. Nucleic acid amplification tests include PCR and [...] detected) result in this assay. Performed At: [facility] [id number] Osvaldo Dobson MD Ph:[phone] ID Date Data Source [id number] 02/24/2020 03:03:00 PM EDT [facility] ([facility]) Name Value Range Interpretation Code Description Data Ema rce(s) Supporting Document(s) Bacteria identified in Urine by Culture Laboratory test result [facility] ([facility] [place]) <content>SPECIMEN DESCRIPTION URI NE, COLLECTION METHOD NOT SPECIFIED</content>
<content>CULTURE RESULTS >10,000 TO <100,000 CFU/ML AEROCOCCUS URINAE</content>
<content>NOTE: THERE ARE NO CLSI APPROVED CRITERIA FOR TESTING THE</content>
<content>SUSCEPTIBILITY OF THIS ORGANISM TO ANTIBIOTICS. CONSULTATION WITH AN</content>
<content>INFECTIOUS DISEASE PHYSICIAN OR PHARMACIST MAY BE WARRANTED IF THIS</content>
<content>ORGANISM IS CLINICALLY SIGNIFICANT.</content>
<content> </content>
<content>REPORT STATUS FINAL 02/26/2020</content> ID Date Data Source [id number] 02/26/2020 12:44:43 PM EDT [facility] - [...] rce(s) Supporting Document(s) ID Date Data Source [id number] 02/24/2020 02:48:00 PM EDT [facility] ([facility]) Name Value Range Interpretation Code Description Data Ema rce(s) Supporting Document(s) Protein [Presence] in Urine by Test strip Laboratory test result [facility] ([facility] [place]) Glucose [Presence] in Urine 100 mg/dL [facility] ([facility]) Ua Nitrite Laboratory test result ME DENT ([facility] [place]) Ua Leuko Laboratory test result ME DENT ([facility] [place]) Color of Urine Laboratory test result [facility] ([facility] [place]) Blood [Presence] in Urine by Visual Laboratory test result [facility] ([facility] [place]) Ua Specific [place] 1.020 1.003-1.030 MEDE NT ([facility] [place]) Ketones [Presence] in Urine by Test strip Laboratory test result [facility] ([facility] [place]) Clarity of Urine Laboratory test result [facility] ([facility] [place]) Bilirubin.total [Presence] in Urine by Test strip Laboratory test res ult [facility] ([facility] [place]) pH of Urine by Test strip 6.0 5.0-7.5 [facility] ([facility] [place]) Urobilinogen [Mass/volume] in Urine by Test strip 0.2 E.U./dL 0.0-1.0 [facility] ([facility] [place]) ID Date Data Source [id number] 02/21/2020 10:48:00 AM EDT [facility] ([facility]) Name Value Range Interpretation Code Description Data Ema rce(s) Supporting Document(s) Bacteria identified in Urine by Culture Laboratory test result [facility]ENT ([facility]) Procedure Social History Code Duration Value Status Description Data Source(s ) Smoking 04/02/2021 12:00:00 AM EDT Never Smoker completed Never S moker eCW1 ([facility]) Smoking 03/20/2021 12:00:00 AM EDT Never Smoked Cigarettes com pleted Never Smoked Cigarettes [facility] ([facility] [place]) Smoking 03/05/2021 12:00:00 AM EDT Never Smoker completed Never S moker eCW1 ([facility]) Smoking 03/05/2021 12:00:00 AM EDT Never Smoker completed Never S moker eCW1 ([facility]) Smoking 03/05/2021 12:00:00 AM EDT Never Smoker completed Never S moker eCW1 ([facility]) Smoking 03/05/2021 12:00:00 AM EDT Never Smoker completed Never S moker eCW1 ([facility]) Smoking 03/05/2021 12:00:00 AM EDT Never Smoker completed Never S moker eCW1 ([facility]) Smoking 02/20/2021 12:00:00 AM EDT Never Smoker completed Never S moker eCW1 ([facility]) Smoking 01/31/2021 12:58:00 AM EDT Denies Ever Smoked complete d Denies Ever Smoked [facility] Smoking 01/01/2021 12:00:00 AM EDT Never Smoker completed Never S moker eCW1 ([facility]) Smoking 01/01/2021 12:00:00 AM EDT Never Smoker completed Never S moker eCW1 ([facility]) Smoking 01/01/2021 12:00:00 AM EDT Never Smoker completed Never S moker eCW1 ([facility]) Smoking 01/01/2021 12:00:00 AM EDT Never Smoker completed Never S moker eCW1 ([facility]) Smoking 01/01/2021 12:00:00 AM EDT Never Smoker completed Never S moker eCW1 ([facility]) Smoking 01/01/2021 12:00:00 AM EDT Never Smoker completed Never S moker eCW1 ([facility]) Smoking 01/01/2021 12:00:00 AM EDT Never Smoker completed Never S moker eCW1 ([facility]) Smoking 01/01/2021 12:00:00 AM EDT Never Smoker completed Never S moker eCW1 ([facility]) Smoking 11/28/2020 12:00:00 AM EDT Never Smoker completed Never S moker eCW1 ([facility]) Smoking 11/28/2020 12:00:00 AM EDT Never Smoker completed Never S moker eCW1 ([facility]) Smoking 11/28/2020 12:00:00 AM EDT Never Smoker completed Never S moker eCW1 ([facility]) Smoking 11/28/2020 12:00:00 AM EDT Never Smoker completed Never S moker eCW1 ([facility]) Smoking 11/21/2020 04:02:00 PM EDT Denies Ever Smoked complete d Denies Ever Smoked [facility] Smoking 11/11/2020 12:00:00 AM EDT Never Smoker completed Never S moker eCW1 ([facility]) Smoking 11/11/2020 12:00:00 AM EDT Never Smoker completed Never S moker eCW1 ([facility]) Smoking 11/07/2020 12:00:00 AM EDT Never Smoker completed Never S moker eCW1 ([facility]) Smoking 05/11/2020 12:00:00 AM EST Never Smoker completed Never S moker eCW1 ([facility]) Smoking 05/11/2020 12:00:00 AM EST Never Smoker completed Never S moker eCW1 ([facility]) Smoking 05/11/2020 12:00:00 AM EST Never Smoker completed Never S moker eCW1 ([facility]) Smoking 05/11/2020 12:00:00 AM EST Never Smoker completed Never S moker eCW1 ([facility]) Vital Signs ID Date Data Source UNK Name Value Range Interpretation Code Description Data Source(s) Body weight 175.0 [lb_av] 175.0 [lb_av] eCW1 ([facility]) Body height 71 [in_i] 71 [in_i] eCW1 ([facility]) Body mass index (BMI) [Ratio] 24.40 kg/m2 24.40 kg/m2 eCW1 ([facility]) Heart rate 99 /min 99 /min eCW1 ([facility]) Respiratory rate 18 /min 18 /min eCW1 ([facility]) Body temperature 97.1 [degF] 97.1 [degF] eCW1 ( [facility]) Systolic blood pressure 102 mm[Hg] 102 mm[Hg] e CW1 ([facility]) Diastolic blood pressure 56 mm[Hg] 56 mm[Hg] eCW1 ([facility]) Body weight 79.380 kg 79.380 kg MED[facility] ([facility] [place]) Body mass index (BMI) [Ratio] 24.4 kg/m2 24.4 k g/m2 MED[facility] ([facility] [place]) Systolic blood pressure 125 mm[Hg] 125 mm[Hg] M EDENT ([facility] [place]) Diastolic blood pressure 60 mm[Hg] 60 mm[Hg] [facility] ([facility] [place]) Heart rate 97 /min 97 /min [facility] ([facility] [place] Body height 71 [in_i] 71 [in_i] [facility] ([facility] [place]) 5'11" Body weight 175.00 [lb_av] 175.00 [lb_av] MEDEN T ([facility] [place]) Body mass index (BMI) [Ratio] 27.48 kg/m2 No rmal (applies to non-numeric results) 27.48 kg/m2 [facility] Body height 179.2224 cm Normal (applies to non-numeric res ults) 179.2224 cm [facility] Body weight Measured 89.358 kg Normal (applies to n on-numeric results) 89.358 kg [facility] Systolic blood pressure 117 mm[Hg] Normal (applies t o non-numeric results) 117 mm[Hg] [facility] Diastolic blood pressure 54 mm[Hg] Normal (applies to non-numeric results) 54 mm[Hg] [facility] Body temperature 36.5 ifeanyi Normal (applies to non-numeric results) 36.5 ifeanyi [facility] Deprecated Oxygen saturation in Capillary blood by Oximetry 96 % Normal (applies to non-numeric results) 96 % [facility] Heart rate 83 min Normal (applies to non-numeric resul ts) 83 min [facility] Respiratory rate 18 min Normal (applies to non-numeric results) 18 min [facility] Body weight 199.4 [lb_av] 199.4 [lb_av] eCW1 ([facility]) Body height 71 [in_i] 71 [in_i] eCW1 ([facility]) Body mass index (BMI) [Ratio] 27.81 kg/m2 27.81 kg/m2 eCW1 ([facility]) Heart rate 105 /min 105 /min eCW1 ([facility]) Respiratory rate 18 /min 18 /min eCW1 ([facility]) Body temperature 97.8 [degF] 97.8 [degF] eCW1 ( [facility]) Systolic blood pressure 124 mm[Hg] 124 mm[Hg] e CW1 ([facility]) Diastolic blood pressure 58 mm[Hg] 58 mm[Hg] eCW1 ([facility]) Oxygen saturation in Arterial blood by Pulse oximetry 95 % 95 % [facility] ([facility] [place]) Respiratory rate 18 /min 18 /min [facility] ( [facility] [place]) Body height 71 [in_i] 71 [in_i] [facility] ([facility] [place] 5'11" Body weight 198.00 [lb_av] 198.00 [lb_av] MEDEN T ([facility] [place]) Body weight 89.813 kg 89.813 kg [facility] ([facility] [place]) Body mass index (BMI) [Ratio] 27.6 kg/m2 27.6 k g/m2 [facility] ([facility] [place]) Systolic blood pressure 142 mm[Hg] 142 mm[Hg] M EDENT ([facility]) Diastolic blood pressure 66 mm[Hg] 66 mm[Hg] [facility] ([facility] [place]) Heart rate 105 /min 105 /min MED[facility] ([facility]) Body temperature 97.7 [degF] 97.7 [degF] [facility] ([facility] [place]) Systolic blood pressure 136 mm[Hg] Normal (applies t o non-numeric results) 136 mm[Hg] [facility] Diastolic blood pressure 70 mm[Hg] Normal (applies to non-numeric results) 70 mm[Hg] [facility] Heart rate 90 min Normal (applies to non-numeric resul ts) 90 min [facility] Deprecated Oxygen saturation in Capillary blood by Oximetry 98 % Normal (applies to non-numeric results) 98 % [facility] Respiratory rate 16 min Normal (applies to non-numeric results) 16 min [facility] Systolic blood pressure 136 mm[Hg] 136 mm[Hg] M EDENT ([facility]) Diastolic blood pressure 70 mm[Hg] 70 mm[Hg] [facility] ([facility] [place]) Heart rate 90 /min 90 /min MEDENT ([facility]) Respiratory rate 16 /min 16 /min MED[facility] ( [facility] [place]) Oxygen saturation in Arterial blood by Pulse oximetry 98 % 98 % [facility] ([facility] [place]) Body mass index (BMI) [Ratio] 28.0 kg/m2 No rmal (applies to non-numeric results) 28.0 kg/m2 [facility] Body height 179.2224 cm Normal (applies to non-numeric res ults) 179.2224 cm [facility] Body temperature 36.4 ifeanyi Normal (applies to non-numeric results) 36.4 ifeanyi [facility] Body weight Measured 201 [lb_av] Normal (applies to n on-numeric results) 201 [lb_av] [facility] Body height 71 [in_i] 71 [in_i] [facility] ([facility] [place] 5'11" Body weight 210.00 [lb_av] 210.00 [lb_av] MEDEN T ([facility] [place]) Body weight 95.256 kg 95.256 kg [facility] ([facility] [place]) Body mass index (BMI) [Ratio] 29.3 kg/m2 29.3 k g/m2 [facility] ([facility] [place]) Systolic blood pressure 128 mm[Hg] 128 mm[Hg] M EDENT ([facility] [place]) Diastolic blood pressure 70 mm[Hg] 70 mm[Hg] [facility] ([facility] [place]) Heart rate 109 /min 109 /min [facility] ([facility] [place] Body weight 223.2 [lb_av] 223.2 [lb_av] eCW1 ([facility]) Body height 71 [in_i] 71 [in_i] eCW1 ([facility]) Body mass index (BMI) [Ratio] 31.13 kg/m2 31.13 kg/m2 W1 ([facility]) Heart rate 116 /min 116 /min eCW1 ([facility]) Respiratory rate 18 /min 18 /min eCW1 ([facility]) Body temperature 97.8 [degF] 97.8 [degF] eCW1 ( [facility]) Systolic blood pressure 104 mm[Hg] 104 mm[Hg] e CW1 ([facility]) Diastolic blood pressure 54 mm[Hg] 54 mm[Hg] eCW1 ([facility]) Body height 71 [in_i] 71 [in_i] [facility] ([facility] [place] 5'11" Heart rate 110 /min 110 /min [facility] ([facility]) Body weight 216.00 [lb_av] 216.00 [lb_av] MEDEN T ([facility] [place]) Body weight 97.978 kg 97.978 kg [facility] ([facility] [place] Body mass index (BMI) [Ratio] 30.1 kg/m2 30.1 k g/m2 [facility] ([facility] [place]) Systolic blood pressure 133 mm[Hg] 133 mm[Hg] M EDENT ([facility] [place]) Diastolic blood pressure 64 mm[Hg] 64 mm[Hg] [facility] ([facility] [place]) Body weight 216.0 [lb_av] 216.0 [lb_av] eCW1 ([facility]) Body height 71 [in_i] 71 [in_i] eCW1 ([facility]) Body mass index (BMI) [Ratio] 30.12 kg/m2 30.12 kg/m2 W1 ([facility]) Heart rate 97 /min 97 /min eCW1 ([facility]) Respiratory rate 18 /min 18 /min eCW1 ([facility]) Body temperature 97.4 [degF] 97.4 [degF] eCW1 ( [facility]) Systolic blood pressure 104 mm[Hg] 104 mm[Hg] e CW1 ([facility]) Diastolic blood pressure 52 mm[Hg] 52 mm[Hg] eCW1 ([facility]) Systolic blood pressure 160 mm[Hg] Normal (applies t o non-numeric results) 160 mm[Hg] [facility] Diastolic blood pressure 69 mm[Hg] Normal (applies to non-numeric results) 69 mm[Hg] [facility] Heart rate 83 min Normal (applies to non-numeric resul ts) 83 min [facility] Respiratory rate 18 min Normal (applies to non-numeric results) 18 min [facility] Body temperature 36.5 ifeanyi Normal (applies to non-numeric results) [facility].5 [facility] Systolic blood pressure 160 mm[Hg] 160 mm[Hg] M EDENT ([facility]) Diastolic blood pressure 69 mm[Hg] 69 mm[Hg] [facility] ([facility]) Heart rate 83 /min 83 /min [facility] ([facility] Respiratory rate 18 /min 18 /min [facility] ( [facility]) Body temperature 36.5 [degF] 36.5 [degF] [facility] ([facility]) Deprecated Oxygen saturation in Capillary blood by Oximetry 99 % Normal (applies to non-numeric results) 99 % [facility] Oxygen saturation in Arterial blood by Pulse oximetry 99 % 99 % [facility] ([facility]) Body height 179.2224 cm Normal (applies to non-numeric res ults) 179.2224 cm [facility] Body weight Measured 89.9 kg Normal (applies to non-num gayatri results) 89.9 kg [facility] Body mass index (BMI) [Ratio] 27.64 kg/m2 No rmal (applies to non-numeric results) 27.64 kg/m2 [facility] Body weight 209.2 [lb_av] 209.2 [lb_av] eCW1 ([facility]) Body height 71 [in_i] 71 [in_i] eCW1 ([facility]) Body mass index (BMI) [Ratio] 29.17 kg/m2 29.17 kg/m2 eCW1 ([facility]) Heart rate 94 /min 94 /min eCW1 ([facility]) Respiratory rate 18 /min 18 /min eCW1 ([facility]) Body temperature 97.7 [degF] 97.7 [degF] eCW1 ( [facility]) Systolic blood pressure 124 mm[Hg] 124 mm[Hg] e CW1 ([facility]) Diastolic blood pressure 64 mm[Hg] 64 mm[Hg] eCW1 ([facility]) Body weight 92.081 kg 92.081 kg [facility] ([facility] Body mass index (BMI) [Ratio] 28.3 kg/m2 28.3 k g/m2 [facility] ([facility]) Systolic blood pressure 149 mm[Hg] 149 mm[Hg] M EDENT ([facility]) Diastolic blood pressure 75 mm[Hg] 75 mm[Hg] [facility] ([facility]) Heart rate 86 /min 86 /min [facility] ([facility] Body height 71 [in_i] 71 [in_i] [facility] ([facility] 5'11" Body weight 203.00 [lb_av] 203.00 [lb_av] MEDEN T ([facility]) Body height 71 [in_i] 71 [in_i] [facility] ([facility] 5'11" Body weight 240.00 [lb_av] 240.00 [lb_av] MEDEN T ([facility]) Body weight 108.864 kg 108.864 kg [facility] ([facility] Body mass index (BMI) [Ratio] 33.5 kg/m2 33.5 k g/m2 [facility] ([facility]) Body temperature 97.6 [degF] 97.6 [degF] [facility] ([facility]) Body weight 211 [lb_av] 211 [lb_av] eCW1 ([facility]) Body height 71 [in_i] 71 [in_i] eCW1 ([facility]) Body mass index (BMI) [Ratio] 29.43 kg/m2 29.43 kg/m2 eCW1 ([facility]) Systolic blood pressure 146 mm[Hg] 146 mm[Hg] e CW1 ([facility]) Diastolic blood pressure 82 mm[Hg] 82 mm[Hg] eCW1 ([facility]) Body weight 211 [lb_av] 211 [lb_av] eCW1 ([facility]) Body height 71 [in_i] 71 [in_i] eCW1 ([facility]) Body mass index (BMI) [Ratio] 29.43 kg/m2 29.43 kg/m2 eCW1 ([facility]) Heart rate 92 /min 92 /min eCW1 ([facility]) Respiratory rate 18 /min 18 /min eCW1 ([facility]) Body temperature 97.3 [degF] 97.3 [degF] eCW1 ( [facility]) Systolic blood pressure 142 mm[Hg] 142 mm[Hg] e CW1 ([facility]) Diastolic blood pressure 78 mm[Hg] 78 mm[Hg] eCW1 ([facility]) Body height 71 [in_i] 71 [in_i] [facility] ([facility] 5'11" Body weight 240.00 [lb_av] 240.00 [lb_av] MEDEN T ([facility]) Body weight 108.864 kg 108.864 kg [facility] ([facility] Body mass index (BMI) [Ratio] 33.5 kg/m2 33.5 k g/m2 [facility] ([facility]) Systolic blood pressure 155 mm[Hg] 155 mm[Hg] M EDENT ([facility]) Diastolic blood pressure 67 mm[Hg] 67 mm[Hg] [facility] ([facility]) Heart rate 101 /min 101 /min [facility] ([facility] Heart rate 90 /min 90 /min [facility] ([facility] Body height 71 [in_i] 71 [in_i] [facility] ([facility] 5'11" Body weight 240.00 [lb_av] 240.00 [lb_av] MEDEN T ([facility]) Body weight 108.864 kg 108.864 kg [facility] ([facility] Body mass index (BMI) [Ratio] 33.5 kg/m2 33.5 k g/m2 [facility] ([facility]) Systolic blood pressure 159 mm[Hg] 159 mm[Hg] M EDENT ([facility]) Diastolic blood pressure 70 mm[Hg] 70 mm[Hg] [facility] ([facility]) Body weight 108.864 kg 108.864 kg [facility] ([facility] Body mass index (BMI) [Ratio] 33.5 kg/m2 33.5 k g/m2 [facility] ([facility]) Body temperature 97.9 [degF] 97.9 [degF] [facility] ([facility]) Heart rate 100 /min 100 /min [facility] ([facility] Systolic blood pressure 146 mm[Hg] 146 mm[Hg] M EDENT ([facility]) Diastolic blood pressure 72 mm[Hg] 72 mm[Hg] [facility] ([facility]) Body height 71 [in_i] 71 [in_i] DAMI ([facility] 5'11" Body weight 240.00 [lb_av] 240.00 [lb_av] JULIETA Crawley ([facility]) ID Date Data Source [id number] 04/15/2021 08:59:01 AM [facility] Name Value Range Interpretation Code Description Data Source(s) WEIGHT RECORDED 175 lb 175 lb [facility] Body height Measured 71 in 71 in [facility] Patient Treatment Plan of Care Planned Activity Planned Date Details Description Data Source (s) Abdominal Binder/Elastic 3XL - 03/05/2021 12:00:00 AM EDT eCW1 ([facility]) Abdominal Binder/Elastic 3XL - 03/05/2021 12:00:00 AM EDT eCW1 ([facility]) Abdominal Binder/Elastic 3XL - 03/05/2021 12:00:00 AM EDT eCW1 ([facility]) Abdominal Binder/Elastic 3XL - 03/05/2021 12:00:00 AM EDT eCW1 ([facility]) Abdominal Binder/Elastic 3XL - 03/05/2021 12:00:00 AM EDT eCW1 ([facility]) HydrOXYzine HCl 10 MG 01/08/2021 01:00:00 AM EDT NETSMART ([facility]) Hydroxyzine Hydrochloride 10 MG Oral Tablet 01/08/2021 12:00:00 AM EDT eCW1 ([facility]) Hydroxyzine Hydrochloride 10 MG Oral Tablet 01/08/2021 12:00:00 AM EDT eCW1 ([facility]) Hydroxyzine Hydrochloride 10 MG Oral Tablet 01/08/2021 12:00:00 AM EDT eCW1 ([facility]) Hydroxyzine Hydrochloride 10 MG Oral Tablet 01/08/2021 12:00:00 AM EDT eCW1 ([facility]) Hydroxyzine Hydrochloride 10 MG Oral Tablet 01/08/2021 12:00:00 AM EDT eCW1 ([facility]) Hydroxyzine Hydrochloride 10 MG Oral Tablet 01/08/2021 12:00:00 AM EDT eCW1 ([facility]) Hydroxyzine Hydrochloride 10 MG Oral Tablet 01/08/2021 12:00:00 AM EDT eCW1 ([facility]) Hydroxyzine Hydrochloride 10 MG Oral Tablet 01/08/2021 12:00:00 AM EDT eCW1 ([facility]) Hydroxyzine Hydrochloride 10 MG Oral Tablet 01/08/2021 12:00:00 AM EDT eCW1 ([facility]) Hydroxyzine Hydrochloride 10 MG Oral Tablet 01/08/2021 12:00:00 AM EDT eCW1 ([facility]) Hydroxyzine Hydrochloride 10 MG Oral Tablet 01/08/2021 12:00:00 AM EDT eCW1 ([facility]) Hydroxyzine Hydrochloride 10 MG Oral Tablet 01/08/2021 12:00:00 AM EDT eCW1 ([facility]) Hydroxyzine Hydrochloride 10 MG Oral Tablet 01/08/2021 12:00:00 AM EDT eCW1 ([facility]) Hydroxyzine Hydrochloride 10 MG Oral Tablet 01/08/2021 12:00:00 AM EDT eCW1 ([facility]) Losartan Potassium 100 MG 01/07/2021 01:00:00 AM [place]) Spironolactone 25 MG 01/07/2021 01:00:00 AM EDT [facility] ([facility]) Losartan Potassium 50 MG Oral Tablet 01/01/2021 12:00:00 AM EDT eCW1 ([facility]) Spironolactone 25 MG Oral Tablet 01/01/2021 12:00:00 AM EDT eCW1 ([facility]) Spironolactone 25 MG Oral Tablet 01/01/2021 12:00:00 AM EDT eCW1 ([facility]) Spironolactone 25 MG Oral Tablet 01/01/2021 12:00:00 AM EDT eCW1 ([facility]) Spironolactone 25 MG Oral Tablet 01/01/2021 12:00:00 AM EDT eCW1 ([facility]) Losartan Potassium 100 MG Oral Tablet 01/01/2021 12:00:00 AM EDT eCW1 ([facility]) Spironolactone 25 MG Oral Tablet 01/01/2021 12:00:00 AM EDT eCW1 ([facility]) Losartan Potassium 100 MG Oral Tablet 01/01/2021 12:00:00 AM EDT eCW1 ([facility]) Spironolactone 25 MG Oral Tablet 01/01/2021 12:00:00 AM EDT eCW1 ([facility]) Losartan Potassium 100 MG Oral Tablet 01/01/2021 12:00:00 AM EDT eCW1 ([facility]) Spironolactone 25 MG Oral Tablet 01/01/2021 12:00:00 AM EDT eCW1 ([facility]) Spironolactone 25 MG Oral Tablet 01/01/2021 12:00:00 AM EDT eCW1 ([facility]) Losartan Potassium 100 MG Oral Tablet 01/01/2021 12:00:00 AM EDT eCW1 ([facility]) Spironolactone 25 MG Oral Tablet 01/01/2021 12:00:00 AM EDT eCW1 ([facility]) Losartan Potassium 100 MG Oral Tablet 01/01/2021 12:00:00 AM EDT eCW1 ([facility]) Spironolactone 25 MG Oral Tablet 01/01/2021 12:00:00 AM EDT eCW1 ([facility]) Losartan Potassium 100 MG Oral Tablet 01/01/2021 12:00:00 AM EDT eCW1 ([facility]) Spironolactone 25 MG Oral Tablet 01/01/2021 12:00:00 AM EDT eCW1 ([facility]) Losartan Potassium 100 MG Oral Tablet 01/01/2021 12:00:00 AM EDT eCW1 ([facility]) Spironolactone 25 MG Oral Tablet 01/01/2021 12:00:00 AM EDT eCW1 ([facility]) Losartan Potassium 100 MG Oral Tablet 01/01/2021 12:00:00 AM EDT eCW1 ([facility]) Spironolactone 25 MG Oral Tablet 01/01/2021 12:00:00 AM EDT eCW1 ([facility]) Spironolactone 25 MG Oral Tablet 01/01/2021 12:00:00 AM EDT eCW1 ([facility]) Losartan Potassium 100 MG Oral Tablet 01/01/2021 12:00:00 AM EDT eCW1 ([facility]) Potassium Chloride 12/31/2020 01:00:00 AM EDT NETSMART ([facility]) Colace 100 MG 12/31/2020 01:00:00 [facility] Lasix 20 MG 12/24/2020 01:00:00 AM EDT [place] [facility] ([facility]) Furosemide 40 MG Oral Tablet [Lasix] 12/24/2020 12:00:00 AM EDT eCW1 ([facility]) Furosemide 40 MG Oral Tablet [Lasix] 12/24/2020 12:00:00 AM EDT eCW1 ([facility]) Furosemide 40 MG Oral Tablet [Lasix] 12/24/2020 12:00:00 AM EDT eCW1 ([facility]) Furosemide 40 MG Oral Tablet [Lasix] 12/24/2020 12:00:00 AM EDT eCW1 ([facility]) Furosemide 40 MG Oral Tablet [Lasix] 12/24/2020 12:00:00 AM EDT eCW1 ([facility]) Furosemide 20 MG Oral Tablet [Lasix] 12/24/2020 12:00:00 AM EDT eCW1 ([facility]) Furosemide 20 MG Oral Tablet [Lasix] 12/24/2020 12:00:00 AM EDT eCW1 ([facility]) Furosemide 20 MG Oral Tablet [Lasix] 12/24/2020 12:00:00 AM EDT eCW1 ([facility]) Furosemide 20 MG Oral Tablet [Lasix] 12/24/2020 12:00:00 AM EDT eCW1 ([facility]) Furosemide 40 MG Oral Tablet [Lasix] 12/24/2020 12:00:00 AM EDT eCW1 ([facility]) Furosemide 20 MG Oral Tablet [Lasix] 12/24/2020 12:00:00 AM EDT eCW1 ([facility]) Furosemide 20 MG Oral Tablet [Lasix] 12/24/2020 12:00:00 AM EDT eCW1 ([facility]) Furosemide 20 MG Oral Tablet [Lasix] 12/24/2020 12:00:00 AM EDT eCW1 ([facility]) Furosemide 20 MG Oral Tablet [Lasix] 12/24/2020 12:00:00 AM EDT eCW1 ([facility]) Furosemide 20 MG Oral Tablet [Lasix] 12/24/2020 12:00:00 AM EDT eCW1 ([facility]) Furosemide 20 MG Oral Tablet [Lasix] 12/24/2020 12:00:00 AM EDT eCW1 ([facility]) Potassium Chloride CR 15 MEQ 12/24/2020 12:00:00 AM EDT eCW1 ([facility]) Furosemide 20 MG Oral Tablet [Lasix] 12/24/2020 12:00:00 AM EDT eCW1 ([facility]) Potassium Chloride CR 15 MEQ 12/24/2020 12:00:00 AM EDT eCW1 ([facility]) Ferrous Sulfate 325 (65 Fe) MG 11/30/2020 01:[facility] Melatonin 10 MG 11/30/2020 01:00:00 AM [facility] MetFORMIN HCl ER (MOD) 500 MG 11/30/2020 01:00:00 AM EDT [facility] ([facility]) Lidocaine Pain Relieving 4 % 11/30/2020 01:00:00 AM [facility] Losartan Potassium-HCTZ 100-12.5 MG 11/24/2020 01:00:00 AM EDT [facility] ([facility]) MetFORMIN HCl 500 MG 11/24/2020 01:00:00 AM EDT [facility] ([facility]) Colace 100 MG 11/24/2020 01:00:00 AM EDT [facility] ([facility]) Ferrous Sulfate 324 MG 11/24/2020 01:00:00 AM EDT [facility] ([facility]) Ciprofloxacin HCl 750 MG 11/24/2020 01:00:00 AM EDT [facility] ([facility]) Lancets 28 G 11/24/2020 01:00:00 AM EDT [facility] ([facility]) FreeStyle Hendrix Lite w/Device 11/24/2020 01:00:00 AM EDT [facility] ([facility]) Tylenol Extra Strength 500 MG 11/24/2020 01:00:00 AM EDT [facility] ([facility]) Tylenol PM 11/24/2020 01:00:00 AM EDT N [facility] ([facility])
[2021-04-19 17:30] LABS: RSV AMPLIFICATION NEGATIVE (NEGATIVE)
[2021-04-19] MEDS: HumaLOG INSULIN (NovoLOG) PER UNIT SC SCH (21:00)
[2021-04-19] MEDS ORDERED: IBUP200C33 PO (23:50)
[2021-04-19] MEDS ORDERED: BENA25CA4 PO (23:53)
[2021-04-19] MEDS ORDERED: HOME MED LIST COMPLETE! XX SCH (23:55)
[2021-04-20] VITALS (13 sets, daily range): BP systolic 111–137; BP diastolic 47–62
--- NOTE | 2021-04-20 00:40 | HPEPDOC ---
[facility] Medical History & Physical Date of Admission Apr 20, 2021 Date of Service: Apr 20, 2021 Primary Care Physician: Sergey Braun Attending Physician: SUSHILA RODRIGUEZ MD History and Physical CHIEF COMPLAINT: Blood in urine, dizziness HISTORY OF PRESENT ILLNESS: Patient is a 80-year-old male with a history of noninsulin-dependent diabetes, HCC, and history of bladder cancer status post resection and ileal conduit formation who presents today with dizziness and hematuria from ileal conduit stoma. The patient reports that he has had blood in his ileal conduit stoma since his last hospitalization approximately 6 days ago on the . Patient reports that today he had worsened dizziness and felt very weak and therefore presented to the ER today. Patient is seen by Dr. Fowler in [place], of the [facility] urology group. The urology group was contacted by the ED physician, and Dr. Freeman, part of the urology group, reported that the patient did not need to be transferred to [place] as the wait time would be greater than [address] Sanford was then contacted who stated that he would see the patient in the a.m. In the ED, the patient was transfused with 2 units of leukocyte reduced packed red blood cells, due to presenting hemoglobin being 7.6, and ongoing active hematuria output from the ileal conduit bag. I saw the patient after the transfusion was already done. The patient reported that he was no longer feeling weak and did not feel dizzy. He reported that he was able to stand on up on his own and walk to the commode. Patient reported that he did not have diarrhea pr ior to admission, but did have 4 bowel movements in the past 3 hours, all soft stools. Patient denied any runny stools, constipation, nausea, vomiting. Patient reported generalized pruritus which has been going on for the past 2-1/2 weeks. Patient reported that he was supposed to be seen by a GI specialist in 4 days for an embolization therapy procedure which he is unsure what it was related to. He reports that he was also supposed to be started on a medication at that time for the jaundice and pruritus. The patient was last admitted 6 days ago for symptomatic anemia and was transfused with 2 units of leukocyte reduced packed red blood cells due to hemoglobin being 7.2 and there was intermittent bleeding from the ileocecal stoma. The patient was discharged on April 16, 2021. PAST MEDICAL HISTORY: Type 2 diabetes mellitus Hypercholesterolemia History of malignant neoplasm of the bladder History of malignant neoplasm of the prostate Radiation proctitis Thrombocytopenia History of urinary calculi Nonalcoholic steatohepatitis Insomnia History of adenomatous polyp of the colon Leg cramps Knee arthritis Essential hypertension PAST SURGICAL HISTORY: Tonsillectomy Prostate biopsy Cystoscopy with TURBT, 2008 and 2010 Urethral stricture dilation, 2011 Robotic right ureteral reimplantation, 2010 Multiple cystoscopies, last in 2018 TURP, 2019 Prostatectomy, October 2020 Colonoscopy Right rotator cuff tear repair Biopsy of mandibular bone, 2013 Colonoscopy with polypectomy, 2016 SOCIAL HISTORY: Marital status: , patient's healthcare proxy is his , Brandie: [phone]. (Patient also reported that the phone number could be [phone], patient stated that he was confused between his own cell phone number and his 's.) Tobacco use: Denies ETOH: Denies Illicit drug use: Denies FAMILY HISTORY: No pertinent family history ALLERGIES: Please see below. REVIEW OF SYSTEMS: General: Patient denies fevers HEENT: Patient denies headaches Cardiovascular: Patient denies chest pain Respiratory: Patient denies shortness of breath, cough GI: Patient denies abdominal pain, nausea, vomiting, diarrhea : Patient reports bloody output from his ileal conduit bag Extremities: Patient denies swelling or pain in extremities Neurological: Patient denies numbness or tingling in legs. Skin: Patient denies any new rashes or lesions. Reports generalized pruritus for the past 2-1/2 weeks. Hematologic: Patient denies any easy bruising or bleeding. Lymphatic: Patient denies any lumps or bumps in neck, axilla, or groin HOME MEDICATIONS: Please see below. PHYSICAL EXAMINATION: Vital Signs Date Time Temp Pulse Resp B/P (MAP) Pulse Ox O2 Delivery O2 Flow Rate FiO2 04/19/21 14:51 97.3 97 18 80/30 (47) 95 Room Air GENERAL APPEARANCE: Patient is in no acute distress and is sitting up in his gurney. Patient does appear jaundiced. HEENT: Normocephalic atraumatic, EOMI, no rhinorrhea, mucous membranes moist. CARDIOVASCULAR: Systolic ejection murmur plus 2 out of 6 best heard at the left intercostal space, no rubs or gallops. LUNGS: Bibasilar crackles appreciated. ABDOMEN: Soft, nondistended, ileal conduit bag present with clot around the rim of the stoma and hematuria in the bag, mild tenderness of the right lower quadrant. MUSCULOSKELETAL: Upper and lower extremity strength 5 out of 5. EXTREMITIES: No clubbing, mild plus half pitting edema of the lower extremities. NEUROLOGICAL: No focal deficits, cranial nerves II to XII intact. PSYCHIATRIC: Affect full and open, alert and oriented x3. LABORATORY DATA: IMAGING: None. MICROBIOLOGY: COVID neg ASSESSMENT/PLAN: #Symptomatic anemia, secondary to hematuria Patient already transfused with 2 leukocyte reduced packed red blood cells H&H every 6 hours Urology consulted, Dr. Garcias will see patient in the a.m. 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 daily as needed #Pruritus Continue home hydroxyzine 10 mg every 4 hours as needed #Hypertension hold lasix, metformin & spironolactone and losartan bc of YUE -day time team may consider starting amolodipine #History of allergies Continue home montelukast #NIDDM Hold home Metformin Sliding scale insulin in place -check A1C VTE prophylaxis: Teds and sequentials (no pharmacologic prophylaxis due to active bleed). Disposition: Admit to [facility], expect 2 midnight stay. Home Medications Scheduled Ferrous Sulfate (Iron) 325 Mg Tablet, 325 MG PO 3XW MON, WED, FRI Furosemide (Furosemide) 40 Mg Tablet, 40 MG PO DAILY Losartan Potassium (Losartan Potassium) 50 Mg Tablet, 25 MG PO DAILY Metformin HCl (Metformin HCl ER) 500 Mg Tab, 1,000 MG PO QPM Montelukast Sodium (Montelukast Sodium) 10 Mg Tablet, 10 MG PO QHS Polyethylene Glycol 3350 (Polyethylene Glycol 3350) 17 Gm Powd.pack, 17 GM PO DAILY @NOON Spironolactone (Spironolactone) 25 Mg Tablet, 25 MG PO BID Scheduled PRN Diphenhydramine HCl (Benadryl) 25 Mg Capsule, 25 MG PO QHS PRN for SLEEP Docusate Sodium (Colace) 100 Mg Capsule, 100 MG PO BID PRN for CONSTIPATION Hydroxyzine HCl (Hydroxyzine HCl) 10 Mg Tablet, 10 MG PO Q4H PRN for ITCHING Ibuprofen (Motrin Ib) 200 Mg Capsule, 200 MG PO TID PRN for MODERATE PAIN Allergies Coded Allergies: No Known Allergies (Unverified , 08/20/19) A-FIB/CHADSVASC A-FIB History Current/History of A-Fib/PAF?: No Current PO Anticoag Therapy: No GME ATTESTATION GME ATTESTATION My faculty preceptor for this patient encounter was physically present during the encounter and was fully available. All aspects of the patient interview, examination, medical decision making process, and medical care plan development were reviewed and approved by the faculty preceptor. The faculty preceptor is aware and concurs with the plan as stated in the body of this note and will attest to such by his/her cosignature. ATTENDING NOTE TIME OF SERVICE 1231AM I examined the patient, discussed the case with and agree with the findings as documented. Jack Morales DO Apr 20, 2021 00:40 SUSHILA RODRIGUEZ MD Apr 20, 2021 05:23
[2021-04-20 01:15] LABS: PERCENT SATURATION 10.6 % (19.7-50.0)
[2021-04-20] MEDS ORDERED: MIRALAX *UNIT DOSE* 17GM PACKET PO PRN (01:20)
[2021-04-20] MEDS ORDERED: DEXTROSE 50% 50 ML SYRINGE IV PRN (01:25)
[2021-04-20] MEDS ORDERED: GLUCAGON INJ 1MG VIAL SC PRN (01:25)
[2021-04-20] MEDS ORDERED: GLUCOSE 4GM CHEW TABLET PO PRN (01:25)
--- OUTSIDE RECORDS SUMMARY | 2021-04-20 01:41 | CCD ---
Author Author [facility] Organization [facility] Address Unknown Phone Unavailable Care Team Providers Care Cutter Brake Lining Name Role Phone Bhutta, Damion Unavailable Bhutta, Damion Unavailable Bhutta, Damion Unavailable Bhutta, Damion Unavailable Bhutta, Damion Unavailable Bhutta, Damion Unavailable Bhutta, Damion Unavailable Bhutta, Damion Unavailable LORENA RITTER MD Unavailable Unavailable LORENA [...] Unavailable Unavailable LORENA RITTER MD Unavailable Unavailable RITTERLORENA MAHMOOD MD Unavailable Unavailable RITTERLORENA MAHMOOD MD Unavailable Unavailable RITTERLORENA MAHMOOD MD Unavailable Unavailable RITTERLORENA MAHMOOD MD Unavailable Unavailable LORENA RITTER MD Unavailable Unavailable LORENA RITTER MD Unavailable Unavailable LORENA RITTER MD Unavailable Unavailable LORENA RITTER MD Unavailable Unavailable RITTERLORENA MAHMOOD MD Unavailable Unavailable RITTER, LORENALIVIER MANN Unavailable Unavailable RITTERLORENA MAHMOOD MD Unavailable Unavailable RITTER, LORENALIVIER MANN Unavailable Unavailable RITTERLORENA MAHMOOD MD Unavailable Unavailable RITTERLORENA MAHMOOD MD Unavailable Unavailable RITTERLORENA MAHMOOD MD Unavailable Unavailable LORENA RITTER MD Unavailable Unavailable RITTERLORENA MAHMOOD MD Unavailable Unavailable RITTERLORENA MAHMOOD MD Unavailable Unavailable LORENA RITTER MD Unavailable [...] Unavailable Unavailable LORENA RITTER MD Unavailable Unavailable Bessie VARGAS Unavailable Unavailable ANDREINA, M DENVER PA Unavailable [...] Unavailable Unavailable Eulalia Muñiz MD Unavailable Unavailable ELIZABETH WATERS MD Unavailable [...] Unavailable Unavailable ALEKSIC, ILIJA MD Unavailable Unavailable GARETH MONTANA MD Unavailable Unavailable GARETH MONTANA MD Unavailable Unavailable GARETH MONTANA MD Unavailable Unavailable GARETH MONTANA MD Unavailable Unavailable GARETH MONTANA MD Unavailable Unavailable GARETH MONTANA MD Unavailable Unavailable GARETH MONTANA MD Unavailable Unavailable Pete, Jermaine DO Unavailable [...] Unavailable Pete, Jermaine DO Unavailable Unavailable Pete, Jermaien DO Unavailable Unavailable Pete, Jermaine DO Unavailable [...] Unavailable Unavailable Pete, Jermaine DO Unavailable Unavailable Saxena, S Kalia RPA Unavailable [...] Unavailable Saxena, S Kalia RPA Unavailable Unavailable Sxaena, S Kalia RPA Unavailable Unavailable Saxena, S [...] Amee MANUEL MD Unavailable Unavailable MADISSOO, Amee MAR MD Unavailable Unavailable Amee CASTANEDA MD [...] Unavailable Unavailable Amee PEREZ MD Unavailable Unavailable Aeme PEREZ MD Unavailable Unavailable Amee PEREZ MD [...] Unavailable Kitchen, N Po MD Unavailable Unavailable Kithcen, N Po MD Unavailable Unavailable Kitchen, N [...] Unavailable Unavailable RENATASai MORALES MD Unavailable Unavailable Sai YANEZ MD Unavailable [...] Unavailable HARTZHEIM, Bessie JULIAN MD Unavailable Unavailable HARTLEANN, Bessie JULIAN MD Unavailable Unavailable HARTLEANN, Bessie JULIAN MD Unavailable Unavailable HARTZHEIM, Bessie JULIAN MD Unavailable Unavailable HARTJeannieHEIM, Bessie JULIAN MD Unavailable Unavailable HARTZFORTINO, Bessie JULIAN MD Unavailable Unavailable HARTBessie NORIEGA MD Unavailable Unavailable HARTBessie NORIEGA MD Unavailable Unavailable Bessie CARLIN MD Unavailable Unavailable Bessie CARLIN MD Unavailable Unavailable Bessie CARLIN MD Unavailable Unavailable HARTJeannieHEIMBessie MD Unavailable Unavailable HARTZHEIMBessie MD Unavailable Unavailable HARTZHEIMBessie MD Unavailable Unavailable HARTZHEIMBessie MD Unavailable Unavailable HARTZHEIMBessie MD Unavailable Unavailable HARTZHEIMBessie MD Unavailable Unavailable HARTZHEIMBessie MD Unavailable Unavailable HARTZBessie FREITAS MD Unavailable Unavailable HARTZHEIMBessie MD Unavailable Unavailable HARTZBessie FREITAS MD Unavailable Unavailable HARTBessie NORIEGA MD Unavailable Unavailable BHUTDAMION BOYD Unavailable Unavailable ELIZABETH WATERS MD Unavailable Unavailable [...] Unavailable Unavailable Sai YANEZ MD Unavailable Unavailable Easton, F Tarah PA Unavailable Unavailable Orleans, F Tarah PA Unavailable Unavailable Easton, F Tarah PA Unavailable Unavailable Orleans, F Tarah PA Unavailable Unavailable Orleans, F Tarah PA Unavailable Unavailable Easton, F Tarah PA Unavailable Unavailable Orleans, F Tarah PA Unavailable Unavailable Easton, F Tarah PA Unavailable Unavailable Easton, F Tarah PA Unavailable Unavailable Orleans, F Tarah PA Unavailable Unavailable [place], F Tarah PA Unavailable Unavailable Easton, F Tarah PA Unavailable Unavailable Easton, F Tarah PA Unavailable Unavailable [place], F Tarah PA Unavailable Unavailable [place], F Tarah PA Unavailable Unavailable Easton, F Tarah PA Unavailable Unavailable Easton, F Tarah PA Unavailable Unavailable Orleans, F Tarah PA Unavailable Unavailable Orleans, F Tarah PA Unavailable Unavailable [place], F Tarah PA Unavailable Unavailable Easton, F Tarah PA Unavailable Unavailable Easton, F Tarah PA Unavailable Unavailable Easton, F Tarah PA Unavailable Unavailable Easton, F Tarah PA Unavailable Unavailable Easton, F Tarah PA Unavailable Unavailable Orleans, F Tarah PA Unavailable Unavailable Easton, F Tarah PA Unavailable Unavailable Orleans, F Tarah PA Unavailable Unavailable Orleans, F Tarah PA Unavailable Unavailable Orleans, F Tarah PA Unavailable Unavailable Orleans, F Tarah PA Unavailable Unavailable Easton, F Tarah PA Unavailable Unavailable [place], F Tarah PA Unavailable Unavailable [place], F Tarah PA Unavailable Unavailable Easton, F Tarah PA Unavailable Unavailable [place]on, F Tarah PA Unavailable Unavailable [place]on, F Tarah PA Unavailable Unavailable [place], F Tarah PA Unavailable Unavailable Cloonan, L Cyn PA Unavailable Unavailable Cloonan, L Cyn PA Unavailable Unavailable Cloonan, L Ycn PA Unavailable Unavailable Cloonan, L Cyn PA [...] L Cyn PA Unavailable Unavailable Cloonan, L Ycn PA Unavailable Unavailable Cloonan, L Cyn PA [...] Unavailable Unavailable Melyssa RANKIN MD Unavailable Unavailable Badrinath, Moni Unavailable Badrinath, Moni Unavailable Badrinath, Moni Unavailable BADRINATH, MONI . Unavailable Unavailable Amee PEREZ MD Unavailable Unavailable [...] Unavailable Amee CASTANEDA MD Unavailable Unavailable Amee CASTANEAD MD Unavailable Unavailable Amee CASTANEDA MD Unavailable [...] Unavailable Amee CASTANEDA MD Unavailable Unavailable Amee CASTANEDAS MD Unavailable Unavailable MADISSOOAmee MD Unavailable Unavailable [...] MD Unavailable Unavailable TABATHAISSOOAmee MD Unavailable Unavailable DENISEOOAmee MD Unavailable Unavailable DENISEOOAmee MD Unavailable Unavailable DENISEOOAmee MD Unavailable Unavailable DENISEOOAmee MD Unavailable Unavailable Amee CASTANEDA MD Unavailable Unavailable DENISEOOAmee MD Unavailable Unavailable DENISEOOAmee MD Unavailable Unavailable DENISEOOAmee MD Unavailable Unavailable Amee CASTANEDA MD Unavailable Unavailable DENISEOOAmee MD Unavailable Unavailable Amee CASTANEDA MD Unavailable Unavailable Amee CASTANEDA MD Unavailable Unavailable DENISEOOAmee MD Unavailable Unavailable DENISEOOAmee MD Unavailable Unavailable Aeme CASTANEDA MD Unavailable Unavailable Amee CASTANEDA MD [...] Unavailable Анна Braun MD Unavailable Unavailable Анна Branu MD Unavailable Unavailable Анна Braun MD Unavailable [...] Unavailable Unavailable Анна Braun MD Unavailable Unavailable Kade, Анна MD Unavailable Unavailable Kade, Анна MD Unavailable Unavailable Kade, Анна MD Unavailable Unavailable Kade, Анна MD Unavailable Unavailable Kade, Анна MD Unavailable Unavailable Kade, Анна MD Unavailable Unavailable Kade, Анна MD Unavailable Unavailable Kade, Анна MD Unavailable Unavailable Kade, Анна MD Unavailable Unavailable Kade, Анна MD Unavailable Unavailable Kade, Анна MD Unavailable Unavailable Kade, Анна MD Unavailable Unavailable Kade, Анна MD Unavailable Unavailable Kade, Анна MD Unavailable Unavailable Kade, Анна MD Unavailable Unavailable Kade, Анна MD Unavailable Unavailable Kade, Анна MD Unavailable Unavailable Kade, Анна MD Unavailable Unavailable Kade, Анна MD Unavailable Unavailable Kade, Анна MD Unavailable Unavailable Kade, Анна MD Unavailable Unavailable Kade, Анна MD Unavailable Unavailable Kade, Анна MD Unavailable Unavailable Kade, Анна MD Unavailable Unavailable Kade, Анна MD Unavailable Unavailable Kade, Анна MD Unavailable Unavailable Kade, Анна MD Unavailable Unavailable Kade, Анна MD Unavailable Unavailable Kade, Анна MD Unavailable Unavailable Kade, Анна MD Unavailable Unavailable PHYSICIAN, ER Unavailable Unavailable Re-disclosure Warning The records that [...] is protected by Article 27-F of the [facility] Public Health law. If you continue you may have access to information: Regarding HIV / AIDS; Provided by facilities licensed or operated by the [facility] Office of Mental Health; or Provided by the [facility] Office for People With Developmental Disabilities. If such information is present, then the following [facility] mandated warning applies: This information has [...] law may result in a fine or detention sentence or both. A general authorization for the release of medical or other information is NOT sufficient authorization for further disc losure. Allergies and Adverse Reactions Type Description Substance Reaction Status Data Source(s ) Propensity to adverse reactions NO KNOWN ALLERGIES NO KNOWN ALLERGIES [facility] Propensity to adverse reactions BICALUTAMIDE BICALUTAMIDE Palpitation s [facility] Casodex Casodex Casodex active [facility] ([facility]) Family History Family Member Name Family Member Gender Family Member Status Date o f Status Description Data Source(s) Unknown Unknown Problem [facility] Unknown Unknown Problem [facility] ([facility] [place] Encounters Encounter Providers Location Date Indications Data Source(s ) Outpatient Attender: Cyn ERVIN 06/27/2021 12:00:0 0 AM [facility] Outpatient Attender: Jermaine Freeman DO 06/27/2021 12:00:00 AM [facility] Outpatient Attender: DAMION CASHAttender: Damion Cash 05/15/2021 12:00:00 AM [facility] Outpatient Attender: Jermaine Freeman DO 05/09/2021 12:00:00 AM [facility] Outpatient Attender: Moni FlorezAttender: MONI SINCLAIR . 04/24/2021 12:00:00 AM [facility] Outpatient Referrer: Eulalia Muñiz MD 04/23/2021 12: 00:00 AM [facility] Outpatient Attender: Jermaine Freeman DO 04/23/2021 12:00:00 AM [facility] Outpatient [id number] 04/18/2021 12:00 :00 AM [facility] 04/18/2021 03:04:16 PM [facility] Outpatient Attender: Jermaine Freeman DO 04/18/2021 12:00:00 AM [facility] Outpatient Attender: ELIO VARGAS [id number] 04/12/2021 12:02:55 PM [facility] Outpatient Attender: Eulalia Galvan i MDAdmitter: Eulalia Muñiz MDReferrer: Eulalia Muñiz MD [id number] 04/09/2021 12:00:00 AM EST - 04/09/2021 02:53:00 PM EST Liver cell carcinoma [facility] Liver cell carcinoma Patient admitted. Outpatient Referrer: Eulalia Muñiz MD 04/09/2021 12: 00:00 AM [facility] Outpatient Referrer: Eulalia Muñiz MD 04/09/2021 12: 00:00 AM [facility] Outpatient Attender: MARC EDAttender : JENNIFER SALEEMLLReferrer: Eulalia BenitesA-COVID4 04/05/2021 12:00:00 AM EDT - 04/06/2021 12:00:00 AM T [facility] Outpatient [address] [address] 04/02/2021 12:00:00 AM EDT [facility] (Formerly [facility]) ( in Healthcare facility) Attender: INNA YANEZ MDAdmitter: ABIOLA YANEZ MDConsultant: KADE SYLVIA 03/30/2021 01:33:00 AM EDT [facility] Emergency Attender: ABIOLA BLOUNT I MDAttender: GARETH MONTANA MDAttender: ER PHYSICIAN 03/29/2021 10:43:15 PM EDT [facility] Outpatient Attender: ABIOLA BLOUNT I MDAttender: GARETH MONTANA MDAttender: ER PHYSICIANAdmitter: ABIOLA YANEZ MD 09:05:00 PM EDT - 03/31/2021 02:19:00 PM EDT RECURRENT OSTOMY BLEED, HX OF BLADDER CA, LIVER CA [facility] RECURRENT OSTOMY BLEED, HX OF BLADDER CA , LIVER CA Patient discharged. Outpatient Attender: Jermaine SCOTTA-ONCCACTR 03/28/20 12:00:00 AM EDT - 03/28/2021 03:07:13 PM T [facility] Outpatient Referrer: Jermaine Freeman DO 03/22/2021 12:00: 00 AM EDT Liver cell carcinoma [facility] Liver cell carcinoma Outpatient Attender: Krista Meneses/ [facility] 03/20 09:40:00 AM EDT [facility] ([facility] [place] [address] [address] 03/19/2021 12:00:00 AM EDT eCW1 ([facility]ly [facility]) Outpatient Attender: Eulalia Muñiz MD [id number] 03/15/2021 03:57:13 PM EDT [facility] Office Visit Attender: DENVER Meneses/ Asha.M.P. Urol ogy 03/12/2021 04:58:00 PM EDT [facility] ([facility]) Outpatient Attender: DENVER Meneses/ Asha.M.P. Urol ogy 03/11/2021 08:24:00 AM EDT [facility] ([facility]) Inpatient Attender: ELIZABETH WATERS MDAttender: ER PHYSICIAN 03/10/2021 02:21:00 PM EDT [facility] Inpatient Attender: ELIZABETH WATERS MDAttender: ER PHYSICIAN 03/10/2021 01:33:49 PM EDT [facility] [place] [facility] Inpatient Attender: ELIZABETH Andre tender: ER PHYSICIANAdmitter: ELIZABETH WATERS MD 03/10/2021 12:23:00 PM EDT - 03/12/2021 03:09:00 PM EDT BLEEDING STOMA [facility] BLEEDING STOMA Patient discharged. [place] [address] [address] 03/06/2021 12:00:00 AM EDT eCW1 ([facility]) [place] [address] [address] 03/05/2021 12:00:00 AM EDT eCW1 ([facility]) Outpatient [address] [address] 03/05/2021 12:00:00 AM EDT eCW1 ([facility]) Outpatient Attender: Eulalia Muñiz MD [id number] 03/04/2021 12:00:00 AM EDT - 03/04/2021 12:42:30 PM EDT [facility] Outpatient 03/04/2021 12:00:00 AM EDT new pt [facility] new pt Outpatient Attender: Jermaine Pete [id number] 02/29/20 12:00:00 AM EDT - 02/28/2021 12:20:04 PM EDT [facility] Unknown [address] [address] 02/20/2021 12:00:00 AM EDT eCW1 ([facility]) Outpatient Attender: IESHA CARLIN MD CMP Internal Med [facility] [place] 02/18/2021 02:13:00 AM EDT [facility] Outpatient Attender: IESHA CARLIN MD CMP Internal Med a [facility] [place] 02/17/2021 01:59:00 AM EDT [facility] ([facility]) Outpatient Attender: ER PHYSICIAN 02/16/2021 01:10:00 AM E DT [facility] Inpatient Attender: NIRALI Stroud donis: GARETH MONTANA MDAttender: ER PHYSICIANAdmitter: GARETH MONTANA MD 02/16/2021 12:28:09 AM EDT [facility] Inpatient Attender: NIRALI Stroud donis: GARETH MONTANA MDAttender: ER PHYSICIANAdmitter: NIRALI RANKIN MD 02/15/2021 10:55:00 P M EDT - 02/18/2021 10:51:00 AM EDT ACUTE BLOOD LOSS ANEMIA [facility] ACUTE BLOOD LOSS ANEMIA Patient discharged. [place] [address] [address] 02/15/2021 12:00:00 AM EDT eCW1 ([facility]) Outpatient Attender: MAR CASTANEDA MD [place]/ A.M.P. Urol ogy 02/14/2021 10:00:00 AM EDT [facility] ([facility] [place] Outpatient Admitter: Анна CHRISTIANSONeferrer: Анна Braun MD 02/12/2021 12:00:00 AM EDT Liver cell carcinoma [facility] Liver cell carcinoma Unknown [address] [address] 02/05/2021 12:00:00 AM EDT [facility] Inpatient Attender: ER PHYSICIAN 01/31/2021 12:56:00 AM E DT [facility] Inpatient Attender: ARNAUD PEREZ MDAttender: ER P HYSICIATIYA 01/31/2021 12:29:40 AM EDT [facility] [place] [facility] Inpatient Attender: ARNAUD HAAS MDAttender: ER PHYSICIANAdmitter: ARNAUD PEREZ MD 01/30/2021 10:55:00 PM EDT - 01/31/2021 11:15:00 AM EDT HEMATURIA [facility] HEMATURIA Patient discharged. Outpatient Attender: Kalia Meneses/ Leonardo sullivan 01/22/2021 11:00:00 AM EDT [facility] ([facility] [place] [address] [address] 01/22/2021 12:00:00 AM EDT [facility]CW1 [facility] [place] [address] [facility] [place] [address] 01/22/2021 12:00:00 AM EDT [facility]CW1 [facility] [place] [address] [address] 01/17/2021 12:00:00 AM EDT [facility]CW1 [facility] [place] [address] [address] 01/16/2021 12:00:00 AM EDT eCW1 ([facility] [place] [address] [facility] [place] [address] 01/09/2021 12:00:00 AM EDT eCW1 ([facility] [place] [address] [address] 01/08/2021 12:00:00 AM EDT [facility] [place] [address] [address] 01/01/2021 12:00:00 AM EDT [facility]CW1 [facility] [place] [address] [address] 12/25/2020 12:00:00 AM EDT [facility]CW1 ([facility] [place] [address] [address] 12/24/2020 12:00:00 AM EDT eCW1 ([facility]) Office Visit Attender: Tarah Meneses/ Leonardo sullivan 12/05/2020 10:30:00 AM EDT [facility] ([facility] [place] [address] [address] 11/29/2020 12:00:00 AM EDT [facility]CW1 ([facility] [place]patient [address] [address] 11/28/2020 12:00:00 AM EDT eCW1 ([facility]) 11/24/2020 01:00:00 AM EDT - 021 11:47:23 PM ED[facility] Inpatient Attender: LORENA RITTER MD 11/13/2020 12:03:14 PM EDT [facility] [place] [facility] Inpatient Attender: Krista Kitchen MDAdmitter: Krista Kitchen MD 11/13/2020 10:43:00 AM EDT - 11/22/2020 02:37:00 PM EDT 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 [place] ( in Healthcare facility) Attender: Krista Sesay MDAdmitter: Krista Kitchen MDConsultant: KADE WARD 11/13/2020 10:43:00 AM EDT [facility] Inpatient Attender: Krista Kitchen MD 11/13/2020 10:43:00 AM EDT [facility] Unknown [address] [address] 11/09/2020 12:00:00 AM EDT eCW1 ([facility]) Unknown [address] [address] 11/08/2020 12:00:00 AM EDT eCW1 ([facility]) Outpatient [address] [facility] [place] [address] 11/07/2020 12:00:00 AM EDT eCW1 ([facility]) Outpatient Attender: LORENA RITTER MD 11/06/2020 01:09:23 PM EDT [facility] [place] [facility] Outpatient Attender: Krista Kitchen MD 11/06/2020 11:56:00 A M EDT ROBOTIC XI ASSISTED LAPAROSCOPIC CYSTOPROSTATECTOMY ILEOCOND [facility] ROBOTIC XI ASSISTED LAPAROSCOPIC CYSTOPR OSTATECTOMY ILEOCOND Unknown [address] [facility] [place] [address] 09/11/2020 12:00:00 AM EDT eCW1 ([facility]) Outpatient Attender: Krista Youngida/ A.M.P. Urology 09/10 04:00:00 PM EDT [facility] ([facility] [place] Outpatient Attender: MAR Meneses/ A.M.P. Urol ogy 08/03/2020 01:30:00 PM EST [facility] ([facility]) Outpatient Attender: Kalia Saxena RPA [place]/ A.M.P. Urolo gy 07/20/2020 01:15:00 PM EST [facility] ([facility] Outpatient Attender: Kalia Youngida/ A.M.P. Urolo gy 05/30/2020 01:00:00 PM EST [facility] ([facility] Outpatient [address] [place] [address] 05/18/2020 12:00:00 AM EST eCW1 ([facility]) [place]patient [address] [place] [address] 05/11/2020 12:00:00 AM EST eCW1 ([facility]) Outpatient [address] [place] [address] 05/08/2020 12:00:00 AM EST eCW1 ([facility]) Outpatient Attender: Krista Meneses/ A.M.P. Urology 04/20 07:30:00 AM EST [facility] [place] [address] [place] [address] 03/27/2020 12:00:00 AM EDT eCW1 ([facility]) Outpatient Attender: MAR Meneses/ A.M.P. Urol ogy 03/22/2020 11:00:00 AM EDT [facility] ([facility] Outpatient Attender: Kalia Saxena RPA [place]/ A.M.P. Urolo gy 03/20/2020 03:00:00 PM EDT [facility] ([facility] Outpatient Attender: Kalia Saxena RPA [place]/ A.M.P. Urolo gy 03/16/2020 02:45:00 PM EDT [facility]) Outpatient Referrer: MAR CASTANEDA MD MOB-MOB.PAT 11:08:19 AM EDT - 02/26/2020 11:08:37 AM EDT [facility] SDC Attender: MAR CASTANEDA MD Admitter: MAR CASTANEDA MDReferrer: MAR CASTANEDA MD [facility] 01/19/2020 10:10:55 AM EDT - 03/02/2020 01:04:00 PM EDT Health system Patient discharged. Immunizations Vaccine Date Status Description Data Source(s) Pfizer #3 dose COVID-19 SARSCOV2 VAC 30MCG/0.3ML IM 03/14/20 06:15:00 AM EDT completed eCW1 ([facility]) COVID-19 VACC, MRNA(PFIZER)/PF 03/14/2021 12:00:00 AM EDT completed [facility] COVID-19 VACCINE Pfizer 03/14/2021 12:00:00 AM EDT completed [employer] Vaccine Series Complete: YESThis Data wa s Submitted to [facility] Via [employer]. IIV3. This is one of two codes replacing CVX 15, which is being retired. 02/26/2021 06:37:00 AM EDT completed eCW1 ([facility]ly [facility]) IIV3. This is one of two codes replacing CVX 15, which is being retired. 02/26/2021 06:37:00 AM EDT completed eCW1 ([facility]) IIV3. This is one of two codes replacing CVX 15, which is being retired. 02/26/2021 06:37:00 AM EDT completed eCW1 ([facility]) IIV3. This is one of two codes replacing CVX 15, which is being retired. 02/26/2021 06:37:00 AM EDT completed eCW1 ([facility]) IIV3. This is one of two codes replacing CVX 15, which is being retired. 02/26/2021 06:37:00 AM EDT completed eCW1 ([facility]) IIV3. This is one of two codes replacing CVX 15, which is being retired. 02/26/2021 06:37:00 AM EDT completed eCW1 ([facility]) COVID-19 dose #2 given elsewhere Unspecified 07/29/2020 06:0 7:00 AM EST completed eCW1 ([facility]) COVID-19 dose #2 given elsewhere Unspecified 07/29/2020 06:0 7:00 AM EST completed eCW1 ([facility]) COVID-19 dose #2 given elsewhere Unspecified 07/29/2020 06:0 7:00 AM EST completed eCW1 ([facility]) COVID-19 dose #2 given elsewhere Unspecified 07/29/2020 06:0 7:00 AM EST completed eCW1 ([facility]) COVID-19 dose #2 given elsewhere Unspecified 07/29/2020 06:0 7:00 AM EST completed eCW1 (Formerly [facility], [facility]) COVID-19 dose #2 given elsewhere Unspecified 07/29/2020 06:0 7:00 AM EST completed eCW1 (Formerly [facility], [facility]) COVID-19 dose #2 given elsewhere Unspecified 07/29/2020 06:0 7:00 AM EST completed eCW1 (Formerly [facility], [facility]) COVID-19 dose #2 given elsewhere Unspecified 07/29/2020 06:0 7:00 AM EST completed eCW1 (Formerly [facility], [facility]) COVID-19 dose #2 given elsewhere Unspecified 07/29/2020 06:0 7:00 AM EST completed eCW1 (Formerly [facility], [facility]) COVID-19 dose #2 given elsewhere Unspecified 07/29/2020 06:0 7:00 AM EST completed eCW1 (Formerly [facility], [facility]) COVID-19 dose #2 given elsewhere Unspecified 07/29/2020 06:0 7:00 AM EST completed eCW1 (Formerly [facility]) COVID-19 dose #2 given elsewhere Unspecified 07/29/2020 06:0 7:00 AM EST completed eCW1 (Formerly [facility]) COVID-19 dose #2 given elsewhere Unspecified 07/29/2020 06:0 7:00 AM EST completed eCW1 ([facility]ly [facility]) COVID-19 dose #2 given elsewhere Unspecified 07/29/2020 06:0 7:00 AM EST completed eCW1 ([facility]ly [facility]) COVID-19 dose #2 given elsewhere Unspecified 07/29/2020 06:0 7:00 AM EST completed eCW1 (Formerly [facility]) COVID-19 dose #2 given elsewhere Unspecified 07/29/2020 06:0 7:00 AM EST completed eCW1 ([facility]ly [facility]) COVID-19 dose #2 given elsewhere Unspecified 07/29/2020 06:0 7:00 AM EST completed eCW1 ([facility]ly [facility]) COVID-19 dose #2 given elsewhere Unspecified 07/29/2020 06:0 7:00 AM EST completed eCW1 ([facility]ly [facility]) COVID-19 dose #2 given elsewhere Unspecified 07/29/2020 06:0 7:00 AM EST completed eCW1 ([facility]ly [facility]) COVID-19 dose #2 given elsewhere Unspecified 07/29/2020 06:0 7:00 AM EST completed eCW1 ([facility]ly [facility]) COVID-19 dose #2 given elsewhere Unspecified 07/29/2020 06:0 7:00 AM EST completed eCW1 ([facility]ly [facility]) COVID-19 dose #2 given elsewhere Unspecified 07/29/2020 06:0 7:00 AM EST completed eCW1 ([facility]ly [facility]) COVID-19 (Pfizer), mRNA, LNP-S, PF, 30 mcg/0.3 mL dose 07/29/2020 12:00:00 AM EST completed [facility] COVID-19 VACCINE Pfizer 07/29/2020 12:00:00 AM EST completed [facility] Vaccine Series Complete: YESThis Data wa s Submitted to [facility] Via [email or web address]. Pfizer Covid-19 Sars-Cov-2, mRNA, LNP-S, PF, 30 mcg/ 0 .3 mL 07/28/2020 11:00:00 PM EST completed MEDENT ([facility]) COVID-19 dose #1 given elsewhere Unspecified 07/08/2020 06:0 7:00 AM EST completed eCW1 ([facility]ly [facility]) COVID-19 dose #1 given elsewhere Unspecified 07/08/2020 06:0 7:00 AM EST completed eCW1 ([facility]ly [facility]) COVID-19 dose #1 given elsewhere Unspecified 07/08/2020 06:0 7:00 AM EST completed eCW1 ([facility]) COVID-19 dose #1 given elsewhere Unspecified 07/08/2020 06:0 7:00 AM EST completed eCW1 ([facility]ly [facility]) COVID-19 dose #1 given elsewhere Unspecified 07/08/2020 06:0 7:00 AM EST completed eCW1 ([facility]ly [facility]) COVID-19 dose #1 given elsewhere Unspecified 07/08/2020 06:0 7:00 AM EST completed eCW1 ([facility]ly [facility]) COVID-19 dose #1 given elsewhere Unspecified 07/08/2020 06:0 7:00 AM EST completed eCW1 ([facility]ly [facility]) COVID-19 dose #1 given elsewhere Unspecified 07/08/2020 06:0 7:00 AM EST completed eCW1 ([facility]ly [facility]) COVID-19 dose #1 given elsewhere Unspecified 07/08/2020 06:0 7:00 AM EST completed eCW1 ([facility]) COVID-19 dose #1 given elsewhere Unspecified 07/08/2020 06:0 7:00 AM EST completed eCW1 ([facility]) COVID-19 dose #1 given elsewhere Unspecified 07/08/2020 06:0 7:00 AM EST completed eCW1 ([facility]) COVID-19 dose #1 given elsewhere Unspecified 07/08/2020 06:0 7:00 AM EST completed eCW1 ([facility]) COVID-19 dose #1 given elsewhere Unspecified 07/08/2020 06:0 7:00 AM EST completed eCW1 ([facility]) COVID-19 dose #1 given elsewhere Unspecified 07/08/2020 06:0 7:00 AM EST completed eCW1 ([facility]) COVID-19 dose #1 given elsewhere Unspecified 07/08/2020 06:0 7:00 AM EST completed eCW1 ([facility]) COVID-19 dose #1 given elsewhere Unspecified 07/08/2020 06:0 7:00 AM EST completed eCW1 ([facility]) COVID-19 dose #1 given elsewhere Unspecified 07/08/2020 06:0 7:00 AM EST completed eCW1 ([facility]) COVID-19 dose #1 given elsewhere Unspecified 07/08/2020 06:0 7:00 AM EST completed eCW1 ([facility]) COVID-19 dose #1 given elsewhere Unspecified 07/08/2020 06:0 7:00 AM EST completed eCW1 ([facility]) COVID-19 dose #1 given elsewhere Unspecified 07/08/2020 06:0 7:00 AM EST completed eCW1 ([facility]) COVID-19 dose #1 given elsewhere Unspecified 07/08/2020 06:0 7:00 AM EST completed eCW1 ([facility]) COVID-19 dose #1 given elsewhere Unspecified 07/08/2020 06:0 7:00 AM EST completed eCW1 ([facility]) COVID-19 (Pfizer), mRNA, LNP-S, PF, 30 mcg/0.3 mL dose 07/08/2020 12:00:00 AM EST completed [facility] COVID-19 VACCINE Pfizer 07/08/2020 12:00:00 AM EST completed [facility] Vaccine Series Complete: NOThis Data was Submitted to [facility] Via [employer]. Pfizer Covid-19 Sars-Cov-2, mRNA, LNP-S, PF, 30 mcg/ 0 .3 mL 07/07/2020 11:00:00 PM EST completed MEDENT ([facility]) IIV3. This is one of two codes replacing CVX 15, which is being retired. 03/08/2020 06:06:00 AM EDT completed eCW1 (Formerly [facility], [facility]) IIV3. This is one of two codes replacing CVX 15, which is being retired. 03/08/2020 06:06:00 AM EDT completed eCW1 (Formerly [facility], [facility]) IIV3. This is one of two codes replacing CVX 15, which is being retired. 03/08/2020 06:06:00 AM EDT completed eCW1 ([facility]ly [facility], [facility]) IIV3. This is one of two codes replacing CVX 15, which is being retired. 03/08/2020 06:06:00 AM EDT completed eCW1 ([facility]ly [facility], [facility]) IIV3. This is one of two codes replacing CVX 15, which is being retired. 03/08/2020 06:06:00 AM EDT completed eCW1 ([facility]ly [facility]) IIV3. This is one of two codes replacing CVX 15, which is being retired. 03/08/2020 06:06:00 AM EDT completed eCW1 ([facility]ly [facility]) IIV3. This is one of two codes replacing CVX 15, which is being retired. 03/08/2020 06:06:00 AM EDT completed eCW1 ([facility]ly [facility]) IIV3. This is one of two codes replacing CVX 15, which is being retired. 03/08/2020 06:06:00 AM EDT completed eCW1 ([facility]ly [facility]) IIV3. This is one of two codes replacing CVX 15, which is being retired. 03/08/2020 06:06:00 AM EDT completed eCW1 ([facility]) IIV3. This is one of two codes replacing CVX 15, which is being retired. 03/08/2020 06:06:00 AM EDT completed eCW1 ([facility]ly [facility]) IIV3. This is one of two codes replacing CVX 15, which is being retired. 03/08/2020 06:06:00 AM EDT completed eCW1 ([facility]ly [facility]) IIV3. This is one of two codes replacing CVX 15, which is being retired. 03/08/2020 06:06:00 AM EDT completed eCW1 ([facility]) IIV3. This is one of two codes replacing CVX 15, which is being retired. 03/08/2020 06:06:00 AM EDT completed eCW1 ([facility]ly [facility]) IIV3. This is one of two codes replacing CVX 15, which is being retired. 03/08/2020 06:06:00 AM EDT completed eCW1 ([facility]ly [facility]) IIV3. This is one of two codes replacing CVX 15, which is being retired. 03/08/2020 06:06:00 AM EDT completed eCW1 ([facility]ly [facility]) IIV3. This is one of two codes replacing CVX 15, which is being retired. 03/08/2020 06:06:00 AM EDT completed eCW1 ([facility]) IIV3. This is one of two codes replacing CVX 15, which is being retired. 03/08/2020 06:06:00 AM EDT completed eCW1 ([facility]) IIV3. This is one of two codes replacing CVX 15, which is being retired. 03/08/2020 06:06:00 AM EDT completed eCW1 ([facility]) IIV3. This is one of two codes replacing CVX 15, which is being retired. 03/08/2020 06:06:00 AM EDT completed eCW1 ([facility]) IIV3. This is one of two codes replacing CVX 15, which is being retired. 03/08/2020 06:06:00 AM EDT completed eCW1 ([facility]) IIV3. This is one of two codes replacing CVX 15, which is being retired. 03/08/2020 06:06:00 AM EDT completed eCW1 ([facility]) IIV3. This is one of two codes replacing CVX 15, which is being retired. 03/08/2020 06:06:00 AM EDT completed eCW1 ([facility]ly [facility]) INFLUENZA VIRUS VACCINE QUADRIVAL SPLIT 2019-(66 YR [...] active Abdomina l Binder/Elastic 3XL - eCW1 [facility] Abdominal Binder/Elastic 3XL - Abdominal Binder/Elastic 3XL - 03/05/2021 12:00:00 AM EDT active Abdomina l Binder/Elastic 3XL - eCW1 ([facility]) Abdominal Binder/Elastic 3XL - Abdominal Binder/Elastic 3XL - 03/05/2021 12:00:00 AM EDT active Abdomina l Binder/Elastic 3XL - eCW1 ([facility]) Abdominal Binder/Elastic 3XL - Abdominal Binder/Elastic 3XL - 03/05/2021 12:00:00 AM EDT active Abdomina l Binder/Elastic 3XL - eCW1 ([facility]) Abdominal Binder/Elastic 3XL - Abdominal Binder/Elastic 3XL - 03/05/2021 12:00:00 AM EDT active Abdomina l Binder/Elastic 3XL - eCW1 ([facility]) Abdominal Binder/Elastic 3XL - Abdominal Binder/Elastic 3XL - 03/05/2021 12:00:00 AM EDT active Abdomina l Binder/Elastic 3XL - eCW1 ([facility]) 4 mg 02/28/2021 12:00:00 AM EDT [...] HCl 01/08/2021 01:00:00 AM EDT completed NETSMART ([facility]) Hydroxyzine Hydrochloride 10 MG Oral Tablet hydrOXYzin e HCl 10 MG hydrOXYzine HCl 10 MG 01/08/2021 12:00:00 AM EDT 1.0 {tablet} ac tive hydrOXYzine HCl 10 MG eCW1 ([facility]) Hydroxyzine Hydrochloride 10 MG Oral Tablet hydrOXYzin e HCl 10 MG hydrOXYzine HCl 10 MG 01/08/2021 12:00:00 AM EDT 1.0 {tablet} ac tive hydrOXYzine HCl 10 MG eCW1 ([facility]) Hydroxyzine Hydrochloride 10 MG Oral Tablet hydrOXYzin e HCl 10 MG hydrOXYzine HCl 10 MG 01/08/2021 12:00:00 AM EDT 1.0 {tablet} ac tive hydrOXYzine HCl 10 MG eCW1 ([facility]) Hydroxyzine Hydrochloride 10 MG Oral Tablet hydrOXYzin e HCl 10 MG hydrOXYzine HCl 10 MG 01/08/2021 12:00:00 AM EDT 1.0 {tablet} ac tive hydrOXYzine HCl 10 MG eCW1 ([facility]) Hydroxyzine Hydrochloride 10 MG Oral Tablet hydrOXYzin e HCl 10 MG hydrOXYzine HCl 10 MG 01/08/2021 12:00:00 AM EDT 1.0 {tablet} ac tive hydrOXYzine HCl 10 MG eCW1 ([facility]) Hydroxyzine Hydrochloride 10 MG Oral Tablet hydrOXYzin e HCl 10 MG hydrOXYzine HCl 10 MG 01/08/2021 12:00:00 AM EDT 1.0 {tablet} ac tive hydrOXYzine HCl 10 MG eCW1 ([facility]) Hydroxyzine Hydrochloride 10 MG Oral Tablet hydrOXYzin e HCl 10 MG hydrOXYzine HCl 10 MG 01/08/2021 12:00:00 AM EDT 1.0 {tablet} ac tive hydrOXYzine HCl 10 MG eCW1 ([facility]) Hydroxyzine Hydrochloride 10 MG Oral Tablet hydrOXYzin e HCl 10 MG hydrOXYzine HCl 10 MG 01/08/2021 12:00:00 AM EDT 1.0 {tablet} ac tive hydrOXYzine HCl 10 MG eCW1 ([facility]) Hydroxyzine Hydrochloride 10 MG Oral Tablet hydrOXYzin e HCl 10 MG hydrOXYzine HCl 10 MG 01/08/2021 12:00:00 AM EDT 1.0 {tablet} ac tive hydrOXYzine HCl 10 MG eCW1 ([facility]) Hydroxyzine Hydrochloride 10 MG Oral Tablet hydrOXYzin e HCl 10 MG hydrOXYzine HCl 10 MG 01/08/2021 12:00:00 AM EDT 1.0 {tablet} ac tive hydrOXYzine HCl 10 MG eCW1 ([facility]) Hydroxyzine Hydrochloride 10 MG Oral Tablet hydrOXYzin e HCl 10 MG hydrOXYzine HCl 10 MG 01/08/2021 12:00:00 AM EDT 1.0 {tablet} ac tive hydrOXYzine HCl 10 MG eCW1 ([facility]) Hydroxyzine Hydrochloride 10 MG Oral Tablet hydrOXYzin e HCl 10 MG hydrOXYzine HCl 10 MG 01/08/2021 12:00:00 AM EDT 1.0 {tablet} ac tive hydrOXYzine HCl 10 MG eCW1 ([facility]) Hydroxyzine Hydrochloride 10 MG Oral Tablet hydrOXYzin e HCl 10 MG hydrOXYzine HCl 10 MG 01/08/2021 12:00:00 AM EDT 1.0 {tablet} ac tive hydrOXYzine HCl 10 MG eCW1 ([facility]) Hydroxyzine Hydrochloride 10 MG Oral Tablet hydrOXYzin e HCl 10 MG hydrOXYzine HCl 10 MG 01/08/2021 12:00:00 AM EDT 1.0 {tablet} ac tive hydrOXYzine HCl 10 MG eCW1 ([facility]) Hydroxyzine Hydrochloride 10 MG Oral Tablet hydrOXYzin e HCl 10 MG hydrOXYzine HCl 10 MG 01/08/2021 12:00:00 AM EDT 1.0 {tablet} ac tive hydrOXYzine HCl 10 MG eCW1 ([facility]) Losartan Potassium 100 MG Losartan Potassium 01/07/2021 01:00:00 AM EDT completed NETSMART ([facility]) Spironolactone 25 MG Spironolactone 01/07/2021 01:00:00 AM EDT completed NETSMART ([facility]) 20 mg 01/02/2021 12:00:00 AM [...] {tablet} active Spironolact one 25 MG eCW1 ([facility]) Spironolactone 25 MG Oral Tablet Spironolactone 25 MG 2020 12:00:00 AM EDT 1.0 {tablet} active Spironolact one 25 MG eCW1 ([facility]) Losartan Potassium 50 MG Oral Tablet Losartan Potassium 50 M G 01/01/2021 12:00:00 AM EDT active Losartan Potassium 50 MG eCW1 ([facility]) Spironolactone 25 MG Oral Tablet Spironolactone 25 MG 2020 12:00:00 AM EDT 1.0 {tablet} active Spironolact one 25 MG eCW1 ([facility]) Spironolactone 25 MG Oral Tablet Spironolactone 25 MG 2020 12:00:00 AM EDT 1.0 {tablet} active Spironolact one 25 MG eCW1 ([facility]) Losartan Potassium 100 MG Oral Tablet Losartan Potassium 100 MG 01/01/2021 12:00:00 AM EDT 1.0 {tablet} active Lo sartan Potassium 100 MG eCW1 ([facility]) Losartan Potassium 100 MG Oral Tablet Losartan Potassium 100 MG 01/01/2021 12:00:00 AM EDT 1.0 {tablet} active Lo sartan Potassium 100 MG eCW1 ([facility]) Spironolactone 25 MG Oral Tablet Spironolactone 25 MG 2020 12:00:00 AM EDT 1.0 {tablet} active Spironolact one 25 MG eCW1 ([facility]) Spironolactone 25 MG Oral Tablet Spironolactone 25 MG 2020 12:00:00 AM EDT 1.0 {tablet} active Spironolact one 25 MG eCW1 ([facility]) Spironolactone 25 MG Oral Tablet Spironolactone 25 MG 2020 12:00:00 AM EDT 1.0 {tablet} active Spironolact one 25 MG eCW1 ([facility]) Losartan Potassium 100 MG Oral Tablet Losartan Potassium 100 MG 01/01/2021 12:00:00 AM EDT 1.0 {tablet} active Lo sartan Potassium 100 MG eCW1 ([facility]) Losartan Potassium 100 MG Oral Tablet Losartan Potassium 100 MG 01/01/2021 12:00:00 AM EDT 1.0 {tablet} active Lo sartan Potassium 100 MG eCW1 ([facility]) Losartan Potassium 100 MG Oral Tablet Losartan Potassium 100 MG 01/01/2021 12:00:00 AM EDT 1.0 {tablet} active Lo sartan Potassium 100 MG eCW1 ([facility]) Losartan Potassium 100 MG Oral Tablet Losartan Potassium 100 MG 01/01/2021 12:00:00 AM EDT 1.0 {tablet} active Lo sartan Potassium 100 MG eCW1 ([facility]) Losartan Potassium 100 MG Oral Tablet Losartan Potassium 100 MG 01/01/2021 12:00:00 AM EDT 1.0 {tablet} active Lo sartan Potassium 100 MG eCW1 ([facility]) Losartan Potassium 100 MG Oral Tablet Losartan Potassium 100 MG 01/01/2021 12:00:00 AM EDT 1.0 {tablet} active Lo sartan Potassium 100 MG eCW1 ([facility]) Spironolactone 25 MG Oral Tablet Spironolactone 25 MG 2020 12:00:00 AM EDT 1.0 {tablet} active Spironolact one 25 MG eCW1 ([facility]) Losartan Potassium 100 MG Oral Tablet Losartan Potassium 100 MG 01/01/2021 12:00:00 AM EDT 1.0 {tablet} active Lo sartan Potassium 100 MG eCW1 ([facility]) Losartan Potassium 100 MG Oral Tablet Losartan Potassium 100 MG 01/01/2021 12:00:00 AM EDT 1.0 {tablet} active Lo sartan Potassium 100 MG eCW1 ([facility]) Spironolactone 25 MG Oral Tablet Spironolactone 25 MG 2020 12:00:00 AM EDT 1.0 {tablet} active Spironolact one 25 MG eCW1 ([facility]) Spironolactone 25 MG Oral Tablet Spironolactone 25 MG 2020 12:00:00 AM EDT 1.0 {tablet} active Spironolact one 25 MG eCW1 ([facility]) Losartan Potassium 100 MG Oral Tablet Losartan Potassium 100 MG 01/01/2021 12:00:00 AM EDT 1.0 {tablet} active Lo sartan Potassium 100 MG eCW1 ([facility]) Losartan Potassium 100 MG Oral Tablet Losartan Potassium 100 MG 01/01/2021 12:00:00 AM EDT 1.0 {tablet} active Lo sartan Potassium 100 MG eCW1 ([facility]) Losartan Potassium 100 MG Oral Tablet Losartan Potassium 100 MG 01/01/2021 12:00:00 AM EDT 1.0 {tablet} active Lo sartan Potassium 100 MG eCW1 ([facility]) Spironolactone 25 MG Oral Tablet Spironolactone 25 MG 2020 12:00:00 AM EDT 1.0 {tablet} active Spironolact one 25 MG eCW1 ([facility]) Losartan Potassium 100 MG Oral Tablet Losartan Potassium 100 MG 01/01/2021 12:00:00 AM EDT 1.0 {tablet} active Lo sartan Potassium 100 MG eCW1 ([facility]) Spironolactone 25 MG Oral Tablet Spironolactone 25 MG 2020 12:00:00 AM EDT 1.0 {tablet} active Spironolact one 25 MG eCW1 ([facility]) Spironolactone 25 MG Oral Tablet Spironolactone 25 MG 2020 12:00:00 AM EDT 1.0 {tablet} active Spironolact one 25 MG eCW1 ([facility]) Spironolactone 25 MG Oral Tablet Spironolactone 25 MG 2020 12:00:00 AM EDT 1.0 {tablet} active Spironolact one 25 MG eCW1 ([facility]) Spironolactone 25 MG Oral Tablet Spironolactone 25 MG 2020 12:00:00 AM EDT 1.0 {tablet} active Spironolact one 25 MG eCW1 ([facility]) Colace 100 MG Colace 12/31/2020 01:00:00 AM EDT co mpleted NETSMART ([facility]) Potassium Chloride Potassium Chloride 12/31/2020 01:00:00 AM EDT 15.0 {mEq} completed NETSMART ([facility]) 15 mEq 12/25/2020 12:00:00 AM EDT tablet,ER particles/cry stals 10 TAKE ONE TABLET BY MOUTH EVERY DAY DIRECTED TAKE ONE TABLET BY MOUTH EVERY DAY DIRECTED SOLD: 12/25/2020 Vu Yancey s Lasix 20 MG Lasix 12/24/2020 01:00:00 AM EDT compl eted NETSMART ([facility]) Furosemide 20 MG Oral Tablet [Lasix] Lasix 20 MG Lasix 20 MG 12/24/2020 12:00:00 AM EDT 1.0 {tablet} active Lasix 20 M G eCW1 ([facility]) Furosemide 40 MG Oral Tablet [Lasix] Lasix 40 MG Lasix 40 MG 12/24/2020 12:00:00 AM EDT 1.0 {tablet} active Lasix 40 M G eCW1 ([facility]) Furosemide 40 MG Oral Tablet [Lasix] Lasix 40 MG Lasix 40 MG 12/24/2020 12:00:00 AM EDT 1.0 {tablet} active Lasix 40 M G eCW1 ([facility]) Furosemide 20 MG Oral Tablet [Lasix] Lasix 20 MG Lasix 20 MG 12/24/2020 12:00:00 AM EDT 1.0 {tablet} active Lasix 20 M G eCW1 ([facility]) Furosemide 20 MG Oral Tablet [Lasix] Lasix 20 MG Lasix 20 MG 12/24/2020 12:00:00 AM EDT 1.0 {tablet} active Lasix 20 M G eCW1 ([facility]) Furosemide 20 MG Oral Tablet [Lasix] Lasix 20 MG Lasix 20 MG 12/24/2020 12:00:00 AM EDT 1.0 {tablet} active Lasix 20 M G eCW1 ([facility]) Furosemide 20 MG Oral Tablet [Lasix] Lasix 20 MG Lasix 20 MG 12/24/2020 12:00:00 AM EDT 1.0 {tablet} active Lasix 20 M G eCW1 ([facility]) Furosemide 40 MG Oral Tablet [Lasix] Lasix 40 MG Lasix 40 MG 12/24/2020 12:00:00 AM EDT 1.0 {tablet} active Lasix 40 M G eCW1 ([facility]) Furosemide 20 MG Oral Tablet [Lasix] Lasix 20 MG Lasix 20 MG 12/24/2020 12:00:00 AM EDT 1.0 {tablet} active Lasix 20 M G eCW1 ([facility]) Furosemide 20 MG Oral Tablet [Lasix] Lasix 20 MG Lasix 20 MG 12/24/2020 12:00:00 AM EDT 1.0 {tablet} active Lasix 20 M G eCW1 ([facility]) Furosemide 40 MG Oral Tablet [Lasix] Lasix 40 MG Lasix 40 MG 12/24/2020 12:00:00 AM EDT 1.0 {tablet} active Lasix 40 M G eCW1 ([facility]) Furosemide 20 MG Oral Tablet [Lasix] Lasix 20 MG Lasix 20 MG 12/24/2020 12:00:00 AM EDT 1.0 {tablet} active Lasix 20 M G eCW1 ([facility]) Potassium Chloride CR 15 MEQ UNK 12/24/2020 12:00:00 AM EDT active Potassium Chloride CR 15 MEQ eCW1 ([facility]) Furosemide 40 MG Oral Tablet [Lasix] Lasix 40 MG Lasix 40 MG 12/24/2020 12:00:00 AM EDT 1.0 {tablet} active Lasix 40 M G eCW1 ([facility]) Potassium Chloride CR 15 MEQ UNK 12/24/2020 12:00:00 AM EDT active Potassium Chloride CR 15 MEQ eCW1 ([facility]) Furosemide 20 MG Oral Tablet [Lasix] Lasix 20 MG Lasix 20 MG 12/24/2020 12:00:00 AM EDT 1.0 {tablet} active Lasix 20 M G eCW1 ([facility]) Furosemide 20 MG Oral Tablet [Lasix] Lasix 20 MG Lasix 20 MG 12/24/2020 12:00:00 AM EDT 1.0 {tablet} active Lasix 20 M G eCW1 ([facility]) Furosemide 20 MG Oral Tablet [Lasix] Lasix 20 MG Lasix 20 MG 12/24/2020 12:00:00 AM EDT 1.0 {tablet} active Lasix 20 M G eCW1 ([facility]) Furosemide 40 MG Oral Tablet [Lasix] Lasix 40 MG Lasix 40 MG 12/24/2020 12:00:00 AM EDT 1.0 {tablet} active Lasix 40 M G eCW1 ([facility]) 20 mg 12/24/2020 12:00:00 AM EDT [...] 12:00:00 AM EDT ORAL completed MEDENT ([facility]) Melatonin 10 MG Melatonin 11/30/2020 01:00:00 AM EDT completed NETSMERCEDT ([facility]) Ferrous Sulfate 325 (65 Fe) MG Ferrous Sulfate 11/30/2020 01:00:00 AM EDT completed NETSMART ([facility]) Lidocaine Pain Relieving 4 % Lidocaine Pain Relieving 2020 01:00:00 AM EDT completed NETSMAR T ([facility]) MetFORMIN HCl ER (MOD) 500 MG MetFORMIN HCl ER (MOD) 11/30/2020 01:00:00 AM EDT 2.0 {tablet} completed N ETSMART ([facility]) Lidocaine 0.05 MG/MG Topical Ointment LIDOCAINE 11/29/2020 [...] AM E DT 1.0 {tablet} completed NETSMART ([facility]) Ferrous Sulfate 324 MG Ferrous Sulfate 11/24/2020 01:00:00 AM EDT 1.0 {tablet} completed NETSMART ([facility]) FreeStyle Gravity Lite w/Device FreeStyle Gravity Lite 11/24 01:00:00 AM EDT completed NETSMAR T ([facility]) Lancets 28 G Lancets 28 G 11/24/2020 01:00:00 AM EDT completed NETSMART ([facility]) Losartan Potassium-HCTZ 100-12.5 MG Losartan Potassium-HCTZ 11/24/2020 01:00:00 AM EDT 1.0 {tablet} completed N ETSMART ([facility]) Colace 100 MG Colace 11/24/2020 01:00:00 AM EDT 1.0 {tablet} completed NETSMART ([facility]) MetFORMIN HCl 500 MG MetFORMIN HCl 11/24/2020 01:00:00 AM EDT 1.0 {tablet} completed NETSMART ([facility]) Tylenol Extra Strength 500 MG Tylenol Extra Strength 11/24/2020 01:00:00 AM EDT 0 {tablet} completed NET SMART ([facility]) Tylenol PM Tylenol PM 11/24/2020 01:00:00 AM EDT 1.0 {tablet} completed NETSMART ([facility]) Ciprofloxacin 750 MG Oral Tablet Ciprofloxacin HCl 750 MG Ciprofloxacin HCl 750 MG 11/22/2020 12:00:00 AM EDT 1.0 {tablet} activ e Ciprofloxacin HCl 750 MG [facility] 750 mg 11/22/2020 12:00:00 AM EDT tablet 20 TAKE ONE TABLET BY MOUTH EVERY 12 HOURS TAKE ONE TABLET BY MOUTH EVERY 12 HOURS SOLD: 11/22/2020 [facility] BLOOD-GLUCOSE METER 2020 12:00:00 AM EDT kit [...] 07/20/2020 12:00:00 AM EST completed MEDENT ([facility]) 250 mg 06/04/2020 12:00:00 AM EST tablet 14 TAKE ONE TABLET BY MOUTH TWICE A DAY FOR 7 DAYS TAKE ONE TABLET BY MOUTH TWICE A DAY FOR 7 DAYS SOLD: 06/04/2020 [facility] Ciprofloxacin 250 MG Oral Tablet [Cipro] Cipro 06/04/2020 12:00: 00 AM EST ORAL completed MEDENT ([facility] 24 HR Metformin hydrochloride 500 MG Extended [...] 12:00:00 AM EDT ORAL completed [facility] ([facility]) 250 mg 02/24/2020 12:00:00 AM EDT tablet 10 TAKE ONE TABLET BY MOUTH TWICE A DAY FOR 5 DAYS START 3 DAYS PRIOR TO PROCEDURE TAKE ONE TABLET BY MOUTH TWICE A DAY FOR 5 DAYS START 3 DAYS PRIOR TO PROCEDURE SOLD: 02/26/2020 [facility] Ciprofloxacin 250 MG Oral Tablet Ciprofloxacin HCL 02/24/2020 12:00 :00 AM EDT ORAL completed [facility] ([facility]) NITROFURANTOIN, MACROCRYSTALS 25 MG / Ni trofurantoin, Monohydrate 75 MG Oral Capsule Nitrofurantoin Monohyd Macro 02/23/2020 12:00:00 AM EDT ORAL completed [facility] ([facility]) 100 mg 02/23/2020 12:00:00 AM EDT capsule [...] ONCE DAILY WITH EVENING MEAL SOLD: 03/14/2020 [facility] Hydrochlorothiazide 12.5 MG Oral Tablet HYDROCHLOROTHIAZIDE 06/24/2019 12:00:00 AM EST tablet 90 TAKE ONE TABLET BY MOUTH STAS DAY TAKE ONE TABLET BY MOUTH EVERY DAY SOLD: 03/14/2020 [facility] Insurance Providers Payer name Policy type / Coverage type Policy ID Covered democrat ID Covered democrat's relationship to chand Policy Chand Plan Information Medicare Medicare Primary [id number] Self [id number] Medicare Medicare Primary [id number] Self [id number] Medicare Medicare Primary [id number] Self [id number] Medicare Medicare Primary [id number] Self [id number] Medicare Medicare Primary [id number] Self MEDICARE [id number] xxxxxxxxxxx [id number] Medicare Medicare Primary [id number] Self [id number] MEDICARE A [id number] Self [id number] Medicare Medicare Primary [id number] Self [id number] MEDICARE [id number] Janna [id number] U75 [id number] Medicare Medicare Primary [id number] Self [id number] Medicare Medicare Primary [id number] Self [id number] [facility] [id number] SP [id number] [facility] [id number] SP [id number] EXCELL[employer] BCBS [id number] Janna YLS [id number] [employer] BCBS [id number] xxxxxxxxxxxx [id number] INSURANCE COVID-19 COVID Janna C OVID INSURANCE COVID-19 [id number] xxxxx [id number] [facility] U [id number] Self [id number] ANSI-Commercial [id number] ANSI-Medicare Part B [id number] [place] [facility] [id number] [facility] [place] Medigap Part B [id number] Self Medicare [facility] Medicare Primary [id number] Self [place] Plan [facility] Medigap Part B [id number] Self EMPIRE BLUE CROSS BLUE SHIELD -O/P [id number] MEDICARE -O/P [id number] 18 [id number] [employer]OSS BLUE SHIELD -O/P [id number] 18 [id number] MEDICARE -O/P [id number] 18 [id number] [facility] [id number] SP [id number] BCBS EMPIRE ARASH DIV [id number] SP [id number] MEDICARE [id number] SP [id number] EXCELLUS BLUE CROSS BLUE SHIELD HEA [id number] S [id number] MEDICARE MCA [id number] S [id number] MEDICARE MCA [id number] S [id number] [facility] [id number] 89 [id number] BCBS [place] ARASH DIV [id number] [place] Plan Medigap Part B [id number] [facility] [id number] ANSI-Commercial [id number] ANSI-Medicare Part B [id number] ANSI-Medicare Part B [id number] ANSI-Commercial [id number] ANSI-Commercial [id number] ANSI-Medicare Part B [id number] MEDICARE [id number] A ANSI-Medicare Part B [id number] ANSI-Commercial [id number] ANSI-Medicare Part B [id number] ANSI-Commercial [id number] Problems, Conditions, and Diagnoses Code Display Name Description Problem Type Effective Dates Data Source(s) fol fol Diagnosis 04/18/2021 12:15:26 PM ES [facility] C22.0 Liver cell carcinoma Liver cell carcinoma Diagnosis 04/09/2021 12:00:00 AM [facility] new pt new pt Diagnosis 03/04/2021 12:00:00 AM ED [facility] N21.0 Calculus in bladder Calculus in bladder Diagnosis 1 08:25:00 AM EDT [facility] N32.81 Overactive bladder Overactive bladder Diagnosis 07/2019 08:25:00 AM EDT Health system J98.8 Other specified respiratory disorders Ot her specified respiratory disorders Diagnosis 02/26/2020 11:08:19 AM EDT Health system U07.1 COVID-19 COVID-19 Diagnosis 02/26/2020 11:08:19 AM ED T [facility] system C22.0 Primary malignant neoplasm of liver Primary valeri gnant neoplasm of liver Problem 03/20/2021 12:00:00 AM EDT [facility] ([facility]) K92.2 Gastrointestinal hemorrhage Gastrointestinal hemorrhag e Problem 03/20/2021 12:00:00 AM EDT [facility] ([facility]) K74.4 [id number] Secondary biliary cirrhosis Problem 03/05/20 12:00:00 AM EDT [facility] C22.0 [id number] Hepatocellular carcinoma Problem 02/15/2021 12:00:00 AM EDT [facility]CW1 [facility]) R16.0 [id number] Liver mass, right lobe Problem 01/17/2021 12 :00:00 AM EDT eCW1 [facility]) R18.8 [id number] Other ascites Problem 01/17/2021 12:00:00 AM EDT eCW1 [facility]) K76.0 [id number] Fatty liver Problem 01/01/2021 12:00:00 AM E DT eCW1 ([facility]) D64.9 [id number] Chronic anemia Problem 11/28/2020 12:00:00 A M EDT eCW1 ([facility]) C61 Malignant neoplasm of prostate Malignant neoplasm of p rostate Problem 11/24/2020 01:00:00 AM EDT NETSMART ([facility] ) 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 Malignant neoplasm of ur ethra Problem 11/24/2020 01:00:00 AM EDT NETSMART ([facility] ) E11.9 Type 2 diabetes mellitus without complic ations Type 2 diabetes mellitus without complications Problem 11/24/2020 01:00:00 AM EDT NETSMART ([facility]) I10 Essential (primary) hypertension Essential (primary) h ypertension Problem 11/24/2020 01:00:00 AM EDT NETSMART ([facility] ) R78.81 Bacteremia Bacteremia Problem 11/24/2020 01:00:00 AM ED T NETSMART ([facility]) 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 Pseudomonas (aeruginosa) (mallei) (pseud omallei) as the cause of diseases classified elsewhere Problem 11/24/2020 01:00:00 A M EDT NETSMART ([facility]) K74.60 Unspecified cirrhosis of liver Unspecified cirrhosis o f liver Problem 11/24/2020 01:00:00 AM EDT NETSMART ([facility] ) D69.6 Thrombocytopenia, unspecified Thrombocytopenia, unspec ified Problem 11/24/2020 01:00:00 AM EDT NETSMART ([facility] ) Z46.6 Encounter for fitting and adjustment of urinary device Encounter for fitting and adjustment of urinary device Problem 11/24/2020 01:00:00 AM EDT NETSMART ([facility]) Z43.6 Encounter for attention to other artific ial openings of urinary tract Encounter for attention to other artificial openings of urinary tract Problem 11/24/2020 01:00:00 AM EDT NETSMART ([facility] ) Z79.84 [facility] (current) use of oral hypoglyc emic drugs [facility] (current) use of oral hypoglycemic drugs Problem 11/24/2020 01:00:00 AM EDT NE DOTTYMERCEDT ([facility]) Z90.89 Acquired absence of other organs Acquired absenc e of other organs Problem 11/24/2020 01:00:00 AM EDT NETSMART ([facility]) Z90.79 Acquired absence of other genital organ( s) Acquired absence of other genital organ(s) Problem 11/24/2020 01:00:00 AM EDT NETSMART ([facility]) Z90.6 Acquired absence of other parts of urina ry tract Acquired absence of other parts of urinary tract Problem 11/24/2020 01:00:00 AM EDT NETSMART ([facility]) 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 Problem 11/24/2020 01:00:00 AM EDT NETSMART ([facility]) 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 Prob donita 04/20/2020 12:00:00 AM EST [facility] ([facility]) N32.81 Overactive bladder Overactive bladder Problem 0 12:00:00 AM EDT [facility] ([facility]) Surgeries/Procedures Procedure Description Date Indications Data Source(s) OFFICE OUTPATIENT VISIT 15 MINUTES 03/20/2021 12:00:00 AM EDT [facility] ([facility]) HOSPITAL DISCHARGE DAY MANAGEMENT > 30 MIN 03/12/2021 12:00:00 AM EDT [facility] ([facility]) [facility]/DAY 35 MINUTES 03/11/2021 12:00:00 AM EDT [facility] ([facility]) [facility]/DAY 15 MINUTES 02/18/2021 12:00:00 AM EDT MED[facility] ([facility]) [facility]/DAY 25 MINUTES 02/17/2021 12:00:00 AM EDT MEDENT ([facility]) Electrocardiogram Interpretation & Report Only 021 12:00:00 AM EDT MEDENT ([facility]) OFFICE OUTPATIENT VISIT 15 MINUTES 02/14/2021 12:00:00 AM EDT MED[facility] ([facility]) OFFICE OUTPATIENT VISIT 15 MINUTES 01/22/2021 12:00:00 AM EDT MED[facility] ([facility]) Electrocardiogram Interpretation & Report Only 12:00:00 AM EDT MEDENT ([facility]) APPENDECTOMY 11/13/2020 12:00:00 AM EDT M EDENT ([facility]) Cystectomy, And Ileal Loop 11/13/2020 12:00:00 AM EDT [facility] ([facility]) ECG ROUTINE ECG W/LEAST 12 LDS W/I&R 11/07/2020 12:00: 00 AM EDT [facility] INSJ TEMP NDWELLG BLADDER CATHETER SIMPLE 09/25/2020 1 2:00:00 AM EDT [facility] ([facility]) OFFICE OUTPATIENT VISIT 40 MINUTES 09/10/2020 12:00:00 AM EDT [facility] ([facility]) INSJ TEMP NDWELLG BLADDER CATHETER SIMPLE 08/22/2020 1 2:00:00 AM EDT [facility] ([facility]) CYSTOURETHROSCOPY 08/03/2020 12:00:00 AM EST [facility] ([facility]) OFFICE OUTPATIENT VISIT 10 MINUTES 08/03/2020 12:00:00 AM EST [facility] ([facility]) Sars-Cov-2 (Covid-19) vaccine,Pfizer, LNP-S, PF, 30 mcg/ 0.3 mL 07/29/2020 12:00:00 AM EST [facility] ([facility] OFFICE OUTPATIENT VISIT 25 MINUTES 07/20/2020 12:00:00 AM EST [facility] ([facility]) Sars-Cov-2 (Covid-19) vaccine,Pfizer, LNP-S, PF, 30 mcg/ 0.3 mL 07/08/2020 12:00:00 AM EST [facility] ([facility]) INSJ TEMP NDWELLG BLADDER CATHETER SIMPLE 06/21/2020 1 2:00:00 AM EST [facility] ([facility]) US RETROPERITONEAL REAL TIME W/IMAGE LIMITED 0 12:00:00 AM EST [facility] ([facility]) US RETROPERITONEAL REAL TIME W/IMAGE LIMITED 0 12:00:00 AM EST [facility] ([facility]) OFFICE OUTPATIENT VISIT 25 MINUTES 05/30/2020 12:00:00 AM EST [facility] ([facility]) INSJ TEMP NDWELLG BLADDER CATHETER SIMPLE 05/22/2020 1 2:00:00 AM EST [facility] ([facility]) INSJ TEMP NDWELLG BLADDER CATHETER SIMPLE 04/20/2020 1 2:00:00 AM EST [facility] ([facility]) INSJ TEMP NDWELLG BLADDER CATHETER SIMPLE 03/22/2020 1 2:00:00 AM EDT [facility] ([facility]) CARLENE POST-VOIDING RESIDUAL URINE&/BLDR CAP 03/22/2020 12:00:00 AM EDT [facility] ([facility]) CARLENE POST-VOIDING RESIDUAL URINE&/BLDR CAP 03/20/2020 12:00:00 AM EDT [facility] ([facility]) CARLENE POST-VOIDING RESIDUAL URINE&/BLDR CAP 03/16/2020 12:00:00 AM EDT [facility] ([facility]) Cystourethroscopy,/W Injects For Chemodenervation Of The Geoff dder 03/02/2020 12:00:00 AM EDT [facility] ([facility]) History & Physical 02/24/2020 12:00:00 AM EDT [facility] ([facility]) Results ID Date Data Source [id number] 04/19/2021 04:32:48 PM EST [facility] Name Value Range Interpretation Code Description Data Ema rce(s) Supporting Document(s) Progress Note [facility] [id number] lbm [file] [id number]== ID Date Data Source [id number] 04/18/2021 12:14:32 PM [facility] Name Value Range Interpretation Code Description Data Ema rce(s) Supporting Document(s) Leukocytes [#/volume] in Blood by Automated count 4.4 10*3/uL 4-10 [facility] Erythrocytes [#/volume] in Blood by Automated count 3.04 10*6/uL 4.6- 6.1 L [facility] Hemoglobin [Mass/volume] in Blood 8.3 g/dL 13.5-18 L [facility] Hematocrit [Volume Fraction] of Blood by Automated count 25.4 % 4 1-53 L [facility] Erythrocyte mean corpuscular volume [Entitic volume] by Auto mated count 83.6 fL 80-96 [facility] Erythrocyte mean corpuscular hemoglobin [Entitic mass] by Automated count 27.3 pg 27-33 [facility] Erythrocyte mean corpuscular hemoglobin concentration [Mass/volume] by Automated count 32.6 g/dL [facility].0-[facility].0 [facility] distribution width [Ratio] by Automated count 16.4 % 11.5-14.5 H [facility] Platelets [#/volume] in Blood by Automated count 192 10*3/uL 150-400 [facility] Differential cell count method - Blood [facility] Neutrophils/100 leukocytes in Blood by Automated count 71 % [facility] Lymphocytes/100 leukocytes in Blood by Automated count 7 % [facility] Monocytes/100 leukocytes in Blood by Automated count 11 % [facility] Eosinophils/100 leukocytes in Blood by Automated count 9 % [facility] Basophils/100 leukocytes in Blood by Automated count 2 % [facility] Neutrophils [#/volume] in Blood by Automated count 3.16 10*3/uL 1.8-7 .0 [facility] Lymphocytes [#/volume] in Blood by Automated count 0.30 10*3/uL 1.2-4 .0 L [facility] Monocytes [#/volume] in Blood by Automated count 0.47 10*3/uL 0-0.8 [facility] Eosinophils [#/volume] in Blood by Automated count 0.39 10*3/uL 0-0.5 [facility] Basophils [#/volume] in Blood by Automated count 0.06 10*3/uL 0-0.2 [facility] Nucleated erythrocytes/100 leukocytes [Ratio] in Blood by Automated count 0 /100{WBCs} 0-0 [facility] ID Date Data Source [id number] 04/18/2021 12:24:00 PM [facility] Name Value Range Interpretation Code Description Data Ema rce(s) Supporting Document(s) Prothrombin time (PT) 13.8 s 11.6-14.0 [facility] INR in Platelet poor plasma by Coagulation assay 1.11 [facility] Routine intensity oral anticoagulation I NR is typically 2.0-3.0. Target INR must be clinically individualized. ID Date Data Source [id number] 04/18/2021 12:24:00 PM [facility] Value Range Interpretation Code Description Data Ema rce(s) Supporting Document(s) aPTT in Platelet poor plasma by Coagulation assay 31.0 s 24.0-33. 0 [facility] ID Date Data Source [id number] 04/18/2021 12:52:55 PM [facility] Value Range Interpretation Code Description Data Ema rce(s) Supporting Document(s) Albumin [Mass/volume] in Serum or Plasma by Bromocresol green (BCG) dye binding method 3.2 g/dL 3.5-5.2 L [facility] Bilirubin.total [Mass/volume] in Serum or Plasma 0.5 mg/dL <1.2 [facility] Calcium [Mass/volume] in Serum or Plasma 10.7 mg/dL 8.8-10.2 H [facility] Chloride [Moles/volume] in Serum or Plasma 101 mmol/L 98-107 [facility] Creatinine [Mass/volume] in Serum or Plasma 1.47 mg/dL 0.70-1.20 H [facility] Glucose [Mass/volume] in Serum or Plasma 175 mg/dL 70-140 H [facility] Alkaline phosphatase [Enzymatic activity/volume] in Serum or Plasma 182 U/L 40-129 [facility] Potassium [Moles/volume] in Serum or Plasma 4.9 mmol/L 3.4-5.1 [facility] Protein [Mass/volume] in Serum or Plasma 6.9 g/dL 6.4-8.3 [facility] Sodium [Moles/volume] in Serum or Plasma 131 mmol/L 136-145 L [facility] Aspartate aminotransferase [Enzymatic activity/volume] in Serum or Plasma 92 U/L <40 [facility] Urea nitrogen [Mass/volume] in Serum or Plasma 37 mg/dL 8-23 H [facility] Osmolality of Serum or Plasma by calculation 285 mosm/kg 275-300 [facility] Creatinine/Urea nitrogen [Mass Ratio] in Serum or Plasma 25 [facility] Bicarbonate [Moles/volume] in Serum 20 mmol/L 22-29 L [facility] Alanine aminotransferase [Enzymatic activity/volume] in Seru m or Plasma 83 U/L <41 H [facility] Anion gap 3 in Serum or Plasma 10 mmol/L 8-15 [facility] Glomerular filtration rate/1.73 sq M pre dicted among non-blacks [Volume Rate/Area] in Serum or Plasma by Creatinine-based formula (MDRD) 44 mL/min/1.73m2 >60 L [facility] Glomerular filtration rate/1.73 sq M pre dicted among blacks [Volume Rate/Area] in Serum or Plasma by Creatinine-based formula (MDRD) 51 mL/min/1.73m2 >60 L [facility] ID Date Data Source [id number] 04/18/2021 12:52:55 PM [facility] Name Value Range Interpretation Code Description Data Ema rce(s) Supporting Document(s) [id number] [Mass/volume] in Serum or Plasma 52 ng/mL <9 H [facility] ID Date Data Source [id number] 04/18/2021 02:25:11 PM [facility] Name Value Range Interpretation Code Description Data Ema rce(s) Supporting Document(s) Lactate dehydrogenase [Enzymatic activit y/volume] in Serum or Plasma by Lactate to pyruvate reaction 230 U/L 122-225 H [facility] ID Date Data Source [id number] 04/14/2021 08:37:38 AM EST [facility] IR VISCERAL ARTERIOGRAMFINAL RESULTInter preted by:Eulalia Muñiz MDEXAMINATION: VISCERAL ANGIOGRAPHY FOR Y 90 MAPPING AND TRANS-SPLENIC PORTOGRAPHY, 04/09/2021LINICAL INDICATIONS: 80-year-old male with biopsy-proven HCC with [...] for 180 minutesOperators:IR attending: Eulalia Muñiz MDFellow: MEGHAN Jeffersesident: Riana Alexander M.D. and Adela DanielsTIME OUT: [...] tract. Through the AccuStick sheath, a 4 Martiniquais Kumpe catheter was introduced into the splenic [...] rce(s) Supporting Document(s) ID Date Data Source [id number] 04/12/2021 12:02:55 PM [facility] Name Value Range Interpretation Code Description Data Ema rce(s) Supporting Document(s) Progress Note [facility] [id number] lbm [file] [id number] ID Date Data Source [id number] 04/09/2021 08:41:20 AM [facility] Name Value Range Interpretation Code Description Data Ema rce(s) Supporting Document(s) History and Physical [facility] [id number] lbm [file] [id number]/tube trailer filler+[id number] [file] ID Date Data Source [id number] 04/09/2021 08:22:57 AM [facility] Name Value Range Interpretation Code Description Data Ema e(s) Supporting Document(s) Leukocytes [#/volume] in Blood by Automated count 3.9 10*3/uL 4-10 L [facility] Erythrocytes [#/volume] in Blood by Automated count 2.94 10*6/uL 4.6- 6.1 L [facility] Hemoglobin [Mass/volume] in Blood 8.3 g/dL 13.5-18 L [facility] Hematocrit [Volume Fraction] of Blood by Automated count 24.7 % 4 1-53 L [facility] Erythrocyte mean corpuscular volume [Entitic volume] by Auto mated count 84.2 fL 80-96 [facility] Erythrocyte mean corpuscular hemoglobin [Entitic mass] by Automated count 28.1 pg 27-33 [facility] Erythrocyte mean corpuscular hemoglobin concentration [Mass/volume] by Automated count 33.4 g/dL 32.0-36.0 [facility] E[facility]throcyte distribution width [Ratio] by Automated count 16.4 % 11.5-14.5 H [facility] Platelets [#/volume] in Blood by Automated count 133 10*3/uL 150-400 L [facility] Differential cell count method - Blood [facility] Neutrophils/100 leukocytes in Blood by Automated count 75 % [facility] Lymphocytes/100 leukocytes in Blood by Automated count 7 % [facility] Monocytes/100 leukocytes in Blood by Automated count 10 % [facility] Eosinophils/100 leukocytes in Blood by Automated count 6 % [facility] Basophils/100 leukocytes in Blood by Automated count 2 % [facility] Neutrophils [#/volume] in Blood by Automated count 3.00 10*3/uL 1.8-7 .0 [facility] Lymphocytes [#/volume] in Blood by Automated count 0.26 10*3/uL 1.2-4 .0 L [facility] Monocytes [#/volume] in Blood by Automated count 0.39 10*3/uL 0-0.8 [facility] Eosinophils [#/volume] in Blood by Automated count 0.24 10*3/uL 0-0.5 [facility] Basophils [#/volume] in Blood by Automated count 0.06 10*3/uL 0-0.2 [facility] Nucleated erythrocytes/100 leukocytes [Ratio] in Blood by Automated count 0 /100{WBCs} 0-0 [facility] ID Date Data Source [id number] 04/09/2021 08:38:37 AM [facility] Name Value Range Interpretation Code Description Data Ema rce(s) Supporting Document(s) Prothrombin time (PT) 14.9 s 11.6-14.0 [facility] INR in Platelet poor plasma by Coagulation assay 1.21 [facility] Routine intensity oral anticoagulation I NR is typically 2.0-3.0. Target INR must be clinically individualized. ID Date Data Source [id number] 04/09/2021 08:43:53 AM [facility] Value Range Interpretation Code Description Data Ema rce(s) Supporting Document(s) Albumin [Mass/volume] in Serum or Plasma by Bromocresol green (BCG) dye binding method 3.0 g/dL 3.5-5.2 [facility] Bilirubin.total [Mass/volume] in Serum or Plasma 0.5 mg/dL <1.2 [facility] Calcium [Mass/volume] in Serum or Plasma 10.7 mg/dL 8.8-10.2 H [facility] Chloride [Moles/volume] in Serum or Plasma 102 mmol/L 98-107 [facility] Creatinine [Mass/volume] in Serum or Plasma 1.50 mg/dL 0.70-1.20 [facility] Glucose [Mass/volume] in Serum or Plasma 114 mg/dL 70-140 [facility] Alkaline phosphatase [Enzymatic activity/volume] in Serum or Plasma 181 U/L 40-129 [facility] Potassium [Moles/volume] in Serum or Plasma 4.9 mmol/L 3.4-5.1 [facility] Protein [Mass/volume] in Serum or Plasma 7.4 g/dL 6.4-8.3 [facility] Sodium [Moles/volume] in Serum or Plasma 130 mmol/L 136-145 [facility] Aspartate aminotransferase [Enzymatic activity/volume] in Serum or Plasma 90 U/L <40 [facility] Urea nitrogen [Mass/volume] in Serum or Plasma 55 mg/dL 8-23 [facility] Osmolality of Serum or Plasma by calculation 286 mosm/kg 275-300 [facility] Creatinine/Urea nitrogen [Mass Ratio] in Serum or Plasma 37 [facility] Bicarbonate [Moles/volume] in Serum 15 mmol/L 22-29 [facility] Alanine aminotransferase [Enzymatic activity/volume] in Seru m or Plasma 66 U/L <41 [facility] Anion gap 3 in Serum or Plasma 13 mmol/L 8-15 [facility] Glomerular filtration rate/1.73 sq M pre dicted among non-blacks [Volume Rate/Area] in Serum or Plasma by Creatinine-based formula (MDRD) 43 mL/min/1.73m2 >60 [facility] Glomerular filtration rate/1.73 sq M pre dicted among blacks [Volume Rate/Area] in Serum or Plasma by Creatinine-based formula (MDRD) 49 mL/min/1.73m2 >60 [facility] ID Date Data Source [id number] 04/09/2021 07:41:57 AM EST [facility] Name Value Range Interpretation Code Description Data Ema rce(s) Supporting Document(s) Glucose [Mass/volume] in Capillary blood by Glucometer 106 mg/dL 70- 140 [facility] ID Date Data Source MAGNESIUM LEVEL 04/08/2021 12:00:00 AM EST W1 (Formerly [facility], [facility]) Name Value Range Interpretation Code Description Data Ema rce(s) Supporting Document(s) 2.4 1.8-2.4 MAGNESIUM LEVEL eCW1 ([facility]) ID Date Data Source Basic Metabolic Profile (BMP) 04/08/2021 12:00:00 AM EST eCW 1 ([facility]) Name Value Range Interpretation Code Description Data Ema rce(s) Supporting Document(s) 155 70-100 GLUCOSE, FASTING eCW1 ([facility], [facility]) 45 7-18 BLOOD UREA NITROGEN eCW1 ([facility]) 135 136-145 SODIUM LEVEL eCW1 ([facility]) 41.0 >42 GLOMERULAR FILTRATION RATE eCW 1 ([facility]) 1.72 0.70-1.30 CREATININE FOR GFR eCW1 ([facility]) 5.2 3.5-5.1 POTASSIUM SERUM eCW1 ([facility]) 20 21-32 CARBON DIOXIDE LEVEL eCW1 ([facility]) 11.0 8.8-10.2 CALCIUM LEVEL eCW1 ([facility]) 107 98-107 CHLORIDE LEVEL eCW1 ([facility]) ID Date Data Source CBC with Differential 04/08/2021 12:00:00 AM EST eCW1 (Formerly [facility]) Name Value Range Interpretation Code Description Data Ema rce(s) Supporting Document(s) 3.01 4.30-6.10 RED BLOOD COUNT eCW1 ([facility]) 4.0 4.0-10.0 WHITE BLOOD COUNT eCW1 ([facility]) 8.3 13.5-17.5 HEMOGLOBIN eCW1 ([facility]) 86.0 80.0-96.0 MEAN CORPUSCULAR VOLUME e CW1 ([facility]) 25.9 42.0-52.0 HEMATOCRIT eCW1 ([facility]) 178 150-450 PLATELET COUNT, AUTOMATED eCW1 ([facility]) 27.6 27.0-33.0 MEAN CORPUSCULAR HEMOGLOB IN eCW1 ([facility]) 15.9 11.5-14.5 RED CELL DISTRIBUTION WID TH eCW1 ([facility]) 32.0 32.0-36.5 MEAN CORPUSCULAR HGB CONC eCW1 ([facility]) 66.1 36.0-66.0 NEUTROPHILS % eCW1 ([facility]) 10.4 24.0-44.0 LYMPH % eCW1 ([facility]) 14.1 2.0-8.0 MONO % eCW1 ([facility]) 7.3 0.0-3.0 EOS % eCW1 ([facility]) 1.8 0.0-1.0 BASO % eCW1 ([facility]) 2.6 1.5-8.5 NEUTROPHILS # eCW1 ([facility]) 0.4 1.5-5.0 LYMPH # eCW1 ([facility]) 0.3 0.0-0.5 EOS # eCW1 ([facility]) 0.6 0.0-0.8 MONO # eCW1 ([facility]) 0.1 0.0-0.2 BASO # eCW1 ([facility]) ID Date Data Source [id number] 04/05/2021 12:51:04 PM EDT [facility] Name Value Range Interpretation Code Description Data Ema rce(s) Supporting Document(s) Progress Note [facility] TNNPSs5oZyEYWsSx48/IZVgaBKMvk7UeMSowGUb0GMqbNLLkO9GzKLP1pH4nEAA6ZYfVAnAtBiSlNHA9 lbm HoSgjOFrKuTDPvMbwCCxHfJVecAudtjILeMG2WrYZ4ZHIpH51qXNUpUTWxW7VkNNL5QKq+Vp3KKQLpjE YhDA1UWcxW9YebCnhANW5mav6wnVaWFnW2e9pcv8fRMOmTNYhrD0Rr6JpLn24z5+faJin/trwo4gVlLs jWVFUTRfBkd+aSkG2maU1RCXQaa4S+2ItWI4P/628D m0I6SBw/aowrfgOjHn1ZDeRU2CZZXWeBh6Vj/jY0dqS396zLudfA37BDOB9R8YsWG/3By+FiUh9CVS71 NWaqNLEhIwlSMTMI6MPU2Nfgycx5ndYVzZ5NFkvDZVkOdfj2NYKUWMjfpqPBVO3+khbpZki8UJDYhiNp IQ65LRMKCf9jPRiLFhd//8dvsv77qBOPIQk70OhVkk WFVZrIz0BQz+ANsoQK6SWtpbCRiF9EzpS8AriOB13E9NszFgx8EFUpH3/+IhZDu/OR2anuGGMjPJnkJo Yfrn41OPtCS5u+QKsiflbjeLYSx/E0GS2i+r78lajiM3XElCkT7itvO97ikRvIHsX+6wonIaeRPW1wZy wFrPqP6d3TNc1HEciu8kZ7Fl6YC2Bvl0EPPzW485q/ zuoDgVsUx5ZgYuQTFbbsI0e/DGvnHZ+1rZwDDuz7ey5WowYDpqWhs6g5Lz95WqSEVB5Xi3G0lQifMfJo i3WbrmQloT9mfy250T9sJSZTSHe4AFKzE1dkoEVOwLCmTZ8d1ukJb6RZxZ9COxtLSbxBGpYQX0Ljn/RR yopUmlJDGNmaNfK4RKSGB8qykJdGQc47KYC4ScqRiA 48LhOHrNmNQGnJN8ZrVWliO77R79G3B0VtfcZBRDOuePrennOCagEzHGgmUKbqJV3gVXOATAXViaASl7 ERRxvOvtTsLkEog64B013939erIy5zc5yToUBVU6P/aR6g0qwVDcByfR5fBDjKGGlycW3+R/WvDDxfJF /Ef4vhwbFxwGdVh+pXgDYQBWPdp0YNB5Bb3LK+3/HINOJOSA [file] CaIDVuDdmsOwDaFE9MXs8BBmM4ETM6iPGmEm8QZXd4VAFSYwHpPF1PFDo= ID Date Data Source [id number] 04/05/2021 12:51:00 PM EDT [facility] Name Value Range Interpretation Code Description Data Ema rce(s) Supporting Document(s) SARS-CoV-2 RNA 2019 nCoV Real[facility]: [facility] was ordered by [facility] and reported by [facility]. 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 [facility] Patient has symptoms related to [facility] When did you start to experience these symptoms [Date and time] [Phen X] [facility] Patient was hospitalized because of this condition [facility] patient was admitted to ICU for [facility] Patient resides in a congregate care setting [facility] status [facility] ID Date Data Source [id number] 03/31/2021 05:03:49 PM EDT [facility] Name Value Range Interpretation Code Description Data Ema rce(s) Supporting Document(s) Progress Note [facility] ETHLPq1fTzJJJxKh98/BOEucQMWzw4GaMXjpGOu6AQwvFVDrB7AlSZQ0uI3qKNP5LTfNFfXgYhIlABUo lbm [file] [facility]/otSylVhraWHReyFpt1H0Q1qT5haTSNtDi [file] ICAgICAgICAgICAgICAgICAgICAgICAgICAgICAgIC AgICAgICAgICAgICAgICAgICAgICAgICAgICAgICAgICAgICAgICAgICAgICAgICAgICAgDQogICAgIC AgICAgICAgICAgICAgICAgICAgICAgICAgICAgICAgICAgICAgICAgICAgICAgICAgICAgICAgICAgIC AgICAgICAgICAgICAgICAgICAgICAgICAgICAgICAg ICAgDQogICAgICAgICAgICAgICAgICAgICAgICAgICAgICAgICAgICAgICAgICAgICAgICAgICAgICAg ICAgICAgICAgICAgICAgICAgICAgICAgICAgICAgICAgICAgICAgICAgICAgDQogICAgICAgICAgICAg ICAgICAgICAgICAgICAgICAgICAgICAgICAgICAgIC AgICAgICAgICAgICAgICAgICAgICAgICAgICAgICAgICAgICAgICAgICAgICAgICAgICAgICAgDQogIC AgICAgICAgICAgICAgICAgICAgICAgICAgICAgICAgICAgICAgICAgICAgICAgICAgICAgICAgICAgIC AgICAgICAgICAgICAgICAgICAgICAgICAgICAgICAg ICAgICAgDQogICAgICAgICAgICAgICAgICAgICAgICAgICAgICAgICAgICAgICAgICAgICAgICAgICAg ICAgICAgICAgICAgICAgICAgICAgICAgICAgICAgICAgICAgICAgICAgICAgICAgDQogICAgICAgICAg ICAgICAgICAgICAgICAgICAgICAgICAgICAgICAgIC AgICAgICAgICAgICAgICAgICAgICAgICAgICAgICAgICAgICAgICAgICAgICAgICAgICAgICAgICAgDQ ogICAgICAgICAgICAgICAgICAgICAgICAgICAgICAgICAgICAgICAgICAgICAgICAgICAgICAgICAgIC AgICAgICAgICAgICAgICAgICAgICAgICAgICAgICAg ICAgICAgICAgDQogICAgICAgICAgICAgICAgICAgICAgICAgICAgICAgICAgICAgICAgICAgICAgICAg ICAgICAgICAgICAgICAgICAgICAgICAgICAgICAgICAgICAgICAgICAgICAgICAgICAgDQogICAgICAg ICAgICAgICAgICAgICAgICAgICAgICAgICAgICAgIC AgICAgICAgICAgICAgICAgICAgICAgICAgICAgICAgICAgICAgICAgICAgICAgICAgICAgICAgICAgIC TeKGx0R7cwBOGyQTSfQG9vEOl4Fi4+WSjHUfMuFKP1agNeqY9RYX4nt8KiMVwjWNMrh8EpLLb8EO3KDX EsVRbqXG0VRQpugp8NPJJbCCSneKSMv2agTdBxHTB7 BFObLlkvQR9RPWIqP8bgzgJpUWTyMIMFMX1TRxHtC3OrqH33OUZTDd3+VEkvkrVwRecWFqI9ZUAru3Yk GIz9GK1ISHWxIoshd3HwXrNoYCILCQdbFR4UPGC6JOIgODJjYd8DDHUeD703jcNsNU2RLj0YEsYmFN7x ft2RBsFzEJWsBvvYFne1IXmxBT5OdGUkGJfHdf5ljk BlbeBXv9LlppHqkONLUCc7hHWBPIScWMXSHhJejTTpDR9jJG5uFANnOZWxOeT3ILGYMI1YRHIzQADzbN MlQCNeNYNLCN4SKFqcEBM6ZYAxviHjkDBqEQreUN3GMIKyvoCpUKxyUWPDCVy+Hp0BQN7iq0PuOMflIK QmNH5dld5YWUnETvTgY1H9cMOyZ7C4QAidMo1DJSQe MPMdQYimPPBYRDuuEO6IRL0qszQ8RL7KlDInWUMaSIBktLQpEYh2L95mqVGnPNuaOH0QOOS+Earl+Pg0K PXQeXGEwQNHpOlSwTBYTIaGaN0QxM2EZj2VyO4YhEU33oCryhrQkSRgmKA1PPZ6uQRWfLLRWLE2NzPDp iW5xfcWdEMJaIGSSGgOiE40vqOZkZKHvFIN2ALGeRa 5ONESvK8MewpDllBwlgwBiLRZtISUMCY4QXMqzoqKkcPFwrKbbQW20lRkhBP6MAg4LMoZwVW3gva2PfG MwIk9ILMNnPk6MBGEkAMEkJALaRPO4BQQwFtZbECrvPZMuHOMhRGC9SXWwCLXvYX0LHaFwQTZgPFyyTy TvRATbOVEwet2FULPfQVGaIFo5ASCrKQFiMASuLDqq WKBjHMNeOVS1UQRfNNNoDD1EMqIcTMJsFSZ7FQiuSCVpACOsme1UAVEfRONuRcE7GgGmYXXrFZMtHYcn LIZwAJFhSVOhURKsCHGbOR5JIbNlCGUhQWJmVTxxNCJkPZFxle9LKIFxNDEuOzV5RvVdHFTlQOMwLJdc ODFrPYY5OkP1LZSsQDTgNP6CNaVmKHJhRXR7WOlcVS PvAIBycf8HBBWfJZLoZKkcXSXiXHXeWVKwQBnwQYZbHZL0KIe2QDPgTMOmMP4WJyBzEANoVQM2BKIpHL DuVZVjmy8EBWLwJKAhCdFzSMTkFLHdJAAjFYgcDMMuPLP0TAH8HMXdJGMeUK3RJsCxLTLgUQahREPeMN VtVABqwu2BLZSnDMJsOvEfREVeFONrMUFyETdsURKo HMW7MXL2BBQpFARaDM6OBdRcWHTaYRb5ZOwlIDAhPVXmaa9GPUUsEMBvHXV3FNSgDYPiXKRjPXa6bgVf sTAhDIx9BH5AA0CltfFtLfDODv5Vf469JZKqQIBoTd5MX5cbMq2nDUEqNAWNVi2XYWf8JQL2EUV2O2Oy ZMZmGOOzNoO2BLPeGNYhDMJ3EjW4KAG+QTw6NDndPA k5BxUyHDAwZiBpNaDpRLX8KKF6QzuvRzjxVI8hMFPCHw9+KYznkLKtrYhwLUBOSiT0Bnw1KMqvDEFYFy 0K ID Date Data Source [id number] 03/31/2021 05:03:44 PM EDT [facility] Name Value Range Interpretation Code Description Data Ema rce(s) Supporting Document(s) Progress Note [facility] SKXEXk0zJxAVVzSa77/SUPzqCCWme8IpCAdzYCh4UDasLTVnN5EzQON0cZ1xCRX1HPwRWpTwErBmECHd lbm [file] ICAgICAgICAgICAgICAgICAgICAgICAgICAgICAgIC UyAEDoRHLtFTDzGHMjDN6NDFRxAYXpYKCnYQDeHQYyVRLcQRFeYENoKODoCQToFNBeDEBkHBXgGTMdJW FyOLUtRRMrYDHaDISzZJBlIHEeIZMuRRIxAGIiPRQiDEOnAJKhGEExTMLbURDiXNVpNWKpILDtVN3LUP AgICAgICAgICAgICAgICAgICAgICAgICAgICAgICAg ICAgICAgICAgICAgICAgICAgICAgICAgICAgICAgICAgICAgICAgICAgICAgICAgICAgICAgICAgICAg CQXtRAFoEK8RMQDbPBTeCQSaYAEoZCHoDYBvHEBnTKQbLWKqMNPbSYIpFIWfBHIqCBThPUQqULQqFJXd ICAgICAgICAgICAgICAgICAgICAgICAgICAgICAgIC QsJUKqWCJuNHToFZKqMYIeVN0PUZUoAATqERIzYKDbDQItZGVwHAKgBNGgHEAlUADcZKRsNVRlFVGlLX AgICAgICAgICAgICAgICAgICAgICAgICAgICAgICAgICAgICAgICAgICAgICAgICAgICAgICAgICAgIA 0KICAgICAgICAgICAgICAgICAgICAgICAgICAgICAg ICAgICAgICAgICAgICAgICAgICAgICAgICAgICAgICAgICAgICAgICAgICAgICAgICAgICAgICAgICAg EMTyRMJzVTBoWU6ZIKGrREDqNAOcHLYhXKCcKKGpNXHzQSMjOGNtQDCzBEKcPSBqYIJsJLMtYOFfKGPb ICAgICAgICAgICAgICAgICAgICAgICAgICAgICAgIC BkZKWfAVKjFIMiDSUaUDPoJDRsQW6PGVBrMYTuVZDbQLCgZNMvZIAdLQIaDQVbBCQyTGYaVGKbTYVuRJ AgICAgICAgICAgICAgICAgICAgICAgICAgICAgICAgICAgICAgICAgICAgICAgICAgICAgICAgICAgIC DnJJ4PRRUjJBQnHSMyOIAfJKEjBUWaWJIyPVUsDBKp ICAgICAgICAgICAgICAgICAgICAgICAgICAgICAgICAgICAgICAgICAgICAgICAgICAgICAgICAgICAg YTHrAVEtNDMpMDZnCP6EDRTaSXBgACCyOXZoFKNsFFDmMSLpONBdTGOpZIIdCQGqWAMeHSJyDHNdMWGn ICAgICAgICAgICAgICAgICAgICAgICAgICAgICAgIC NgAEZmTRAnREAsZMHkMDIrSIVpISTsCS4GUN66qCMns7E7LVAcXE0qent/Ad0TJTttwdPjmSOpSJ2FDk GzOV7zsb4SWiQhQD0vbp2IQMqRNkByJ3U1bUBsLYCvTGGHRxViA77pUWhxXt05YGczCPSuFtNgSZe9In 0ITdVvZ3oxBBNmMaD3EZVgAhR7AVKlChF6UCThKxAu NCQlIWWsCXQbWZFCJZ2UDsJoV1PlvF83QLRLZm7+RFpbfpRvKctFEbC5ZGWrh8NkHSn9WF2KGRUqTcjv x4LmZauxXQIRMQgkCG4AZKS5UKP4KFLoNl2REYQdA979jpDwIF9HCd4PWkJwNA3ihg1DJlmkMIJrHpmN Iwx9PYzoVN9UuCUhFPlMqu2fduTmjeMCl8OxrxKriE LOaonwjLcuGAqbQzIyx5ErCBDHLXGujUWmDC0kPZ5dBNJiCPRdRrC8UQYXBQ5RINXqKFZgbAEgRPYpOR RMRD9GEBnjMLP5HYTuzfYdlYWiHGppLZ3BVRNwwaTfBkiwSDFZOAr+Dq4RUP7kh5UyCLggGDYmYN2jsi 3MTHqYRyPhX8N0vFMcP2I8GQxeZi9FQEQjYJKePeAn MKQDQCtoXX7TPP9phlD7HR6AeHWpATEiYOJhmDKfZXr0E37pdIGwZJllYP5THTV+Earl+Lz5WSGBsXTHn RUOvRqAvJQDTIuLlN8QnH4PMc9OnH2MvXO43qGwsyvUmSJsyIH0EBW6cOYPtQJQZFW3KsHZmoF8dumQk SsXwHRJFIrKhD55wtDPfKQOzMHT5MGTgGb9SEYRjK2 PjpiPmdAjjahIuYATwXXODFO5UOQiyitMqnNKliRzbIS19uZjqBG6MFu1SFbVeKB0blf5MzBXtSw5PZL ZaRX7ANPIrXGUcTIDuBCM2OJJvQsCeKZryGLDhHDPnVTG6IWBmGLYgSK2NJpBhAIKsCaSkXIVxYNCsGH Vaee4NIEPyTXZaIeGsTKEpDGNhZWJwJBooYDAkVNPs WOT0OURtQQJzTP3QKbSyWPNoBGC9DMFaWAXuTEHbii5YQDRyDDUhFKY3QCEiXIGrRSRaTWtpMQLsNVL1 WiK4VBFlGTDdAA4ITfDqYAReNMv9KjIoXQDqUECbvb6PGOQsVMKpUHHeYMReOZWkZDIhKJfhQTEyHJDt NFW9WZIvVAAnOR7ITmSdZDBtVOK1LUMsEAKuNPNeqw 2PTJVpMPCtQbj8CyKpIRWrQAPaHCulEABmFOL8HEU4UOOdDULlHN5KDqMwBFWuOFDoEEQeLYZlWIMwxn 0GHIBmHUBhOyMgPTCuPIImKKLtEAsnCMFcFCQ3DBArRNYtKMQpYQ2PBoWoOARmLBJ0KJLiYBSvPANmlq 1TSFWkDXCrAcP6KbFvZHSnJQHsVGflYAWsKSR8QkW1 QIBfKRWsDQ4ULgEgSTPqUMr2GbBnNBOkBOYiik0QUOHqMUCoBCY5DoPkKBXhBOZpVVzgGTQbAMV7Ctb8 EZLdCAXfWE5WTsKyLMIuAku5ZTtgPLYbATGraw7VONBjUSOhMIL9TpWeEOGtIJXwRHmiWMOcXWQfJbgm CFZnNVMkJE3QWyClTQLmWgH7NUYiLSPuBNAriy8BUG WpCIOrEeI9SDUjLAKoHNQyIGjmQYFpPZIuYjC4RQFfNLLhVA0LDzXvWOJlYbGoCTHxCSSiWWPihc0FhC AuhBzuha4GAQzDPp4JiPohXWIgOHrrAz0amSUbJXKkHWGHYa1EpnNnBVLuYQNRNSobSOTuOQTiQdSsXC U1BAVyRBNrJHTpHyvxFKP2Xvw5RdZgSSJnNoV1YXUt ZPC3Ohf6YmYhRPPvWTUyDUFcHDuoIzatLIVeUOW+WA1yAYc+Hs2Oj8ZaplM3fiHqTMohZtXgGV7VAZQJ T0YNCg== ID Date Data Source [id number] 03/31/2021 11:27:34 AM EDT [facility] Name Value Range Interpretation Code Description Data Ema rce(s) Supporting Document(s) POC GLUCOSE 206 mg/dL (70-99) H [facility] NOTIFIED PROVIDERNOTIFIED NURSEPERFORMED BY CLINICAL STAFF ID Date Data Source [id number] 03/31/2021 09:33:13 AM EDT [facility] Name Value Range Interpretation Code Description Data Ema rce(s) Supporting Document(s) WBC 4.7 10*3/uL (4.1-11.0) [facility] RBC 3.05 10*6/uL (4.60-6.10) L [facility] HGB 8.5 g/dL (13.5-18.0) L [facility] PATIENT TRANSFUSED HCT 25.8 % (41.0-53.0) L [facility] PERFORMED AT [address] [facility] [address] MCV 84.6 fL (80.0-95.0) [facility] MCH 28.0 pg (27.0-32.0) [facility] MCHC 33.0 g/dL (32.0-36.0) [facility] RDW 16.2 % (10.5-14.5) H [facility] PLT 167 10*3/uL (150-450) [facility] MPV 8.8 fL (7.1-10.7) [facility] ID Date Data Source [id number] 03/31/2021 08:41:39 AM EDT [facility] Name Value Range Interpretation Code Description Data Ema rce(s) Supporting Document(s) POC GLUCOSE 122 mg/dL (70-99) H [facility] PERFORMED BY CLINICAL STAFF ID Date Data Source [id number] 03/30/2021 04:54:35 PM EDT [facility] Name Value Range Interpretation Code Description Data Ema rce(s) Supporting Document(s) POC GLUCOSE 174 mg/dL (70-99) H [facility] PERFORMED BY CLINICAL STAFF ID Date Data Source [id number] 03/30/2021 12:43:48 PM EDT [facility] Name Value Range Interpretation Code Description Data Ema rce(s) Supporting Document(s) POC GLUCOSE 167 mg/dL (70-99) H [facility] NOTIFIED NURSEPERFORMED BY CLINICAL S TAFF ID Date Data Source [id number] 03/30/2021 12:39:34 PM EDT [facility] Name Value Range Interpretation Code Description Data Ema rce(s) Supporting Document(s) WBC 3.2 10*3/uL (4.1-11.0) L [facility] RBC 2.36 10*6/uL (4.60-6.10) L [facility] HGB 6.6 g/dL (13.5-18.0) L [facility] RESULT(S) CALLED TO AND READ BACK BYAARON ICA 4S AT 1237 ON 03/30/21 [place] [id number] HCT 19.9 % (41.0-53.0) L [facility] PERFORMED AT [address] [place] [address]UIONHL(S) CALLED TO AND READ BACK BYAARONICA 4S AT 1237 ON 03/30/[place] [address] MCV 84.3 fL (80.0-95.0) [facility] MCH 27.9 pg (27.0-32.0) [facility] MCHC 33.1 g/dL (32.0-36.0) [facility] RDW 16.8 % (10.5-14.5) H [facility] PLT 141 10*3/uL (150-450) L [facility] MPV 9.3 fL (7.1-10.7) [facility] ID Date Data Source [id number] 03/30/2021 08:35:32 AM EDT [facility] Name Value Range Interpretation Code Description Data Ema rce(s) Supporting Document(s) POC GLUCOSE 119 mg/dL (70-99) H [facility] NOTIFIED NURSEPERFORMED BY CLINICAL S TAFF ID Date Data Source [id number] 03/30/2021 05:31:19 AM EDT [facility] Name Value Range Interpretation Code Description Data Ema rce(s) Supporting Document(s) URINE WBC (0-5) [facility] URINE RBC (0-2) [facility] BACTERIA 2+ [HPF] [facility] ID Date Data Source [id number] 03/30/2021 05:05:22 AM EDT [facility] Name Value Range Interpretation Code Description Data Ema rce(s) Supporting Document(s) COLOR [facility] PERFORMED AT [address] [place] [address] APPEARANCE [facility] SPEC GRAV URINE 1.011 (1.003-1.030) [facility] PH URINE 6.0 (5.0-7.5) [facility] LEUK ESTERASE (NEG) [facility] CRITERIA FOR CULTURE NOT MET.CULTURE CAN BE ADDED WITHIN 36 HOURS OFCOLLECTION. NITRITE URINE (NEG) [facility] PROTEIN URINE (NEG) [facility] GLUCOSE URINE (NEG) [facility] KETONE URINE (NEG) [facility] UROBILINOGEN 0.2 mg/dL (0-1.0) [facility] BILIRUBIN URINE (NEG) [facility] [place] [facility] BLOOD/HGB URINE (NEG) A [facility] [place] [facility] ID Date Data Source [id number] 03/31/2021 12:30:00 AM EDT [address] [place] [address] PATIENT NAME: EL LINARES OF : 2REPORT: ADMISSION NOTEPATIENT NUMBER: [id number] STATUS: SDMEDICAL RECORD NUMBER: [id number] OF ADMISSION: 1ROOM: 02 PRIMARY CARE PROVIDER: Анна Braun MD UROLOGIST: Dr. Walkre. The patient also follows up with [facility]. CHIEF COMPLAINTS: Recurrent bleeding from the ostomy. HISTORY OF PRESENT ILLNESS: 80-year-old unfortunate male with history of prior bladder cancer requiring a radical cystoprostatectomy with ileal conduit and recently diagnosed hepatocellular carcinoma and scheduled to receive radiation therapy at [facility] presented to the ED with reports of recurrent bleeding from ostomy since Thursday morning. The patient has had multiple episodes of this and was discharged from [facility] in 03/12/2021 with the similar episode requiring [...] portal vein thrombosis, pending radiation therapy at [facility].6. Chronic ascites, on diuretics.7. Recurrent bleeding from [...] recurrent bleeding from the ostomy, discharged from [facility] about three weeks ago and required pressure [...] MD Dictated: 03/30/2021 3:44DT: 03/30/2021 3:51Job #: [id number]: Анна Braun MD NOTE: [facility] computer generated reports are not confirmed orauthenticated unless they are signed by the providerElectronically Authenticated and Edited by:GARETH MONTANA MD on 03/31/2021 12:30 AM EDT Name Value Range Interpretation Code Description Data Ema rce(s) Supporting Document(s) ID Date Data Source [id number] 03/30/2021 01:21:00 AM EDT [facility] Name Value Range Interpretation Code Description Data Ema rce(s) Supporting Document(s) SARS coronavirus 2 RNA [Presence] in Res piratory specimen by JUSTEN with probe detection NOT [facility] This [facility] was reported by [facility] [place] [facility]. ID Date Data Source [id number] 03/30/2021 09:28:37 AM EDT [facility] [place] [facility] Name Value Range Interpretation Code Description Data Ema rce(s) Supporting Document(s) SPECIMEN DESCRIPTION [facility] COVID19 RESULT (NDET) [facility] [place] [facility] THIS ASSAY AMPLIFIES AND DETECTSTHE TARG ET RNA USING REAL-TIME PCR.TESTING PERFORMED ON THE [employer] COMMENT [facility] [place] [facility] UNDER AN EMERGENCY USE AUTHORIZATION(EUA ) FOR THE DETECTION AND/OR DIAGNOSISOF THE VIRUS THAT CAUSES COVID-19.NEGATIVE 2019_NCOV RT-PCR RESULTS DONOT PRECLUDE 2019_NCOV INFECTION ANDSHOULD NOT BE USED THE SOLE BASISFOR PATIENT MANAGEMENT DECISIONS. FIRST TEST [facility] [place] [facility] [place] SYMPTOMATIC [facility] [place] [facility] [place] LICENSE OF [facility] DATE OF SYMPT ONSET [facility] [place] HOSP[facility]ED [facility] [place] [facility] [place] [facility] [place] [facility] ID Date Data Source [id number] 03/29/2021 11:53:30 PM EDT [facility] [place] [facility] SPEC EXP DATE 1PATI ENT ABO/Rh A POSITIVEANTIBODY SCREEN NEGATIVETESTING SITE PERFORMED AT [address] [place] [address] BANK COMMENT BLOOD TYPE CONFIRMED. Name Value Range Interpretation Code Description Data Ema rce(s) Supporting Document(s) TYPE AND SCREEN [facility] [place] [facility] PATIENT ABO/Rh A POSITIVE ID Date Data Source [id number] 03/29/2021 11:10:22 PM EDT [facility] [place] [facility] Name Value Range Interpretation Code Description Data Ema rce(s) Supporting Document(s) TOTAL PROTEIN 7.0 g/dL (6.4-8.2) [facility] [place] [facility] ALBUMIN 2.2 g/dL (3.2-4.5) L [facility] [place] [facility] GLOBULIN 4.8 g/dL (2.7-4.3) H [facility] [place] [facility] ALB/GLOB RATIO 0.5 RATIO [facility] [place] [facility] BILIRUBIN,TOTAL 0.4 mg/dL (0.0-1.0) [facility] [place] [facility] PLEASE NOTE:Total bilirubin results may be falselyelevated in patients taking Eltrombopag. BILIRUBIN,CONJUGATED 0.2 mg/dL (0.0-0.3) [facility] BILIRUBIN,UNCONJ. 0.2 mg/dL (0.0-0.7) [facility] [place] [facility] ALKALINE PHOSPHATASE 177 U/L (45-117) H [facility] AST (SGOT) 85 U/L (11-39) H [facility] [place] [facility] ALT (SGPT) 69 U/L (12-78) [facility] [place] [facility] ID Date Data Source [id number] 03/29/2021 11:10:22 PM EDT [facility] [place] [facility] Name Value Range Interpretation Code Description Data Ema rce(s) Supporting Document(s) TROPONIN I <0.05 ng/mL (<0.05) [facility] [place] [facility] [place] MANDUJANO Less than 0.05: Myocardial injury unlike lyGreater than or equal to 0.05: Highly suggestive of myocardial injuryCorrelation with rise and/or fall ofserial troponins, clinical symptomsand ECG changes is necessary. ID Date Data Source [id number] 03/29/2021 11:10:22 PM EDT [facility] [place] [facility] Name Value Range Interpretation Code Description Data Ema rce(s) Supporting Document(s) SODIUM 137 mmol/L (136-145) [facility] [place] [facility] POTASSIUM 4.7 mmol/L (3.6-5.2) [facility] [place] [facility] CHLORIDE 105 mmol/L (100-108) [facility] [place] [facility] CO2 22 mmol/L (22-31) [facility] [place] [facility] ANION GAP 10 mmol/L (7-16) [facility] [place] [facility] UREA NITROGEN 39 mg/dL (7-24) H [facility] [place] [facility] CREATININE 1.51 mg/dL (0.80-1.30) H [facility] [place] [facility] BUN/CREAT RATIO 25.8 RATIO (10.0-20.0) H [facility] GLUCOSE 163 mg/dL (70-99) H [facility] [place] [facility] CALCIUM 10.0 mg/dL (8.4-10.2) [facility] [place] [facility] GFR 45 ml/min/1.73m2 (>59) L [facility] [place] [facility] GFR ( AMER) 54 ml/min/1.73m2 (>59) L [facility] [place] [facility] GFR INTERPRETATION [facility] --NORMAL KIDNEY FUNCTION OR MILD DISEASE - GFR >OR= 60CHRONIC KIDNEY DISEASE - GFR 15 - 59RENAL FAILURE - GFR <15 Est. GFR calculation based on the MDRDstudy equation, which assumes a steadystate for creatinine. Est. GFR should notbe used for medication dosing. ID Date Data Source [id number] 03/29/2021 10:52:36 PM EDT [facility] [place] [facility] Name Value Range Interpretation Code Description Data Ema rce(s) Supporting Document(s) PT 11.6 s (9.2-11.9) [facility] [place] [facility] PERFORMED AT [address] [facility] [address] INR 1.11 [facility] [place] [facility] SUGGESTED THERAPEUTIC RANGES USING INR F ORSTABILIZED ANTICOAGULATED PATIENTS:STANDARD DOSE THERAPY INR 2.0-3.0 DVT, PE, PREVENT DVT OR EMBOLISMHIGH DOSE THERAPY INR 2.5-3.5 PREVENT EMBOLISM FROM MECHANICAL HEART VALVE ID Date Data Source [id number] 03/29/2021 10:43:14 PM EDT [facility] [place] [facility] Name Value Range Interpretation Code Description Data Ema rce(s) Supporting Document(s) WBC 3.5 10*3/uL (4.1-11.0) L [facility] [place] [facility] [place] RBC 2.67 10*6/uL (4.60-6.10) L [facility] [place] [facility] HGB 7.3 g/dL (13.5-18.0) L [facility] [place] [facility] HCT 22.4 % (41.0-53.0) L [facility] [place] [facility] MCV 83.9 fL (80.0-95.0) [facility] [place] [facility] MCH 27.4 pg (27.0-32.0) [facility] [place] [facility] MCHC 32.7 g/dL (32.0-36.0) [facility] [place] [facility] RDW 16.6 % (10.5-14.5) H [facility] [place] [facility] PLT 173 10*3/uL (150-450) [facility] [place] [facility] MPV 9.1 fL (7.1-10.7) [facility] [place] [facility] NEUT % 71.2 % (35.0-75.0) [facility] [place] [facility] LYMPH % 8.1 % (16.0-52.0) L [facility] [place] [facility] MONO % 12.1 % (0.0-8.0) H [facility] [place] [facility] EOS % 6.5 % (0.0-5.0) H [facility] [place] [facility] BASO % 2.1 % (0.0-4.0) [facility] [place] [facility] NEUT # 2.5 10*3/uL (1.8-7.7) [facility] [place] [facility] LYMPH # 0.3 10*3/uL (1.2-4.8) L [facility] [place] [facility] MONO # 0.4 10*3/uL (0.0-0.8) [facility] [place] [facility] Eosinophils [#/volume] in Blood by Automated count 0.2 10*3/uL (0.0-0 .5) [facility] [place] [facility] [place] BASO # 0.1 10*3/uL (0.0-0.2) Lab [facility] Y ID Date Data Source [id number] 03/27/2021 01:51:59 PM EDT [facility] CT THORAX WITH CONTRAST [id number] RESUL TInterpreted by:Hilario Bautista, MDCT thorax.INDICATION: Hepatocellular [...] rce(s) Supporting Document(s) ID Date Data Source [id number] 03/20/2021 09:37:00 AM EDT [facility] ([facility] [place] Name Value Range Interpretation Code Description Data Ema rce(s) Supporting Document(s) Glucose [Presence] in Urine Laboratory test result [facility] ([facility]) ostomy bag Protein [Presence] in Urine by Test strip Laboratory test result [facility] ([facility] [place]) ostomy bag Ua Leuko Laboratory test result [facility] ([facility] [place]) ostomy bag Ua Nitrite Laboratory test result [facility] ([facility] [place]) ostomy bag Blood [Presence] in Urine by Visual Laboratory test result [facility] ([facility] [place]) ostomy bag Ketones [Presence] in Urine by Test strip Laboratory test result [facility] ([facility]) ostomy bag Color of Urine Laboratory test result [facility] ([facility]) ostomy bag Clarity of Urine Laboratory test result [facility] ([facility] [place]) ostomy bag Ua Specific [place] 1.010 1.003-1.030 [facility] NT ([facility] [place]) ostomy bag pH of Urine by Test strip 7.0 5.0-7.5 [facility] ([facility] [place]) ostomy bag Bilirubin.total [Presence] in Urine by Test strip Laboratory test res ult [facility] ([facility] [place]) ostomy bag Urobilinogen [Mass/volume] in Urine by Test strip 0.2 E.U./dL 0.0-1.0 [facility] ([facility] [place]) ostomy bag ID Date Data Source [id number] 03/15/2021 03:57:13 PM EDT [facility] Name Value Range Interpretation Code Description Data Ema rce(s) Supporting Document(s) Progress Note [facility] HMEJTn3mFxLGUmAv41/GSTerVAIok8SqLZweSSo5JLsxVXKcD4JoGIA7dP1vNHV6NKgZPzBxUeGlHBL4 lbm [file] AgICAgICAgICAgICAgICAgICAgICAgICAgICAgICAgICAgICAgICAgICAgICAgICAgICAgICAgDQogIC AgICAgICAgICAgICAgICAgICAgICAgICAgICAgICAg ICAgICAgICAgICAgICAgICAgICAgICAgICAgICAgICAgICAgICAgICAgICAgICAgICAgICAgICAgICAg ICAgICAgDQogICAgICAgICAgICAgICAgICAgICAgICAgICAgICAgICAgICAgICAgICAgICAgICAgICAg ICAgICAgICAgICAgICAgICAgICAgICAgICAgICAgIC AgICAgICAgICAgICAgICAgDQogICAgICAgICAgICAgICAgICAgICAgICAgICAgICAgICAgICAgICAgIC AgICAgICAgICAgICAgICAgICAgICAgICAgICAgICAgICAgICAgICAgICAgICAgICAgICAgICAgICAgDQ ogICAgICAgICAgICAgICAgICAgICAgICAgICAgICAg ICAgICAgICAgICAgICAgICAgICAgICAgICAgICAgICAgICAgICAgICAgICAgICAgICAgICAgICAgICAg ICAgICAgICAgDQogICAgICAgICAgICAgICAgICAgICAgICAgICAgICAgICAgICAgICAgICAgICAgICAg ICAgICAgICAgICAgICAgICAgICAgICAgICAgICAgIC AgICAgICAgICAgICAgICAgICAgDQogICAgICAgICAgICAgICAgICAgICAgICAgICAgICAgICAgICAgIC AgICAgICAgICAgICAgICAgICAgICAgICAgICAgICAgICAgICAgICAgICAgICAgICAgICAgICAgICAgIC AgDQogICAgICAgICAgICAgICAgICAgICAgICAgICAg ICAgICAgICAgICAgICAgICAgICAgICAgICAgICAgICAgICAgICAgICAgICAgICAgICAgICAgICAgICAg ICAgICAgICAgICAgDQogICAgICAgICAgICAgICAgICAgICAgICAgICAgICAgICAgICAgICAgICAgICAg ICAgICAgICAgICAgICAgICAgICAgICAgICAgICAgIC AgICAgICAgICAgICAgICAgICAgICAgDQogICAgICAgICAgICAgICAgICAgICAgICAgICAgICAgICAgIC AgICAgICAgICAgICAgICAgICAgICAgICAgICAgICAgICAgICAgICAgICAgICAgICAgICAgICAgICAgIC IwYYTkCOp0R3cuUUOdOYErPA5xNZc5Ui8+DQoNCmVu AAE3cvBvtO7RQO2hf7QmRAwdQGFak6SvQSl6VE2OSTHuYOpqLD3JMJmftd5GJBVzTDHmuKMJa2rjCbYz PBK5TFQsWyqmWW9GCOOdP7fwpjNlJSWuXHJFXR5UKvGuI0TifM09TNPYNj6+BRsqleUdYjvHMbM7HUJo y8FiNAs7CM1ZUKXnInsyz4MgUvSpJNIEPNpyIG2KPE N4BNBnQZApRz6PYDWcO274nsOnVS0OMr6LQvOeIA9wcp5AEzXxCHKiYjmHGtt3DGwnWS2TgRQsUCtLnc 2ooaVmocYXy8EixqYlqKQDPOBbeYdhnv6aY50oEKimn3zdQIVEVUQhgCZfPZ1mPO0jDXQmMLAsPmR5RI VJJV0ZBAUhTGZugAOyTKFwHZMLDE5HVYvyFQY1EDAj teVxxFCnNCixTL6HUSOfxePzDApmGINIQCg+Db5PGI8hv7MxKYelWDOhRV3hug1BJSeGUmWcZ5M5wQWo W2Q4CPuiWa3CPCCuUDZrNEpgWTLYCWccQR1SGC7ojvX5YD9KfGOwZSRiGXTdnVOvJPr4B07ojIIhDGsk OW7EWYC+Earl+Vi5XRWTcIVLiEVKqGpMnUSAGFbZbC4 VgA2EIu5OhY1PyIE92pVcyrdFaVHckGT8JJE7iGIAsLHIEPM8LkIOlwC0hzcOgKZXcTJZTHtFyC86btS QoPRZnVIO9LBIbPe0AXRHbO6DklbHwjOunvoAhFZIeIUIPTO5UUWjfxeHhcTFkxNgsIW54dLlxFA4LLc 4NGlEpOK2bpr6TrEIwIw5YUQSrBv1QHTFvGVJoTIJj LKU1FNBcGmAiIGfeLFEsIKPyWJD6OVTtGCMmKY0LFqLmUNXgMXtlAUraKGScVVLssm4ESMNrOVLqQTFk ElAvYOEiZVHmUEhiUVUpYGFrXHJ0LJQaXWNdZN7DZwIcGBOmYZKpLUWbKTCoSZIxsa5SYKSjSNFbGxQo UYLbFCMiTRSbQUncOUKaSRTdDmp6DOLrGIVtGS4YEu QfTYIaIHP8QpEwDJLySRFyzu8ILTBaRFDaKzh3WpOmIKXoINOlIEbqEEKhMLB4FjPcDAOuZTAcSC1CRj RyTXLhYHJ8BLVzAEQzZCHaoz7YXRUxDUKlMAEhSXJlNZDuNPWfSSnlQBZhTEQ9OZU4OZMgTGIjQW3SYf BjGDAmTBD0ZtIjBHZtHSVicu3GYFPgUWZyBfx5IYEl IMBbVJNfNJdoXXZrZQC9IgZdCTNsNXUiVS5EAdDpYPTiTEepVcBsRWLnKGExid5EUCPtSQHhKhj0AbOq JHWqEZReUCelGVQqNJN5NmV8BYXxIAWmUD0ROuSsGHMePMshPkZvRVBaLPQfua9ZQALqDBSuKAWwDQBb HIDbJGOmYBw1mdJgqKDqSOo2GN4MB2NnebNqJtZFGo 4Bn179ITRoGXVbEs6SI9wjPe4wRTSeNMOUQs3HGGy6XWdmIHFlMELdZSElV2DmTRMiB7JiBtEbMYR5EO E2NDc+BIqfSWT2QSOrOQBfNHTiKXB0TIS2ZWZ8CSH3SUJ5NHD9Mt2dZBYRQi0+DQpzdGFydHhyZWYNCj D9Bhh7LSljOGNUUg4K ID Date Data Source [id number] 03/12/2021 12:24:23 PM EDT [facility] [place] [facility] Name Value Range Interpretation Code Description Data Mea rce(s) Supporting Document(s) POC GLUCOSE 76 mg/dL (70-99) [facility] [place] [facility] NOTIFIED NURSEPERFORMED BY CLINICAL S TAFF ID Date Data Source [id number] 03/12/2021 12:18:21 PM EDT [facility] [place] [facility] Name Value Range Interpretation Code Description Data Ema rce(s) Supporting Document(s) POC GLUCOSE 76 mg/dL (70-99) [facility] [place] [facility] PERFORMED BY CLINICAL STAFF ID Date Data Source [id number] 03/12/2021 08:29:05 AM EDT [facility] [place] [facility] Name Value Range Interpretation Code Description Data Ema rce(s) Supporting Document(s) SODIUM 142 mmol/L (136-145) [facility] [place] [facility] POTASSIUM 3.9 mmol/L (3.6-5.2) [facility] [place] [facility] CHLORIDE 112 mmol/L (100-108) H [facility] [place] [facility] CO2 24 mmol/L (22-31) [facility] [place] [facility] ANION GAP 6 mmol/L (7-16) L [facility] [place] [facility] UREA NITROGEN 20 mg/dL (7-24) [facility] [place] [facility] CREATININE 1.06 mg/dL (0.80-1.30) [facility] [place] [facility] BUN/CREAT RATIO 18.9 RATIO (10.0-20.0) [facility] GLUCOSE 74 mg/dL (70-99) [facility] [place] [facility] CALCIUM 9.2 mg/dL (8.4-10.2) [facility] [place] [facility] GFR >60 ml/min/1.73m2 (>59) [facility] [place] [facility] GFR ( AMER) >60 ml/min/1.73m2 (>59) [facility] [place] [facility] GFR INTERPRETATION [facility] --NORMAL KIDNEY FUNCTION OR MILD DISEASE - GFR >OR= 60CHRONIC KIDNEY DISEASE - GFR 15 - 59RENAL FAILURE - GFR <15 Est. GFR calculation based on the MDRDstudy equation, which assumes a steadystate for creatinine. Est. GFR should notbe used for medication dosing. ID Date Data Source [id number] 03/12/2021 07:46:51 AM EDT [facility] [place] [facility] Name Value Range Interpretation Code Description Data Ema rce(s) Supporting Document(s) WBC 3.4 10*3/uL (4.1-11.0) L [facility] [place] [facility] [place] RBC 2.76 10*6/uL (4.60-6.10) L [facility] [place] [facility] HGB 7.8 g/dL (13.5-18.0) L [facility] [place] [facility] HCT 23.4 % (41.0-53.0) L [facility] [place] [facility] MCV 84.9 fL (80.0-95.0) [facility] [place] [facility] MCH 28.1 pg (27.0-32.0) [facility] [place] [facility] MCHC 33.1 g/dL (32.0-36.0) [facility] [place] [facility] RDW 16.0 % (10.5-14.5) H [facility] [place] [facility] PLT 152 10*3/uL (150-450) [facility] [place] [facility] MPV 8.2 fL (7.1-10.7) [facility] [place] [facility] NEUT % 73.0 % (35.0-75.0) [facility] [place] [facility] LYMPH % 6.1 % (16.0-52.0) L [facility] [place] [facility] MONO % 13.2 % (0.0-8.0) H [facility] [place] [facility] EOS % 5.8 % (0.0-5.0) H [facility] [place] [facility] BASO % 1.9 % (0.0-4.0) [facility] [place] [facility] NEUT # 2.5 10*3/uL (1.8-7.7) [facility] [place] [facility] LYMPH # 0.2 10*3/uL (1.2-4.8) L [facility] [place] [facility] MONO # 0.4 10*3/uL (0.0-0.8) [facility] [place] [facility] Eosinophils [#/volume] in Blood by Automated count 0.2 10*3/uL (0.0-0 .5) [facility] [place] [facility] BASO # 0.1 10*3/uL (0.0-0.2) [facility] [place] [facility] ID Date Data Source [id number] 03/12/2021 05:39:53 AM EDT [facility] [place] [facility] [place] Name Value Range Interpretation Code Description Data Ema rce(s) Supporting Document(s) POC GLUCOSE 78 mg/dL (70-99) [facility] [place] [facility] NOTIFIED NURSEPERFORMED BY CLINICAL S TAFF ID Date Data Source [id number] 03/11/2021 11:38:09 PM EDT [facility] [place] [facility] [place] Name Value Range Interpretation Code Description Data Ema rce(s) Supporting Document(s) POC GLUCOSE 84 mg/dL (70-99) [facility] [place] [facility] NOTIFIED NURSEPERFORMED BY CLINICAL S TAFF ID Date Data Source [id number] 03/12/2021 10:21:00 [facility]: [facility] ABDOMEN WITH AND WITHOUT IV [...] greater than right. Professional interpretation performed at [facility] .End of diagnostic report for accession: [id number] Interpreted: Shahnaz Ramos MDTranscribed: 03/12/2021 10:01 AMSigned: 03/12/2021 10:21 AM Shahnaz Ramos MD [facility] # [id number] BILL # [id number] Name Value Range Interpretation Code Description Data Ema rce(s) Supporting Document(s) ID Date Data Source [id number] 03/11/2021 06:13:30 PM EDT [facility] [place] [facility] [place] Name Value Range Interpretation Code Description Data Ema rce(s) Supporting Document(s) POC GLUCOSE 96 mg/dL (70-99) [facility] [place] [facility] [place] PERFORMED BY CLINICAL STAFF ID Date Data Source [id number] 03/12/2021 03:16:01 PM EDT [facility] [place] [facility] [place] Name Value Range Interpretation Code Description Data Ema rce(s) Supporting Document(s) AFP-TUMOR MARKER @ 31.7 ng/mL (<6.0) H [facility] ASSAY BY IMMUNOCHEMILUMINOMETRIC ASSAYON THE SIEMENS IMMULITE 2000 XPi. VALUESOBTAINED WITH DIFFERENT METHODS OR KITSCANNOT BE USED INTERCHANGEABLY FOR PATIENTMONITORING. RESULTS CANNOT BE INTERPRETEDAS ABSOLUTE EVIDENCE OF THE PRESENCE ORABSENCE OF MALIGNANCY. THE TEST IS NOTINTERPRETABLE IN . AFP CAN BE INCREASED IN A VARIETY OFBENIGN DISEASES. SPECIFICITY FOR THE DETECTION OF MALIGNANCY INCREASES WITHINCREASING LEVELS. ID Date Data Source [id number] 03/11/2021 03:39:07 PM EDT [facility] [place] [facility] [place] Name Value Range Interpretation Code Description Data Ema rce(s) Supporting Document(s) APTT 29.6 s (22.0-34.3) [facility] [place] [facility] ID Date Data Source [id number] 03/11/2021 03:39:07 PM EDT [facility] [place] [facility] Name Value Range Interpretation Code Description Data Ema rce(s) Supporting Document(s) PT 12.2 s (9.2-11.9) H [facility] [place] [facility] [place] INR 1.17 [facility] [place] [facility] SUGGESTED THERAPEUTIC RANGES USING INR F ORSTABILIZED ANTICOAGULATED PATIENTS:STANDARD DOSE THERAPY INR 2.0-3.0 DVT, PE, PREVENT DVT OR EMBOLISMHIGH DOSE THERAPY INR 2.5-3.5 PREVENT EMBOLISM FROM MECHANICAL HEART VALVE ID Date Data Source [id number] 03/11/2021 03:32:09 PM EDT [facility] [place] [facility] Name Value Range Interpretation Code Description Data Ema rce(s) Supporting Document(s) WBC 4.1 10*3/uL (4.1-11.0) [facility] [place] [facility] [place] RBC 2.98 10*6/uL (4.60-6.10) L [facility] [place] [facility] HGB 8.4 g/dL (13.5-18.0) L [facility] [place] [facility] HCT 25.6 % (41.0-53.0) L [facility] [place] [facility] PATIENT TRANSFUSED MCV 85.7 fL (80.0-95.0) [facility] [place] [facility] MCH 28.2 pg (27.0-32.0) [facility] [place] [facility] MCHC 32.9 g/dL (32.0-36.0) [facility] [place] [facility] RDW 15.9 % (10.5-14.5) H [facility] [place] [facility] PLT 177 10*3/uL (150-450) [facility] [place] [facility] MPV 8.4 fL (7.1-10.7) [facility] [place] [facility] ID Date Data Source [id number] 03/11/2021 12:40:27 PM EDT [facility] [place] [facility] [place] Name Value Range Interpretation Code Description Data Ema rce(s) Supporting Document(s) POC GLUCOSE 99 mg/dL (70-99) [facility] [place] [facility] PERFORMED BY CLINICAL STAFF ID Date Data Source [id number] 03/11/2021 07:56:19 AM EDT [facility] [place] [facility] [place] Name Value Range Interpretation Code Description Data Ema rce(s) Supporting Document(s) SODIUM 140 mmol/L (136-145) [facility] [place] [facility] POTASSIUM 4.0 mmol/L (3.6-5.2) [facility] [place] [facility] CHLORIDE 110 mmol/L (100-108) H [facility] [place] [facility] CO2 25 mmol/L (22-31) [facility] [place] [facility] ANION GAP 5 mmol/L (7-16) L [facility] [place] [facility] UREA NITROGEN 17 mg/dL (7-24) [facility] [place] [facility] CREATININE 0.98 mg/dL (0.80-1.30) [facility] [place] [facility] BUN/CREAT RATIO 17.3 RATIO (10.0-20.0) [facility] [place] GLUCOSE 80 mg/dL (70-99) [facility] [place] [facility] CALCIUM 9.5 mg/dL (8.4-10.2) [facility] [place] [facility] GFR >60 ml/min/1.73m2 (>59) [facility] [place] [facility] GFR ( AMER) >60 ml/min/1.73m2 (>59) [facility] [place] [facility] GFR INTERPRETATION [facility] [place] --NORMAL KIDNEY FUNCTION OR MILD DISEASE - GFR >OR= 60CHRONIC KIDNEY DISEASE - GFR 15 - 59RENAL FAILURE - GFR <15 Est. GFR calculation based on the MDRDstudy equation, which assumes a steadystate for creatinine. Est. GFR should notbe used for medication dosing. ID Date Data Source [id number] 03/11/2021 07:38:12 AM EDT [facility] [place] [facility] [place] Name Value Range Interpretation Code Description Data Ema rce(s) Supporting Document(s) WBC 3.1 10*3/uL (4.1-11.0) L [facility] [place] [facility] [place] RBC 2.46 10*6/uL (4.60-6.10) L [facility] [place] [facility] HGB 6.9 g/dL (13.5-18.0) L [facility] [place] [facility] RESULT(S) CALLED TO AND READ BACK MEGAN Napoles ON 5SIR AT 0736 ON 03/11/21 BY [address] HCT 20.7 % (41.0-53.0) L [facility] [place] [facility] MCV 84.4 fL (80.0-95.0) [facility] [place] [facility] MCH 27.9 pg (27.0-32.0) [facility] [place] [facility] MCHC 33.0 g/dL (32.0-36.0) [facility] [place] [facility] RDW 16.0 % (10.5-14.5) H [facility] [place] [facility] [place] PLT 154 10*3/uL (150-450) [facility] [place] [facility] [place] MPV 8.6 fL (7.1-10.7) [facility] [place] [facility] [place] ID Date Data Source [id number] 03/11/2021 05:49:03 AM EDT [facility] [place] [facility] [place] Name Value Range Interpretation Code Description Data Ema rce(s) Supporting Document(s) POC GLUCOSE 89 mg/dL (70-99) [facility] [place] [facility] [place] NOTIFIED NURSEPERFORMED BY CLINICAL S TAFF ID Date Data Source [id number] 03/11/2021 12:23:19 AM EDT [facility] [place] [facility] [place] Name Value Range Interpretation Code Description Data Ema rce(s) Supporting Document(s) POC GLUCOSE 105 mg/dL (70-99) H [facility] [place] [facility] [place] NOTIFIED NURSEPERFORMED BY CLINICAL S TAFF ID Date Data Source [id number] 03/10/2021 04:00:00 PM EDT [facility] Name Value Range Interpretation Code Description Data Ema rce(s) Supporting Document(s) SARS coronavirus 2 RNA [Presence] in Res piratory specimen by JUSTEN with probe detection NOT DETECTED [facility] This lab was reported by [facility] [place] [facility] [place]. ID Date Data Source [id number] 03/11/2021 01:47:06 PM EDT [facility] [place] [facility] [place] Name Value Range Interpretation Code Description Data Ema rce(s) Supporting Document(s) SPECIMEN DESCRIPTION [facility] [place] COVID 19 RESULT (NDET) [facility] [place] [facility] [place] NEGATIVE COVID-19 RESULTS DONOT PRECLUDE COVID-2019 INFECTION ANDSHOULD NOT BE USED THE SOLE BASISFOR PATIENT MANAGEMENT DECISIONS. COMMENT [facility] [place] [facility] THE [place] FDA HAS MADE THIS TEST AVAILABL EUNDER AN EMERGENCY USE AUTHORIZATION(EUA) FOR THE DETECTION AND/OR DIAGNOSISOF THE VIRUS THAT CAUSES COVID-19.THIS ASSAY AMPLIFIES AND DETECTS TARGETDNA USING HOSE SUSPENDER CUTTER- MEDIATEDAMPLIFICATIONTESTING PERFORMED ON [employer] FIRST TEST [facility] [place] [facility] EMPLOYED IN HLTHCARE [facility] [place] SYMPTOMATIC [facility] [place] [facility] [place] DATE OF SYMPT ONSET [facility] [place] HOSPITALIZED [facility] [place] [facility] [place] [facility] [place] CONGREGATE CARE SET [facility] [place] ID Date Data Source [id number] 03/12/2021 12:38:20 AM EDT [facility] [place] [facility] [place] PATIENT ABO/Rh A POSITIVEANT IBODY SCREEN NEGATIVESPEC EXP DATE 03/13/2021TESTING SITE PERFORMED AT [address] [place], [place] [address]OOD BANK COMMENT BLOOD TYPE CONFIRMED.UNIT NUMBER [id number] COMPONENT TYPE LEUKOPOOR RED CELLSUNIT DIVISION 00STATUS OF UNIT TRANSFUSEDUNIT TAG COMMENT EMERGENCY RELEASETRANSFUSION STATUS OK TO TRANSFUSECROSSMATCH RESULT COMPATIBLEUNIT NUMBER [id number] COMPONENT TYPE LEUKOPOOR RED CELLSUNIT DIVISION 00STATUS OF UNIT TRANSFUSEDTRANSFUSION STATUS OK TO TRANSFUSECROSSMATCH RESULT COMPATIBLE Name Value Range Interpretation Code Description Data Ema rce(s) Supporting Document(s) ID Date Data Source [id number] 03/10/2021 04:51:00 PM EDT [facility] DATE OF EXAM: 03/10/2021XAM: CT ABDOMEN [...] exclude hepatocellular carcinoma. Professional interpretation performed at [facility] .End of diagnostic report for accession: [id number] Interpreted: Shahnaz Ramos MDTranscribed: 03/10/2021 04:36 PMSigned: 03/10/2021 04:51 PM Shahnaz Ramos MD [facility] # [id number] BILL # [id number] Name Value Range Interpretation Code Description Data Ema rce(s) Supporting Document(s) ID Date Data Source [id number] 03/10/2021 02:00:09 PM EDT [facility] [place] [facility] Name Value Range Interpretation Code Description Data Ema rce(s) Supporting Document(s) SODIUM 137 mmol/L (136-145) [facility] [place] [facility] POTASSIUM 4.2 mmol/L (3.6-5.2) [facility] [place] [facility] CHLORIDE 107 mmol/L (100-108) [facility] [place] [facility] CO2 23 mmol/L (22-31) [facility] [place] [facility] ANION GAP 7 mmol/L (7-16) [facility] [place] [facility] UREA NITROGEN 20 mg/dL (7-24) [facility] [place] [facility] CREATININE 1.15 mg/dL (0.80-1.30) [facility] [place] [facility] BUN/CREAT RATIO 17.4 RATIO (10.0-20.0) [facility] GLUCOSE 198 mg/dL (70-99) H [facility] [place] [facility] CALCIUM 9.7 mg/dL (8.4-10.2) [facility] [place] [facility] GFR >60 ml/min/1.73m2 (>59) [facility] [place] [facility] GFR ( AMER) >60 ml/min/1.73m2 (>59) [facility] [place] [facility] GFR INTERPRETATION [facility] --NORMAL KIDNEY FUNCTION OR MILD DISEASE - GFR >OR= 60CHRONIC KIDNEY DISEASE - GFR 15 - 59RENAL FAILURE - GFR <15 Est. GFR calculation based on the MDRDstudy equation, which assumes a steadystate for creatinine. Est. GFR should notbe used for medication dosing. ID Date Data Source [id number] 03/10/2021 02:00:09 PM EDT [facility] [place] [facility] [place] Name Value Range Interpretation Code Description Data Ema rce(s) Supporting Document(s) TOTAL PROTEIN 6.4 g/dL (6.4-8.2) [facility] [place] [facility] ALBUMIN 2.1 g/dL (3.2-4.5) L [facility] [place] [facility] GLOBULIN 4.3 g/dL (2.7-4.3) [facility] [place] [facility] ALB/GLOB RATIO 0.5 RATIO [facility] [place] [facility] BILIRUBIN,TOTAL 0.6 mg/dL (0.0-1.0) [facility] [place] [facility] PLEASE NOTE:Total bilirubin results may be falselyelevated in patients taking Eltrombopag. BILIRUBIN,CONJUGATED 0.3 mg/dL (0.0-0.3) [facility] BILIRUBIN,UNCONJ. 0.3 mg/dL (0.0-0.7) [facility] [place] [facility] ALKALINE PHOSPHATASE 150 U/L (45-117) H [facility] AST (SGOT) 67 U/L (11-39) H [facility] [place] [facility] ALT (SGPT) 59 U/L (12-78) [facility] [place] [facility] ID Date Data Source [id number] 03/10/2021 01:44:30 PM EDT [facility] [place] [facility] [place] Name Value Range Interpretation Code Description Data Ema rce(s) Supporting Document(s) PT 12.2 s (9.2-11.9) H [facility] [place] [facility] INR 1.17 [facility] [place] [facility] SUGGESTED THERAPEUTIC RANGES USING INR F ORSTABILIZED ANTICOAGULATED PATIENTS:STANDARD DOSE THERAPY INR 2.0-3.0 DVT, PE, PREVENT DVT OR EMBOLISMHIGH DOSE THERAPY INR 2.5-3.5 PREVENT EMBOLISM FROM MECHANICAL HEART VALVE ID Date Data Source [id number] 03/10/2021 01:33:49 PM EDT [facility] [place] [facility] [place] Name Value Range Interpretation Code Description Data Ema rce(s) Supporting Document(s) WBC 4.1 10*3/uL (4.1-11.0) [facility] [place] [facility] RBC 2.70 10*6/uL (4.60-6.10) L [facility] [place] [facility] HGB 7.3 g/dL (13.5-18.0) L [facility] [place] [facility] HCT 23.1 % (41.0-53.0) [facility] [place] [facility] MCV 85.4 fL (80.0-95.0) [facility] [place] [facility] MCH 27.1 pg (27.0-32.0) [facility] [place] [facility] MCHC 31.8 g/dL (32.0-36.0) L [facility] [place] [facility] RDW 16.6 % (10.5-14.5) H [facility] [place] [facility] PLT 164 10*3/uL (150-450) [facility] [place] [facility] MPV 8.7 fL (7.1-10.7) [facility] [place] [facility] NEUT % 73.6 % (35.0-75.0) [facility] [place] [facility] LYMPH % 7.3 % (16.0-52.0) L [facility] [place] [facility] MONO % 13.3 % (0.0-8.0) H [facility] [place] [facility] EOS % 4.7 % (0.0-5.0) [facility] [place] [facility] BASO % 1.1 % (0.0-4.0) [facility] [place] [facility] NEUT # 3.0 10*3/uL (1.8-7.7) [facility] [place] [facility] LYMPH # 0.3 10*3/uL (1.2-4.8) L [facility] [place] [facility] MONO # 0.5 10*3/uL (0.0-0.8) [facility] [place] [facility] Eosinophils [#/volume] in Blood by Automated count 0.2 10*3/uL (0.0-0 .5) [facility] [place] [facility] BASO # 0.0 10*3/uL (0.0-0.2) [facility] [place] [facility] ID Date Data Source [id number] 03/04/2021 08:31:14 PM EDT [facility] Name Value Range Interpretation Code Description Data Ema rce(s) Supporting Document(s) Progress Note [facility] TGWCKz0jPrFGSqBa77/AJYqdUAZga6FjYRqcWJw9TAppUTHnW0HuTJE0eU9eYRQ1SXuPTwGjPjOhHUX2 lb [file] ICAgICAgICAgICAgICAgICAgICAgICAgICAgICAgIC BlIVWcPDIyCWRsRLYjUIQxDHShHKTdXQMhUMMoHYUmWODzHYYvCWCuSWBqKZEeQSNcOAYkBE0VWXGuFQ AgICAgICAgICAgICAgICAgICAgICAgICAgICAgICAgICAgICAgICAgICAgICAgICAgICAgICAgICAgIC AgICAgICAgICAgICAgICAgICAgICAgICAgICAgICAg KQKmLV9MTRIdGCBfKDSwEXSlHPWtPEWpHLTsSNLgIACxTTVpZFMcQTMgNONhMSDjXCYpCEQeBNXwDRRr LZBjDYVhOWXwXDEnBTNgVYTeYQRuJIXfVGPeYPYzMIBpWZInZYCwMVCdSPJuOQ9DYZAdWQDoSQCbHSZm ICAgICAgICAgICAgICAgICAgICAgICAgICAgICAgIC KxICAcHWEiPXNaYCNgMFTzEWIqFXRpJPFkEPJpJMNcZOJuQAUzUBHxKGDuAKOjLGDvTXLsSTHeIM8JBH AgICAgICAgICAgICAgICAgICAgICAgICAgICAgICAgICAgICAgICAgICAgICAgICAgICAgICAgICAgIC AgICAgICAgICAgICAgICAgICAgICAgICAgICAgICAg NTQbEEFfHB2VMILgSUMwZVLvLPZrDPLcVZPiXEToUYBpGGHrKDSgCZUjTGVuTAUuUHLuRYUeICTsNYRd KFXvNURnBMOhFOWnQUFyTHWdTFVrCPZrSIOyLSEqVPEfRBXtEQGeAHJzUICxUEOmNG9SEEAxLQYfDPEr ICAgICAgICAgICAgICAgICAgICAgICAgICAgICAgIC AgICAgICAgICAgICAgICAgICAgICAgICAgICAgICAgICAgICAgICAgICAgICAgICAgICAgICAgICAgIA 0KICAgICAgICAgICAgICAgICAgICAgICAgICAgICAgICAgICAgICAgICAgICAgICAgICAgICAgICAgIC AgICAgICAgICAgICAgICAgICAgICAgICAgICAgICAg AILgKABmQXYqMM9WITLqXTGhKUDkTUJjKPAlTQCmXBAfYKSpNORrKBWvCRYwAJWfBAUzCBLwNNBmXODx TPXrIPDbCSSaHVQaTSPzVWUqXUJsVDRfGCQeNBSqPXXaFXYfKUNuOWIqQDZqWKBySHYdLV5OMO03kQJv y5I8SBPvNR2ulyb/Kk1NNTqckzBurOMkEC8OExLgQQ 3gbb6KXiZbRV3vwm2ARGnGMyOqR8K6jUXqNQJwZQCYXqQtT74jEUhbAp99SKkrBHSiIfEmMMj3Qx2UPc XdH5yjSODvNnA1YOYvMbUdWKjiNT6Du8CviVQwIWh+An5JZA0cn5VrUSjwGIGhKB2img5PERyFXjOjH7 UovlC0EMIcXSKaOf8DVVSpWCRjhSGaCITeWPPPZwVn K1RmbA16POCQPw4+ORoaitSaKmlBYxKjWWIxe1IkOVm4QG4TOAXbVEr7cBBpNZDoE6Qwc4DiOt71FJBi SdpvOpDmaVyfB5N6rWcvJB0kLPIhKT8xFP6nKSFhESPnSmOxSOYGED2CJIQqILEbrZPrYDGxVOLLMS4Q BOgmALD3FISvgbJeqNPdTHcnCP8XQRNmidOwZXvnVU BSDQo+Uy0RMI6rh9FlHKhfIYAlWF2rqg6SVKzGWjJsP1C2rHEzJ6T9YRtjSr7EZYMzKDNrVEbcGCCVGD vpUU4TMO2tjmL6IO1QpMEzLHYtJKIyrYBkORz0S17dbFClOHwaQX3FMLQ+Earl+Nv8WSFNhWAVbYTVqUx SzCPCAFuZwP3OmR9OBw0LhQ3AqAO56iExmqjAoTQpx QH1JBU7vDDScLBIHHX5EcFUxiL5fhaTtSFKpSXIGVzZkX48tzGMkVAHwRUC8TSFeSe2XCHBsE1WvloWw eHhnquAhBHErLDFZMZ9JTPeumdGxtVMweQqqQU33sXmtET6KQs6ILfMxTV8mqx2LhZIlBk5HIROmPs2E QNUaLVUhCEWpIAR2RONiYyUpVMpbKNZdTVWrNOQ1SK KkERRlRV7MUcLxISOrDNN2SvApDCHaMPNykf1HRCIkCUZbKZZfRHCbNRPfIOJeLOomFBUlQUKoYOH2OE DtXMJbVO1HOwUmWHMrNIS3KWjqIMMyBVUrcg5DXQGdLWFpTNh6ZVCgWEAyEPHsUFcoCPJeFGEyLCKoVH McSHRmNK9QEsSqYIJkLEPfDPZaMWFpSKOkgh1KYJLv HKUvYvF1IwLbYWLlIBKoGEznIXOuFKW7DeU2PSFgILOxUU2KYuAcHWXsMVN1WCQcDTFaQLHcfi5FDZSb AAFqOTIjVzGhQPGtTSDeLTzxTSYuGNA0GLe6WDYnVBLeIQ9UBfYbAICxCVKfPHKnYHTtZHJnvh3NGMAm AFQgJlJsYbNzVNGbFSBoMDxaEPLpSTI9QvTiQREjTU TgOU1WImPcUOAlVVG3BJynVDIjMZClnu4BHSBrQAWiFdM1GUTwIKLmERTaCKtiKYVhQUA3QoK3IXVfRH YeVT7BVyWmHDQfHJi4SJbrTFErSAZqep9YDBBdASOhOQg0KrYvAKPtXMKoMHe9vbHwlRSxPFt6BI7IN2 GxxvWiGrKJVc7Jr630XCUyONDyHx6GS0bqFb0bVCUs ENRUQb8EHEc6LtOnDSK4I8O6NrJdXPDwAUZoUqXyPiRoQAWaXTJyKCZ+IDwyZWUwZDQzZThiNTIwNjA5 IOGiIkCnOEEqTdDjVIW3JU5kLTBOJl8+JHqqdNFnkDjxNVWENbI1ZVv8KKrdXLQXSc1D ID Date Data Source [id number] 03/04/2021 03:34:49 PM EDT [facility] Name Value Range Interpretation Code Description Data Ema rce(s) Supporting Document(s) Progress Note [facility] ZYFMOm0lVoLMGbPa70/CIQdmJXLod2ZaRIrjHZd7MIgvMQWnU6IkPDG3fW1pOIG4ZQyLEdTkDjXmQUH3 lbm [file] ICAgICAgICAgICAgICAgICAgICAgICAgICAgICAgIC AgICAgICAgICAgICAgICAgDQogICAgICAgICAgICAgICAgICAgICAgICAgICAgICAgICAgICAgICAgIC AgICAgICAgICAgICAgICAgICAgICAgICAgICAgICAgICAgICAgICAgICAgICAgICAgICAgICAgICAgDQ ogICAgICAgICAgICAgICAgICAgICAgICAgICAgICAg ICAgICAgICAgICAgICAgICAgICAgICAgICAgICAgICAgICAgICAgICAgICAgICAgICAgICAgICAgICAg ICAgICAgICAgDQogICAgICAgICAgICAgICAgICAgICAgICAgICAgICAgICAgICAgICAgICAgICAgICAg ICAgICAgICAgICAgICAgICAgICAgICAgICAgICAgIC AgICAgICAgICAgICAgICAgICAgDQogICAgICAgICAgICAgICAgICAgICAgICAgICAgICAgICAgICAgIC AgICAgICAgICAgICAgICAgICAgICAgICAgICAgICAgICAgICAgICAgICAgICAgICAgICAgICAgICAgIC AgDQogICAgICAgICAgICAgICAgICAgICAgICAgICAg ICAgICAgICAgICAgICAgICAgICAgICAgICAgICAgICAgICAgICAgICAgICAgICAgICAgICAgICAgICAg ICAgICAgICAgICAgDQogICAgICAgICAgICAgICAgICAgICAgICAgICAgICAgICAgICAgICAgICAgICAg ICAgICAgICAgICAgICAgICAgICAgICAgICAgICAgIC AgICAgICAgICAgICAgICAgICAgICAgDQogICAgICAgICAgICAgICAgICAgICAgICAgICAgICAgICAgIC AgICAgICAgICAgICAgICAgICAgICAgICAgICAgICAgICAgICAgICAgICAgICAgICAgICAgICAgICAgIC AgICAgDQogICAgICAgICAgICAgICAgICAgICAgICAg ICAgICAgICAgICAgICAgICAgICAgICAgICAgICAgICAgICAgICAgICAgICAgICAgICAgICAgICAgICAg ICAgICAgICAgICAgICAgDQogICAgICAgICAgICAgICAgICAgICAgICAgICAgICAgICAgICAgICAgICAg ICAgICAgICAgICAgICAgICAgICAgICAgICAgICAgIC ZoPHBeGNWfKCLqHKKqYWQaGDTiMCRjHZPdKJu3O5qsBYNsSTVaQB5jROz0De0+ODsAOlBsTLK7tkPblF 3SSI7cj0SiKZziNVNmt5VuBBl9GB3NDALoUKahWF9IVKcszs3DTVOgQGFtnIJHc9ulMuYfWJE9GZGfRf gkHM1KTNBuW2blnqQeKLTyLFPMULywGKJLIAmrBMXS MZDtPNMvOiJmNQvfGZ1Sx9UjtAK3CWz+Xr3RZO4xq3FiBFmdZGUrJS0qkv3UOLwMJiGqK9YhbdO0WOA9 WVYlJl0DKKAmFTVbaSYvBIHpWSCDTrXhN6LjkI27FVQILa8+XDhbciXcKinEOiW0RVAss8SqJKx8VS6G WHYtREu8eKMhOIHxA0Aie4QpTe63JSHyHnhlJ3J7a4 JpfUAuAGduEnO7SXMcrMkuFOUeNSOlILLgWB6lVZHuYBFhUdCsPORTTX7QXKYmMWShiZSaZJAiKXXSYR 0FPIokDXA6UBQubfVhtQTyZOhyGI9MXVNupvGfKtbpGVJDKTp+Ms3EPY9qq9PbIFxhWOIiXR3grc5TWH iMMuLfQ8E3iIAuM7C7DDfdFf0SLGQmIDXlWoZuJHFN QMpfDF1BJF3olfO5HM0CeLEpTQLcJYAufPViBZm4O15usUDjQTqyXB9WKMG+Earl+Dv5KCTEyVDDlAQNm QyEtWREXNaBxX7ZsZ6ESw6QuI5PcPZ72qPvacpOsRUmmXA7SKZ8xZASwAUOXPK5LaWBhuQ1hloIqEFBh KJWVEdQsN72vyNZjHPVdIXS5JRUbEr5YBCRwO4Pmav TttDeottOdHGExFSEFLK6BVZyujhCdvMAxdRwaLP40vMjnDY2LUw5UHpQfTX7ems3MhKIwJq8HICVrTM 4BPMWeSLZwYEThJSV5LVNvHlGjZAnsPZZpCEWoUMT1ABRrGQOhOD5PKmYmFQUhMlmfCYlhARCqPGMgle 2CDYQtFHYvRDknMMXhBNWdVMYsXKwmQHXkBNUeDYJ8 UABvBJZdZG5CNnDcUFOgTPY6TMtpWGAqANJhoi9AQLJtGLRuJWJtKEFfCITdDLCgSDfpTVBcQKP8JVV9 LRXeVFKiCL0SQiSrWHBoLSA3WsBxGSPvQZAuqa9GNWAhXRBlBWb5QILvKIWrKMDbEJvnSDWzJQSsYGB0 AEEjVDFcTC2JGkFhYAJeBXZ0LIMaCYViSQWxvy4XWP IlDNWbGledDRWoXAXlMWBdNXsnWXQhCSAtWjA1GMLzSTWyRL2STmMnEMGwUYS1QjKdLXWiMXGjzi5WZK OcMCEdEUC9JJGcSCGnZMBdOBhuSNKaGWA7OYU4NCLhVHEeBW7BRlDvSTCwCHXyFTdqIZWfIQUnkh8OVH OmHVCrELW2JnObMDAwWYQlWFiuDKRuAQF8DCJ8SHNz CQNrBM4TVgGaLUAeGufoZFYtAMQsTYGcmg8HIENwHXCmPaJ0EKIbZSGcUBLxYUruWMYjAIR7PlTmPTEh CBXgTW7WOeByKYAsWin5ESzaIJLdRPOtld0TMTChVDIaJQyyQOAyETNqIGUsZOenUGWzHHF2SZe0BUCf VSVqZF6RJjGiQKPjAbjpSigfDMBxCCLgvq4FLQVwMD WuEXA6HWGdSKDtIQZoPYgyUQLwUDIkIARrEVYxTAEgUZ0CSdUqPBVvXtKiALXbFEMgXXZwgx0EVJDbMZ ZaCQJ4ZkSwSSHvGYImHNo8jkMvxRXhMOa5GK5ZU8HkheXeHzPJSq2Ex080XKXsFWRtGh2OI7clSz5pVK BhJJNLTm4OUHt4MIEzHXLvPxinZTOfHIY8JXG6JkW3 DwUyGLgxRzb7BqO+YTspQiTsHVPfX8N0HjIeLzdpCXO0HrP2YxP7DUWmQqcwRF8tTFAVTh5+DQpzdGFy hTutHWXRLoAeJGDcLUytVUTACh5J ID Date Data Source [id number] 02/28/2021 12:47:10 PM EDT [facility] Name Value Range Interpretation Code Description Data Ema rce(s) Supporting Document(s) Progress Note [facility] MLHJEj3zSvDCIzMf39/WPAkyVULur8OlIAtmLDp2AQorZEKgH5UlNGM0nL6qQVE4LGhSPhAgOmKiMGDb lbm [file] CiAgICAgICAgICAgICAgICAgICAgICAgICAgICAgICAgICAgICAgICAgICAgICAgICAgICAgICAgICAg ICAgICAgICAgICAgICAgICAgICAgICAgICAgICAgIC AgICAgICAgICANCiAgICAgICAgICAgICAgICAgICAgICAgICAgICAgICAgICAgICAgICAgICAgICAgIC AgICAgICAgICAgICAgICAgICAgICAgICAgICAgICAgICAgICAgICAgICAgICAgICAgICANCiAgICAgIC AgICAgICAgICAgICAgICAgICAgICAgICAgICAgICAg ICAgICAgICAgICAgICAgICAgICAgICAgICAgICAgICAgICAgICAgICAgICAgICAgICAgICAgICAgICAg ICANCiAgICAgICAgICAgICAgICAgICAgICAgICAgICAgICAgICAgICAgICAgICAgICAgICAgICAgICAg ICAgICAgICAgICAgICAgICAgICAgICAgICAgICAgIC AgICAgICAgICAgICANCiAgICAgICAgICAgICAgICAgICAgICAgICAgICAgICAgICAgICAgICAgICAgIC AgICAgICAgICAgICAgICAgICAgICAgICAgICAgICAgICAgICAgICAgICAgICAgICAgICAgICANCiAgIC AgICAgICAgICAgICAgICAgICAgICAgICAgICAgICAg ICAgICAgICAgICAgICAgICAgICAgICAgICAgICAgICAgICAgICAgICAgICAgICAgICAgICAgICAgICAg ICAgICANCiAgICAgICAgICAgICAgICAgICAgICAgICAgICAgICAgICAgICAgICAgICAgICAgICAgICAg ICAgICAgICAgICAgICAgICAgICAgICAgICAgICAgIC AgICAgICAgICAgICAgICANCiAgICAgICAgICAgICAgICAgICAgICAgICAgICAgICAgICAgICAgICAgIC AgICAgICAgICAgICAgICAgICAgICAgICAgICAgICAgICAgICAgICAgICAgICAgICAgICAgICAgICANCi AgICAgICAgICAgICAgICAgICAgICAgICAgICAgICAg ICAgICAgICAgICAgICAgICAgICAgICAgICAgICAgICAgICAgICAgICAgICAgICAgICAgICAgICAgICAg ICAgICAgICANCiAgICAgICAgICAgICAgICAgICAgICAgICAgICAgICAgICAgICAgICAgICAgICAgICAg ICAgICAgICAgICAgICAgICAgICAgICAgICAgICAgIC AgICAgICAgICAgICAgICAgICANCjw/iHToM1fznUJiiaO1T7nsOl7QKp4OWR7qy1UwOHZwWSacktSsJh bKLvBdLNWpWtdPZgl6UIweXY7DiJPcZ6DjC4KhIRbfGQ2WURNfHJQcxREcCAKuHFTeGeL3UGTvYEoyAV 9LaWRzIFsgNSAwIFIgNyAwIFIgOSAwIFIgMTEgMCBS WRBwTBAcNaEyKXdxDJ6Gr0QyqAS0SVn+Av9XIC7wl1EdJKklPpDvBQ7ymw6WZSaLSfYqK7BvzoF3IWY0 NHRhIq5BQJJvXJTnxHTvNRNdDCTFAiIpN7OhaC44TBVNOe9+UBpdapMqQyzSCtE7DZJlz0KvPDc6GS6I DPIcMFb9qOIdIZUwY9Toa0UgFd43DAXcMdznMaquhA YABAvdYVjegdfpVB2cAPHfTB4cJI9fGDOfOODpKgEzUQMCVN2NLYNaLRKekOGuANWeDLTZFW1YRBbkYP P8LACvetGpgSVnZZaqYR0QXAJumiDaNxxeJQJLRNn+Cq0BAB8px2QtVZyvVGVuFD2pxx6BMIdTUkSbI9 O7dHOzX7A5OXidUp4ZDAKwUGOyVaDqMHMQSPmvTN9J PL9ezsK3LF9YfWQeTWPpZNNvqWXmCGn5B82zkNGnOEqiDN0HVDP+Earl+Rj7TJNVeENZkEKIfGjUdESHI BnUzC9XsC4XZq4JbJ9CrFB78vCfhonWrHLttGA6TQF5xAMQtRPWWSF0BjTFvdE3vniYkXyOsJGYISzZu D70xsUHdEPJpVJJ0JJAqXd7BLGSrD2LspgDmhNthxz IhCQTdNFNJHH6ELFtamxVtkUWjnJldFM84qFmlLH3SQt9YIzNeAI8syu9NaKCzGh4URPEwBG1BZFExIF IgCTPfVNA9OHHxUpDkKLqgBSYdQZMuDQX5YBEwLFLeQH6NTyQvVNGpSoisMKacMKTfLHRlpl6HDHKzUS ZlZNbzXeYjUDEsINGgKPsfUXDbJERgOJN6LFCqTCPj QV1EOsJjXKZtSJA2FvEvYILlXTLtlb5MKSLnFMOyRFVnHzQpRPYsTGWdKXsqGIOrTEV7JCFlHLFcYOMc CB3VCpWlTKGsGXluTtFdCUPfBWWcoz5IOZJiRVUwJFu8GeWhSJQxAKRdAZkgUIHaYYGfVYT6UQLyLYAw BP2GOrMfQMXgTXA5DuspDITqTISiif2TRHVhHKNhFk o2ROWjJVEoQXRoFXgyXPKdGDGhGBYzRWKlIHEgFP5SSjEiYZAjWLGkJigwNYVhFBDiai9LEOAwKTLoKE u6KkPoYMLaMFGdYZfnFXNmVSN7DXj8LOZbSMQsPS3PMlCjNLYpGGLwJwtuSJZdKAYokv1WCVSfDGHjJu MkHiKhKCKmWQMgHBznIFUfXPC7ZYO3HZXxNWQvXN8O WiRgCGFmCCR0VPLpHJCwQPSqoh1ZNBBpKOQbMOV1AhLwAXEhUUInXTrcNOFpDPD4VNvbMSPgQDVrLZ6K JvXsHDTlNse6XRRbCCWtOPPsbu3AGEZxCLUnBFcoLQHsCMToZFFjDKfiAWUhCKA3DVy7ENOfIYUbIC5Y HnMwOTUuTvh1PzlzTNRbSPSkgx4FYJTwDTInAPg1TL HcZZBvQWIzBRwkGOOtOGAdIVGgURZhYLOdZK5VKhZjGKQcYuMiClPjNZVnLQBjtv0LaQQimCgjft4JYH hRJf4EmGlrBNBbZSdcOf5dqZYqXRYrRWFMBa2JxkVvVGXfGWDZHJcyIROtANKzSTB9UgJeATV8JPA5OK v8E1O5LPGyPBY0VAw8B0VeYvN5OTI8IAYxRSRjJNw3 VYVhYzuoEqJdAVV7KywfVDn8EaV+OQ3wLNp+Mz6In8OagoT6teElCKslPBXlFR5PZZWWT8GTFm== ID Date Data Source [id number] 02/28/2021 01:25:31 PM [facility] Name Value Range Interpretation Code Description Data Ema rce(s) Supporting Document(s) Hepatitis A virus IgM Ab [Presence] in Serum or Plasma by Im munoassay Non Reactive [facility] No acute infection, susceptible to infec tion. Hepatitis B virus core IgM Ab [Presence] in Serum or Plasma by Immunoassay Non Reactive [facility] IgM antibodies to HBc were not detected, does not exclude the possibility of exposure to HBV. Hepatitis C virus Ab [Presence] in Serum or Plasma by Immuno assay Non Reactive [facility] No serological evidence of active infect ion. If recent exposure is suspected, test for HCV RNA. Hepatitis B virus surface Ag [Presence] in Serum or Plasma b y Immunoassay Non Reactive [facility] No active or previous infection. Suscept ible to infection. ID Date Data Source [id number] 02/28/2021 12:39:41 PM EDT [facility] Name Value Range Interpretation Code Description Data Ema rce(s) Supporting Document(s) Leukocytes [#/volume] in Blood by Automated count 4.0 10*3/uL 4-10 [facility] Erythrocytes [#/volume] in Blood by Automated count 2.97 10*6/uL 4.6- 6.1 L [facility] Hemoglobin [Mass/volume] in Blood 8.4 g/dL 13.5-18 L [facility] Hematocrit [Volume Fraction] of Blood by Automated count 25.4 % 4 1-53 L [facility] Erythrocyte mean corpuscular volume [Entitic volume] by Auto mated count 85.4 fL 80-96 [facility] Erythrocyte mean corpuscular hemoglobin [Entitic mass] by Automated count 28.3 pg 27-33 [facility] Erythrocyte mean corpuscular hemoglobin concentration [Mass/volume] by Automated count 33.1 g/dL 32.0-36.0 [facility]th[facility] distribution width [Ratio] by Automated count 16.7 % 11.5-14.5 H [facility] Platelets [#/volume] in Blood by Automated count 190 10*3/uL 150-400 [facility] Differential cell count method - Blood [facility] Neutrophils/100 leukocytes in Blood by Automated count 74 % [facility] Lymphocytes/100 leukocytes in Blood by Automated count 6 % [facility] Monocytes/100 leukocytes in Blood by Automated count 12 % [facility] Eosinophils/100 leukocytes in Blood by Automated count 6 % [facility] Basophils/100 leukocytes in Blood by Automated count 2 % [facility] Neutrophils [#/volume] in Blood by Automated count 3.00 10*3/uL 1.8-7 .0 [facility] Lymphocytes [#/volume] in Blood by Automated count 0.25 10*3/uL 1.2-4 .0 L [facility] Monocytes [#/volume] in Blood by Automated count 0.46 10*3/uL 0-0.8 [facility] Eosinophils [#/volume] in Blood by Automated count 0.26 10*3/uL 0-0.5 [facility] Basophils [#/volume] in Blood by Automated count 0.06 10*3/uL 0-0.2 [facility] Nucleated erythrocytes/100 leukocytes [Ratio] in Blood by Automated count 0 /100{WBCs} 0-0 [facility] ID Date Data Source [id number] 02/28/2021 12:59:20 PM [facility] Value Range Interpretation Code Description Data Ema rce(s) Supporting Document(s) Prothrombin time (PT) 14.6 s 11.6-14.0 H [facility] INR in Platelet poor plasma by Coagulation assay 1.18 [facility] Routine intensity oral anticoagulation I NR is typically 2.0-3.0. Target INR must be clinically individualized. ID Date Data Source [id number] 02/28/2021 12:59:20 PM [facility] Value Range Interpretation Code Description Data Ema rce(s) Supporting Document(s) aPTT in Platelet poor plasma by Coagulation assay 33.5 s 24.0-33. 0 H [facility] ID Date Data Source [id number] 02/28/2021 01:24:10 PM [facility] Value Range Interpretation Code Description Data Ema rce(s) Supporting Document(s) Eyqek-3-Ngshxeiciok [Mass/volume] in Serum or Plasma 45 ng/mL <9 H [facility] ID Date Data Source [id number] 02/28/2021 01:24:10 PM [facility] Value Range Interpretation Code Description Data Ema rce(s) Supporting Document(s) Albumin [Mass/volume] in Serum or Plasma by Bromocresol green (BCG) dye binding method 3.4 g/dL 3.5-5.2 [facility] Bilirubin.total [Mass/volume] in Serum or Plasma 0.7 mg/dL <1.2 [facility] Calcium [Mass/volume] in Serum or Plasma 10.6 mg/dL 8.8-10.2 H [facility] Chloride [Moles/volume] in Serum or Plasma 97 mmol/L 98-107 L [facility] Creatinine [Mass/volume] in Serum or Plasma 0.94 mg/dL 0.70-1.20 [facility] Glucose [Mass/volume] in Serum or Plasma 138 mg/dL 70-140 [facility] Alkaline phosphatase [Enzymatic activity/volume] in Serum or Plasma 168 U/L 40-129 H [facility] Potassium [Moles/volume] in Serum or Plasma 4.1 mmol/L 3.4-5.1 [facility] Protein [Mass/volume] in Serum or Plasma 7.1 g/dL 6.4-8.3 [facility] Sodium [Moles/volume] in Serum or Plasma 130 mmol/L 136-145 L [facility] Aspartate aminotransferase [Enzymatic activity/volume] in Serum or Plasma 60 U/L <40 H [facility] Urea nitrogen [Mass/volume] in Serum or Plasma 17 mg/dL 8-23 [facility] Osmolality of Serum or Plasma by calculation 274 mosm/kg 275-300 L [facility] Creatinine/Urea nitrogen [Mass Ratio] in Serum or Plasma 18 [facility] Bicarbonate [Moles/volume] in Serum 22 mmol/L 22-29 [facility] Alanine aminotransferase [Enzymatic activity/volume] in Seru m or Plasma 36 U/L <41 [facility] Anion gap 3 in Serum or Plasma 11 mmol/L 8-15 [facility] Glomerular filtration rate/1.73 sq M pre dicted among non-blacks [Volume Rate/Area] in Serum or Plasma by Creatinine-based formula (MDRD) 77 mL/min/1.73m2 >60 [facility] Glomerular filtration rate/1.73 sq M pre dicted among blacks [Volume Rate/Area] in Serum or Plasma by Creatinine-based formula (MDRD) 90 mL/min/1.73m2 >60 [facility] ID Date Data Source [id number] 02/18/2021 08:24:57 AM EDT [facility] Name Value Range Interpretation Code Description Data Ema rce(s) Supporting Document(s) POC GLUCOSE 124 mg/dL (70-99) H [facility] PERFORMED BY CLINICAL STAFF ID Date Data Source [id number] 02/18/2021 07:04:16 AM EDT [facility] Name Value Range Interpretation Code Description Data Ema rce(s) Supporting Document(s) SODIUM 141 mmol/L (136-145) [facility] POTASSIUM 3.8 mmol/L (3.6-5.2) [facility] CHLORIDE 111 mmol/L (100-108) H [facility] CO2 25 mmol/L (22-31) [facility] ANION GAP 5 mmol/L (7-16) L [facility] UREA NITROGEN 13 mg/dL (7-24) [facility] CREATININE 0.75 mg/dL (0.80-1.30) L [facility] BUN/CREAT RATIO 17.3 RATIO (10.0-20.0) [facility] GLUCOSE 137 mg/dL (70-99) H [facility] CALCIUM 9.0 mg/dL (8.4-10.2) [facility] TOTAL PROTEIN 5.5 g/dL (6.4-8.2) L [facility] ALBUMIN 1.8 g/dL (3.2-4.5) L [facility] GLOBULIN 3.7 g/dL (2.7-4.3) [facility] ALB/GLOB RATIO 0.5 RATIO [facility] ALKALINE PHOSPHATASE 139 U/L (45-117) H [facility] BILIRUBIN,TOTAL 0.8 mg/dL (0.0-1.0) [facility] PLEASE NOTE:Total bilirubin results may be falselyelevated in patients taking Eltrombopag. AST (SGOT) 63 U/L (11-39) H [facility] ALT (SGPT) 39 U/L (12-78) [facility] GFR >60 ml/min/1.73m2 (>59) [facility] GFR ( AMER) >60 ml/min/1.73m2 (>59) [facility] GFR INTERPRETATION [facility] --NORMAL KIDNEY FUNCTION OR MILD DISEASE - GFR >OR= 60CHRONIC KIDNEY DISEASE - GFR 15 - 59RENAL FAILURE - GFR <15 Est. GFR calculation based on the MDRDstudy equation, which assumes a steadystate for creatinine. Est. GFR should notbe used for medication dosing. ID Date Data Source [id number] 02/18/2021 06:27:58 AM EDT [facility] Name Value Range Interpretation Code Description Data Ema rce(s) Supporting Document(s) WBC 3.0 10*3/uL (4.1-11.0) L [facility] RBC 2.62 10*6/uL (4.60-6.10) L [facility] HGB 7.4 g/dL (13.5-18.0) L [facility] HCT 22.4 % (41.0-53.0) L [facility] MCV 85.4 fL (80.0-95.0) [facility] MCH 28.3 pg (27.0-32.0) [facility] MCHC 33.1 g/dL (32.0-36.0) [facility] RDW 16.2 % (10.5-14.5) H [facility] PLT 125 10*3/uL (150-450) L [facility] MPV 8.6 fL (7.1-10.7) [facility] ID Date Data Source [id number] 02/18/2021 02:59:19 AM EDT [facility] Name Value Range Interpretation Code Description Data Ema rce(s) Supporting Document(s) POC GLUCOSE 126 mg/dL (70-99) H [facility] NOTIFIED NURSEPERFORMED BY CLINICAL S TAFF ID Date Data Source [id number] 02/17/2021 08:44:14 PM EDT [facility] Name Value Range Interpretation Code Description Data Ema rce(s) Supporting Document(s) POC GLUCOSE 183 mg/dL (70-99) H [facility] NOTIFIED NURSEPERFORMED BY CLINICAL S TAFF ID Date Data Source [id number] 02/17/2021 08:20:47 PM EDT [facility] Name Value Range Interpretation Code Description Data Ema rce(s) Supporting Document(s) WBC 3.8 10*3/uL (4.1-11.0) L [facility] RBC 3.01 10*6/uL (4.60-6.10) L [facility] HGB 8.3 g/dL (13.5-18.0) L [facility] HCT 25.6 % (41.0-53.0) L [facility] MCV 85.3 fL (80.0-95.0) [facility] MCH 27.5 pg (27.0-32.0) [facility] MCHC 32.2 g/dL (32.0-36.0) [facility] RDW 16.4 % (10.5-14.5) H [facility] PLT 157 10*3/uL (150-450) [facility] MPV 7.9 fL (7.1-10.7) [facility] ID Date Data Source [id number] 02/17/2021 05:44:15 PM EDT [facility] Name Value Range Interpretation Code Description Data Ema rce(s) Supporting Document(s) POC GLUCOSE 141 mg/dL (70-99) H [facility] NOTIFIED NURSEPERFORMED BY CLINICAL S TAFF ID Date Data Source [id number] 02/17/2021 02:11:35 PM EDT [facility] Name Value Range Interpretation Code Description Data Ema rce(s) Supporting Document(s) WBC 3.3 10*3/uL (4.1-11.0) L [facility] RBC 2.86 10*6/uL (4.60-6.10) L [facility] HGB 7.9 g/dL (13.5-18.0) L [facility] HCT 24.5 % (41.0-53.0) L [facility] MCV 85.6 fL (80.0-95.0) [facility] MCH 27.7 pg (27.0-32.0) [facility] MCHC 32.3 g/dL (32.0-36.0) [facility] RDW 16.2 % (10.5-14.5) H [facility] PLT 136 10*3/uL (150-450) L [facility] MPV 8.9 fL (7.1-10.7) [facility] ID Date Data Source [id number] 02/17/2021 12:45:18 PM EDT [facility] Name Value Range Interpretation Code Description Data Ema rce(s) Supporting Document(s) POC GLUCOSE 151 mg/dL (70-99) H [facility] PERFORMED BY CLINICAL STAFF ID Date Data Source [id number] 02/17/2021 09:02:18 AM EDT [facility] Name Value Range Interpretation Code Description Data Ema rce(s) Supporting Document(s) POC GLUCOSE 120 mg/dL (70-99) H [facility] PERFORMED BY CLINICAL STAFF ID Date Data Source [id number] 02/17/2021 08:36:01 AM EDT [facility] Name Value Range Interpretation Code Description Data Ema rce(s) Supporting Document(s) SODIUM 143 mmol/L (136-145) [facility] POTASSIUM 3.6 mmol/L (3.6-5.2) [facility] CHLORIDE 113 mmol/L (100-108) [facility] [place] [facility] CO2 25 mmol/L (22-31) [facility] ANION GAP 5 mmol/L (7-16) [facility] [place] [facility] UREA NITROGEN 16 mg/dL (7-24) [facility] CREATININE 0.80 mg/dL (0.80-1.30) [facility] BUN/CREAT RATIO 20.0 RATIO (10.0-20.0) [facility] GLUCOSE 126 mg/dL (70-99) [facility] CALCIUM 8.6 mg/dL (8.4-10.2) [facility] TOTAL PROTEIN 5.7 g/dL (6.4-8.2) [facility] ALBUMIN 1.9 g/dL (3.2-4.5) [facility] GLOBULIN 3.8 g/dL (2.7-4.3) [facility] ALB/GLOB RATIO 0.5 RATIO [facility] ALKALINE PHOSPHATASE 141 U/L (45-117) [facility] BILIRUBIN,TOTAL 1.2 mg/dL (0.0-1.0) [facility] [place] [facility] PLEASE NOTE:Total bilirubin results may be falselyelevated in patients taking Eltrombopag. AST (SGOT) 56 U/L (11-39) [facility] [place] [facility] ALT (SGPT) 37 U/L (12-78) [facility] GFR >60 ml/min/1.73m2 (>59) [facility] GFR ( AMER) >60 ml/min/1.73m2 (>59) [facility] GFR INTERPRETATION [facility] --NORMAL KIDNEY FUNCTION OR MILD DISEASE - GFR >OR= 60CHRONIC KIDNEY DISEASE - GFR 15 - 59RENAL FAILURE - GFR <15 Est. GFR calculation based on the MDRDstudy equation, which assumes a steadystate for creatinine. Est. GFR should notbe used for medication dosing. ID Date Data Source [id number] 02/17/2021 08:02:19 AM EDT [facility] Name Value Range Interpretation Code Description Data Ema rce(s) Supporting Document(s) WBC 3.0 10*3/uL (4.1-11.0) [facility] [place] [facility] RBC 2.69 10*6/uL (4.60-6.10) [facility] [place] [facility] HGB 7.4 g/dL (13.5-18.0) [facility] [place] [facility] HCT 22.8 % (41.0-53.0) [facility] [place] [facility] [address] [facility] [place] [address] MCV 84.6 fL (80.0-95.0) [facility] [place] [facility] MCH 27.6 pg (27.0-32.0) [facility] MCHC 32.6 g/dL (32.0-36.0) [facility] [place] [facility] RDW 16.5 % (10.5-14.5) [facility] [place] [facility] PLT 129 10*3/uL (150-450) [facility] [place] [facility] MPV 8.7 fL (7.1-10.7) [facility] ID Date Data Source [id number] 02/17/2021 04:40:08 AM EDT [facility] Name Value Range Interpretation Code Description Data Ema rce(s) Supporting Document(s) POC GLUCOSE 125 mg/dL (70-99) [facility] [place] [facility] PERFORMED BY CLINICAL STAFF ID Date Data Source [id number] 02/16/2021 10:37:35 PM EDT [facility] Name Value Range Interpretation Code Description Data Ema rce(s) Supporting Document(s) POC GLUCOSE 169 mg/dL (70-99) [facility] [place] [facility] NOTIFIED NURSEPERFORMED BY CLINICAL S TAFF ID Date Data Source [id number] 02/16/2021 08:37:46 PM EDT [facility] Name Value Range Interpretation Code Description Data Ema rce(s) Supporting Document(s) WBC 4.2 10*3/uL (4.1-11.0) [facility] [place] [facility] RBC 3.03 10*6/uL (4.60-6.10) [facility] [place] [facility] HGB 8.4 g/dL (13.5-18.0) [facility] [place] [facility] HCT 25.9 % (41.0-53.0) [facility] [place] [facility] PERFOR[facility] AT [address] [place] [address] MCV 85.3 fL (80.0-95.0) [facility] [place] [facility] MCH 27.5 pg (27.0-32.0) [facility] [place] [facility] MCHC 32.3 g/dL (32.0-36.0) [facility] [place] [facility] RDW 16.0 % (10.5-14.5) [facility] [place] [facility] PLT 147 10*3/uL (150-450) [facility] [place] [facility] MPV 8.5 fL (7.1-10.7) [facility] ID Date Data Source [id number] 02/16/2021 05:27:15 PM EDT [facility] Name Value Range Interpretation Code Description Data Ema rce(s) Supporting Document(s) POC GLUCOSE 159 mg/dL (70-99) [facility] [place] [facility] PERFORMED BY CLINICAL STAFF ID Date Data Source [id number] 02/16/2021 02:11:39 PM EDT [facility] [place] [facility] Name Value Range Interpretation Code Description Data Ema rce(s) Supporting Document(s) SODIUM 141 mmol/L (136-145) [facility] [place] [facility] POTASSIUM 3.7 mmol/L (3.6-5.2) [facility] [place] [facility] CHLORIDE 111 mmol/L (100-108) [facility] [place] [facility] CO2 24 mmol/L (22-31) [facility] [place] [facility] ANION GAP 6 mmol/L (7-16) [facility] [place] [facility] UREA NITROGEN 17 mg/dL (7-24) [facility] [place] [facility] CREATININE 0.84 mg/dL (0.80-1.30) [facility] [place] [facility] BUN/CREAT RATIO 20.2 RATIO (10.0-20.0) [facility] GLUCOSE 157 mg/dL (70-99) [facility] [place] [facility] CALCIUM 9.5 mg/dL (8.4-10.2) [facility] [place] [facility] GFR >60 ml/min/1.73m2 (>59) [facility] [place] [facility] GFR ( AMER) >60 ml/min/1.73m2 (>59) [facility] [place] [facility] GFR INTERPRETATION [facility] --NORMAL KIDNEY FUNCTION OR MILD DISEASE - GFR >OR= 60CHRONIC KIDNEY DISEASE - GFR 15 - 59RENAL FAILURE - GFR <15 Est. GFR calculation based on the MDRDstudy equation, which assumes a steadystate for creatinine. Est. GFR should notbe used for medication dosing. ID Date Data Source [id number] 02/16/2021 01:45:41 PM EDT [facility] [place] [facility] Name Value Range Interpretation Code Description Data Ema rce(s) Supporting Document(s) WBC 3.5 10*3/uL (4.1-11.0) L [facility] [place] [facility] [place] RBC 2.55 10*6/uL (4.60-6.10) L [facility] [place] [facility] HGB 7.0 g/dL (13.5-18.0) L [facility] [place] [facility] [place] HCT 21.6 % (41.0-53.0) L [facility] [place] [facility] [place] PERFORMED AT [address] [facility] [address] MCV 84.4 fL (80.0-95.0) [facility] [place] [facility] [place] MCH 27.4 pg (27.0-32.0) [facility] [place] [facility] [place] MCHC 32.5 g/dL (32.0-36.0) [facility] [place] [facility] [place] RDW 16.4 % (10.5-14.5) H [facility] [place] [facility] [place] PLT 147 10*3/uL (150-450) L [facility] [place] [facility] [place] MPV 8.8 fL (7.1-10.7) [facility] [place] [facility] ID Date Data Source [id number] 02/16/2021 12:12:49 PM EDT [facility] [place] [facility] [place] Name Value Range Interpretation Code Description Data Ema rce(s) Supporting Document(s) POC GLUCOSE 182 mg/dL (70-99) H [facility] [place] [facility] [place] NOTIFIED NURSEPERFORMED BY CLINICAL S TAFF ID Date Data Source [id number] 02/16/2021 08:47:28 AM EDT [facility] [place] [facility] [place] Name Value Range Interpretation Code Description Data Ema rce(s) Supporting Document(s) POC GLUCOSE 141 mg/dL (70-99) H [facility] [place] [facility] [place] PERFORMED BY CLINICAL STAFF ID Date Data Source [id number] 02/16/2021 03:13:38 AM EDT [facility] [place] [facility] [place] Name Value Range Interpretation Code Description Data Ema rce(s) Supporting Document(s) POC GLUCOSE 126 mg/dL (70-99) H [facility] [place] [facility] [place] PERFORMED BY CLINICAL STAFF ID Date Data Source [id number] 02/16/2021 07:25:00 AM EDT [facility] DATE OF EXAM: 1CHEST, SINGLE PO RTABLE VIEW. INDICATION: Chest pain COMPARISON: 11/18/2020 TECHNIQUE: A portable radiograph of the chest was obtained. FINDINGS: No focal consolidation, pleural effusions or pulmonary edema is seen. The cardiomediastinal silhouette is mildly prominent. Visualized osseous structures are within normal limits. IMPRESSION: No acute abnormality is seen. Professional interpretation performed at [facility] .End of diagnostic report for accession: [id number] Interpreted: David Bueno MDTranscribed: 02/16/2021 07:25 AMSigned: 0 02/16/2021 07:25 AM David Bueno MD [facility] # [id number] BILL # [id number] Name Value Range Interpretation Code Description Data Ema rce(s) Supporting Document(s) ID Date Data Source [id number] 02/17/2021 12:48:06 AM EDT [facility] [place] SPEC EXP DATE 02/19/2021ATI ENT ABO/Rh A POSITIVEANTIBODY SCREEN NEGATIVETESTING SITE PERFORMED AT [address] [place], [place] [address]BLOOD BANK COMMENT BLOOD TYPE CONFIRMED.UNIT NUMBER [id number] COMPONENT TYPE LEUKOPOOR RED CELLSUNIT DIVISION 00STATUS OF UNIT TRANSFUSEDTRANSFUSION STATUS OK TO TRANSFUSECROSSMATCH RESULT COMPATIBLE Name Value Range Interpretation Code Description Data Ema rce(s) Supporting Document(s) TYPE AND SCREEN [facility] [place] [facility] [place] PATIENT ABO/Rh A POSITIVE ID Date Data Source [id number] 02/16/2021 12:54:29 AM EDT [facility] [place] [facility] [place] Name Value Range Interpretation Code Description Data Ema rce(s) Supporting Document(s) PT 12.1 s (9.2-11.9) H [facility] [place] PERFORMED AT [address] [place] [address] INR 1.16 [facility] [place] [facility] [place] SUGGESTED THERAPEUTIC RANGES USING INR F ORSTABILIZED ANTICOAGULATED PATIENTS:STANDARD DOSE THERAPY INR 2.0-3.0 DVT, PE, PREVENT DVT OR EMBOLISMHIGH DOSE THERAPY INR 2.5-3.5 PREVENT EMBOLISM FROM MECHANICAL HEART VALVE ID Date Data Source [id number] 02/16/2021 12:44:12 AM EDT [facility] [place] [facility] Name Value Range Interpretation Code Description Data Ema rce(s) Supporting Document(s) TOTAL PROTEIN 6.7 g/dL (6.4-8.2) [facility] [place] [facility] ALBUMIN 2.2 g/dL (3.2-4.5) L [facility] [place] [facility] [place] GLOBULIN 4.5 g/dL (2.7-4.3) H [facility] [place] [facility] [place] ALB/GLOB RATIO 0.5 RATIO [facility] [place] [facility] BILIRUBIN,TOTAL 1.3 mg/dL (0.0-1.0) H [facility] [place] [facility] [place] PLEASE NOTE:Total bilirubin results may be falselyelevated in patients taking Eltrombopag. BILIRUBIN,CONJUGATED 0.4 mg/dL (0.0-0.3) H [facility] [place] [facility] [place] BILIRUBIN,UNCONJ. 0.9 mg/dL (0.0-0.7) H [facility] [place] [facility] [place] ALKALINE PHOSPHATASE 155 U/L (45-117) H [facility] [place] [facility] [place] AST (SGOT) 63 U/L (11-39) H [facility] [place] [facility] [place] ALT (SGPT) 44 U/L (12-78) [facility] [place] [facility] [place] ID Date Data Source [id number] 02/16/2021 12:44:12 AM EDT [facility] [place] [facility] [place] Name Value Range Interpretation Code Description Data Ema rce(s) Supporting Document(s) TROPONIN I <0.05 ng/mL (<0.05) [facility] [place] [facility] [place] Less than 0.05: Myocardial injury unlike lyGreater than or equal to 0.05: Highly suggestive of myocardial injuryCorrelation with rise and/or fall ofserial troponins, clinical symptomsand ECG changes is necessary. ID Date Data Source [id number] 02/16/2021 12:44:12 AM EDT [facility] [place] [facility] Name Value Range Interpretation Code Description Data Ema rce(s) Supporting Document(s) SODIUM 140 mmol/L (136-145) [facility] [place] [facility] [place] POTASSIUM 4.0 mmol/L (3.6-5.2) [facility] [place] [facility] [place] CHLORIDE 112 mmol/L (100-108) H [facility] [place] [facility] [place] CO2 22 mmol/L (22-31) [facility] [place] [facility] [place] ANION GAP 6 mmol/L (7-16) L [facility] [place] [facility] [place] UREA NITROGEN 18 mg/dL (7-24) [facility] [place] [facility] [place] CREATININE 0.83 mg/dL (0.80-1.30) [facility] [place] [facility] [place] BUN/CREAT RATIO 21.7 RATIO (10.0-20.0) H [facility] [place] [facility] [place] GLUCOSE 131 mg/dL (70-99) H [facility] [place] [facility] [place] CALCIUM 9.7 mg/dL (8.4-10.2) [facility] [place] [facility] [place] GFR >60 ml/min/1.73m2 (>59) [facility] [place] [facility] [place] GFR ( AMER) >60 ml/min/1.73m2 (>59) [facility] [place] [facility] [place] GFR INTERPRETATION [facility] [place] [facility] [place] --NORMAL KIDNEY FUNCTION OR MILD DISEASE - GFR >OR= 60CHRONIC KIDNEY DISEASE - GFR 15 - 59RENAL FAILURE - GFR <15 Est. GFR calculation based on the MDRDstudy equation, which assumes a steadystate for creatinine. Est. GFR should notbe used for medication dosing. ID Date Data Source [id number] 02/16/2021 12:28:08 AM EDT [facility] [place] [facility] [place] Name Value Range Interpretation Code Description Data Ema rce(s) Supporting Document(s) WBC 4.4 10*3/uL (4.1-11.0) [facility] [place] [facility] [place] RBC 3.03 10*6/uL (4.60-6.10) L [facility] [place] [facility] [place] HGB 8.2 g/dL (13.5-18.0) L [facility] [place] [facility] [place] HCT 25.3 % (41.0-53.0) L [facility] [place] [facility] [place] MCV 83.7 fL (80.0-95.0) [facility] [place] [facility] [place] MCH 27.0 pg (27.0-32.0) [facility] [place] [facility] [place] MCHC 32.2 g/dL (32.0-36.0) [facility] [place] [facility] [place] RDW 16.2 % (10.5-14.5) H [facility] [place] [facility] [place] PLT 164 10*3/uL (150-450) [facility] [place] [facility] [place] MPV 9.2 fL (7.1-10.7) [facility] [place] [facility] [place] NEUT % 72.8 % (35.0-75.0) [facility] [place] [facility] [place] LYMPH % 8.6 % (16.0-52.0) L [facility] [place] [facility] [place] MONO % 10.8 % (0.0-8.0) H [facility] [place] [facility] [place] EOS % 7.3 % (0.0-5.0) H [facility] [place] [facility] [place] BASO % 0.5 % (0.0-4.0) [facility] [place] [facility] [place] NEUT # 3.2 10*3/uL (1.8-7.7) [facility] [place] [facility] [place] LYMPH # 0.4 10*3/uL (1.2-4.8) L [facility] [place] [facility] [place] MONO # 0.5 10*3/uL (0.0-0.8) [facility] [place] [facility] [place] Eosinophils [#/volume] in Blood by Automated count 0.3 10*3/uL (0.0-0 .5) [facility] [place] [facility] [place] BASO # 0.0 10*3/uL (0.0-0.2) [facility] [place] [facility] [place] ID Date Data Source [id number] 02/17/2021 07:11:40 AM EDT [facility] [place] [facility] SPECIMEN DESCRIPTION URINE, COLLE CTION METHOD NOT SPECIFIEDCULTURE RESULTS NO GROWTHREPORT STATUS FINAL 02/17/2021 Name Value Range Interpretation Code Description Data Ema rce(s) Supporting Document(s) ID Date Data Source [id number] 02/16/2021 01:00:13 AM EDT [facility] [place] [facility] Name Value Range Interpretation Code Description Data Ema rce(s) Supporting Document(s) URINE WBC (0-5) [facility] [place] [facility] URINE RBC (0-2) [facility] [place] [facility] BACTERIA 1+ [HPF] [facility] [place] [facility] MUCUS 1+ [HPF] [facility] [place] [facility] ID Date Data Source [id number] 02/16/2021 12:42:47 AM EDT [facility] [place] [facility] [place] Name Value Range Interpretation Code Description Data Ema rce(s) Supporting Document(s) COLOR [facility] [place] [facility] [place] PERFORMED AT [address] [facility] [address] APPEARANCE [facility] [place] [facility] [place] SPEC GRAV URINE 1.031 (1.003-1.030) H [facility] [place] [facility] [place] PH URINE 6.5 (5.0-7.5) [facility] [place] [facility] [place] LEUK ESTERASE (NEG) A [facility] [place] [facility] [place] NITRITE URINE (NEG) [facility] [place] [facility] [place] PROTEIN URINE (NEG) [facility] [place] [facility] [place] GLUCOSE URINE (NEG) [facility] [place] [facility] [place] KETONE URINE (NEG) [facility] [place] [facility] [place] UROBILINOGEN 0.2 mg/dL (0-1.0) [facility] [place] [facility] [place] BILIRUBIN URINE (NEG) [facility] [place] [facility] [place] BLOOD/HGB URINE 2+ (NEG) A [facility] [place] [facility] [place] ID Date Data Source [id number] 02/15/2021 05:36:00 PM EDT [facility] Name Value Range Interpretation Code Description Data Ema rce(s) Supporting Document(s) SARS coronavirus 2 RNA [Presence] in Res piratory specimen by JUSTEN with probe detection NEGATIVE [facility] This lab was ordered by [facility] a nd reported by [facility]. ID Date Data Source [id number] 02/14/2021 10:27:00 AM EDT [facility] ([facility] Name Value Range Interpretation Code Description Data Ema rce(s) Supporting Document(s) Glucose [Presence] in Urine Laboratory test result [facility] ([facility]) Protein [Presence] in Urine by Test strip 100 mg/dL [facility] ([facility] [place]) Ua Nitrite Laboratory test result [facility] ([facility] [place]) Blood [Presence] in Urine by Visual Laboratory test result [facility] ([facility] [place]) Ua Leuko Laboratory test result [facility] ([facility] [place]) Color of Urine Laboratory test result [facility] ([facility] [place]) Ketones [Presence] in Urine by Test strip Laboratory test result [facility] ([facility]) Clarity of Urine Laboratory test result [facility] ([facility] [place]) Ua Specific [place] 1.025 1.003-1.030 [facility] NT ([facility] [place]) pH of Urine by Test strip 7.0 5.0-7.5 [facility] ([facility]) Bilirubin.total [Presence] in Urine by Test strip Laboratory test res ult [facility] ([facility] [place]) Urobilinogen [Mass/volume] in Urine by Test strip 1.0 E.U./dL 0.0-1.0 [facility] ([facility] [place]) ID Date Data Source [id number] 02/13/2021 05:53:00 PM EDT [facility] Surgical Pathology ReportName: Clyde LINARES OBERTMRN: [id number] Number: [id number] Date: 02/12/2021 00:00Received Date: 02/12/2021 14:16Physician(s): АННА BRAUN MD ADJAPONG, OPOKU, MDSpecimehuy(s) ReceivedA: Material received for consultation, [facility], [id number] HistoryLiver bx ([id number]). Right lobe liver mass. Confirm HCC. Consultation.DiagnosisLIVER, NEEDLE BIOPSY ([id number], 02/07/21): HEPATOCELLULAR CARCINOMA,MODERATELY DIFFERENTIATED. CIRRHOSIS. (See microscopic description).Electronically Signed By Donnie West M.D., Attending Pathologist02/13/2021 17:53:35 Gross DescriptionReceived from [facility] in [place], [place], is 1 H and Estained slide and 6 specially stained slides, 1 paraffin block, [id number], with the corresponding pathology report. Microscopic [...] developed and their performance characteristics determined by [facility] Pathology department. They have not been cleared or approved by the USFood and Drug Administration. The FDA has determined that such clearanceor approval is not necessary. Name Value Range Interpretation Code Description Data Ema rce(s) Supporting Document(s) ID Date Data Source [id number] 01/31/2021 06:21:13 AM EDT [facility] [place] [facility] Name Value Range Interpretation Code Description Data Ema rce(s) Supporting Document(s) SODIUM 139 mmol/L (136-145) [facility] [place] [facility] [place] POTASSIUM 3.7 mmol/L (3.6-5.2) [facility] [place] [facility] [place] CHLORIDE 106 mmol/L (100-108) [facility] [place] [facility] [place] CO2 24 mmol/L (22-31) [facility] [place] [facility] [place] ANION GAP 9 mmol/L (7-16) [facility] [place] [facility] [place] UREA NITROGEN 17 mg/dL (7-24) [facility] [place] [facility] [place] CREATININE 0.95 mg/dL (0.80-1.30) [facility] [place] [facility] [place] BUN/CREAT RATIO 17.9 RATIO (10.0-20.0) [facility] [place] [facility] [place] GLUCOSE 119 mg/dL (70-99) H [facility] [place] [facility] [place] CALCIUM 9.4 mg/dL (8.4-10.2) [facility] [place] [facility] [place] GFR >60 ml/min/1.73m2 (>59) [facility] [place] [facility] [place] GFR ( AMER) >60 ml/min/1.73m2 (>59) [facility] [place] [facility] [place] GFR INTERPRETATION [facility] [place] [facility] [place] --NORMAL KIDNEY FUNCTION OR MILD DISEASE - GFR >OR= 60CHRONIC KIDNEY DISEASE - GFR 15 - 59RENAL FAILURE - GFR <15 Est. GFR calculation based on the MDRDstudy equation, which assumes a steadystate for creatinine. Est. GFR should notbe used for medication dosing. ID Date Data Source [id number] 01/31/2021 05:49:23 AM EDT [place] [facility] Name Value Range Interpretation Code Description Data Ema rce(s) Supporting Document(s) WBC 3.6 10*3/uL (4.1-11.0) L [facility] [place] [facility] [place] RBC 2.70 10*6/uL (4.60-6.10) L [facility] [place] [facility] [place] HGB 7.3 g/dL (13.5-18.0) L [facility] [place] [facility] [place] HCT 22.2 % (41.0-53.0) L [facility] [place] [facility] [place] MCV 82.2 fL (80.0-95.0) [facility] [place] [facility] [place] MCH 27.2 pg (27.0-32.0) [facility] [place] [facility] [place] MCHC 33.1 g/dL (32.0-36.0) [facility] [place] [facility] [place] RDW 16.2 % (10.5-14.5) H [facility] [place] [facility] [place] PLT 178 10*3/uL (150-450) [facility] [place] [facility] [place] MPV 8.2 fL (7.1-10.7) [facility] [place] [facility] ID Date Data Source [id number] 01/31/2021 02:58:00 AM [facility]T [facility] Name Value Range Interpretation Code Description Data Ema rce(s) Supporting Document(s) SARS coronavirus 2 RNA [Presence] in Res piratory specimen by JUSTEN with probe detection NOT DETECTED [facility] This lab was reported by [facility] [place] [facility]. ID Date Data Source [id number] 01/31/2021 03:56:47 AM EDT [facility] [place] [facility] Name Value Range Interpretation Code Description Data Ema rce(s) Supporting Document(s) SPECIMEN DESCRIPTION Lab [place] of [place] INFLUENZA A (NEG) [facility] [place] [facility] ON LICENSE OF [facility] INFLUENZA B (NEG) [facility] [place] [facility] [place] LICENSE OF [facility] RSV (NEG) [facility] [place] [facility] COMMENT [facility] [place] [facility] THE U.[place]. FDA HAS MADE THIS TEST AVAILABL EUNDER AN EMERGENCY USE AUTHORIZATION(EUA) FOR THE DETECTION AND/OR DIAGNOSISOF THE VIRUS THAT CAUSES COVID-19.PERFORMED AT [address] [facility] [address] COVID19 RESULT (NDET) [facility] [place] [facility] THIS ASSAY AMPLIFIES AND DETECTSTHE TARG ET RNA USING REAL-TIME PCR.TESTING PERFORMED ON [employer] GENEXPERTNEGATIVE 2019_NCOV RT-PCR RESULTS DONOT PRECLUDE 2019_NCOV INFECTION ANDSHOULD NOT BE USED THE SOLE BASISFOR PATIENT MANAGEMENT DECISIONS. FIRST TEST [facility] [place] of [place] [employer]PL[employer]ED IN [facility] Lab [place] [facility] [place] SYMPTOMATIC [facility] [place] [facility] [place] DATE OF SYMPT ONSET Lab [place] [place] of [place] HOSPITALIZED [facility] [place] ICU [place] [facility] [place] CONGREGATE CARE SET Lab [place] of [place] [facility] [place] [facility] ID Date Data Source [id number] 01/31/2021 08:36:00 AM EDT [facility] DATE OF EXAM: 01/31/2021XAM: CT [...] above. A contemporaneous report was provided by [facility] at the time of this examination, reporting similar findings. Professional interpretation performed at [facility] .End of diagnostic report for accession: [id number] Interpreted: Shahnaz Ramos MDTranscribed: 01/31/2021 08:23 AMSigned: 01/31/2021 08:36 AM Shahnaz Ramos MD [facility] # [id number] BILL # [id number] Name Value Range Interpretation Code Description Data Ema rce(s) Supporting Document(s) ID Date Data Source [id number] 02/01/2021 09:19:09 AM EDT [facility] [place] [facility] [place] SPECIMEN DESCRIPTION URINE, COLLE CTION METHOD NOT SPECIFIEDCULTURE RESULTS MIXED UROGENITAL DEIRDRE; PLEASE SUBMIT A NEW SPEC IMEN IF CLINICALLY INDICATED.REPORT STATUS FINAL 02/01/2021 Name Value Range Interpretation Code Description Data Ema rce(s) Supporting Document(s) ID Date Data Source [id number] 01/31/2021 12:50:39 AM EDT [facility] [place] [facility] Name Value Range Interpretation Code Description Data Ema rce(s) Supporting Document(s) URINE WBC (0-5) [facility] [place] [facility] [place] URINE RBC (0-2) [facility] [place] [facility] [place] ID Date Data Source [id number] 01/31/2021 12:39:03 AM EDT [facility] [place] [facility] Name Value Range Interpretation Code Description Data Ema rce(s) Supporting Document(s) COLOR [facility] [place] [facility] [place] TESTING PERFORMED ON CENTRIFUGED SAMPLE APPEARANCE [facility] [place] [facility] [place] SPEC GRAV URINE 1.012 (1.003-1.030) [facility] [place] [facility] [place] PH URINE 6.5 (5.0-7.5) [facility] [place] [facility] [place] LEUK ESTERASE 2+ (NEG) A [facility] [place] [facility] [place] NITRITE URINE (NEG) [facility] [place] [facility] [place] PROTEIN URINE 2+ (NEG) A [facility] [place] [facility] [place] GLUCOSE URINE (NEG) [facility] [place] [facility] [place] KETONE URINE (NEG) [facility] [place] [facility] [place] UROBILINOGEN 0.2 mg/dL (0-1.0) [facility] [place] [facility] [place] BILIRUBIN URINE (NEG) [facility] [place] [facility] [place] BLOOD/HGB URINE 3+ (NEG) A [facility] [place] [facility] [place] ID Date Data Source [id number] 01/31/2021 12:42:08 AM EDT [facility] [place] [facility] Name Value Range Interpretation Code Description Data Ema rce(s) Supporting Document(s) SODIUM 137 mmol/L (136-145) [facility] [place] [facility] [place] POTASSIUM 3.7 mmol/L (3.6-5.2) [facility] [place] [facility] [place] CHLORIDE 105 mmol/L (100-108) [facility] [place] [facility] [place] CO2 23 mmol/L (22-31) [facility] [place] [facility] [place] ANION GAP 9 mmol/L (7-16) [facility] [place] [facility] [place] UREA NITROGEN 17 mg/dL (7-24) [facility] [place] [facility] [place] CREATININE 1.02 mg/dL (0.80-1.30) [facility] [place] [facility] [place] BUN/CREAT RATIO 16.7 RATIO (10.0-20.0) [facility] [place] [facility] [place] GLUCOSE 147 mg/dL (70-99) H [facility] [place] [facility] [place] CALCIUM 9.6 mg/dL (8.4-10.2) [facility] [place] [facility] [place] GFR >60 ml/min/1.73m2 (>59) [facility] [place] [facility] [place] GFR ([facility] AM) >60 ml/min/1.73m2 (>59) [facility] [place] [facility] [place] GFR INTERPRETATION [facility] --NORMAL KIDNEY FUNCTION OR MILD DISEASE - GFR >OR= 60CHRONIC KIDNEY DISEASE - GFR 15 - 59RENAL FAILURE - GFR <15 Est. GFR calculation based on the MDRDstudy equation, which assumes a steadystate for creatinine. Est. GFR should notbe used for medication dosing. ID Date Data Source [id number] 01/31/2021 12:29:39 AM EDT [facility] [place] [facility] [place] Name Value Range Interpretation Code Description Data Ema rce(s) Supporting Document(s) WBC 4.0 10*3/uL (4.1-11.0) L [facility] [place] RBC 2.83 10*6/uL (4.60-6.10) L [facility] [place] [facility] [place] HGB 7.6 g/dL (13.5-18.0) L [facility] [place] [facility] [place] HCT 23.2 % (41.0-53.0) L [facility] [place] [facility] [place] MCV 82.1 fL (80.0-95.0) [facility] [place] [facility] [place] MCH 26.9 pg (27.0-32.0) L [facility] [place] [facility] [place] MCHC 32.8 g/dL (32.0-36.0) [facility] [place] [facility] [place] RDW 16.3 % (10.5-14.5) H [facility] [place] [facility] [place] PLT 187 10*3/uL (150-450) [facility] [place] [facility] [place] MPV 8.3 fL (7.1-10.7) [facility] [place] [facility] [place] NEUT % 78.0 % (35.0-75.0) H [facility] [place] [facility] [place] LYMPH % 6.7 % (16.0-52.0) L [facility] [place] [facility] [place] MONO % 9.3 % (0.0-8.0) H [facility] [place] [facility] [place] EOS % 4.4 % (0.0-5.0) [facility] [place] [facility] [place] BASO % 1.6 % (0.0-4.0) [facility] [place] [facility] [place] NEUT # 3.2 10*3/uL (1.8-7.7) [facility] [place] [facility] [place] LYMPH # 0.3 10*3/uL (1.2-4.8) L [facility] [place] [facility] [place] MONO # 0.4 10*3/uL (0.0-0.8) [facility] [place] [facility] [place] Eosinophils [#/volume] in Blood by Automated count 0.2 10*3/uL (0.0-0 .5) [facility] [place] [facility] [place] BASO # 0.1 10*3/uL (0.0-0.2) [facility] [place] [facility] [place] ID Date Data Source PL [id number] 01/11/2021 12:00:00 AM EDT [facility] ([facility]) Name Value Range Interpretation Code Description Data Ema rce(s) Supporting Document(s) PLZ LIVER [facility] ([facility]) ID Date Data Source [id number] 12/05/2020 12:19:00 PM EDT [facility] ([facility] [place] Name Value Range Interpretation Code Description Data Ema rce(s) Supporting Document(s) Specimen Adequacy Laboratory test result [facility] ([facility] [place]) Ileal conduit/neobladder. Clinical History Laboratory test result [facility] ([facility] [place]) BodySite Laboratory test result [facility] ([facility] [place]) Voided - Clean Catch Gross Description Laboratory test result [facility] ([facility] [place]) Received in a specimen container, labele d with the patients name and , is Cloudy Yellow fluid consistent with urine, measuring approximately 15 ml. Microscopic Description Laboratory test result [facility] ([facility] [place]) Moderate numbers of neutrophils present. CPTCode 16801 [facility] ([facility] [place]) Final Diagnosis Laboratory test result [facility] ([facility] [place]) NEGATIVE FOR HIGH-GRADE UROTHELIAL CARCI NOMA. PDF Report Laboratory test result [facility] ([facility] [place]) ID Date Data Source [id number] 12/05/2020 12:19:00 PM EDT [facility] ([facility] [place]) Name Value Range Interpretation Code Description Data Ema rce(s) Supporting Document(s) Cytology report of Urine Cyto stain Laboratory test result [facility] ([facility] [place]) ID Date Data Source [id number] 12/05/2020 11:34:00 AM EDT [facility] ([facility] [place]) Name Value Range Interpretation Code Description Data Ema rce(s) Supporting Document(s) Glucose [Presence] in Urine Laboratory test result [facility] ([facility] [place]) Protein [Presence] in Urine by Test strip 30 mg/dL [facility] ([facility] [place]) Ua Nitrite Laboratory test result [facility] ([facility] [place]) Blood [Presence] in Urine by Visual Laboratory test result [facility] ([facility] [place]) Ua Leuko Laboratory test result [facility] ([facility] [place]) Color of Urine Laboratory test result [facility] ([facility] [place]) Ketones [Presence] in Urine by Test strip Laboratory test result [facility] ([facility] [place]) Clarity of Urine Laboratory test result [facility] ([facility] [place]) Ua Specific [place] 1.010 1.003-1.030 [facility] ([facility] [place]) Bilirubin.total [Presence] in Urine by Test strip Laboratory test res ult [facility] ([facility]) pH of Urine by Test strip 6.5 5.0-7.5 [facility] ([facility]) Urobilinogen [Mass/volume] in Urine by Test strip 0.2 E.U./dL 0.0-1.0 [facility] ([facility] [place]) ID Date Data Source [id number] 11/22/2020 12:44:37 PM EDT [facility] [place] [facility] Name Value Range Interpretation Code Description Data Ema rce(s) Supporting Document(s) POC GLUCOSE 184 mg/dL (70-99) H [facility] [place] of [place] NOTIFIED NURSEPERFORMED BY CLINICAL S TAFF ID Date Data Source [id number] 11/22/2020 07:40:49 AM EDT [facility] [place] [facility] [place] Name Value Range Interpretation Code Description Data Ema rce(s) Supporting Document(s) POC GLUCOSE 124 mg/dL (70-99) H [facility] [place] [facility] [place] NOTIFIED NURSEPERFORMED BY CLINICAL S TAFF ID Date Data Source [id number] 11/22/2020 07:35:48 AM EDT [facility] [place] [facility] Name Value Range Interpretation Code Description Data Ema rce(s) Supporting Document(s) SODIUM 139 mmol/L (136-145) [facility] [place] [facility] [place] POTASSIUM 4.2 mmol/L (3.6-5.2) [facility] [place] [facility] [place] CHLORIDE 113 mmol/L (100-108) H [facility] [place] [facility] [place] CO2 18 mmol/L (22-31) L [facility] [place] [facility] [place] ANION GAP 8 mmol/L (7-16) [facility] [place] [facility] [place] UREA NITROGEN 27 mg/dL (7-24) H [facility] [place] [facility] [place] CREATININE 0.95 mg/dL (0.80-1.30) [facility] [place] [facility] [place] BUN/CREAT RATIO 28.4 RATIO (10.0-20.0) H [facility] [place] [place] GLUCOSE 115 mg/dL (70-99) H [facility] [place] [facility] [place] CALCIUM 8.2 mg/dL (8.4-10.2) L [facility] [place] [facility] [place] GFR >60 ml/min/1.73m2 (>59) [facility] [place] [facility] [place] GFR ( AMER) >60 ml/min/1.73m2 (>59) [facility] [place] [facility] [place] GFR INTERPRETATION [facility] [place] --NORMAL KIDNEY FUNCTION OR MILD DISEASE - GFR >OR= 60CHRONIC KIDNEY DISEASE - GFR 15 - 59RENAL FAILURE - GFR <15 Est. GFR calculation based on the MDRDstudy equation, which assumes a steadystate for creatinine. Est. GFR should notbe used for medication dosing. ID Date Data Source [id number] 11/22/2020 06:58:27 AM EDT [facility] Name Value Range Interpretation Code Description Data Ema rce(s) Supporting Document(s) WBC 5.1 10*3/uL (4.1-11.0) [facility] RBC 2.90 10*6/uL (4.60-6.10) L [facility] HGB 8.1 g/dL (13.5-18.0) [facility] HCT 24.4 % (41.0-53.0) [facility] MCV 84.1 fL (80.0-95.0) [facility] MCH 27.9 pg (27.0-32.0) [facility] MCHC 33.2 g/dL (32.0-36.0) [facility] RDW 16.5 % (10.5-14.5) H [facility] [facility] PLT 125 10*3/uL (150-450) L [facility] MPV 9.3 fL (7.1-10.7) [facility] NEUT % 63.0 % (35.0-75.0) [facility] LYMPH % 11.0 % (16.0-52.0) [facility] MONO % 15.8 % (0.0-8.0) [facility] EOS % 8.3 % (0.0-5.0) [facility] BASO % 1.9 % (0.0-4.0) [facility] NEUT # 3.2 10*3/uL (1.8-7.7) [facility] LYMPH # 0.6 10*3/uL (1.2-4.8) [facility] [place] [facility] MONO # 0.8 10*3/uL (0.0-0.8) [facility] Eosinophils [#/volume] in Blood by Automated count 0.4 10*3/uL (0.0-0 .5) [facility] BASO # 0.1 10*3/uL (0.0-0.2) [facility] ID Date Data Source [id number] 11/21/2020 09:42:27 PM EDT [facility] Name Value Range Interpretation Code Description Data Ema rce(s) Supporting Document(s) POC GLUCOSE 183 mg/dL (70-99) H [facility] NOTIFIED NURSEPERFORMED BY CLINICAL S TAFF ID Date Data Source [id number] 11/21/2020 06:01:55 PM EDT [facility] Name Value Range Interpretation Code Description Data Ema rce(s) Supporting Document(s) POC GLUCOSE 156 mg/dL (70-99) [facility] NOTIFIED NURSEPERFORMED BY CLINICAL S TAFF ID Date Data Source [id number] 11/21/2020 01:53:27 PM EDT [facility] Name Value Range Interpretation Code Description Data Ema rce(s) Supporting Document(s) POC GLUCOSE 137 mg/dL (70-99) [facility] NOTIFIED NURSEPERFORMED BY CLINICAL S TAFF ID Date Data Source [id number] 11/21/2020 08:51:25 AM EDT [facility] Name Value Range Interpretation Code Description Data Ema rce(s) Supporting Document(s) POC GLUCOSE 106 mg/dL (70-99) [facility] PERFORMED BY CLINICAL STAFF ID Date Data Source [id number] 11/21/2020 08:20:09 AM EDT [facility] Name Value Range Interpretation Code Description Data Ema rce(s) Supporting Document(s) POC GLUCOSE 107 mg/dL (70-99) [facility] NOTIFIED NURSEPERFORMED BY CLINICAL S TAFF ID Date Data Source [id number] 11/21/2020 08:40:54 AM EDT [facility] Name Value Range Interpretation Code Description Data Ema rce(s) Supporting Document(s) SODIUM 138 mmol/L (136-145) [facility] POTASSIUM 4.1 mmol/L (3.6-5.2) [facility] CHLORIDE 111 mmol/L (100-108) [facility] CO2 18 mmol/L (22-31) L [facility] ANION GAP 9 mmol/L (7-16) [facility] UREA NITROGEN 39 mg/dL (7-24) [facility] CREATININE 1.87 mg/dL (0.80-1.30) [facility] BUN/CREAT RATIO 20.9 RATIO (10.0-20.0) [facility] GLUCOSE 104 mg/dL (70-99) H [facility] CALCIUM 8.4 mg/dL (8.4-10.2) [facility] GFR 35 ml/min/1.73m2 (>59) L [facility] GFR ( AMER) 42 ml/min/1.73m2 (>59) L [facility] GFR INTERPRETATION [facility] --NORMAL KIDNEY FUNCTION OR MILD DISEASE - GFR >OR= 60CHRONIC KIDNEY DISEASE - GFR 15 - 59RENAL FAILURE - GFR <15 Est. GFR calculation based on the MDRDstudy equation, which assumes a steadystate for creatinine. Est. GFR should notbe used for medication dosing. ID Date Data Source [id number] 11/21/2020 08:19:58 AM EDT [facility] Name Value Range Interpretation Code Description Data Ema rce(s) Supporting Document(s) WBC 5.9 10*3/uL (4.1-11.0) [facility] RBC 2.94 10*6/uL (4.60-6.10) L [facility] HGB 8.3 g/dL (13.5-18.0) L [facility] HCT 24.9 % (41.0-53.0) [facility] [place] [facility] MCV 84.6 fL (80.0-95.0) [facility] MCH 28.1 pg (27.0-32.0) [facility] MCHC 33.2 g/dL (32.0-36.0) [facility] RDW 16.5 % (10.5-14.5) [facility] PLT 123 10*3/uL (150-450) L [facility] MPV 9.1 fL (7.1-10.7) [facility] NEUT % 70.3 % (35.0-75.0) [facility] LYMPH % 6.6 % (16.0-52.0) L [facility] MONO % 14.9 % (0.0-8.0) [facility] EOS % 7.2 % (0.0-5.0) [facility] BASO % 1.0 % (0.0-4.0) [facility] NEUT # 4.2 10*3/uL (1.8-7.7) [facility] LYMPH # 0.4 10*3/uL (1.2-4.8) L [facility] MONO # 0.9 10*3/uL (0.0-0.8) [facility] Eosinophils [#/volume] in Blood by Automated count 0.4 10*3/uL (0.0-0 .5) [facility] BASO # 0.1 10*3/uL (0.0-0.2) [facility] ID Date Data Source [id number] 2020 09:31:54 PM EDT [facility] Name Value Range Interpretation Code Description Data Ema rce(s) Supporting Document(s) POC GLUCOSE 146 mg/dL (70-99) [facility] [place] [facility] NOTIFIED NURSEPERFORMED BY CLINICAL S TAFF ID Date Data Source [id number] 2020 05:20:16 PM EDT [facility] Name Value Range Interpretation Code Description Data Ema rce(s) Supporting Document(s) POC GLUCOSE 131 mg/dL (70-99) [facility] [place] [facility] NOTIFIED NURSEPERFORMED BY CLINICAL S TAFF ID Date Data Source [id number] 2020 11:56:19 AM EDT [facility] Name Value Range Interpretation Code Description Data Ema rce(s) Supporting Document(s) POC GLUCOSE 194 mg/dL (70-99) [facility] NOTIFIED NURSEPERFORMED BY CLINICAL S TAFF ID Date Data Source [id number] 2020 09:15:41 AM EDT [facility] Name Value Range Interpretation Code Description Data Ema rce(s) Supporting Document(s) POC GLUCOSE 107 mg/dL (70-99) H [facility] PERFORMED BY CLINICAL STAFF ID Date Data Source [id number] 2020 03:33:54 PM EDT [facility] Name Value Range Interpretation Code Description Data Ema rce(s) Supporting Document(s) IRON,TOTAL @ 15 ug/dL (35-150) L [facility] UIBC @ 184 ug/dL (130-375) [facility] TIBC @ 199 ug/dL (250-450) L [facility] % SATURATION 8 % (12-50) [facility] ID Date Data Source [id number] 2020 03:33:54 PM EDT [facility] Name Value Range Interpretation Code Description Data Ema rce(s) Supporting Document(s) FERRITIN @ 66 ng/mL (26-388) [facility] ID Date Data Source [id number] 2020 09:16:02 AM EDT [facility] Name Value Range Interpretation Code Description Data Ema rce(s) Supporting Document(s) MAGNESIUM 2.3 mg/dL (1.7-2.4) [facility] ID Date Data Source [id number] 2020 09:16:02 AM EDT [facility] Name Value Range Interpretation Code Description Data Ema rce(s) Supporting Document(s) SODIUM 138 mmol/L (136-145) [facility] POTASSIUM 3.9 mmol/L (3.6-5.2) [facility] CHLORIDE 109 mmol/L (100-108) H [facility] [place] [facility] CO2 21 mmol/L (22-31) L [facility] ANION GAP 8 mmol/L (7-16) [facility] UREA NITROGEN 47 mg/dL (7-24) [facility] CREATININE 2.38 mg/dL (0.80-1.30) H [facility] BUN/CREAT RATIO 19.7 RATIO (10.0-20.0) [facility] GLUCOSE 97 mg/dL (70-99) [facility] CALCIUM 8.3 mg/dL (8.4-10.2) L [facility] [place] [facility] GFR 27 ml/min/1.73m2 (>59) L [facility] GFR ( AMER) 32 ml/min/1.73m2 (>59) L [facility] GFR INTERPRETATION [facility] --NORMAL KIDNEY FUNCTION OR MILD DISEASE - GFR >OR= 60CHRONIC KIDNEY DISEASE - GFR 15 - 59RENAL FAILURE - GFR <15 Est. GFR calculation based on the MDRDstudy equation, which assumes a steadystate for creatinine. Est. GFR should notbe used for medication dosing. ID Date Data Source [id number] 2020 08:35:06 AM EDT [facility] Name Value Range Interpretation Code Description Data Ema rce(s) Supporting Document(s) WBC 7.3 10*3/uL (4.1-11.0) [facility] RBC 3.01 10*6/uL (4.60-6.10) L [facility] HGB 8.5 g/dL (13.5-18.0) L [facility] [place] [facility] HCT 25.3 % (41.0-53.0) L [facility] [place] [facility] MCV 84.2 fL (80.0-95.0) [facility] MCH 28.3 pg (27.0-32.0) [facility] MCHC 33.6 g/dL (32.0-36.0) [facility] RDW 16.0 % (10.5-14.5) [facility] [place] [facility] PLT 119 10*3/uL (150-450) L [facility] MPV 9.5 fL (7.1-10.7) [facility] NEUT % 76.4 % (35.0-75.0) [facility] LYMPH % 5.5 % (16.0-52.0) L [facility] MONO % 11.3 % (0.0-8.0) [facility] EOS % 6.0 % (0.0-5.0) H [facility] BASO % 0.8 % (0.0-4.0) [facility] NEUT # 5.6 10*3/uL (1.8-7.7) [facility] LYMPH # 0.4 10*3/uL (1.2-4.8) L [facility] [place] [facility] MONO # 0.8 10*3/uL (0.0-0.8) [facility] Eosinophils [#/volume] in Blood by Automated count 0.4 10*3/uL (0.0-0 .5) [facility] BASO # 0.1 10*3/uL (0.0-0.2) [facility] ID Date Data Source [id number] 2020 06:43:31 AM EDT [facility] Name Value Range Interpretation Code Description Data Ema rce(s) Supporting Document(s) POC GLUCOSE 96 mg/dL (70-99) [facility] PERFORMED BY CLINICAL STAFF ID Date Data Source [id number] 2020 12:23:25 AM EDT [facility] Name Value Range Interpretation Code Description Data Ema rce(s) Supporting Document(s) POC GLUCOSE 108 mg/dL (70-99) H [facility] [place] [facility] PERFORMED BY CLINICAL STAFF ID Date Data Source [id number] 11/19/2020 06:15:18 PM EDT [facility] Name Value Range Interpretation Code Description Data Ema rce(s) Supporting Document(s) POC GLUCOSE 153 mg/dL (70-99) H [facility] [place] [facility] NOTIFIED NURSEPERFORMED BY CLINICAL S TAFF ID Date Data Source [id number] 2020 07:14:05 AM EDT [facility] Name Value Range Interpretation Code Description Data Ema rce(s) Supporting Document(s) POC GLUCOSE 120 mg/dL (70-99) H [facility] [place] [facility] NOTIFIED NURSEPERFORMED BY CLINICAL S TAFF ID Date Data Source [id number] 11/19/2020 02:25:25 PM EDT [facility] Name Value Range Interpretation Code Description Data Ema rce(s) Supporting Document(s) TOTAL PROTEIN 5.1 g/dL (6.4-8.2) L [facility] [place] [facility] ALBUMIN 1.9 g/dL (3.2-4.5) L [facility] GLOBULIN 3.2 g/dL (2.7-4.3) [facility] ALB/GLOB RATIO 0.6 RATIO [facility] BILIRUBIN,TOTAL 0.7 mg/dL (0.0-1.0) [facility] PLEASE NOTE:Total bilirubin results may be falselyelevated in patients taking Eltrombopag. BILIRUBIN,CONJUGATED 0.3 mg/dL (0.0-0.3) [facility] BILIRUBIN,UNCONJ. 0.4 mg/dL (0.0-0.7) [facility] ALKALINE PHOSPHATASE 63 U/L (45-117) [facility] AST (SGOT) 43 U/L (11-39) H [facility] ALT (SGPT) 21 U/L (12-78) [facility] ID Date Data Source [id number] 11/19/2020 08:23:57 AM EDT [facility] Name Value Range Interpretation Code Description Data Ema rce(s) Supporting Document(s) VANCOMYCIN RANDOM 13.1 ug/mL [facility] THERAPEUTIC RANGE IS ONLY AVAILABLE FOR PEAK AND TROUGH SPECIMENS. RANDOM LEVEL RESULTS MUST BE INTERPRETED BY THE PHYSICIAN. ID Date Data Source [id number] 11/19/2020 08:23:57 AM EDT [facility] Name Value Range Interpretation Code Description Data Ema rce(s) Supporting Document(s) SODIUM 136 mmol/L (136-145) [facility] POTASSIUM 3.7 mmol/L (3.6-5.2) [facility] CHLORIDE 105 mmol/L (100-108) [facility] CO2 19 mmol/L (22-31) L [facility] ANION GAP 12 mmol/L (7-16) [facility] UREA NITROGEN 50 mg/dL (7-24) H [facility] CREATININE 2.59 mg/dL (0.80-1.30) H [facility] BUN/CREAT RATIO 19.3 RATIO (10.0-20.0) [facility] GLUCOSE 89 mg/dL (70-99) [facility] CALCIUM 8.2 mg/dL (8.4-10.2) L [facility] GFR 24 ml/min/1.73m2 (>59) L [facility] GFR ( AMER) 29 ml/min/1.73m2 (>59) L [facility] GFR INTERPRETATION [facility] --NORMAL KIDNEY FUNCTION OR MILD DISEASE - GFR >OR= 60CHRONIC KIDNEY DISEASE - GFR 15 - 59RENAL FAILURE - GFR <15 Est. GFR calculation based on the MDRDstudy equation, which assumes a steadystate for creatinine. Est. GFR should notbe used for medication dosing. ID Date Data Source [id number] 11/19/2020 08:02:08 AM EDT [facility] Name Value Range Interpretation Code Description Data Ema rce(s) Supporting Document(s) WBC 10.1 10*3/uL (4.1-11.0) [facility] RBC 2.79 10*6/uL (4.60-6.10) L [facility] HGB 7.9 g/dL (13.5-18.0) L [facility] HCT 23.6 % (41.0-53.0) L [facility] MCV 84.5 fL (80.0-95.0) [facility] MCH 28.2 pg (27.0-32.0) [facility] MCHC 33.4 g/dL (32.0-36.0) [facility] RDW 16.1 % (10.5-14.5) H [facility] [place] [facility] PLT 104 10*3/uL (150-450) L [facility] MPV 9.2 fL (7.1-10.7) [facility] ID Date Data Source [id number] 11/19/2020 06:17:02 AM EDT [facility] Name Value Range Interpretation Code Description Data Ema rce(s) Supporting Document(s) POC GLUCOSE 108 mg/dL (70-99) H [facility] [place] [facility] PERFORMED BY CLINICAL STAFF ID Date Data Source [id number] 11/19/2020 12:16:43 AM EDT [facility] Name Value Range Interpretation Code Description Data Ema rce(s) Supporting Document(s) POC GLUCOSE 148 mg/dL (70-99) H [facility] [place] [facility] PERFORMED BY CLINICAL STAFF ID Date Data Source [id number] 2020 07:20:38 AM EDT [facility] SPECIMEN DESCRIPTION URINE, COLLE CTION METHOD NOT SPECIFIEDCULTURE RESULTS NO GROWTHREPORT STATUS FINAL 2020 Name Value Range Interpretation Code Description Data Ema rce(s) Supporting Document(s) ID Date Data Source [id number] 11/18/2020 05:46:48 PM EDT [facility] Name Value Range Interpretation Code Description Data Ema rce(s) Supporting Document(s) POC GLUCOSE 180 mg/dL (70-99) H [facility] [place] [facility] NOTIFIED NURSEPERFORMED BY CLINICAL S TAFF ID Date Data Source [id number] 11/18/2020 01:55:22 PM EDT [facility] Name Value Range Interpretation Code Description Data Ema rce(s) Supporting Document(s) POC GLUCOSE 156 mg/dL (70-99) H [facility] [place] [facility] PERFORMED BY CLINICAL STAFF ID Date Data Source [id number] 11/18/2020 01:26:32 PM EDT [facility] Name Value Range Interpretation Code Description Data Ema rce(s) Supporting Document(s) URINE WBC (0-5) [facility] URINE RBC (0-2) [facility] EPITHELIAL CELLS 1+ [HPF] [facility] BACTERIA 1+ [HPF] [facility] WBC CLUMPING 1+ [facility] ID Date Data Source [id number] 11/18/2020 01:14:40 PM EDT [facility] Name Value Range Interpretation Code Description Data Ema rce(s) Supporting Document(s) COLOR [facility] APPEARANCE [facility] SPEC GRAV URINE 1.016 (1.003-1.030) [facility] PH URINE 5.5 (5.0-7.5) [facility] LEUK ESTERASE 3+ (NEG) A [facility] NITRITE URINE (NEG) [facility] PROTEIN URINE 1+ (NEG) A [facility] [place] GLUCOSE URINE (NEG) [facility] [place] KETONE URINE (NEG) [facility] [place] UROBILINOGEN 0.2 mg/dL (0-1.0) [facility] BILIRUBIN URINE (NEG) [facility] BLOOD/HGB URINE 3+ (NEG) A [facility] [place] ID Date Data Source [id number] 11/21/2020 10:04:31 AM EDT [facility] SPECIMEN DESCRIPTION PERIPHERALSP ECIAL REQUESTS NONEGRAM STAIN GRAM NEGATIVE RODSALERTED CRITICAL RESULT TO DOREEN LIPSCOMB 5SIR @ 0940 11/19/2020 [place] [id number] CULTURE RESULTS PSEUDOMONAS AERUGINOSA PSEUDOMONAS AERUGINOSA BY [...] rce(s) Supporting Document(s) ID Date Data Source [id number] 11/23/2020 11:15:10 AM EDT [facility] SPECIMEN DESCRIPTION PERIPHERALSP ECIAL REQUESTS NONECULTURE RESULTS NO GROWTH 5 DAYSREPORT STATUS FINAL 11/23/2020 Name Value Range Interpretation Code Description Data Ema rce(s) Supporting Document(s) ID Date Data Source [id number] 11/18/2020 09:33:00 AM EDT [facility] DATE OF EXAM: 11/18/2020XAM: Ultrasound vascular: [...] left Stevens's cyst. Professional interpretation performed at [facility] .End of diagnostic report for accession: [id number] Interpreted: Charbel Vizcaino MDTranscribed: 11/18/2020 09:32 AMSigned: 11/18/2020 09:33 AM Charbel Vizcaino MD [facility] # [id number] BILL # [id number] Name Value Range Interpretation Code Description Data Ema rce(s) Supporting Document(s) ID Date Data Source [id number] 11/18/2020 07:03:40 AM EDT [facility] [place] [facility] Name Value Range Interpretation Code Description Data Ema rce(s) Supporting Document(s) POC GLUCOSE 117 mg/dL (70-99) H [facility] [place] [facility] PERFORMED BY CLINICAL STAFF ID Date Data Source [id number] 11/18/2020 07:24:24 AM EDT [facility] [place] [facility] Name Value Range Interpretation Code Description Data Ema rce(s) Supporting Document(s) MAGNESIUM 2.2 mg/dL (1.7-2.4) [facility] [place] [facility] ID Date Data Source [id number] 11/18/2020 07:24:24 AM EDT [facility] Name Value Range Interpretation Code Description Data Ema rce(s) Supporting Document(s) NT PRO BNP 223 pg/mL (0-450) [facility] [place] [facility] ID Date Data Source [id number] 11/18/2020 07:24:24 AM EDT [facility] [place] [facility] [place] Name Value Range Interpretation Code Description Data Ema rce(s) Supporting Document(s) TROPONIN I <0.05 ng/mL (<0.05) [facility] [place] [facility] Less than 0.05: Myocardial injury unlike lyGreater than or equal to 0.05: Highly suggestive of myocardial injuryCorrelation with rise and/or fall ofserial troponins, clinical symptomsand ECG changes is necessary. ID Date Data Source [id number] 11/18/2020 07:24:24 AM EDT [facility] [place] [facility] [place] Name Value Range Interpretation Code Description Data Ema rce(s) Supporting Document(s) SODIUM 137 mmol/L (136-145) [facility] [place] [facility] POTASSIUM 4.1 mmol/L (3.6-5.2) [facility] [place] [facility] CHLORIDE 105 mmol/L (100-108) [facility] [place] [facility] CO2 25 mmol/L (22-31) [facility] [place] [facility] ANION GAP 7 mmol/L (7-16) [facility] [place] [facility] UREA NITROGEN 50 mg/dL (7-24) H [facility] [place] [facility] CREATININE 2.22 mg/dL (0.80-1.30) H [facility] [place] [facility] BUN/CREAT RATIO 22.5 RATIO (10.0-20.0) H [facility] GLUCOSE 127 mg/dL (70-99) H [facility] [place] [facility] CALCIUM 9.3 mg/dL (8.4-10.2) [facility] [place] [facility] GFR 29 ml/min/1.73m2 (>59) L [facility] [place] [facility] GFR ( AMER) 35 ml/min/1.73m2 (>59) L [facility] [place] [facility] GFR [facility]TATION [facility] --NORMAL KIDNEY FUNCTION OR MILD DISEASE - GFR >OR= 60CHRONIC KIDNEY DISEASE - GFR 15 - 59RENAL FAILURE - GFR <15 Est. GFR calculation based on the MDRDstudy equation, which assumes a steadystate for creatinine. Est. GFR should notbe used for medication dosing. ID Date Data Source [id number] 11/18/2020 06:53:47 AM EDT [facility] [place] [facility] Name Value Range Interpretation Code Description Data Ema rce(s) Supporting Document(s) WBC 3.7 10*3/uL (4.1-11.0) L [facility] [place] [facility] RBC 3.44 10*6/uL (4.60-6.10) L [facility] [place] [facility] HGB 9.6 g/dL (13.5-18.0) L [facility] [place] [facility] HCT 29.1 % (41.0-53.0) L [facility] [place] [facility] MCV 84.5 fL (80.0-95.0) [facility] [place] [facility] MCH 27.9 pg (27.0-32.0) [facility] [place] [facility] MCHC 33.1 g/dL (32.0-36.0) [facility] [place] [facility] RDW 16.2 % (10.5-14.5) H [facility] [place] [facility] PLT 116 10*3/uL (150-450) L [facility] [place] [facility] MPV 8.9 fL (7.1-10.7) [facility] [place] [facility] NEUT % 92.1 % (35.0-75.0) H [facility] [place] [facility] LYMPH % 3.1 % (16.0-52.0) L [facility] [place] [facility] MONO % 2.5 % (0.0-8.0) [facility] [place] [facility] EOS % 2.1 % (0.0-5.0) [facility] [place] [facility] BASO % 0.2 % (0.0-4.0) [facility] [place] [facility] NEUT # 3.4 10*3/uL (1.8-7.7) [facility] [place] [facility] LYMPH # 0.1 10*3/uL (1.2-4.8) L [facility] [place] [facility] MONO # 0.1 10*3/uL (0.0-0.8) [facility] [place] [facility] Eosinophils [#/volume] in Blood by Automated count 0.1 10*3/uL (0.0-0 .5) [facility] [place] [facility] BASO # 0.0 10*3/uL (0.0-0.2) [facility] [place] [facility] ID Date Data Source [id number] 11/18/2020 07:02:00 AM EDT [facility] Name Value Range Interpretation Code Description Data Ema rce(s) Supporting Document(s) LACTIC ACID 1.9 mmol/L (0.4-2.0) [facility] [place] [facility] [place] ID Date Data Source [id number] 11/18/2020 08:13:00 AM EDT [facility] DATE OF EXAM: 11/18/2020XAM: Portable c hest INDICATION: DYSPNEA COMPARISON: 02/18/2011 TECHNIQUE: AP upright. There is a limited degree of inspiration with mild accentuation of the pulmonary vascular markings. No focal area of pneumonia or atelectasis is seen. The mediastinum, heart, and pulmonary vascularity are within normal limits. IMPRESSION: No acute disease. Professional interpretation performed at [facility] .End of diagnostic report for accession: [id number] Interpreted: Charbel Vizcaino MDTranscribed: 11/18/2020 08:12 AMSigned: 11/18/2020 08:13 AM Charbel Vizcaino MD [facility] # [id number] [facility] # [id number] Name Value Range Interpretation Code Description Data Ema rce(s) Supporting Document(s) ID Date Data Source [id number] 11/18/2020 12:01:07 AM EDT [facility] [place] [facility] Name Value Range Interpretation Code Description Data Ema rce(s) Supporting Document(s) POC GLUCOSE 156 mg/dL (70-99) H [facility] [place] [facility] PERFORMED BY CLINICAL STAFF ID Date Data Source [id number] 11/17/2020 05:55:37 PM EDT [facility] [place] [facility] Name Value Range Interpretation Code Description Data Ema rce(s) Supporting Document(s) POC GLUCOSE 137 mg/dL (70-99) H [facility] [place] [facility] NOTIFIED NURSEPERFORMED BY CLINICAL S TAFF ID Date Data Source [id number] 11/17/2020 12:25:31 PM EDT [facility] [place] [facility] Name Value Range Interpretation Code Description Data Ema rce(s) Supporting Document(s) POC GLUCOSE 131 mg/dL (70-99) H [facility] [place] [facility] NOTIFIED NURSEPERFORMED BY CLINICAL S TAFF ID Date Data Source [id number] 11/17/2020 08:55:54 AM EDT [facility] [place] [facility] Name Value Range Interpretation Code Description Data Ema rce(s) Supporting Document(s) SODIUM 141 mmol/L (136-145) [facility] [place] [facility] POTASSIUM 4.1 mmol/L (3.6-5.2) [facility] [place] [facility] CHLORIDE 109 mmol/L (100-108) H [facility] [place] [facility] CO2 23 mmol/L (22-31) [facility] [place] [facility] ANION GAP 9 mmol/L (7-16) [facility] [place] [facility] UREA NITROGEN 51 mg/dL (7-24) H [facility] [place] [facility] CREATININE 2.05 mg/dL (0.80-1.30) H [facility] [place] [facility] BUN/CREAT RATIO 24.9 RATIO (10.0-20.0) H [facility] GLUCOSE 107 mg/dL (70-99) H [facility] [place] [facility] CALCIUM 9.2 mg/dL (8.4-10.2) [facility] [place] [facility] GFR 32 ml/min/1.73m2 (>59) L [facility] [place] [facility] GFR ( AMER) 38 ml/min/1.73m2 (>59) L [facility] [place] [facility] GFR INTERPRETATION [facility] --NORMAL KIDNEY FUNCTION OR MILD DISEASE - GFR >OR= 60CHRONIC KIDNEY DISEASE - GFR 15 - 59RENAL FAILURE - GFR <15 Est. GFR calculation based on the MDRDstudy equation, which assumes a steadystate for creatinine. Est. GFR should notbe used for medication dosing. ID Date Data Source [id number] 11/17/2020 08:35:35 AM EDT [facility] Name Value Range Interpretation Code Description Data Ema rce(s) Supporting Document(s) WBC 4.5 10*3/uL (4.1-11.0) [facility] RBC 3.11 10*6/uL (4.60-6.10) [facility] HGB 8.5 g/dL (13.5-18.0) [facility] HCT 26.5 % (41.0-53.0) [facility] MCV 85.3 fL (80.0-95.0) [facility] MCH 27.4 pg (27.0-32.0) [facility] MCHC 32.1 g/dL (32.0-36.0) [facility] RDW 16.2 % (10.5-14.5) [facility] PLT 102 10*3/uL (150-450) [facility] MPV 9.4 fL (7.1-10.7) [facility] NEUT % 77.2 % (35.0-75.0) [facility] LYMPH % 7.2 % (16.0-52.0) [facility] MONO % 10.8 % (0.0-8.0) [facility] EOS % 4.3 % (0.0-5.0) [facility] BASO % 0.5 % (0.0-4.0) [facility] NEUT # 3.5 10*3/uL (1.8-7.7) [facility] LYMPH # 0.3 10*3/uL (1.2-4.8) [facility] MONO # 0.5 10*3/uL (0.0-0.8) [facility] Eosinophils [#/volume] in Blood by Automated count 0.2 10*3/uL (0.0-0 .5) [facility] BASO # 0.0 10*3/uL (0.0-0.2) [facility] ID Date Data Source [id number] 11/17/2020 05:32:32 AM EDT [facility] Name Value Range Interpretation Code Description Data Ema rce(s) Supporting Document(s) POC GLUCOSE 112 mg/dL (70-99) [facility] NOTIFIED NURSEPERFORMED BY CLINICAL S TAFF ID Date Data Source [id number] 11/17/2020 03:04:02 AM EDT [facility] Name Value Range Interpretation Code Description Data Ema rce(s) Supporting Document(s) STOOL OCCULT BLOOD (NEG) [facility] ID Date Data Source [id number] 11/17/2020 12:19:03 AM EDT [facility] Name Value Range Interpretation Code Description Data Ema rce(s) Supporting Document(s) POC GLUCOSE 134 mg/dL (70-99) [facility] NOTIFIED NURSEPERFORMED BY CLINICAL S TAFF ID Date Data Source [id number] 11/16/2020 06:51:12 PM EDT [facility] Name Value Range Interpretation Code Description Data Ema rce(s) Supporting Document(s) POC GLUCOSE 120 mg/dL (70-99) [facility] PERFORMED BY CLINICAL STAFF ID Date Data Source [id number] 11/16/2020 06:47:00 PM EDT [facility] DATE OF EXAM: 1CT ABDOMEN AND [...] position. X7End of diagnostic report for accession: [id number] Interpreted: Charbel Kilpatrick MDTranscribed: 11/16/2020 06:41 PMSigned: 11/16/2020 06:47 PM Charbel Kilpatrick MD ------- [facility] # [id number] BILL # [id number] Name Value Range Interpretation Code Description Data Ema rce(s) Supporting Document(s) ID Date Data Source [id number] 11/16/2020 01:15:02 PM EDT [facility] [place] [facility] Name Value Range Interpretation Code Description Data Ema rce(s) Supporting Document(s) FLUID CREATININE 1.75 mg/dL [facility] [place] [facility] ID Date Data Source [id number] 11/16/2020 12:52:45 PM EDT [facility] [place] [facility] Name Value Range Interpretation Code Description Data Ema rce(s) Supporting Document(s) FLUID SOURCE [facility] [place] [facility] [place] ID Date Data Source [id number] 11/16/2020 12:25:11 PM EDT [facility] Name Value Range Interpretation Code Description Data Ema rce(s) Supporting Document(s) POC GLUCOSE 149 mg/dL (70-99) H [facility] [place] [facility] PERFORMED BY CLINICAL STAFF ID Date Data Source [id number] 11/16/2020 01:18:38 PM EDT [facility] [place] [facility] Name Value Range Interpretation Code Description Data Ema rce(s) Supporting Document(s) SODIUM 142 mmol/L (136-145) [facility] [place] [facility] POTASSIUM 3.9 mmol/L (3.6-5.2) [facility] [place] [facility] CHLORIDE 109 mmol/L (100-108) H [facility] [place] [facility] CO2 27 mmol/L (22-31) [facility] ANION GAP 6 mmol/L (7-16) L [facility] UREA NITROGEN 48 mg/dL (7-24) H [facility] [place] [facility] CREATININE 1.97 mg/dL (0.80-1.30) H [facility] BUN/CREAT RATIO 24.4 RATIO (10.0-20.0) H [facility] GLUCOSE 149 mg/dL (70-99) H [facility] [place] [facility] CALCIUM 9.4 mg/dL (8.4-10.2) [facility] TOTAL PROTEIN 6.5 g/dL (6.4-8.2) [facility] ALBUMIN 2.5 g/dL (3.2-4.5) L [facility] [place] [facility] GLOBULIN 4.0 g/dL (2.7-4.3) [facility] [place] [facility] ALB/GLOB RATIO 0.6 RATIO [facility] [place] [facility] ALKALINE PHOSPHATASE 72 U/L (45-117) [facility] BILIRUBIN,TOTAL 0.7 mg/dL (0.0-1.0) [facility] [place] [facility] PLEASE NOTE:Total bilirubin results may be falselyelevated in patients taking Eltrombopag. AST (SGOT) 33 U/L (11-39) [facility] [place] [facility] ALT (SGPT) 13 U/L (12-78) [facility] [place] [facility] GFR 33 ml/min/1.73m2 (>59) L [facility] [place] [facility] GFR ( AMER) 40 ml/min/1.73m2 (>59) L [facility] [place] [facility] GFR INTERPRETATION [facility] --NORMAL KIDNEY FUNCTION OR MILD DISEASE - GFR >OR= 60CHRONIC KIDNEY DISEASE - GFR 15 - 59RENAL FAILURE - GFR <15 Est. GFR calculation based on the MDRDstudy equation, which assumes a steadystate for creatinine. Est. GFR should notbe used for medication dosing. ID Date Data Source [id number] 11/16/2020 12:50:19 PM EDT [facility] [place] [facility] Name Value Range Interpretation Code Description Data Ema rce(s) Supporting Document(s) WBC 6.5 10*3/uL (4.1-11.0) [facility] [place] [facility] RBC 3.22 10*6/uL (4.60-6.10) L [facility] [place] [facility] HGB 8.9 g/dL (13.5-18.0) L [facility] [place] [facility] HCT 27.3 % (41.0-53.0) L [facility] [place] [facility] MCV 84.7 fL (80.0-95.0) [facility] [place] [facility] MCH 27.6 pg (27.0-32.0) [facility] [place] [facility] MCHC 32.6 g/dL (32.0-36.0) [facility] [place] [facility] RDW 16.3 % (10.5-14.5) H [facility] [place] [facility] PLT 102 10*3/uL (150-450) L [facility] [place] [facility] MPV 8.9 fL (7.1-10.7) [facility] [place] [facility] NEUT % 84.9 % (35.0-75.0) H [facility] [place] [facility] LYMPH % 3.8 % (16.0-52.0) L [facility] [place] [facility] MONO % 9.5 % (0.0-8.0) H [facility] [place] [facility] EOS % 1.7 % (0.0-5.0) [facility] [place] [facility] BASO % 0.1 % (0.0-4.0) [facility] [place] [facility] NEUT # 5.5 10*3/uL (1.8-7.7) [facility] [place] [facility] LYMPH # 0.2 10*3/uL (1.2-4.8) L [facility] [place] [facility] MONO # 0.6 10*3/uL (0.0-0.8) [facility] [place] [facility] Eosinophils [#/volume] in Blood by Automated count 0.1 10*3/uL (0.0-0 .5) [facility] [place] [facility] BASO # 0.0 10*3/uL (0.0-0.2) [facility] [place] [facility] ID Date Data Source [id number] 11/16/2020 07:25:10 AM EDT [facility] [place] [facility] Name Value Range Interpretation Code Description Data Ema rce(s) Supporting Document(s) SODIUM 142 mmol/L (136-145) [facility] [place] [facility] POTASSIUM 4.4 mmol/L (3.6-5.2) [facility] [place] [facility] CHLORIDE 111 mmol/L (100-108) H [facility] [place] [facility] CO2 25 mmol/L (22-31) [facility] [place] [facility] ANION GAP 6 mmol/L (7-16) L [facility] [place] [facility] UREA NITROGEN 48 mg/dL (7-24) H [facility] [place] [facility] CREATININE 1.86 mg/dL (0.80-1.30) H [facility] [place] [facility] BUN/CREAT RATIO 25.8 RATIO (10.0-20.0) H [facility] GLUCOSE 142 mg/dL (70-99) H [facility] [place] [facility] CALCIUM 9.5 mg/dL (8.4-10.2) [facility] [place] [facility] GFR 35 ml/min/1.73m2 (>59) L [facility] [place] [facility] GFR ( AMER) 43 ml/min/1.73m2 (>59) L [facility] [place] [facility] GFR INTERPRETATION [facility] --NORMAL KIDNEY FUNCTION OR MILD DISEASE - GFR >OR= 60CHRONIC KIDNEY DISEASE - GFR 15 - 59RENAL FAILURE - GFR <15 Est. GFR calculation based on the MDRDstudy equation, which assumes a steadystate for creatinine. Est. GFR should notbe used for medication dosing. ID Date Data Source [id number] 11/16/2020 06:44:48 AM EDT [facility] [place] [facility] Name Value Range Interpretation Code Description Data Ema rce(s) Supporting Document(s) WBC 6.0 10*3/uL (4.1-11.0) [facility] [place] [facility] RBC 3.20 10*6/uL (4.60-6.10) L [facility] [place] [facility] HGB 9.2 g/dL (13.5-18.0) L [facility] [place] [facility] HCT 27.4 % (41.0-53.0) L [facility] [place] [facility] MCV 85.5 fL (80.0-95.0) [facility] [place] [facility] MCH 28.6 pg (27.0-32.0) [facility] [place] [facility] MCHC 33.4 g/dL (32.0-36.0) [facility] [place] [facility] RDW 16.3 % (10.5-14.5) H [facility] [place] [facility] PLT 92 10*3/uL (150-450) L [facility] [place] [facility] MPV 9.2 fL (7.1-10.7) [facility] [place] [facility] NEUT % 82.5 % (35.0-75.0) H [facility] [place] [facility] LYMPH % 3.8 % (16.0-52.0) L [facility] [place] [facility] MONO % 11.3 % (0.0-8.0) H [facility] [place] [facility] EOS % 2.2 % (0.0-5.0) [facility] [place] [facility] BASO % 0.2 % (0.0-4.0) [facility] [place] [facility] NEUT # 5.0 10*3/uL (1.8-7.7) [facility] [place] [facility] LYMPH # 0.2 10*3/uL (1.2-4.8) L [facility] [place] [facility] MONO # 0.7 10*3/uL (0.0-0.8) [facility] [place] [facility] Eosinophils [#/volume] in Blood by Automated count 0.1 10*3/uL (0.0-0 .5) [facility] [place] [facility] BASO # 0.0 10*3/uL (0.0-0.2) [facility] [place] [facility] ID Date Data Source [id number] 11/16/2020 06:06:03 AM EDT [facility] [place] [facility] Name Value Range Interpretation Code Description Data Ema rce(s) Supporting Document(s) POC GLUCOSE 141 mg/dL (70-99) H [facility] [place] [facility] NOTIFIED NURSEPERFORMED BY CLINICAL S TAFF ID Date Data Source [id number] 11/16/2020 12:07:42 AM EDT [facility] [place] [facility] Name Value Range Interpretation Code Description Data Ema rce(s) Supporting Document(s) POC GLUCOSE 134 mg/dL (70-99) H [facility] [place] [facility] NOTIFIED NURSEPERFORMED BY CLINICAL S TAFF ID Date Data Source [id number] 11/15/2020 06:20:11 PM EDT [facility] [place] [facility] Name Value Range Interpretation Code Description Data Ema rce(s) Supporting Document(s) POC GLUCOSE 155 mg/dL (70-99) H [facility] [place] [facility] NOTIFIED NURSEPERFORMED BY CLINICAL S TAFF ID Date Data Source [id number] 11/15/2020 12:38:28 PM EDT [facility] [place] [facility] Name Value Range Interpretation Code Description Data Ema rce(s) Supporting Document(s) POC GLUCOSE 160 mg/dL (70-99) H [facility] [place] [facility] NOTIFIED NURSEPERFORMED BY CLINICAL S TAFF ID Date Data Source [id number] 11/15/2020 12:50:54 PM EDT [facility] [place] [facility] Name Value Range Interpretation Code Description Data Ema rce(s) Supporting Document(s) SODIUM 141 mmol/L (136-145) [facility] [place] [facility] POTASSIUM 4.1 mmol/L (3.6-5.2) [facility] [place] [facility] CHLORIDE 108 mmol/L (100-108) [facility] [place] [facility] CO2 26 mmol/L (22-31) [facility] [place] [facility] ANION GAP 7 mmol/L (7-16) [facility] [place] [facility] UREA NITROGEN 36 mg/dL (7-24) H [facility] [place] [facility] CREATININE 1.68 mg/dL (0.80-1.30) H [facility] [place] [facility] BUN/CREAT RATIO 21.4 RATIO (10.0-20.0) H [facility] GLUCOSE 152 mg/dL (70-99) H [facility] [place] [facility] CALCIUM 9.7 mg/dL (8.4-10.2) [facility] [place] [facility] TOTAL PROTEIN 6.5 g/dL (6.4-8.2) [facility] [place] [facility] ALBUMIN 2.7 g/dL (3.2-4.5) L [facility] [place] [facility] GLOBULIN 3.8 g/dL (2.7-4.3) [facility] [place] [facility] ALB/GLOB RATIO 0.7 RATIO [facility] [place] [facility] ALKALINE PHOSPHATASE 72 U/L (45-117) [facility] BILIRUBIN,TOTAL 0.7 mg/dL (0.0-1.0) [facility] [place] [facility] PLEASE NOTE:Total bilirubin results may be falselyelevated in patients taking Eltrombopag. AST (SGOT) 31 U/L (11-39) [facility] [place] [facility] ALT (SGPT) 18 U/L (12-78) [facility] [place] [facility] GFR 40 ml/min/1.73m2 (>59) L [facility] [place] [facility] GFR ( AMER) 48 ml/min/1.73m2 (>59) L [facility] [place] [facility] GFR INTERPRETATION [facility] --NORMAL KIDNEY FUNCTION OR MILD DISEASE - GFR >OR= 60CHRONIC KIDNEY DISEASE - GFR 15 - 59RENAL FAILURE - GFR <15 Est. GFR calculation based on the MDRDstudy equation, which assumes a steadystate for creatinine. Est. GFR should notbe used for medication dosing. ID Date Data Source [id number] 11/15/2020 12:11:25 PM EDT [facility] [place] [facility] Name Value Range Interpretation Code Description Data Ema rce(s) Supporting Document(s) WBC 7.9 10*3/uL (4.1-11.0) [facility] [place] [facility] RBC 3.22 10*6/uL (4.60-6.10) L [facility] [place] [facility] HGB 9.0 g/dL (13.5-18.0) L [facility] [place] [facility] HCT 27.3 % (41.0-53.0) L [facility] [place] [facility] MCV 84.8 fL (80.0-95.0) [facility] [place] [facility] MCH 28.1 pg (27.0-32.0) [facility] [place] [facility] MCHC 33.1 g/dL (32.0-36.0) [facility] [place] [facility] RDW 16.1 % (10.5-14.5) H [facility] [place] [facility] PLT 112 10*3/uL (150-450) L [facility] [place] [facility] MPV 9.3 fL (7.1-10.7) [facility] [place] [facility] ID Date Data Source [id number] 11/15/2020 05:46:43 AM EDT [facility] [place] [facility] Name Value Range Interpretation Code Description Data Ema rce(s) Supporting Document(s) POC GLUCOSE 156 mg/dL (70-99) H [facility] [place] [facility] NOTIFIED NURSEPERFORMED BY CLINICAL S TAFF ID Date Data Source [id number] 11/15/2020 12:06:03 AM EDT [facility] [place] [facility] Name Value Range Interpretation Code Description Data Ema rce(s) Supporting Document(s) POC GLUCOSE 153 mg/dL (70-99) H [facility] [place] [facility] [place] NOTIFIED NURSEPERFORMED BY CLINICAL S TAFF ID Date Data Source [id number] 11/14/2020 08:19:00 PM EDT [facility] DATE OF EXAM: 11/14/2020XAM: ABDOMINAL X-RAY. HISTORY: STENT TECHNIQUE: Single supine view the abdomen is obtained. Portions of the upper abdomen are excluded from the image [id number]. COMPARISON: Abdominal x-ray dated 02/18/2011. CT abdomen [...] bilateral hip osteoarthritis. Professional interpretation performed at [facility] .End of diagnostic report for accession: [id number] Interpreted: Marielena Simmons MDTranscribed: 11/14/2020 08:17 PMSigned: 11/14/2020 08:19 PM Marielena Simmons MD [facility] # [id number] BILL # [id number] Name Value Range Interpretation Code Description Data Ema rce(s) Supporting Document(s) ID Date Data Source [id number] 11/14/2020 06:01:30 PM EDT [facility] [place] [facility] [place] Name Value Range Interpretation Code Description Data Ema rce(s) Supporting Document(s) POC GLUCOSE 147 mg/dL (70-99) H [facility] [place] [facility] [place] PERFORMED BY CLINICAL STAFF ID Date Data Source [id number] 11/14/2020 11:20:05 AM EDT [facility] Name Value Range Interpretation Code Description Data Ema rce(s) Supporting Document(s) POC GLUCOSE 182 mg/dL (70-99) H [facility] [place] [facility] NOTIFIED NURSEPERFORMED BY DARYN S KIRK ID Date Data Source [id number] 11/14/2020 08:29:58 AM EDT [facility] [place] [facility] Name Value Range Interpretation Code Description Data Ema rce(s) Supporting Document(s) SODIUM 143 mmol/L (136-145) [facility] [place] [facility] POTASSIUM 4.7 mmol/L (3.6-5.2) [facility] [place] [facility] CHLORIDE 112 mmol/L (100-108) H [facility] [place] [facility] CO2 24 mmol/L (22-31) [facility] [place] [facility] ANION GAP 7 mmol/L (7-16) [facility] [place] [facility] UREA NITROGEN 22 mg/dL (7-24) [facility] [place] [facility] CREATININE 1.09 mg/dL (0.80-1.30) [facility] [place] [facility] BUN/CREAT RATIO 20.2 RATIO (10.0-20.0) H [facility] GLUCOSE 201 mg/dL (70-99) H [facility] [place] [facility] CALCIUM 9.9 mg/dL (8.4-10.2) [facility] [place] [facility] GFR >60 ml/min/1.73m2 (>59) [facility] [place] [facility] GFR ( AMER) >60 ml/min/1.73m2 (>59) [facility] [place] [facility] GFR INTERPRETATION [facility] --NORMAL KIDNEY FUNCTION OR MILD DISEASE - GFR >OR= 60CHRONIC KIDNEY DISEASE - GFR 15 - 59RENAL FAILURE - GFR <15 Est. GFR calculation based on the MDRDstudy equation, which assumes a steadystate for creatinine. Est. GFR should notbe used for medication dosing. ID Date Data Source [id number] 11/14/2020 08:10:07 AM EDT [facility] [place] [facility] Name Value Range Interpretation Code Description Data Ema rce(s) Supporting Document(s) WBC 7.7 10*3/uL (4.1-11.0) [facility] [place] [facility] RBC 3.25 10*6/uL (4.60-6.10) L [facility] [place] [facility] HGB 9.3 g/dL (13.5-18.0) L [facility] [place] [facility] HCT 28.2 % (41.0-53.0) L [facility] [place] [facility] MCV 86.7 fL (80.0-95.0) [facility] [place] [facility] MCH 28.5 pg (27.0-32.0) [facility] [place] [facility] MCHC 32.9 g/dL (32.0-36.0) [facility] [place] [facility] RDW 16.6 % (10.5-14.5) H [facility] [place] [facility] PLT 113 10*3/uL (150-450) L [facility] [place] [facility] MPV 9.4 fL (7.1-10.7) [facility] [place] [facility] ID Date Data Source [id number] 11/14/2020 06:02:40 AM EDT [facility] [place] [facility] Name Value Range Interpretation Code Description Data Ema rce(s) Supporting Document(s) POC GLUCOSE 199 mg/dL (70-99) H [facility] [place] [facility] PERFORMED BY CLINICAL STAFF ID Date Data Source [id number] 11/13/2020 09:40:55 PM EDT [facility] [place] [facility] [place] Name Value Range Interpretation Code Description Data Ema rce(s) Supporting Document(s) POC GLUCOSE 171 mg/dL (70-99) H [facility] [place] [facility] PERFORMED BY CLINICAL STAFF ID Date Data Source [id number] 11/13/2020 08:27:01 PM EDT [facility] [place] [facility] [place] Name Value Range Interpretation Code Description Data Ema rce(s) Supporting Document(s) HEMOGLOBIN A1C @ 6.6 % (4.0-6.0) H [facility] [place] [facility] [place] Performed using [employer] [place] immunoassa y.Care must be taken when interpreting [id number] in patients with a hemoglobin variantor decreased erythrocyte lifespan. Values 5.7 - 6.4% suggest prediabetes.Values >=6.5% are diagnostic for diabetes.REFERENCE: DIABETES CARE 2018: 41(S13-S27).PERFORMED AT [address] [facility] [address] [place] GLUCOSE 143 mg/dL [facility] ID Date Data Source [id number] 11/13/2020 07:05:42 PM EDT [facility] [place] [facility] [place] Name Value Range Interpretation Code Description Data Ema rce(s) Supporting Document(s) POC GLUCOSE 193 mg/dL (70-99) H [facility] [place] PERFORMED BY CLINICAL STAFF ID Date Data Source [id number] 2020 11:32:00 AM EDT [facility] [address] [place], [place] [address]KPDGEMT NAME: RADHA LINARESTE OF : 1940EPORT: OPERATIONPATIENT NUMBER: [id number] STATUS: IPMEDICAL RECORD NUMBER: [id number] OF ADMISSION: 11/13/2020ATE OF DISCHARGE:ROOM: 04DATE OF [...] crystalloid.COMPLICATIONS: None.DRAINS: A 10-mm GEOFF drain and 7-Martiniquais single J stent bilaterally.SPECIMENS: Bladder, prostate, and [...] ureter, I then clipped with 10 mm [id number] clip and then transected and I continued [...] ileoconduit. Prior to closing the anastomosis, a 7-Martiniquais single Jstent was advanced up from the [...] Kitchen, MDDictated: 11/13/2020 17:08DT: 11/13/2020 17:16Job #: [id number]: [facility] computer generated reports are not confirmed orauthenticated unless they are signed by the providerElectronically Authenticated by:KRISTA KITCHEN MD On 2020 11:32 AM EDT Name Value Range Interpretation Code Description Data Ema rce(s) Supporting Document(s) ID Date Data Source [id number] 11/13/2020 04:57:08 PM EDT [facility] [place] [facility] Name Value Range Interpretation Code Description Data Ema rce(s) Supporting Document(s) POC GLUCOSE 166 mg/dL (70-99) H [facility] [place] [facility] NOTIFIED PROVIDERNOTIFIED NURSEPERFORMED BY CLINICAL STAFF ID Date Data Source [id number] 11/13/2020 12:03:13 PM EDT [facility] [place] [facility] [place] Name Value Range Interpretation Code Description Data Ema rce(s) Supporting Document(s) POC GLUCOSE 134 mg/dL (70-99) H [facility] [place] [facility] PERFORMED BY CLINICAL STAFF ID Date Data Source [id number] 11/13/2020 08:24:00 AM EDT [facility] Name Value Range Interpretation Code Description Data Ema rce(s) Supporting Document(s) Surgical pathology study Laboratory test result [facility] ([facility] [address] [place] [address] SURGICAL PATHOLOGY REPORT Patient Name:SARINA LINARES :1940 [...] Electronically Signed Out By Anisa Mcmillan D.O. [facility], P. [address] [place] [address] Technical component [facility] at [facility], Histopathology, [address] [place] [address], [id number]. Reported at [facility], [address] [place] [address], [phone]. This report may include immunohistochemical or in-situ hybridization results. Testing was developed and the performance characteristics determined by [facility], as required by CLIA '88. The FDA has determined that approval for specific use is not necessary for clinical use. The quality of Hematoxylin and Eosin stains and as applicable, for all immunohistochemical and/or special stains, including positive and negative controls, were reviewed and considered appropriate. ICD codes: Z85.46 CPT4 codes: A: 86728O B: 28848S C: 49117R ID Date Data Source [id number] 11/22/2020 12:14:35 AM EDT [facility] [place] [facility] [place], [place] [address]Anm# SURGICAL PATHOLOGY REPORTPatient Name:SARINA LINARES:2Received:11/14/2020ccession #:[id number](s) [...] 11/22/2020Electronically Signed Out By Anisa Mcmillan [facility].O. [facility], PGwenCGwen[address] [place] [address]Hdbvxeqbd component performed at [facility], Histopathology, [address] [place] [address], [phone].Reported at [facility], [address] [place] [address], [phone].This report may include immunohistochemical or in-situ hybridizationresults. Testing was developed and the performance characteristicsdetermined by [facility], as required byCLIA '88. The FDA has determined that approval for specific use is notnecessary for clinical use. The quality of Hematoxylin and Eosin stainsand as applicable, for all immunohistochemical and/or special stains,including positive and negative controls, were reviewed and consideredappropriate.ICD codes: Z85.46CPT4 codes: A: 71241LF: 79660PO: 53945Y Name Value Range Interpretation Code Description Data Ema rce(s) Supporting Document(s) ID Date Data Source [id number] 11/06/2020 02:53:00 PM EDT [facility] [place] Name Value Range Interpretation Code Description Data Ema rce(s) Supporting Document(s) Protein [Presence] in Urine by Test strip 30 mg/dL [facility] ([facility]) Glucose [Presence] in Urine Laboratory test result [facility] ([facility]) Ua Nitrite Laboratory test result [facility] DENT ([facility]) Blood [Presence] in Urine by Visual Laboratory test result [facility] ([facility]) Ua Leuko Laboratory test result [facility] ([facility]) Ketones [Presence] in Urine by Test strip Laboratory test result [facility] ([facility]) Color of Urine Laboratory test result [facility] ([facility]) Ua Specific [place] 1.015 1.003-1.030 MEDE NT ([facility]) Clarity of Urine Laboratory test result [facility] ([facility]) pH of Urine by Test strip 7.0 5.0-7.5 [facility] ([facility]) Bilirubin.total [Presence] in Urine by Test strip Laboratory test res ult [facility] ([facility]) Urobilinogen [Mass/volume] in Urine by Test strip 0.2 E.U./dL 0.0-1.0 [facility] ([facility]) ID Date Data Source [id number] 11/06/2020 02:51:00 PM EDT [facility] [place] Name Value Range Interpretation Code Description Data Ema rce(s) Supporting Document(s) Bacteria identified in Urine by Culture Laboratory test result [facility] ([facility]) SPECIMEN DESCRIPTION URINE, COLLE CTION METHOD NOT SPECIFIED CULTURE RESULTS MIXED UROGENITAL DEIRDRE; PLEASE SUBMIT A NEW SPEC IMEN IF CLINICALLY INDICATED. REPORT STATUS FINAL 11/08/2020 ID Date Data Source [id number] 11/08/2020 07:41:09 AM EDT [facility] - CORE SPECIMEN DESCRIPTION URINE, COLLE CTION METHOD NOT SPECIFIEDCULTURE RESULTS MIXED UROGENITAL DEIRDRE; PLEASE SUBMIT A NEW SPEC IMEN IF CLINICALLY INDICATED.REPORT STATUS FINAL 11/08/2020 Name Value Range Interpretation Code Description Data Ema rce(s) Supporting Document(s) ID Date Data Source [id number] 11/06/2020 02:00:50 PM EDT [facility] [place] [facility] SPEC EXP DATE 11/16/2020ATI ENT ABO/Rh A POSITIVEANTIBODY SCREEN NEGATIVETESTING SITE PERFORMED AT [address] [place] [address] BANK COMMENT BLOOD TYPE CONFIRMED. Name Value Range Interpretation Code Description Data Ema rce(s) Supporting Document(s) ID Date Data Source [id number] 11/06/2020 01:36:41 PM EDT [facility] [place] [facility] Name Value Range Interpretation Code Description Data Ema rce(s) Supporting Document(s) SODIUM 140 mmol/L (136-145) [facility] [place] [facility] POTASSIUM 3.9 mmol/L (3.6-5.2) [facility] [place] [facility] CHLORIDE 110 mmol/L (100-108) H [facility] [place] [facility] CO2 27 mmol/L (22-31) [facility] [place] [facility] ANION GAP 3 mmol/L (7-16) L [facility] [place] [facility] UREA NITROGEN 16 mg/dL (7-24) [facility] [place] [facility] CREATININE 0.77 mg/dL (0.80-1.30) L [facility] [place] [facility] BUN/CREAT RATIO 20.8 RATIO (10.0-20.0) H [facility] GLUCOSE 116 mg/dL (70-99) H [facility] [place] [facility] CALCIUM 10.1 mg/dL (8.4-10.2) [facility] [place] [facility] TOTAL PROTEIN 7.1 g/dL (6.4-8.2) [facility] [place] [facility] ALBUMIN 3.1 g/dL (3.2-4.5) L [facility] [place] [facility] GLOBULIN 4.0 g/dL (2.7-4.3) [facility] [place] [facility] ALB/GLOB RATIO 0.8 RATIO [facility] [place] [facility] ALKALINE PHOSPHATASE 94 U/L (45-117) [facility] BILIRUBIN,TOTAL 0.6 mg/dL (0.0-1.0) [facility] [place] [facility] PLEASE NOTE:Total bilirubin results may be falselyelevated in patients taking Eltrombopag. AST (SGOT) 38 U/L (11-39) [facility] [place] [facility] ALT (SGPT) 31 U/L (12-78) [facility] [place] [facility] GFR >60 ml/min/1.73m2 (>59) [facility] [place] [facility] GFR ( AMER) >60 ml/min/1.73m2 (>59) [facility] [place] [facility] GFR INTERPRETATION [facility] --NORMAL KIDNEY FUNCTION OR MILD DISEASE - GFR >OR= 60CHRONIC KIDNEY DISEASE - GFR 15 - 59RENAL FAILURE - GFR <15 Est. GFR calculation based on the MDRDstudy equation, which assumes a steadystate for creatinine. Est. GFR should notbe used for medication dosing. ID Date Data Source [id number] 11/06/2020 01:25:50 PM EDT [facility] [place] [facility] Name Value Range Interpretation Code Description Data Ema rce(s) Supporting Document(s) HEMOGLOBIN A1C @ 6.7 % (4.0-6.0) H [facility] [place] [facility] Performed using [employer] y.Care must be taken when interpreting FqR9okevsout in patients with a hemoglobin variantor decreased erythrocyte lifespan. Values 5.7 - 6.4% suggest prediabetes.Values >=6.5% are diagnostic for diabetes.REFERENCE: DIABETES CARE 2018: 41([id number]).PERFORMED AT [address] [place] [id number] EST AVERAGE GLUCOSE 146 mg/dL [facility] ID Date Data Source [id number] 11/06/2020 01:09:23 PM EDT [facility] Name Value Range Interpretation Code Description Data Ema rce(s) Supporting Document(s) WBC 3.2 10*3/uL (4.1-11.0) L [facility] RBC 3.44 10*6/uL (4.60-6.10) L [facility] HGB 9.6 g/dL (13.5-18.0) L [facility] HCT 28.9 % (41.0-53.0) L [facility] PERFORMED AT [address] [place] [id number] MCV 84.2 fL (80.0-95.0) [facility] MCH 27.9 pg (27.0-32.0) [facility] MCHC 33.2 g/dL (32.0-36.0) [facility] RDW 15.8 % (10.5-14.5) H [facility] PLT 117 10*3/uL (150-450) L [facility] [place] [facility] MPV 8.8 fL (7.1-10.7) [facility] [place] [facility] NEUT % 69.0 % (35.0-75.0) [facility] [place] [facility] LYMPH % 10.3 % (16.0-52.0) L [facility] [place] [facility] MONO % 11.9 % (0.0-8.0) H [facility] [place] [facility] EOS % 6.5 % (0.0-5.0) H [facility] [place] [facility] BASO % 2.3 % (0.0-4.0) [facility] [place] [facility] NEUT # 2.2 10*3/uL (1.8-7.7) [facility] [place] [facility] LYMPH # 0.3 10*3/uL (1.2-4.8) L [facility] [place] [facility] MONO # 0.4 10*3/uL (0.0-0.8) [facility] [place] [facility] Eosinophils [#/volume] in Blood by Automated count 0.2 10*3/uL (0.0-0 .5) [facility] [place] [facility] [place] BASO # 0.1 10*3/uL (0.0-0.2) [facility] [place] [facility] ID Date Data Source [id number] 07/20/2020 03:20:00 PM EST [facility] ([facility] Name Value Range Interpretation Code Description Data Mea rce(s) Supporting Document(s) Bacteria identified in Urine by Culture Laboratory test result [facility] ([facility]) SPECIMEN DESCRIPTION CATHETER,IND WELLING CULTURE RESULTS MIXED UROGENITAL DEIRDRE; PLEASE SUBMIT A NEW SPEC IMEN IF CLINICALLY INDICATED. REPORT STATUS FINAL 07/22/2020 ID Date Data Source [id number] 07/22/2020 09:37:50 AM EST [facility] [place] [facility] [place] - CORE SPECIMEN DESCRIPTION CATHETER,IND WELLINGCULTURE RESULTS MIXED UROGENITAL DEIRDRE; PLEASE SUBMIT A NEW SPEC IMEN IF CLINICALLY INDICATED.REPORT STATUS FINAL 07/22/2020 Name Value Range Interpretation Code Description Data Ema rce(s) Supporting Document(s) ID Date Data Source [id number] 07/20/2020 01:20:00 PM EST [facility] ([facility]) Name Value Range Interpretation Code Description Data Ema rce(s) Supporting Document(s) Glucose [Presence] in Urine Laboratory test result [facility] ([facility]) Protein [Presence] in Urine by Test strip 30 mg/dL [facility] ([facility]) Ua Nitrite Laboratory test result [facility] ([facility]) Ua Leuko Laboratory test result [facility] ([facility]) Color of Urine Laboratory test result [facility] ([facility]) Blood [Presence] in Urine by Visual Laboratory test result [facility] ([facility]) Ketones [Presence] in Urine by Test strip Laboratory test result [facility] ([facility]) Clarity of Urine Laboratory test result [facility] ([facility]) Ua Specific [place] 1.015 1.003-1.030 [facility] NT ([facility]) pH of Urine by Test strip 7.0 5.0-7.5 [facility] ([facility]) Bilirubin.total [Presence] in Urine by Test strip Laboratory test res ult [facility] ([facility] [place]) Urobilinogen [Mass/volume] in Urine by Test strip 0.2 E.U./dL 0.0-1.0 [facility] ([facility]) ID Date Data Source [id number] 05/30/2020 02:17:00 PM EST [facility] ([facility]) Name Value Range Interpretation Code Description Data Ema rce(s) Supporting Document(s) Bacteria identified in Urine by Culture Laboratory test result [facility] ([facility]) <content>SPECIMEN DESCRIPTION CATHETER,INDWELLING</content>
<content>CULTURE RESULTS >100,000 CFU/ML [...]
<content>CEFTAROLINE 0.25 SUSCEPTIBLE</content> ID Date Data Source [id number] 06/03/2020 07:48:59 AM EST Laboratory [facility] [place] [...] rce(s) Supporting Document(s) ID Date Data Source [id number] 05/30/2020 02:11:00 PM EST [facility] ([facility]) Name Value Range Interpretation Code Description Data Ema rce(s) Supporting Document(s) Glucose [Presence] in Urine Laboratory test result [facility] ([facility]) Ua Nitrite Laboratory test result [facility] ([facility]) Protein [Presence] in Urine by Test strip 100 mg/dL [facility] ([facility]) Blood [Presence] in Urine by Visual Laboratory test result [facility] ([facility]) Ua Leuko Laboratory test result [facility] ([facility]) Color of Urine Laboratory test result [facility] ([facility]) Clarity of Urine Laboratory test result [facility] ([facility]) Ketones [Presence] in Urine by Test strip Laboratory test result [facility] ([facility]) Bilirubin.total [Presence] in Urine by Test strip Laboratory test res ult [facility] ([facility]) Ua Specific [place] 1.020 1.003-1.030 [facility] ([facility]) pH of Urine by Test strip 6.0 5.0-7.5 [facility] ([facility]) Urobilinogen [Mass/volume] in Urine by Test strip 1.0 E.U./dL 0.0-1.0 [facility] ([facility]) ID Date Data Source [id number] 03/22/2020 11:21:00 AM EDT [facility] ([facility]) Name Value Range Interpretation Code Description Data Ema rce(s) Supporting Document(s) Glucose [Presence] in Urine Laboratory test result [facility] ([facility]) Protein [Presence] in Urine by Test strip Laboratory test result [facility] ([facility]) Ua Nitrite Laboratory test result [facility] ([facility]) Ua Leuko Laboratory test result [facility] ([facility]) Blood [Presence] in Urine by Visual Laboratory test result [facility] ([facility]) Color of Urine Laboratory test result [facility] ([facility]) Clarity of Urine Laboratory test result [facility] ([facility]) Ketones [Presence] in Urine by Test strip Laboratory test result [facility] ([facility]) Ua Specific [place] Laboratory test result 1.003-1.030 [facility] ([facility]) Bilirubin.total [Presence] in Urine by Test strip Laboratory test res ult [facility] ([facility]) pH of Urine by Test strip 5.5 5.0-7.5 [facility] ([facility]) Urobilinogen [Mass/volume] in Urine by Test strip 0.2 E.U./dL 0.0-1.0 [facility] ([facility]) ID Date Data Source [id number] 03/20/2020 03:15:00 PM EDT [facility] Name Value Range Interpretation Code Description Data Ema rce(s) Supporting Document(s) Bacteria identified in Urine by Culture Laboratory test result [facility] ([facility]) SPECIMEN DESCRIPTION URINE, COLLE CTION METHOD NOT SPECIFIED CULTURE RESULTS >100,000 CFU/ML AEROCOCCUS URINAE NOTE: THERE ARE NO CLSI APPROVED CRITERIA FOR TESTING THE SUSCEPTIBILITY OF THIS ORGANISM TO ANTIBIOTICS. CONSULTATION WITH AN INFECTIOUS DISEASE PHYSICIAN OR PHARMACIST MAY BE WARRANTED IF THIS ORGANISM IS CLINICALLY SIGNIFICANT. REPORT STATUS FINAL 03/22/2020 ID Date Data Source [id number] 03/22/2020 09:29:42 AM EDT [facility] [place] [facility] [place] CORE SPECIMEN DESCRIPTION URINE, COLLE CTION METHOD NOT SPECIFIEDCULTURE RESULTS >100,000 CFU/ML AEROCOCCUS URINAENOTE: THERE ARE NO CLSI APPROVED CRITERIA FOR TESTING THESUSCEPTIBILITY OF THIS ORGANISM TO ANTIBIOTICS. CONSULTATION WITH ANINFECTIOUS DISEASE PHYSICIAN OR PHARMACIST MAY BE WARRANTED IF THISORGANISM IS CLINICALLY SIGNIFICANT. REPORT STATUS FINAL 03/22/2020 Name Value Range Interpretation Code Description Data Ema rce(s) Supporting Document(s) ID Date Data Source [id number] 03/20/2020 02:44:00 PM EDT [facility] ([facility]) Name Value Range Interpretation Code Description Data Ema rce(s) Supporting Document(s) Glucose [Presence] in Urine 100 mg/dL [facility] ([facility]) Ua Leuko Laboratory test result [facility] ([facility]) Protein [Presence] in Urine by Test strip Laboratory test result [facility] ([facility]) Ua Nitrite Laboratory test result [facility] ([facility]) Color of Urine Laboratory test result [facility] ([facility]) Blood [Presence] in Urine by Visual Laboratory test result [facility] ([facility]) Ketones [Presence] in Urine by Test strip Laboratory test result [facility] ([facility]) Clarity of Urine Laboratory test result [facility] ([facility]) Ua Specific [place] 1.015 1.003-1.030 [facility] ([facility]) pH of Urine by Test strip 7.0 5.0-7.5 [facility] ([facility]) Bilirubin.total [Presence] in Urine by Test strip Laboratory test res ult [facility] ([facility]) Urobilinogen [Mass/volume] in Urine by Test strip 1.0 E.U./dL 0.0-1.0 [facility] ([facility]) ID Date Data Source [id number] 03/16/2020 02:59:00 PM EDT [facility] ([facility]) Name Value Range Interpretation Code Description Data Ema rce(s) Supporting Document(s) Bacteria identified in Urine by Culture Laboratory test result [facility] ([facility]) <content>SPECIMEN DESCRIPTION URI NE, COLLECTION METHOD NOT SPECIFIED</content>
<content>CULTURE RESULTS <10,000 CFU/ML REPRESENTING URETHRAL DEIRDRE</content>
<content>REPORT STATUS FINAL 03/18/2020</content> ID Date Data Source [id number] 03/18/2020 07:58:46 AM EDT [facility] [place] [facility] [place] - CORE SPECIMEN DESCRIPTION URINE, COLLE CTION METHOD NOT SPECIFIEDCULTURE RESULTS <10,000 CFU/ML REPRESENTING URETHRAL [place] STATUS FINAL 03/18/2020 Name Value Range Interpretation Code Description Data Ema rce(s) Supporting Document(s) ID Date Data Source [id number] 03/16/2020 02:50:00 PM EDT [facility] ([facility]) Name Value Range Interpretation Code Description Data Ema rce(s) Supporting Document(s) Glucose [Presence] in Urine Laboratory test result [facility] ([facility]) Protein [Presence] in Urine by Test strip Laboratory test result [facility] ([facility]) Ua Nitrite Laboratory test result [facility] ([facility]) Ua Leuko Laboratory test result [facility] ([facility]) Ketones [Presence] in Urine by Test strip Laboratory test result [facility] ([facility]) Blood [Presence] in Urine by Visual Laboratory test result [facility] ([facility]) Color of Urine Laboratory test result [facility] ([facility]) Clarity of Urine Laboratory test result [facility] ([facility]) Ua Specific [place] 1.015 1.003-1.030 [facility] ([facility]) Bilirubin.total [Presence] in Urine by Test strip Laboratory test res ult [facility] ([facility]) pH of Urine by Test strip 7.0 5.0-7.5 [facility] ([facility]) Urobilinogen [Mass/volume] in Urine by Test strip 0.2 E.U./dL 0.0-1.0 [facility] ([facility]) ID Date Data Source [id number] 03/14/2020 10:54:17 AM EDT [facility]PATIE NT INFORMATIONPatient MRN Name Date of Age Gend*PT [id number] Sarina Linares 1940 79 years M SDCPT Location Admission Date/Time Visit ID Attending ProviderASNE AMBULATO* 03/02/20 0825 --- --- EPI ID CSN Admitting Provider [id number] Mar Castaneda MD([id number]) [place] [address] OPERATIVE REPORT OPNAME: SARINA LINARES#: [id number] #: [id number] ADMISSION DATE: 03/02/2020DOB: 1940 SEX: M PT TYPE: H SURACCT #: [id number] CARE PHYSICIAN:REFERRING PHYSICIAN: MAR ALICEAATE OF OPERATION: [...] furthertherapy, risk of general anesthesia, PE, CVA, TN, systemic effect of them edication and paralysis of the bladder. All questions were answered.Informed consent was obtained.DESCRIPTION OF PROCEDURE:The patient was prepped and draped in normal sterile fashion with the areaof interest being the genitalia exposed in the dorsal lithotomy positionafter induction of adequate MAC anesthetic. The patient did receivepreoperative IV antibiotics as well as pneumatic compression stockingsprior to induction of anesthesia.A 19-Martiniquais rigid cystoscope was advanced through the urethra [...] He already has antibiotics at home.Recommendation for [id number] pain medications for any discomfort.He should remain well hydrated.RECOMMENDATIONS:No heavy lifting, straining, exercise. No driving on pain medication. Hewill follow up in the office in 2 weeks as scheduled. Findings werereviewed with the patient's over the phone postoperatively.TIMOTEO DAVIDSON/ARCADIO Job #: [id number] DOC #: [id number] Name Value Range Interpretation Code Description Data Ema rce(s) Supporting Document(s) ID Date Data Source [id number] 03/02/2020 11:53:00 AM EDT [facility] ([facility]) Name Value Range Interpretation Code Description Data [facility] rce(s) Supporting Document(s) Composition in Stone Laboratory test result [facility] ([facility]) Calculi composed primarily of: 50% magnesium ammonium [...] composition determined by FTIR analysis. Performed By: [facility] [address] [place] [id number] [employer] Repairer: Flor Rosales MD Weight of Unspecified specimen 76 mg [facility] ([facility]) Number of Stones 2 [facility] ([facility]) Size [Entitic volume] of Stone Laboratory test result [facility] ([facility]) Unit: mm Appearance of Stone Laboratory test result [facility] ([facility]) Specimen consists of two, various sized (1 mm to 9 mm), montero, irregular calculi fragments. ID Date Data Source [id number] 03/07/2020 07:23:28 PM EDT [facility] [place] [facility] Name Value Range Interpretation Code Description Data [facility] rce(s) Supporting Document(s) COMPOSITION [facility] [place] [facility] See Note Calculi composed primarily of: 50% [...] composition determined by FTIR analysis. Performed By: [facility] [address] [place] [address] [employer] Motor Repairer: Flor Rosales MD MASS 76 mg Lab [facility] CALCULI NUMBER 2 [facility] CALCULI SIZE Lab [facility] VariousUnit: mm CALCULI DESCRIPTION [facility] See Note Specimen consists of two, vario us sized (1 mm to 9 mm), montero, irregular calculi fragments. ID Date Data Source [id number] 03/02/2020 10:50:03 AM EDT [facility])PATI NT INFORMATIONPatient MRN Name Date of Age Gend*PT [id number] Sarina Linares 1940 79 years M SDCPT Location Admission Date/Time Visit ID Attending ProviderASNE AMBULATO* 03/02/20 0825 --- Mar Castaneda MD([id number]) EPI ID CSN Admitting Provider [id number] Mar Castaneda MD([id number])H&P reviewed. The patient was examined and there are no changes to the H&P.The H&P that is being updated is available for review and was brought in Nba Castnaeda MD10:50 AM Name Value Range Interpretation Code Description Data Ema rce(s) Supporting Document(s) ID Date Data Source [id number] 02/26/2020 09:30:00 AM EDT [facility] Name Value Range Interpretation Code Description Data Ema rce(s) Supporting Document(s) SARS coronavirus 2 RNA [facility] This lab was ordered by [facility] [place] [facility] and reported by [facility]. ID Date Data Source [id number] 02/27/2020 12:07:19 PM EDT [facility] Name Value Range Interpretation Code Description Data Ema rce(s) Supporting Document(s) SARS-COV-2 JUSTEN Lab [facility] Not DetectedReference range: Not Detecte d This nucleic acid amplification test was developed and its performance characteristics determined by [employer]. Nucleic acid amplification tests include PCR and [...] detected) result in this assay. Performed At: [address] [id number] Osvaldo Dobson MD Ph:[phone] ID Date Data Source [id number] 02/24/2020 03:03:00 PM EDT [facility] ([facility] [place]) Name Value Range Interpretation Code Description Data Ema rce(s) Supporting Document(s) Bacteria identified in Urine by Culture Laboratory test result [facility] ([facility] [place]) <content>SPECIMEN DESCRIPTION URI NE, COLLECTION METHOD NOT SPECIFIED</content>
<content>CULTURE RESULTS >10,000 TO <100,000 CFU/ML AEROCOCCUS URINAE</content>
<content>NOTE: THERE ARE NO CLSI APPROVED CRITERIA FOR TESTING THE</content>
<content>SUSCEPTIBILITY OF THIS ORGANISM TO ANTIBIOTICS. CONSULTATION WITH AN</content>
<content>INFECTIOUS DISEASE PHYSICIAN OR PHARMACIST MAY BE WARRANTED IF THIS</content>
<content>ORGANISM IS CLINICALLY SIGNIFICANT.</content>
<content> </content>
<content>REPORT STATUS FINAL 02/26/2020</content> ID Date Data Source [id number] 02/26/2020 12:44:43 PM EDT [facility] [place] [facility] - CORE SPECIMEN DESCRIPTION URINE, COLLE [...] rce(s) Supporting Document(s) ID Date Data Source [id number] 02/24/2020 02:48:00 PM EDT [facility] ([facility]) Name Value Range Interpretation Code Description Data Ema rce(s) Supporting Document(s) Protein [Presence] in Urine by Test strip Laboratory test result [facility] ([facility] [place]) Glucose [Presence] in Urine 100 mg/dL [facility] ([facility]) Ua Nitrite Laboratory test result [facility] ([facility]) Ua Leuko Laboratory test result [facility] ([facility]) Color of Urine Laboratory test result [facility] ([facility]) Blood [Presence] in Urine by Visual Laboratory test result [facility] ([facility]) Ua Specific [place] 1.020 1.003-1.030 [facility] ([facility]) Ketones [Presence] in Urine by Test strip Laboratory test result [facility] ([facility]) Clarity of Urine Laboratory test result [facility] ([facility]) Bilirubin.total [Presence] in Urine by Test strip Laboratory test res ult [facility] ([facility]) pH of Urine by Test strip 6.0 5.0-7.5 [facility] ([facility]) Urobilinogen [Mass/volume] in Urine by Test strip 0.2 E.U./dL 0.0-1.0 [facility] ([facility]) ID Date Data Source [id number] 02/21/2020 10:48:00 AM EDT [facility] ([facility]) Name Value Range Interpretation Code Description Data Ema rce(s) Supporting Document(s) Bacteria identified in Urine by Culture Laboratory test result [facility] ([facility]) Procedure Social History Code Duration Value Status Description Data Source(s ) Smoking 04/02/2021 12:00:00 AM EDT Never Smoker completed Never S moker [facility] ([facility] Smoking 03/20/2021 12:00:00 AM EDT Never Smoked Cigarettes com pleted Never Smoked Cigarettes [facility] ([facility]) Smoking 03/05/2021 12:00:00 AM EDT Never Smoker completed Never S moker eCW1 ([facility]) Smoking 03/05/2021 12:00:00 AM EDT Never Smoker completed Never S moker eCW1 ([facility]) Smoking 03/05/2021 12:00:00 AM EDT Never Smoker completed Never S moker eCW1 ([facility]) Smoking 03/05/2021 12:00:00 AM EDT Never Smoker completed Never S moker eCW1 ([facility]) Smoking 03/05/2021 12:00:00 AM EDT Never Smoker completed Never S moker eCW1 ([facility]) Smoking 02/20/2021 12:00:00 AM EDT Never Smoker completed Never S moker eCW1 ([facility]) Smoking 01/31/2021 12:58:00 AM EDT Denies Ever Smoked complete d Denies Ever Smoked [facility] Smoking 01/01/2021 12:00:00 AM EDT Never Smoker completed Never S moker eCW1 ([facility]) Smoking 01/01/2021 12:00:00 AM EDT Never Smoker completed Never S moker eCW1 ([facility]) Smoking 01/01/2021 12:00:00 AM EDT Never Smoker completed Never S moker eCW1 ([facility]) Smoking 01/01/2021 12:00:00 AM EDT Never Smoker completed Never S moker eCW1 ([facility]) Smoking 01/01/2021 12:00:00 AM EDT Never Smoker completed Never S moker eCW1 ([facility]) Smoking 01/01/2021 12:00:00 AM EDT Never Smoker completed Never S moker eCW1 ([facility]) Smoking 01/01/2021 12:00:00 AM EDT Never Smoker completed Never S moker eCW1 ([facility]) Smoking 01/01/2021 12:00:00 AM EDT Never Smoker completed Never S moker eCW1 ([facility]) Smoking 11/28/2020 12:00:00 AM EDT Never Smoker completed Never S moker eCW1 ([facility]) Smoking 11/28/2020 12:00:00 AM EDT Never Smoker completed Never S moker eCW1 ([facility]) Smoking 11/28/2020 12:00:00 AM EDT Never Smoker completed Never S moker eCW1 ([facility]) Smoking 11/28/2020 12:00:00 AM EDT Never Smoker completed Never S moker eCW1 ([facility]) Smoking 11/21/2020 04:02:00 PM EDT Denies Ever Smoked complete d Denies Ever Smoked [facility] Smoking 11/11/2020 12:00:00 AM EDT Never Smoker completed Never S moker eCW1 ([facility]) Smoking 11/11/2020 12:00:00 AM EDT Never Smoker completed Never S moker eCW1 ([facility]) Smoking 11/07/2020 12:00:00 AM EDT Never Smoker completed Never S moker eCW1 ([facility]) Smoking 05/11/2020 12:00:00 AM EST Never Smoker completed Never S moker eCW1 ([facility]) Smoking 05/11/2020 12:00:00 AM EST Never Smoker completed Never S moker eCW1 ([facility]) Smoking 05/11/2020 12:00:00 AM EST Never Smoker completed Never S moker eCW1 ([facility]) Smoking 05/11/2020 12:00:00 AM EST Never Smoker completed Never S moker eCW1 ([facility]) Vital Signs ID Date Data Source UNK Name Value Range Interpretation Code Description Data Source(s) Body weight 175.0 [lb_av] 175.0 [lb_av] eCW1 ([facility]ly [facility], [facility]) Body height 71 [in_i] 71 [in_i] eCW1 ([facility]ly [facility]) Body mass index (BMI) [Ratio] 24.40 kg/m2 24.40 kg/m2 eCW1 ([facility]) Heart rate 99 /min 99 /min eCW1 ([facility]) Respiratory rate 18 /min 18 /min eCW1 ([facility]) Body temperature 97.1 [degF] 97.1 [degF] eCW1 ( [facility] [facility] Systolic blood pressure 102 mm[Hg] 102 mm[Hg] e CW1 [facility] Diastolic blood pressure 56 mm[Hg] 56 mm[Hg] eCW1 [facility] Body weight 79.380 kg 79.380 kg [facility] ([facility] Body mass index (BMI) [Ratio] 24.4 kg/m2 24.4 k g/m2 [facility] ([facility]) Systolic blood pressure 125 mm[Hg] 125 mm[Hg] M [facility] ([facility]) Diastolic blood pressure 60 mm[Hg] 60 mm[Hg] [facility] ([facility]) Heart rate 97 /min 97 /min [facility] Body height 71 [in_i] 71 [in_i] [facility] ([facility] 5'11" Body weight 175.00 [lb_av] 175.00 [lb_av] [facility] T ([facility] Body mass index (BMI) [Ratio] 27.48 kg/m2 No rmal (applies to non-numeric results) 27.48 kg/m2 [facility] Body height 179.2224 cm Normal (applies to non-numeric res ults) 179.2224 cm [facility] Body weight Measured 89.358 kg Normal (applies to n on-numeric results) 89.358 kg [facility] Diastolic blood pressure 54 mm[Hg] Normal (applies to non-numeric results) 54 mm[Hg] [facility] Systolic blood pressure 117 mm[Hg] Normal (applies t o non-numeric results) 117 mm[Hg] [facility] Body temperature 36.5 ifeanyi Normal (applies to non-numeric results) 36.5 ifeanyi [facility] Deprecated Oxygen saturation in Capillary blood by Oximetry 96 % Normal (applies to non-numeric results) 96 % [facility] Heart rate 83 min Normal (applies to non-numeric resul ts) 83 min [facility] Respiratory rate 18 min Normal (applies to non-numeric results) 18 min [facility] Body temperature 97.8 [degF] 97.8 [degF] [facility] Body weight 199.4 [lb_av] 199.4 [lb_av] eCW1 (Formerly [facility], 1928–1983) Body height 71 [in_i] 71 [in_i] eCW1 (Formerly [facility], [facility]) Systolic blood pressure 124 mm[Hg] 124 mm[Hg] e CW1 ([facility]) Body mass index (BMI) [Ratio] 27.81 kg/m2 27.81 kg/m2 eCW1 ([facility]) Heart rate 105 /min 105 /min eCW1 ([facility]) Respiratory rate 18 /min 18 /min eCW1 ([facility]) Diastolic blood pressure 58 mm[Hg] 58 mm[Hg] eCW1 ([facility]) Oxygen saturation in Arterial blood by Pulse oximetry 95 % 95 % [facility] ([facility]) Respiratory rate 18 /min 18 /min [facility] ( [facility]) Body height 71 [in_i] 71 [in_i] [facility] 5'11" Body weight 198.00 [lb_av] 198.00 [lb_av] [facility] ([facility]) Body weight 89.813 kg 89.813 kg [facility] ([facility] [place] Body mass index (BMI) [Ratio] 27.6 kg/m2 27.6 k g/m2 [facility] ([facility]) Systolic blood pressure 142 mm[Hg] 142 mm[Hg] M [facility] ([facility]) Diastolic blood pressure 66 mm[Hg] 66 mm[Hg] [facility] ([facility]) Heart rate 105 /min 105 /min [facility] [place] Body temperature 97.7 [degF] 97.7 [degF] [facility] ([facility]) Systolic blood pressure 136 mm[Hg] Normal (applies t o non-numeric results) 136 mm[Hg] [facility] Diastolic blood pressure 70 mm[Hg] Normal (applies to non-numeric results) 70 mm[Hg] [facility] Heart rate 90 min Normal (applies to non-numeric resul ts) 90 min [facility] Deprecated Oxygen saturation in Capillary blood by Oximetry 98 % Normal (applies to non-numeric results) 98 % [facility] Respiratory rate 16 min Normal (applies to non-numeric results) 16 min [facility] Systolic blood pressure 136 mm[Hg] 136 mm[Hg] M [facility] ([facility]) Diastolic blood pressure 70 mm[Hg] 70 mm[Hg] [facility] ([facility]) Heart rate 90 /min 90 /min [facility] ([facility]) Respiratory rate 16 /min 16 /min [facility] ( [facility]) Oxygen saturation in Arterial blood by Pulse oximetry 98 % 98 % [facility] ([facility]) Body mass index (BMI) [Ratio] 28.0 kg/m2 No rmal (applies to non-numeric results) 28.0 kg/m2 [facility] Body height 179.2224 cm Normal (applies to non-numeric res ults) 179.2224 cm [facility] Body temperature 36.4 ifeanyi Normal (applies to non-numeric results) 36.4 ifeanyi [facility] Body weight Measured 201 [lb_av] Normal (applies to n on-numeric results) 201 [lb_av] [facility] Body weight 210.00 [lb_av] 210.00 [lb_av] [facility] ([facility] Body height 71 [in_i] 71 [in_i] [facility] 5'11" Heart rate 109 /min 109 /min [facility] [place] Body mass index (BMI) [Ratio] 29.3 kg/m2 29.3 k g/m2 [facility] ([facility]) Systolic blood pressure 128 mm[Hg] 128 mm[Hg] M [facility] ([facility]) Diastolic blood pressure 70 mm[Hg] 70 mm[Hg] [facility] ([facility] Body weight 95.256 kg 95.256 kg [facility] ([facility]) Body weight 223.2 [lb_av] 223.2 [lb_av] eCW1 (Formerly [facility], 1928–1983) Body height 71 [in_i] 71 [in_i] eCW1 (Formerly [facility], [facility]) Body mass index (BMI) [Ratio] 31.13 kg/m2 31.13 kg/m2 eCW1 [facility] Heart rate 116 /min 116 /min eCW1 ([facility]) Respiratory rate 18 /min 18 /min eCW1 ([facility]) Body temperature 97.8 [degF] 97.8 [degF] eCW1 ( [facility]) Systolic blood pressure 104 mm[Hg] 104 mm[Hg] e CW1 ([facility]) Diastolic blood pressure 54 mm[Hg] 54 mm[Hg] eCW1 [facility] Body height 71 [in_i] 71 [in_i] [facility] 5'11" Heart rate 110 /min 110 /min [facility] Body weight 216.00 [lb_av] 216.00 [lb_av] [facility] ([facility]) Body weight 97.978 kg 97.978 kg [facility] ([facility] [place] Body mass index (BMI) [Ratio] 30.1 kg/m2 30.1 k g/m2 [facility] ([facility]) Systolic blood pressure 133 mm[Hg] 133 mm[Hg] M [facility] ([facility]) Diastolic blood pressure 64 mm[Hg] 64 mm[Hg] [facility] ([facility] Body weight 216.0 [lb_av] 216.0 [lb_av] eCW1 (Formerly [facility], 1928–1983) Body height 71 [in_i] 71 [in_i] eCW1 (Formerly [facility], [facility]) Body mass index (BMI) [Ratio] 30.12 kg/m2 30.12 kg/m2 eCW1 [facility] Heart rate 97 /min 97 /min eCW1 ([facility]) Respiratory rate 18 /min 18 /min eCW1 ([facility]) Body temperature 97.4 [degF] 97.4 [degF] eCW1 ( [facility] Systolic blood pressure 104 mm[Hg] 104 mm[Hg] e CW1 ([facility]) Diastolic blood pressure 52 mm[Hg] 52 mm[Hg] eCW1 [facility]) Respiratory rate 18 min Normal (applies to non-numeric results) 18 min [facility] Systolic blood pressure 160 mm[Hg] Normal (applies t o non-numeric results) 160 mm[Hg] [facility] Diastolic blood pressure 69 mm[Hg] Normal (applies to non-numeric results) 69 mm[Hg] [facility] Heart rate 83 min Normal (applies to non-numeric resul ts) 83 min [facility] Body temperature 36.5 ifeanyi Normal (applies to non-numeric results) 36.5 ifeanyi [facility] Systolic blood pressure 160 mm[Hg] 160 mm[Hg] [facility] ([facility]) Diastolic blood pressure 69 mm[Hg] 69 mm[Hg] [facility] ([facility]) Heart rate 83 /min 83 /min [facility] [place] Respiratory rate 18 /min 18 /min [facility] ( [facility]) Body temperature 36.5 [degF] 36.5 [degF] [facility] ([facility] [place]) Deprecated Oxygen saturation in Capillary blood by Oximetry 99 % Normal (applies to non-numeric results) 99 % [facility] Oxygen saturation in Arterial blood by Pulse oximetry 99 % 99 % [facility] ([facility] [place]) Body height 179.2224 cm Normal (applies to non-numeric res ults) 179.2224 cm [facility] Body weight Measured 89.9 kg Normal (applies to non-num gayatri results) 89.9 kg [facility] Body mass index (BMI) [Ratio] 27.64 kg/m2 No rmal (applies to non-numeric results) 27.64 kg/m2 [facility] Body weight 209.2 [lb_av] 209.2 [lb_av] eCW1 (Formerly [facility], 1928–1983) Body height 71 [in_i] 71 [in_i] eCW1 (Formerly [facility], [facility]) Body mass index (BMI) [Ratio] 29.17 kg/m2 29.17 kg/m2 eCW1 [facility]) Heart rate 94 /min 94 /min eCW1 ([facility]) Respiratory rate 18 /min 18 /min eCW1 ([facility]) Body temperature 97.7 [degF] 97.7 [degF] eCW1 ( [facility]) Systolic blood pressure 124 mm[Hg] 124 mm[Hg] e CW1 ([facility]) Diastolic blood pressure 64 mm[Hg] 64 mm[Hg] eCW1 [facility] Body weight 92.081 kg 92.081 kg [facility] [place] Body mass index (BMI) [Ratio] 28.3 kg/m2 28.3 k g/m2 [facility] ([facility] [place]) Systolic blood pressure 149 mm[Hg] 149 mm[Hg] M [facility] ([facility] [place]) Diastolic blood pressure 75 mm[Hg] 75 mm[Hg] [facility] ([facility] [place]) Heart rate 86 /min 86 /min [facility] [place] Body height 71 [in_i] 71 [in_i] [facility] ([facility] [place] 5'11" Body weight 203.00 [lb_av] 203.00 [lb_av] [facility] ([facility] [place]) Body weight 240.00 [lb_av] 240.00 [lb_av] [facility] ([facility] [place]) Body weight 108.864 kg 108.864 kg [facility] ([facility] [place] Body mass index (BMI) [Ratio] 33.5 kg/m2 33.5 k g/m2 [facility] ([facility] [place]) Body temperature 97.6 [degF] 97.6 [degF] [facility] ([facility] [place] Body height 71 [in_i] 71 [in_i] [facility] [place] 5'11" Body weight 211 [lb_av] 211 [lb_av] eCW1 (Formerly [facility]) Body height 71 [in_i] 71 [in_i] eCW1 ([facility]ly [facility], [facility]) Body mass index (BMI) [Ratio] 29.43 kg/m2 29.43 kg/m2 eCW1 [facility]) Systolic blood pressure 146 mm[Hg] 146 mm[Hg] e CW1 ([facility]) Diastolic blood pressure 82 mm[Hg] 82 mm[Hg] eCW1 ([facility]) Body mass index (BMI) [Ratio] 29.43 kg/m2 29.43 kg/m2 eCW1 ([facility]) Body height 71 [in_i] 71 [in_i] eCW1 ([facility]ly [facility], [facility]) Body weight 211 [lb_av] 211 [lb_av] eCW1 ([facility]ly [facility]) Heart rate 92 /min 92 /min eCW1 ([facility]) Respiratory rate 18 /min 18 /min eCW1 ([facility]) Body temperature 97.3 [degF] 97.3 [degF] eCW1 ( [facility] Diastolic blood pressure 78 mm[Hg] 78 mm[Hg] eCW1 [facility]) Systolic blood pressure 142 mm[Hg] 142 mm[Hg] e CW1 ([facility]) Body weight 240.00 [lb_av] 240.00 [lb_av] [facility] ([facility] Body height 71 [in_i] 71 [in_i] [facility] [place] 5'11" Body weight 108.864 kg 108.864 kg [facility] [place] Body mass index (BMI) [Ratio] 33.5 kg/m2 33.5 k g/m2 [facility] ([facility]) Systolic blood pressure 155 mm[Hg] 155 mm[Hg] M [facility] ([facility]) Diastolic blood pressure 67 mm[Hg] 67 mm[Hg] [facility] ([facility]) Heart rate 101 /min 101 /min [facility] [place] Heart rate 90 /min 90 /min [facility] [place] Body height 71 [in_i] 71 [in_i] [facility] ([facility] [place] 5'11" Body weight 240.00 [lb_av] 240.00 [lb_av] [facility] ([facility] Body weight 108.864 kg 108.864 kg [facility] ([facility] [place]) Body mass index (BMI) [Ratio] 33.5 kg/m2 33.5 k g/m2 [facility] ([facility] [place]) Systolic blood pressure 159 mm[Hg] 159 mm[Hg] M [facility] ([facility] [place]) Diastolic blood pressure 70 mm[Hg] 70 mm[Hg] [facility] ([facility] [place]) Body weight 108.864 kg 108.864 kg [facility] ([facility]) Body mass index (BMI) [Ratio] 33.5 kg/m2 33.5 k g/m2 [facility] ([facility] [place]) Body temperature 97.9 [degF] 97.9 [degF] [facility] ([facility] [place]) Heart rate 100 /min 100 /min [facility] ([facility] [place] Systolic blood pressure 146 mm[Hg] 146 mm[Hg] M [facility] ([facility]) Diastolic blood pressure 72 mm[Hg] 72 mm[Hg] [facility] ([facility] [place]) Body height 71 [in_i] 71 [in_i] [facility] ([facility]) 5'11" Body weight 240.00 [lb_av] 240.00 [lb_av] [facility] ([facility] [place]) ID Date Data Source [id number] 04/15/2021 08:59:01 AM [facility] Name Value Range Interpretation Code Description Data Source(s) WEIGHT RECORDED 175 lb 175 lb [facility] Body height Measured 71 in 71 in [facility] Patient Treatment Plan of Care Planned Activity Planned Date Details Description Data Source (s) Abdominal Binder/Elastic 3XL - 03/05/2021 12:00:00 AM EDT eCW1 ([facility]) Abdominal Binder/Elastic 3XL - 03/05/2021 12:00:00 AM EDT eCW1 ([facility]) Abdominal Binder/Elastic 3XL - 03/05/2021 12:00:00 AM EDT eCW1 ([facility]) Abdominal Binder/Elastic 3XL - 03/05/2021 12:00:00 AM EDT eCW1 ([facility]) Abdominal Binder/Elastic 3XL - 03/05/2021 12:00:00 AM EDT eCW1 ([facility]) HydrOXYzine HCl 10 MG 01/08/2021 01:00:00 AM EDT [facility] ([facility]) Hydroxyzine Hydrochloride 10 MG Oral Tablet 01/08/2021 12:00:00 AM EDT eCW1 ([facility]) Hydroxyzine Hydrochloride 10 MG Oral Tablet 01/08/2021 12:00:00 AM EDT eCW1 ([facility]) Hydroxyzine Hydrochloride 10 MG Oral Tablet 01/08/2021 12:00:00 AM EDT eCW1 ([facility]) Hydroxyzine Hydrochloride 10 MG Oral Tablet 01/08/2021 12:00:00 AM EDT eCW1 ([facility]) Hydroxyzine Hydrochloride 10 MG Oral Tablet 01/08/2021 12:00:00 AM EDT eCW1 ([facility]) Hydroxyzine Hydrochloride 10 MG Oral Tablet 01/08/2021 12:00:00 AM EDT eCW1 ([facility]) Hydroxyzine Hydrochloride 10 MG Oral Tablet 01/08/2021 12:00:00 AM EDT eCW1 ([facility]) Hydroxyzine Hydrochloride 10 MG Oral Tablet 01/08/2021 12:00:00 AM EDT eCW1 ([facility]) Hydroxyzine Hydrochloride 10 MG Oral Tablet 01/08/2021 12:00:00 AM EDT eCW1 ([facility]) Hydroxyzine Hydrochloride 10 MG Oral Tablet 01/08/2021 12:00:00 AM EDT eCW1 ([facility]) Hydroxyzine Hydrochloride 10 MG Oral Tablet 01/08/2021 12:00:00 AM EDT eCW1 ([facility]) Hydroxyzine Hydrochloride 10 MG Oral Tablet 01/08/2021 12:00:00 AM EDT eCW1 ([facility]) Hydroxyzine Hydrochloride 10 MG Oral Tablet 01/08/2021 12:00:00 AM EDT eCW1 ([facility]) Hydroxyzine Hydrochloride 10 MG Oral Tablet 01/08/2021 12:00:00 AM EDT eCW1 ([facility]) Losartan Potassium 100 MG 01/07/2021 01:00:00 AM EDT NETSMART ([facility]) Spironolactone 25 MG 01/07/2021 01:00:00 AM EDT [facility] ([facility]) Losartan Potassium 50 MG Oral Tablet 01/01/2021 12:00:00 AM EDT eCW1 ([facility]) Spironolactone 25 MG Oral Tablet 01/01/2021 12:00:00 AM EDT eCW1 ([facility]) Spironolactone 25 MG Oral Tablet 01/01/2021 12:00:00 AM EDT eCW1 ([facility]) Spironolactone 25 MG Oral Tablet 01/01/2021 12:00:00 AM EDT eCW1 ([facility]) Spironolactone 25 MG Oral Tablet 01/01/2021 12:00:00 AM EDT eCW1 ([facility]) Losartan Potassium 100 MG Oral Tablet 01/01/2021 12:00:00 AM EDT eCW1 ([facility]) Spironolactone 25 MG Oral Tablet 01/01/2021 12:00:00 AM EDT eCW1 ([facility]) Losartan Potassium 100 MG Oral Tablet 01/01/2021 12:00:00 AM EDT eCW1 ([facility]) Spironolactone 25 MG Oral Tablet 01/01/2021 12:00:00 AM EDT eCW1 ([facility]) Losartan Potassium 100 MG Oral Tablet 01/01/2021 12:00:00 AM EDT eCW1 ([facility]) Spironolactone 25 MG Oral Tablet 01/01/2021 12:00:00 AM EDT eCW1 ([facility]) Spironolactone 25 MG Oral Tablet 01/01/2021 12:00:00 AM EDT eCW1 ([facility]) Losartan Potassium 100 MG Oral Tablet 01/01/2021 12:00:00 AM EDT eCW1 ([facility]) Spironolactone 25 MG Oral Tablet 01/01/2021 12:00:00 AM EDT eCW1 ([facility]) Losartan Potassium 100 MG Oral Tablet 01/01/2021 12:00:00 AM EDT eCW1 ([facility]) Spironolactone 25 MG Oral Tablet 01/01/2021 12:00:00 AM EDT eCW1 ([facility]) Losartan Potassium 100 MG Oral Tablet 01/01/2021 12:00:00 AM EDT eCW1 ([facility]) Spironolactone 25 MG Oral Tablet 01/01/2021 12:00:00 AM EDT eCW1 ([facility]) Losartan Potassium 100 MG Oral Tablet 01/01/2021 12:00:00 AM EDT eCW1 ([facility]) Spironolactone 25 MG Oral Tablet 01/01/2021 12:00:00 AM EDT eCW1 ([facility]) Losartan Potassium 100 MG Oral Tablet 01/01/2021 12:00:00 AM EDT eCW1 ([facility]) Spironolactone 25 MG Oral Tablet 01/01/2021 12:00:00 AM EDT eCW1 ([facility]) Spironolactone 25 MG Oral Tablet 01/01/2021 12:00:00 AM EDT eCW1 ([facility]) Losartan Potassium 100 MG Oral Tablet 01/01/2021 12:00:00 AM EDT eCW1 ([facility]) Potassium Chloride 12/31/2020 01:00:00 AM EDT NETSMART ([facility]) Colace 100 MG 12/31/2020 01:00:00 AM EDT [facility]SM[facility] ([facility]) Lasix 20 MG 12/24/2020 01:00:00 AM EDT N ETSM[facility] ([facility]) Furosemide 40 MG Oral Tablet [Lasix] 12/24/2020 12:00:00 AM EDT eCW1 ([facility]) Furosemide 40 MG Oral Tablet [Lasix] 12/24/2020 12:00:00 AM EDT eCW1 ([facility]) Furosemide 40 MG Oral Tablet [Lasix] 12/24/2020 12:00:00 AM EDT eCW1 ([facility]) Furosemide 40 MG Oral Tablet [Lasix] 12/24/2020 12:00:00 AM EDT eCW1 ([facility]) Furosemide 40 MG Oral Tablet [Lasix] 12/24/2020 12:00:00 AM EDT eCW1 ([facility]) Furosemide 20 MG Oral Tablet [Lasix] 12/24/2020 12:00:00 AM EDT eCW1 ([facility]) Furosemide 20 MG Oral Tablet [Lasix] 12/24/2020 12:00:00 AM EDT eCW1 ([facility]) Furosemide 20 MG Oral Tablet [Lasix] 12/24/2020 12:00:00 AM EDT eCW1 ([facility]) Furosemide 20 MG Oral Tablet [Lasix] 12/24/2020 12:00:00 AM EDT eCW1 ([facility]) Furosemide 40 MG Oral Tablet [Lasix] 12/24/2020 12:00:00 AM EDT eCW1 ([facility]) Furosemide 20 MG Oral Tablet [Lasix] 12/24/2020 12:00:00 AM EDT eCW1 ([facility]) Furosemide 20 MG Oral Tablet [Lasix] 12/24/2020 12:00:00 AM EDT eCW1 ([facility]) Furosemide 20 MG Oral Tablet [Lasix] 12/24/2020 12:00:00 AM EDT eCW1 ([facility]) Furosemide 20 MG Oral Tablet [Lasix] 12/24/2020 12:00:00 AM EDT eCW1 ([facility]) Furosemide 20 MG Oral Tablet [Lasix] 12/24/2020 12:00:00 AM EDT eCW1 ([facility]) Furosemide 20 MG Oral Tablet [Lasix] 12/24/2020 12:00:00 AM EDT eCW1 ([facility]) Potassium Chloride CR 15 MEQ 12/24/2020 12:00:00 AM EDT eCW1 ([facility]) Furosemide 20 MG Oral Tablet [Lasix] 12/24/2020 12:00:00 AM EDT eCW1 ([facility]) Potassium Chloride CR 15 MEQ 12/24/2020 12:00:00 AM EDT eCW1 ([facility]) Ferrous Sulfate 325 (65 Fe) MG 11/30/2020 01:00:00 AM EDT [facility] ([facility]) Melatonin 10 MG 11/30/2020 01:00:00 AM EDT [facility] ([facility]) MetFORMIN HCl ER (MOD) 500 MG 11/30/2020 01:00:00 AM EDT [facility]) Lidocaine Pain Relieving 4 % 11/30/2020 01:00:00 AM [facility] Losartan Potassium-HCTZ 100-12.5 MG 11/24/2020 01:00:00 AM EDT [facility] ([facility]) MetFORMIN HCl 500 MG 11/24/2020 01:00:00 AM EDT [facility] ([facility]) Colace 100 MG 11/24/2020 01:00:00 AM EDT [facility] ([facility]) Ferrous Sulfate 324 MG 11/24/2020 01:00:00 AM EDT [facility] ([facility]) Ciprofloxacin HCl 750 MG 11/24/2020 01:00:00 AM EDT [facility]) Lancets 28 G 11/24/2020 01:00:00 AM EDT N [facility] ([facility]) FreeStyle Gravity Lite w/Device 11/24/2020 01:00:00 AM EDT [facility] ([facility]) Tylenol Extra Strength 500 MG 11/24/2020 01:00:00 AM EDT [facility] ([facility]) Tylenol PM 11/24/2020 01:00:00 AM [place] ([facility])
[2021-04-20] MEDS: hydrOXYzine 10 MG TAB PO PRN ×3 (02:16→21:29)
[2021-04-20] MEDS: MONTELUKAST 10 MG TAB PO SCH ×2 (02:16→21:22)
[2021-04-20 03:40] LABS: HEMATOCRIT 25.1 % (42.0-52.0); HEMOGLOBIN 8.3 g/dl (13.5-17.5)
[2021-04-20] MEDS ORDERED: LR 1,000 ML IV SCH (05:20)
[2021-04-20] MEDS ORDERED: FUROSEMIDE 40MG/4ML VIAL (J1940) IV ONE (07:55)
--- NOTE | 2021-04-20 08:10 | ECGEPIP ---
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
[2021-04-20] MEDS: HumaLOG INSULIN (NovoLOG) PER UNIT SC SCH ×4 (08:27→21:00)
[2021-04-20] MEDS ORDERED: SPIRONOLACTONE 25 MG TAB PO SCH (09:00)
[2021-04-20] MEDS ORDERED: FUROSEMIDE 40 MG TAB PO SCH (09:00)
[2021-04-20] MEDS ORDERED: LOSARTAN 50MG TABLET PO SCH (09:00)
--- NOTE | 2021-04-20 10:42 | REP ---
INDICATION: YUE and hematuria COMPARISON: None TECHNIQUE: Real time west scale ultrasound examination using curved array transducer. FINDINGS: Kidneys are normal in reniform shape and demonstrate increased central sinus fat and renovascular calcifications consistent with chronic medical renal disease. No hydronephrosis, nephrolithiasis, cystic or renal mass lesion appreciated. Right kidney measures 10.4 x 5.6 x 4.3 cm. Left kidney measures 11.3 x 4.4 x 5.5 cm. IMPRESSION: 1. Chronic medical renal disease. No hydronephrosis. <Electronically signed by Nabil Mccauley > 04/20/21 [id number]
--- NOTE | 2021-04-20 12:42 | IPNPDOC ---
Subjective Date Seen The patient was seen on 04/20/21. Subjective Chief Complaint/HPI Patient does not have any abdominal pain nausea or vomiting. Patient just shows me the bloody urine in his urine in his urostomy bag. He got 2 units of PRBCs overnight with hemoglobin only up from 7.2-8.3. Will transfuse 2 more units today. Objective Physical Examination General Exam: Positive: Alert, Cooperative, No Acute Distress Eye Exam: Positive: PERRLA, Conjunctiva & lids normal, EOMI; Negative: Sclera icteric ENT Exam: Positive: Atraumatic, Mucous membr. moist/pink, Pharynx Normal Neck Exam: Positive: Supple; Negative: JVD, thyromegaly Chest Exam: Positive: Clear to auscultation, Normal air movement Heart Exam: Positive: Rate Normal, Regular Rhythm, Normal S1, Normal S2; Negative: Murmurs, Rubs Abdomen Exam: Positive: Normal bowel sounds, Soft, Other (Stoma present in the right lower quadrant with bloody urine in the stoma bag); Negative: Tenderness Extremity Exam: Negative: Clubbing, Cyanosis, Edema Psych Exam: Positive: Memory Intact, Oriented x 3 Assessment /Plan Assessment 80-year-old male with past medical history of cirrhosis of liver with portal hypertension, ascites, recently diagnosed with hepatocellular cancer, bladder cancer status post cystoprostatectomy ectomy and creation of ileal conduit in the right lower quadrant in October 2020, recurrent bleeding from stoma due to dilated vascular loops at the orifice of the ileal conduit from portosystemic shunting presented to emergency room on 04/19/2021 with complaints of bleeding from the stoma. Patient was found to be anemic with a hemoglobin of 7.2. He had complained of dizziness and lightheadedness . He and was given 2 units of PRBC transfusion in the ED. patient had similar presentation on 04/13/2021 when his bleeding vessels at the upper edge of the orifice of the stoma were managed with local suturing. Bleeding from the stoma This is been going on recurrently This is due to abnormal vessels at the edge of the stoma with dilated veins due to his portal hypertension and portosystemic shunting. Urology has been consulted Acute on chronic anemia Acute anemia is due to acute blood loss He does have chronic anemia from chronic disease From recurrent bleeding from the edge of the stoma Getting PRBC transfusion Cirrhosis of liver with portal hypertension, ascites Will resume Lasix and spironolactone once renal failure has improved YUE Creatinine at 1.58 which is higher than usual We will continue to monitor Hepatocellular carcinoma Following up with oncology in [place] Plan for an embolization procedure Pruritus Continue home hydroxyzine 10 mg every 4 hours as needed Hypertension Controlled will hold antihypertensive medications at present History of allergies montelukast NIDDM Hold home Metformin Sliding scale insulin in place Plan/VTE VTE Prophylaxis Ordered?: Yes VS, I&O, 24H, Fishbone Vital Signs/I&O Vital Signs Date Time Temp Pulse Resp B/P (MAP) Pulse Ox O2 Delivery O2 Flow Rate FiO2 04/20/21 11:55 98.3 92 15 129/52 96 Room Air I&O- Last 24 Hours up to 6 AM 04/20/21 06:00 Intake Total 920 ml Output Total 1750 ml Balance -830 ml Laboratory Data 24H LABS Laboratory Tests 2 04/19/21 15:29: Immature Granulocyte % (Auto) 0.4, Neutrophils (%) (Auto) 69.0H, Lymphocytes (%) (Auto) 6.4L, Monocytes (%) (Auto) 11.9H, Eosinophils (%) (Auto) 10.5H, Basophils (%) (Auto) 1.8H, Neutrophils # (Auto) 3.5, Lymphocytes # (Auto) 0.3L, Monocytes # (Auto) 0.6, Eosinophils # (Auto) 0.5, Basophils # (Auto) 0.1, Nucleated Red Blood Cells % (auto) 0.0, Anion Gap 7L, Glomerular Filtration Rate 45.3, Calcium Level 10.2, Iron Level 30L, Total Iron Binding Capacity 283, Transferrin % Saturation 10.6L, Ferritin 36, Coronavirus (COVID-19)(PCR) NEGATIVE, Influenza Type A (RT-PCR) NEGATIVE, Influenza Type B (RT-PCR) NEGATIVE, Respiratory Syncytial Virus (PCR) NEGATIVE 04/19/21 15:52: Prothrombin Time 15.0H, Prothromb Time International Ratio 1.14, Activated Partial Thromboplast Time 37.4 04/20/21 03:23: Lactic Acid Level 1.2 04/20/21 05:10: Bedside Glucose (Misc Panel) 162H 04/20/21 11:39: Bedside Glucose (Misc Panel) 162H CBC/BMP Laboratory Tests 04/19/21 15:29 04/20/21 03:23 Rula Mckeon MD Apr 20, 2021 12:42
[2021-04-20 19:27] LABS: HEMATOCRIT 32.1 % (42.0-52.0)
[2021-04-20 19:28] LABS: HEMOGLOBIN 10.9 g/dl (13.5-17.5)
[2021-04-20] MEDS ORDERED: diphenhydrAMINE 25MG CAP PO PRN (23:20)
[2021-04-21] MEDS ORDERED: ACETAMINOPHEN TAB 650MG DOSE (2X325MG) PO ONE (02:50)
[2021-04-21] MEDS: hydrOXYzine 10 MG TAB PO PRN ×2 (05:01→10:39)
[2021-04-21 06:15] LABS: BASO # 0.1 10^3/uL (0.0-0.2); BASO % 1.5 % (0.0-1.0); EOS # 0.5 10^3/uL (0.0-0.5); EOS % 9.1 % (0.0-3.0); HEMATOCRIT 28.2 % (42.0-52.0); HEMOGLOBIN 9.6 g/dl (13.5-17.5); LYMPH # 0.4 10^3/uL (1.5-5.0); LYMPH % 7.8 % (24.0-44.0); MEAN CORPUSCULAR HEMOGLOBIN 28.4 pg (27.0-33.0); MEAN CORPUSCULAR VOLUME 83.4 fl (80.0-96.0); MONO # 0.7 10^3/uL (0.0-0.8); MONO % 13.3 % (2.0-8.0); NEUTROPHILS # 3.7 10^3/uL (1.5-8.5); NEUTROPHILS % 67.9 % (36.0-66.0); PLATELET COUNT, AUTOMATED 143 10^3/uL (150-450); RED BLOOD COUNT 3.38 10^6/uL (4.30-6.10); WHITE BLOOD COUNT 5.5 10^3/uL (4.0-10.0)
[2021-04-21 06:27] VITALS: BP 139/64
[2021-04-21 06:44] LABS: ALT/SGPT 111 U/L (12-78); BILIRUBIN,TOTAL 0.8 MG/DL (0.2-1.0); BLOOD UREA NITROGEN 31 MG/DL (7-18); CALCIUM LEVEL 9.5 MG/DL (8.8-10.2); CARBON DIOXIDE LEVEL 19 MEQ/L (21-32); CHLORIDE LEVEL 110 MEQ/L (98-107); GLOMERULAR FILTRATION RATE > 60.0 (>42); GLUCOSE, FASTING 141 MG/DL (70-100); POTASSIUM SERUM 4.8 MEQ/L (3.5-5.1); SODIUM LEVEL 136 MEQ/L (136-145); TOTAL PROTEIN 6.1 GM/DL (6.4-8.2)
[2021-04-21] MEDS: HumaLOG INSULIN (NovoLOG) PER UNIT SC SCH (07:56)
--- NOTE | 2021-04-21 13:52 | DS.PDOC ---
Discharge Summary General Date of Admission Apr 19, 2021 at 15:42 Date of Discharge 04/21/21 Discharge Summary PROCEDURES PERFORMED DURING STAY: [None]. DISCHARGE DIAGNOSES: Recurrent bleeding from the edge of urostomy stoma Acute blood loss anemia with symptoms YUE Secondary diagnosis Cirrhosis of liver with portal hypertension, ascites. Hepatocellular cancer, Bladder cancer status post cystoprostatectomy and creation of ileal conduit in the right lower quadrant in October 2020, Diabetes Hypertension Radiation proctitis Renal stones Nonalcoholic steatohepatitis Insomnia adenomatous polyp of the colon Leg cramps Knee arthritis COMPLICATIONS/CHIEF COMPLAINT: Symptomatic Anemia. HOSPITAL COURSE: 80-year-old male with past medical history of cirrhosis of liver with portal hypertension, ascites, recently diagnosed with hepatocellular cancer, bladder cancer status post cystoprostatectomy ectomy and creation of ileal conduit in the right lower quadrant in October 2020, recurrent bleeding from stoma due to dilated vascular loops at the orifice of the ileal conduit from portosystemic shunting presented to emergency room on 04/19/2021 with complaints of bleeding from the stoma. Patient was found to be anemic with a hemoglobin of 7.2. He had complained of dizziness and lightheadedness . He and was given 2 units of PRBC transfusion in the ED. patient had similar presentation on 04/13/2021 when his bleeding vessels at the upper edge of the orifice of the stoma were managed with local suturing. Bleeding from the stoma This is been going on recurrently This is due to abnormal vessels at the edge of the stoma with dilated veins due to his portal hypertension and portosystemic shunting. Urology has been consulted Acute on chronic anemia Acute anemia is due to acute blood loss He does have chronic anemia from chronic disease From recurrent bleeding from the edge of the stoma Getting PRBC transfusion Cirrhosis of liver with portal hypertension, ascites resume Lasix and spironolactone YUE Resolved Resume diuretic Stopped losartan Hepatocellular carcinoma Following up with oncology in [place] Plan for an embolization procedure Pruritus Continue home hydroxyzine 10 mg every 4 hours as needed Hypertension Controlled without antihypertensives in hospital Stopped losartan History of allergies montelukast NIDDM Continue Metformin DISCHARGE MEDICATIONS: Please see below. ALLERGIES: Please see below. PHYSICAL EXAMINATION ON DISCHARGE: VITAL SIGNS: Please see below. General Exam: Positive: Alert, Cooperative, No Acute Distress Eye Exam: Positive: PERRLA, Conjunctiva & lids normal, EOMI; Negative: Sclera icteric ENT Exam: Positive: Atraumatic, Mucous membr. moist/pink, Pharynx Normal Neck Exam: Positive: Supple; Negative: JVD, thyromegaly Chest Exam: Positive: Clear to auscultation, Normal air movement Heart Exam: Positive: Rate Normal, Regular Rhythm, Normal S1, Normal S2; Negative: Murmurs, Rubs Abdomen Exam: Positive: Normal bowel sounds, Soft, Other (Stoma present in the right lower quadrant with bloody urine in the stoma bag); Negative: Tenderness Extremity Exam: Negative: Clubbing, Cyanosis, Edema Psych Exam: Positive: Memory Intact, Oriented x 3 LABORATORY DATA: Please see below. ACTIVITY: [As tolerated]. DIET: Carb consistent DISPOSITION: 01 Home, Self-Care. DISCHARGE INSTRUCTIONS: Follow up with own urologist at [facility] DISCHARGE CONDITION: [Stable]. TIME SPENT ON DISCHARGE: 35 minutes. Vital Signs/I&Os Vital Signs Date Time Temp Pulse Resp B/P (MAP) Pulse Ox O2 Delivery O2 Flow Rate FiO2 04/21/21 06:27 98.1 97 18 139/64 (89) 98 Room Air I&O- Last 24 Hours up to 6 AM 04/21/21 06:00 Intake Total 2900 ml Output Total 225 ml Balance 2675 ml Laboratory Data Labs 24H Laboratory Tests 2 04/20/21 16:37: Bedside Glucose (Misc Panel) 242H 04/20/21 21:02: Bedside Glucose (Misc Panel) 194H 04/21/21 05:54: Immature Granulocyte % (Auto) 0.4, Neutrophils (%) (Auto) 67.9H, Lymphocytes (%) (Auto) 7.8L, Monocytes (%) (Auto) 13.3H, Eosinophils (%) (Auto) 9.1H, Basophils (%) (Auto) 1.5H, Neutrophils # (Auto) 3.7, Lymphocytes # (Auto) 0.4L, Monocytes # (Auto) 0.7, Eosinophils # (Auto) 0.5, Basophils # (Auto) 0.1, Nucleated Red Blood Cells % (auto) 0.0, Anion Gap 7L, Glomerular Filtration Rate > 60.0, Calcium Level 9.5, Magnesium Level 2.1, Total Bilirubin 0.8, Aspartate Amino Transf (AST/SGOT) 124H, Alanine Aminotransferase (ALT/SGPT) 111H, Alkaline Phosphatase 153H, Total Protein 6.1L, Albumin 2.0L, Albumin/Globulin Ratio 0.5 CBC/BMP Laboratory Tests 04/20/21 19:09 04/21/21 05:54 FSBS Laboratory Tests Test 04/20/21 16:37 04/20/21 21:02 Range/Units Bedside Glucose (Misc Panel) 242 194 83-110 MG/DL Discharge Medications Scheduled Ferrous Sulfate (Iron) 325 Mg Tablet, 325 MG PO 3XW, (Reported) THU, THU, THU Furosemide (Furosemide) 40 Mg Tablet, 40 MG PO DAILY, (Reported) Metformin HCl (Metformin HCl ER) 500 Mg Tab, 1,000 MG PO QPM, (Reported) Montelukast Sodium (Montelukast Sodium) 10 Mg Tablet, 10 MG PO QHS, (Reported) Polyethylene Glycol 3350 (Polyethylene Glycol 3350) 17 Gm Powd.pack, 17 GM PO DAILY, (Reported) @NOON Spironolactone (Spironolactone) 25 Mg Tablet, 25 MG PO BID, (Reported) Scheduled PRN Diphenhydramine HCl (Benadryl) 25 Mg Capsule, 25 MG PO QHS PRN for SLEEP, (Reported) Docusate Sodium (Colace) 100 Mg Capsule, 100 MG PO BID PRN for CONSTIPATION, (Reported) Hydroxyzine HCl (Hydroxyzine HCl) 10 Mg Tablet, 10 MG PO Q4H PRN for ITCHING, (Reported) Ibuprofen (Motrin Ib) 200 Mg Capsule, 200 MG PO TID PRN for MODERATE PAIN, (Reported) Allergies Coded Allergies: No Known Allergies (Unverified , 08/20/19) Rula Mckeon MD Apr 21, 2021 13:52
[2021-04-22] MEDS ORDERED: FERROUS SULFATE 325MG TAB PO SCH (09:00)
[2021-04-22 09:57] LABS: FOLATE 11.9 NG/ML
[2021-05-14] MEDS ORDERED: TRAM50TA2 (11:13)
[2021-05-14] MEDS ORDERED: META28.32 PO (11:13)
[2021-05-14] MEDS ORDERED: MIRA3350 PO (11:13)
[2021-05-14] MEDS ORDERED: PANT20TA6 (11:13)
[2021-05-14] MEDS ORDERED: FURO20TA2 (11:13)
[2021-05-14] MEDS ORDERED: MELA10CA6 PO (11:14)
== END 2021-04-21 11:26 | disposition home or self-care (01) ==
LOC: M ED 14:51 → M ED INP 15:42 → ENRESERV 04-20 03:08 → M MS5PR 04-20 05:30
PROVIDERS: ADMIT Internal Medicine; ATTEND Internal Medicine
DX: D62 Acute posthemorrhagic anemia (principal); N17.9 Acute kidney failure, unspecified; E11.9 Type 2 diabetes mellitus without complications; K76.6 Portal hypertension; I12.9 Hypertensive chronic kidney disease with stage 1 through stage 4 chronic kidney disease, or unspecified chronic kidney disease; C22.0 Liver cell carcinoma; K62.7 Radiation proctitis; G47.00 Insomnia, unspecified; N20.0 Calculus of kidney; Z79.84 Long term (current) use of oral hypoglycemic drugs; Z79.899 Other long term (current) drug therapy; Z85.51 Personal history of malignant neoplasm of bladder
CPT/HCPCS: 36415; 36430; 76775; 80048; 80053; 82607; 82728; 82746; 83550; 83605; 83735; 85014; 85018; 85025; 85610; 85730; 86850; 86900; 86901; 86920; 87631; 93005; 93041; 94760; 96361; 96374; 96375; 99285; G0378; J1940; P9016

== ENCOUNTER 2021-04-28 10:27 | Inpatient (IN) | payer MEDICARE, BC, OTHER ==
[~2021-04-28] VITALS: Ht 180.3 cm; Wt 77.1 kg
[~2021-04-28 10:27] MED LIST changes: +BENA25CA4 PO; +IBUP200C33 PO
[2021-04-28 11:17] LABS: BASO # 0.1 10^3/uL (0.0-0.2); BASO % 1.5 % (0.0-1.0); EOS # 0.5 10^3/uL (0.0-0.5); EOS % 6.7 % (0.0-3.0); HEMATOCRIT 29.8 % (42.0-52.0); HEMOGLOBIN 9.9 g/dl (13.5-17.5); LYMPH # 0.4 10^3/uL (1.5-5.0); MEAN CORPUSCULAR HEMOGLOBIN 28.9 pg (27.0-33.0); MEAN CORPUSCULAR HGB CONC 33.2 g/dl (32.0-36.5); MEAN CORPUSCULAR VOLUME 86.9 fl (80.0-96.0); MONO # 0.9 10^3/uL (0.0-0.8); MONO % 12.6 % (2.0-8.0); NEUTROPHILS % 72.9 % (36.0-66.0); PLATELET COUNT, AUTOMATED 206 10^3/uL (150-450); RED BLOOD COUNT 3.43 10^6/uL (4.30-6.10); WHITE BLOOD COUNT 6.9 10^3/uL (4.0-10.0)
--- OUTSIDE RECORDS SUMMARY | 2021-04-28 11:23 | CCD | Summary of Care ---
Author Author [facility] Organization [facility] Address Unknown Phone Unavailable Care Team Providers Care Senior Hardware Engineer Name Role Phone Sergey Braun MD PCP Reason for Referral * Diagnostic Radiology (Routine) - Open Diagnoses / Procedures Referred By Contact Referred To Conta ct Specialty Diagnoses Vascular varices of stoma, initial encounter Procedures IR Venogram Organ Eulalia Muñiz MD [address], [place] [address] Email: [email or web address] Referral ID Status Reason Start Date Expiration Visits Vi sits Date Requested Authorized [id number] Open 04/17/2021 1 1 Reason for Visit * Auth/Cert Diagnoses / Procedures Referred By Contact Referred To Conta ct Specialty Diagnoses Vascular varices of stoma, initial encounter [id number] Procedures IR VENOGRAM ORGAN Referral ID Status Reason Start Date Expiration Visits Vi sits Date Requested Authorized [id number] 1 1 Encounter Details Care Team Description Date Type Department Eulalia Muñiz MD [address], [place] [address] [email or web address] Humberto Perdomo MD [address] [place] [address] [email or web address] Alexia Pereira MD [address] [facility] 2nd [place] [address] [email or web address] Ousmane Sanders MD [address] [place] [address] [email or web address] Marcos Kaye MD [address] [place] [address] [email or web address] Vascular varices of stoma, initial encou nter 04/23/2021 Hospital [facility] [address] - Encounter [address] [facility] 04/24/2021 [place] [address] Allergies Comments Active Allergy Reactions Severity Noted Date Bicalutamide Palpitations Low 02/28/2021 documented as of this encounter (statuses as of 04/24/2021) Medications End Date Status Medication Sig Dispensed Refills Start Date Active Docusate Sodium 100 MG Take 100 mg 0 Oral Capsule (COLACE) by mouth Two Times Daily Active Spironolactone 100 MG Take 100 mg 0 Oral Tablet (ALDACTONE) by mouth daily Active Lidocaine 5 % External Apply 0 Ointment (XYLOCAINE) topically as needed Active metFORMIN HCl 500 MG Oral Take 500 mg 0 Tablet (GLUCOPHAGE) by mouth Two times daily with meals Active Losartan Potassium 50 MG Take 25 mg by 0 Oral Tablet (COZAAR) mouth daily Active hydrOXYzine HCl 10 MG Take 10 mg by 0 Oral Tablet (ATARAX) mouth Three times daily as needed for Itching Active Furosemide 20 MG Oral Take 20 mg by 0 Tablet (LASIX) mouth daily Active Ferrous Sulfate 325 (65 Take 325 mg 0 Fe) MG Oral Tablet by mouth daily with breakfast Active Psyllium 28.3 % Oral Take 1 packet 0 Packet (METAMUCIL) by mouth Two Times Daily Active Montelukast Sodium 10 MG Take 1 tablet 30 tablet 5 Oral Tablet (Singulair) by mouth 1 nightly Active Polyethylene Glycol 3350 Take 17 g by 0 17 GM Oral Packet mouth daily (MIRALAX) Please substitute bottle for packets, if packets are unavailable. Active diphenhydrAMINE HCl 25 MG Take 25 mg by 0 Oral Capsule (BENADRYL) mouth every 6 (six) hours as needed for Itching Active Ibuprofen 200 MG Oral Take 200 mg 0 Tablet (MOTRIN) by mouth every 6 (six) hours as needed for Pain 04/23/2022 Active Nadolol 20 MG Oral Tablet Take 1 tablet 30 tablet 11 (Corgard) by mouth 1 nightly 04/23/2022 Active Sucralfate 1 GM Oral Take 1 tablet 120 tablet 11 Tablet (Carafate) by mouth Four 1 times daily documented as of this encounter (statuses as of 04/24/2021) Active Problems Patient Care Coordination Note Carmelita Nunez Hem/Onc sheet hanger at [facility] (work cell [phone]) Problem Noted Date 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 No t asked How many drinks containing alcohol do you have on No t asked a typical day when you are drinking? How often do you have six or more drinks on one Not asked occasion? Comment: very rarely 04/23/2021 Sex Assigned at Date Recorded Not on file Date Recorded COVID-19 Exposure Response 04/23/2021 10:05 AM EST In the last month, have you been in contact with No / Unsure someone who was confirmed or suspected to have Coronavirus / COVID-19? documented as of this encounter Last Filed Vital Signs Reading Time Taken Comments Vital Sign 143/65 04/24/2021 4:30 PM EST Blood Pressure 97 04/24/2021 4:30 PM EST Pulse 36.8 C (98.2 F) 04/24/2021 3:30 PM EST Temperature 16 04/24/2021 4:30 PM EST Respiratory Rate 97% 04/24/2021 4:30 PM EST Oxygen Saturation - - Inhaled Oxygen Concentration 77.1 kg (170 lb) 04/23/2021 10:30 AM EST Weight 180.3 cm (5' 11") 04/23/2021 10:30 AM EST Height 23.71 04/23/2021 10:30 AM EST Body Mass Index documented in this encounter Discharge Summaries * Ousmane Sanders MD - 04/24/2021 4:12 PM EST Discharge Summary Patient Braulio Son Admit Date 04/23/2021 1940 Discharge Date 04/24/2021 PCP Sergey Braun MD Discharge Physician Ousmane Sanders MD Primary Discharge Diagnosis: Stomal varices Secondary Discharge Diagnosis: Stomal varices Hepatocellular cancer History & Hospital Course Reason for Admission: Stomal varices Brief history and Hospital Course: Mr.Robert Hamzah Sonis a 80 y.o.malewith a past medical history of bladder cancer (nonmuscle invasive, treated with previous resection and BCG), prostate cancer Laney 5+5 diagnosed in 2004 treated with EBRT, status post p rostatectomy and cystectomy in October 2020,ileal conduit stoma,and recentl y diagnosed hepatocellular carcinoma who presents for transsplenic sclerotherapy via IR. Patient has no history of alcoholic abuse or previous history of underlying live r disease. With respect to HCC, hehad seen outpatient doctor noted to have e levated LFTs in December 2020. He then underwent work-up which showed a 3.56 c m mass with a cirrhotic liver with ascites. Mass was biopsied 02/07/2021 at [facility] and turned out to be HCC. He had been havingbleeding from his ile al conduit stoma. He was then referred to IR for Y 90 radio embolization . 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 Direct portography via the spleen performed which showed prominent esophageal varices and a superior mesenteric a ngiogram was done as well which showed significant peristomal varices. He had IR guided transsplenic sclerotherapy on April 23 followed by an EGD on April 24. 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 EGD showed normal duodenum, portal hypertensive g astropathy, non-bleeding grade III esophageal varices, incompletely eradicated b anded, no specimens collected. Recommended Nadolol 20 mg daily at night. Patient was seen in 1 day surgery. He denies any signs of upper or lower GI blee ding. He states that he feels fine and that the area around his stoma does not l ook inflamed. He denies any lightheadedness, dizziness, palpitations. He is hemo dynamically stable and medically cleared to be discharged home. Per GI rec start ed on Carafate for 1 month for chest pain 2/2 EGD and Nadolol 20mg nightly. No o ther changes to his medications were made. Consults: Gastroenterology, Interventional Radiology Relevant studies done during this hospitalization: IR Arteriogram Visceral Result Date: 04/14/2021 EXAMINATION: VISCERAL ANGIOGRAPHY FOR Y 90 MAPPING AND TRANS-SPLENIC PORTOGRAPHY , 04/09/2021 CLINICAL INDICATIONS: 80-year-old male with 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 Of note, the patient was complaining of bleeding from the ileal conduit stoma for the past two months . Radiation Dosimetry: Fluoroscopy time: 29.7 minutes, Fluoroscopy Dose: 750 mGy . Consent: Following discussion of the risks, benefits and alternatives of the p rocedure, and written informed consent was obtained. Moderate Sedation: I perfor med Moderate Sedation with intravenous 2 mg of Versed and 100 mcg of fentanyl fo r 180 minutes Operators: IR attending: Eulalia Muñiz MD Fellow: Marcos rolon MD Resident: Riana Alexander M.D. and Adela Daniels TIME O UT: Prior to the procedure a time out was performed in the presence of the patie nt and all personnel involved in this case. The patient identity, procedure typ e, procedure side/site, and allergies were verified. TECHNIQUE: Procedures perfo rmed: 1. Left radial access under direct ultrasound guidance. 2. Abdominal Aorto gram 3. Selective DSA arteriogram of the superior mesentericartery. 4. Selective DSA arteriogram of the celiac artery 5.Selective DSA angiogram of the splenic a rtery 6 Subselective DSA arteriogram of the common hepatic artery. 6. Splenic ve in access under ultrasound guidance 7. DSA splenic venography 8. DSA superior me senteric venography 8. Left radial access hemostasis with a TR band. Position: T he patient was transferred to the angiography suite and was positioned supine on the procedural table. The left wrist was prepped and draped using maximum steri le barrier technique. This consisted of cap, mask, hand hygiene, sterile gown an d gloves, 2% Chlorhexidine solution for cutaneous antisepsis and occlusive steri le draping of the field. Procedure: The left wrist was evaluated for radial martha rial access prior to the procedure. Ultrasound demonstrated a patent left radial artery that measured 28 mm and an ultrasound image of this was saved. A Barbeau test was performed. The patient showed type A waveform. The left wrist was prep ped and draped using standard sterile technique. 2% lidocaine was used for local anesthesia. Direct ultrasound guidance was used to perform single wall left rad ial artery puncture and an image of this was saved into PACS. A 0.018 wire was p laced through the wire to secure access. After removing the needle a 5 Fr slim h ydrophilic radial access vascular sheath was placed over the wire. At this point , 200 mcg of nitroglycerin and 25 mg of hydralazine were intravenously infused. A total of 3000 units of heparin was intravenously administered. Then a 0.035 Be ntson wire was advanced through the left radial artery sheath. Over a 0.035 Bent son wire, a 5 Fr Jennifer catheter was advanced into the abdominal aorta and an abd ominal aortogram was obtained (20 cc/sec for 30 cm). This demonstrated origins o f the visceral arteries. Then the catheter was advanced to select the superior m esenteric artery artery and an angiogram was performed (5cc/sec for 25 cc). This demonstrated patent and standard superior mesenteric artery anatomy. No portal vein was visualized, suggestive of hepatofugal flow. Following this, a 5 Fr Lydia h catheter was retracted within the abdominal aorta to select the celiac artery and a selective angiogram was performed (5cc/sec for 15 cc). This demonstrated p atent and standard hepatic arterial anatomy. Opacification of the portal venous system is noted, suggestive of arterial portal shunting. To visualize the main p ortal vein, the catheter was advanced into the splenic artery and a splenic martha riogram obtained (5 cc/s for 15 cc). No portal vein could be visualized, suggest bernardino of hepatofugal flow. The catheter was then introduced into the common hepati c artery and angiogram obtained (4cc/sec for 12 cc). This demonstrated faint opa cification of the right portal system, suggestive of a tumor thrombus. The left portal vein was clearly visualized. Of note, a large filling defect was seen wit hin the main portal vein, suggestive of a thrombus (tumor vs bland). Since arter ial portal shunting was quite significant, a decision was made not to infuse cristiana hnetium 99m MAA. To further investigate the extent of portal vein occlusion and possible stoma varices, consent for direct portography via a trans-splenic appro ach was obtained from the patient's family. Under ultrasound guidance access to the intraparenchymal splenic vein was obtained with a micropuncture set. An Accu Stick system was used to upsize the tract. Through the AccuStick sheath, a 4 Rosalino nch Kumpe catheter was introduced into the splenic vein and splenic venogram obt ained (hand run). 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 The catheter was further advanced into the superior mesenteric vein and venogram (hand run) obtained. This demonstrated sh unt varices revascularization of multiple superficial veins. Since all the infla mmation the study was obtained. A decision was made to terminate the procedure. The left radial artery sheath was removed. Hemostasis was achieved utilizing a T R band insufflated to 14 cc of air and which was deflated later as per protocol. IMPRESSION: 1. Visceral arteriogram demonstrated significant arterial portal sh unting with visualization of the left portal vein and a large filling defect wit hin the main portal vein (bland thrombus versus tumor thrombus). For this reason , a decision was made not to infuse technetium 99m MAA. 2. 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 Stoma varices visualized on superior mesenteric venography IR Venogram Organ Result Date: 04/24/2021 PROCEDURE: 1. Peristomal varices venogram 2. Sclerotherapy of peristomal varices Date of procedure: 04/23/2021 Clinical Indication: 80-year-old male with history of HCC and portal venous tumor/plan thrombosis, with bleeding from ileal conduit conduit, which on the prior CT scan and portogram was suggested to be related to peristomal varices due to portal hypertension. Manager Furniture: Eulalia Muñiz M.D. Fellow: Marcos Kaye M.D. Sedation: Moderate sedation with 1 mg of Versed and 50 mcg of fentanyl for 30 minutes. Fluoroscopy time: 2.5 minutes Fluo roscopy dose: 126.7 mGy Procedure: The risks, benefits and alternative to the pr ocedure were detailed discussed with the patient and informed written consent ob tained. Revenue Tax Specialist ultrasound imaging of the peristomal area showed tangles of veins surrounding the stoma. A large vein was selected and direct ultrasound guidance a 22-gauge Chiba needle was advanced into this vein. Injection of contrast showe d enhancement of the varices surrounding the stoma with a good flow through supe rficial abdominal veins (caput medusae). A mixture of lipiodol, STS and air (2:8 :10 mL) was made into foam and was projected into the varices under fluoroscopy guidance and it was stopped once we saw enhancement of the efferent veins. We ap plied manual pressure on the abdominal wall in the superior aspect of the stoma to prevent superficial venous exit flow. The needle was removed and sterile dres sing was applied. Patient left the room in stable condition. Findings: Limited u ltrasound examination demonstrated multiple peristomal varices. Impression: Successful image guided sclerotherapy of the peristomal varices with direct puncture, as described above. Plan: Follow up in a month (likely telemed icine). Laboratory Data (Most Recent in Past 3 Days) Lab 04/23/21 1056 04/23/21 1056 04/24/21 0931 WBC 6.9 < > 5.9 HGB 10.0* < > 9.2* MCV 85.9 < > 86.7 PLT 174 -- 141* < > = values in this interval not displayed. Lab 04/23/21 1056 PROT 7.1 ALBUMIN 3.2* AST 124* ALT 114* TBILI 1.3* ALKPHOS 200* Lab 04/23/21 1056 NA 132* K 4.4 CL 104 BICARBONATE 17* GLUCOSE 146* BUN 35* CREATININE 1.24* Lab 04/23/21 1056 INR 1.16 Discharge Medications Discharge Medications: Medication List Discharge Medications Sig/Dispense diphenhydrAMINE 25 mg capsule Commonly known as: BENADRYL Si mg, Oral, Every 6 hours PRN docusate sodium 100 MG capsule Commonly known as: COLACE Si mg, Oral, 2 Times Daily ferrous sulfate 325 (65 Fe) mg tablet Si mg, Oral, Daily with Breakfast furosemide 20 MG tablet Commonly known as: LASIX Si mg, Oral, Daily Standard hydrOXYzine 10 MG tablet Commonly known as: ATARAX Si mg, Oral, Three Times Daily-PRN ibuprofen 200 MG tablet Commonly known as: MOTRIN Si mg, Oral, Every 6 hours PRN lidocaine 5 % ointment Commonly known as: XYLOCAINE Sig: Topical, PRN losartan 50 MG tablet Commonly known as: COZAAR Si mg, Oral, Daily Standard metFORMIN 500 MG tablet Commonly known as: GLUCOPHAGE Si mg, Oral, 2 Times Daily With Meals montelukast 10 MG tablet Commonly known as: Singulair Si mg, Oral, Nightly Dispense: 30 tablet nadolol 20 MG tablet Commonly known as: Corgard Si mg, Oral, Nightly Dispense: 30 tablet polyethylene glycol 17 g packet Commonly known as: MIRALAX Si g, Oral, Daily Standard, Please substitute bottle for packets, if pack ets are unavailable. psyllium 28.3 % powder Commonly known as: METAMUCIL Si packet, Oral, 2 Times Daily spironolactone 100 MG tablet Commonly known as: ALDACTONE Si mg, Oral, Daily Standard sucralfate 1 g tablet Commonly known as: Carafate Si g, Oral, Four Times Daily Standard Dispense: 120 tablet Allergies:Bicalutamide Medications Discontinued: None Medications Added or Modified: Nadolol 20mg at night Carafate for 1 month Medications, including new medication and medication changes, were discussed wit h patient and/or family prior to discharge. Follow Up Appointments & Patient Instructions Future Appointments Date Time Provider Department Center 05/09/2021 10:30 AM Jermaine Freeman DO [facility] None 05/15/2021 9:40 AM KELSEY Ray [facility] None 06/27/2021 2:15 PM ARCADIO Boone [facility] None Discharge planning was discussed with the patient and/or family. Please see disc harge instructions provided to the patient OR After-Visit summary on file for ad ditional information. Discharge Recommendations & Disposition Communication/Instructions to the PCP: Yes Please see patient within one week for post hospitalization follow up. Continue to monitor hemoglobin and for signs of bleeding. Per GI, started on night 20mg Nadolol so please monitor heart rate and blood pre ssure. Prescribed one month of Carafate due to chest pain after procedure. Pending labs/ tests done in hospital and still need to be followed up after disc harge: None Follow-up with PCP: 1 week Referrals: None Disposition: The patient was hemodynamically stable at the time of discharge. Discharge to: H ome Diet: diabetic diet Activity: activity as tolerated Code Status: Full Code Condition Upon Discharge: Cognitive: Alert and oriented Functional: Independent Social Supports: Family in home The patient was discussed with Ousmane Sanders MD who agrees with the assessme nt and plan as noted above. Signature:Frank Chaney MD Date/Time: April 24, 2021 4:12 PM Attending addendum: I saw and examined the patient, discussed case with the medicine resident and ag ree with the above note of stable medical discharge. Ousmane aSnders MD Medicine Attending [facility] [phone] documented in this encounter Discharge Instructions * Instructions* Frank Dennis Ma, MD - 04/24/2021 2:03 PM EST Please see PCP within one week for post hospitalization follow up. IR will schedule a telemedicine follow up appointment in one month. Please take Nadolol 20mg each night for your esophageal varices. Please take Carafate for 1 month for your chest pain after your EGD procedure. documented in this encounter Progress Notes * Nicole Dumont RN - 04/24/2021 5:29 PM EST 1710-All medications and discharge instructions reviewed. Patient states underst anding and is comfortable with discharge. Copies of discharge paperwork provided . PIV DC'd intact. Wheeled to front [place], to meet son, for transport home. * Marcos Kaye MD - 04/24/2021 11:30 AM EST Images from the original note were not included. The patient was seen and examined at the bedside. He is s/p sclerotherapy of the stomal varices yesterday. Today he has no pain, nausea, vomiting or fever, no a bdominal pain. He only complaint is generalized itching. Abdomen soft with no te nderness. The urine in the ostomy bag is clear with no blood. VSS. Visit Vitals BP 125/64 (BP Location: Right arm, Patient Position: Lying) Pulse 98 Temp 36.7 C (98.1 F) (Oral) Resp 16 Ht 1.803 m (5' 11") Wt 77.1 kg (170 lb) SpO2 99% BMI 23.71 kg/m Lab Results Today 0931 WBC: 5.9 RBC: 3.23 HGB: 9.2 HCT: 28.0 MCV: 86.7 MCH: 28.5 MCHC: 32.9 RDW: 17.1 PLT: 141 NEUTR PCT: 78 LYMPH PCT: 4 MONO PCT: 11 EOS PCT: 6 BASO MANUAL: 1 NEUTR ABS: 4.57 LYMPH ABS: 0.24 MONO ABS: 0.64 BASO ABS: 0.05 He can be discharged from IR standpoint. We will schedule a telemedicine visit i n about a month. Associated attestation - Eulalia Muñiz MD - 04/24/2021 4:36 PM EST I concur with this note. I personally examined the patient at bedside and discus sed this case with Dr. Kaye, IR fellow. He can be discharged home today fro m an IR standpoint. Appreciate medicine team's assistance. * Nicole Dumont RN - 04/23/2021 9:43 PM EST 2114- Patient attempted to empty ileoconduit in BR but was not familiar with the appliance. The appliance came apart and urine spilled onto the floor. Approxima tely 300cc. Jacque Thornton RN cleaned patient and assisted getting him back to bed. A ppliance changed and fitted with a hurst bag to gravity. * Eulalia Muñiz MD - 04/23/2021 12:42 PM EST IR staff note I extensively discussed possible complications associated with sclerotherapy of the stomal varices. The most concerning ones include worsening esophageal varice s which may rupture and result in life-threatening hemorrhage, worsening ascites which may require more frequent paracentesis and developing varices at another site such as the duodenum or other bowel with Mr.and Ms. Son. They verbalized understanding but still want to proceed because of intractable nature of bleedi ng from the stoma. documented in this encounter H&P Notes * KELSEY Villalobos - 04/24/2021 7:01 AM EST PRESEDATION ASSESSMENT Diagnosis: Pre-Sedation Assessment Chief Complaint/History of Present Illness: Evaluation for Esophageal varices Past Medical/Surgical History: Past Medical History: Diagnosis Date Arthritis Bladder cancer Diabetes mellitus HCC (hepatocellular carcinoma) Hypercholesterolemia Prostate cancer Thrombocytopenia Past Surgical History: Procedure Laterality Date COLONOSCOPY Problems with Sedation/Anesthesia? no Potential Drug/Sedative Interaction? no Family History: family history includes Cancer in his maternal grandmother; No K nown Problems in his mother. Review of Systems: No fevers or chills, usual state of health Current Medications: Home Medications Medication Sig diphenhydrAMINE HCl 25 MG Oral Capsule (BENADRYL) Take 25 mg by mouth every 6 (s ix) hours as needed for Itching Docusate Sodium 100 MG Oral Capsule (COLACE) Take 100 mg by mouth Two Times Kimberly y Ferrous Sulfate 325 (65 Fe) MG Oral Tablet Take 325 mg by mouth daily with break fast Furosemide 20 MG Oral Tablet (LASIX) Take 20 mg by mouth daily hydrOXYzine HCl 10 MG Oral Tablet (ATARAX) Take 10 mg by mouth Three times daily as needed for Itching Ibuprofen 200 MG Oral Tablet (MOTRIN) Take 200 mg by mouth every 6 (six) hours a s needed for Pain Lidocaine 5 % External Ointment (XYLOCAINE) Apply topically as needed metFORMIN HCl 500 MG Oral Tablet (GLUCOPHAGE) Take 500 mg by mouth Two times cornel ly with meals Montelukast Sodium 10 MG Oral Tablet (Singulair) Take 1 tablet by mouth nightly Polyethylene Glycol 3350 17 GM Oral Packet (MIRALAX) Take [address] daily Pl ease substitute bottle for packets, if packets are unavailable. Spironolactone 100 MG Oral Tablet (ALDACTONE) Take 100 mg by mouth daily Losartan Potassium 50 MG Oral Tablet (COZAAR) Take 25 mg by mouth daily Psyllium 28.3 % Oral Packet (METAMUCIL) Take 1 packet by mouth Two Times Daily Allergies/Reactions Allergies Allergen Reactions Bicalutamide Palpitations Physical Exam: Visit Vitals BP 122/53 (BP Location: Right arm) Pulse 92 Temp 36.7 C (98.1 F) (Oral) Resp 16 Ht 1.803 m (5' 11") Wt 77.1 kg (170 lb) SpO2 95% BMI 23.71 kg/m Airway: III Lungs:CTA Heart:RRR ASA Physical Status Classification: ASA 3 - Patient with moderate systemic disea se with functional limitations Treatment Plan: Monitored Anesthesia Care Rationale: Comfort and analgesia Procedure: EGD The risks of the procedure including but not limited to an esophageal tear, perf oration, bleeding, systemic infections, along with the risks of moderate sedatio n/anesthesia including aspiration, pneumonia, airway/respiratory complications n eeding intubation, cardiorespiratory complications were explained to the patient and he expresses understanding and willingness to go ahead with the procedure. Associated attestation - Jet Guerrero MD - 04/24/2021 9:23 AM EST Jet Guerrero MD * Rita Wise MD - 04/23/2021 10:47 AM EST History & Physical Patient Braulio Son PCP Sergey Braun MD Admission Date 04/23/2021 Chief Complaint/Reason for Admission: Braulio is coming in today from home , for transsplenic sclerotherapy with Dr Holly gold. Subjective History of Presenting Illness Mr. Braulio Son is a 80 y.o. male with a past medical history of bladder can cer (nonmuscle invasive, treated with previous resection and BCG), prostate canc er [place] 5+5 diagnosed in 2004 treated with EBRT, status post prostatectomy an d cystectomy in October 2020, ileal conduit stoma, and recently diagnosed hepatocel lular carcinoma who presents for transsplenic sclerotherapy via IR. Patient has no history of alcoholic abuse or previous history of underlying live r disease. With respect to HCC, he had seen outpatient doctor noted to have elev ated LFTs in December 2020. He then underwent work-up which showed a 3.56 cm mass with a cirrhotic liver with ascites. Mass was biopsied 02/07/2021 at his hospital and turned out to be HCC. He had been having bleeding from his ileal conduit s kenny. He was then referred to IR for Y 90 radio embolization. 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 Direct portography via the spleen performed which showed prominent esophageal varices and a superior mesenteric angiogram was done as wel l which showed significant peristomal varices. For this he will be having IR guided procedure; after this he is to have EGD. 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 Patient was seen in 1 day surgery. He denies any actual upper or lower GI bleed at this time. He feels that the bleeding from his stoma has lately improved. He denies any lightheadedness, dizziness, palpitations. He does report that he did go to [facility] ER last week where he got 2 units of blood and was then admi tted and received 2 more units. Active Ambulatory Problems Diagnosis Date Noted Hepatocellular carcinoma 03/04/2021 Abnormal results of liver function studies 03/04/2021 Resolved Ambulatory Problems Diagnosis Date Noted No Resolved Ambulatory Problems Past Medical History: Diagnosis Date Arthritis Bladder cancer Diabetes mellitus HCC (hepatocellular carcinoma) Hypercholesterolemia Prostate cancer Thrombocytopenia Past Surgical History COLONOSCOPY Social History He is . He lives with his spouse. He reports that he has never smoked. He has never used smokeless tobacco. He reports current alcohol use. He reports th at he does not use drugs. Travel: No recent history of long distance travel. Family History His family history includes Cancer in his maternal grandmother; No Known Problem s in his mother. Home Medications Medication Sig Docusate Sodium 100 MG Oral Capsule (COLACE) Take 100 mg by mouth Two Times Kimberly y Ferrous Sulfate 325 (65 Fe) MG Oral Tablet Take 325 mg by mouth daily with break fast Furosemide 20 MG Oral Tablet (LASIX) Take 20 mg by mouth daily hydrOXYzine HCl 10 MG Oral Tablet (ATARAX) Take 10 mg by mouth Three times daily as needed for Itching Lidocaine 5 % External Ointment (XYLOCAINE) Apply topically as needed Losartan Potassium 50 MG Oral Tablet (COZAAR) Take 25 mg by mouth daily metFORMIN HCl 500 MG Oral Tablet (GLUCOPHAGE) Take 500 mg by mouth Two times cornel ly with meals Montelukast Sodium 10 MG Oral Tablet (Singulair) Take 1 tablet by mouth nightly Psyllium 28.3 % Oral Packet (METAMUCIL) Take 1 packet by mouth Two Times Daily Spironolactone 100 MG Oral Tablet (ALDACTONE) Take 100 mg by mouth daily Allergies: Bicalutamide Review of Systems Constitutional: Negative for activity change, appetite change, chills, fatigue a nd fever. HENT: Negative for congestion, postnasal drip, rhinorrhea, sinus pressure and si nus pain. Eyes: Negative for visual disturbance. Respiratory: Negative for cough, choking, chest tightness and shortness of breat h. Cardiovascular: Negative for chest pain, palpitations and leg swelling. Gastrointestinal: Negative for abdominal distention, abdominal pain, anal bleedi ng, blood in stool, constipation, diarrhea, nausea, rectal pain and vomiting. Endocrine: Negative for cold intolerance and heat intolerance. Genitourinary: Negative for difficulty urinating and urgency. Musculoskeletal: Negative for arthralgias and back pain. Skin: Negative for color change and pallor. Neurological: Negative for dizziness, syncope and light-headedness. Hematological: Does not bruise/bleed easily. Objective Temp: [36.4 C (97.5 F)] 36.4 C (97.5 F) Pulse: [98] 98 Resp: [18] 18 BP: (147)/(62) 147/62 SpO2: [98 %] 98 % O2 Therapy: Room air Physical Exam Constitutional: He is oriented to person, place, and time. Non-toxic appearance . No distress. HENT: Head: Normocephalic and atraumatic. Right Ear: External ear normal. Left Ear: External ear normal. Nose: Nose normal. No rhinorrhea or congestion. Mouth/Throat: Mucous membranes are moist. No oropharyngeal exudate or posterior oropharyngeal erythema. Eyes: Conjunctivae are normal. No scleral icterus. Cardiovascular: Normal rate, regular rhythm, normal heart sounds and normal puls es. Exam reveals no gallop. No murmur heard. Pulmonary/Chest: Effort normal and breath sounds normal. No respiratory distress . He has no wheezes. He has no rales. Abdominal: Soft. Normal appearance. He exhibits no mass. There is no guarding. N o hernia. Mildly distended, non rigid, good BS Ileal conduit stoma bag in place with red ringed urine Musculoskeletal: General: Normal range of motion. Cervical back: Normal range of motion. Right lower leg: No edema. Left lower leg: No edema. Neurological: He is alert and oriented to person, place, and time. Skin: Skin is warm. Capillary refill takes less than 2 seconds. No bruising note d. No jaundice. Psychiatric: His behavior is normal. Mood and thought content normal. Nursing note and vitals reviewed. Laboratory Data CBC: 04/18/21 1201 04/09/21 0747 WBC 4.4 3.9* RBC 3.04* 2.94* HGB 8.3* 8.3* HCT 25.4* 24.7* PLT 192 133* BMP: 04/18/21 1201 04/09/21 0747 NA 131* 130* K 4.9 4.9 CL 101 102 BICARBONATE 20* 15* GLUCOSE 175* 114 BUN 37* 55* CREATININE 1.47* 1.50* BCR 25 37 OSMOLALITY 285 286 GFRAA 51* 49* GFRNONAA 44* 43* Assessment & Plan Mr. Braulio oSn is a 80 y.o. male with a PMH of prostate CA sp cystoprostate ctomy and ileal conduit stoma and recently diagnosed HCC (not yet on chemo) with portal vein thrombosis (not a candidate for Y90) who presents for transpplenic sclerotherapy for stomal variceal bleeding with IR. He will then be having EGD o n 04/24 w GI. #Stomal variceal bleeding related in the setting of HCC #Non bleeding esophageal varices #HCC #Cirrhosis Pt having bleeding from stoma, requiring 4 units last week at OSH. Seen by IR earlier at [facility] and direct portography via the spleen performed which anahi wed prominent esophageal varices and a superior mesenteric angiogram was done as well which showed significant peristomal varices. Plan for IR guided sclerotherapy with Dr. Muñiz 04/23 After stomal variceal sclerotherapy plan will be for upper GI endoscopy (p atient known to Dr Guerrero already). GI has been consulted inpatient, appreciate in put. Continue w Lasix 40 mg daily Spironolactone 25 mg BID #T2DM not on insulin LDSS, FC AC HS Consistent carb diet when done with procedure DVT Prophylaxis: SCD's while in bed GI Prophylaxis: PPi- reason: Risk of GI bleed Disposition: Place patient in ambulatory Advance Care Planning: Patient has capacity to assign health care proxy: Yes Patient has: Surrogate decision maker MOLST Form reviewed: N/A Patient has capacity to discuss goals of care: Yes Code Status: Full code The patient was discussed with Humberto Perdomo MD who agrees with the assessment and plan as noted above. Signature: Rita Wise MD Date/Time: April 23, 2021 10:47 AM Associated attestation - Humberto Perdomo MD - 04/23/2021 5:45 PM EST The patient was seen and examined by me. I have discussed the case with the topher tejada. I have interviewed the patient and performed a physical examination. Constantin welch refer to the resident's note for details. I concur with that note. * Carri Monroe NP - 04/23/2021 10:09 AM EST Interventional Radiology Preprocedure HISTORY AND PHYSICAL Diagnosis:No diagnosis found. Patient Active Problem List Diagnosis Hepatocellular carcinoma Abnormal results of liver function studies History of present illness: Patient is a 80 y.o. male who is seen for an Image g uided Venogram/ Trans-splenic Sclerotherapy of stomal varices Vascular varices of stoma, initial encounter with Dr. Muñiz 04/09/2021 Image guided Sirtex - Y90 mapping, Hepatocellular carcinoma Patient will be admitted over night, followed by the [facility] and Dr. Perdomo. , from GI will perform an EGD tomorrow. Patients stated that he was released from [facility] on Thursday. He was taken to the ED where he was admitted for large amount of blood in his osto my. He has been followed by his Drs, for continued bleeding in his ostomy. His stated that he did have a blood transfusion while in the hospital. He is here today per the patient and his , after speaking to Dr. Muñiz he will proceed With a stomal variceal embolization. Past Medical history: Past Medical History: Diagnosis Date Arthritis Bladder cancer Diabetes mellitus HCC (hepatocellular carcinoma) Hypercholesterolemia Prostate cancer Thrombocytopenia Past Surgical history: Past Surgical History: Procedure Laterality Date COLONOSCOPY Family History: Family History Problem Relation Age of Onset No Known Problems Mother Cancer Maternal Grandmother REVIEW OF SYSTEMS Pertinent items are noted in HPI. Current medications: No current facility-administered medications for this encounter. Allergies: Allergies Allergen Reactions Bicalutamide Palpitations Problems with sedation/anesthesia? no Potential Drug/ Sedative Interaction?no PHYSICAL EXAM Vitals: Value Min Max Temp 36.4 C (97.5 F) 36.4 C (97.5 F) Pulse 98 98 Resp 18 18 BP: Systolic 147 147 BP: Diastolic 62 62 SpO2 98 % 98 % Exam: General Appearance: Awake and alert, jaundiced. Airway: III (soft and hard palate and base of uvula visible) Lungs: Clear to auscultation bilaterally, respirations unlabored Heart: Regular rate and rhythm Ostomy with small amountt of light color blood and a small clot. ASA Physical Status Classification: ASA 3 - Patient with moderate systemic disea se with functional limitations Local/Fentenyl at the discretion of the procedural radiologist Rationale: Pain Control Procedure:History of present illness: Image guided Venogram/ Trans-splenic Scler otherapy of stomal varices, DAY OF SURGERY VERIFICATION: There have been no significant clinical changes sin ce the completion of the above H&P. documented in this encounter Consult Notes * Jet Guerrero MD - 04/23/2021 4:49 PM EST Associated Order(s): IP CONSULT TO GI Gastroenterology Consult Note Reason for consult: Evaluation of esophageal varices Physician requesting consult: Alexia Pereira MD Physician performing the consult: Dr. Gurerero HISTORY History of Presenting Illness Mr. Braulio Son is a 80 y.o. male with a past medical history of bladder can cer status post cystectomy with ileal conduit stoma formation, prostate cancer s /p radical prostatectomy, EBRT, new diagnosis of hepatocellular carcinoma, who i s admitted to the hospital for sclerotherapy of the stomal varices due to worsen ing bleeding from the stoma site. GI has been consulted for evaluation of esopha geal varices. Patient was taken to the [facility] ED on Thursday when he was admitted fo r large amount of bleeding from his stomal site. Patient stated that he require d 4 units of blood to be transfused at the outside facility. The patient is johnnie ng [facility] stomal variceal sclerotherapy by interventional radio logy. Upon meeting with the patient he states that he is doing well. Patient denies a bdominal pain, nausea, vomiting, chest pain, palpitations, shortness of headache , dizziness. Patient is vitally stable, labs are largely stable as well. Previous Endoscopies: None available Past Medical & Surgical History Past Medical History: Diagnosis Date Arthritis Bladder cancer Diabetes mellitus HCC (hepatocellular carcinoma) Hypercholesterolemia Prostate cancer Thrombocytopenia Past Surgical History: Procedure Laterality Date COLONOSCOPY Allergies Allergen Reactions Bicalutamide Palpitations Home Medications Medication Sig diphenhydrAMINE HCl 25 MG Oral Capsule (BENADRYL) Take 25 mg by mouth every 6 (s ix) hours as needed for Itching Docusate Sodium 100 MG Oral Capsule (COLACE) Take 100 mg by mouth Two Times Kimberly y Ferrous Sulfate 325 (65 Fe) MG Oral Tablet Take 325 mg by mouth daily with break fast Furosemide 20 MG Oral Tablet (LASIX) Take 20 mg by mouth daily hydrOXYzine HCl 10 MG Oral Tablet (ATARAX) Take 10 mg by mouth Three times daily as needed for Itching Ibuprofen 200 MG Oral Tablet (MOTRIN) Take 200 mg by mouth every 6 (six) hours a s needed for Pain Lidocaine 5 % External Ointment (XYLOCAINE) Apply topically as needed metFORMIN HCl 500 MG Oral Tablet (GLUCOPHAGE) Take 500 mg by mouth Two times cornel ly with meals Montelukast Sodium 10 MG Oral Tablet (Singulair) Take 1 tablet by mouth nightly Polyethylene Glycol 3350 17 GM Oral Packet (MIRALAX) Take [address] by mouth daily Pl ease substitute bottle for packets, if packets are unavailable. Spironolactone 100 MG Oral Tablet (ALDACTONE) Take 100 mg by mouth daily Losartan Potassium 50 MG Oral Tablet (COZAAR) Take 25 mg by mouth daily Psyllium 28.3 % Oral Packet (METAMUCIL) Take 1 packet by mouth Two Times Daily Medications at this time [START ON 04/24/2021] furosemide 40 mg Oral Daily insulin lispro 1-5 Units Subcutaneous Q4H pantoprazole 40 mg Oral Nightly sodium chloride (preservative free) 3 mL Intravenous 3 times per day spironolactone 25 mg Oral BID dextrose, glucagon (human recombinant), glucose, Peripheral IV AND sodium ch loride (preservative free) AND sodium chloride (preservative free) AND S joshua Lock order, sodium chloride Social History He is . He reports that he has never smoked. He has never used smokeless tobacco. He reports current alcohol use. He reports that he does not use drugs. Family History family history includes Cancer in his maternal grandmother; No Known Problems in his mother. No family history of GI//[employer] Professor cancers. Review of systems: Complete ROS performed and found to be negative except those mentioned in the HP I. PHYSICAL EXAMINATION Blood pressure 132/69, pulse 94, temperature 36.6 C (97.9 F), temperatur e source Oral, resp. rate 16, height 1.803 m, weight 77.1 kg (170 lb), SpO2 97 % . Physical Exam General appearance: Alert, cooperative, appears well-developed and well-nourishe d Head: Normocephalic,atraumatic Oropharynx: Moist, no exudates Eyes: No pallor, no icterus Neck: Supple, no thyromegaly Lymphadenopathy: No cervical or supraclavicular adenopathy. CVS: Normal rate, regular rhythm and normal heart sounds RS: No respiratory distress. Effort normal. Vesicular breath sounds bilaterally Abdomen: BS +, soft, non-tender, non-distended, no guarding, no rigidity, no org anomegaly, no free fluid. Musculoskeletal: No edema and no tenderness. INDUSTRY ANALYST: Alert and oriented to person, place, and time. Normal speech. Skin: Skin is warm and dry. No cyanosis. Psychiatric: Normal mood and affect. Behavior is normal. DATA REVIEW All relevant laboratory data, outside records and imaging that were available we re independently reviewed by me. Pertinent ones are listed here. Laboratory Data: Lab 02/28/21 1228 04/09/21 0747 04/18/21 12004/23/21 1056 HGB 8.4* 8.3* 8.3* 10.0* HCT 25.4* 24.7* 25.4* 30.1* MCV 85.4 84.2 83.6 85.9 PLT 190 133* 192 174 WBC 4.0 3.9* 4.4 6.9 Lab 02/28/21 1228 04/09/21 0747 04/18/21 1201 04/23/21 1056 NA 130* 130* 131* 132* K 4.1 4.9 4.9 4.4 CL 97* 102 101 104 BICARBONATE 22 15* 20* 17* BUN 17 55* 37* 35* CREATININE 0.94 1.50* 1.47* 1.24* Lab 02/28/21 1228 02/28/21 1228 04/09/21 0747 04/18/21 1201 04/23/21 1056 PROT 7.1 < > 7.4 6.9 7.1 ALBUMIN 3.4* < > 3.0* 3.2* 3.2* ALT 36 < > 66* 83* 114* AST 60* < > 90* 92* 124* ALKPHOS 168* -- 181* 182* 200* TBILI 0.7 -- 0.5 0.5 1.3* < > = values in this interval not displayed. Lab 04/09/21 0747 04/18/21 1201 04/23/21 1056 INR 1.21 1.11 1.16 Imaging and other investigations: IR Arteriogram Visceral Result Date: 04/14/2021 EXAMINATION: VISCERAL ANGIOGRAPHY FOR Y 90 MAPPING AND TRANS-SPLENIC PORTOGRAPHY , 04/09/2021 CLINICAL INDICATIONS: 80-year-old male with 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 Of note, the patient was complaining of bleeding from the ileal conduit stoma for the past two months . Radiation Dosimetry: Fluoroscopy time: 29.7 minutes, Fluoroscopy Dose: 750 mGy . Consent: Following discussion of the risks, benefits and alternatives of the p rocedure, and written informed consent was obtained. Moderate Sedation: I perfor med Moderate Sedation with intravenous 2 mg of Versed and 100 mcg of fentanyl fo r 180 minutes Operators: IR attending: Eulalia Muñiz MD Fellow: Marcos rolon MD Resident: Riana Alexander M.D. and Adela Daniels TIME O UT: Prior to the procedure a time out was performed in the presence of the patie nt and all personnel involved in this case. The patient identity, procedure typ e, procedure side/site, and allergies were verified. TECHNIQUE: Procedures perfo rmed: 1. Left radial access under direct ultrasound guidance. 2. Abdominal Aorto gram 3. Selective DSA arteriogram of the superior mesentericartery. 4. Selective DSA arteriogram of the celiac artery 5.Selective DSA angiogram of the splenic a rtery 6 Subselective DSA arteriogram of the common hepatic artery. 6. Splenic ve in access under ultrasound guidance 7. DSA splenic venography 8. DSA superior me senteric venography 8. Left radial access hemostasis with a TR band. Position: T he patient was transferred to the angiography suite and was positioned supine on the procedural table. The left wrist was prepped and draped using maximum steri le barrier technique. This consisted of cap, mask, hand hygiene, sterile gown an d gloves, 2% Chlorhexidine solution for cutaneous antisepsis and occlusive steri le draping of the field. Procedure: The left wrist was evaluated for radial martha rial access prior to the procedure. Ultrasound demonstrated a patent left radial artery that measured 28 mm and an ultrasound image of this was saved. A Barbeau test was performed. The patient showed type A waveform. The left wrist was prep ped and draped using standard sterile technique. 2% lidocaine was used for local anesthesia. Direct ultrasound guidance was used to perform single wall left rad ial artery puncture and an image of this was saved into PACS. A 0.018 wire was p laced through the wire to secure access. After removing the needle a 5 Fr slim h ydrophilic radial access vascular sheath was placed over the wire. At this point , 200 mcg of nitroglycerin and 25 mg of hydralazine were intravenously infused. A total of 3000 units of heparin was intravenously administered. Then a 0.035 Be ntson wire was advanced through the left radial artery sheath. Over a 0.035 Bent son wire, a 5 Fr Jennifer catheter was advanced into the abdominal aorta and an abd ominal aortogram was obtained (20 cc/sec for 30 cm). This demonstrated origins o f the visceral arteries. Then the catheter was advanced to select the superior m esenteric artery artery and an angiogram was performed (5cc/sec for 25 cc). This demonstrated patent and standard superior mesenteric artery anatomy. No portal vein was visualized, suggestive of hepatofugal flow. Following this, a 5 Fr Lydia h catheter was retracted within the abdominal aorta to select the celiac artery and a selective angiogram was performed (5cc/sec for 15 cc). This demonstrated p atent and standard hepatic arterial anatomy. Opacification of the portal venous system is noted, suggestive of arterial portal shunting. To visualize the main p ortal vein, the catheter was advanced into the splenic artery and a splenic martha riogram obtained (5 cc/s for 15 cc). No portal vein could be visualized, suggest bernardino of hepatofugal flow. The catheter was then introduced into the common hepati c artery and angiogram obtained (4cc/sec for 12 cc). This demonstrated faint opa cification of the right portal system, suggestive of a tumor thrombus. The left portal vein was clearly visualized. Of note, a large filling defect was seen wit hin the main portal vein, suggestive of a thrombus (tumor vs bland). Since arter ial portal shunting was quite significant, a decision was made not to infuse cristiana hnetium 99m MAA. To further investigate the extent of portal vein occlusion and possible stoma varices, consent for direct portography via a trans-splenic appro ach was obtained from the patient's family. Under ultrasound guidance access to the intraparenchymal splenic vein was obtained with a micropuncture set. An Accu Stick system was used to upsize the tract. Through the AccuStick sheath, a 4 Rosalino nch Kumpe catheter was introduced into the splenic vein and splenic venogram obt ained (hand run). 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 The catheter was further advanced into the superior mesenteric vein and venogram (hand run) obtained. This demonstrated sh unt varices revascularization of multiple superficial veins. Since all the infla mmation the study was obtained. A decision was made to terminate the procedure. The left radial artery sheath was removed. Hemostasis was achieved utilizing a T R band insufflated to 14 cc of air and which was deflated later as per protocol. IMPRESSION: 1. Visceral arteriogram demonstrated significant arterial portal sh unting with visualization of the left portal vein and a large filling defect wit hin the main portal vein (bland thrombus versus tumor thrombus). For this reason , a decision was made not to infuse technetium 99m MAA. 2. 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 Stoma varices visualized on superior mesenteric venography ASSESSMENT Mr. Braulio Son is a 80 y.o. male with a past medical history of bladder can cer status post cystectomy with ileal conduit stoma formation, prostate cancer s /p radical prostatectomy, EBRT, new diagnosis of hepatocellular carcinoma, who i s admitted to the hospital for sclerotherapy of the stomal varices due to worsen ing bleeding from the stoma site. GI has been consulted for evaluation of esopha geal varices. 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 The patient is here to get his stomal varic eal sclerotherapy to reduce the bleeding from the stoma site. But this in turn would increase her portal pressure could accentuate esophageal varices if alread y present. Patient will need upper GI endoscopy part of the work-up. RECOMMENDATIONS - Keep patient NPO - Monitor vital signs for hemodynamic instability (hypotension, tachycardia) - Monitor CBC and transfuse PRBC as indicated. Goal hemoglobin > 7/21 - Avoid NSAIDs - Plan for EGD on 04/24/2021 - If any signs of overt gastrointestinal bleeding, please notify GI fellow on ca ll STAT The patient was discussed with Dr. Guerrero who agrees with the above assessment and plan. Larry George PGY-2 Internal Medicine [phone] Attending Note Braulio Son was seen and evaluated with the resident. I have personally rev iewed the chart including any outside records, available labs and imaging studie s, and agree with the assessment and plan as discussed in the note. Please refer to endoscopy report for additional recommendations. documented in this encounter Miscellaneous Notes * Brief Op Note - Eulalia Muñiz MD - 04/23/2021 3:51 PM EST Brief Procedure Note Patient Name: Braulio Son Patient Diagnosis: 1. Vascular varices of stoma, initial encounter Procedure Start: 04/23/2021 2:34 PM Procedure End: 04/23/2021 3:33 PM Radiologist(s) and/or Proceduralist(s): Eulalia Muñiz MD/Dr. Marcos elaine (fellow) Procedure(s): SCLEROTHERAPY OF STOMAL VARICES Anesthesia (type): moderate sedation Est. Blood loss: Minimal Medications Medication Event Details Admin User Admin Time ceFAZolin (ANCEF) IVPB 2 g in dextrose (premix) Medication New Bag Dose: 2 g; Ra te: 200 mL/hr; Route: Intravenous; Scheduled Time: 10:30 AM Darcy gutiérrez RN 04/23/2021 2:45 PM fentaNYL (SUBLIMAZE) (PF) injection Medication Ordered and Given Dose: 50 mcg; R oute: Given by IV; Ordered by: MD Darcy Hand R N 04/23/2021 3:01 PM midazolam (PF) (VERSED) injection Medication Ordered and Given Dose: 1 mg; Route : Given by IV; Ordered by: MD Darcy Hand RN 3:01 PM sodium tetradecyl sulfate (SOTRADECOL) 3 % injection Medication Ordered and Give n Dose: 4 mL; Route: Given by IV; Site: Other; Comment: trans-splenic stomal alex icies; Ordered by: MD Marcos Hand MD 04/23/2021 3:1 3 PM sodium tetradecyl sulfate (SOTRADECOL) 3 % injection Medication Given Dose: 4 mL ; Route: Given by IV; Site: Other; Comment: trans-splenic stomal varicies Meliton Kaye MD 04/23/2021 3:19 PM Comments: Successful sclerotherapy of the stomal varices by direct puncture with a 22 gauge needle. Approximately 8 ml of STS was injected into the varices. Complications: None immediate Fluoroscopy Time AP(minutes): 2.5 documented in this encounter Plan of Treatment Care Team Description Date Type Specialty Jermaine Freeman DO [address] [place] [address] [email or web address] 05/09/2021 Office Visit Hematology and Onco logy Damion Cash MBBS [address] [id number] [email or web address] 05/15/2021 Telemedicine Gastroenterology Cyn Garner, [place] [address] [place] [address] maria [email or web address] 06/27/2021 Office Visit Hematology and Onco logy Order Schedule Name Type Priority Associated Diag noses 4X Daily (AC & HS) for 30 Days starting 04/23/2021 until 05/23/2021, 2 completed POCT glucose, docked Point of Care Routine Testing-Docked Device Date/Time Name Priority Associated Diagnose s 04/24/2021 1:43 PM EST UPPER GI ENDOSCOPY; DX, W/WO SPECIMEN Evaluate esop hageal COLLECTION, BRUSHING/WASHING (SEP PROC) varices Health Maintenance Due Date Last Done Comments Pneumococcal Vaccine: 65+ 11/21/1946 Years (1 of 4 - PCV13) Pneumococcal Vaccine: 11/21/1946 Pediatrics (0 to 5 Years) and At-Risk Patients (6 to 64 Years) (1 of 4 - PCV13) DTaP,Tdap,and Td Vaccines 11/03/2002 10/06/2002 (2 - Tdap) MMR Vaccines (1 of 1 - 11/03/2012 Standard series) Varicella Vaccines (1 of 05/11/2018 03/16/2018, 2 - 2-dose childhood 12/09/2017, series) 11/19/2017, Additional history exists Influenza Vaccine 03/01/2021 02/26/2021, 03/08/2020, 03/08/2020, Additional history exists COVID-19 Vaccine (4 - 09/12/2021 03/14/2021, Booster for Pfizer 07/29/2020, series) 07/29/2020, Additional history exists Zoster Vaccines Completed 03/16/2018, 12/09/2017, 11/19/2017, Additional history exists HIB Vaccines Aged Out No longer eligible based on patient's age to complete this topic Hepatitis A Vaccines Aged Out No longer eligibl e based on patient's age to complete this topic Hepatitis B Vaccines Aged Out No longer eligibl e based on patient's age to complete this topic IPV Vaccines Aged Out No longer eligible based on patient's age to complete this topic documented as of this encounter Procedures Comments Procedure Name Priority Date/Time Associated Diag nosis POCT GLUCOSE, DOCKED Routine 04/24/2021 12:20 PM EST CBC AND DIFFERENTIAL Routine 04/24/2021 9:31 AM EST POCT GLUCOSE, DOCKED Routine 04/24/2021 8:25 AM EST UPPER GI ENDOSCOPY 04/24/2021 12:00 AM EST POCT GLUCOSE, DOCKED Routine 04/23/2021 9:55 PM EST POCT GLUCOSE, DOCKED Routine 04/23/2021 5:28 PM EST POCT GLUCOSE, DOCKED Routine 04/23/2021 4:12 PM EST IR VENOGRAM ORGAN Routine 04/23/2021 Vascular alex ices of 3:33 PM EST stoma, initial encounter Other complications of procedures, not elsewhere classified, initial encounter POCT GLUCOSE, DOCKED Routine 04/23/2021 11:24 AM EST PROTIME INR STAT 04/23/2021 10:56 AM EST CBC AND DIFFERENTIAL Routine 04/23/2021 10:56 AM EST COMPREHENSIVE METABOLIC STAT 04/23/2021 PANEL 10:56 AM EST POCT ID NOW COVID-19 Routine 04/23/2021 10:24 AM EST documented in this encounter Results * POCT glucose, docked (04/24/2021 12:20 PM EST) [facility] POC Glucose 152 (H) 70 - 140 mg/dL [facility] POC Specimen Whole Blood Performing Organization Address City/State/ZIP Code P maame Number POINT OF CARE TEST [address] [place], [place] [id number] [place] [address] POC [address] [place] [address] * CBC and Differential (04/24/2021 9:31 AM EST) [facility] White Blood 5.9 4 - 10 10*3/uL [facility] Cell [facility] Univ Clin Pathology Red Blood Cell 3.23 (L) 4.6 - 6.1 10*6/uL [facility] Clin Pathology Hemoglobin 9.2 (L) 13.5 - 18 g/dL [facility] Clin Pathology Hematocrit 28.0 (L) 41 - 53 % [facility] Clin Pathology Mean Cell 86.7 80 - 96 fL [facility] Volume [facility] Clin Pathology Mean Cell 28.5 27 - 33 pg [facility] Hemoglobin [facility] Clin Pathology Mean Cell Hgb 32.9 32.0 - 36.0 g/dL [facility] Conc [facility] Clin Pathology Red Cell Dist 17.1 (H) 11.5 - 14.5 % [facility] Width [facility] Clin Pathology Platelet Count 141 (L) 150 - 400 10*3/uL [facility] Clin Pathology Differential Automated Diff [facility] Type Med Univ Clin Pathology Neutrophil 78 % [facility] Pathology Lymphocyte 4 % [facility] Clin Pathology Monocyte 11 % [facility] Clin Pathology Eosinophil 6 % [facility] Clin Pathology Basophil 1 % [facility] Clin Pathology Abs Neutrophil 4.57 1.8 - 7.0 10*3/uL [facility] Clin Pathology Abs Lymphocyte 0.24 (L) 1.2 - 4.0 10*3/uL [facility] Clin Pathology Abs Monocyte 0.64 0 - 0.8 10*3/uL [facility] Clin Pathology Abs Eosinophil 0.36 0 - 0.5 10*3/uL [facility] Clin Pathology Abs Basophil 0.05 0 - 0.2 10*3/uL [facility] Clin Pathology Nucleated Red 0 0 - 0 /100{WBCs} [facility] Blood Cells [facility] Clin Pathology Specimen EDTA Whole Blood Performing Organization Address City/[facility]/ZIP Code P maame Number [facility] [address] [place], [place] [address] PATHOLOGY [facility] [address] [place], [place] [address] Clin Pathology * POCT glucose, docked (04/24/2021 8:25 AM EST) POC Glucose 141 (H) 70 - 140 mg/dL [facility] POC Specimen Whole Blood Performing Organization Address [facility] P maame Number POINT OF CARE TEST [address] [place] [address] [facility] POC [address] [place] [address] * POCT glucose, docked (04/23/2021 9:55 PM EST) POC Glucose 206 (H) 70 - 140 mg/dL [facility] POC Specimen Whole Blood Performing Organization Address City/[facility]/ZIP [facility] P maame Number POINT OF CARE TEST [address] [place] [address] [facility] POC [address] [place] [address] * POCT glucose, docked (04/23/2021 5:28 PM EST) POC Glucose 130 70 - 140 mg/dL [facility] POC Specimen Whole Blood Performing Organization Address [facility]/ZIP [facility] P maame Number POINT OF CARE TEST [address] [place] [address] [facility] POC [address] [place] [address] * POCT glucose, docked (04/23/2021 4:12 PM EST) POC Glucose 126 70 - 140 mg/dL [facility] POC Specimen Whole Blood Performing Organization Address City/State/ZIP Code P maame Number POINT OF CARE TEST [address] [place] [address] [facility] POC [address] [place] [address] * IR Venogram Organ (04/23/2021 3:33 PM EST) Modality Anatomical Region Laterality X-Ray Angiography Vascular Specimen Impressions [facility] - 04/24/2021 4:49 PM EST Impression: Successful image guided sclerotherapy of the peristomal varices with direct puncture, as described above. Plan: Follow up in a month (likely telemedicine). Narrative [facility] - 04/24/2021 4:49 PM EST PROCEDURE: 1. Peristomal varices venogram by direct puncture 2. 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 Manager Furniture: Eulalia Muñiz M.D. Fellow: Marcos Kaye M.D. Sedation: Moderate sedation with 1 mg of Versed and 50 mcg of fentanyl for 30 minutes. Fluoroscopy time: 2.5 minutes Fluoroscopy dose: 126.7 mGy Procedure: The risks, benefits and alternative to the procedure were detailed discussed with the patient and informed written consent obtained. [employer] Specialist ultrasound imaging of the peristomal area showed tangles of veins surrounding the stoma. A large vein was selected and direct ultrasound guidance a 22-gauge Chiba needle was advanced into this vein. Injection of contrast showed enhancement of the varices surrounding the stoma with a good flow through superficial abdominal veins (caput medusae). A mixture of lipiodol, STS and air (2:8:10 mL) was made into foam and was projected into the varices under fluoroscopy guidance and it was stopped once we saw enhancement of the efferent veins. We applied manual pressure on the abdominal wall in the superior aspect of the stoma to prevent superficial venous exit flow. The needle was removed and sterile dressing was applied. Patient left the room in stable condition. Findings: Limited ultrasound examination of the peristoma area in the right lower abdomen demonstrated multiple peristomal varices. Procedure Note Eulalia Muñiz MD - 04/24/2021 PROCEDURE: 1. Peristomal varices venogram by direct puncture 2. 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 Manager Furniture: Eulalia Muñiz M.D. Fellow: Marcos Kaye M.D. Sedation: Moderate sedation with 1 mg of Versed and 50 mcg of fentanyl for 30 minutes. Fluoroscopy time: 2.5 minutes Fluoroscopy dose: 126.7 mGy Procedure: The risks, benefits and alternative to the procedure were detailed discussed with the patient and informed written consent obtained. [employer]ist ultrasound imaging of the peristomal area showed tangles of veins surrounding the stoma. A large vein was selected and direct ultrasound guidance a 22-gauge Chiba needle was advanced into this vein. Injection of contrast showed enhancement of the varices surrounding the stoma with a good flow through superficial abdominal veins (caput medusae). A mixture of lipiodol, STS and air (2:8:10 mL) was made into foam and was projected into the varices under fluoroscopy guidance and it was stopped once we saw enhancement of the efferent veins. We applied manual pressure on the abdominal wall in the superior aspect of the stoma to prevent superficial venous exit flow. The needle was removed and sterile dressing was applied. Patient left the room in stable condition. Findings: Limited ultrasound examination of the peristoma area in the right lower abdomen demonstrated multiple peristomal varices. Impression: Successful image guided sclerotherapy of the peristomal varices with direct puncture, as described above. Plan: Follow up in a month (likely telemedicine). Performing Organization Address City/State/ZIP Code P maame Number [facility] [address] [place] [address] * POCT glucose, docked (04/23/2021 11:24 AM EST) POC Glucose 142 (H) 70 - 140 mg/dL [facility] POC Specimen Whole Blood Performing Organization Address City/[facility]/ZIP Code P maame Number POINT OF CARE TEST [address] [place] [address] [facility] POC [address] [place] [address] * Comprehensive Metabolic Panel (04/23/2021 10:56 AM EST) Albumin 3.2 (L) 3.5 - 5.2 g/dL [facility] Clin Pathology Bilirubin, 1.3 (H) <1.2 mg/dL [facility] Total [facility] Clin Pathology Calcium 10.5 (H) 8.8 - 10.2 mg/dL [facility] Clin Pathology Chloride 104 98 - 107 mmol/L [facility] Pathology Creatinine 1.24 (H) 0.70 - 1.20 mg/dL [facility] Clin Pathology Glucose 146 (H) 70 - 140 mg/dL [facility] Clin Pathology Alkaline 200 (H) 40 - 129 U/L [facility] Clin Pathology Potassium 4.4 3.4 - 5.1 mmol/L [facility] Clin Pathology Total Protein 7.1 6.4 - 8.3 g/dL [facility] Clin Pathology Sodium 132 (L) 136 - 145 mmol/L [facility] Pathology AST/SGO 124 (H) <40 U/L [facility] Pathology Blood Urea 35 (H) 8 - 23 mg/dL [facility] Nitrogen [facility] Clin Pathology Osmolality, Isaak 285 275 - 300 mosm/kg [facility] Clin Pathology BUN/Cre Ratio 28 [facility] Clin Pathology Bicarbonate 17 (L) 22 - 29 mmol/L [facility] Clin Pathology ALT/SGP 114 (H) <41 U/L [facility] Clin Pathology Anion Gap 11 8 - 15 mmol/L [facility] Clin Pathology GFR Non 54 (L) >60 mL/min/1.73m2 [facility] 2008 [facility] Clin CDK-EPI Pathology GFR 62 >60 mL/min/1.73m2 [facility] 2008 [facility] Clin CKD-EPI Pathology Specimen Plasma Performing Organization Address City/[facility]/ZIP Code P maame Number [facility] [address] [place], [place] [address] [address] Clin Pathology * Protime-INR (04/23/2021 10:56 AM EST) PT Patient 14.4 (H) 11.6 - 14.0 s [facility] Clin Pathology Int'l 1.16Comment: Routine intensity [facility]IE [facility] Normalized oral anticoagulation INR is Med Univ Clin Ratio typically 2.0-3.0. Target INR Patholo gy must be clinically individualized. Specimen Plasma Performing Organization Address City/State/ZIP Code P maame Number [facility] [address] [place], [place] [address] [address] Clin Pathology * CBC and Differential (04/23/2021 10:56 AM EST) White Blood 6.9 4 - 10 10*3/uL [facility] Clin Pathology Red Blood Cell 3.50 (L) 4.6 - 6.1 10*6/uL [facility] Clin Pathology Hemoglobin 10.0 (L) 13.5 - 18 g/dL [facility] Clin Pathology Hematocrit 30.1 (L) 41 - 53 % [facility] Clin Pathology Mean Cell 85.9 80 - 96 fL [facility] Volume [facility] Univ Clin Pathology Mean Cell 28.6 27 - 33 pg [facility] Univ Clin Pathology Mean Cell Hgb 33.3 32.0 - 36.0 g/dL [facility] Univ Clin Pathology Red Cell Dist 16.9 (H) 11.5 - 14.5 % [facility] Univ Clin Pathology Platelet Count 174 150 - 400 10*3/uL [facility] Clin Pathology Differential Automated Diff [facility] Type Med Univ Clin Pathology Neutrophil 77 % [facility] Clin Pathology Lymphocyte 4 % [facility] Clin Pathology Monocyte 9 % [facility] Clin Pathology Eosinophil 9 % [facility] Clin Pathology Basophil 1 % [facility] Clin Pathology Abs Neutrophil 5.29 1.8 - 7.0 10*3/uL [facility] Clin Pathology Abs Lymphocyte 0.30 (L) 1.2 - 4.0 10*3/uL [facility] Clin Pathology Abs Monocyte 0.61 0 - 0.8 10*3/uL [facility] Clin Pathology Abs Eosinophil 0.60 (H) 0 - 0.5 10*3/uL [facility] Clin Pathology Abs Basophil 0.09 0 - 0.2 10*3/uL [facility] Clin Pathology Nucleated Red 0 0 - 0 /100{WBCs} [facility] Blood Cells [facility] Clin Pathology Specimen EDTA Whole Blood Performing Organization Address City/[facility] P maame Number [facility] [address] [place], [place] [address] PATHOLOGY [facility] [address] [place], [place] [address] Clin Pathology * POCT ID NOW COVID-19 (04/23/2021 10:24 AM EST) POCT ID NOW Negative Negative [facility] COVID-19 Comment: Hospital POC Test performed using the Pickard ID NOW COVID-19 assay. This test is only for use under the Food and Drug Administration's Emergency Use Authorization. Additional information is available on the following FDA websites for health care providers and patients. https://www.fda.gov/media/1365 23/download https://www.fda.gov/media/8973 24/download First COVID-19 UNKNOWN [facility] Test? Hospital POC Employed in UNKNOWN [facility] POC setting? Symptomatic for UNKNOWN [facility] COVID-19 as Hospital POC defined by CDC? Date of symptom UNKNOWN [facility] onset? Hospital POC ([id number]) Hospitalized UNKNOWN [facility] for COVID-19? Hospital POC Admitted to ICU UNKNOWN [facility] for COVID-19? Hospital POC Resident in a UNKNOWN [facility] POC (group) care setting? ? [facility] POC Specimen Swab Performing Organization Address City/[facility]/ZIP [facility] P maame Number POINT OF CARE TEST [address] [place] [address] [facility] POC [address] [place] [address] documented in this encounter Visit Diagnoses Diagnosis Vascular varices of stoma, initial enco unter documented in this encounter Administered Medications Action Date Dose Rate Site Medication Order MAR Action dextrose 50 % IV solution 25 mL 25 mL, Intravenous, PRN, Other, blood glucose <55, Starting on Thu04/23/21 a t 1231, For 30 days, Not for midline administration. dextrose 50 % IV solution 25 mL 25 mL, Intravenous, PRN, Other, blood glucose <55, Starting on Thu04/23/21 a t 1652, For 30 days, Not for midline administration. 04/24/2021 7:07 AM EST 25 mg diphenhydrAMINE (BENADRYL) capsule 25 mg Given 25 mg, Oral, Every 6 hours PRN, Itching, Starting on Thu04/23/21 at 2224, For 30 days 25 mg Given 04/23/2021 11:29 PM EST 04/24/2021 9:06 AM EST 40 mg furosemide (LASIX) tablet 40 mg Given 40 mg, Oral, Daily Standard, First dos e on Thu04/24/21 at 0900, For 30 days glucagon (human recombinant) (GLUCAGEN) injection 1 mg 1 mg, Intramuscular, PRN, for glucose <55 without IV access, Starting on Thu04/23/21 at 1231, For 30 days glucagon (human recombinant) (GLUCAGEN) injection 1 mg 1 mg, Intramuscular, PRN, for glucose <55 without IV access, Starting on Thu04/23/21 at 1652, For 30 days glucose (GLUTOSE) 40 % oral gel 15 g 15 g, Oral, PRN, Low blood sugar, for gluose 55-69 mg/dl and able to take PO, Starting on Thu04/23/21 at 1652, For 3 0 days 04/23/2021 5:52 PM EST 1 Units Right Ar m insulin lispro (HumaLOG) injection LOW Given DOSE EATING INSULIN patients 1-8 Units 1-8 Units, Subcutaneous, Three Times Daily-With Meals, First dose on Thu04/23/21 at 1800, For 30 days, Nursing MUST open the 'SQ Insulin Dosing Charts ' Sidebar Report, or, the Patient Summary or Summary Report within the ED. 04/23/2021 9:28 PM EST 40 mg pantoprazole (PROTONIX) EC tablet 40 mg Given 40 mg, Oral, Nightly, First dose on Thu04/23/21 at 2200, For 30 days, Do not crush or chew 04/24/2021 9:07 AM EST 3 mLs sodium chloride (preservative free) 0.9 Given by IV % flush 3 mL push 3 mL, Intravenous, Every 8 hours Standard (3 times per day), First dose on Thu04/23/21 at 1700, For 30 days, Pre-op, Saline Lock. Flush Q8H and afte r each use to Saline Lock. 3 mLs Given by IV push 04/23/2021 4:58 PM EST sodium chloride (preservative free) 0.9 % flush 3 mL 3 mL, Intravenous, PRN, Line Care, Starting on Thu04/23/21 at 1021, For 3 0 days, Pre-op, Saline Lock. Flush Q8H an d after each use to Saline Lock. 04/24/2021 9:06 AM EST 25 mg spironolactone (ALDACTONE) tablet 25 mg Given 25 mg, Oral, 2 Times Daily, First dose on Thu04/23/21 at 2100, For 30 days 25 mg Given 04/23/2021 9:28 PM EST Action Date Dose Rate Site Medication Order MAR Action 04/23/2021 2:45 PM EST 2 g 200 mL/hr ceFAZolin (ANCEF) IVPB 2 g in dextrose New Bag (premix) 2 g, Intravenous, Administer over 30 Minutes, Once, On Thu04/23/21 at 1030, For 1 dose, Pre-op 04/23/2021 3:01 PM EST 50 mcg fentaNYL (SUBLIMAZE) (PF) injection Given Once PRN, Starting on Thu04/23/21 at 1501 04/24/2021 3:37 AM EST 25 mg hydrOXYzine (ATARAX) tablet 25 mg Given 25 mg, Oral, Once, On Thu04/24/21 at 0300, For 1 dose 04/23/2021 3:01 PM EST 1 mg midazolam (PF) (VERSED) injection Given Once PRN, Starting on Thu04/23/21 at 1501 04/23/2021 3:19 PM EST 4 mLs Other sodium tetradecyl sulfate (SOTRADECOL) 3 Given % injection Once PRN, Starting on Thu04/23/21 at 1513 4 mLs Other Given 04/23/2021 3:13 PM EST documented in this encounter Active and Recently Administered Medications Times are shown in EST. 04/23/2021 04/24/2021 Medication Order 04/22/2021 1445 (New Bag - Provider: Darcy Leal RN) ceFAZolin (ANCEF) IVPB 2 g in dextrose (premix) (COMPLETED) 2 g, Intravenous, Administer over 30 Minutes, Once, On Thu04/23/21 at 1030, For 1 dose, Pre-op 0906 (Given - Provider: Elizabeth Darnell RN)1344 (MAR Hold - Provider: Automatic Transfer Provider - Reason: Unreviewed Transfer Orders)1415 (MAR Unhold - Provider: Jet Guerrero MD) furosemide (LASIX) tablet 40 mg 40 mg, Oral, Daily Standard, First dos e on Thu04/24/21 at 0900, For 30 days 0337 (Given - Provider: Kiara Thornton RN) hydrOXYzine (ATARAX) tablet 25 mg (COMPLETED) 25 mg, Oral, Once, On Thu04/24/21 at 0300, For 1 dose 1752 (Given - Provider: Nicole son RN) 0859 (Not Given - Provider: Elizabeth bacon RN - Reason: Order parameters not met - Comment: FS 141; pt NPO for procedure.)1237 (Not Given - Provider: Elizabeth Darnell RN - Reason: Order parameters not met - Comment: FS 152; Pt NPO for procedure.)1344 (MAR Hold - Provider: Automatic Transfer Provider - Reason: Unreviewed Transfer Orders)1415 (MAR Unhold - Provider: Jet Guerrero MD)1800 (Due - Provider: Jet Guerrero MD) insulin lispro (HumaLOG) injection LOW DOSE EATING INSULIN patients 1-8 Units 1-8 Units, Subcutaneous, Three Times Daily-With Meals, First dose on Thu04/23/21 at 1800, For 30 days, Nursing MUST open the 'SQ Insulin Dosing Charts ' Sidebar Report, or, the Patient Summary or Summary Report within the ED. 2127 (Given - Provider: Nicole son RN) 1344 (MAR Hold - Provider: Automatic Tra nsfer Provider - Reason: Unreviewed Transfer Orders)1415 (MAR Unhold - Provider: Jet Guerrero MD)2200 (Due - Provider: Jet Guerrero MD) pantoprazole (PROTONIX) EC tablet 40 mg 40 mg, Oral, Nightly, First dose on Thu04/23/21 at 2200, For 30 days, Do not crush or chew 1658 (Given by IV push - Provider: Ayde Dumont RN) 0252 (Not Given - Provider: Kiara meza RN - Reason: Other)0907 (Given by IV push - Provider: Elizabeth Darnell RN)1700 (Due) sodium chloride (preservative free) 0.9 % flush 3 mL(Linked Group 1) 3 mL, Intravenous, Every 8 hours Standard (3 times per day), First dose on Thu04/23/21 at 1700, For 30 days, Pre-op, Saline Lock. Flush Q8H and afte r each use to Saline Lock. 2127 (Given - Provider: Nicole son RN) 0906 (Given - Provider: Elizabeth Darnell RN)1344 (MAR Hold - Provider: Automatic Transfer Provider - Reason: Unreviewed Transfer Orders)1415 (MAR Unhold - Provider: Jet Guerrero MD)2100 (Due - Provider: Jet Guerrero MD) spironolactone (ALDACTONE) tablet 25 mg 25 mg, Oral, 2 Times Daily, First dose on Thu04/23/21 at 2100, For 30 days 04/23/2021 04/24/2021 Medication Order 04/22/2021 1344 (MAR Hold - Provider: Automatic Tra nsfer Provider - Reason: Unreviewed Transfer Orders)1415 (MAR Unhold - Provider: Jet Guerrero MD) dextrose 50 % IV solution 25 mL 25 mL, Intravenous, PRN, Other, blood glucose <55, Starting on Thu04/23/21 a t 1231, For 30 days, Not for midline administration. 1344 (MAR Hold - Provider: Automatic Tra nsfer Provider - Reason: Unreviewed Transfer Orders)1415 ([facility] Unhold - Provider: Jet Guerrero MD) dextrose 50 % IV solution 25 mL 25 mL, Intravenous, PRN, Other, blood glucose <55, Starting on Thu04/23/21 a t 1652, For 30 days, Not for midline administration. 232 (Given - Provider: Kiara Thornton RN) 0707 (Given - Provider: Kiara Thornton RN)1344 ([facility] Hold - Provider: Automatic Transfer Provider - Reason: Unreviewed Transfer Orders)1415 ([facility] Unhold - Provider: Jet Guerrero MD) diphenhydrAMINE (BENADRYL) capsule 25 m g 25 mg, Oral, Every 6 hours PRN, Itching, Starting on Thu04/23/21 at 2224, For 30 days 1501 (Given - Provider: Darcy abdul, RN) fentaNYL (SUBLIMAZE) (PF) injection (COMPLETED) Once PRN, Starting on Thu04/23/21 at 1501 1344 ([facility] Hold - Provider: Automatic Tra nsfer Provider - Reason: Unreviewed Transfer Orders)1415 ([facility] Unhold - Provider: Jet Guerrero MD) glucagon (human recombinant) (GLUCAGEN) injection 1 mg 1 mg, Intramuscular, PRN, for glucose <55 without IV access, Starting on Thu04/23/21 at 1231, For 30 days 1344 ([facility] Hold - Provider: Automatic Tra nsfer Provider - Reason: Unreviewed Transfer Orders)1415 ([facility] Unhold - Provider: Jet Guerrero MD) glucagon (human recombinant) (GLUCAGEN) injection 1 mg 1 mg, Intramuscular, PRN, for glucose <55 without IV access, Starting on Thu04/23/21 at 1652, For 30 days 1344 ([facility] Hold - Provider: Automatic Tra nsfer Provider - Reason: Unreviewed Transfer Orders)1415 ([facility] Unhold - Provider: Jet Guerrero MD) glucose (GLUTOSE) 40 % oral gel 15 g 15 g, Oral, PRN, Low blood sugar, for gluose 55-69 mg/dl and able to take PO, Starting on Thu04/23/21 at 1652, For 3 0 days 1501 (Given - Provider: Darcy abdul, ALICE) midazolam (PF) (VERSED) injection (COMPLETED) Once PRN, Starting on Thu04/23/21 at 1501 sodium chloride (preservative free) 0.9 % flush 3 mL(Linked Group 1) 3 mL, Intravenous, PRN, Line Care, Starting on Thu04/23/21 at 1021, For 3 0 days, Pre-op, Saline Lock. Flush Q8H an d after each use to Saline Lock. 1513 (Given - Provider: Marcos Biswas i, MD - Comment: trans-splenic stomal varicies)1519 (Given - Provider: Marcos Kaye MD - Comment: trans-splenic stomal varicies) sodium tetradecyl sulfate (SOTRADECOL) 3 % injection (COMPLETED) Once PRN, Starting on Thu04/23/21 at 1513 Order Group 1: Peripheral IV Routine, CONTINUOUS, Starting on Thu at 1022, Until Katie 05/23/21, For 30 days
Pre-op And sodium chloride (preservative free) 0.9 % flush 3 mLJump to med 3 mL, Intravenous, Every 8 hours Sta ndard (3 times per day), First dose on Thu04/23/21 at 1700, For 30 days, Pre-op
Saline Lock. Flu sh Q8H and after each use to Saline Lock.
And sodium chloride (preservative free) 0.9 % flush 3 mLJump to med 3 mL, Intravenous, PRN, Line Care, Star ting on Thu04/23/21 at 1021, For 30 days, Pre-op
Saline Lock. Flush Q8H and after each use to S joshua Lock.
And Saline Lock order () Routine, ONCE, On Thu04/23/21 at 1022, For 1 occurrence
Pre-op documented in this encounter Care Teams Start Date End Date Senior Hardware Engineer Relationship Specialty 02/12/21 Sergey Braun MD PCP - General Internal [phone] [facility] [address] [place] [address] documented as of this encounter
--- OUTSIDE RECORDS SUMMARY | 2021-04-28 11:23 | CCD | Summary of Care ---
Author Author [facility] Organization [facility] Address Unknown Phone Unavailable Care Team Providers Care Software Administrator Name Role Phone Sergey Braun MD PCP Reason for Visit * Reason Comments Follow-up discuss sclerotherapy Encounter Details Care Team Description Date Type Department Eulalia Muñiz MD [address] [place] [address] 3rd Floor, [place] [address] [email or web address] Hepatocellular carcinoma (Primary Dx) 04/18/2021 Office Visit [facility] [address] [place] [address] [address] [place] [address] Allergies Comments Active Allergy Reactions Severity Noted Date Bicalutamide Palpitations Low 02/28/2021 documented as of this encounter (statuses as of 04/21/2021) Medications End Date Status Medication Sig Dispensed [...] Oral Tablet (Singulair) by mouth 1 nightly documented as of this encounter (statuses as of 04/21/2021) Active Problems Problem Noted Date Hepatocellular carcinoma 03/04/2021 Abnormal results of liver function studies 1 documented as of this encounter (statuses as of 04/21/2021) Immunizations Name Administration Dates Next Due Influenza Quad High Dose 02/26/2021, 03/08/2020 IM Pres Free >=65YO documented as of this encounter Social History Date Tobacco Use Types Packs/Day Years Used Never Smoker Smokeless Tobacco: Never Used Comments Alcohol Use Standard Drinks/Week very rare Yes 0 (1 standard drink = 0.6 o z pure alcohol) Alcohol Habits Answer Date Recorded How often do you have a drink containing alcohol? No t asked How many drinks containing alcohol do you have on No t asked a typical day when you are drinking? How often do you have six or more drinks on one Not asked occasion? Comment: very rare 02/28/2021 Sex Assigned at Date Recorded Not on file Date Recorded COVID-19 Exposure Response 04/18/2021 9:59 AM EST In the last month, have you been in contact with No / Unsure someone who was confirmed or suspected to have Coronavirus / COVID-19? 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 Braulio Son is a 80 y.o. male who has recently been diagnosed with HCC. He denies history of alcohol abuse and any underlying liver disease. He had ultrasound of the abdomen for work-up of elevated LFTs on 01/11/21, which showed a 3.6 cm mass within the cirrhotic liver with ascites. The mass was biopsied on 02/07/2021 in his local hospital and turned out to be HCC. He also underwent paracentesis, removing 3 liters of ascites immediately before biopsy. He was referred to IR for Y90 radioembolization following discussion in the multidisciplinary GI conference. Of note, she has been bleeding from his I dwyer conduit stoma which necessitated blood transfusion in his nearby emergency room. His past medical history is significant for bladder cancer and prostate c ancer status post cystoprostatectomy with an ileal conduit diversion at [place] Dr. Fowler, [facility], on 10/2020, HTN, type II diabetes, and hyperlipidemia. 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 Because of significant arterio-portal shunting, Y 9 0 radioembolization was not deemed appropriate for Mr. Son. Direct portograp hy via the spleen approach was also performed demonstrating prominent esophageal varices and a superior mesenteric angiogram was obtained as well, demonstrating significant peristomal varices. Today he came to IR clinic to discuss stomal variceal embolization. Prior to is visit, he saw Dr. Freeman from oncology and immunotherapy was offered. He is acc ompanied by his . He is alert and oriented. He is ambulatory without any a ssistance. He feels somewhat fatigued but he is independent for his daily activi ties. He had an episode of stomal bleeding after mopping which necessitated sut uring the stoma in his nearby emergency room. Today his urine is clear without any obvious bleeding at the stoma site. Past Medical history: Past Medical History: Diagnosis Date Arthritis Bladder cancer Diabetes mellitus HCC (hepatocellular carcinoma) Hypercholesterolemia Prostate cancer Thrombocytopenia Past Surgical history: Past Surgical History: Procedure Laterality Date COLONOSCOPY REVIEW OF SYSTEMS Review of Systems Constitutional: Positive for fatigue. Negative for activity change, appetite jerman nge and fever. Cardiovascular: Positive for leg swelling. Negative for chest pain. Gastrointestinal: Positive for diarrhea. Negative for abdominal distention. Neurological: Negative for dizziness and headaches. Current medications: Current Outpatient Medications Medication Sig Dispense Refill Docusate Sodium 100 MG Oral Capsule (COLACE) Take 100 mg by mouth Two Javy es Daily Ferrous Sulfate 325 (65 Fe) MG Oral Tablet Take 325 mg by mouth daily wit h breakfast Furosemide 20 MG Oral Tablet (LASIX) Take 20 mg by mouth daily hydrOXYzine HCl 10 MG Oral Tablet (ATARAX) Take 10 mg by mouth Three time s daily as needed for Itching Lidocaine 5 % External Ointment (XYLOCAINE) Apply topically as needed Losartan Potassium 50 MG Oral Tablet (COZAAR) Take 25 mg by mouth daily metFORMIN HCl 500 MG Oral Tablet (GLUCOPHAGE) Take 500 mg by mouth Two ti mes daily with meals Montelukast Sodium 10 MG Oral Tablet (Singulair) Take 1 tablet by mouth n ightly 30 tablet 5 Psyllium 28.3 % Oral Packet (METAMUCIL) Take 1 packet by mouth Two Times Daily Spironolactone 100 MG Oral Tablet (ALDACTONE) Take 100 mg by mouth daily No current facility-administered medications for this visit. Allergies: Allergies Allergen Reactions Bicalutamide Palpitations Vitals: Visit Vitals BP 103/57 (BP Location: Right arm, Patient Position: Sitting, Cuff size: Regular ) Pulse 94 Temp 36.3 C (97.4 F) (Oral) Resp 18 SpO2 95% Physical Exam: Physical Exam Constitutional: Appearance: He is ill-appearing. Eyes: Conjunctiva/sclera: Conjunctivae normal. Cardiovascular: Rate and Rhythm: Normal rate and regular rhythm. Pulmonary: Effort: Pulmonary effort is normal. Breath sounds: Normal breath sounds. Abdominal: General: Abdomen is flat. Palpations: Abdomen is soft. Musculoskeletal: Right lower leg: Edema present. Left lower leg: Edema present. Neurological: Mental Status: He is alert. Recent Labs 04/18/21 1201 HCT 25.4* HGB 8.3* MCH 27.3 MCHC 32.6 MCV 83.6 PLT 192 RDW 16.4* WBC 4.4 Recent Labs 04/18/21 1201 NA 131* K 4.9 CL 101 BICARBONATE 20* CALCIUM 10.7* GLUCOSE 175* BUN 37* CREATININE 1.47* BCR 25 PROT 6.9 ALBUMIN 3.2* TBILI 0.5 ALKPHOS 182* AST 92* ALT 83* GFRAA 51* GFRNONAA 44* Recent Labs 04/18/21 1201 INR 1.11 Imaging: As noted in H&P. The direct portography demonstrated prominent stomal varices supplied by a branch of the superior mesenteric vein. Abdominal part of the chest CT from 03/22/2021 showed imaging portal vein thrombus with soft tissue density, suggestive of a tumor thrombus. ASSESSMENT AND PLAN: Mr. Braulio Son is a 80 y.o. male who has been bleeding f rom his stomal varices for the past few months. 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 Given his intractable nature of bleeding, I believe he is a candidate for sclerotherapy. I personally discussed this case with Dr. Jet Guerrero from gastroenterology. He suggested u pper GI endoscopy following stomal variceal sclerotherapy. I also personally di scussed this case with Dr. Fowler who created his ileal conduit. He was agreeable with my plan. I also reached out to Dr. Albert from colorectal surgery. He d iscussed this case in his division. Apparently, surgical intervention is not in dicated at this moment. I explained to Mr. Son and his the technique an d potential complications of sclerotherapy. The potential complications include stomal stenosis because of ischemia, or thrombosis of the superior mesenteric v ein or superficial vein connected to the stoma. Also intraperitoneal bleeding c an happen if we need to access the splenic vein via the spleen. All the questio ns Mr. Son and his had were answered. He was willing to proceed. Theref or we schedule the procedure with moderate sedation. Approximately 30 minutes were spent in total on the care of this patient, includ ing, chart review, reviewing relevant images, conducting a history and physical, counseling and discussing the risks and benefits of various treatment options. At least 90 percent of the time was spent on counseling and coordination of care with this patient. PLAN: Schedule sclerotherapy (direct puncture versus transvenous via a splenic a pproach) documented in this encounter Plan of Treatment Care Team Description Date Type Specialty 04/23/2021 Appointment Radiology Jermaine Freeman DO [facility] [address] [place] [phone] [email or web address] 05/09/2021 Office Visit Hematology and Onco logy Damion Cash MBBS [address] [place] [address] [email or web address] 05/15/2021 Telemedicine Gastroenterology Cyn Garner PA [address] [place] [address] [email or web address] 06/27/2021 Office Visit Hematology and Onco logy Health Maintenance Due Date Last Done Comments [...] this topic documented as of this encounter Results Not on filedocumented in this encounter Visit Diagnoses Diagnosis Hepatocellular carcinoma - Primary Malignant neoplasm of liver, primary documented in this encounter Care Teams Start Date End Date Software Administrator Relationship Specialty 02/12/21 Sergey Braun MD PCP - General Internal [phone] [facility] [address] [place] [address] documented as of this encounter
--- OUTSIDE RECORDS SUMMARY | 2021-04-28 11:23 | CCD | Summary of Care ---
Author Author [facility] Organization [facility] Address Unknown Phone Unavailable Care Team Providers Care Crate Repairer Name Role Phone Sergey Braun MD PCP Reason for Visit * Reason Comments Follow-up Encounter Details Care Team Description Date Type Department PeteJermaine, [address], [place] [id number] [email or web address] Hepatocellular carcinoma (Primary Dx) 04/18/2021 Office Visit Hematology Oncology [address] [place] [phone] Allergies Comments Active Allergy Reactions Severity Noted [...] Signs Reading Time Taken Comments Vital Sign 110/61 04/18/2021 10:19 AM EST Blood Pressure 95 04/18/2021 10:19 AM EST Pulse 36.2 C (97.2 F) 04/18/2021 10:19 AM EST Temperature 16 04/18/2021 10:19 AM EST Respiratory Rate 99% 04/18/2021 10:19 AM EST Oxygen Saturation - - Inhaled Oxygen Concentration 79.9 kg (176 lb 3.2 oz) 04/18/2021 10:19 AM EST Weight - - Height 24.57 04/09/2021 7:23 AM EST Body Mass Index documented in this encounter Progress Notes * Jermaine Freeman DO - 04/18/2021 10:00 AM EST I saw and evaluated the patient. Discussed with the non-physician practitioner and agree with the non-physician practitioner findings and plan as documented in their note. He is to go to ir for bleeding contorl and then we are to get him started on opd ivo We hope he does well and we are to start soon Explained all this to his and he is consenting and teaching done today And we are to start robb He needs bleeding to be controlled robb from his colostomy Total of over 45 mins used to d/w him and his to coordiante his care * ARCADIO Boone - 04/18/2021 10:00 AM EST Hematology/Oncology Follow Up Note Diagnosis: 1. Hepatocellular carcinoma Date of Cancer Diagnosis 02/07/21 Cancer Stage No matching staging information was found for the patient. Past Treatment: [No treatment plan] Current Treatment: Treatment Goal: Palliative Plan Name: OP hcc Nivolumab Opdivo 480 mg (28D x 13C) Status: Active Start Date: 05/02/2021 (Planned) End Date: 04/03/2022 (Planned) Provider: Jermaine Freeman DO Chemotherapy: nivolumab (OPDIVO) 480 mg in sodium chloride 0.9 % 100 mL chemo in fusion, 0 of 13 cycles ECOG Performance Status: 2- Ambulatory and capable of all self-care but unable t o carry out any work activities; up and about more than 50% of waking hours Oncologic History: Oncologic History Braulio Son is a 80 y.o. 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 We see him for a recent diagnosis of HCC. 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 It was felt systemic therapy would be indicated. Interim History: The patient is here for follow up. The patient has been bleeding from his ileal conduit stoma and has required transfusions-- most recently in the ED at [facility] over the weekend. He is feeling weak and fatigued. He has diffuse pruritis. Subjective: Medications and Allergies Allergies Allergen Reactions Bicalutamide Palpitations Current Outpatient Medications on File Prior to Visit Medication Sig Dispense Refill Docusate Sodium 100 [...] by mouth daily No current facility-administered medications on file prior to visit. Review of Systems see interval hx above Objective: Vitals: Vitals - 1 value per visit 04/09/2021 04/18/2021 04/18/2021 SYSTOLIC 113 110 103 DIASTOLIC 61 61 57 PULSE 89 95 94 TEMPERATURE 97.7 97.2 97.4 RESPIRATIONS 16 16 18 Weight (kg) 79.379 kg 79.924 kg - HEIGHT 180.3 cm - - SPO2 99 99 95 BODY MASS INDEX 24.41 kg/m2 24.57 kg/m2 - PAIN SCALE - SCORE 3 0 0 PAIN SCALE - COMMENT - - - Physical Exam Constitutional: General: He is not in acute distress. HENT: Mouth/Throat: Pharynx: Oropharynx is clear. Eyes: General: Scleral icterus present. Cardiovascular: Rate and Rhythm: Normal rate and regular rhythm. Heart sounds: Normal heart sounds. Pulmonary: Effort: No respiratory distress. Breath sounds: Normal breath sounds. Abdominal: General: There is no distension. Palpations: Abdomen is soft. Tenderness: There is no abdominal tenderness. There is no guarding. Musculoskeletal: General: No swelling. Normal range of motion. Skin: General: Skin is warm and dry. Neurological: General: No focal deficit present. Mental Status: He is alert and oriented to person, place, and time. Psychiatric: Mood and Affect: Mood normal. Behavior: Behavior normal. Imaging CT Thorax with Contrast Result Date: 03/27/2021 IMPRESSION: Ill-defined roughly nodular 5 mm in diameter opacity left upper lobe of indeterminate significance. Small less than 5 mm in diameter opacity in the left upper lobe as well also of uncertain significance. Possibility of early met astases cannot be excluded. There is no evidence of pleural effusion. There is n o evidence of intrathoracic lymphadenopathy. The liver is cirrhotic. Free fluid is present in the upper abdomen. There is probable splenomegaly. IR Arteriogram Visceral Result Date: 04/14/2021 IMPRESSION: 1. 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 Lab Review Results for orders placed or performed in visit on 04/18/21 (from the past 48 ho ur(s)) Partial Thromboplastin Time (PTT) Collection Time: 04/18/21 12:01 PM Result Value Ref Range PTT 31.0 24.0 - 33.0 s Protime-INR Collection Time: 04/18/21 12:01 PM Result Value Ref Range PT Patient 13.8 11.6 - 14.0 s Int'l Normalized Ratio 1.11 AFP tumor marker Collection Time: 04/18/21 12:01 PM Result Value Ref Range Alpha 1 Fetoprotein 52 (H) <9 ng/mL Comprehensive Metabolic Panel Collection Time: 04/18/21 12:01 PM Result Value Ref Range Albumin 3.2 (L) 3.5 - 5.2 g/dL Bilirubin, Total 0.5 <1.2 mg/dL Calcium 10.7 (H) 8.8 - 10.2 mg/dL Chloride 101 98 - 107 mmol/L Creatinine 1.47 (H) 0.70 - 1.20 mg/dL Glucose 175 (H) 70 - 140 mg/dL Alkaline Phosphatase 182 (H) 40 - 129 U/L Potassium 4.9 3.4 - 5.1 mmol/L Total Protein 6.9 6.4 - 8.3 g/dL Sodium 131 (L) 136 - 145 mmol/L AST/SGO 92 (H) <40 U/L Blood Urea Nitrogen 37 (H) 8 - 23 mg/dL Osmolality, Isaak 285 275 - 300 mosm/kg BUN/Cre Ratio 25 Bicarbonate 20 (L) 22 - 29 mmol/L ALT/SGP 83 (H) <41 U/L Anion Gap 10 8 - 15 mmol/L GFR Non 2008 CDK-EPI 44 (L) >60 mL/min/1.73m2 GFR 2008 CKD-EPI 51 (L) >60 mL/min/1.73m2 LDH Collection Time: 04/18/21 12:01 PM Result Value Ref Range Lactate dehydrogenase 230 (H) 122 - 225 U/L CBC and Differential Collection Time: 04/18/21 12:01 PM Result Value Ref Range White Blood Cell 4.4 4 - 10 10*3/uL Red Blood Cell 3.04 (L) 4.6 - 6.1 10*6/uL Hemoglobin 8.3 (L) 13.5 - 18 g/dL Hematocrit 25.4 (L) 41 - 53 % Mean Cell Volume 83.6 80 - 96 fL Mean Cell Hemoglobin 27.3 27 - 33 pg Mean Cell Hgb Conc 32.6 32.0 - 36.0 g/dL Red Cell Dist Width 16.4 (H) 11.5 - 14.5 % Platelet Count 192 150 - 400 10*3/uL Differential Type Automated Diff Neutrophil 71 % Lymphocyte 7 % Monocyte 11 % Eosinophil 9 % Basophil 2 % Abs Neutrophil 3.16 1.8 - 7.0 10*3/uL Abs Lymphocyte 0.30 (L) 1.2 - 4.0 10*3/uL Abs Monocyte 0.47 0 - 0.8 10*3/uL Abs Eosinophil 0.39 0 - 0.5 10*3/uL Abs Basophil 0.06 0 - 0.2 10*3/uL Nucleated Red Blood Cells 0 0 - 0 /100 Assessment: The patient is a 80 y.o. male patient with prostate cancer, s/p cystoprostatecto my and ileal conduit stoma under the care of Dr Fowler. 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 He has active bleeding from his ileal stoma requiring transfusion and he is not a candidate for angiogenesis inhibitor or TKI. His performance status would lik terrance support nivolumab. We discussed risks and side effects and the patient is ag reeable to go ahead. We will monitor for iron deficiency and replete as needed, and if he is here we can transfuse, but it may be easier for the patient to get some transfusions in [place] via his PCP. His nivolumab therapy will be once every 28 days. He had nurse teaching and sig sam the consent document. NCCN guidelines were reviewed for today's planning. Plan: Braulio Son should return in about 2 weeks for first nivolumab, labs. The patient was seen with Dr Jermaine Freeman. documented in this encounter Nursing Notes * Karma Connelly RN - 04/18/2021 10:15 AM EST Teaching provided on opdivo. Information sheets reviewed and provided to patient from [employer]. present during time of teaching. Safety precautions re viewed. Patient verbalized understanding. Consent obtained. documented in this encounter Plan of Treatment Care Team Description Date Type Specialty 04/23/2021 Appointment Radiology Jermaine Freeman DO [address] [place] [address] [email or web address] 05/09/2021 Office Visit Hematology and Onco logy Damion Cash MBBS [address] [id number] [email or web address] 05/15/2021 Telemedicine Gastroenterology Cyn Garner PA [address] [place] [address] [email or web address] 06/27/2021 Office Visit Hematology and Onco logy Order Schedule Name Type Priority Associated Diag noses Expected: 05/02/2021, Expires: 2 Ferritin Level Lab Routine Hepatocellular carcinoma Expected: 05/02/2021, Expires: 2 Iron and TIBC Lab Routine Hepatocellular carcinoma Expected: 05/02/2021, Expires: 2 Vitamin B12 Lab Routine Hepatocellular carcinoma Expected: 05/02/2021, Expires: 2 CBC and differential Lab STAT Hepatocel lular carcinoma Expected: 05/02/2021, Expires: 2 Comprehensive metabolic Lab STAT Hepato cellular carcinoma panel Expected: 05/02/2021, Expires: 2 TSH Lab Routine Hepatocellular carcinoma Health Maintenance Due Date Last Done Comments [...] Procedure Name Priority Date/Time Associated Diag nosis PARTIAL THROMBOPLASTIN Routine 04/18/2021 Hepatoc ellular carcinoma TIME (PTT) 12:01 PM EST AFP TUMOR MARKER Routine 04/18/2021 Hepatocellula r carcinoma 12:01 PM EST PROTIME INR Routine 04/18/2021 Hepatocellular carcinoma 12:01 PM EST CBC AND DIFFERENTIAL Routine 04/18/2021 Hepatocel lular carcinoma 12:01 PM EST LACTATE DEHYDROGENASE Routine 04/18/2021 Hepatoce llular carcinoma 12:01 PM EST COMPREHENSIVE METABOLIC STAT 04/18/2021 Hepato cellular carcinoma PANEL 12:01 PM EST documented in this encounter Results * Partial Thromboplastin Time (PTT) (04/18/2021 12:01 PM EST) PTT 31.0 24.0 - 33.0 s [facility] Clin Pathology Specimen Plasma Performing Organization Address [facility] P maame Number [address] [address] Clin Pathology * Protime-INR (04/18/2021 12:01 PM EST) PT Patient 13.8 11.6 - 14.0 s [facility] Clin Pathology Int'l 1.11Comment: Routine intensity LESLIE U pstate Normalized oral anticoagulation INR is Med Univ Clin Ratio typically 2.0-3.0. Target INR Patholo gy must be clinically individualized. Specimen Plasma Performing Organization Address City/[facility]/ZIP Code P maame Number [address] [address] Clin Pathology * AFP tumor marker (04/18/2021 12:01 PM EST) Alpha 1 52 (H) <9 ng/mL [facility] Fetoprotein [facility] Clin Pathology Specimen Plasma Performing Organization Address [facility]/ZIP Code P maame Number [address] [address] Clin Pathology * Comprehensive Metabolic Panel (04/18/2021 12:01 PM EST) Albumin 3.2 (L) 3.5 - 5.2 g/dL [facility] Clin Pathology Bilirubin, 0.5 <1.2 mg/dL [facility] Total [facility] Clin Pathology Calcium 10.7 (H) 8.8 - 10.2 mg/dL [facility] Clin Pathology Chloride 101 98 - 107 mmol/L [facility] Clin Pathology Creatinine 1.47 (H) 0.70 - 1.20 mg/dL [facility] Clin Pathology Glucose 175 (H) 70 - 140 mg/dL [facility] Clin Pathology Alkaline 182 (H) 40 - 129 U/L [facility] Phosphatase [facility] Clin Pathology Potassium 4.9 3.4 - 5.1 mmol/L [facility] Pathology Total Protein 6.9 6.4 - 8.3 g/dL [facility] Clin Pathology Sodium 131 (L) 136 - 145 mmol/L [facility] Clin Pathology AST/SGO 92 (H) <40 U/L [facility] Pathology Blood Urea 37 (H) 8 - 23 mg/dL [facility] Clin Pathology Osmolality, Isaak 285 275 - 300 mosm/kg [facility] Pathology BUN/Cre Ratio 25 [facility] Pathology Bicarbonate 20 (L) 22 - 29 mmol/L [facility] Clin Pathology ALT/SGP 83 (H) <41 U/L [facility] Clin Pathology Anion Gap 10 8 - 15 mmol/L [facility] Clin Pathology GFR Non 44 (L) >60 mL/min/1.73m2 [facility] 2008 Med [facility] Clin CDK-EPI Pathology GFR 51 (L) >60 mL/min/1.73m2 [facility] 2008 [facility] CKD-EPI Pathology Specimen Plasma Performing Organization Address City/State/ZIP Code P maame Number [facility] [address], [place] 132[address] PATHOLOGY [facility] [address] [place], [place] [address] Clin Pathology * LDH (04/18/2021 12:01 PM EST) Lactate 230 (H) 122 - 225 U/L [facility] Univ Clin Pathology Specimen Plasma Performing Organization Address City/[facility]/ZIP Code P maame Number [facility] [address], [place] 132[address] PATHOLOGY [facility] [address] [place], [place] [address] Clin Pathology * CBC and Differential (04/18/2021 12:01 PM EST) White Blood 4.4 4 - 10 10*3/uL [facility] Univ Clin Pathology Red Blood Cell 3.04 (L) 4.6 - 6.1 10*6/uL [facility] Clin Pathology Hemoglobin 8.3 (L) 13.5 - 18 g/dL [facility] Clin Pathology Hematocrit 25.4 (L) 41 - 53 % [facility] Univ Clin Pathology Mean Cell 83.6 80 - 96 fL [facility] Volume [facility] Univ Clin Pathology Mean Cell 27.3 27 - 33 pg [facility] Hemoglobin [facility] Univ Clin Pathology Mean Cell Hgb 32.6 32.0 - 36.0 g/dL [facility] Univ Clin Pathology Red Cell Dist 16.4 (H) 11.5 - 14.5 % [facility] Width [facility] Univ Clin Pathology Platelet Count 192 150 - 400 10*3/uL [facility] Clin Pathology Differential Automated Diff [facility] Type [facility] Univ Clin Pathology Neutrophil 71 % [facility] Univ Clin Pathology Lymphocyte 7 % [facility] Univ Clin Pathology Monocyte 11 % [facility] Univ Clin Pathology Eosinophil 9 % [facility] Clin Pathology Basophil 2 % [facility] Clin Pathology Abs Neutrophil 3.16 1.8 - 7.0 10*3/uL [facility] Univ Clin Pathology Abs Lymphocyte 0.30 (L) 1.2 - 4.0 10*3/uL [facility] Univ Clin Pathology Abs Monocyte 0.47 0 - 0.8 10*3/uL [facility] Univ Clin Pathology Abs Eosinophil 0.39 0 - 0.5 10*3/uL [facility] Univ Clin Pathology Abs Basophil 0.06 0 - 0.2 10*3/uL [facility] Univ Clin Pathology Nucleated Red 0 0 - 0 /100{WBCs} [facility] Blood Cells [facility] Univ Clin Pathology Specimen EDTA Whole Blood Performing Organization Address City/[facility]/ZIP Code P maame Number [facility] [address], [place] [address] PATHOLOGY [facility] [address] [place], [place] [address] Clin Pathology documented in this encounter Visit Diagnoses Diagnosis Hepatocellular carcinoma - Primary Malignant neoplasm of liver, primary documented in this encounter Care Teams Start Date End Date Crate Repairer Relationship Specialty 02/12/21 Sergey Braun MD PCP - General Internal [phone] [facility] [address] [place] [address] documented as of this encounter
--- NOTE | 2021-04-28 11:25 | REP ---
INDICATION: Altered Mental Status COMPARISON: 04/13/2021 TECHNIQUE: Portable AP view of the chest FINDINGS: Examination is limited by poor inspiratory effort and portable technique/underpenetration. No obvious focal consolidation. No definite effusion. No pneumothorax. Mediastinum and cardiac silhouette grossly normal for portable exam. IMPRESSION: Limited examination primarily due to decreased inspiratory effort. No obvious focal consolidation or definite effusion. <Electronically signed by Nabil Mccauley > 04/28/21 1125
[2021-04-28 11:27] LABS: INR 1.15; PROTHROMBIN TIME 15.1 SECONDS (12.7-14.5)
[2021-04-28 11:28] LABS: PARTIAL THROMBOPLASTIN TIME 37.5 SECONDS (25.9-37.0)
--- OUTSIDE RECORDS SUMMARY | 2021-04-28 11:28 | CCD ---
Author Author [facility] Organization [facility] Address Unknown Phone Unavailable Care Team Providers Care Junior Mechanical Engineer Name Role Phone Bhutta, Damion Unavailable Bhutta, [...] Unavailable ANDREINA, M DENVER PA Unavailable Unavailable OUMOU KNOWLES MD Unavailable Unavailable OUMOU KNOWLES MD Unavailable Unavailable OUMOU KNOWLES MD Unavailable Unavailable OUMOU KNOWLES MD Unavailable Unavailable OUMOU KNOWLES MD Unavailable Unavailable OUMOU KNOWLES MD Unavailable Unavailable OUMOU KNOWLES MD Unavailable Unavailable OUMOU KNOWLES MD Unavailable Unavailable OUMOU KNOWLES MD Unavailable Unavailable OUMOU KNOWLES MD Unavailable Unavailable OUMOU KNOWLES MD Unavailable Unavailable OUMOU KNOWLES MD Unavailable Unavailable SYLVIA, KADE Unavailable Unavailable Eulalia Muñiz MD Unavailable Unavailable [...] Unavailable Unavailable Eulalia Muñiz MD Unavailable Unavailable ALEKSIC ILIJA MD Unavailable [...] Unavailable Pete, Jermaine DO Unavailable Unavailable Pete, Jemraine DO Unavailable Unavailable Pete, Jermaine DO Unavailable [...] Unavailable MADISSOO, Amee MANUEL MD Unavailable Unavailable MADARIELAOOAmee MD [...] Unavailable MADISSOO, Amee MANUEL MD Unavailable Unavailable MADISSOOAmeeS MD Unavailable Unavailable Amee CASTANEDA MD Unavailable [...] Unavailable Unavailable Amee PEREZ MD Unavailable Unavailable Cloonan, L Cyn PA Unavailable [...] Unavailable Cloonan, L Cyn PA Unavailable Unavailable Cloderekn, L Cyn PA Unavailable Unavailable Cloonan, L [...] Unavailable Cloonan, L Cyn PA Unavailable Unavailable Kitchen, N Po MD Unavailable [...] HARTZHEIM, Bessie JULIAN MD Unavailable Unavailable HARTZHEIM, S IESHA MD Unavailable Unavailable Bessie CARLIN MD Unavailable Unavailable Bessie CARLIN MD Unavailable Unavailable Bessie CARLIN MD Unavailable Unavailable Bessie CARLIN MD Unavailable Unavailable Bessie CARLIN MD Unavailable Unavailable BHUTTADAMION Unavailable Unavailable ALEKSIC ILIJUAN A MD Unavailable Unavailable ALEKSIC ILIJUAN A MD Unavailable Unavailable ALEKSIC ILIJUAN A MD Unavailable Unavailable ALEKSIC ILIJUAN A MD Unavailable Unavailable ALEKSIC, ILIJA MD Unavailable Unavailable ALEKSIC, ILIJA MD Unavailable Unavailable ALEKSIC, ILIJA MD Unavailable Unavailable ALEKSIC ILIJA MD Unavailable Unavailable ALEKSIC ILIJA MD Unavailable Unavailable ALEKSIC ILIJA MD Unavailable Unavailable ALEKSIC ILIJUAN A MD Unavailable Unavailable ALEKSIC ILIJA MD Unavailable Unavailable ALEKSIC ILIJA MD Unavailable Unavailable ALEKSIC ILIJA MD Unavailable Unavailable ALEKSIC ILIJUAN A MD Unavailable Unavailable ALEKSIC ILIJA MD Unavailable Unavailable ALEKSIC ILIJUAN A MD Unavailable Unavailable ALEKSIC ILIJA MD Unavailable Unavailable ALEKSIC, ILIJA MD Unavailable Unavailable ALEKSIC ILIJA MD Unavailable Unavailable ALEKSIC ILIJA MD Unavailable Unavailable ALEKSIC ILIJA MD Unavailable Unavailable ALEKSIC ILIJA MD Unavailable Unavailable ALEKSIC ILIJUAN A MD Unavailable Unavailable ALEKSIC ILIJUAN A MD Unavailable Unavailable ALEKSIC ILIJUAN A MD Unavailable Unavailable ALEKSIC ILIJUAN A MD Unavailable Unavailable ALEKSIC ILIJA MD Unavailable Unavailable ALEKSIC ILIJA MD Unavailable Unavailable ALEKSIC ILIJA MD Unavailable Unavailable ALEKSIC ILIJUAN A [...] Unavailable Unavailable Sai YANEZ MD Unavailable Unavailable Westbrook, F Tarah PA Unavailable Unavailable [place]brook, F Tarah PA Unavailable Unavailable Easton, F Tarah PA Unavailable Unavailable [place]brook, F Tarah PA Unavailable Unavailable [place], F Tarah PA Unavailable Unavailable Easton, F Tarah PA Unavailable Unavailable Easton, F Tarah PA Unavailable Unavailable [place]brook, F Tarah PA Unavailable Unavailable [place]on, F Tarah PA Unavailable Unavailable [place], F Tarah PA Unavailable Unavailable Easton, F Tarah PA Unavailable Unavailable Easton, F Tarah PA Unavailable Unavailable Westbrook, F Tarah PA Unavailable Unavailable Westbrook, F Tarah PA Unavailable Unavailable Easton, F Tarah PA Unavailable Unavailable Easton, F Tarah PA Unavailable Unavailable Westbrook, F Tarah PA Unavailable Unavailable Easton, F Tarah PA Unavailable Unavailable Easton, F Tarah PA Unavailable Unavailable [place]on, F Tarah PA Unavailable Unavailable [place]on, F Tarah PA Unavailable Unavailable Westbrook, F Tarah PA Unavailable Unavailable [place]brook, F Tarah PA Unavailable Unavailable [place]on, F Tarah PA Unavailable Unavailable [place], F Tarah PA Unavailable Unavailable [place]on, F Tarah PA Unavailable Unavailable [place], F Tarah PA Unavailable Unavailable [place]on, F Tarah PA Unavailable Unavailable [place]on, F Tarah PA Unavailable Unavailable [place], F Tarah PA Unavailable Unavailable [place]on, F Tarah PA Unavailable Unavailable [place], F Tarah PA Unavailable Unavailable [place], F Tarah PA Unavailable Unavailable [place], F Tarah PA Unavailable Unavailable [place], F Tarah PA Unavailable Unavailable [place], F Tarah PA Unavailable Unavailable [place], F Tarah PA Unavailable Unavailable [place], F Tarah PA Unavailable Unavailable Melyssa RANKIN MD Unavailable [...] Unavailable Unavailable GARETH MONTANA MD Unavailable Unavailable Asha COOLEY MD Unavailable Unavailable Asha COOLEY MD Unavailable Unavailable Asha COOLEY MD Unavailable Unavailable Asha COOLEY MD Unavailable Unavailable Asha COOLEY MD Unavailable Unavailable Asha COOLEY MD Unavailable Unavailable Asha COOLEY MD Unavailable Unavailable Asha COOLEY MD Unavailable Unavailable Asha COOLEY MD Unavailable Unavailable Asha COOLEY MD Unavailable Unavailable Asha COOLEY MD Unavailable Unavailable Asha COOLEY MD Unavailable Unavailable Asha COOLEY MD Unavailable Unavailable Asha COOLEY MD Unavailable Unavailable Asha COOLEY MD Unavailable Unavailable Asha COOLEY MD Unavailable Unavailable Asha COOLEY MD Unavailable Unavailable Asha COOLEY MD Unavailable Unavailable Asha COOLEY MD Unavailable Unavailable Amee CASTANEDA MD Unavailable Unavailable Amee CASTANEDA MD Unavailable Unavailable Amee CASTANEDA MD Unavailable Unavailable Amee CASTANEDA MD Unavailable Unavailable Amee CASTANEDA MD Unavailable Unavailable Amee CASTANEDA MD Unavailable Unavailable Amee CASTANEDA MD Unavailable Unavailable MADARIELAOOAmee MD Unavailable Unavailable MADISSOOAmee MD Unavailable Unavailable MADISSOOAmee MD Unavailable Unavailable MADISSOOAmee MD Unavailable Unavailable MADISSOOAmee MD Unavailable Unavailable MADARIELAOO, Amee MANUEL MD [...] MANUEL MD Unavailable Unavailable MADISSOO, M MAR MANN Unavailable Unavailable MADISSOO, Amee MANUEL MD Unavailable [...] Unavailable MADISSOO, Amee MANUEL MD Unavailable Unavailable MADARIELAOOAmee MD [...] MD Unavailable Unavailable MADISSOOAmee MD Unavailable Unavailable TABATHAISSOOAmee MD Unavailable Unavailable MADISSOOAmee MD Unavailable Unavailable MADISSOOAmee MD Unavailable Unavailable DENISEOOAmee MD Unavailable Unavailable DENISEOOAmee MD Unavailable Unavailable DENISEOOAmee MD Unavailable Unavailable Clyde BURCH Unavailable Unavailable KARI ALAS MD Unavailable Unavailable KARI ALAS MD Unavailable Unavailable KARI ALAS MD Unavailable Unavailable KARI ALAS MD Unavailable Unavailable KARI ALAS MD Unavailable Unavailable KARI ALAS MD Unavailable Unavailable KARI ALAS MD Unavailable Unavailable KARI ALAS MD Unavailable Unavailable KARI ALAS MD Unavailable Unavailable KARI ALAS MD Unavailable Unavailable KARI ALAS MD Unavailable Unavailable KARI ALAS MD Unavailable Unavailable KARI ALAS MD Unavailable Unavailable KARI ALAS MD Unavailable Unavailable KARI ALAS MD Unavailable Unavailable KARI ALAS MD Unavailable Unavailable KARI ALAS MD Unavailable Unavailable PHYSICIAN, PHYSICIAN ER Unavailable Unavailable [...] Unavailable Unavailable Melyssa RANKIN MD Unavailable Unavailable KUDARAVALLI, PUJITHA Unavailable Unavailable Анна Braun MD Unavailable Unavailable [...] Unavailable Анна Braun MD Unavailable Unavailable KadeАнна MD Unavailable Unavailable KadeАнна MD Unavailable Unavailable Kade, Анна MANN Unavailable Unavailable Kade, Анна MANN Unavailable Unavailable KadeАнна MD Unavailable Unavailable KadeАнна MD Unavailable Unavailable KadeАнна MD Unavailable Unavailable KadeАнна MD Unavailable Unavailable KadeАнна MD Unavailable Unavailable KadeАнна MD Unavailable Unavailable KadeАнна MD Unavailable Unavailable KadeАнна MD Unavailable Unavailable Kade, Анна MANN Unavailable Unavailable KadeАнна MD Unavailable Unavailable KadeАнна MD Unavailable Unavailable KadeАнна MD Unavailable Unavailable KadeАнна MD Unavailable Unavailable KadeАнна MD Unavailable Unavailable KadeАнна MD Unavailable Unavailable KadeАнна MD Unavailable Unavailable KadeАнна MD Unavailable Unavailable KadeАнна ruiz MD Unavailable Unavailable Анна Braun MD Unavailable [...] is protected by Article 27-F of the [facility] Public Health law. If you continue you may have access to information: Regarding HIV / AIDS; Provided by facilities licensed or operated by the [facility] Office of Mental Health; or Provided by the [facility] Office for People With Developmental Disabilities. If such information is present, then the following [facility] mandated warning applies: This information has [...] law may result in a fine or long term sentence or both. A general authorization for the release of medical or other information is NOT sufficient authorization for further disc losure. Allergies and Adverse Reactions Type Description Substance Reaction Status Data Source(s ) Propensity to adverse reactions NO KNOWN ALLERGIES NO KNOWN ALLERGIES [facility] Propensity to adverse reactions BICALUTAMIDE BICALUTAMIDE Palpitation s [facility] Casodex Casodex Casodex active NETSMART ([facility]) Family History Family Member Name Family Member Gender Family Member Status Date o f Status Description Data Source(s) Unknown Unknown Problem [facility] Unknown Unknown Problem [facility] ([facility] Encounters Encounter Providers Location Date Indications Data Source(s ) Outpatient Attender: Cyn ERVIN 06/27/2021 12:00:0 0 AM [facility] Outpatient Attender: Jermaine Freeman DO 06/27/2021 12:00:00 AM [facility] Outpatient Attender: DAMION CASHAttender: Damion Cash 05/15/2021 12:00:00 AM [facility] Outpatient Attender: Jermaine Freeman DO 05/09/2021 12:00:00 AM [facility] Outpatient Attender: JOSE BAILEY [id number] 04/24/2021 05:06:16 PM [facility] Outpatient Attender: Moni FlorezAttender: MONI SINCLAIR . 04/24/2021 12:00:00 AM [facility] Outpatient Attender: BREANA COOLEY MDA ttender: JACK KNOWLES MDAttender: KARI ALAS MDAttender: Eulalia Muñiz MDAdmitter: Eulalia Muñiz MDReferrer: Eulalia Muñiz MDConsultant: BREANA COOLEY MD [id number] 04/23/2021 12:09:30 PM EST - 04/24/2021 05:10:00 PM EST Other complications of procedures, not elsewhere classified, initial encounter [facility] Other complications of procedures, not e lsewhere classified, initial encounter Patient discharged. Outpatient Attender: Jermaine Freeman DO 04/23/2021 12:00:00 AM [facility] Outpatient Attender: Jermaine Freeman [id number] 04/18/20 12:00:00 AM [facility] - 04/18/2021 11:52:54 AM [facility] Outpatient Attender: Eulalia Muñiz MD [id number] 04/18/2021 12:00:00 AM [facility] - 04/18/2021 03:04:16 PM [facility] Outpatient Attender: ELIO VARGAS [id number] 04/12/2021 12:02:55 PM [facility] Outpatient Attender: Eulalia Galvan i MDAdmitter: Eulalia Muñiz MDReferrer: Eulalia Muñiz MD [id number] 04/09/2021 12:00:00 AM [facility] - 04/09/2021 02:53:00 PM [facility] Liver cell carcinoma [facility] Liver cell carcinoma Patient admitted. Outpatient Referrer: Eulalia Muñiz MD 04/09/2021 12: 00:00 AM [facility] Outpatient Referrer: Eulalia Muñiz MD 04/09/2021 12: 00:00 AM [facility] Outpatient Attender: MARC EDAttender : JENNIFER BURCHReferrer: Eulalia Muñiz MD [id number] 04/05/2021 12:00:00 AM EDT - 04/06/2021 12:00:00 AM T [facility] Out[place] [address] [address] 04/02/2021 12:00:00 AM EDT eCW1 ([facility]) ( in Healthcare facility) Attender: INNA YANEZ MDAdmitter: ABIOLA YANEZ MDConsultant: KADE WARD 03/30/2021 01:33:00 AM EDT [facility] Emergency Attender: ABIOLA BLOUNT I MDAttender: GARETH MONTANA MDAttender: ER PHYSICIAN 03/29/2021 10:43:15 PM EDT [facility] Outpatient Attender: ABIOLA BLOUNT I MDAttender: GARETH MONTANA MDAttender: ER PHYSICIANAdmitter: ABIOLA YANEZ MD 09:05:00 PM EDT - 03/31/2021 02:19:00 PM EDT RECURRENT OSTOMY BLEED, HX OF BLADDER CA, LIVER CA [facility] RECURRENT OSTOMY BLEED, HX OF BLADDER CA , LIVER CA Patient discharged. Outpatient Attender: Jermaine Freeman DO [id number] 03/28/20 12:00:00 AM EDT - 03/28/2021 03:07:13 PM EDT [facility] Outpatient Referrer: Jermaine Freeman DO 03/22/2021 12:00: 00 AM EDT Liver cell carcinoma [facility] Liver cell carcinoma Outpatient Attender: Krista Meneses/ Asha.M.P. Urology 03/20 09:40:00 AM EDT [facility] Unknown [address] [address] 03/19/2021 12:00:00 AM EDT eC1 ([facility]) Outpatient Attender: Eulalia Muñiz MD [id number] 03/15/2021 03:57:13 PM EDT [facility] Office Visit Attender: DENVER Meneses/ A.M.P. Urol ogy 03/12/2021 04:58:00 PM EDT [facility] ([facility]) Outpatient Attender: DENVER Meneses/ A.M.P. Urol ogy 03/11/2021 08:24:00 AM EDT [facility] ([facility]) Inpatient Attender: ELIZABETH WATERS MDAttender: ER PHYSICIAN 03/10/2021 02:21:00 PM EDT [facility] Inpatient Attender: ELIZABETH WATERS MDAttender: ER PHYSICIAN 03/10/2021 01:33:49 PM EDT [facility] Inpatient Attender: ELIZABETH WATERS MDAt tender: ER PHYSICIANAdmitter: ELIZABETH WATERS MD 03/10/2021 12:23:00 PM EDT - 03/12/2021 03:09:00 PM EDT BLEEDING STOMA [facility] BLEEDING STOMA Patient discharged. [place] [address] [address] 03/06/2021 12:00:00 AM EDT eCW1 ([facility]) [place] [address] [address] 03/05/2021 12:00:00 AM EDT eCW1 ([facility]) Outpatient [address] [address] 03/05/2021 12:00:00 AM EDT eCW1 ([facility]) Outpatient Attender: Eulalia Muñiz MD [id number] 03/04/2021 12:00:00 AM EDT - 03/04/2021 12:42:30 PM EDT [facility] spital Outpatient 03/04/2021 12:00:00 AM EDT [facility] Outpatient Attender: Jermaine Freeman DO [id number] 02/29/20 12:00:00 AM EDT - 02/28/2021 12:20:04 PM T [facility] Unknown [address] [address] 02/20/2021 12:00:00 AM EDT eCW1 ([facility]) Outpatient Attender: IESHA CARLIN MD CMP Internal Med a t Edna 02/18/2021 02:13:00 AM EDT [facility] ([facility]) Outpatient Attender: IESHA CARLIN MD CMP Internal Med a t Edna 02/17/2021 01:59:00 AM EDT [facility] ([facility]) Outpatient Attender: ER PHYSICIAN 02/16/2021 01:10:00 AM E [facility] Inpatient Attender: NIRALI Stroud donis: GARETH MONTANA MDAttender: ER PHYSICIANAdmitter: GARETH MONTANA MD 02/16/2021 12:28:09 AM EDT [facility] Inpatient Attender: NIRALI Stroud donis: GARETH MONTANA MDAttender: ER PHYSICIANAdmitter: NIRALI RANKIN MD 02/15/2021 10:55:00 P M EDT - 02/18/2021 10:51:00 AM EDT ACUTE BLOOD LOSS ANEMIA [facility] ACUTE BLOOD LOSS ANEMIA Patient discharged. [place] [address] [address] 02/15/2021 12:00:00 AM EDT eCW1 ([facility]) Outpatient Attender: MAR Meneses/ Asha.KarolP. Urol ogy 02/14/2021 10:00:00 AM EDT [facility] Outpatient Admitter: Анна Braun MDReferrer: Анна Braun MD 02/12/2021 12:00:00 AM EDT Liver cell carcinoma [facility] Liver cell carcinoma [place] [address] [address] 02/05/2021 12:00:00 AM EDT eCW1 ([facility]) Inpatient Attender: ER PHYSICIAN 01/31/2021 12:56:00 AM E DT [facility] Inpatient Attender: ARNAUD PEREZ MDAttender: ER P HYSICIATIYA 01/31/2021 12:29:40 AM EDT [facility] Inpatient Attender: ARNAUD HAAS MDAttender: ER PHYSICIANAdmitter: ARNAUD PEREZ MD 01/30/2021 10:55:00 PM EDT - 01/31/2021 11:15:00 AM EDT HEMATURIA [facility] HEMATURIA Patient discharged. Outpatient Attender: Kalia Meneses/ A.M.P. Urolo gy 01/22/2021 11:00:00 AM EDT [facility] [place] [address] [address] 01/22/2021 12:00:00 AM EDT eCW1 ([facility]) [place] [address] [address] 01/22/2021 12:00:00 AM EDT eCW1 ([facility]) [place] [address] [address] 01/17/2021 12:00:00 AM EDT [facility]CW1 ([facility]) [place] [address] [address] 01/16/2021 12:00:00 AM EDT eCW1 ([facility]) [place] [address] [address] 01/09/2021 12:00:00 AM EDT eCW1 ([facility]) [place] [address] [address] 01/08/2021 12:00:00 AM EDT eCW1 ([facility]) Outpatient [address] [address] 01/01/2021 12:00:00 AM EDT eCW1 ([facility]) [place] [address] [address] 12/25/2020 12:00:00 AM EDT eCW1 ([facility]) [place] [address] [address] 12/24/2020 12:00:00 AM EDT eCW1 ([facility]) Office Visit Attender: Tarah Mneeses/ Leonardo sullivan 12/05/2020 10:30:00 AM EDT [facility]) [place] [address] [address] 11/29/2020 12:00:00 AM EDT eCW1 ([facility]) Outpatient [address] [address] 11/28/2020 12:00:00 AM EDT eCW1 ([facility]) 11/24/2020 01:00:00 AM EDT - 021 11:47:23 PM EDT NETSMART ([facility]) Inpatient Attender: LORENA RITTER MD 11/13/2020 12:03:14 PM EDT [facility] Inpatient Attender: Krista Kitchen MDAdmitter: Krista Kitchen MD 11/13/2020 10:43:00 AM EDT - 11/22/2020 02:37:00 PM EDT 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 [place] ( in Healthcare facility) Attender: Krista Sesay MDAdmitter: Krista Kitchen MDConsultant: KADE WARD 11/13/2020 10:43:00 AM EDT [facility] Inpatient Attender: Krista Kitchen MD 11/13/2020 10:43:00 AM EDT [facility] Unknown [address], [facility] [address] 11/09/2020 12:00:00 AM EDT eCW1 ([facility]) Unknown [address] [address] 11/08/2020 12:00:00 AM EDT eCW1 ([facility]) Outpatient [address] [facility] [address] 11/07/2020 12:00:00 AM EDT eCW1 ([facility]) Outpatient Attender: LORENA RITTER MD 11/06/2020 01:09:23 PM EDT [facility] Outpatient Attender: Krista Kitchen MD 11/06/2020 11:56:00 A M EDT ROBOTIC XI ASSISTED LAPAROSCOPIC CYSTOPROSTATECTOMY ILEOCOND [facility] ROBOTIC XI ASSISTED LAPAROSCOPIC CYSTOPR OSTATECTOMY ILEOCOND [place] [address] [address] 09/11/2020 12:00:00 AM EDT eCW1 ([facility]) Outpatient Attender: Krista Meneses/ CmMGwenPGwen Urology 09/10 04:00:00 PM EDT [facility] Outpatient Attender: MAR Meneses/ A.M.P. Urol ogy 08/03/2020 01:30:00 PM EST [facility] Outpatient Attender: Kalia Saxena RPA [place]/ A.M.P. Urolo gy 07/20/2020 01:15:00 PM EST [facility] Outpatient Attender: Kalia Saxena RPA [place]/ A.M.P. Urolo gy 05/30/2020 01:00:00 PM EST [facility] [place] [address] [address] 05/18/2020 12:00:00 AM EST eCW1 ([facility]) Outpatient [address] [address] 05/11/2020 12:00:00 AM EST eCW1 ([facility]) Outpatient [address] [address] 05/08/2020 12:00:00 AM EST eCW1 ([facility]) Outpatient Attender: Krista Kitchen MD [place]/ A.M.P. Urology 04/20 07:30:00 AM EST [facility] [place] [address] [address] 03/27/2020 12:00:00 AM EDT eCW1 ([facility]) Outpatient Attender: MAR Meneses/ A.M.P. Urol ogy 03/22/2020 11:00:00 AM EDT [facility] Outpatient Attender: Kalia Saxena RPA [place]/ A.M.P. Urolo gy 03/20/2020 03:00:00 PM EDT [facility] Outpatient Attender: Kalia Saxena RPA [place]/ A.M.P. Urolo gy 03/16/2020 02:45:00 PM EDT [facility] ([facility] Outpatient Referrer: MAR CASTANEDA MD MOB-MOB.PAT 11:08:19 AM EDT - 02/26/2020 11:08:37 AM EDT [facility] Attender: MAR CASTANEDA MD Admitter: MAR CASTANEDA MDReferrer: MAR CASTANEDA MD [facility] 01/19/2020 10:10:55 AM EDT - 03/02/2020 01:04:00 PM EDT [facility] Patient discharged. Immunizations Vaccine Date Status Description Data Source(s) Pfizer #3 dose COVID-19 SARSCOV2 VAC 30MCG/0.3ML IM 03/14/20 06:15:00 AM EDT completed eCW1 ([facility]) COVID-19 VACC, MRNA(PFIZER)/PF 03/14/2021 12:00:00 AM EDT completed [facility] COVID-19 VACCINE Pfizer 03/14/2021 12:00:00 AM EDT completed [facility] Vaccine Series Complete: YESThis Data wa s Submitted to [facility] Via [employer]. IIV3. This is one of two codes replacing CVX 15, which is being retired. 02/26/2021 06:37:00 AM EDT completed eCW1 ([facility]) IIV3. This is one of two codes replacing CVX 15, which is being retired. 02/26/2021 06:37:00 AM EDT completed eCW1 ([facility]) IIV3. This is one of two codes replacing CVX 15, which is being retired. 02/26/2021 06:37:00 AM EDT completed eCW1 ([facility]) IIV3. This is one of two codes replacing CVX 15, which is being retired. 02/26/2021 06:37:00 AM EDT completed eCW1 ([facility]) IIV3. This is one of two codes replacing CVX 15, which is being retired. 02/26/2021 06:37:00 AM EDT completed eCW1 ([facility]) IIV3. This is one of two codes replacing CVX 15, which is being retired. 02/26/2021 06:37:00 AM EDT completed eCW1 ([facility]) 197 02/26/2021 12:00:00 AM EDT completed <td I D="[id number]">Influenza Quad High Dose IM Pres Free >=65YO</td><td>02/26/2021, 03/08/2020</td><td></td> [facility] COVID-19 dose #2 given elsewhere Unspecified 07/29/2020 06:0 7:00 AM EST completed eCW1 ([facility]) COVID-19 dose #2 given elsewhere Unspecified 07/29/2020 06:0 7:00 AM EST completed eCW1 ([facility]) COVID-19 dose #2 given elsewhere Unspecified 07/29/2020 06:0 7:00 AM EST completed eCW1 ([facility]) COVID-19 dose #2 given elsewhere Unspecified 07/29/2020 06:0 7:00 AM EST completed eCW1 ([facility]) COVID-19 dose #2 given elsewhere Unspecified 07/29/2020 06:0 7:00 AM EST completed eCW1 ([facility]) COVID-19 dose #2 given elsewhere Unspecified 07/29/2020 06:0 7:00 AM EST completed eCW1 ([facility]) COVID-19 dose #2 given elsewhere Unspecified 07/29/2020 06:0 7:00 AM EST completed eCW1 ([facility]) COVID-19 dose #2 given elsewhere Unspecified 07/29/2020 06:0 7:00 AM EST completed eCW1 ([facility]) COVID-19 dose #2 given elsewhere Unspecified 07/29/2020 06:0 7:00 AM EST completed eCW1 ([facility]) COVID-19 dose #2 given elsewhere Unspecified 07/29/2020 06:0 7:00 AM EST completed eCW1 ([facility]) COVID-19 dose #2 given elsewhere Unspecified 07/29/2020 06:0 7:00 AM EST completed eCW1 ([facility]) COVID-19 dose #2 given elsewhere Unspecified 07/29/2020 06:0 7:00 AM EST completed eCW1 ([facility]) COVID-19 dose #2 given elsewhere Unspecified 07/29/2020 06:0 7:00 AM EST completed eCW1 ([facility]) COVID-19 dose #2 given elsewhere Unspecified 07/29/2020 06:0 7:00 AM EST completed eCW1 ([facility]) COVID-19 dose #2 given elsewhere Unspecified 07/29/2020 06:0 7:00 AM EST completed eCW1 ([facility]) COVID-19 dose #2 given elsewhere Unspecified 07/29/2020 06:0 7:00 AM EST completed eCW1 ([facility]) COVID-19 dose #2 given elsewhere Unspecified 07/29/2020 06:0 7:00 AM EST completed eCW1 ([facility]) COVID-19 dose #2 given elsewhere Unspecified 07/29/2020 06:0 7:00 AM EST completed eCW1 ([facility]) COVID-19 dose #2 given elsewhere Unspecified 07/29/2020 06:0 7:00 AM EST completed eCW1 ([facility]) COVID-19 dose #2 given elsewhere Unspecified 07/29/2020 06:0 7:00 AM EST completed eCW1 ([facility]) COVID-19 dose #2 given elsewhere Unspecified 07/29/2020 06:0 7:00 AM EST completed eCW1 ([facility]) COVID-19 dose #2 given elsewhere Unspecified 07/29/2020 06:0 7:00 AM EST completed eCW1 ([facility]) COVID-19 (Pfizer), mRNA, LNP-S, PF, 30 mcg/0.3 mL dose 07/29/2020 12:00:00 AM EST completed [facility] COVID-19 VACCINE Pfizer 07/29/2020 12:00:00 AM EST completed [facility] Vaccine Series Complete: YESThis Data wa s Submitted to [facility] Via [employer]. [facility] Covid-19 Sars-Cov-2, mRNA, LNP-S, PF, 30 mcg/ 0 .3 mL 07/28/2020 11:00:00 PM EST completed [facility]ENT ([facility]) COVID-19 dose #1 given elsewhere Unspecified 07/08/2020 06:0 7:00 AM EST completed eCW1 ([facility]) COVID-19 dose #1 given elsewhere Unspecified 07/08/2020 06:0 7:00 AM EST completed eCW1 ([facility]) COVID-19 dose #1 given elsewhere Unspecified 07/08/2020 06:0 7:00 AM EST completed eCW1 ([facility]) COVID-19 dose #1 given elsewhere Unspecified 07/08/2020 06:0 7:00 AM EST completed eCW1 ([facility]) COVID-19 dose #1 given elsewhere Unspecified 07/08/2020 06:0 7:00 AM EST completed eCW1 ([facility]) COVID-19 dose #1 given elsewhere Unspecified 07/08/2020 06:0 7:00 AM EST completed eCW1 ([facility]) COVID-19 dose #1 given elsewhere Unspecified 07/08/2020 06:0 7:00 AM EST completed eCW1 ([facility]) COVID-19 dose #1 given elsewhere Unspecified 07/08/2020 06:0 7:00 AM EST completed eCW1 ([facility]) COVID-19 dose #1 given elsewhere Unspecified 07/08/2020 06:0 7:00 AM EST completed eCW1 ([facility]) COVID-19 dose #1 given elsewhere Unspecified 07/08/2020 06:0 7:00 AM EST completed eCW1 ([facility]) COVID-19 dose #1 given elsewhere Unspecified 07/08/2020 06:0 7:00 AM EST completed eCW1 ([facility]) COVID-19 dose #1 given elsewhere Unspecified 07/08/2020 06:0 7:00 AM EST completed eCW1 ([facility]) COVID-19 dose #1 given elsewhere Unspecified 07/08/2020 06:0 7:00 AM EST completed eCW1 ([facility]) COVID-19 dose #1 given elsewhere Unspecified 07/08/2020 06:0 7:00 AM EST completed eCW1 ([facility]) COVID-19 dose #1 given elsewhere Unspecified 07/08/2020 06:0 7:00 AM EST completed eCW1 ([facility]) COVID-19 dose #1 given elsewhere Unspecified 07/08/2020 06:0 7:00 AM EST completed eCW1 ([facility]) COVID-19 dose #1 given elsewhere Unspecified 07/08/2020 06:0 7:00 AM EST completed eCW1 ([facility]) COVID-19 dose #1 given elsewhere Unspecified 07/08/2020 06:0 7:00 AM EST completed eCW1 ([facility]) COVID-19 dose #1 given elsewhere Unspecified 07/08/2020 06:0 7:00 AM EST completed eCW1 ([facility]) COVID-19 dose #1 given elsewhere Unspecified 07/08/2020 06:0 7:00 AM EST completed eCW1 ([facility]) COVID-19 dose #1 given elsewhere Unspecified 07/08/2020 06:0 7:00 AM EST completed eCW1 ([facility]) COVID-19 dose #1 given elsewhere Unspecified 07/08/2020 06:0 7:00 AM EST completed eCW1 ([facility]) COVID-19 (Pfizer), mRNA, LNP-S, PF, 30 mcg/0.3 mL dose 07/08/2020 12:00:00 AM EST completed [facility] COVID-19 VACCINE Pfizer 07/08/2020 12:00:00 AM EST completed [facility] Vaccine Series Complete: NOThis Data was Submitted to [facility] Via [employer]. Pfizer Covid-19 Sars-Cov-2, mRNA, LNP-S, PF, 30 mcg/ 0 .3 mL 07/07/2020 11:00:00 PM EST completed MEDENT ([facility]) IIV3. This is one of two codes replacing CVX 15, which is being retired. 03/08/2020 06:06:00 AM EDT completed eCW1 ([facility]) IIV3. This is one of two codes replacing CVX 15, which is being retired. 03/08/2020 06:06:00 AM EDT completed eCW1 ([facility]) IIV3. This is one of two codes replacing CVX 15, which is being retired. 03/08/2020 06:06:00 AM EDT completed eCW1 ([facility]) IIV3. This is one of two codes replacing CVX 15, which is being retired. 03/08/2020 06:06:00 AM EDT completed eCW1 ([facility]) IIV3. This is one of two codes replacing CVX 15, which is being retired. 03/08/2020 06:06:00 AM EDT completed eCW1 ([facility]) IIV3. This is one of two codes replacing CVX 15, which is being retired. 03/08/2020 06:06:00 AM EDT completed eCW1 ([facility]) IIV3. This is one of two codes replacing CVX 15, which is being retired. 03/08/2020 06:06:00 AM EDT completed eCW1 ([facility]) IIV3. This is one of two codes replacing CVX 15, which is being retired. 03/08/2020 06:06:00 AM EDT completed eCW1 ([facility]) IIV3. This is one of two codes replacing CVX 15, which is being retired. 03/08/2020 06:06:00 AM EDT completed eCW1 ([facility]) IIV3. This is one of two codes replacing CVX 15, which is being retired. 03/08/2020 06:06:00 AM EDT completed eCW1 ([facility]) IIV3. This is one of two codes replacing CVX 15, which is being retired. 03/08/2020 06:06:00 AM EDT completed eCW1 ([facility]) IIV3. This is one of two codes replacing CVX 15, which is being retired. 03/08/2020 06:06:00 AM EDT completed eCW1 ([facility]) IIV3. This is one of two codes replacing CVX 15, which is being retired. 03/08/2020 06:06:00 AM EDT completed eCW1 ([facility]) IIV3. This is one of two codes replacing CVX 15, which is being retired. 03/08/2020 06:06:00 AM EDT completed eCW1 ([facility]) IIV3. This is one of two codes replacing CVX 15, which is being retired. 03/08/2020 06:06:00 AM EDT completed eCW1 ([facility]) IIV3. This is one of two codes replacing CVX 15, which is being retired. 03/08/2020 06:06:00 AM EDT completed eCW1 ([facility]) IIV3. This is one of two codes replacing CVX 15, which is being retired. 03/08/2020 06:06:00 AM EDT completed eCW1 ([facility]) IIV3. This is one of two codes replacing CVX 15, which is being retired. 03/08/2020 06:06:00 AM EDT completed eCW1 ([facility]) IIV3. This is one of two codes replacing CVX 15, which is being retired. 03/08/2020 06:06:00 AM EDT completed eCW1 ([facility]) IIV3. This is one of two codes replacing CVX 15, which is being retired. 03/08/2020 06:06:00 AM EDT completed eCW1 ([facility]) IIV3. This is one of two codes replacing CVX 15, which is being retired. 03/08/2020 06:06:00 AM EDT completed eCW1 ([facility]) IIV3. This is one of two codes replacing CVX 15, which is being retired. 03/08/2020 06:06:00 AM EDT completed eCW1 ([facility]) INFLUENZA VIRUS VACCINE QUADRIVAL SPLIT 2019-21(65 YR UP)/PF 03/08/2020 12:00:00 AM EDT completed [facility] 197 03/08/2020 12:00:00 AM EDT completed <td I D="[id number]">Influenza Quad High Dose IM Pres Free >=65YO</td><td>02/26/2021, 03/08/2020</td><td></td> [facility] Medications Medication Brand Name Start Date Product Form Dose Route Admi nistrative Instructions Pharmacy Instructions Status Indications Reaction Description Data Source(s) Furosemide 20 MG Oral Tablet furosemide (LASIX) tablet 40 mg furosemide (LASIX) tablet 40 mg 04/24/2021 09:00:00 AM EST 40 mg Oral activ e 40 mg, Oral, Daily Standard, First dose on Thu04/24/21 at 0900, For 30 days [facility] Medication administered onsite Hydroxyzine Hydrochloride 25 MG Oral Tablet hydrOXYzin e (ATARAX) tablet 25 mg hydrOXYzine (ATARAX) tablet 25 mg 04/24/2021 03:00:00 AM EST 25 mg Oral completed 25 mg, Oral, Once, On Thu at 0300, For 1 dose [facility] Medication administered onsite Nadolol 20 MG Oral Tablet Nadolol 20 MG Oral Tablet (C orgard) Nadolol 20 MG Oral Tablet (Corgard) 04/24/2021 12:00:00 AM EST 20 mg Oral a ctive Take 1 tablet by mouth nightly [facility] Sucralfate 1000 MG Oral Tablet Sucralfate 1 GM Oral Ta blet (Carafate) Sucralfate 1 GM Oral Tablet (Carafate) 04/24/2021 12:00:00 AM EST 1 g Oral active Take 1 tablet by mouth Four times daily [facility] 20 mg 04/24/2021 12:00:00 AM EST tablet 30 TAKE ONE TABLET BY MOUTH EVERY EVENING TAKE ONE TABLET BY MOUTH EVERY EVENING SOLD: 04/24/2021 [facility] 1 gram 04/24/2021 12:00:00 AM EST tablet 120 TAKE ONE TABLET BY MOUTH FOUR TIMES A DAY TAKE ONE TABLET BY MOUTH FOUR TIMES A DAY SOLD: 04/24/2021 [facility] Diphenhydramine Hydrochloride 25 MG Oral Capsule diphenhydrAMINE (BENADRYL) capsule 25 mg diphenhydrAMINE (BENADRYL) capsule 25 mg 04/23/2021 10 :24:56 PM EST 25 mg Oral active 25 mg, O ral, Every 6 hours PRN, Itching, Starting on Thu04/23/21 at 2224, For 30 days [facility] Medication administered onsite pantoprazole 40 MG Delayed Release Oral Tablet pantoprazole (PROTONIX) EC tablet 40 mg pantoprazole (PROTONIX) EC tablet 40 mg 04/23/2021 10:00:[address] 40 mg Oral active 40 mg, Ora l, Nightly, First dose on Thu04/23/21 at 2200, For 30 days
Do not crush or chew
[facility] Medication administered onsite Spironolactone 25 MG Oral Tablet spironolactone (ALDAC TONE) tablet 25 mg spironolactone (ALDACTONE) tablet 25 mg 04/23/2021 09:00:00 PM EST 25 mg Oral active 25 mg, Oral, 2 Times Daily, First dose on Thu04/23/21 at 2100, For 30 days [facility] Medication administered onsite insulin lispro (HumaLOG) injection LOW DOSE EATING INS ULIN patients 1-8 Units 06234-161-89 04/23/2021 06:00:00 PM EST U Subcutaneous active 1-8 Units, Subcutaneous, Three Times Daily-With Meals, First dose on Thu04/23/21 at 1800, For 30 days
Nursing MUST open the 'SQ Insulin Dosing Charts' Sidebar Report, or, the Patient Summary or Summary Report within the ED.
[facility] Medication administered onsite sodium chloride (preservative free) 0.9 % flush 3 mL 04/23/2021 05:00:00 PM EST 3 mL Intravenous active [Ord er 1 Start] Name: Peripheral IV Signed Summary: Routine, CONTINUOUS, Starting on Thu04/23/21 at 1022, Until Katie 05/23/21, For 30 days
Pre-op [Order 1 End] [Order 2 Start] Name: sodium chloride (preservative free) 0.9 % flush 3 mL Signed Summary: 3 mL, Intravenous, Every 8 hours Standard (3 times per day), First dose on Thu04/23/21 at 1700, For 30 days, Pre-op
Saline Lock. Flush Q8H and after each use to Saline Lock.
[Order 2 End] [Order 3 Start] Name: sodium chloride (preservative free) 0.9 % flush 3 mL Signed Summary: 3 mL, Intravenous, PRN, Line Care, Starting on Thu04/23/21 at 1021, For 30 days, Pre-op
Saline Lock. Flush Q8H and after each use to Saline Lock.
[Order 3 End] [Order 4 Start] Name: Saline Lock order Signed Summary: Routine, ONCE, On Thu04/23/21 at 1022, For 1 occurrence
Pre-op [Order 4 End] [facility] Medication administered onsite Glucose 0.417 MG/MG Oral Gel glucose (GLUTOSE) 40 % or al gel 15 g glucose (GLUTOSE) 40 % oral gel 15 g 04/23/2021 04:52:45 PM EST 15 g Oral active 15 g, Oral, PRN, Low blood s ugar, for gluose 55-69 mg/dl and able to take PO, Starting on Thu04/23/21 at 1652, For 30 days [facility] Medication administered onsite Glucagon 1 MG Injection glucagon (human recombinant) ( GLUCAGEN) injection 1 mg glucagon (human recombinant) (GLUCAGEN) injection 1 mg 04/23/2021 04:52:45 PM EST 1 mg Intramuscular active 1 mg, Intramuscular, PRN, for glucose <55 without IV access, Starting on Thu04/23/21 at 1652, For 30 days [facility] Medication administered onsite dextrose 50 % IV solution 25 mL [id number] 04/23/2021 04:52:[address] 25 mL Intravenous active 25 mL, Intrav enous, PRN, Other, blood glucose <55, Starting on Thu04/23/21 at 1652, For 30 days
Not for midline administration.
[facility] Medication administered onsite Sodium Tetradecyl Sulfate 30 MG/ML Injec table Solution sodium tetradecyl sulfate (SOTRADECOL) 3 % injection sodium tetradecyl sulfate (SOTRADECOL) 3 % injection 04/23/2021 03:13:38 PM EST completed Once PRN, Starting on Thu04/23/21 at 1513 [facility] Medication administered onsite 2 ML Midazolam 1 MG/ML Injection midazolam (PF) (VERSE D) injection midazolam (PF) (VERSED) injection 04/23/2021 03:01:37 PM EST completed Once PRN, Starting on Thu04/23/21 at 1501 [facility] Medication administered onsite fentaNYL (SUBLIMAZE) (PF) injection [id number] 04/23/2021 03:01:18 PM EST completed Once PRN, Starting on Thu04/23/21 at 1501 [facility] Medication administered onsite Glucagon 1 MG Injection glucagon (human recombinant) ( GLUCAGEN) injection 1 mg glucagon (human recombinant) (GLUCAGEN) injection 1 mg 04/23/2021 12:31:03 PM EST 1 mg Intramuscular active 1 mg, Intramuscular, PRN, for glucose <55 without IV access, Starting on Thu04/23/21 at 1231, For 30 days [facility] Medication administered onsite dextrose 50 % IV solution 25 mL [id number] 04/23/2021 12:31:[address] 25 mL Intravenous active 25 mL, Intrav enous, PRN, Other, blood glucose <55, Starting on Thu04/23/21 at 1231, For 30 days
Not for midline administration.
[facility] Medication administered onsite Cefazolin 2000 MG Injection ceFAZolin (ANCEF) IVPB 2 g in dextrose (premix) ceFAZolin (ANCEF) IVPB 2 g in dextrose (premix) 04/23/2021 10:30:00 AM EST 2 g Intravenous completed 2 g, Int ravenous, Administer over 30 Minutes, Once, On Thu04/23/21 at 1030, For 1 dose, Pre-op [facility] Medication administered onsite montelukast 10 MG Oral Tablet MONTELUKAST SODIUM 04/12/2021 12:0 0:00 AM EST tablet 30 TAKE ONE TABLET BY MOUTH EVERY E VENING TAKE ONE TABLET BY MOUTH EVERY EVENING SOLD: 04/12/2021 [facility] montelukast 10 MG Oral Tablet Montelukast Sodium 10 MG Oral Tablet (Singulair) Montelukast Sodium 10 MG Oral Tablet (Singulair) 04/12/2021 12:00:00 AM EST 10 mg Oral active Take 1 tablet by mouth n [facility] 50 mg 04/03/2021 12:00:00 AM EDT tablet [...] active Abdomina l Binder/Elastic 3XL - eCW1 ([facility]) Abdominal Binder/Elastic 3XL - Abdominal Binder/Elastic 3XL - 03/05/2021 12:00:00 AM EDT active Abdomina l Binder/Elastic 3XL - eCW1 ([facility]) Abdominal Binder/Elastic 3XL - Abdominal Binder/Elastic 3XL - 03/05/2021 12:00:00 AM EDT active Abdomina l Binder/Elastic 3XL - eCW1 ([facility]) Abdominal Binder/Elastic 3XL - Abdominal Binder/Elastic 3XL - 03/05/2021 12:00:00 AM EDT active Abdomina l Binder/Elastic 3XL - eCW1 ([facility]) Abdominal Binder/Elastic 3XL - Abdominal Binder/Elastic 3XL - 03/05/2021 12:00:00 AM EDT active Abdomina l Binder/Elastic 3XL - eCW1 ([facility]) Abdominal Binder/Elastic 3XL - Abdominal Binder/Elastic 3XL - 03/05/2021 12:00:00 AM EDT active Abdomina l Binder/Elastic 3XL - eCW1 ([facility]) 4 mg 02/28/2021 12:00:00 AM EDT tablets,dose [...] A S NEEDED FOR ITCHING SOLD: 02/13/2021 [facility] HydrOXYzine HCl 10 MG HydrOXYzine HCl 01/08/2021 01:00:00 AM EDT completed [facility]SM[facility] ([facility]) Hydroxyzine Hydrochloride 10 MG Oral Tablet hydrOXYzin e HCl 10 MG hydrOXYzine HCl 10 MG 01/08/2021 12:00:00 AM EDT 1.0 {tablet} ac tive hydrOXYzine HCl 10 MG eCW1 ([facility]) Hydroxyzine Hydrochloride 10 MG Oral Tablet hydrOXYzin e HCl 10 MG hydrOXYzine HCl 10 MG 01/08/2021 12:00:00 AM EDT 1.0 {tablet} ac tive hydrOXYzine HCl 10 MG eCW1 ([facility]) Hydroxyzine Hydrochloride 10 MG Oral Tablet hydrOXYzin e HCl 10 MG hydrOXYzine HCl 10 MG 01/08/2021 12:00:00 AM EDT 1.0 {tablet} ac tive hydrOXYzine HCl 10 MG eCW1 ([facility]) Hydroxyzine Hydrochloride 10 MG Oral Tablet hydrOXYzin e HCl 10 MG hydrOXYzine HCl 10 MG 01/08/2021 12:00:00 AM EDT 1.0 {tablet} ac tive hydrOXYzine HCl 10 MG eCW1 ([facility]) Hydroxyzine Hydrochloride 10 MG Oral Tablet hydrOXYzin e HCl 10 MG hydrOXYzine HCl 10 MG 01/08/2021 12:00:00 AM EDT 1.0 {tablet} ac tive hydrOXYzine HCl 10 MG eCW1 ([facility]) Hydroxyzine Hydrochloride 10 MG Oral Tablet hydrOXYzin e HCl 10 MG hydrOXYzine HCl 10 MG 01/08/2021 12:00:00 AM EDT 1.0 {tablet} ac tive hydrOXYzine HCl 10 MG eCW1 ([facility]) Hydroxyzine Hydrochloride 10 MG Oral Tablet hydrOXYzin e HCl 10 MG hydrOXYzine HCl 10 MG 01/08/2021 12:00:00 AM EDT 1.0 {tablet} ac tive hydrOXYzine HCl 10 MG eCW1 ([facility]) Hydroxyzine Hydrochloride 10 MG Oral Tablet hydrOXYzin e HCl 10 MG hydrOXYzine HCl 10 MG 01/08/2021 12:00:00 AM EDT 1.0 {tablet} ac tive hydrOXYzine HCl 10 MG eCW1 ([facility]) Hydroxyzine Hydrochloride 10 MG Oral Tablet hydrOXYzin e HCl 10 MG hydrOXYzine HCl 10 MG 01/08/2021 12:00:00 AM EDT 1.0 {tablet} ac tive hydrOXYzine HCl 10 MG eCW1 ([facility]) Hydroxyzine Hydrochloride 10 MG Oral Tablet hydrOXYzin e HCl 10 MG hydrOXYzine HCl 10 MG 01/08/2021 12:00:00 AM EDT 1.0 {tablet} ac tive hydrOXYzine HCl 10 MG eCW1 ([facility]) Hydroxyzine Hydrochloride 10 MG Oral Tablet hydrOXYzin e HCl 10 MG hydrOXYzine HCl 10 MG 01/08/2021 12:00:00 AM EDT 1.0 {tablet} ac tive hydrOXYzine HCl 10 MG eCW1 ([facility]) Hydroxyzine Hydrochloride 10 MG Oral Tablet hydrOXYzin e HCl 10 MG hydrOXYzine HCl 10 MG 01/08/2021 12:00:00 AM EDT 1.0 {tablet} ac tive hydrOXYzine HCl 10 MG eCW1 ([facility]) Hydroxyzine Hydrochloride 10 MG Oral Tablet hydrOXYzin e HCl 10 MG hydrOXYzine HCl 10 MG 01/08/2021 12:00:00 AM EDT 1.0 {tablet} ac tive hydrOXYzine HCl 10 MG eCW1 ([facility]) Hydroxyzine Hydrochloride 10 MG Oral Tablet hydrOXYzin e HCl 10 MG hydrOXYzine HCl 10 MG 01/08/2021 12:00:00 AM EDT 1.0 {tablet} ac tive hydrOXYzine HCl 10 MG eCW1 ([facility]) Hydroxyzine Hydrochloride 10 MG Oral Tablet hydrOXYzin e HCl 10 MG hydrOXYzine HCl 10 MG 01/08/2021 12:00:00 AM EDT 1.0 {tablet} ac tive hydrOXYzine HCl 10 MG eCW1 ([facility]) Losartan Potassium 100 MG Losartan Potassium 01/07/2021 01:00:00 AM EDT completed [facility] ([facility]) Spironolactone 25 MG Spironolactone 01/07/2021 01:00:00 AM EDT completed [facility] ([facility]) 20 mg 01/02/2021 12:00:00 AM EDT tablet [...] {tablet} active Spironolact one 25 MG eCW1 ([facility]) Spironolactone 25 MG Oral Tablet Spironolactone 25 MG 2020 12:00:00 AM EDT 1.0 {tablet} active Spironolact one 25 MG eCW1 ([facility]) Losartan Potassium 50 MG Oral Tablet Losartan Potassium 50 M G 01/01/2021 12:00:00 AM EDT active Losartan Potassium 50 MG eCW1 ([facility]) Spironolactone 25 MG Oral Tablet Spironolactone 25 MG 2020 12:00:00 AM EDT 1.0 {tablet} active Spironolact one 25 MG eCW1 ([facility]) Spironolactone 25 MG Oral Tablet Spironolactone 25 MG 2020 12:00:00 AM EDT 1.0 {tablet} active Spironolact one 25 MG eCW1 ([facility]) Losartan Potassium 100 MG Oral Tablet Losartan Potassium 100 MG 01/01/2021 12:00:00 AM EDT 1.0 {tablet} active Lo sartan Potassium 100 MG eCW1 ([facility]) Losartan Potassium 100 MG Oral Tablet Losartan Potassium 100 MG 01/01/2021 12:00:00 AM EDT 1.0 {tablet} active Lo sartan Potassium 100 MG eCW1 ([facility]) Spironolactone 25 MG Oral Tablet Spironolactone 25 MG 2020 12:00:00 AM EDT 1.0 {tablet} active Spironolact one 25 MG eCW1 ([facility]) Spironolactone 25 MG Oral Tablet Spironolactone 25 MG 2020 12:00:00 AM EDT 1.0 {tablet} active Spironolact one 25 MG eCW1 ([facility]) Spironolactone 25 MG Oral Tablet Spironolactone 25 MG 2020 12:00:00 AM EDT 1.0 {tablet} active Spironolact one 25 MG eCW1 ([facility]) Losartan Potassium 100 MG Oral Tablet Losartan Potassium 100 MG 01/01/2021 12:00:00 AM EDT 1.0 {tablet} active Lo sartan Potassium 100 MG eCW1 ([facility]) Losartan Potassium 100 MG Oral Tablet Losartan Potassium 100 MG 01/01/2021 12:00:00 AM EDT 1.0 {tablet} active Lo sartan Potassium 100 MG eCW1 ([facility]) Losartan Potassium 100 MG Oral Tablet Losartan Potassium 100 MG 01/01/2021 12:00:00 AM EDT 1.0 {tablet} active Lo sartan Potassium 100 MG eCW1 ([facility]) Losartan Potassium 100 MG Oral Tablet Losartan Potassium 100 MG 01/01/2021 12:00:00 AM EDT 1.0 {tablet} active Lo sartan Potassium 100 MG eCW1 ([facility]) Losartan Potassium 100 MG Oral Tablet Losartan Potassium 100 MG 01/01/2021 12:00:00 AM EDT 1.0 {tablet} active Lo sartan Potassium 100 MG eCW1 ([facility]) Losartan Potassium 100 MG Oral Tablet Losartan Potassium 100 MG 01/01/2021 12:00:00 AM EDT 1.0 {tablet} active Lo sartan Potassium 100 MG eCW1 ([facility]) Spironolactone 25 MG Oral Tablet Spironolactone 25 MG 2020 12:00:00 AM EDT 1.0 {tablet} active Spironolact one 25 MG eCW1 ([facility]) Losartan Potassium 100 MG Oral Tablet Losartan Potassium 100 MG 01/01/2021 12:00:00 AM EDT 1.0 {tablet} active Lo sartan Potassium 100 MG eCW1 ([facility]) Losartan Potassium 100 MG Oral Tablet Losartan Potassium 100 MG 01/01/2021 12:00:00 AM EDT 1.0 {tablet} active Lo sartan Potassium 100 MG eCW1 ([facility]) Spironolactone 25 MG Oral Tablet Spironolactone 25 MG 2020 12:00:00 AM EDT 1.0 {tablet} active Spironolact one 25 MG eCW1 ([facility]) Spironolactone 25 MG Oral Tablet Spironolactone 25 MG 2020 12:00:00 AM EDT 1.0 {tablet} active Spironolact one 25 MG eCW1 ([facility]) Losartan Potassium 100 MG Oral Tablet Losartan Potassium 100 MG 01/01/2021 12:00:00 AM EDT 1.0 {tablet} active Lo sartan Potassium 100 MG eCW1 ([facility]) Losartan Potassium 100 MG Oral Tablet Losartan Potassium 100 MG 01/01/2021 12:00:00 AM EDT 1.0 {tablet} active Lo sartan Potassium 100 MG eCW1 ([facility]) Losartan Potassium 100 MG Oral Tablet Losartan Potassium 100 MG 01/01/2021 12:00:00 AM EDT 1.0 {tablet} active Lo sartan Potassium 100 MG eCW1 ([facility]) Spironolactone 25 MG Oral Tablet Spironolactone 25 MG 2020 12:00:00 AM EDT 1.0 {tablet} active Spironolact one 25 MG eCW1 ([facility]) Losartan Potassium 100 MG Oral Tablet Losartan Potassium 100 MG 01/01/2021 12:00:00 AM EDT 1.0 {tablet} active Lo sartan Potassium 100 MG eCW1 ([facility]) Spironolactone 25 MG Oral Tablet Spironolactone 25 MG 2020 12:00:00 AM EDT 1.0 {tablet} active Spironolact one 25 MG eCW1 ([facility]) Spironolactone 25 MG Oral Tablet Spironolactone 25 MG 2020 12:00:00 AM EDT 1.0 {tablet} active Spironolact one 25 MG eCW1 ([facility]) Spironolactone 25 MG Oral Tablet Spironolactone 25 MG 2020 12:00:00 AM EDT 1.0 {tablet} active Spironolact one 25 MG eCW1 ([facility]) Spironolactone 25 MG Oral Tablet Spironolactone 25 MG 2020 12:00:00 AM EDT 1.0 {tablet} active Spironolact one 25 MG eCW1 ([facility]) Colace 100 MG Colace 12/31/2020 01:00:00 AM EDT co mpleted [facility] Potassium Chloride Potassium Chloride 12/31/2020 01:00:00 AM EDT 15.0 {mEq} completed [facility] ([facility]) 15 mEq 12/25/2020 12:00:00 AM EDT tablet,ER particles/cry stals 10 TAKE ONE TABLET BY MOUTH EVERY DAY DIRECTED TAKE ONE TABLET BY MOUTH EVERY DAY DIRECTED SOLD: 12/25/2020 [facility] Lasix 20 MG Lasix 12/24/2020 01:00:00 AM EDT compl eted [facility] Furosemide 20 MG Oral Tablet [Lasix] Lasix 20 MG Lasix 20 MG 12/24/2020 12:00:00 AM EDT 1.0 {tablet} active Lasix 20 M G eCW1 ([facility]) Furosemide 40 MG Oral Tablet [Lasix] Lasix 40 MG Lasix 40 MG 12/24/2020 12:00:00 AM EDT 1.0 {tablet} active Lasix 40 M G eCW1 ([facility]) Furosemide 40 MG Oral Tablet [Lasix] Lasix 40 MG Lasix 40 MG 12/24/2020 12:00:00 AM EDT 1.0 {tablet} active Lasix 40 M G eCW1 ([facility]) Furosemide 20 MG Oral Tablet [Lasix] Lasix 20 MG Lasix 20 MG 12/24/2020 12:00:00 AM EDT 1.0 {tablet} active Lasix 20 M G eCW1 ([facility]) Furosemide 20 MG Oral Tablet [Lasix] Lasix 20 MG Lasix 20 MG 12/24/2020 12:00:00 AM EDT 1.0 {tablet} active Lasix 20 M G eCW1 ([facility]) Furosemide 20 MG Oral Tablet [Lasix] Lasix 20 MG Lasix 20 MG 12/24/2020 12:00:00 AM EDT 1.0 {tablet} active Lasix 20 M G eCW1 ([facility]) Furosemide 20 MG Oral Tablet [Lasix] Lasix 20 MG Lasix 20 MG 12/24/2020 12:00:00 AM EDT 1.0 {tablet} active Lasix 20 M G eCW1 ([facility]) Furosemide 40 MG Oral Tablet [Lasix] Lasix 40 MG Lasix 40 MG 12/24/2020 12:00:00 AM EDT 1.0 {tablet} active Lasix 40 M G eCW1 ([facility]) Furosemide 20 MG Oral Tablet [Lasix] Lasix 20 MG Lasix 20 MG 12/24/2020 12:00:00 AM EDT 1.0 {tablet} active Lasix 20 M G eCW1 ([facility]) Furosemide 20 MG Oral Tablet [Lasix] Lasix 20 MG Lasix 20 MG 12/24/2020 12:00:00 AM EDT 1.0 {tablet} active Lasix 20 M G eCW1 ([facility]) Furosemide 40 MG Oral Tablet [Lasix] Lasix 40 MG Lasix 40 MG 12/24/2020 12:00:00 AM EDT 1.0 {tablet} active Lasix 40 M G eCW1 ([facility]) Potassium Chloride CR 15 MEQ UNK 12/24/2020 12:00:00 AM EDT active Potassium Chloride CR 15 MEQ eCW1 ([facility]) Furosemide 20 MG Oral Tablet [Lasix] Lasix 20 MG Lasix 20 MG 12/24/2020 12:00:00 AM EDT 1.0 {tablet} active Lasix 20 M G eCW1 ([facility]) Furosemide 40 MG Oral Tablet [Lasix] Lasix 40 MG Lasix 40 MG 12/24/2020 12:00:00 AM EDT 1.0 {tablet} active Lasix 40 M G eCW1 ([facility]) Potassium Chloride CR 15 MEQ UNK 12/24/2020 12:00:00 AM EDT active Potassium Chloride CR 15 MEQ eCW1 ([facility]) Furosemide 20 MG Oral Tablet [Lasix] Lasix 20 MG Lasix 20 MG 12/24/2020 12:00:00 AM EDT 1.0 {tablet} active Lasix 20 M G eCW1 ([facility]) Furosemide 20 MG Oral Tablet [Lasix] Lasix 20 MG Lasix 20 MG 12/24/2020 12:00:00 AM EDT 1.0 {tablet} active Lasix 20 M G eCW1 ([facility]) Furosemide 20 MG Oral Tablet [Lasix] Lasix 20 MG Lasix 20 MG 12/24/2020 12:00:00 AM EDT 1.0 {tablet} active Lasix 20 M G eCW1 ([facility]) Furosemide 40 MG Oral Tablet [Lasix] Lasix 40 MG Lasix 40 MG 12/24/2020 12:00:00 AM EDT 1.0 {tablet} active Lasix 40 M G eCW1 ([facility]) 20 mg 12/24/2020 12:00:00 AM EDT tablet [...] 12:00:00 AM EDT ORAL completed [facility] ([facility] Melatonin 10 MG Melatonin 11/30/2020 01:00:00 AM EDT completed [facility] ([facility]) Ferrous Sulfate 325 (65 Fe) MG Ferrous Sulfate 11/30/2020 01:00:00 AM EDT completed [facility] ([facility]) Lidocaine Pain Relieving 4 % Lidocaine Pain Relieving 2020 01:00:00 AM EDT completed [facility] ([facility]) MetFORMIN HCl ER (MOD) 500 MG MetFORMIN HCl ER (MOD) 11/30/2020 01:00:00 AM EDT 2.0 {tablet} completed N [facility]TS[facility] ([facility]) Lidocaine 0.05 MG/MG Topical Ointment LIDOCAINE 11/29/2020 12:00:00 AM EDT ointment 35 APPLY TO AFFECTED KNEE THREE TRLEL ES A DAY NEEDED FOR PAIN APPLY [...] AM E DT 1.0 {tablet} completed [facility] ([facility]) Ferrous Sulfate 324 MG Ferrous Sulfate 11/24/2020 01:00:00 AM EDT 1.0 {tablet} completed [facility] ([facility]) FreeStyle Bison Lite w/Device FreeStyle Bison Lite 11/24 01:00:00 AM EDT completed [facility] [...] 01:00:00 AM EDT 1.0 {tablet} completed [facility] ([facility]) Tylenol Extra Strength 500 MG Tylenol Extra Strength 11/24/2020 01:00:00 AM EDT 0 {tablet} completed [facility] ([facility]) Tylenol PM Tylenol PM 11/24/2020 01:00:00 AM EDT 1.0 {tablet} completed [facility] ([facility]) Ciprofloxacin 750 MG Oral Tablet Ciprofloxacin HCl 750 MG Ciprofloxacin HCl 750 MG 11/22/2020 12:00:00 AM EDT 1.0 {tablet} activ e Ciprofloxacin HCl 750 MG eCW1 ([facility]) 750 mg 11/22/2020 12:00:00 AM EDT tablet 20 TAKE ONE TABLET BY MOUTH EVERY 12 HOURS TAKE ONE TABLET BY MOUTH EVERY 12 HOURS SOLD: 11/22/2020 [facility] BLOOD-GLUCOSE METER 2020 12:00:00 AM EDT kit [...] WATER TWICE A DAY SOLD: 07/24/2020 [facility] Water 1000 MG/ML Irrigation Solution Sterile Water Irrigatio n Plastic Bottle 07/20/2020 12:00:00 AM EST completed [facility] ([facility] 250 mg 06/04/2020 12:00:00 AM EST tablet 14 TAKE ONE TABLET BY MOUTH TWICE A DAY FOR 7 DAYS TAKE ONE TABLET BY MOUTH TWICE A DAY FOR 7 DAYS SOLD: 06/04/2020 [facility] Ciprofloxacin 250 MG Oral Tablet [Cipro] Cipro 06/04/2020 12:00: 00 AM EST ORAL completed [facility] ([facility] 24 HR Metformin hydrochloride 500 MG Extended [...] A DAY WITH EVENING MEAL SOLD: 05/21/2020 [facility] 500 mg 05/19/2020 12:00:00 AM EST tablet extended release 24 hr 180 TAKE 2 TABLETS BY MOUTH ONCE A DAY WITH EVENING MEAL TAKE 2 TABLETS BY MOUTH ONCE A DAY WITH EVENING MEAL SOLD: 08/19/2020 [facility] Hydrochlorothiazide 12.5 MG / Losartan Potassium [...] TABLET BY MOUTH EVERY DAY SOLD: 05/21/2020 [facility] Sulfamethoxazole 800 MG / Trimethoprim 160 MG Oral Tab let 800-160 mg SULFAMETHOXAZOLE/TRIMETHOPRIM 03/20/2020 12:00:00 AM EDT tablet 14 TAKE ONE TABLET BY MOUTH TWICE A DAY FOR 7 DAYS TAKE ONE TABLET BY MOUTH TWICE A DAY FOR 7 DAYS SOLD: 03/20/2020 [facility] Sulfamethoxazole 800 MG / Trimethoprim 160 MG Oral Tablet [B actrim] Bactrim DS 03/20/2020 12:00:00 AM EDT ORAL completed [facility] ([facility]) Ciprofloxacin 250 MG Oral Tablet Ciprofloxacin HCL 02/24/2020 12:00 :00 AM EDT ORAL completed [facility] ([facility] NITROFURANTOIN, MACROCRYSTALS 25 MG / Ni trofurantoin, Monohydrate 75 MG Oral Capsule Nitrofurantoin Monohyd Macro 02/23/2020 12:00:00 AM EDT ORAL completed [facility] ([facility]) 100 mg 06/24/2019 12:00:00 AM EST tablet [...] party ID Covered constitution party's relationship to chand Policy Chnad Plan Information Medicare Medicare Primary [id number] Self [id number] Medicare Medicare Primary [id number] Self [id number] Medicare Medicare Primary [id number] Self [id number] Medicare Medicare Primary [id number] Self [id number] Medicare Medicare Primary [id number] Self MEDICARE [id number] xxxxxxxxxxx [id number] Medicare Medicare Primary [id number] Self [id number] MEDICARE A [id number] Self [id number] Medicare Medicare Primary [id number] Self [id number] MEDICARE [id number] Janna [id number] U75 [id number] A Medicare Medicare Primary [id number] Self [id number] Medicare Medicare Primary [id number] Self [id number] BCBS EMPIRE ARASH DIV [id number] SP [id number] [facility] [id number] SP [id number] EXCELLUS BCBS [id number] Janna YLS [id number] EXCELLUS BCBS [id number] xxxxxxxxxxxx [id number] INSURANCE COVID-19 COVID Janna C OVID INSURANCE COVID-19 [id number] [id number] EMPIRE PLAN [facility] U [id number] Self [id number] ANSI-Commercial [id number] ANSI-Medicare Part B [id number] [facility] Medigap Part B [id number] Self [id number] [facility] Savage Medigap Part B [id number] Self Medicare [facility] Medicare Primary [id number] Self [employer] [facility] Medigap Part B [id number] Self EMPIRE BLUE CROSS BLUE SHIELD -O/P [id number] 18 [id number] MEDICARE -O/P [id number] 18 [id number] EMPIRE BLUE CROSS BLUE SHIELD -O/P [id number] 18 [id number] MEDICARE -O/P [id number] 18 [id number] [facility] [id number] SP [id number] BCBS EMPIRE ARASH DIV [id number] SP [id number] MEDICARE [id number] SP [id number] EXCELLUS BLUE CROSS BLUE SHIELD HEA [id number] S [id number] MEDICARE MCA [id number] S [id number] MEDICARE MCA [id number] S [id number] GU75 [facility] [id number] SP [id number] BCBS EMPIRE ARASH DIV [id number] Savage Plan Medigap Part B [id number] Self [id number] ANSI-Commercial [id number] ANSI-Medicare Part B [id number] ANSI-Medicare Part B [id number] ANSI-Commercial [id number] ANSI-Commercial [id number] ANSI-Medicare Part B [id number] MEDICARE [id number] SP [id number] A ANSI-Medicare Part B [id number] ANSI-Commercial [id number] ANSI-Medicare Part B [id number] ANSI-Commercial [id number] Problems, Conditions, and Diagnoses Code Display Name Description Problem Type Effective Dates Data Source(s) T81.89XA Other complications of proce dures, not elsewhere classified, initial encounter Other complications of procedures, not e lsewhere classified, initial encounter Diagnosis 04/23/2021 12:00:[address] [facility] fol fol Diagnosis 04/18/2021 12:15:26 PM [facility] C22.0 Liver cell carcinoma Liver cell carcinoma Diagnosis 04/09/2021 12:00:00 AM [facility] new pt new pt Diagnosis 03/04/2021 12:00:00 AM [facility] N21.0 Calculus in bladder Calculus in bladder Diagnosis 1 08:25:00 AM EDT [facility] N32.81 Overactive bladder Overactive bladder Diagnosis 07/2019 08:25:00 AM EDT [facility] C22.0 Primary malignant neoplasm of liver Primary valeri gnant neoplasm of liver Problem 03/20/2021 12:00:00 AM EDT [facility] ([facility]) K92.2 Gastrointestinal hemorrhage Gastrointestinal hemorrhag e Problem 03/20/2021 12:00:00 AM EDT [facility] ([facility]) 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 Problem 03/05/20 12:00:00 AM EDT eCW1 ([facility]) C22.0 [id number] Hepatocellular carcinoma Problem 02/15/2021 12:00:00 AM EDT eCW1 ([facility]) R16.0 [id number] Liver mass, right lobe Problem 01/17/2021 12 :00:00 AM EDT eCW1 ([facility]) R18.8 [id number] Other ascites Problem 01/17/2021 12:00:00 AM EDT eCW1 ([facility]) K76.0 [id number] Fatty liver Problem 01/01/2021 12:00:00 AM E DT eCW1 ([facility]) D64.9 [id number] Chronic anemia Problem 11/28/2020 12:00:00 A M EDT eCW1 ([facility]) C61 Malignant neoplasm of prostate Malignant neoplasm of p rostate Problem 11/24/2020 01:00:00 AM EDT [facility] ([facility] ) 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 Malignant neoplasm of ur ethra Problem 11/24/2020 01:00:00 AM EDT [facility] ([facility] ) E11.9 Type 2 diabetes mellitus without complic ations Type 2 diabetes mellitus without complications Problem 11/24/2020 01:00:00 AM EDT [facility] ([facility]) I10 Essential (primary) hypertension Essential (primary) [...] [facility]SM[facility] ([facility] ) Z79.84 prison (current) use of oral hypoglyc emic drugs prison (current) use of oral hypoglycemic drugs Problem 11/24/2020 01:00:00 AM EDT NE TSMART ([facility]) Z90.89 Acquired absence of other organs Acquired absenc e of other organs Problem 11/24/2020 01:00:00 AM EDT [facility] ([facility]) Z90.79 Acquired absence of other genital organ( s) Acquired absence of other genital organ(s) Problem 11/24/2020 01:00:00 AM EDT [facility] ([facility]) Z90.6 Acquired absence of other parts of urina ry tract Acquired absence of other parts of urinary tract Problem 11/24/2020 01:00:00 AM EDT [facility] ([facility]) 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 Problem 11/24/2020 01:00:00 AM EDT [facility] ([facility]) 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 Prob donita 04/20/2020 12:00:00 AM EST [facility] ([facility] N32.81 Overactive bladder Overactive bladder Problem 0 12:00:00 AM EDT [facility] ([facility]) Surgeries/Procedures Procedure Description Date Indications Data Source(s) POCT GLUCOSE, DOCKED <td>POCT GLUCOSE, DOCKED</td ><td>Routine</td><td>04/24/2021 12:20 PM EST</td><td></td><td> </td> 04/24/2021 12:20:00 PM [facility] BLOOD COUNT COMPLETE AUTO&AUTO DIFRNTL WBC COUNT <td>C BC AND DIFFERENTIAL</td><td>Routine</td><td>04/24/2021 9:31 AM EST</td><td></td><td> </td> 04/24/2021 09:31:00 AM [facility] POCT GLUCOSE, DOCKED <td>POCT GLUCOSE, DOCKED</td ><td>Routine</td><td>04/24/2021 8:25 AM EST</td><td></td><td> </td> 04/24/2021 08:25:00 AM [facility] UPPER GI ENDOSCOPY <td>UPPER GI ENDOSCOPY</td>< td></td><td>04/24/2021 12:00 AM EST</td><td></td><td></td> 04/24/2021 12:00:00 AM [facility] GLUCOSE QUANTITATIVE BLOOD XCPT REAGENT STRIP <td>POCT GLUCOSE, DOCKED</td><td>Routine</td><td>04/23/2021 9:55 PM EST</td><td></td><td> </td> 04/23/2021 09:55:00 PM [facility] GLUCOSE QUANTITATIVE BLOOD XCPT REAGENT STRIP <td>POCT GLUCOSE, DOCKED</td><td>Routine</td><td>04/23/2021 5:28 PM EST</td><td></td><td> </td> 04/23/2021 05:28:00 PM [facility] GLUCOSE QUANTITATIVE BLOOD XCPT REAGENT STRIP <td>POCT GLUCOSE, DOCKED</td><td>Routine</td><td>04/23/2021 4:12 PM EST</td><td></td><td> </td> 04/23/2021 04:12:00 PM [facility] IR VENOGRAM ORGAN <td>IR VENOGRAM ORGAN</td><t d>Routine</td><td>04/23/2021 3:33 PM EST</td><td> Vascular varices of stoma, initial encounter Other complications of procedures, not elsewhere classified, initial enco unter</td><td> </td> 04/23/2021 03:33:00 PM EST Other complications of procedures, not e lsewhere classified, initial encounterVascular varices of stoma, initial encounter [facility] Other complications of procedures, not e lsewhere classified, initial encounter Vascular varices of stoma, initial encou nter GLUCOSE QUANTITATIVE BLOOD XCPT REAGENT STRIP <td>POCT GLUCOSE, DOCKED</td><td>Routine</td><td>04/23/2021 11:24 AM EST</td><td></td><td> </td> 04/23/2021 11:24:00 AM [facility] PROTHROMBIN TIME <td>PROTIME INR</td><td>STAT </td><td>04/23/2021 10:56 AM EST</td><td></td><td> </td> 04/23/2021 10:56:00 AM [facility] BLOOD COUNT COMPLETE AUTO&AUTO DIFRNTL WBC COUNT <td>C BC AND DIFFERENTIAL</td><td>Routine</td><td>04/23/2021 10:56 AM EST</td><td></td><td> </td> 04/23/2021 10:56:00 AM [facility] COMPREHENSIVE METABOLIC PANEL <td>COMPREHENSIVE METABO LIC PANEL</td><td>STAT</td><td>04/23/2021 10:56 AM EST</td><td></td><td> </td> 04/23/2021 10:56:00 AM [facility] POCT ID NOW COVID-19 <td>POCT ID NOW COVID-19</td ><td>Routine</td><td>04/23/2021 10:24 AM EST</td><td></td><td> </td> 04/23/2021 10:24:00 AM EST [facility] THROMBOPLASTIN TIME PARTIAL PLASMA/WHOLE BLOOD <td>PAR TIAL THROMBOPLASTIN TIME (PTT)</td><td>Routine</td><td>04/18/2021 12:01 PM EST</td><td> Hepatocellular carcinoma</td><td> </td> 04/18/2021 12:01:00 PM EST [facility] Hepatocellular carcinoma ALPHA-FETOPROTEIN SERUM <td>AFP TUMOR MARKER</td><td >Routine</td><td>04/18/2021 12:01 PM EST</td><td> Hepatocellular carcinoma</td><td> </td> 04/18/2021 12:01:00 PM EST [facility] Hepatocellular carcinoma PROTHROMBIN TIME <td>PROTIME INR</td><td>Rout ine</td><td>04/18/2021 12:01 PM EST</td><td> Hepatocellular carcinoma</td><td> </td> 04/18/2021 12:01:00 PM EST [facility] Hepatocellular carcinoma BLOOD COUNT COMPLETE AUTO&AUTO DIFRNTL WBC COUNT <td>C BC AND DIFFERENTIAL</td><td>Routine</td><td>04/18/2021 12:01 PM EST</td><td> Hepatocellular carcinoma</td><td> </td> 04/18/2021 12:01:00 PM EST [facility] Hepatocellular carcinoma LACTATE DEHYDROGENASE LDH <td>LACTATE DEHYDROGENASE</td><td>Routine</td><td>04/18/2021 12:01 PM EST</td><td> Hepatocellular carcinoma</td><td> </td> 04/18/2021 12:01:00 PM EST Hepatocellular carcinoma [facility] Hepatocellular carcinoma COMPREHENSIVE METABOLIC PANEL <td>COMPREHENSIVE METABO LIC PANEL</td><td>STAT</td><td>04/18/2021 12:01 PM EST</td><td> Hepatocellular carcinoma</td><td> </td> 04/18/2021 12:01:00 PM EST Hepatocellular carcinoma [facility] Hepatocellular carcinoma OFFICE OUTPATIENT VISIT 15 MINUTES 03/20/2021 12:00:00 AM EDT [facility] ([facility]) HOSPITAL DISCHARGE DAY MANAGEMENT > 30 MIN 03/12/2021 12:00:00 AM EDT [facility] ([facility]) [facility] CARE/DAY 35 MINUTES 03/11/2021 12:00:00 AM EDT [facility] ([facility]) [facility]PITAL CARE/DAY 15 MINUTES 02/18/2021 12:00:00 AM EDT [facility] ([facility]) [facility]PITAL CARE/DAY 25 MINUTES 02/17/2021 12:00:00 AM EDT [facility] ([facility]) Electrocardiogram Interpretation & Report Only 021 12:00:00 AM EDT [facility] ([facility]) OFFICE OUTPATIENT VISIT 15 MINUTES 02/14/2021 12:00:00 AM EDT [facility] ([facility] OFFICE OUTPATIENT VISIT 15 MINUTES 01/22/2021 12:00:00 AM EDT [facility] ([facility]) Electrocardiogram Interpretation & Report Only 021 12:00:00 AM EDT [facility] ([facility]) APPENDECTOMY 11/13/2020 12:00:00 AM EDT M [facility] ([facility]) Cystectomy, And Ileal Loop 11/13/2020 12:00:00 AM EDT [facility] ([facility]) ECG ROUTINE ECG W/LEAST 12 LDS W/I&R 11/07/2020 12:00: 00 AM EDT eCW1 ([facility]) INSJ TEMP NDWELLG BLADDER CATHETER SIMPLE 09/25/2020 1 2:00:00 AM EDT [facility] ([facility]) OFFICE OUTPATIENT VISIT 40 MINUTES 09/10/2020 12:00:00 AM EDT [facility] ([facility]) INSJ TEMP NDWELLG BLADDER CATHETER SIMPLE 08/22/2020 1 2:00:00 AM EDT [facility] ([facility]) CYSTOURETHROSCOPY 08/03/2020 12:00:00 AM EST [facility] ([facility]) OFFICE OUTPATIENT VISIT 10 MINUTES 08/03/2020 12:00:00 AM EST [facility] ([facility]) Sars-Cov-2 (Covid-19) vaccine,Pfizer, LNP-S, PF, 30 mcg/ 0.3 mL 07/29/2020 12:00:00 AM EST [facility]) OFFICE OUTPATIENT VISIT 25 MINUTES 07/20/2020 12:00:00 AM EST [facility] ([facility]) Sars-Cov-2 (Covid-19) vaccine,Pfizer, LNP-S, PF, 30 mcg/ 0.3 mL 07/08/2020 12:00:00 AM EST [facility] ([facility]) INSJ TEMP NDWELLG BLADDER CATHETER SIMPLE 06/21/2020 1 2:00:00 AM EST [facility] ([facility]) US RETROPERITONEAL REAL TIME W/IMAGE LIMITED 0 12:00:00 AM EST [facility] ([facility]) US RETROPERITONEAL REAL TIME W/IMAGE LIMITED 0 12:00:00 AM EST [facility] ([facility]) OFFICE OUTPATIENT VISIT 25 MINUTES 05/30/2020 12:00:00 AM EST [facility] ([facility]) INSJ TEMP NDWELLG BLADDER CATHETER SIMPLE 05/22/2020 1 2:00:00 AM EST [facility] ([facility]) INSJ TEMP NDWELLG BLADDER CATHETER SIMPLE 04/20/2020 1 2:00:00 AM EST [facility] ([facility]) INSJ TEMP NDWELLG BLADDER CATHETER SIMPLE 03/22/2020 1 2:00:00 AM EDT [facility] ([facility]) CARLENE POST-VOIDING RESIDUAL URINE&/BLDR CAP 03/22/2020 12:00:00 AM EDT [facility] ([facility]) CARLENE POST-VOIDING RESIDUAL URINE&/BLDR CAP 03/20/2020 12:00:00 AM EDT [facility] ([facility]) CARLENE POST-VOIDING RESIDUAL URINE&/BLDR CAP 03/16/2020 12:00:00 AM EDT [facility] ([facility]) Cystourethroscopy,/W Injects For [facility] The Geoff dder 03/02/2020 12:00:00 AM EDT [facility] ([facility]) Results ID Date Data Source [id number] 04/24/2021 05:30:[address] [facility] Name Value Range Interpretation Code Description Data Ema rce(s) Supporting Document(s) Progress Note [facility] ZXDSNx2iQyGAGrTi81/KEQcmTDZci3FwHRsxCYw9EYzxXGYwO6FdGDO7vR9lHAD5OAhGFaIyOqPmDBK9 lbm [file] TH9tVQr+Wp4It0VhwlP6hiVlKYv2IOKtIRufCKAIPm3B ID Date Data Source [id number] 04/24/2021 05:14:53 PM EST [facility] Name Value Range Interpretation Code Description Data Ema rce(s) Supporting Document(s) Discharge Summary [facility] WAQNLv2vHpMFHsPr98/XJTdaXEQlb1VmBUfcOLj4MAopRZIdV5NqCVR3dV3tPGV2DOwWBjKoOyGnMXA4 lbm [file] RPQ/ahLeAVVBhCy3S/BOILER COVERER/rXwyPxp1/98Q/97TMoOBev7L1UZ9KsTCt9k0hw/q/bgFbyyaTKULeo9dbK [file] IGrlCSCTYw9G ID Date Data Source [id number] 04/24/2021 05:06:[address] [facility] Name Value Range Interpretation Code Description Data Ema rce(s) Supporting Document(s) Progress Note [facility] ZIZIEk7bAcBZEhLh94/WQXcpITOvj5BgXDndGAn5GLpeWNPrP3UxOXU1yB2tDSL3WViGHfHxOeTsYLW7 lbm [file] ubVWVoNn3YCISYU2KMWu== ID Date Data Source [id number] 04/24/2021 04:51:[address] [facility] IR VENOGRAM ORGANFINAL RESULTInterpreted by:Eulalia Muñiz, LEVI NugentROCEDURE:1. Peristomal varices venogram by direct puncture2. 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 Associate Software Developer ultrasound imaging of the peristomal area showed [...] applied. Patient left the room in stable condition.Findings: Limited ultrasound examination of the peristoma area in the right lower abdomen demonstrated multiple peristomal varices.Impression: Successful image guided sclerotherapy of the peristomal varices with direct puncture, as described above.Plan: Follow up in a month (likely telemedicine).This document has been electronically signed by Eulalia Muñiz MD on 04/24/2021 4:49 PM Name Value Range Interpretation Code Description Data Ema rce(s) Supporting Document(s) ID Date Data Source [id number] 04/24/2021 04:36:[address] [facility] Name Value Range Interpretation Code Description Data [facility] rce(s) Supporting Document(s) Progress Note [facility] HALVHy9kZdZCKlSo80/ZMJljGVIdb2JfXLzlJSp2LDfmKQLiR9KpYGC7cU1xRQD5PKjCKeYvYkHtEAQ9 lbm WzVhtHIxOxQNJpLlzEWfTiVRapFrasgZYbVS8NsHR8VVOuP76aDLOpEBHqY1AyUHTfLIP+Ti2SKGXkgL KeHB5AXrwA3S0ys7dA9DuF/bkHy6y3ZcCbq8/VN/bAmxcDomakKIM6zPRkRudGEniHomifrt2HSvaDaS AmE7f9xbW7usg40YThje4pUIdI6r2+Wm655Cos/M/6 a6wl+3LD/hoKCl0Ywx0w+zpSsOczQ5amrzPgaEi4d+6Q5vqbiFFld2gc2AoqUrQfdO0e3utS/j1f6S3p clZrLVGuBFYnLS6U7iRtKsbW1WeELjqjkZuLXKGKyZL5JoXCBA7BRIfvtCQcfNE8Lqrw0orEQM/Qri1B jGAnWRIwRzpRNNqsCNLE4VtnxIZ0+meLWjudy84GYR YmNXakYW1hJkNOqQREEaRUFuEKlQCmFf/4geIYXuoGKKU9oHdjrZ1Icr3wzbIdANKimE7zIikmJ1/STEPHANIA [file] SW9hSCf+Vj0Oj5UttdI2mpOhLFljGzU9TK5CBUUJN3ROQs== ID Date Data Source [id number] 04/24/2021 02:14:27 PM [facility] Name Value Range Interpretation Code Description Data Ema rce(s) Supporting Document(s) [facility] MVLZAt9qXsHOSdHi23/YVKpeCCNrp8HzQCzbIJy1CXdcIBOwW8PyIMN3mP9kXRA9JPiXSlJaVkCdQGY4 lbm [file] FKlhHBVRGt6B ID Date Data Source [id number] 04/24/2021 12:22:[address] [facility] Name Value Range Interpretation Code Description Data Ema rce(s) Supporting Document(s) Glucose [Mass/volume] in Capillary blood by Glucometer 152 mg/dL 70- 140 H [facility] ID Date Data Source [id number] 04/24/2021 09:57:[address] [facility] Name Value Range Interpretation Code Description Data Ema rce(s) Supporting Document(s) Leukocytes [#/volume] in Blood by Automated count 5.9 10*3/uL 4-10 [facility] Erythrocytes [#/volume] in Blood by Automated count 3.23 10*6/uL 4.6- 6.1 L [facility] Hemoglobin [Mass/volume] in Blood 9.2 g/dL 13.5-18 L [facility] Hematocrit [Volume Fraction] of Blood by Automated count 28.0 % 4 1-53 L [facility] Erythrocyte mean corpuscular volume [Entitic volume] by Auto mated count 86.7 fL 80-96 [facility] Erythrocyte mean corpuscular hemoglobin [Entitic mass] by Automated count 28.5 pg 27-33 [facility] Erythrocyte mean corpuscular hemoglobin concentration [Mass/volume] by Automated count 32.9 g/dL 32.0-36.0 [facility] width [Ratio] by Automated count 17.1 % 11.5-14.5 H [facility] Platelets [#/volume] in Blood by Automated count 141 10*3/uL 150-400 L [facility] Differential cell count method - Blood [facility] Neutrophils/100 leukocytes in Blood by Automated count 78 % [facility] Lymphocytes/100 leukocytes in Blood by Automated count 4 % [facility] Monocytes/100 leukocytes in Blood by Automated count 11 % [facility] Eosinophils/100 leukocytes in Blood by Automated count 6 % [facility] Basophils/100 leukocytes in Blood by Automated count 1 % [facility] Neutrophils [#/volume] in Blood by Automated count 4.57 10*3/uL 1.8-7 .0 [facility] Lymphocytes [#/volume] in Blood by Automated count 0.24 10*3/uL 1.2-4 .0 L [facility] Monocytes [#/volume] in Blood by Automated count 0.64 10*3/uL 0-0.8 [facility] Eosinophils [#/volume] in Blood by Automated count 0.36 10*3/uL 0-0.5 [facility] Basophils [#/volume] in Blood by Automated count 0.05 10*3/uL 0-0.2 [facility] Nucleated erythrocytes/100 leukocytes [Ratio] in Blood by Automated count 0 /100{WBCs} 0-0 [facility] ID Date Data Source [id number] 04/24/2021 09:23:41 AM EST [facility] Name Value Range Interpretation Code Description Data Ema rce(s) Supporting Document(s) History and Physical [facility] QRCHDz6lMvRTMkIb13/YZCxeINUst9YrKUerOMl3FZwsQCPkI0IyXPK1hN3jUBH6OFpZXcLwZiLcBYF8 lbm [file] ID Date Data Source [id number] 04/24/2021 08:27:44 AM [facility] Value Range Interpretation Code Description Data Ema rce(s) Supporting Document(s) Glucose [Mass/volume] in Capillary blood by Glucometer 141 mg/dL 70- 140 H [facility] ID Date Data Source [id number] 04/23/2021 10:00:36 PM [facility] Value Range Interpretation Code Description Data Ema rce(s) Supporting Document(s) Glucose [Mass/volume] in Capillary blood by Glucometer 206 mg/dL 70- 140 [facility] ID Date Data Source [id number] 04/23/2021 09:47:13 PM [facility] Value Range Interpretation Code Description Data Ema rce(s) Supporting Document(s) Progress Note [facility] EQJYPk2oZnAVSzJv41/IRRsiFWLwu4UiJTijCZj0VDniPBLyT3BiOEF9mD2iHDD6AFvYFcKtSwNvXRJf lbm [file] XSANCj4+OCsreWKewVmzTJDAJhpoDOaDTwZnAU5QWKh= ID Date Data Source [id number] 04/23/2021 05:45:[address] 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 Name Value Range Interpretation Code Description Data Ema rce(s) Supporting Document(s) Glucose [Mass/volume] in Capillary blood by Glucometer 130 mg/dL 70- 140 [facility] ID Date Data Source [id number] 04/23/2021 04:13:[address] [facility] Name Value Range Interpretation Code Description Data Ema rce(s) Supporting Document(s) Glucose [Mass/volume] in Capillary blood by Glucometer 126 mg/dL 70- 140 [facility] ID Date Data Source [id number] 04/23/2021 12:50:[address] [facility] Name Value Range Interpretation Code Description Data Ema rce(s) Supporting Document(s) [facility] KLNHUd1eNcLAEvIs49/HLUndAWOcf5EjBHerUMv4ICzpOPVfB4XfNPL2rY7xJWS1IEhZVzVhRkExBTYj [facility] [file] ICAgICAgICAgICAgICAgICAgICAgICAgICAgICAgICAgICAgICAgICAgICAgICAgICAgICAgICAgICAg ICAgDQogICAgICAgICAgICAgICAgICAgICAgICAgIC AgICAgICAgICAgICAgICAgICAgICAgICAgICAgICAgICAgICAgICAgICAgICAgICAgICAgICAgICAgIC AgICAgICAgICAgICAgDQogICAgICAgICAgICAgICAgICAgICAgICAgICAgICAgICAgICAgICAgICAgIC AgICAgICAgICAgICAgICAgICAgICAgICAgICAgICAg ICAgICAgICAgICAgICAgICAgICAgICAgDQogICAgICAgICAgICAgICAgICAgICAgICAgICAgICAgICAg ICAgICAgICAgICAgICAgICAgICAgICAgICAgICAgICAgICAgICAgICAgICAgICAgICAgICAgICAgICAg ICAgICAgDQogICAgICAgICAgICAgICAgICAgICAgIC AgICAgICAgICAgICAgICAgICAgICAgICAgICAgICAgICAgICAgICAgICAgICAgICAgICAgICAgICAgIC AgICAgICAgICAgICAgICAgDQogICAgICAgICAgICAgICAgICAgICAgICAgICAgICAgICAgICAgICAgIC AgICAgICAgICAgICAgICAgICAgICAgICAgICAgICAg ICAgICAgICAgICAgICAgICAgICAgICAgICAgDQogICAgICAgICAgICAgICAgICAgICAgICAgICAgICAg ICAgICAgICAgICAgICAgICAgICAgICAgICAgICAgICAgICAgICAgICAgICAgICAgICAgICAgICAgICAg ICAgICAgICAgDQogICAgICAgICAgICAgICAgICAgIC AgICAgICAgICAgICAgICAgICAgICAgICAgICAgICAgICAgICAgICAgICAgICAgICAgICAgICAgICAgIC AgICAgICAgICAgICAgICAgICAgDQogICAgICAgICAgICAgICAgICAgICAgICAgICAgICAgICAgICAgIC AgICAgICAgICAgICAgICAgICAgICAgICAgICAgICAg ICAgICAgICAgICAgICAgICAgICAgICAgICAgICAgDQogICAgICAgICAgICAgICAgICAgICAgICAgICAg ICAgICAgICAgICAgICAgICAgICAgICAgICAgICAgICAgICAgICAgICAgICAgICAgICAgICAgICAgICAg SXDdQUUeJYOyEELhZXk6W5qpDOUzASMiRL7wHIs4Kg 8+VEiUBoEkIZX8xxEjwI6FEJ1mm5BuZMyjNKYwi1JbMUf1MM2DGKRjMCtsKS4LLDdnvw6EXTSfRFWdcY KAo1ycSiEwCWP8OJEqUtatPQ4KZTIgI8caxuXoHGWfLUAQMT1JEpYdQ6IqcP87TBZLXd0+DQplbmRvYm hDMbK6CMKvb6SkCQy6UM9YVQXaQuyrz4ZhTMIxAPJZ JRjjXP0GYUO4IUO2YXGeFo1PEDVjD845cxNzNY8NHf7NQdJkTV4miv3AKLDeZJXhFlcONjr3LIzlJI8O wGXsHZsPty4sgtQvjlESv6XrwhXofATEUXFrsWztbw5tT48eSAqle8hfPNMUTUVmcUOjVT1uAx4yVDFx REMsIgZgXGLGYT9RDDHkWYVnvAMxPFScUIDSVD7ORO rrBEZ6SACfrkVbaUVcCTrgFX7ZXHAhgmPuZROgJXBMVRt+Vk3LDC3bg1EtCVdsGgJeDB6mek2MUSsPNj JqC0Y8fWQsF7Q2PWcmKa1OVQVlXBTfZRRxTBWGUKmpDU7CDG2ecuA5NZ3ZfYGkOHSfDDDmeLDwXDa4P8 6jqOBaHAqhWS4OWBT+Earl+Og3AGHDgNOKrFKPmGlKf QHIZMrBcF8YmH7FPr1SpE6UyCA38eBxnhpFjNLdxLP8KET3tHOBbBIVOAQ2YbIBjmQ3vjcAcUOTwWNJM DePkU52atYEyFWDsUJDsTLJlYb4RWHJdF3HfiwOulLgucwSeGXJlPCTLAC9XEJfkmyDldVQodHbtMX16 xPopUC3NSf3IUvAwJN2phl8UvFHyMh3VRDRkRq9ZAG WdKTRzGOGxDOC9HDLkWdLiWGaqSMOyBBEcHBT3LGQiLEAnPU4GYzEvEKGgWLJcYaFkCOGdYWUydt8UVN ByPLWcCky3UlZkCTGsHWFaPWdaKBDeTOCwXIX7ZSBpABRvWC2CMgSgICAcYRXwTKJcWMZxMVCsdx8JOB PhPEXvPgOyQxNnOFAhTQMnPTkfYBIpEMJlFdq0TOKh ZSNmWV3BAjCqEJPjJJI9IfGfEAEuALLfsm1ODGXlQSGpTaw0PNZsTSDaAMOmZEbcRMNuCMV5YiS1XCSd ELGbSG1TRoZgJIMgWSW3ZONjLPRdAYTtoj1ULDOqYZZmCJA1CLUzBGFvBTCsEUioEXWiIMM1ZESzFBLt NCXmWH1VObAcDPRvSCU2JAXgDQVeYOTrdy5NOWHqFY QiTeDiKPStQKPoLXItCAwySXZpKWE8VGT2BTWuORGmMP3ACiLuGIdlYFRBTih3YZzfD1i8YLCeZl1RN9 Sqp6ScGKDcMUBFIIbjFI1eigXqPFHpIv9RL3rFRamsJZYdUyF1VNRuBsWxHVXuKNVgCcMwPjY1DTPeYJ M5CF8hAZF7QYHrTUe7LcLaMZKiEPX0COH1YOHxCHLg NCKfGgWrKwUxWE6XUn3PDuM9YRH2qBBkIu6IMtCaFK0RJUZZE7WIMj== ID Date Data Source [id number] 04/23/2021 11:33:[address] [facility] Name Value Range Interpretation Code Description Data Ema rce(s) Supporting Document(s) History and Physical [facility] EAHPJd1hQhZBKqLz42/FWBdtRMBzf3TiFXvrHZo8TWzpUBPzD8RoPHN2lS1eHON4NIiGNbHvFsMkOEUv lbm [file] ROBOTYPE OPERATOR/EDgnsBBxUqg6N9TmiUeJnx6smTUjGsTS8smdR4 [file] GL3lBXKXQx4+NPrakNNorRcvDLQSPkJ2XZNrMMueUCGEBx0P ID Date Data Source [id number] 04/23/2021 11:27:[address] [facility] Name Value Range Interpretation Code Description Data Ema rce(s) Supporting Document(s) Glucose [Mass/volume] in Capillary blood by Glucometer 142 mg/dL 70- 140 H [facility] ID Date Data Source [id number] 04/23/2021 11:14:[address] [facility] Name Value Range Interpretation Code Description Data Ema rce(s) Supporting Document(s) Leukocytes [#/volume] in Blood by Automated count 6.9 10*3/uL 4-10 [facility] Erythrocytes [#/volume] in Blood by Automated count 3.50 10*6/uL 4.6- 6.1 L [facility] Hemoglobin [Mass/volume] in Blood 10.0 g/dL 13.5-18 L [facility] Hematocrit [Volume Fraction] of Blood by Automated count 30.1 % 4 1-53 L [facility] Erythrocyte mean corpuscular volume [Entitic volume] by Auto mated count 85.9 fL 80-96 [facility] Erythrocyte mean corpuscular hemoglobin [Entitic mass] by Automated count 28.6 pg 27-33 [facility] Erythrocyte mean corpuscular hemoglobin concentration [Mass/volume] by Automated count 33.3 g/dL 32.0-36.0 [facility] E[facility]th[facility] distribution width [Ratio] by Automated count 16.9 % 11.5-14.5 H [facility] Platelets [#/volume] in Blood by Automated count 174 10*3/uL 150-400 [facility] Differential cell count method - Blood [facility] Neutrophils/100 leukocytes in Blood by Automated count 77 % [facility] Lymphocytes/100 leukocytes in Blood by Automated count 4 % [facility] Monocytes/100 leukocytes in Blood by Automated count 9 % [facility] Eosinophils/100 leukocytes in Blood by Automated count 9 % [facility] Basophils/100 leukocytes in Blood by Automated count 1 % [facility] Neutrophils [#/volume] in Blood by Automated count 5.29 10*3/uL 1.8-7 .0 [facility] Lymphocytes [#/volume] in Blood by Automated count 0.30 10*3/uL 1.2-4 .0 L [facility] Monocytes [#/volume] in Blood by Automated count 0.61 10*3/uL 0-0.8 [facility] Eosinophils [#/volume] in Blood by Automated count 0.60 10*3/uL 0-0.5 H [facility] Basophils [#/volume] in Blood by Automated count 0.09 10*3/uL 0-0.2 [facility] Nucleated erythrocytes/100 leukocytes [Ratio] in Blood by Automated count 0 /100{WBCs} 0-0 [facility] ID Date Data Source [id number] 04/23/2021 11:23:[address] [facility] Name Value Range Interpretation Code Description Data Ema rce(s) Supporting Document(s) Prothrombin time (PT) 14.4 s 11.6-14.0 H [facility] INR in Platelet poor plasma by Coagulation assay 1.16 [facility] Routine intensity oral anticoagulation I NR is typically 2.0-3.0. Target INR must be clinically individualized. ID Date Data Source [id number] 04/23/2021 11:33:46 AM [facility] Value Range Interpretation Code Description Data Ema rce(s) Supporting Document(s) Albumin [Mass/volume] in Serum or Plasma by Bromocresol green (BCG) dye binding method 3.2 g/dL 3.5-5.2 [facility] Bilirubin.total [Mass/volume] in Serum or Plasma 1.3 mg/dL <1.2 H [facility] Calcium [Mass/volume] in Serum or Plasma 10.5 mg/dL 8.8-10.2 H [facility] Chloride [Moles/volume] in Serum or Plasma 104 mmol/L 98-107 [facility] Creatinine [Mass/volume] in Serum or Plasma 1.24 mg/dL 0.70-1.20 H [facility] Glucose [Mass/volume] in Serum or Plasma 146 mg/dL 70-140 H [facility] Alkaline phosphatase [Enzymatic activity/volume] in Serum or Plasma 200 U/L 40-129 H [facility] Potassium [Moles/volume] in Serum or Plasma 4.4 mmol/L 3.4-5.1 [facility] Protein [Mass/volume] in Serum or Plasma 7.1 g/dL 6.4-8.3 [facility] Sodium [Moles/volume] in Serum or Plasma 132 mmol/L 136-145 L [facility] Aspartate aminotransferase [Enzymatic activity/volume] in Serum or Plasma 124 U/L <40 H [facility] Urea nitrogen [Mass/volume] in Serum or Plasma 35 mg/dL 8-23 H [facility] Osmolality of Serum or Plasma by calculation 285 mosm/kg 275-300 [facility] Creatinine/Urea nitrogen [Mass Ratio] in Serum or Plasma 28 [facility] Bicarbonate [Moles/volume] in Serum 17 mmol/L 22-29 L [facility] Alanine aminotransferase [Enzymatic activity/volume] in Seru m or Plasma 114 U/L <41 H [facility] Anion gap 3 in Serum or Plasma 11 mmol/L 8-15 [facility] Glomerular filtration rate/1.73 sq M pre dicted among non-blacks [Volume Rate/Area] in Serum or Plasma by Creatinine-based formula (MDRD) 54 mL/min/1.73m2 >60 L [facility] Glomerular filtration rate/1.73 sq M pre dicted among blacks [Volume Rate/Area] in Serum or Plasma by Creatinine-based formula (MDRD) 62 mL/min/1.73m2 >60 [facility] ID Date Data Source [id number] 04/23/2021 10:36:[address] [facility] Name Value Range Interpretation Code Description Data Ema rce(s) Supporting Document(s) SARS coronavirus 2 RdRp gene Negative [facility] Test performed using the [employer] ID NOW C OVID-19 assay. This test is only for use under the Food and Drug Administration's Emergency Use Authorization. 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 [facility] Patient has symptoms related to [facility] When did you start to experience these symptoms [Date and time] [Phen X] [facility] Patient was hospitalized because of this condition [facility] patient was admitted to ICU for [facility] Patient resides in a congregate care setting [facility] status [facility] ID Date Data Source [id number] 04/23/2021 10:24:00 AM EST [facility] Name Value Range Interpretation Code Description Data Ema rce(s) Supporting Document(s) SARS coronavirus 2 RdRp gene Negative N [facility]O This lab was ordered by [facility] and reported by [facility]. ID Date Data Source [id number] 04/21/2021 07:56:28 PM EST [facility] Name Value Range Interpretation Code Description Data Ema rce(s) Supporting Document(s) Progress Note [facility] JNPHPu4fRpZQHvXg04/CRDxuJLBsd7OmXIgwPZr8MNvuVGWcL0WtRFR3mE1mHZA7PTtAOfMbEnLmTLVu lbm [file] R2kkWzNXarKZZcDT0AJOOJY3HSLs== ID Date Data Source [id number] 04/21/2021 07:56:[address] [facility] Name Value Range Interpretation Code Description Data Ema rce(s) Supporting Document(s) Progress Note [facility] MZZLKz9kCjRFFdPe52/CNZuvWWBof3DgYKusDLi6GXhlQHRoG4RoKET4eP4zKPM5DDiZBqAtHuEcOXXd lbm [file] AgICAgICAgICAgICAgICAgICAgICAgICAgICAgICAgICAgICAgICAgICAgICAgICAgICAgICAgICAgIC AgICAgICAgICAgICAgICAgICAgICAgICANCiAgICAgICAgICAgICAgICAgICAgICAgICAgICAgICAgIC AgICAgICAgICAgICAgICAgICAgICAgICAgICAgICAg ICAgICAgICAgICAgICAgICAgICAgICAgICAgICAgICAgICANCiAgICAgICAgICAgICAgICAgICAgICAg ICAgICAgICAgICAgICAgICAgICAgICAgICAgICAgICAgICAgICAgICAgICAgICAgICAgICAgICAgICAg ICAgICAgICAgICAgICAgICANCiAgICAgICAgICAgIC AgICAgICAgICAgICAgICAgICAgICAgICAgICAgICAgICAgICAgICAgICAgICAgICAgICAgICAgICAgIC AgICAgICAgICAgICAgICAgICAgICAgICAgICANCiAgICAgICAgICAgICAgICAgICAgICAgICAgICAgIC AgICAgICAgICAgICAgICAgICAgICAgICAgICAgICAg ICAgICAgICAgICAgICAgICAgICAgICAgICAgICAgICAgICAgICANCiAgICAgICAgICAgICAgICAgICAg ICAgICAgICAgICAgICAgICAgICAgICAgICAgICAgICAgICAgICAgICAgICAgICAgICAgICAgICAgICAg ICAgICAgICAgICAgICAgICAgICANCiAgICAgICAgIC AgICAgICAgICAgICAgICAgICAgICAgICAgICAgICAgICAgICAgICAgICAgICAgICAgICAgICAgICAgIC AgICAgICAgICAgICAgICAgICAgICAgICAgICAgICANCiAgICAgICAgICAgICAgICAgICAgICAgICAgIC AgICAgICAgICAgICAgICAgICAgICAgICAgICAgICAg ICAgICAgICAgICAgICAgICAgICAgICAgICAgICAgICAgICAgICAgICANCiAgICAgICAgICAgICAgICAg ICAgICAgICAgICAgICAgICAgICAgICAgICAgICAgICAgICAgICAgICAgICAgICAgICAgICAgICAgICAg ICAgICAgICAgICAgICAgICAgICAgICANCiAgICAgIC AgICAgICAgICAgICAgICAgICAgICAgICAgICAgICAgICAgICAgICAgICAgICAgICAgICAgICAgICAgIC AgICAgICAgICAgICAgICAgICAgICAgICAgICAgICAgICANCjw/vIItS8bduNZpksR3M8eqYy4OXr3GPB 6xr5BxVJCzTEohspGpImgHSrAsTUBuUtfXFwe1EHgg UJ0BcAPvX8UvJ6QmPQsvIH1QJQHoBZWdzQCnRUSaKGXzUhF9IIAjBMlrFK8CfLLiKJcpLQJxELMaBWUr HNWwHFTmYXQHPSBrZYAeFuCfCZZiGWReEUQdSTZEPO9UGmEmM1IvcA61VMXRGq9+DQplbmRvYmoNCjMz RLPrq2FaOCn4IG2RIIFwAjwai9GkQbHtUJGIASkqCI 6NVAU5VTT2HWQdGk0DELFcP972raOvGN7WBw6YWyGsBQ0kdy0NQzNvHXPmUkaZNbb2FJwuNU9AxDWpIK fHop2gpdYvviXIr4DaibXkjHLYNQJitbVdCAanH7kow29lkakjXSAsIRShBARxLZkbYcFuPDTqZIvlXH ZSPKuDMzArP0Kjp1CaUhQ6ILVvEyBjORruYYYlYpJ6 XZ53aNcsYO1RWYHlUBHnCV36BHTpZROjVu5DPo3OEcGcKL7acv1LOvBgAW7fru9GGThBBrNdX6I0mHIm Z6Qlxw75PB1XpMQ2qCBgUX6XrN9uOD0Ke0JgFCMdZeFwBMWvKYZfIREeZOPcKlJxLE7FQADqZkLvqSNo YSIbKND4EOQjIsB5XLMvAT1NNNGgDUA7MQ4GWL4CEs lsD7MKUWltpEwrEyFBZBD/DANZUTQVXHhnBWLdH17IT9IVXSwHHdokWSpBJsajVh2dCTr+Dh1JNX8ch4 EwLHduHREfUY7wig7JTZaRHtWhE0D7xMOwY7K2RVfiTz5WMHBlIYEhEyCeEGJFWLhdXK3KDY0lkuF9KL 6GpAPfSVCzEVYmfWKeMYh2D96wuLPtILxqJJ3HOPX+ Earl+An7MZLOwCIEgEKJjFxHwZGZKKaOqI6BxW3RCu7GkO3EmNA87wMrodnJuIDkgOJ1TEJ4gUTQcRLIO IT2LeZJugQ2gfgPjCoOjQMOLGtUaW39yiNHuOAXpNDMgIQVbLu8ELLVgN7VrszGtwVmwvpYhBBJxZEDM AE9MSBvpedAfxJVcgQjjKO06oFaiYM0PCt8TXeBxAK 9ryf9CmITrKj1LHNPpCx7FDSVrDPCpUIBwQYJ0LQIwJxUnSUkfHTLjSZSdAAR6NBJySNTbOS8ZVwRtHV ElNkN1MIMpBVRvSLWwba3XOBHfQUMeWWEwVgNxCZGbVGJxGSkpPKJnZQNnXUA6MKKmKDKvLK5LAcWgLV MfXFV4LCTnCNNoJWIsrr2VJTUqSZNeYAx7UqLmHRDj HVKnWHwoSDSdHVW0DMB6MAUzAJFyDJ2LYoUbUFBwCPluHByqDWEjXJJhrj0PGRAqQTVkViVyTnUdKLAp FBZvHJbvJSQmQUA0HCB0YIMmPGRqVV7FQqIaZZYqDAMeXGLbSZWnTPRdqt9IQMKmZBXxLlzqGHWeRGWb GALtQHfuKVXlLVHwJSJ9DHOuIMKrIR1LQtPiVRLwDQ IkOIKxHKHjHMKdyx6ITGSqPOFzDJT2WrPfIVYfTDXqQQgnLCUvQHB3VGZ9FYLjXLHcRJ9WGuXuBLUuLN ccNiFeMUHvSFYbuc4PUHLzSPWzDGX4QMDePNLhYPMdEPsdLTFkCYB4ZYehODIaMLMbMD1XArTaVZUlBN r5JzFwDEBoPUTnor0RZBSpOOWvWIIgXYOuAIXgSTOp ZFldBCLaPDM7GVT9QGAsPAIxXI2PQkCmKFXzGdZeAnYeYIYaBJIgaf9JOORsTBEeEHX8DLFuPEHfYYFt RPlsOREcFJPuBku0LUWlLGIeOH8AVnOcQZPaJjH9PDnfESAsUDEnub6RGLLbFFYtGfOkHPMlNTUoQHHa IJkqGWLhZQJkGil3ZERoNWTgXV9KVwUaRZPgNiQrYy ngTEYdHMXhkv3SLAXgBSYiMhHjJRVoYFSfXQTdUSlkGXYgQZIbVuygVBHsWIVlDJ2XWtAqLVYuVnKvUS cnQPVtKPOimv6FOKIgKXUrGRR1CBIcIOAoQOYtVYuoTPIqCDF8HkIwSRJhCEBjQQ3YJmElEGXeMvI1Ay qoLVLhWTBena7SbYZrhElvbz0XRNwNAj6OvEvvSJL1 MLsiNk3uoRSzRKAeCWXFUv0TqfJrCUVrAYUVNQbyPOVbIPQmKKRhZVyfZpE5QcvcXgM6OIFtGDBbUXa7 OITjNCa7MmO0SJKpAfJcU6WeVOEyQ8GyEiv3ZvZqNaJ6NXAdKZZ1EPp+QQ0oZWg+Dq9Ez0XkhzG1amXj COugAjApIy0WNFHER2PVLb== ID Date Data Source [id number] 04/21/2021 08:25:23 AM EST [facility] Name Value Range Interpretation Code Description Data Ema rce(s) Supporting Document(s) Progress Note [facility] QICSWz2nHrKBOoDt83/HWAbcURKlk8XyMKkxPXi5EFcqRXRzY6TuJXC3sX0zWUR6TVrGAdUdDySxDBVh lbm LnKjcRJvCdPSFvAwjKScXcCXwiWjitgPAqFH4HyJA1IHHjG41nOEDcKWYbY3RaJSH0FWT+Ua2YLVMruU XcXK5XIazI9K2ul3mFDe9ouK8HwFWX2eTmGG8qXED5qMQbpr95gxkOvE/NPt1taHGET5itS82+Pato+Y/k [file] A3XMGbKtndBXY9YXC5WbPfOI1WBw2WGtQ1NVD8sEAuQx4XQhZ3FWhPRoRkRU2REPt= ID Date Data Source [id number] 04/19/2021 03:29:00 PM EST [facility] Name Value Range Interpretation Code Description Data Ema rce(s) Supporting Document(s) SARS coronavirus 2 RNA [Presence] in Res piratory specimen by JUSTEN with probe detection NEGATIVE [facility] This lab was ordered by [facility] a nd reported by [facility]. ID Date Data Source [id number] 04/18/2021 12:14:[address] [facility] Name Value Range Interpretation Code Description Data Ema rce(s) Supporting Document(s) Leukocytes [#/volume] in Blood by Automated count 4.4 10*3/uL 4-10 [facility] Erythrocytes [#/volume] in Blood by Automated count 3.04 10*6/uL 4.6- 6.1 L [facility] Hemoglobin [Mass/volume] in Blood 8.3 g/dL 13.5-18 L [facility] Hematocrit [Volume Fraction] of Blood by Automated count 25.4 % 4 1-53 L [facility] Erythrocyte mean corpuscular volume [Entitic volume] by Auto mated count 83.6 fL 80-96 [facility] Erythrocyte mean corpuscular hemoglobin [Entitic mass] by Automated count 27.3 pg 27-33 [facility] Erythrocyte mean corpuscular hemoglobin concentration [Mass/volume] by Automated count 32.6 g/dL 32.0-36.0 [facility] width [Ratio] by Automated count 16.4 % 11.5-14.5 H [facility] Platelets [#/volume] in Blood by Automated count 192 10*3/uL 150-400 [facility] Differential cell count method - Blood [facility] Neutrophils/100 leukocytes in Blood by Automated count 71 % [facility] Lymphocytes/100 leukocytes in Blood by Automated count 7 % [facility] Monocytes/100 leukocytes in Blood by Automated count 11 % [facility] Eosinophils/100 leukocytes in Blood by Automated count 9 % [facility] Basophils/100 leukocytes in Blood by Automated count 2 % [facility] Neutrophils [#/volume] in Blood by Automated count 3.16 10*3/uL 1.8-7 .0 [facility] Lymphocytes [#/volume] in Blood by Automated count 0.30 10*3/uL 1.2-4 .0 L [facility] Monocytes [#/volume] in Blood by Automated count 0.47 10*3/uL 0-0.8 [facility] Eosinophils [#/volume] in Blood by Automated count 0.39 10*3/uL 0-0.5 [facility] Basophils [#/volume] in Blood by Automated count 0.06 10*3/uL 0-0.2 [facility] Nucleated erythrocytes/100 leukocytes [Ratio] in Blood by Automated count 0 /100{WBCs} 0-0 [facility] ID Date Data Source [id number] 04/18/2021 12:24:00 PM [facility] Value Range Interpretation Code Description Data Ema rce(s) Supporting Document(s) Prothrombin time (PT) 13.8 s 11.6-14.0 [facility] INR in Platelet poor plasma by Coagulation assay 1.11 [facility] Routine intensity oral anticoagulation I NR is typically 2.0-3.0. Target INR must be clinically individualized. ID Date Data Source [id number] 04/18/2021 12:24:00 PM [facility] Value Range Interpretation Code Description Data Ema rce(s) Supporting Document(s) aPTT in Platelet poor plasma by Coagulation assay 31.0 s 24.0-33. 0 [facility] ID Date Data Source [id number] 04/18/2021 12:52:55 PM [facility] Value Range Interpretation Code Description Data Ema rce(s) Supporting Document(s) Albumin [Mass/volume] in Serum or Plasma by Bromocresol green (BCG) dye binding method 3.2 g/dL 3.5-5.2 [facility] Bilirubin.total [Mass/volume] in Serum or Plasma 0.5 mg/dL <1.2 [facility] Calcium [Mass/volume] in Serum or Plasma 10.7 mg/dL 8.8-10.2 H [facility] Chloride [Moles/volume] in Serum or Plasma 101 mmol/L 98-107 [facility] Creatinine [Mass/volume] in Serum or Plasma 1.47 mg/dL 0.70-1.20 H [facility] Glucose [Mass/volume] in Serum or Plasma 175 mg/dL 70-140 H [facility] Alkaline phosphatase [Enzymatic activity/volume] in Serum or Plasma 182 U/L 40-129 H [facility] Potassium [Moles/volume] in Serum or Plasma 4.9 mmol/L 3.4-5.1 [facility] Protein [Mass/volume] in Serum or Plasma 6.9 g/dL 6.4-8.3 [facility] Sodium [Moles/volume] in Serum or Plasma 131 mmol/L 136-145 L [facility] Aspartate aminotransferase [Enzymatic activity/volume] in Serum or Plasma 92 U/L <40 H [facility] Urea nitrogen [Mass/volume] in Serum or Plasma 37 mg/dL 8-23 H [facility] Osmolality of Serum or Plasma by calculation 285 mosm/kg 275-300 [facility] Creatinine/Urea nitrogen [Mass Ratio] in Serum or Plasma 25 [facility] Bicarbonate [Moles/volume] in Serum 20 mmol/L 22-29 L [facility] Alanine aminotransferase [Enzymatic activity/volume] in Seru m or Plasma 83 U/L <41 H [facility] Anion gap 3 in Serum or Plasma 10 mmol/L 8-15 [facility] Glomerular filtration rate/1.73 sq M pre dicted among non-blacks [Volume Rate/Area] in Serum or Plasma by Creatinine-based formula (MDRD) 44 mL/min/1.73m2 >60 L [facility] Glomerular filtration rate/1.73 sq M pre dicted among blacks [Volume Rate/Area] in Serum or Plasma by Creatinine-based formula (MDRD) 51 mL/min/1.73m2 >60 L [facility] ID Date Data Source [id number] 04/18/2021 12:52:[address] [facility] Name Value Range Interpretation Code Description Data Ema rce(s) Supporting Document(s) Gdcwz-3-Ukfpyehiomt [Mass/volume] in Serum or Plasma 52 ng/mL <9 H [facility] ID Date Data Source [id number] 04/18/2021 02:25:[address] [facility] Name Value Range Interpretation Code Description Data Ema rce(s) Supporting Document(s) Lactate dehydrogenase [Enzymatic activit y/volume] in Serum or Plasma by Lactate to pyruvate reaction 230 U/L 122-225 H [facility] ID Date Data Source [id number] 04/14/2021 08:37:[address] [facility] IR VISCERAL ARTERIOGRAMFINAL RESULTInter preted by:Eulalia Muñiz [...] tract. Through the AccuStick sheath, a 4 Icelandic Kumpe catheter was introduced into the splenic [...] rce(s) Supporting Document(s) ID Date Data Source [id number] 04/13/2021 03:33:00 PM EST [facility] Name Value Range Interpretation Code Description Data Ema rce(s) Supporting Document(s) SARS coronavirus 2 RNA [Presence] in Res piratory specimen by JUSTEN with probe detection NEGATIVE [facility] This lab was ordered by [facility] a nd reported by [facility]. ID Date Data Source [id number] 04/12/2021 12:02:55 PM EST [facility] Name Value Range Interpretation Code Description Data Ema rce(s) Supporting Document(s) Progress Note [facility] ZXRRFc7kWfCGBfTq96/KODoaOCMjs6BhFOjyUGh9LXgkXDDvB4YzRMK4sJ2nARU1ICkCWkOjGtToRYFn lbm [file] [id number]== ID Date Data Source [id number] 04/09/2021 08:41:20 AM [facility] Name Value Range Interpretation Code Description Data Ema rce(s) Supporting Document(s) History and Physical [facility] ZWDGBz0xWrCFPtTo14/YONyfJNWqo7PkOWoiOBn1VOegJVIxK3VsVNI2dX0bPPB3DJgVQhWxIeQjUFN3 lbm [file] hfFoN5R6B6X/weight count operator+W//4gv0pl4LzEDKRZcWYMTsiKy [file] ID Date Data Source [id number] 04/09/2021 08:22:[address] [facility] Name Value Range Interpretation Code Description Data Ema rce(s) Supporting Document(s) Leukocytes [#/volume] in Blood by Automated count 3.9 10*3/uL 4-10 L [facility] Erythrocytes [#/volume] in Blood by Automated count 2.94 10*6/uL 4.6- 6.1 L [facility] Hemoglobin [Mass/volume] in Blood 8.3 g/dL 13.5-18 L [facility] Hematocrit [Volume Fraction] of Blood by Automated count 24.7 % 4 1-53 L [facility] Erythrocyte mean corpuscular volume [Entitic volume] by Auto mated count 84.2 fL 80-96 [facility] Erythrocyte mean corpuscular hemoglobin [Entitic mass] by Automated count 28.1 pg 27-33 [facility] Erythrocyte mean corpuscular hemoglobin concentration [Mass/volume] by Automated count 33.4 g/dL 32.0-36.0 [facility] Erythrocyte distribution width [Ratio] by Automated count 16.4 % 11.5-14.5 H [facility] Platelets [#/volume] in Blood by Automated count 133 10*3/uL 150-400 L [facility] Differential cell count method - Blood [facility] Neutrophils/100 leukocytes in Blood by Automated count 75 % [facility] Lymphocytes/100 leukocytes in Blood by Automated count 7 % [facility] Monocytes/100 leukocytes in Blood by Automated count 10 % [facility] Eosinophils/100 leukocytes in Blood by Automated count 6 % [facility] Basophils/100 leukocytes in Blood by Automated count 2 % [facility] Neutrophils [#/volume] in Blood by Automated count 3.00 10*3/uL 1.8-7 .0 [facility] Lymphocytes [#/volume] in Blood by Automated count 0.26 10*3/uL 1.2-4 .0 L [facility] Monocytes [#/volume] in Blood by Automated count 0.39 10*3/uL 0-0.8 [facility] Eosinophils [#/volume] in Blood by Automated count 0.24 10*3/uL 0-0.5 [facility] Basophils [#/volume] in Blood by Automated count 0.06 10*3/uL 0-0.2 [facility] Nucleated erythrocytes/100 leukocytes [Ratio] in Blood by Automated count 0 /100{WBCs} 0-0 [facility] ID Date Data Source [id number] 04/09/2021 08:38:37 AM [facility] Value Range Interpretation Code Description Data Ema rce(s) Supporting Document(s) Prothrombin time (PT) 14.9 s 11.6-14.0 H [facility] INR in Platelet poor plasma by Coagulation assay 1.21 [facility] Routine intensity oral anticoagulation I NR is typically 2.0-3.0. Target INR must be clinically individualized. ID Date Data Source [id number] 04/09/2021 08:43:53 AM [facility] Value Range Interpretation Code Description Data Ema rce(s) Supporting Document(s) Albumin [Mass/volume] in Serum or Plasma by Bromocresol green (BCG) dye binding method 3.0 g/dL 3.5-5.2 [facility] Bilirubin.total [Mass/volume] in Serum or Plasma 0.5 mg/dL <1.2 [facility] Calcium [Mass/volume] in Serum or Plasma 10.7 mg/dL 8.8-10.2 H [facility] Chloride [Moles/volume] in Serum or Plasma 102 mmol/L 98-107 [facility] Creatinine [Mass/volume] in Serum or Plasma 1.50 mg/dL 0.70-1.20 H [facility] Glucose [Mass/volume] in Serum or Plasma 114 mg/dL 70-140 [facility] Alkaline phosphatase [Enzymatic activity/volume] in Serum or Plasma 181 U/L 40-129 H [facility] Potassium [Moles/volume] in Serum or Plasma 4.9 mmol/L 3.4-5.1 [facility] Protein [Mass/volume] in Serum or Plasma 7.4 g/dL 6.4-8.3 [facility] Sodium [Moles/volume] in Serum or Plasma 130 mmol/L 136-145 L [facility] Aspartate aminotransferase [Enzymatic activity/volume] in Serum or Plasma 90 U/L <40 H [facility] Urea nitrogen [Mass/volume] in Serum or Plasma 55 mg/dL 8-23 H [facility] Osmolality of Serum or Plasma by calculation 286 mosm/kg 275-300 [facility] Creatinine/Urea nitrogen [Mass Ratio] in Serum or Plasma 37 [facility] Bicarbonate [Moles/volume] in Serum 15 mmol/L 22-29 L [facility] Alanine aminotransferase [Enzymatic activity/volume] in Seru m or Plasma 66 U/L <41 H [facility] Anion gap 3 in Serum or Plasma 13 mmol/L 8-15 [facility] Glomerular filtration rate/1.73 sq M pre dicted among non-blacks [Volume Rate/Area] in Serum or Plasma by Creatinine-based formula (MDRD) 43 mL/min/1.73m2 >60 L [facility] Glomerular filtration rate/1.73 sq M pre dicted among blacks [Volume Rate/Area] in Serum or Plasma by Creatinine-based formula (MDRD) 49 mL/min/1.73m2 >60 L [facility] ID Date Data Source [id number] 04/09/2021 07:41:57 AM EST [facility] Name Value Range Interpretation Code Description Data Ema rce(s) Supporting Document(s) Glucose [Mass/volume] in Capillary blood by Glucometer 106 mg/dL 70- 140 [facility] ID Date Data Source [id number] 04/08/2021 12:00:00 AM EST eCW1 ([facility]) Name Value Range Interpretation Code Description Data Ema rce(s) Supporting Document(s) 2.4 1.8-2.4 MAGNESIUM LEVEL eCW1 ([facility]) ID Date Data Source Basic Metabolic Profile (BMP) 04/08/2021 12:00:00 AM EST eCW 1 ([facility]) Name Value Range Interpretation Code Description Data Ema rce(s) Supporting Document(s) 155 70-100 GLUCOSE, FASTING eCW1 ([facility]) 45 7-18 BLOOD UREA NITROGEN eCW1 ([facility]) 135 136-145 SODIUM LEVEL eCW1 ([facility]) 41.0 >42 GLOMERULAR FILTRATION RATE eCW 1 ([facility]) 1.72 0.70-1.30 CREATININE FOR GFR eCW1 ([facility]) 5.2 3.5-5.1 POTASSIUM SERUM eCW1 ([facility]) 20 21-32 CARBON DIOXIDE LEVEL eCW1 ([facility]) 11.0 8.8-10.2 CALCIUM LEVEL eCW1 ([facility]) 107 98-107 CHLORIDE LEVEL eCW1 ([facility]) ID Date Data Source CBC with Differential 04/08/2021 12:00:00 AM EST eCW1 ([facility]) Name Value Range Interpretation Code Description Data Ema rce(s) Supporting Document(s) 3.01 4.30-6.10 RED BLOOD COUNT eCW1 ([facility]) 4.0 4.0-10.0 WHITE BLOOD COUNT eCW1 ([facility]) 8.3 13.5-17.5 HEMOGLOBIN eCW1 ([facility]) 86.0 80.0-96.0 MEAN CORPUSCULAR VOLUME e CW1 ([facility]) 25.9 42.0-52.0 HEMATOCRIT eCW1 ([facility]) 178 150-450 PLATELET COUNT, AUTOMATED eCW1 ([facility]) 27.6 27.0-33.0 MEAN CORPUSCULAR HEMOGLOB IN eCW1 ([facility]) 15.9 11.5-14.5 RED CELL DISTRIBUTION WID TH eCW1 ([facility]) 32.0 32.0-36.5 MEAN CORPUSCULAR HGB CONC eCW1 ([facility]) 66.1 36.0-66.0 NEUTROPHILS % eCW1 ([facility]) 10.4 24.0-44.0 LYMPH % eCW1 ([facility]) 14.1 2.0-8.0 MONO % eCW1 ([facility]) 7.3 0.0-3.0 EOS % eCW1 ([facility]) 1.8 0.0-1.0 BASO % eCW1 ([facility]) 2.6 1.5-8.5 NEUTROPHILS # eCW1 ([facility]) 0.4 1.5-5.0 LYMPH # eCW1 ([facility]) 0.3 0.0-0.5 EOS # eCW1 ([facility]) 0.6 0.0-0.8 MONO # eCW1 ([facility]) 0.1 0.0-0.2 BASO # eCW1 ([facility]) ID Date Data Source [id number] 04/05/2021 12:51:04 PM EDT [facility] Name Value Range Interpretation Code Description Data Ema rce(s) Supporting Document(s) Progress Note [facility] ODNNPk7gNwUKCkSd89/HFOmzLORzo8MxLPjaLUa2TNxePDXpJ3IaDHO1aL2rREU7XXiAXzHfPqIhUOS6 lbm FtQalYAzNdBMJwRwhYFkVnGCxwPuqyaYZeAQ2HdKW7KIXbM80gVXPhWIZmU8ClHCI4JKo+Kd0GKEHhnF BqIL1RYiqM2IyyPpyTVN2iug2yxQbPEtW3c8aik8zUTUeCYAnmT3Mw0SaWe09l0+faJin/onro1rAfYu jWVFUTRfBkd+vRcZ2sxX8YCWKqg3D+4QtLB3Y/628D w7X4XVc/pqebjvNwVc1YQfUJ6JVQKIxIn3Uz/qY9kdB292mFxslT48QUAW8B4FyKP/3By+ZiTh1ZAC39 VIgsEMZfZjrMZDGG3MXO7Auttao5kgNYnM1YBpyJHXsLfbx2BPAFRLnvolAYHR1+yolcIje6IZTAmzDb MJ73YEZIBi5hQDqSGtl//1dxgj90qZPHWVh00MqTqi EZJBaBx1NSd+QTvgZH1OBdceAOkH5TrzC8KosOE92O4NtzHwc0NKKzD1/+IhZDu/XE8caqSMKlHEzaHk Xzyh19JDdVX7s+QKsiflbjeLYSx/E0GS2i+t74ekloZ2ATiIrS1apdL94dtEoYOmF+9jajQtiTMB6nXc jOpIvT7f0KIi0LAulq8gS5Sl3AW3Dqo9TGKgH370s/ appYeIyYn3WzVuVNQcwxT8l/DGvnHZ+5rTpISdy9vf7XuwGFglTzg7e1Qm54SdLCZI3Rj7V5hKkoPdLd c2OccwLkaJ1nfn876M9sEHXDIMy1FDFsM1gnmVMNvBAyWG6o2opGo1FLeX1VUkvCOjyYChSTH4Wos/RR sudWckYUQGfkPnQ6JKEEU1jylWpNLr85VBA3YjtZbQ 56YeGOrAiOAYhLU3RbZKymT80O40X8G8JhezEMXCCwsVsolmGJwcCzHIpxHQtoXK1nDJJKHUYXlrIAl6 HHYcqBxlJlNhMzi54I030532smIx3qp6aHnTKAD6A/kP2o4utLIaPdwT0sNDgUWAhevN5+R/WvDDxfJF /As3npelBngHxPo+uYcAXSAJMjk4QLR7Px6UW+3/HINOJOSA [file] BhLAQuAbeaFvTrJM0KJo7UGlB0ZKL0mYQeBl4WIVo4TNXIDvEvFV6FJCb= ID Date Data Source [id number] 04/05/2021 12:51:00 PM EDT [facility] Name Value Range Interpretation Code Description Data Ema rce(s) Supporting Document(s) SARS-CoV-2 RNA 2019 nCoV Real-Time RT-PCR: NOT DETECTED [facility] This lab was ordered by [facility] and reported by [facility]. 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 [facility] Patient has symptoms related to condition [facility] When did you start to experience these symptoms [Date and time] [Phen X] [facility] Patient was hospitalized because of this condition [facility] patient was admitted to ICU for [facility] Patient resides in a congregate care setting [facility] status [facility] ID Date Data Source [id number] 03/31/2021 05:03:49 PM EDT [facility] Name Value Range Interpretation Code Description Data Ema rce(s) Supporting Document(s) Progress Note [facility] OOKTIj8cPpLDCfYr58/URJtxORYev4OsXDxxJLz5RRylJPLcE8TvIXB1nZ3dTHI5LTlMVgBdHpXpGOCf lbm [file] ICAgICAgICAgICAgICAgICAgICAgICAgICAgICAgIC AgICAgICAgICAgICAgICAgICAgICAgICAgICAgICAgICAgICAgICAgICAgICAgICAgICAgDQogICAgIC AgICAgICAgICAgICAgICAgICAgICAgICAgICAgICAgICAgICAgICAgICAgICAgICAgICAgICAgICAgIC AgICAgICAgICAgICAgICAgICAgICAgICAgICAgICAg ICAgDQogICAgICAgICAgICAgICAgICAgICAgICAgICAgICAgICAgICAgICAgICAgICAgICAgICAgICAg ICAgICAgICAgICAgICAgICAgICAgICAgICAgICAgICAgICAgICAgICAgICAgDQogICAgICAgICAgICAg ICAgICAgICAgICAgICAgICAgICAgICAgICAgICAgIC AgICAgICAgICAgICAgICAgICAgICAgICAgICAgICAgICAgICAgICAgICAgICAgICAgICAgICAgDQogIC AgICAgICAgICAgICAgICAgICAgICAgICAgICAgICAgICAgICAgICAgICAgICAgICAgICAgICAgICAgIC AgICAgICAgICAgICAgICAgICAgICAgICAgICAgICAg ICAgICAgDQogICAgICAgICAgICAgICAgICAgICAgICAgICAgICAgICAgICAgICAgICAgICAgICAgICAg ICAgICAgICAgICAgICAgICAgICAgICAgICAgICAgICAgICAgICAgICAgICAgICAgDQogICAgICAgICAg ICAgICAgICAgICAgICAgICAgICAgICAgICAgICAgIC AgICAgICAgICAgICAgICAgICAgICAgICAgICAgICAgICAgICAgICAgICAgICAgICAgICAgICAgICAgDQ ogICAgICAgICAgICAgICAgICAgICAgICAgICAgICAgICAgICAgICAgICAgICAgICAgICAgICAgICAgIC AgICAgICAgICAgICAgICAgICAgICAgICAgICAgICAg ICAgICAgICAgDQogICAgICAgICAgICAgICAgICAgICAgICAgICAgICAgICAgICAgICAgICAgICAgICAg ICAgICAgICAgICAgICAgICAgICAgICAgICAgICAgICAgICAgICAgICAgICAgICAgICAgDQogICAgICAg ICAgICAgICAgICAgICAgICAgICAgICAgICAgICAgIC AgICAgICAgICAgICAgICAgICAgICAgICAgICAgICAgICAgICAgICAgICAgICAgICAgICAgICAgICAgIC PfQFm3W8meSOYvOPWvCJ4fKYt7Uv9+TUiLHePwIVD9qaFppD6GIK3ke3QsUEmpOCSnf6UfYQy6FW4YIJ PxTIcdSP1GYIqlhp8IQVWfTPYhoABHn8ajOtDeRIV3 UUViDlycWL5YLIAsM4zfblSwHBZrPKTGIK9NGhXiR7JaeP61HAQNXz9+KCjuqjPsXupPTzB1SJXju1Uw UVr4DF5RMDEyPzvlu9AqYwHkSKQNSXdnZJ8SITJ5ZNDpAIAoEm0NLDAvT975umTzTE5ZPv6TWiJqWB0e xw5XXuLgJLQyNiuWWcn7BEizKV9BqAZsPImWkz7qjx EviiZJd4UfyuBifTYRITa0eJFIJCOoOZFGSdUfuKNzOV5yAK4uOABfHQIkLlP1WCSPUE0LJDLcMSLoaS YnCVByAQWHEB4WMZbiVGC6EHBixwTkmZOuNZpnJI4XSSTlhiXhMWxrZQENPNq+Ee7VQP0jk6WzHLmlQJ EgUA4ims0YKIsOBkRiL5W2nWHsH9K8REuhBf7SONMv GPTbSZvjHVTBQIudHZ1TRK2bzfI8GZ9UmIUzYQNcDXYadAXzOEu7D84gpEIkNUueEO7MMJI+Earl+Pg0K DOHnMJDhYVJuXqAcWBNTTjJzR7XuW7APm9BjB2XyIP95bSoouaVqFLopSF9CHO7pEBOjGXVBVJ8NmAYy mG6nomUpNGDmSPZEYwPfM78tsJOrACKlJDG0ZRTsCm 4YKGVvG0RbdpJfpBrxjgDfLMVbCVHWXO2SZJwjpxPjjIImfSkeRF98sHpeGA2KNm3DQyFrDU3vui7VjE LcGg5BNIIbUg0WVUEiPYLpVAOmYJS9JONxQnHfVMkuWVWgEAOjQPB9NXXkJWWsQO0SUlWvJUMxFYodNl XoWSWcOUEiha8CRZUhTYLvHIx3OEHyFDZxRQIwESie KDNaJIHzEGD7EDEoZDPzSC5PBbXoFNJdWZL8UUuqGGCvREIeyv2XRNBqGFFtOkQ2ZfMyNZKfQNFuTOag UVLoCYNpYYWuMESnJYKaLM6ODnZwLHJlDKZeBEfeJPWuRPQbxy6ZVEJrXKQuXlG2VzShBNUiMGEpNBfy ZFCmGPN9WhN3UZRsTEFiAZ2GIkPpYYYzGVD9BRrvZB YeWTPlkb6UWVLcPNKxZTieHTDuCHUmNGIgFWqwDFJrUSR4QKc4ZFMlQKFjHH5ZCfOnJMVaQFA7CLIqEE TpOBXbsj0QQTSjWINpRdGtGWDcNAEvDNLaHJadWNDwRJM6KVW6INJbBWUaWP2SRuEcNAUuOAzjLBUnVR VyGPEome2DLFXaXNNvTfTaLXFgDGGaLVCkHEisEBYx BVK9VUB4UIFlLWRdMO8XSnCmHXHjBXp9OTkbFBUrSDRfbj8QUUYeGUHrXGN6JRJoCXVtEVAfIZb1wlHx qOAcNAp3QE3LG0OheqMrTlZHGt9Ix110VBIfFRPuEj4JH3khAd9mOFGyIWIEZn1HRJz6VNX0UNS5J6Dp DODyGLIuXnT4NLOeGZDhKER5QmJ5VDO+GIo9UWixXP i1CtReATMeTbPoWpKyAXN5YWV0IgfpMwafFM4vNPJBDz5+MOxkdREcgYifAUTGQbF1Wey9OKdjHPDQOy 0K ID Date Data Source [id number] 03/31/2021 05:03:44 PM EDT [facility] Name Value Range Interpretation Code Description Data Ema rce(s) Supporting Document(s) Progress Note [facility] JAOHDe8ePrPEGxVe45/OYZxlHYYih6KfWVpuMFb2LHujWTLbM9LdTCX8vT5zXSS6RYfBCmKiZsOrOMKi lbm [file] ICAgICAgICAgICAgICAgICAgICAgICAgICAgICAgIC OgGFKgLEYcZWSmBINvVJ4DXHSzNICbWEMtTROjJKGyPYFpJNJiHHIlKPFjUIYhXUDnLEJcPBWmHFNrNV XlKLGpZESbWEUkOOPwAPJpKTZtWPDpMRGuVTVtYDKaJZAmYZDeSPKqUUWsPRRbKRVeYALaUGCbMR4WLT AgICAgICAgICAgICAgICAgICAgICAgICAgICAgICAg ICAgICAgICAgICAgICAgICAgICAgICAgICAgICAgICAgICAgICAgICAgICAgICAgICAgICAgICAgICAg OACpEDJgXQ4RZLWwBQBvPUFvOPMwWDNzNQSlCITrUNBzTYFePEVlASOsRJLjDOHxSFUmGFKeRYKeRTHa ICAgICAgICAgICAgICAgICAgICAgICAgICAgICAgIC ObALPlZUSnQKLqCCHyPGGbBM6UTRIdXYChNFJgOLWzNPFpIXKnVGBoQPZnNDAuCQPdQTCaIXFfPREmIT AgICAgICAgICAgICAgICAgICAgICAgICAgICAgICAgICAgICAgICAgICAgICAgICAgICAgICAgICAgIA 0KICAgICAgICAgICAgICAgICAgICAgICAgICAgICAg ICAgICAgICAgICAgICAgICAgICAgICAgICAgICAgICAgICAgICAgICAgICAgICAgICAgICAgICAgICAg OKSlHFHnSNLjZY4HQLFkMDLjDBCzSKZrSHVeMFAaFGXfSMIiBUCxBJGeUTPqIGYcWAOaHUWrPBHiWWRd ICAgICAgICAgICAgICAgICAgICAgICAgICAgICAgIC HfBBLnVLEdXHSeOBCyGTMuYKMnXW2DCDDsWJXvWVOpRHVmCIGtNWIfRLNdXCXtTNEqBBHgUNUiQFWuHB AgICAgICAgICAgICAgICAgICAgICAgICAgICAgICAgICAgICAgICAgICAgICAgICAgICAgICAgICAgIC FjWS3JJERfKHAtJPBmSJQtEIXgWQJcAHDiBRYfIITo ICAgICAgICAgICAgICAgICAgICAgICAgICAgICAgICAgICAgICAgICAgICAgICAgICAgICAgICAgICAg XZXbKATzQULfXMSqBD5SDNRlOXDgXWKhDPIwVEXyEUXnJIXqTZVtCHWwMFLnHXPqFACrYEGfVJBdZBOi ICAgICAgICAgICAgICAgICAgICAgICAgICAgICAgIC RgGPRxVNLfCFXoLTDeQNKsYHNkUYNfTE0EYG68aZSrv6G5RFGaHS7letv/Mr1KWUzpnjBxqIVhDU5JEp WyLH8jmr9PRdUvII2hwn1UYHrQLoRjB6J1iROoGFTdOBIMIgOjP69mRHjvMu79JUcxTCRzGpWaBWj3Ul 1FFxMgX9izOFWpJmH3PJIqZvX5EERmEhR3UVGgTzIl VGHlXYNaQBVdLPDPFW8ECuPuK7DxkQ04EKOJYf6+XBqnzeTbIebGIxK4XHCaa5MaUQq2MD5HRETzXskc r4TcJttdMARVWTphGM0WRGK6QFL6MTZdHg1KCPWbZ950gzGmPD4RKa8NHbTeLX1naz2YOldgYCDeHzfU Umo6WUeiTA3WqHSwSTvBwt7wosJuwfKDc7VpnkPqyK IYedwkmKhjCTcuIlDax5NqEUFKVBJgrJRnHT5aIO9oWDUcNEIwGnS2POEKQI6PFVAtXXOqxSKnMDOtVS ZNMV0JDMcgUWS0GIBxeqZzdPQoETgzAN3WPSJsrwHkJtdyCSSJXTz+Lg2SGM0zq3TzMOxqRXIhWJ6phw 1ZLAwEHbJgH1V7mYFeU0S3HAbnPz9KRLDqIAZlTmJs EMUQNPbdBI5KSH3bphO8XP9VjZBkBGPlVLCefLCaHWj4N26hrBEvLTlkNA0BTHN+Earl+Dg7VNPPiZBSi HHVrGzKuVRMHMgMpV6NmQ4UKh1YaK2XvYK47xHhjcfMpQFpuNB4ADL4gSHKmVPJZJD0PdFYulZ7dltRa FyTzKXHLWlIlR36blJTuSQEbIOI0KPOzJg4WBVHrU3 RokcYkuJutiyXiDJUeYHIMDA0UUPpqebSncKFkgPlrKA75iFulNR8HNf9YEyFqOD3kqi8ImQWsYe0GKX GcZK0KLNPfSBTkWNSdVFO3UYBnOeViWHlzYBIkZNRsGIS5IAIbSEPcGT8LDwRxZYFzUoZdDFQsCLKaAA Chrv0AULWzLCLdMtRdULKaCWCpLUSkQIorJBQdANWn RCJ7BPKcGJXqUL1RRiVwEZAgSNG3ZGYqXHPkUIVqod0XWOQiZEEgAUW8NDRqWHNaEJYjWTzfTUHeBAF5 JjI2ZCAqUUBbHH9HQwSpZCTlWFy1UeRzEFHxCQApmc5XGKCzZWWoAFHwEGNhMZAlXAKqMAyiCDXyVFKm TVA7CZHkQVCzNF8FZcUyHKHkPGL7ISQaAUJdVJRcfg 5WKGYaRHGqRtt6RmTkIEZhBRFmNNkpGFLnLAC3XFY2TJJhWEDcMQ4BWtMrRNXaBMPtVHHoOAKbWSFteq 8VKDKxXXMqOtFxGABuQWOsKSZiSEmwCVFpYMQ2JJZtZXXjLKYrNK0SOlMkRMPuNJR0IUZoNDAkULKmlm 2QQKKbGCHaYfI5XlJeAEZmCTGeFNybYZBcEPX4FpK0 GNWkZVDgJE8EWuBjEMHlVXx5RfRtICEcOGAkwh4OQXTzIDHhUZW6PdZjOSBrAGRnCTfrHQNyMNO3Ctg0 REBnUVNmMD2TSbHjGBYfFrs0UOuvHVVwHXDdjp5JCJMpPMDvFLM4DvLyTKSuYHXwAKobBTTbXQDyMjrq JDSdKBUcRE4NRrUrVRInExM0HUEmLPSgZNQrkq1DFH YlLQAvEjG3DTDcDANlADThYUqxKXYuTBZjNaK3QEZwFIBvIV1LShCjYGVuNlTmCFCuDIEoHABlyy8LqA FtaHjyox3LRBfVGl6YpGsfQOVtFLjgEv6ypPLdDYCmJDWUSv5BhzDzHACbQZCFPIfpIOYpLYDjLbEsPN E3LVPlNWFbOGGxDzhuEOD6Nxu7WfFgMWLxPsJ3UTZl NNT0Poq4QiKeJRWwKABoUECsWDjiNjeoAXQoDJL+HL1gFNi+St9Dl8IjahK1rtUyAEegKvZfBA1FCEUX T0YNCg== ID Date Data Source [id number] 03/31/2021 11:27:34 AM EDT [facility] Name Value Range Interpretation Code Description Data Ema rce(s) Supporting Document(s) POC GLUCOSE 206 mg/dL (70-99) H [facility] NOTIFIED PROVIDERNOTIFIED NURSEPERFORMED BY CLINICAL STAFF ID Date Data Source [id number] 03/31/2021 09:33:13 AM EDT [facility] Name Value Range Interpretation Code Description Data Ema rce(s) Supporting Document(s) WBC 4.7 10*3/uL (4.1-11.0) [facility] [place] RBC 3.05 10*6/uL (4.60-6.10) L [facility] HGB 8.5 g/dL (13.5-18.0) L [facility] PATIENT TRANSFUSED HCT 25.8 % (41.0-53.0) L [facility] PERFORMED AT [address] [place] [address] MCV 84.6 fL (80.0-95.0) [facility] MCH 28.0 pg (27.0-32.0) [facility] MCHC 33.0 g/dL (32.0-36.0) [facility] RDW 16.2 % (10.5-14.5) H [facility] PLT 167 10*3/uL (150-450) [facility] MPV 8.8 fL (7.1-10.7) [facility] ID Date Data Source [id number] 03/31/2021 08:41:39 AM EDT [facility] Name Value Range Interpretation Code Description Data Ema rce(s) Supporting Document(s) POC GLUCOSE 122 mg/dL (70-99) H [facility] PERFORMED BY CLINICAL STAFF ID Date Data Source [id number] 03/30/2021 04:54:35 PM EDT [facility] Name Value Range Interpretation Code Description Data Ema rce(s) Supporting Document(s) POC GLUCOSE 174 mg/dL (70-99) H [facility] PERFORMED BY CLINICAL STAFF ID Date Data Source [id number] 03/30/2021 12:43:48 PM EDT [facility] Name Value Range Interpretation Code Description Data Ema rce(s) Supporting Document(s) POC GLUCOSE 167 mg/dL (70-99) H [facility] NOTIFIED NURSEPERFORMED BY CLINICAL S TAFF ID Date Data Source [id number] 03/30/2021 12:39:34 PM EDT [facility] Name Value Range Interpretation Code Description Data Ema rce(s) Supporting Document(s) WBC 3.2 10*3/uL (4.1-11.0) L [facility] [place] RBC 2.36 10*6/uL (4.60-6.10) L [facility] HGB 6.6 g/dL (13.5-18.0) L [facility] RESULT(S) CALLED TO AND READ BACK BYVirtual Restaurants ICA 4S AT 1237 ON 03/30/[place] [id number] HCT 19.9 % (41.0-53.0) L [facility] PERFORMED AT [address] [place] [id number](S) CALLED TO AND READ BACK BY[employer] 4S AT 1237 [place] 03/30/[place] [address] MCV 84.3 fL (80.0-95.0) [facility] MCH 27.9 pg (27.0-32.0) [facility] MCHC 33.1 g/dL (32.0-36.0) [facility] RDW 16.8 % (10.5-14.5) H [facility] PLT 141 10*3/uL (150-450) L [facility] MPV 9.3 fL (7.1-10.7) [facility] ID Date Data Source [id number] 03/30/2021 08:35:32 AM EDT [facility] Name Value Range Interpretation Code Description Data Ema rce(s) Supporting Document(s) POC GLUCOSE 119 mg/dL (70-99) H [facility] NOTIFIED NURSEPERFORMED BY CLINICAL S TAFF ID Date Data Source [id number] 03/30/2021 05:31:19 AM EDT [facility] Name Value Range Interpretation Code Description Data Ema rce(s) Supporting Document(s) URINE WBC (0-5) [facility] URINE RBC (0-2) [facility] BACTERIA 2+ [HPF] [facility] ID Date Data Source [id number] 03/30/2021 05:05:22 AM EDT [facility] Name Value Range Interpretation Code Description Data Ema rce(s) Supporting Document(s) COLOR [facility] PERFORMED AT [address] [facility] [address] APPEARANCE [facility] SPEC GRAV URINE 1.011 (1.003-1.030) [facility] PH URINE 6.0 (5.0-7.5) [facility] LEUK ESTERASE (NEG) [facility] CRITERIA FOR CULTURE NOT MET.CULTURE CAN BE ADDED WITHIN 36 HOURS OFCOLLECTION. NITRITE URINE (NEG) [facility] PROTEIN URINE (NEG) [facility] GLUCOSE URINE (NEG) [facility] KETONE URINE (NEG) [facility] [place] UROBILINOGEN 0.2 mg/dL (0-1.0) [facility] [place] BILIRUBIN URINE (NEG) [facility] BLOOD/HGB URINE (NEG) A [facility] ID Date Data Source [id number] 03/31/2021 12:30:00 AM EDT [facility] [place] [id number] PATIENT NAME: EL LINARES OF : 2REPORT: ADMISSION NOTEPATIENT NUMBER: [id number] STATUS: SDMEDICAL RECORD NUMBER: [id number] OF ADMISSION: 1ROOM: 02 PRIMARY CARE PROVIDER: Анна Braun MD UROLOGIST: Dr. Walker. The patient also follows up with [facility]. CHIEF COMPLAINTS: Recurrent bleeding from the ostomy. HISTORY OF PRESENT ILLNESS: 80-year-old unfortunate male with history of prior bladder cancer requiring a radical cystoprostatectomy with ileal conduit and recently diagnosed hepatocellular carcinoma and scheduled to receive radiation therapy at [facility] presented to the ED with reports of recurrent bleeding from ostomy since Thursday morning. The patient has had multiple episodes of this and was discharged from [facility] in 03/12/2021 with the similar episode requiring [...] portal vein thrombosis, pending radiation therapy at [facility].6. Chronic ascites, on diuretics.7. Recurrent bleeding [...] normal.WBC of 4, H and H of / with platelets of 173. ASSESSMENT AND PLAN: 80-year-old unfortunate male with history of bladder cancer requiring ileal conduit, recently diagnosed hepatocellular carcinoma with liver cirrhosis with ascites and recurrent bleeding from the ostomy, discharged from [facility] about three weeks ago and required pressure [...] MD Dictated: 03/30/2021 3:44DT: 03/30/2021 3:51Job #: [id number]: Анна Braun MD NOTE: [facility] computer generated reports are not confirmed orauthenticated unless they are signed by the providerElectronically Authenticated and Edited by:GARETH MONTANA MD on 03/31/2021 12:30 AM EDT Name Value Range Interpretation Code Description Data Ema rce(s) Supporting Document(s) ID Date Data Source [id number] 03/30/2021 01:21:00 AM EDT [facility] Name Value Range Interpretation Code Description Data Ema rce(s) Supporting Document(s) SARS coronavirus 2 RNA [Presence] in Res piratory specimen by JUSTEN with probe detection NOT DETECTED [place] This lab was reported by [facility]. ID Date Data Source [id number] 03/30/2021 09:28:37 AM EDT [facility] Name Value Range Interpretation Code Description Data Ema rce(s) Supporting Document(s) SPECIMEN DESCRIPTION [facility] COVID19 RESULT (NDET) Lab [facility] THIS ASSAY AMPLIFIES AND DETECTSTHE TARG ET RNA USING REAL-TIME PCR.TESTING PERFORMED ON THE [employer] COMMENT Lab [facility] UNDER AN EMERGENCY USE AUTHORIZATION(EUA ) FOR THE DETECTION AND/OR DIAGNOSISOF THE VIRUS THAT CAUSES COVID-19.NEGATIVE 2019_NCOV RT-PCR RESULTS DONOT PRECLUDE 2019_NCOV INFECTION ANDSHOULD NOT BE USED THE SOLE BASISFOR PATIENT MANAGEMENT DECISIONS. FIRST TEST [facility] SYMPTOMATIC [facility] DATE OF SYMPT ONSET [facility] HOSPITALIZED [facility] [place] [facility] CONGREGATE CARE SET [facility] ID Date Data Source [id number] 03/29/2021 11:53:30 PM EDT [facility] SPEC EXP DATE 1PATI ENT ABO/Rh A POSITIVEANTIBODY SCREEN NEGATIVETESTING SITE PERFORMED AT [address] [place], [place] [address]OOD BANK COMMENT BLOOD TYPE CONFIRMED. Name Value Range Interpretation Code Description Data Ema rce(s) Supporting Document(s) TYPE AND SCREEN [facility] PATIENT ABO/Rh A POSITIVE ID Date Data Source [id number] 03/29/2021 11:10:22 PM EDT [facility] Name Value Range Interpretation Code Description Data Ema rce(s) Supporting Document(s) TOTAL PROTEIN 7.0 g/dL (6.4-8.2) [facility] ALBUMIN 2.2 g/dL (3.2-4.5) L [facility] GLOBULIN 4.8 g/dL (2.7-4.3) H [facility] ALB/GLOB RATIO 0.5 RATIO [facility] BILIRUBIN,TOTAL 0.4 mg/dL (0.0-1.0) [facility] PLEASE NOTE:Total bilirubin results may be falselyelevated in patients taking Eltrombopag. BILIRUBIN,CONJUGATED 0.2 mg/dL (0.0-0.3) [facility] BILIRUBIN,UNCONJ. 0.2 mg/dL (0.0-0.7) [facility] ALKALINE PHOSPHATASE 177 U/L (45-117) H [facility] AST (SGOT) 85 U/L (11-39) H [facility] ALT (SGPT) 69 U/L (12-78) [facility] ID Date Data Source [id number] 03/29/2021 11:10:22 PM EDT [facility] Name Value Range Interpretation Code Description Data Ema rce(s) Supporting Document(s) TROPONIN I <0.05 ng/mL (<0.05) [facility] [place] Less than 0.05: Myocardial injury unlike lyGreater than or equal to 0.05: Highly suggestive of myocardial injuryCorrelation with rise and/or fall ofserial troponins, clinical symptomsand ECG changes is necessary. ID Date Data Source [id number] 03/29/2021 11:10:22 PM EDT [facility] Name Value Range Interpretation Code Description Data Ema rce(s) Supporting Document(s) SODIUM 137 mmol/L (136-145) [facility] POTASSIUM 4.7 mmol/L (3.6-5.2) [facility] CHLORIDE 105 mmol/L (100-108) [facility] CO2 22 mmol/L (22-31) [facility] ANION GAP 10 mmol/L (7-16) [facility] UREA NITROGEN 39 mg/dL (7-24) H [facility] CREATININE 1.51 mg/dL (0.80-1.30) H [facility] BUN/CREAT RATIO 25.8 RATIO (10.0-20.0) H [facility] GLUCOSE 163 mg/dL (70-99) H [facility] CALCIUM 10.0 mg/dL (8.4-10.2) [facility] GFR 45 ml/min/1.73m2 (>59) L [facility] GFR ( AMER) 54 ml/min/1.73m2 (>59) L [facility] GFR INTERPRETATION [facility] --NORMAL KIDNEY FUNCTION OR MILD DISEASE - GFR >OR= 60CHRONIC KIDNEY DISEASE - GFR 15 - 59RENAL FAILURE - GFR <15 Est. GFR calculation based on the MDRDstudy equation, which assumes a steadystate for creatinine. Est. GFR should notbe used for medication dosing. ID Date Data Source [id number] 03/29/2021 10:52:36 PM EDT [facility] Name Value Range Interpretation Code Description Data Ema rce(s) Supporting Document(s) PT 11.6 s (9.2-11.9) [facility] PERFORMED AT [address] [facility] [address] INR 1.11 [facility] SUGGESTED THERAPEUTIC RANGES USING INR F ORSTABILIZED ANTICOAGULATED PATIENTS:STANDARD DOSE THERAPY INR 2.0-3.0 DVT, PE, PREVENT DVT OR EMBOLISMHIGH DOSE THERAPY INR 2.5-3.5 PREVENT EMBOLISM FROM MECHANICAL HEART VALVE ID Date Data Source [id number] 03/29/2021 10:43:14 PM EDT [facility] Name Value Range Interpretation Code Description Data Ema rce(s) Supporting Document(s) WBC 3.5 10*3/uL (4.1-11.0) L [facility] [place] RBC 2.67 10*6/uL (4.60-6.10) L [facility] HGB 7.3 g/dL (13.5-18.0) L [facility] HCT 22.4 % (41.0-53.0) L [facility] MCV 83.9 fL (80.0-95.0) [facility] MCH 27.4 pg (27.0-32.0) [facility] MCHC 32.7 g/dL (32.0-36.0) [facility] RDW 16.6 % (10.5-14.5) H [facility] PLT 173 10*3/uL (150-450) [facility] MPV 9.1 fL (7.1-10.7) [facility] NEUT % 71.2 % (35.0-75.0) [facility] LYMPH % 8.1 % (16.0-52.0) L [facility] MONO % 12.1 % (0.0-8.0) H [facility] EOS % 6.5 % (0.0-5.0) H [facility] BASO % 2.1 % (0.0-4.0) [facility] NEUT # 2.5 10*3/uL (1.8-7.7) [facility] LYMPH # 0.3 10*3/uL (1.2-4.8) L [facility] MONO # 0.4 10*3/uL (0.0-0.8) [facility] Eosinophils [#/volume] in Blood by Automated count 0.2 10*3/uL (0.0-0 .5) [facility] BASO # 0.1 10*3/uL (0.0-0.2) [facility] ID Date Data Source [id number] 03/27/2021 01:51:59 PM EDT [facility] THORAX WITH CONTRAST [id number] RESUL TInterpreted by:Hilario Bautista, MDCT thorax.INDICATION: Hepatocellular [...] rce(s) Supporting Document(s) ID Date Data Source [id number] 03/20/2021 09:37:00 AM EDT [facility] ([facility]) Name Value Range Interpretation Code Description Data Ema rce(s) Supporting Document(s) Glucose [Presence] in Urine Laboratory test result [facility] ([facility] MD) ostomy bag Protein [Presence] in Urine by Test strip Laboratory test result [facility] ([facility]) ostomy bag Ua Leuko Laboratory test result ME DENT ([facility]) ostomy bag Ua Nitrite Laboratory test result ME DENT ([facility]) ostomy bag Blood [Presence] in Urine by Visual Laboratory test result [facility] ([facility]) ostomy bag Ketones [Presence] in Urine by Test strip Laboratory test result [facility] ([facility]) ostomy bag Color of Urine Laboratory test result [facility] ([facility]) ostomy bag Clarity of Urine Laboratory test result [facility] ([facility]) ostomy bag Ua Specific [place] 1.010 1.003-1.030 MEDE NT ([facility]) ostomy bag pH of Urine by Test strip 7.0 5.0-7.5 [facility] ([facility]) ostomy bag Bilirubin.total [Presence] in Urine by Test strip Laboratory test res ult [facility] ([facility]) ostomy bag Urobilinogen [Mass/volume] in Urine by Test strip 0.2 E.U./dL 0.0-1.0 [facility] ([facility]) ostomy bag ID Date Data Source [id number] 03/15/2021 03:57:13 PM EDT [facility] Name Value Range Interpretation Code Description Data Ema rce(s) Supporting Document(s) Progress Note [facility] WNVHWj8mWzNJTxRr76/OROggTZOay9OcXUxzZEt9UNchTEJzP1BnPHR2kC6jHAK5YLyONbCdDbXiLGC4 lbm [file] AgICAgICAgICAgICAgICAgICAgICAgICAgICAgICAgICAgICAgICAgICAgICAgICAgICAgICAgDQogIC AgICAgICAgICAgICAgICAgICAgICAgICAgICAgICAg ICAgICAgICAgICAgICAgICAgICAgICAgICAgICAgICAgICAgICAgICAgICAgICAgICAgICAgICAgICAg ICAgICAgDQogICAgICAgICAgICAgICAgICAgICAgICAgICAgICAgICAgICAgICAgICAgICAgICAgICAg ICAgICAgICAgICAgICAgICAgICAgICAgICAgICAgIC AgICAgICAgICAgICAgICAgDQogICAgICAgICAgICAgICAgICAgICAgICAgICAgICAgICAgICAgICAgIC AgICAgICAgICAgICAgICAgICAgICAgICAgICAgICAgICAgICAgICAgICAgICAgICAgICAgICAgICAgDQ ogICAgICAgICAgICAgICAgICAgICAgICAgICAgICAg ICAgICAgICAgICAgICAgICAgICAgICAgICAgICAgICAgICAgICAgICAgICAgICAgICAgICAgICAgICAg ICAgICAgICAgDQogICAgICAgICAgICAgICAgICAgICAgICAgICAgICAgICAgICAgICAgICAgICAgICAg ICAgICAgICAgICAgICAgICAgICAgICAgICAgICAgIC AgICAgICAgICAgICAgICAgICAgDQogICAgICAgICAgICAgICAgICAgICAgICAgICAgICAgICAgICAgIC AgICAgICAgICAgICAgICAgICAgICAgICAgICAgICAgICAgICAgICAgICAgICAgICAgICAgICAgICAgIC AgDQogICAgICAgICAgICAgICAgICAgICAgICAgICAg ICAgICAgICAgICAgICAgICAgICAgICAgICAgICAgICAgICAgICAgICAgICAgICAgICAgICAgICAgICAg ICAgICAgICAgICAgDQogICAgICAgICAgICAgICAgICAgICAgICAgICAgICAgICAgICAgICAgICAgICAg ICAgICAgICAgICAgICAgICAgICAgICAgICAgICAgIC AgICAgICAgICAgICAgICAgICAgICAgDQogICAgICAgICAgICAgICAgICAgICAgICAgICAgICAgICAgIC AgICAgICAgICAgICAgICAgICAgICAgICAgICAgICAgICAgICAgICAgICAgICAgICAgICAgICAgICAgIC HbDEDtFMa7F6fwSDBdBUBzMR5eLCd5Oc0+DQoNCmVu TIN6izWpfB0RZC8ua4ExPUqzXGCbg2EgZBl4DM1RFLBfINgiJV3POZbxxd1OTHBmGIIcbTYJx3dzIlUh LDH4TXArEawtJJ9GARQlJ3axzpIqAWObZFJDUM2XNbMaQ5JmgY13VWKPGr3+UKzqlsPcLekPPlN5RQZw g1YcOMi2BX2XEQRoYswsl7HzLnToGHNAEAqhUD7WVB S6HNCwMDGqSu9HMQEkW356dkJmUR7PCq6URfBjZF1njd3AZwRdVFSjNyvDUlf7OXinDX6IpNUhXVhKwg 8asaGxviSNn3YfkgLupVQEOASskQpmph9mW96gEFfgo2pwQBMBPSAkgRShSY1gDL7fYZAzEIKzIeY1HE FXWC2VZUHkLWZlhDNhBMRmDDNIWV1ZITbsSRE8UPOr gnJfpVNmMSqwUT6QZWXzruNdYFoyRHCOOYn+Kf3YIG7vr3JsAZdoHULtXA9hhb3BDEaHGtGwT0T9qOVm Q2V5ALyjMx7XXHIvIPHuBHzgQIGKDCpuYL7ZPV9fkbZ8ZD8BrPMnOUKcKJUsqSBqWJg7J97loHIwTZss DI1OPKO+Earl+Gc9QYXTqYHLoUKYoUePjKERGJgAeY3 PlI1NSn7IlK0ZeST80aRqspfErCSfrKS6HTI6mMFJuNXSQPF6UnCGzbO1mhiVqFSJjGEIAEvXhZ95xuV TdVLHkJNB6NLMaOw8LKUDnH2AcpwEgwDsfkgVrLPOhRSPQXZ5TNCzrhlGopHHoaNfjKD07hPvvPF5OFr 0WJfQdKT6smm9RdWFdDo7WOYDfDg7DCIEzZTVbFMEc LIU3EJSfSgBeYTobEMIzHMPfUJG7OTFqJUKwVH3HAgBlUDJrXJyjMWkqKKShXWAdeb4UKHNwUZNzVIVc HiVlWVPuYATwQVinQPEvUSOrWMR4HSYnGVRuKP8PSkMqTSXhDFSsHGDiKRHoLAShbb1GOABjRYVpVkSd DOTdYXRyWBIdCRhzKLWjEGSmEwr8QPZsMGUdQY1IWv JxKEYjOWE2OyIfZBCsNHDeuj8LFQQkAPAgIjw4OrRePJXoYGBnYNotJNAjSPJ6IzWsPWAzWYZwRQ8RAi SlZTTqNLW9DCCpXMNwWETrll4ZTIFdJHIwOONyTKYaHZVqSUBkGWmeFZHcYJV3QWU3IXYbMCWjQL1UAc KdDWBxWOJ6JnJuVFKbYPPoxb0UYBGbKDBkKzt5BDJn JPPtXZUzPWakSWBoECP9CzVeWXKfKVEqID1ESrPmYMBxFLujWfAeONZhYBWgcx9COWStSRWoTwy7KfUn GKDeMXTbUMjfQJUbSQM6TuK7JRQnWYFqAK2HGiToVBLpDDgjCdLvTUDeYTGdlm6BGIBqUGSyHWIyBPCg LAYvKTIcPXi8hgTzlCTiCHg5KH8GZ6GjblDsPzKUDk 7He016ZAIfNDVsVv7RE8mnFy1kDPWgOTHNOx4CFLc2SNeqAVGoYVRrDSBwP7QrODXpX0BtPtFqASU4EG E2NDc+GKmeGLU0SENvBEKkJUXiFFE0UQK6PYG8EJD0RYH8EOS2Sb9yHRGWBj6+DQpzdGFydHhyZWYNCj W1Uzo8OIdvOHRFXk2X ID Date Data Source [id number] 03/12/2021 12:24:23 PM EDT [facility] Name Value Range Interpretation Code Description Data Ema rce(s) Supporting Document(s) POC GLUCOSE 76 mg/dL (70-99) [facility] NOTIFIED NURSEPERFORMED BY CLINICAL S TAFF ID Date Data Source [id number] 03/12/2021 12:18:21 PM EDT [facility] Name Value Range Interpretation Code Description Data Ema rce(s) Supporting Document(s) POC GLUCOSE 76 mg/dL (70-99) [facility] PERFORMED BY CLINICAL STAFF ID Date Data Source [id number] 03/12/2021 08:29:05 AM EDT [facility] Name Value Range Interpretation Code Description Data Ema rce(s) Supporting Document(s) SODIUM 142 mmol/L (136-145) [facility] POTASSIUM 3.9 mmol/L (3.6-5.2) [facility] CHLORIDE 112 mmol/L (100-108) H [facility] CO2 24 mmol/L (22-31) [facility] ANION GAP 6 mmol/L (7-16) L [facility] UREA NITROGEN 20 mg/dL (7-24) [facility] CREATININE 1.06 mg/dL (0.80-1.30) [facility] BUN/CREAT RATIO 18.9 RATIO (10.0-20.0) [facility] GLUCOSE 74 mg/dL (70-99) [facility] CALCIUM 9.2 mg/dL (8.4-10.2) [facility] GFR >60 ml/min/1.73m2 (>59) [facility] GFR ( AMER) >60 ml/min/1.73m2 (>59) [facility] GFR INTERPRETATION [facility] --NORMAL KIDNEY FUNCTION OR MILD DISEASE - GFR >OR= 60CHRONIC KIDNEY DISEASE - GFR 15 - 59RENAL FAILURE - GFR <15 Est. GFR calculation based on the MDRDstudy equation, which assumes a steadystate for creatinine. Est. GFR should notbe used for medication dosing. ID Date Data Source [id number] 03/12/2021 07:46:51 AM EDT [facility] Name Value Range Interpretation Code Description Data Ema rce(s) Supporting Document(s) WBC 3.4 10*3/uL (4.1-11.0) L [facility] [place] RBC 2.76 10*6/uL (4.60-6.10) L [facility] HGB 7.8 g/dL (13.5-18.0) L [facility] HCT 23.4 % (41.0-53.0) L [facility] MCV 84.9 fL (80.0-95.0) [facility] MCH 28.1 pg (27.0-32.0) [facility] MCHC 33.1 g/dL (32.0-36.0) [facility] RDW 16.0 % (10.5-14.5) H [facility] PLT 152 10*3/uL (150-450) [facility] MPV 8.2 fL (7.1-10.7) [facility] NEUT % 73.0 % (35.0-75.0) [facility] LYMPH % 6.1 % (16.0-52.0) L [facility] MONO % 13.2 % (0.0-8.0) H [facility] EOS % 5.8 % (0.0-5.0) H [facility] BASO % 1.9 % (0.0-4.0) [facility] NEUT # 2.5 10*3/uL (1.8-7.7) [facility] LYMPH # 0.2 10*3/uL (1.2-4.8) L [facility] MONO # 0.4 10*3/uL (0.0-0.8) [facility] Eosinophils [#/volume] in Blood by Automated count 0.2 10*3/uL (0.0-0 .5) [facility] BASO # 0.1 10*3/uL (0.0-0.2) [facility] ID Date Data Source [id number] 03/12/2021 05:39:53 AM EDT [facility] Name Value Range Interpretation Code Description Data Ema rce(s) Supporting Document(s) POC GLUCOSE 78 mg/dL (70-99) [facility] NOTIFIED NURSEPERFORMED BY CLINICAL S TAFF ID Date Data Source [id number] 03/11/2021 11:38:09 PM EDT [facility] Name Value Range Interpretation Code Description Data Ema rce(s) Supporting Document(s) POC GLUCOSE 84 mg/dL (70-99) [facility] NOTIFIED NURSEPERFORMED BY CLINICAL S TAFF ID Date Data Source [id number] 03/12/2021 10:21:00 AM EDT [facility] DATE OF EXAM: 03/[facility] ABDOMEN WITH AND WITHOUT IV [...] greater than right. Professional interpretation performed at [facility] .End of diagnostic report for accession: [id number] Interpreted: Shahnaz Ramos MDTranscribed: 03/12/2021 10:01 AMSigned: 03/12/2021 10:21 AM Shahnaz Ramos MD [facility] # [id number] BILL # [id number] Name Value Range Interpretation Code Description Data Ema rce(s) Supporting Document(s) ID Date Data Source [id number] 03/11/2021 06:13:30 PM EDT [facility] [place] Name Value Range Interpretation Code Description Data Ema rce(s) Supporting Document(s) POC GLUCOSE 96 mg/dL (70-99) [facility] PERFORMED BY CLINICAL STAFF ID Date Data Source [id number] 03/12/2021 03:16:01 PM EDT [facility] Name Value Range Interpretation Code Description Data Ema rce(s) Supporting Document(s) AFP-TUMOR MARKER @ 31.7 ng/mL (<6.0) H [facility] ASSAY BY IMMUNOCHEMILUMINOMETRIC ASSAYON THE SIEMENS IMMULITE 2000 XPi. VALUESOBTAINED WITH DIFFERENT METHODS OR KITSCANNOT BE USED INTERCHANGEABLY FOR PATIENTMONITORING. RESULTS CANNOT BE INTERPRETEDAS ABSOLUTE EVIDENCE OF THE PRESENCE ORABSENCE OF MALIGNANCY. THE TEST IS NOTINTERPRETABLE IN . AFP CAN BE INCREASED IN A VARIETY OFBENIGN DISEASES. SPECIFICITY FOR THE DETECTION OF MALIGNANCY INCREASES WITHINCREASING LEVELS. ID Date Data Source [id number] 03/11/2021 03:39:07 PM EDT [facility] Name Value Range Interpretation Code Description Data Ema rce(s) Supporting Document(s) APTT 29.6 s (22.0-34.3) [facility] ID Date Data Source [id number] 03/11/2021 03:39:07 PM EDT [facility] [place] Name Value Range Interpretation Code Description Data Ema rce(s) Supporting Document(s) PT 12.2 s (9.2-11.9) H [facility] INR 1.17 [facility] SUGGESTED THERAPEUTIC RANGES USING INR F ORSTABILIZED ANTICOAGULATED PATIENTS:STANDARD DOSE THERAPY INR 2.0-3.0 DVT, PE, PREVENT DVT OR EMBOLISMHIGH DOSE THERAPY INR 2.5-3.5 PREVENT EMBOLISM FROM MECHANICAL HEART VALVE ID Date Data Source [id number] 03/11/2021 03:32:09 PM EDT [facility] [place] Name Value Range Interpretation Code Description Data Ema rce(s) Supporting Document(s) WBC 4.1 10*3/uL (4.1-11.0) [facility] [place] RBC 2.98 10*6/uL (4.60-6.10) L [facility] HGB 8.4 g/dL (13.5-18.0) L [facility] HCT 25.6 % (41.0-53.0) L [facility] PATIENT TRANSFUSED MCV 85.7 fL (80.0-95.0) [facility] MCH 28.2 pg (27.0-32.0) [facility] MCHC 32.9 g/dL (32.0-36.0) [facility] RDW 15.9 % (10.5-14.5) H [facility] PLT 177 10*3/uL (150-450) [facility] MPV 8.4 fL (7.1-10.7) [facility] ID Date Data Source [id number] 03/11/2021 12:40:27 PM EDT [facility] [place] Name Value Range Interpretation Code Description Data Ema rce(s) Supporting Document(s) POC GLUCOSE 99 mg/dL (70-99) Lab [facility] PERFORMED BY CLINICAL STAFF ID Date Data Source [id number] 03/11/2021 07:56:19 AM EDT [facility] Name Value Range Interpretation Code Description Data Ema rce(s) Supporting Document(s) SODIUM 140 mmol/L (136-145) [facility] POTASSIUM 4.0 mmol/L (3.6-5.2) [facility] CHLORIDE 110 mmol/L (100-108) H [facility] CO2 25 mmol/L (22-31) [facility] ANION GAP 5 mmol/L (7-16) L [facility] UREA NITROGEN 17 mg/dL (7-24) [facility] CREATININE 0.98 mg/dL (0.80-1.30) [facility] BUN/CREAT RATIO 17.3 RATIO (10.0-20.0) [facility] GLUCOSE 80 mg/dL (70-99) [facility] CALCIUM 9.5 mg/dL (8.4-10.2) [facility] GFR >60 ml/min/1.73m2 (>59) [facility] GFR ( AM) >60 ml/min/1.73m2 (>59) [facility] GFR INTERPRETATION [facility] --NORMAL KIDNEY FUNCTION OR MILD DISEASE - GFR >OR= 60CHRONIC KIDNEY DISEASE - GFR 15 - 59RENAL FAILURE - GFR <15 Est. GFR calculation based on the MDRDstudy equation, which assumes a steadystate for creatinine. Est. GFR should notbe used for medication dosing. ID Date Data Source [id number] 03/11/2021 07:38:12 AM EDT [facility] Name Value Range Interpretation Code Description Data [facility](s) Supporting Document(s) WBC 3.1 10*3/uL (4.1-11.0) L [facility] RBC 2.46 10*6/uL (4.60-6.10) L [facility] HGB 6.9 g/dL (13.5-18.0) L [facility] RESULT(S) CALLED TO AND READ BACK BYMACKENZIES Dony ON 5SIR AT 0736 ON 03/11/21 [place] [address] HCT 20.7 % (41.0-53.0) L [facility] MCV 84.4 fL (80.0-95.0) [facility] MCH 27.9 pg (27.0-32.0) [facility] MCHC 33.0 g/dL (32.0-36.0) [facility] RDW 16.0 % (10.5-14.5) H [facility] PLT 154 10*3/uL (150-450) [facility] MPV 8.6 fL (7.1-10.7) [facility] ID Date Data Source [id number] 03/11/2021 05:49:03 AM EDT [facility] Name Value Range Interpretation Code Description Data Ema rce(s) Supporting Document(s) POC GLUCOSE 89 mg/dL (70-99) [facility] NOTIFIED NURSEPERFORMED BY CLINICAL S TAFF ID Date Data Source [id number] 03/11/2021 12:23:19 AM EDT [facility] Name Value Range Interpretation Code Description Data Ema rce(s) Supporting Document(s) POC GLUCOSE 105 mg/dL (70-99) H [facility] NOTIFIED NURSEPERFORMED BY CLINICAL S TAFF ID Date Data Source [id number] 03/10/2021 04:00:00 PM EDT [facility] Name Value Range Interpretation Code Description Data Ema rce(s) Supporting Document(s) SARS coronavirus 2 RNA [Presence] in Res piratory specimen by JUSTEN with probe detection NOT DETECTED [facility] This lab was reported by [facility]. ID Date Data Source [id number] 03/11/2021 01:47:06 PM EDT [facility] Name Value Range Interpretation Code Description Data Ema rce(s) Supporting Document(s) SPECIMEN DESCRIPTION [facility] COVID 19 RESULT (NDET) [facility] NEGATIVE COVID-19 RESULTS DONOT PRECLUDE COVID-2019 INFECTION ANDSHOULD NOT BE USED THE SOLE BASISFOR PATIENT MANAGEMENT DECISIONS. COMMENT [facility] THE [place] FDA HAS MADE THIS TEST AVAILENZO HUBBARDER AN EMERGENCY USE AUTHORIZATION(EUA) FOR THE DETECTION AND/OR DIAGNOSISOF THE VIRUS THAT CAUSES COVID-19.THIS ASSAY AMPLIFIES AND DETECTS TARGETDNA USING BRASS BOBBIN WINDER- MEDIATEDAMPLIFICATIONTESTING PERFORMED ON [employer] FIRST TEST [facility] EMPLOYED IN HLTHCARE [facility] SYMPTOMATIC [facility] Kwong DATE OF SYMPT ONSET [facility] HOSPITALIZED [facility] CONGREGATE CARE SET [facility] ID Date Data Source [id number] 03/12/2021 12:38:20 AM EDT [facility] PATIENT ABO/Rh A POSITIVEANT IBODY SCREEN NEGATIVESPEC EXP DATE 03/13/2021TESTING SITE PERFORMED AT [address] [place], [place] [address]OOD BANK COMMENT BLOOD TYPE CONFIRMED.UNIT NUMBER [id number] COMPONENT TYPE LEUKOPOOR RED CELLSUNIT DIVISION 00STATUS OF UNIT TRANSFUSEDUNIT TAG COMMENT EMERGENCY RELEASETRANSFUSION STATUS OK TO TRANSFUSECROSSMATCH RESULT COMPATIBLEUNIT NUMBER [id number] COMPONENT TYPE LEUKOPOOR RED CELLSUNIT DIVISION 00STATUS OF UNIT TRANSFUSEDTRANSFUSION STATUS OK TO TRANSFUSECROSSMATCH RESULT COMPATIBLE Name Value Range Interpretation Code Description Data Ema rce(s) Supporting Document(s) ID Date Data Source [id number] 03/10/2021 04:51:00 PM EDT [facility] DATE OF EXAM: 03/10/2021XAM: CT [...] exclude hepatocellular carcinoma. Professional interpretation performed at [facility] .End of diagnostic report for accession: [id number] Interpreted: Shahnaz Ramos MDTranscribed: 03/10/2021 04:36 PMSigned: 03/10/2021 04:51 PM Shahnaz Ramos MD [facility] ACC # [id number] BILL # [id number] Name Value Range Interpretation Code Description Data Ema rce(s) Supporting Document(s) ID Date Data Source [id number] 03/10/2021 02:00:09 PM EDT [facility] Name Value Range Interpretation Code Description Data Ema rce(s) Supporting Document(s) SODIUM 137 mmol/L (136-145) [facility] POTASSIUM 4.2 mmol/L (3.6-5.2) [facility] CHLORIDE 107 mmol/L (100-108) [facility] CO2 23 mmol/L (22-31) [facility] ANION GAP 7 mmol/L (7-16) [facility] UREA NITROGEN 20 mg/dL (7-24) [facility] CREATININE 1.15 mg/dL (0.80-1.30) [facility] BUN/CREAT RATIO 17.4 RATIO (10.0-20.0) [facility] GLUCOSE 198 mg/dL (70-99) H [facility] CALCIUM 9.7 mg/dL (8.4-10.2) [facility] GFR >60 ml/min/1.73m2 (>59) [facility] GFR ( AMER) >60 ml/min/1.73m2 (>59) [facility] GFR INTERPRETATION [facility] --NORMAL KIDNEY FUNCTION OR MILD DISEASE - GFR >OR= 60CHRONIC KIDNEY DISEASE - GFR 15 - 59RENAL FAILURE - GFR <15 Est. GFR calculation based on the MDRDstudy equation, which assumes a steadystate for creatinine. Est. GFR should notbe used for medication dosing. ID Date Data Source [id number] 03/10/2021 02:00:09 PM EDT [facility] Name Value Range Interpretation Code Description Data Ema rce(s) Supporting Document(s) TOTAL PROTEIN 6.4 g/dL (6.4-8.2) [facility] ALBUMIN 2.1 g/dL (3.2-4.5) L [facility] GLOBULIN 4.3 g/dL (2.7-4.3) [facility] ALB/GLOB RATIO 0.5 RATIO [facility] BILIRUBIN,TOTAL 0.6 mg/dL (0.0-1.0) [facility] PLEASE NOTE:Total bilirubin results may be falselyelevated in patients taking Eltrombopag. BILIRUBIN,CONJUGATED 0.3 mg/dL (0.0-0.3) [facility] BILIRUBIN,UNCONJ. 0.3 mg/dL (0.0-0.7) [facility] ALKALINE PHOSPHATASE 150 U/L (45-117) H [facility] AST (SGOT) 67 U/L (11-39) H [facility] ALT (SGPT) 59 U/L (12-78) [facility] ID Date Data Source [id number] 03/10/2021 01:44:30 PM EDT [facility] Name Value Range Interpretation Code Description Data Ema rce(s) Supporting Document(s) PT 12.2 s (9.2-11.9) H [facility] INR 1.17 [facility] SUGGESTED THERAPEUTIC RANGES USING INR F ORSTABILIZED ANTICOAGULATED PATIENTS:STANDARD DOSE THERAPY INR 2.0-3.0 DVT, PE, PREVENT DVT OR EMBOLISMHIGH DOSE THERAPY INR 2.5-3.5 PREVENT EMBOLISM FROM MECHANICAL HEART VALVE ID Date Data Source [id number] 03/10/2021 01:33:49 PM EDT [facility] Name Value Range Interpretation Code Description Data Ema rce(s) Supporting Document(s) WBC 4.1 10*3/uL (4.1-11.0) [facility] RBC 2.70 10*6/uL (4.60-6.10) L [facility] HGB 7.3 g/dL (13.5-18.0) L [facility] HCT 23.1 % (41.0-53.0) L [facility] MCV 85.4 fL (80.0-95.0) [facility] MCH 27.1 pg (27.0-32.0) [facility] MCHC 31.8 g/dL (32.0-36.0) L [facility] RDW 16.6 % (10.5-14.5) H [facility] PLT 164 10*3/uL (150-450) [facility] MPV 8.7 fL (7.1-10.7) [facility] NEUT % 73.6 % (35.0-75.0) [facility] LYMPH % 7.3 % (16.0-52.0) L [facility] MONO % 13.3 % (0.0-8.0) H [facility] EOS % 4.7 % (0.0-5.0) [facility] BASO % 1.1 % (0.0-4.0) [facility] NEUT # 3.0 10*3/uL (1.8-7.7) [facility] LYMPH # 0.3 10*3/uL (1.2-4.8) L [facility] MONO # 0.5 10*3/uL (0.0-0.8) [facility] Eosinophils [#/volume] in Blood by Automated count 0.2 10*3/uL (0.0-0 .5) [facility] BASO # 0.0 10*3/uL (0.0-0.2) [facility] ID Date Data Source [id number] 03/04/2021 08:31:14 PM EDT [facility] Name Value Range Interpretation Code Description Data Ema rce(s) Supporting Document(s) Progress Note [facility] UITAQc0fVxXUKbSa57/VXYavIDOig5UeSTphYVf3NPpmUECrQ0JdQXS9bU8eNNJ2CDaWXuTaRrJlOTK2 lbm [file] ICAgICAgICAgICAgICAgICAgICAgICAgICAgICAgIC EqOHWnMUTrSTCaNEGyMQVuNAZyZHUtQKTpBGCsQRCjDXUtPFDiIQQwLCRnEKXjVGDcFVUfWF7EZHMlOL AgICAgICAgICAgICAgICAgICAgICAgICAgICAgICAgICAgICAgICAgICAgICAgICAgICAgICAgICAgIC AgICAgICAgICAgICAgICAgICAgICAgICAgICAgICAg WTDbVF7QKXAyKWNiUJRlVOZxGQCdROBkAELsYZKzRLYcCRGeDJEmUUEoCHVtAGAwOUEhHEXfVQMjZZMc YNNbNVRpSEIaZMUoQYPfUJVxNGVeKPUsAWPwJAPmMRYyTZTjKMAxIUChSDExPM3AWMArGRYdYQQtXLAz ICAgICAgICAgICAgICAgICAgICAgICAgICAgICAgIC VhQAZaZXQsDXKoFSZePHSgCLWiQZAbSTXqCQFrDINuPFFiWWRdHQQqBHHcHXOeNMIzXXJjZLJuGA1HMC AgICAgICAgICAgICAgICAgICAgICAgICAgICAgICAgICAgICAgICAgICAgICAgICAgICAgICAgICAgIC AgICAgICAgICAgICAgICAgICAgICAgICAgICAgICAg BZDlAVVdXR0FFKEpNERcRKBtXLVfITStXGRiNLAgRFEzTFQnUJXmIWKwZBMbDQKoAYTiHQHwKEMoOLTu ZCSxGATwKBYmWVLnFRGhXREoNRBbRKQnGGGaFYZiHSBaXXLpWYTnPFTxMZDyZZBeVO3JQZZiAUWeDZGx ICAgICAgICAgICAgICAgICAgICAgICAgICAgICAgIC AgICAgICAgICAgICAgICAgICAgICAgICAgICAgICAgICAgICAgICAgICAgICAgICAgICAgICAgICAgIA 0KICAgICAgICAgICAgICAgICAgICAgICAgICAgICAgICAgICAgICAgICAgICAgICAgICAgICAgICAgIC AgICAgICAgICAgICAgICAgICAgICAgICAgICAgICAg OTUqRXTsSRTvYD0HIAYiDDBhWFTeZPNeSKDkSGSaBXRiPKHuMMBlHHJcEKXyDVWfZEZvBJQhQSRyAWNz UHLkYSLyZVNmABPqLMTjPTOsPBVuZTJlQIXyEHYqEHQrYAOjGRStPAYbTQOlYXFkOXXhJK8WZE06lZDc c1G8UTVnFH2tdzy/Ri7CUFowfcEfyEXpXB3NJtNlZL 1zjh5ALrQrED3nsy0AWPrLZiHfV4Z7hIRsIOAtESPZVaHjE09kEIxlOv94CGjoBRYmJwPyMAt0Cg2QGh GrU2iqPBTvDnD2XTYrJzLaJGhpWW0Vo5CefVOwZKz+Rr3BQT3bg4TpAFunJLJfZZ3gmz6LLBgIXuUrD9 PbkcL2ZVXjZWOcNw0PHSIzNBMliNFzFMTnVOSBZjCn Y0ImnD36ALRYNm8+IQjammSnQlbCPuYeOTNep0DbHZo3AL9FIJEhDXm3lOPqMYFdH1Fnu6WtCj87BLRr NocmXdSlsDniK7J7oUkvSZ5mQDQvNI4aPX7bFUPtUDUsMoXrUPFPST0MDUIrXXFedJDoJOEaWGDLUY6W EUszNKD3PIOvovHryZKjAGueVK7HATAiozNzSGqkLF BSDQo+Bi9BEA0vt3UuTDnhBEAvOC5zlv7FQZqMCpBwC5C7nHCfM6S8PDdvUk1VULNzQFXtROsvEOUAQH waUF9OQF9oqdG1GK7XdUWbTLVcCZMfcGSkWWz9O67ieAAbWKatNY9ABSE+Earl+Ri7ENMRfZQOqFKJiDp NqWAPEGsJhZ0IfP6MVo2HdF3RzIB25dYsqvsZgUFwb LB1DNU3bRDJbJVKCNT1YtAFchY6diaEcXZLdWRKOSlDyK72lmFZjJWVxIVM1XGTnQd0SNLTmS6CwcrOe jRcqixDmWMRlZJHRSC7OJWyleuQixHVzfSxwJR45sNglGU3OMx9ZNqOkOQ8uut7ZqIZgWa3ZUNOvSm8J GBFfJKVtVUXvNPV6VUFxBmOsVJerEFDpFIYePPE3HJ MjVKNaQL5VHhXhODOnFFX6PpYvMEDqFNWiwf1GQDWxSKBxGSQmEKLlMENgFXDoPWclQMBdSTQgZYV6UZ AzQIOaSB4ZHwBrRGIsGYL6VXyjNLZpIRWuli0CTRWbKZXePZb0UBEyJDWtXILnMXzdHEMmBSYiEMDwEJ DiWXKgOX6CAuGbFXRsFPRsBFGoAOFvMTUflb8PYTTm LROrLdZ9EoDuHRFtCFLhEZodBAEiPDT4RkU6SRPnROFlNB2ZDuRqBKYtQNW7AFWuOUUfAIOjnl4QPUUk XCYqGOOjTtTdAJShWNZpUWasNIDqVXR2UWx0FSByEGIeJN8QCeBoHHPdLMTsIKEqKQVdOMYlht5SWMYo FGGlFoZmTvStIIErWKOsBEqfLYGvEPK1DmHxIPWmAO DvKE8AZjIsHCOfGHM8AKuxLHMrIWNlsf2DKXHtHGMuBqQ3ONGnAPObGREzIDqqJALnLPW5AlI3CRWyTI VeJY4SHtShNSVzEOv6DMooEBLrXUGhbo0YGDIcHLOwBEr6MsXmPZZzVVYgHGc2kwIkvIKoPAa9EX5DF4 HnacTgApVUNe0Aa616ZLCfKCJaKu0NU3icWs0cXBCg IOLOEy6HRLc8EwMnLTE4V6F6RuVpJYUbNQAkMoKwMrRxYBXxXHFhSAH+IDwyZWUwZDQzZThiNTIwNjA5 CCMzZiTpJWCzVlKaEYW4LV3xVOUEKn5+HHpbsRLolJfvXMJXWmK9SCj0NBxbGKFCDm0R ID Date Data Source [id number] 03/04/2021 03:34:49 PM EDT [facility] Name Value Range Interpretation Code Description Data Ema rce(s) Supporting Document(s) Progress Note [facility] QGACOs7iKlRQCjNe98/PJHdpXWCfk7KmEKcoROx8QNzfWMCqP9ClYDY1oA5mXLZ2CWrBDeGnRzLnGAY1 lbm [file] ICAgICAgICAgICAgICAgICAgICAgICAgICAgICAgIC AgICAgICAgICAgICAgICAgDQogICAgICAgICAgICAgICAgICAgICAgICAgICAgICAgICAgICAgICAgIC AgICAgICAgICAgICAgICAgICAgICAgICAgICAgICAgICAgICAgICAgICAgICAgICAgICAgICAgICAgDQ ogICAgICAgICAgICAgICAgICAgICAgICAgICAgICAg ICAgICAgICAgICAgICAgICAgICAgICAgICAgICAgICAgICAgICAgICAgICAgICAgICAgICAgICAgICAg ICAgICAgICAgDQogICAgICAgICAgICAgICAgICAgICAgICAgICAgICAgICAgICAgICAgICAgICAgICAg ICAgICAgICAgICAgICAgICAgICAgICAgICAgICAgIC AgICAgICAgICAgICAgICAgICAgDQogICAgICAgICAgICAgICAgICAgICAgICAgICAgICAgICAgICAgIC AgICAgICAgICAgICAgICAgICAgICAgICAgICAgICAgICAgICAgICAgICAgICAgICAgICAgICAgICAgIC AgDQogICAgICAgICAgICAgICAgICAgICAgICAgICAg ICAgICAgICAgICAgICAgICAgICAgICAgICAgICAgICAgICAgICAgICAgICAgICAgICAgICAgICAgICAg ICAgICAgICAgICAgDQogICAgICAgICAgICAgICAgICAgICAgICAgICAgICAgICAgICAgICAgICAgICAg ICAgICAgICAgICAgICAgICAgICAgICAgICAgICAgIC AgICAgICAgICAgICAgICAgICAgICAgDQogICAgICAgICAgICAgICAgICAgICAgICAgICAgICAgICAgIC AgICAgICAgICAgICAgICAgICAgICAgICAgICAgICAgICAgICAgICAgICAgICAgICAgICAgICAgICAgIC AgICAgDQogICAgICAgICAgICAgICAgICAgICAgICAg ICAgICAgICAgICAgICAgICAgICAgICAgICAgICAgICAgICAgICAgICAgICAgICAgICAgICAgICAgICAg ICAgICAgICAgICAgICAgDQogICAgICAgICAgICAgICAgICAgICAgICAgICAgICAgICAgICAgICAgICAg ICAgICAgICAgICAgICAgICAgICAgICAgICAgICAgIC KbVQQaONNkAOTkIQFqTVCuJYHwHAHgECDhWRn2N0fhTIWfXXLrWI0rCCg4Rc0+HCuYFxHnVPZ2hdZmeZ 7WOJ0qy5QqOGjdQJRgb6SlRKs8SR0TFNCuMUjvVL8RYUejtr4TTCXnVFOyzMRKl0mhRfNqTIJ3SLKwFr vaXY4XCRRiY9umgrFyXNUdWKESXGhkNFMRRAjrPVUX ZHAkMWFcMwZvNUfyAY5Bg0TtvLS5RSw+Bd9NBE1wp0ZyBLqoFJGiPN9jqn8RFCxUFxXgI1RpayR8DVM7 SANjGm0ZUURfKWKyfHQaNHEoBKFGPrBrG4RuuT02SWRCOw2+OMityqRuTlaELsZ0MWHkv0CrRSg4MG9U GZNwATs9gHAhQDPmT6Ihe8VvJw74XDCaFymlF0Q1a7 OyrWQiQWsjUeB1POKeiMlkDOErLFZeUGNfLE3zRPCfIUJlYmQnXYDRBN0VYKEmJUGvfDKyRIWjTULMKS 6QBYomSUU3PJDfanPxpERpBDekCD6WXCHvcdGhFpxmHKDPNXy+Bs5ECG9pt4ZnGQbkJRNpTC2laz8YAH cCXhVsF4Z7nMWkV0I0NQkwYg7TLXQhJGYiJsZcVKLY VLboRP5IWY9sjaM4TF3AkSBwFRXnKIMepCYuKFw7S45hdCSsOXgtMQ5DFZB+Earl+Vg7CYDJhBBMkNOFx HmIrWIAKUgTlM7HvF5CVc0ZkB2HaIB13sRdgecNmTLawTY5GEM0kEFGeORMJXA4HxXVcfC3ylxFjYSOz SLTMHsXsJ39plCTcBFCpIWX6UZBrNq4BKIGmS7Jzow VkzCdnjpDoPKKhJKEIXW8UEIptnbTqwOYpsQjbSR51cYpbPA3OBb0YFsQcTM4ilc0EnHFvMk6CTQMcXT 8TNNWnKBMhDDGxJQK8XSEhQqMsBNteGYOvCRObEEG9CCMhMNWfXC8RRdReMAEkJnxqMOfnHZYxAOBbsl 9LUVDrJGCrYOctHGWxDMOyIMLtOLaiRQErYEPrGIW1 JPSgCXYuCB4HFuJjIOFqNWI8GCgyAGBuVDXxze3UAXXtPCMmUFMiRQBzSUZzDKApTVwdDJTxBVA0OJZ7 UJSoAKVsPU3DUhZjEQNhFCK2WdAlGMYkLKGxbt1SJCZqZWBnPDq7UYEiUHXgVMDmEUldKOZuHCIdMQY9 FMFgBBMxTF8ZMvHoXUGvOII5AHStXCAaTBHgqg2UZD BpEPMlNkbvSNCnZRFqUZKfDFwlXFWxRZMwFbU8LVDqEAJuOR9MEgMpZDVnMMX9RqCfSTLeDMEsqp4XIR LiAVMkWLD5LVHiVZMtMITjNPhoXURsNQK9ZWO3RXJmLJWtNV0FYnStQKGhUAVoJAthEYQgXDDkqy4CJK VyXLDxXQH1GcIoGJQnJJDxNVqwQYZaPQI7VAJ7COXg FVFaEX6WQtTyZOTlHnvuLPXcKPJiZJPipq8EMQKaAIBpWeL4HEXtVNMwNPRtDDsdOIBfOFS8GaDkPKCe YHFbNQ5SKuMhHTApPzc5UKsvYJAwXUUqtu8QUODtROFxYWhnEHNdQPYbKQMbUIzmYNLtGTP5BKw6ABGk QUOvDI2MZfPdYXVvFpeiXjrvMHXzOMDedy2SCUFdNF JwAOM0WVPjQUQeVSKjBSkrGTRlAZOzHPJhFCNiQORuIC6MGmYgNPJkKlOyFDEjSTQpZUIhjh7BCTJlNW AvOCR1MgIlRLKrQAYcTKc5zzBsyNQoVTf2ZH7FV7RqtvRjLmJHWo2Xq484EOZmFBEdCi6RS8udGb1zRJ MpEOXCLy9OGOa3RQEsOEFtPqqgWCMsUNP7JKY6JlZ5 MzRxNHxhIvh6EkF+JSvrGrKfBEZaU1B4ZvRxYdbxGBF7PuP1GgB4WJOpEnqyOD0bAKOAUu2+DQpzdGFy lQekROBAPdDcJFYgCNqdBBSLWg4L ID Date Data Source [id number] 02/28/2021 12:47:10 PM EDT [facility] Name Value Range Interpretation Code Description Data Ema rce(s) Supporting Document(s) Progress Note [facility] NUCSPf4vUuVZIlDt75/EMNzaDDXky9IpOEciIPx5QQwoXVOwO8KpHEI7sO7mAXV8WJbRYzMqSbZuUFVk lbm [file] CiAgICAgICAgICAgICAgICAgICAgICAgICAgICAgICAgICAgICAgICAgICAgICAgICAgICAgICAgICAg ICAgICAgICAgICAgICAgICAgICAgICAgICAgICAgIC AgICAgICAgICANCiAgICAgICAgICAgICAgICAgICAgICAgICAgICAgICAgICAgICAgICAgICAgICAgIC AgICAgICAgICAgICAgICAgICAgICAgICAgICAgICAgICAgICAgICAgICAgICAgICAgICANCiAgICAgIC AgICAgICAgICAgICAgICAgICAgICAgICAgICAgICAg ICAgICAgICAgICAgICAgICAgICAgICAgICAgICAgICAgICAgICAgICAgICAgICAgICAgICAgICAgICAg ICANCiAgICAgICAgICAgICAgICAgICAgICAgICAgICAgICAgICAgICAgICAgICAgICAgICAgICAgICAg ICAgICAgICAgICAgICAgICAgICAgICAgICAgICAgIC AgICAgICAgICAgICANCiAgICAgICAgICAgICAgICAgICAgICAgICAgICAgICAgICAgICAgICAgICAgIC AgICAgICAgICAgICAgICAgICAgICAgICAgICAgICAgICAgICAgICAgICAgICAgICAgICAgICANCiAgIC AgICAgICAgICAgICAgICAgICAgICAgICAgICAgICAg ICAgICAgICAgICAgICAgICAgICAgICAgICAgICAgICAgICAgICAgICAgICAgICAgICAgICAgICAgICAg ICAgICANCiAgICAgICAgICAgICAgICAgICAgICAgICAgICAgICAgICAgICAgICAgICAgICAgICAgICAg ICAgICAgICAgICAgICAgICAgICAgICAgICAgICAgIC AgICAgICAgICAgICAgICANCiAgICAgICAgICAgICAgICAgICAgICAgICAgICAgICAgICAgICAgICAgIC AgICAgICAgICAgICAgICAgICAgICAgICAgICAgICAgICAgICAgICAgICAgICAgICAgICAgICAgICANCi AgICAgICAgICAgICAgICAgICAgICAgICAgICAgICAg ICAgICAgICAgICAgICAgICAgICAgICAgICAgICAgICAgICAgICAgICAgICAgICAgICAgICAgICAgICAg ICAgICAgICANCiAgICAgICAgICAgICAgICAgICAgICAgICAgICAgICAgICAgICAgICAgICAgICAgICAg ICAgICAgICAgICAgICAgICAgICAgICAgICAgICAgIC AgICAgICAgICAgICAgICAgICANCjw/hRRbI8tugTXozzG6B5yzHp1AVb5VOC1od4MjZDWsWBclteJcTj xURoWuIIBzBzzINys3RUblIL4HhEVnO4CpW7ChKRhvEO3FUMLrRWPffUTbFSRsKMWaYdB8JDCiUHnwNQ 9LaWRzIFsgNSAwIFIgNyAwIFIgOSAwIFIgMTEgMCBS TNZyFMXhEsXvDGuoXM7Yd8NljTY0NAl+Rj9ZGT7lf0RhKOgrJxKnBK3cex5XFTwCPlGxJ4DdfzQ9GZI2 XVHsGi3PZPMvQPHsnJDoQMApVXOTMjZlD0MjnX06YWUSBh7+XDqofaXjUhgOZxQ9QXExs4MmBGe9VX1J CRHxGYx4aXSyUSCaN2Ubx1TpVg64BUMrXvdgNebhsZ BEDMtpELcjjvukDQ5dPGCdKE6iRJ9cZERnQRViUrNmXFFMQI0QZUQyAYOrzQIoMCEbSGGHHD4KMTwgAY N5CBPzumAaeXByQSvzYJ1KVDSjhwTjTqbrUQGGYFg+Ae0OQS1hr5QvGHrpWWYrJY9bgt6JSWeUEvWsS5 C2gCPpY8E9EGzgXd5WZIYuTSXgAhTtBQQZMPevHI5V SP8usmD0NV3ShRJbDBGjQCSykLJdJDs2L60wmWGbOSbfJL9KKHW+Earl+Ub1ZJRQcHPMyDZKhIlWcNHLA EyAaI7DeV7DAv3OhN2HbGM97lDscuwLfDWyzVS8WSV5sAMRbMTWBZD5PsWQdeC9mdtGaLdJvFAVTVzLb G15qiIMnXFFuRLW3AXZnSb0XBFPkW1FqxdNjnZphbx ZdCPVbXFPOCO7WNErwqxLpvNUgaIzcMI72cRtjNF7QRe6NEgMiIL9utj1ClUUbPr8ZYWZqLG7PXHItJH GyMAJkXAC4HKKcXbEkMKirQNFrKDPiRXS1XSCpKAXyMV2JAmHrPTXsCmzfSJxuODRbJKVjxn7PJNRhAE TbPWewNjAdTBYsHDXsCSuwNPVfHLMoUQE3RQLzGSNl DI4AFsXxSJZsBKT2OoAiDTHrATAiki7DCBZsYOOrEIFbYkTvUOQeNWHxDXscRNNmDDU9FPYqIERmZVYq WX1ZVuPyOTKcSJtqArAmHUYvRQQldc0MKMPqFGKkAZt7PkUdSGBjFOPnWJwjONYdUIOpXLF7BGMpKYTu EP1FAtPxZIZhRFM3NdboOKUnHLGhay9TJWXsSRTaRs v3LNGwIMAmOGQpINhwDLPpMMVgOLCpSVWaPULnRA7NNwLdPOVyQPMqTprsGIQyBVAkdv2LUHVhWMFoAY w6TgQjNOFePUYwWPjoYWZqJIV2NEp0UWZxWVMvYZ1PVtQuNUUwHYAvCzsmRXDrQMCcol1WASVvVUNrOx TqTqTqFFBzODYeXMlnVRVlKAR1LZK3XSIqXMRaJM5R TsIoZHEkUUZ1WAHnTHTwENWhnt9PKNLoQOTrTUX0MtDkKODfYKHoIBqpBVXbWYD1UVrzSAXcNDUmGJ1H OcHfXQGwIvv3NLTrWNBzIIOdtb7ZRQScCPSpXWewWZUyNIGoZPYlLZmoPFXxHUI8HCd0MLFcUVTnPR5W UgEnLWMjFzf9CiqwKVVzGZPudj3IEHDnQXJhGUm0KP YkIZBuHWBfFYdtIWCvZRPjPNGoPXVqXWCrXV3JCxGtXAMvLuJyHwLvDLTcEIXbeh0OvULxyQzben6TCJ dPMl8HgPrgDDLmALazEg1ywZAuEGCqFOOTVn1XhgToSUJhJWODUYsuUDPmLAFoYZS1JaAfNQC5RDF9PC q6N8I0ZDKsSQU2YRe1C7KuVaT6KWJ4YUHcAYSiQOn5 IVVsZjyyWuMwEJL6JevkYLb9IrH+QO7xMTn+Wm5Qi8LfxzN3ykHgHAubEQQtAW7KESYXT4DNWf== ID Date Data Source [id number] 02/28/2021 01:25:31 PM EDT [facility] Name Value Range Interpretation Code Description Data Ema rce(s) Supporting Document(s) Hepatitis A virus IgM Ab [Presence] in Serum or Plasma by Im munoassay Non Reactive [facility] No acute infection, susceptible to infec tion. Hepatitis B virus core IgM Ab [Presence] in Serum or Plasma by Immunoassay Non Reactive [facility] IgM antibodies to HBc were not detected, does not exclude the possibility of exposure to HBV. Hepatitis C virus Ab [Presence] in Serum or Plasma by Immuno assay Non Reactive [facility] No serological evidence of active infect ion. If recent exposure is suspected, test for HCV RNA. Hepatitis B virus surface Ag [Presence] in Serum or Plasma b y Immunoassay Non Reactive [facility] No active or previous infection. Suscept ible to infection. ID Date Data Source [id number] 02/28/2021 12:39:41 PM [facility] Name Value Range Interpretation Code Description Data [facility] rce(s) Supporting Document(s) Leukocytes [#/volume] in Blood by Automated count 4.0 10*3/uL 4-10 [facility] Erythrocytes [#/volume] in Blood by Automated count 2.97 10*6/uL 4.6- 6.1 L [facility] Hemoglobin [Mass/volume] in Blood 8.4 g/dL 13.5-18 L [facility] Hematocrit [Volume Fraction] of Blood by Automated count 25.4 % 4 1-53 L [facility] Erythrocyte mean corpuscular volume [Entitic volume] by Auto mated count 85.4 fL 80-96 [facility] Erythrocyte mean corpuscular hemoglobin [Entitic mass] by Automated count 28.3 pg 27-33 [facility] Erythrocyte mean corpuscular hemoglobin concentration [Mass/volume] by Autom[facility] 33.1 g/dL 32.0-[facility] width [Ratio] by Automated count 16.7 % 11.5-14.5 H [facility] Platelets [#/volume] in Blood by Automated count 190 10*3/uL 150-400 [facility] Differential cell count method - Blood [facility] Neutrophils/100 leukocytes in Blood by Automated count 74 % [facility] Lymphocytes/100 leukocytes in Blood by Automated count 6 % [facility] Monocytes/100 leukocytes in Blood by Automated count 12 % [facility] Eosinophils/100 leukocytes in Blood by Automated count 6 % [facility] Basophils/100 leukocytes in Blood by Automated count 2 % [facility] Neutrophils [#/volume] in Blood by Automated count 3.00 10*3/uL 1.8-7 .0 [facility] Lymphocytes [#/volume] in Blood by Automated count 0.25 10*3/uL 1.2-4 .0 L [facility] Monocytes [#/volume] in Blood by Automated count 0.46 10*3/uL 0-0.8 [facility] Eosinophils [#/volume] in Blood by Automated count 0.26 10*3/uL 0-0.5 [facility] Basophils [#/volume] in Blood by Automated count 0.06 10*3/uL 0-0.2 [facility] Nucleated erythrocytes/100 leukocytes [Ratio] in Blood by Automated count 0 /100{WBCs} 0-0 [facility] ID Date Data Source [id number] [facility]21 [facility] Interpretation Code Description Data Ema rce(s) Supporting Document(s) Prothrombin time (PT) 14.6 s 11.6-14.0 H [facility] INR in Platelet poor plasma by Coagulation assay 1.18 [facility] Routine intensity oral anticoagulation I NR is typically 2.0-3.0. Target INR must be clinically individualized. ID Date Data Source [id number] 02/28/2021 12:59:[address] [facility] Value Range Interpretation Code Description Data Ema rce(s) Supporting Document(s) aPTT in Platelet poor plasma by Coagulation assay 33.5 s 24.0-33. 0 H [facility] ID Date Data Source [id number] 02/28/2021 01:24:[address] [facility] Value Range Interpretation Code Description Data Ema rce(s) Supporting Document(s) [place]-6-Diubmueaaqo [Mass/volume] in Serum or Plasma 45 ng/mL <9 H [facility] ID Date Data Source [id number] 02/28/2021 01:24:[address] [facility] Value Range Interpretation Code Description Data Ema rce(s) Supporting Document(s) Albumin [Mass/volume] in Serum or Plasma by Bromocresol green (BCG) dye binding method 3.4 g/dL 3.5-5.2 [facility] Bilirubin.total [Mass/volume] in Serum or Plasma 0.7 mg/dL <1.2 [facility] Calcium [Mass/volume] in Serum or Plasma 10.6 mg/dL 8.8-10.2 H [facility] Chloride [Moles/volume] in Serum or Plasma 97 mmol/L 98-107 L [facility] Creatinine [Mass/volume] in Serum or Plasma 0.94 mg/dL 0.70-1.20 [facility] Glucose [Mass/volume] in Serum or Plasma 138 mg/dL 70-140 [facility] Alkaline phosphatase [Enzymatic activity/volume] in Serum or Plasma 168 U/L 40-129 H [facility] Potassium [Moles/volume] in Serum or Plasma 4.1 mmol/L 3.4-5.1 [facility] Protein [Mass/volume] in Serum or Plasma 7.1 g/dL 6.4-8.3 [facility] Sodium [Moles/volume] in Serum or Plasma 130 mmol/L 136-145 [facility] [facility] Aspartate aminotransferase [Enzymatic activity/volume] in Serum or Plasma 60 U/L <40 [facility] Urea nitrogen [Mass/volume] in Serum or Plasma 17 mg/dL 8-23 [facility] Osmolality of Serum or Plasma by calculation 274 mosm/kg 275-300 [facility] Creatinine/Urea nitrogen [Mass Ratio] in Serum or Plasma 18 [facility] Bicarbonate [Moles/volume] in Serum 22 mmol/L 22-29 [facility] Alanine aminotransferase [Enzymatic activity/volume] in Seru m or Plasma 36 U/L <41 [facility] Anion gap 3 in Serum or Plasma 11 mmol/L 8-15 [facility] Glomerular filtration rate/1.73 sq M pre dicted among non-blacks [Volume Rate/Area] in Serum or Plasma by Creatinine-based formula (MDRD) 77 mL/min/1.73m2 >60 [facility] Glomerular filtration rate/1.73 sq M pre dicted among blacks [Volume Rate/Area] in Serum or Plasma by Creatinine-based formula (MDRD) 90 mL/min/1.73m2 >60 [facility] ID Date Data Source [id number] 02/18/2021 08:24:57 AM EDT [facility] Name Value Range Interpretation Code Description Data Ema rce(s) Supporting Document(s) POC GLUCOSE 124 mg/dL (70-99) H [facility] PERFORMED BY CLINICAL STAFF ID Date Data Source [id number] 02/18/2021 07:04:16 AM EDT [facility] Name Value Range Interpretation Code Description Data Ema rce(s) Supporting Document(s) SODIUM 141 mmol/L (136-145) [facility] POTASSIUM 3.8 mmol/L (3.6-5.2) [facility] CHLORIDE 111 mmol/L (100-108) H [facility] CO2 25 mmol/L (22-31) [facility] ANION GAP 5 mmol/L (7-16) L [facility] UREA NITROGEN 13 mg/dL (7-24) [facility] CREATININE 0.75 mg/dL (0.80-1.30) L [facility] BUN/CREAT RATIO 17.3 RATIO (10.0-20.0) [facility] GLUCOSE 137 mg/dL (70-99) H [facility] CALCIUM 9.0 mg/dL (8.4-10.2) [facility] TOTAL PROTEIN 5.5 g/dL (6.4-8.2) L [facility] ALBUMIN 1.8 g/dL (3.2-4.5) L [facility] GLOBULIN 3.7 g/dL (2.7-4.3) [facility] ALB/GLOB RATIO 0.5 RATIO [facility] ALKALINE PHOSPHATASE 139 U/L (45-117) H [facility] BILIRUBIN,TOTAL 0.8 mg/dL (0.0-1.0) [facility] PLEASE NOTE:Total bilirubin results may be falselyelevated in patients taking Eltrombopag. AST (SGOT) 63 U/L (11-39) H [facility] ALT (SGPT) 39 U/L (12-78) [facility] GFR >60 ml/min/1.73m2 (>59) [facility] GFR ( AMER) >60 ml/min/1.73m2 (>59) [facility] GFR INTERPRETATION [facility] --NORMAL KIDNEY FUNCTION OR MILD DISEASE - GFR >OR= 60CHRONIC KIDNEY DISEASE - GFR 15 - 59RENAL FAILURE - GFR <15 Est. GFR calculation based on the MDRDstudy equation, which assumes a steadystate for creatinine. Est. GFR should notbe used for medication dosing. ID Date Data Source [id number] 02/18/2021 06:27:58 AM EDT [facility] Name Value Range Interpretation Code Description Data Ema rce(s) Supporting Document(s) WBC 3.0 10*3/uL (4.1-11.0) L [facility] [place] RBC 2.62 10*6/uL (4.60-6.10) L [facility] HGB 7.4 g/dL (13.5-18.0) L [facility] HCT 22.4 % (41.0-53.0) L [facility] MCV 85.4 fL (80.0-95.0) [facility] MCH 28.3 pg (27.0-32.0) [facility] MCHC 33.1 g/dL (32.0-36.0) [facility] RDW 16.2 % (10.5-14.5) H [facility] PLT 125 10*3/uL (150-450) L [facility] MPV 8.6 fL (7.1-10.7) [facility] ID Date Data Source [id number] 02/18/2021 02:59:19 AM EDT [facility] Name Value Range Interpretation Code Description Data Ema rce(s) Supporting Document(s) POC GLUCOSE 126 mg/dL (70-99) H [facility] NOTIFIED NURSEPERFORMED BY CLINICAL S TAFF ID Date Data Source [id number] 02/17/2021 08:44:14 PM EDT [facility] Name Value Range Interpretation Code Description Data Ema rce(s) Supporting Document(s) POC GLUCOSE 183 mg/dL (70-99) H [facility] NOTIFIED NURSEPERFORMED BY CLINICAL S TAFF ID Date Data Source [id number] 02/17/2021 08:20:47 PM EDT [facility] Name Value Range Interpretation Code Description Data Ema rce(s) Supporting Document(s) WBC 3.8 10*3/uL (4.1-11.0) L [facility] [place] RBC 3.01 10*6/uL (4.60-6.10) L [facility] HGB 8.3 g/dL (13.5-18.0) L [facility] HCT 25.6 % (41.0-53.0) L [facility] MCV 85.3 fL (80.0-95.0) [facility] MCH 27.5 pg (27.0-32.0) [facility] MCHC 32.2 g/dL (32.0-36.0) [facility] RDW 16.4 % (10.5-14.5) H [facility] PLT 157 10*3/uL (150-450) [facility] MPV 7.9 fL (7.1-10.7) [facility] ID Date Data Source [id number] 02/17/2021 05:44:15 PM EDT [facility] Name Value Range Interpretation Code Description Data Ema rce(s) Supporting Document(s) POC GLUCOSE 141 mg/dL (70-99) H [facility] NOTIFIED NURSEPERFORMED BY CLINICAL S TAFF ID Date Data Source [id number] 02/17/2021 02:11:35 PM EDT [facility] Name Value Range Interpretation Code Description Data Ema rce(s) Supporting Document(s) WBC 3.3 10*3/uL (4.1-11.0) L [facility] [place] RBC 2.86 10*6/uL (4.60-6.10) L [facility] HGB 7.9 g/dL (13.5-18.0) L [facility] HCT 24.5 % (41.0-53.0) L [facility] MCV 85.6 fL (80.0-95.0) [facility] MCH 27.7 pg (27.0-32.0) [facility] MCHC 32.3 g/dL (32.0-36.0) [facility] RDW 16.2 % (10.5-14.5) H [facility] PLT 136 10*3/uL (150-450) L [facility] MPV 8.9 fL (7.1-10.7) [facility] ID Date Data Source [id number] 02/17/2021 12:45:18 PM EDT [facility] Name Value Range Interpretation Code Description Data Ema rce(s) Supporting Document(s) POC GLUCOSE 151 mg/dL (70-99) H [facility] PERFORMED BY CLINICAL STAFF ID Date Data Source [id number] 02/17/2021 09:02:18 AM EDT [facility] Name Value Range Interpretation Code Description Data Ema rce(s) Supporting Document(s) POC GLUCOSE 120 mg/dL (70-99) H [facility] PERFORMED BY CLINICAL STAFF ID Date Data Source [id number] 02/17/2021 08:36:01 AM EDT [facility] Name Value Range Interpretation Code Description Data Ema rce(s) Supporting Document(s) SODIUM 143 mmol/L (136-145) [facility] POTASSIUM 3.6 mmol/L (3.6-5.2) [facility] CHLORIDE 113 mmol/L (100-108) H [facility] CO2 25 mmol/L (22-31) [facility] ANION GAP 5 mmol/L (7-16) L [facility] UREA NITROGEN 16 mg/dL (7-24) [facility] CREATININE 0.80 mg/dL (0.80-1.30) [facility] BUN/CREAT RATIO 20.0 RATIO (10.0-20.0) [facility] GLUCOSE 126 mg/dL (70-99) H [facility] CALCIUM 8.6 mg/dL (8.4-10.2) [facility] TOTAL PROTEIN 5.7 g/dL (6.4-8.2) L [facility] ALBUMIN 1.9 g/dL (3.2-4.5) L [facility] GLOBULIN 3.8 g/dL (2.7-4.3) [facility] ALB/GLOB RATIO 0.5 RATIO [facility] ALKALINE PHOSPHATASE 141 U/L (45-117) H [facility] BILIRUBIN,TOTAL 1.2 mg/dL (0.0-1.0) H [facility] PLEASE NOTE:Total bilirubin results may be falselyelevated in patients taking Eltrombopag. AST (SGOT) 56 U/L (11-39) H [facility] ALT (SGPT) 37 U/L (12-78) [facility] GFR >60 ml/min/1.73m2 (>59) [facility] GFR ( AMER) >60 ml/min/1.73m2 (>59) [facility] GFR INTERPRETATION [facility] --NORMAL KIDNEY FUNCTION OR MILD DISEASE - GFR >OR= 60CHRONIC KIDNEY DISEASE - GFR 15 - 59RENAL FAILURE - GFR <15 Est. GFR calculation based on the MDRDstudy equation, which assumes a steadystate for creatinine. Est. GFR should notbe used for medication dosing. ID Date Data Source [id number] 02/17/2021 08:02:19 AM EDT [facility] Name Value Range Interpretation Code Description Data Ema rce(s) Supporting Document(s) WBC 3.0 10*3/uL (4.1-11.0) L [facility] [place] RBC 2.69 10*6/uL (4.60-6.10) L [facility] HGB 7.4 g/dL (13.5-18.0) L [facility] HCT 22.8 % (41.0-53.0) L [facility] PERFORMED AT [address] [place] [address] MCV 84.6 fL (80.0-95.0) [facility] MCH 27.6 pg (27.0-32.0) [facility] MCHC 32.6 g/dL (32.0-36.0) [facility] RDW 16.5 % (10.5-14.5) H [facility] PLT 129 10*3/uL (150-450) L [facility] MPV 8.7 fL (7.1-10.7) [facility] ID Date Data Source [id number] 02/17/2021 04:40:08 AM EDT [facility] Name Value Range Interpretation Code Description Data Ema rce(s) Supporting Document(s) POC GLUCOSE 125 mg/dL (70-99) H [facility] PERFORMED BY CLINICAL STAFF ID Date Data Source [id number] 02/16/2021 10:37:35 PM EDT [facility] Name Value Range Interpretation Code Description Data Ema rce(s) Supporting Document(s) POC GLUCOSE 169 mg/dL (70-99) H [facility] NOTIFIED NURSEPERFORMED BY CLINICAL S TAFF ID Date Data Source [id number] 02/16/2021 08:37:46 PM EDT [facility] Name Value Range Interpretation Code Description Data Ema rce(s) Supporting Document(s) WBC 4.2 10*3/uL (4.1-11.0) [facility] [place] RBC 3.03 10*6/uL (4.60-6.10) L [facility] HGB 8.4 g/dL (13.5-18.0) L [facility] HCT 25.9 % (41.0-53.0) L [facility] PERFORMED AT [address] [place] [address] MCV 85.3 fL (80.0-95.0) [facility] MCH 27.5 pg (27.0-32.0) [facility] MCHC 32.3 g/dL (32.0-36.0) [facility] RDW 16.0 % (10.5-14.5) H [facility] PLT 147 10*3/uL (150-450) L [facility] MPV 8.5 fL (7.1-10.7) [facility] ID Date Data Source [id number] 02/16/2021 05:27:15 PM EDT [facility] Name Value Range Interpretation Code Description Data Ema rce(s) Supporting Document(s) POC GLUCOSE 159 mg/dL (70-99) H [facility] PERFORMED BY CLINICAL STAFF ID Date Data Source [id number] 02/16/2021 02:11:39 PM EDT [facility] Name Value Range Interpretation Code Description Data Ema rce(s) Supporting Document(s) SODIUM 141 mmol/L (136-145) [facility] POTASSIUM 3.7 mmol/L (3.6-5.2) [facility] CHLORIDE 111 mmol/L (100-108) H [facility] CO2 24 mmol/L (22-31) [facility] ANION GAP 6 mmol/L (7-16) L [facility] UREA NITROGEN 17 mg/dL (7-24) [facility] CREATININE 0.84 mg/dL (0.80-1.30) [facility] BUN/CREAT RATIO 20.2 RATIO (10.0-20.0) H [facility] GLUCOSE 157 mg/dL (70-99) H [facility] CALCIUM 9.5 mg/dL (8.4-10.2) [facility] GFR >60 ml/min/1.73m2 (>59) [facility] GFR ( AMER) >60 ml/min/1.73m2 (>59) [facility] GFR INTERPRETATION [facility] --NORMAL KIDNEY FUNCTION OR MILD DISEASE - GFR >OR= 60CHRONIC KIDNEY DISEASE - GFR 15 - 59RENAL FAILURE - GFR <15 Est. GFR calculation based on the MDRDstudy equation, which assumes a steadystate for creatinine. Est. GFR should notbe used for medication dosing. ID Date Data Source [id number] 02/16/2021 01:45:41 PM EDT [facility] Name Value Range Interpretation Code Description Data Ema rce(s) Supporting Document(s) WBC 3.5 10*3/uL (4.1-11.0) L [facility] [place] RBC 2.55 10*6/uL (4.60-6.10) L [facility] HGB 7.0 g/dL (13.5-18.0) L [facility] HCT 21.6 % (41.0-53.0) L [facility] PERFORMED AT [address] [place] [address] MCV 84.4 fL (80.0-95.0) [facility] MCH 27.4 pg (27.0-32.0) [facility] MCHC 32.5 g/dL (32.0-36.0) [facility] RDW 16.4 % (10.5-14.5) H [facility] PLT 147 10*3/uL (150-450) L [facility] MPV 8.8 fL (7.1-10.7) [facility] ID Date Data Source [id number] 02/16/2021 12:12:49 PM EDT [facility] Name Value Range Interpretation Code Description Data Ema rce(s) Supporting Document(s) POC GLUCOSE 182 mg/dL (70-99) H [facility] NOTIFIED NURSEPERFORMED BY CLINICAL S TAFF ID Date Data Source [id number] 02/16/2021 08:47:28 AM EDT [facility] Name Value Range Interpretation Code Description Data Ema rce(s) Supporting Document(s) POC GLUCOSE 141 mg/dL (70-99) H [facility] PERFORMED BY CLINICAL STAFF ID Date Data Source [id number] 02/16/2021 03:13:38 AM EDT [facility] Name Value Range Interpretation Code Description Data Ema rce(s) Supporting Document(s) POC GLUCOSE 126 mg/dL (70-99) H [facility] PERFORMED BY CLINICAL STAFF ID Date Data Source [id number] 02/16/2021 07:25:00 AM EDT [facility] DATE OF EXAM: 02/16/2021HEST, SINGLE PO RTABLE VIEW. INDICATION: Chest pain COMPARISON: 11/18/2020 TECHNIQUE: A portable radiograph of the chest was obtained. FINDINGS: No focal consolidation, pleural effusions or pulmonary edema is seen. The cardiomediastinal silhouette is mildly prominent. Visualized osseous structures are within normal limits. IMPRESSION: No acute abnormality is seen. Professional interpretation performed at [facility] .End of diagnostic report for accession: [id number] Interpreted: David Bueno MDTranscribed: 02/16/2021 07:25 AMSigned: 0 02/16/2021 07:25 AM David Bueno MD [facility] # [id number] BILL # [id number] Name Value Range Interpretation Code Description Data Ema rce(s) Supporting Document(s) ID Date Data Source [id number] 02/17/2021 12:48:06 AM EDT [facility] SPEC EXP DATE 02/19/2021ATI ENT ABO/Rh A POSITIVEANTIBODY SCREEN NEGATIVETESTING SITE PERFORMED AT [address] [place] [address] BANK COMMENT BLOOD TYPE CONFIRMED.UNIT NUMBER [id number] COMPONENT TYPE LEUKOPOOR RED CELLSUNIT DIVISION 00STATUS OF UNIT TRANSFUSEDTRANSFUSION STATUS OK TO TRANSFUSECROSSMATCH RESULT COMPATIBLE Name Value Range Interpretation Code Description Data Ema rce(s) Supporting Document(s) TYPE AND SCREEN [facility] [place] PATIENT ABO/Rh A POSITIVE ID Date Data Source [id number] 02/16/2021 12:54:29 AM EDT [facility] [place] Name Value Range Interpretation Code Description Data Ema rce(s) Supporting Document(s) PT 12.1 s (9.2-11.9) H [facility] PERFORMED AT [address] [place] [address] INR 1.16 [facility] SUGGESTED THERAPEUTIC RANGES USING INR F ORSTABILIZED ANTICOAGULATED PATIENTS:STANDARD DOSE THERAPY INR 2.0-3.0 DVT, PE, PREVENT DVT OR EMBOLISMHIGH DOSE THERAPY INR 2.5-3.5 PREVENT EMBOLISM FROM MECHANICAL HEART VALVE ID Date Data Source [id number] 02/16/2021 12:44:12 AM EDT [facility] Name Value Range Interpretation Code Description Data Ema rce(s) Supporting Document(s) TOTAL PROTEIN 6.7 g/dL (6.4-8.2) [facility] ALBUMIN 2.2 g/dL (3.2-4.5) L [facility] GLOBULIN 4.5 g/dL (2.7-4.3) H [facility] ALB/GLOB RATIO 0.5 RATIO [facility] BILIRUBIN,TOTAL 1.3 mg/dL (0.0-1.0) H [facility] PLEASE NOTE:Total bilirubin results may be falselyelevated in patients taking Eltrombopag. BILIRUBIN,CONJUGATED 0.4 mg/dL (0.0-0.3) H [facility] BILIRUBIN,UNCONJ. 0.9 mg/dL (0.0-0.7) H [facility] ALKALINE PHOSPHATASE 155 U/L (45-117) H [facility] AST (SGOT) 63 U/L (11-39) H [facility] ALT (SGPT) 44 U/L (12-78) [facility] ID Date Data Source [id number] 02/16/2021 12:44:12 AM EDT [facility] Name Value Range Interpretation Code Description Data Ema rce(s) Supporting Document(s) TROPONIN I <0.05 ng/mL (<0.05) [facility] [place] Less than 0.05: Myocardial injury unlike lyGreater than or equal to 0.05: Highly suggestive of myocardial injuryCorrelation with rise and/or fall ofserial troponins, clinical symptomsand ECG changes is necessary. ID Date Data Source [id number] 02/16/2021 12:44:12 AM EDT [facility] Name Value Range Interpretation Code Description Data Ema rce(s) Supporting Document(s) SODIUM 140 mmol/L (136-145) [facility] POTASSIUM 4.0 mmol/L (3.6-5.2) [facility] CHLORIDE 112 mmol/L (100-108) H [facility] CO2 22 mmol/L (22-31) [facility] ANION GAP 6 mmol/L (7-16) L [facility] UREA NITROGEN 18 mg/dL (7-24) [facility] CREATININE 0.83 mg/dL (0.80-1.30) [facility] BUN/CREAT RATIO 21.7 RATIO (10.0-20.0) H [facility] GLUCOSE 131 mg/dL (70-99) H [facility] CALCIUM 9.7 mg/dL (8.4-10.2) [facility] GFR >60 ml/min/1.73m2 (>59) [facility] GFR ( AMER) >60 ml/min/1.73m2 (>59) [facility] GFR INTERPRETATION [facility] --NORMAL KIDNEY FUNCTION OR MILD DISEASE - GFR >OR= 60CHRONIC KIDNEY DISEASE - GFR 15 - 59RENAL FAILURE - GFR <15 Est. GFR calculation based on the MDRDstudy equation, which assumes a steadystate for creatinine. Est. GFR should notbe used for medication dosing. ID Date Data Source [id number] 02/16/2021 12:28:08 AM EDT [facility] Name Value Range Interpretation Code Description Data Ema rce(s) Supporting Document(s) WBC 4.4 10*3/uL (4.1-11.0) [facility] [place] RBC 3.03 10*6/uL (4.60-6.10) L [facility] HGB 8.2 g/dL (13.5-18.0) L [facility] HCT 25.3 % (41.0-53.0) L [facility] MCV 83.7 fL (80.0-95.0) [facility] MCH 27.0 pg (27.0-32.0) [facility] MCHC 32.2 g/dL (32.0-36.0) [facility] RDW 16.2 % (10.5-14.5) H [facility] PLT 164 10*3/uL (150-450) [facility] MPV 9.2 fL (7.1-10.7) [facility] NEUT % 72.8 % (35.0-75.0) [facility] LYMPH % 8.6 % (16.0-52.0) L [facility] MONO % 10.8 % (0.0-8.0) H [facility] EOS % 7.3 % (0.0-5.0) H [facility] BASO % 0.5 % (0.0-4.0) [facility] NEUT # 3.2 10*3/uL (1.8-7.7) [facility] LYMPH # 0.4 10*3/uL (1.2-4.8) L [facility] MONO # 0.5 10*3/uL (0.0-0.8) [facility] Eosinophils [#/volume] in Blood by Automated count 0.3 10*3/uL (0.0-0 .5) [facility] BASO # 0.0 10*3/uL (0.0-0.2) [facility] ID Date Data Source [id number] 02/17/2021 07:11:40 AM EDT [facility] SPECIMEN DESCRIPTION URINE, COLLE CTION METHOD NOT SPECIFIEDCULTURE RESULTS NO GROWTHREPORT STATUS FINAL 02/17/2021 Name Value Range Interpretation Code Description Data Ema rce(s) Supporting Document(s) ID Date Data Source [id number] 02/16/2021 01:00:13 AM EDT [facility] Name Value Range Interpretation Code Description Data Ema rce(s) Supporting Document(s) URINE WBC (0-5) [facility] URINE RBC (0-2) [facility] BACTERIA 1+ [HPF] [facility] MUCUS 1+ [HPF] [facility] ID Date Data Source [id number] 02/16/2021 12:42:47 AM EDT [facility] Name Value Range Interpretation Code Description Data Ema rce(s) Supporting Document(s) COLOR [facility] PERFORMED AT [address] [facility] [address] APPEARANCE [facility] SPEC GRAV URINE 1.031 (1.003-1.030) H [facility] PH URINE 6.5 (5.0-7.5) [facility] LEUK ESTERASE (NEG) A [facility] NITRITE URINE (NEG) [facility] PROTEIN URINE (NEG) [facility] GLUCOSE URINE (NEG) [facility] KETONE URINE (NEG) [facility] [place] UROBILINOGEN 0.2 mg/dL (0-1.0) [facility] [place] BILIRUBIN URINE (NEG) [facility] BLOOD/HGB URINE 2+ (NEG) A [facility] ID Date Data Source [id number] 02/15/2021 05:36:00 PM EDT [facility] Name Value Range Interpretation Code Description Data Ema rce(s) Supporting Document(s) SARS coronavirus 2 RNA [Presence] in Res piratory specimen by JUSTEN with probe detection [facility] This [facility] was ordered by [facility] a nd reported by [facility]. ID Date Data Source [id number] 02/14/2021 10:27:00 AM EDT [facility] Name Value Range Interpretation Code Description Data Ema rce(s) Supporting Document(s) Glucose [Presence] in Urine Laboratory test result [facility] ([facility]) Protein [Presence] in Urine by Test strip 100 mg/dL [facility] ([facility]) Ua Nitrite Laboratory test result [facility] ([facility]) Blood [Presence] in Urine by Visual Laboratory test result [facility] ([facility]) Ua Leuko Laboratory test result [facility] ([facility]) Color of Urine Laboratory test result [facility] ([facility]) Ketones [Presence] in Urine by Test strip Laboratory test result [facility] ([facility]) Clarity of Urine Laboratory test result [facility] ([facility]) Ua Specific [place] 1.025 1.003-1.030 [facility] NT ([facility]) pH of Urine by Test strip 7.0 5.0-7.5 [facility] ([facility]) Bilirubin.total [Presence] in Urine by Test strip Laboratory test res ult [facility] ([facility]) Urobilinogen [Mass/volume] in Urine by Test strip 1.0 E.U./dL 0.0-1.0 [facility] ([facility]) ID Date Data Source [id number] 02/13/2021 05:53:00 PM [facility] Surgical Pathology ReportName: Clyde LINARES OBERTMRN: [id number] Number: [id number] Date: 02/12/2021 00:00Received Date: 02/12/2021 14:16Physician(s): АННА BRAUN MD ADJAPONG, OPOKU, MDSpecimen(s) ReceivedA: Material received for consultation, [facility], [id number] HistoryLiver bx ([id number]). Right lobe liver mass. Confirm HCC. Consultation.DiagnosisLIVER, NEEDLE BIOPSY ([id number], 02/07/21): HEPATOCELLULAR CARCINOMA,MODERATELY DIFFERENTIATED. CIRRHOSIS. (See microscopic description).Electronically Signed By Donnie West M.D., Attending Pathologist02/13/2021 17:53:35 Gross [facility] [place] [place], is 1 H and Estained slide and 6 specially stained slides, 1 paraffin block, [id number], with the corresponding pathology report. Microscopic [...] developed and their performance characteristics determined by [facility] Pathology department. They have not been cleared or approved by the USFood and Drug Administration. The FDA has determined that such clearanceor approval is not necessary. Name Value Range Interpretation Code Description Data Ema rce(s) Supporting Document(s) ID Date Data Source [id number] 01/31/2021 06:21:13 AM EDT [facility] Name Value Range Interpretation Code Description Data Ema rce(s) Supporting Document(s) SODIUM 139 mmol/L (136-145) [facility] POTASSIUM 3.7 mmol/L (3.6-5.2) [facility] CHLORIDE 106 mmol/L (100-108) [facility] CO2 24 mmol/L (22-31) [facility] ANION GAP 9 mmol/L (7-16) [facility] UREA NITROGEN 17 mg/dL (7-24) [facility] CREATININE 0.95 mg/dL (0.80-1.30) [facility] BUN/CREAT RATIO 17.9 RATIO (10.0-20.0) [facility] GLUCOSE 119 mg/dL (70-99) H [facility] CALCIUM 9.4 mg/dL (8.4-10.2) [facility] GFR >60 ml/min/1.73m2 (>59) [facility] GFR ( AMER) >60 ml/min/1.73m2 (>59) [facility] GFR INTERPRETATION [facility] --NORMAL KIDNEY FUNCTION OR MILD DISEASE - GFR >OR= 60CHRONIC KIDNEY DISEASE - GFR 15 - 59RENAL FAILURE - GFR <15 Est. GFR calculation based on the MDRDstudy equation, which assumes a steadystate for creatinine. Est. GFR should notbe used for medication dosing. ID Date Data Source [id number] 01/31/2021 05:49:23 AM EDT [facility] Name Value Range Interpretation Code Description Data Ema rce(s) Supporting Document(s) WBC 3.6 10*3/uL (4.1-11.0) L [facility] RBC 2.70 10*6/uL (4.60-6.10) L [facility] HGB 7.3 g/dL (13.5-18.0) L [facility] HCT 22.2 % (41.0-53.0) L [facility] MCV 82.2 fL (80.0-95.0) [facility] MCH 27.2 pg (27.0-32.0) [facility] MCHC 33.1 g/dL (32.0-36.0) [facility] RDW 16.2 % (10.5-14.5) H [facility] PLT 178 10*3/uL (150-450) [facility] MPV 8.2 fL (7.1-10.7) [facility] ID Date Data Source [id number] 01/31/2021 02:58:00 AM EDT [facility] Name Value Range Interpretation Code Description Data Ema rce(s) Supporting Document(s) SARS coronavirus 2 RNA [Presence] in Res piratory specimen by JUSTEN with probe detection NOT DETECTED [facility] This lab was reported by [facility]. ID Date Data Source [id number] 01/31/2021 03:56:47 AM EDT [facility] [place] Name Value Range Interpretation Code Description Data Ema rce(s) Supporting Document(s) SPECIMEN DESCRIPTION [facility] [place] INFLUENZA A (NEG) [facility] [place] [facility] INFLUENZA B (NEG) [facility] [place] RSV (NEG) [facility] [place] COMMENT [facility] [place] THE [place] FDA HAS MADE THIS TEST AVAILABL REGINANDER AN EMERGENCY USE AUTHORIZATION(EUA) FOR THE DETECTION AND/OR DIAGNOSISOF THE VIRUS THAT CAUSES COVID-19.PERFORMED AT [address] [facility] [address] COVID19 RESULT (NDET) [facility] [place] THIS ASSAY AMPLIFIES AND DETECTSTHE TARG ET RNA USING REAL-TIME PCR.TESTING PERFORMED ON [employer] GENEXPERTNEGATIVE 2019_NCOV RT-PCR RESULTS DONOT PRECLUDE 2019_NCOV INFECTION ANDSHOULD NOT BE USED THE SOLE BASISFOR PATIENT MANAGEMENT DECISIONS. FIRST TEST [facility] [place] EMPL[facility]ED IN HLTHCARE [facility] [place] SYMPTOMATIC [facility] Efe Kwong DATE OF SYMPT ONSET [facility] [place] HOSPITALIZED [facility] ICU [facility] [place] CONGREGATE CARE SET [facility] [place] [facility] [place] ID Date Data Source [id number] 01/31/2021 08:36:00 AM EDT [facility] DATE OF EXAM: 01/31/2021XAM: CT [...] above. A contemporaneous report was provided by [facility] at the time of this examination, reporting similar findings. Professional interpretation performed at [facility] .End of diagnostic report for accession: [id number] Interpreted: Shahnaz Ramos MDTranscribed: 01/31/2021 08:23 AMSigned: 01/31/2021 08:36 AM Shahnaz Ramos MD [facility] # [id number] [facility] # [id number] Name Value Range Interpretation Code Description Data Ema rce(s) Supporting Document(s) ID Date Data Source [id number] 02/01/2021 09:19:09 AM EDT [facility] SPECIMEN DESCRIPTION URINE, COLLE CTION METHOD NOT SPECIFIEDCULTURE RESULTS MIXED UROGENITAL DEIRDRE; PLEASE SUBMIT A NEW SPEC IMEN IF CLINICALLY INDICATED.REPORT STATUS FINAL 02/01/2021 Name Value Range Interpretation Code Description Data Ema rce(s) Supporting Document(s) ID Date Data Source [id number] 01/31/2021 12:50:39 AM EDT [facility] Name Value Range Interpretation Code Description Data Ema rce(s) Supporting Document(s) URINE WBC (0-5) [facility] URINE RBC (0-2) [facility] ID Date Data Source [id number] 01/31/2021 12:39:03 AM EDT [facility] Name Value Range Interpretation Code Description Data Ema rce(s) Supporting Document(s) COLOR [facility] TESTING PERFORMED ON CENTRIFUGED SAMPLE APPEARANCE [facility] SPEC GRAV URINE 1.012 (1.003-1.030) [facility] PH URINE 6.5 (5.0-7.5) [facility] LEUK ESTERASE 2+ (NEG) A [facility] NITRITE URINE (NEG) [facility] PROTEIN URINE 2+ (NEG) A [facility] GLUCOSE URINE (NEG) [facility] KETONE URINE (NEG) [facility] [place] UROBILINOGEN 0.2 mg/dL (0-1.0) [facility] [place] BILIRUBIN URINE (NEG) [facility] BLOOD/HGB URINE 3+ (NEG) A [facility] ID Date Data Source [id number] 01/31/2021 12:42:08 AM EDT [facility] Name Value Range Interpretation Code Description Data Ema rce(s) Supporting Document(s) SODIUM 137 mmol/L (136-145) [facility] POTASSIUM 3.7 mmol/L (3.6-5.2) [facility] CHLORIDE 105 mmol/L (100-108) [facility] CO2 23 mmol/L (22-31) [facility] ANION GAP 9 mmol/L (7-16) [facility] UREA NITROGEN 17 mg/dL (7-24) [facility] CREATININE 1.02 mg/dL (0.80-1.30) [facility] BUN/CREAT RATIO 16.7 RATIO (10.0-20.0) [facility] GLUCOSE 147 mg/dL (70-99) H [facility] CALCIUM 9.6 mg/dL (8.4-10.2) [facility] GFR >60 ml/min/1.73m2 (>59) [facility] GFR ([facility]) >60 ml/min/1.73m2 (>59) [facility] GFR INTERPRETATION [facility] --NORMAL KIDNEY FUNCTION OR MILD DISEASE - GFR >OR= 60CHRONIC KIDNEY DISEASE - GFR 15 - 59RENAL FAILURE - GFR <15 Est. GFR calculation based on the MDRDstudy equation, which assumes a steadystate for creatinine. Est. GFR should notbe used for medication dosing. ID Date Data Source [id number] 01/31/2021 12:29:39 AM EDT [facility] Name Value Range Interpretation Code Description Data Ema rce(s) Supporting Document(s) WBC 4.0 10*3/uL (4.1-11.0) L [facility] [place] RBC 2.83 10*6/uL (4.60-6.10) L [facility] HGB 7.6 g/dL (13.5-18.0) L [facility] HCT 23.2 % (41.0-53.0) L [facility] MCV 82.1 fL (80.0-95.0) [facility] MCH 26.9 pg (27.0-32.0) L [facility] MCHC 32.8 g/dL (32.0-36.0) [facility] RDW 16.3 % (10.5-14.5) H [facility] PLT 187 10*3/uL (150-450) [facility] MPV 8.3 fL (7.1-10.7) [facility] NEUT % 78.0 % (35.0-75.0) H [facility] LYMPH % 6.7 % (16.0-52.0) L [facility] MONO % 9.3 % (0.0-8.0) H [facility] EOS % 4.4 % (0.0-5.0) [facility] BASO % 1.6 % (0.0-4.0) [facility] NEUT # 3.2 10*3/uL (1.8-7.7) [facility] LYMPH # 0.3 10*3/uL (1.2-4.8) L [facility] MONO # 0.4 10*3/uL (0.0-0.8) [facility] Eosinophils [#/volume] in Blood by Automated count 0.2 10*3/uL (0.0-0 .5) [facility] BASO # 0.1 10*3/uL (0.0-0.2) [facility] ID Date Data Source [id number] 01/11/2021 12:00:00 AM EDT eCW1 ([facility]) Name Value Range Interpretation Code Description Data Ema rce(s) Supporting Document(s) PLZ LIVER [facility] ([facility]) ID Date Data Source [id number] 12/05/2020 12:19:00 PM EDT [facility] ([facility] Name Value Range Interpretation Code Description Data Ema rce(s) Supporting Document(s) Specimen Adequacy Laboratory test result [facility] ([facility]) Ileal conduit/neobladder. Clinical History Laboratory test result [facility] ([facility]) BodySite Laboratory test result [facility] ([facility]) Voided - Clean Catch Gross Description Laboratory test result [facility] ([facility]) Received in a specimen container, labele d with the patients name and , is Cloudy Yellow fluid consistent with urine, measuring approximately 15 ml. Microscopic Description Laboratory test result [facility] ([facility]) Moderate numbers of neutrophils present. CPTCode 86215 [facility] ([facility]) Final Diagnosis Laboratory test result [facility] ([facility]) NEGATIVE FOR HIGH-GRADE UROTHELIAL CARCI NOMA. PDF Report Laboratory test result [facility] ([facility]) ID Date Data Source [id number] 12/05/2020 12:19:00 PM EDT [facility] ([facility]) Name Value Range Interpretation Code Description Data Ema rce(s) Supporting Document(s) Cytology report of Urine Cyto stain Laboratory test result [facility] ([facility]) ID Date Data Source [id number] 12/05/2020 11:34:00 AM EDT [facility] ([facility]) Name Value Range Interpretation Code Description Data Ema rce(s) Supporting Document(s) Glucose [Presence] in Urine Laboratory test result [facility] ([facility]) Protein [Presence] in Urine by Test strip 30 mg/dL [facility] ([facility]) Ua Nitrite Laboratory test result [facility] ([facility]) Blood [Presence] in Urine by Visual Laboratory test result [facility] ([facility]) Ua Leuko Laboratory test result [facility] ([facility]) Color of Urine Laboratory test result [facility] ([facility]) Ketones [Presence] in Urine by Test strip Laboratory test result [facility] ([facility]) Clarity of Urine Laboratory test result [facility] ([facility]) Ua Specific [place] 1.010 1.003-1.030 [facility] NT ([facility]) Bilirubin.total [Presence] in Urine by Test strip Laboratory test res ult [facility] ([facility]) pH of Urine by Test strip 6.5 5.0-7.5 [facility] ([facility]) Urobilinogen [Mass/volume] in Urine by Test strip 0.2 E.U./dL 0.0-1.0 [facility] ([facility]) ID Date Data Source [id number] 11/22/2020 12:44:37 PM EDT [facility] Name Value Range Interpretation Code Description Data Ema rce(s) Supporting Document(s) POC GLUCOSE 184 mg/dL (70-99) H [facility] NOTIFIED NURSEPERFORMED BY CLINICAL S TAFF ID Date Data Source [id number] 11/22/2020 07:40:49 AM EDT [facility] Name Value Range Interpretation Code Description Data Ema rce(s) Supporting Document(s) POC GLUCOSE 124 mg/dL (70-99) H [facility] NOTIFIED NURSEPERFORMED BY CLINICAL S TAFF ID Date Data Source [id number] 11/22/2020 07:35:48 AM EDT [facility] Name Value Range Interpretation Code Description Data Ema rce(s) Supporting Document(s) SODIUM 139 mmol/L (136-145) [facility] POTASSIUM 4.2 mmol/L (3.6-5.2) [facility] CHLORIDE 113 mmol/L (100-108) H [facility] CO2 18 mmol/L (22-31) L [facility] ANION GAP 8 mmol/L (7-16) [facility] UREA NITROGEN 27 mg/dL (7-24) H [facility] CREATININE 0.95 mg/dL (0.80-1.30) [facility] BUN/CREAT RATIO 28.4 RATIO (10.0-20.0) H [facility] GLUCOSE 115 mg/dL (70-99) H [facility] CALCIUM 8.2 mg/dL (8.4-10.2) L [facility] GFR >60 ml/min/1.73m2 (>59) [facility] GFR ( AMER) >60 ml/min/1.73m2 (>59) [facility] GFR INTERPRETATION [facility] --NORMAL KIDNEY FUNCTION OR MILD DISEASE - GFR >OR= 60CHRONIC KIDNEY DISEASE - GFR 15 - 59RENAL FAILURE - GFR <15 Est. GFR calculation based on the MDRDstudy equation, which assumes a steadystate for creatinine. Est. GFR should notbe used for medication dosing. ID Date Data Source [id number] 11/22/2020 06:58:27 AM EDT [facility] Name Value Range Interpretation Code Description Data Ema rce(s) Supporting Document(s) WBC 5.1 10*3/uL (4.1-11.0) [facility] [place] RBC 2.90 10*6/uL (4.60-6.10) L [facility] HGB 8.1 g/dL (13.5-18.0) L [facility] HCT 24.4 % (41.0-53.0) L [facility] MCV 84.1 fL (80.0-95.0) [facility] MCH 27.9 pg (27.0-32.0) [facility] MCHC 33.2 g/dL (32.0-36.0) [facility] RDW 16.5 % (10.5-14.5) H [facility] PLT 125 10*3/uL (150-450) L [facility] MPV 9.3 fL (7.1-10.7) [facility] NEUT % 63.0 % (35.0-75.0) [facility] LYMPH % 11.0 % (16.0-52.0) L [facility] MONO % 15.8 % (0.0-8.0) H [facility] EOS % 8.3 % (0.0-5.0) H [facility] BASO % 1.9 % (0.0-4.0) [facility] NEUT # 3.2 10*3/uL (1.8-7.7) [facility] LYMPH # 0.6 10*3/uL (1.2-4.8) L [facility] MONO # 0.8 10*3/uL (0.0-0.8) [facility] Eosinophils [#/volume] in Blood by Automated count 0.4 10*3/uL (0.0-0 .5) [facility] BASO # 0.1 10*3/uL (0.0-0.2) [facility] ID Date Data Source [id number] 11/21/2020 09:42:27 PM EDT [facility] Name Value Range Interpretation Code Description Data Ema rce(s) Supporting Document(s) POC GLUCOSE 183 mg/dL (70-99) H [facility] NOTIFIED NURSEPERFORMED BY CLINICAL S TAFF ID Date Data Source [id number] 11/21/2020 06:01:55 PM EDT [facility] Name Value Range Interpretation Code Description Data Ema rce(s) Supporting Document(s) POC GLUCOSE 156 mg/dL (70-99) H [facility] NOTIFIED NURSEPERFORMED BY CLINICAL S TAFF ID Date Data Source [id number] 11/21/2020 01:53:27 PM EDT [facility] Name Value Range Interpretation Code Description Data Ema rce(s) Supporting Document(s) POC GLUCOSE 137 mg/dL (70-99) H [facility] NOTIFIED NURSEPERFORMED BY CLINICAL S TAFF ID Date Data Source [id number] 11/21/2020 08:51:25 AM EDT [facility] Name Value Range Interpretation Code Description Data Ema rce(s) Supporting Document(s) POC GLUCOSE 106 mg/dL (70-99) H [facility] PERFORMED BY CLINICAL STAFF ID Date Data Source [id number] 11/21/2020 08:20:09 AM EDT [facility] Name Value Range Interpretation Code Description Data Ema rce(s) Supporting Document(s) POC GLUCOSE 107 mg/dL (70-99) H [facility] NOTIFIED NURSEPERFORMED BY CLINICAL S TAFF ID Date Data Source [id number] 11/21/2020 08:40:54 AM EDT [facility] Name Value Range Interpretation Code Description Data Ema rce(s) Supporting Document(s) SODIUM 138 mmol/L (136-145) [facility] POTASSIUM 4.1 mmol/L (3.6-5.2) [facility] CHLORIDE 111 mmol/L (100-108) H [facility] CO2 18 mmol/L (22-31) L [facility] ANION GAP 9 mmol/L (7-16) [facility] UREA NITROGEN 39 mg/dL (7-24) H [facility] CREATININE 1.87 mg/dL (0.80-1.30) H [facility] BUN/CREAT RATIO 20.9 RATIO (10.0-20.0) H [facility] GLUCOSE 104 mg/dL (70-99) H [facility] CALCIUM 8.4 mg/dL (8.4-10.2) [facility] GFR 35 ml/min/1.73m2 (>59) L [facility] GFR ( AMER) 42 ml/min/1.73m2 (>59) L [facility] GFR INTERPRETATION [facility] --NORMAL KIDNEY FUNCTION OR MILD DISEASE - GFR >OR= 60CHRONIC KIDNEY DISEASE - GFR 15 - 59RENAL FAILURE - GFR <15 Est. GFR calculation based on the MDRDstudy equation, which assumes a steadystate for creatinine. Est. GFR should notbe used for medication dosing. ID Date Data Source [id number] 11/21/2020 08:19:58 AM EDT [facility] Name Value Range Interpretation Code Description Data Ema rce(s) Supporting Document(s) WBC 5.9 10*3/uL (4.1-11.0) [facility] [place] RBC 2.94 10*6/uL (4.60-6.10) L [facility] HGB 8.3 g/dL (13.5-18.0) L [facility] HCT 24.9 % (41.0-53.0) L [facility] MCV 84.6 fL (80.0-95.0) [facility] MCH 28.1 pg (27.0-32.0) [facility] MCHC 33.2 g/dL (32.0-36.0) [facility] RDW 16.5 % (10.5-14.5) H [facility] PLT 123 10*3/uL (150-450) L [facility] MPV 9.1 fL (7.1-10.7) [facility] NEUT % 70.3 % (35.0-75.0) [facility] LYMPH % 6.6 % (16.0-52.0) L [facility] MONO % 14.9 % (0.0-8.0) H [facility] EOS % 7.2 % (0.0-5.0) H [facility] BASO % 1.0 % (0.0-4.0) [facility] NEUT # 4.2 10*3/uL (1.8-7.7) [facility] LYMPH # 0.4 10*3/uL (1.2-4.8) L [facility] MONO # 0.9 10*3/uL (0.0-0.8) H [facility] Eosinophils [#/volume] in Blood by Automated count 0.4 10*3/uL (0.0-0 .5) [facility] BASO # 0.1 10*3/uL (0.0-0.2) [facility] ID Date Data Source [id number] 2020 09:31:54 PM EDT [facility] Name Value Range Interpretation Code Description Data Ema rce(s) Supporting Document(s) POC GLUCOSE 146 mg/dL (70-99) H [facility] NOTIFIED NURSEPERFORMED BY CLINICAL S TAFF ID Date Data Source [id number] 2020 05:20:16 PM EDT [facility] Name Value Range Interpretation Code Description Data Ema rce(s) Supporting Document(s) POC GLUCOSE 131 mg/dL (70-99) H [facility] NOTIFIED NURSEPERFORMED BY CLINICAL S TAFF ID Date Data Source [id number] 2020 11:56:19 AM EDT [facility] Name Value Range Interpretation Code Description Data Ema rce(s) Supporting Document(s) POC GLUCOSE 194 mg/dL (70-99) H [facility] NOTIFIED NURSEPERFORMED BY CLINICAL S TAFF ID Date Data Source [id number] 2020 09:15:41 AM EDT [facility] Name Value Range Interpretation Code Description Data Ema rce(s) Supporting Document(s) POC GLUCOSE 107 mg/dL (70-99) H [facility] PERFORMED BY CLINICAL STAFF ID Date Data Source [id number] 2020 03:33:54 PM EDT [facility] Name Value Range Interpretation Code Description Data Ema rce(s) Supporting Document(s) IRON,TOTAL @ 15 ug/dL (35-150) L [facility] [place] UIBC @ 184 ug/dL (130-375) [facility] TIBC @ 199 ug/dL (250-450) L [facility] % SATURATION 8 % (12-50) L [facility] [place] ID Date Data Source [id number] 2020 03:33:54 PM EDT [facility] Name Value Range Interpretation Code Description Data Ema rce(s) Supporting Document(s) FERRITIN @ 66 ng/mL (26-388) [facility] ID Date Data Source [id number] 2020 09:16:02 AM EDT [facility] Name Value Range Interpretation Code Description Data Ema rce(s) Supporting Document(s) MAGNESIUM 2.3 mg/dL (1.7-2.4) [facility] ID Date Data Source [id number] 2020 09:16:02 AM EDT [facility] Name Value Range Interpretation Code Description Data Ema rce(s) Supporting Document(s) SODIUM 138 mmol/L (136-145) [facility] POTASSIUM 3.9 mmol/L (3.6-5.2) [facility] CHLORIDE 109 mmol/L (100-108) H [facility] CO2 21 mmol/L (22-31) L [facility] ANION GAP 8 mmol/L (7-16) [facility] UREA NITROGEN 47 mg/dL (7-24) H [facility] CREATININE 2.38 mg/dL (0.80-1.30) H [facility] BUN/CREAT RATIO 19.7 RATIO (10.0-20.0) [facility] GLUCOSE 97 mg/dL (70-99) [facility] CALCIUM 8.3 mg/dL (8.4-10.2) L [facility] GFR 27 ml/min/1.73m2 (>59) L [facility] GFR ( AMER) 32 ml/min/1.73m2 (>59) L [facility] GFR INTERPRETATION [facility] --NORMAL KIDNEY FUNCTION OR MILD DISEASE - GFR >OR= 60CHRONIC KIDNEY DISEASE - GFR 15 - 59RENAL FAILURE - GFR <15 Est. GFR calculation based on the MDRDstudy equation, which assumes a steadystate for creatinine. Est. GFR should notbe used for medication dosing. ID Date Data Source [id number] 2020 08:35:06 AM EDT [facility] Name Value Range Interpretation Code Description Data Ema rce(s) Supporting Document(s) WBC 7.3 10*3/uL (4.1-11.0) [facility] [place] RBC 3.01 10*6/uL (4.60-6.10) L [facility] HGB 8.5 g/dL (13.5-18.0) L [facility] HCT 25.3 % (41.0-53.0) L [facility] MCV 84.2 fL (80.0-95.0) [facility] MCH 28.3 pg (27.0-32.0) [facility] MCHC 33.6 g/dL (32.0-36.0) [facility] RDW 16.0 % (10.5-14.5) H [facility] PLT 119 10*3/uL (150-450) L [facility] MPV 9.5 fL (7.1-10.7) [facility] NEUT % 76.4 % (35.0-75.0) H [facility] LYMPH % 5.5 % (16.0-52.0) L [facility] MONO % 11.3 % (0.0-8.0) H [facility] EOS % 6.0 % (0.0-5.0) H [facility] BASO % 0.8 % (0.0-4.0) [facility] NEUT # 5.6 10*3/uL (1.8-7.7) [facility] LYMPH # 0.4 10*3/uL (1.2-4.8) L [facility] MONO # 0.8 10*3/uL (0.0-0.8) [facility] Eosinophils [#/volume] in Blood by Automated count 0.4 10*3/uL (0.0-0 .5) [facility] BASO # 0.1 10*3/uL (0.0-0.2) [facility] ID Date Data Source [id number] 2020 06:43:31 AM EDT [facility] Name Value Range Interpretation Code Description Data Ema rce(s) Supporting Document(s) POC GLUCOSE 96 mg/dL (70-99) [facility] PERFORMED BY CLINICAL STAFF ID Date Data Source [id number] 2020 12:23:25 AM EDT [facility] Name Value Range Interpretation Code Description Data Ema rce(s) Supporting Document(s) POC GLUCOSE 108 mg/dL (70-99) H [facility] PERFORMED BY CLINICAL STAFF ID Date Data Source [id number] 11/19/2020 06:15:18 PM EDT [facility] Name Value Range Interpretation Code Description Data Ema rce(s) Supporting Document(s) POC GLUCOSE 153 mg/dL (70-99) H [facility] NOTIFIED NURSEPERFORMED BY CLINICAL S TAFF ID Date Data Source [id number] 2020 07:14:05 AM EDT [facility] Name Value Range Interpretation Code Description Data Ema rce(s) Supporting Document(s) POC GLUCOSE 120 mg/dL (70-99) H [facility] NOTIFIED NURSEPERFORMED BY CLINICAL S TAFF ID Date Data Source [id number] 11/19/2020 02:25:25 PM EDT [facility] Name Value Range Interpretation Code Description Data Ema rce(s) Supporting Document(s) TOTAL PROTEIN 5.1 g/dL (6.4-8.2) L [facility] ALBUMIN 1.9 g/dL (3.2-4.5) L [facility] GLOBULIN 3.2 g/dL (2.7-4.3) [facility] ALB/GLOB RATIO 0.6 RATIO [facility] BILIRUBIN,TOTAL 0.7 mg/dL (0.0-1.0) [facility] PLEASE NOTE:Total bilirubin results may be falselyelevated in patients taking Eltrombopag. BILIRUBIN,CONJUGATED 0.3 mg/dL (0.0-0.3) [facility] BILIRUBIN,UNCONJ. 0.4 mg/dL (0.0-0.7) [facility] ALKALINE PHOSPHATASE 63 U/L (45-117) [facility] AST (SGOT) 43 U/L (11-39) H [facility] ALT (SGPT) 21 U/L (12-78) [facility] ID Date Data Source [id number] 11/19/2020 08:23:57 AM EDT [facility] Name Value Range Interpretation Code Description Data Ema rce(s) Supporting Document(s) VANCOMYCIN RANDOM 13.1 ug/mL [facility] THERAPEUTIC RANGE IS ONLY AVAILABLE FOR PEAK AND TROUGH SPECIMENS. RANDOM LEVEL RESULTS MUST BE INTERPRETED BY THE PHYSICIAN. ID Date Data Source [id number] 11/19/2020 08:23:57 AM EDT [facility] [place] Name Value Range Interpretation Code Description Data Ema rce(s) Supporting Document(s) SODIUM 136 mmol/L (136-145) [facility] POTASSIUM 3.7 mmol/L (3.6-5.2) [facility] CHLORIDE 105 mmol/L (100-108) [facility] CO2 19 mmol/L (22-31) L [facility] ANION GAP 12 mmol/L (7-16) [facility] UREA NITROGEN 50 mg/dL (7-24) H [facility] CREATININE 2.59 mg/dL (0.80-1.30) H [facility] BUN/CREAT RATIO 19.3 RATIO (10.0-20.0) [facility] GLUCOSE 89 mg/dL (70-99) [facility] CALCIUM 8.2 mg/dL (8.4-10.2) L [facility] GFR 24 ml/min/1.73m2 (>59) L [facility] GFR ( AMER) 29 ml/min/1.73m2 (>59) L [facility] GFR INTERPRETATION [facility] --NORMAL KIDNEY FUNCTION OR MILD DISEASE - GFR >OR= 60CHRONIC KIDNEY DISEASE - GFR 15 - 59RENAL FAILURE - GFR <15 Est. GFR calculation based on the MDRDstudy equation, which assumes a steadystate for creatinine. Est. GFR should notbe used for medication dosing. ID Date Data Source [id number] 11/19/2020 08:02:08 AM EDT [facility] Name Value Range Interpretation Code Description Data Ema rce(s) Supporting Document(s) WBC 10.1 10*3/uL (4.1-11.0) [facility] RBC 2.79 10*6/uL (4.60-6.10) L [facility] HGB 7.9 g/dL (13.5-18.0) L [facility] HCT 23.6 % (41.0-53.0) L [facility] MCV 84.5 fL (80.0-95.0) [facility] MCH 28.2 pg (27.0-32.0) [facility] MCHC 33.4 g/dL (32.0-36.0) [facility] RDW 16.1 % (10.5-14.5) H [facility] PLT 104 10*3/uL (150-450) L [facility] MPV 9.2 fL (7.1-10.7) [facility] ID Date Data Source [id number] 11/19/2020 06:17:02 AM EDT [facility] Name Value Range Interpretation Code Description Data Ema rce(s) Supporting Document(s) POC GLUCOSE 108 mg/dL (70-99) H [facility] PERFORMED BY CLINICAL STAFF ID Date Data Source [id number] 11/19/2020 12:16:43 AM EDT [facility] Name Value Range Interpretation Code Description Data Ema rce(s) Supporting Document(s) POC GLUCOSE 148 mg/dL (70-99) H [facility] PERFORMED BY CLINICAL STAFF ID Date Data Source [id number] 2020 07:20:38 AM EDT [facility] SPECIMEN DESCRIPTION URINE, COLLE CTION METHOD NOT SPECIFIEDCULTURE RESULTS NO GROWTHREPORT STATUS FINAL 2020 Name Value Range Interpretation Code Description Data Ema rce(s) Supporting Document(s) ID Date Data Source [id number] 11/18/2020 05:46:48 PM EDT [facility] Name Value Range Interpretation Code Description Data Ema rce(s) Supporting Document(s) POC GLUCOSE 180 mg/dL (70-99) H [facility] NOTIFIED NURSEPERFORMED BY CLINICAL S TAFF ID Date Data Source [id number] 11/18/2020 01:55:22 PM EDT [facility] Name Value Range Interpretation Code Description Data Ema rce(s) Supporting Document(s) POC GLUCOSE 156 mg/dL (70-99) H [facility] PERFORMED BY CLINICAL STAFF ID Date Data Source [id number] 11/18/2020 01:26:32 PM EDT [facility] Name Value Range Interpretation Code Description Data Ema rce(s) Supporting Document(s) URINE WBC (0-5) [facility] URINE RBC (0-2) [facility] EPITHELIAL CELLS 1+ [HPF] [facility] BACTERIA 1+ [HPF] [facility] WBC CLUMPING 1+ [facility] ID Date Data Source [id number] 11/18/2020 01:14:40 PM EDT [facility] Name Value Range Interpretation Code Description Data Ema rce(s) Supporting Document(s) COLOR [facility] APPEARANCE [facility] SPEC GRAV URINE 1.016 (1.003-1.030) [facility] PH URINE 5.5 (5.0-7.5) [facility] LEUK ESTERASE 3+ (NEG) A [facility] NITRITE URINE (NEG) [facility] PROTEIN URINE 1+ (NEG) A [facility] GLUCOSE URINE (NEG) [facility] KETONE URINE (NEG) [facility] UROBILINOGEN 0.2 mg/dL (0-1.0) [facility] BILIRUBIN URINE (NEG) [facility] BLOOD/HGB URINE 3+ (NEG) A [facility] ID Date Data Source [id number] 11/21/2020 10:04:31 AM EDT [facility] SPECIMEN DESCRIPTION PERIPHERALSP ECIAL REQUESTS NONEGRAM STAIN GRAM NEGATIVE RODSALERTED CRITICAL RESULT TO DOREEN LIPSCOMB 5SIR @ 0940 11/19/2020 [place] [id number] CULTURE RESULTS PSEUDOMONAS AERUGINOSA PSEUDOMONAS AERUGINOSA BY [...] rce(s) Supporting Document(s) ID Date Data Source [id number] 11/23/2020 11:15:10 AM EDT [facility] SPECIMEN DESCRIPTION PERIPHERALSP ECIAL REQUESTS NONECULTURE RESULTS NO GROWTH 5 DAYSREPORT STATUS FINAL 11/23/2020 Name Value Range Interpretation Code Description Data Ema rce(s) Supporting Document(s) ID Date Data Source [id number] 11/18/2020 09:33:00 AM EDT [facility] DATE OF EXAM: 11/18/2020XAM: Ultrasound vascular: Bilateral [...] left Stevens's cyst. Professional interpretation performed at [facility] .End of diagnostic report for accession: [id number] Interpreted: Charbel Vizcaino MDTranscribed: 11/18/2020 09:32 AMSigned: 11/18/2020 09:33 AM Charbel Vizcaino MD [facility] # [id number] [facility] # [id number] Name Value Range Interpretation Code Description Data Ema rce(s) Supporting Document(s) ID Date Data Source [id number] 11/18/2020 07:03:40 AM EDT [facility] Name Value Range Interpretation Code Description Data Ema rce(s) Supporting Document(s) POC GLUCOSE 117 mg/dL (70-99) H [facility] PERFORMED BY CLINICAL STAFF ID Date Data Source [id number] 11/18/2020 07:24:24 AM EDT [facility] Name Value Range Interpretation Code Description Data Ema rce(s) Supporting Document(s) MAGNESIUM 2.2 mg/dL (1.7-2.4) [facility] ID Date Data Source [id number] 11/18/2020 07:24:24 AM EDT [facility] Name Value Range Interpretation Code Description Data Ema rce(s) Supporting Document(s) NT PRO BNP 223 pg/mL (0-450) [facility] ID Date Data Source [id number] 11/18/2020 07:24:24 AM EDT [facility] Name Value Range Interpretation Code Description Data Ema rce(s) Supporting Document(s) TROPONIN I <0.05 ng/mL (<0.05) [facility] Less than 0.05: Myocardial injury unlike lyGreater than or equal to 0.05: Highly suggestive of myocardial injuryCorrelation with rise and/or fall ofserial troponins, clinical symptomsand ECG changes is necessary. ID Date Data Source [id number] 11/18/2020 07:24:24 AM EDT [facility] Name Value Range Interpretation Code Description Data Ema rce(s) Supporting Document(s) SODIUM 137 mmol/L (136-145) [facility] POTASSIUM 4.1 mmol/L (3.6-5.2) [facility] CHLORIDE 105 mmol/L (100-108) [facility] CO2 25 mmol/L (22-31) [facility] ANION GAP 7 mmol/L (7-16) [facility] UREA NITROGEN 50 mg/dL (7-24) H [facility] CREATININE 2.22 mg/dL (0.80-1.30) H [facility] BUN/CREAT RATIO 22.5 RATIO (10.0-20.0) H [facility] GLUCOSE 127 mg/dL (70-99) H [facility] CALCIUM 9.3 mg/dL (8.4-10.2) [facility] GFR 29 ml/min/1.73m2 (>59) L [facility] GFR ( AMER) 35 ml/min/1.73m2 (>59) L [facility] GFR INTERPRETATION [facility] --NORMAL KIDNEY FUNCTION OR MILD DISEASE - GFR >OR= 60CHRONIC KIDNEY DISEASE - GFR 15 - 59RENAL FAILURE - GFR <15 Est. GFR calculation based on the MDRDstudy equation, which assumes a steadystate for creatinine. Est. GFR should notbe used for medication dosing. ID Date Data Source [id number] 11/18/2020 06:53:47 AM EDT [facility] Name Value Range Interpretation Code Description Data Ema rce(s) Supporting Document(s) WBC 3.7 10*3/uL (4.1-11.0) L [facility] RBC 3.44 10*6/uL (4.60-6.10) L [facility] HGB 9.6 g/dL (13.5-18.0) L [facility] HCT 29.1 % (41.0-53.0) L [facility] MCV 84.5 fL (80.0-95.0) [facility] MCH 27.9 pg (27.0-32.0) [facility] MCHC 33.1 g/dL (32.0-36.0) [facility] RDW 16.2 % (10.5-14.5) H [facility] PLT 116 10*3/uL (150-450) L [facility] MPV 8.9 fL (7.1-10.7) [facility] NEUT % 92.1 % (35.0-75.0) H [facility] LYMPH % 3.1 % (16.0-52.0) L [facility] MONO % 2.5 % (0.0-8.0) [facility] EOS % 2.1 % (0.0-5.0) [facility] BASO % 0.2 % (0.0-4.0) [facility] NEUT # 3.4 10*3/uL (1.8-7.7) [facility] LYMPH # 0.1 10*3/uL (1.2-4.8) L [facility] MONO # 0.1 10*3/uL (0.0-0.8) [facility] Eosinophils [#/volume] in Blood by Automated count 0.1 10*3/uL (0.0-0 .5) [facility] BASO # 0.0 10*3/uL (0.0-0.2) [facility] ID Date Data Source [id number] 11/18/2020 07:02:00 AM EDT [facility] Name Value Range Interpretation Code Description Data Ema rce(s) Supporting Document(s) LACTIC ACID 1.9 mmol/L (0.4-2.0) [facility] ID Date Data Source [id number] 11/18/2020 08:13:00 AM EDT [facility] DATE OF EXAM: 1EXAM: Portable c hest INDICATION: DYSPNEA COMPARISON: 02/18/2011 TECHNIQUE: AP upright. There is a limited degree of inspiration with mild accentuation of the pulmonary vascular markings. No focal area of pneumonia or atelectasis is seen. The mediastinum, heart, and pulmonary vascularity are within normal limits. IMPRESSION: No acute disease. Professional interpretation performed at [facility] .End of diagnostic report for accession: [id number] Interpreted: Charbel Vizcaino MDTranscribed: 11/18/2020 08:12 AMSigned: 11/18/2020 08:13 AM Charbel Vizcaino MD [facility] # [id number] [facility] # [id number] Name Value Range Interpretation Code Description Data Ema rce(s) Supporting Document(s) ID Date Data Source [id number] 11/18/2020 12:01:07 AM EDT [facility] Name Value Range Interpretation Code Description Data Ema rce(s) Supporting Document(s) POC GLUCOSE 156 mg/dL (70-99) H [facility] PERFORMED BY CLINICAL STAFF ID Date Data Source [id number] 11/17/2020 05:55:37 PM EDT [facility] Name Value Range Interpretation Code Description Data Ema rce(s) Supporting Document(s) POC GLUCOSE 137 mg/dL (70-99) H [facility] NOTIFIED NURSEPERFORMED BY CLINICAL S TAFF ID Date Data Source [id number] 11/17/2020 12:25:31 PM EDT [facility] Name Value Range Interpretation Code Description Data Ema rce(s) Supporting Document(s) POC GLUCOSE 131 mg/dL (70-99) H [facility] NOTIFIED NURSEPERFORMED BY CLINICAL S TAFF ID Date Data Source [id number] 11/17/2020 08:55:54 AM EDT [facility] Name Value Range Interpretation Code Description Data Ema rce(s) Supporting Document(s) SODIUM 141 mmol/L (136-145) [facility] POTASSIUM 4.1 mmol/L (3.6-5.2) [facility] CHLORIDE 109 mmol/L (100-108) H [facility] CO2 23 mmol/L (22-31) [facility] ANION GAP 9 mmol/L (7-16) [facility] UREA NITROGEN 51 mg/dL (7-24) H [facility] CREATININE 2.05 mg/dL (0.80-1.30) H [facility] BUN/CREAT RATIO 24.9 RATIO (10.0-20.0) H [facility] GLUCOSE 107 mg/dL (70-99) H [facility] CALCIUM 9.2 mg/dL (8.4-10.2) [facility] GFR 32 ml/min/1.73m2 (>59) L [facility] GFR ( AMER) 38 ml/min/1.73m2 (>59) L [facility] GFR INTERPRETATION [facility] --NORMAL KIDNEY FUNCTION OR MILD DISEASE - GFR >OR= 60CHRONIC KIDNEY DISEASE - GFR 15 - 59RENAL FAILURE - GFR <15 Est. GFR calculation based on the MDRDstudy equation, which assumes a steadystate for creatinine. Est. GFR should notbe used for medication dosing. ID Date Data Source [id number] 11/17/2020 08:35:35 AM EDT [facility] Name Value Range Interpretation Code Description Data Ema rce(s) Supporting Document(s) WBC 4.5 10*3/uL (4.1-11.0) [facility] RBC 3.11 10*6/uL (4.60-6.10) L [facility] HGB 8.5 g/dL (13.5-18.0) L [facility] HCT 26.5 % (41.0-53.0) L [facility] MCV 85.3 fL (80.0-95.0) [facility] MCH 27.4 pg (27.0-32.0) [facility] MCHC 32.1 g/dL (32.0-36.0) [facility] RDW 16.2 % (10.5-14.5) H [facility] PLT 102 10*3/uL (150-450) L [facility] MPV 9.4 fL (7.1-10.7) [facility] NEUT % 77.2 % (35.0-75.0) H [facility] LYMPH % 7.2 % (16.0-52.0) L [facility] MONO % 10.8 % (0.0-8.0) H [facility] EOS % 4.3 % (0.0-5.0) [facility] BASO % 0.5 % (0.0-4.0) [facility] NEUT # 3.5 10*3/uL (1.8-7.7) [facility] LYMPH # 0.3 10*3/uL (1.2-4.8) L [facility] MONO # 0.5 10*3/uL (0.0-0.8) [facility] Eosinophils [#/volume] in Blood by Automated count 0.2 10*3/uL (0.0-0 .5) [facility] BASO # 0.0 10*3/uL (0.0-0.2) [facility] ID Date Data Source [id number] 11/17/2020 05:32:32 AM EDT [facility] Name Value Range Interpretation Code Description Data Ema rce(s) Supporting Document(s) POC GLUCOSE 112 mg/dL (70-99) H [facility] NOTIFIED NURSEPERFORMED BY CLINICAL S TAFF ID Date Data Source [id number] 11/17/2020 03:04:02 AM EDT [facility] Name Value Range Interpretation Code Description Data Ema rce(s) Supporting Document(s) STOOL OCCULT BLOOD (NEG) [facility] ID Date Data Source [id number] 11/17/2020 12:19:03 AM EDT [facility] Name Value Range Interpretation Code Description Data Ema rce(s) Supporting Document(s) POC GLUCOSE 134 mg/dL (70-99) H [facility] NOTIFIED NURSEPERFORMED BY CLINICAL S TAFF ID Date Data Source [id number] 11/16/2020 06:51:12 PM EDT [facility] Name Value Range Interpretation Code Description Data Ema rce(s) Supporting Document(s) POC GLUCOSE 120 mg/dL (70-99) H [facility] PERFORMED BY CLINICAL STAFF ID Date Data Source [id number] 11/16/2020 06:47:00 PM EDT [facility] DATE OF EXAM: 11/16/2020T ABDOMEN [...] position. X7End of diagnostic report for accession: [id number] Interpreted: Charbel Kilpatrick MDTranscribed: 11/16/2020 06:41 PMSigned: 11/16/2020 06:47 PM Charbel Kilpatrick MD ------- [facility] # [id number] [facility] # [id number] Name Value Range Interpretation Code Description Data Ema rce(s) Supporting Document(s) ID Date Data Source [id number] 11/16/2020 01:15:02 PM EDT [facility] Name Value Range Interpretation Code Description Data Ema rce(s) Supporting Document(s) FLUID CREATININE 1.75 mg/dL [facility] ID Date Data Source [id number] 11/16/2020 12:52:45 PM EDT [facility] Name Value Range Interpretation Code Description Data Ema rce(s) Supporting Document(s) FLUID SOURCE [facility] ID Date Data Source [id number] 11/16/2020 12:25:11 PM EDT [facility] Name Value Range Interpretation Code Description Data Ema rce(s) Supporting Document(s) POC GLUCOSE 149 mg/dL (70-99) H [facility] PERFORMED BY CLINICAL STAFF ID Date Data Source [id number] 11/16/2020 01:18:38 PM EDT [facility] Name Value Range Interpretation Code Description Data Ema rce(s) Supporting Document(s) SODIUM 142 mmol/L (136-145) [facility] POTASSIUM 3.9 mmol/L (3.6-5.2) [facility] CHLORIDE 109 mmol/L (100-108) H [facility] CO2 27 mmol/L (22-31) [facility] ANION GAP 6 mmol/L (7-16) L [facility] UREA NITROGEN 48 mg/dL (7-24) H [facility] CREATININE 1.97 mg/dL (0.80-1.30) H [facility] BUN/CREAT RATIO 24.4 RATIO (10.0-20.0) H [facility] GLUCOSE 149 mg/dL (70-99) H [facility] CALCIUM 9.4 mg/dL (8.4-10.2) [facility] TOTAL PROTEIN 6.5 g/dL (6.4-8.2) [facility] ALBUMIN 2.5 g/dL (3.2-4.5) L [facility] GLOBULIN 4.0 g/dL (2.7-4.3) [facility] ALB/GLOB RATIO 0.6 RATIO [facility] ALKALINE PHOSPHATASE 72 U/L (45-117) [facility] BILIRUBIN,TOTAL 0.7 mg/dL (0.0-1.0) [facility] PLEASE NOTE:Total bilirubin results may be falselyelevated in patients taking Eltrombopag. AST (SGOT) 33 U/L (11-39) [facility] ALT (SGPT) 13 U/L (12-78) [facility] GFR 33 ml/min/1.73m2 (>59) L [facility] GFR ( AMER) 40 ml/min/1.73m2 (>59) L [facility] GFR INTERPRETATION [facility] --NORMAL KIDNEY FUNCTION OR MILD DISEASE - GFR >OR= 60CHRONIC KIDNEY DISEASE - GFR 15 - 59RENAL FAILURE - GFR <15 Est. GFR calculation based on the MDRDstudy equation, which assumes a steadystate for creatinine. Est. GFR should notbe used for medication dosing. ID Date Data Source [id number] 11/16/2020 12:50:19 PM EDT [facility] Name Value Range Interpretation Code Description Data Ema rce(s) Supporting Document(s) WBC 6.5 10*3/uL (4.1-11.0) [facility] RBC 3.22 10*6/uL (4.60-6.10) L [facility] HGB 8.9 g/dL (13.5-18.0) L [facility] HCT 27.3 % (41.0-53.0) L [facility] MCV 84.7 fL (80.0-95.0) [facility] MCH 27.6 pg (27.0-32.0) [facility] MCHC 32.6 g/dL (32.0-36.0) [facility] RDW 16.3 % (10.5-14.5) H [facility] PLT 102 10*3/uL (150-450) L [facility] MPV 8.9 fL (7.1-10.7) [facility] NEUT % 84.9 % (35.0-75.0) H [facility] LYMPH % 3.8 % (16.0-52.0) L [facility] MONO % 9.5 % (0.0-8.0) H [facility] EOS % 1.7 % (0.0-5.0) [facility] BASO % 0.1 % (0.0-4.0) [facility] NEUT # 5.5 10*3/uL (1.8-7.7) [facility] LYMPH # 0.2 10*3/uL (1.2-4.8) L [facility] MONO # 0.6 10*3/uL (0.0-0.8) [facility] Eosinophils [#/volume] in Blood by Automated count 0.1 10*3/uL (0.0-0 .5) [facility] BASO # 0.0 10*3/uL (0.0-0.2) [facility] ID Date Data Source [id number] 11/16/2020 07:25:10 AM EDT [facility] Name Value Range Interpretation Code Description Data Ema rce(s) Supporting Document(s) SODIUM 142 mmol/L (136-145) [facility] POTASSIUM 4.4 mmol/L (3.6-5.2) [facility] CHLORIDE 111 mmol/L (100-108) H [facility] CO2 25 mmol/L (22-31) [facility] ANION GAP 6 mmol/L (7-16) L [facility] UREA NITROGEN 48 mg/dL (7-24) H [facility] CREATININE 1.86 mg/dL (0.80-1.30) H [facility] BUN/CREAT RATIO 25.8 RATIO (10.0-20.0) H [facility] GLUCOSE 142 mg/dL (70-99) H [facility] CALCIUM 9.5 mg/dL (8.4-10.2) [facility] GFR 35 ml/min/1.73m2 (>59) L [facility] GFR ( AMER) 43 ml/min/1.73m2 (>59) L [facility] GFR INTERPRETATION [facility] --NORMAL KIDNEY FUNCTION OR MILD DISEASE - GFR >OR= 60CHRONIC KIDNEY DISEASE - GFR 15 - 59RENAL FAILURE - GFR <15 Est. GFR calculation based on the MDRDstudy equation, which assumes a steadystate for creatinine. Est. GFR should notbe used for medication dosing. ID Date Data Source [id number] 11/16/2020 06:44:48 AM EDT [facility] Name Value Range Interpretation Code Description Data Ema rce(s) Supporting Document(s) WBC 6.0 10*3/uL (4.1-11.0) [facility] RBC 3.20 10*6/uL (4.60-6.10) L [facility] HGB 9.2 g/dL (13.5-18.0) L [facility] HCT 27.4 % (41.0-53.0) L [facility] MCV 85.5 fL (80.0-95.0) [facility] MCH 28.6 pg (27.0-32.0) [facility] MCHC 33.4 g/dL (32.0-36.0) [facility] RDW 16.3 % (10.5-14.5) H [facility] PLT 92 10*3/uL (150-450) L [facility] MPV 9.2 fL (7.1-10.7) [facility] NEUT % 82.5 % (35.0-75.0) H [facility] LYMPH % 3.8 % (16.0-52.0) L [facility] MONO % 11.3 % (0.0-8.0) H [facility] EOS % 2.2 % (0.0-5.0) [facility] BASO % 0.2 % (0.0-4.0) [facility] NEUT # 5.0 10*3/uL (1.8-7.7) [facility] LYMPH # 0.2 10*3/uL (1.2-4.8) L [facility] MONO # 0.7 10*3/uL (0.0-0.8) [facility] Eosinophils [#/volume] in Blood by Automated count 0.1 10*3/uL (0.0-0 .5) [facility] BASO # 0.0 10*3/uL (0.0-0.2) [facility] ID Date Data Source [id number] 11/16/2020 06:06:03 AM EDT [facility] Name Value Range Interpretation Code Description Data Ema rce(s) Supporting Document(s) POC GLUCOSE 141 mg/dL (70-99) H [facility] NOTIFIED NURSEPERFORMED BY CLINICAL S TAFF ID Date Data Source [id number] 11/16/2020 12:07:42 AM EDT [facility] Name Value Range Interpretation Code Description Data Ema rce(s) Supporting Document(s) POC GLUCOSE 134 mg/dL (70-99) H [facility] NOTIFIED NURSEPERFORMED BY CLINICAL S TAFF ID Date Data Source [id number] 11/15/2020 06:20:11 PM EDT [facility] Name Value Range Interpretation Code Description Data Ema rce(s) Supporting Document(s) POC GLUCOSE 155 mg/dL (70-99) H [facility] NOTIFIED NURSEPERFORMED BY CLINICAL S TAFF ID Date Data Source [id number] 11/15/2020 12:38:28 PM EDT [facility] Name Value Range Interpretation Code Description Data Ema rce(s) Supporting Document(s) POC GLUCOSE 160 mg/dL (70-99) H [facility] NOTIFIED NURSEPERFORMED BY CLINICAL S TAFF ID Date Data Source [id number] 11/15/2020 12:50:54 PM EDT [facility] Name Value Range Interpretation Code Description Data Ema rce(s) Supporting Document(s) SODIUM 141 mmol/L (136-145) [facility] POTASSIUM 4.1 mmol/L (3.6-5.2) [facility] CHLORIDE 108 mmol/L (100-108) [facility] CO2 26 mmol/L (22-31) [facility] ANION GAP 7 mmol/L (7-16) [facility] UREA NITROGEN 36 mg/dL (7-24) H [facility] CREATININE 1.68 mg/dL (0.80-1.30) H [facility] BUN/CREAT RATIO 21.4 RATIO (10.0-20.0) H [facility] GLUCOSE 152 mg/dL (70-99) H [facility] CALCIUM 9.7 mg/dL (8.4-10.2) [facility] TOTAL PROTEIN 6.5 g/dL (6.4-8.2) [facility] ALBUMIN 2.7 g/dL (3.2-4.5) L [facility] GLOBULIN 3.8 g/dL (2.7-4.3) [facility] ALB/GLOB RATIO 0.7 RATIO [facility] ALKALINE PHOSPHATASE 72 U/L (45-117) [facility] BILIRUBIN,TOTAL 0.7 mg/dL (0.0-1.0) [facility] PLEASE NOTE:Total bilirubin results may be falselyelevated in patients taking Eltrombopag. AST (SGOT) 31 U/L (11-39) [facility] ALT (SGPT) 18 U/L (12-78) [facility] GFR 40 ml/min/1.73m2 (>59) L [facility] GFR ( AMER) 48 ml/min/1.73m2 (>59) L [facility] GFR INTERPRETATION [facility] --NORMAL KIDNEY FUNCTION OR MILD DISEASE - GFR >OR= 60CHRONIC KIDNEY DISEASE - GFR 15 - 59RENAL FAILURE - GFR <15 Est. GFR calculation based on the MDRDstudy equation, which assumes a steadystate for creatinine. Est. GFR should notbe used for medication dosing. ID Date Data Source [id number] 11/15/2020 12:11:25 PM EDT [facility] Name Value Range Interpretation Code Description Data Ema rce(s) Supporting Document(s) WBC 7.9 10*3/uL (4.1-11.0) [facility] [place] RBC 3.22 10*6/uL (4.60-6.10) L [facility] HGB 9.0 g/dL (13.5-18.0) L [facility] HCT 27.3 % (41.0-53.0) L [facility] MCV 84.8 fL (80.0-95.0) [facility] MCH 28.1 pg (27.0-32.0) [facility] MCHC 33.1 g/dL (32.0-36.0) [facility] RDW 16.1 % (10.5-14.5) H [facility] PLT 112 10*3/uL (150-450) L [facility] MPV 9.3 fL (7.1-10.7) [facility] ID Date Data Source [id number] 11/15/2020 05:46:43 AM EDT [facility] Name Value Range Interpretation Code Description Data Ema rce(s) Supporting Document(s) POC GLUCOSE 156 mg/dL (70-99) H [facility] NOTIFIED NURSEPERFORMED BY CLINICAL S TAFF ID Date Data Source [id number] 11/15/2020 12:06:03 AM EDT [facility] Name Value Range Interpretation Code Description Data Ema rce(s) Supporting Document(s) POC GLUCOSE 153 mg/dL (70-99) [facility] [place] [facility] NOTIFIED NURSEPERFORMED BY CLINICAL S TAFF ID Date Data Source [id number] 11/14/2020 08:19:00 PM EDT [facility] DATE OF EXAM: 11/14/2020XAM: ABDOMINAL X-RAY. HISTORY: STENT TECHNIQUE: Single supine view the abdomen is obtained. Portions of the upper abdomen are excluded from the image [id number]. COMPARISON: Abdominal x-ray dated 02/18/2011. CT abdomen [...] bilateral hip osteoarthritis. Professional interpretation performed at [facility] .End of diagnostic report for accession: [id number] Interpreted: Marielena Simmons MDTranscribed: 11/14/2020 08:17 PMSigned: 11/14/2020 08:19 PM Marielena Simmons MD [facility] # [id number] [facility] # [id number] Name Value Range Interpretation Code Description Data Ema rce(s) Supporting Document(s) ID Date Data Source [id number] 11/14/2020 06:01:30 PM EDT [facility] [place] [facility] [place] Name Value Range Interpretation Code Description Data Ema rce(s) Supporting Document(s) POC GLUCOSE 147 mg/dL (70-99) [facility] [place] PERFORMED BY CLINICAL STAFF ID Date Data Source [id number] 11/14/2020 11:20:05 AM EDT [facility] Name Value Range Interpretation Code Description Data Ema rce(s) Supporting Document(s) POC GLUCOSE 182 mg/dL (70-99) [facility] [place] [facility] NOTIFIED NURSEPERFORMED BY CLINICAL S TAFF ID Date Data Source [id number] 11/14/2020 08:29:58 AM EDT [facility] Name Value Range Interpretation Code Description Data Ema rce(s) Supporting Document(s) SODIUM 143 mmol/L (136-145) [facility] POTASSIUM 4.7 mmol/L (3.6-5.2) [facility] CHLORIDE 112 mmol/L (100-108) [facility] CO2 24 mmol/L (22-31) [facility] ANION GAP 7 mmol/L (7-16) [facility] UREA NITROGEN 22 mg/dL (7-24) [facility] CREATININE 1.09 mg/dL (0.80-1.30) [facility] BUN/CREAT RATIO 20.2 RATIO (10.0-20.0) [facility] GLUCOSE 201 mg/dL (70-99) [facility] CALCIUM 9.9 mg/dL (8.4-10.2) [facility] GFR >60 ml/min/1.73m2 (>59) [facility] GFR ( AMER) >60 ml/min/1.73m2 (>59) [facility] GFR INTERPRETATION [facility] --NORMAL KIDNEY FUNCTION OR MILD DISEASE - GFR >OR= 60CHRONIC KIDNEY DISEASE - GFR 15 - 59RENAL FAILURE - GFR <15 Est. GFR calculation based on the MDRDstudy equation, which assumes a steadystate for creatinine. Est. GFR should notbe used for medication dosing. ID Date Data Source [id number] 11/14/2020 08:10:07 AM EDT [facility] [place] Name Value Range Interpretation Code Description Data Ema rce(s) Supporting Document(s) WBC 7.7 10*3/uL (4.1-11.0) [facility] [place] [place] RBC 3.25 10*6/uL (4.60-6.10) L [facility] HGB 9.3 g/dL (13.5-18.0) [facility] HCT 28.2 % (41.0-53.0) [facility] MCV 86.7 fL (80.0-95.0) [facility] MCH 28.5 pg (27.0-32.0) [facility] MCHC 32.9 g/dL (32.0-36.0) [facility] RDW 16.6 % (10.5-14.5) [facility] PLT 113 10*3/uL (150-450) [facility] MPV 9.4 fL (7.1-10.7) [facility] [facility] ID Date Data Source [id number] 11/14/2020 06:02:40 AM EDT [facility] Name Value Range Interpretation Code Description Data Ema rce(s) Supporting Document(s) POC GLUCOSE 199 mg/dL (70-99) H [facility] PERFORMED BY CLINICAL STAFF ID Date Data Source [id number] 11/13/2020 09:40:55 PM EDT [facility] [place] Name Value Range Interpretation Code Description Data Ema rce(s) Supporting Document(s) POC GLUCOSE 171 mg/dL (70-99) H [facility] PERFORMED BY CLINICAL STAFF ID Date Data Source [id number] 11/13/2020 08:27:01 PM EDT [facility] Name Value Range Interpretation Code Description Data Ema rce(s) Supporting Document(s) HEMOGLOBIN A1C @ 6.6 % (4.0-6.0) H [facility] Performed using Siemens [place] immunoassa y.Care must be taken when interpreting [id number] in patients with a hemoglobin variantor decreased erythrocyte lifespan. Values 5.7 - 6.4% suggest prediabetes.Values >=6.5% are diagnostic for diabetes.REFERENCE: DIABETES CARE 2018: 41(S13-S27).PERFORMED AT [address] [facility] [address] EST AVER[place] GLUCOSE 143 mg/dL [facility] ID Date Data Source [id number] 11/13/2020 07:05:42 PM EDT [facility] Name Value Range Interpretation Code Description Data Ema rce(s) Supporting Document(s) POC GLUCOSE 193 mg/dL (70-99) H [facility] Kwong PERFORMED BY CLINICAL STAFF ID Date Data Source [id number] 2020 11:32:00 AM EDT [facility] [place], [place] [address]GIBSIBX NAME: SARINA LINARESDATE OF : 2REPORT: OPERATIONPATIENT NUMBER: [id number] STATUS: IPMEDICAL RECORD NUMBER: [id number] OF ADMISSION: 1DATE OF DISCHARGE:ROOM: 04DATE OF PROCEDURE: 11/13/2020ATIENT OF: LEVI BhaktaREOPERATIVE DIAGNOSES: Bladder neck contracture, prostate cancer withneurogenic bladder, urinary incontinence, and urothelial cell carcinoma ofthe bladder.POSTOPERATIVE DIAGNOSES: Bladder neck contracture, prostate cancer withneurogenic bladder, urinary incontinence, and urothelial cell carcinoma ofthe bladder.SURGEON: Krista Kitchen MDANESTHESIA: General anesthesia.ESTIMATED BLOOD LOSS: Approximately 300 cc.IV FLUIDS: Approximately 2000 cc of crystalloid.COMPLICATIONS: None.DRAINS: A 10-mm GEOFF drain and 7-Icelandic single J stent bilaterally.SPECIMENS: Bladder, prostate, and [...] ureter, I then clipped with 10 mm Ixa-m-douPavx clip and then transected and I continued [...] ileoconduit. Prior to closing the anastomosis, a 7-Icelandic single Jstent was advanced up from the [...] Kitchen, MDDictated: 11/13/2020 17:08DT: 11/13/2020 17:16Job #: [id number]: [facility] computer generated reports are not confirmed orauthenticated unless they are signed by the providerElectronically Authenticated by:KRISTA KITCHEN MD On 2020 11:32 AM EDT Name Value Range Interpretation Code Description Data Ema rce(s) Supporting Document(s) ID Date Data Source [id number] 11/13/2020 04:57:08 PM EDT [facility] Name Value Range Interpretation Code Description Data Ema rce(s) Supporting Document(s) POC GLUCOSE 166 mg/dL (70-99) H Lab [facility] NOTIFIED PROVIDERNOTIFIED NURSEPERFORMED BY CLINICAL STAFF ID Date Data Source [id number] 11/13/2020 12:03:13 PM EDT [facility] Name Value Range Interpretation Code Description Data Ema rce(s) Supporting Document(s) POC GLUCOSE 134 mg/dL (70-99) H Lab [facility] PERFORMED BY CLINICAL STAFF ID Date Data Source [id number] 11/13/2020 08:24:00 AM EDT [facility] ([facility]) Name Value Range Interpretation Code Description Data Ema rce(s) Supporting Document(s) Surgical pathology study Laboratory test result [facility] ([facility]) [facility] [address] [place] [address] SURGICAL PATHOLOGY REPORT Patient Name:SARINA LINARES :1940 [...] attached portion of the possible left ureter RUI; the entire prostate gland sectioned from apex [...] [facility] [address] [place] [address] Technical component performed at [facility], Histopathology, [address] [place] [address], [address]. Reported at [facility], [address] [place] [address], [address]. This report may include immunohistochemical or in-situ hybridization results. Testing was developed and the performance characteristics determined by [facility], as required by CLIA '88. The FDA has determined that approval for specific use is not necessary for clinical use. The quality of Hematoxylin and Eosin stains and as applicable, for all immunohistochemical and/or special stains, including positive and negative controls, were reviewed and considered appropriate. ICD codes: Z85.46 CPT4 codes: A: 84238C B: 46244V C: 02754D ID Date Data Source [id number] 11/22/2020 12:14:35 AM EDT [place], [place] [address]Tel# SURGICAL PATHOLOGY REPORTPatient Name:SARINA LINARES:2Received:11/14/2020ccession #:[id number](s) [...] the attached portion ofthe possible left ureter RUI; the entire prostate gland sectioned fromapex to [...] Out By Anisa Mcmillan D.O. vlcPathology Associates [address] [address]Emmyqsvwx component performed at [facility], Histopathology, [address] [place] [address], [facility].Reported at [facility], [address] [place] [address], [address].This report may include immunohistochemical or in-situ hybridizationresults. Testing was developed and the performance characteristicsdetermined by [facility], as required byCLIA '88. The FDA has determined that approval for specific use is notnecessary for clinical use. The quality of Hematoxylin and Eosin stainsand as applicable, for all immunohistochemical and/or special stains,including positive and negative controls, were reviewed and consideredappropriate.ICD codes: Z85.46CPT4 codes: A: 47716XU: 28381SC: 90218Y Name Value Range Interpretation Code Description Data Ema rce(s) Supporting Document(s) ID Date Data Source [id number] 11/06/2020 02:53:00 PM EDT [facility] ([facility]) Name Value Range Interpretation Code Description Data Ema rce(s) Supporting Document(s) Protein [Presence] in Urine by Test strip 30 mg/dL [facility] ([facility]) Glucose [Presence] in Urine Laboratory test result [facility] ([facility]) Ua Nitrite Laboratory test result [facility] ([facility]) Blood [Presence] in Urine by Visual Laboratory test result [facility] ([facility]) Ua Leuko Laboratory test result [facility] ([facility]) Ketones [Presence] in Urine by Test strip Laboratory test result [facility] ([facility]) Color of Urine Laboratory test result [facility] ([facility]) Ua Specific [place] 1.015 1.003-1.030 [facility] ([facility]) Clarity of Urine Laboratory test result [facility] ([facility]) pH of Urine by Test strip 7.0 5.0-7.5 [facility] ([facility]) Bilirubin.total [Presence] in Urine by Test strip Laboratory test res ult [facility] ([facility]) Urobilinogen [Mass/volume] in Urine by Test strip 0.2 E.U./dL 0.0-1.0 [facility] ([facility]) ID Date Data Source [id number] 11/06/2020 02:51:00 PM EDT [facility] ([facility]) Name Value Range Interpretation Code Description Data Ema rce(s) Supporting Document(s) Bacteria identified in Urine by Culture Laboratory test result [facility] ([facility]) SPECIMEN DESCRIPTION URINE, COLLE CTION METHOD NOT SPECIFIED CULTURE RESULTS MIXED UROGENITAL DEIRDRE; PLEASE SUBMIT A NEW SPEC IMEN IF CLINICALLY INDICATED. REPORT STATUS FINAL 11/08/2020 ID Date Data Source [id number] 11/08/2020 07:41:09 AM EDT Laboratory [facility] - CORE SPECIMEN DESCRIPTION URINE, COLLE CTION METHOD NOT SPECIFIEDCULTURE RESULTS MIXED UROGENITAL DEIRDRE; PLEASE SUBMIT A NEW SPEC IMEN IF CLINICALLY INDICATED.REPORT STATUS FINAL 11/08/2020 Name Value Range Interpretation Code Description Data Ema rce(s) Supporting Document(s) ID Date Data Source [id number] 11/06/2020 02:00:50 PM EDT Lab [facility] SPEC EXP DATE 11/16/2020ATI ENT ABO/Rh A POSITIVEANTIBODY SCREEN NEGATIVETESTING SITE PERFORMED AT [address] [place] [address] BANK COMMENT BLOOD TYPE CONFIRMED. Name Value Range Interpretation Code Description Data Ema rce(s) Supporting Document(s) ID Date Data Source [id number] 11/06/2020 01:36:41 PM EDT [facility] [place] Name Value Range Interpretation Code Description Data Ema rce(s) Supporting Document(s) SODIUM 140 mmol/L (136-145) [facility] mac[facility] ISRAEL POTASSIUM 3.9 mmol/L (3.6-5.2) [facility] CHLORIDE 110 mmol/L (100-108) H [facility] CO2 27 mmol/L (22-31) [facility] ANION GAP 3 mmol/L (7-16) L [facility] UREA NITROGEN 16 mg/dL (7-24) [facility] CREATININE 0.77 mg/dL (0.80-1.30) L [facility] BUN/CREAT RATIO 20.8 RATIO (10.0-20.0) H [facility] GLUCOSE 116 mg/dL (70-99) H [facility] CALCIUM 10.1 mg/dL (8.4-10.2) [facility] TOTAL PROTEIN 7.1 g/dL (6.4-8.2) [facility] ALBUMIN 3.1 g/dL (3.2-4.5) L [facility] GLOBULIN 4.0 g/dL (2.7-4.3) [facility] ALB/GLOB RATIO 0.8 RATIO [facility] ALKALINE PHOSPHATASE 94 U/L (45-117) [facility] BILIRUBIN,TOTAL 0.6 mg/dL (0.0-1.0) [facility] PLEASE NOTE:Total bilirubin results may be falselyelevated in patients taking Eltrombopag. AST (SGOT) 38 U/L (11-39) [facility] ALT (SGPT) 31 U/L (12-78) [facility] GFR >60 ml/min/1.73m2 (>59) [facility] GFR ( AMER) >60 ml/min/1.73m2 (>59) [facility] GFR INTERPRETATION [facility] --NORMAL KIDNEY FUNCTION OR MILD DISEASE - GFR >OR= 60CHRONIC KIDNEY DISEASE - GFR 15 - 59RENAL FAILURE - GFR <15 Est. GFR calculation based on the MDRDstudy equation, which assumes a steadystate for creatinine. Est. GFR should notbe used for medication dosing. ID Date Data Source [id number] 11/06/2020 01:25:50 PM EDT [facility] Name Value Range Interpretation Code Description Data Ema rce(s) Supporting Document(s) HEMOGLOBIN A1C @ 6.7 % (4.0-6.0) H [facility] Performed using Provasculonta immunoassa y.Care must be taken when interpreting [id number] in patients with a hemoglobin variantor decreased erythrocyte lifespan. Values 5.7 - 6.4% suggest prediabetes.Values >=6.5% are diagnostic for diabetes.REFERENCE: DIABETES CARE 2018: 41(S13-S27).PERFORMED AT [address] [place] [address] EST [place]ERAGE GLUCOSE 146 mg/dL [facility] [place] ID Date Data Source [id number] 11/06/2020 01:09:23 PM EDT [facility] [place] Name Value Range Interpretation Code Description Data Ema rce(s) Supporting Document(s) WBC 3.2 10*3/uL (4.1-11.0) L [facility] [place] RBC 3.44 10*6/uL (4.60-6.10) L [facility] HGB 9.6 g/dL (13.5-18.0) L [facility] HCT 28.9 % (41.0-53.0) L [facility] PERFORMED AT [address] [place] [address] MCV 84.2 fL (80.0-95.0) [facility] MCH 27.9 pg (27.0-32.0) [facility] MCHC 33.2 g/dL (32.0-36.0) [facility] RDW 15.8 % (10.5-14.5) H [facility] PLT 117 10*3/uL (150-450) L [facility] MPV 8.8 fL (7.1-10.7) [facility] NEUT % 69.0 % (35.0-75.0) [facility] LYMPH % 10.3 % (16.0-52.0) L [facility] MONO % 11.9 % (0.0-8.0) H [facility] EOS % 6.5 % (0.0-5.0) H [facility] BASO % 2.3 % (0.0-4.0) [facility] NEUT # 2.2 10*3/uL (1.8-7.7) [facility] LYMPH # 0.3 10*3/uL (1.2-4.8) L [facility] MONO # 0.4 10*3/uL (0.0-0.8) [facility] Eosinophils [#/volume] in Blood by Automated count 0.2 10*3/uL (0.0-0 .5) [facility] BASO # 0.1 10*3/uL (0.0-0.2) [facility] ID Date Data Source [id number] 07/20/2020 03:20:00 PM EST [facility] ([facility]) Name Value Range Interpretation Code Description Data Ema rce(s) Supporting Document(s) Bacteria identified in Urine by Culture Laboratory test result [facility] SPECIMEN DESCRIPTION CATHETER,IND WELLING CULTURE RESULTS MIXED UROGENITAL DEIRDRE; PLEASE SUBMIT A NEW SPEC IMEN IF CLINICALLY INDICATED. REPORT STATUS FINAL 07/22/2020 ID Date Data Source [id number] 07/22/2020 09:37:50 AM EST [facility] - CORE SPECIMEN DESCRIPTION CATHETER,IND WELLINGCULTURE RESULTS MIXED UROGENITAL DEIRDRE; PLEASE SUBMIT A NEW SPEC IMEN IF CLINICALLY INDICATED.REPORT STATUS FINAL 07/22/2020 Name Value Range Interpretation Code Description Data Ema rce(s) Supporting Document(s) ID Date Data Source [id number] 07/20/2020 01:20:00 PM EST [facility] ([facility]) Name Value Range Interpretation Code Description Data Ema rce(s) Supporting Document(s) Glucose [Presence] in Urine Laboratory test result [facility] ([facility]) Protein [Presence] in Urine by Test strip 30 mg/dL [facility] ([facility]) Ua Nitrite Laboratory test result [facility] ([facility]) Ua Leuko Laboratory test result [facility] ([facility]) Color of Urine Laboratory test result [facility] ([facility]) Blood [Presence] in Urine by Visual Laboratory test result [facility] ([facility]) Ketones [Presence] in Urine by Test strip Laboratory test result [facility] ([facility]) Clarity of Urine Laboratory test result [facility] ([facility]) Ua Specific [place] 1.015 1.003-1.030 [facility] NT ([facility]) pH of Urine by Test strip 7.0 5.0-7.5 [facility] ([facility]) Bilirubin.total [Presence] in Urine by Test strip Laboratory test res ult [facility] ([facility]) Urobilinogen [Mass/volume] in Urine by Test strip 0.2 E.U./dL 0.0-1.0 [facility] ([facility]) ID Date Data Source [id number] 05/30/2020 02:17:00 PM EST [facility] ([facility]) Name Value Range Interpretation Code Description Data Ema rce(s) Supporting Document(s) Bacteria identified in Urine by Culture Laboratory test result [facility] ([facility]) <content>SPECIMEN DESCRIPTION CATHETER,INDWELLING</content>
<content>CULTURE [...]
<content>CEFTAROLINE 0.25 SUSCEPTIBLE</content> ID Date Data Source [id number] 06/03/2020 07:48:59 AM EST Laboratory [facility] [...] rce(s) Supporting Document(s) ID Date Data Source [id number] 05/30/2020 02:11:00 PM EST [facility] ([facility]) Name Value Range Interpretation Code Description Data Ema rce(s) Supporting Document(s) Glucose [Presence] in Urine Laboratory test result [facility] ([facility]) Ua Nitrite Laboratory test result [facility] ([facility]) Protein [Presence] in Urine by Test strip 100 mg/dL [facility] ([facility]) Blood [Presence] in Urine by Visual Laboratory test result [facility] ([facility]) Ua Leuko Laboratory test result [facility] ([facility]) Color of Urine Laboratory test result [facility] ([facility]) Clarity of Urine Laboratory test result [facility] ([facility]) Ketones [Presence] in Urine by Test strip Laboratory test result [facility] ([facility]) Bilirubin.total [Presence] in Urine by Test strip Laboratory test res ult [facility] ([facility]) Ua Specific [place] 1.020 1.003-1.030 [facility] NT ([facility]) pH of Urine by Test strip 6.0 5.0-7.5 [facility] ([facility]) Urobilinogen [Mass/volume] in Urine by Test strip 1.0 E.U./dL 0.0-1.0 [facility] ([facility]) ID Date Data Source [id number] 03/22/2020 11:21:00 AM EDT [facility] ([facility]) Name Value Range Interpretation Code Description Data Ema rce(s) Supporting Document(s) Glucose [Presence] in Urine Laboratory test result [facility] ([facility]) Protein [Presence] in Urine by Test strip Laboratory test result [facility] ([facility]) Ua Nitrite Laboratory test result [facility] ([facility]) Ua Leuko Laboratory test result [facility] ([facility]) Blood [Presence] in Urine by Visual Laboratory test result [facility] ([facility]) Color of Urine Laboratory test result [facility] ([facility]) Clarity of Urine Laboratory test result [facility] ([facility]) Ketones [Presence] in Urine by Test strip Laboratory test result [facility] ([facility]) Ua Specific [place] Laboratory test result 1.003-1.030 [facility] ([facility]) Bilirubin.total [Presence] in Urine by Test strip Laboratory test res ult [facility] ([facility]) pH of Urine by Test strip 5.5 5.0-7.5 [facility] ([facility]) Urobilinogen [Mass/volume] in Urine by Test strip 0.2 E.U./dL 0.0-1.0 [facility] ([facility]) ID Date Data Source [id number] 03/20/2020 03:15:00 PM EDT [facility] ([facility]) Name Value Range Interpretation Code Description Data Ema rce(s) Supporting Document(s) Bacteria identified in Urine by Culture Laboratory test result [facility] ([facility]) SPECIMEN DESCRIPTION URINE, COLLE CTION METHOD NOT SPECIFIED CULTURE RESULTS >100,000 CFU/ML AEROCOCCUS URINAE NOTE: THERE ARE NO CLSI APPROVED CRITERIA FOR TESTING THE SUSCEPTIBILITY OF THIS ORGANISM TO ANTIBIOTICS. CONSULTATION WITH AN INFECTIOUS DISEASE PHYSICIAN OR PHARMACIST MAY BE WARRANTED IF THIS ORGANISM IS CLINICALLY SIGNIFICANT. REPORT STATUS FINAL 03/22/2020 ID Date Data Source [id number] 03/22/2020 09:29:42 AM EDT Laboratory [facility] - CORE SPECIMEN DESCRIPTION URINE, COLLE CTION METHOD NOT SPECIFIEDCULTURE RESULTS >100,000 CFU/ML AEROCOCCUS URINAENOTE: THERE ARE NO CLSI APPROVED CRITERIA FOR TESTING THESUSCEPTIBILITY OF THIS ORGANISM TO ANTIBIOTICS. CONSULTATION WITH ANINFECTIOUS DISEASE PHYSICIAN OR PHARMACIST MAY BE WARRANTED IF THISORGANISM IS CLINICALLY SIGNIFICANT. REPORT STATUS FINAL 03/22/2020 Name Value Range Interpretation Code Description Data Ema rce(s) Supporting Document(s) ID Date Data Source [id number] 03/20/2020 02:44:00 PM EDT [facility] ([facility]) Name Value Range Interpretation Code Description Data Ema rce(s) Supporting Document(s) Glucose [Presence] in Urine 100 mg/dL [facility] ([facility]) Ua Leuko Laboratory test result [facility] ([facility]) Protein [Presence] in Urine by Test strip Laboratory test result [facility] ([facility]) Ua Nitrite Laboratory test result [facility] ([facility]) Color of Urine Laboratory test result [facility] ([facility]) Blood [Presence] in Urine by Visual Laboratory test result [facility] ([facility]) Ketones [Presence] in Urine by Test strip Laboratory test result [facility] ([facility]) Clarity of Urine Laboratory test result [facility] ([facility]) Ua Specific [place] 1.015 1.003-1.030 [facility] NT ([facility]) pH of Urine by Test strip 7.0 5.0-7.5 [facility] ([facility]) Bilirubin.total [Presence] in Urine by Test strip Laboratory test res ult [facility] ([facility]) Urobilinogen [Mass/volume] in Urine by Test strip 1.0 E.U./dL 0.0-1.0 [facility] ([facility]) ID Date Data Source [id number] 03/16/2020 02:59:00 PM EDT [facility] ([facility]) Name Value Range Interpretation Code Description Data Ema rce(s) Supporting Document(s) Bacteria identified in Urine by Culture Laboratory test result [facility] ([facility]) <content>SPECIMEN DESCRIPTION URI NE, COLLECTION METHOD NOT SPECIFIED</content>
<content>CULTURE RESULTS <10,000 CFU/ML REPRESENTING URETHRAL DEIRDRE</content>
<content>REPORT STATUS FINAL 03/18/2020</content> ID Date Data Source [id number] 03/18/2020 07:58:46 AM EDT [facility] - CORE SPECIMEN DESCRIPTION URINE, COLLE CTION METHOD NOT SPECIFIEDCULTURE RESULTS <10,000 CFU/ML REPRESENTING URETHRAL [place] STATUS FINAL 03/18/2020 Name Value Range Interpretation Code Description Data Ema rce(s) Supporting Document(s) ID Date Data Source [id number] 03/16/2020 02:50:00 PM EDT [facility] ([facility]) Name Value Range Interpretation Code Description Data Ema rce(s) Supporting Document(s) Glucose [Presence] in Urine Laboratory test result [facility] ([facility]) Protein [Presence] in Urine by Test strip Laboratory test result [facility] ([facility]) Ua Nitrite Laboratory test result [facility] ([facility]) Ua Leuko Laboratory test result [facility] ([facility]) Ketones [Presence] in Urine by Test strip Laboratory test result [facility] ([facility]) Blood [Presence] in Urine by Visual Laboratory test result [facility] ([facility]) Color of Urine Laboratory test result [facility] ([facility]) Clarity of Urine Laboratory test result [facility] ([facility]) Ua Specific [place] 1.015 1.003-1.030 [facility] ([facility]) Bilirubin.total [Presence] in Urine by Test strip Laboratory test res ult [facility] ([facility]) pH of Urine by Test strip 7.0 5.0-7.5 [facility] ([facility]) Urobilinogen [Mass/volume] in Urine by Test strip 0.2 E.U./dL 0.0-1.0 [facility] ([facility]) ID Date Data Source [id number] 03/14/2020 10:54:17 AM EDT [facility] INFORMATIONPatient MRN Name Date of Age Gend*PT [id number] Sarina Linares 1940 79 years M SDCPT Location Admission Date/Time Visit ID Attending ProviderASNE AMBULATO* 03/02/20 0825 --- --- EPI ID CSN Admitting Provider [id number] Mar Castaneda MD([id number]) [place] [address] OPERATIVE REPORT OPNAME: MILAGROS SARINA Velasco#: [id number] #: KAILEYL ADMISSION DATE: 03/02/2020DOB: 1940 SEX: M PT TYPE: H SURENRICOT #: [id number] CARE PHYSICIAN:REFERRING PHYSICIAN: MAR AILCEAATE OF OPERATION: 03/02/2020PREOPERATIVE DIAGNOSIS:Overactive bladder.POSTOPERATIVE DIAGNOSES:1. Overactive [...] furthertherapy, risk of general anesthesia, PE, CVA, SD, systemic effect of them edication and paralysis of the bladder. All questions were answered.Informed consent was obtained.DESCRIPTION OF PROCEDURE:The patient was prepped and draped in normal sterile fashion with the areaof interest being the genitalia exposed in the dorsal lithotomy positionafter induction of adequate MAC anesthetic. The patient did receivepreoperative IV antibiotics as well as pneumatic compression stockingsprior to induction of anesthesia.A 19-Icelandic rigid cystoscope was advanced through the urethra [...] He already has antibiotics at home.Recommendation for [id number] pain medications for any discomfort.He should remain well hydrated.RECOMMENDATIONS:No heavy lifting, straining, exercise. No driving on pain medication. Hewill follow up in the office in 2 weeks as scheduled. Findings werereviewed with the patient's over the phone postoperatively.TIMOTEO DAVIDSON/ARCADIO Job #: [id number] DOC #: [id number] Name Value Range Interpretation Code Description Data [facility] rce(s) Supporting Document(s) ID Date Data Source [id number] 03/02/2020 11:53:00 AM EDT [facility] ([facility]) Name Value Range Interpretation Code Description Data [facility] Document([facility]) Composition in Stone Laboratory test result [facility] ([facility]) Calculi composed primarily of: 50% magnesium ammonium [...] composition determined by FTIR analysis. Performed By: [facility] [address] [place] [id number] Office Clin Asst: Flor Rosales MD Weight of Unspecified specimen 76 mg [facility] ([facility]) Number of Stones 2 [facility] ([facility]) Size [Entitic volume] of Stone Laboratory test result [facility] ([facility]) Unit: mm Appearance of Stone Laboratory test result [facility] ([facility]) Specimen consists of two, various sized (1 mm to 9 mm), montero, irregular calculi fragments. ID Date Data Source [id number] 03/07/2020 07:23:28 PM EDT [facility] [place] [facility] [place] Name Value Range Interpretation Code Description Data Ema rce(s) Supporting Document(s) COMPOSITION [facility] [place] [facility] See Note Calculi composed primarily of: 50% [...] composition determined by FTIR analysis. Performed By: [facility] [address] [place] [address] Office Clin Asst: Flor Rosales MD MASS 76 mg [facility] [place] [facility] CALCULI NUMBER 2 [facility] CALCULI SIZE [facility] [place] [facility] VariousUnit: mm CALCULI DESCRIPTION Lab [facility] See Note Specimen consists of two, vario us sized (1 mm to 9 mm), montero, irregular calculi fragments. ID Date Data Source [id number] 03/02/2020 10:50:03 AM EDT [facility] INFORMATIONPatient MRN Name Date of Age Gend*PT [id number] Sarina Linares 1940 79 years M SDCPT Location Admission Date/Time Visit ID Attending ProviderASNE AMBULATO* 03/02/20 0825 --- Mar Castaneda MD([id number]) EPI ID CSN Admitting Provider [id number] Mar Castaneda MD([id number])H&P reviewed. The patient was examined and there are no changes to the H&P.The H&P that is being updated is available for review and was brought in Nba Castaneda MD10:50 AM Name Value Range Interpretation Code Description Data Ema rce(s) Supporting Document(s) Procedure Social History Code Duration Value Status Description Data Source(s ) Alcohol intake 04/23/2021 12:00:00 AM EST Current drinker of al cohol (finding) completed Current drinker of alcohol (finding) [facility] Alcohol intake 04/19/2021 12:00:00 AM EST Current drinker of al cohol (finding) completed Current drinker of alcohol (finding) [facility] Alcohol intake 04/18/2021 12:00:00 AM EST Current drinker of al cohol (finding) completed Current drinker of alcohol (finding) [facility] Smoking 04/02/2021 12:00:00 AM EDT Never Smoker completed Never S moker eCW1 ([facility]) Smoking 03/20/2021 12:00:00 AM EDT Never Smoked Cigarettes com pleted Never Smoked Cigarettes [facility] ([facility]) Smoking 03/05/2021 12:00:00 AM EDT Never Smoker completed Never S moker eCW1 ([facility]) Smoking 03/05/2021 12:00:00 AM EDT Never Smoker completed Never S moker eCW1 ([facility]) Smoking 03/05/2021 12:00:00 AM EDT Never Smoker completed Never S moker eCW1 ([facility]) Smoking 03/05/2021 12:00:00 AM EDT Never Smoker completed Never S moker eCW1 ([facility]) Smoking 03/05/2021 12:00:00 AM EDT Never Smoker completed Never S moker eCW1 ([facility]) Tobacco use and exposure 02/28/2021 12:00:00 AM EDT Smokeless to bacco non-user completed Smokeless tobacco non-user [facility] Smoking 02/28/2021 12:00:00 AM EDT Never smoked tobacco comple biju Never smoked tobacco [facility] Smoking 02/20/2021 12:00:00 AM EDT Never Smoker completed Never S moker eCW1 ([facility]) Smoking 01/31/2021 12:58:00 AM EDT Denies Ever Smoked complete d Denies Ever Smoked [facility] Smoking 01/01/2021 12:00:00 AM EDT Never Smoker completed Never S moker eCW1 ([facility]) Smoking 01/01/2021 12:00:00 AM EDT Never Smoker completed Never S moker eCW1 ([facility]) Smoking 01/01/2021 12:00:00 AM EDT Never Smoker completed Never S moker eCW1 ([facility]) Smoking 01/01/2021 12:00:00 AM EDT Never Smoker completed Never S moker eCW1 ([facility]) Smoking 01/01/2021 12:00:00 AM EDT Never Smoker completed Never S moker eCW1 ([facility]) Smoking 01/01/2021 12:00:00 AM EDT Never Smoker completed Never S moker eCW1 ([facility]) Smoking 01/01/2021 12:00:00 AM EDT Never Smoker completed Never S moker eCW1 ([facility]) Smoking 01/01/2021 12:00:00 AM EDT Never Smoker completed Never S moker eCW1 ([facility]) Smoking 11/28/2020 12:00:00 AM EDT Never Smoker completed Never S moker eCW1 ([facility]) Smoking 11/28/2020 12:00:00 AM EDT Never Smoker completed Never S moker eCW1 ([facility]) Smoking 11/28/2020 12:00:00 AM EDT Never Smoker completed Never S moker eCW1 ([facility]) Smoking 11/28/2020 12:00:00 AM EDT Never Smoker completed Never S moker eCW1 ([facility]) Smoking 11/21/2020 04:02:00 PM EDT Denies Ever Smoked complete d Denies Ever Smoked [facility] Smoking 11/11/2020 12:00:00 AM EDT Never Smoker completed Never S moker eCW1 ([facility]) Smoking 11/11/2020 12:00:00 AM EDT Never Smoker completed Never S moker eCW1 ([facility]) Smoking 11/07/2020 12:00:00 AM EDT Never Smoker completed Never S moker eCW1 ([facility]) Smoking 05/11/2020 12:00:00 AM EST Never Smoker completed Never S moker eCW1 ([facility]) Smoking 05/11/2020 12:00:00 AM EST Never Smoker completed Never S moker eCW1 ([facility]) Smoking 05/11/2020 12:00:00 AM EST Never Smoker completed Never S moker eCW1 ([facility]) Smoking 05/11/2020 12:00:00 AM EST Never Smoker completed Never S moker eCW1 ([facility]) Vital Signs ID Date Data Source UNK Name Value Range Interpretation Code Description Data Source(s) Diastolic blood pressure 56 mm[Hg] 56 mm[Hg] eCW1 ([facility]) Body weight 175.0 [lb_av] 175.0 [lb_av] eCW1 ([facility]) Body height 71 [in_i] 71 [in_i] eCW1 ([facility]) Body mass index (BMI) [Ratio] 24.40 kg/m2 24.40 kg/m2 eCW1 ([facility]) Heart rate 99 /min 99 /min eCW1 ([facility]) Respiratory rate 18 /min 18 /min eCW1 ([facility]) Body temperature 97.1 [degF] 97.1 [degF] eCW1 ( [facility]) Systolic blood pressure 102 mm[Hg] 102 mm[Hg] e CW1 ([facility]) Body weight 79.380 kg 79.380 kg [facility] ([facility]) Body mass index (BMI) [Ratio] 24.4 kg/m2 24.4 k g/m2 [facility] ([facility]) Systolic blood pressure 125 mm[Hg] 125 mm[Hg] M EDENT ([facility]) Diastolic blood pressure 60 mm[Hg] 60 mm[Hg] [facility] ([facility]) Heart rate 97 /min 97 /min [facility] ([facility]) Body height 71 [in_i] 71 [in_i] [facility] ([facility]) 5'11" Body weight 175.00 [lb_av] 175.00 [lb_av] MEDEN T ([facility]) Body mass index (BMI) [Ratio] 27.48 kg/m2 No rmal (applies to non-numeric results) 27.48 kg/m2 [facility] Body height 179.2224 cm Normal (applies to non-numeric res ults) 179.2224 cm [facility] Body weight Measured 89.358 kg Normal (applies to n on-numeric results) 89.358 kg [facility] Diastolic blood pressure 54 mm[Hg] Normal (applies to non-numeric results) 54 mm[Hg] [facility] Body temperature 36.5 ifeanyi Normal (applies to non-numeric results) 36.5 ifeanyi [facility] Systolic blood pressure 117 mm[Hg] Normal (applies t o non-numeric results) 117 mm[Hg] [facility] Deprecated Oxygen saturation in Capillary blood by Oximetry 96 % Normal (applies to non-numeric results) 96 % [facility] Heart rate 83 min Normal (applies to non-numeric resul ts) 83 min [facility] Respiratory rate 18 min Normal (applies to non-numeric results) 18 min [facility] Body temperature 97.8 [degF] 97.8 [degF] eCW1 ( [facility]) Body weight 199.4 [lb_av] 199.4 [lb_av] eCW1 ([facility]) Body height 71 [in_i] 71 [in_i] eCW1 ([facility]) Body mass index (BMI) [Ratio] 27.81 kg/m2 27.81 kg/m2 W1 ([facility]) Heart rate 105 /min 105 /min eCW1 ([facility]) Respiratory rate 18 /min 18 /min eCW1 ([facility]) Systolic blood pressure 124 mm[Hg] 124 mm[Hg] e CW1 ([facility]) Diastolic blood pressure 58 mm[Hg] 58 mm[Hg] eCW1 ([facility]) Oxygen saturation in Arterial blood by Pulse oximetry 95 % 95 % [facility] ([facility]) Respiratory rate 18 /min 18 /min [facility] ( [facility]) Body height 71 [in_i] 71 [in_i] [facility] ([facility]) 5'11" Body weight 198.00 [lb_av] 198.00 [lb_av] MEDEN T ([facility]) Body weight 89.813 kg 89.813 kg [facility] ([facility]) Body mass index (BMI) [Ratio] 27.6 kg/m2 27.6 k g/m2 [facility] ([facility]) Systolic blood pressure 142 mm[Hg] 142 mm[Hg] M EDENT ([facility]) Diastolic blood pressure 66 mm[Hg] 66 mm[Hg] [facility] ([facility]) Heart rate 105 /min 105 /min [facility] (Associ at[facility]illing [facility]) Body temperature 97.7 [degF] 97.7 [degF] [facility] ([facility]) Systolic blood pressure 136 mm[Hg] Normal (applies t o non-numeric results) 136 mm[Hg] [facility] Diastolic blood pressure 70 mm[Hg] Normal (applies to non-numeric results) 70 mm[Hg] [facility] Heart rate 90 min Normal (applies to non-numeric resul ts) 90 min [facility] Deprecated Oxygen saturation in Capillary blood by Oximetry 98 % Normal (applies to non-numeric results) 98 % [facility] Respiratory rate 16 min Normal (applies to non-numeric results) 16 min [facility] Systolic blood pressure 136 mm[Hg] 136 mm[Hg] M EDENT ([facility]) Diastolic blood pressure 70 mm[Hg] 70 mm[Hg] [facility] ([facility]) Heart rate 90 /min 90 /min MED[facility] (Associ at[facility]) Respiratory rate 16 /min 16 /min [facility] ( [facility]) Oxygen saturation in Arterial blood by Pulse oximetry 98 % 98 % [facility] ([facility]) Body mass index (BMI) [Ratio] 28.0 kg/m2 No rmal (applies to non-numeric results) 28.0 kg/m2 [facility] Body height 179.2224 cm Normal (applies to non-numeric res ults) 179.2224 cm [facility] Body temperature 36.4 ifeanyi Normal (applies to non-numeric results) 36.4 ifeanyi [facility] Body weight Measured 201 [lb_av] Normal (applies to n on-numeric results) 201 [lb_av] [facility] Body weight 210.00 [lb_av] 210.00 [lb_av] MEDEN T ([facility]) Body height 71 [in_i] 71 [in_i] [facility] ([facility]) 5'11" Body weight 95.256 kg 95.256 kg [facility] ([facility]) Body mass index (BMI) [Ratio] 29.3 kg/m2 29.3 k g/m2 [facility] ([facility]) Systolic blood pressure 128 mm[Hg] 128 mm[Hg] M EDENT ([facility]) Diastolic blood pressure 70 mm[Hg] 70 mm[Hg] [facility] ([facility]) Heart rate 109 /min 109 /min [facility] ([facility]) Body weight 223.2 [lb_av] 223.2 [lb_av] eCW1 ([facility]) Body height 71 [in_i] 71 [in_i] eCW1 ([facility]) Body mass index (BMI) [Ratio] 31.13 kg/m2 31.13 kg/m2 eCW1 ([facility]) Heart rate 116 /min 116 /min eCW1 ([facility]) Respiratory rate 18 /min 18 /min eCW1 ([facility]) Body temperature 97.8 [degF] 97.8 [degF] eCW1 ( [facility]) Systolic blood pressure 104 mm[Hg] 104 mm[Hg] e CW1 ([facility]) Diastolic blood pressure 54 mm[Hg] 54 mm[Hg] eCW1 ([facility]) Body height 71 [in_i] 71 [in_i] [facility] ([facility]) 5'11" Heart rate 110 /min 110 /min [facility] ([facility]) Body weight 216.00 [lb_av] 216.00 [lb_av] MEDEN T ([facility]) Body weight 97.978 kg 97.978 kg [facility] ([facility]) Body mass index (BMI) [Ratio] 30.1 kg/m2 30.1 k g/m2 [facility] ([facility]) Systolic blood pressure 133 mm[Hg] 133 mm[Hg] M EDENT ([facility]) Diastolic blood pressure 64 mm[Hg] 64 mm[Hg] [facility] ([facility]) Body weight 216.0 [lb_av] 216.0 [lb_av] eCW1 ([facility]) Body height 71 [in_i] 71 [in_i] eCW1 ([facility]) Body mass index (BMI) [Ratio] 30.12 kg/m2 30.12 kg/m2 eCW1 ([facility]) Heart rate 97 /min 97 /min eCW1 ([facility]) Respiratory rate 18 /min 18 /min eCW1 ([facility]) Body temperature 97.4 [degF] 97.4 [degF] eCW1 ( [facility]) Systolic blood pressure 104 mm[Hg] 104 mm[Hg] e CW1 ([facility]) Diastolic blood pressure 52 mm[Hg] 52 mm[Hg] eCW1 ([facility]) Systolic blood pressure 160 mm[Hg] Normal (applies t o non-numeric results) 160 mm[Hg] [facility] Respiratory rate 18 min Normal (applies to non-numeric results) 18 min [facility] Body temperature 36.5 ifeanyi Normal (applies to non-numeric results) 36.5 ifeanyi [facility] Diastolic blood pressure 69 mm[Hg] Normal (applies to non-numeric results) 69 mm[Hg] [facility] Heart rate 83 min Normal (applies to non-numeric resul ts) 83 min [facility] Systolic blood pressure 160 mm[Hg] 160 mm[Hg] M EDENT ([facility]) Diastolic blood pressure 69 mm[Hg] 69 mm[Hg] [facility] ([facility]) Heart rate 83 /min 83 /min [facility] ([facility]) Respiratory rate 18 /min 18 /min [facility] ( [facility]) Body temperature 36.5 [degF] 36.5 [degF] [facility] ([facility]) Deprecated Oxygen saturation in Capillary blood by Oximetry 99 % Normal (applies to non-numeric results) 99 % [facility] Oxygen saturation in Arterial blood by Pulse oximetry 99 % 99 % [facility] ([facility]) Body height 179.2224 cm Normal (applies to non-numeric res ults) 179.2224 cm [facility] Body weight Measured 89.9 kg Normal (applies to non-num gayatri results) 89.9 kg [facility] Body mass index (BMI) [Ratio] 27.64 kg/m2 No rmal (applies to non-numeric results) 27.64 kg/m2 [facility] Body weight 209.2 [lb_av] 209.2 [lb_av] eCW1 ([facility]) Body height 71 [in_i] 71 [in_i] eCW1 ([facility]) Body mass index (BMI) [Ratio] 29.17 kg/m2 29.17 kg/m2 eCW1 ([facility]) Heart rate 94 /min 94 /min eCW1 ([facility]) Respiratory rate 18 /min 18 /min eCW1 ([facility]) Body temperature 97.7 [degF] 97.7 [degF] eCW1 ( [facility]) Systolic blood pressure 124 mm[Hg] 124 mm[Hg] e CW1 ([facility]) Diastolic blood pressure 64 mm[Hg] 64 mm[Hg] eCW1 ([facility]) Body weight 92.081 kg 92.081 kg [facility] ([facility]) Body mass index (BMI) [Ratio] 28.3 kg/m2 28.3 k g/m2 [facility] ([facility]) Systolic blood pressure 149 mm[Hg] 149 mm[Hg] M EDENT ([facility]) Diastolic blood pressure 75 mm[Hg] 75 mm[Hg] [facility] ([facility]) Heart rate 86 /min 86 /min [facility] ([facility]) Body height 71 [in_i] 71 [in_i] [facility] ([facility]) 5'11" Body weight 203.00 [lb_av] 203.00 [lb_av] MEDEN T ([facility]) Body weight 240.00 [lb_av] 240.00 [lb_av] MEDEN T ([facility]) Body height 71 [in_i] 71 [in_i] [facility] ([facility]) 5'11" Body weight 108.864 kg 108.864 kg [facility] (Assoc [facility]ated [facility]illing [facility]) Body mass index (BMI) [Ratio] 33.5 kg/m2 33.5 k g/m2 [facility] ([facility]) Body temperature 97.6 [degF] 97.6 [degF] [facility] ([facility]) Body weight 211 [lb_av] 211 [lb_av] eCW1 ([facility]) Body height 71 [in_i] 71 [in_i] eCW1 ([facility]) Body mass index (BMI) [Ratio] 29.43 kg/m2 29.43 kg/m2 eCW1 ([facility]) Systolic blood pressure 146 mm[Hg] 146 mm[Hg] e CW1 ([facility]) Diastolic blood pressure 82 mm[Hg] 82 mm[Hg] eCW1 ([facility]) Body weight 211 [lb_av] 211 [lb_av] eCW1 ([facility]) Body height 71 [in_i] 71 [in_i] eCW1 ([facility]) Respiratory rate 18 /min 18 /min eCW1 ([facility]) Heart rate 92 /min 92 /min eCW1 ([facility]) Body temperature 97.3 [degF] 97.3 [degF] eCW1 ( [facility]) Diastolic blood pressure 78 mm[Hg] 78 mm[Hg] eCW1 ([facility]) Systolic blood pressure 142 mm[Hg] 142 mm[Hg] e CW1 ([facility]) Body mass index (BMI) [Ratio] 29.43 kg/m2 29.43 kg/m2 eCW1 ([facility]) Body height 71 [in_i] 71 [in_i] [facility] ([facility]oc [facility]ated [facility]) 5'11" Body weight 240.00 [lb_av] 240.00 [lb_av] MEDEN T ([facility]) Body weight 108.864 kg 108.864 kg [facility] ([facility]) Body mass index (BMI) [Ratio] 33.5 kg/m2 33.5 k g/m2 [facility] ([facility]) Systolic blood pressure 155 mm[Hg] 155 mm[Hg] M EDENT ([facility]) Diastolic blood pressure 67 mm[Hg] 67 mm[Hg] [facility] ([facility]) Heart rate 101 /min 101 /min [facility] ([facility]) Heart rate 90 /min 90 /min [facility] ([facility]) Body height 71 [in_i] 71 [in_i] [facility] ([facility]) 5'11" Body weight 240.00 [lb_av] 240.00 [lb_av] MEDEN T ([facility]) Body weight 108.864 kg 108.864 kg [facility] ([facility]) Body mass index (BMI) [Ratio] 33.5 kg/m2 33.5 k g/m2 [facility] ([facility]) Systolic blood pressure 159 mm[Hg] 159 mm[Hg] M EDENT ([facility]) Diastolic blood pressure 70 mm[Hg] 70 mm[Hg] [facility] ([facility]) ID Date Data Source [id number] 04/24/2021 05:31:[address] [facility] Name Value Range Interpretation Code Description Data Source(s) WEIGHT RECORDED 170 lb 170 lb [facility] Body height Measured 71 in 71 in [facility] ID Date Data Source [id number] 04/15/2021 08:59:[address] [facility] Name Value Range Interpretation Code Description Data Source(s) WEIGHT RECORDED 175 lb 175 lb [facility] Body height Measured 71 in 71 in [facility] Patient Treatment Plan of Care Planned Activity Planned Date Details Description Data Source (s) Sucralfate 1000 MG Oral Tablet 04/24/2021 12:00:00 AM [facility] Nadolol 20 MG Oral Tablet 04/24/2021 12:00:00 AM [facility] dextrose 50 % IV solution 25 mL 04/23/2021 04:52:45 PM [facility] Glucagon 1 MG Injection 04/23/2021 04:52:45 PM [facility] Glucose 0.417 MG/MG Oral Gel 04/23/2021 04:52:45 PM [facility] dextrose 50 % IV solution 25 mL 04/23/2021 12:31:03 PM [facility] Glucagon 1 MG Injection 04/23/2021 12:31:03 PM [facility] montelukast 10 MG Oral Tablet 04/12/2021 12:00:00 AM [facility] Abdominal Binder/Elastic 3XL - 03/05/2021 12:00:00 AM EDT eCW1 ([facility]) Abdominal Binder/Elastic 3XL - 03/05/2021 12:00:00 AM EDT eCW1 ([facility]) Abdominal Binder/Elastic 3XL - 03/05/2021 12:00:00 AM EDT eCW1 ([facility]) Abdominal Binder/Elastic 3XL - 03/05/2021 12:00:00 AM EDT eCW1 ([facility]) Abdominal Binder/Elastic 3XL - 03/05/2021 12:00:00 AM EDT eCW1 ([facility]) HydrOXYzine HCl 10 MG 01/08/2021 01:00:00 AM EDT [facility] ([facility]) Hydroxyzine Hydrochloride 10 MG Oral Tablet 01/08/2021 12:00:00 AM EDT eCW1 ([facility]) Hydroxyzine Hydrochloride 10 MG Oral Tablet 01/08/2021 12:00:00 AM EDT eCW1 ([facility]) Hydroxyzine Hydrochloride 10 MG Oral Tablet 01/08/2021 12:00:00 AM EDT eCW1 ([facility]) Hydroxyzine Hydrochloride 10 MG Oral Tablet 01/08/2021 12:00:00 AM EDT eCW1 ([facility]) Hydroxyzine Hydrochloride 10 MG Oral Tablet 01/08/2021 12:00:00 AM EDT eCW1 ([facility]) Hydroxyzine Hydrochloride 10 MG Oral Tablet 01/08/2021 12:00:00 AM EDT eCW1 ([facility]) Hydroxyzine Hydrochloride 10 MG Oral Tablet 01/08/2021 12:00:00 AM EDT eCW1 ([facility]) Hydroxyzine Hydrochloride 10 MG Oral Tablet 01/08/2021 12:00:00 AM EDT eCW1 ([facility]) Hydroxyzine Hydrochloride 10 MG Oral Tablet 01/08/2021 12:00:00 AM EDT eCW1 ([facility]) Hydroxyzine Hydrochloride 10 MG Oral Tablet 01/08/2021 12:00:00 AM EDT eCW1 ([facility]) Hydroxyzine Hydrochloride 10 MG Oral Tablet 01/08/2021 12:00:00 AM EDT eCW1 ([facility]) Hydroxyzine Hydrochloride 10 MG Oral Tablet 01/08/2021 12:00:00 AM EDT eCW1 ([facility]) Hydroxyzine Hydrochloride 10 MG Oral Tablet 01/08/2021 12:00:00 AM EDT eCW1 ([facility]) Hydroxyzine Hydrochloride 10 MG Oral Tablet 01/08/2021 12:00:00 AM EDT eCW1 ([facility]) Losartan Potassium 100 MG 01/07/2021 01:00:00 AM EDT [facility] ([facility]) Spironolactone 25 MG 01/07/2021 01:00:00 AM EDT [facility] ([facility]) Losartan Potassium 50 MG Oral Tablet 01/01/2021 12:00:00 AM EDT eCW1 ([facility]) Spironolactone 25 MG Oral Tablet 01/01/2021 12:00:00 AM EDT eCW1 ([facility]) Spironolactone 25 MG Oral Tablet 01/01/2021 12:00:00 AM EDT eCW1 ([facility]) Spironolactone 25 MG Oral Tablet 01/01/2021 12:00:00 AM EDT eCW1 ([facility]) Spironolactone 25 MG Oral Tablet 01/01/2021 12:00:00 AM EDT eCW1 ([facility]) Losartan Potassium 100 MG Oral Tablet 01/01/2021 12:00:00 AM EDT eCW1 ([facility]) Spironolactone 25 MG Oral Tablet 01/01/2021 12:00:00 AM EDT eCW1 ([facility]) Losartan Potassium 100 MG Oral Tablet 01/01/2021 12:00:00 AM EDT eCW1 ([facility]) Spironolactone 25 MG Oral Tablet 01/01/2021 12:00:00 AM EDT eCW1 ([facility]) Losartan Potassium 100 MG Oral Tablet 01/01/2021 12:00:00 AM EDT eCW1 ([facility]) Spironolactone 25 MG Oral Tablet 01/01/2021 12:00:00 AM EDT eCW1 ([facility]) Spironolactone 25 MG Oral Tablet 01/01/2021 12:00:00 AM EDT eCW1 ([facility]) Losartan Potassium 100 MG Oral Tablet 01/01/2021 12:00:00 AM EDT eCW1 ([facility]) Spironolactone 25 MG Oral Tablet 01/01/2021 12:00:00 AM EDT eCW1 ([facility]) Losartan Potassium 100 MG Oral Tablet 01/01/2021 12:00:00 AM EDT eCW1 ([facility]) Spironolactone 25 MG Oral Tablet 01/01/2021 12:00:00 AM EDT eCW1 ([facility]) Losartan Potassium 100 MG Oral Tablet 01/01/2021 12:00:00 AM EDT eCW1 ([facility]) Spironolactone 25 MG Oral Tablet 01/01/2021 12:00:00 AM EDT eCW1 ([facility]) Losartan Potassium 100 MG Oral Tablet 01/01/2021 12:00:00 AM EDT eCW1 ([facility]) Spironolactone 25 MG Oral Tablet 01/01/2021 12:00:00 AM EDT eCW1 ([facility]) Losartan Potassium 100 MG Oral Tablet 01/01/2021 12:00:00 AM EDT eCW1 ([facility]) Spironolactone 25 MG Oral Tablet 01/01/2021 12:00:00 AM EDT eCW1 ([facility]) Spironolactone 25 MG Oral Tablet 01/01/2021 12:00:00 AM EDT eCW1 ([facility]) Losartan Potassium 100 MG Oral Tablet 01/01/2021 12:00:00 AM EDT eCW1 ([facility]) Potassium Chloride 12/31/2020 01:00:00 AM EDT [facility] Colace 100 MG 12/31/2020 01:00:00 AM EDT [facility] Lasix 20 MG 12/24/2020 01:00:00 AM EDT N [facility] ([facility]) Furosemide 20 MG Oral Tablet [Lasix] 12/24/2020 12:00:00 AM EDT eCW1 ([facility]) Potassium Chloride CR 15 MEQ 12/24/2020 12:00:00 AM EDT eCW1 ([facility]) Furosemide 40 MG Oral Tablet [Lasix] 12/24/2020 12:00:00 AM EDT eCW1 ([facility]) Furosemide 40 MG Oral Tablet [Lasix] 12/24/2020 12:00:00 AM EDT eCW1 ([facility]) Furosemide 40 MG Oral Tablet [Lasix] 12/24/2020 12:00:00 AM EDT eCW1 ([facility]) Furosemide 40 MG Oral Tablet [Lasix] 12/24/2020 12:00:00 AM EDT eCW1 ([facility]) Furosemide 40 MG Oral Tablet [Lasix] 12/24/2020 12:00:00 AM EDT eCW1 ([facility]) Furosemide 20 MG Oral Tablet [Lasix] 12/24/2020 12:00:00 AM EDT eCW1 ([facility]) Furosemide 20 MG Oral Tablet [Lasix] 12/24/2020 12:00:00 AM EDT eCW1 ([facility]) Furosemide 20 MG Oral Tablet [Lasix] 12/24/2020 12:00:00 AM EDT eCW1 ([facility]) Furosemide 20 MG Oral Tablet [Lasix] 12/24/2020 12:00:00 AM EDT eCW1 ([facility]) Furosemide 40 MG Oral Tablet [Lasix] 12/24/2020 12:00:00 AM EDT eCW1 ([facility]) Furosemide 20 MG Oral Tablet [Lasix] 12/24/2020 12:00:00 AM EDT eCW1 ([facility]) Furosemide 20 MG Oral Tablet [Lasix] 12/24/2020 12:00:00 AM EDT eCW1 ([facility]) Furosemide 20 MG Oral Tablet [Lasix] 12/24/2020 12:00:00 AM EDT eCW1 ([facility]) Furosemide 20 MG Oral Tablet [Lasix] 12/24/2020 12:00:00 AM EDT eCW1 ([facility]) Furosemide 20 MG Oral Tablet [Lasix] 12/24/2020 12:00:00 AM EDT eCW1 ([facility]) Furosemide 20 MG Oral Tablet [Lasix] 12/24/2020 12:00:00 AM EDT eCW1 ([facility]) Potassium Chloride CR 15 MEQ 12/24/2020 12:00:00 AM EDT eCW1 ([facility]) Ferrous Sulfate 325 (65 Fe) MG 11/30/2020 01:00:00 AM [facility] Melatonin 10 MG 11/30/2020 01:00:00 AM EDT [facility]) MetFORMIN HCl ER (MOD) 500 MG 11/30/2020 01:00:00 AM EDT [facility] ([facility]) Lidocaine Pain Relieving 4 % 11/30/2020 01:00:00 AM EDT [facility] Losartan Potassium-HCTZ 100-12.5 MG 11/24/2020 01:00:00 AM EDT [facility] ([facility]) MetFORMIN HCl 500 MG 11/24/2020 01:00:00 AM EDT [facility] ([facility]) Colace 100 MG 11/24/2020 01:00:00 AM EDT [facility] ([facility]) Ferrous Sulfate 324 MG 11/24/2020 01:00:00 AM EDT [facility] ([facility]) Ciprofloxacin HCl 750 MG 11/24/2020 01:00:00 AM EDT [facility] ([facility]) Lancets 28 G 11/24/2020 01:00:00 AM EDT [facility] ([facility]) FreeStyle Bison Lite w/Device 11/24/2020 01:00:00 AM EDT [facility] ([facility]) Tylenol Extra Strength 500 MG 11/24/2020 01:00:00 AM EDT [facility] ([facility]) Tylenol PM 11/24/2020 01:00:00 AM EDT [facility] ([facility])
[2021-04-28 11:48] LABS: RSV AMPLIFICATION NEGATIVE (NEGATIVE)
[2021-04-28 11:59] LABS: CALCIUM LEVEL 9.9 MG/DL (8.8-10.2); CREATININE FOR GFR 1.6 MG/DL (0.70-1.30); GLOMERULAR FILTRATION RATE 44.6 (>42); POTASSIUM SERUM 5.6 MEQ/L (3.5-5.1)
[2021-04-28 12:00] LABS: ALBUMIN 2.1 GM/DL (3.2-5.2); BILIRUBIN,DIRECT 0.3 MG/DL (0.0-0.2); BILIRUBIN,TOTAL 0.8 MG/DL (0.2-1.0); THYROID STIMULATING HORMONE 2.45 uIU/ML (0.358-3.740); TOTAL PROTEIN 7.2 GM/DL (6.4-8.2)
[2021-04-28] MEDS ORDERED: ISOVUE-370 76% 100ML VIAL As Ordered ONE (12:04)
[2021-04-28] MEDS ORDERED: LR 1,000 ML IV ONE (12:05)
[2021-04-28] MEDS ORDERED: PIPERACILLIN/TAZOBACTAM SOD 3.375 GM in D5W MINI-BAG PLUS 50 ML IV ONE (12:05)
[2021-04-28] MEDS ORDERED: NS 1,000 ML IV ONE (12:10)
--- NOTE | 2021-04-28 12:29 | REP ---
INDICATION: Altered Mental Status COMPARISON: None. TECHNIQUE: Axial noncontrast images from the skull base to the thoracic inlet with coronal reformations. This CT examination was performed using the following dose reduction techniques: Automated exposure control, adjustment of mA and/or kv according to the patient's size, and use of iterative reconstruction technique. FINDINGS: Atrophy with periventricular leukomalacia and microvascular ischemic changes are appreciated. The ventricles and sulci are symmetric. Perez-white differentiation is maintained. There is no evidence for acute intracranial hemorrhage, mass/mass effect, pathology or infarction. No extra-axial fluid collection. Calvarium is intact. Paranasal sinuses and mastoid air cells are clear. IMPRESSION: Atrophy and microvascular ischemic changes. No acute intracranial hemorrhage, infarction, or mass/mass effect. <Electronically signed by Nabil Mccauley > 04/28/21 [id number]
--- NOTE | 2021-04-28 12:46 | REP ---
INDICATION: AMS, hx liver cancer s/p ileostomy, abd distension. COMPARISON: 02/15/2021 TECHNIQUE: Axial contrast-enhanced images from the lung bases to the pubic symphysis using 100 cc Isovue 370 intravenous contrast material. Coronal and sagittal reformations obtained. This CT examination was performed using the following dose reduction techniques: Automated exposure control, adjustment of mA and/or kv according to the patient's size, and the use of iterative reconstruction technique. FINDINGS: The liver demonstrates nodular contour with significantly diffuse heterogeneity to the parenchyma and mild contracted appearance along with splenomegaly, significant ascites, and varices all consistent with cirrhosis and portal hypertension. Pancreas and bilateral adrenal glands are grossly normal. Gallbladder demonstrates small amount of contrast suggesting vicarious excretion. The kidneys demonstrate cortical scarring and mild atrophy (right greater than left) without hydronephrosis or perinephric stranding. 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 The enteric system demonstrates diffuse nonspecific bowel wall thickening which may be secondary to cirrhosis and bathing ascites although enteritis cannot be excluded. There is no evidence for bowel obstruction or free air to suggest bowel perforation. Scattered sigmoid diverticula noted. Pelvis once again demonstrates changes related to prior prostatectomy and bladder resection. Scattered nonspecific abdominal and retroperitoneal lymph nodes are noted. Lung bases demonstrate chronic appearing changes. IMPRESSION: 1. Cirrhosis and evidence for portal hypertension including a significant amount of ascites throughout the abdomen and pelvis. 2. Generalized predominately small bowel wall thickening likely secondary to cirrhosis and ascites although enteritis cannot definitively be excluded. 3. Further nonacute findings as noted above. <Electronically signed by Nabil Mccauley > 04/28/21 [id number]
[2021-04-28] MEDS ORDERED: MOM 30ML SUSPENSION UDC PO PRN (14:55)
[2021-04-28] MEDS ORDERED: ACETAMINOPHEN TAB 650MG DOSE (2X325MG) PO PRN (14:55)
[2021-04-28] MEDS ORDERED: MAALOX 30 ML SUSP *UDC PO PRN (14:55)
--- OUTSIDE RECORDS SUMMARY | 2021-04-28 15:18 | CCD ---
Author Author [facility] Organization [facility] Address Unknown Phone Unavailable Care Team Providers Care Gauge And Instrument Inspector Name Role Phone Bhutta, Damion Unavailable Bhutta, [...] Unavailable RITTERLORENA MAHMOOD MD Unavailable Unavailable RITTERLORENA MD Unavailable Unavailable RITTERLORENA MAHMOOD MD Unavailable Unavailable RITTERLORENA MAHMOOD MD Unavailable Unavailable RITTERLORENA MAHMOOD MD Unavailable Unavailable RITTERLOREAN MAHMOOD MD Unavailable Unavailable RITTERLORENA MAHMOOD MD [...] Unavailable LORENA RITTER MD Unavailable Unavailable Bessie VARGASLLIAN Unavailable Unavailable ANDREINA, M DENVER PA Unavailable Unavailable ANDREINA, M DENVER PA Unavailable Unavailable ANDREINA, M DENVER PA Unavailable Unavailable ANDREINA, M DENVER PA Unavailable Unavailable ANDREINA, M DENVER PA Unavailable Unavailable ANDREINA, M DENVER PA Unavailable Unavailable ANDREINA, M DENVER PA Unavailable Unavailable ANDRENIA, M DENVER PA Unavailable Unavailable ANDREINA, M [...] Unavailable Unavailable OUMOU KNOWLES MD Unavailable Unavailable GAMBOUMOU LAGOS MD Unavailable Unavailable GAMBOUMOU LAGOS MD Unavailable Unavailable GAMBOUMOU LAGOS MD Unavailable Unavailable OUMOU KNOWLES MD Unavailable Unavailable OUMOU KNOWLES MD Unavailable Unavailable OUMOU KNOWLES MD Unavailable Unavailable OUMOU KNOWLES MD Unavailable Unavailable OUMOU KNOWLES MD Unavailable Unavailable SYLVAI, KADE Unavailable Unavailable Eulalia Muñiz MD Unavailable [...] Unavailable Unavailable Pete, Jermaine DO Unavailable Unavailable Jermaine Freeman DO Unavailable Unavailable GARETH MONTANA MD Unavailable Unavailable GARETH MONTANA MD Unavailable Unavailable GARETH MONTANA MD Unavailable Unavailable GARETH MONTANA MD Unavailable Unavailable SLYGARETH GUERRIER MD Unavailable Unavailable SLYGARETH GUERRIER MD Unavailable Unavailable SLYGARETH GUERRIER MD Unavailable Unavailable Saxena, S Kalia RPA [...] S Kalia RPA Unavailable Unavailable Saxena, S Klaia RPA Unavailable Unavailable Saxena, S Kalia RPA [...] Unavailable Amee CASTANEDA MD Unavailable Unavailable Amee CASTANDEA MD Unavailable Unavailable Amee CASTANEDA MD Unavailable [...] Unavailable Amee PEREZ MD Unavailable Unavailable Amee PREEZ MD Unavailable Unavailable Amee PEREZ MD Unavailable [...] Unavailable Kitchen, N Po MD Unavailable Unavailable Kicthen, N Po MD Unavailable Unavailable Kitchen, N [...] Unavailable Unavailable Sai YANEZ MD Unavailable Unavailable aSi YANEZ MD Unavailable Unavailable Sai YANEZ MD [...] Unavailable Unavailable Bessie CARLIN MD Unavailable Unavailable HARTJeannieHEIM, Bessie JULIAN MD Unavailable Unavailable HARTZHEIM, Bessie [...] Unavailable HARTZFORTINO, Bessie JULIAN MD Unavailable Unavailable HARTZBessie FREITAS MD Unavailable Unavailable HARTBessie NORIEGA MD Unavailable Unavailable HARTZHEIMBessie MD Unavailable Unavailable HARTJeannieHEIMBessie MD Unavailable Unavailable HARTZHEIM, Bessie JULIAN MD Unavailable Unavailable HARTZHEIMBessie MD Unavailable Unavailable HARTJeannieHEIMBessie MD Unavailable Unavailable HARTZHEIMBessie MD Unavailable Unavailable HARTZBessie FREITAS MD Unavailable Unavailable HARTJeannieHEIMBessie MD Unavailable Unavailable Bessie CARLIN MD Unavailable Unavailable LASHAHEIMBessie MD Unavailable Unavailable LASHAHEIM, Bessie JULIAN MD Unavailable Unavailable Bessie CARLIN MD Unavailable Unavailable Bessie CARLIN MD Unavailable Unavailable Bessie CARLIN MD Unavailable Unavailable DAMION CASH Unavailable Unavailable ELIZABETH WATERS MD Unavailable Unavailable ELIZABEHT WATERS MD Unavailable Unavailable ELIZABETH WATERS MD Unavailable Unavailable ALEKSIC, ILIJA MD Unavailable Unavailable ALEKSIC, ILIJUAN A MD Unavailable Unavailable ALEKSIC, ILIJA [...] Unavailable Unavailable ALEKSIC ILIJA MD Unavailable Unavailable ED, TEST DEFAULT [...] Unavailable Easton, F Tarah PA Unavailable Unavailable Bradley, F Tarah PA Unavailable Unavailable Bradley, F Tarah PA Unavailable Unavailable Easton, F Tarah PA Unavailable Unavailable Easton, F Tarah PA Unavailable Unavailable Easton, F Tarah PA Unavailable Unavailable Bradley, F Tarah PA Unavailable Unavailable Easton, F Tarah PA Unavailable Unavailable Bradley, F Tarah PA Unavailable Unavailable Easton, F Tarah PA Unavailable Unavailable Bradley, F Tarah PA Unavailable Unavailable Easton, F Tarah PA Unavailable Unavailable Easton, F Tarah PA Unavailable Unavailable Easton, F Tarah PA Unavailable Unavailable Bradley, F Tarah PA Unavailable Unavailable Bradley, F Tarah PA Unavailable Unavailable Easton, F Tarah PA Unavailable Unavailable Easton, F Tarah PA Unavailable Unavailable Easton, F Tarah PA Unavailable Unavailable Bradley, F Tarah PA Unavailable Unavailable Bradley, F Tarah PA Unavailable Unavailable Easton, F Tarah PA Unavailable Unavailable Easton, F Tarah PA Unavailable Unavailable Easton, F Tarah PA Unavailable Unavailable Easton, F Tarah PA Unavailable Unavailable Bradley, F Tarah PA Unavailable Unavailable Bradley, F Tarah PA Unavailable Unavailable Bradley, F Tarah PA Unavailable Unavailable Bradley, F Tarah PA Unavailable Unavailable Bradley, F Tarah PA Unavailable Unavailable Bradley, F Tarah PA Unavailable Unavailable Easton, F Tarah PA Unavailable Unavailable Easton, F Tarah PA Unavailable Unavailable Bradley, F Tarah PA Unavailable Unavailable Bradley, F Tarah PA Unavailable Unavailable Bradley, F Tarah PA Unavailable Unavailable Easton, F [...] Unavailable Unavailable Melyssa RANKIN MD Unavailable Unavailable KUDAVALLI, PUTROYTHA Unavailable Unavailable Анна Braun MD Unavailable Unavailable [...] is protected by Article 27-F of the [facility] Public Health law. If you continue you may have access to information: Regarding HIV / AIDS; Provided by facilities licensed or operated by the [facility] Office of Mental Health; or Provided by the [facility] Office for People With Developmental Disabilities. If such information is present, then the following [facility] mandated warning applies: This information has been [...] law may result in a fine or prison sentence or both. A general authorization for the release of medical or other information is NOT sufficient authorization for further disc losure. Allergies and Adverse Reactions Type Description Substance Reaction Status Data Source(s ) Propensity to adverse reactions NO KNOWN ALLERGIES NO KNOWN ALLERGIES [facility] Propensity to adverse reactions BICALUTAMIDE BICALUTAMIDE Palpitation s [facility] Casodex Casodex Casodex active [facility] Family History Family Member Name Family Member Gender Family Member Status Date o f Status Description Data Source(s) Unknown Unknown Problem [facility] Unknown Unknown Problem [facility] ([facility] [place] Encounters Encounter Providers Location Date Indications Data Source(s ) Outpatient Attender: Cyn ERVIN 06/27/2021 12:00:0 0 AM [facility] Outpatient Attender: Jermaine Freeman DO 06/27/2021 12:00:00 AM [facility] Outpatient Attender: DAMION CASHAttender: Damion Cash 05/15/2021 12:00:00 AM [facility] Outpatient Attender: Jermaine Freeman DO 05/09/2021 12:00:00 AM [facility] Outpatient Attender: JOSE BAILEY [id number] 04/24/2021 05:06:16 PM [facility] Outpatient Attender: Moni FlorezAttender: MONI SINCLAIR . 04/24/2021 12:00:00 AM [facility] Outpatient Attender: BRENAA COOLEY MDA ttender: JACK KNOWLES MDAttender: KARI ALAS MDAttender: Eulalia Muñiz MDAdmitter: Eulalia Muñiz MDReferrer: Eulalia Muñiz MDConsultant: BREANA COOLEY MD [id number] 04/23/2021 12:09:30 PM EST - 04/24/2021 05:10:00 PM EST Other complications of procedures, not elsewhere classified, initial encounter [facility] Other complications of procedures, not e lsewhere classified, initial encounter Patient discharged. Outpatient Attender: Jermaine Freeman DO 04/23/2021 12:00:00 AM [facility] Outpatient Attender: Jermaine Freeman [id number] 04/18/20 12:00:00 AM [facility] - 04/18/2021 11:52:54 AM [facility] Outpatient Attender: Eulalia Muñiz MD [id number] 04/18/2021 12:00:00 AM [facility] - 04/18/2021 03:04:[address] [facility] Outpatient Attender: ELIO VARGAS [id number] 04/12/2021 12:02:55 PM [facility] Outpatient Attender: Eulalia Galvan i MDAdmitter: Eulalia Muñiz MDReferrer: Eulalia Muñiz MD [id number] 04/09/2021 12:00:00 AM [facility] - 04/09/2021 02:53:00 PM [facility] Liver cell carcinoma [facility] Liver cell carcinoma Patient admitted. Outpatient Referrer: Eulalia Muñiz MD 04/09/2021 12: 00:00 AM [facility] Outpatient Referrer: Eulalia Muñiz MD 04/09/2021 12: 00:00 AM [facility] Outpatient Attender: MARC EDAttender : JENNIFER BURCHReferrer: Eulalia Muñiz MD [id number] 04/05/2021 12:00:00 AM EDT - 04/06/2021 12:00:00 AM T [facility] Outpatient [address] [facility] [address] 04/02/2021 12:00:00 AM EDT eCW1 (Formerly [facility]) ( in Healthcare facility) Attender: INNA YANEZ MDAdmitter: ABIOLA YANEZ MDConsultant: KADE WARD 03/30/2021 01:33:00 AM EDT [facility] Emergency Attender: ABIOLA BLOUNT I MDAttender: GARETH MONTANA MDAttender: ER PHYSICIAN 03/29/2021 10:43:15 PM EDT [facility] Outpatient Attender: ABIOLA BLOUNT I MDAttender: GARETH MONTANA MDAttender: ER PHYSICIANAdmitter: ABIOLA YANEZ MD 09:05:00 PM EDT - 03/31/2021 02:19:00 PM EDT RECURRENT OSTOMY BLEED, HX OF BLADDER CA, LIVER CA [facility] RECURRENT OSTOMY BLEED, HX OF BLADDER CA , LIVER CA Patient discharged. Outpatient Attender: Jermaine Freeman DO [id number] 03/28/20 12:00:00 AM EDT - 03/28/2021 03:07:13 PM EDT [facility] Outpatient Referrer: Jermaine Freeman DO 03/22/2021 12:00: 00 AM EDT Liver cell carcinoma [facility] Liver cell carcinoma Outpatient Attender: Krista Meneses/ Asha.M.P. Urology 03/20 09:40:00 AM EDT [facility] Unknown [address] [facility] [address] [id number] 03/19/2021 12:00:00 AM EDT eC1 ([facility]ly [facility]) Outpatient Attender: Eulalia Muñiz MD [id number] 03/15/2021 03:57:13 PM EDT [facility] Office Visit Attender: DENVER Meneses/ A.M.P. Urol ogy 03/12/2021 04:58:00 PM EDT [facility] ([facility]) Outpatient Attender: DENVER Meneses/ A.M.P. Urol ogy 03/11/2021 08:24:00 AM EDT [facility] ([facility] Inpatient Attender: ELIZABETH WATERS MDAttender: ER PHYSICIAN 03/10/2021 02:21:00 PM EDT [facility] Inpatient Attender: ELIZABETH WATERS MDAttender: ER PHYSICIAN 03/10/2021 01:33:49 PM EDT [facility] Inpatient Attender: ELIZABETH WATERS MDAt tender: ER PHYSICIANAdmitter: ELIZABETH WATERS MD 03/10/2021 12:23:00 PM EDT - 03/12/2021 03:09:00 PM EDT BLEEDING STOMA [facility] BLEEDING STOMA Patient discharged. [place] [address] [facility] [address] 03/06/2021 12:00:00 AM EDT eCW1 ([facility]) Unknown [address] [facility] [facility] [address] 03/05/2021 12:00:00 AM EDT eCW1 ([facility]) Outpatient [address] [facility] [facility] [address] 03/05/2021 12:00:00 AM EDT eCW1 ([facility]) Outpatient Attender: Eulalia Muñiz MD [id number] 03/04/2021 12:00:00 AM EDT - 03/04/2021 12:42:30 PM EDT [facility] spital Outpatient 03/04/2021 12:00:00 AM EDT [facility] Outpatient Attender: Jermaine Freeman DO [id number] 02/29/20 12:00:00 AM EDT - 02/28/2021 12:20:04 PM T [facility] Unknown [address] [facility] [address] 02/20/2021 12:00:00 AM EDT eCW1 ([facility]) Outpatient Attender: IESHA CARLIN MD CMP Internal Med a t [place] 02/18/2021 02:13:00 AM EDT [facility] ([facility]) Outpatient Attender: IESHA CARLIN MD CMP Internal Med a t [place] 02/17/2021 01:59:00 AM EDT [facility] ([facility]) Outpatient Attender: ER PHYSICIAN 02/16/2021 01:10:00 AM E [facility] Inpatient Attender: NIRALI Stroud donis: GARETH MONTANA MDAttender: ER PHYSICIANAdmitter: GARETH MONTANA MD 02/16/2021 12:28:09 AM EDT [facility] Inpatient Attender: NIRALI Stroud donis: GARETH MONTANA MDAttender: ER PHYSICIANAdmitter: NIRALI RANKIN MD 02/15/2021 10:55:00 P M EDT - 02/18/2021 10:51:00 AM EDT ACUTE BLOOD LOSS ANEMIA [facility] ACUTE BLOOD LOSS ANEMIA Patient discharged. Unknown [address] [facility] [address] 02/15/2021 12:00:00 AM EDT eCW1 ([facility]) Outpatient Attender: MAR Meneses/ Asah.KarolP. Urol ogy 02/14/2021 10:00:00 AM EDT [facility] Out[facility] Admitter: Анна Braun MDReferrer: Анна Braun MD 02/12/2021 12:00:00 AM EDT Liver cell carcinoma [facility] Liver cell carcinoma Unknown [address] [facility] [address] 02/05/2021 12:00:00 AM EDT eCW1 ([facility]ly [facility]) Inpatient Attender: ER PHYSICIAN 01/31/2021 12:56:00 AM E DT [facility] Inpatient Attender: ARNAUD PEREZ MDAttender: ER P HYSICIATIYA 01/31/2021 12:29:40 AM EDT [facility] Inpatient Attender: ARNAUD HAAS MDAttender: ER PHYSICIANAdmitter: ARNAUD PEREZ MD 01/30/2021 10:55:00 PM EDT - 01/31/2021 11:15:00 AM EDT HEMATURIA [facility] HEMATURIA Patient discharged. Outpatient Attender: Kalia Meneses/ A.M.P. Urolo gy 01/22/2021 11:00:00 AM EDT [facility] [place] [address] [facility] [address] 01/22/2021 12:00:00 AM EDT eCW1 ([facility]) Unknown [address] [facility] [address] 01/22/2021 12:00:00 AM EDT eCW1 ([facility]) Unknown [address] [facility] [address] 01/17/2021 12:00:00 AM EDT eCW1 ([facility]) Unknown [address] [facility] [address] 01/16/2021 12:00:00 AM EDT eCW1 ([facility]) Unknown [address] [facility] [address] 01/09/2021 12:00:00 AM EDT eCW1 ([facility]) Unknown [address] [facility] [address] 01/08/2021 12:00:00 AM EDT eCW1 ([facility]) Outpatient [address] [facility] [address] 01/01/2021 12:00:00 AM EDT eCW1 ([facility]) Unknown [address] [facility] [address] 12/25/2020 12:00:00 AM EDT eCW1 ([facility]) Unknown [address] [facility] [address] 12/24/2020 12:00:00 AM EDT eCW1 ([facility]) Office Visit Attender: Tarah Meneses/ Leonardo sullivan 12/05/2020 10:30:00 AM EDT [facility] ([facility] Unknown [address] [facility] [address] 11/29/2020 12:00:00 AM EDT eCW1 ([facility]) Outpatient [address] [facility] [address] 11/28/2020 12:00:00 AM EDT eCW1 ([facility]) 11/24/2020 01:00:00 AM EDT - 021 11:47:23 PM EDT NETSMART ([facility]) Inpatient Attender: LORENA RITTER MD 11/13/2020 12:03:14 PM EDT [facility] Inpatient Attender: Krista Kitchen MDAdmitter: Krista Kitchen MD 11/13/2020 10:43:00 AM EDT - 11/22/2020 02:37:00 PM EDT 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 [place] ( in Healthcare facility) Attender: Krista Sesay MDAdmitter: Krista Kitchen MDConsultant: KADE WARD 11/13/2020 10:43:00 AM EDT [facility] Inpatient Attender: Krista Kitchen MD 11/13/2020 10:43:00 AM EDT [facility] Unknown [address] [facility], [facility] [address] 11/09/2020 12:00:00 AM EDT eCW1 ([facility]) Unknown [address] [facility] [address] 11/08/2020 12:00:00 AM EDT eCW1 ([facility]) Outpatient [address] [facility] [address] 11/07/2020 12:00:00 AM EDT eCW1 ([facility]) Outpatient Attender: LORENA RITTER MD 11/06/2020 01:09:23 PM EDT [facility] Outpatient Attender: Krista Kitchen MD 11/06/2020 11:56:00 A M EDT ROBOTIC XI ASSISTED LAPAROSCOPIC CYSTOPROSTATECTOMY ILEOCOND [facility] ROBOTIC XI ASSISTED LAPAROSCOPIC CYSTOPR OSTATECTOMY ILEOCOND Unknown [address] [facility] [address] 09/11/2020 12:00:00 AM EDT eCW1 ([facility]) Outpatient Attender: Krista Meneses/ CmMGwenPGwen Urology 09/10 04:00:00 PM EDT [facility] Outpatient Attender: MAR Meneses/ A.M.P. Urol ogy 08/03/2020 01:30:00 PM EST [facility] ([facility] [place] Outpatient Attender: Kalia Saxena RPA [place]/ A.M.P. Urolo gy 07/20/2020 01:15:00 PM EST [facility] ([facility] Outpatient Attender: Kalia Saxena RPA [place]/ A.M.P. Urolo gy 05/30/2020 01:00:00 PM EST [facility] ([facility] Outpatient [address] [facility] [address] 05/18/2020 12:00:00 AM EST eCW1 ([facility]) Outpatient [address] [facility] [address] 05/11/2020 12:00:00 AM EST eCW1 ([facility]) Outpatient [address] [facility] [address] 05/08/2020 12:00:00 AM EST eCW1 ([facility]) Outpatient Attender: Krista Kitchen MD [place]/ A.M.P. Urology 04/20 07:30:00 AM EST [facility] ([facility] Unknown [address] [facility] [address] 03/27/2020 12:00:00 AM EDT eCW1 ([facility]) Outpatient Attender: MAR Meneses/ A.M.P. Urol ogy 03/22/2020 11:00:00 AM EDT [facility] ([facility] Outpatient Attender: Kalia Saxena RPA [place]/ A.M.P. Urolo gy 03/20/2020 03:00:00 PM EDT [facility] ([facility] Outpatient Attender: Kalia Saxena RPA [place]/ A.M.P. Urolo gy 03/16/2020 02:45:00 PM EDT [facility] ([facility] Outpatient Referrer: MAR CASTANEDA MD MOB-MOB.PAT 11:08:19 AM EDT - 02/26/2020 11:08:37 AM EDT [facility] Attender: MAR CASTANEDA MD Admitter: MAR CASTANEDA MDReferrer: MAR CASTANEDA MD [facility] 01/19/2020 10:10:55 AM EDT - 03/02/2020 01:04:00 PM EDT [facility] Patient discharged. Immunizations Vaccine Date Status Description Data Source(s) Pfizer #3 dose COVID-19 SARSCOV2 VAC 30MCG/0.3ML IM 03/14/20 06:15:00 AM EDT completed eCW1 ([facility]) COVID-19 VACC, MRNA(PFIZER)/PF 03/14/2021 12:00:00 AM EDT completed [facility] COVID-19 VACCINE Pfizer 03/14/2021 12:00:00 AM EDT completed [facility] Vaccine Series Complete: YESThis Data wa s Submitted to [facility] Via [employer]. IIV3. This is one of two codes replacing CVX 15, which is being retired. 02/26/2021 06:37:00 AM EDT completed eCW1 ([facility]) IIV3. This is one of two codes replacing CVX 15, which is being retired. 02/26/2021 06:37:00 AM EDT completed eCW1 ([facility]) IIV3. This is one of two codes replacing CVX 15, which is being retired. 02/26/2021 06:37:00 AM EDT completed eCW1 ([facility]) IIV3. This is one of two codes replacing CVX 15, which is being retired. 02/26/2021 06:37:00 AM EDT completed eCW1 ([facility]) IIV3. This is one of two codes replacing CVX 15, which is being retired. 02/26/2021 06:37:00 AM EDT completed eCW1 ([facility]) IIV3. This is one of two codes replacing CVX 15, which is being retired. 02/26/2021 06:37:00 AM EDT completed eCW1 ([facility]) 197 02/26/2021 12:00:00 AM EDT completed <td I D="[id number]">Influenza Quad High Dose IM Pres Free >=65YO</td><td>02/26/2021, 03/08/2020</td><td></td> [facility] COVID-19 dose #2 given elsewhere Unspecified 07/29/2020 06:0 7:00 AM EST completed eCW1 ([facility]) COVID-19 dose #2 given elsewhere Unspecified 07/29/2020 06:0 7:00 AM EST completed eCW1 ([facility]) COVID-19 dose #2 given elsewhere Unspecified 07/29/2020 06:0 7:00 AM EST completed eCW1 ([facility]) COVID-19 dose #2 given elsewhere Unspecified 07/29/2020 06:0 7:00 AM EST completed eCW1 ([facility]) COVID-19 dose #2 given elsewhere Unspecified 07/29/2020 06:0 7:00 AM EST completed eCW1 ([facility]) COVID-19 dose #2 given elsewhere Unspecified 07/29/2020 06:0 7:00 AM EST completed eCW1 ([facility]) COVID-19 dose #2 given elsewhere Unspecified 07/29/2020 06:0 7:00 AM EST completed eCW1 ([facility]) COVID-19 dose #2 given elsewhere Unspecified 07/29/2020 06:0 7:00 AM EST completed eCW1 ([facility]) COVID-19 dose #2 given elsewhere Unspecified 07/29/2020 06:0 7:00 AM EST completed eCW1 ([facility]) COVID-19 dose #2 given elsewhere Unspecified 07/29/2020 06:0 7:00 AM EST completed eCW1 ([facility]) COVID-19 dose #2 given elsewhere Unspecified 07/29/2020 06:0 7:00 AM EST completed eCW1 ([facility]) COVID-19 dose #2 given elsewhere Unspecified 07/29/2020 06:0 7:00 AM EST completed eCW1 ([facility]) COVID-19 dose #2 given elsewhere Unspecified 07/29/2020 06:0 7:00 AM EST completed eCW1 ([facility]) COVID-19 dose #2 given elsewhere Unspecified 07/29/2020 06:0 7:00 AM EST completed eCW1 ([facility]) COVID-19 dose #2 given elsewhere Unspecified 07/29/2020 06:0 7:00 AM EST completed eCW1 ([facility]) COVID-19 dose #2 given elsewhere Unspecified 07/29/2020 06:0 7:00 AM EST completed eCW1 ([facility]) COVID-19 dose #2 given elsewhere Unspecified 07/29/2020 06:0 7:00 AM EST completed eCW1 ([facility]) COVID-19 dose #2 given elsewhere Unspecified 07/29/2020 06:0 7:00 AM EST completed eCW1 ([facility]) COVID-19 dose #2 given elsewhere Unspecified 07/29/2020 06:0 7:00 AM EST completed eCW1 ([facility]) COVID-19 dose #2 given elsewhere Unspecified 07/29/2020 06:0 7:00 AM EST completed eCW1 ([facility]) COVID-19 dose #2 given elsewhere Unspecified 07/29/2020 06:0 7:00 AM EST completed eCW1 ([facility]) COVID-19 dose #2 given elsewhere Unspecified 07/29/2020 06:0 7:00 AM EST completed eCW1 ([facility]) COVID-19 (Pfizer), mRNA, LNP-S, PF, 30 mcg/0.3 mL dose 07/29/2020 12:00:00 AM EST completed [facility] COVID-19 VACCINE Pfizer 07/29/2020 12:00:00 AM EST completed [facility] Vaccine Series Complete: YESThis Data wa s Submitted to [facility] Via [employer]. [employer] Covid-19 Sars-Cov-2, mRNA, LNP-S, PF, 30 mcg/ 0 .3 mL 07/28/2020 11:00:00 PM EST completed [facility] ([facility]) COVID-19 dose #1 given elsewhere Unspecified 07/08/2020 06:0 7:00 AM EST completed eCW1 ([facility]) COVID-19 dose #1 given elsewhere Unspecified 07/08/2020 06:0 7:00 AM EST completed eCW1 ([facility]) COVID-19 dose #1 given elsewhere Unspecified 07/08/2020 06:0 7:00 AM EST completed eCW1 (Formerly [facility]) COVID-19 dose #1 given elsewhere Unspecified 07/08/2020 06:0 7:00 AM EST completed eCW1 ([facility]ly [facility]) COVID-19 dose #1 given elsewhere Unspecified 07/08/2020 06:0 7:00 AM EST completed eCW1 ([facility]) COVID-19 dose #1 given elsewhere Unspecified 07/08/2020 06:0 7:00 AM EST completed eCW1 ([facility]) COVID-19 dose #1 given elsewhere Unspecified 07/08/2020 06:0 7:00 AM EST completed eCW1 ([facility]) COVID-19 dose #1 given elsewhere Unspecified 07/08/2020 06:0 7:00 AM EST completed eCW1 ([facility]) COVID-19 dose #1 given elsewhere Unspecified 07/08/2020 06:0 7:00 AM EST completed eCW1 ([facility]) COVID-19 dose #1 given elsewhere Unspecified 07/08/2020 06:0 7:00 AM EST completed eCW1 ([facility]) COVID-19 dose #1 given elsewhere Unspecified 07/08/2020 06:0 7:00 AM EST completed eCW1 ([facility]) COVID-19 dose #1 given elsewhere Unspecified 07/08/2020 06:0 7:00 AM EST completed eCW1 ([facility]) COVID-19 dose #1 given elsewhere Unspecified 07/08/2020 06:0 7:00 AM EST completed eCW1 ([facility]) COVID-19 dose #1 given elsewhere Unspecified 07/08/2020 06:0 7:00 AM EST completed eCW1 ([facility]) COVID-19 dose #1 given elsewhere Unspecified 07/08/2020 06:0 7:00 AM EST completed eCW1 ([facility]) COVID-19 dose #1 given elsewhere Unspecified 07/08/2020 06:0 7:00 AM EST completed eCW1 ([facility]) COVID-19 dose #1 given elsewhere Unspecified 07/08/2020 06:0 7:00 AM EST completed eCW1 ([facility]) COVID-19 dose #1 given elsewhere Unspecified 07/08/2020 06:0 7:00 AM EST completed eCW1 ([facility]) COVID-19 dose #1 given elsewhere Unspecified 07/08/2020 06:0 7:00 AM EST completed eCW1 ([facility]) COVID-19 dose #1 given elsewhere Unspecified 07/08/2020 06:0 7:00 AM EST completed eCW1 ([facility]) COVID-19 dose #1 given elsewhere Unspecified 07/08/2020 06:0 7:00 AM EST completed eCW1 ([facility]) COVID-19 dose #1 given elsewhere Unspecified 07/08/2020 06:0 7:00 AM EST completed eCW1 ([facility]) COVID-19 (Pfizer), mRNA, LNP-S, PF, 30 mcg/0.3 mL dose 07/08/2020 12:00:00 AM EST completed [facility] COVID-19 VACCINE Pfizer 07/08/2020 12:00:00 AM EST completed [facility] Vaccine Series Complete: NOThis Data was Submitted to [facility] Via [facility]. Pfizer Covid-19 Sars-Cov-2, mRNA, LNP-S, PF, 30 mcg/ 0 .3 mL 07/07/2020 11:00:00 PM EST completed MEDENT ([facility]) IIV3. This is one of two codes replacing CVX 15, which is being retired. 03/08/2020 06:06:00 AM EDT completed eCW1 ([facility]) IIV3. This is one of two codes replacing CVX 15, which is being retired. 03/08/2020 06:06:00 AM EDT completed eCW1 ([facility]) IIV3. This is one of two codes replacing CVX 15, which is being retired. 03/08/2020 06:06:00 AM EDT completed eCW1 ([facility]) IIV3. This is one of two codes replacing CVX 15, which is being retired. 03/08/2020 06:06:00 AM EDT completed eCW1 ([facility]) IIV3. This is one of two codes replacing CVX 15, which is being retired. 03/08/2020 06:06:00 AM EDT completed eCW1 ([facility]) IIV3. This is one of two codes replacing CVX 15, which is being retired. 03/08/2020 06:06:00 AM EDT completed eCW1 ([facility]) IIV3. This is one of two codes replacing CVX 15, which is being retired. 03/08/2020 06:06:00 AM EDT completed eCW1 ([facility]) IIV3. This is one of two codes replacing CVX 15, which is being retired. 03/08/2020 06:06:00 AM EDT completed eCW1 ([facility]) IIV3. This is one of two codes replacing CVX 15, which is being retired. 03/08/2020 06:06:00 AM EDT completed eCW1 ([facility]) IIV3. This is one of two codes replacing CVX 15, which is being retired. 03/08/2020 06:06:00 AM EDT completed eCW1 ([facility]) IIV3. This is one of two codes replacing CVX 15, which is being retired. 03/08/2020 06:06:00 AM EDT completed eCW1 ([facility]) IIV3. This is one of two codes replacing CVX 15, which is being retired. 03/08/2020 06:06:00 AM EDT completed eCW1 ([facility]) IIV3. This is one of two codes replacing CVX 15, which is being retired. 03/08/2020 06:06:00 AM EDT completed eCW1 ([facility]) IIV3. This is one of two codes replacing CVX 15, which is being retired. 03/08/2020 06:06:00 AM EDT completed eCW1 ([facility]) IIV3. This is one of two codes replacing CVX 15, which is being retired. 03/08/2020 06:06:00 AM EDT completed eCW1 ([facility]) IIV3. This is one of two codes replacing CVX 15, which is being retired. 03/08/2020 06:06:00 AM EDT completed eCW1 ([facility]) IIV3. This is one of two codes replacing CVX 15, which is being retired. 03/08/2020 06:06:00 AM EDT completed eCW1 ([facility]) IIV3. This is one of two codes replacing CVX 15, which is being retired. 03/08/2020 06:06:00 AM EDT completed eCW1 ([facility]) IIV3. This is one of two codes replacing CVX 15, which is being retired. 03/08/2020 06:06:00 AM EDT completed eCW1 ([facility]) IIV3. This is one of two codes replacing CVX 15, which is being retired. 03/08/2020 06:06:00 AM EDT completed eCW1 ([facility]) IIV3. This is one of two codes replacing CVX 15, which is being retired. 03/08/2020 06:06:00 AM EDT completed eCW1 ([facility]) IIV3. This is one of two codes replacing CVX 15, which is being retired. 03/08/2020 06:06:00 AM EDT completed eCW1 ([facility]) INFLUENZA VIRUS VACCINE QUADRIVAL SPLIT 2019-21(65 YR UP)/PF 03/08/2020 12:00:00 AM EDT completed [facility] 197 03/08/2020 12:00:00 AM EDT completed <td I D="[id number]">Influenza Quad High Dose IM Pres Free >=65YO</td><td>02/26/2021, 03/08/2020</td><td></td> [facility] Medications Medication Brand Name Start Date Product Form Dose Route Admi nistrative Instructions Pharmacy Instructions Status Indications Reaction Description Data Source(s) Furosemide 20 MG Oral Tablet furosemide (LASIX) tablet 40 mg furosemide (LASIX) tablet 40 mg 04/24/2021 09:00:00 AM EST 40 mg Oral activ e 40 mg, Oral, Daily Standard, First dose on Thu04/24/21 at 0900, For 30 days [facility] Medication administered onsite Hydroxyzine Hydrochloride 25 MG Oral Tablet hydrOXYzin e (ATARAX) tablet 25 mg hydrOXYzine (ATARAX) tablet 25 mg 04/24/2021 03:00:00 AM EST 25 mg Oral completed 25 mg, Oral, Once, On Thu at 0300, For 1 dose [facility] Medication administered onsite Nadolol 20 MG Oral Tablet Nadolol 20 MG Oral Tablet (C orgard) Nadolol 20 MG Oral Tablet (Corgard) 04/24/2021 12:00:00 AM EST 20 mg Oral a ctive Take 1 tablet by mouth nightly [facility] Sucralfate 1000 MG Oral Tablet Sucralfate 1 GM Oral Ta blet (Carafate) Sucralfate 1 GM Oral Tablet (Carafate) 04/24/2021 12:00:00 AM EST 1 g Oral active Take 1 tablet by mouth Four times daily [facility] 20 mg 04/24/2021 12:00:00 AM EST tablet [...] on Thu04/23/21 at 2224, For 30 days [facility] Medication administered onsite pantoprazole 40 MG Delayed Release Oral Tablet pantoprazole (PROTONIX) EC tablet 40 mg pantoprazole (PROTONIX) EC tablet 40 mg 04/23/2021 10:00:[address] 40 mg Oral active 40 mg, Ora l, Nightly, First dose on Thu04/23/21 at 2200, For 30 days
Do not crush or chew
[facility] Medication administered onsite Spironolactone 25 MG Oral Tablet spironolactone (ALDAC TONE) tablet 25 mg spironolactone (ALDACTONE) tablet 25 mg 04/23/2021 09:00:00 PM EST 25 mg Oral active 25 mg, Oral, 2 Times Daily, First dose on Thu04/23/21 at 2100, For 30 days [facility] Medication administered onsite insulin lispro (HumaLOG) injection LOW DOSE EATING INS ULIN patients 1-8 Units [id number] 04/23/2021 06:00:00 PM EST U Subcutaneous active 1-8 Units, Subcutaneous, Three Times Daily-With Meals, First dose on Thu04/23/21 at 1800, For 30 days
Nursing MUST open the 'SQ Insulin Dosing Charts' Sidebar Report, or, the Patient Summary or Summary Report within the ED.
[facility] Medication administered onsite sodium chloride [...] For 1 occurrence
Pre-op [Order 4 End] [facility] Medication administered onsite Glucose 0.417 MG/MG Oral Gel glucose (GLUTOSE) 40 % or al gel 15 g glucose (GLUTOSE) 40 % oral gel 15 g 04/23/2021 04:52:45 PM EST 15 g Oral active 15 g, Oral, PRN, Low blood s ugar, for gluose 55-69 mg/dl and able to take PO, Starting on Thu04/23/21 at 1652, For 30 days [facility] Medication administered onsite Glucagon 1 MG Injection glucagon (human recombinant) ( GLUCAGEN) injection 1 mg glucagon (human recombinant) (GLUCAGEN) injection 1 mg 04/23/2021 04:52:45 PM EST 1 mg Intramuscular active 1 mg, Intramuscular, PRN, for glucose <55 without IV access, Starting on Thu04/23/21 at 1652, For 30 days [facility] Medication administered onsite dextrose 50 % IV solution 25 mL [id number] 04/23/2021 04:52:[address] 25 mL Intravenous active 25 mL, Intrav enous, PRN, Other, blood glucose <55, Starting on Thu04/23/21 at 1652, For 30 days
Not for midline administration.
[facility] Medication administered onsite Sodium Tetradecyl Sulfate 30 MG/ML Injec table Solution sodium tetradecyl sulfate (SOTRADECOL) 3 % injection sodium tetradecyl sulfate (SOTRADECOL) 3 % injection 04/23/2021 03:13:38 PM EST completed Once PRN, Starting on Thu04/23/21 at 1513 [facility] Medication administered onsite 2 ML Midazolam 1 MG/ML Injection midazolam (PF) (VERSE D) injection midazolam (PF) (VERSED) injection 04/23/2021 03:01:37 PM EST completed Once PRN, Starting on Thu04/23/21 at 1501 [facility] Medication administered onsite fentaNYL (SUBLIMAZE) (PF) injection [id number] 04/23/2021 03:01:18 PM EST completed Once PRN, Starting on Thu04/23/21 at 1501 [facility] Medication administered onsite Glucagon 1 MG Injection glucagon (human recombinant) ( GLUCAGEN) injection 1 mg glucagon (human recombinant) (GLUCAGEN) injection 1 mg 04/23/2021 12:31:03 PM EST 1 mg Intramuscular active 1 mg, Intramuscular, PRN, for glucose <55 without IV access, Starting on Thu04/23/21 at 1231, For 30 days [facility] Medication administered onsite dextrose 50 % IV solution 25 mL [id number] 04/23/2021 12:31:[address] 25 mL Intravenous active 25 mL, Intrav enous, PRN, Other, blood glucose <55, Starting on Thu04/23/21 at 1231, For 30 days
Not for midline administration.
[facility] Medication administered onsite Cefazolin 2000 MG Injection ceFAZolin (ANCEF) IVPB 2 g in dextrose (premix) ceFAZolin (ANCEF) IVPB 2 g in dextrose (premix) 04/23/2021 10:30:00 AM EST 2 g Intravenous completed 2 g, Int ravenous, Administer over 30 Minutes, Once, On Thu04/23/21 at 1030, For 1 dose, Pre-op [facility] Medication administered onsite montelukast 10 [...] active Take 1 tablet by mouth n [facility] 50 mg 04/03/2021 12:00:00 AM EDT [...] active Abdomina l Binder/Elastic 3XL - eCW1 ([facility]) Abdominal Binder/Elastic 3XL - Abdominal Binder/Elastic 3XL - 03/05/2021 12:00:00 AM EDT active Abdomina l Binder/Elastic 3XL - eCW1 ([facility]) Abdominal Binder/Elastic 3XL - Abdominal Binder/Elastic 3XL - 03/05/2021 12:00:00 AM EDT active Abdomina l Binder/Elastic 3XL - eCW1 ([facility]) Abdominal Binder/Elastic 3XL - Abdominal Binder/Elastic 3XL - 03/05/2021 12:00:00 AM EDT active Abdomina l Binder/Elastic 3XL - eCW1 ([facility]) Abdominal Binder/Elastic 3XL - Abdominal Binder/Elastic 3XL - 03/05/2021 12:00:00 AM EDT active Abdomina l Binder/Elastic 3XL - eCW1 ([facility]) Abdominal Binder/Elastic 3XL - Abdominal Binder/Elastic 3XL - 03/05/2021 12:00:00 AM EDT active Abdomina l Binder/Elastic 3XL - eCW1 ([facility]) 4 mg 02/28/2021 12:00:00 AM EDT [...] A S NEEDED FOR ITCHING SOLD: 02/13/2021 [facility] HydrOXYzine HCl 10 MG HydrOXYzine HCl 01/08/2021 01:00:00 AM EDT completed NETSMART ([facility]) Hydroxyzine Hydrochloride 10 MG Oral Tablet hydrOXYzin e HCl 10 MG hydrOXYzine HCl 10 MG 01/08/2021 12:00:00 AM EDT 1.0 {tablet} ac tive hydrOXYzine HCl 10 MG eCW1 ([facility]) Hydroxyzine Hydrochloride 10 MG Oral Tablet hydrOXYzin e HCl 10 MG hydrOXYzine HCl 10 MG 01/08/2021 12:00:00 AM EDT 1.0 {tablet} ac tive hydrOXYzine HCl 10 MG eCW1 ([facility]) Hydroxyzine Hydrochloride 10 MG Oral Tablet hydrOXYzin e HCl 10 MG hydrOXYzine HCl 10 MG 01/08/2021 12:00:00 AM EDT 1.0 {tablet} ac tive hydrOXYzine HCl 10 MG eCW1 ([facility]) Hydroxyzine Hydrochloride 10 MG Oral Tablet hydrOXYzin e HCl 10 MG hydrOXYzine HCl 10 MG 01/08/2021 12:00:00 AM EDT 1.0 {tablet} ac tive hydrOXYzine HCl 10 MG eCW1 ([facility]) Hydroxyzine Hydrochloride 10 MG Oral Tablet hydrOXYzin e HCl 10 MG hydrOXYzine HCl 10 MG 01/08/2021 12:00:00 AM EDT 1.0 {tablet} ac tive hydrOXYzine HCl 10 MG eCW1 ([facility]) Hydroxyzine Hydrochloride 10 MG Oral Tablet hydrOXYzin e HCl 10 MG hydrOXYzine HCl 10 MG 01/08/2021 12:00:00 AM EDT 1.0 {tablet} ac tive hydrOXYzine HCl 10 MG eCW1 ([facility]) Hydroxyzine Hydrochloride 10 MG Oral Tablet hydrOXYzin e HCl 10 MG hydrOXYzine HCl 10 MG 01/08/2021 12:00:00 AM EDT 1.0 {tablet} ac tive hydrOXYzine HCl 10 MG eCW1 ([facility]) Hydroxyzine Hydrochloride 10 MG Oral Tablet hydrOXYzin e HCl 10 MG hydrOXYzine HCl 10 MG 01/08/2021 12:00:00 AM EDT 1.0 {tablet} ac tive hydrOXYzine HCl 10 MG eCW1 ([facility]) Hydroxyzine Hydrochloride 10 MG Oral Tablet hydrOXYzin e HCl 10 MG hydrOXYzine HCl 10 MG 01/08/2021 12:00:00 AM EDT 1.0 {tablet} ac tive hydrOXYzine HCl 10 MG eCW1 ([facility]) Hydroxyzine Hydrochloride 10 MG Oral Tablet hydrOXYzin e HCl 10 MG hydrOXYzine HCl 10 MG 01/08/2021 12:00:00 AM EDT 1.0 {tablet} ac tive hydrOXYzine HCl 10 MG eCW1 ([facility]) Hydroxyzine Hydrochloride 10 MG Oral Tablet hydrOXYzin e HCl 10 MG hydrOXYzine HCl 10 MG 01/08/2021 12:00:00 AM EDT 1.0 {tablet} ac tive hydrOXYzine HCl 10 MG eCW1 ([facility]) Hydroxyzine Hydrochloride 10 MG Oral Tablet hydrOXYzin e HCl 10 MG hydrOXYzine HCl 10 MG 01/08/2021 12:00:00 AM EDT 1.0 {tablet} ac tive hydrOXYzine HCl 10 MG eCW1 ([facility]) Hydroxyzine Hydrochloride 10 MG Oral Tablet hydrOXYzin e HCl 10 MG hydrOXYzine HCl 10 MG 01/08/2021 12:00:00 AM EDT 1.0 {tablet} ac tive hydrOXYzine HCl 10 MG eCW1 ([facility]) Hydroxyzine Hydrochloride 10 MG Oral Tablet hydrOXYzin e HCl 10 MG hydrOXYzine HCl 10 MG 01/08/2021 12:00:00 AM EDT 1.0 {tablet} ac tive hydrOXYzine HCl 10 MG eCW1 ([facility]) Hydroxyzine Hydrochloride 10 MG Oral Tablet hydrOXYzin e HCl 10 MG hydrOXYzine HCl 10 MG 01/08/2021 12:00:00 AM EDT 1.0 {tablet} ac tive hydrOXYzine HCl 10 MG eCW1 ([facility]) Losartan Potassium 100 MG Losartan Potassium 01/07/2021 01:00:00 AM EDT completed NETSMART ([facility]) Spironolactone 25 MG Spironolactone 01/07/2021 01:00:00 AM EDT completed NETSMART ([facility]) 20 mg 01/02/2021 12:00:00 AM EDT [...] {tablet} active Spironolact one 25 MG eCW1 ([facility]) Spironolactone 25 MG Oral Tablet Spironolactone 25 MG 2020 12:00:00 AM EDT 1.0 {tablet} active Spironolact one 25 MG eCW1 ([facility]) Losartan Potassium 50 MG Oral Tablet Losartan Potassium 50 M G 01/01/2021 12:00:00 AM EDT active Losartan Potassium 50 MG eCW1 ([facility]) Spironolactone 25 MG Oral Tablet Spironolactone 25 MG 2020 12:00:00 AM EDT 1.0 {tablet} active Spironolact one 25 MG eCW1 ([facility]) Spironolactone 25 MG Oral Tablet Spironolactone 25 MG 2020 12:00:00 AM EDT 1.0 {tablet} active Spironolact one 25 MG eCW1 ([facility]) Losartan Potassium 100 MG Oral Tablet Losartan Potassium 100 MG 01/01/2021 12:00:00 AM EDT 1.0 {tablet} active Lo sartan Potassium 100 MG eCW1 ([facility]) Losartan Potassium 100 MG Oral Tablet Losartan Potassium 100 MG 01/01/2021 12:00:00 AM EDT 1.0 {tablet} active Lo sartan Potassium 100 MG eCW1 ([facility]) Spironolactone 25 MG Oral Tablet Spironolactone 25 MG 2020 12:00:00 AM EDT 1.0 {tablet} active Spironolact one 25 MG eCW1 ([facility]) Spironolactone 25 MG Oral Tablet Spironolactone 25 MG 2020 12:00:00 AM EDT 1.0 {tablet} active Spironolact one 25 MG eCW1 ([facility]) Spironolactone 25 MG Oral Tablet Spironolactone 25 MG 2020 12:00:00 AM EDT 1.0 {tablet} active Spironolact one 25 MG eCW1 ([facility]) Losartan Potassium 100 MG Oral Tablet Losartan Potassium 100 MG 01/01/2021 12:00:00 AM EDT 1.0 {tablet} active Lo sartan Potassium 100 MG eCW1 ([facility]) Losartan Potassium 100 MG Oral Tablet Losartan Potassium 100 MG 01/01/2021 12:00:00 AM EDT 1.0 {tablet} active Lo sartan Potassium 100 MG eCW1 ([facility]) Losartan Potassium 100 MG Oral Tablet Losartan Potassium 100 MG 01/01/2021 12:00:00 AM EDT 1.0 {tablet} active Lo sartan Potassium 100 MG eCW1 ([facility]) Losartan Potassium 100 MG Oral Tablet Losartan Potassium 100 MG 01/01/2021 12:00:00 AM EDT 1.0 {tablet} active Lo sartan Potassium 100 MG eCW1 ([facility]) Losartan Potassium 100 MG Oral Tablet Losartan Potassium 100 MG 01/01/2021 12:00:00 AM EDT 1.0 {tablet} active Lo sartan Potassium 100 MG eCW1 ([facility]) Losartan Potassium 100 MG Oral Tablet Losartan Potassium 100 MG 01/01/2021 12:00:00 AM EDT 1.0 {tablet} active Lo sartan Potassium 100 MG eCW1 ([facility]) Spironolactone 25 MG Oral Tablet Spironolactone 25 MG 2020 12:00:00 AM EDT 1.0 {tablet} active Spironolact one 25 MG eCW1 ([facility]) Losartan Potassium 100 MG Oral Tablet Losartan Potassium 100 MG 01/01/2021 12:00:00 AM EDT 1.0 {tablet} active Lo sartan Potassium 100 MG eCW1 ([facility]) Losartan Potassium 100 MG Oral Tablet Losartan Potassium 100 MG 01/01/2021 12:00:00 AM EDT 1.0 {tablet} active Lo sartan Potassium 100 MG eCW1 ([facility]) Spironolactone 25 MG Oral Tablet Spironolactone 25 MG 2020 12:00:00 AM EDT 1.0 {tablet} active Spironolact one 25 MG eCW1 ([facility]) Spironolactone 25 MG Oral Tablet Spironolactone 25 MG 2020 12:00:00 AM EDT 1.0 {tablet} active Spironolact one 25 MG eCW1 ([facility]) Losartan Potassium 100 MG Oral Tablet Losartan Potassium 100 MG 01/01/2021 12:00:00 AM EDT 1.0 {tablet} active Lo sartan Potassium 100 MG eCW1 ([facility]) Losartan Potassium 100 MG Oral Tablet Losartan Potassium 100 MG 01/01/2021 12:00:00 AM EDT 1.0 {tablet} active Lo sartan Potassium 100 MG eCW1 ([facility]) Losartan Potassium 100 MG Oral Tablet Losartan Potassium 100 MG 01/01/2021 12:00:00 AM EDT 1.0 {tablet} active Lo sartan Potassium 100 MG eCW1 ([facility]) Spironolactone 25 MG Oral Tablet Spironolactone 25 MG 2020 12:00:00 AM EDT 1.0 {tablet} active Spironolact one 25 MG eCW1 ([facility]) Losartan Potassium 100 MG Oral Tablet Losartan Potassium 100 MG 01/01/2021 12:00:00 AM EDT 1.0 {tablet} active Lo sartan Potassium 100 MG eCW1 ([facility]) Spironolactone 25 MG Oral Tablet Spironolactone 25 MG 2020 12:00:00 AM EDT 1.0 {tablet} active Spironolact one 25 MG eCW1 ([facility]) Spironolactone 25 MG Oral Tablet Spironolactone 25 MG 2020 12:00:00 AM EDT 1.0 {tablet} active Spironolact one 25 MG eCW1 ([facility]) Spironolactone 25 MG Oral Tablet Spironolactone 25 MG 2020 12:00:00 AM EDT 1.0 {tablet} active Spironolact one 25 MG eCW1 ([facility]) Spironolactone 25 MG Oral Tablet Spironolactone 25 MG 2020 12:00:00 AM EDT 1.0 {tablet} active Spironolact one 25 MG eCW1 ([facility]) Colace 100 MG Colace 12/31/2020 01:00:00 AM EDT co [facility] Potassium Chloride Potassium Chloride 12/31/2020 01:00:00 AM EDT 15.0 {mEq} completed NETSMART ([facility]) 15 mEq 12/25/2020 12:00:00 AM EDT tablet,ER particles/cry stals 10 TAKE ONE TABLET BY MOUTH EVERY DAY DIRECTED TAKE ONE TABLET BY MOUTH EVERY DAY DIRECTED SOLD: 12/25/2020 [facility] Lasix 20 MG Lasix 12/24/2020 01:00:00 AM EDT compl [facility]ed [facility] Furosemide 20 MG Oral Tablet [Lasix] Lasix 20 MG Lasix 20 MG 12/24/2020 12:00:00 AM EDT 1.0 {tablet} active Lasix 20 M G eCW1 ([facility]) Furosemide 40 MG Oral Tablet [Lasix] Lasix 40 MG Lasix 40 MG 12/24/2020 12:00:00 AM EDT 1.0 {tablet} active Lasix 40 M G eCW1 ([facility]) Furosemide 40 MG Oral Tablet [Lasix] Lasix 40 MG Lasix 40 MG 12/24/2020 12:00:00 AM EDT 1.0 {tablet} active Lasix 40 M G eCW1 ([facility]) Furosemide 20 MG Oral Tablet [Lasix] Lasix 20 MG Lasix 20 MG 12/24/2020 12:00:00 AM EDT 1.0 {tablet} active Lasix 20 M G eCW1 ([facility]) Furosemide 20 MG Oral Tablet [Lasix] Lasix 20 MG Lasix 20 MG 12/24/2020 12:00:00 AM EDT 1.0 {tablet} active Lasix 20 M G eCW1 ([facility]) Furosemide 20 MG Oral Tablet [Lasix] Lasix 20 MG Lasix 20 MG 12/24/2020 12:00:00 AM EDT 1.0 {tablet} active Lasix 20 M G eCW1 ([facility]) Furosemide 20 MG Oral Tablet [Lasix] Lasix 20 MG Lasix 20 MG 12/24/2020 12:00:00 AM EDT 1.0 {tablet} active Lasix 20 M G eCW1 ([facility]) Furosemide 40 MG Oral Tablet [Lasix] Lasix 40 MG Lasix 40 MG 12/24/2020 12:00:00 AM EDT 1.0 {tablet} active Lasix 40 M G eCW1 ([facility]) Furosemide 20 MG Oral Tablet [Lasix] Lasix 20 MG Lasix 20 MG 12/24/2020 12:00:00 AM EDT 1.0 {tablet} active Lasix 20 M G eCW1 ([facility]) Furosemide 20 MG Oral Tablet [Lasix] Lasix 20 MG Lasix 20 MG 12/24/2020 12:00:00 AM EDT 1.0 {tablet} active Lasix 20 M G eCW1 ([facility]) Furosemide 40 MG Oral Tablet [Lasix] Lasix 40 MG Lasix 40 MG 12/24/2020 12:00:00 AM EDT 1.0 {tablet} active Lasix 40 M G eCW1 ([facility]) Potassium Chloride CR 15 MEQ UNK 12/24/2020 12:00:00 AM EDT active Potassium Chloride CR 15 MEQ eCW1 ([facility]) Furosemide 20 MG Oral Tablet [Lasix] Lasix 20 MG Lasix 20 MG 12/24/2020 12:00:00 AM EDT 1.0 {tablet} active Lasix 20 M G eCW1 ([facility]) Furosemide 40 MG Oral Tablet [Lasix] Lasix 40 MG Lasix 40 MG 12/24/2020 12:00:00 AM EDT 1.0 {tablet} active Lasix 40 M G eCW1 ([facility]) Potassium Chloride CR 15 MEQ UNK 12/24/2020 12:00:00 AM EDT active Potassium Chloride CR 15 MEQ eCW1 ([facility]) Furosemide 20 MG Oral Tablet [Lasix] Lasix 20 MG Lasix 20 MG 12/24/2020 12:00:00 AM EDT 1.0 {tablet} active Lasix 20 M G eCW1 ([facility]) Furosemide 20 MG Oral Tablet [Lasix] Lasix 20 MG Lasix 20 MG 12/24/2020 12:00:00 AM EDT 1.0 {tablet} active Lasix 20 M G eCW1 ([facility]) Furosemide 20 MG Oral Tablet [Lasix] Lasix 20 MG Lasix 20 MG 12/24/2020 12:00:00 AM EDT 1.0 {tablet} active Lasix 20 M G eCW1 ([facility]) Furosemide 40 MG Oral Tablet [Lasix] Lasix 40 MG Lasix 40 MG 12/24/2020 12:00:00 AM EDT 1.0 {tablet} active Lasix 40 M G eCW1 ([facility]) 20 mg 12/24/2020 12:00:00 AM EDT [...] 12:00:00 AM EDT ORAL completed MED[facility] ([facility]) Melatonin 10 MG Melatonin 11/30/2020 01:00:00 AM EDT completed NETSMART ([facility]) Ferrous Sulfate 325 (65 Fe) MG Ferrous Sulfate 11/30/2020 01:00:00 AM EDT completed NETSMART ([facility]) Lidocaine Pain Relieving 4 % Lidocaine Pain Relieving 2020 01:00:00 AM EDT completed NETSMAR T ([facility]) MetFORMIN HCl ER (MOD) 500 MG MetFORMIN HCl ER (MOD) 11/30/2020 01:00:00 AM EDT 2.0 {tablet} completed N ETSMART ([facility]) Lidocaine 0.05 MG/MG Topical Ointment LIDOCAINE 11/29/2020 [...] AM E DT 1.0 {tablet} completed NETSMART ([facility]) Ferrous Sulfate 324 MG Ferrous Sulfate 11/24/2020 01:00:00 AM EDT 1.0 {tablet} completed NETSMART ([facility]) FreeStyle [place] Lite w/Device FreeStyle [place] Lite 11/24 01:00:00 AM EDT completed NETSMAR T ([facility]) Lancets 28 G Lancets 28 G 11/24/2020 01:00:00 AM EDT completed NETSMART ([facility]) Losartan Potassium-HCTZ 100-12.5 MG Losartan Potassium-HCTZ 11/24/2020 01:00:00 AM EDT 1.0 {tablet} completed N ETSMART ([facility]) Colace 100 MG Colace 11/24/2020 01:00:00 AM EDT 1.0 {tablet} completed NETSMART ([facility]) MetFORMIN HCl 500 MG MetFORMIN HCl 11/24/2020 01:00:00 AM EDT 1.0 {tablet} completed NETSMART ([facility]) Tylenol Extra Strength 500 MG Tylenol Extra Strength 11/24/2020 01:00:00 AM EDT 0 {tablet} completed NET SMART ([facility]) Tylenol PM Tylenol PM 11/24/2020 01:00:00 AM EDT 1.0 {tablet} completed NETSMART ([facility]) Ciprofloxacin 750 MG Oral Tablet Ciprofloxacin HCl 750 MG Ciprofloxacin HCl 750 MG 11/22/2020 12:00:00 AM EDT 1.0 {tablet} activ e Ciprofloxacin HCl 750 MG eCW1 ([facility]) 750 mg 11/22/2020 12:00:00 AM EDT tablet 20 TAKE ONE TABLET BY MOUTH EVERY 12 HOURS TAKE ONE TABLET BY MOUTH EVERY 12 HOURS SOLD: 11/22/2020 Vu [facility] BLOOD-GLUCOSE METER 2020 12:00:00 AM EDT kit [...] WATER TWICE A DAY SOLD: 07/24/2020 Womack Baxano Water 1000 MG/ML Irrigation Solution Sterile Water Irrigatio n Plastic Bottle 07/20/2020 12:00:00 AM EST completed MED[facility] ([facility]) 250 mg 06/04/2020 12:00:00 AM EST tablet 14 TAKE ONE TABLET BY MOUTH TWICE A DAY FOR 7 DAYS TAKE ONE TABLET BY MOUTH TWICE A DAY FOR 7 DAYS SOLD: 06/04/2020 Womack Baxano Ciprofloxacin 250 MG Oral Tablet [Cipro] Cipro 06/04/2020 12:00: 00 AM EST ORAL completed MED[facility] ([facility]) 24 HR Metformin hydrochloride 500 MG Extended [...] 12:00:00 AM EDT ORAL completed [facility] ([facility]) Ciprofloxacin 250 MG Oral Tablet Ciprofloxacin HCL 02/24/2020 12:00 :00 AM EDT ORAL completed [facility] ([facility] NITROFURANTOIN, MACROCRYSTALS 25 MG / Ni trofurantoin, Monohydrate 75 MG Oral Capsule Nitrofurantoin Monohyd Macro 02/23/2020 12:00:00 AM EDT ORAL completed [facility] ([facility]) 100 mg 06/24/2019 12:00:00 AM EST [...] party ID Covered green party's relationship to chand Policy Chand Plan Information Medicare Medicare Primary [id number] Self [id number] Medicare Medicare Primary [id number] Self [id number] Medicare Medicare Primary [id number] Self [id number] Medicare Medicare Primary [id number] Self [id number] Medicare Medicare Primary [id number] Self MEDICARE [id number] xxxxxxxxxxx [id number] Medicare Medicare Primary [id number] ..[id number] Self [id number] MEDICARE A [id number] Self [id number] [id number] Medicare Medicare Primary [id number] Self [id number] MEDICARE [id number] Janna [id number] U75 [id number] A Medicare Medicare Primary [id number] Self [id number] Medicare Medicare Primary [id number] Self [id number] BCBS EMPIRE ARASH DIV [id number] SP [id number] [facility] [id number] SP [id number] EXCELLUS BCBS [id number] Janna YLS [id number] EXCELLUS BCBS [id number] xxxxxxxxxxxx [id number] INSURANCE COVID-19 COVID Janna C OVID INSURANCE COVID-19 [id number] [id number] EMPIRE PLAN [facility] U [id number] Self [id number] ANSI-Commercial [id number] ANSI-Medicare Part B [id number] [facility] Plan [facility] Medigap Part B [id number] Self [id number] [facility] Masterson Medigap Part B [id number] Self Medicare [facility] [[email or web address] Medicare Primary [id number] Self [employer] Plan [facility] Medigap Part B [id number] Self EMPIRE BLUE CROSS BLUE SHIELD -O/P [id number] 18 [id number] MEDICARE -O/P [id number] 18 [id number] EMPIRE BLUE CROSS BLUE SHIELD -O/P [id number] 18 [id number] MEDICARE -O/P [id number] 18 [id number] [facility] [id number] SP [id number] BCBS EMPIRE ARASH DIV [id number] SP [id number] MEDICARE [id number] SP [id number] U75 EXCELLUS BLUE CROSS BLUE SHIELD HEA [id number] S [id number] MEDICARE MCA [id number] S [id number] GU75 MEDICARE MCA [id number] S [id number] GU75 [facility] [id number] SP [id number] BCBS EMPIRE ARASH DIV [id number] [employer] Plan Medigap Part B [id number] Self [id number] ANSI-Commercial [id number] ANSI-Medicare Part B [id number] ANSI-Medicare Part B [id number] ANSI-Commercial [id number] ANSI-Commercial [id number] ANSI-Medicare Part B [id number] MEDICARE [id number] SP [id number] A ANSI-Medicare Part B [id number] ANSI-Commercial [id number] ANSI-Medicare Part B [id number] ANSI-Commercial [id number] Problems, Conditions, and Diagnoses Code Display Name Description Problem Type Effective Dates Data Source(s) T81.89XA Other complications of proce dures, not elsewhere classified, initial encounter Other complications of procedures, not e lsewhere classified, initial encounter Diagnosis 04/23/2021 12:00:00 AM [facility] fol fol Diagnosis 04/18/2021 12:15:26 PM [facility] C22.0 Liver cell carcinoma Liver cell carcinoma Diagnosis 04/09/2021 12:00:00 AM [facility] new pt new pt Diagnosis 03/04/2021 12:00:00 AM [facility] N21.0 Calculus in bladder Calculus in bladder Diagnosis 1 08:25:00 AM EDT [facility] N32.81 Overactive bladder Overactive bladder Diagnosis 07/2019 08:25:00 AM EDT [facility] C22.0 Primary malignant neoplasm of liver Primary valeri gnant neoplasm of liver Problem 03/20/2021 12:00:00 AM EDT MED[facility] ([facility]) K92.2 Gastrointestinal hemorrhage Gastrointestinal hemorrhag e Problem 03/20/2021 12:00:00 AM EDT MED[facility] ([facility]) 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 Problem 03/05/20 12:00:00 AM EDT eCW1 ([facility]) C22.0 [id number] Hepatocellular carcinoma Problem 02/15/2021 12:00:00 AM EDT eCW1 ([facility]) R16.0 [id number] Liver mass, right lobe Problem 01/17/2021 12 :00:00 AM EDT eCW1 ([facility]) R18.8 [id number] Other ascites Problem 01/17/2021 12:00:00 AM EDT eCW1 ([facility]) K76.0 [id number] Fatty liver Problem 01/01/2021 12:00:00 AM E DT eCW1 ([facility]) D64.9 [id number] Chronic anemia Problem 11/28/2020 12:00:00 A M EDT eCW1 ([facility]) C61 Malignant neoplasm of prostate Malignant neoplasm of p rostate Problem 11/24/2020 01:00:00 AM EDT NETSMART ([facility] ) 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 Malignant neoplasm of ur ethra Problem 11/24/2020 01:00:00 AM EDT NETSMART ([facility] ) E11.9 Type 2 diabetes mellitus without complic ations Type 2 diabetes mellitus without complications Problem 11/24/2020 01:00:00 AM EDT NETSMART ([facility]) I10 Essential (primary) hypertension Essential (primary) h ypertension Problem 11/24/2020 01:00:00 AM EDT NETSMART ([facility] ) R78.81 Bacteremia Bacteremia Problem 11/24/2020 01:00:00 AM ED T NETSMART ([facility]) 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 Pseudomonas (aeruginosa) (mallei) (pseud omallei) as the cause of diseases classified elsewhere Problem 11/24/2020 01:00:00 A M EDT NETSMART ([facility]) K74.60 Unspecified cirrhosis of liver Unspecified cirrhosis o f liver Problem 11/24/2020 01:00:00 AM EDT NETSMART ([facility] ) D69.6 Thrombocytopenia, unspecified Thrombocytopenia, unspec ified Problem 11/24/2020 01:00:00 AM EDT NETSMART ([facility] ) Z46.6 Encounter for fitting and adjustment of urinary device Encounter for fitting and adjustment of urinary device Problem 11/24/2020 01:00:00 AM EDT NETSMART ([facility]) Z43.6 Encounter for attention to other artific ial openings of urinary tract Encounter for attention to other artificial openings of urinary tract Problem 11/24/2020 01:00:00 AM EDT NETSMART ([facility] ) Z79.84 nursing home (current) use of oral hypoglyc emic drugs nursing home (current) use of oral hypoglycemic drugs Problem 11/24/2020 01:00:00 AM EDT NE TSMART ([facility]) Z90.89 Acquired absence of other organs Acquired absenc e of other organs Problem 11/24/2020 01:00:00 AM EDT NETSMART ([facility]) Z90.79 Acquired absence of other genital organ( s) Acquired absence of other genital organ(s) Problem 11/24/2020 01:00:00 AM EDT NETSMART ([facility]) Z90.6 Acquired absence of other parts of urina ry tract Acquired absence of other parts of urinary tract Problem 11/24/2020 01:00:00 AM EDT NETSMART ([facility]) 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 Problem 11/24/2020 01:00:00 AM EDT NETSMART ([facility]) 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 Prob donita 04/20/2020 12:00:00 AM EST MED[facility] ([facility]) N32.81 Overactive bladder Overactive bladder Problem 0 12:00:00 AM EDT MED[facility] ([facility]) Surgeries/Procedures Procedure Description Date Indications Data Source(s) POCT GLUCOSE, DOCKED <td>POCT GLUCOSE, DOCKED</td ><td>Routine</td><td>04/24/2021 12:20 PM EST</td><td></td><td> </td> 04/24/2021 12:20:00 PM [facility] BLOOD COUNT COMPLETE AUTO&AUTO DIFRNTL WBC COUNT <td>C BC AND DIFFERENTIAL</td><td>Routine</td><td>04/24/2021 9:31 AM EST</td><td></td><td> </td> 04/24/2021 09:31:00 AM [facility] POCT GLUCOSE, DOCKED <td>POCT GLUCOSE, DOCKED</td ><td>Routine</td><td>04/24/2021 8:25 AM EST</td><td></td><td> </td> 04/24/2021 08:25:00 AM [facility] UPPER GI ENDOSCOPY <td>UPPER GI ENDOSCOPY</td>< td></td><td>04/24/2021 12:00 AM EST</td><td></td><td></td> 04/24/2021 12:00:00 AM [facility] GLUCOSE QUANTITATIVE BLOOD XCPT REAGENT STRIP <td>POCT GLUCOSE, DOCKED</td><td>Routine</td><td>04/23/2021 9:55 PM EST</td><td></td><td> </td> 04/23/2021 09:55:00 PM [facility] GLUCOSE QUANTITATIVE BLOOD XCPT REAGENT STRIP <td>POCT GLUCOSE, DOCKED</td><td>Routine</td><td>04/23/2021 5:28 PM EST</td><td></td><td> </td> 04/23/2021 05:28:00 PM [facility] GLUCOSE QUANTITATIVE BLOOD XCPT REAGENT STRIP <td>POCT GLUCOSE, DOCKED</td><td>Routine</td><td>04/23/2021 4:12 PM EST</td><td></td><td> </td> 04/23/2021 04:12:00 PM [facility] IR VENOGRAM ORGAN <td>IR VENOGRAM ORGAN</td><t d>Routine</td><td>04/23/2021 3:33 PM EST</td><td> Vascular varices of stoma, initial encounter Other complications of procedures, not elsewhere classified, initial enco unter</td><td> </td> 04/23/2021 03:33:00 PM EST Other complications of procedures, not e lsewhere classified, initial encounterVascular varices of stoma, initial encounter [facility] Other complications of procedures, not e lsewhere classified, initial encounter Vascular varices of stoma, initial encou nter GLUCOSE QUANTITATIVE BLOOD XCPT REAGENT STRIP <td>POCT GLUCOSE, DOCKED</td><td>Routine</td><td>04/23/2021 11:24 AM EST</td><td></td><td> </td> 04/23/2021 11:24:00 AM [facility] PROTHROMBIN TIME <td>PROTIME INR</td><td>STAT </td><td>04/23/2021 10:56 AM EST</td><td></td><td> </td> 04/23/2021 10:56:00 AM [facility] BLOOD COUNT COMPLETE AUTO&AUTO DIFRNTL WBC COUNT <td>C BC AND DIFFERENTIAL</td><td>Routine</td><td>04/23/2021 10:56 AM EST</td><td></td><td> </td> 04/23/2021 10:56:00 AM [facility] COMPREHENSIVE METABOLIC PANEL <td>COMPREHENSIVE METABO LIC PANEL</td><td>STAT</td><td>04/23/2021 10:56 AM EST</td><td></td><td> </td> 04/23/2021 10:56:00 AM [facility] POCT ID NOW COVID-19 <td>POCT ID NOW COVID-19</td ><td>Routine</td><td>04/23/2021 10:24 AM EST</td><td></td><td> </td> 04/23/2021 10:24:00 AM EST [facility] THROMBOPLASTIN TIME PARTIAL PLASMA/WHOLE BLOOD <td>PAR TIAL THROMBOPLASTIN TIME (PTT)</td><td>Routine</td><td>04/18/2021 12:01 PM EST</td><td> Hepatocellular carcinoma</td><td> </td> 04/18/2021 12:01:00 PM EST [facility] Hepatocellular carcinoma ALPHA-FETOPROTEIN SERUM <td>AFP TUMOR MARKER</td><td >Routine</td><td>04/18/2021 12:01 PM EST</td><td> Hepatocellular carcinoma</td><td> </td> 04/18/2021 12:01:00 PM EST [facility] Hepatocellular carcinoma PROTHROMBIN TIME <td>PROTIME INR</td><td>Rout ine</td><td>04/18/2021 12:01 PM EST</td><td> Hepatocellular carcinoma</td><td> </td> 04/18/2021 12:01:00 PM EST [facility] Hepatocellular carcinoma BLOOD COUNT COMPLETE AUTO&AUTO DIFRNTL WBC COUNT <td>C BC AND DIFFERENTIAL</td><td>Routine</td><td>04/18/2021 12:01 PM EST</td><td> Hepatocellular carcinoma</td><td> </td> 04/18/2021 12:01:00 PM EST [facility] Hepatocellular carcinoma LACTATE DEHYDROGENASE LDH <td>LACTATE DEHYDROGENASE</td><td>Routine</td><td>04/18/2021 12:01 PM EST</td><td> Hepatocellular carcinoma</td><td> </td> 04/18/2021 12:01:00 PM EST Hepatocellular carcinoma [facility] Hepatocellular carcinoma COMPREHENSIVE METABOLIC PANEL <td>COMPREHENSIVE METABO LIC PANEL</td><td>STAT</td><td>04/18/2021 12:01 PM EST</td><td> Hepatocellular carcinoma</td><td> </td> 04/18/2021 12:01:00 PM EST Hepatocellular carcinoma [facility] Hepatocellular carcinoma OFFICE OUTPATIENT VISIT 15 MINUTES 03/20/2021 12:00:00 AM EDT [facility] ([facility]) HOSPITAL DISCHARGE DAY MANAGEMENT > 30 MIN 03/12/2021 12:00:00 AM EDT [facility] ([facility]) [facility] HOSPITAL CARE/DAY 35 MINUTES 03/11/2021 12:00:00 AM EDT [facility] ([facility]) [facility] H[facility]ITAL CARE/DAY 15 MINUTES 02/18/2021 12:00:00 AM EDT MEDENT ([facility]) [facility]/DAY 25 MINUTES 02/17/2021 12:00:00 AM EDT MEDENT ([facility]) Electrocardiogram Interpretation & Report Only 021 12:00:00 AM EDT MEDENT ([facility]) OFFICE OUTPATIENT VISIT 15 MINUTES 02/14/2021 12:00:00 AM EDT [facility] ([facility]) OFFICE OUTPATIENT VISIT 15 MINUTES 01/22/2021 12:00:00 AM EDT [facility] ([facility]) Electrocardiogram Interpretation & Report Only 021 12:00:00 AM EDT MEDENT ([facility]) APPENDECTOMY 11/13/2020 12:00:00 AM EDT M EDENT ([facility]) Cystectomy, And Ileal Loop 11/13/2020 12:00:00 AM EDT [facility] ([facility]) ECG ROUTINE ECG W/LEAST 12 LDS W/I&R 11/07/2020 12:00: 00 AM EDT eCW1 ([facility]) INSJ TEMP NDWELLG BLADDER CATHETER SIMPLE 09/25/2020 1 2:00:00 AM EDT MED[facility] ([facility]) OFFICE OUTPATIENT VISIT 40 MINUTES 09/10/2020 12:00:00 AM EDT [facility] ([facility]) INSJ TEMP NDWELLG BLADDER CATHETER SIMPLE 08/22/2020 1 2:00:00 AM EDT [facility] ([facility]) CYSTOURETHROSCOPY 08/03/2020 12:00:00 AM EST [facility] ([facility]) OFFICE OUTPATIENT VISIT 10 MINUTES 08/03/2020 12:00:00 AM EST [facility] ([facility]) Sars-Cov-2 (Covid-19) vaccine,Pfizer, LNP-S, PF, 30 mcg/ 0.3 mL 07/29/2020 12:00:00 AM EST [facility] OFFICE OUTPATIENT VISIT 25 MINUTES 07/20/2020 12:00:00 AM EST [facility] ([facility]) Sars-Cov-2 (Covid-19) vaccine,Pfizer, LNP-S, PF, 30 mcg/ 0.3 mL 07/08/2020 12:00:00 AM EST [facility] ([facility]) INSJ TEMP NDWELLG BLADDER CATHETER SIMPLE 06/21/2020 1 2:00:00 AM EST [facility] ([facility]) US RETROPERITONEAL REAL TIME W/IMAGE LIMITED 0 12:00:00 AM EST [facility] ([facility]) US RETROPERITONEAL REAL TIME W/IMAGE LIMITED 0 12:00:00 AM EST [facility] ([facility]) OFFICE OUTPATIENT VISIT 25 MINUTES 05/30/2020 12:00:00 AM EST [facility] ([facility]) INSJ TEMP NDWELLG BLADDER CATHETER SIMPLE 05/22/2020 1 2:00:00 AM EST [facility] ([facility]) INSJ TEMP NDWELLG BLADDER CATHETER SIMPLE 04/20/2020 1 2:00:00 AM EST [facility] ([facility]) INSJ TEMP NDWELLG BLADDER CATHETER SIMPLE 03/22/2020 1 2:00:00 AM EDT [facility] ([facility]) CARLENE POST-VOIDING RESIDUAL URINE&/BLDR CAP 03/22/2020 12:00:00 AM EDT [facility] ([facility]) CARLENE POST-VOIDING RESIDUAL URINE&/BLDR CAP 03/20/2020 12:00:00 AM EDT [facility] ([facility]) CARLENE POST-VOIDING RESIDUAL URINE&/BLDR CAP 03/16/2020 12:00:00 AM EDT [facility] ([facility]) Cystourethroscopy,/W Injects For Chemodenervation Of The Geoff dder 03/02/2020 12:00:00 AM EDT [facility] ([facility] Results ID Date Data Source [id number] 04/24/2021 05:30:47 PM [facility] Name Value Range Interpretation Code Description Data Ema rce(s) Supporting Document(s) Progress Note [facility] DZTQVf5rIsEFMsZy58/XOSkbPOUlt8BsNGhnKHt2KTlqKSTtT2OhGXX0uM1zXGB9NTvEAmTvXfJpNAG2 lbm [file] CV5fBEt+No4Bd5TqhsF7hmXdOMh0OSHjEMkgIGEWDb5P ID Date Data Source [id number] 04/24/2021 05:14:53 PM EST [facility] Name Value Range Interpretation Code Description Data Ema rce(s) Supporting Document(s) Discharge Summary [facility] BCVPWc2yBkUOUwSj95/MTIkhEOYrl3RfMUxlCKr6TEpsNGGeS9DnURS8rL1hHHU7NSnKDvYjAdLoCXW9 lbm [file] RPQ/zqIzKAROuGi4Q/CONTINUOUS WASHER OPERATOR/rXwyPxp1/98Q/47ROdHUpq0H4RP1AkHKt9j5az/q/qsYltvsFMWIkw2nmG [file] NHyqYULINh1X ID Date Data Source [id number] 04/24/2021 05:06:16 PM [facility] Name Value Range Interpretation Code Description Data Ema rce(s) Supporting Document(s) Progress Note [facility] FIHMEh8rItQAMmWw18/TPJgmRPNbz3YdBHdwWQm1PTwhAFUbS5NlKHY6qN8kLNT5JTdEOnPjMpWrEXZ1 lbm [file] eoSJNtDw5SGPUES7OKBz== ID Date Data Source [id number] 04/24/2021 04:51:30 PM [facility] IR VENOGRAM ORGANFINAL RESULTInterpreted by:Eulalia Muñiz, LEVI NugentROCEDURE:1. Peristomal varices venogram by direct puncture2. 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 [employer] ultrasound imaging of the peristomal area showed [...] rce(s) Supporting Document(s) ID Date Data Source [id number] 04/24/2021 04:36:47 PM [facility] Name Value Range Interpretation Code Description Data [facility] rce(s) Supporting Document(s) Progress Note [facility] UUOVIn9oPrVKIjJg63/AAQekEPDgn0WmFSwdYWl9LNkbUKQlT4MkHQK8hM9cCOM8KKeQOnZdMhJbIUQ6 lbm EoMkvHJeWaDTKqWwqUBeBwZTddDhabiDFcGJ1AlRW2TWJgG73eNUOsPXQhV2ClMRLtCZQ+Io6YLJChzE OdCO9AEloE9B8jn1sV9EbX/gkRy5a7IxVvp6/VN/xWbhdOaouiHSZ3rUTbKvnLMeuZfllctj9BCpjEgP UxU8s6osB1kqp67SOcir5fARlR4y6+Fm307Xnj/M/6 a6wl+3LD/drRTp4Jil3w+kkGqNljK4hhkoOhmSo3u+7M4beoqDPlo2ah6KypLgXdcK2w3hlS/s3r1H9f grMoTSXiEVIaIF6S9kYgCxtZ9VjCCbbtdKiJRCMUxWN7UrGKEI2ARRmqrCNduWQ1Ydzr7ydXDL/Qri1B hULhLUHsRriGCVcfQDGM1KysyWS3+epESmiey40NBW KdQGtvAO9dXgOYcIGMUoBXNeNJlMXgCk/5plMVXhwQMIM2uFhnoF5Mxj7kmoAwWNOysD2mGvtgE9/STEPHANIA [file] CC9uBFl+Oi5Al0EagtD0htNlKXnvNiH1PK5NDUDVY4TGGt== ID Date Data Source [id number] 04/24/2021 02:14:27 PM [facility] Name Value Range Interpretation Code Description Data Ema rce(s) Supporting Document(s) [facility] BPXMVk2xVpTUFmOz65/EURegTYGgk7DvIAlfIVn8RVvjYFFgW2IiGVW5jC6bPAK6AIhOSuWxNkZvFGF1 lbm [file] HTyzKGCSKk6Y ID Date Data Source [id number] 04/24/2021 12:22:16 PM [facility] Name Value Range Interpretation Code Description Data Ema rce(s) Supporting Document(s) Glucose [Mass/volume] in Capillary blood by Glucometer 152 mg/dL 70- 140 H [facility] ID Date Data Source [id number] 04/24/2021 09:57:22 AM [facility] Name Value Range Interpretation Code Description Data Ema rce(s) Supporting Document(s) Leukocytes [#/volume] in Blood by Automated count 5.9 10*3/uL 4-10 [facility] Erythrocytes [#/volume] in Blood by Automated count 3.23 10*6/uL 4.6- 6.1 L [facility] Hemoglobin [Mass/volume] in Blood 9.2 g/dL 13.5-18 L [facility] Hematocrit [Volume Fraction] of Blood by Automated count 28.0 % 4 1-53 L [facility] Erythrocyte mean corpuscular volume [Entitic volume] by Auto mated count 86.7 fL 80-96 [facility] Erythrocyte mean corpuscular hemoglobin [Entitic mass] by Automated count 28.5 pg 27-33 [facility] Erythrocyte mean corpuscular hemoglobin concentration [Mass/volume] by Automated count 32.9 g/dL 32.0-36.0 [facility] width [Ratio] by Automated count 17.1 % 11.5-14.5 [facility] Platelets [#/volume] in Blood by Automated count 141 10*3/uL 150-400 L [facility] Differential cell count method - Blood [facility] Neutrophils/100 leukocytes in Blood by Automated count 78 % [facility] Lymphocytes/100 leukocytes in Blood by Automated count 4 % [facility] Monocytes/100 leukocytes in Blood by Automated count 11 % [facility] Eosinophils/100 leukocytes in Blood by Automated count 6 % [facility] Basophils/100 leukocytes in Blood by Automated count 1 % [facility] Neutrophils [#/volume] in Blood by Automated count 4.57 10*3/uL 1.8-7 .0 [facility] Lymphocytes [#/volume] in Blood by Automated count 0.24 10*3/uL 1.2-4 .0 L [facility] Monocytes [#/volume] in Blood by Automated count 0.64 10*3/uL 0-0.8 [facility] Eosinophils [#/volume] in Blood by Automated count 0.36 10*3/uL 0-0.5 [facility] Basophils [#/volume] in Blood by Automated count 0.05 10*3/uL 0-0.2 [facility] Nucleated erythrocytes/100 leukocytes [Ratio] in Blood by Automated count 0 /100{WBCs} 0-0 [facility] ID Date Data Source [id number] 04/24/2021 09:23:41 AM EST [facility] Name Value Range Interpretation Code Description Data Ema rce(s) Supporting Document(s) History and Physical [facility] SXSWFv1zBaUGKqCo41/FCUylTVDyy5HgRDdlDXy2QDivGMEiM5HwTDT7eA1nIPF5EKsKTjZuCpLlXVD5 lbm [file] ID Date Data Source [id number] 04/24/2021 08:27:44 AM [facility] Value Range Interpretation Code Description Data Ema rce(s) Supporting Document(s) Glucose [Mass/volume] in Capillary blood by Glucometer 141 mg/dL 70- 140 [facility] ID Date Data Source [id number] 04/23/2021 10:00:36 PM [facility] Value Range Interpretation Code Description Data Ema rce(s) Supporting Document(s) Glucose [Mass/volume] in Capillary blood by Glucometer 206 mg/dL 70- 140 [facility] ID Date Data Source [id number] 04/23/2021 09:47:13 PM [facility] Value Range Interpretation Code Description Data Ema rce(s) Supporting Document(s) Progress Note [facility] VGBBPb7bOxRPImAn75/QXAlaJKPia7TuRXleGCi0VFvqDDMqI6TiBLP1uU8gVTX7HAsQMyUxZqAzMLJm lbm [file] XSANCj4+EAlpcBXhsEopYRCZGwpyYIdQXcGaJG2YEEi= ID Date Data Source [id number] 04/23/2021 05:45:33 PM [facility] Name Value Range Interpretation Code Description Data Ema e(s) Supporting Document(s) History and Physical [facility] TIAURi1dOwTKWyQc10/GTBwlJPWtb5ZkNUmxJCk0SIurXJWwC1OsTFD4pG0zKMX7FCnNEvJbWkVlWHTg lbm [file] J/stapler coil [file] VzNfGcKD1XWg9AMhT0NVB0wMPaBk8SZEDvFEYZXiXkRN5SFBn= ID Date Data Source [id number] 04/23/2021 05:30:03 PM [facility] Name Value Range Interpretation Code Description Data Ema rce(s) Supporting Document(s) Glucose [Mass/volume] in Capillary blood by Glucometer 130 mg/dL 70- 140 [facility] ID Date Data Source [id number] 04/23/2021 04:13:48 PM [facility] Name Value Range Interpretation Code Description Data Ema rce(s) Supporting Document(s) Glucose [Mass/volume] in Capillary blood by Glucometer 126 mg/dL 70- 140 [facility] ID Date Data Source [id number] 04/23/2021 12:50:03 PM [facility] Name Value Range Interpretation Code Description Data Ema rce(s) Supporting Document(s) [facility] EZTFMa9cJkSMHuSs44/LTWekFZElk3VoHJarAFh8GIppZSAcJ5JyQVS7sU0lHUG1TLoTPmDpElQxPTQw [facility] [file] ICAgICAgICAgICAgICAgICAgICAgICAgICAgICAgICAgICAgICAgICAgICAgICAgICAgICAgICAgICAg ICAgDQogICAgICAgICAgICAgICAgICAgICAgICAgIC AgICAgICAgICAgICAgICAgICAgICAgICAgICAgICAgICAgICAgICAgICAgICAgICAgICAgICAgICAgIC AgICAgICAgICAgICAgDQogICAgICAgICAgICAgICAgICAgICAgICAgICAgICAgICAgICAgICAgICAgIC AgICAgICAgICAgICAgICAgICAgICAgICAgICAgICAg ICAgICAgICAgICAgICAgICAgICAgICAgDQogICAgICAgICAgICAgICAgICAgICAgICAgICAgICAgICAg ICAgICAgICAgICAgICAgICAgICAgICAgICAgICAgICAgICAgICAgICAgICAgICAgICAgICAgICAgICAg ICAgICAgDQogICAgICAgICAgICAgICAgICAgICAgIC AgICAgICAgICAgICAgICAgICAgICAgICAgICAgICAgICAgICAgICAgICAgICAgICAgICAgICAgICAgIC AgICAgICAgICAgICAgICAgDQogICAgICAgICAgICAgICAgICAgICAgICAgICAgICAgICAgICAgICAgIC AgICAgICAgICAgICAgICAgICAgICAgICAgICAgICAg ICAgICAgICAgICAgICAgICAgICAgICAgICAgDQogICAgICAgICAgICAgICAgICAgICAgICAgICAgICAg ICAgICAgICAgICAgICAgICAgICAgICAgICAgICAgICAgICAgICAgICAgICAgICAgICAgICAgICAgICAg ICAgICAgICAgDQogICAgICAgICAgICAgICAgICAgIC AgICAgICAgICAgICAgICAgICAgICAgICAgICAgICAgICAgICAgICAgICAgICAgICAgICAgICAgICAgIC AgICAgICAgICAgICAgICAgICAgDQogICAgICAgICAgICAgICAgICAgICAgICAgICAgICAgICAgICAgIC AgICAgICAgICAgICAgICAgICAgICAgICAgICAgICAg ICAgICAgICAgICAgICAgICAgICAgICAgICAgICAgDQogICAgICAgICAgICAgICAgICAgICAgICAgICAg ICAgICAgICAgICAgICAgICAgICAgICAgICAgICAgICAgICAgICAgICAgICAgICAgICAgICAgICAgICAg ZDTeHVFiZHYpJGRuXZe0P7raLLKsPFNmSW1sRDy1Kk 8+BBvGKqJnWNH4muVlxQ6ASD1yd4LhFCeuOHLcs6HiWRr2YC3GQYWzAYncGV7XNZmbym3VOALlCUGtxZ FVx9jkPoHcSIW1MIXpMxhyQZ9GICMoS4mxnnPxYWIbCNAAPJ0SUkZwV5YypV54QYSBXw2+DQplbmRvYm xWIeE7LOWmx8VjCEl4EC0CKAYjLdcej9YuXOTqUMPG ELxdLX8TVTB7KOM5LEFqEo5BOLZxV115ocLiPX5KUw4EJrKyWM1pah0AHKGpDPCnJwsDXrv4KDpdVQ3A pVKeVZcRmc1mzpAgkmOKu6QmctDbiXGDKZXajJfjxq2sF69gEHyjh8lzQMGGPDJalMXuWX7eLr4xWJTj JKCxPtUjUWSSQZ7YIEUuCHJqyLFsWPYzPWIYSH4GVH qwFBT0MQJerpPjoQXlMQhhQA2JWMKfifLxLEZzDEAPOAt+Ur0CBL4uh8CpKQgjIoFdXY8bys4UGHcLHo JlI6H9vOPoE7O4POmcGh0IUITdDWTcSYAmZDABLArkGW3IQI2pzzD0ZI6RtKHwVRUnCVArrTNzUNn0M7 1sqZSwSJsfHT1GFEO+Earl+Qg2SFFRjEMAnWTOuMuNm EGYVAwSaR7KsV6NKh2YbP0AhEC19kVcxsvJuYMiwCC7OOT1gMYWkIBEKYE4RkRLgnR8nroNmBNEhNPKJ YtUuG42vaJCmMPIsTUVjBQNzBu7OUYBfH1NefqLloWfnrgHnBLPpEMAIHH8QIKqlmmDhzSKplQmlRG55 mXwoUW9RKt9XMjCtCT8ptm4ZoCAlPq0WAZNtVs8GOK XpRKWaZUOwXVX1INCzNsWwAJmwEDSdCNEsEYN0MOHqZWRiEE0HFdBqPXIyHORnLcZyODNtLEJahl2SIX TrCWKbZrb3DiUuPDNsMDZdLRqoHTFeQMIiNLC4NIGbLJNhJR2GLbTnZOLkURKtUZTbRMBlVVIfhz3GAI EoRJDfBbIaLzCeEUThJMTxDMpuVVVrLEItSks2GCOn NREbJQ9YCoKeZFIqHPR6RkBkCUBlSMCwkw7ADJYsUFPdNuf2GHFhZCOhBIWpNUqgCJGsWZY5CbS6MWLk YJNtPX0WMjXmDYTbPCH3QZOnXFIuRLGaaf0HCDQfQHRgCVD2SYVcBYMmIOWsFLzfTNMtABQ5BMRrVDOa LTBeXO2ODbHoXWQdYWC9ZMWpUXMiMCUzzh9TGGUmWZ QgRoJkDEDcEBDtZOIfPTbrKMQvTZP4EUB7UDIqPMNaSD3KGhGpLOteQZVDUsy2LYuwB2j5EYPaXi4HB0 Sdo0QwSMBlHQMFKTfiJW3qneXmCZWsVn6HB0hMOnmvHWLvZoK4YYMuWxGbPWGgHNDpLbSjUsQ5IWMbMG A4ZY9jMLJ2PLVhFOx9KyJdLWPxHYD7XPF9WAHzLZGn HELeUyRdIsTrDT6REb5LNhK3WLB8xOFlVi0LSlDwNB0NALPMT2TORq== ID Date Data Source [id number] 04/23/2021 11:33:45 AM [facility] Name Value Range Interpretation Code Description Data Ema rce(s) Supporting Document(s) History and Physical [facility] FNADPd8pYxAFArWi01/DPJqaWZNql9YiTHwhKJu5ILvuKWApE5WrIFI7lH9lUDH3FLjNYbQyYkIfOZJx lbm [file] [employer]EL[employer]/KCfrtSAlCsx9K4GtrJmXqu6cqORjMxUN3nepK3 [file] DQ1nMFXQDw7+FFggiFRefMgoKWRAMoI6ZBBrXQjoUVVIDv5B ID Date Data Source [id number] 04/23/2021 11:27:27 AM [facility] Name Value Range Interpretation Code Description Data Ema rce(s) Supporting Document(s) Glucose [Mass/volume] in Capillary blood by Glucometer 142 mg/dL 70- 140 [facility] ID Date Data Source [id number] 04/23/2021 11:14:37 AM [facility] Name Value Range Interpretation Code Description Data Ema rce(s) Supporting Document(s) Leukocytes [#/volume] in Blood by Automated count 6.9 10*3/uL 4-10 [facility] Erythrocytes [#/volume] in Blood by Automated count 3.50 10*6/uL 4.6- 6.1 L [facility] Hemoglobin [Mass/volume] in Blood 10.0 g/dL 13.5-18 L [facility] Hematocrit [Volume Fraction] of Blood by Automated count 30.1 % 4 1-53 L [facility] Erythrocyte mean corpuscular volume [Entitic volume] by Auto mated count 85.9 fL 80-96 [facility] Erythrocyte mean corpuscular hemoglobin [Entitic mass] by Automated count 28.6 pg 27-33 [facility] Erythrocyte mean corpuscular hemoglobin concentration [Mass/volume] by Automated count 33.3 g/dL 32.0-36.0 [facility] [Ratio] by Automated count 16.9 % 11.5-14.5 H [facility] Platelets [#/volume] in Blood by Automated count 174 10*3/uL 150-400 [facility] Differential cell count method - Blood [facility] Neutrophils/100 leukocytes in Blood by Automated count 77 % [facility] Lymphocytes/100 leukocytes in Blood by Automated count 4 % [facility] Monocytes/100 leukocytes in Blood by Automated count 9 % [facility] Eosinophils/100 leukocytes in Blood by Automated count 9 % [facility] Basophils/100 leukocytes in Blood by Automated count 1 % [facility] Neutrophils [#/volume] in Blood by Automated count 5.29 10*3/uL 1.8-7 .0 [facility] Lymphocytes [#/volume] in Blood by Automated count 0.30 10*3/uL 1.2-4 .0 L [facility] Monocytes [#/volume] in Blood by Automated count 0.61 10*3/uL 0-0.8 [facility] Eosinophils [#/volume] in Blood by Automated count 0.60 10*3/uL 0-0.5 H [facility] Basophils [#/volume] in Blood by Automated count 0.09 10*3/uL 0-0.2 [facility] Nucleated erythrocytes/100 leukocytes [Ratio] in Blood by Automated count 0 /100{WBCs} 0-0 [facility] ID Date Data Source [id number] 04/23/2021 11:23:05 AM [facility] Name Value Range Interpretation Code Description Data Ema rce(s) Supporting Document(s) Prothrombin time (PT) 14.4 s 11.6-14.0 H [facility] INR in Platelet poor plasma by Coagulation assay 1.16 [facility] Routine intensity oral anticoagulation I NR is typically 2.0-3.0. Target INR must be clinically individualized. ID Date Data Source [id number] 04/23/2021 11:33:46 AM [facility] Value Range Interpretation Code Description Data Ema rce(s) Supporting Document(s) Albumin [Mass/volume] in Serum or Plasma by Bromocresol green (BCG) dye binding method 3.2 g/dL 3.5-5.2 [facility] Bilirubin.total [Mass/volume] in Serum or Plasma 1.3 mg/dL <1.2 H [facility] Calcium [Mass/volume] in Serum or Plasma 10.5 mg/dL 8.8-10.2 H [facility] Chloride [Moles/volume] in Serum or Plasma 104 mmol/L 98-107 [facility] Creatinine [Mass/volume] in Serum or Plasma 1.24 mg/dL 0.70-1.20 H [facility] Glucose [Mass/volume] in Serum or Plasma 146 mg/dL 70-140 [facility] Alkaline phosphatase [Enzymatic activity/volume] in Serum or Plasma 200 U/L 40-129 [facility] Potassium [Moles/volume] in Serum or Plasma 4.4 mmol/L 3.4-5.1 [facility] Protein [Mass/volume] in Serum or Plasma 7.1 g/dL 6.4-8.3 [facility] Sodium [Moles/volume] in Serum or Plasma 132 mmol/L 136-145 L [facility] Aspartate aminotransferase [Enzymatic activity/volume] in Serum or Plasma 124 U/L <40 [facility] Urea nitrogen [Mass/volume] in Serum or Plasma 35 mg/dL 8-23 H [facility] Osmolality of Serum or Plasma by calculation 285 mosm/kg 275-300 [facility] Creatinine/Urea nitrogen [Mass Ratio] in Serum or Plasma 28 [facility] Bicarbonate [Moles/volume] in Serum 17 mmol/L 22-29 L [facility] Alanine aminotransferase [Enzymatic activity/volume] in Seru m or Plasma 114 U/L <41 H [facility] Anion gap 3 in Serum or Plasma 11 mmol/L 8-15 [facility] Glomerular filtration rate/1.73 sq M pre dicted among non-blacks [Volume Rate/Area] in Serum or Plasma by Creatinine-based formula (MDRD) 54 mL/min/1.73m2 >60 L [facility] Glomerular filtration rate/1.73 sq M pre dicted among blacks [Volume Rate/Area] in Serum or Plasma by Creatinine-based formula (MDRD) 62 mL/min/1.73m2 >60 [facility] ID Date Data Source [id number] 04/23/2021 10:36:15 AM [facility] Name Value Range Interpretation Code Description Data Ema rce(s) Supporting Document(s) SARS coronavirus [address] [facility] Test performed using the [employer] ID NOW C OVID-19 assay. This test is only for use under the Food and Drug Administration's Emergency Use Authorization. 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 [facility] Patient has symptoms related to [facility] When did you start to experience these symptoms [Date and time] [Phen X] [facility] Patient was hospitalized because of this condition [facility] patient was admitted to ICU for [facility] Patient resides in a congregate care setting [facility] status [facility] ID Date Data Source [id number] 04/23/2021 10:24:00 AM EST [facility] Name Value Range Interpretation Code Description Data Ema rce(s) Supporting Document(s) SARS coronavirus 2 RdRp gene Negative N [facility] This lab was ordered by [facility] and reported by [facility]. ID Date Data Source [id number] 04/21/2021 07:56:28 PM EST [facility] Name Value Range Interpretation Code Description Data Ema rce(s) Supporting Document(s) Progress Note [facility] JARXSh4dKvYQHfLo00/MXRbzOXNkr3IwANibHZy0WCcqUGHfN8FcYNP9jL0qZVV3CXwXDwBnXoHsHYAp lbm [file] F9kuVnYGebIQJeGP3JDULYD8RKZb== ID Date Data Source [id number] 04/21/2021 07:56:23 PM [facility] Name Value Range Interpretation Code Description Data Ema rce(s) Supporting Document(s) Progress Note [facility] MBJPMw9uOuCMFxQb97/KREpwNLZth3UsDOvzAQg4AKmrKVVyI9UaLNO7nM7bDIP6WGqYWbTrEzBxFWHr lbm [file] AgICAgICAgICAgICAgICAgICAgICAgICAgICAgICAgICAgICAgICAgICAgICAgICAgICAgICAgICAgIC AgICAgICAgICAgICAgICAgICAgICAgICANCiAgICAgICAgICAgICAgICAgICAgICAgICAgICAgICAgIC AgICAgICAgICAgICAgICAgICAgICAgICAgICAgICAg ICAgICAgICAgICAgICAgICAgICAgICAgICAgICAgICAgICANCiAgICAgICAgICAgICAgICAgICAgICAg ICAgICAgICAgICAgICAgICAgICAgICAgICAgICAgICAgICAgICAgICAgICAgICAgICAgICAgICAgICAg ICAgICAgICAgICAgICAgICANCiAgICAgICAgICAgIC AgICAgICAgICAgICAgICAgICAgICAgICAgICAgICAgICAgICAgICAgICAgICAgICAgICAgICAgICAgIC AgICAgICAgICAgICAgICAgICAgICAgICAgICANCiAgICAgICAgICAgICAgICAgICAgICAgICAgICAgIC AgICAgICAgICAgICAgICAgICAgICAgICAgICAgICAg ICAgICAgICAgICAgICAgICAgICAgICAgICAgICAgICAgICAgICANCiAgICAgICAgICAgICAgICAgICAg ICAgICAgICAgICAgICAgICAgICAgICAgICAgICAgICAgICAgICAgICAgICAgICAgICAgICAgICAgICAg ICAgICAgICAgICAgICAgICAgICANCiAgICAgICAgIC AgICAgICAgICAgICAgICAgICAgICAgICAgICAgICAgICAgICAgICAgICAgICAgICAgICAgICAgICAgIC AgICAgICAgICAgICAgICAgICAgICAgICAgICAgICANCiAgICAgICAgICAgICAgICAgICAgICAgICAgIC AgICAgICAgICAgICAgICAgICAgICAgICAgICAgICAg ICAgICAgICAgICAgICAgICAgICAgICAgICAgICAgICAgICAgICAgICANCiAgICAgICAgICAgICAgICAg ICAgICAgICAgICAgICAgICAgICAgICAgICAgICAgICAgICAgICAgICAgICAgICAgICAgICAgICAgICAg ICAgICAgICAgICAgICAgICAgICAgICANCiAgICAgIC AgICAgICAgICAgICAgICAgICAgICAgICAgICAgICAgICAgICAgICAgICAgICAgICAgICAgICAgICAgIC AgICAgICAgICAgICAgICAgICAgICAgICAgICAgICAgICANCjw/mGNrO3lmyVZnktT4B8rsIz8XIx6PEM 6uf8OjALSgWQlxdpUsUlaFErTgKVBsMupJWtp8ENql PF8YsNZmP7EbU8ReSGawSB2DTRMlJYSogDVqYAJyFDQsIjC7GKNhLYbzEB7IdOMxBQawQOYzBRYwSJYf ETTaJJZcISARPOTmQHBpHdUqIMNnXXBhBQVxUHMQFH7LKuKvB0MqhO28KPTIQp9+DQplbmRvYmoNCjMz ROZqe9FlORp9SA1ORHGcPpqho7WpAwUiZIECNOofKA 2SYGX9MGW8PODhOc7XABEiC697uiLgDK2RFz4AUaZhXR8nie1JTxRoNEDnMkoNNit1ZWglXS7AtFWxJG vXji5bimUtyvFJj6VhewNnqKTQDAIbapXcDYppT1irb82zshasDBSaXJMkCNViZTnhCfNzCRKgBDuaTG QIFDkATqBmE1Ske6DnHmG0CGZtWbJmRDnfXQZbRzT6 MH74sDliDX6KXXUuZDLnBN51DJWpVAFpFv5NZu6ZRiKvXJ1ucu8MZiSvYF8qgt4UOXyRNqOeK3P0wWEd H0Srkm23ZT1FpPS6gTHnBS0ApB1tAS8Rk8RqDVNaXpNnUDIcPFXnSEFxHXEyTiWfBR4ZSKOxJjIrfNDx VOSbGSS9KIRdAuG6CEBqGB3QBQByVHR4PY5DXH0SVy omP2WBJFodoAeqEoXMQIO/EUTFBOREQCzrRASjN77WP5HLCAxOQnotSPdGBuugCd1vATd+Ar8KJH5jy4 NiSIhiWGGxQZ1tea7JNZbZSjEwN7R8fIQwQ6S4SBzfLl8KKBFmPWCpNlWiYICVRFvnPF7OPX8mmqC5OX 4NqYVlTUItCRCwzDTiWHi8X83wgYEjHXgmHE7XOQD+ Earl+Og8YEHRkWSMjACMjQgFsEFASDwDvB0GgS6GKs2NoY2EfET17xQndloGfFOdtXH3PAH6dSNGjSDHV TV0XqMQneH2thsUlBvCpFDMYRhDiF83orHXfTJNqWVRhDQBrBu5XEDTxC2HmbuPhyNimopCjSXQnEKBY ZW3YYFuyymFhcNQotMlvKL23cTyyJI3RPt5VMqLaFA 0vxm3AzSXeSm5ZKAMvGz4GMKLiHNIvRMNaAPD8QTMvErYwXBtnYWNtPGHgXSY2LSQyHWKgRL3YYbUqQH JxIoL9UHBfNKWkCOMmfz8ODYFkLLPrKVYdBjLvWDEbKNFdSVumDGNuBKAmUDC3MTFcTDFrMD8UApHgWA PwKWR4TJDaAQDaBHRcot1QTROeUYUtIFc5WtAuIREl KTAoZWmrCDRvRAP7FTH2GIDiQXWoCL4MKiEzJWCgNEezBLqdPWCbYXBgfo2GWJTwQSDnKdEfHmWhOCIe XCMaOVnaWVPrCXX6QML2UZOoAOMaSY7RJiTwLXLsNIFgPPFpZCKzMTWcpy2ABCXwHIFnRcjsRYCbFTKp NRBnXQycTFRnBTLwCRO8APXgGHAaYX8HPpCeBJSbVE VrQLMgUSKnITFptl4PBCKdEPDdEHF3EqUbFEJfOTDoGUwiYIVwZBI8SBE9LVYrQTJzEB1BRxKbFCDaFE xsNkYzKOZrGDNfqd7NQWCaPQQvVAK1QQFrZUYoCZYvGLktKSYfKWA8KIjmNJLcXIRsZZ9IRdKuJELsLY r3EpIxNOQzPVXpzs6SXUQvJGEnBUXfYVNkROHrCLHo XJlzGZLvRSX2XID1ALKeWHMdPC4GOaJuIUFbJgXqYjXrKTUqRCKjii8ZHZMrWYYqYGF9OAQwLHRdQOTx AZuqOJYlWPTkVsq1SNAcQYVkDL7LQcYcKQSuOcA5GXioJPLsILOeje3UFSTuZUNsKnOgMHNoFBAjZXYl HThzBDPqEOCjYgy7UYKeIXSqAD6SZeKgCPSaNuQyNi esRGSfIVCdbi6KZKZzJXIgAcEwYNPeJYXxAMRnPFhkJMZoWNHrCzdjVFOsHAEtTX8UMsVlOGKvIdOfHX cmJQKcBYMtxd4XIUVuMJRzRQS6HPMcZZVpLSIoOMqzGWQpMFL7NnOgRYAuASEoLR9PNrHiZNCzHxB7Rh lmAQZcYXCvzf5DaRSxqAzdps0TCFgGNe8YiDalTMR7 KNpcMd1hdYQlWUJdCTKZOq7GzdWgZIPlLUMVGRjuLNZwECQbBBUyAJsqKfQ4PfqbVcA3CWHoHILhMBw3 BTXlDYw4NzD3GBKtLfFfB3ZtAGMiZ3PrKrs5ShCdXvN5TMDpXWR4BLh+ZW9mUSb+Rc5Cr7CjnxO3mvEy TPrqUdLbJe1RSLTPO3CBDo== ID Date Data Source [id number] 04/21/2021 08:25:23 AM EST [facility] Name Value Range Interpretation Code Description Data Ema rce(s) Supporting Document(s) Progress Note [facility] QXAJUa2pFsVWTwUw09/JOWbtOEEgh0EgEKtyDJc3SUomCKQdU2UpBUH9rM4xWIU2PNmIEgSyFqVsOZGg lbm PgIciCOoWvMQOjAjvAMqFuQKjpPqfefDPcNE9HbNW8KXOhC47rZARsWACoD5BrUBC3CZG+Iz5GGVBxlI LoNB9IKnzO5W0oq4sEPj1lfK2JsAAO3qUmHV9zWHU8lOHjkr90dnzMaW/QMg9yrOGCE8heG52+Pato+Y/k [file] ICAgICAgICAgICAgICAgICAgICAgICAgICAgICAgIC OtHMAxGIBdOCQxMVBpFVJlGPKdURUrYOCqPSZqFXOtBNJbMLFbHMHpEUEcBXKpSLSoLXFnYE8YATRiXH AgICAgICAgICAgICAgICAgICAgICAgICAgICAgICAgICAgICAgICAgICAgICAgICAgICAgICAgICAgIC AgICAgICAgICAgICAgICAgICAgICAgICAgICAgICAg GFHpKU9HRXEbARIiQCOqSSMpEGNbAXQoYIMdOQWiOTBiNRGjFGAgUQDoLRUhMFOtQLGeTBPkXUFbISHg NVExGAPtANUeXUIrLRMsJCDePEVvSUKgTECzWYQsEWWpDBKlVQZdYGXwYDSmCL3ZBIRqRIBiESXwGOMb ICAgICAgICAgICAgICAgICAgICAgICAgICAgICAgIC PtQIDxLKNfQUDhYYWpICEwFRVzHDRgLUXiGPShRRZdXVHlZYRoGMFfJZVgPUIjPOTzEEUeOZXrYO3GWX AgICAgICAgICAgICAgICAgICAgICAgICAgICAgICAgICAgICAgICAgICAgICAgICAgICAgICAgICAgIC AgICAgICAgICAgICAgICAgICAgICAgICAgICAgICAg NURsBYBuYE4LAVRnFXEkDANfMYMqIIHxEODhJFTvBZYcWQKgRRJnDHIkVWGjAYVdBUBgZCBrKFIwFVJa DGHpDRSgUIRxSXDuWNGnABXcOXAkGZRtHFEuEFHrBZPoKXZfJTKrUEWvJVZlLAYnWN9TKXDvCXZdIIIz ICAgICAgICAgICAgICAgICAgICAgICAgICAgICAgIC AgICAgICAgICAgICAgICAgICAgICAgICAgICAgICAgICAgICAgICAgICAgICAgICAgICAgICAgICAgIA 0KICAgICAgICAgICAgICAgICAgICAgICAgICAgICAgICAgICAgICAgICAgICAgICAgICAgICAgICAgIC AgICAgICAgICAgICAgICAgICAgICAgICAgICAgICAg PIEdMMGzPHBlDT0IATXcWTDwYBMtDYRlCJPxFMNcQKLvVXFuXJGxJSXkCPOzNXLoIAJxRQIhYVTrHBMe AHQuMELwVIKiNYStXWMrVLZcNVAgJPXxJELyTJXuQGIgRRJzAJPpXTWoYTJrWHThSLPnAJ9SSF66aPFl h7W6CBThTU4lijy/Ys0IFIskzqVyoSFnJE8LRgXcTY 0hyx8GSeCuJH3yba1GCEtMFjQiL8K2lBNwXFHzZLNQFcHzJ64uFEwyDr62EDstVQCaXcDbJFv9Pp6VQb ZyV1jeKGZyIyC7HAPjQoJ0WNEeYcY9TELmJzFtPAAmGVPtZW8FLECoB034tlArXB7XGw5DAjPhYQ6zoi 3IWoKcRFYaEtmGCph3ISaeHZ7LeRCioZHaIcEqPORM HtJvO0jkw3RrMzSzLOYXEMpmVJ1Da7KboJGeLTm+Pq7RCV6zv7EvRIndJqRbZY7mhf9EIAnDWeUuT7Fv pFqiPGBoi4gqJLYoRY7jlLEcKMP9GZkcpPF2uJyceeAOp9WnyCVxbVlnIZ8KDXN6PHJmAbH9UtHyUmFh IAA5WUNkDQ2qEIgeRM9YVIR9XLvnANIhFXNxJ4sCVi QhAGF3QgQcsOklHX6LHhVaQ2GdhuTngICpIDImNTJLMg0+TZfligHvGhcIZvX8MEFcz9EcCBr2XS2EYT TgWTioPL6EAXOprK5eQEynJQ2LQkGtXnZvBARXCiUjE38hqWTvCVk1D7CwLdOtBGIbXfchSKEfIOmqDi FtZXMgWyBdDQogID4+ID4+GQmpCQ7QUGleevYdHJXz Tk7NCBEoDRDqMS9aWIWuUBQeV2A5qWbnPYBCBlWvB9xeknbhWF2cWEBfC127cMuqkkBdGSO2SCBeMt5Y RKItORD5BDSobRStZiSsNMDDFDzwXD7KsULtZNX7oM1iWGqrTLViSZEcT9rTHpDbmCamEQ77nPaoqaGz bCBdDQo+Gs4GGN5tr6NrRXs0wgVyYHqxRQJ1HNgxAP GmWRBkHBDjBZB6NZJ2HEQALoOkQJNoMUGfDMzoVYPaOPVdon9CELIdBOUhNGL9PtOkYHDhAKRyFBdzAE VgZPJfDNSzXXOpFWPkJL3ETpXgJWVoVURwHLffORKgBBGibi9MNKUnDRLoYYW5UOVxIQPkOOOcXHfzAA SfCYR2XpH7NJPgEEQiOR7PEnWqMLDpMQmiHiExQTGm MGIvia9OYATnLYZeNpT6MNQvPYKfGTUuSCrwOVIhBOXdPKG0YDHqSNAcCJ5YUbSmUOEiQDMwDMXaNUYw VGQokf5TXLQzKQCqFZO0OzBhXPBcLGQnZWtwQTNlLXZ0RqgjNYYaKGKyMS7RLjFzVSRcCKXaIgDeMPPn NAEmet6XQAPkWJHqBGXzMNDoENPhZZImZBbxEQRdPV T2MmIaAGBePJQnBN6GWqTfSIKfRES4RxHuVRVzXDAxkf5CSOVzLPZzFjp7IsSgNKKdVQRfYRfnOUEhHX X4BQJbFTUkOJQtET5SYvLoXQCpVpynHPBbNRGyPAPryw2QXKKaNYLhPAqrCuQxJJYqVLFlOYdnTWVnUK F7XXO1SRNpGKFmWS3SGpGcAZBeDqedRoUsKGKiTHFk qw5JAGWcQOGoBDBmSMYuEGTiFWCrSZvsBPVeUXL8OfOfASKqDCWvDC6XEqFxRGSbScHmNzojRQJsRVFo kx0TMXWyNGDhADR3CSFnQJJqHOLdMJthXLTmYUYqQLZ8TECtRCEjMM7OPlCqQOvhOSCXUqb0VGigH7t6 UTIpAT6ZW7Ttj7GlAivpAYFTOJlzQD5zspYhCTJqDw 1JP7sCWrycY7JoVKe7CcG0SIX8VvDuDpG7KQJpA7E0N3RbIIVoUC4kUAQnNIXtUUNuWLasFpDzHRN5Wf G6SOQbQsbxTGN1WJT8SgZuQP0FNl9JYyN8VYW9iLBuNv3PDmB2NToJVfDoKF7NKCy= ID Date Data Source [id number] 04/19/2021 03:29:00 PM EST [facility] Name Value Range Interpretation Code Description Data Ema rce(s) Supporting Document(s) SARS coronavirus 2 RNA [Presence] in Res piratory specimen by JUSTEN with probe detection NEGATIVE [facility] This lab was ordered by [facility] a nd reported by [facility]. ID Date Data Source [id number] 04/18/2021 12:14:32 PM [facility] Name Value Range Interpretation Code Description Data Ema rce(s) Supporting Document(s) Leukocytes [#/volume] in Blood by Automated count 4.4 10*3/uL 4-10 [facility] Erythrocytes [#/volume] in Blood by Automated count 3.04 10*6/uL 4.6- 6.1 L [facility] Hemoglobin [Mass/volume] in Blood 8.3 g/dL 13.5-18 L [facility] Hematocrit [Volume Fraction] of Blood by Automated count 25.4 % 4 1-53 L [facility] Erythrocyte mean corpuscular volume [Entitic volume] by Auto mated count 83.6 fL 80-96 [facility] Erythrocyte mean corpuscular hemoglobin [Entitic mass] by Automated count 27.3 pg 27-33 [facility] Erythrocyte mean corpuscular hemoglobin concentration [Mass/volume] by Automated count 32.6 g/dL [facility].0[facility] width [Ratio] by Automated count 16.4 % 11.5-14.5 H [facility] Platelets [#/volume] in Blood by Automated count 192 10*3/uL 150-400 [facility] Differential cell count method - Blood [facility] Neutrophils/100 leukocytes in Blood by Automated count 71 % [facility] Lymphocytes/100 leukocytes in Blood by Automated count 7 % [facility] Monocytes/100 leukocytes in Blood by Automated count 11 % [facility] Eosinophils/100 leukocytes in Blood by Automated count 9 % [facility] Basophils/100 leukocytes in Blood by Automated count 2 % [facility] Neutrophils [#/volume] in Blood by Automated count 3.16 10*3/uL 1.8-7 .0 [facility] Lymphocytes [#/volume] in Blood by Automated count 0.30 10*3/uL 1.2-4 .0 L [facility] Monocytes [#/volume] in Blood by Automated count 0.47 10*3/uL 0-0.8 [facility] Eosinophils [#/volume] in Blood by Automated count 0.39 10*3/uL 0-0.5 [facility] Basophils [#/volume] in Blood by Automated count 0.06 10*3/uL 0-0.2 [facility] Nucleated erythrocytes/100 leukocytes [Ratio] in Blood by Automated count 0 /100{WBCs} 0-0 [facility] ID Date Data Source [id number] 04/18/2021 12:24:00 PM [facility] Value Range Interpretation Code Description Data Ema rce(s) Supporting Document(s) Prothrombin time (PT) 13.8 s 11.6-14.0 [facility] INR in Platelet poor plasma by Coagulation assay 1.11 [facility] Routine intensity oral anticoagulation I NR is typically 2.0-3.0. Target INR must be clinically individualized. ID Date Data Source [id number] 04/18/2021 12:24:00 PM [facility] Value Range Interpretation Code Description Data Ema rce(s) Supporting Document(s) aPTT in Platelet poor plasma by Coagulation assay 31.0 s 24.0-33. 0 [facility] [facility] ID Date Data Source [id number] 04/18/2021 12:52:55 PM [facility] Value Range Interpretation Code Description Data Eam rce(s) Supporting Document(s) Albumin [Mass/volume] in Serum or Plasma by Bromocresol green (BCG) dye binding method 3.2 g/dL 3.5-5.2 [facility] Bil[facility].total [Mass/volume] in Serum or Plasma 0.5 mg/dL <1.2 [facility] Calcium [Mass/volume] in Serum or Plasma 10.7 mg/dL 8.8-10.2 H [facility] Chloride [Moles/volume] in Serum or Plasma 101 mmol/L 98-107 [facility] Creatinine [Mass/volume] in Serum or Plasma 1.47 mg/dL 0.70-1.20 H [facility] Glucose [Mass/volume] in Serum or Plasma 175 mg/dL 70-140 H [facility] Alkaline phosphatase [Enzymatic activity/volume] in Serum or Plasma 182 U/L 40-129 H [facility] Potassium [Moles/volume] in Serum or Plasma 4.9 mmol/L 3.4-5.1 [facility] Protein [Mass/volume] in Serum or Plasma 6.9 g/dL 6.4-8.3 [facility] Sodium [Moles/volume] in Serum or Plasma 131 mmol/L 136-145 L [facility] Aspartate aminotransferase [Enzymatic activity/volume] in Serum or Plasma 92 U/L <40 H [facility] Urea nitrogen [Mass/volume] in Serum or Plasma 37 mg/dL 8-23 H [facility] Osmolality of Serum or Plasma by calculation 285 mosm/kg 275-300 [facility] Creatinine/Urea nitrogen [Mass Ratio] in Serum or Plasma 25 [facility] Bicarbonate [Moles/volume] in Serum 20 mmol/L 22-29 L [facility] Alanine aminotransferase [Enzymatic activity/volume] in Seru m or Plasma 83 U/L <41 H [facility] Anion gap 3 in Serum or Plasma 10 mmol/L 8-15 [facility] Glomerular filtration rate/1.73 sq M pre dicted among non-blacks [Volume Rate/Area] in Serum or Plasma by Creatinine-based formula (MDRD) 44 mL/min/1.73m2 >60 L [facility] Glomerular filtration rate/1.73 sq M pre dicted among blacks [Volume Rate/Area] in Serum or Plasma by Creatinine-based formula (MDRD) 51 mL/min/1.73m2 >60 L [facility] ID Date Data Source [id number] 04/18/2021 12:52:55 PM [facility] Name Value Range Interpretation Code Description Data Ema rce(s) Supporting Document(s) Rbtal-0-Nuxwmhslcgb [Mass/volume] in Serum or Plasma 52 ng/mL <9 H [facility] ID Date Data Source [id number] 04/18/2021 02:25:11 PM [facility] Name Value Range Interpretation Code Description Data Ema rce(s) Supporting Document(s) Lactate dehydrogenase [Enzymatic activit y/volume] in Serum or Plasma by Lactate to pyruvate reaction 230 U/L 122-225 H [facility] ID Date Data Source [id number] 04/14/2021 08:37:38 AM [facility] IR VISCERAL ARTERIOGRAMFINAL RESULTInter preted by:Eulalia Muñiz [...] tract. Through the AccuStick sheath, a 4 Arabic Kumpe catheter was introduced into the splenic [...] rce(s) Supporting Document(s) ID Date Data Source [id number] 04/13/2021 03:33:00 PM EST [facility] Name Value Range Interpretation Code Description Data Ema rce(s) Supporting Document(s) SARS coronavirus 2 RNA [Presence] in Res piratory specimen by JUSTEN with probe detection NEGATIVE [facility] This lab was ordered by [facility] a nd reported by [facility]. ID Date Data Source [id number] 04/12/2021 12:02:55 PM EST [facility] Name Value Range Interpretation Code Description Data Ema rce(s) Supporting Document(s) Progress Note [facility] GTSBNh7aVbXYFaZv25/VTJtnDYMmz8ZdCOwhBZs4KIduQXCuV8QlCEX4rH9sRPT5VZdDNrRsNcYlAKQs lbm [file] [id number]== ID Date Data Source [id number] 04/09/2021 08:41:20 AM [facility] Name Value Range Interpretation Code Description Data Ema rce(s) Supporting Document(s) History and Physical [facility] GUVFTi8fAtZGAyCx80/JORbyUPJmj1EgSUpwBXp3IVtpYRNjU2DvJQQ0wT1xYIY1RWxSBhLaXpWpMFY0 lbm [file] ceRpP6Q0T5L/financial aid counselor+W//[id number] [file] ID Date Data Source [id number] 04/09/2021 08:22:57 AM [facility] Name Value Range Interpretation Code Description Data Ema rce(s) Supporting Document(s) Leukocytes [#/volume] in Blood by Automated count 3.9 10*3/uL 4-10 L [facility] Erythrocytes [#/volume] in Blood by Automated count 2.94 10*6/uL 4.6- 6.1 L [facility] Hemoglobin [Mass/volume] in Blood 8.3 g/dL 13.5-18 L [facility] Hematocrit [Volume Fraction] of Blood by Automated count 24.7 % 4 1-53 L [facility] Erythrocyte mean corpuscular volume [Entitic volume] by Auto mated count 84.2 fL 80-96 [facility] Erythrocyte mean corpuscular hemoglobin [Entitic mass] by Automated count 28.1 pg 27-33 [facility] Erythrocyte mean corpuscular hemoglobin concentration [Mass/volume] by Automated count 33.4 g/dL 32.0-36.0 [facility] E[facility]th[facility] distribution width [Ratio] by Automated count 16.4 % 11.5-14.5 H [facility] Platelets [#/volume] in Blood by Automated count 133 10*3/uL 150-400 L [facility] Differential cell count method - Blood [facility] Neutrophils/100 leukocytes in Blood by Automated count 75 % [facility] Lymphocytes/100 leukocytes in Blood by Automated count 7 % [facility] Monocytes/100 leukocytes in Blood by Automated count 10 % [facility] Eosinophils/100 leukocytes in Blood by Automated count 6 % [facility] Basophils/100 leukocytes in Blood by Automated count 2 % [facility] Neutrophils [#/volume] in Blood by Automated count 3.00 10*3/uL 1.8-7 .0 [facility] Lymphocytes [#/volume] in Blood by Automated count 0.26 10*3/uL 1.2-4 .0 L [facility] Monocytes [#/volume] in Blood by Automated count 0.39 10*3/uL 0-0.8 [facility] Eosinophils [#/volume] in Blood by Automated count 0.24 10*3/uL 0-0.5 [facility] Basophils [#/volume] in Blood by Automated count 0.06 10*3/uL 0-0.2 [facility] Nucleated erythrocytes/100 leukocytes [Ratio] in Blood by Automated count 0 /100{WBCs} 0-0 [facility] ID Date Data Source [id number] 04/09/2021 08:38:37 AM [facility] Value Range Interpretation Code Description Data Ema rce(s) Supporting Document(s) Prothrombin time (PT) 14.9 s 11.6-14.0 H [facility] INR in Platelet poor plasma by Coagulation assay 1.21 [facility] Routine intensity oral anticoagulation I NR is typically 2.0-3.0. Target INR must be clinically individualized. ID Date Data Source [id number] 04/09/2021 08:43:53 AM [facility] Value Range Interpretation Code Description Data Ema rce(s) Supporting Document(s) Albumin [Mass/volume] in Serum or Plasma by Bromocresol green (BCG) dye binding method 3.0 g/dL 3.5-5.2 [facility] Bilirubin.total [Mass/volume] in Serum or Plasma 0.5 mg/dL <1.2 [facility] Calcium [Mass/volume] in Serum or Plasma 10.7 mg/dL 8.8-10.2 H [facility] Chloride [Moles/volume] in Serum or Plasma 102 mmol/L 98-107 [facility] Creatinine [Mass/volume] in Serum or Plasma 1.50 mg/dL 0.70-1.20 H [facility] Glucose [Mass/volume] in Serum or Plasma 114 mg/dL 70-140 [facility] Alkaline phosphatase [Enzymatic activity/volume] in Serum or Plasma 181 U/L 40-129 H [facility] Potassium [Moles/volume] in Serum or Plasma 4.9 mmol/L 3.4-5.1 [facility] Protein [Mass/volume] in Serum or Plasma 7.4 g/dL 6.4-8.3 [facility] Sodium [Moles/volume] in Serum or Plasma 130 mmol/L 136-145 L [facility] Aspartate aminotransferase [Enzymatic activity/volume] in Serum or Plasma 90 U/L <40 H [facility] Urea nitrogen [Mass/volume] in Serum or Plasma 55 mg/dL 8-23 H [facility] Osmolality of Serum or Plasma by calculation 286 mosm/kg 275-300 [facility] Creatinine/Urea nitrogen [Mass Ratio] in Serum or Plasma 37 [facility] Bicarbonate [Moles/volume] in Serum 15 mmol/L 22-29 L [facility] Alanine aminotransferase [Enzymatic activity/volume] in Seru m or Plasma 66 U/L <41 H [facility] Anion gap 3 in Serum or Plasma 13 mmol/L 8-15 [facility] Glomerular filtration rate/1.73 sq M pre dicted among non-blacks [Volume Rate/Area] in Serum or Plasma by Creatinine-based formula (MDRD) 43 mL/min/1.73m2 >60 L [facility] Glomerular filtration rate/1.73 sq M pre dicted among blacks [Volume Rate/Area] in Serum or Plasma by Creatinine-based formula (MDRD) 49 mL/min/1.73m2 >60 L [facility] ID Date Data Source [id number] 04/09/2021 07:41:57 AM EST [facility] Name Value Range Interpretation Code Description Data Ema rce(s) Supporting Document(s) Glucose [Mass/volume] in Capillary blood by Glucometer 106 mg/dL 70- 140 [facility] ID Date Data Source MAGNESIUM LEVEL 04/08/2021 12:00:00 AM EST eCW1 ([facility]) Name Value Range Interpretation Code Description Data Ema rce(s) Supporting Document(s) 2.4 1.8-2.4 MAGNESIUM LEVEL eCW1 (Critical access hospital) ID Date Data Source Basic Metabolic Profile (BMP) 04/08/2021 12:00:00 AM EST eCW 1 ([facility]) Name Value Range Interpretation Code Description Data Ema rce(s) Supporting Document(s) 155 70-100 GLUCOSE, FASTING eCW1 ([facility]) 45 7-18 BLOOD UREA NITROGEN eCW1 ([facility]) 135 136-145 SODIUM LEVEL eCW1 ([facility]) 41.0 >42 GLOMERULAR FILTRATION RATE eCW 1 ([facility]) 1.72 0.70-1.30 CREATININE FOR GFR eCW1 ([facility]) 5.2 3.5-5.1 POTASSIUM SERUM eCW1 (Critical access hospital) 20 21-32 CARBON DIOXIDE LEVEL eCW1 ([facility]) 11.0 8.8-10.2 CALCIUM LEVEL eCW1 ([facility]) 107 98-107 CHLORIDE LEVEL eCW1 ([facility]) ID Date Data Source CBC with Differential 04/08/2021 12:00:00 AM EST eCW1 ([facility]) Name Value Range Interpretation Code Description Data Ema rce(s) Supporting Document(s) 3.01 4.30-6.10 RED BLOOD COUNT eCW1 (Critical access hospital) 4.0 4.0-10.0 WHITE BLOOD COUNT eCW1 ([facility]) 8.3 13.5-17.5 HEMOGLOBIN eCW1 ([facility]) 86.0 80.0-96.0 MEAN CORPUSCULAR VOLUME e CW1 ([facility]) 25.9 42.0-52.0 HEMATOCRIT eCW1 ([facility]) 178 150-450 PLATELET COUNT, AUTOMATED eCW1 ([facility]) 27.6 27.0-33.0 MEAN CORPUSCULAR HEMOGLOB IN eCW1 ([facility]) 15.9 11.5-14.5 RED CELL DISTRIBUTION WID TH eCW1 ([facility]) 32.0 32.0-36.5 MEAN CORPUSCULAR HGB CONC eCW1 ([facility]) 66.1 36.0-66.0 NEUTROPHILS % eCW1 ([facility]) 10.4 24.0-44.0 LYMPH % eCW1 ([facility]) 14.1 2.0-8.0 MONO % eCW1 ([facility]) 7.3 0.0-3.0 EOS % eCW1 ([facility]) 1.8 0.0-1.0 BASO % eCW1 ([facility]) 2.6 1.5-8.5 NEUTROPHILS # eCW1 ([facility]) 0.4 1.5-5.0 LYMPH # eCW1 ([facility]) 0.3 0.0-0.5 EOS # eCW1 ([facility]) 0.6 0.0-0.8 MONO # eCW1 ([facility]) 0.1 0.0-0.2 BASO # eCW1 ([facility]) ID Date Data Source [id number] 04/05/2021 12:51:04 PM EDT [facility] Name Value Range Interpretation Code Description Data Ema rce(s) Supporting Document(s) Progress Note [facility] SICLCz7fHcWGZvMj26/QZEymGLYfh9NeKQcaCAr0NHhvKLZxU4UdUZH7nK8yBRY4URaDNoCiIbRtJUD9 lbm BzBhwYZeGoABJnJywGIjUmJNafKpnbvYReCI2RzBX9YSOtU16rWAJeCENxO2EsMDL6XUn+Bx2NQDHolE KpKZ8FRmkW3EogNjxBYA8hmc0hqOfJVtC6k9czx5pOLKiDLSwbL1Vv0VhUr94x6+faJin/pyzt2rQwEr jWVFUTRfBkd+kNsC3jpI7LQWIya5Y+4ZiDH0M/628D p3B0MZg/ubhimcGeCr0COdJE2HEWQYzVo0Qz/tZ8iaK005xVcifP42ZGMJ6H3BwWS/3By+FcFf0MBE92 CHxuKQNeKmvVSLQY7INR4Igkceu8fvJVoO9HBfpCZBoKmhi0WMUBQIkaidQGXP5+oanxPez4ICAZqhTc XO44GHFSSz1nCSaDMhv//5vijo13kYGXNLl32XwSwx QLFRyMx9HNm+MGbrXU4LEsamBBcR4GdhI0AwcBY48S6ZxqWez3KNEcP2/+IhZDu/KH5odaILMsOVjuUz Oour73APuWV5b+QKsiflbjeLYSx/E0GS2i+n57pqsxS8DGzLaP3plhH67ubBxMPoE+9xixDbrJMJ8yVp wRgLhU8d6PRv1JPnur2wK6Vk3UX7Gwv5JAOjX661a/ vhnBhNhBr4HjSaWFLmpbM3v/DGvnHZ+7mHrKZfq1aj0GbmPRjkPwg6y7Mi95IsLWQQ6Ho7Q2vAwrFiSp b2TxlrPfqD2cmh906L6vPTXOKDn7LNJbJ1molXDNpHGrHE4y4ikFx9OPwM9PQovFBhmTWbRMU6Htz/RR dmeQdcHNCHsqZcB8FQBVL3tmmTuQNm81QTE2ZhqAjM 36ZsESzTwHNJdTM7QjLLpcN55V92G6N7XuwjDNEOOeuVgcwwNKokMiXLiwNFbbZG6cASVWNQAXftPLx0 ZUElkPlvEwFzEcg22N885491qnJt3zv1uKrWXXF3F/dF1s9jgFAjWioD7vUZlWMUhgjP5+R/WvDDxfJF /Gt2czwnVmgGvBy+zNcPTXKRUbe3ZUK1Mi3GV+3/HINOJOSA [file] PfOPMlPbijVfPnEN9QTc4DFtO5BLG8hGOlKj3JJZt5YLMMTcNsNE3SFJo= ID Date Data Source [id number] 04/05/2021 12:51:00 PM EDT [facility] Name Value Range Interpretation Code Description Data Ema rce(s) Supporting Document(s) SARS-CoV-2 RNA 2019 nCoV Real-Time RT-PCR: NOT DETECTED [facility] lab was ordered by [facility] and reported by [facility]. ID Date Data Source [id number] 04/06/2021 06:57:37 AM EDT [facility] Value Range Interpretation Code Description Data Ema rce(s) Supporting Document(s) Specimen source [Identifier] of Unspecified specimen [facility] SARS-CoV-2 RNA 2019 nCoV Real-Time RT-PCR: NOT DETECTED [facility] Assay Performed 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 [facility] Patient has symptoms related to condition [facility] When did you start to experience these symptoms [Date and time] [Phen X] [facility] Patient was hospitalized because of this condition [facility] patient was admitted to ICU for [facility] Patient resides in a congregate care setting [facility] status [facility] ID Date Data Source [id number] 03/31/2021 05:03:49 PM EDT [facility] Name Value Range Interpretation Code Description Data Ema rce(s) Supporting Document(s) Progress Note [facility] SQFICl2qNsDFHbLj43/RHPjoCUCua9CzZMtmVKl0XDaxBLRnQ8DuFIL5lY3aTCT0CDaSXeBfHsWvDGQm lbm [file] ICAgICAgICAgICAgICAgICAgICAgICAgICAgICAgIC AgICAgICAgICAgICAgICAgICAgICAgICAgICAgICAgICAgICAgICAgICAgICAgICAgICAgDQogICAgIC AgICAgICAgICAgICAgICAgICAgICAgICAgICAgICAgICAgICAgICAgICAgICAgICAgICAgICAgICAgIC AgICAgICAgICAgICAgICAgICAgICAgICAgICAgICAg ICAgDQogICAgICAgICAgICAgICAgICAgICAgICAgICAgICAgICAgICAgICAgICAgICAgICAgICAgICAg ICAgICAgICAgICAgICAgICAgICAgICAgICAgICAgICAgICAgICAgICAgICAgDQogICAgICAgICAgICAg ICAgICAgICAgICAgICAgICAgICAgICAgICAgICAgIC AgICAgICAgICAgICAgICAgICAgICAgICAgICAgICAgICAgICAgICAgICAgICAgICAgICAgICAgDQogIC AgICAgICAgICAgICAgICAgICAgICAgICAgICAgICAgICAgICAgICAgICAgICAgICAgICAgICAgICAgIC AgICAgICAgICAgICAgICAgICAgICAgICAgICAgICAg ICAgICAgDQogICAgICAgICAgICAgICAgICAgICAgICAgICAgICAgICAgICAgICAgICAgICAgICAgICAg ICAgICAgICAgICAgICAgICAgICAgICAgICAgICAgICAgICAgICAgICAgICAgICAgDQogICAgICAgICAg ICAgICAgICAgICAgICAgICAgICAgICAgICAgICAgIC AgICAgICAgICAgICAgICAgICAgICAgICAgICAgICAgICAgICAgICAgICAgICAgICAgICAgICAgICAgDQ ogICAgICAgICAgICAgICAgICAgICAgICAgICAgICAgICAgICAgICAgICAgICAgICAgICAgICAgICAgIC AgICAgICAgICAgICAgICAgICAgICAgICAgICAgICAg ICAgICAgICAgDQogICAgICAgICAgICAgICAgICAgICAgICAgICAgICAgICAgICAgICAgICAgICAgICAg ICAgICAgICAgICAgICAgICAgICAgICAgICAgICAgICAgICAgICAgICAgICAgICAgICAgDQogICAgICAg ICAgICAgICAgICAgICAgICAgICAgICAgICAgICAgIC AgICAgICAgICAgICAgICAgICAgICAgICAgICAgICAgICAgICAgICAgICAgICAgICAgICAgICAgICAgIC XpEXy5S4amAAKrRNSlWT2kTLc5Nq4+ZFqIPvDtHRT6fnQdbH9BRU9pb0HtSUfnGTWre3BdVMa8ZX2NHM XsVSriEA4ZUFxnnz9XECEqBEPinDFHj3aaCjLtFDY9 HWEcFntdMN7TLKZnC8huhhEeBOPzVMKTSH9NJqWpA6HgfF05TJUZCn8+UAniyhHcDgqQFnJ0PRZjk4Yp ZAe6EW2GGYSzDlrxd9OaZmVmMLJOFEzrWE6KWXJ0YFSoTXKdMp6CWNVdO812nnDvPS8YTz9DZhDqGA7p jy3JEbOtXRDuMxgTBmw1QEerWA1LxSYtHAjTgi1jdg EhyhEIj8LzbzEjfKNBPJa4uNJBBZZyLIVOAqSrhIDaUP2eTR1xPBXfTARrSxU6TXAECQ8IQLUuPGVwnA UnNYLwUUMAES2ZEIvuRWI4BKBigyEpbGIfZDjmVZ8RZDEhmhYtRFwmYCOLOPo+Ti0VSB0gt0RhFIwtML AxFU7rtd9VIXuVPjQyD9N0lKFhR6Q3BJieVx8WLCKi BQTtZCaxJZICOZrxEX3AHE5cvnU7RG5CgVYvOHWtLIUxfVAjSCy9G00xlAXeIAqtEJ9JYHW+Earl+Pg0K BKWqBZKxIBErNtQqEXQWPoLtQ5TlF0YOd5FpR6RmID10hVmpnkOeKFmzBX7VDN7dKHQsEXIQXQ5AoGRj sK5pweDpGTYiAHHOToNvS06cgDScQCMpAMQ3NZHyIh 7QYUTvU8GjknStoAsbcqNuATNnOEZHES1MMUrgsrQvnLFlsEoiRV06oYuhZK2BBk8NLrFiYB2osh1LiG KyOd5YOUSlEy0NWAYtODVjAWGiRYK0UFLbIdNyLQbvUHVuLUZbPGF6DHIyAGBkOY9YReBwJHSzMZxhFv EeHKSgERPiai3UCWRpFDFdSLc8YCEtOCKxGYVaGMjs GMPuDPBeTKI5KEWaLOSwFA0RIlMvUBYsZMN3YSofBVOpXQIeqq9KMJEtFWLeVxM4AfJhTQDmBPEqWYoc YJMxQJCkYTCoWCRrXYIkLO0BTqWwRHCbKNSnRRivHFYjVIFwjk2PNLBkCQDcXmQ9XzQlXDEtYYAbVOgp JQXxYIN8FsN9LFOzKZKyWC5IJbScTLFaTGB2PQejRG OkYGIdwr7XYKHcJCXrYFfkIGIyVUVeINZhVRokPBBbTFQ0ESy0EOXvJTAhOV0HEmNoEVVlAFB6RORtUG CjHVKxey4OMCEiTSOfUqMcRSWhNQYlABDeEEbtVTAiVAY9MVW8IHJoVWSdTX9MTwQwUKZaHObjZXKiWF ZlWEEkll0RCCCdSPSnTiZeTYTkJSMlUYXdVYnpOBAj EUW7ATK5EHAeTKEeFI9RTfQhNBFkJWk2HMhmSCCgMLPdfa3CTUYvWGRzAUO7FYClYFErDJLxCQq1kzHg hSKjIFh5OK3EE7GzwwSfThMSAy6It998JNYhPGXvSv8HX0hlKn0qIVFkVNRUCb9CNZt3THS1GJD2B5Yx MWYaLJVtIwI3JOXfDOAxHFG7BdJ5ZBS+QAy0OJnrPA w9MnCvDQLhHdBmWaJiCSU0CFY9NrefGphxTL7fYWJNWl8+ZOhmxIKcvCyaABQDQyT9Jfm6VDvtKZXEJp 0K ID Date Data Source [id number] 03/31/2021 05:03:44 PM EDT [facility] Name Value Range Interpretation Code Description Data Ema rce(s) Supporting Document(s) Progress Note [facility] QUYLBo5bJcTWBiSs47/EDLxxGMDkz6AcPNxqRUh4KEijSUTkD0MrSFX2xA7vMGZ0FQaHUlTdHwBuAENv lbm [file] ICAgICAgICAgICAgICAgICAgICAgICAgICAgICAgIC BjOKIcHSUmRIZmUWZtFX7GXFVsYLLxAQAlDXToSSUmVCNkSORfJAYwNPCzPPHvCWSmUGCvQDEaTRFjBA AdCWOdNIWoABMiKZSiTEHfXZUbYZSiUHGrPXKeLAXuFLVaHVSxFCMpRYTzHSRgHETbEPTsSMXrKT6IKD AgICAgICAgICAgICAgICAgICAgICAgICAgICAgICAg ICAgICAgICAgICAgICAgICAgICAgICAgICAgICAgICAgICAgICAgICAgICAgICAgICAgICAgICAgICAg WTGjMXGjMV9DTOGuLHZlHWXyDQJxAIJlNLXhKMVeAMQqUWXgDMLhCAZxLZJxURJiGNCpDUNeTVMfSPEk ICAgICAgICAgICAgICAgICAgICAgICAgICAgICAgIC GhIRQiSFOtAYOlFRHkCYXaGQ1TMXRkZAYjPVMuJZXjDPVbILWaANGsTUYjOYZjNJXrSXMlXIGkCRSiFX AgICAgICAgICAgICAgICAgICAgICAgICAgICAgICAgICAgICAgICAgICAgICAgICAgICAgICAgICAgIA 0KICAgICAgICAgICAgICAgICAgICAgICAgICAgICAg ICAgICAgICAgICAgICAgICAgICAgICAgICAgICAgICAgICAgICAgICAgICAgICAgICAgICAgICAgICAg URHcXFLvYTMgOT0IYVZiLNYiERNnTWZiKCQfZZDaWYBzTKYcVYXmHMUxRFBmAZKdFFOqDUHoBDHxRKSq ICAgICAgICAgICAgICAgICAgICAgICAgICAgICAgIC RkYEXkZDLsZMDdQXLpORPiRITmIZ7RXNKoXLPlLNWwUAMuFKUhYYJhBHMrUHJcCAAhMIJfHUPfOXNxJQ AgICAgICAgICAgICAgICAgICAgICAgICAgICAgICAgICAgICAgICAgICAgICAgICAgICAgICAgICAgIC QfJH6UZDKkIIGuIYFkWCMhGMOdSKTnGVKcNMSmHCYe ICAgICAgICAgICAgICAgICAgICAgICAgICAgICAgICAgICAgICAgICAgICAgICAgICAgICAgICAgICAg DUNuQFPlJNYjTYHgID4KZYZzNEPnTXOpMZVqSQTtJFYqVBCzFEWaUGFtRETyFIXtEGZgIDJdCHEpRKDi ICAgICAgICAgICAgICAgICAgICAgICAgICAgICAgIC IgJSFfZLGlHYAgQBAeZJSrBZYiYERbIT8ARG86fDTkl1C2BFNuKO0flxs/Ur3CIQcwnjKjdJXjIP5ZVf BbPR7bck7QAbLoFG2zik3SSOkCCyUpQ8G8gFDoEOJcVZFUIqAkV74hQPflZq73MAfjKIWxKdXbNHs2Ql 9SCkNvP7efNLQnIrN2IKDcByX0PPRaYfD0VNIkLjQd XVYiVTXaEFWqZYXPCJ5ZWaOxS6NftS99NJCHPe7+ZQlbmxNnPueJMeV6MULai0AsNIf3BA8WJRSfBszc x2QfVxnvTPOKMGotCU1BSZM0RPF7YROxKg4ICUTpS156cfLmVI6CNb7ANcPpZF8ker3TEqqhDIQfZwaE Eot5TXjmFL1XaJChDMlUov4mrdQuhtQFu7GjnaLxrZ IKmxibbVgkTVlgVyRtg0TfPETNSFXvpHIkRU4dSD5uDXKvPYHsOrE5CMDDCN9CZDZpTGWxbMMyMNHbMH XSNN4KAMgaDGL8OVOqzjCbrNJgVMxeMQ0RVTHzwuMiGqzcKWBQEGs+Aq4PBG7gq1CcUOpoRJPfDW2udv 2VPNsSIkAfW6G3hTDbX9G6OGalZu3BNBJeEPNpOaPu XOFPQFpsJT8JAS6emyX4IA1JqYGfOFMdEMKblTWaZIy8V50htDGfNBqzTM1AJKG+Earl+At4WMHPqCBOu KRSwOhXbHZIUZnPqS8JlX4TCx5DaJ2NhWS43nOxyzsTmLQstKS9WWW5wJFCxUEMTIR6QxYHusX7uqbEw MyCqJQGMCsWlJ76wtBSxHBXuHIJ8PLRcCi2JOHOkS7 XoriZtpShielGbGADzYJDEPS8YODfafyGwzXQnuKmxZX86wTfvQR9GKh7VUgGnQS2iuo6HzXRvXf2IQQ QjJS5PFNNyUWDmLHDiAHL9FUHeKdQjYDtlVDLkAKOkINF1LFIpPZCtKS1AAeUrGRZpEpYgSASuHPRjHY Lkug0OYNTzILZiQjQsXLEqFKZhGANoWIxrQQIiPTVc XSB4RFTnQMIzLO9WJhEbDGTsHFP3BIXcEAWxYSGqre4KYTBgSVRcAYW3UZDaSOLbFCNjSTwiNAHpREH3 IqT3NRMkFDLkFE3OZyLqRBTpVEq9XxWvKGSoEHXsom5TTSOiUGMfVGRdWFBnYADzYCYaLEoeUQYiZUQv JGM6QICkDCTsVJ6ZWeEmDTZwTTY8AJNtUQTxSNPwud 8WDCAvZWBvThf0JpUjCUMnAMKqPDrzUXCaZAA8KVV9KDUaBIJiNS0HAeChQTOoIHXsSBMlNRDiRLOmmh 9LAPNsJPNjLnYrYOAaMMIxRHJeAWfeCJWpROO4VVPqOVUbNYUxKK5WArGnXJXwNAP0CXWpPIGtXKGqjv 5VLYCsKJYgNaX5VfOlBRBzQPCaFOixIZFlLUZ8RkY8 KYMoXRUbVZ9OZcLjKDEsUKw3ZcMbHGIqOKQefg7YRPRqFCScBWT4IdGcTYEkZYNjBJizUKLpGZC1Dmi9 SUEjKHCqYT5YRtMbATMhYun6KLnaORHwQDHulu9VJEVuZHWkBWZ4TgWoSAHfHLRlPTqfEPHrAQFcTdjl OFHlWHCnTG7BJnDdCEIqGpX7SMKtPYGpGTUyzt1DMG ScBQJgCfX3DQHgISEuORMfEWvgZKWwSYCqZsX7EPRtBYViFE6HTgYoYWXuLqAdEUXaKUBvNKNqqc4WjJ XfoQhqhl4KFZpTPy0PzBfzIHNnAVwuEv8azOTtGIQjLISTOw3UsbVjWLAgRTGXJKveLQRtWQElRzRgFD L2OOUaTFQdGKRqMeocWDZ9Wwi7EgBhJUYdTzT2VEUo JSN5Vft9IoDmKLNpOWWcYMOfTTluBwtxYROkJYD+XD5nGTm+Gx4Aw7JbteU1jcDcXKhdHsPhDE9ZDODW T0YNCg== ID Date Data Source [id number] 03/31/2021 11:27:34 AM EDT [facility] Name Value Range Interpretation Code Description Data Ema rce(s) Supporting Document(s) POC GLUCOSE 206 mg/dL (70-99) H [facility] NOTIFIED PROVIDERNOTIFIED NURSEPERFORMED BY CLINICAL STAFF ID Date Data Source [id number] 03/31/2021 09:33:13 AM EDT [facility] Name Value Range Interpretation Code Description Data Ema rce(s) Supporting Document(s) WBC 4.7 10*3/uL (4.1-11.0) [facility] RBC 3.05 10*6/uL (4.60-6.10) L [facility] HGB 8.5 g/dL (13.5-18.0) L [facility] PATIENT TRANSFUSED HCT 25.8 % (41.0-53.0) L [facility] PERFORMED AT [address] [place] [place] [address] MCV 84.6 fL (80.0-95.0) [facility] MCH 28.0 pg (27.0-32.0) [facility] MCHC 33.0 g/dL (32.0-36.0) [facility] RDW 16.2 % (10.5-14.5) H [facility] PLT 167 10*3/uL (150-450) [facility] MPV 8.8 fL (7.1-10.7) [facility] ID Date Data Source [id number] 03/31/2021 08:41:39 AM EDT [facility] Name Value Range Interpretation Code Description Data Ema rce(s) Supporting Document(s) POC GLUCOSE 122 mg/dL (70-99) H [facility] PERFORMED BY CLINICAL STAFF ID Date Data Source [id number] 03/30/2021 04:54:35 PM EDT [facility] Name Value Range Interpretation Code Description Data Ema rce(s) Supporting Document(s) POC GLUCOSE 174 mg/dL (70-99) H [facility] PERFORMED BY CLINICAL STAFF ID Date Data Source [id number] 03/30/2021 12:43:48 PM EDT [facility] Name Value Range Interpretation Code Description Data Ema rce(s) Supporting Document(s) POC GLUCOSE 167 mg/dL (70-99) H [facility] NOTIFIED NURSEPERFORMED BY CLINICAL S TAFF ID Date Data Source [id number] 03/30/2021 12:39:34 PM EDT [facility] Name Value Range Interpretation Code Description Data Ema rce(s) Supporting Document(s) WBC 3.2 10*3/uL (4.1-11.0) L [facility] RBC 2.36 10*6/uL (4.60-6.10) L [facility] HGB 6.6 g/dL (13.5-18.0) L [facility] RESULT(S) CALLED TO AND READ BACK BY[employer] 4S AT 1237 ON 03/30/21 [place] [id number] HCT 19.9 % (41.0-53.0) L [facility] PERFORMED AT [address] [place] [address](S) CALLED TO AND READ BACK BYGoozzy 4S AT 1237 ON 03/30/[place] [id number] MCV 84.3 fL (80.0-95.0) [facility] MCH 27.9 pg (27.0-32.0) [facility] MCHC 33.1 g/dL (32.0-36.0) [facility] RDW 16.8 % (10.5-14.5) H [facility] PLT 141 10*3/uL (150-450) L [facility] MPV 9.3 fL (7.1-10.7) [facility] ID Date Data Source [id number] 03/30/2021 08:35:32 AM EDT [facility] Name Value Range Interpretation Code Description Data Ema rce(s) Supporting Document(s) POC GLUCOSE 119 mg/dL (70-99) H [facility] NOTIFIED NURSEPERFORMED BY CLINICAL S TAFF ID Date Data Source [id number] 03/30/2021 05:31:19 AM EDT [facility] Name Value Range Interpretation Code Description Data Ema rce(s) Supporting Document(s) URINE WBC (0-5) [facility] URINE RBC (0-2) [facility] BACTERIA 2+ [HPF] [facility] ID Date Data Source [id number] 03/30/2021 05:05:22 AM EDT [facility] Name Value Range Interpretation Code Description Data Ema rce(s) Supporting Document(s) COLOR [facility] PERFORMED AT [address] [facility] [address] APPEARANCE [facility] SPEC GRAV URINE 1.011 (1.003-1.030) [facility] PH URINE 6.0 (5.0-7.5) [facility] LEUK ESTERASE (NEG) [facility] CRITERIA FOR CULTURE NOT MET.CULTURE CAN BE ADDED WITHIN 36 HOURS OFCOLLECTION. NITRITE URINE (NEG) [facility] PROTEIN URINE (NEG) [facility] GLUCOSE URINE (NEG) [facility] KETONE URINE (NEG) [facility] [place] UROBILINOGEN 0.2 mg/dL (0-1.0) [facility] [place] BILIRUBIN URINE (NEG) [facility] BLOOD/HGB URINE (NEG) A [facility] ID Date Data Source [id number] 03/31/2021 12:30:00 AM EDT [facility] [place] [id number] PATIENT NAME: EL LINARES OF : 2REPORT: ADMISSION NOTEPATIENT NUMBER: [id number] STATUS: SDMEDICAL RECORD NUMBER: [id number] OF ADMISSION: 1ROOM: 02 PRIMARY CARE PROVIDER: Анна Braun MD UROLOGIST: Dr. Walker. The patient also follows up with [facility] [[email or web address] Oncology. CHIEF COMPLAINTS: Recurrent bleeding from the ostomy. HISTORY OF PRESENT ILLNESS: 80-year-old unfortunate male with history of prior bladder cancer requiring a radical cystoprostatectomy with ileal conduit and recently diagnosed hepatocellular carcinoma and scheduled to receive radiation therapy at [facility] [[email or web address] presented to the ED with reports of recurrent bleeding from ostomy since Thursday morning. The patient has had multiple episodes of this and was discharged from [facility] in 03/12/2021 with the similar episode requiring [...] portal vein thrombosis, pending radiation therapy at [facility] [[email or web address]6. Chronic ascites, on diuretics.7. Recurrent bleeding from [...] recurrent bleeding from the ostomy, discharged from [facility] about three weeks ago and required pressure [...] MD Dictated: 03/30/2021 3:44DT: 03/30/2021 3:51Job #: [id number]: Анна Braun MD NOTE: [facility] computer generated reports are not confirmed orauthenticated unless they are signed by the providerElectronically Authenticated and Edited by:GARETH MONTANA MD on 03/31/2021 12:30 AM EDT Name Value Range Interpretation Code Description Data Ema rce(s) Supporting Document(s) ID Date Data Source [id number] 03/30/2021 01:21:00 AM EDT [facility] Name Value Range Interpretation Code Description Data Ema rce(s) Supporting Document(s) SARS coronavirus 2 RNA [Presence] in Res piratory specimen by JUSTEN with probe detection NOT DETECTED [place] This lab was reported by [facility]. ID Date Data Source [id number] 03/30/2021 09:28:37 AM EDT [facility] Name Value Range Interpretation Code Description Data Ema rce(s) Supporting Document(s) SPECIMEN DESCRIPTION [facility] COVID19 RESULT (NDET) Lab [facility] THIS ASSAY AMPLIFIES AND DETECTSTHE TARG ET RNA USING REAL-TIME PCR.TESTING PERFORMED ON THE [employer] COMMENT Lab [facility] UNDER AN EMERGENCY USE AUTHORIZATION(EUA ) FOR THE DETECTION AND/OR DIAGNOSISOF THE VIRUS THAT CAUSES COVID-19.NEGATIVE 2019_NCOV RT-PCR RESULTS DONOT PRECLUDE 2019_NCOV INFECTION ANDSHOULD NOT BE USED THE SOLE BASISFOR PATIENT MANAGEMENT DECISIONS. FIRST TEST [facility] SYMPTOMATIC [facility] [place] Y DATE OF SYMPT ONSET [facility] HOSPITALIZED [facility] [place] ICU [facility] CONGREGATE CARE SET [facility] [place] ID Date Data Source [id number] 03/29/2021 11:53:30 PM EDT [facility] SPEC EXP DATE 1PATI ENT ABO/Rh A POSITIVEANTIBODY SCREEN NEGATIVETESTING SITE PERFORMED AT [address] [place], [place] [address]OOD BANK COMMENT BLOOD TYPE CONFIRMED. Name Value Range Interpretation Code Description Data Ema rce(s) Supporting Document(s) TYPE AND SCREEN [facility] [place] PATIENT ABO/Rh A POSITIVE ID Date Data Source [id number] 03/29/2021 11:10:22 PM EDT [facility] Name Value Range Interpretation Code Description Data Ema rce(s) Supporting Document(s) TOTAL PROTEIN 7.0 g/dL (6.4-8.2) [facility] ALBUMIN 2.2 g/dL (3.2-4.5) L [facility] GLOBULIN 4.8 g/dL (2.7-4.3) H [facility] ALB/GLOB RATIO 0.5 RATIO [facility] BILIRUBIN,TOTAL 0.4 mg/dL (0.0-1.0) [facility] PLEASE NOTE:Total bilirubin results may be falselyelevated in patients taking Eltrombopag. BILIRUBIN,CONJUGATED 0.2 mg/dL (0.0-0.3) [facility] BILIRUBIN,UNCONJ. 0.2 mg/dL (0.0-0.7) [facility] ALKALINE PHOSPHATASE 177 U/L (45-117) H [facility] [place] AST (SGOT) 85 U/L (11-39) H [facility] ALT (SGPT) 69 U/L (12-78) [facility] ID Date Data Source [id number] 03/29/2021 11:10:22 PM EDT [facility] Name Value Range Interpretation Code Description Data Ema rce(s) Supporting Document(s) TROPONIN I <0.05 ng/mL (<0.05) [facility] [place] Less than 0.05: Myocardial injury unlike lyGreater than or equal to 0.05: Highly suggestive of myocardial injuryCorrelation with rise and/or fall ofserial troponins, clinical symptomsand ECG changes is necessary. ID Date Data Source [id number] 03/29/2021 11:10:22 PM EDT [facility] Name Value Range Interpretation Code Description Data Ema rce(s) Supporting Document(s) SODIUM 137 mmol/L (136-145) [facility] POTASSIUM 4.7 mmol/L (3.6-5.2) [facility] CHLORIDE 105 mmol/L (100-108) [facility] CO2 22 mmol/L (22-31) [facility] ANION GAP 10 mmol/L (7-16) [facility] UREA NITROGEN 39 mg/dL (7-24) H [facility] CREATININE 1.51 mg/dL (0.80-1.30) H [facility] BUN/CREAT RATIO 25.8 RATIO (10.0-20.0) H [facility] GLUCOSE 163 mg/dL (70-99) H [facility] CALCIUM 10.0 mg/dL (8.4-10.2) [facility] GFR 45 ml/min/1.73m2 (>59) L [facility] GFR ( AMER) 54 ml/min/1.73m2 (>59) L [facility] GFR INTERPRETATION [facility] --NORMAL KIDNEY FUNCTION OR MILD DISEASE - GFR >OR= 60CHRONIC KIDNEY DISEASE - GFR 15 - 59RENAL FAILURE - GFR <15 Est. GFR calculation based on the MDRDstudy equation, which assumes a steadystate for creatinine. Est. GFR should notbe used for medication dosing. ID Date Data Source [id number] 03/29/2021 10:52:36 PM EDT [facility] Name Value Range Interpretation Code Description Data Ema rce(s) Supporting Document(s) PT 11.6 s (9.2-11.9) [facility] PERFORMED AT [address] [facility] [address] INR 1.11 [facility] SUGGESTED THERAPEUTIC RANGES USING INR F ORSTABILIZED ANTICOAGULATED PATIENTS:STANDARD DOSE THERAPY INR 2.0-3.0 DVT, PE, PREVENT DVT OR EMBOLISMHIGH DOSE THERAPY INR 2.5-3.5 PREVENT EMBOLISM FROM MECHANICAL HEART VALVE ID Date Data Source [id number] 03/29/2021 10:43:14 PM EDT [facility] Name Value Range Interpretation Code Description Data Ema rce(s) Supporting Document(s) WBC 3.5 10*3/uL (4.1-11.0) L [facility] [place] RBC 2.67 10*6/uL (4.60-6.10) L [facility] HGB 7.3 g/dL (13.5-18.0) L [facility] HCT 22.4 % (41.0-53.0) L [facility] MCV 83.9 fL (80.0-95.0) [facility] MCH 27.4 pg (27.0-32.0) [facility] MCHC 32.7 g/dL (32.0-36.0) [facility] RDW 16.6 % (10.5-14.5) H [facility] PLT 173 10*3/uL (150-450) [facility] MPV 9.1 fL (7.1-10.7) [facility] NEUT % 71.2 % (35.0-75.0) [facility] LYMPH % 8.1 % (16.0-52.0) L [facility] MONO % 12.1 % (0.0-8.0) H [facility] EOS % 6.5 % (0.0-5.0) H [facility] BASO % 2.1 % (0.0-4.0) [facility] NEUT # 2.5 10*3/uL (1.8-7.7) [facility] LYMPH # 0.3 10*3/uL (1.2-4.8) L [facility] MONO # 0.4 10*3/uL (0.0-0.8) [facility] Eosinophils [#/volume] in Blood by Automated count 0.2 10*3/uL (0.0-0 .5) [facility] BASO # 0.1 10*3/uL (0.0-0.2) [facility] ID Date Data Source [id number] 03/27/2021 01:51:59 PM EDT [facility] CT THORAX WITH CONTRAST [id number] RESUL TInterpreted by:Hilario Bautista, MDCT thorax.INDICATION: Hepatocellular [...] rce(s) Supporting Document(s) ID Date Data Source [id number] 03/20/2021 09:37:00 AM EDT [facility] ([facility]) Name Value Range Interpretation Code Description Data Ema rce(s) Supporting Document(s) Glucose [Presence] in Urine Laboratory test result [facility] ([facility] [place]) ostomy bag Protein [Presence] in Urine by Test strip Laboratory test result [facility] ([facility]) ostomy bag Ua Leuko Laboratory test result ME DENT ([facility]) ostomy bag Ua Nitrite Laboratory test result [facility] ([facility]) ostomy bag Blood [Presence] in Urine by Visual Laboratory test result [facility] ([facility]) ostomy bag Ketones [Presence] in Urine by Test strip Laboratory test result [facility] ([facility]) ostomy bag Color of Urine Laboratory test result [facility] ([facility]) ostomy bag Clarity of Urine Laboratory test result [facility] ([facility]) ostomy bag Ua Specific Amelia 1.010 1.003-1.030 MEDE NT ([facility]) ostomy bag pH of Urine by Test strip 7.0 5.0-7.5 [facility] ([facility]) ostomy bag Bilirubin.total [Presence] in Urine by Test strip Laboratory test res ult [facility] ([facility]) ostomy bag Urobilinogen [Mass/volume] in Urine by Test strip 0.2 E.U./dL 0.0-1.0 [facility] ([facility]) ostomy bag ID Date Data Source [id number] 03/15/2021 03:57:13 PM EDT [facility] Name Value Range Interpretation Code Description Data Ema rce(s) Supporting Document(s) Progress Note [facility] EQLUJg1dXtFVLmKw14/JXTemTDKsl0RsUEygFAw6ZXeeJBXxG3WmMVC9xB5wWVF6ZFqIGeHzMkYcTRD1 lbm [file] AgICAgICAgICAgICAgICAgICAgICAgICAgICAgICAgICAgICAgICAgICAgICAgICAgICAgICAgDQogIC AgICAgICAgICAgICAgICAgICAgICAgICAgICAgICAg ICAgICAgICAgICAgICAgICAgICAgICAgICAgICAgICAgICAgICAgICAgICAgICAgICAgICAgICAgICAg ICAgICAgDQogICAgICAgICAgICAgICAgICAgICAgICAgICAgICAgICAgICAgICAgICAgICAgICAgICAg ICAgICAgICAgICAgICAgICAgICAgICAgICAgICAgIC AgICAgICAgICAgICAgICAgDQogICAgICAgICAgICAgICAgICAgICAgICAgICAgICAgICAgICAgICAgIC AgICAgICAgICAgICAgICAgICAgICAgICAgICAgICAgICAgICAgICAgICAgICAgICAgICAgICAgICAgDQ ogICAgICAgICAgICAgICAgICAgICAgICAgICAgICAg ICAgICAgICAgICAgICAgICAgICAgICAgICAgICAgICAgICAgICAgICAgICAgICAgICAgICAgICAgICAg ICAgICAgICAgDQogICAgICAgICAgICAgICAgICAgICAgICAgICAgICAgICAgICAgICAgICAgICAgICAg ICAgICAgICAgICAgICAgICAgICAgICAgICAgICAgIC AgICAgICAgICAgICAgICAgICAgDQogICAgICAgICAgICAgICAgICAgICAgICAgICAgICAgICAgICAgIC AgICAgICAgICAgICAgICAgICAgICAgICAgICAgICAgICAgICAgICAgICAgICAgICAgICAgICAgICAgIC AgDQogICAgICAgICAgICAgICAgICAgICAgICAgICAg ICAgICAgICAgICAgICAgICAgICAgICAgICAgICAgICAgICAgICAgICAgICAgICAgICAgICAgICAgICAg ICAgICAgICAgICAgDQogICAgICAgICAgICAgICAgICAgICAgICAgICAgICAgICAgICAgICAgICAgICAg ICAgICAgICAgICAgICAgICAgICAgICAgICAgICAgIC AgICAgICAgICAgICAgICAgICAgICAgDQogICAgICAgICAgICAgICAgICAgICAgICAgICAgICAgICAgIC AgICAgICAgICAgICAgICAgICAgICAgICAgICAgICAgICAgICAgICAgICAgICAgICAgICAgICAgICAgIC RuDLDzFFi2C5foCJLaQLAuEO2kHCf8Rk3+DQoNCmVu JQY3btJufF5SYR0fi2KwDXebAMNkr0AcLIq0SJ1IZPHcOJtlMK4KPBzhjy1KDDJoXVIavQLIb7piByWe PCN1RXCfZndmUO7RZLRbD7uasgPrUOXbQHZDVC7ILpIkJ2IdxY18MJKXSc2+NYiacoDgFjlRLyO8JSFk z4NkQKl7TL8WNFKkZzwsa5GiHmTuOPTIARdnCT1UFZ P6BBLyYUJxBv6DFFMsZ905nmYlBG1OXb6AIuKjQK2nky5QFzLiOOYcGoyNVkc4YInqER2TuOJlWGmXkl 8fbxXqwuXJk2DsjbQfiMHLZNIajByonq7iM63fQIpyk9uaNYHOTGGfnQViSE9qIQ9yFQWkMYBsYaI4VF KETD5FAQAmWYVsoIDcZNRwJVMYRE8LAUznPFF8XIHd omKknNPkCAhjKB0WSIGlitQxKAesUCHPBLx+Xi7PFY9sl5DrNRacCTSgID7svd3CZEhERgZjJ6W4iUMb H0A4QSdaYg2VRIGnITVwKAbqCYRSMRkqYS3FZJ0saaK5SY3JrMQzXIIlYBOsjBWoNRh6R75myTTeFOtq UC7FLPI+Earl+Mp9INJFbSSYlDSCcYxNpQONHOkEoX8 NpZ8JTo8AnR5RhJJ17pXxankIuVYvgKH9WMV2jXYPyLMXZQQ2NzCNjoF3duaMfFDMsVOBVEmDeL44fuE AzLOVlFKR1YRXwMl0NQWPgW8LttcSmsDohvnWwGZHsTWIZVL0IHEcicwVhzFAzqKnnSB49sPsyAM8AIx 2ONeXqVM2mpw6JtLJuFr6PWDAxZr0YZXAaCDFdODZp FXH5HUAtLsFnXNtwDWIzMFKlEBY8LUEeHVBcMV3SQsQvBHBuKAfgMJrdSFDbQTKjcw6AVRRiCBMhENMx NiZbBRAwGOWsCHoeUQZyYZCgMKL6SXDnMWQzAY2URoLcHSMgFQUcYTNzAFJcNDSvvg1HCQNqAMWuEjOa HIVzONUdPYRaJOopZFPzLUUhDys2FHExNKOxKQ7CBq KeCFOxPIQ7IuDgOAVpWHCxlw2ZQGCiASHbUnq0IwItGYXcDKOgVUyxIPNaVHK0KfFmNYGvNGGlVN5HIv UeDHSpYES2OKSoQGVoTPBgdu3YDJNqVAZdKQJkWPEnTNOfVSQhKRscZOVeZPM6CIL1VETkFYMvER6YMx WxWRDdJWR8SpPbUQPfNFFhws6ZSLWzSCFtXwu1YUZa INCnKXNhSYpwKCGgBXT8JwBaYTXwPPTbVM3FZoEsQZEyQUnsTtIpNKIjTWXuqa7RQKRwMZAcZpu4XnBm BFPqITQtGTwfRQWjYKL6TeE9PUVuYNPtLE2WUvOtFCUkSIqzZeZdTPPcJGUvcy8PLQGjKIDuYNUbHVDo ISAmBQSmXTh6sdWifYKzMQy6OE8FL6MbxwHdYpIMXw 3Cl371UQLwJDNsJj5TS0pcIw2aRZUyAYJPZv9QGYx5BVahTWAxHPBmBUHzR7BfFOYkD6FxRjCeKAC5SI E2NDc+VTezVPY9KQJsMUBqFHMpFSU1SSV4XKU8SIR6MOI0QPH8Td9vBOGYIz2+DQpzdGFydHhyZWYNCj J0Pim9FCfgPZPKDe6U ID Date Data Source [id number] 03/12/2021 12:24:23 PM EDT [facility] Name Value Range Interpretation Code Description Data Ema rce(s) Supporting Document(s) POC GLUCOSE 76 mg/dL (70-99) [facility] NOTIFIED NURSEPERFORMED BY CLINICAL S TAFF ID Date Data Source [id number] 03/12/2021 12:18:21 PM EDT [facility] Name Value Range Interpretation Code Description Data Ema rce(s) Supporting Document(s) POC GLUCOSE 76 mg/dL (70-99) [facility] PERFORMED BY CLINICAL STAFF ID Date Data Source [id number] 03/12/2021 08:29:05 AM EDT [facility] Name Value Range Interpretation Code Description Data Ema rce(s) Supporting Document(s) SODIUM 142 mmol/L (136-145) [facility] POTASSIUM 3.9 mmol/L (3.6-5.2) [facility] CHLORIDE 112 mmol/L (100-108) H [facility] CO2 24 mmol/L (22-31) [facility] ANION GAP 6 mmol/L (7-16) L [facility] UREA NITROGEN 20 mg/dL (7-24) [facility] CREATININE 1.06 mg/dL (0.80-1.30) [facility] BUN/CREAT RATIO 18.9 RATIO (10.0-20.0) [facility] GLUCOSE 74 mg/dL (70-99) [facility] CALCIUM 9.2 mg/dL (8.4-10.2) [facility] GFR >60 ml/min/1.73m2 (>59) [facility] GFR ( AMER) >60 ml/min/1.73m2 (>59) [facility] GFR INTERPRETATION [facility] --NORMAL KIDNEY FUNCTION OR MILD DISEASE - GFR >OR= 60CHRONIC KIDNEY DISEASE - GFR 15 - 59RENAL FAILURE - GFR <15 Est. GFR calculation based on the MDRDstudy equation, which assumes a steadystate for creatinine. Est. GFR should notbe used for medication dosing. ID Date Data Source [id number] 03/12/2021 07:46:51 AM EDT [facility] Name Value Range Interpretation Code Description Data Ema rce(s) Supporting Document(s) WBC 3.4 10*3/uL (4.1-11.0) L [facility] [place] RBC 2.76 10*6/uL (4.60-6.10) L [facility] HGB 7.8 g/dL (13.5-18.0) L [facility] HCT 23.4 % (41.0-53.0) L [facility] MCV 84.9 fL (80.0-95.0) [facility] MCH 28.1 pg (27.0-32.0) [facility] MCHC 33.1 g/dL (32.0-36.0) [facility] RDW 16.0 % (10.5-14.5) H [facility] PLT 152 10*3/uL (150-450) [facility] MPV 8.2 fL (7.1-10.7) [facility] NEUT % 73.0 % (35.0-75.0) [facility] LYMPH % 6.1 % (16.0-52.0) L [facility] MONO % 13.2 % (0.0-8.0) H [facility] EOS % 5.8 % (0.0-5.0) H [facility] BASO % 1.9 % (0.0-4.0) [facility] NEUT # 2.5 10*3/uL (1.8-7.7) [facility] LYMPH # 0.2 10*3/uL (1.2-4.8) L [facility] MONO # 0.4 10*3/uL (0.0-0.8) [facility] Eosinophils [#/volume] in Blood by Automated count 0.2 10*3/uL (0.0-0 .5) [facility] BASO # 0.1 10*3/uL (0.0-0.2) [facility] ID Date Data Source [id number] 03/12/2021 05:39:53 AM EDT [facility] Name Value Range Interpretation Code Description Data Ema rce(s) Supporting Document(s) POC GLUCOSE 78 mg/dL (70-99) [facility] NOTIFIED NURSEPERFORMED BY CLINICAL S TAFF ID Date Data Source [id number] 03/11/2021 11:38:09 PM EDT [facility] Name Value Range Interpretation Code Description Data Ema rce(s) Supporting Document(s) POC GLUCOSE 84 mg/dL (70-99) [facility] NOTIFIED NURSEPERFORMED BY CLINICAL S TAFF ID Date Data Source [id number] 03/12/2021 10:21:00 AM EDT [facility] DATE OF EXAM: [facility] ABDOMEN WITH AND WITHOUT IV [...] greater than right. Professional interpretation performed at [facility] .End of diagnostic report for accession: [id number] Interpreted: Shahnaz Ramos MDTranscribed: 03/12/2021 10:01 AMSigned: 03/12/2021 10:21 AM Shahnaz Ramos MD [facility] # [id number] BILL # [id number] Name Value Range Interpretation Code Description Data Ema rce(s) Supporting Document(s) ID Date Data Source [id number] 03/11/2021 06:13:30 PM EDT [facility] Name Value Range Interpretation Code Description Data Ema rce(s) Supporting Document(s) POC GLUCOSE 96 mg/dL (70-99) Lab [facility] Kwong PERFORMED BY CLINICAL STAFF ID Date Data Source [id number] 03/12/2021 03:16:01 PM EDT [facility] Name [...] INCREASES WITHINCREASING LEVELS. ID Date Data Source [id number] 03/11/2021 03:39:07 PM EDT [facility] Name Value Range Interpretation Code Description Data Ema rce(s) Supporting Document(s) APTT 29.6 s (22.0-34.3) [facility] ID Date Data Source [id number] 03/11/2021 03:39:07 PM EDT [facility] [place] Name Value Range Interpretation Code Description Data Ema rce(s) Supporting Document(s) PT 12.2 s (9.2-11.9) H [facility] INR 1.17 [facility] SUGGESTED THERAPEUTIC RANGES USING INR F ORSTABILIZED ANTICOAGULATED PATIENTS:STANDARD DOSE THERAPY INR 2.0-3.0 DVT, PE, PREVENT DVT OR EMBOLISMHIGH DOSE THERAPY INR 2.5-3.5 PREVENT EMBOLISM FROM MECHANICAL HEART VALVE ID Date Data Source [id number] 03/11/2021 03:32:09 PM EDT [facility] [place] Name Value Range Interpretation Code Description Data Ema rce(s) Supporting Document(s) WBC 4.1 10*3/uL (4.1-11.0) [facility] [place] RBC 2.98 10*6/uL (4.60-6.10) L [facility] HGB 8.4 g/dL (13.5-18.0) L [facility] HCT 25.6 % (41.0-53.0) L [facility] PATIENT TRANSFUSED MCV 85.7 fL (80.0-95.0) [facility] MCH 28.2 pg (27.0-32.0) [facility] MCHC 32.9 g/dL (32.0-36.0) [facility] RDW 15.9 % (10.5-14.5) H [facility] PLT 177 10*3/uL (150-450) [facility] MPV 8.4 fL (7.1-10.7) [facility] ID Date Data Source [id number] 03/11/2021 12:40:27 PM EDT [facility] [place] Name Value Range Interpretation Code Description Data Ema rce(s) Supporting Document(s) POC GLUCOSE 99 mg/dL (70-99) [facility] PERFORMED BY CLINICAL STAFF ID Date Data Source [id number] 03/11/2021 07:56:19 AM EDT [facility] [place] Name Value Range Interpretation Code Description Data Ema rce(s) Supporting Document(s) SODIUM 140 mmol/L (136-145) [facility] POTASSIUM 4.0 mmol/L (3.6-5.2) [facility] CHLORIDE 110 mmol/L (100-108) H [facility] CO2 25 mmol/L (22-31) [facility] ANION GAP 5 mmol/L (7-16) L [facility] UREA NITROGEN 17 mg/dL (7-24) [facility] CREATININE 0.98 mg/dL (0.80-1.30) [facility] BUN/CREAT RATIO 17.3 RATIO (10.0-20.0) [facility] GLUCOSE 80 mg/dL (70-99) [facility] CALCIUM 9.5 mg/dL (8.4-10.2) [facility] GFR >60 ml/min/1.73m2 (>59) [facility] GFR ( AM) >60 ml/min/1.73m2 (>59) [facility] GFR INTERPRETATION [facility] --NORMAL KIDNEY FUNCTION OR MILD DISEASE - GFR >OR= 60CHRONIC KIDNEY DISEASE - GFR 15 - 59RENAL FAILURE - GFR <15 Est. GFR calculation based on the MDRDstudy equation, which assumes a steadystate for creatinine. Est. GFR should notbe used for medication dosing. ID Date Data Source [id number] 03/11/2021 07:38:12 AM EDT [facility] Name Value Range Interpretation Code Description Data [facility](s) Supporting Document(s) WBC 3.1 10*3/uL (4.1-11.0) L [facility] [place] RBC 2.46 10*6/uL (4.60-6.10) L [facility] HGB 6.9 g/dL (13.5-18.0) L [facility] [place] [facility] RESULT(S) CALLED TO AND READ BACK BYMACKENZIES Dony ON 5SIR AT 0736 ON 03/11/21 BY [id number] HCT 20.7 % (41.0-53.0) L [facility] MCV 84.4 fL (80.0-95.0) [facility] MCH 27.9 pg (27.0-32.0) [facility] MCHC 33.0 g/dL (32.0-36.0) [facility] RDW 16.0 % (10.5-14.5) H [facility] PLT 154 10*3/uL (150-450) [facility] MPV 8.6 fL (7.1-10.7) [facility] ID Date Data Source [id number] 03/11/2021 05:49:03 AM EDT [facility] Name Value Range Interpretation Code Description Data Ema rce(s) Supporting Document(s) POC GLUCOSE 89 mg/dL (70-99) [facility] NOTIFIED NURSEPERFORMED BY CLINICAL S TAFF ID Date Data Source [id number] 03/11/2021 12:23:19 AM EDT [facility] Name Value Range Interpretation Code Description Data Ema rce(s) Supporting Document(s) POC GLUCOSE 105 mg/dL (70-99) H [facility] NOTIFIED NURSEPERFORMED BY CLINICAL S TAFF ID Date Data Source [id number] 03/10/2021 04:00:00 PM EDT [facility] Name Value Range Interpretation Code Description Data Ema rce(s) Supporting Document(s) SARS coronavirus 2 RNA [Presence] in Res piratory specimen by JUSTEN with probe detection NOT DETECTED [facility] This lab was reported by [facility]. ID Date Data Source [id number] 03/11/2021 01:47:06 PM EDT [facility] Name Value Range Interpretation Code Description Data Ema rce(s) Supporting Document(s) SPECIMEN DESCRIPTION [facility] COVID 19 RESULT (NDET) [facility] NEGATIVE COVID-19 RESULTS DONOT PRECLUDE COVID-2019 INFECTION ANDSHOULD NOT BE USED THE SOLE BASISFOR PATIENT MANAGEMENT DECISIONS. COMMENT [facility] [place] FDA HAS MADE THIS TEST AVAILENZO HUBBARDER AN EMERGENCY USE AUTHORIZATION(EUA) FOR THE DETECTION AND/OR DIAGNOSISOF THE VIRUS THAT CAUSES COVID-19.THIS ASSAY AMPLIFIES AND DETECTS TARGETDNA USING SECOND RIGGER- MEDIATEDAMPLIFICATIONTESTING PERFORMED ON [employer] FIRST TEST [facility] EMPLOYED IN HLTHCARE [facility] SYMPTOMATIC [facility] Kwong DATE OF SYMPT ONSET [facility] HOSPITALIZED [facility] [place] [facility] CONGREGATE CARE SET [facility] ID Date Data Source [id number] 03/12/2021 12:38:20 AM EDT [facility] PATIENT ABO/Rh A POSITIVEANT IBODY SCREEN NEGATIVESPEC EXP DATE 03/13/2021TESTING SITE PERFORMED AT [address] [place], [place] [address]OOD BANK COMMENT BLOOD TYPE CONFIRMED.UNIT NUMBER [id number] COMPONENT TYPE LEUKOPOOR RED CELLSUNIT DIVISION 00STATUS OF UNIT TRANSFUSEDUNIT TAG COMMENT EMERGENCY RELEASETRANSFUSION STATUS OK TO TRANSFUSECROSSMATCH RESULT COMPATIBLEUNIT NUMBER [id number] COMPONENT TYPE LEUKOPOOR RED CELLSUNIT DIVISION 00STATUS OF UNIT TRANSFUSEDTRANSFUSION STATUS OK TO TRANSFUSECROSSMATCH RESULT COMPATIBLE Name Value Range Interpretation Code Description Data Ema rce(s) Supporting Document(s) ID Date Data Source [id number] 03/10/2021 04:51:00 PM EDT [facility] DATE OF EXAM: 03/10/2021XAM: CT [...] exclude hepatocellular carcinoma. Professional interpretation performed at [facility] .End of diagnostic report for accession: [id number] Interpreted: Shahnaz Ramos MDTranscribed: 03/10/2021 04:36 PMSigned: 03/10/2021 04:51 PM Shahnaz Ramos MD [facility] ACC # [id number] BILL # [id number] Name Value Range Interpretation Code Description Data Ema rce(s) Supporting Document(s) ID Date Data Source [id number] 03/10/2021 02:00:09 PM EDT [facility] Name Value Range Interpretation Code Description Data Ema rce(s) Supporting Document(s) SODIUM 137 mmol/L (136-145) [facility] POTASSIUM 4.2 mmol/L (3.6-5.2) [facility] CHLORIDE 107 mmol/L (100-108) [facility] CO2 23 mmol/L (22-31) [facility] ANION GAP 7 mmol/L (7-16) [facility] UREA NITROGEN 20 mg/dL (7-24) [facility] CREATININE 1.15 mg/dL (0.80-1.30) [facility] BUN/CREAT RATIO 17.4 RATIO (10.0-20.0) [facility] GLUCOSE 198 mg/dL (70-99) H [facility] CALCIUM 9.7 mg/dL (8.4-10.2) [facility] GFR >60 ml/min/1.73m2 (>59) [facility] GFR ( AMER) >60 ml/min/1.73m2 (>59) [facility] GFR INTERPRETATION [facility] --NORMAL KIDNEY FUNCTION OR MILD DISEASE - GFR >OR= 60CHRONIC KIDNEY DISEASE - GFR 15 - 59RENAL FAILURE - GFR <15 Est. GFR calculation based on the MDRDstudy equation, which assumes a steadystate for creatinine. Est. GFR should notbe used for medication dosing. ID Date Data Source [id number] 03/10/2021 02:00:09 PM EDT [facility] Name Value Range Interpretation Code Description Data Ema rce(s) Supporting Document(s) TOTAL PROTEIN 6.4 g/dL (6.4-8.2) [facility] ALBUMIN 2.1 g/dL (3.2-4.5) L [facility] GLOBULIN 4.3 g/dL (2.7-4.3) [facility] ALB/GLOB RATIO 0.5 RATIO [facility] BILIRUBIN,TOTAL 0.6 mg/dL (0.0-1.0) [facility] PLEASE NOTE:Total bilirubin results may be falselyelevated in patients taking Eltrombopag. BILIRUBIN,CONJUGATED 0.3 mg/dL (0.0-0.3) [facility] BILIRUBIN,UNCONJ. 0.3 mg/dL (0.0-0.7) [facility] ALKALINE PHOSPHATASE 150 U/L (45-117) H [facility] AST (SGOT) 67 U/L (11-39) H [facility] ALT (SGPT) 59 U/L (12-78) [facility] ID Date Data Source [id number] 03/10/2021 01:44:30 PM EDT [facility] Name Value Range Interpretation Code Description Data Ema rce(s) Supporting Document(s) PT 12.2 s (9.2-11.9) H [facility] INR 1.17 [facility] SUGGESTED THERAPEUTIC RANGES USING INR F ORSTABILIZED ANTICOAGULATED PATIENTS:STANDARD DOSE THERAPY INR 2.0-3.0 DVT, PE, PREVENT DVT OR EMBOLISMHIGH DOSE THERAPY INR 2.5-3.5 PREVENT EMBOLISM FROM MECHANICAL HEART VALVE ID Date Data Source [id number] 03/10/2021 01:33:49 PM EDT [facility] Name Value Range Interpretation Code Description Data Ema rce(s) Supporting Document(s) WBC 4.1 10*3/uL (4.1-11.0) [facility] RBC 2.70 10*6/uL (4.60-6.10) L [facility] HGB 7.3 g/dL (13.5-18.0) L [facility] HCT 23.1 % (41.0-53.0) L [facility] MCV 85.4 fL (80.0-95.0) [facility] MCH 27.1 pg (27.0-32.0) [facility] MCHC 31.8 g/dL (32.0-36.0) L [facility] RDW 16.6 % (10.5-14.5) H [facility] PLT 164 10*3/uL (150-450) [facility] MPV 8.7 fL (7.1-10.7) [facility] NEUT % 73.6 % (35.0-75.0) [facility] LYMPH % 7.3 % (16.0-52.0) L [facility] MONO % 13.3 % (0.0-8.0) H [facility] EOS % 4.7 % (0.0-5.0) [facility] BASO % 1.1 % (0.0-4.0) [facility] NEUT # 3.0 10*3/uL (1.8-7.7) [facility] LYMPH # 0.3 10*3/uL (1.2-4.8) L [facility] MONO # 0.5 10*3/uL (0.0-0.8) [facility] Eosinophils [#/volume] in Blood by Automated count 0.2 10*3/uL (0.0-0 .5) [facility] BASO # 0.0 10*3/uL (0.0-0.2) [facility] ID Date Data Source [id number] 03/04/2021 08:31:14 PM EDT [facility] Name Value Range Interpretation Code Description Data Ema rce(s) Supporting Document(s) Progress Note [facility] MUKYVo2dBiBGZrPe45/KZHuoUHMdo4BzBNudOWw8FBwnBFIiB4UiCFE9dY2nAPN9IXgVYbOmSnDuJLF6 lbm [file] ICAgICAgICAgICAgICAgICAgICAgICAgICAgICAgIC ByMLRiGUQvJEMuYIRlKCVkIJWqGIYnMTIiZBEdBGRaNXSfVOIpOQQtTPAcZOPnAKHvSVOoUW4YUAUrRE AgICAgICAgICAgICAgICAgICAgICAgICAgICAgICAgICAgICAgICAgICAgICAgICAgICAgICAgICAgIC AgICAgICAgICAgICAgICAgICAgICAgICAgICAgICAg IRGbMO5JGEBiQDZnWAUkCNMdCVVbSMXmDDDhKREwOAPaNBXfSEYyKZGhMWScGBTaQIUiUZBqLHWjUNJa UAPxZIHrOVJlQLSxNPBhMUXdFYPhFAKpYHYiZQKvRBXoYRQmRUPvQQOlAKCzLE9TYBQaKDEbXFCeYWSf ICAgICAgICAgICAgICAgICAgICAgICAgICAgICAgIC VpVWXdAWAxPEQbLOWsUHYfQPVdJNSeXYTwXPFnTGFuIPEcVAUeKFCtUFVdBNGcVPZfEEAnAEQhLQ5GYV AgICAgICAgICAgICAgICAgICAgICAgICAgICAgICAgICAgICAgICAgICAgICAgICAgICAgICAgICAgIC AgICAgICAgICAgICAgICAgICAgICAgICAgICAgICAg VHVkFWRqBI7LPBZzAWPkZKAiQNPsTAXgAUAaEZVmEAGnNPBfJEZqRJQaFLFiFCWdONJiYCKmSWGfUOIy QOTqNBVvEANgZGFrTUYfZKOlZAQwJUIsABGsUMKlXXNsSSNoGJNeTZDuXQIgEAVwXD6DRHCwDBSyGOWg ICAgICAgICAgICAgICAgICAgICAgICAgICAgICAgIC AgICAgICAgICAgICAgICAgICAgICAgICAgICAgICAgICAgICAgICAgICAgICAgICAgICAgICAgICAgIA 0KICAgICAgICAgICAgICAgICAgICAgICAgICAgICAgICAgICAgICAgICAgICAgICAgICAgICAgICAgIC AgICAgICAgICAgICAgICAgICAgICAgICAgICAgICAg WTQaQIAzSXHgLP7VJFHaMNWrFNDkCJXkSWVmNMSgSIQtDPStZWPeNNBwBRXaLTOwEFBgDWLvPJIuLQPa ETKwRRPzFHEeCUHbTCVkHPPhUMVuSKRqBAUoPEYqOOVtAMYuYMRuKZCqHCYdSHMlBECxFG4LDD62cFLq u8X5KYDtXM8oodi/Ta8CTEazlnVelJYgXK5JWeFnZF 5wbc7PYiBhXU4ohr7MLPlMLdMqW6N5iWUdEPEnNPOSWoRiK00iYEcpVc32BWzlPDYtJoZjBLh0Du5HHz ItE0meXSObHdF9JOBpShElPDskRQ1Nx5UfqXWwRZb+At0ZVY3nz9PnEIzjXCYsVH5mqj5JLGsPLkYzG6 FowtI9NFDsTGPeZa4TWAUoFZAoqERkDIRsUZMJNhJq B1KpzW43AXQNVk4+FMilvoRtEpdSGtSxJWAoi2BiBWu2UV0NTUXoXTg8pRPmGHPcJ5Qdu3JzKq76SNDh CbbxGtAyuBwuC7N0fYfzVR0sSLGzSK0kIV4aLBRaPRRbEsFtEAFZDK4GIJBrWLLznRAyGWLjMVCVMD0N NAshRAS6DJZdatHauPBuSIciJI8SFJIeziYsSDovME BSDQo+Dl7GVM4om3FgOOlgKAKsRX0lsz7BTMpCRbAiM9S1lJAaD4Y9MGahYz1BOVXiVMYeFZkySAMGYX wvMO0YYM7dhaX0NG2TeRRrSJIwELOmdYVfBMa3J44cyMReXRjqSN5CIJP+Earl+Rw6TRXAlPODbBTHlLo CgXRLRNfQtD5IcC1DLh6LwY8AjTR18iIlaosEgYSum ZN4GSQ4bUKOyTYGAFC1PeXSgqZ2fwiBiRUKvOFUQQvUiC74snMOqROCwYPB4YYXyJh5GMHJqU4JjsiXf fCphbsUmBMFcHVSCJS1RFLwwciPbpCAngGqeIY85jJshAN5KCs4FXeSaVC7gga2KkGFhWz8SCEEqIf9F XDXkCBEmJUTaYJA7KSFaSeXiJRivNJUcMMNqMGG2DW FqZFTtWP3DEaWlLSArMTT4FgVhKLFpDQBevx6VYSEyTERsMTXnAASxPDUdFKPmTTcsBOThGBTuNHN5PH JrHEWuKC3VZjGoYENhJKV2MLwjKPIuRZWyfw1IGRVeHUCmUGc9HQWsIYImOBAeLVhfSLDjPSPtWSZkRE ZdRWJbAO6DBbKzFRLmGULdQBKdIMUuGDTcor9GJRAy CSIdVmI4ReMpBHZiRDXsTGqiOVEeHPC8JlH5MZZhKCTvII3BOgOeACGaURK5HTWlLYCwSSSchq4QOAYj SJDsENNtMcKcNPAcBMIrARgpHUZhCKA4YIw3HUPbVDLdPS3YZpYePJGcYFDmTZOlJFCvMABodi3LVGQe YFQbMrJwIiJpMEVoWTWvERrqFFIgABF1MzBgRTSnKG OiFN6LZpEvNSOgEFT5TEagZNWoBXQlsp2RSAJyOEQiQbI8PWYlKOLiAOPmXKgkCXKsZKO5HzL1SGOqPI JtPD9MOuTfYOJtYLu6YKcjTLNyPAAtyk5FBRRcGVFuRMp8OaKkBVToXAQgBQe4ebHkkYAnZWs6BI6CI9 DjcdAcSpKJBt7Gr727CPXvDZNsFe0SF3zgOl0tHYVr ADBTDt4VNUt2FeKcVPT5P5G3LcPwKUHlFYBrWuByAtMmJIKkMVMtUOY+IDwyZWUwZDQzZThiNTIwNjA5 QFByUrGxOGHiZyCaHQR2CH9jQVPKCj8+IPxurITnmRyhDLNBEnJ5ORf2RLyyAORMNo8V ID Date Data Source [id number] 03/04/2021 03:34:49 PM EDT [facility] Name Value Range Interpretation Code Description Data Ema rce(s) Supporting Document(s) Progress Note [facility] AEISLz2yEwCHMiKc05/BQHpmSGSfn2UiHAipXEg7IWweEBSzF9VrKKS1nO6sUBL5OHsMSnAjVnIqGCU1 lbm [file] ICAgICAgICAgICAgICAgICAgICAgICAgICAgICAgIC AgICAgICAgICAgICAgICAgDQogICAgICAgICAgICAgICAgICAgICAgICAgICAgICAgICAgICAgICAgIC AgICAgICAgICAgICAgICAgICAgICAgICAgICAgICAgICAgICAgICAgICAgICAgICAgICAgICAgICAgDQ ogICAgICAgICAgICAgICAgICAgICAgICAgICAgICAg ICAgICAgICAgICAgICAgICAgICAgICAgICAgICAgICAgICAgICAgICAgICAgICAgICAgICAgICAgICAg ICAgICAgICAgDQogICAgICAgICAgICAgICAgICAgICAgICAgICAgICAgICAgICAgICAgICAgICAgICAg ICAgICAgICAgICAgICAgICAgICAgICAgICAgICAgIC AgICAgICAgICAgICAgICAgICAgDQogICAgICAgICAgICAgICAgICAgICAgICAgICAgICAgICAgICAgIC AgICAgICAgICAgICAgICAgICAgICAgICAgICAgICAgICAgICAgICAgICAgICAgICAgICAgICAgICAgIC AgDQogICAgICAgICAgICAgICAgICAgICAgICAgICAg ICAgICAgICAgICAgICAgICAgICAgICAgICAgICAgICAgICAgICAgICAgICAgICAgICAgICAgICAgICAg ICAgICAgICAgICAgDQogICAgICAgICAgICAgICAgICAgICAgICAgICAgICAgICAgICAgICAgICAgICAg ICAgICAgICAgICAgICAgICAgICAgICAgICAgICAgIC AgICAgICAgICAgICAgICAgICAgICAgDQogICAgICAgICAgICAgICAgICAgICAgICAgICAgICAgICAgIC AgICAgICAgICAgICAgICAgICAgICAgICAgICAgICAgICAgICAgICAgICAgICAgICAgICAgICAgICAgIC AgICAgDQogICAgICAgICAgICAgICAgICAgICAgICAg ICAgICAgICAgICAgICAgICAgICAgICAgICAgICAgICAgICAgICAgICAgICAgICAgICAgICAgICAgICAg ICAgICAgICAgICAgICAgDQogICAgICAgICAgICAgICAgICAgICAgICAgICAgICAgICAgICAgICAgICAg ICAgICAgICAgICAgICAgICAgICAgICAgICAgICAgIC IeSFQyYNWwSWDdELRlGGXkIAUsVLVaEQGeEQs1M5bwGXGjDPMgFT7zGZm2Zp8+TWuRYyKaDFB2biHlxV 5OKS3mz8LrUUrsQYBit9TsHLu5LA9ASCPlTFyeXK6ADGapvx6BGOBbWYQjoUPCz7foYtZtIZF0FLVcHa rsGL1VPEQnR3otqsEfFWYfPOMPJEelTKYXFIufYRXJ MGVoWSBrKdMtIFebXJ6Tu5FxlEZ8XOu+Xb5MJI2fk8OqLNepSAXqQY9khb1WEQcPUnEgZ3XotqY7THZ4 XVZzEw4KHIFcGRTrqYNwZOQmPPPNOeGvJ1IhxC26UEKIBa0+XWldsnDmUdtIQgP3TGOna7JgNJb2WM2I AGAjTNl0aJRpOVCqM5Giu5BhPg20SVTuCbruZ5B4g3 OcuHEbXJjqSbV4LLEukHmkYMYjGGVlBXHoPM6uPPDvEKHeMsJlZXCOKH0HUOZsOYFcrYLjEZQqJCGZHB 9MLUwlPRH1XOQjmdVdhLSwFRqiQH4FGBYsrqQjSlabNSSVMIt+Df4NCY4gv7FcDYipEDIgLE2daa6KUO tYHeJmK7W3uABxE2E2XVesFi9HFDUjJCIuFwYePYAL ZBcyFW7FGD3yqgP1CC0AcPTkXGOdZMMqsVUdDOc3D78nbHPaMZrvMI0VCVE+Earl+Do9WFSSnJHCcAFAv JgAzWVUVQsBiF4ThC1KFf2XfU6GnGT26jUdmtuEwECbiTG3DBH6dWSOwPEMXQJ8WzUFccL2sflBxKVPm YBVHPsRgE23ckVTtLVStJNU8GLQgXp2HRHIoS8Csfe NkpGxipbZkURWeVCIWTL9XQWjyimEenJXjjBdoII49nVlxUR7TBt0HUnWgTV2htp4AdMXzFh1CGYVhTT 8KISEyVSJuHAYgVHE7XJWxWxLrFYbdIEJjNCEaOHD0NMReJGHuTT6BMhTiTAXnXlanCIijXQKjZCIhtq 8YIYGtVMUfAUotRQMwBNGfXDSkSAofGFZiCOEgCBF0 CMBxAKMeHC1FQiDaDORxRRE2SNlaENOtNZDqnn8RVJMaVKJnTMQxPFErEZMlPDHwEPopJBQjBFF0VJN5 DENqZDJuPE9FBjMdLDOmEHZ3KrVpEKJhDYSixo3QCTVgJYBwRDu7JFRlHAAoTRZfTSifACNrTFFuNYU5 DWWrHLHkZX8MKvTlYRNdMES1WFToREEiBNSjyn1THH HpXRIiDmeqRRAhYMDyWXEtKHngENHyNDFlTmM4CANpRHDlJC1KAdJkACHmZWM1MdOmGPJyMDKmgx7IMQ FaQNSjLRX3ICQkIDOkPYXqGOolEOVyAEY8BLO1ZEYgXMQvKS6KHpNsHDVaRHFpMOdvPMKsGOOrxo8ZAE AkLSHmJYO6IrQoJKDoDPFzGZdzYYRtBOV0TBO5VSLb RVArKB4KDlBmQNZaEcsgESTlSIAeJOWoka2NVTUrXJMzKpN3IYVdXEYyYHBrWCsyNZVlHQC1LbOkMDEm QXBoQY8EIvLrZWUuLpr1JFgrKPPeQWYqfe1WAMNyKBJrMIywKBIbKIDoDLVhZFltFHSmPFS8KWh3DNBk OWLzWE3ONpTyPFGgNzuxIaobOHHwBRLeyj5EWXErDX JpNMX7BKHqOKXeMTTeLPguGKZpEKGeXTBvGEGtWUQdGF4VHpVjQJPvXyZhWUErSENrZWVjcc0YEMNeXY KnYEG9VjZkISTkCPGnCEr1uoEdtALhACr2EU4MR8MbrzExYvJJCg8Fy702GIIkZGKgDn7PE9loKf9mNM WpHDCCOy6QLNx2EYOzWGBjUzduSGOwVNC7NXW5AbC8 NqJtOHunCnk3PxV+NNpuDuKgMLTpB6D1PyFxWuxpPZL3ZhO1PmZ3KHArVehhQR7bLGPPYf3+DQpzdGFy uBzyKQBYSmXtRPFlSGlrDLMDVg8T ID Date Data Source [id number] 02/28/2021 12:47:10 PM EDT [facility] Name Value Range Interpretation Code Description Data Ema rce(s) Supporting Document(s) Progress Note [facility] KNILAs0lXhYXMoTx34/OXDcsJUIpp6VsMIfhKNu3KRvtWWXpB7EyGVI1yX6gLXJ7HUgYTaMnUbWxULXs lbm [file] CiAgICAgICAgICAgICAgICAgICAgICAgICAgICAgICAgICAgICAgICAgICAgICAgICAgICAgICAgICAg ICAgICAgICAgICAgICAgICAgICAgICAgICAgICAgIC AgICAgICAgICANCiAgICAgICAgICAgICAgICAgICAgICAgICAgICAgICAgICAgICAgICAgICAgICAgIC AgICAgICAgICAgICAgICAgICAgICAgICAgICAgICAgICAgICAgICAgICAgICAgICAgICANCiAgICAgIC AgICAgICAgICAgICAgICAgICAgICAgICAgICAgICAg ICAgICAgICAgICAgICAgICAgICAgICAgICAgICAgICAgICAgICAgICAgICAgICAgICAgICAgICAgICAg ICANCiAgICAgICAgICAgICAgICAgICAgICAgICAgICAgICAgICAgICAgICAgICAgICAgICAgICAgICAg ICAgICAgICAgICAgICAgICAgICAgICAgICAgICAgIC AgICAgICAgICAgICANCiAgICAgICAgICAgICAgICAgICAgICAgICAgICAgICAgICAgICAgICAgICAgIC AgICAgICAgICAgICAgICAgICAgICAgICAgICAgICAgICAgICAgICAgICAgICAgICAgICAgICANCiAgIC AgICAgICAgICAgICAgICAgICAgICAgICAgICAgICAg ICAgICAgICAgICAgICAgICAgICAgICAgICAgICAgICAgICAgICAgICAgICAgICAgICAgICAgICAgICAg ICAgICANCiAgICAgICAgICAgICAgICAgICAgICAgICAgICAgICAgICAgICAgICAgICAgICAgICAgICAg ICAgICAgICAgICAgICAgICAgICAgICAgICAgICAgIC AgICAgICAgICAgICAgICANCiAgICAgICAgICAgICAgICAgICAgICAgICAgICAgICAgICAgICAgICAgIC AgICAgICAgICAgICAgICAgICAgICAgICAgICAgICAgICAgICAgICAgICAgICAgICAgICAgICAgICANCi AgICAgICAgICAgICAgICAgICAgICAgICAgICAgICAg ICAgICAgICAgICAgICAgICAgICAgICAgICAgICAgICAgICAgICAgICAgICAgICAgICAgICAgICAgICAg ICAgICAgICANCiAgICAgICAgICAgICAgICAgICAgICAgICAgICAgICAgICAgICAgICAgICAgICAgICAg ICAgICAgICAgICAgICAgICAgICAgICAgICAgICAgIC AgICAgICAgICAgICAgICAgICANCjw/wHLfY8vczINnedZ2F4luQp2FBh1WVC2zm8TzQNTbZOxdkzOuRa xGRfAxWKMlRksUBjq2UDjcCT7FpIEsR3WtH0RmSEteGF7AKQBzNVExuTSoJZVcZGKwWpE4FXCoEGocOB 9LaWRzIFsgNSAwIFIgNyAwIFIgOSAwIFIgMTEgMCBS NBOrERGnJlHbZWltQE1Bb7KblKH0AAh+Ac3GZJ3cb3HlALfrFtSwMH2ghw6ZYRmBAxCbB1UlzqL1GZI4 GZGxQr0UTHNtDPRsoLKiAKLrBTGUYvFmT7CyiH97XZUBYa1+EKwldgRuSelMEzQ1BZOrt7QkOZe1FW2G DFBzJZo0kOQoFWTtY3Nus8PlCm90SEHvNlejWcghpT WFWNluJUbmcwtnBT8yKJAoAT2bXR8wCSSrEEDeCzExPFVCTS5HAZZmEFMggUBwYPLrFEJMRO4ADBpbFY X7KTDfftPrdNJrGQagMU9QTULglxGsBnjkTEHRPBq+Ie0YOL3xa6JlBArbGMLxQM8xrd1YFLtAKdYgJ0 S9oWMfB8H7VYgbSg4JYCDnIDCtXoYlBJRWKFxoLU4W CQ9qjdM8TC0AiWIaYJFwUARhaNZzBLw3Z15gnHYlHCcnUG9DZBZ+Earl+Lf9FXXVlRGMnFXXtDmPiSBLJ QqNlM2XpR5REl4NhN5WoOB76vRktmyWiDMboXG4WPQ0eLNNiJQNHAO7QvRFxkT6ufsFtNwWhGSXYBcPr S38ofFYcURKoBOS4NSSdTa1XIBHoV7VeqdOwoOoypk QmEWIsNHGSYK0MCLscyvRpvTMynCpqJN30vNtjJL7NWj2HFjUgWQ7ikk1ZpDUkAe8LJTEmMV3CHGBsOT EiZLBjTTX9ILDgNkGfUHukVDGcGFSrRPD7XPXtIUPiDC6XHvLeJQBlSlfxOJosQITpWGQhyr4CDWCdQC NyVXffQpWtXNElJSJgKHpcCUZoLZLxKNE4DBRsWXPh AZ6QMjPePSRtHBB8OeHzEAUrZIScca3FVILxYCBnWQQeFgWtEDWeSICtIVjoVMAdYLN6CLSeTHXtJEBx FT5KVwZqMZOsATwrZaWrNJYeRNLnvn2TTMJbESZaZXy4ShJlUYBrZZPkZCbxJPIzHYSuDCX4SDNnZJDp KV1FIqQuZWEaKRU1XmkdUZWkCRMdye2ITOLvZBLsYf f3HNWzJZSzSDDvSEgtNUNtCZYzYATjUHHdFHKpIS3TZhBwYMAzQQIwUiydFIScTZUvfp9CBIAwAVJyXS g1LaGlXRDuDUOkPGlcXXYuSYZ7OKl9LUMdAHRgRD8PGdKlQXWqSNTaEprtBRWsNUPdvi6EDUBxJXHwDx RzIfAzBSEfHCJoSBowOPIaIDT2BXT6EOQmALJdRJ6A SbAlULZqSQF1RWOyLTZwPBHpez4DFGPsAMZhIDS2UvKnGATkVZMsOWdkDSYjDUT9BVqwYCOnSMWwIR1K OmXxGKSkJwe6SHGnYKUvNEPqmt0BQRPfLBWlJGryLHIcXVXpHOGzDUwdQZDdOSX6JAs0KEAgMFZkXX0M OlKsJRIjAtd8HcvlNVLvGNUcqm8ZQJAxLTPlXXv8GS OtFMSlOTQeGIoiNHBwPQObTZZqTBDxWLItBZ9TSjMfKDZxMxYuQePgDWVsQPGqne0KzFJfwTncsy8HXU aDKn9RgSenXAOyBQdrDs3pgRNlWDSoXRFWPe1JftRvGZNqDUUZOHulXBXxXEMkEOQ8ZtBpOEN8GLK3ZM j8H3P7KPMxJXY9KKn2B8BlMeN1OXT3LMYiKGRzJVq1 AMHsFbsyUnYrNJY1VxelROn2WyB+TZ6kJIy+Fo7Ht3AkclS1toAlOHupWHApNX8YZFHSS0PGNp== ID Date Data Source [id number] 02/28/2021 01:25:31 PM EDT [facility] Name Value Range Interpretation Code Description Data Ema rce(s) Supporting Document(s) Hepatitis A virus IgM Ab [Presence] in Serum or Plasma by Im munoassay Non Reactive [facility] No acute infection, susceptible to infec tion. Hepatitis B virus core IgM Ab [Presence] in Serum or Plasma by Immunoassay Non Reactive [facility] IgM antibodies to HBc were not detected, does not exclude the possibility of exposure to HBV. Hepatitis C virus Ab [Presence] in Serum or Plasma by Immuno assay Non Reactive [facility] No serological evidence of active infect ion. If recent exposure is suspected, test for HCV RNA. Hepatitis B virus surface Ag [Presence] in Serum or Plasma b y Immunoassay Non Reactive [facility] No active or previous infection. Suscept ible to infection. ID Date Data Source [id number] 02/28/2021 12:39:41 PM [facility] Name Value Range Interpretation Code Description Data [facility] rce(s) Supporting Document(s) Leukocytes [#/volume] in Blood by Automated count 4.0 10*3/uL 4-10 [facility] Erythrocytes [#/volume] in Blood by Automated count 2.97 10*6/uL 4.6- 6.1 L [facility] Hemoglobin [Mass/volume] in Blood 8.4 g/dL 13.5-18 L [facility] Hematocrit [Volume Fraction] of Blood by Automated count 25.4 % 4 1-53 L [facility] Erythrocyte mean corpuscular volume [Entitic volume] by Auto mated count 85.4 fL 80-96 [facility] Erythrocyte mean corpuscular hemoglobin [Entitic mass] by Automated count 28.3 pg 27-33 [facility] Erythrocyte mean corpuscular hemoglobin concentration [Mass/volume] by Automated count 33.1 g/dL 32.0-[facility] width [Ratio] by Automated count 16.7 % 11.5-14.5 H [facility] Platelets [#/volume] in Blood by Automated count 190 10*3/uL 150-400 [facility] Differential cell count method - Blood [facility] Neutrophils/100 leukocytes in Blood by Automated count 74 % [facility] Lymphocytes/100 leukocytes in Blood by Automated count 6 % [facility] Monocytes/100 leukocytes in Blood by Automated count 12 % [facility] Eosinophils/100 leukocytes in Blood by Automated count 6 % [facility] Basophils/100 leukocytes in Blood by Automated count 2 % [facility] Neutrophils [#/volume] in Blood by Automated count 3.00 10*3/uL 1.8-7 .0 [facility] Lymphocytes [#/volume] in Blood by Automated count 0.25 10*3/uL 1.2-4 .0 L [facility] Monocytes [#/volume] in Blood by Automated count 0.46 10*3/uL 0-0.8 [facility] Eosinophils [#/volume] in Blood by Automated count 0.26 10*3/uL 0-0.5 [facility] Basophils [#/volume] in Blood by Automated count 0.06 10*3/uL 0-0.2 [facility] Nucleated erythrocytes/100 leukocytes [Ratio] in Blood by Automated count 0 /100{WBCs} 0-0 [facility] ID Date Data Source [id number] [facility] Code Description Data Ema rce(s) Supporting Document(s) Prothrombin time (PT) 14.6 s 11.6-14.0 H [facility] INR in Platelet poor plasma by Coagulation assay 1.18 [facility] Routine intensity oral anticoagulation I NR is typically 2.0-3.0. Target INR must be clinically individualized. ID Date Data Source [id number] 02/28/2021 12:59:20 PM [facility] Value Range Interpretation Code Description Data Ema rce(s) Supporting Document(s) aPTT in Platelet poor plasma by Coagulation assay 33.5 s 24.0-33. 0 [facility] ID Date Data Source [id number] 02/28/2021 01:24:10 PM [facility] Value Range Interpretation Code Description Data Ema rce(s) Supporting Document(s) [id number] [Mass/volume] in Serum or Plasma 45 ng/mL <9 [facility] ID Date Data Source [id number] 02/28/2021 01:24:10 PM [facility] Value Range Interpretation Code Description Data Ema rce(s) Supporting Document(s) Albumin [Mass/volume] in Serum or Plasma by Bromocresol green (BCG) dye binding method 3.4 g/dL 3.5[facility].2 [facility] Bil[facility].total [Mass/volume] in Serum or Plasma 0.7 mg/dL <1.2 [facility] Calcium [Mass/volume] in Serum or Plasma 10.6 mg/dL 8.8-10.2 H [facility] Chloride [Moles/volume] in Serum or Plasma 97 mmol/L 98-107 L [facility] Creatinine [Mass/volume] in Serum or Plasma 0.94 mg/dL 0.70-1.20 [facility] Glucose [Mass/volume] in Serum or Plasma 138 mg/dL 70-140 [facility] Alkaline phosphatase [Enzymatic activity/volume] in Serum or Plasma 168 U/L 40-129 H [facility] Potassium [Moles/volume] in Serum or Plasma 4.1 mmol/L 3.4-5.1 [facility] Protein [Mass/volume] in Serum or Plasma 7.1 g/dL 6.4-8.3 [facility] Sodium [Moles/volume] in Serum or Plasma 130 mmol/L 136-145 L [facility] Aspartate aminotransferase [Enzymatic activity/volume] in Serum or Plasma 60 U/L <40 [facility] Urea nitrogen [Mass/volume] in Serum or Plasma 17 mg/dL 8-23 [facility] Osmolality of Serum or Plasma by calculation 274 mosm/kg 275-300 L [facility] Creatinine/Urea nitrogen [Mass Ratio] in Serum or Plasma 18 [facility] Bicarbonate [Moles/volume] in Serum 22 mmol/L 22-29 [facility] Alanine aminotransferase [Enzymatic activity/volume] in Seru m or Plasma 36 U/L <41 [facility] Anion gap 3 in Serum or Plasma 11 mmol/L 8-15 [facility] Glomerular filtration rate/1.73 sq M pre dicted among non-blacks [Volume Rate/Area] in Serum or Plasma by Creatinine-based formula (MDRD) 77 mL/min/1.73m2 >60 [facility] Glomerular filtration rate/1.73 sq M pre dicted among blacks [Volume Rate/Area] in Serum or Plasma by Creatinine-based formula (MDRD) 90 mL/min/1.73m2 >60 [facility] ID Date Data Source [id number] 02/18/2021 08:24:57 AM EDT [facility] Name Value Range Interpretation Code Description Data Ema rce(s) Supporting Document(s) POC GLUCOSE 124 mg/dL (70-99) H [facility] PERFORMED BY CLINICAL STAFF ID Date Data Source [id number] 02/18/2021 07:04:16 AM EDT [facility] Name Value Range Interpretation Code Description Data Ema rce(s) Supporting Document(s) SODIUM 141 mmol/L (136-145) [facility] POTASSIUM 3.8 mmol/L (3.6-5.2) [facility] CHLORIDE 111 mmol/L (100-108) H [facility] CO2 25 mmol/L (22-31) [facility] ANION GAP 5 mmol/L (7-16) L [facility] UREA NITROGEN 13 mg/dL (7-24) [facility] CREATININE 0.75 mg/dL (0.80-1.30) L [facility] BUN/CREAT RATIO 17.3 RATIO (10.0-20.0) [facility] GLUCOSE 137 mg/dL (70-99) H [facility] CALCIUM 9.0 mg/dL (8.4-10.2) [facility] TOTAL PROTEIN 5.5 g/dL (6.4-8.2) L [facility] ALBUMIN 1.8 g/dL (3.2-4.5) L [facility] GLOBULIN 3.7 g/dL (2.7-4.3) [facility] ALB/GLOB RATIO 0.5 RATIO [facility] ALKALINE PHOSPHATASE 139 U/L (45-117) H [facility] BILIRUBIN,TOTAL 0.8 mg/dL (0.0-1.0) [facility] PLEASE NOTE:Total bilirubin results may be falselyelevated in patients taking Eltrombopag. AST (SGOT) 63 U/L (11-39) H [facility] ALT (SGPT) 39 U/L (12-78) [facility] GFR >60 ml/min/1.73m2 (>59) [facility] GFR ( AMER) >60 ml/min/1.73m2 (>59) [facility] GFR INTERPRETATION [facility] --NORMAL KIDNEY FUNCTION OR MILD DISEASE - GFR >OR= 60CHRONIC KIDNEY DISEASE - GFR 15 - 59RENAL FAILURE - GFR <15 Est. GFR calculation based on the MDRDstudy equation, which assumes a steadystate for creatinine. Est. GFR should notbe used for medication dosing. ID Date Data Source [id number] 02/18/2021 06:27:58 AM EDT [facility] Name Value Range Interpretation Code Description Data Ema rce(s) Supporting Document(s) WBC 3.0 10*3/uL (4.1-11.0) L [facility] RBC 2.62 10*6/uL (4.60-6.10) L [facility] HGB 7.4 g/dL (13.5-18.0) L [facility] HCT 22.4 % (41.0-53.0) L [facility] MCV 85.4 fL (80.0-95.0) [facility] MCH 28.3 pg (27.0-32.0) [facility] MCHC 33.1 g/dL (32.0-36.0) [facility] RDW 16.2 % (10.5-14.5) H [facility] PLT 125 10*3/uL (150-450) L [facility] MPV 8.6 fL (7.1-10.7) [facility] ID Date Data Source [id number] 02/18/2021 02:59:19 AM EDT [facility] Name Value Range Interpretation Code Description Data Ema rce(s) Supporting Document(s) POC GLUCOSE 126 mg/dL (70-99) H [facility] NOTIFIED NURSEPERFORMED BY CLINICAL S TAFF ID Date Data Source [id number] 02/17/2021 08:44:14 PM EDT [facility] Name Value Range Interpretation Code Description Data Ema rce(s) Supporting Document(s) POC GLUCOSE 183 mg/dL (70-99) H [facility] NOTIFIED NURSEPERFORMED BY CLINICAL S TAFF ID Date Data Source [id number] 02/17/2021 08:20:47 PM EDT [facility] Name Value Range Interpretation Code Description Data Ema rce(s) Supporting Document(s) WBC 3.8 10*3/uL (4.1-11.0) L [facility] RBC 3.01 10*6/uL (4.60-6.10) L [facility] HGB 8.3 g/dL (13.5-18.0) L [facility] HCT 25.6 % (41.0-53.0) L [facility] MCV 85.3 fL (80.0-95.0) [facility] MCH 27.5 pg (27.0-32.0) [facility] MCHC 32.2 g/dL (32.0-36.0) [facility] RDW 16.4 % (10.5-14.5) H [facility] PLT 157 10*3/uL (150-450) [facility] MPV 7.9 fL (7.1-10.7) [facility] ID Date Data Source [id number] 02/17/2021 05:44:15 PM EDT [facility] Name Value Range Interpretation Code Description Data Ema rce(s) Supporting Document(s) POC GLUCOSE 141 mg/dL (70-99) H [facility] NOTIFIED NURSEPERFORMED BY CLINICAL S TAFF ID Date Data Source [id number] 02/17/2021 02:11:35 PM EDT [facility] Name Value Range Interpretation Code Description Data Ema rce(s) Supporting Document(s) WBC 3.3 10*3/uL (4.1-11.0) L [facility] RBC 2.86 10*6/uL (4.60-6.10) L [facility] HGB 7.9 g/dL (13.5-18.0) L [facility] HCT 24.5 % (41.0-53.0) [facility] MCV 85.6 fL (80.0-95.0) [facility] MCH 27.7 pg (27.0-32.0) [facility] MCHC 32.3 g/dL (32.0-36.0) [facility] RDW 16.2 % (10.5-14.5) [facility] PLT 136 10*3/uL (150-450) [facility] MPV 8.9 fL (7.1-10.7) [facility] ID Date Data Source [id number] 02/17/2021 12:45:18 PM EDT [facility] Name Value Range Interpretation Code Description Data Ema rce(s) Supporting Document(s) POC GLUCOSE 151 mg/dL (70-99) [facility] PERFORMED BY CLINICAL STAFF ID Date Data Source [id number] 02/17/2021 09:02:18 AM EDT [facility] Name Value Range Interpretation Code Description Data Ema rce(s) Supporting Document(s) POC GLUCOSE 120 mg/dL (70-99) [facility] PERFORMED BY CLINICAL STAFF ID Date Data Source [id number] 02/17/2021 08:36:01 AM EDT [facility] Name Value Range Interpretation Code Description Data Ema rce(s) Supporting Document(s) SODIUM 143 mmol/L (136-145) [facility] POTASSIUM 3.6 mmol/L (3.6-5.2) [facility] CHLORIDE 113 mmol/L (100-108) [facility] CO2 25 mmol/L (22-31) [facility] ANION GAP 5 mmol/L (7-16) L [facility] UREA NITROGEN 16 mg/dL (7-24) [facility] CREATININE 0.80 mg/dL (0.80-1.30) [facility] BUN/CREAT RATIO 20.0 RATIO (10.0-20.0) [facility] GLUCOSE 126 mg/dL (70-99) [facility] CALCIUM 8.6 mg/dL (8.4-10.2) [facility] TOTAL PROTEIN 5.7 g/dL (6.4-8.2) L [facility] ALBUMIN 1.9 g/dL (3.2-4.5) L [facility] GLOBULIN 3.8 g/dL (2.7-4.3) [facility] ALB/GLOB RATIO 0.5 RATIO [facility] ALKALINE PHOSPHATASE 141 U/L (45-117) [facility] BILIRUBIN,TOTAL 1.2 mg/dL (0.0-1.0) [facility] PLEASE NOTE:Total bilirubin results may be falselyelevated in patients taking Eltrombopag. AST (SGOT) 56 U/L (11-39) [facility] ALT (SGPT) 37 U/L (12-78) [facility] GFR >60 ml/min/1.73m2 (>59) [facility] GFR ( AMER) >60 ml/min/1.73m2 (>59) [facility] GFR INTERPRETATION [facility] --NORMAL KIDNEY FUNCTION OR MILD DISEASE - GFR >OR= 60CHRONIC KIDNEY DISEASE - GFR 15 - 59RENAL FAILURE - GFR <15 Est. GFR calculation based on the MDRDstudy equation, which assumes a steadystate for creatinine. Est. GFR should notbe used for medication dosing. ID Date Data Source [id number] 02/17/2021 08:02:19 AM EDT [facility] Name Value Range Interpretation Code Description Data Ema rce(s) Supporting Document(s) WBC 3.0 10*3/uL (4.1-11.0) L [facility] [place] RBC 2.69 10*6/uL (4.60-6.10) L [facility] HGB 7.4 g/dL (13.5-18.0) L [facility] HCT 22.8 % (41.0-53.0) L [facility] PERFORMED AT [address] [place] [address] MCV 84.6 fL (80.0-95.0) [facility] MCH 27.6 pg (27.0-32.0) [facility] MCHC 32.6 g/dL (32.0-36.0) [facility] RDW 16.5 % (10.5-14.5) [facility] PLT 129 10*3/uL (150-450) L [facility] MPV 8.7 fL (7.1-10.7) [facility] ID Date Data Source [id number] 02/17/2021 04:40:08 AM EDT [facility] Name Value Range Interpretation Code Description Data Ema rce(s) Supporting Document(s) POC GLUCOSE 125 mg/dL (70-99) H [facility] PERFORMED BY CLINICAL STAFF ID Date Data Source [id number] 02/16/2021 10:37:35 PM EDT [facility] Name Value Range Interpretation Code Description Data Ema rce(s) Supporting Document(s) POC GLUCOSE 169 mg/dL (70-99) H [facility] NOTIFIED NURSEPERFORMED BY CLINICAL S TAFF ID Date Data Source [id number] 02/16/2021 08:37:46 PM EDT [facility] Name Value Range Interpretation Code Description Data Ema rce(s) Supporting Document(s) WBC 4.2 10*3/uL (4.1-11.0) [facility] [place] RBC 3.03 10*6/uL (4.60-6.10) L [facility] HGB 8.4 g/dL (13.5-18.0) L [facility] HCT 25.9 % (41.0-53.0) L [facility] PERFORMED AT [address] [place] [address] MCV 85.3 fL (80.0-95.0) [facility] MCH 27.5 pg (27.0-32.0) [facility] MCHC 32.3 g/dL (32.0-36.0) [facility] RDW 16.0 % (10.5-14.5) H [facility] PLT 147 10*3/uL (150-450) L [facility] MPV 8.5 fL (7.1-10.7) [facility] ID Date Data Source [id number] 02/16/2021 05:27:15 PM EDT [facility] Name Value Range Interpretation Code Description Data Ema rce(s) Supporting Document(s) POC GLUCOSE 159 mg/dL (70-99) H [facility] PERFORMED BY CLINICAL STAFF ID Date Data Source [id number] 02/16/2021 02:11:39 PM EDT [facility] Name Value Range Interpretation Code Description Data Ema rce(s) Supporting Document(s) SODIUM 141 mmol/L (136-145) [facility] POTASSIUM 3.7 mmol/L (3.6-5.2) [facility] CHLORIDE 111 mmol/L (100-108) H [facility] CO2 24 mmol/L (22-31) [facility] ANION GAP 6 mmol/L (7-16) L [facility] UREA NITROGEN 17 mg/dL (7-24) [facility] CREATININE 0.84 mg/dL (0.80-1.30) [facility] BUN/CREAT RATIO 20.2 RATIO (10.0-20.0) [facility] GLUCOSE 157 mg/dL (70-99) H [facility] CALCIUM 9.5 mg/dL (8.4-10.2) [facility] GFR >60 ml/min/1.73m2 (>59) [facility] GFR ( AMER) >60 ml/min/1.73m2 (>59) [facility] GFR INTERPRETATION [facility] --NORMAL KIDNEY FUNCTION OR MILD DISEASE - GFR >OR= 60CHRONIC KIDNEY DISEASE - GFR 15 - 59RENAL FAILURE - GFR <15 Est. GFR calculation based on the MDRDstudy equation, which assumes a steadystate for creatinine. Est. GFR should notbe used for medication dosing. ID Date Data Source [id number] 02/16/2021 01:45:41 PM EDT [facility] Name Value Range Interpretation Code Description Data Ema rce(s) Supporting Document(s) WBC 3.5 10*3/uL (4.1-11.0) L [facility] [place] RBC 2.55 10*6/uL (4.60-6.10) L [facility] HGB 7.0 g/dL (13.5-18.0) L [facility] HCT 21.6 % (41.0-53.0) L [facility] PERFORMED AT [address] [place] [place] [address] MCV 84.4 fL (80.0-95.0) [facility] MCH 27.4 pg (27.0-32.0) [facility] MCHC 32.5 g/dL (32.0-36.0) [facility] RDW 16.4 % (10.5-14.5) H [facility] PLT 147 10*3/uL (150-450) L [facility] MPV 8.8 fL (7.1-10.7) [facility] ID Date Data Source [id number] 02/16/2021 12:12:49 PM EDT [facility] Name Value Range Interpretation Code Description Data Ema rce(s) Supporting Document(s) POC GLUCOSE 182 mg/dL (70-99) H [facility] NOTIFIED NURSEPERFORMED BY CLINICAL S TAFF ID Date Data Source [id number] 02/16/2021 08:47:28 AM EDT [facility] Name Value Range Interpretation Code Description Data Ema rce(s) Supporting Document(s) POC GLUCOSE 141 mg/dL (70-99) H [facility] PERFORMED BY CLINICAL STAFF ID Date Data Source [id number] 02/16/2021 03:13:38 AM EDT [facility] Name Value Range Interpretation Code Description Data Ema rce(s) Supporting Document(s) POC GLUCOSE 126 mg/dL (70-99) H [facility] E[facility] PERFORMED BY CLINICAL STAFF ID Date Data Source [id number] 02/16/2021 07:25:00 AM EDT [facility] DATE OF EXAM: 02/16/2021HEST, SINGLE PO RTABLE VIEW. INDICATION: Chest pain COMPARISON: 11/18/2020 TECHNIQUE: A portable radiograph of the chest was obtained. FINDINGS: No focal consolidation, pleural effusions or pulmonary edema is seen. The cardiomediastinal silhouette is mildly prominent. Visualized osseous structures are within normal limits. IMPRESSION: No acute abnormality is seen. Professional interpretation performed at [facility] .End of diagnostic report for accession: [id number] Interpreted: David Bueno MDTranscribed: 02/16/2021 07:25 AMSigned: 0 02/16/2021 07:25 AM David Bueno MD [facility] # [id number] BILL # [id number] Name Value Range Interpretation Code Description Data Ema rce(s) Supporting Document(s) ID Date Data Source [id number] 02/17/2021 12:48:06 AM EDT [facility] SPEC EXP DATE 02/19/2021ATI ENT ABO/Rh A POSITIVEANTIBODY SCREEN NEGATIVETESTING SITE PERFORMED AT [address] [place] [address] BANK COMMENT BLOOD TYPE CONFIRMED.UNIT NUMBER [id number] COMPONENT TYPE LEUKOPOOR RED CELLSUNIT DIVISION 00STATUS OF UNIT TRANSFUSEDTRANSFUSION STATUS OK TO TRANSFUSECROSSMATCH RESULT COMPATIBLE Name Value Range Interpretation Code Description Data Ema rce(s) Supporting Document(s) TYPE AND SCREEN [facility] PATIENT ABO/Rh A POSITIVE ID Date Data Source [id number] 02/16/2021 12:54:29 AM EDT [facility] [place] Name Value Range Interpretation Code Description Data Ema rce(s) Supporting Document(s) PT 12.1 s (9.2-11.9) H [facility] PERFORMED AT [address] [place] [address] INR 1.16 [facility] SUGGESTED THERAPEUTIC RANGES USING INR F ORSTABILIZED ANTICOAGULATED PATIENTS:STANDARD DOSE THERAPY INR 2.0-3.0 DVT, PE, PREVENT DVT OR EMBOLISMHIGH DOSE THERAPY INR 2.5-3.5 PREVENT EMBOLISM FROM MECHANICAL HEART VALVE ID Date Data Source [id number] 02/16/2021 12:44:12 AM EDT [facility] Name Value Range Interpretation Code Description Data Ema rce(s) Supporting Document(s) TOTAL PROTEIN 6.7 g/dL (6.4-8.2) [facility] ALBUMIN 2.2 g/dL (3.2-4.5) L [facility] GLOBULIN 4.5 g/dL (2.7-4.3) H [facility] ALB/GLOB RATIO 0.5 RATIO [facility] BILIRUBIN,TOTAL 1.3 mg/dL (0.0-1.0) H [facility] PLEASE NOTE:Total bilirubin results may be falselyelevated in patients taking Eltrombopag. BILIRUBIN,CONJUGATED 0.4 mg/dL (0.0-0.3) H [facility] BILIRUBIN,UNCONJ. 0.9 mg/dL (0.0-0.7) H [facility] ALKALINE PHOSPHATASE 155 U/L (45-117) [facility] AST (SGOT) 63 U/L (11-39) H [facility] ALT (SGPT) 44 U/L (12-78) [facility] ID Date Data Source [id number] 02/16/2021 12:44:12 AM EDT [facility] Name Value Range Interpretation Code Description Data Ema rce(s) Supporting Document(s) TROPONIN I <0.05 ng/mL (<0.05) [facility] [place] Less than 0.05: Myocardial injury unlike lyGreater than or equal to 0.05: Highly suggestive of myocardial injuryCorrelation with rise and/or fall ofserial troponins, clinical symptomsand ECG changes is necessary. ID Date Data Source [id number] 02/16/2021 12:44:12 AM EDT [facility] Name Value Range Interpretation Code Description Data Ema rce(s) Supporting Document(s) SODIUM 140 mmol/L (136-145) [facility] POTASSIUM 4.0 mmol/L (3.6-5.2) [facility] CHLORIDE 112 mmol/L (100-108) H [facility] CO2 22 mmol/L (22-31) [facility] ANION GAP 6 mmol/L (7-16) L [facility] UREA NITROGEN 18 mg/dL (7-24) [facility] CREATININE 0.83 mg/dL (0.80-1.30) [facility] BUN/CREAT RATIO 21.7 RATIO (10.0-20.0) H [facility] GLUCOSE 131 mg/dL (70-99) H [facility] CALCIUM 9.7 mg/dL (8.4-10.2) [facility] GFR >60 ml/min/1.73m2 (>59) [facility] GFR ( AMER) >60 ml/min/1.73m2 (>59) [facility] GFR INTERPRETATION [facility] --NORMAL KIDNEY FUNCTION OR MILD DISEASE - GFR >OR= 60CHRONIC KIDNEY DISEASE - GFR 15 - 59RENAL FAILURE - GFR <15 Est. GFR calculation based on the MDRDstudy equation, which assumes a steadystate for creatinine. Est. GFR should notbe used for medication dosing. ID Date Data Source [id number] 02/16/2021 12:28:08 AM EDT [facility] Name Value Range Interpretation Code Description Data Ema rce(s) Supporting Document(s) WBC 4.4 10*3/uL (4.1-11.0) [facility] [place] RBC 3.03 10*6/uL (4.60-6.10) L [facility] HGB 8.2 g/dL (13.5-18.0) L [facility] HCT 25.3 % (41.0-53.0) L [facility] MCV 83.7 fL (80.0-95.0) [facility] MCH 27.0 pg (27.0-32.0) [facility] MCHC 32.2 g/dL (32.0-36.0) [facility] RDW 16.2 % (10.5-14.5) H [facility] PLT 164 10*3/uL (150-450) [facility] MPV 9.2 fL (7.1-10.7) [facility] NEUT % 72.8 % (35.0-75.0) [facility] LYMPH % 8.6 % (16.0-52.0) L [facility] MONO % 10.8 % (0.0-8.0) H [facility] EOS % 7.3 % (0.0-5.0) H [facility] BASO % 0.5 % (0.0-4.0) [facility] NEUT # 3.2 10*3/uL (1.8-7.7) [facility] LYMPH # 0.4 10*3/uL (1.2-4.8) L [facility] MONO # 0.5 10*3/uL (0.0-0.8) [facility] Eosinophils [#/volume] in Blood by Automated count 0.3 10*3/uL (0.0-0 .5) [facility] BASO # 0.0 10*3/uL (0.0-0.2) [facility] ID Date Data Source [id number] 02/17/2021 07:11:40 AM EDT [facility] SPECIMEN DESCRIPTION URINE, COLLE CTION METHOD NOT SPECIFIEDCULTURE RESULTS NO GROWTHREPORT STATUS FINAL 02/17/2021 Name Value Range Interpretation Code Description Data Ema rce(s) Supporting Document(s) ID Date Data Source [id number] 02/16/2021 01:00:13 AM EDT [facility] Name Value Range Interpretation Code Description Data Ema rce(s) Supporting Document(s) URINE WBC (0-5) [facility] URINE RBC (0-2) [facility] BACTERIA 1+ [HPF] [facility] MUCUS 1+ [HPF] [facility] ID Date Data Source [id number] 02/16/2021 12:42:47 AM EDT [facility] Name Value Range Interpretation Code Description Data Ema rce(s) Supporting Document(s) COLOR [facility] PERFORMED AT [address] [facility] [address] APPEARANCE [facility] SPEC GRAV URINE 1.031 (1.003-1.030) H [facility] PH URINE 6.5 (5.0-7.5) [facility] LEUK ESTERASE (NEG) A [facility] NITRITE URINE (NEG) [facility] PROTEIN URINE (NEG) [facility] GLUCOSE URINE (NEG) [facility] KETONE URINE (NEG) [facility] [place] UROBILINOGEN 0.2 mg/dL (0-1.0) [facility] [place] BILIRUBIN URINE (NEG) [facility] BLOOD/HGB URINE 2+ (NEG) A [facility] ID Date Data Source [id number] 02/15/2021 05:36:00 PM EDT [facility] Name Value Range Interpretation Code Description Data Ema rce(s) Supporting Document(s) SARS coronavirus 2 RNA [Presence] in Res piratory specimen by JUSTEN with probe detection [facility]GAT[facility] lab was ordered by [facility] a nd reported by [facility]. ID Date Data Source [id number] 02/14/2021 10:27:00 AM EDT [facility] Name Value Range Interpretation Code Description Data Ema rce(s) Supporting Document(s) Glucose [Presence] in Urine Laboratory test result [facility] ([facility]) Protein [Presence] in Urine by Test strip 100 mg/dL [facility] ([facility]) Ua Nitrite Laboratory test result [facility] ([facility]) Blood [Presence] in Urine by Visual Laboratory test result [facility] ([facility]) Ua Leuko Laboratory test result [facility] ([facility]) Color of Urine Laboratory test result [facility] ([facility]) Ketones [Presence] in Urine by Test strip Laboratory test result [facility] ([facility]) Clarity of Urine Laboratory test result [facility] ([facility]) Ua Specific Amelia 1.025 1.003-1.030 [facility] NT ([facility]) pH of Urine by Test strip 7.0 5.0-7.5 [facility] ([facility]) Bilirubin.total [Presence] in Urine by Test strip Laboratory test res ult [facility] ([facility]) Urobilinogen [Mass/volume] in Urine by Test strip 1.0 E.U./dL 0.0-1.0 [facility] ([facility]) ID Date Data Source [id number] 02/13/2021 05:53:00 PM [facility] Surgical Pathology ReportName: Clyde LINARES OBERTMRN: [id number] Number: [id number] Date: 02/12/2021 00:00Received Date: 02/12/2021 14:16Physician(s): АННА BRAUN MD ADJAPONG, OPOKU, MDSpecimen(s) ReceivedA: Material received for consultation, [facility], [id number] HistoryLiver bx ([id number]). Right lobe liver mass. Confirm HCC. Consultation.DiagnosisLIVER, NEEDLE BIOPSY ([id number], 02/07/21): HEPATOCELLULAR CARCINOMA,MODERATELY DIFFERENTIATED. CIRRHOSIS. (See microscopic description).Electronically Signed By Donnie West M.D., Attending Pathologist02/13/2021 17:53:[address] [facility] in [place], [place], is 1 H and Estained slide and 6 specially stained slides, 1 paraffin block, [id number], with the corresponding pathology report. Microscopic [...] developed and their performance characteristics determined by [facility] Pathology department. They have not been cleared or approved by the USFood and Drug Administration. The FDA has determined that such clearanceor approval is not necessary. Name Value Range Interpretation Code Description Data Ema rce(s) Supporting Document(s) ID Date Data Source [id number] 01/31/2021 06:21:13 AM EDT [facility] Name Value Range Interpretation Code Description Data Ema rce(s) Supporting Document(s) SODIUM 139 mmol/L (136-145) [facility] POTASSIUM 3.7 mmol/L (3.6-5.2) [facility] CHLORIDE 106 mmol/L (100-108) [facility] CO2 24 mmol/L (22-31) [facility] ANION GAP 9 mmol/L (7-16) [facility] UREA NITROGEN 17 mg/dL (7-24) [facility] CREATININE 0.95 mg/dL (0.80-1.30) [facility] BUN/CREAT RATIO 17.9 RATIO (10.0-20.0) [facility] GLUCOSE 119 mg/dL (70-99) H [facility] CALCIUM 9.4 mg/dL (8.4-10.2) [facility] GFR >60 ml/min/1.73m2 (>59) [facility] GFR ( AMER) >60 ml/min/1.73m2 (>59) [facility] GFR INTERPRETATION [facility] --NORMAL KIDNEY FUNCTION OR MILD DISEASE - GFR >OR= 60CHRONIC KIDNEY DISEASE - GFR 15 - 59RENAL FAILURE - GFR <15 Est. GFR calculation based on the MDRDstudy equation, which assumes a steadystate for creatinine. Est. GFR should notbe used for medication dosing. ID Date Data Source [id number] 01/31/2021 05:49:23 AM EDT [facility] [place] Name Value Range Interpretation Code Description Data Ema rce(s) Supporting Document(s) WBC 3.6 10*3/uL (4.1-11.0) L [facility] [place] RBC 2.70 10*6/uL (4.60-6.10) L [facility] HGB 7.3 g/dL (13.5-18.0) L [facility] HCT 22.2 % (41.0-53.0) L [facility] MCV 82.2 fL (80.0-95.0) [facility] MCH 27.2 pg (27.0-32.0) [facility] MCHC 33.1 g/dL (32.0-36.0) [facility] RDW 16.2 % (10.5-14.5) H [facility] PLT 178 10*3/uL (150-450) [facility] MPV 8.2 fL (7.1-10.7) [facility] ID Date Data Source [id number] 01/31/2021 02:58:00 AM EDT [facility] Name Value Range Interpretation Code Description Data Ema rce(s) Supporting Document(s) SARS coronavirus 2 RNA [Presence] in Res piratory specimen by JUSTEN with probe detection NOT DETECTED [facility] This lab was reported by [facility]. ID Date Data Source [id number] 01/31/2021 03:56:47 AM EDT [facility] macario [place] Name Value Range Interpretation Code Description Data Ema rce(s) Supporting Document(s) SPECIMEN DESCRIPTION [facility] INFLUENZA A (NEG) [facility] [facility] INFLUENZA B (NEG) [facility] [place] [facility] RSV (NEG) [facility] COMMENT [facility] THE [place] FDA HAS MADE THIS TEST AVAILABL REGINANDER AN EMERGENCY USE AUTHORIZATION(EUA) FOR THE DETECTION AND/OR DIAGNOSISOF THE VIRUS THAT CAUSES COVID-19.[facility] [address] [facility] [address] COVID19 RESULT (NDET) [facility] [place] THIS ASSAY AMPLIFIES AND DETECTSTHE TARG ET RNA USING REAL-TIME PCR.TESTING PERFORMED ON [employer] GENEXPERTNEGATIVE 2019_NCOV RT-PCR RESULTS DONOT PRECLUDE 2019_NCOV INFECTION ANDSHOULD NOT BE USED THE SOLE BASISFOR PATIENT MANAGEMENT DECISIONS. FIRST TEST [facility] [employer]ED IN [facility] SYMPTOMATIC [facility] Efe Kwong DATE OF SYMPT ONSET [facility] HOSPITALIZED [facility] ICU [facility] CONGREGATE CARE SET [facility] [place] ID Date Data Source [id number] 01/31/2021 08:36:00 AM EDT [facility] DATE OF EXAM: 01/31/2021XAM: CT [...] above. A contemporaneous report was provided by [facility] at the time of this examination, reporting similar findings. Professional interpretation performed at [facility] .End of diagnostic report for accession: [id number] Interpreted: Shahnaz Ramos MDTranscribed: 01/31/2021 08:23 AMSigned: 01/31/2021 08:36 AM Shahnaz Ramos MD [facility] # [id number] [facility] # [id number] Name Value Range Interpretation Code Description Data Ema rce(s) Supporting Document(s) ID Date Data Source [id number] 02/01/2021 09:19:09 AM EDT [facility] SPECIMEN DESCRIPTION URINE, COLLE CTION METHOD NOT SPECIFIEDCULTURE RESULTS MIXED UROGENITAL DEIRDRE; PLEASE SUBMIT A NEW SPEC IMEN IF CLINICALLY INDICATED.REPORT STATUS FINAL 02/01/2021 Name Value Range Interpretation Code Description Data Ema rce(s) Supporting Document(s) ID Date Data Source [id number] 01/31/2021 12:50:39 AM EDT [facility] Name Value Range Interpretation Code Description Data Ema rce(s) Supporting Document(s) URINE WBC (0-5) [facility] URINE RBC (0-2) [facility] ID Date Data Source [id number] 01/31/2021 12:39:03 AM EDT [facility] Name Value Range Interpretation Code Description Data Ema rce(s) Supporting Document(s) COLOR [facility] TESTING PERFORMED ON CENTRIFUGED SAMPLE APPEARANCE [facility] SPEC GRAV URINE 1.012 (1.003-1.030) [facility] PH URINE 6.5 (5.0-7.5) [facility] LEUK ESTERASE 2+ (NEG) A [facility] NITRITE URINE (NEG) [facility] PROTEIN URINE 2+ (NEG) A [facility] GLUCOSE URINE (NEG) [facility] KETONE URINE (NEG) [facility] UROBILINOGEN 0.2 mg/dL (0-1.0) [facility] BILIRUBIN URINE (NEG) [facility] BLOOD/HGB URINE 3+ (NEG) A [facility] ID Date Data Source [id number] 01/31/2021 12:42:08 AM EDT [facility] Name Value Range Interpretation Code Description Data Ema rce(s) Supporting Document(s) SODIUM 137 mmol/L (136-145) [facility] POTASSIUM 3.7 mmol/L (3.6-5.2) [facility] CHLORIDE 105 mmol/L (100-108) [facility] CO2 23 mmol/L (22-31) [facility] ANION GAP 9 mmol/L (7-16) [facility] UREA NITROGEN 17 mg/dL (7-24) [facility] CREATININE 1.02 mg/dL (0.80-1.30) [facility] BUN/CREAT RATIO 16.7 RATIO (10.0-20.0) [facility] GLUCOSE 147 mg/dL (70-99) H [facility] CALCIUM 9.6 mg/dL (8.4-10.2) [facility] GFR >60 ml/min/1.73m2 (>59) [facility] GFR ([facility]) >60 ml/min/1.73m2 (>59) [facility] GFR INTERPRETATION [facility] --NORMAL KIDNEY FUNCTION OR MILD DISEASE - GFR >OR= 60CHRONIC KIDNEY DISEASE - GFR 15 - 59RENAL FAILURE - GFR <15 Est. GFR calculation based on the MDRDstudy equation, which assumes a steadystate for creatinine. Est. GFR should notbe used for medication dosing. ID Date Data Source [id number] 01/31/2021 12:29:39 AM EDT [facility] Name Value Range Interpretation Code Description Data Ema rce(s) Supporting Document(s) WBC 4.0 10*3/uL (4.1-11.0) L [facility] RBC 2.83 10*6/uL (4.60-6.10) L [facility] HGB 7.6 g/dL (13.5-18.0) L [facility] HCT 23.2 % (41.0-53.0) L [facility] MCV 82.1 fL (80.0-95.0) [facility] MCH 26.9 pg (27.0-32.0) L [facility] MCHC 32.8 g/dL (32.0-36.0) [facility] RDW 16.3 % (10.5-14.5) H [facility] PLT 187 10*3/uL (150-450) [facility] MPV 8.3 fL (7.1-10.7) [facility] NEUT % 78.0 % (35.0-75.0) H [facility] LYMPH % 6.7 % (16.0-52.0) L [facility] MONO % 9.3 % (0.0-8.0) H [facility] EOS % 4.4 % (0.0-5.0) [facility] BASO % 1.6 % (0.0-4.0) [facility] NEUT # 3.2 10*3/uL (1.8-7.7) Lab [facility] LYMPH # 0.3 10*3/uL (1.2-4.8) L [facility] MONO # 0.4 10*3/uL (0.0-0.8) [facility] Eosinophils [#/volume] in Blood by Automated count 0.2 10*3/uL (0.0-0 .5) [facility] BASO # 0.1 10*3/uL (0.0-0.2) [facility] ID Date Data Source PLZ LIVER 01/11/2021 12:00:00 AM EDT [email or web address] ([facility]) Name Value Range Interpretation Code Description Data Ema rce(s) Supporting Document(s) PLZ LIVER [facility] ([facility]) ID Date Data Source [id number] 12/05/2020 12:19:00 PM EDT [facility] ([facility] Name Value Range Interpretation Code Description Data Ema rce(s) Supporting Document(s) Specimen Adequacy Laboratory test result [facility] ([facility]) Ileal conduit/neobladder. Clinical History Laboratory test result [facility] ([facility]) BodySite Laboratory test result ME [facility] ([facility]) Voided - Clean Catch Gross Description Laboratory test result [facility] ([facility]) Received in a specimen container, labele d with the patients name and , is Cloudy Yellow fluid consistent with urine, measuring approximately 15 ml. Microscopic Description Laboratory test result [facility] ([facility]) Moderate numbers of neutrophils present. CPTCode 41349 [facility] ([facility]) Final Diagnosis Laboratory test result [facility] ([facility]) NEGATIVE FOR HIGH-GRADE UROTHELIAL CARCI NOMA. PDF Report Laboratory test result [facility] ([facility]) ID Date Data Source [id number] 12/05/2020 12:19:00 PM EDT [facility] ([facility] Name Value Range Interpretation Code Description Data Ema rce(s) Supporting Document(s) Cytology report of Urine Cyto stain Laboratory test result [facility] ([facility]) ID Date Data Source [id number] 12/05/2020 11:34:00 AM EDT [facility] ([facility] Name Value Range Interpretation Code Description Data Ema rce(s) Supporting Document(s) Glucose [Presence] in Urine Laboratory test result [facility] ([facility]) Protein [Presence] in Urine by Test strip 30 mg/dL [facility] ([facility]) Ua Nitrite Laboratory test result [facility] ([facility]) Blood [Presence] in Urine by Visual Laboratory test result [facility] ([facility]) Ua Leuko Laboratory test result [facility] ([facility]) Color of Urine Laboratory test result [facility] ([facility]) Ketones [Presence] in Urine by Test strip Laboratory test result [facility] ([facility]) Clarity of Urine Laboratory test result [facility] ([facility]) Ua Specific Amelia 1.010 1.003-1.030 MEDE NT ([facility]) Bilirubin.total [Presence] in Urine by Test strip Laboratory test res ult [facility] ([facility]) pH of Urine by Test strip 6.5 5.0-7.5 [facility] ([facility]) Urobilinogen [Mass/volume] in Urine by Test strip 0.2 E.U./dL 0.0-1.0 [facility] ([facility]) ID Date Data Source [id number] 11/22/2020 12:44:37 PM EDT [facility] Name Value Range Interpretation Code Description Data Ema rce(s) Supporting Document(s) POC GLUCOSE 184 mg/dL (70-99) H [facility] NOTIFIED NURSEPERFORMED BY CLINICAL S TAFF ID Date Data Source [id number] 11/22/2020 07:40:49 AM EDT [facility] Name Value Range Interpretation Code Description Data Ema rce(s) Supporting Document(s) POC GLUCOSE 124 mg/dL (70-99) H [facility] NOTIFIED NURSEPERFORMED BY CLINICAL S TAFF ID Date Data Source [id number] 11/22/2020 07:35:48 AM EDT [facility] Name Value Range Interpretation Code Description Data Ema rce(s) Supporting Document(s) SODIUM 139 mmol/L (136-145) [facility] POTASSIUM 4.2 mmol/L (3.6-5.2) [facility] CHLORIDE 113 mmol/L (100-108) H [facility] CO2 18 mmol/L (22-31) L [facility] ANION GAP 8 mmol/L (7-16) [facility] UREA NITROGEN 27 mg/dL (7-24) H [facility] CREATININE 0.95 mg/dL (0.80-1.30) [facility] BUN/CREAT RATIO 28.4 RATIO (10.0-20.0) [facility] GLUCOSE 115 mg/dL (70-99) H [facility] CALCIUM 8.2 mg/dL (8.4-10.2) L [facility] GFR >60 ml/min/1.73m2 (>59) [facility] GFR ( AMER) >60 ml/min/1.73m2 (>59) [facility] GFR INTERPRETATION [facility] --NORMAL KIDNEY FUNCTION OR MILD DISEASE - GFR >OR= 60CHRONIC KIDNEY DISEASE - GFR 15 - 59RENAL FAILURE - GFR <15 Est. GFR calculation based on the MDRDstudy equation, which assumes a steadystate for creatinine. Est. GFR should notbe used for medication dosing. ID Date Data Source [id number] 11/22/2020 06:58:27 AM EDT [facility] Name Value Range Interpretation Code Description Data Ema rce(s) Supporting Document(s) WBC 5.1 10*3/uL (4.1-11.0) [facility] RBC 2.90 10*6/uL (4.60-6.10) L [facility] HGB 8.1 g/dL (13.5-18.0) L [facility] HCT 24.4 % (41.0-53.0) L [facility] MCV 84.1 fL (80.0-95.0) [facility] MCH 27.9 pg (27.0-32.0) [facility] MCHC 33.2 g/dL (32.0-36.0) [facility] RDW 16.5 % (10.5-14.5) H [facility] PLT 125 10*3/uL (150-450) L [facility] MPV 9.3 fL (7.1-10.7) [facility] NEUT % 63.0 % (35.0-75.0) [facility] LYMPH % 11.0 % (16.0-52.0) L [facility] MONO % 15.8 % (0.0-8.0) H [facility] EOS % 8.3 % (0.0-5.0) H [facility] BASO % 1.9 % (0.0-4.0) [facility] NEUT # 3.2 10*3/uL (1.8-7.7) [facility] LYMPH # 0.6 10*3/uL (1.2-4.8) L [facility] MONO # 0.8 10*3/uL (0.0-0.8) [facility] Eosinophils [#/volume] in Blood by Automated count 0.4 10*3/uL (0.0-0 .5) [facility] BASO # 0.1 10*3/uL (0.0-0.2) [facility] ID Date Data Source [id number] 11/21/2020 09:42:27 PM EDT [facility] Name Value Range Interpretation Code Description Data Ema rce(s) Supporting Document(s) POC GLUCOSE 183 mg/dL (70-99) H [facility] NOTIFIED NURSEPERFORMED BY CLINICAL S TAFF ID Date Data Source [id number] 11/21/2020 06:01:55 PM EDT [facility] Name Value Range Interpretation Code Description Data Ema rce(s) Supporting Document(s) POC GLUCOSE 156 mg/dL (70-99) H [facility] NOTIFIED NURSEPERFORMED BY CLINICAL S TAFF ID Date Data Source [id number] 11/21/2020 01:53:27 PM EDT [facility] Name Value Range Interpretation Code Description Data Ema rce(s) Supporting Document(s) POC GLUCOSE 137 mg/dL (70-99) H [facility] NOTIFIED NURSEPERFORMED BY CLINICAL S TAFF ID Date Data Source [id number] 11/21/2020 08:51:25 AM EDT [facility] Name Value Range Interpretation Code Description Data Ema rce(s) Supporting Document(s) POC GLUCOSE 106 mg/dL (70-99) H [facility] PERFORMED BY CLINICAL STAFF ID Date Data Source [id number] 11/21/2020 08:20:09 AM EDT [facility] Name Value Range Interpretation Code Description Data Ema rce(s) Supporting Document(s) POC GLUCOSE 107 mg/dL (70-99) H [facility] NOTIFIED NURSEPERFORMED BY CLINICAL S TAFF ID Date Data Source [id number] 11/21/2020 08:40:54 AM EDT [facility] Name Value Range Interpretation Code Description Data Ema rce(s) Supporting Document(s) SODIUM 138 mmol/L (136-145) [facility] POTASSIUM 4.1 mmol/L (3.6-5.2) [facility] CHLORIDE 111 mmol/L (100-108) H [facility] CO2 18 mmol/L (22-31) L [facility] ANION GAP 9 mmol/L (7-16) [facility] UREA NITROGEN 39 mg/dL (7-24) H [facility] CREATININE 1.87 mg/dL (0.80-1.30) H [facility] BUN/CREAT RATIO 20.9 RATIO (10.0-20.0) H [facility] GLUCOSE 104 mg/dL (70-99) H [facility] CALCIUM 8.4 mg/dL (8.4-10.2) [facility] GFR 35 ml/min/1.73m2 (>59) L [facility] GFR ( AMER) 42 ml/min/1.73m2 (>59) L [facility] GFR INTERPRETATION [facility] --NORMAL KIDNEY FUNCTION OR MILD DISEASE - GFR >OR= 60CHRONIC KIDNEY DISEASE - GFR 15 - 59RENAL FAILURE - GFR <15 Est. GFR calculation based on the MDRDstudy equation, which assumes a steadystate for creatinine. Est. GFR should notbe used for medication dosing. ID Date Data Source [id number] 11/21/2020 08:19:58 AM EDT [facility] Name Value Range Interpretation Code Description Data Ema rce(s) Supporting Document(s) WBC 5.9 10*3/uL (4.1-11.0) [facility] RBC 2.94 10*6/uL (4.60-6.10) L [facility] HGB 8.3 g/dL (13.5-18.0) L [facility] HCT 24.9 % (41.0-53.0) L [facility] MCV 84.6 fL (80.0-95.0) [facility] MCH 28.1 pg (27.0-32.0) [facility] MCHC 33.2 g/dL (32.0-36.0) [facility] RDW 16.5 % (10.5-14.5) H [facility] PLT 123 10*3/uL (150-450) L [facility] MPV 9.1 fL (7.1-10.7) [facility] NEUT % 70.3 % (35.0-75.0) [facility] LYMPH % 6.6 % (16.0-52.0) L [facility] MONO % 14.9 % (0.0-8.0) H [facility] EOS % 7.2 % (0.0-5.0) H [facility] BASO % 1.0 % (0.0-4.0) [facility] NEUT # 4.2 10*3/uL (1.8-7.7) [facility] LYMPH # 0.4 10*3/uL (1.2-4.8) L [facility] MONO # 0.9 10*3/uL (0.0-0.8) H [facility] Eosinophils [#/volume] in Blood by Automated count 0.4 10*3/uL (0.0-0 .5) [facility] BASO # 0.1 10*3/uL (0.0-0.2) [facility] ID Date Data Source [id number] 2020 09:31:54 PM EDT [facility] Name Value Range Interpretation Code Description Data Ema rce(s) Supporting Document(s) POC GLUCOSE 146 mg/dL (70-99) H [facility] NOTIFIED NURSEPERFORMED BY CLINICAL S TAFF ID Date Data Source [id number] 2020 05:20:16 PM EDT [facility] Name Value Range Interpretation Code Description Data Ema rce(s) Supporting Document(s) POC GLUCOSE 131 mg/dL (70-99) H [facility] NOTIFIED NURSEPERFORMED BY CLINICAL S TAFF ID Date Data Source [id number] 2020 11:56:19 AM EDT [facility] Name Value Range Interpretation Code Description Data Ema rce(s) Supporting Document(s) POC GLUCOSE 194 mg/dL (70-99) H [facility] NOTIFIED NURSEPERFORMED BY CLINICAL S TAFF ID Date Data Source [id number] 2020 09:15:41 AM EDT [facility] Name Value Range Interpretation Code Description Data Ema rce(s) Supporting Document(s) POC GLUCOSE 107 mg/dL (70-99) H [facility] PERFORMED BY CLINICAL STAFF ID Date Data Source [id number] 2020 03:33:54 PM EDT [facility] Name Value Range Interpretation Code Description Data Ema rce(s) Supporting Document(s) IRON,TOTAL @ 15 ug/dL (35-150) L [facility] UIBC @ 184 ug/dL (130-375) [facility] TIBC @ 199 ug/dL (250-450) L [facility] % SATURATION 8 % (12-50) L [facility] ID Date Data Source [id number] 2020 03:33:54 PM EDT [facility] Name Value Range Interpretation Code Description Data Ema rce(s) Supporting Document(s) FERRITIN @ 66 ng/mL (26-388) [facility] ID Date Data Source [id number] 2020 09:16:02 AM EDT [facility] Name Value Range Interpretation Code Description Data Ema rce(s) Supporting Document(s) MAGNESIUM 2.3 mg/dL (1.7-2.4) [facility] ID Date Data Source [id number] 2020 09:16:02 AM EDT [facility] Name Value Range Interpretation Code Description Data Ema rce(s) Supporting Document(s) SODIUM 138 mmol/L (136-145) [facility] POTASSIUM 3.9 mmol/L (3.6-5.2) [facility] CHLORIDE 109 mmol/L (100-108) H [facility] CO2 21 mmol/L (22-31) L [facility] ANION GAP 8 mmol/L (7-16) [facility] UREA NITROGEN 47 mg/dL (7-24) H [facility] CREATININE 2.38 mg/dL (0.80-1.30) H [facility] BUN/CREAT RATIO 19.7 RATIO (10.0-20.0) [facility] GLUCOSE 97 mg/dL (70-99) [facility] CALCIUM 8.3 mg/dL (8.4-10.2) L [facility] GFR 27 ml/min/1.73m2 (>59) L [facility] GFR ( AMER) 32 ml/min/1.73m2 (>59) L [facility] GFR INTERPRETATION [facility] --NORMAL KIDNEY FUNCTION OR MILD DISEASE - GFR >OR= 60CHRONIC KIDNEY DISEASE - GFR 15 - 59RENAL FAILURE - GFR <15 Est. GFR calculation based on the MDRDstudy equation, which assumes a steadystate for creatinine. Est. GFR should notbe used for medication dosing. ID Date Data Source [id number] 2020 08:35:06 AM EDT [facility] Name Value Range Interpretation Code Description Data Ema rce(s) Supporting Document(s) WBC 7.3 10*3/uL (4.1-11.0) [facility] RBC 3.01 10*6/uL (4.60-6.10) L [facility] HGB 8.5 g/dL (13.5-18.0) L [facility] HCT 25.3 % (41.0-53.0) L [facility] MCV 84.2 fL (80.0-95.0) [facility] MCH 28.3 pg (27.0-32.0) [facility] MCHC 33.6 g/dL (32.0-36.0) [facility] RDW 16.0 % (10.5-14.5) H [facility] PLT 119 10*3/uL (150-450) L [facility] MPV 9.5 fL (7.1-10.7) [facility] NEUT % 76.4 % (35.0-75.0) H [facility] LYMPH % 5.5 % (16.0-52.0) L [facility] MONO % 11.3 % (0.0-8.0) H [facility] EOS % 6.0 % (0.0-5.0) H [facility] BASO % 0.8 % (0.0-4.0) [facility] NEUT # 5.6 10*3/uL (1.8-7.7) [facility] LYMPH # 0.4 10*3/uL (1.2-4.8) L [facility] MONO # 0.8 10*3/uL (0.0-0.8) [facility] Eosinophils [#/volume] in Blood by Automated count 0.4 10*3/uL (0.0-0 .5) [facility] BASO # 0.1 10*3/uL (0.0-0.2) [facility] ID Date Data Source [id number] 2020 06:43:31 AM EDT [facility] Name Value Range Interpretation Code Description Data Ema rce(s) Supporting Document(s) POC GLUCOSE 96 mg/dL (70-99) [facility] PERFORMED BY CLINICAL STAFF ID Date Data Source [id number] 2020 12:23:25 AM EDT [facility] Name Value Range Interpretation Code Description Data Ema rce(s) Supporting Document(s) POC GLUCOSE 108 mg/dL (70-99) H [facility] PERFORMED BY CLINICAL STAFF ID Date Data Source [id number] 11/19/2020 06:15:18 PM EDT [facility] Name Value Range Interpretation Code Description Data Ema rce(s) Supporting Document(s) POC GLUCOSE 153 mg/dL (70-99) H [facility] NOTIFIED NURSEPERFORMED BY CLINICAL S TAFF ID Date Data Source [id number] 2020 07:14:05 AM EDT [facility] Name Value Range Interpretation Code Description Data Ema rce(s) Supporting Document(s) POC GLUCOSE 120 mg/dL (70-99) H [facility] NOTIFIED NURSEPERFORMED BY CLINICAL S TAFF ID Date Data Source [id number] 11/19/2020 02:25:25 PM EDT [facility] Name Value Range Interpretation Code Description Data Ema rce(s) Supporting Document(s) TOTAL PROTEIN 5.1 g/dL (6.4-8.2) L [facility] ALBUMIN 1.9 g/dL (3.2-4.5) L [facility] GLOBULIN 3.2 g/dL (2.7-4.3) [facility] ALB/GLOB RATIO 0.6 RATIO [facility] BILIRUBIN,TOTAL 0.7 mg/dL (0.0-1.0) [facility] PLEASE NOTE:Total bilirubin results may be falselyelevated in patients taking Eltrombopag. BILIRUBIN,CONJUGATED 0.3 mg/dL (0.0-0.3) [facility] BILIRUBIN,UNCONJ. 0.4 mg/dL (0.0-0.7) [facility] ALKALINE PHOSPHATASE 63 U/L (45-117) [facility] AST (SGOT) 43 U/L (11-39) H [facility] ALT (SGPT) 21 U/L (12-78) [facility] ID Date Data Source [id number] 11/19/2020 08:23:57 AM EDT [facility] Name Value Range Interpretation Code Description Data Ema rce(s) Supporting Document(s) VANCOMYCIN RANDOM 13.1 ug/mL [facility] THERAPEUTIC RANGE IS ONLY AVAILABLE FOR PEAK AND TROUGH SPECIMENS. RANDOM LEVEL RESULTS MUST BE INTERPRETED BY THE PHYSICIAN. ID Date Data Source [id number] 11/19/2020 08:23:57 AM EDT [facility] Name Value Range Interpretation Code Description Data Ema rce(s) Supporting Document(s) SODIUM 136 mmol/L (136-145) [facility] POTASSIUM 3.7 mmol/L (3.6-5.2) [facility] CHLORIDE 105 mmol/L (100-108) [facility] CO2 19 mmol/L (22-31) L [facility] ANION GAP 12 mmol/L (7-16) [facility] UREA NITROGEN 50 mg/dL (7-24) H [facility] CREATININE 2.59 mg/dL (0.80-1.30) H [facility] BUN/CREAT RATIO 19.3 RATIO (10.0-20.0) [facility] GLUCOSE 89 mg/dL (70-99) [facility] CALCIUM 8.2 mg/dL (8.4-10.2) L [facility] GFR 24 ml/min/1.73m2 (>59) L [facility] GFR ( AMER) 29 ml/min/1.73m2 (>59) L [facility] GFR INTERPRETATION [facility] --NORMAL KIDNEY FUNCTION OR MILD DISEASE - GFR >OR= 60CHRONIC KIDNEY DISEASE - GFR 15 - 59RENAL FAILURE - GFR <15 Est. GFR calculation based on the MDRDstudy equation, which assumes a steadystate for creatinine. Est. GFR should notbe used for medication dosing. ID Date Data Source [id number] 11/19/2020 08:02:08 AM EDT [facility] Name Value Range Interpretation Code Description Data Ema rce(s) Supporting Document(s) WBC 10.1 10*3/uL (4.1-11.0) [facility] RBC 2.79 10*6/uL (4.60-6.10) L [facility] HGB 7.9 g/dL (13.5-18.0) L [facility] HCT 23.6 % (41.0-53.0) L [facility] MCV 84.5 fL (80.0-95.0) [facility] MCH 28.2 pg (27.0-32.0) [facility] MCHC 33.4 g/dL (32.0-36.0) [facility] RDW 16.1 % (10.5-14.5) H [facility] PLT 104 10*3/uL (150-450) L [facility] MPV 9.2 fL (7.1-10.7) [facility] ID Date Data Source [id number] 11/19/2020 06:17:02 AM EDT [facility] Name Value Range Interpretation Code Description Data Ema rce(s) Supporting Document(s) POC GLUCOSE 108 mg/dL (70-99) H [facility] PERFORMED BY CLINICAL STAFF ID Date Data Source [id number] 11/19/2020 12:16:43 AM EDT [facility] Name Value Range Interpretation Code Description Data Ema rce(s) Supporting Document(s) POC GLUCOSE 148 mg/dL (70-99) H [facility] PERFORMED BY CLINICAL STAFF ID Date Data Source [id number] 2020 07:20:38 AM EDT [facility] SPECIMEN DESCRIPTION URINE, COLLE CTION METHOD NOT SPECIFIEDCULTURE RESULTS NO GROWTHREPORT STATUS FINAL 2020 Name Value Range Interpretation Code Description Data Ema rce(s) Supporting Document(s) ID Date Data Source [id number] 11/18/2020 05:46:48 PM EDT [facility] Name Value Range Interpretation Code Description Data Ema rce(s) Supporting Document(s) POC GLUCOSE 180 mg/dL (70-99) H [facility] NOTIFIED NURSEPERFORMED BY CLINICAL S TAFF ID Date Data Source [id number] 11/18/2020 01:55:22 PM EDT [facility] Name Value Range Interpretation Code Description Data Ema rce(s) Supporting Document(s) POC GLUCOSE 156 mg/dL (70-99) H [facility] PERFORMED BY CLINICAL STAFF ID Date Data Source [id number] 11/18/2020 01:26:32 PM EDT [facility] Name Value Range Interpretation Code Description Data Ema rce(s) Supporting Document(s) URINE WBC (0-5) [facility] URINE RBC (0-2) [facility] EPITHELIAL CELLS 1+ [HPF] [facility] BACTERIA 1+ [HPF] [facility] WBC CLUMPING 1+ [facility] [place] ID Date Data Source [id number] 11/18/2020 01:14:40 PM EDT [facility] Name Value Range Interpretation Code Description Data Ema rce(s) Supporting Document(s) COLOR [facility] APPEARANCE [facility] SPEC GRAV URINE 1.016 (1.003-1.030) [facility] PH URINE 5.5 (5.0-7.5) [facility] LEUK ESTERASE 3+ (NEG) A [facility] NITRITE URINE (NEG) [facility] PROTEIN URINE 1+ (NEG) A [facility] GLUCOSE URINE (NEG) [facility] KETONE URINE (NEG) [facility] UROBILINOGEN 0.2 mg/dL (0-1.0) [facility] BILIRUBIN URINE (NEG) [facility] BLOOD/HGB URINE 3+ (NEG) A [facility] ID Date Data Source [id number] 11/21/2020 10:04:31 AM EDT [facility] SPECIMEN DESCRIPTION PERIPHERALSP ECIAL REQUESTS NONEGRAM STAIN GRAM NEGATIVE RODSALERTED CRITICAL RESULT TO DOREEN LIPSCOMB 5SIR @ 0940 11/19/2020 [place] [id number] CULTURE RESULTS PSEUDOMONAS AERUGINOSA PSEUDOMONAS AERUGINOSA BY [...] rce(s) Supporting Document(s) ID Date Data Source [id number] 11/23/2020 11:15:10 AM EDT [facility] SPECIMEN DESCRIPTION PERIPHERALSP ECIAL REQUESTS NONECULTURE RESULTS NO GROWTH 5 DAYSREPORT STATUS FINAL 11/23/2020 Name Value Range Interpretation Code Description Data Ema rce(s) Supporting Document(s) ID Date Data Source [id number] 11/18/2020 09:33:00 AM EDT [facility] DATE OF EXAM: 11/18/2020XAM: Ultrasound vascular: [...] left Stevens's cyst. Professional interpretation performed at [facility] .End of diagnostic report for accession: [id number] Interpreted: Charbel Vizcaino MDTranscribed: 11/18/2020 09:32 AMSigned: 11/18/2020 09:33 AM Charbel Vizcaino MD [facility] # [id number] [facility] # [id number] Name Value Range Interpretation Code Description Data Ema rce(s) Supporting Document(s) ID Date Data Source [id number] 11/18/2020 07:03:40 AM EDT [facility] Name Value Range Interpretation Code Description Data Ema rce(s) Supporting Document(s) POC GLUCOSE 117 mg/dL (70-99) H [facility] PERFORMED BY CLINICAL STAFF ID Date Data Source [id number] 11/18/2020 07:24:24 AM EDT [facility] Name Value Range Interpretation Code Description Data Ema rce(s) Supporting Document(s) MAGNESIUM 2.2 mg/dL (1.7-2.4) [facility] ID Date Data Source [id number] 11/18/2020 07:24:24 AM EDT [facility] Name Value Range Interpretation Code Description Data Ema rce(s) Supporting Document(s) NT PRO BNP 223 pg/mL (0-450) [facility] ID Date Data Source [id number] 11/18/2020 07:24:24 AM EDT [facility] Name Value Range Interpretation Code Description Data Ema rce(s) Supporting Document(s) TROPONIN I <0.05 ng/mL (<0.05) [facility] [place] Less than 0.05: Myocardial injury unlike lyGreater than or equal to 0.05: Highly suggestive of myocardial injuryCorrelation with rise and/or fall ofserial troponins, clinical symptomsand ECG changes is necessary. ID Date Data Source [id number] 11/18/2020 07:24:24 AM EDT [facility] Name Value Range Interpretation Code Description Data Ema rce(s) Supporting Document(s) SODIUM 137 mmol/L (136-145) [facility] POTASSIUM 4.1 mmol/L (3.6-5.2) [facility] CHLORIDE 105 mmol/L (100-108) [facility] CO2 25 mmol/L (22-31) [facility] ANION GAP 7 mmol/L (7-16) [facility] UREA NITROGEN 50 mg/dL (7-24) H [facility] CREATININE 2.22 mg/dL (0.80-1.30) H [facility] BUN/CREAT RATIO 22.5 RATIO (10.0-20.0) H [facility] GLUCOSE 127 mg/dL (70-99) H [facility] CALCIUM 9.3 mg/dL (8.4-10.2) [facility] GFR 29 ml/min/1.73m2 (>59) L [facility] GFR ( AMER) 35 ml/min/1.73m2 (>59) L [facility] GFR INTERPRETATION [facility] --NORMAL KIDNEY FUNCTION OR MILD DISEASE - GFR >OR= 60CHRONIC KIDNEY DISEASE - GFR 15 - 59RENAL FAILURE - GFR <15 Est. GFR calculation based on the MDRDstudy equation, which assumes a steadystate for creatinine. Est. GFR should notbe used for medication dosing. ID Date Data Source [id number] 11/18/2020 06:53:47 AM EDT [facility] Name Value Range Interpretation Code Description Data Ema rce(s) Supporting Document(s) WBC 3.7 10*3/uL (4.1-11.0) L [facility] [place] RBC 3.44 10*6/uL (4.60-6.10) L [facility] HGB 9.6 g/dL (13.5-18.0) L [facility] HCT 29.1 % (41.0-53.0) L [facility] MCV 84.5 fL (80.0-95.0) [facility] MCH 27.9 pg (27.0-32.0) [facility] MCHC 33.1 g/dL (32.0-36.0) [facility] RDW 16.2 % (10.5-14.5) H [facility] PLT 116 10*3/uL (150-450) L [facility] MPV 8.9 fL (7.1-10.7) [facility] NEUT % 92.1 % (35.0-75.0) H [facility] LYMPH % 3.1 % (16.0-52.0) L [facility] MONO % 2.5 % (0.0-8.0) [facility] EOS % 2.1 % (0.0-5.0) [facility] BASO % 0.2 % (0.0-4.0) [facility] NEUT # 3.4 10*3/uL (1.8-7.7) [facility] LYMPH # 0.1 10*3/uL (1.2-4.8) L [facility] MONO # 0.1 10*3/uL (0.0-0.8) [facility] Eosinophils [#/volume] in Blood by Automated count 0.1 10*3/uL (0.0-0 .5) [facility] BASO # 0.0 10*3/uL (0.0-0.2) [facility] ID Date Data Source [id number] 11/18/2020 07:02:00 AM EDT [facility] Name Value Range Interpretation Code Description Data Ema rce(s) Supporting Document(s) LACTIC ACID 1.9 mmol/L (0.4-2.0) [facility] [place] ID Date Data Source [id number] 11/18/2020 08:13:00 AM EDT [facility] DATE OF EXAM: 1EXAM: Portable c hest INDICATION: DYSPNEA COMPARISON: 02/18/2011 TECHNIQUE: AP upright. There is a limited degree of inspiration with mild accentuation of the pulmonary vascular markings. No focal area of pneumonia or atelectasis is seen. The mediastinum, heart, and pulmonary vascularity are within normal limits. IMPRESSION: No acute disease. Professional interpretation performed at [facility] .End of diagnostic report for accession: [id number] Interpreted: Charbel Vizcaino MDTranscribed: 11/18/2020 08:12 AMSigned: 11/18/2020 08:13 AM Charbel Vizcaino MD [facility] # [id number] [facility] # [id number] Name Value Range Interpretation Code Description Data Ema rce(s) Supporting Document(s) ID Date Data Source [id number] 11/18/2020 12:01:07 AM EDT [facility] Name Value Range Interpretation Code Description Data Ema rce(s) Supporting Document(s) POC GLUCOSE 156 mg/dL (70-99) H [facility] PERFORMED BY CLINICAL STAFF ID Date Data Source [id number] 11/17/2020 05:55:37 PM EDT [facility] Name Value Range Interpretation Code Description Data Ema rce(s) Supporting Document(s) POC GLUCOSE 137 mg/dL (70-99) H [facility] NOTIFIED NURSEPERFORMED BY CLINICAL S TAFF ID Date Data Source [id number] 11/17/2020 12:25:31 PM EDT [facility] Name Value Range Interpretation Code Description Data Ema rce(s) Supporting Document(s) POC GLUCOSE 131 mg/dL (70-99) H [facility] NOTIFIED NURSEPERFORMED BY CLINICAL S TAFF ID Date Data Source [id number] 11/17/2020 08:55:54 AM EDT [facility] Name Value Range Interpretation Code Description Data Ema rce(s) Supporting Document(s) SODIUM 141 mmol/L (136-145) [facility] POTASSIUM 4.1 mmol/L (3.6-5.2) [facility] CHLORIDE 109 mmol/L (100-108) H [facility] CO2 23 mmol/L (22-31) [facility] ANION GAP 9 mmol/L (7-16) [facility] UREA NITROGEN 51 mg/dL (7-24) H [facility] CREATININE 2.05 mg/dL (0.80-1.30) H [facility] BUN/CREAT RATIO 24.9 RATIO (10.0-20.0) H [facility] GLUCOSE 107 mg/dL (70-99) H [facility] CALCIUM 9.2 mg/dL (8.4-10.2) [facility] GFR 32 ml/min/1.73m2 (>59) L [facility] GFR ( AMER) 38 ml/min/1.73m2 (>59) L [facility] GFR INTERPRETATION [facility] --NORMAL KIDNEY FUNCTION OR MILD DISEASE - GFR >OR= 60CHRONIC KIDNEY DISEASE - GFR 15 - 59RENAL FAILURE - GFR <15 Est. GFR calculation based on the MDRDstudy equation, which assumes a steadystate for creatinine. Est. GFR should notbe used for medication dosing. ID Date Data Source [id number] 11/17/2020 08:35:35 AM EDT [facility] Name Value Range Interpretation Code Description Data Ema rce(s) Supporting Document(s) WBC 4.5 10*3/uL (4.1-11.0) [facility] [place] RBC 3.11 10*6/uL (4.60-6.10) L [facility] HGB 8.5 g/dL (13.5-18.0) L [facility] HCT 26.5 % (41.0-53.0) L [facility] MCV 85.3 fL (80.0-95.0) [facility] MCH 27.4 pg (27.0-32.0) [facility] MCHC 32.1 g/dL (32.0-36.0) [facility] RDW 16.2 % (10.5-14.5) H [facility] PLT 102 10*3/uL (150-450) L [facility] MPV 9.4 fL (7.1-10.7) [facility] NEUT % 77.2 % (35.0-75.0) H [facility] LYMPH % 7.2 % (16.0-52.0) L [facility] MONO % 10.8 % (0.0-8.0) H [facility] EOS % 4.3 % (0.0-5.0) [facility] BASO % 0.5 % (0.0-4.0) [facility] NEUT # 3.5 10*3/uL (1.8-7.7) [facility] LYMPH # 0.3 10*3/uL (1.2-4.8) L [facility] MONO # 0.5 10*3/uL (0.0-0.8) [facility] Eosinophils [#/volume] in Blood by Automated count 0.2 10*3/uL (0.0-0 .5) [facility] BASO # 0.0 10*3/uL (0.0-0.2) [facility] ID Date Data Source [id number] 11/17/2020 05:32:32 AM EDT [facility] Name Value Range Interpretation Code Description Data Ema rce(s) Supporting Document(s) POC GLUCOSE 112 mg/dL (70-99) H [facility] NOTIFIED NURSEPERFORMED BY CLINICAL S TAFF ID Date Data Source [id number] 11/17/2020 03:04:02 AM EDT [facility] Name Value Range Interpretation Code Description Data Ema rce(s) Supporting Document(s) STOOL OCCULT BLOOD (NEG) [facility] ID Date Data Source [id number] 11/17/2020 12:19:03 AM EDT [facility] Name Value Range Interpretation Code Description Data Ema rce(s) Supporting Document(s) POC GLUCOSE 134 mg/dL (70-99) H [facility] NOTIFIED NURSEPERFORMED BY CLINICAL S TAFF ID Date Data Source [id number] 11/16/2020 06:51:12 PM EDT [facility] Name Value Range Interpretation Code Description Data Ema rce(s) Supporting Document(s) POC GLUCOSE 120 mg/dL (70-99) H [facility] PERFORMED BY CLINICAL STAFF ID Date Data Source [id number] 11/16/2020 06:47:00 PM EDT [facility] DATE OF EXAM: 11/16/2020T ABDOMEN [...] position. X7End of diagnostic report for accession: [id number] Interpreted: Charbel Kilpatrick MDTranscribed: 11/16/2020 06:41 PMSigned: 11/16/2020 06:47 PM Charbel Kilpatrick MD ------- [facility] # [id number] [facility] # [id number] Name Value Range Interpretation Code Description Data Ema rce(s) Supporting Document(s) ID Date Data Source [id number] 11/16/2020 01:15:02 PM EDT [facility] Name Value Range Interpretation Code Description Data Ema rce(s) Supporting Document(s) FLUID CREATININE 1.75 mg/dL [facility] ID Date Data Source [id number] 11/16/2020 12:52:45 PM EDT [facility] Name Value Range Interpretation Code Description Data Ema rce(s) Supporting Document(s) FLUID SOURCE [facility] [place] ID Date Data Source [id number] 11/16/2020 12:25:11 PM EDT [facility] Name Value Range Interpretation Code Description Data Ema rce(s) Supporting Document(s) POC GLUCOSE 149 mg/dL (70-99) H [facility] PERFORMED BY CLINICAL STAFF ID Date Data Source [id number] 11/16/2020 01:18:38 PM EDT [facility] Name Value Range Interpretation Code Description Data Ema rce(s) Supporting Document(s) SODIUM 142 mmol/L (136-145) [facility] POTASSIUM 3.9 mmol/L (3.6-5.2) [facility] CHLORIDE 109 mmol/L (100-108) H [facility] CO2 27 mmol/L (22-31) [facility] ANION GAP 6 mmol/L (7-16) L [facility] UREA NITROGEN 48 mg/dL (7-24) H [facility] CREATININE 1.97 mg/dL (0.80-1.30) H [facility] BUN/CREAT RATIO 24.4 RATIO (10.0-20.0) H [facility] GLUCOSE 149 mg/dL (70-99) H [facility] CALCIUM 9.4 mg/dL (8.4-10.2) [facility] TOTAL PROTEIN 6.5 g/dL (6.4-8.2) [facility] ALBUMIN 2.5 g/dL (3.2-4.5) L [facility] GLOBULIN 4.0 g/dL (2.7-4.3) [facility] ALB/GLOB RATIO 0.6 RATIO [facility] ALKALINE PHOSPHATASE 72 U/L (45-117) [facility] BILIRUBIN,TOTAL 0.7 mg/dL (0.0-1.0) [facility] PLEASE NOTE:Total bilirubin results may be falselyelevated in patients taking Eltrombopag. AST (SGOT) 33 U/L (11-39) [facility] ALT (SGPT) 13 U/L (12-78) [facility] GFR 33 ml/min/1.73m2 (>59) L [facility] GFR ( AMER) 40 ml/min/1.73m2 (>59) L [facility] GFR INTERPRETATION [facility] --NORMAL KIDNEY FUNCTION OR MILD DISEASE - GFR >OR= 60CHRONIC KIDNEY DISEASE - GFR 15 - 59RENAL FAILURE - GFR <15 Est. GFR calculation based on the MDRDstudy equation, which assumes a steadystate for creatinine. Est. GFR should notbe used for medication dosing. ID Date Data Source [id number] 11/16/2020 12:50:19 PM EDT [facility] Name Value Range Interpretation Code Description Data Ema rce(s) Supporting Document(s) WBC 6.5 10*3/uL (4.1-11.0) [facility] [place] RBC 3.22 10*6/uL (4.60-6.10) L [facility] HGB 8.9 g/dL (13.5-18.0) L [facility] HCT 27.3 % (41.0-53.0) L [facility] MCV 84.7 fL (80.0-95.0) [facility] MCH 27.6 pg (27.0-32.0) [facility] MCHC 32.6 g/dL (32.0-36.0) [facility] RDW 16.3 % (10.5-14.5) H [facility] PLT 102 10*3/uL (150-450) L [facility] MPV 8.9 fL (7.1-10.7) [facility] NEUT % 84.9 % (35.0-75.0) H [facility] LYMPH % 3.8 % (16.0-52.0) L [facility] MONO % 9.5 % (0.0-8.0) H [facility] EOS % 1.7 % (0.0-5.0) [facility] BASO % 0.1 % (0.0-4.0) [facility] NEUT # 5.5 10*3/uL (1.8-7.7) [facility] LYMPH # 0.2 10*3/uL (1.2-4.8) L [facility] MONO # 0.6 10*3/uL (0.0-0.8) [facility] Eosinophils [#/volume] in Blood by Automated count 0.1 10*3/uL (0.0-0 .5) [facility] BASO # 0.0 10*3/uL (0.0-0.2) [facility] ID Date Data Source [id number] 11/16/2020 07:25:10 AM EDT [facility] Name Value Range Interpretation Code Description Data Ema rce(s) Supporting Document(s) SODIUM 142 mmol/L (136-145) [facility] POTASSIUM 4.4 mmol/L (3.6-5.2) [facility] CHLORIDE 111 mmol/L (100-108) H [facility] CO2 25 mmol/L (22-31) [facility] ANION GAP 6 mmol/L (7-16) L [facility] UREA NITROGEN 48 mg/dL (7-24) H [facility] CREATININE 1.86 mg/dL (0.80-1.30) H [facility] BUN/CREAT RATIO 25.8 RATIO (10.0-20.0) H [facility] GLUCOSE 142 mg/dL (70-99) H [facility] CALCIUM 9.5 mg/dL (8.4-10.2) [facility] GFR 35 ml/min/1.73m2 (>59) L [facility] GFR ( AMER) 43 ml/min/1.73m2 (>59) L [facility] GFR INTERPRETATION [facility] --NORMAL KIDNEY FUNCTION OR MILD DISEASE - GFR >OR= 60CHRONIC KIDNEY DISEASE - GFR 15 - 59RENAL FAILURE - GFR <15 Est. GFR calculation based on the MDRDstudy equation, which assumes a steadystate for creatinine. Est. GFR should notbe used for medication dosing. ID Date Data Source [id number] 11/16/2020 06:44:48 AM EDT [facility] Name Value Range Interpretation Code Description Data Ema rce(s) Supporting Document(s) WBC 6.0 10*3/uL (4.1-11.0) [facility] [place] RBC 3.20 10*6/uL (4.60-6.10) L [facility] HGB 9.2 g/dL (13.5-18.0) L [facility] HCT 27.4 % (41.0-53.0) L [facility] MCV 85.5 fL (80.0-95.0) [facility] MCH 28.6 pg (27.0-32.0) [facility] MCHC 33.4 g/dL (32.0-36.0) [facility] RDW 16.3 % (10.5-14.5) H [facility] PLT 92 10*3/uL (150-450) L [facility] MPV 9.2 fL (7.1-10.7) [facility] NEUT % 82.5 % (35.0-75.0) H [facility] LYMPH % 3.8 % (16.0-52.0) L [facility] MONO % 11.3 % (0.0-8.0) H [facility] EOS % 2.2 % (0.0-5.0) [facility] BASO % 0.2 % (0.0-4.0) [facility] NEUT # 5.0 10*3/uL (1.8-7.7) [facility] LYMPH # 0.2 10*3/uL (1.2-4.8) L [facility] MONO # 0.7 10*3/uL (0.0-0.8) [facility] Eosinophils [#/volume] in Blood by Automated count 0.1 10*3/uL (0.0-0 .5) [facility] BASO # 0.0 10*3/uL (0.0-0.2) [facility] ID Date Data Source [id number] 11/16/2020 06:06:03 AM EDT [facility] Name Value Range Interpretation Code Description Data Ema rce(s) Supporting Document(s) POC GLUCOSE 141 mg/dL (70-99) H [facility] NOTIFIED NURSEPERFORMED BY CLINICAL S TAFF ID Date Data Source [id number] 11/16/2020 12:07:42 AM EDT [facility] Name Value Range Interpretation Code Description Data Ema rce(s) Supporting Document(s) POC GLUCOSE 134 mg/dL (70-99) H [facility] NOTIFIED NURSEPERFORMED BY CLINICAL S TAFF ID Date Data Source [id number] 11/15/2020 06:20:11 PM EDT [facility] Name Value Range Interpretation Code Description Data Ema rce(s) Supporting Document(s) POC GLUCOSE 155 mg/dL (70-99) H [facility] NOTIFIED NURSEPERFORMED BY CLINICAL S TAFF ID Date Data Source [id number] 11/15/2020 12:38:28 PM EDT [facility] Name Value Range Interpretation Code Description Data Ema rce(s) Supporting Document(s) POC GLUCOSE 160 mg/dL (70-99) H [facility] NOTIFIED NURSEPERFORMED BY CLINICAL S TAFF ID Date Data Source [id number] 11/15/2020 12:50:54 PM EDT [facility] Name Value Range Interpretation Code Description Data Ema rce(s) Supporting Document(s) SODIUM 141 mmol/L (136-145) [facility] POTASSIUM 4.1 mmol/L (3.6-5.2) [facility] CHLORIDE 108 mmol/L (100-108) [facility] CO2 26 mmol/L (22-31) [facility] ANION GAP 7 mmol/L (7-16) [facility] UREA NITROGEN 36 mg/dL (7-24) H [facility] CREATININE 1.68 mg/dL (0.80-1.30) H [facility] BUN/CREAT RATIO 21.4 RATIO (10.0-20.0) H [facility] GLUCOSE 152 mg/dL (70-99) H [facility] CALCIUM 9.7 mg/dL (8.4-10.2) [facility] TOTAL PROTEIN 6.5 g/dL (6.4-8.2) [facility] ALBUMIN 2.7 g/dL (3.2-4.5) L [facility] GLOBULIN 3.8 g/dL (2.7-4.3) [facility] ALB/GLOB RATIO 0.7 RATIO [facility] ALKALINE PHOSPHATASE 72 U/L (45-117) [facility] BILIRUBIN,TOTAL 0.7 mg/dL (0.0-1.0) [facility] PLEASE NOTE:Total bilirubin results may be falselyelevated in patients taking Eltrombopag. AST (SGOT) 31 U/L (11-39) [facility] ALT (SGPT) 18 U/L (12-78) [facility] GFR 40 ml/min/1.73m2 (>59) L [facility] GFR ( AMER) 48 ml/min/1.73m2 (>59) L [facility] GFR INTERPRETATION [facility] --NORMAL KIDNEY FUNCTION OR MILD DISEASE - GFR >OR= 60CHRONIC KIDNEY DISEASE - GFR 15 - 59RENAL FAILURE - GFR <15 Est. GFR calculation based on the MDRDstudy equation, which assumes a steadystate for creatinine. Est. GFR should notbe used for medication dosing. ID Date Data Source [id number] 11/15/2020 12:11:25 PM EDT [facility] Name Value Range Interpretation Code Description Data Ema rce(s) Supporting Document(s) WBC 7.9 10*3/uL (4.1-11.0) [facility] [place] RBC 3.22 10*6/uL (4.60-6.10) L [facility] HGB 9.0 g/dL (13.5-18.0) L [facility] HCT 27.3 % (41.0-53.0) L [facility] MCV 84.8 fL (80.0-95.0) [facility] MCH 28.1 pg (27.0-32.0) [facility] MCHC 33.1 g/dL (32.0-36.0) [facility] RDW 16.1 % (10.5-14.5) H [facility] PLT 112 10*3/uL (150-450) L [facility] MPV 9.3 fL (7.1-10.7) [facility] ID Date Data Source [id number] 11/15/2020 05:46:43 AM EDT [facility] Name Value Range Interpretation Code Description Data Ema rce(s) Supporting Document(s) POC GLUCOSE 156 mg/dL (70-99) H [facility] [facility] NOTIFIED NURSEPERFORMED BY CLINICAL S TAFF ID Date Data Source [id number] 11/15/2020 12:06:03 AM EDT [facility] [place] Name Value Range Interpretation Code Description Data Ema rce(s) Supporting Document(s) POC GLUCOSE 153 mg/dL (70-99) H [facility] [facility] NOTIFIED NURSEPERFORMED BY CLINICAL S TAFF ID Date Data Source [id number] 11/14/2020 08:19:00 PM EDT [facility] DATE OF EXAM: 11/14/2020XAM: ABDOMINAL X-RAY. HISTORY: STENT TECHNIQUE: Single supine view the abdomen is obtained. Portions of the upper abdomen are excluded from the image [id number]. COMPARISON: Abdominal x-ray dated 02/18/2011. CT abdomen [...] bilateral hip osteoarthritis. Professional interpretation performed at [facility] .End of diagnostic report for accession: [id number] Interpreted: Marielena Simmons MDTranscribed: 11/14/2020 08:17 PMSigned: 11/14/2020 08:19 PM Marielena Simmons MD [facility] # [id number] [facility] # [id number] Name Value Range Interpretation Code Description Data Ema rce(s) Supporting Document(s) ID Date Data Source [id number] 11/14/2020 06:01:30 PM EDT [facility] Name Value Range Interpretation Code Description Data Ema rce(s) Supporting Document(s) POC GLUCOSE 147 mg/dL (70-99) H [facility] PERFORMED BY CLINICAL STAFF ID Date Data Source [id number] 11/14/2020 11:20:05 AM EDT [facility] Name Value Range Interpretation Code Description Data Ema rce(s) Supporting Document(s) POC GLUCOSE 182 mg/dL (70-99) H [facility] NOTIFIED NURSEPERFORMED BY CLINICAL S TAFF ID Date Data Source [id number] 11/14/2020 08:29:58 AM EDT [facility] Name Value Range Interpretation Code Description Data Ema rce(s) Supporting Document(s) SODIUM 143 mmol/L (136-145) [facility] POTASSIUM 4.7 mmol/L (3.6-5.2) [facility] CHLORIDE 112 mmol/L (100-108) H [facility] CO2 24 mmol/L (22-31) [facility] ANION GAP 7 mmol/L (7-16) [facility] UREA NITROGEN 22 mg/dL (7-24) [facility] CREATININE 1.09 mg/dL (0.80-1.30) [facility] BUN/CREAT RATIO 20.2 RATIO (10.0-20.0) H [facility] GLUCOSE 201 mg/dL (70-99) H [facility] CALCIUM 9.9 mg/dL (8.4-10.2) [facility] GFR >60 ml/min/1.73m2 (>59) [facility] GFR ( AMER) >60 ml/min/1.73m2 (>59) [facility] GFR INTERPRETATION [facility] --NORMAL KIDNEY FUNCTION OR MILD DISEASE - GFR >OR= 60CHRONIC KIDNEY DISEASE - GFR 15 - 59RENAL FAILURE - GFR <15 Est. GFR calculation based on the MDRDstudy equation, which assumes a steadystate for creatinine. Est. GFR should notbe used for medication dosing. ID Date Data Source [id number] 11/14/2020 08:10:07 AM EDT [facility] Name Value Range Interpretation Code Description Data Ema rce(s) Supporting Document(s) WBC 7.7 10*3/uL (4.1-11.0) [facility] [place] RBC 3.25 10*6/uL (4.60-6.10) L [facility] HGB 9.3 g/dL (13.5-18.0) L [facility] HCT 28.2 % (41.0-53.0) L [facility] MCV 86.7 fL (80.0-95.0) [facility] MCH 28.5 pg (27.0-32.0) [facility] MCHC 32.9 g/dL (32.0-36.0) [facility] RDW 16.6 % (10.5-14.5) H [facility] PLT 113 10*3/uL (150-450) L [facility] MPV 9.4 fL (7.1-10.7) [facility] ID Date Data Source [id number] 11/14/2020 06:02:40 AM EDT [facility] Name Value Range Interpretation Code Description Data Ema rce(s) Supporting Document(s) POC GLUCOSE 199 mg/dL (70-99) H [facility] PERFORMED BY CLINICAL STAFF ID Date Data Source [id number] 11/13/2020 09:40:55 PM EDT [facility] Name Value Range Interpretation Code Description Data Ema rce(s) Supporting Document(s) POC GLUCOSE 171 mg/dL (70-99) H [facility] PERFORMED BY CLINICAL STAFF ID Date Data Source [id number] 11/13/2020 08:27:01 PM EDT [facility] Name Value Range Interpretation Code Description Data Ema rce(s) Supporting Document(s) HEMOGLOBIN A1C @ 6.6 % (4.0-6.0) H [facility] Performed using Siemens [place] immunoassa y.Care must be taken when interpreting [id number] in patients with a hemoglobin variantor decreased erythrocyte lifespan. Values 5.7 - 6.4% suggest prediabetes.Values >=6.5% are diagnostic for diabetes.REFERENCE: DIABETES CARE 2018: 41(S13-S27).PERFORMED AT [address] [facility] [address] EST [place] GLUCOSE 143 mg/dL [facility] ID Date Data Source [id number] 11/13/2020 07:05:42 PM EDT [facility] Name Value Range Interpretation Code Description Data Ema rce(s) Supporting Document(s) POC GLUCOSE 193 mg/dL (70-99) H [facility] PERFORMED BY CLINICAL STAFF ID Date Data Source [id number] 2020 11:32:00 AM EDT [facility] [place], [place] [address]SFRRHCB NAME: SARINA LINARESDATE OF : 2REPORT: OPERATIONPATIENT NUMBER: [id number] STATUS: IPMEDICAL RECORD NUMBER: [id number] OF ADMISSION: 1DATE OF DISCHARGE:ROOM: 04DATE OF [...] crystalloid.COMPLICATIONS: None.DRAINS: A 10-mm GEOFF drain and 7-Arabic single J stent bilaterally.SPECIMENS: Bladder, prostate, and [...] CO2. This to be noted that the Gacria was left inplace due to the fact [...] ureter, I then clipped with 10 mm [id number] clip and then transected and I continued [...] ileoconduit. Prior to closing the anastomosis, a 7-Arabic single Jstent was advanced up from the [...] Kitchen, MDDictated: 11/13/2020 17:08DT: 11/13/2020 17:16Job #: [id number]: [facility] computer generated reports are not confirmed orauthenticated unless they are signed by the providerElectronically Authenticated by:KRISTA KITCHEN MD On 2020 11:32 AM EDT Name Value Range Interpretation Code Description Data Ema rce(s) Supporting Document(s) ID Date Data Source [id number] 11/13/2020 04:57:08 PM EDT [facility] Name Value Range Interpretation Code Description Data Ema rce(s) Supporting Document(s) POC GLUCOSE 166 mg/dL (70-99) H [facility] NOTIFIED PROVIDERNOTIFIED NURSEPERFORMED BY CLINICAL STAFF ID Date Data Source [id number] 11/13/2020 12:03:13 PM EDT [facility] Name Value Range Interpretation Code Description Data Ema rce(s) Supporting Document(s) POC GLUCOSE 134 mg/dL (70-99) H [facility] PERFORMED BY CLINICAL STAFF ID Date Data Source [id number] 11/13/2020 08:24:00 AM EDT [facility] Name Value Range Interpretation Code Description Data Ema rce(s) Supporting Document(s) Surgical pathology study Laboratory test result [facility]) LABORATORY [facility] [address] [place] [address] SURGICAL PATHOLOGY REPORT Patient Name:SARINA LINARES :1940 [...] [facility] [address] [place] [id number] Technical component performed at [facility], Histopathology, [address] [place] [address], [id number]. Reported at [facility], [address] [place] [address], [id number]. This report may include immunohistochemical or in-situ hybridization results. Testing was developed and the performance characteristics determined by [facility], as required by CLIA '88. The FDA has determined that approval for specific use is not necessary for clinical use. The quality of Hematoxylin and Eosin stains and as applicable, for all immunohistochemical and/or special stains, including positive and negative controls, were reviewed and considered appropriate. ICD codes: Z85.46 CPT4 codes: A: 33731T B: 72839G C: 54430J ID Date Data Source [id number] 11/22/2020 12:14:35 AM EDT [place], [place] [address]Tel# SURGICAL PATHOLOGY REPORTPatient Name:SARINA LINARES:2Received:11/14/2020ccession #:[id number](s) [...] Out By Anisa Mcmillan D.O. [facility] [address] [address]Usrkcemux component performed at [facility], Histopathology, [address] [place] [address], Critical access hospital.Reported at [facility], [address] [place] [address], [id number].This report may include immunohistochemical or in-situ hybridizationresults. Testing was developed and the performance characteristicsdetermined by [facility], as required byCLIA '88. The FDA has determined that approval for specific use is notnecessary for clinical use. The quality of Hematoxylin and Eosin stainsand as applicable, for all immunohistochemical and/or special stains,including positive and negative controls, were reviewed and consideredappropriate.ICD codes: Z85.46CPT4 codes: A: 03518GY: 49651HV: 43391T Name Value Range Interpretation Code Description Data Ema rce(s) Supporting Document(s) ID Date Data Source [id number] 11/06/2020 02:53:00 PM EDT [facility] Name Value Range Interpretation Code Description Data Ema rce(s) Supporting Document(s) Protein [Presence] in Urine by Test strip 30 mg/dL [facility]) Glucose [Presence] in Urine Laboratory test result [facility]) Ua Nitrite Laboratory test result [facility] [facility] Blood [Presence] in Urine by Visual Laboratory test result [facility] ([facility]) Ua Leuko Laboratory test result [facility] ([facility]) Ketones [Presence] in Urine by Test strip Laboratory test result [facility] ([facility]) Color of Urine Laboratory test result [facility] ([facility]) Ua Specific Amelia 1.015 1.003-1.030 [facility] ([facility]) Clarity of Urine Laboratory test result [facility] ([facility]) pH of Urine by Test strip 7.0 5.0-7.5 [facility] ([facility]) Bilirubin.total [Presence] in Urine by Test strip Laboratory test res ult [facility] ([facility]) Urobilinogen [Mass/volume] in Urine by Test strip 0.2 E.U./dL 0.0-1.0 [facility] ([facility]) ID Date Data Source [id number] 11/06/2020 02:51:00 PM EDT [facility] ([facility]) Name Value Range Interpretation Code Description Data Ema rce(s) Supporting Document(s) Bacteria identified in Urine by Culture Laboratory test result [facility] ([facility]) SPECIMEN DESCRIPTION URINE, COLLE CTION METHOD NOT SPECIFIED CULTURE RESULTS MIXED UROGENITAL DEIRDRE; PLEASE SUBMIT A NEW SPEC IMEN IF CLINICALLY INDICATED. REPORT STATUS FINAL 11/08/2020 ID Date Data Source [id number] 11/08/2020 07:41:09 AM EDT [facility] - CORE SPECIMEN DESCRIPTION URINE, COLLE CTION METHOD NOT SPECIFIEDCULTURE RESULTS MIXED UROGENITAL DEIRDRE; PLEASE SUBMIT A NEW SPEC IMEN IF CLINICALLY INDICATED.REPORT STATUS FINAL 11/08/2020 Name Value Range Interpretation Code Description Data Ema rce(s) Supporting Document(s) ID Date Data Source [id number] 11/06/2020 02:00:50 PM EDT Lab [facility] SPEC EXP DATE 11/16/2020ATI ENT ABO/Rh A POSITIVEANTIBODY SCREEN NEGATIVETESTING SITE PERFORMED AT [address] [place] [address] BANK COMMENT BLOOD TYPE CONFIRMED. Name Value Range Interpretation Code Description Data Ema rce(s) Supporting Document(s) ID Date Data Source [id number] 11/06/2020 01:36:41 PM EDT [facility] [place] Name Value Range Interpretation Code Description Data Ema rce(s) Supporting Document(s) SODIUM 140 mmol/L (136-145) [facility] [place] macario ISRAEL POTASSIUM 3.9 mmol/L (3.6-5.2) [facility] [place] [facility] CHLORIDE 110 mmol/L (100-108) H [facility] [place] [facility] CO2 27 mmol/L (22-31) [facility] [place] [facility] ANION GAP 3 mmol/L (7-16) L [facility] [place] [facility] UREA NITROGEN 16 mg/dL (7-24) [facility] [place] [facility] CREATININE 0.77 mg/dL (0.80-1.30) L [facility] [place] [facility] BUN/CREAT RATIO 20.8 RATIO (10.0-20.0) H [facility] GLUCOSE 116 mg/dL (70-99) H [facility] [place] [facility] CALCIUM 10.1 mg/dL (8.4-10.2) [facility] [place] [facility] TOTAL PROTEIN 7.1 g/dL (6.4-8.2) [facility] [place] [facility] ALBUMIN 3.1 g/dL (3.2-4.5) L [facility] [place] [facility] GLOBULIN 4.0 g/dL (2.7-4.3) [facility] [place] [facility] ALB/GLOB RATIO 0.8 RATIO [facility] [place] [facility] ALKALINE PHOSPHATASE 94 U/L (45-117) [facility] BILIRUBIN,TOTAL 0.6 mg/dL (0.0-1.0) [facility] [place] [facility] PLEASE NOTE:Total bilirubin results may be falselyelevated in patients taking Eltrombopag. AST (SGOT) 38 U/L (11-39) [facility] [place] [facility] ALT (SGPT) 31 U/L (12-78) [facility] [place] [facility] GFR >60 ml/min/1.73m2 (>59) [facility] [place] [facility] GFR ( AMER) >60 ml/min/1.73m2 (>59) [facility] [place] [facility] GFR INTERPRETATION [facility] --NORMAL KIDNEY FUNCTION OR MILD DISEASE - GFR >OR= 60CHRONIC KIDNEY DISEASE - GFR 15 - 59RENAL FAILURE - GFR <15 Est. GFR calculation based on the MDRDstudy equation, which assumes a steadystate for creatinine. Est. GFR should notbe used for medication dosing. ID Date Data Source [id number] 11/06/2020 01:25:50 PM EDT [facility] [place] [facility] [place] Name Value Range Interpretation Code Description Data Ema rce(s) Supporting Document(s) HEMOGLOBIN A1C @ 6.7 % (4.0-6.0) H [facility] [place] [facility] Performed using [employer] immunoassa y.Care must be taken when interpreting [id number] in patients with a hemoglobin variantor decreased erythrocyte lifespan. Values 5.7 - 6.4% suggest prediabetes.Values >=6.5% are diagnostic for diabetes.REFERENCE: DIABETES CARE 2018: 41(S13-S27).PERFORMED AT [address] [place] [address] EST AVERAGE GLUCOSE 146 mg/dL [facility] [place] ID Date Data Source [id number] 11/06/2020 01:09:23 PM EDT [facility] [place] [facility] [place] Name Value Range Interpretation Code Description Data Ema rce(s) Supporting Document(s) WBC 3.2 10*3/uL (4.1-11.0) L [facility] [place] [facility] [place] RBC 3.44 10*6/uL (4.60-6.10) L [facility] [place] [facility] HGB 9.6 g/dL (13.5-18.0) L [facility] [place] [facility] HCT 28.9 % (41.0-53.0) L [facility] [place] [facility] PERFORMED AT [address] [place] [address] MCV 84.2 fL (80.0-95.0) [facility] [place] [facility] MCH 27.9 pg (27.0-32.0) [facility] [place] [facility] MCHC 33.2 g/dL (32.0-36.0) [facility] [place] [facility] RDW 15.8 % (10.5-14.5) H [facility] [place] [facility] PLT 117 10*3/uL (150-450) L [facility] [place] [facility] MPV 8.8 fL (7.1-10.7) [facility] [place] [facility] NEUT % 69.0 % (35.0-75.0) [facility] [place] [facility] LYMPH % 10.3 % (16.0-52.0) L [facility] [place] [facility] MONO % 11.9 % (0.0-8.0) H [facility] [place] [facility] EOS % 6.5 % (0.0-5.0) H [facility] [place] [facility] BASO % 2.3 % (0.0-4.0) [facility] [place] [facility] NEUT # 2.2 10*3/uL (1.8-7.7) [facility] [place] [facility] LYMPH # 0.3 10*3/uL (1.2-4.8) L [facility] [place] [facility] MONO # 0.4 10*3/uL (0.0-0.8) [facility] [place] [facility] Eosinophils [#/volume] in Blood by Automated count 0.2 10*3/uL (0.0-0 .5) [facility] [place] [facility] BASO # 0.1 10*3/uL (0.0-0.2) [facility] [place] [facility] ID Date Data Source [id number] 07/20/2020 03:20:00 PM EST [facility] ([facility]) Name Value Range Interpretation Code Description Data Ema rce(s) Supporting Document(s) Bacteria identified in Urine by Culture Laboratory test result [facility]) SPECIMEN DESCRIPTION CATHETER,IND WELLING CULTURE RESULTS MIXED UROGENITAL DEIRDRE; PLEASE SUBMIT A NEW SPEC IMEN IF CLINICALLY INDICATED. REPORT STATUS FINAL 07/22/2020 ID Date Data Source [id number] 07/22/2020 09:37:50 AM EST [facility] - CORE SPECIMEN DESCRIPTION CATHETER,IND WELLINGCULTURE RESULTS MIXED UROGENITAL DEIRDRE; PLEASE SUBMIT A NEW SPEC IMEN IF CLINICALLY INDICATED.REPORT STATUS FINAL 07/22/2020 Name Value Range Interpretation Code Description Data Ema rce(s) Supporting Document(s) ID Date Data Source [id number] 07/20/2020 01:20:00 PM EST [facility] ([facility]) Name Value Range Interpretation Code Description Data Ema rce(s) Supporting Document(s) Glucose [Presence] in Urine Laboratory test result [facility] ([facility]) Protein [Presence] in Urine by Test strip 30 mg/dL [facility] ([facility]) Ua Nitrite Laboratory test result [facility] ([facility]) Ua Leuko Laboratory test result [facility] ([facility]) Color of Urine Laboratory test result [facility] ([facility]) Blood [Presence] in Urine by Visual Laboratory test result [facility] ([facility]) Ketones [Presence] in Urine by Test strip Laboratory test result [facility] ([facility]) Clarity of Urine Laboratory test result [facility] ([facility]) Ua Specific Amelia 1.015 1.003-1.030 [facility] NT ([facility]) pH of Urine by Test strip 7.0 5.0-7.5 [facility] ([facility]) Bilirubin.total [Presence] in Urine by Test strip Laboratory test res ult [facility] ([facility]) Urobilinogen [Mass/volume] in Urine by Test strip 0.2 E.U./dL 0.0-1.0 [facility] ([facility]) ID Date Data Source [id number] 05/30/2020 02:17:00 PM EST [facility] ([facility]) Name Value Range Interpretation Code Description Data Ema rce(s) Supporting Document(s) Bacteria identified in Urine by Culture Laboratory test result [facility] ([facility]) <content>SPECIMEN DESCRIPTION CATHETER,INDWELLING</content>
<content>CULTURE RESULTS >100,000 [...]
<content>CEFTAROLINE 0.25 SUSCEPTIBLE</content> ID Date Data Source [id number] 06/03/2020 07:48:59 AM EST Laboratory [facility] [...] rce(s) Supporting Document(s) ID Date Data Source [id number] 05/30/2020 02:11:00 PM EST [facility] ([facility]) Name Value Range Interpretation Code Description Data Ema rce(s) Supporting Document(s) Glucose [Presence] in Urine Laboratory test result [facility] ([facility]) Ua Nitrite Laboratory test result [facility] ([facility]) Protein [Presence] in Urine by Test strip 100 mg/dL [facility] ([facility]) Blood [Presence] in Urine by Visual Laboratory test result [facility] ([facility]) Ua Leuko Laboratory test result [facility] ([facility]) Color of Urine Laboratory test result [facility] ([facility]) Clarity of Urine Laboratory test result [facility] ([facility]) Ketones [Presence] in Urine by Test strip Laboratory test result [facility] ([facility]) Bilirubin.total [Presence] in Urine by Test strip Laboratory test res ult [facility] ([facility]) Ua Specific Amelia 1.020 1.003-1.030 [facility] ([facility]) pH of Urine by Test strip 6.0 5.0-7.5 [facility] ([facility]) Urobilinogen [Mass/volume] in Urine by Test strip 1.0 E.U./dL 0.0-1.0 [facility] ([facility]) ID Date Data Source [id number] 03/22/2020 11:21:00 AM EDT [facility] ([facility]) Name Value Range Interpretation Code Description Data Ema rce(s) Supporting Document(s) Glucose [Presence] in Urine Laboratory test result [facility] ([facility]) Protein [Presence] in Urine by Test strip Laboratory test result [facility] ([facility]) Ua Nitrite Laboratory test result [facility] ([facility]) Ua Leuko Laboratory test result [facility] ([facility]) Blood [Presence] in Urine by Visual Laboratory test result [facility] ([facility]) Color of Urine Laboratory test result [facility] ([facility]) Clarity of Urine Laboratory test result [facility] ([facility]) Ketones [Presence] in Urine by Test strip Laboratory test result [facility] ([facility]) Ua Specific Amelia Laboratory test result 1.003-1.030 [facility] ([facility]) Bilirubin.total [Presence] in Urine by Test strip Laboratory test res ult [facility] ([facility]) pH of Urine by Test strip 5.5 5.0-7.5 [facility] ([facility]) Urobilinogen [Mass/volume] in Urine by Test strip 0.2 E.U./dL 0.0-1.0 [facility] ([facility]) ID Date Data Source [id number] 03/20/2020 03:15:00 PM EDT [facility] ([facility]) Name Value Range Interpretation Code Description Data Ema rce(s) Supporting Document(s) Bacteria identified in Urine by Culture Laboratory test result [facility] ([facility]) SPECIMEN DESCRIPTION URINE, COLLE CTION METHOD NOT SPECIFIED CULTURE RESULTS >100,000 CFU/ML AEROCOCCUS URINAE NOTE: THERE ARE NO CLSI APPROVED CRITERIA FOR TESTING THE SUSCEPTIBILITY OF THIS ORGANISM TO ANTIBIOTICS. CONSULTATION WITH AN INFECTIOUS DISEASE PHYSICIAN OR PHARMACIST MAY BE WARRANTED IF THIS ORGANISM IS CLINICALLY SIGNIFICANT. REPORT STATUS FINAL 03/22/2020 ID Date Data Source [id number] 03/22/2020 09:29:42 AM EDT Laboratory [facility] - CORE SPECIMEN DESCRIPTION URINE, COLLE CTION METHOD NOT SPECIFIEDCULTURE RESULTS >100,000 CFU/ML AEROCOCCUS URINAENOTE: THERE ARE NO CLSI APPROVED CRITERIA FOR TESTING THESUSCEPTIBILITY OF THIS ORGANISM TO ANTIBIOTICS. CONSULTATION WITH ANINFECTIOUS DISEASE PHYSICIAN OR PHARMACIST MAY BE WARRANTED IF THISORGANISM IS CLINICALLY SIGNIFICANT. REPORT STATUS FINAL 03/22/2020 Name Value Range Interpretation Code Description Data Ema rce(s) Supporting Document(s) ID Date Data Source [id number] 03/20/2020 02:44:00 PM EDT [facility] ([facility]) Name Value Range Interpretation Code Description Data Ema rce(s) Supporting Document(s) Glucose [Presence] in Urine 100 mg/dL [facility] ([facility]) Ua Leuko Laboratory test result [facility] ([facility]) Protein [Presence] in Urine by Test strip Laboratory test result [facility] ([facility]) Ua Nitrite Laboratory test result [facility] ([facility]) Color of Urine Laboratory test result [facility] ([facility]) Blood [Presence] in Urine by Visual Laboratory test result [facility] ([facility]) Ketones [Presence] in Urine by Test strip Laboratory test result [facility] ([facility]) Clarity of Urine Laboratory test result [facility] ([facility]) Ua Specific Amelia 1.015 1.003-1.030 [facility] ([facility]) pH of Urine by Test strip 7.0 5.0-7.5 [facility] ([facility]) Bilirubin.total [Presence] in Urine by Test strip Laboratory test res ult [facility] ([facility]) Urobilinogen [Mass/volume] in Urine by Test strip 1.0 E.U./dL 0.0-1.0 [facility] ([facility]) ID Date Data Source [id number] 03/16/2020 02:59:00 PM EDT [facility] ([facility]) Name Value Range Interpretation Code Description Data Ema rce(s) Supporting Document(s) Bacteria identified in Urine by Culture Laboratory test result [facility] ([facility]) <content>SPECIMEN DESCRIPTION URI NE, COLLECTION METHOD NOT SPECIFIED</content>
<content>CULTURE RESULTS <10,000 CFU/ML REPRESENTING URETHRAL DEIRDRE</content>
<content>REPORT STATUS FINAL 03/18/2020</content> ID Date Data Source [id number] 03/18/2020 07:58:46 AM EDT [facility] - CORE SPECIMEN DESCRIPTION URINE, COLLE CTION METHOD NOT SPECIFIEDCULTURE RESULTS <10,000 CFU/ML REPRESENTING URETHRAL [place] STATUS FINAL 03/18/2020 Name Value Range Interpretation Code Description Data Ema rce(s) Supporting Document(s) ID Date Data Source [id number] 03/16/2020 02:50:00 PM EDT [facility] ([facility]) Name Value Range Interpretation Code Description Data Ema rce(s) Supporting Document(s) Glucose [Presence] in Urine Laboratory test result [facility] ([facility]) Protein [Presence] in Urine by Test strip Laboratory test result [facility] ([facility]) Ua Nitrite Laboratory test result [facility] ([facility]) Ua Leuko Laboratory test result [facility] ([facility]) Ketones [Presence] in Urine by Test strip Laboratory test result [facility] ([facility]) Blood [Presence] in Urine by Visual Laboratory test result [facility] ([facility]) Color of Urine Laboratory test result [facility] ([facility]) Clarity of Urine Laboratory test result [facility] ([facility]) Ua Specific Amelia 1.015 1.003-1.030 [facility] ([facility]) Bilirubin.total [Presence] in Urine by Test strip Laboratory test res ult [facility] ([facility]) pH of Urine by Test strip 7.0 5.0-7.5 [facility] ([facility]) Urobilinogen [Mass/volume] in Urine by Test strip 0.2 E.U./dL 0.0-1.0 [facility] ([facility]) ID Date Data Source [id number] 03/14/2020 10:54:17 AM EDT [facility] INFORMATIONPatient [facility]N Name Date of Age Gend*PT [id number] Sarina Linares 1940 79 years M SDCPT Location Admission Date/Time Visit ID Attending ProviderASNE AMBULATO* 03/02/20 0825 --- --- EPI ID CSN Admitting Provider [id number] Mar Castaneda MD([id number]) [place] [address] OPERATIVE REPORT OPNAME: MILAGROS SARINA Velasco#: [id number] #: KAILEYL ADMISSION DATE: 03/02/2020DOB: 1940 SEX: M PT TYPE: H SURENRICOT #: [id number] CARE PHYSICIAN:REFERRING PHYSICIAN: MAR ALICEAATE OF OPERATION: [...] furthertherapy, risk of general anesthesia, PE, CVA, [place], systemic effect of them edication and paralysis of the bladder. All questions were answered.Informed consent was obtained.DESCRIPTION OF PROCEDURE:The patient was prepped and draped in normal sterile fashion with the areaof interest being the genitalia exposed in the dorsal lithotomy positionafter induction of adequate MAC anesthetic. The patient did receivepreoperative IV antibiotics as well as pneumatic compression stockingsprior to induction of anesthesia.A 19-Arabic rigid cystoscope was advanced through the urethra [...] He already has antibiotics at home.Recommendation for [id number] pain medications for any discomfort.He should remain well hydrated.RECOMMENDATIONS:No heavy lifting, straining, exercise. No driving on pain medication. Hewill follow up in the office in 2 weeks as scheduled. Findings werereviewed with the patient's over the phone postoperatively.TIMOTEO DAVIDSON/ARCADIO Job #: [id number] DOC #: [id number] Name Value Range Interpretation Code Description Data [facility] rce(s) Supporting Document(s) ID Date Data Source [id number] 03/02/2020 11:53:00 AM EDT [facility] ([facility]) Name Value Range Interpretation Code Description [facility] Document(s) Composition in Stone Laboratory test result [facility] ([facility]) Calculi composed primarily of: 50% magnesium ammonium [...] composition determined by FTIR analysis. Performed By: [employer] [address] [place] [address] Flower Stripper: Flor Rosales MD Weight of Unspecified specimen 76 mg [facility] ([facility]) Number of Stones 2 [facility] ([facility]) Size [Entitic volume] of Stone Laboratory test result [facility] ([facility]) Unit: mm Appearance of Stone Laboratory test result [facility] ([facility]) Specimen consists of two, various sized (1 mm to 9 mm), montero, irregular calculi fragments. ID Date Data Source [id number] 03/07/2020 07:23:28 PM EDT [facility] [place] [facility] [place] Name Value Range Interpretation Code Description Data Ema rce(s) Supporting Document(s) COMPOSITION [facility] [place] [facility] See Note Calculi composed primarily of: [...] composition determined by FTIR analysis. Performed By: [employer] [address] [place] [address] Flower Stripper: Flor Rosales MD MASS 76 mg [facility] [place] [facility] CALCULI NUMBER 2 [facility] [place] [facility] CALCULI SIZE [facility] VariousUnit: mm CALCULI DESCRIPTION [facility] See Note Specimen consists of two, vario us sized (1 mm to 9 mm), montero, irregular calculi fragments. ID Date Data Source [id number] 03/02/2020 10:50:03 AM EDT [facility] INFORMATIONPatient MRN Name Date of Age Gend*PT [id number] Sarina Linares 1940 79 years M SDCPT Location Admission Date/Time Visit ID Attending ProviderASNE AMBULATO* 03/02/20 0825 --- Mar Castaneda MD([id number]) EPI ID CSN Admitting Provider [id number] Mar Castaneda MD([id number])H&P reviewed. The patient was examined and there [...] (finding) completed Current drinker of alcohol (finding) [facility] Alcohol intake 04/19/2021 12:00:00 AM EST Current drinker of al cohol (finding) completed Current drinker of alcohol (finding) [facility] Alcohol intake 04/18/2021 12:00:00 AM EST Current drinker of al cohol (finding) completed Current drinker of alcohol (finding) [facility] Smoking 04/02/2021 12:00:00 AM EDT Never Smoker completed Never S moker eCW1 ([facility]) Smoking 03/20/2021 12:00:00 AM EDT Never Smoked Cigarettes com pleted Never Smoked Cigarettes [facility] ([facility]) Smoking 03/05/2021 12:00:00 AM EDT Never Smoker completed Never S moker eCW1 ([facility]) Smoking 03/05/2021 12:00:00 AM EDT Never Smoker completed Never S moker eCW1 ([facility]) Smoking 03/05/2021 12:00:00 AM EDT Never Smoker completed Never S moker eCW1 ([facility]) Smoking 03/05/2021 12:00:00 AM EDT Never Smoker completed Never S moker eCW1 ([facility]) Smoking 03/05/2021 12:00:00 AM EDT Never Smoker completed Never S moker eCW1 ([facility]) Tobacco use and exposure 02/28/2021 12:00:00 AM EDT Smokeless to bacco non-user completed Smokeless tobacco non-user [facility] Smoking 02/28/2021 12:00:00 AM EDT Never smoked tobacco comple biju Never smoked tobacco [facility] Smoking 02/20/2021 12:00:00 AM EDT Never Smoker completed Never S moker eCW1 ([facility]) Smoking 01/31/2021 12:58:00 AM EDT Denies Ever Smoked complete d Denies Ever Smoked [facility] Smoking 01/01/2021 12:00:00 AM EDT Never Smoker completed Never S moker eCW1 ([facility]) Smoking 01/01/2021 12:00:00 AM EDT Never Smoker completed Never S moker eCW1 ([facility]) Smoking 01/01/2021 12:00:00 AM EDT Never Smoker completed Never S moker eCW1 ([facility]) Smoking 01/01/2021 12:00:00 AM EDT Never Smoker completed Never S moker eCW1 ([facility]) Smoking 01/01/2021 12:00:00 AM EDT Never Smoker completed Never S moker eCW1 ([facility]) Smoking 01/01/2021 12:00:00 AM EDT Never Smoker completed Never S moker eCW1 ([facility]) Smoking 01/01/2021 12:00:00 AM EDT Never Smoker completed Never S moker eCW1 ([facility]) Smoking 01/01/2021 12:00:00 AM EDT Never Smoker completed Never S moker eCW1 ([facility]) Smoking 11/28/2020 12:00:00 AM EDT Never Smoker completed Never S moker eCW1 ([facility]) Smoking 11/28/2020 12:00:00 AM EDT Never Smoker completed Never S moker eCW1 ([facility]) Smoking 11/28/2020 12:00:00 AM EDT Never Smoker completed Never S moker eCW1 ([facility]) Smoking 11/28/2020 12:00:00 AM EDT Never Smoker completed Never S moker eCW1 ([facility]) Smoking 11/21/2020 04:02:00 PM EDT Denies Ever Smoked complete d Denies Ever Smoked [facility] Smoking 11/11/2020 12:00:00 AM EDT Never Smoker completed Never S moker eCW1 ([facility]) Smoking 11/11/2020 12:00:00 AM EDT Never Smoker completed Never S moker eCW1 ([facility]) Smoking 11/07/2020 12:00:00 AM EDT Never Smoker completed Never S moker eCW1 ([facility]) Smoking 05/11/2020 12:00:00 AM EST Never Smoker completed Never S moker eCW1 ([facility]) Smoking 05/11/2020 12:00:00 AM EST Never Smoker completed Never S moker eCW1 ([facility]) Smoking 05/11/2020 12:00:00 AM EST Never Smoker completed Never S moker eCW1 ([facility]) Smoking 05/11/2020 12:00:00 AM EST Never Smoker completed Never S moker eCW1 ([facility]) Vital Signs ID Date Data Source UNK Name Value Range Interpretation Code Description Data Source(s) Body weight 175.0 [lb_av] 175.0 [lb_av] eCW1 ([facility]) Body height 71 [in_i] 71 [in_i] eCW1 ([facility]) Diastolic blood pressure 56 mm[Hg] 56 mm[Hg] eCW1 ([facility]) Body mass index (BMI) [Ratio] 24.40 kg/m2 24.40 kg/m2 eCW1 ([facility]) Heart rate 99 /min 99 /min eCW1 ([facility] Respiratory rate 18 /min 18 /min [facility]CW[facility] Body temperature 97.1 [degF] 97.1 [degF] eCW1 ( [facility]) Systolic blood pressure 102 mm[Hg] 102 mm[Hg] e CW1 ([facility]) Body weight 79.380 kg 79.380 kg [facility] ([facility] Body mass index (BMI) [Ratio] 24.4 kg/m2 24.4 k g/m2 [facility] ([facility]) Systolic blood pressure 125 mm[Hg] 125 mm[Hg] M [facility]ENT ([facility]) Diastolic blood pressure 60 mm[Hg] 60 mm[Hg] [facility] ([facility]) Heart rate 97 /min 97 /min [facility] ([facility] Body height 71 [in_i] 71 [in_i] [facility] ([facility] 5'11" Body weight 175.00 [lb_av] 175.00 [lb_av] [facility] ([facility]) Body mass index (BMI) [Ratio] 27.48 kg/m2 No rmal (applies to non-numeric results) 27.48 kg/m2 [facility] Body height 179.2224 cm Normal (applies to non-numeric res ults) 179.2224 cm [facility] Body weight Measured 89.358 kg Normal (applies to n on-numeric results) 89.358 kg [facility] Body temperature 36.5 ifeanyi Normal (applies to non-numeric results) 36.5 ifeanyi [facility] Diastolic blood pressure 54 mm[Hg] Normal (applies to non-numeric results) 54 mm[Hg] [facility] Systolic blood pressure 117 mm[Hg] Normal (applies t o non-numeric results) 117 mm[Hg] [facility] Deprecated Oxygen saturation in Capillary blood by Oximetry 96 % Normal (applies to non-numeric results) 96 % [facility] Heart rate 83 min Normal (applies to non-numeric resul ts) 83 min [facility] Respiratory rate 18 min Normal (applies to non-numeric results) 18 min [facility] Body weight 199.4 [lb_av] 199.4 [lb_av] eCW1 ([facility]) Body height 71 [in_i] 71 [in_i] eCW1 ([facility]) Body mass index (BMI) [Ratio] 27.81 kg/m2 27.81 kg/m2 [facility] ([facility]) Heart rate 105 /min 105 /min eCW1 ([facility]) Respiratory rate 18 /min 18 /min eCW1 [facility] Body temperature 97.8 [degF] 97.8 [degF] eCW1 ( [facility]) Systolic blood pressure 124 mm[Hg] 124 mm[Hg] e CW1 ([facility]) Diastolic blood pressure 58 mm[Hg] 58 mm[Hg] eCW1 ([facility]) Oxygen saturation in Arterial blood by Pulse oximetry 95 % 95 % [facility] ([facility]) Respiratory rate 18 /min 18 /min [facility] ( [facility]) Body height 71 [in_i] 71 [in_i] [facility] ([facility] 5'11" Body weight 198.00 [lb_av] 198.00 [lb_av] [facility] ([facility]) Body weight 89.813 kg 89.813 kg [facility] ([facility] Body mass index (BMI) [Ratio] 27.6 kg/m2 27.6 k g/m2 [facility] ([facility]) Systolic blood pressure 142 mm[Hg] 142 mm[Hg] M [facility] ([facility]) Diastolic blood pressure 66 mm[Hg] 66 mm[Hg] [facility] ([facility]) Heart rate 105 /min 105 /min [facility] ([facility]) Body temperature 97.7 [degF] 97.7 [degF] [facility] ([facility]) Systolic blood pressure 136 mm[Hg] Normal (applies t o non-numeric results) 136 mm[Hg] [facility] Diastolic blood pressure 70 mm[Hg] Normal (applies to non-numeric results) 70 mm[Hg] [facility] Heart rate 90 min Normal (applies to non-numeric resul ts) 90 min [facility] Deprecated Oxygen saturation in Capillary blood by Oximetry 98 % Normal (applies to non-numeric results) 98 % [facility] Respiratory rate 16 min Normal (applies to non-numeric results) 16 min [facility] Systolic blood pressure 136 mm[Hg] 136 mm[Hg] M [facility] ([facility]) Diastolic blood pressure 70 mm[Hg] 70 mm[Hg] [facility] ([facility]) Heart rate 90 /min 90 /min [facility] ([facility]) Respiratory rate 16 /min 16 /min [facility] ( [facility]) Oxygen saturation in Arterial blood by Pulse oximetry 98 % 98 % [facility] ([facility]) Body mass index (BMI) [Ratio] 28.0 kg/m2 No rmal (applies to non-numeric results) 28.0 kg/m2 [facility] Body height 179.2224 cm Normal (applies to non-numeric res ults) 179.2224 cm [facility] Body temperature 36.4 ifeanyi Normal (applies to non-numeric results) 36.4 ifeanyi [facility] Body weight Measured 201 [lb_av] Normal (applies to n on-numeric results) 201 [lb_av] [facility] Body height 71 [in_i] 71 [in_i] [facility] ([facility] 5'11" Body weight 210.00 [lb_av] 210.00 [lb_av] [facility] T ([facility]) Body weight 95.256 kg 95.256 kg [facility] ([facility] Body mass index (BMI) [Ratio] 29.3 kg/m2 29.3 k g/m2 [facility] ([facility]) Systolic blood pressure 128 mm[Hg] 128 mm[Hg] M [facility] ([facility]) Diastolic blood pressure 70 mm[Hg] 70 mm[Hg] [facility] ([facility]) Heart rate 109 /min 109 /min [facility] Body weight 223.2 [lb_av] 223.2 [lb_av] eCW1 ([facility]) Body height 71 [in_i] 71 [in_i] eCW1 ([facility]) Body mass index (BMI) [Ratio] 31.13 kg/m2 31.13 kg/m2 eCW1 ([facility]) Heart rate 116 /min 116 /min eCW1 ([facility]) Respiratory rate 18 /min 18 /min eCW1 [facility] Body temperature 97.8 [degF] 97.8 [degF] eCW1 ( [facility]) Systolic blood pressure 104 mm[Hg] 104 mm[Hg] e CW1 ([facility]) Diastolic blood pressure 54 mm[Hg] 54 mm[Hg] eCW1 ([facility]) Body height 71 [in_i] 71 [in_i] [facility] ([facility] 5'11" Heart rate 110 /min 110 /min [facility] Body weight 216.00 [lb_av] 216.00 [lb_av] [facility] ([facility]) Body weight 97.978 kg 97.978 kg [facility] ([facility] Body mass index (BMI) [Ratio] 30.1 kg/m2 30.1 k g/m2 [facility] ([facility]) Systolic blood pressure 133 mm[Hg] 133 mm[Hg] M [facility] ([facility]) Diastolic blood pressure 64 mm[Hg] 64 mm[Hg] [facility] ([facility]) Body weight 216.0 [lb_av] 216.0 [lb_av] eCW1 ([facility]) Body height 71 [in_i] 71 [in_i] eCW1 ([facility]) Body mass index (BMI) [Ratio] 30.12 kg/m2 30.12 kg/m2 eCW1 ([facility]) Heart rate 97 /min 97 /min eCW1 ([facility]) Respiratory rate 18 /min 18 /min eCW1 [facility] Body temperature 97.4 [degF] 97.4 [degF] eCW1 ( [facility]) Systolic blood pressure 104 mm[Hg] 104 mm[Hg] e CW1 ([facility]) Diastolic blood pressure 52 mm[Hg] 52 mm[Hg] eCW1 ([facility]) Respiratory rate 18 min Normal (applies to non-numeric results) 18 min [facility] Body temperature 36.5 ifeanyi Normal (applies to non-numeric results) 36.5 ifeanyi [facility] Systolic blood pressure 160 mm[Hg] Normal (applies t o non-numeric results) 160 mm[Hg] [facility] Diastolic blood pressure 69 mm[Hg] Normal (applies to non-numeric results) 69 mm[Hg] [facility] Heart rate 83 min Normal (applies to non-numeric resul ts) 83 min [facility] Systolic blood pressure 160 mm[Hg] 160 mm[Hg] M [facility] ([facility]) Diastolic blood pressure 69 mm[Hg] 69 mm[Hg] [facility] ([facility]) Heart rate 83 /min 83 /min [facility] ([facility] Respiratory rate 18 /min 18 /min [facility] ( [facility]) Body temperature 36.5 [degF] 36.5 [degF] [facility] ([facility]) Deprecated Oxygen saturation in Capillary blood by Oximetry 99 % Normal (applies to non-numeric results) 99 % [facility] Oxygen saturation in Arterial blood by Pulse oximetry 99 % 99 % [facility] ([facility]) Body height 179.2224 cm Normal (applies to non-numeric res ults) 179.2224 cm [facility] Body weight Measured 89.9 kg Normal (applies to non-num gayatri results) 89.9 kg [facility] Body mass index (BMI) [Ratio] 27.64 kg/m2 No rmal (applies to non-numeric results) 27.64 kg/m2 [facility] Body weight 209.2 [lb_av] 209.2 [lb_av] eCW1 ([facility]) Body height 71 [in_i] 71 [in_i] eCW1 ([facility]) Body mass index (BMI) [Ratio] 29.17 kg/m2 29.17 kg/m2 eCW1 ([facility]) Heart rate 94 /min 94 /min eCW1 ([facility]) Respiratory rate 18 /min 18 /min eCW1 [facility] Body temperature 97.7 [degF] 97.7 [degF] eCW1 ( [facility]) Systolic blood pressure 124 mm[Hg] 124 mm[Hg] e CW1 ([facility]) Diastolic blood pressure 64 mm[Hg] 64 mm[Hg] eCW1 ([facility]) Body weight 92.081 kg 92.081 kg [facility] ([facility] Body mass index (BMI) [Ratio] 28.3 kg/m2 28.3 k g/m2 [facility] ([facility]) Systolic blood pressure 149 mm[Hg] 149 mm[Hg] M [facility] ([facility]) Diastolic blood pressure 75 mm[Hg] 75 mm[Hg] [facility] ([facility]) Heart rate 86 /min 86 /min [facility] Body height 71 [in_i] 71 [in_i] [facility] ([facility] 5'11" Body weight 203.00 [lb_av] 203.00 [lb_av] [facility] T ([facility]) Body weight 240.00 [lb_av] 240.00 [lb_av] [facility] ([facility]) Body height 71 [in_i] 71 [in_i] [facility] 5'11" Body weight 108.864 kg 108.864 kg [facility] ([facility] Body mass index (BMI) [Ratio] 33.5 kg/m2 33.5 k g/m2 [facility] ([facility]) Body temperature 97.6 [degF] 97.6 [degF] [facility] ([facility]) Body weight 211 [lb_av] 211 [lb_av] eCW1 ([facility]) Body height 71 [in_i] 71 [in_i] eCW1 ([facility]) Body mass index (BMI) [Ratio] 29.43 kg/m2 29.43 kg/m2 eCW1 ([facility]) Systolic blood pressure 146 mm[Hg] 146 mm[Hg] e CW1 ([facility]) Diastolic blood pressure 82 mm[Hg] 82 mm[Hg] eCW1 ([facility]) Body height 71 [in_i] 71 [in_i] eCW1 ([facility]) Body mass index (BMI) [Ratio] 29.43 kg/m2 29.43 kg/m2 W1 ([facility]) Body weight 211 [lb_av] 211 [lb_av] eCW1 ([facility]) Heart rate 92 /min 92 /min eCW1 ([facility]) Systolic blood pressure 142 mm[Hg] 142 mm[Hg] e CW1 ([facility]) Body temperature 97.3 [degF] 97.3 [degF] eCW1 ( [facility]) Diastolic blood pressure 78 mm[Hg] 78 mm[Hg] eCW1 ([facility]) Respiratory rate 18 /min 18 /min eCW1 [facility] Body weight 240.00 [lb_av] 240.00 [lb_av] [facility] T ([facility]) Body height 71 [in_i] 71 [in_i] [facility] 5'11" Body weight 108.864 kg 108.864 kg [facility] ([facility] Body mass index (BMI) [Ratio] 33.5 kg/m2 33.5 k g/m2 [facility] ([facility]) Systolic blood pressure 155 mm[Hg] 155 mm[Hg] M EDENT ([facility]) Diastolic blood pressure 67 mm[Hg] 67 mm[Hg] [facility] ([facility]) Heart rate 101 /min 101 /min [facility] ([facility] Heart rate 90 /min 90 /min [facility] Body height 71 [in_i] 71 [in_i] [facility] ([facility] 5'11" Body weight 240.00 [lb_av] 240.00 [lb_av] [facility] T ([facility]) Body weight 108.864 kg 108.864 kg [facility] ([facility] Body mass index (BMI) [Ratio] 33.5 kg/m2 33.5 k g/m2 [facility] ([facility]) Systolic blood pressure 159 mm[Hg] 159 mm[Hg] M [facility]ENT ([facility]) Diastolic blood pressure 70 mm[Hg] 70 mm[Hg] [facility] ([facility]) ID Date Data Source [id number] 04/24/2021 05:31:06 PM [facility] Name Value Range Interpretation Code Description Data Source(s) WEIGHT RECORDED 170 lb 170 lb [facility] Body height Measured 71 in 71 in [facility] ID Date Data Source [id number] 04/15/2021 08:59:01 AM [facility] Name Value Range Interpretation Code Description Data Source(s) WEIGHT RECORDED 175 lb 175 lb [facility] Body height Measured 71 in 71 in [facility] Patient Treatment Plan of Care Planned Activity Planned Date Details Description Data Source (s) Sucralfate 1000 MG Oral Tablet 04/24/2021 12:00:00 AM [facility] Nadolol 20 MG Oral Tablet 04/24/2021 12:00:00 AM [facility] dextrose 50 % IV solution 25 mL 04/23/2021 04:52:45 PM [facility] Glucagon 1 MG Injection 04/23/2021 04:52:45 PM [facility] Glucose 0.417 MG/MG Oral Gel 04/23/2021 04:52:45 PM [facility] dextrose 50 % IV solution 25 mL 04/23/2021 12:31:03 PM [facility] Glucagon 1 MG Injection 04/23/2021 12:31:03 PM [facility] montelukast 10 MG Oral Tablet 04/12/2021 12:00:00 AM [facility] Abdominal Binder/Elastic 3XL - 03/05/2021 12:00:00 AM EDT eCW1 ([facility]) Abdominal Binder/Elastic 3XL - 03/05/2021 12:00:00 AM EDT eCW1 ([facility]) Abdominal Binder/Elastic 3XL - 03/05/2021 12:00:00 AM EDT eCW1 ([facility]) Abdominal Binder/Elastic 3XL - 03/05/2021 12:00:00 AM EDT eCW1 ([facility]) Abdominal Binder/Elastic 3XL - 03/05/2021 12:00:00 AM EDT eCW1 ([facility]) HydrOXYzine HCl 10 MG 01/08/2021 01:00:00 AM EDT [facility] ([facility]) Hydroxyzine Hydrochloride 10 MG Oral Tablet 01/08/2021 12:00:00 AM EDT eCW1 ([facility]) Hydroxyzine Hydrochloride 10 MG Oral Tablet 01/08/2021 12:00:00 AM EDT eCW1 ([facility]) Hydroxyzine Hydrochloride 10 MG Oral Tablet 01/08/2021 12:00:00 AM EDT eCW1 ([facility]) Hydroxyzine Hydrochloride 10 MG Oral Tablet 01/08/2021 12:00:00 AM EDT eCW1 ([facility]) Hydroxyzine Hydrochloride 10 MG Oral Tablet 01/08/2021 12:00:00 AM EDT eCW1 ([facility]) Hydroxyzine Hydrochloride 10 MG Oral Tablet 01/08/2021 12:00:00 AM EDT eCW1 ([facility]) Hydroxyzine Hydrochloride 10 MG Oral Tablet 01/08/2021 12:00:00 AM EDT eCW1 ([facility]) Hydroxyzine Hydrochloride 10 MG Oral Tablet 01/08/2021 12:00:00 AM EDT eCW1 ([facility]) Hydroxyzine Hydrochloride 10 MG Oral Tablet 01/08/2021 12:00:00 AM EDT eCW1 ([facility]) Hydroxyzine Hydrochloride 10 MG Oral Tablet 01/08/2021 12:00:00 AM EDT eCW1 ([facility]) Hydroxyzine Hydrochloride 10 MG Oral Tablet 01/08/2021 12:00:00 AM EDT eCW1 ([facility]) Hydroxyzine Hydrochloride 10 MG Oral Tablet 01/08/2021 12:00:00 AM EDT eCW1 ([facility]) Hydroxyzine Hydrochloride 10 MG Oral Tablet 01/08/2021 12:00:00 AM EDT eCW1 ([facility]) Hydroxyzine Hydrochloride 10 MG Oral Tablet 01/08/2021 12:00:00 AM EDT eCW1 ([facility]) Losartan Potassium 100 MG 01/07/2021 01:00:00 AM EDT [place] ([facility]) Spironolactone 25 MG 01/07/2021 01:00:00 AM EDT [facility] ([facility]) Losartan Potassium 50 MG Oral Tablet 01/01/2021 12:00:00 AM EDT eCW1 ([facility]) Spironolactone 25 MG Oral Tablet 01/01/2021 12:00:00 AM EDT eCW1 ([facility]) Spironolactone 25 MG Oral Tablet 01/01/2021 12:00:00 AM EDT eCW1 ([facility]) Spironolactone 25 MG Oral Tablet 01/01/2021 12:00:00 AM EDT eCW1 ([facility]) Spironolactone 25 MG Oral Tablet 01/01/2021 12:00:00 AM EDT eCW1 ([facility]) Losartan Potassium 100 MG Oral Tablet 01/01/2021 12:00:00 AM EDT eCW1 ([facility]) Spironolactone 25 MG Oral Tablet 01/01/2021 12:00:00 AM EDT eCW1 ([facility]) Losartan Potassium 100 MG Oral Tablet 01/01/2021 12:00:00 AM EDT eCW1 ([facility]) Spironolactone 25 MG Oral Tablet 01/01/2021 12:00:00 AM EDT eCW1 ([facility]) Losartan Potassium 100 MG Oral Tablet 01/01/2021 12:00:00 AM EDT eCW1 ([facility]) Spironolactone 25 MG Oral Tablet 01/01/2021 12:00:00 AM EDT eCW1 ([facility]) Spironolactone 25 MG Oral Tablet 01/01/2021 12:00:00 AM EDT eCW1 ([facility]) Losartan Potassium 100 MG Oral Tablet 01/01/2021 12:00:00 AM EDT eCW1 ([facility]) Spironolactone 25 MG Oral Tablet 01/01/2021 12:00:00 AM EDT eCW1 ([facility]) Losartan Potassium 100 MG Oral Tablet 01/01/2021 12:00:00 AM EDT eCW1 ([facility]) Spironolactone 25 MG Oral Tablet 01/01/2021 12:00:00 AM EDT eCW1 ([facility]) Losartan Potassium 100 MG Oral Tablet 01/01/2021 12:00:00 AM EDT eCW1 ([facility]) Spironolactone 25 MG Oral Tablet 01/01/2021 12:00:00 AM EDT eCW1 ([facility]) Losartan Potassium 100 MG Oral Tablet 01/01/2021 12:00:00 AM EDT eCW1 ([facility]) Spironolactone 25 MG Oral Tablet 01/01/2021 12:00:00 AM EDT eCW1 ([facility]) Losartan Potassium 100 MG Oral Tablet 01/01/2021 12:00:00 AM EDT eCW1 ([facility]) Spironolactone 25 MG Oral Tablet 01/01/2021 12:00:00 AM EDT eCW1 ([facility]) Spironolactone 25 MG Oral Tablet 01/01/2021 12:00:00 AM EDT eCW1 ([facility]) Losartan Potassium 100 MG Oral Tablet 01/01/2021 12:00:00 AM EDT eCW1 ([facility]) Potassium Chloride 12/31/2020 01:00:00 AM [facility] Colace 100 MG 12/31/2020 01:00:00 AM EDT [facility] Lasix 20 MG 12/24/2020 01:00:00 AM EDT N [facility] ([facility]) Furosemide 20 MG Oral Tablet [Lasix] 12/24/2020 12:00:00 AM EDT eCW1 ([facility]) Potassium Chloride CR 15 MEQ 12/24/2020 12:00:00 AM EDT eCW1 ([facility]) Furosemide 40 MG Oral Tablet [Lasix] 12/24/2020 12:00:00 AM EDT eCW1 ([facility]) Furosemide 40 MG Oral Tablet [Lasix] 12/24/2020 12:00:00 AM EDT eCW1 ([facility]) Furosemide 40 MG Oral Tablet [Lasix] 12/24/2020 12:00:00 AM EDT eCW1 ([facility]) Furosemide 40 MG Oral Tablet [Lasix] 12/24/2020 12:00:00 AM EDT eCW1 ([facility]) Furosemide 40 MG Oral Tablet [Lasix] 12/24/2020 12:00:00 AM EDT eCW1 ([facility]) Furosemide 20 MG Oral Tablet [Lasix] 12/24/2020 12:00:00 AM EDT eCW1 ([facility]) Furosemide 20 MG Oral Tablet [Lasix] 12/24/2020 12:00:00 AM EDT eCW1 ([facility]) Furosemide 20 MG Oral Tablet [Lasix] 12/24/2020 12:00:00 AM EDT eCW1 ([facility]) Furosemide 20 MG Oral Tablet [Lasix] 12/24/2020 12:00:00 AM EDT eCW1 ([facility]) Furosemide 40 MG Oral Tablet [Lasix] 12/24/2020 12:00:00 AM EDT eCW1 ([facility]) Furosemide 20 MG Oral Tablet [Lasix] 12/24/2020 12:00:00 AM EDT eCW1 ([facility]) Furosemide 20 MG Oral Tablet [Lasix] 12/24/2020 12:00:00 AM EDT eCW1 ([facility]) Furosemide 20 MG Oral Tablet [Lasix] 12/24/2020 12:00:00 AM EDT eCW1 ([facility]) Furosemide 20 MG Oral Tablet [Lasix] 12/24/2020 12:00:00 AM EDT eCW1 ([facility]) Furosemide 20 MG Oral Tablet [Lasix] 12/24/2020 12:00:00 AM EDT eCW1 ([facility]) Furosemide 20 MG Oral Tablet [Lasix] 12/24/2020 12:00:00 AM EDT eCW1 ([facility]) Potassium Chloride CR 15 MEQ 12/24/2020 12:00:00 AM EDT eCW1 ([facility]) Ferrous Sulfate 325 (65 Fe) MG 11/30/2020 01:00:00 AM [facility]T [facility] Melatonin 10 MG 11/30/2020 01:00:00 AM EDT [facility]) MetFORMIN HCl ER (MOD) 500 MG 11/30/2020 01:00:00 AM EDT [facility] ([facility]) Lidocaine Pain Relieving 4 % 11/30/2020 01:00:00 AM EDT [facility] Losartan Potassium-HCTZ 100-12.5 MG 11/24/2020 01:00:00 AM EDT [facility] ([facility]) MetFORMIN HCl 500 MG 11/24/2020 01:00:00 AM EDT [facility] ([facility]) Colace 100 MG 11/24/2020 01:00:00 AM EDT [facility] ([facility]) Ferrous Sulfate 324 MG 11/24/2020 01:00:00 AM EDT [facility] ([facility]) Ciprofloxacin HCl 750 MG 11/24/2020 01:00:00 AM EDT [facility] ([facility]) Lancets 28 G 11/24/2020 01:00:00 AM EDT [facility] ([facility]) FreeStyle [place] Lite w/Device 11/24/2020 01:00:00 AM EDT [facility] ([facility]) Tylenol Extra Strength 500 MG 11/24/2020 01:00:00 AM EDT [facility] ([facility]) Tylenol PM 11/24/2020 01:00:00 AM EDT [facility] ([facility])
--- NOTE | 2021-04-28 15:37 | HPEPDOC ---
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 Patient was brought to the ER with his who reports that he developed confusion yesterday evening while they were eating dinner and he had trouble remembering where she was. He has not had oral intake since that time. She denies him falling or injuring his head. His ammonia level is 128. He has an elevaed Cr 1.6. CT abdo showing large volume ascites. At the time my examination the patient is very confused and is unable to provide adequate review of systems or history. According to his since being discharged from [facility] on April 21 he was admitted at [facility] where he underwent an embolization procedure to control bleeding from his urostomy. Per he also underwent an upper endoscopy which revealed several esophageal varices which were nonbleeding and were treated. We will certainly obtain records from [facility]. I also had a conversation with the patient's oncologist at [facility] Dr. Freeman. He informed me that the patient has had enlargement of his hepatocellular carcinoma with further compression of the portal venous system. He is currently plan for immunotherapy and I suggested that the patient may follow-up with [facility] if the family so chooses. I also discussed the patient's case with Dr. Bray recommended treatment of hepatic encephalopathy using lactulose rifaximin as well as IV fluids. Patient admitted to hospital service with planned paracentesis and will be continued on empiric Zosyn for SBP treatment/prophylaxis. Certainly patient will need SBP prophylaxis upon discharge for the remainder of his life. Patient's has decided for DNR/DNI status and completed the MOST form which was witnessed and signed. PAST MEDICAL HISTORY: Type 2 diabetes mellitus Hypercholesterolemia History of malignant neoplasm of the bladder History of malignant neoplasm of the prostate Radiation proctitis Thrombocytopenia History of urinary calculi Nonalcoholic steatohepatitis Insomnia History of adenomatous polyp of the colon Leg cramps Knee arthritis Essential hypertension PAST SURGICAL HISTORY: IR embolization to ileal conduit (04/2021) EGD at [facility] (04/2021) - records requested onsillectomy Prostate biopsy Cystoscopy with TURBT, 2008 and 2010 Urethral stricture dilation, 2011 Robotic right ureteral reimplantation, 2010 Multiple cystoscopies, last in 2018 TURP, 2019 Prostatectomy, October 2020 Colonoscopy Right rotator cuff tear repair Biopsy of mandibular bone, 2013 Colonoscopy with polypectomy, 2016 SOCIAL HISTORY: Marries, lives with . Healthcare proxy is Brandie. No hx of nicotine use No hx of alcohol use No hx of illicit drug use FAMILY HISTORY: Reviewed history with patient's , no pertinent history was provided ALLERGIES: Please see below. REVIEW OF SYSTEMS: 10 point ROS was attempted, but due to confusion, patient could not participate in comprehensive review of systems. He did endorse mild to moderate abdominal pain. HOME MEDICATIONS: Please see below. PHYSICAL EXAMINATION: VITAL SIGNS: please see below General: NAD, comfortable HEENT: PERRLA, EOMI, sclerae clear. scleral icterus. Neck: supple, normal ROM, no JVD Respiratory: lungs CTAB, no wheeze, no rales, no crackles CVS: RRR, normal S1, S2, no murmurs Abdo: grossly distended, visible spider nevi, moderately tender diffusely across abdomen. Visible ileal conduit draining clear yellow urine. Extremities: no edema, pulses 2+ MSK: no joint deformities, normal ROM Neuro: no focal neuro deficits, moving all 4 extremities. Further neuro exam could not be conducted due to confusion, combative. Psych: disoriented, recognizes . LABORATORY DATA: See below. IMAGING: CT head wo contrast (04/28/21): Atrophy and microvascular ischemic changes. No acute intracranial hemorrhage, infarction, or mass/mass effect CXR (04/13/21): Limited examination primarily due to decreased inspiratory effort. No obvious focal consolidation or definite effusion. CT abdo pelvis wo contrast (04/28/21): 1. Cirrhosis and evidence for portal hypertension including a significant amount of ascites throughout the abdomen and pelvis. 2. Generalized predominately small bowel wall thickening likely secondary to cirrhosis and ascites although enteritis cannot definitively be excluded. 3. Further nonacute findings as noted above. MICROBIOLOGY: Please see below. 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 Admitted for AMS 2/2 hepatic encephalopathy. . PLAN: #AMS likely 2/2 hepatic encephalopathy/WELLS cirrhosis/Portal HTN - ammonia 128 - does not take lactulose or rifaximin at home, per , first occurance - at present, unable to take PO meds reliably - lactulos [place] enema, PO 30 ml q6h. Titrate to 3-4 BM per day - rifaximin 400 mg TID - repeat ammonia in AM - place hurst, monitor UOP - neuro checks q4h #Ascites 2/2 WELLS cirrhosis - CT reviewed as above - IR consulted for paracentesis. Ascitic fluid analysis ordered - high risk for SBP, moderate abdo pain - f/u blood cultures. AScites cultures - c/w IV zosyn - ordered 25 of albumin which will help sustain BP and reduce fluid extravasation - patient will need to be on low salt diet - furosemide and spironolactone held at this time due to suspect dehydration (YUE, elevated lactic acid) - resume after infusion of albumin, resolution of lactic acidosis #HCC - follows with Dr. Freeman at [facility]. I discussed the case prior to admission - enlargement of HCC mass, increased pressure on portal system - plan was for immunotherapy, Opdivo 480 mg IV q4 weeks - will d/w oncology at [facility] to determine if patient can follow in [place], for convenience. #NIDDM2 - ISS and FSBS AC and HS - hypoglycemia precautions #YUE - possibly 2/2 dehydration, vs development of hepatorenal syndrome - ordered 25 of albumin - patient received 1L NS bolus in ER - repeat LA (3.0 on arrival) #HTN - holding spironolactone and lasix at this time - hold losartan due to yue DVT ppx: SCDs. TEDS GI ppx: PPI Dispo: admission expected to last > 2 midnights. Pending clinical improvement. Vital Signs Vital Signs Date Time Temp Pulse Resp B/P (MAP) Pulse Ox O2 Delivery O2 Flow Rate FiO2 04/28/21 10:37 97.3 76 18 117/57 (77) 100 Room Air Laboratory Data Labs 24H Laboratory Tests 2 04/28/21 10:56: Prothrombin Time 15.1H, Prothromb Time International Ratio 1.15, Activated Partial Thromboplast Time 37.5, Lactic Acid Level 3.0*H, Ammonia 128H 04/28/21 10:57: Immature Granulocyte % (Auto) 0.3, Neutrophils (%) (Auto) 72.9H, Lymphocytes (%) (Auto) 6.0L, Monocytes (%) (Auto) 12.6H, Eosinophils (%) (Auto) 6.7H, Basophils (%) (Auto) 1.5H, Neutrophils # (Auto) 5.0, Lymphocytes # (Auto) 0.4L, Monocytes # (Auto) 0.9H, Eosinophils # (Auto) 0.5, Basophils # (Auto) 0.1, Nucleated Red Blood Cells % (auto) 0.0, Anion Gap 11, Glomerular Filtration Rate 44.6, Calcium Level 9.9, Total Bilirubin 0.8, Direct Bilirubin 0.3H, Aspartate Amino Transf (AST/SGOT) 111H, Alanine Aminotransferase (ALT/SGPT) 113H, Alkaline Phosphatase 203H, Total Protein 7.2, Albumin 2.1L, Albumin/Globulin Ratio 0.4, Thyroid Stimulating Hormone (TSH) 2.450 04/28/21 11:00: Coronavirus (COVID-19)(PCR) NEGATIVE, Influenza Type A (RT-PCR) NEGATIVE, Influenza Type B (RT-PCR) NEGATIVE, Respiratory Syncytial Virus (PCR) NEGATIVE CBC/BMP Laboratory Tests 04/28/21 10:57 Microbiology Microbiology 04/28/21 Blood Culture, Received Pending 04/28/21 Blood Culture, Received Pending Home Medications Scheduled Ferrous Sulfate (Iron) 325 Mg Tablet, 325 MG PO 3XW MON, WED, FRI Furosemide (Furosemide) 40 Mg Tablet, 40 MG PO DAILY Metformin HCl (Metformin HCl ER) 500 Mg Tab, 1,000 MG PO QPM Montelukast Sodium (Montelukast Sodium) 10 Mg Tablet, 10 MG PO QHS Polyethylene Glycol 3350 (Polyethylene Glycol 3350) 17 Gm Powd.pack, 17 GM PO DAILY @NOON Spironolactone (Spironolactone) 25 Mg Tablet, 25 MG PO BID Scheduled PRN Diphenhydramine HCl (Benadryl) 25 Mg Capsule, 25 MG PO QHS PRN for SLEEP Docusate Sodium (Colace) 100 Mg Capsule, 100 MG PO BID PRN for CONSTIPATION Hydroxyzine HCl (Hydroxyzine HCl) 10 Mg Tablet, 10 MG PO Q4H PRN for ITCHING Ibuprofen (Motrin Ib) 200 Mg Capsule, 200 MG PO TID PRN for MODERATE PAIN Allergies Coded Allergies: No Known Allergies (Unverified , 08/20/19) A-FIB/CHADSVASC A-FIB History Current/History of A-Fib/PAF?: No EZEQUIEL NGUYEN MD Apr 28, 2021 15:37
[2021-04-28] MEDS ORDERED: NADO20TA PO (15:52)
[2021-04-28] MEDS ORDERED: SUCR1TAB56 PO (15:52)
[2021-04-28] MEDS ORDERED: HOME MED LIST COMPLETE! XX SCH (15:55)
[2021-04-28] MEDS ORDERED: SOD POLYSTYRENE SULFONATE SUSP 15 GM/60 ML UD PO ONE (16:00)
[2021-04-28] MEDS ORDERED: LACTULOSE 20 GM/30 ML SYRUP UD PR ONE (16:00)
[2021-04-28 16:38] LABS: CK-MB VALUE MASS 1.4 NG/ML (<3.6); MB/CK RELATIVE INDEX 4.24 (< OR =4)
--- NOTE | 2021-04-28 16:56 | ECGEPIP ---
[facility] - ED Test Date: 2021-04-28 Pat Name: SARINA LINARES Department: Room: - Gender: Male Board Writer: CLAY : 1940 Requested By: TWYLA Roberson Order Number: [id number] Reading MD: Jennifer Latham Measurements Intervals [place] Rate: 72 P: 54 DC: 220 QRS: -33 QRSD: 92 T: -11 QT: 412 QTc: 451 Interpretive Statements Sinus rhythm with 1st degree AV block Left axis deviation Minimal voltage criteria for LVH, may be normal variant ( R in aVL ) Inferior infarct , age undetermined Anterolateral infarct , age undetermined decreased rate 04/19/21 Electronically Signed on 04-28-2021 16:56:12 EST by Jennifer Latham
[2021-04-28] MEDS: LACTULOSE 20 GM/30 ML SYRUP UD PO SCH ×2 (18:00→23:40)
[2021-04-28 18:22] VITALS: BP 132/61
[2021-04-28 18:49] VITALS: BP 118/63
[2021-04-28 19:20] VITALS: BP 122/59
[2021-04-28] MEDS: PIPERACILLIN/TAZOBACTAM SOD 4.5 GM in D5W MINI-BAG PLUS 50 ML IV SCH (20:24)
[2021-04-29] MEDS: PIPERACILLIN/TAZOBACTAM SOD 4.5 GM in D5W MINI-BAG PLUS 50 ML IV SCH ×4 (02:20→21:09)
[2021-04-29] MEDS: LACTULOSE 20 GM/30 ML SYRUP UD PO SCH ×3 (06:03→18:51)
[2021-04-29 06:27] LABS: BASO # 0.1 10^3/uL (0.0-0.2); BASO % 1.4 % (0.0-1.0); EOS # 0.3 10^3/uL (0.0-0.5); EOS % 4.7 % (0.0-3.0); HEMATOCRIT 27.4 % (42.0-52.0); HEMOGLOBIN 8.9 g/dl (13.5-17.5); LYMPH # 0.4 10^3/uL (1.5-5.0); MEAN CORPUSCULAR HEMOGLOBIN 28.6 pg (27.0-33.0); MEAN CORPUSCULAR HGB CONC 32.5 g/dl (32.0-36.5); MEAN CORPUSCULAR VOLUME 88.1 fl (80.0-96.0); MONO # 0.7 10^3/uL (0.0-0.8); MONO % 12.6 % (2.0-8.0); NEUTROPHILS # 4.1 10^3/uL (1.5-8.5); NEUTROPHILS % 73.9 % (36.0-66.0); PLATELET COUNT, AUTOMATED 193 10^3/uL (150-450); RED BLOOD COUNT 3.11 10^6/uL (4.30-6.10); WHITE BLOOD COUNT 5.5 10^3/uL (4.0-10.0)
[2021-04-29 06:56] LABS: ALBUMIN 2.3 GM/DL (3.2-5.2); CALCIUM LEVEL 9.6 MG/DL (8.8-10.2); CREATININE FOR GFR 1.59 MG/DL (0.70-1.30); GLOMERULAR FILTRATION RATE 44.9 (>42); MAGNESIUM LEVEL 2.2 MG/DL (1.8-2.4); POTASSIUM SERUM 4.5 MEQ/L (3.5-5.1); TOTAL PROTEIN 6.8 GM/DL (6.4-8.2)
[2021-04-29 08:25] VITALS: BP 145/63
[2021-04-29] MEDS: SPIRONOLACTONE 25 MG TAB PO SCH ×2 (10:13→17:00)
[2021-04-29] MEDS: SUCRALFATE 1 GM TAB PO SCH ×4 (10:14→21:10)
[2021-04-29] MEDS: FUROSEMIDE 40 MG TAB PO SCH (10:14)
[2021-04-29 12:00] VITALS: BP 137/63
[2021-04-29 15:28] LABS: SOURCE, BODY FLUID ALBUMIN ASCITES
[2021-04-29 15:34] LABS: SOURCE, BODY FLUID GLUCOSE ASCITES; SOURCE, BODY FLUID TOT PROTEIN ASCITES; TOTAL PROTEIN, BODY FLUID 0.4 G/DL (NOT ESTABLISHED)
[2021-04-29 15:41] LABS: APPEARANCE, BODY FLUID HAZY (CLEAR); ASCITES FL COLOR COLORLESS (COLORLESS); SOURCE, BODY FLUID ASCITES
--- NOTE | 2021-04-29 15:47 | IPNPDOC ---
Date Seen The patient was seen on 04/29/21. Progress Note SUBJECTIVE: patient is seen and examined at bedside after paracentesis. Per RN, patient was confused earlier and showing fists when tried to get settled in bed. He is alert to person only, but otherwise conversing and answers to basic ROS questions. He denies abdominal pain but winces when I apply pressure diffusely. He denies CP, palpitations, SOB, fevers, and chills. OBJECTIVE PHYSICAL EXAMINATION: VITAL SIGNS: please see below General: calm, cooperative, jaundiced HEENT: PERRLA, EOMI, scleral icterus Neck: supple, normal ROM, no JVD Respiratory: lungs CTAB, no wheeze, no rales, no crackles CVS: RRR, normal S1, S2, no murmurs Abdo: abdominal distension diminished, dressing on LLQ at site of paracentesis. Extremities: no edema, pulses 2+ MSK: no joint deformities, normal ROM Neuro: no focal neuro deficits, moving all 4 extremities, CN2-12 intact. Strength 5/5 in all 4 extremities. No nystagmus. Psych: calm, cooperative, AAO x 1 LABORATORY DATA, IMAGING STUDIES, MICROBIOLOGY: Please see below. DVT prophylaxis ordered?: SCDs. TEDs. 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 Admitted for AMS 2/2 hepatic encephalopathy. . PLAN: #AMS likely 2/2 hepatic encephalopathy/WELLS cirrhosis/Portal HTN - ammonia 128, down to 98 - does not take lactulose or rifaximin at home, per , first occurance - at present, unable to take PO meds reliably - lactulos [place] enema, PO 30 ml q6h. Titrate to 3-4 BM per day - rifaximin 400 mg TID - place [place], monitor UOP - neuro checks q4h #Ascites 2/2 WELLS cirrhosis - CT reviewed as above - IR consulted for paracentesis. Ascitic fluid analysis ordered - high risk for SBP, moderate abdo pain - f/u blood cultures. AScites cultures - c/w IV zosyn - ordered 25 of albumin which will help sustain BP and reduce fluid extravasation - patient will need to be on low salt diet - spironolactone resumed, 25 mg BID. Holding lasix due to yue. - s/p paracentesis, < 250 PMNs - continue with zosyn, patient will need to be DC with SBP ppx,. #HCC - follows with Dr. Freeman at [facility]. I discussed the case prior to admission - enlargement of HCC mass, increased pressure on portal system - plan was for immunotherapy, Opdivo 480 mg IV q4 weeks - will d/w oncology at [facility] Dr. Erazo. Patient will be followed here, will have an appt prior to DC. Will follow up in 2 weeks. #NIDDM2 - ISS and FSBS AC and HS - hypoglycemia precautions #YUE - possibly 2/2 dehydration, vs development of hepatorenal syndrome - ordered 25 of albumin - patient received 1L NS bolus in ER - Lactic acidosis resolved #HTN - spironolactone 25 mg BID resumed - lasix held as in YUE - losartan held DVT ppx: SCDs. TEDS GI ppx: PPI Dispo: admission expected to last > 2 midnights. Pending clinical improvement. VS, I&O, 24H, Fishbone Vital Signs/I&O Vital Signs Date Time Temp Pulse Resp B/P (MAP) Pulse Ox O2 Delivery O2 Flow Rate FiO2 04/29/21 12:00 97.8 82 20 137/63 (87) 99 Room Air I&O- Last 24 Hours up to 6 AM 04/29/21 06:00 Intake Total 1150.0 ml Output Total 600 ml Balance 550.0 ml Laboratory Data 24H LABS Laboratory Tests 2 04/28/21 15:56: Lactic Acid Level 2.4*H, Total Creatine Kinase 33L, Creatine Kinase MB 1.4, Creatine Kinase MB Relative Index 4.24H, Troponin I High Sensitivity 13.0, SS-[id number]-[id number]-Type Natriuretic Peptide 175 04/28/21 20:35: Lactic Acid Followup at 4 Hours 1.7 04/29/21 06:08: Immature Granulocyte % (Auto) 0.4, Neutrophils (%) (Auto) 73.9H, Lymphocytes (%) (Auto) 7.0L, Monocytes (%) (Auto) 12.6H, Eosinophils (%) (Auto) 4.7H, Basophils (%) (Auto) 1.4H, Neutrophils # (Auto) 4.1, Lymphocytes # (Auto) 0.4L, Monocytes # (Auto) 0.7, Eosinophils # (Auto) 0.3, Basophils # (Auto) 0.1, Nucleated Red Blood Cells % (auto) 0.0, Anion Gap 10, Glomerular Filtration Rate 44.9, Calcium Level 9.6, Magnesium Level 2.2, Total Bilirubin 1.0, Aspartate Amino Transf (AST/SGOT) 85H, Alanine Aminotransferase (ALT/SGPT) 97H, Alkaline Phosphatase 165H, Ammonia 98H, Total Protein 6.8, Albumin 2.3L, Albumin/Globulin Ratio 0.5 04/29/21 11:32: Body Fluid Albumin Source ASCITES, Body Fluid Albumin 0.0 CBC/BMP Laboratory Tests 04/29/21 06:08 Microbiology Microbiology 04/29/21 Acid Fast Stain, Received Pending 04/29/21 Mycobacterial Culture, Received Pending 04/29/21 Fungal Smear, Received Pending 04/29/21 Fungal Culture, Received Pending 04/29/21 Gram Stain, Received Pending 04/29/21 Body Fluid Culture, Received Pending 04/28/21 Blood Culture - Preliminary, Resulted No growth after 24 hours . All specim... 04/28/21 Blood Culture - Preliminary, Resulted No growth after 24 hours . All specim... EZEQUIEL NGUYEN MD Apr 29, 2021 15:47
[2021-04-29 16:18] LABS: SPEC. GRAVITY BODY FLUIDS 1.008 (NOT ESTABLISHED)
--- NOTE | 2021-04-29 17:20 | REP ---
INDICATION: large volume ascites. COMPARISON: None. TECHNIQUE: The procedure was performed under the direct supervision of Dr. Perez. The risks and benefits of the procedure were explained to the patient and informed consent was obtained. The largest pocket of fluid was localized in the left flank using ultrasound guidance. The skin was prepped and draped in a sterile fashion. 4 mL of 1% lidocaine was used as a local anesthetic. An 8-Spanish multi side-hole catheter was inserted using trocar technique.3200 mL of pale yellow fluid was withdrawn with a sample sent to the lab for analysis. Estimated blood loss: Less than 1 mL The patient tolerated the procedure well and there were no immediate complications. After the appropriate amount of monitored convalescence, the patient was discharged from the department. FINDINGS: None IMPRESSION: Ultrasound-guided paracentesis [id number] mL of pale yellow fluid. <Electronically signed by Dhruv Reddy > 04/29/21 1321 <Electronically signed by North Perez > 04/29/21 [id number]
[2021-04-29 17:50] VITALS: BP 128/59
[2021-04-29 20:00] VITALS: BP 121/58
[2021-04-29] MEDS: MONTELUKAST 10 MG TAB PO SCH (21:10)
[2021-04-29] MEDS: NADOLOL 20MG TABLET PO SCH (21:10)
[2021-04-30] VITALS (7 sets, daily range): BP systolic 34–133; BP diastolic 54–84
[2021-04-30] MEDS: PIPERACILLIN/TAZOBACTAM SOD 4.5 GM in D5W MINI-BAG PLUS 50 ML IV SCH ×2 (03:41→09:19)
[2021-04-30] MEDS: LACTULOSE 20 GM/30 ML SYRUP UD PO SCH ×4 (06:00→18:00)
[2021-04-30 06:23] LABS: BASO # 0.1 10^3/uL (0.0-0.2); BASO % 1.3 % (0.0-1.0); EOS # 0.4 10^3/uL (0.0-0.5); EOS % 6.5 % (0.0-3.0); HEMATOCRIT 29.1 % (42.0-52.0); HEMOGLOBIN 9.3 g/dl (13.5-17.5); LYMPH # 0.4 10^3/uL (1.5-5.0); LYMPH % 6.8 % (24.0-44.0); MEAN CORPUSCULAR HEMOGLOBIN 28.2 pg (27.0-33.0); MEAN CORPUSCULAR VOLUME 88.2 fl (80.0-96.0); MONO # 0.9 10^3/uL (0.0-0.8); MONO % 14.5 % (2.0-8.0); NEUTROPHILS # 4.4 10^3/uL (1.5-8.5); NEUTROPHILS % 70.3 % (36.0-66.0); PLATELET COUNT, AUTOMATED 184 10^3/uL (150-450); WHITE BLOOD COUNT 6.3 10^3/uL (4.0-10.0)
[2021-04-30 06:55] LABS: ALBUMIN 2.1 GM/DL (3.2-5.2); BILIRUBIN,TOTAL 0.9 MG/DL (0.2-1.0); CREATININE FOR GFR 1.54 MG/DL (0.70-1.30); GLOMERULAR FILTRATION RATE 46.6 (>42); POTASSIUM SERUM 3.8 MEQ/L (3.5-5.1); TOTAL PROTEIN 7.2 GM/DL (6.4-8.2)
[2021-04-30] MEDS: FUROSEMIDE 40 MG TAB PO SCH (09:00)
[2021-04-30] MEDS: SUCRALFATE 1 GM TAB PO SCH ×4 (09:00→19:41)
[2021-04-30] MEDS ORDERED: PNEUMOCOCCAL VACCINE 0.5ML SYRINGE (PNEUMOVAX 23) IM ONE (09:00)
[2021-04-30] MEDS: SPIRONOLACTONE 25 MG TAB PO SCH ×2 (09:20→16:17)
[2021-04-30] MEDS ORDERED: LIDOCAINE 5% (LIDODERM) PATCH TD ONE (10:15)
--- NOTE | 2021-04-30 15:11 | IPNPDOC ---
Date Seen The patient was seen on 04/30/21. Progress Note SUBJECTIVE: Awake alert and oriented x3 today sitting up at bedside chair. No acute events overnight. Ammonia continues to improve. updated at bedside. He denies CP, palpitations, SOB, fevers, and chills. OBJECTIVE: PHYSICAL EXAMINATION: VITAL SIGNS: please see below General: cooperative, jaundiced, AAOx 3 HEENT: PERRLA, EOMI, scleral icterus Neck: supple, normal ROM, no JVD Respiratory: lungs CTAB, no wheeze, no rales, no crackles CVS: RRR, normal S1, S2, no murmurs Abdo: abdominal distension diminished, dressing on LLQ at site of paracentesis. Extremities: no edema, pulses 2+ MSK: no joint deformities, normal ROM Neuro: no focal neuro deficits, moving all 4 extremities, CN2-12 intact. Strength 5/5 in all 4 extremities. No nystagmus. Psych: calm, cooperative, AAO x 1 LABORATORY DATA, IMAGING STUDIES, MICROBIOLOGY: Please see below. 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 PLAN: AMS likely 2/2 hepatic encephalopathy/WELLS cirrhosis/Portal HTN-improved -Child-Morales Score Class C, MELD score 12 -Ammonia on admission 128, today 43 -AAOx 3 today at bedside -Does not take lactulose or rifaximin at home, per , first occurrence -Taking good PO -Per prior hospitalist, he spoke with Dr. Molina (GI) on admission. Will not need official consult this admission, will need f/u with GI as o/p if does not already have one. To d/w . -C/w lactulose, rifaximin. Titrate to 3-4 BM per day Ascites 2/2 WELLS cirrhosis -CT reviewed as above -S/p paracentesis on 04/29/21, 3.2 L removed. -Ascitic fluid analysis: transudative, blood cultures pending, ascites cultures pending -Child-Morales Score Class C -AST/ALT mildly elevated -Stopped tylenol -Started on ciprofloxacin daily, c/w spironolactone resumed, 25 mg BID, lactulose and rifaximin. -S/p albumin this admission -C/w low salt diet -Will need f/u with GI on admission HCC -Follows with Dr. Freeman at [facility]. I discussed the case prior to admission -Enlargement of HCC mass, increased pressure on portal system -Plan was for immunotherapy, Opdivo 480 mg IV q4 weeks -Prior hospitalist discussed with oncology at [facility] Dr. Erazo. Patient will be followed here, will have an appt prior to DC. Will follow up in 2 weeks. Recent GI bleed -According to notes, possibly recent IR embolization? for bleeding from edges of urostomy stoma -F/u [facility] records -Holding AC for now -CBC daily, has been stable NIDDM2 - ISS and FSBS AC and HS - hypoglycemia precautions -Will not be d/adi with metformin at discharge Acute kidney injury possibly 2/2 to home meds, contrast -Received albumin, liter NS in ER -Cr improving some -Reviewed case with Dr. Zulay Harris today. If improves, she can see as o/p. If worsens, officially consult. Hold metformin, NSAIDs at discharge. HTN -spironolactone 25 mg BID, lasix -losartan held Chronic lower back pain -lidocaine patch, stopped tylenol due to elevated liver enzymes/liver cirrhosis DVT ppx: SCDs. TEDS GI ppx: PPI DISPOSITION: Awaiting records from [facility]. DNR/DNI. Plan is hopeful for d/c home when medically improve. VS, I&O, 24H, Fishbone Vital Signs/I&O Vital Signs Date Time Temp Pulse Resp B/P (MAP) Pulse Ox O2 Delivery O2 Flow Rate FiO2 04/30/21 08:00 97.6 77 18 108/54 (72) 99 Room Air I&O- Last 24 Hours up to 6 AM 04/30/21 06:00 Intake Total 1900 ml Output Total 2000 ml Balance -100 ml Laboratory Data 24H LABS Laboratory Tests 2 04/30/21 06:05: Immature Granulocyte % (Auto) 0.6, Neutrophils (%) (Auto) 70.3H, Lymphocytes (%) (Auto) 6.8L, Monocytes (%) (Auto) 14.5H, Eosinophils (%) (Auto) 6.5H, Basophils (%) (Auto) 1.3H, Neutrophils # (Auto) 4.4, Lymphocytes # (Auto) 0.4L, Monocytes # (Auto) 0.9H, Eosinophils # (Auto) 0.4, Basophils # (Auto) 0.1, Nucleated Red Blood Cells % (auto) 0.0, Anion Gap 6L, Glomerular Filtration Rate 46.6, Calcium Level 10.0, Magnesium Level 2.0, Total Bilirubin 0.9, Aspartate Amino Transf (AST/SGOT) 81H, Alanine Aminotransferase (ALT/SGPT) 99H, Alkaline Phosphatase 172H, Total Protein 7.2, Albumin 2.1L, Albumin/Globulin Ratio 0.4 04/30/21 10:33: Ammonia 43H 04/30/21 12:05: Lab Scanned Report Transfusion Record CBC/BMP Laboratory Tests 04/30/21 06:05 Microbiology Microbiology 04/29/21 Acid Fast Stain, Received Pending 04/29/21 Mycobacterial Culture, Received Pending 04/29/21 Fungal Smear, Received Pending 04/29/21 Fungal Culture, Received Pending 04/29/21 Gram Stain - Final, Resulted 04/29/21 Body Fluid Culture, Resulted Pending 04/28/21 Blood Culture - Preliminary, Resulted No Growth after 48 hours. All Specime... 04/28/21 Blood Culture - Preliminary, Resulted No Growth after 48 hours. All Specime... Ayde Laguna MD Apr 30, 2021 15:11
[2021-04-30] MEDS: CIPROFLOXACIN 250MG TAB PO SCH (16:17)
[2021-04-30] MEDS: diphenhydrAMINE CREAM 30GM TOP PRN (16:18)
[2021-04-30] MEDS: MONTELUKAST 10 MG TAB PO SCH (19:41)
[2021-04-30] MEDS: NADOLOL 20MG TABLET PO SCH (19:42)
[2021-04-30] MEDS ORDERED: **NOTE PATIENT COMMENT** MISC XX SCH (21:00)
[2021-05-01 00:12] VITALS: BP 118/53
[2021-05-01] MEDS: LACTULOSE 20 GM/30 ML SYRUP UD PO SCH ×6 (00:27→23:36)
[2021-05-01] MEDS: CIPROFLOXACIN 250MG TAB PO SCH (05:18)
[2021-05-01] MEDS: diphenhydrAMINE CREAM 30GM TOP PRN ×2 (05:21→23:36)
[2021-05-01 06:00] VITALS: BP 113/53
[2021-05-01 06:41] LABS: BASO # 0.1 10^3/uL (0.0-0.2); BASO % 1.2 % (0.0-1.0); EOS # 0.6 10^3/uL (0.0-0.5); EOS % 8.1 % (0.0-3.0); HEMATOCRIT 29.2 % (42.0-52.0); HEMOGLOBIN 9.5 g/dl (13.5-17.5); LYMPH # 0.5 10^3/uL (1.5-5.0); LYMPH % 6.7 % (24.0-44.0); MEAN CORPUSCULAR HEMOGLOBIN 28.5 pg (27.0-33.0); MEAN CORPUSCULAR HGB CONC 32.5 g/dl (32.0-36.5); MEAN CORPUSCULAR VOLUME 87.7 fl (80.0-96.0); MONO # 0.9 10^3/uL (0.0-0.8); MONO % 12.8 % (2.0-8.0); NEUTROPHILS # 5.2 10^3/uL (1.5-8.5); NEUTROPHILS % 70.8 % (36.0-66.0); PLATELET COUNT, AUTOMATED 210 10^3/uL (150-450); RED BLOOD COUNT 3.33 10^6/uL (4.30-6.10); WHITE BLOOD COUNT 7.3 10^3/uL (4.0-10.0)
[2021-05-01 07:07] LABS: ALBUMIN 2.2 GM/DL (3.2-5.2); BILIRUBIN,TOTAL 0.7 MG/DL (0.2-1.0); CALCIUM LEVEL 9.8 MG/DL (8.8-10.2); CREATININE FOR GFR 1.51 MG/DL (0.70-1.30); GLOMERULAR FILTRATION RATE 47.7 (>42); MAGNESIUM LEVEL 1.8 MG/DL (1.8-2.4); POTASSIUM SERUM 3.8 MEQ/L (3.5-5.1)
[2021-05-01] MEDS: SPIRONOLACTONE 25 MG TAB PO SCH ×2 (08:17→17:35)
[2021-05-01] MEDS: SUCRALFATE 1 GM TAB PO SCH ×4 (08:18→21:33)
[2021-05-01] MEDS: FUROSEMIDE 40 MG TAB PO SCH (08:18)
[2021-05-01 14:00] VITALS: BP 109/55
--- NOTE | 2021-05-01 16:37 | IPNPDOC ---
Date Seen The patient was seen on 05/01/21. Progress Note SUBJECTIVE: Awake alert and oriented x3. No acute events overnight. He denies CP, palpitations, SOB, fevers, and chills. OBJECTIVE: PHYSICAL EXAMINATION: VITAL SIGNS: please see below General: cooperative, jaundiced, AAOx 3 HEENT: PERRLA, EOMI, scleral icterus Neck: Supple, normal ROM, no JVD Respiratory: Lungs CTAB, no wheeze, no rales, no crackles CVS: RRR, normal S1, S2, no murmurs Abdo: abdominal distension diminished, dressing on LLQ at site of paracentesis Extremities: no edema, pulses 2+ MSK: no joint deformities, normal ROM Neuro: no focal neuro deficits, moving all 4 extremities, CN2-12 intact. Strength 5/5 in all 4 extremities. No nystagmus. Psych: calm, cooperative LABORATORY DATA, IMAGING STUDIES, MICROBIOLOGY: Please see below. 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 PLAN: AMS likely 2/2 hepatic encephalopathy/WELLS cirrhosis/Portal HTN- improved -Child-Morales Score Class C, MELD score 12 -Ammonia on admission 128, today 48 -AAOx 3 today again -Was not previously taking lactulose or rifaximin at home, per , first occurrence of hyperammonemia -Taking good PO -Per prior hospitalist, he spoke with Dr. Molina (GI) on admission. Will not need official consult this admission, will need f/u with [facility], Dr. Guerrero. Attempted to call and update him, did not receive call back but left message. Advised that if I cannot reach him, to call office after discharge to update on recent admission, as it was primarily for GI issue. They have first new patient appointment in beginning of 2021. -C/w lactulose, rifaximin for now. Having 3-4 BM daily Ascites 2/2 WELLS cirrhosis -CT reviewed as above -S/p paracentesis on 04/29/21, 3.2 L removed. -Ascitic fluid analysis: transudative, NG on cx -Child-Morales Score Class C -AST/ALT mildly elevated -C/w ciprofloxacin daily, spironolactone 25 mg BID, lactulose and rifaximin -S/p albumin this admission -C/w low salt diet -F/u with GI as stated above HCC -Follows with Dr. Freeman at [facility] -Enlargement of HCC mass, increased pressure on portal system -Plan was for immunotherapy, Opdivo 480 mg IV q4 weeks -Prior hospitalist discussed with oncology at [facility] Dr. Erazo. Patient will be followed here, will have an appt prior to DC. Will follow up in 2 weeks. 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 Zulay Harris today. If improves, she can see as o/p. Hold metformin, NSAIDs at discharge. HTN -spironolactone 25 mg BID, lasix -losartan held Chronic lower back pain -lidocaine patch, stopped tylenol due to elevated liver enzymes/liver cirrhosis DVT ppx: SCDs. TEDS GI ppx: PPI DISPOSITION: Plan is discharge in the AM if patient remains stable. Attempted to call GI Dr. Guerrero without luck on return call. Attempted again later in day on 05/01/21. VS, I&O, 24H, Fishbone Vital Signs/I&O Vital Signs Date Time Temp Pulse Resp B/P (MAP) Pulse Ox O2 Delivery O2 Flow Rate FiO2 05/01/21 14:00 97.2 77 18 109/55 (73) 97 Room Air I&O- Last 24 Hours up to 6 AM 05/01/21 06:00 Intake Total 1185 ml Output Total 700 ml Balance 485 ml Laboratory Data 24H LABS Laboratory Tests 2 05/01/21 06:27: Immature Granulocyte % (Auto) 0.4, Neutrophils (%) (Auto) 70.8H, Lymphocytes (%) (Auto) 6.7L, Monocytes (%) (Auto) 12.8H, Eosinophils (%) (Auto) 8.1H, Basophils (%) (Auto) 1.2H, Neutrophils # (Auto) 5.2, Lymphocytes # (Auto) 0.5L, Monocytes # (Auto) 0.9H, Eosinophils # (Auto) 0.6H, Basophils # (Auto) 0.1, Nucleated Red Blood Cells % (auto) 0.0, Anion Gap 9, Glomerular Filtration Rate 47.7, Calcium Level 9.8, Magnesium Level 1.8, Total Bilirubin 0.7, Aspartate Amino Transf (AST/SGOT) 93H, Alanine Aminotransferase (ALT/SGPT) 106H, Alkaline Phosphatase 180H, Ammonia 48H, Total Protein 7.0, Albumin 2.2L, Albumin/Globulin Ratio 0.5 CBC/BMP Laboratory Tests 05/01/21 06:27 Microbiology Microbiology 04/29/21 Acid Fast Stain, Received Pending 04/29/21 Mycobacterial Culture, Received Pending 04/29/21 Fungal Smear, Received Pending 04/29/21 Fungal Culture, Received Pending 04/29/21 Gram Stain - Final, Complete 04/29/21 Body Fluid Culture - Final, Complete 04/28/21 Blood Culture - Preliminary, Resulted No Growth after 72 hours. All specime... 04/28/21 Blood Culture - Preliminary, Resulted No Growth after 72 hours. All specime... Ayde Laguna MD May 01, 2021 16:37
[2021-05-01] MEDS ORDERED: CIPR-250 PO (19:40)
[2021-05-01] MEDS ORDERED: LACT20EL PO (19:40)
[2021-05-01] MEDS ORDERED: XIFA200T2 PO (19:40)
[2021-05-01] MEDS: MONTELUKAST 10 MG TAB PO SCH (21:33)
[2021-05-01] MEDS: NADOLOL 20MG TABLET PO SCH (21:33)
[2021-05-01 21:34] VITALS: BP 134/63
[2021-05-01 21:36] VITALS: BP 134/63
[2021-05-02] MEDS: CIPROFLOXACIN 250MG TAB PO SCH (05:28)
[2021-05-02] MEDS: LACTULOSE 20 GM/30 ML SYRUP UD PO SCH ×2 (05:28→11:28)
[2021-05-02 06:00] VITALS: BP 110/56
[2021-05-02 06:15] LABS: BASO # 0.1 10^3/uL (0.0-0.2); BASO % 0.9 % (0.0-1.0); EOS # 0.5 10^3/uL (0.0-0.5); HEMATOCRIT 26.7 % (42.0-52.0); HEMOGLOBIN 8.8 g/dl (13.5-17.5); LYMPH # 0.5 10^3/uL (1.5-5.0); LYMPH % 6.9 % (24.0-44.0); MEAN CORPUSCULAR HEMOGLOBIN 28.7 pg (27.0-33.0); MONO # 0.9 10^3/uL (0.0-0.8); MONO % 13.3 % (2.0-8.0); NEUTROPHILS # 4.6 10^3/uL (1.5-8.5); NEUTROPHILS % 70.4 % (36.0-66.0); PLATELET COUNT, AUTOMATED 185 10^3/uL (150-450); RED BLOOD COUNT 3.07 10^6/uL (4.30-6.10); WHITE BLOOD COUNT 6.5 10^3/uL (4.0-10.0)
[2021-05-02 06:45] LABS: BILIRUBIN,TOTAL 0.4 MG/DL (0.2-1.0); CALCIUM LEVEL 9.4 MG/DL (8.8-10.2); CREATININE FOR GFR 1.39 MG/DL (0.70-1.30); GLOMERULAR FILTRATION RATE 52.5 (>42); MAGNESIUM LEVEL 1.9 MG/DL (1.8-2.4); POTASSIUM SERUM 4.1 MEQ/L (3.5-5.1); TOTAL PROTEIN 6.7 GM/DL (6.4-8.2)
[2021-05-02] MEDS: SPIRONOLACTONE 25 MG TAB PO SCH (08:28)
[2021-05-02] MEDS: SUCRALFATE 1 GM TAB PO SCH (08:28)
[2021-05-02] MEDS: FUROSEMIDE 40 MG TAB PO SCH (08:28)
[2021-05-02] MEDS ORDERED: traMADol 50 MG TAB PO ONE (11:00)
[2021-05-02] MEDS ORDERED: LACT20EL PO (11:12)
--- NOTE | 2021-05-02 15:16 | DS.PDOC ---
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 Esophageal varices s/p banding 04/24/21 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 Patient was brought to the ER with his who reports that he developed confusion last evening while they were eating dinner and he had trouble remembering where she was. He has not had oral intake since that time. She denies him falling or injuring his head. His ammonia level is 128. He has an elevaed Cr 1.6. CT abdo showing large volume ascites. At time of examination the patient is very confused and is unable to provide adequate review of systems or history. According to his since being discharged from [facility] on April 21 he was admitted at [facility] where he underwent an embolization procedure to control bleeding from his urostomy. Per he also underwent an upper endoscopy which revealed several esophageal varices which were nonbleeding and were treated. We will certainly obtain records from [facility]. I also had a conversation with the patient's oncologist at [facility] Dr. Freeman. He informed me that the patient has had enlargement of his hepatocellular carcinoma with further compression of the portal venous system. He is currently plan for immunotherapy and I suggested that the patient may follow-up with [facility] if the family so chooses. I also discussed the patient's case with Dr. Molina (provider relations coordinator GI) who recommended treatment of hepatic encephalopathy using lactulose, rifaximin as well as IV fluids. Patient admitted to hospital service with planned paracentesis and will be continued on empiric Zosyn for SBP treatment/prophylaxis. Certainly patient will need SBP prophylaxis upon discharge for the remainder of his life. Patient's has decided for DNR/DNI status and completed the MOST form which was witnessed and signed. HOSPITAL COURSE: During the patient's hospitalization, the following issues were address ed/treated: AMS likely 2/2 hepatic encephalopathy/WELLS cirrhosis/Portal HTN- improved -Child-Morales Score Class C, MELD score 12 -Ammonia on admission 128, today 46 -AAOx 3 -Was not previously taking lactulose or rifaximin at home, per , first occurrence of hyperammonemia on admittance -Taking good PO -C/w lactulose, rifaximin for now. Having 3-4 BM daily -Per prior hospitalist, who spoke with Dr. Molina (GI provider relations coordinator) on admission he did not need official consult this admission. -I discussed case with Dr. Guerrero (GI, hepatology) on 05/02/21, who saw patient at [facility] in 04/2021. Confirmed patient has scheduled f/u with [facility], Dr. Dede Moulton on 05/05/21 at 3 PM. Advised patient and to keep and to bring discharge information to update on hospital adm ission. Ascites 2/2 WELLS cirrhosis -S/p paracentesis on 04/29/21, 3.2 L removed. -Ascitic fluid analysis: transudative, NG on cx -Child-Morales Score Class C -AST/ALT mildly elevated -C/w ciprofloxacin daily, spironolactone 25 mg BID, lactulose and rifaximin -S/p albumin this admission -C/w low salt diet -F/u with GI as stated above HCC -Follows with Dr. Freeman at [facility] -Enlargement of HCC mass, increased pressure on portal system -Plan was for immunotherapy, Opdivo 480 mg IV q4 weeks -Prior hospitalist discussed with oncology at [facility] Dr. Erazo. Patient will be followed here, will have an appt prior to DC. Will follow up in 2 weeks. 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 records received and reviewed -CBC has been stable -Carafate, nadolol -F/u with GI as above NIDDM2 -BS 150-200 currently -D/c metformin at discharge. -Advise to discuss with PCP what to start or if to resume metformin when Cr back to baseline Acute kidney injury possibly 2/2 to home meds (metformin, spironolactone), contrast -Cr much improved at 1.3 -Received albumin, liter NS in ER -Cr improving some -Reviewed case with Dr. Zulay Harris (nephrology). She is happy to see as o/p if Cr remains elevated or felt necessary by PCP. - Hold metformin, NSAIDs at discharge. HTN -spironolactone 25 mg BID, lasix -losartan stopped Chronic lower back pain -Stable DISCHARGE MEDICATIONS: Please see below. ALLERGIES: Please see below. PHYSICAL EXAMINATION ON DISCHARGE: VITAL SIGNS: stable on RA General: cooperative, jaundiced, AAOx 3 HEENT: PERRLA, EOMI, scleral icterus Neck: Supple, normal ROM, no JVD Respiratory: Lungs CTAB, no wheeze, no rales, no crackles CVS: RRR, normal S1, S2, no murmurs Abdo: abdominal distension diminished, mild abd tenderness where dressing on LLQ at site of paracentesis Extremities: no edema, pulses 2+ MSK: no joint deformities, normal ROM Neuro: no focal neuro deficits, moving all 4 extremities, CN2-12 intact. Strength 5/5 in all 4 extremities. No nystagmus. Psych: calm, cooperative LABORATORY DATA: Please see below. IMAGING: See chart ACTIVITY: As tolerated, cleared by PT for home DIET: 2 gm sodium, consistent carbohydrate DISPOSITION: Home, Self-Care. DISCHARGE INSTRUCTIONS / ITEMS TO FOLLOWUP ON ON OUTPATIENT: 1. Please follow-up with Dr. Dede Moulton, gastroenterology fellow at [facility] outpatient clinic on 05/13/21 at 3 PM. 2. If the patient should become increasingly confused this could mean that his ammonia levels are again high. If this should happen please be seen by medical professional soon as possible. DISCHARGE CONDITION: Stable TIME SPENT ON DISCHARGE: 35 minutes. Vital Signs/I&Os Vital Signs Date Time Temp Pulse Resp B/P (MAP) Pulse Ox O2 Delivery O2 Flow Rate FiO2 05/02/21 10:53 16 05/02/21 06:00 98.2 91 110/56 (74) 97 Room Air I&O- Last 24 Hours up to 6 AM 05/02/21 06:00 Intake Total 1955 ml Output Total 825 ml Balance 1130 ml Laboratory Data Labs 24H Laboratory Tests 2 05/02/21 05:46: Immature Granulocyte % (Auto) 0.5, Neutrophils (%) (Auto) 70.4H, Lymphocytes (%) (Auto) 6.9L, Monocytes (%) (Auto) 13.3H, Eosinophils (%) (Auto) 8.0H, Basophils (%) (Auto) 0.9, Neutrophils # (Auto) 4.6, Lymphocytes # (Auto) 0.5L, Monocytes # (Auto) 0.9H, Eosinophils # (Auto) 0.5, Basophils # (Auto) 0.1, Nucleated Red Blood Cells % (auto) 0.0, Anion Gap 6L, Glomerular Filtration Rate 52.5, Calcium Level 9.4, Magnesium Level 1.9, Total Bilirubin 0.4, Aspartate Amino Transf (AST/SGOT) 94H, Alanine Aminotransferase (ALT/SGPT) 103H, Alkaline Phosphatase 199H, Total Protein 6.7, Albumin 2.0L, Albumin/Globulin Ratio 0.4 05/02/21 09:30: Ammonia 46H CBC/BMP Laboratory Tests 05/02/21 05:46 Microbiology Microbiology 04/29/21 Acid Fast Stain, Received Pending 04/29/21 Mycobacterial Culture, Received Pending 04/29/21 Fungal Smear, Received Pending 04/29/21 Fungal Culture, Received Pending 04/29/21 Gram Stain - Final, Complete 04/29/21 Body Fluid Culture - Final, Complete 04/28/21 Blood Culture - Preliminary, Resulted No Growth after 72 hours. All specime... 04/28/21 Blood Culture - Preliminary, Resulted No Growth after 72 hours. All specime... Discharge Medications Scheduled Ciprofloxacin HCl (Cipro) 250 Mg Tablet, 250 MG PO DAILY@06 Ferrous Sulfate (Iron) 325 Mg Tablet, 325 MG PO 3XW, (Reported) MON, WED, FRI Furosemide (Furosemide) 40 Mg Tablet, 40 MG PO DAILY, (Reported) Lactulose (Lactulose) 10 Gm/15 Ml Solution, 30 ML PO Q8H Montelukast Sodium (Montelukast Sodium) 10 Mg Tablet, 10 MG PO QHS, (Reported) Nadolol (Nadolol) 20 Mg Tablet, 20 MG PO QPM, (Reported) Rifaximin (Xifaxan) 200 Mg Tablet, 400 MG PO TID Spironolactone (Spironolactone) 25 Mg Tablet, 25 MG PO BID, (Reported) Sucralfate (Sucralfate) 1 Gm Tablet, 1 GM PO QID, (Reported) Scheduled PRN Diphenhydramine HCl (Benadryl) 25 Mg Capsule, 25 MG PO QHS PRN for SLEEP, (Reported) Docusate Sodium (Colace) 100 Mg Capsule, 100 MG PO BID PRN for CONSTIPATION, (Reported) Hydroxyzine HCl (Hydroxyzine HCl) 10 Mg Tablet, 10 MG PO Q4H PRN for ITCHING, (Reported) Allergies Coded Allergies: No Known Allergies (Unverified , 08/20/19) Ayde Laguna MD May 02, 2021 15:16
== END 2021-05-02 12:38 | disposition home or self-care (01) | DRG 442 ==
LOC: EDBD 10:27 → M ED 10:27 → M ED INP 14:53 → ENRESERV 04-29 06:26 → M PCU 04-29 08:20 → M MSPAV 05-01 00:10
PROVIDERS: ADMIT Family Medicine; ATTEND Internal Medicine
PROC: 30233J1 Transfusion of Nonautologous Serum Albumin into Peripheral Vein, Percutaneous Approach (ICD-10-PCS; 2021-04-28)
PROC: 0W9G3ZZ Drainage of Peritoneal Cavity, Percutaneous Approach (ICD-10-PCS; principal; 2021-04-29 11:00)
DX: K72.90 Hepatic failure, unspecified without coma (principal); R18.8 Other ascites; K76.6 Portal hypertension; I85.10 Secondary esophageal varices without bleeding; C22.0 Liver cell carcinoma; N17.9 Acute kidney failure, unspecified; K74.69 Other cirrhosis of liver; K75.81 Nonalcoholic steatohepatitis (NASH); E11.9 Type 2 diabetes mellitus without complications; M54.50 Low back pain, unspecified; Z66 Do not resuscitate; E78.00 Pure hypercholesterolemia, unspecified; Z85.51 Personal history of malignant neoplasm of bladder; Z85.46 Personal history of malignant neoplasm of prostate; D69.6 Thrombocytopenia, unspecified; G47.00 Insomnia, unspecified; Z86.010 Personal history of colon polyps; I10 Essential (primary) hypertension; Z87.442 Personal history of urinary calculi; K62.7 Radiation proctitis; Z20.822 Contact with and (suspected) exposure to COVID-19; Z79.84 Long term (current) use of oral hypoglycemic drugs; Z79.899 Other long term (current) drug therapy; Z96.0 Presence of urogenital implants

== ENCOUNTER → 2021-05-16 | Outpatient (CLI) | payer MEDICARE, BC, OTHER ==
[~2021-05-16] MED LIST changes: +CIPR-250 PO; +FURO20TA2; +LACT20EL PO; +MELA10CA6 PO; +META28.32 PO; +MIRA3350 PO; +NADO20TA PO; +PANT20TA6; +SUCR1TAB56 PO; +TRAM50TA2; +XIFA200T2 PO
[2021-05-16 14:18] VITALS: BP 127/58
--- NOTE | 2021-05-16 17:56 | REP ---
INDICATION: ASCITES. COMPARISON: None. TECHNIQUE: The procedure was performed under the direct supervision of Dr. Deshpande. The risks and benefits of the procedure were explained to the patient and informed consent was obtained. The largest pocket of fluid was localized in the left flank using ultrasound guidance. The skin was prepped and draped in a sterile fashion. 5 mL of 1% lidocaine was used as a local anesthetic. An 8-Bulgarian multi side-hole catheter was inserted using trocar technique.3800 mL of yellow fluid was withdrawn and discarded. Estimated blood loss: None The patient tolerated the procedure well and there were no immediate complications. After the appropriate amount of monitored convalescence, the patient was discharged from the department. FINDINGS: None IMPRESSION: Ultrasound-guided paracentesis [id number] mL of yellow fluid. <Electronically signed by Dhruv Reddy > 05/16/21 1705 <Electronically signed by Mitchell Deshpande > 05/16/21 [id number]
== END ==
LOC: M IRPRO 13:39
PROVIDERS: ATTEND Internal Medicine
DX: R18.8 Other ascites (principal)

== ENCOUNTER → 2021-06-05 | Outpatient (CLI) | payer MEDICARE, BC, OTHER ==
[~2021-06-05] MED LIST changes: +LOSA100T45 PO; -LOSA100T50 PO; +LOSA50TA28 PO; -LOSA50TA88 PO; -MONT10TA10 PO; +MONT10TA97 PO
[2021-06-05 15:20] VITALS: BP 116/62
== END ==
LOC: M IRPRO 14:05
PROVIDERS: ATTEND Internal Medicine
DX: R18.8 Other ascites (principal)
CPT/HCPCS: 49083; G0463

== ENCOUNTER → 2021-06-12 | Outpatient (CLI) | payer MEDICARE, BC, OTHER ==
[~2021-06-12] MED LIST changes: +SODIUM BICARBONATE 8.4% INJ 50MEQ 50 ML VIAL As Ordered ONE
[2021-06-12 11:35] VITALS: BP 111/57
== END ==
LOC: M IRPRO 10:24
PROVIDERS: ATTEND Internal Medicine
DX: R18.8 Other ascites (principal)